=== PATIENT | female | born 1975 | race Caucasian/White ===

== ENCOUNTER → 2017-05-07 10:40 | Outpatient (CLI) | payer MEDICAID, SELFPAY ==
[2017-05-07 11:26] LABS: Amphetamine Urine VISTA NEGATIVE (<1000 ng/mL); Barbiturate Urine VISTA NEGATIVE (< 200 ng/mL); Benzodiazepine Urine VISTA NEGATIVE (< 200 ng/mL); Cocaine Urine VISTA NEGATIVE (< 300 ng/mL); Ecstacy Urine VISTA NEGATIVE (< 500 ng/mL); Methadone Urine VISTA NEGATIVE (< 300 ng/mL); PCP Urine VISTA NEGATIVE (< 25 ng/mL); THC Urine VISTA NEGATIVE (< 50 ng/mL); Vista UDS pH Range 5
== END ==
PROVIDERS: Family Provider Family Medicine; PCP Family Medicine; Visit Provider Anesthesiology
DX: F11.20 Opioid dependence, uncomplicated (principal)
CPT/HCPCS: 80307

== ENCOUNTER → 2017-12-31 11:20 | Outpatient (CLI) | payer MEDICAID, SELFPAY ==
[2017-12-31 12:26] LABS: Amphetamine Urine VISTA NEGATIVE (<1000 ng/mL); Barbiturate Urine VISTA NEGATIVE (< 200 ng/mL); Benzodiazepine Urine VISTA NEGATIVE (< 200 ng/mL); Cocaine Urine VISTA NEGATIVE (< 300 ng/mL); Ecstacy Urine VISTA NEGATIVE (< 500 ng/mL); Methadone Urine VISTA NEGATIVE (< 300 ng/mL); PCP Urine VISTA NEGATIVE (< 25 ng/mL); THC Urine VISTA NEGATIVE (< 50 ng/mL); Vista UDS pH Range 5
== END ==
PROVIDERS: Family Provider Family Medicine; PCP Family Medicine; Referring Provider Anesthesiology; Visit Provider Anesthesiology
DX: F11.20 Opioid dependence, uncomplicated (principal)
CPT/HCPCS: 80307

== ENCOUNTER 2018-01-20 14:30 | Outpatient (RCR) | payer MEDICAID, SELFPAY ==
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
--- NOTE | 2018-03-07 15:26 | HP.PTDCSUM ---
HP - PT D/C Summary It has been my pleasure to treat FARAZ TEJEDA under orders from Mayank Nolasco MD, for the diagnosis of CERVICAL DISC DEGENERATION ,CERVICAL DISC DISPLACEMENT MID CERVICAL,5-6 for a total of 6 visit(s). Discharge Date: 01/20/18 Please see the following information for a summary of their discharge status. - Subjective Subjective: Doing okay .pain about same. Plan for injections - Pain Right Neck Pain Intensity (Out of 10): 3 - Overall Improvement % Improvement: 40 - Objective Objective/Function: POSTURE: mild foward posture. CERVICICAL ROM: min loss. PALPATION: tender UT. NEURO: INTACT. MMT: 4/5 - Goals Goal 1:: Patient to be Independant with HEP Goal Progress: Progressing Goal 2:: Patient to be Independant with posture for ADL'S Goal Progress: Progressing Goal 3:: Patient decrease cervical pain by 50% or greater to improve function and ADL'S Goal Progress: Progressing Goal 4:: Patient to improve cervical ROM for function of recovery Goal Progress: Progressing Goal 5:: Patient alejandra ble to perform ADL's AND [place]SW[place] tasks with min limitations - Plan Plan: D/C EPIDURAL INJECTION - D/C Information Discharge Comments: RTD If there are questions or concerns regarding this patient's physical therapy, please feel free to call me at [phone]. Thank you for the referral of this patient. Sincerely, Benjamin Cook, PT,
== END 2018-01-20 19:00 | disposition home or self-care (01) ==
LOC: PT 14:30
PROVIDERS: Family Provider Family Medicine; PCP Family Medicine; Visit Provider Anesthesiology
DX: M50.320 Other cervical disc degeneration, mid-cervical region, unspecified level (principal); M50.220 Other cervical disc displacement, mid-cervical region, unspecified level; M50.222 Other cervical disc displacement at C5-C6 level
CPT/HCPCS: 97035; 97140; 97162

== ENCOUNTER 2018-03-11 13:11 | Day surgery (SDC) | payer MEDICAID, SELFPAY ==
[2018-03-11 13:45] VITALS: BP 126/65; PULSE 63; RESP 16; TEMP 36.4; O2SAT 100; BMI 45.2
--- NOTE | 2018-03-11 14:10 | RAD_ITS ---
PROCEDURE: FACET BLOCKS L4-S1. INDICATION: Female, 43 years old. Back pain. FLUOROSCOPY TIME (if supplied): (0:41) minutes/seconds RADIATION DOSAGE (If Supplied By Facility): CTDIvol = ( ) mGy, DLP = ( ) mGycm TECHNIQUE: Fluoroscopic assistance was provided to Dr. Nolasco. 3 intraprocedural fluoroscopic spot films are submitted. COMPARISON: 4 plain film views of the lumbar spine January 01, 2017; MRI lumbar spine March 26, 2017. FINDINGS: Spinal needles are seen passing through the soft tissues of the back to the areas of the right L3-4, L4-5, and L5-S1 facet complexes. RAD/Lumbar Spine 2 or 3 Views IMPRESSION: Fluoroscopic assistance for right facet blocks L4-S1. Correlation with procedural notes advised. Electronically Signed: Reg Holly MD at 16:32 EST , Service support ,
--- NOTE | 2018-03-11 14:45 | PCM.DC ---
- Discharge Diagnoses Current Active Problems: Lower back pain due to lumbar facet spondylosis Reason(s) for Visit for Discharge Instructions: Lumbar facet injection You will use the following diet at home:: No restrictions Your food should be the consistency of: Regular Your liquids should be the consistency of: Regular/Thin Discharge Activity: Return to Normal Activity May shower in (days): 1 May resume sexual activity in: No Restrictions Weight Bearing Status: Weight bearing as tolerated Call your doctor if your incision/area has: Continuous Slow Oozing, Sudden Increased Bleeding, Increased Pain/ Swelling, Increased Redness, Foul Smelling Discharge, Swelling at the incision site Call your doctor if you observe: Fever of 101 or Higher, Coldness, Increased Pain, Calf discomfort, Uncontrolled pain Suture Line Care: Avoid Pulling/Pushing, Avoid Pinching/Bending Remove Dressing in (days):: 1 Cleanse incision/area with: Soap & Water Allergies/Adverse Reactions: Allergies bupropion Allergy (Verified 04/22/17 10:03) Itching Medications to take at Discharge NIFEdipine [Procardia Xl] 30 mg PO QHS 12/14/14 Venlafaxine XR [Effexor Xr] mg PO BID 12/14/14 Atenolol [Tenormin (beta may)] 50 mg PO QHS 07/17/16 Clonazepam [Clonazepam Tab.Rapdis] 1 mg PO BID PRN 07/17/16 Omeprazole [Prilosec] 40 mg PO BID 07/17/16 Hydrocodone/Acetaminophen [[place] 5-325 Tablet] 1 each PO TID PRN 04/22/17 Primary Care Physician: Aftab Sevilla MD [Primary Care Provider] - Test Results: Test results from this visit will be discussed in further detail at your follow-up appointment, if applicable. Please Follow Up With: Mayank Nolasco MD
--- NOTE | 2018-03-11 15:00 | OP.PCM_ITS ---
Problem List (1) Spondylosis of lumbar region without myelopathy or radiculopathy Status: Acute (2) Spondylosis of lumbar region without myelopathy or radiculopathy Status: Acute Report of Operation Date of Procedure: 03/11/18 Pre-Operative Diagnosis: Lumbar facet spondylosis Post-Operative Diagnosis: Lumbar facet spondylosis Surgery/Procedure Performed:: Right L4-5, L5-S1 facet medial nerve branch block under fluoroscopy guidance Description of Surgical Findings:: Under sterile conditions. Patient placed in the prone position, pressure points were padded, patient was ready from the nursing and the anesthesia team. After identification of the side and the target area for the block under guided fluoroscopy, the entry site was marked with marking pen. I used Betadine for sterilization of the skin, sterile draping were applied. Using 25-gauge needle to infiltrate the skin with local anesthesia using preservative-free lidocaine 0.5% injected 2.5 mL at each site of entry. Using oblique fluoroscopy, accessed the right medial nerve branch supplying the [right] lumbar facets L4-5, L5-S1 using 22-gauge spinal needle. After confirmation of appropriate needle placement to the targeted area with AP and lateral fluoroscopy, injected 2.5 mL mixture of preservative-free Marcaine 0.5% and Kenalog [20] mg at each site. [place] was removed, pressure dressing were applied. Patient tolerated the procedure well and was taken to the recovery. Type of Anesthesia:: Local MAC, MAC, MAC/Supplemental Special Medications: Lidocaine 1% preservative-free. Bupivacaine 0.5% preservative-free. Kenalog preservative-free Description of Procedure: Right lumbar facet medial nerve branch block, see above - Complications None
[2018-03-11] MEDS: Triamcinolone Acetonide 40 MG/ML Vial (15:08)
[2018-03-11] MEDS: Bupivacaine 0.25% 30 ML Vial (15:08)
[2018-03-11 15:27] VITALS: BP 117/59; BP 126/55; PULSE 72; RESP 16; TEMP 36.6; O2SAT 100
[2018-03-11 15:32] VITALS: BP 119/71; BP 126/55; PULSE 68; RESP 16; O2SAT 100
[2018-03-11 15:36] VITALS: BP 119/73; BP 126/55; PULSE 67; RESP 16; O2SAT 99
[2018-03-11 15:40] VITALS: BP 126/55; BP 135/83; PULSE 69; RESP 16; TEMP 36.5; O2SAT 100
[2018-03-11 16:00] VITALS: BP 126/55
== END 2018-03-11 16:00 | disposition home or self-care (01) ==
LOC: SDC 13:11 → AC 13:21
PROVIDERS: Family Provider Family Medicine; PCP Family Medicine; Referring Provider Anesthesiology; Visit Provider Anesthesiology
PROC: 3E0T3BZ Introduction of Anesthetic Agent into Peripheral Nerves and Plexi, Percutaneous Approach (ICD-10-PCS; CPT 64493; principal; 2018-03-11 14:05)
DX: M47.816 Spondylosis without myelopathy or radiculopathy, lumbar region (principal); E66.1 Drug-induced obesity; Z79.891 Long term (current) use of opiate analgesic; M51.26 Other intervertebral disc displacement, lumbar region; G89.4 Chronic pain syndrome; M50.322 Other cervical disc degeneration at C5-C6 level; M50.122 Cervical disc disorder at C5-C6 level with radiculopathy; M50.222 Other cervical disc displacement at C5-C6 level; R05 Cough
CPT/HCPCS: 01935; 64493; 64483; 72100; J7120

== ENCOUNTER 2018-03-25 12:10 | Day surgery (SDC) | payer MEDICAID, SELFPAY ==
[2018-03-25 12:51] VITALS: BP 143/62; PULSE 86; RESP 16; TEMP 36.3; O2SAT 99; BMI 43.4
--- NOTE | 2018-03-25 13:20 | RAD_ITS ---
STUDY: X-RAY - LUMBAR SPINE REASON FOR EXAM: Female, 43 years old. Lumbar facet blocks. TECHNIQUE: 3 fluoroscopic spot view(s) of the lumbar spine were obtained. FLUOROSCOPY TIME: 21 seconds. COMPARISON: None FINDINGS: Fluoroscopic images were submitted, as radiology support for c-arm imaging in the operating room. This is not a diagnostic examination. Images are for documentation purposes only. RAD/Lumbar Spine 2 or 3 Views IMPRESSION: As above. Electronically Signed: Maxwell Escobedo MD at 1:03 EST , Service support ,
[2018-03-25] MEDS: Triamcinolone Acetonide 40 MG/ML Vial (14:23)
[2018-03-25] MEDS: Bupivacaine 0.25% 30 ML Vial (14:24)
[2018-03-25 14:33] VITALS: BP 127/68; BP 143/62; PULSE 68; RESP 16; TEMP 36; O2SAT 99
[2018-03-25 14:40] VITALS: BP 127/70; BP 143/62; PULSE 67; RESP 16; O2SAT 99
[2018-03-25 14:45] VITALS: BP 132/76; BP 143/62; PULSE 65; RESP 16; O2SAT 100
[2018-03-25 14:50] VITALS: BP 139/74; BP 143/62; PULSE 63; RESP 16; TEMP 36.2; O2SAT 100
--- NOTE | 2018-03-25 14:53 | DCINST_ITS ---
- Discharge Diagnoses Current Active Problems: Lower back pain due to lumbar facet spondylosis Reason(s) for Visit for Discharge Instructions: To receive left lumbar facet block for her lower back pain You will use the following diet at home:: No restrictions Your food should be the consistency of: Regular Discharge Activity: Return to Normal Activity Return to work on:: 03/30/18 May shower in (days): 1 May resume sexual activity in: No Restrictions Weight Bearing Status: Weight bearing as tolerated Call your doctor if your incision/area has: Continuous Slow Oozing, Sudden Increased Bleeding, Increased Pain/ Swelling, Foul Smelling Discharge Call your doctor if you observe: Coldness, Increased Pain, Uncontrolled pain Suture Line Care: Avoid Pulling/Pushing, Avoid Pinching/Bending Cleanse incision/area with: Soap & Water Allergies/Adverse Reactions: Allergies bupropion Allergy (Verified 03/25/18 12:46) Itching Medications to take at Discharge NIFEdipine [Procardia Xl] 30 mg PO QHS 12/14/14 Venlafaxine XR [Effexor Xr] 75 mg PO BID 12/14/14 Atenolol [Tenormin (beta may)] 50 mg PO QHS 07/17/16 Clonazepam [Clonazepam Tab.Rapdis] 1 mg PO DAILY 07/17/16 Omeprazole [Prilosec] 40 mg PO BID 07/17/16 Hydrocodone/Acetaminophen [[place] 5-325 Tablet] 1 each PO DAILY 04/22/17 Primary Care Physician: Aftab Sevilla MD [Primary Care Provider] - Test Results: Test results from this visit will be discussed in further detail at your follow- up appointment, if applicable. Please Follow Up With: Mayank Nolasco MD
--- NOTE | 2018-03-25 14:53 | PCM.OPRPT ---
Problem List (1) Spondylosis of lumbar region without myelopathy or radiculopathy Status: Acute (2) Spondylosis of lumbar region without myelopathy or radiculopathy Status: Chronic Report of Operation Date of Procedure: 03/25/18 Pre-Operative Diagnosis: Lumbar facet spondylosis Post-Operative Diagnosis: Same Surgery/Procedure Performed:: Left-sided lumbar facet medial nerve branch injection at the left L4-5-S1 under fluoroscopy guidance Description of Surgical Findings:: Left L4-5-S1 facets medial nerve branch injection Under sterile conditions. Patient placed in the prone position, pressure points were padded, patient was ready from the nursing and the anesthesia team. After identification of the side and the target area for the block under guided fluoroscopy, the entry site was marked with marking pen. I used Betadine for sterilization of the skin, sterile draping were applied. Using 25-gauge needle to infiltrate the skin with local anesthesia using preservative-free lidocaine 0.5% injected 2.5 mL at each site of entry. Using oblique fluoroscopy, accessed the right medial nerve branch supplying the left lumbar facets L4-5, L5-S1 using 22-gauge spinal needle. After confirmation of appropriate needle placement to the targeted area with AP and lateral fluoroscopy, injected 2.5 mL mixture of preservative-free Marcaine 0.5% and Kenalog [20] mg at each site. [place] was removed, pressure dressing were applied. Patient tolerated the procedure well and was taken to the recovery. Type of Anesthesia:: Local MAC Special Medications: Kenalog 80 mg. Bupivacaine 0.5 preservative-free. Lidocaine 1% preservative-free Specimen's removed: None Estimated Blood Loss (mL): None Description of Procedure: See above - Complications None
[2018-03-25 15:03] VITALS: BP 143/62
== END 2018-03-25 15:35 | disposition home or self-care (01) ==
LOC: SDC 12:11 → AC 12:13
PROVIDERS: Family Provider Family Medicine; PCP Family Medicine; Referring Provider Anesthesiology; Visit Provider Anesthesiology
PROC: 3E0T3BZ Introduction of Anesthetic Agent into Peripheral Nerves and Plexi, Percutaneous Approach (ICD-10-PCS; CPT 64484; principal; 2018-03-25 13:15)
DX: M47.816 Spondylosis without myelopathy or radiculopathy, lumbar region (principal); K21.9 Gastro-esophageal reflux disease without esophagitis; I10 Essential (primary) hypertension
CPT/HCPCS: 64484; 64483; 72100; J7120

== ENCOUNTER 2018-07-08 12:09 | Day surgery (SDC) | payer MEDICAID, SELFPAY ==
[2018-07-08 12:47] VITALS: BP 128/76; PULSE 66; RESP 18; TEMP 36.9; O2SAT 100; BMI 44.8
--- NOTE | 2018-07-08 13:45 | RAD_ITS ---
HISTORY: LUMBAR FACET BLOCK L4-S1 EXAM/TECHNIQUE: XR Spine Lumbar 2 or 3 Views: 3 views. COMPARISON: None. FINDINGS: # of images incl. paperwork: 4 3 fluoroscopic images from lumbar facet block procedure. [place] are seen extending toward the left facets of L4, L5 and S1. RAD/Lumbar Spine 2 or 3 Views IMPRESSION: Images from left facet block L4 S1. No apparent complication. at 2211 Reported and signed by: Otis Caceres MD Electronically Signed: Otis Caceres, at 22:10 EDT Tel , Service support ,
--- NOTE | 2018-07-08 14:07 | DCINST_ITS ---
- Discharge Diagnoses Current Active Problems: Lumbar spine axial pain due to lumbar facets arthritis and lumbar facet spondylosis Reason(s) for Visit for Discharge Instructions: Lumbar facets injection at the level of the right L4-5-S1 under fluoroscopy guidance You will use the following diet at home:: No restrictions Your food should be the consistency of: Regular Discharge Activity: Return to Normal Activity Return to work on:: 07/11/18 May shower in (days): 1 May resume sexual activity in: No Restrictions Weight Bearing Status: Weight bearing as tolerated, Toe touch weight bearing Call your doctor if your incision/area has: Continuous Slow Oozing, Sudden Increased Bleeding, Increased Pain/ Swelling, Increased Redness, Foul Smelling Discharge, Swelling at the incision site Call your doctor if you observe: Fever of 101 or Higher, Coldness, Increased Pain, Uncontrolled pain Suture Line Care: Avoid Pulling/Pushing, Avoid Pinching/Bending Remove Dressing in (days):: 1 Cleanse incision/area with: Soap & Water Allergies/Adverse Reactions: Allergies bupropion Allergy (Verified 07/08/18 12:54) Itching Medications to take at Discharge NIFEdipine [Procardia Xl] 30 mg PO QHS 12/14/14 Venlafaxine XR [Effexor Xr] 300 mg PO QHS 12/14/14 Atenolol [Tenormin (beta may)] 50 mg PO QHS 07/17/16 Clonazepam [Clonazepam Tab.Rapdis] 1 mg PO DAILY 07/17/16 Omeprazole [Prilosec] 40 mg PO BID 07/17/16 Hydrocodone/Acetaminophen [[place] 5-325 Tablet] 2 each PO QODAY 04/22/17 Primary Care Physician: Aftab Sevilla MD [Primary Care Provider] - Test Results: Test results from this visit will be discussed in further detail at your follow- up appointment, if applicable. Please Follow Up With: Mayank Nolasco MD
--- NOTE | 2018-07-08 14:07 | PCM.OPRPT ---
Problem List (1) Spondylosis of lumbar region without myelopathy or radiculopathy Status: Acute (2) Spondylosis of lumbar region without myelopathy or radiculopathy Status: Chronic Report of Operation Date of Procedure: 07/08/18 Pre-Operative Diagnosis: Lumbar facet joint spondylosis and lumbar facet arthropathy Post-Operative Diagnosis: Same Surgery/Procedure Performed:: Right-sided lumbar facets medial nerve branch injection at the level of the lumbar facets L4-5-S1 under fluoroscopy guidance Description of Surgical Findings:: Under sterile conditions. Patient placed in the prone position, pressure points were padded, patient was ready from the nursing and the anesthesia team. After identification of the side and the target area for the block under guided fluoroscopy, the entry site was marked with marking pen. I used Betadine for sterilization of the skin, sterile draping were applied. Using 25-gauge needle to infiltrate the skin with local anesthesia using preservative-free lidocaine 0.5% injected 2.5 mL at each site of entry. Using oblique fluoroscopy, accessed the right medial nerve branch supplying the [right] lumbar facets L4-5, L5-S1 using 22-gauge spinal needle. After confirmation of appropriate needle placement to the targeted area with AP and lateral fluoroscopy, injected 2.5 mL mixture of preservative-free Marcaine 0.5% and Kenalog [25] mg at each site. Total of 3 needles used and 3 sites injected for the medial nerve branch supplying the lumbar facets L4-5-S1 on the right side. [place] was removed, pressure dressing were applied. Patient tolerated the procedure well and was taken to the recovery. Type of Anesthesia:: Local MAC, MAC - Admit VTE Documentation VTE Pharm Prophylaxis ordered?: No
[2018-07-08] MEDS: Bupivacaine 0.25% 30 ML Vial (14:16)
[2018-07-08] MEDS: Triamcinolone Acetonide 40 MG/ML Vial ×2 (14:16)
[2018-07-08 14:25] VITALS: BP 106/59; BP 128/76; PULSE 58; RESP 18; TEMP 36.7; O2SAT 98
[2018-07-08 14:30] VITALS: BP 112/62; BP 128/76; PULSE 57; RESP 18; O2SAT 98
[2018-07-08 14:35] VITALS: BP 116/60; BP 128/76; PULSE 55; RESP 18; O2SAT 100
[2018-07-08 14:40] VITALS: BP 125/71; BP 128/76; PULSE 55; RESP 18; TEMP 36.6; O2SAT 100
[2018-07-08 14:56] VITALS: BP 128/76
== END 2018-07-08 15:04 | disposition home or self-care (01) ==
LOC: SDC 12:10 → AC 12:11
PROVIDERS: Family Provider Family Medicine; PCP Family Medicine; Referring Provider Anesthesiology; Visit Provider Anesthesiology
PROC: 3E0T3BZ Introduction of Anesthetic Agent into Peripheral Nerves and Plexi, Percutaneous Approach (ICD-10-PCS; CPT 64493; principal; 2018-07-08 13:40)
DX: M47.816 Spondylosis without myelopathy or radiculopathy, lumbar region (principal); G89.4 Chronic pain syndrome; M51.26 Other intervertebral disc displacement, lumbar region; M50.122 Cervical disc disorder at C5-C6 level with radiculopathy; F32.9 Major depressive disorder, single episode, unspecified; I10 Essential (primary) hypertension; M25.569 Pain in unspecified knee; M25.511 Pain in right shoulder; E66.1 Drug-induced obesity; Z68.41 Body mass index [BMI] 40.0-44.9, adult; Z79.891 Long term (current) use of opiate analgesic; Z79.899 Other long term (current) drug therapy
CPT/HCPCS: 64493; 64494; 64483; 72100; J7120

== ENCOUNTER 2018-07-15 14:30 | Outpatient (RCR) | payer MEDICAID, SELFPAY ==
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
--- NOTE | 2018-07-15 15:10 | HP.PTDCSUM ---
HP - PT D/C Summary It has been my pleasure to treat FARAZ TEJEDA under orders from Mayank Nolasco MD, for the diagnosis of NECK AND BACK PAIN. for a total of 5 visit(s). Discharge Date: 07/15/18 Please see the following information for a summary of their discharge status. - Subjective Subjective: PATIENT REPORTS SHE HAS TRIED TO FOLLOW ALL INSTRUCTIONS GIVEN BUT IT HASN'T SEEMED TO HELP ANYTHING. PATIENT DOES NOT WANT TO CONTINUE PT STATING I DON'T SEE NO REASON FOR IT - Pain R side of neck Pain Intensity (Out of 10): 5 LB Pain Intensity (Out of 10): 4 - Objective Objective/Function: UPON EXAM, THERE ARE NO SIGNIFICANT CHANGES SINCE INITIAL EVAL. PATIENT IS INDEP WITH A HEP THAT SHE CAN TOLERATE THOUGH. SHE DID BETTER WITH SITTING AND STANDING EX'S VS LYING. - Goals Goal 1:: DECREASE C/O NECK AND BACK PAIN Goal Progress: Not Progressing Goal 2:: IMPROVE SITTING, STANDING, WALKING READING, DRIVING, SLEEP, WORK AND RECREATIONAL FUNCTION Goal Progress: Not Progressing Goal 3:: INSTRUCT IN PROPHYLAXIS Goal Progress: Progressing - Plan Plan: D/C DUE TO LACK OF IMPROVEMENT. - D/C Information If there are questions or concerns regarding this patient's physical therapy, please feel free to call me at [phone]. Thank you for the referral of this patient. Sincerely, Minda Weber, PT, Cert MDT
== END 2018-07-15 19:00 | disposition home or self-care (01) ==
LOC: PT 14:30
PROVIDERS: Family Provider Family Medicine; PCP Family Medicine; Referring Provider Anesthesiology; Visit Provider Anesthesiology
DX: M54.2 Cervicalgia (principal); M54.5 Low back pain; M51.36 Other intervertebral disc degeneration, lumbar region
CPT/HCPCS: 97110; 97162; 97530

== ENCOUNTER 2018-07-22 11:27 | Day surgery (SDC) | payer MEDICAID, SELFPAY ==
[2018-07-22 12:17] VITALS: BP 155/88; PULSE 66; RESP 16; TEMP 36.7; O2SAT 100; BMI 43.9
--- NOTE | 2018-07-22 12:45 | RAD_ITS ---
PROCEDURE: Lumbar facet left side block L4-S1. DATE OF EXAMINATION: July 22, 2018. INDICATION: Female, 43 years old. Lumbar spine facet pain. PHYSICIAN: Gaurav FLUOROSCOPY TIME (if supplied): (0:12) minutes/seconds RADIATION DOSAGE (If Supplied By Facility): CTDIvol = ( ) mGy, DLP = ( ) mGycm CONSENT: The risks, benefits and alternatives to the procedure were explained to the patient, and the patient agreed to the procedure and signed the consent. PROCEDURE/TECHNIQUE 3, intraprocedural, fluoroscopic spot images of the lower lumbar spine. Images demonstrate needle placements with tips in appropriate location. A small amount of iodinated contrast may have been injected to validate needle tip placement. No significant incidental findings. RAD/Lumbar Spine 2 or 3 Views IMPRESSION: 3, intraprocedural, fluoroscopic spot images of the lower lumbar spine. Images demonstrate needle placements with tips in appropriate location. A small amount of iodinated contrast may have been injected to validate needle tip placement. No significant incidental findings. Comment: Fluoroscopy services provided for clinical procedure. Please refer to operating physician's procedure note for additional detail. Electronically Signed: Ajay Zamorano MD at 10:17 EDT , Service support ,
--- NOTE | 2018-07-22 14:13 | PCM.DC ---
- Discharge Diagnoses Current Active Problems: Lower back pain Reason(s) for Visit for Discharge Instructions: Lumbar facet joint injection L4-5-S1 to the left side You will use the following diet at home:: No restrictions Your food should be the consistency of: Regular Discharge Activity: Return to Normal Activity, No Restrictions Return to work on:: 07/25/18 May shower in (days): 1 May resume sexual activity in: No Restrictions Weight Bearing Status: Weight bearing as tolerated, Toe touch weight bearing Call your doctor if your incision/area has: Continuous Slow Oozing, Sudden Increased Bleeding, Increased Pain/ Swelling, Increased Redness, Foul Smelling Discharge, Swelling at the incision site Call your doctor if you observe: Fever of 101 or Higher, Coldness, Increased Pain, Calf discomfort, Uncontrolled pain Suture Line Care: Avoid Pulling/Pushing, Avoid Pinching/Bending Remove Dressing in (days):: 1 Cleanse incision/area with: Soap & Water Instructions: What Is Osteoarthritis?, Living with Osteoarthritis, Understanding Osteoarthritis, Osteoarthritis: Common Sites, Osteoarthritis: Coping with Pain, Osteoarthritis Medication, Osteoarthritis: Injections or Surgery, Osteoarthritis: Protecting Your Joints, Osteoarthritis: Exercise Allergies/Adverse Reactions: Allergies bupropion Allergy (Verified 07/08/18 12:54) Itching Medications to take at Discharge NIFEdipine [Procardia Xl] 30 mg PO QHS 12/14/14 Venlafaxine XR [Effexor Xr] 300 mg PO QHS 12/14/14 Atenolol [Tenormin (beta may)] 50 mg PO QHS 07/17/16 Clonazepam [Clonazepam Tab.Rapdis] 1 mg PO DAILY 07/17/16 Omeprazole [Prilosec] 40 mg PO BID 07/17/16 Hydrocodone/Acetaminophen [[place] 5-325 Tablet] 2 each PO QODAY 04/22/17 Primary Care Physician: Aftab Sevilla MD [Primary Care Provider] - Test Results: Test results from this visit will be discussed in further detail at your follow-up appointment, if applicable. Please Follow Up With: Mayank Nolasco MD
--- NOTE | 2018-07-22 14:16 | DCINST_ITS ---
- Discharge Diagnoses Current Active Problems: Lower back pain Reason(s) for Visit for Discharge Instructions: Lumbar facet joint injection L4-5-S1 to the left side You will use the following diet at home:: No restrictions Your food should be the consistency of: Regular Discharge Activity: Return to Normal Activity, No Restrictions Return to work on:: 07/25/18 May shower in (days): 1 May resume sexual activity in: No Restrictions Weight Bearing Status: Weight bearing as tolerated, Toe touch weight bearing Call your doctor if your incision/area has: Continuous Slow Oozing, Sudden Increased Bleeding, Increased Pain/ Swelling, Increased Redness, Foul Smelling Discharge, Swelling at the incision site Call your doctor if you observe: Fever of 101 or Higher, Coldness, Increased Pain, Calf discomfort, Uncontrolled pain Suture Line Care: Avoid Pulling/Pushing, Avoid Pinching/Bending Remove Dressing in (days):: 1 Cleanse incision/area with: Soap & Water Instructions: What Is Osteoarthritis?, Living with Osteoarthritis, Understanding Osteoarthritis, Osteoarthritis: Common Sites, Osteoarthritis: Coping with Pain, Osteoarthritis Medication, Osteoarthritis: Injections or Surgery, Osteoarthritis: Protecting Your Joints, Osteoarthritis: Exercise Allergies/Adverse Reactions: Allergies bupropion Allergy (Verified 07/08/18 12:54) Itching Medications to take at Discharge NIFEdipine [Procardia Xl] 30 mg PO QHS 12/14/14 Venlafaxine XR [Effexor Xr] 300 mg PO QHS 12/14/14 Atenolol [Tenormin (beta may)] 50 mg PO QHS 07/17/16 Clonazepam [Clonazepam Tab.Rapdis] 1 mg PO DAILY 07/17/16 Omeprazole [Prilosec] 40 mg PO BID 07/17/16 Hydrocodone/Acetaminophen [[place] 5-325 Tablet] 2 each PO QODAY 04/22/17 Primary Care Physician: Aftab Sevilla MD [Primary Care Provider] - Test Results: Test results from this visit will be discussed in further detail at your follow- up appointment, if applicable. Please Follow Up With: Mayank Nolasco MD
[2018-07-22] MEDS: Bupivacaine 0.25% 30 ML Vial (14:25)
[2018-07-22] MEDS: Triamcinolone Acetonide 40 MG/ML Vial ×2 (14:25)
--- NOTE | 2018-07-22 14:25 | PCM.OPRPT ---
Problem List (1) Low back pain Status: Acute (2) Low back pain Status: Acute (3) Spondylosis of lumbar region without myelopathy or radiculopathy Status: Acute (4) Spondylosis of lumbar region without myelopathy or radiculopathy Status: Chronic Report of Operation Date of Procedure: 07/22/18 Pre-Operative Diagnosis: Lumbar facet spondylosis and lumbar facet joints arthritis Post-Operative Diagnosis: Same Surgery/Procedure Performed:: Left-sided lumbar facets medial nerve branch block at the level of the lumbar facets L4-5 and L5-S1 under fluoroscopy guidance Description of Surgical Findings:: Insert facet blocks Under sterile conditions. Patient placed in the prone position, pressure points were padded, patient was ready from the nursing and the anesthesia team. After identification of the side and the target area for the block at the left lumbar facet region under guided fluoroscopy, the entry site was marked with marking pen. I used Betadine for sterilization of the skin, sterile draping were applied. Using 25-gauge needle to infiltrate the skin with local anesthesia using preservative-free lidocaine 0.5% injected 2.5 mL at each site of entry. Using oblique fluoroscopy, accessed the left medial nerve branch supplying the left lumbar facets left L4-5, L5-S1 using 22-gauge spinal needle. After confirmation of appropriate needle placement to the targeted area with AP and lateral fluoroscopy, injected 2.5 mL mixture of preservative-free Marcaine 0.5% and Kenalog [25] mg at each site. [place] was removed, pressure dressing were applied. Patient tolerated the procedure well and was taken to the recovery. Type of Anesthesia:: Local MAC Estimated Blood Loss (mL): None Description of Procedure: See above - Complications None
[2018-07-22 14:30] VITALS: BP 105/53; BP 155/88; PULSE 61; RESP 16; TEMP 36.5; O2SAT 97
[2018-07-22 14:35] VITALS: BP 113/62; BP 155/88; PULSE 59; RESP 16; O2SAT 96
[2018-07-22 14:40] VITALS: BP 120/69; BP 155/88; PULSE 52; RESP 16; O2SAT 95
[2018-07-22 14:45] VITALS: BP 127/74; BP 155/88; PULSE 58; RESP 16; TEMP 36.7; O2SAT 100
[2018-07-22 15:01] VITALS: BP 155/88
== END 2018-07-22 15:27 | disposition home or self-care (01) ==
LOC: SDC 11:28 → AC 11:29
PROVIDERS: Family Provider Family Medicine; PCP Family Medicine; Referring Provider Anesthesiology; Visit Provider Anesthesiology
PROC: 3E0T3BZ Introduction of Anesthetic Agent into Peripheral Nerves and Plexi, Percutaneous Approach (ICD-10-PCS; CPT 64520; principal; 2018-07-22 12:40)
DX: M47.816 Spondylosis without myelopathy or radiculopathy, lumbar region (principal); G89.4 Chronic pain syndrome; M51.26 Other intervertebral disc displacement, lumbar region; M50.122 Cervical disc disorder at C5-C6 level with radiculopathy; M25.511 Pain in right shoulder; E66.1 Drug-induced obesity; R05 Cough; M79.10 Myalgia, unspecified site; K21.9 Gastro-esophageal reflux disease without esophagitis; F32.9 Major depressive disorder, single episode, unspecified; Z68.41 Body mass index [BMI] 40.0-44.9, adult
CPT/HCPCS: 64520 ×2; 64483; 72100; J7120; J3490

== ENCOUNTER → 2018-11-25 12:36 | Outpatient (CLI) | payer MEDICAID, SELFPAY ==
[2018-11-25 13:52] LABS: Amphetamine Urine VISTA NEGATIVE (<1000 ng/mL); Barbiturate Urine VISTA NEGATIVE (< 200 ng/mL); Benzodiazepine Urine VISTA POSITIVE (< 200 ng/mL); Cocaine Urine VISTA NEGATIVE (< 300 ng/mL); Ecstacy Urine VISTA NEGATIVE (< 500 ng/mL); Methadone Urine VISTA NEGATIVE (< 300 ng/mL); THC Urine VISTA NEGATIVE (< 50 ng/mL); Vista UDS pH Range 6
[2018-11-25 13:53] LABS: PCP Urine VISTA NEGATIVE (< 25 ng/mL)
== END ==
PROVIDERS: Family Provider Family Medicine; PCP Family Medicine; Referring Provider Anesthesiology; Visit Provider Anesthesiology
DX: F11.20 Opioid dependence, uncomplicated (principal)
CPT/HCPCS: 80307

== ENCOUNTER 2018-12-30 10:39 | Day surgery (SDC) | payer MEDICAID, SELFPAY ==
[2018-12-30 11:02] VITALS: BP 154/89; PULSE 55; RESP 18; TEMP 36.8; O2SAT 100; BMI 41.6
[2018-12-30] MEDS: Lactated Ringers 1,000 ML 100 ML IV (11:17)
--- NOTE | 2018-12-30 12:44 | DCINST_ITS ---
- Discharge Diagnoses Current Active Problems: Lumbar spine back pain due to lumbar facet arthritis Reason(s) for Visit for Discharge Instructions: Right sided lumbar facet blocks at the level of the L3-4 and L4-5 You will use the following diet at home:: No restrictions Your food should be the consistency of: Regular Discharge Activity: Return to Normal Activity, No Restrictions May shower in (days): 1 May resume sexual activity in: No Restrictions Weight Bearing Status: Weight bearing as tolerated, Full weight bearing, Toe touch weight bearing, No weight bearing, - Call your doctor if your incision/area has: Continuous Slow Oozing, Sudden Increased Bleeding, Increased Pain/ Swelling, Increased Redness, Foul Smelling Discharge, Swelling at the incision site Call your doctor if you observe: Fever of 101 or Higher, Coldness, Increased Pain, Uncontrolled pain Suture Line Care: Avoid Pulling/Pushing, Avoid Pinching/Bending Remove Dressing in (days):: 1 Cleanse incision/area with: Soap & Water Instructions: What Is Osteoarthritis?, Understanding Osteoarthritis, Osteoarthritis: Coping with Pain, Living with Osteoarthritis, Osteoarthritis: Common Sites, Osteoarthritis: Exercise, Osteoarthritis: Tips for Daily Living, Osteoarthritis: Managing Pain Allergies/Adverse Reactions: Allergies bupropion Allergy (Verified 12/30/18 10:58) Itching Medications to take at Discharge NIFEdipine [Procardia Xl] 30 mg PO QHS 12/14/14 Venlafaxine XR [Effexor Xr] 300 mg PO QHS 12/14/14 Atenolol [Tenormin (beta may)] 50 mg PO QHS 07/17/16 Clonazepam [Clonazepam Tab.Rapdis] 1 mg PO DAILY 07/17/16 Omeprazole [Prilosec] 40 mg PO BID 07/17/16 Hydrocodone/Acetaminophen [[place] 5-325 Tablet] 2 each PO QODAY 04/22/17 Primary Care Physician: Aftab Sevilla MD [Primary Care Provider] - Test Results: Test results from this visit will be discussed in further detail at your follow- up appointment, if applicable. Please Follow Up With: Mayank Nolasco MD
--- NOTE | 2018-12-30 12:45 | PCM.OPRPT ---
Problem List (1) Low back pain Status: Acute (2) Low back pain Status: Acute (3) Spondylosis of lumbar region without myelopathy or radiculopathy Status: Acute (4) Spondylosis of lumbar region without myelopathy or radiculopathy Status: Chronic Report of Operation Date of Procedure: 12/30/18 Pre-Operative Diagnosis: Lumbar facets arthritis lumbar facet spondylosis Post-Operative Diagnosis: Same Surgery/Procedure Performed:: Right sided lumbar facet blocks at the level of the right side L3 [id number] Description of Surgical Findings:: Under sterile conditions. Patient placed in the prone position, pressure points were padded, patient was ready from the nursing and the anesthesia team. After identification of the side and the target area for the block under guided fluoroscopy, the entry site was marked with marking pen. I used Betadine for sterilization of the skin, sterile draping were applied. Using 25-gauge needle to infiltrate the skin with local anesthesia using preservative-free lidocaine 0.5% injected 2.5 mL at each site of entry. Using oblique fluoroscopy, accessed the right medial nerve branch supplying the [right] lumbar facets L3-4, L4-5 using 22-gauge spinal needle. After confirmation of appropriate needle placement to the targeted area with AP and lateral fluoroscopy, injected 2.5 mL mixture of preservative-free Marcaine 0.5% and Kenalog [20] mg at each site. [place] was removed, pressure dressing were applied. Patient tolerated the procedure well and was taken to the recovery. Type of Anesthesia:: MAC Special Medications: Bupivacaine 0.5%, lidocaine for local anesthesia 1%, Kenalog 80 mg - Complications None
--- NOTE | 2018-12-30 12:50 | RAD_ITS ---
STUDY: X-RAY - LUMBAR SPINE REASON FOR EXAM: Female, 43 years old. Facet block TECHNIQUE: 3 intraoperative view(s) of the lumbar spine were obtained. COMPARISON: None FINDINGS: 3 intraoperative views were performed as the patient has undergone blocks from L3 to L5. No intraoperative complication noted RAD/Lumbar Spine 2 or 3 Views IMPRESSION: L3-L5 blocks, intraoperative complications. Electronically Signed: Reg Ahuja MD at 15:54 EDT , Service support ,
[2018-12-30] MEDS: Triamcinolone Acetonide 40 MG/ML Vial (12:56)
[2018-12-30] MEDS: Bupivacaine 0.25% 30 ML Vial (12:59)
[2018-12-30 13:10] VITALS: BP 154/89; BP 155/85; PULSE 45; RESP 16; TEMP 36.4; O2SAT 97
[2018-12-30 13:15] VITALS: BP 154/89; BP 162/81; PULSE 45; RESP 16; O2SAT 97
[2018-12-30 13:20] VITALS: BP 154/89; BP 164/80; PULSE 45; RESP 16; O2SAT 98
[2018-12-30 13:25] VITALS: BP 154/89; BP 165/78; PULSE 45; RESP 16; TEMP 36.1; O2SAT 97
[2018-12-30 13:44] VITALS: BP 154/89
== END 2018-12-30 13:46 | disposition home or self-care (01) ==
LOC: SDC 10:40 → AC 10:41
PROVIDERS: Family Provider Family Medicine; PCP Family Medicine; Referring Provider Anesthesiology; Visit Provider Anesthesiology
PROC: 3E0T3BZ Introduction of Anesthetic Agent into Peripheral Nerves and Plexi, Percutaneous Approach (ICD-10-PCS; CPT 64493; principal; 2018-12-30 11:40)
DX: M47.816 Spondylosis without myelopathy or radiculopathy, lumbar region (principal); K21.9 Gastro-esophageal reflux disease without esophagitis; F32.9 Major depressive disorder, single episode, unspecified; I10 Essential (primary) hypertension
CPT/HCPCS: 01935; 64493; 64494; 64483; 72100; J7120

== ENCOUNTER 2019-01-06 11:33 | Day surgery (SDC) | payer MEDICAID, SELFPAY ==
[2019-01-06] VITALS (7 sets, daily range): BP systolic 101–114; BP diastolic 63–67; PULSE 50–54; RESP 14–16; TEMP 36.2–36.4; O2SAT 95–98; BMI 40.3
[2019-01-06] MEDS: Lactated Ringers 1,000 ML 100 ML IV (12:29)
--- NOTE | 2019-01-06 13:30 | RAD_ITS ---
STUDY: X-RAY - LUMBAR SPINE REASON FOR EXAM: Female, 43 years old. Facet block at L3-S1 TECHNIQUE: 5 intraoperative view(s) of the lumbar spine were obtained. COMPARISON: None FINDINGS: Localizing images demonstrate needles over the left facet of L3-S1. RAD/L/S Spine Min 4 Views IMPRESSION: Localizing images for facet block of the lumbar spine. Electronically Signed: Feroz Whitehead DO at 23:24 EDT Tel [phone], Service support ,
--- NOTE | 2019-01-06 14:14 | DCINST_ITS ---
- Discharge Diagnoses Current Active Problems: Her back pain due to lumbar facet spondylosis Reason(s) for Visit for Discharge Instructions: Left lumbar facet block You will use the following diet at home:: No restrictions Your food should be the consistency of: Regular Discharge Activity: Return to Normal Activity May shower in (days): 1 May resume sexual activity in: No Restrictions Weight Bearing Status: Weight bearing as tolerated Call your doctor if your incision/area has: Continuous Slow Oozing, Sudden Increased Bleeding, Increased Pain/ Swelling, Increased Redness, Foul Smelling Discharge, Swelling at the incision site Call your doctor if you observe: Fever of 101 or Higher, Coldness, Increased Pain, Calf discomfort, Uncontrolled pain Suture Line Care: Avoid Pulling/Pushing, Avoid Pinching/Bending Remove Dressing in (days):: 1 Cleanse incision/area with: Soap & Water Allergies/Adverse Reactions: Allergies bupropion Allergy (Verified 12/30/18 10:58) Itching Medications to take at Discharge NIFEdipine [Procardia Xl] 30 mg PO QHS 12/14/14 Venlafaxine XR [Effexor Xr] 300 mg PO QHS 12/14/14 Atenolol [Tenormin (beta may)] 50 mg PO QHS 07/17/16 Clonazepam [Clonazepam Tab.Rapdis] 1 mg PO DAILY 07/17/16 Omeprazole [Prilosec] 40 mg PO BID 07/17/16 Hydrocodone/Acetaminophen [[place] 5-325 Tablet] 2 each PO QODAY 04/22/17 Primary Care Physician: Aftab Sevilla MD [Primary Care Provider] - Test Results: Test results from this visit will be discussed in further detail at your follow- up appointment, if applicable. Please Follow Up With: Mayank Nolasco MD
--- NOTE | 2019-01-06 14:15 | PCM.OPRPT ---
Problem List (1) Low back pain Status: Acute (2) Low back pain Status: Acute (3) Spondylosis of lumbar region without myelopathy or radiculopathy Status: Acute (4) Spondylosis of lumbar region without myelopathy or radiculopathy Status: Chronic Report of Operation Date of Procedure: 01/06/19 Pre-Operative Diagnosis: Lumbar facet spondylosis Post-Operative Diagnosis: Lumbar facet spondylosis Surgery/Procedure Performed:: Left-sided lumbar facet medial nerve branch blocks at the level of the L3-4 L4-5 L5-S1 under fluoroscopy guidance Description of Surgical Findings:: Under sterile conditions. Patient placed in the prone position, pressure points were padded, patient was ready from the nursing and the anesthesia team. After identification of the side and the target area for the block under guided fluoroscopy, the entry site was marked with marking pen. I used Betadine for sterilization of the skin, sterile draping were applied. Using 25-gauge needle to infiltrate the skin with local anesthesia using preservative-free lidocaine 0.5% injected 2.5 mL at each site of entry. Using oblique fluoroscopy, accessed the right medial nerve branch supplying the left lumbar facets L3-4, L4-5, L5-S1 using 22-gauge spinal needle. After confirmation of appropriate needle placement to the targeted area with AP and lateral fluoroscopy, injected 2.5 mL mixture of preservative-free Marcaine 0.5% and Kenalog [20] mg at each site. [place] was removed, pressure dressing were applied. Patient tolerated the procedure well and was taken to the recovery. Type of Anesthesia:: MAC - Complications None
[2019-01-06] MEDS: Triamcinolone Acetonide 40 MG/ML Vial (14:24)
[2019-01-06] MEDS: Bupivacaine 0.25% 30 ML Vial (14:26)
== END 2019-01-06 15:30 | disposition home or self-care (01) ==
LOC: SDC 11:33 → ACINP 11:35 → AC 11:45
PROVIDERS: Family Provider Family Medicine; PCP Family Medicine; Referring Provider Anesthesiology; Visit Provider Anesthesiology
PROC: 3E0T3BZ Introduction of Anesthetic Agent into Peripheral Nerves and Plexi, Percutaneous Approach (ICD-10-PCS; CPT 64493; principal; 2019-01-06 13:25)
DX: M47.816 Spondylosis without myelopathy or radiculopathy, lumbar region (principal); F41.9 Anxiety disorder, unspecified; F32.9 Major depressive disorder, single episode, unspecified; K21.9 Gastro-esophageal reflux disease without esophagitis; Z79.899 Other long term (current) drug therapy; I10 Essential (primary) hypertension; G89.29 Other chronic pain; J45.909 Unspecified asthma, uncomplicated; E11.9 Type 2 diabetes mellitus without complications; I25.10 Atherosclerotic heart disease of native coronary artery without angina pectoris
CPT/HCPCS: 64493; 64494; 64495; 64483; 72110; J7120

== ENCOUNTER 2019-02-03 12:22 | Day surgery (SDC) | payer MEDICAID, SELFPAY ==
[2019-01-06 12:14] VITALS: BMI 40.3
[2019-02-03] VITALS (7 sets, daily range): BP systolic 120–138; BP diastolic 71–89; PULSE 52–61; RESP 16; TEMP 36.3–36.7; O2SAT 97–100; BMI 39.4
[2019-02-03] MEDS: Lactated Ringers 1,000 ML 100 ML IV (13:02)
--- NOTE | 2019-02-03 14:05 | RAD_ITS ---
STUDY: X-RAY - CERVICAL SPINE REASON FOR EXAM: Female, 44 years old. Cervical epidural block at C6-7 TECHNIQUE: 4 view(s) of the cervical spine were obtained. COMPARISON: None FINDINGS: Fluoroscopic spot images demonstrate needle localization over the C6 level. RAD/Spine 1 View Any Level IMPRESSION: Needle localization directly over the C6 level. Electronically Signed: Fátima Todd MD at 15:42 EDT , Service support ,
--- NOTE | 2019-02-03 14:09 | DCINST_ITS ---
- Discharge Diagnoses Current Active Problems: Cervical spine pain, cervical radiculopathy Reason(s) for Visit for Discharge Instructions: Receiving cervical epidural injection for her neck pain You will use the following diet at home:: No restrictions Your food should be the consistency of: Regular Discharge Activity: Return to Normal Activity, No Restrictions May shower in (days): 1 May resume sexual activity in: No Restrictions Weight Bearing Status: Weight bearing as tolerated Call your doctor if your incision/area has: Continuous Slow Oozing, Sudden Increased Bleeding, Increased Pain/ Swelling, Increased Redness, Foul Smelling Discharge, Swelling at the incision site Call your doctor if you observe: Fever of 101 or Higher, Coldness, Increased Pain, Numbness or Tingling, Calf discomfort, Uncontrolled pain Suture Line Care: Avoid Pulling/Pushing, Avoid Pinching/Bending Remove Dressing in (days):: 1 Cleanse incision/area with: Soap & Water Allergies/Adverse Reactions: Allergies bupropion Allergy (Verified 02/03/19 12:40) Itching Medications to take at Discharge NIFEdipine [Procardia Xl] 30 mg PO QHS 12/14/14 Venlafaxine XR [Effexor Xr] 300 mg PO QHS 12/14/14 Atenolol [Tenormin (beta may)] 50 mg PO QHS 07/17/16 Clonazepam [Clonazepam Tab.Rapdis] 1 mg PO DAILY 07/17/16 Omeprazole [Prilosec] 40 mg PO BID 07/17/16 Hydrocodone/Acetaminophen [[place] 5-325 Tablet] 2 each PO DAILY PRN 04/22/17 Primary Care Physician: Aftab Sevilla MD [Primary Care Provider] - Test Results: Test results from this visit will be discussed in further detail at your follow- up appointment, if applicable. Please Follow Up With: Mayank Nolasco MD
--- NOTE | 2019-02-03 14:11 | PCM.OPRPT ---
Problem List (1) Cervical disc disorder with radiculopathy of mid-cervical region Status: Acute (2) Mid-cervical disc disorder, unspecified level Status: Acute (3) Other cervical disc degeneration, mid-cervical region, unspecified level Status: Acute (4) Other cervical disc degeneration, mid-cervical region, unspecified level Status: Acute (5) Radiculopathy, cervical region Status: Acute (6) Radiculopathy, cervical region Status: Acute Report of Operation Date of Procedure: 02/03/19 Pre-Operative Diagnosis: Cervical degenerative disc disease with cervical radiculopathy due to cervical disc disorders Post-Operative Diagnosis: Same Surgery/Procedure Performed:: Cervical epidural steroid injection under fluoroscopy guidance Description of Surgical Findings:: cervical epidural Under sterile conditions. Patient placed in the prone position, pressure points were padded, patient was ready from the nursing and the anesthesia team. After identification of the side and the target area for the block under guided fluoroscopy, the entry site in the posterior cervical area at the level of the C6-7 identified and marked was marked with marking pen. I used Betadine for sterilization of the skin, sterile draping were applied. Using 25-gauge needle to infiltrate the skin with local anesthesia using preservative-free lidocaine 0.5% injected 2.5 mL at site of entry. Using guided fluoroscopy, accessed the the posterior cervical epidural space using 20-gauge Touhy needles under midline approach, accessed the site was assisted with lateral fluoroscopy, followed by using [id number] technique using preservative-free normal saline, negative aspiration of CSF and blood. Injected contrast solution 1 mL under live fluoroscopy which showed good spread of the contrast to the posterior cervical epidural space and to the targeted area of the injection at C6-7. Injected [3] mL of mixture of preservative-free lidocaine and Kenalog [80] mg for the procedure which showed appropriate spread in the epidural space. [place] was removed, pressure dressing were applied. Neurological exam was intact after the procedure, patient tolerated the procedure well and was taken to the recovery. Type of Anesthesia:: Local MAC Special Medications: Lidocaine preservative-free 0.5%, preservative-free normal saline, Kenalog 80 mg - Complications No complication
[2019-02-03] MEDS: Triamcinolone Acetonide 40 MG/ML Vial (14:20)
== END 2019-02-03 15:00 | disposition home or self-care (01) ==
LOC: SDC 12:23 → AC 12:25
PROVIDERS: Family Provider Family Medicine; PCP Family Medicine; Referring Provider Anesthesiology; Visit Provider Anesthesiology
PROC: 3E0S3BZ Introduction of Anesthetic Agent into Epidural Space, Percutaneous Approach (ICD-10-PCS; CPT 62320; principal; 2019-02-03 13:40)
DX: M50.123 Cervical disc disorder at C6-C7 level with radiculopathy (principal); M25.569 Pain in unspecified knee; M25.511 Pain in right shoulder; E66.1 Drug-induced obesity; R05 Cough; M79.10 Myalgia, unspecified site; M50.320 Other cervical disc degeneration, mid-cervical region, unspecified level; M50.120 Mid-cervical disc disorder, unspecified level; M50.322 Other cervical disc degeneration at C5-C6 level; M50.222 Other cervical disc displacement at C5-C6 level; M50.122 Cervical disc disorder at C5-C6 level with radiculopathy; M51.26 Other intervertebral disc displacement, lumbar region; M47.816 Spondylosis without myelopathy or radiculopathy, lumbar region; G89.4 Chronic pain syndrome; Z79.891 Long term (current) use of opiate analgesic
CPT/HCPCS: 01922; 62321; 64490; 72020; J7120

== ENCOUNTER 2019-06-15 09:51 | Emergency (ER) | payer MEDICAID, SELFPAY ==
[2019-02-03 12:48] VITALS: BMI 39.4
[2019-06-15 09:52] VITALS: BP 134/80; PULSE 73; RESP 18; TEMP 36.9; O2SAT 99; BMI 39.4
--- NOTE | 2019-06-15 10:13 | ED.DCSUM_ITS ---
History of Present Illness Chief Complaint: Chest Other Informant: Patient Onset: Days Context: Gradual Onset Timing: Continuous Current Severity: Moderate Maximum Severity: Moderate Narrative: The patient is a 44-year-old female that presents to the emergency department sore throat. She states she had a for the past 2 days. She states last night, she described more burning pain in her throat. She states it hurts to swallow, but she is still able to swallow without issue. She does not think she is had fever. She describes a burning in her central chest. Patient is otherwise been in her normal state of health. She denies any new medications. She does have multiple children, but cannot recall any definitive sick exposure. Prior similar symptoms: No Recent Illness/Hospitalization: No Past Medical History - Allergies and Home Meds Allergies/Adverse Reactions: Allergies bupropion Allergy (Verified 06/15/19 09:54) Itching Primary Care Physician: Aftab Sevilla MD [Primary Care Provider] - Prior records reviewed: Yes Past Medical History: - - GERD, anxiety Surgical History: noncontributory Smoking Status: Never smoker Review of Systems General: Denies: Chills, Fever, Sweats Eyes: Denies: Visual changes - bilaterally, Diplopia ENT: Reports: Sore throat. Denies: Rhinorrhea Cardiovascular: Denies: Chest pain, Palpitations Respiratory: Denies: Dyspnea, Cough, Dyspnea on exertion Gastrointestinal: Denies: Abdominal pain, Nausea, Vomiting, Diarrhea, Melena, Hematochezia Genitourinary: Denies: Dysuria, Hematuria, Frequency Musculoskeletal: Denies: Back pain, Extremity Pain Skin: Denies: Rash, Wounds Neurological: Denies: Headache, Weakness, Numbness Physical Exam Vital Signs/Narrative: Vital Signs Temp Pulse Resp BP Pulse Ox 06/15/19 09:52 98.4 F 73 18 134/80 H 99 Inital Vital Signs reviewed: Yes General: Well nourished, Well developed, No Acute Distress Head: Normocephalic, Atraumatic Eyes: Perrl, EOMI ENT: Moist mucous membranes, No rhinorrhea, - - Vesicular lesions in the posterior oropharynx. Uvula midline. No evidence of retropharyngeal or peritonsillar abscess. Neck: Supple, Nontender Cardiovascular: Regular rate, Regular rhythm, No murmurs Respiratory: No distress, CTA bilaterally, Chest nontender Abdomen: Soft, Nontender, Nondistended, Normal bowel sounds Back: Nontender, Normal Inspection Extremities: Nontender, No edema Skin: Normal color, No rash Neurological: Alert, Oriented x3, Cranial nerves II-XII grossly intact, Normal Strength, Normal Sensation Psychological: Normal affect, Normal Mood Diagnostic/Tx/Re-eval - Medical Decision Making The patient presents to the emergency department with herpangina. She has no trismus or stridor. There is no evidence of abscess. She is given Decadron. She is also given a GI cocktail. I did dormitory counselor her on supportive care as this is likely viral. Again, she has no evidence of abscess. She has no trismus or stridor. I do not feel that imaging is necessary. The patient will be treated with BMX next for comfort. She will be discharged home. Impression 1. Herpangina ED Disposition - Plan for ED Patient: Instructions: PHARYNGITIS, Viral Prescriptions: Bmx Liquid 10 ml PO Q6H PRN PRN #180 ml PRN Reason: Sore Throat Prescription Printed Referrals: Aftab Sevilla MD [Primary Care Provider] -
[2019-06-15] MEDS: Mag Hydrox/Al Hydrox/Simeth 30 ML UDC PO (10:36)
[2019-06-15] MEDS: dexAMETHasone 10 MG/ML Vial PO.IVFORM (10:36)
--- NOTE | 2019-06-15 13:58 | ED.VISSUMM ---
- ER Visit Summary Date of Service: 06/15/19 Chief Complaint: [] History of Present Illness: The patient is a 44 F [] Physical Examination: [] Test Results: [] Emergency Department Course and Treatment: [] Treatment Plan: [] Disposition: [] Impression: [] This note was generated with [employer] dictation software. It may contain incorrect words, spelling, and punctuation that were not noted in review of the chart prior to signing ED Disposition - Plan for ED Patient: Disposition: Home or Assisted Living Instructions: PHARYNGITIS, Viral Prescriptions: Bmx Liquid 10 ml PO Q6H PRN PRN #180 ml PRN Reason: Sore Throat Prescription Printed Lidocaine 2% Viscous [Xylocaine Viscous] 15 ml PO Q4H PRN #240 ml PRN Reason: Sore Throat Prescription Printed Referrals: Aftab Sevilla MD [Primary Care Provider] -
== END 2019-06-15 11:26 | disposition home or self-care (01) ==
LOC: ED 10:34
PROVIDERS: Emergency Provider Emergency Medicine; PCP Family Medicine
DX: B08.5 Enteroviral vesicular pharyngitis (principal); K21.9 Gastro-esophageal reflux disease without esophagitis; F41.9 Anxiety disorder, unspecified
CPT/HCPCS: 99283

== ENCOUNTER 2019-08-23 17:53 | Emergency (ER) | payer MEDICAID, SELFPAY ==
[2019-08-23 17:54] VITALS: BP 149/95; PULSE 76; RESP 16; TEMP 36.2; BMI 41.0
--- NOTE | 2019-08-23 18:34 | ED.VIS.GEN ---
History of Present Illness Chief Complaint: Abd Pain Informant: Patient Narrative: Intermittent worsening epigastric abdominal pain for the past 2 months, however today worsening. Has chronic epigastric pain states calm down in 2013, she has had endoscopies in the past. Currently has new physician did have endoscopy 2 months ago for which she thinks it was in [place] upper and lower stating there is no acute findings she has internal hemorrhoids with intermittent lower GI bleed. Denies any melena. She is on omeprazole 40 mg twice a day. No chest pains or shortness of breath. Intermittent alcohol denies history of pancreatitis. Prior similar symptoms: Yes Past Medical History - Allergies and Home Meds Allergies/Adverse Reactions: Allergies bupropion Allergy (Verified 06/15/19 09:54) Itching Primary Care Physician: Aftab Sevilla MD [Primary Care Provider] - Past Medical History: - - Chronic back pain, chronic epigastric pain Surgical History: noncontributory, cholecystectomy Smoking Status: Never smoker Review of Systems General: Denies: Chills, Fever, Sweats Eyes: Denies: Visual changes - bilaterally, Diplopia ENT: Denies: Rhinorrhea, Sore throat Cardiovascular: Denies: Chest pain, Palpitations Respiratory: Denies: Dyspnea, Cough, Dyspnea on exertion Gastrointestinal: Reports: Abdominal pain. Denies: Nausea, Vomiting, Diarrhea, Melena, Hematochezia Genitourinary: Denies: Dysuria, Hematuria, Frequency Musculoskeletal: Denies: Back pain, Extremity Pain Skin: Denies: Rash, Wounds Neurological: Denies: Headache, Weakness, Numbness Physical Exam Vital Signs/Narrative: Vital Signs Temp Pulse Resp BP 08/23/19 17:54 97.2 F L 76 16 149/95 H Inital Vital Signs reviewed: Yes General: Well nourished, Well developed, No Acute Distress Head: Normocephalic, Atraumatic Eyes: Perrl, EOMI ENT: Moist mucous membranes, No rhinorrhea Neck: Supple, Nontender Cardiovascular: Regular rate, Regular rhythm, No murmurs Respiratory: No distress, CTA bilaterally, Chest nontender Abdomen: Soft, Nondistended, Normal bowel sounds, - - Mild epigastric tenderness no guarding or rebound. Negative Cunningham's or McBurney's tenderness. Back: Nontender, Normal Inspection Extremities: Nontender, No edema Skin: Normal color, No rash Neurological: Alert, Oriented x3, Cranial nerves II-XII grossly intact, Normal Strength, Normal Sensation Psychological: Normal affect, Normal Mood Diagnostic/Tx/Re-eval Abnormal Lab Results 08/23/19 08/23/19 18:47 18:47 WBC 8.4 RBC 4.53 Hgb 13.2 Hct 40.0 MCV 88.3 MCH 29.1 MCHC 33.0 RDW Std Deviation 41.0 RDW Coeff of Christiano 12.7 Plt Count 177 MPV 10.2 Immature Gran % (Auto) 0.500 Neut % (Auto) 82.3 H Lymph % (Auto) 13.9 L [place] % (Auto) 3.1 Eos % (Auto) 0.2 Baso % (Auto) 0.0 Absolute Neuts (auto) 6.9 Absolute Lymphs (auto) 1.17 Nucleated RBC % 0 Sodium 139 Potassium 3.9 Chloride 105 Carbon Dioxide 28.0 Anion Gap 6 BUN 12 Creatinine 0.92 Estim Creat Clear Calc 66.68 Est GFR (MDRD) Af Amer 85 Est GFR (MDRD) Non-Af 70 BUN/Creatinine Ratio 13.1 Glucose 136 H Calcium 8.7 Total Bilirubin 0.70 AST 128 H ALT 53 Alkaline Phosphatase 159 H Total Protein 7.1 Albumin 3.7 Globulin 3.4 Albumin/Globulin Ratio 1.1 Lipase 206 - Medical Decision Making Patient vital signs stable nonsurgical abdomen. Abdominal labs were normal, she given GI cocktail reported no improvement. I do not feel images are necessary. She reports to me when she gets the pain dose symptoms stays away for a while. Discussed with her her dose one time in the ED, she understands no prescriptions, she will follow-up with her GI doctor as an outpatient. All questions were answered. ED Disposition - Plan for ED Patient: Disposition: Home or Assisted Living Diagnosis: Epigastric abdominal pain Instructions: ED Abdominal Pain Unkn Cause Fem Referrals: Aftab Sevilla MD [Primary Care Provider] - 3-5 Days if not improving
[2019-08-23] MEDS: Mag Hydrox/Al Hydrox/Simeth 30 ML UDC PO (18:53)
[2019-08-23 18:58] LABS: Absolute Lymphocyte Count 1.17 X10^3/uL (0.83-4.51); Absolute Neutrophil Count 6.9 X10^3/uL (2.0-7.7); Eosinophil# 0.02 X10^3/uL; Eosinophils% 0.2 % (0-5); Hemoglobin 13.2 g/dL (12.0-15.0); Lymphocyte # 1.17 X10^3/ul (4.0); Lymphocyte % 13.9 % (19-41); Mean Corpuscular Hgb 29.1 pg (27.0-32.0); Mean Corpuscular Volume 88.3 fL (81-99); Mean Platelet Vol. 10.2 fl (6.2-12.0); Monocyte# 0.26 X10^3/uL; Monocyte% 3.1 % (0-10); NRBC Flagged by Analyzer 0 % (0-5); Neutrophil # 6.93 X10^3/uL (2.7-7.7); Neutrophil % 82.3 % (47-70); Platelet Count 177 K/mm3 (150-450); RBC Distribution Width CV 12.7 % (11.6-14.6); Red Blood Count 4.53 M/mm3 (4.2-5.4); White Blood Count 8.4 K/mm3 (4.4-11.0)
[2019-08-23 19:14] LABS: ALB/GLOB Ratio 1.1 RATIO (0.9-2.4); AST(SGOT) 128 U/L (15-37); Alanine Aminotransfer ALT/SGPT 53 U/L (13-56); Albumin, Serum 3.7 g/dL (3.2-5.0); Alkaline Phosphatase 159 U/L (45-117); Anion Gap 6 (5-15); BUN 12 mg/dL (7-18); BUN/Creat Ratio 13.1 RATIO (10-20); Calcium,Total 8.7 mg/dL (8.5-10.1); Chloride 105 mmol/L (98-107); Creatinine, Serum 0.92 mg/dL (0.55-1.02); EST Glomerular Filtration Rate 70 mL/min (>60); Est Glom Filt Rate - Afr Amer 85 mL/min (>60); Estimated Creatinine Clearance 66.68 ml/min; Globulin 3.4 g/dL (2.2-4.2); Glucose 136 mg/dL (74-106); Lipase 206 U/L (73-393); Potassium 3.9 mmol/L (3.5-5.1); Protein, Total 7.1 g/dL (6.4-8.2); Sodium Level 139 mmol/L (136-145)
[2019-08-23] MEDS: Morphine 4 MG/ML Syringe IV (19:41)
[2019-08-23 20:12] VITALS: PULSE 78; O2SAT 98
== END 2019-08-23 20:13 | disposition home or self-care (01) ==
LOC: ED 19:42
PROVIDERS: Emergency Provider Emergency Medicine; PCP Family Medicine
DX: R10.13 Epigastric pain (principal); G89.29 Other chronic pain; M54.9 Dorsalgia, unspecified
CPT/HCPCS: 80053; 83690; 85025; 96374; 99284; A4216

== ENCOUNTER → 2019-11-10 14:24 | Outpatient (CLI) | payer MEDICAID, SELFPAY ==
--- NOTE | 2019-11-10 14:30 | RAD_ITS ---
STUDY: X-RAY - PELVIS AND RIGHT HIP REASON FOR EXAM: Female, 44 years old. PAIN TECHNIQUE: 3 views of the pelvis and hip. COMPARISON: None. FINDINGS: There is a non-specific bowel gas pattern. Normal visualized soft tissue structures. Normal bilateral iliac wings, sacroiliac joints and visualized sacrum. Normal bilateral superior and inferior pubic rami. Normal pubic symphysis. Normal bilateral ischial tuberosities. Normal visualized femoral head. Normal acetabulum. Normal hip joint. RAD/HIP, UNI W/ Pelvis 2-3 Views IMPRESSION: Normal x-ray examination of the pelvis and hip. Electronically Signed: Terrance James, at 15:36 EDT , Service support ,
--- NOTE | 2019-11-10 14:30 | RAD_ITS ---
STUDY: X-RAY - RIGHT KNEE REASON FOR EXAM: Female, 44 years old. PAIN TECHNIQUE: 4 view(s) of the knee. COMPARISON: None. FINDINGS: Normal visualized distal femur. Normal visualized proximal tibia and fibula. Normal proximal tibiofibular articulation. Normal medial femorotibial compartment. Normal lateral femorotibial compartment. Normal patellofemoral articulation. The soft tissue structures are unremarkable. RAD/Knee 4 or More Views IMPRESSION: Normal x-ray examination of the knee. Electronically Signed: Terrance James, at 15:35 EDT , Service support ,
== END ==
PROVIDERS: PCP Family Medicine; Referring Provider Anesthesiology; Visit Provider Anesthesiology
DX: M25.561 Pain in right knee (principal); M25.551 Pain in right hip
CPT/HCPCS: 73502; 73564

== ENCOUNTER 2020-04-26 11:11 | Day surgery (SDC) | payer MEDICAID, SELFPAY ==
[2020-04-26 11:51] VITALS: BP 146/73; PULSE 62; RESP 16; TEMP 36.6; O2SAT 98; BMI 43.9
[2020-04-26] MEDS: Lactated Ringers 1,000 ML 100 ML IV (12:09)
--- NOTE | 2020-04-26 12:30 | RAD_ITS ---
PROCEDURE: Right L1-S1 facet joint block. DATE OF EXAMINATION: 04/26/2020. INDICATION: Female, 45 years old. Chronic low back pain. FLUOROSCOPY TIME (if supplied): (18.7 seconds) minutes/seconds . 5 images were submitted. Intraoperative imaging provided for right L1-S1 facet joint block. RAD/Lumbar Spine 2 or 3 Views IMPRESSION: Intraoperative imaging provided for right L1-S1 facet joint block. Electronically Signed: Terrance James MD at 14:20 EST , Service support ,
[2020-04-26] MEDS: Bupivacaine 0.25% 30 ML Vial (13:00)
[2020-04-26] MEDS: Lidocaine 1% (30 ml sdv) 30 ML Vial (13:00)
[2020-04-26] MEDS: Triamcinolone Acetonide 40 MG/ML Vial (13:00)
--- NOTE | 2020-04-26 13:05 | DCINST_ITS ---
- Discharge Diagnoses Current Active Problems: Lower back pain exacerbation You will use the following diet at home:: No restrictions, Regular, Other - Dietary management, low-carb, avoid inflammatory diet like red meat and heavy carbohydrates, encouraged renal dietary fibers Your food should be the consistency of: Regular, Soft (bite-sized & easy to chew/swallow) Your liquids should be the consistency of: Regular/Thin, Sophia Thick, Pudding Thick Discharge Activity: Return to Normal Activity, No Restrictions Return to work on:: 04/29/20 May shower in (days): 1 May resume sexual activity in: No Restrictions Weight Bearing Status: Weight bearing as tolerated Keep extremity elevated above heart level: Operative Extremity Call your doctor if your incision/area has: Continuous Slow Oozing, Sudden Increased Bleeding, Increased Pain/ Swelling, Increased Redness, Foul Smelling Discharge, Swelling at the incision site Call your doctor if you observe: Fever of 101 or Higher, Coldness, Increased Pain, Numbness or Tingling, Uncontrolled pain Suture Line Care: Avoid Pulling/Pushing, Avoid Pinching/Bending Remove Dressing in (days):: 1 Cleanse incision/area with: Soap & Water Instructions: What Is Osteoarthritis?, Understanding Osteoarthritis, Osteoarthritis: Coping with Pain, Osteoarthritis: Exercise, Osteoarthritis: Managing Pain, ED Back Exercises, Lumbar Allergies/Adverse Reactions: Allergies bupropion Allergy (Verified 04/26/20 11:48) Itching Medications to take at Discharge NIFEdipine [Procardia Xl] 30 mg PO QHS 12/14/14 Venlafaxine XR [Effexor Xr] 300 mg PO QHS 12/14/14 Atenolol [Tenormin (beta may)] 50 mg PO QHS 07/17/16 Clonazepam [Clonazepam Tab.Rapdis] 1 mg PO DAILY PRN 07/17/16 Omeprazole [Prilosec] 40 mg PO BID 07/17/16 Hydrocodone/Acetaminophen [[place] 5-325 Tablet] 2 each PO DAILY PRN 04/22/17 Primary Care Physician: Aftab Sevilla MD [Primary Care Provider] - Test Results: Test results from this visit will be discussed in further detail at your follow- up appointment, if applicable. Please Follow Up With: Mayank Nolasco MD
--- NOTE | 2020-04-26 13:07 | OP.PCM_ITS ---
Problem List (1) Low back pain Status: Acute (2) Low back pain Status: Acute (3) Spondylosis of lumbar region without myelopathy or radiculopathy Status: Acute (4) Spondylosis of lumbar region without myelopathy or radiculopathy Status: Chronic Report of Operation Date of Procedure: 04/26/20 Pre-Operative Diagnosis: Lumbar facet spondylosis Post-Operative Diagnosis: Same Surgery/Procedure Performed:: Right side lumbar facet median nerve branch block, the right side L3-4, L4-5, 5 S1 under fluoroscopy guidance Description of Surgical Findings:: Under sterile conditions. Patient placed in the prone position, pressure points were padded, patient was ready from the nursing and the anesthesia team. After identification of the side and the target area for the block under guided fluoroscopy, the entry site was marked with marking pen. I used Betadine for sterilization of the skin, sterile draping were applied. Using 25-gauge needle to infiltrate the skin with local anesthesia using preservative-free lidocaine 0.5% injected 2.5 mL at each site of entry. Using oblique fluoroscopy, accessed the right medial nerve branch supplying the [right] lumbar facets L3-4, L4-5, L5-S1 using 22-gauge spinal needle. After confirmation of appropriate needle placement to the targeted area with AP and lateral fluoroscopy, injected 2.5 mL mixture of preservative-free Marcaine 0.5% and Kenalog [20] mg at each site. [place] was removed, pressure dressing were applied. Patient tolerated the procedure well and was taken to the recovery. Type of Anesthesia:: Local MAC, MAC Estimated Blood Loss (mL): None - Complications None
[2020-04-26 13:10] VITALS: BP 111/87; BP 146/73; PULSE 56; RESP 16; TEMP 36.3; O2SAT 100
[2020-04-26 13:15] VITALS: BP 129/69; BP 146/73; PULSE 55; RESP 16; O2SAT 100
[2020-04-26 13:20] VITALS: BP 138/67; BP 146/73; PULSE 55; RESP 16; O2SAT 100
[2020-04-26 13:25] VITALS: BP 141/69; BP 146/73; PULSE 54; RESP 18; TEMP 36.5; O2SAT 100
[2020-04-26 13:57] VITALS: BP 146/73
== END 2020-04-26 13:58 | disposition home or self-care (01) ==
LOC: SDC 11:12 → AC 11:14
PROVIDERS: PCP Family Medicine; Referring Provider Anesthesiology; Visit Provider Anesthesiology
PROC: 3E0T3BZ Introduction of Anesthetic Agent into Peripheral Nerves and Plexi, Percutaneous Approach (ICD-10-PCS; CPT 64493; principal; 2020-04-26 12:25)
DX: M47.816 Spondylosis without myelopathy or radiculopathy, lumbar region (principal); G89.29 Other chronic pain; K21.9 Gastro-esophageal reflux disease without esophagitis; I10 Essential (primary) hypertension; F32.9 Major depressive disorder, single episode, unspecified; F41.9 Anxiety disorder, unspecified
CPT/HCPCS: 64493; 64494; 64495; 64483; 72100; J7120

== ENCOUNTER 2020-04-28 10:11 | Emergency (ER) | payer MEDICAID, SELFPAY ==
[2020-04-28 10:12] VITALS: BP 154/108; PULSE 79; RESP 15; TEMP 36.5; O2SAT 98; BMI 42.9
--- NOTE | 2020-04-28 10:23 | CT_ITS ---
STUDY: CT SOFT TISSUE NECK WITH CONTRAST REASON FOR EXAM: Female, 45 years old. CHIN ABSCESS X 2 DAYS RADIATION DOSAGE (If Supplied By Facility): CTDIvol = ( 18.75 ) mGy, DLP = ( 552.90 ) mGycm TECHNIQUE: The patient was scanned in a multi-detector CT scanner. High resolution transaxial imaging was performed following intravenous administration of IV 75mL Isovue-300. Sagittal and coronal images were reconstructed. Individualized dose optimization techniques were used for this CT. COMPARISON: None. FINDINGS: Along the soft tissues of the anterior mandible is noted hyperemia and soft tissue swelling with small dermal defect consistent with underlying inflammatory infectious process. Edema extends along the lower soft tissues and platysma... There is a small fluid collection within the soft tissues with early phlegmon also a consideration which measures 8 mm in diameter. Normal bilateral parotid glands. Normal bilateral market development executive spaces. Normal bilateral parapharyngeal spaces. Normal bilateral carotid spaces. Normal bilateral sublingual and submandibular glands and spaces. Normal visualized nasopharynx. Normal retropharyngeal space. Normal perivertebral space. Normal visualized bilateral faucial tonsils. The visualized tongue, tongue base and oropharynx are normal. The visualized cervical lymph nodes (levels I-) are within normal size limits, and maintain normal morphology. There is no demonstrated solid or cystic mass lesion. There is no abnormal contrast enhancement. Normal epiglottis, bilateral vallecula and hypopharynx. The pre-epiglottic and paraglottic adipose spaces are normal. Normal visualized bilateral piriform sinuses, aryepiglottic folds, vocal cords, and arytenoid-cricoid articulations. Normal subglottic trachea. Normal bilateral lobes of the thyroid gland. Normal visualized pulmonary apices. Normal visualized paranasal sinuses. Normal visualized cervical spine. CT/Soft Tissue Neck WITH Contrast IMPRESSION: 1. Lower mandibular anterior soft tissue edema and swelling with small fluid collection measuring 8 mm consistent with early phlegmon formation. There is a small dermal defect likely representing etiology of inflammation, clinically correlate. Otherwise no additional acute neck process. Electronically Signed: Jonathan Hsu DO at 11:28 EST , Service support ,
--- NOTE | 2020-04-28 10:24 | ED.VISSUMM ---
- ER Visit Summary Date of Service: 04/28/20 Chief Complaint: Abscess History of Present Illness: The patient is a 45 F presenting with abscess to her chin. This started 2 days ago. She complains of increasing swelling and pain. She has had no drainage. She denies fever. Denies other complaints. Physical Examination: Vitals are stable. Patient is afebrile. Alert no acute distress. HEENT exam 4 cm indurated abscess anterior chin. She has submental tenderness. No sublingual edema Neck is supple. Lungs are clear and equal bilaterally. Heart is regular rate and rhythm. Extremities are unremarkable. Skin is warm and dry. No focal neurologic deficit. Remainder of exam is unremarkable. Emergency Department Course and Treatment: I&D was attempted. Anesthetized with lidocaine. Incised with 11 blade. Probed to break up loculations. Minimal amount of pus was drained. Irrigated with saline. Patient was given clindamycin, morphine, Zofran IV. CT soft tissue neck shows lower mandibular anterior soft tissue edema and swelling with small fluid collection measuring 8 mm consistent with early phlegmon formation. There is a small dermal defect likely representing etiology of inflammation, clinically correlate. Otherwise no additional acute neck process. On reevaluation, patient is resting comfortably. She is advised signs and symptoms for which to return to the ED. Advised to follow-up with primary care physician. She is given prescription for clindamycin. She is agreeable with this plan. Disposition: Discharge home Impression: Facial cellulitis and abscess, I&D This note was generated with [employer] dictation software. It may contain incorrect words, spelling, and punctuation that were not noted in review of the chart prior to signing ED Disposition - Plan for ED Patient: Instructions: ED Cellulitis, Facial Prescriptions: Clindamycin [Cleocin] 300 mg PO 4X/DAY #80 cap Prescription Printed Referrals: Aftab Sevilla MD [Primary Care Provider] -
[2020-04-28] MEDS: Lidocaine 1% (20 ml mdv) 20 ML Vial INFILT (10:35)
[2020-04-28 10:49] LABS: Anion Gap 5 (5-15); BUN 8 mg/dL (7-18); Calcium,Total 8.5 mg/dL (8.5-10.1); Chloride 106 mmol/L (98-107); Creatinine, Serum 0.73 mg/dL (0.55-1.02); EST Glomerular Filtration Rate 92 mL/min (>60); Est Glom Filt Rate - Afr Amer 111 mL/min (>60); Estimated Creatinine Clearance 83.15 ml/min; Glucose 98 mg/dL (74-106); Potassium 3.6 mmol/L (3.5-5.1); Sodium Level 139 mmol/L (136-145)
[2020-04-28] MEDS: Ondansetron 4 MG/2 ML Vial IV (10:50)
[2020-04-28] MEDS: Morphine 4 MG/ML Syringe IV (10:50)
[2020-04-28 11:03] LABS: Absolute Lymphocyte Count 1.17 X10^3/uL (0.83-4.51); Absolute Neutrophil Count 10.7 X10^3/uL (2.0-7.7); Basophil# 0.01 X10^3/uL; Basophil% 0.1 % (0-1); Hematocrit 38.7 % (37-47); Hemoglobin 12.8 g/dL (12.0-15.0); Lymphocyte # 1.17 X10^3/ul (4.0); Lymphocyte % 9.3 % (19-41); Mean Corp Hgb Conc 33.1 g/dL (32-36); Mean Corpuscular Hgb 29.4 pg (27.0-32.0); Mean Platelet Vol. 10.5 fl (6.2-12.0); Monocyte# 0.63 X10^3/uL; NRBC Flagged by Analyzer 0 % (0-5); Platelet Count 202 K/mm3 (150-450); RBC Distribution Width CV 13.1 % (11.6-14.6); RBC Distribution Width SD 42.7 fl (35.1-43.9); Red Blood Count 4.35 M/mm3 (4.2-5.4); White Blood Count 12.6 K/mm3 (4.4-11.0)
[2020-04-28 11:40] VITALS: BP 163/83; PULSE 61; RESP 18; TEMP 36.9; O2SAT 97
--- NOTE | 2020-04-28 12:03 | ED.DEP ---
ED Disposition - Plan for ED Patient: Instructions: ED Cellulitis, Facial Prescriptions: Clindamycin [Cleocin] 300 mg PO 4X/DAY #80 cap Prescription Printed Referrals: Aftab Sevilla MD [Primary Care Provider] -
[2020-04-28 12:35] VITALS: BP 159/85; PULSE 68; RESP 18; O2SAT 97
== END 2020-04-28 12:43 | disposition home or self-care (01) ==
LOC: ED 10:43
PROVIDERS: Emergency Provider Emergency Medicine; PCP Family Medicine
DX: L02.01 Cutaneous abscess of face (principal); L03.211 Cellulitis of face; I10 Essential (primary) hypertension; K21.9 Gastro-esophageal reflux disease without esophagitis; F41.9 Anxiety disorder, unspecified; F32.9 Major depressive disorder, single episode, unspecified
CPT/HCPCS: 10060; 70491; 80048; 83605; 85025; 99283; J7050; Q9967; A4216; J2405

== ENCOUNTER 2020-04-29 16:56 | Inpatient (IN) | payer MEDICAID, SELFPAY ==
[2020-04-28 10:12] VITALS: BMI 42.9
[2020-04-29 16:57] VITALS: BP 159/00; PULSE 66; RESP 16; TEMP 36.2; O2SAT 97; BMI 43.2
--- NOTE | 2020-04-29 17:17 | ED.DCSUM_ITS ---
History of Present Illness Chief Complaint: Abscess Informant: Patient Onset: Days Context: Gradual Onset Current Severity: Moderate Maximum Severity: Moderate Narrative: Patient returns to the emergency room secondary to abscess. Patient developed an abscess over her chin 3 days ago. She was seen in the ER last night where I&D was attempted with little results. CT scan revealed an 8 mm phlegmon. Patient was started on clindamycin. Patient states that she continues to have pain to the area. The area under her chin seems to be slightly more firm and distended. She states she has pain that radiates down into her chest from the abscess. She denies fever or chills. No problems swallowing. - Past Medical History (1) Low back pain Status: Chronic Past Medical History - Allergies and Home Meds Allergies/Adverse Reactions: Allergies bupropion Allergy (Verified 04/29/20 16:57) Itching Primary Care Physician: Aftab Sevilla MD [Primary Care Provider] - Surgical History: noncontributory, cholecystectomy Smoking Status: Never smoker Review of Systems General: Denies: Chills, Fever Eyes: Denies: Visual changes - bilaterally ENT: Reports: - - Abscess to anterior chin Cardiovascular: Reports: Chest pain - Pulling sensation from chin Respiratory: Denies: Dyspnea Gastrointestinal: Denies: Abdominal pain, Vomiting Musculoskeletal: Denies: Extremity Pain Skin: Reports: Abscess Hematologic: Denies: Easy bruising, Easy bleeding Allergy: Denies: Uticaria Physical Exam Vital Signs/Narrative: Vital Signs Temp Pulse Resp BP Pulse Ox 04/29/20 16:57 97.1 F L 66 16 159/00 H 97 Inital Vital Signs reviewed: Yes General: Well nourished, Well developed Head: Normocephalic ENT: Moist mucous membranes, - - 4 cm round cutaneous abscess anterior chin. Submental space firm and edematous. No elevation of tongue. Speaks with a strong voice and tolerate secretions well. Neck: Supple Cardiovascular: Regular rate, Regular rhythm Respiratory: No distress, CTA bilaterally Abdomen: Soft, Nontender Extremities: Nontender Neurological: Alert, Oriented x3 Psychological: Normal affect Diagnostic/Tx/Re-eval Laboratory Results 04/29/20 04/29/20 17:25 17:25 WBC 11.8 H RBC 4.33 Hgb 12.8 Hct 38.8 MCV 89.6 MCH 29.6 MCHC 33.0 RDW Std Deviation 43.4 RDW Coeff of Christiano 13.2 Plt Count 212 MPV 10.5 Immature Gran % (Auto) 0.500 Neut % (Auto) 82.9 H Lymph % (Auto) 11.3 L [place] % (Auto) 5.2 Eos % (Auto) 0.0 Baso % (Auto) 0.1 Absolute Neuts (auto) 9.8 H Absolute Lymphs (auto) 1.33 Nucleated RBC % 0 Sodium 137 Potassium 3.4 L Chloride 102 Carbon Dioxide 31.0 Anion Gap 4 L BUN 14 Creatinine 0.79 Estim Creat Clear Calc 76.84 Est GFR (MDRD) Af Amer 101 Est GFR (MDRD) Non-Af 83 BUN/Creatinine Ratio 17.7 Glucose 99 Calcium 8.9 - Medical Decision Making Patient was given a dose of IV vancomycin. Blood work is obtained. White count is mildly elevated 11.8. Blood cultures were sent. I did review the CT from yesterday. There was some slight stranding and inflammation in the submental s pace, but no fluid collection. The area is not fluctuant at this time. At this time I will speak with hospitalist regarding admission for IV antibiotics to slow the progression. ED Disposition - Plan for ED Patient: Disposition: [facility] Diagnosis: Facial abscess Referrals: Aftab Sevilla MD [Primary Care Provider] -
[2020-04-29 17:38] LABS: Absolute Lymphocyte Count 1.33 X10^3/uL (0.83-4.51); Absolute Neutrophil Count 9.8 X10^3/uL (2.0-7.7); Basophil# 0.01 X10^3/uL; Basophil% 0.1 % (0-1); Hematocrit 38.8 % (37-47); Hemoglobin 12.8 g/dL (12.0-15.0); Lymphocyte # 1.33 X10^3/ul (4.0); Lymphocyte % 11.3 % (19-41); Mean Corpuscular Hgb 29.6 pg (27.0-32.0); Mean Corpuscular Volume 89.6 fL (81-99); Mean Platelet Vol. 10.5 fl (6.2-12.0); Monocyte# 0.61 X10^3/uL; Monocyte% 5.2 % (0-10); NRBC Flagged by Analyzer 0 % (0-5); Neutrophil # 9.79 X10^3/uL (2.7-7.7); Neutrophil % 82.9 % (47-70); Platelet Count 212 K/mm3 (150-450); RBC Distribution Width CV 13.2 % (11.6-14.6); RBC Distribution Width SD 43.4 fl (35.1-43.9); Red Blood Count 4.33 M/mm3 (4.2-5.4); White Blood Count 11.8 K/mm3 (4.4-11.0)
[2020-04-29 17:48] LABS: Anion Gap 4 (5-15); BUN 14 mg/dL (7-18); BUN/Creat Ratio 17.7 RATIO (10-20); Calcium,Total 8.9 mg/dL (8.5-10.1); Chloride 102 mmol/L (98-107); Creatinine, Serum 0.79 mg/dL (0.55-1.02); EST Glomerular Filtration Rate 83 mL/min (>60); Est Glom Filt Rate - Afr Amer 101 mL/min (>60); Estimated Creatinine Clearance 76.84 ml/min; Glucose 99 mg/dL (74-106); Potassium 3.4 mmol/L (3.5-5.1); Sodium Level 137 mmol/L (136-145)
[2020-04-29 18:32] VITALS: BP 136/74; PULSE 71; RESP 15; TEMP 36.6; O2SAT 98
--- NOTE | 2020-04-29 18:42 | HP.PCM_ITS ---
Problem List (1) Facial abscess Status: Acute (2) Morbid obesity Status: Chronic (3) HTN (hypertension) Status: Chronic (4) GERD (gastroesophageal reflux disease) Status: Chronic (5) Depression Status: Chronic History of Present Illness Date of Admission: 04/29/20 Chief Complaint: facial infection The patient is a 45 year old F with pmhx of morbid obesity, anxiety/depression, HTN, who presented to the ER with a facial infection. This began two days ago. She denies inciting trauma. She states this began spontaneously. She has swelling, redness, and pain under the chin and anteriorly on the chin. She came to the ER yesterday and the area on the anterior chin was lanced however there was no significant drainage. She feels that a head is forming in the area under the chin. There has been a small amount of clear drainage. She has no fever/chills. She feels that it hurts to swallow and to eat. She has no specific tooth pain. No wounds present in the mouth. No nausea/vomiting/diarrhea/abd pain. No cough or SOB. [] Past Medical History Past Medical History (Chronic Problems): Chronic Problems Morbid obesity (Chronic) HTN (hypertension) (Chronic) GERD (gastroesophageal reflux disease) (Chronic) Depression (Chronic) Low back pain (Chronic) Spondylosis of lumbar region without myelopathy or radiculopathy (Chronic) Allergies bupropion Allergy (Verified 04/29/20 16:57) Itching Home Medications: Ambulatory Orders Medication Instructions Recorded NIFEdipine [Procardia Xl] 30 mg PO QHS 12/14/14 Venlafaxine XR [Effexor Xr] 300 mg PO QHS 12/14/14 Atenolol [Tenormin (beta may)] 50 mg PO QHS 07/17/16 Clonazepam [Clonazepam Tab.Rapdis] 1 mg PO PRN PRN 07/17/16 Omeprazole [Prilosec] 40 mg PO BID 07/17/16 Hydrocodone/Acetaminophen [[place] 2 each PO DAILY PRN 04/22/17 5-325 Tablet] Clindamycin [Cleocin] 300 mg PO 4X/DAY #80 cap 04/28/20 Nabumetone [Relafen] 750 mg PO BID 04/29/20 Sertraline HCl [Zoloft] 200 mg PO DAILY 04/29/20 Tizanidine HCl [Zanaflex] 4 mg PO TID PRN 04/29/20 Surgical History: noncontributory, cholecystectomy, hysterectomy Psychiatric 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 Denies: Head Aches, Sinus Congestion, Sinus Drainage Cardiovascular: Denies: Chest Pain, Edema, Light Headedness, Palpitations Respiratory: Denies: Cough, Shortness of Breath, Shortness of breath at rest, Sputum production Gastrointestinal: Denies: Abdominal Pain, Diarrhea, Nausea, Vomiting Genitourinary: Denies: Dysuria, Hesitancy, Urgency Musculoskeletal: Denies: Joint Pain, Joint Tenderness Skin: Denies: Lesions, Rash, Wounds Neurological: Denies: Numbness, Tingling, Focal weakness Psychiatric: Denies: Anxiety, Depression, Homicidal Ideations, Suicidal Ideations Hematologic/ Lymphatic: Denies: Easy Bruising, Easy Bleeding VTE Information - Inpt Only VTE Present on Admission: No VTE Mechan Device Prophylaxis: None VTE Pharm Prophylaxis ordered?: No Reason prophylaxis not ordered:: Procedure Not Indicated Patient Problems: Active and Suspected Problems Facial abscess (Acute) - Physical Exam Vitals/I&O's: Vital Signs Temp Pulse Resp BP Pulse Ox 97.8 F 71 15 136/74 H 98 04/29/20 18:32 04/29/20 18:32 04/29/20 18:32 04/29/20 18:32 04/29/20 18:32 Oxygen Delivery Method Room Air Weight: 251 lb 8.759 oz Body Mass Index (BMI) 43.2 General: Alert, Oriented x3, Cooperative HEENT: Atraumatic, PERRLA, EOMI, Normocephalic, - - anterior and inferior erythema, tenderness to light palp, no drainage, Neck: Supple, No JVD, Negative Carotid Bruits Lungs: Clear to auscultation, Normal air movement Cardiovascular: Regular rate, No murmurs Abdomen: Bowel Sounds Present, Soft, Non Tender Extremities: No edema, Capillary Refill Less than 3 Seconds Skin: No rashes, No breakdown Musculoskeletal: No Tenderness to Palpation of Joints or Extremities Neurological: Cranial nerves II-XII grossly intact Psych/Mental Status: Normal Affect, Appropriate, Alert and oriented to time, place, person, mood and affect Laboratory Results 04/29/20 17:25: WBC 11.8 H, RBC 4.33, Hgb 12.8, Hct 38.8, MCV 89.6, MCH 29.6, MCHC 33.0, RDW Std Deviation 43.4, RDW Coeff of Christiano 13.2, Plt Count 212, MPV 10.5, Immature Gran % (Auto) 0.500, Neut % (Auto) 82.9 H, Lymph % (Auto) 11.3 L, [place] % (Auto) 5.2, Eos % (Auto) 0.0, Baso % (Auto) 0.1, Absolute Neuts (auto) 9.8 H, Absolute Lymphs (auto) 1.33, Nucleated RBC % 0 04/29/20 17:25: Sodium 137, Potassium 3.4 L, Chloride 102, Carbon Dioxide 31.0, Anion Gap 4 L, BUN 14, Creatinine 0.79, Estim Creat Clear Calc 76.84, Est GFR (MDRD) Af Amer 101, Est GFR (MDRD) Non-Af 83, BUN/Creatinine Ratio 17.7, Glucose 99, Calcium 8.9 Current Medications Vancomycin HCl 1,750 mg/ (Sodium Chloride) 535 mls @ 250 mls/hr IV X1 ONE Stop: 04/29/20 20:38 Last Admin: 04/29/20 18:15 Dose: 250 mls/hr Documented by: Assessment/Plan All Active Problems Facial abscess (Acute) Radiculopathy, cervical region (Acute) Radiculopathy, cervical region (Acute) Other cervical disc degeneration, mid-cervical region, unspecified level (Acute) Other cervical disc degeneration, mid-cervical region, unspecified level (Acute) Mid-cervical disc disorder, unspecified level (Acute) Cervical disc disorder with radiculopathy of mid-cervical region (Acute) Low back pain (Acute) Spondylosis of lumbar region without myelopathy or radiculopathy (Acute) Sciatica due to displacement of lumbar intervertebral disc (Acute) Intervertebral disc disorder with radiculopathy of lumbar region (Acute) Intervertebral disc disorder with radiculopathy of lumbar region (Acute) Other intervertebral disc degeneration, lumbar region (Acute) Other intervertebral disc degeneration, lumbar region (Acute) 1. Facial abscess - CT yesterday with abscess formation. Leukocytosis present. Failed outpatient clinda. I&D yesterday with minimal drainage. Continue vancomycin, add Unasyn. culture if possible. 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 HTN - continue home meds 4. Anxiety/Depression 5. GERD - PPI DVT ppx; early ambulation This patient was seen by Garo Brizuela PA-C under the supervision of Dr. Mariano.
[2020-04-29 19:00] VITALS: BP 128/74; PULSE 58; RESP 16; TEMP 37.1; O2SAT 97
[2020-04-29 19:02] VITALS: BMI 42.5
--- NOTE | 2020-04-29 19:11 | PCM.RX.CS ---
<Giuseppe Gauthier - Last Filed: 04/29/20 19:11> Consult Pharmacy has been consulted to manage selected antiobiotic: Vancomycin Type of Consult: New start Prior Doses of Antibiotics Received/Current Regimen: Medications Vancomycin HCl 1,750 mg/ (Sodium Chloride) 535 mls @ 250 mls/hr IV X1 ONE Stop: 04/29/20 20:38 Last Admin: 04/29/20 18:15 Dose: 250 mls/hr Documented by: Labs: Sodium 137 mmol/L (136-145) 04/29/20 17:25 Potassium 3.4 mmol/L (3.5-5.1) L 04/29/20 17:25 Chloride 102 mmol/L (98-107) 04/29/20 17:25 Carbon Dioxide 31.0 mmol/L (21.0-32.0) 04/29/20 17:25 Anion Gap 4 (5-15) L 04/29/20 17:25 BUN 14 mg/dL (7-18) 04/29/20 17:25 Creatinine 0.79 mg/dL (0.55-1.02) 04/29/20 17:25 Est GFR (MDRD) Af Amer 101 mL/min (>60) 04/29/20 17:25 Est GFR (MDRD) Non-Af 83 mL/min (>60) 04/29/20 17:25 BUN/Creatinine Ratio 17.7 RATIO (10-20) 04/29/20 17:25 Glucose 99 mg/dL (74-106) 04/29/20 17:25 Weight used for dosin lb 14.684 oz Estimated Creatinine Clearance: 77 mL/min Goal Trough: 10-15 mcg/mL Pharmacy Plan for Drug Dosinmg IV given in ED, continue 1250mg IV q12h with trough prior to 4th dose per policy. Pharmacy Service will continue to monitor and adjust dosing as required. Follow-Up Labs: Trough Vancomycin - 05/01 @ 0530 <Miguel Espinoza - Last Filed: 04/30/20 14:34> Consult Labs: Sodium 138 mmol/L (136-145) 04/30/20 05:56 Potassium 3.8 mmol/L (3.5-5.1) 04/30/20 05:56 Chloride 105 mmol/L (98-107) 04/30/20 05:56 Carbon Dioxide 30.0 mmol/L (21.0-32.0) 04/30/20 05:56 Anion Gap 3 (5-15) L 04/30/20 05:56 BUN 16 mg/dL (7-18) 04/30/20 05:56 Creatinine 0.72 mg/dL (0.55-1.02) 04/30/20 05:56 Est GFR (MDRD) Af Amer 111 mL/min (>60) 04/30/20 05:56 Est GFR (MDRD) Non-Af 92 mL/min (>60) 04/30/20 05:56 BUN/Creatinine Ratio 22.1 RATIO (10-20) H 04/30/20 05:56 Glucose 102 mg/dL (74-106) 04/30/20 05:56 Pharmacy Plan for Drug Dosing: Pharmacy Service will continue to monitor and adjust dosing as required.
[2020-04-29 19:13] VITALS: BMI 42.6
[2020-04-29] MEDS: oxyCODONE 5 MG Tablet 10 MG PO (20:13)
[2020-04-29] MEDS: Etodolac 300 MG Capsule PO (21:12)
[2020-04-29] MEDS: tiZANidine HCl 2 MG Tablet 4 MG PO (21:15)
[2020-04-30 00:54] VITALS: BP 129/67; PULSE 57; RESP 18; TEMP 36.7; O2SAT 95
[2020-04-30] MEDS: oxyCODONE 5 MG Tablet 10 MG PO ×4 (02:49→17:57)
--- NOTE | 2020-04-30 04:11 | PCS.PANDOC ---
PANDEMIC DOCUMENTATION INITIATED: Date:04/29/20 Time: 1929
[2020-04-30 05:12] VITALS: BP 125/62; PULSE 59; RESP 16; TEMP 36.8; O2SAT 94
[2020-04-30 06:10] LABS: Absolute Lymphocyte Count 1.23 X10^3/uL (0.83-4.51); Absolute Neutrophil Count 7.3 X10^3/uL (2.0-7.7); Basophil# 0.02 X10^3/uL; Basophil% 0.2 % (0-1); Eosinophil# 0.01 X10^3/uL; Eosinophils% 0.1 % (0-5); Hematocrit 36.7 % (37-47); Hemoglobin 11.8 g/dL (12.0-15.0); Lymphocyte # 1.23 X10^3/ul (4.0); Lymphocyte % 13.5 % (19-41); Mean Corp Hgb Conc 32.2 g/dL (32-36); Mean Corpuscular Hgb 29.1 pg (27.0-32.0); Mean Corpuscular Volume 90.4 fL (81-99); Mean Platelet Vol. 10.4 fl (6.2-12.0); Monocyte# 0.52 X10^3/uL; Monocyte% 5.7 % (0-10); NRBC Flagged by Analyzer 0 % (0-5); Neutrophil # 7.25 X10^3/uL (2.7-7.7); Neutrophil % 79.9 % (47-70); Platelet Count 191 K/mm3 (150-450); RBC Distribution Width CV 13.1 % (11.6-14.6); RBC Distribution Width SD 43.3 fl (35.1-43.9); Red Blood Count 4.06 M/mm3 (4.2-5.4); White Blood Count 9.1 K/mm3 (4.4-11.0)
[2020-04-30 06:31] LABS: Anion Gap 3 (5-15); BUN 16 mg/dL (7-18); BUN/Creat Ratio 22.1 RATIO (10-20); Chloride 105 mmol/L (98-107); Creatinine, Serum 0.72 mg/dL (0.55-1.02); EST Glomerular Filtration Rate 92 mL/min (>60); Est Glom Filt Rate - Afr Amer 111 mL/min (>60); Estimated Creatinine Clearance 84.31 ml/min; Glucose 102 mg/dL (74-106); Potassium 3.8 mmol/L (3.5-5.1); Sodium Level 138 mmol/L (136-145)
[2020-04-30 08:17] VITALS: BP 151/78; PULSE 61; RESP 18; TEMP 36.7; O2SAT 100
--- NOTE | 2020-04-30 09:50 | NURSING ---
small amt clear drainage noted to scabbed area on chin, red top swabs collected. pt denies all needs at present. call light within reach
[2020-04-30] MEDS: Etodolac 300 MG Capsule PO ×2 (10:40→22:42)
[2020-04-30] MEDS: Sertraline 100 MG Tablet 200 MG PO (10:40)
[2020-04-30] MEDS: Pantoprazole Sodium 40 MG Tablet PO ×2 (10:41→22:42)
--- NOTE | 2020-04-30 11:15 | CT_ITS ---
STUDY: CT FACIAL BONES WITH CONTRAST REASON FOR EXAM: Female, 45 years old. Chin abscess, facial cellulitis x 3 days. RADIATION DOSAGE (If Supplied By Facility): CTDIvol = ( 29.38 ) mGy, DLP = ( 620.92 ) mGycm TECHNIQUE: The patient was scanned in a multi detector CT scanner. Transaxial imaging was performed following the intravenous administration of IV 75mL Isovue-370. Sagittal and coronal images were reconstructed. Individualized dose optimization techniques were used for this CT. COMPARISON: None. FINDINGS: There is diffuse induration of the subcutaneous fat anterior and inferior to the mandible with likely involvement of this muscle as well. Findings are consistent with a cellulitis. There is no demonstrated abscess. There is no demonstrated involvement of the mandible Normal orbital thomson and orbital contents. Normal nasal bones and anterior nasal spine. Normal facial bones. There is no demonstrated fracture. Normal visualized paranasal sinuses. CT/Sinus/Facial Bone WITH Contras IMPRESSION: Diffuse induration of the subcutaneous fat anterior and inferior to the mandible consistent with cellulitis. I suspect the left platysma muscle is involved. Electronically Signed: Reg Ahuja MD at 16:15 EST , Service support ,
--- NOTE | 2020-04-30 11:18 | CT_ITS ---
STUDY: CT SOFT TISSUE NECK WITH CONTRAST REASON FOR EXAM: Female, 45 years old. Chin abscess, facial cellulitis x 3 days. RADIATION DOSAGE (If Supplied By Facility): CTDIvol = ( 21.36 ) mGy, DLP = ( 592.44 ) mGycm TECHNIQUE: The patient was scanned in a multi-detector CT scanner. High resolution transaxial imaging was performed following intravenous administration of IV 75mL Isovue-370. Sagittal and coronal images were reconstructed. Individualized dose optimization techniques were used for this CT. COMPARISON: None. FINDINGS: There is diffuse induration of the subcutaneous fat anterior and inferior to the mandible consistent with a cellulitis. No demonstrated abscess is noted. There are a few scattered submental lymph nodes measuring well less than 1 cm in short axis dimension. I suspect that the left platysma muscle is also involved on axial images 52 through 56. There is no demonstrated involvement of the mandible. Normal bilateral parotid glands. Normal bilateral hunter trapper spaces. Normal bilateral parapharyngeal spaces. Normal bilateral carotid spaces. Normal bilateral sublingual and submandibular glands and spaces. Normal visualized nasopharynx. Normal retropharyngeal space. Normal perivertebral space. Normal visualized bilateral faucial tonsils. The visualized tongue, tongue base and oropharynx are normal. The visualized cervical lymph nodes (levels I-) are within normal size limits, and maintain normal morphology. There is no demonstrated solid or cystic mass lesion. There is no abnormal contrast enhancement. Normal epiglottis, bilateral vallecula and hypopharynx. The pre-epiglottic and paraglottic adipose spaces are normal. Normal visualized bilateral piriform sinuses, aryepiglottic folds, vocal cords, and arytenoid-cricoid articulations. Normal subglottic trachea. Normal bilateral lobes of the thyroid gland. Normal visualized pulmonary apices. Normal visualized paranasal sinuses. Normal visualized cervical spine. CT/Soft Tissue Neck WITH Contrast IMPRESSION: Diffuse induration of the subcutaneous fat anterior and inferior to the mandible consistent with cellulitis. No abscess noted. I suspect that left platysma muscle is also involved but there are no erosive changes noted in the mandible Electronically Signed: Reg Ahuja MD at 16:13 EST , Service support ,
--- NOTE | 2020-04-30 11:20 | CASEMGMT ---
GIORGI JORDAN Face to Face with patient for initial transition planning/care coordination assessment. RN CM introduced self and role at [facility]. Patient lying in bed, alert and oriented. Patient willing to participate in assessment and is able to answer all questions appropriately. Care providers, pharmacy, and demographics verified. Patient wishes to discharge home, denies need for home health at this time. Will monitor for need for HHC for wound care assistance. Patient states she has no further needs or concerns at this time. CM to follow for discharge planning needs that may arise. PCP: Ro[facility] Specialists: [facility] Pharmacy: [facility] Insurance: [email or web address] Prescription Benefit: yes Living Will/HPOA: none LNOK: mother Living Arrangements: Guillermo lives with 4 children (14, 5, 4, 3 yo currently staying with patient's mother) in a 2 floor apartment. Patient is able to ambulate stairs. Transportation: self, mother DME/HHC: Patient denies DME or previous HHC. Will monitor need for HHC to assist with wound care. Disposition Plan: Patient to discharge home with family support and follow-up plans in place. Laurel MONTES, RN, CM
[2020-04-30 11:25] VITALS: BP 142/76; PULSE 64; RESP 16; TEMP 36.7; O2SAT 96
--- NOTE | 2020-04-30 11:30 | NURSING ---
wound photo: chin
[2020-04-30] MEDS: 0.9% Normal Saline 1,000 ML 50 ML IV (11:31)
--- NOTE | 2020-04-30 13:38 | PCM.PN.HOSP ---
<Garo Brizuela PA - Last Filed: 04/30/20 13:38> Patient Problems: Active and Suspected Problems Facial abscess (Acute) Reason for Visit: facial abscess Subjective: Pt reports minimal improvement in swelling, pain. No fever/chills. She does now have some purulent drainage which has been sent for culture. She otherwise is doing well no complaints. Vitals/I&O's: Vital Signs Temp Pulse Resp BP Pulse Ox 98.1 F 64 16 142/76 H 96 04/30/20 11:25 04/30/20 11:25 04/30/20 11:25 04/30/20 11:25 04/30/20 11:25 Oxygen Delivery Method Room Air Weight: 248 lb 3.2 oz Body Mass Index (BMI) 42.5 Intake and Output for Last 24 Hours 04/28/20 04/29/20 04/30/20 23:59 23:59 23:59 Intake Total 935 / 935 1160.67 / 1160.67 Balance 935 / 935 1160.67 / 1160.67 General: Alert, Oriented x3, Cooperative HEENT: Atraumatic, PERRLA, EOMI, Normocephalic, - - ongoing swelling erythema and tenderness. Some purulent drainage today Neck: Supple, No JVD, Negative Carotid Bruits Lungs: Clear to auscultation, Normal air movement Cardiovascular: Regular rate, No murmurs Abdomen: Bowel Sounds Present, Soft, Non Tender Extremities: No edema, Capillary Refill Less than 3 Seconds Skin: No rashes, No breakdown Musculoskeletal: No Tenderness to Palpation of Joints or Extremities Neurological: Cranial nerves II-XII grossly intact Psych/Mental Status: Normal Affect, Appropriate Laboratory Results 04/29/20 17:25: WBC 11.8 H, RBC 4.33, Hgb 12.8, Hct 38.8, MCV 89.6, MCH 29.6, MCHC 33.0, RDW Std Deviation 43.4, RDW Coeff of Christiano 13.2, Plt Count 212, MPV 10.5, Immature Gran % (Auto) 0.500, Neut % (Auto) 82.9 H, Lymph % (Auto) 11.3 L, [place] % (Auto) 5.2, Eos % (Auto) 0.0, Baso % (Auto) 0.1, Absolute Neuts (auto) 9.8 H, Absolute Lymphs (auto) 1.33, Nucleated RBC % 0 04/29/20 17:25: Sodium 137, Potassium 3.4 L, Chloride 102, Carbon Dioxide 31.0, Anion Gap 4 L, BUN 14, Creatinine 0.79, Estim Creat Clear Calc 76.84, Est GFR (MDRD) Af Amer 101, Est GFR (MDRD) Non-Af 83, BUN/Creatinine Ratio 17.7, Glucose 99, Calcium 8.9 04/30/20 05:56: Sodium 138, Potassium 3.8, Chloride 105, Carbon Dioxide 30.0, Anion Gap 3 L, BUN 16, Creatinine 0.72, Estim Creat Clear Calc 84.31, Est GFR (MDRD) Af Amer 111, Est GFR (MDRD) Non-Af 92, BUN/Creatinine Ratio 22.1 H, Glucose 102, Calcium 8.0 L 04/30/20 05:56: WBC 9.1, RBC 4.06 L, Hgb 11.8 L, Hct 36.7 L, MCV 90.4, MCH 29.1, MCHC 32.2, RDW Std Deviation 43.3, RDW Coeff of Christiano 13.1, Plt Count 191, MPV 10.4, Immature Gran % (Auto) 0.600, Neut % (Auto) 79.9 H, Lymph % (Auto) 13.5 L, [place] % (Auto) 5.7, Eos % (Auto) 0.1, Baso % (Auto) 0.2, Absolute Neuts (auto) 7.3, Absolute Lymphs (auto) 1.23, Nucleated RBC % 0 04/30/20 : S.aureus Protein A PCR Pending, MRSA (PCR) Pending Current Medications Atenolol (Atenolol 50 Mg Tablet) 50 mg PO QHS [facility] Last Admin: 04/29/20 21:10 Dose: Not Given Documented by: Clonazepam (Clonazepam 1 Mg Tablet) 1 mg PO DAILY PRN PRN PRN Reason: ANXIETY Etodolac (Etodolac 300 Mg Capsule) 300 mg PO BID [facility] Last Admin: 04/30/20 10:40 Dose: 300 mg Documented by: Ampicillin Sodium/Sulbactam (Sodium 3 gm/ Sodium Chloride) 112 mls @ 150 mls/hr IV Q6 [facility] Last Admin: 04/30/20 12:35 Dose: 150 mls/hr Documented by: Vancomycin IV Pharmacy to Dose (1 ea/ Sodium Chloride) 500 mls @ 250 mls/hr IV X1 PRN; Protocol PRN Reason: Rx to Dose Vancomycin HCl 1,250 mg/ (Sodium Chloride) 275 mls @ 167 mls/hr IV Q12H [facility] Last Infusion: 04/30/20 09:48 Dose: Infused Documented by: Sodium Chloride () 1,000 mls @ 50 mls/hr IV .Q20H [facility] Last Infusion: 04/30/20 12:37 Dose: 50 mls/hr Documented by: Nifedipine (Nifedipine 30 Mg Tablet) 30 mg PO QHS [facility] Last Admin: 04/29/20 21:10 Dose: Not Given Documented by: Ondansetron HCl (Ondansetron 4 Mg/2 Ml Vial) 4 mg IV Q8H PRN PRN PRN Reason: NAUSEA/VOMITING Oxycodone HCl (Oxycodone 5 Mg Tablet) 10 mg PO Q4H PRN PRN PRN Reason: Pain Score 4-10 Last Admin: 04/30/20 08:23 Dose: 10 mg Documented by: Pantoprazole Sodium (Pantoprazole Sodium 40 Mg Tablet) 40 mg PO BID [facility] Last Admin: 04/30/20 10:41 Dose: 40 mg Documented by: Sertraline HCl (Sertraline 100 Mg Tablet) 200 mg PO DAILY [facility] Last Admin: 04/30/20 10:40 Dose: 200 mg Documented by: Sodium Chloride (0.9% Saline Lock 10 Ml Syringe) 10 - 40 ml IV UD PRN PRN Reason: SALINE FLUSH Tizanidine HCl (Tizanidine Hcl 2 Mg Tablet) 4 mg PO TID PRN PRN PRN Reason: MUSCLE SPASM Last Admin: 04/29/20 21:15 Dose: 4 mg Documented by: STROKE Vital Signs/Narrative: Vital Signs Temp Pulse Resp BP Pulse Ox 04/30/20 11:25 98.1 F 64 16 142/76 H 96 Medical Necessity - Tobacco Use Smoking Status: Never smoker Tobacco Use: Non-smoker Assessment/Plan All Active Problems Facial abscess (Acute) Radiculopathy, cervical region (Acute) Radiculopathy, cervical region (Acute) Other cervical disc degeneration, mid-cervical region, unspecified level (Acute) Other cervical disc degeneration, mid-cervical region, unspecified level (Acute) Mid-cervical disc disorder, unspecified level (Acute) Cervical disc disorder with radiculopathy of mid-cervical region (Acute) Low back pain (Acute) Spondylosis of lumbar region without myelopathy or radiculopathy (Acute) Sciatica due to displacement of lumbar intervertebral disc (Acute) Intervertebral disc disorder with radiculopathy of lumbar region (Acute) Intervertebral disc disorder with radiculopathy of lumbar region (Acute) Other intervertebral disc degeneration, lumbar region (Acute) Other intervertebral disc degeneration, lumbar region (Acute) 1. Facial abscess - CT two days prior with abscess formation. CT soft tissue neck pending. Leukocytosis resolved. Failed outpatient clinda. I&D 2 days prior with minimal drainage. Continue vancomycin, Unasyn. culture sent. Plastic surgery consulted. 2. Morbid obesity - pigment mixer eval 3. HTN - continue home meds 4. Anxiety/Depression - continue home meds 5. GERD - PPI DVT ppx: early ambulation This patient was seen by Garo Brizuela PA-C under the supervision of Dr. Espinoza <Miguel Espinoza - Last Filed: 04/30/20 14:46> Objective: Follow-up for facial abscess Patient has swelling over the chin area with a pus point at the [place]. There is swelling of the mental region extending up to the upper neck. No pain or difficulty in swallowing, speech. Physical exam General: Alert, Oriented x3, Cooperative HEENT: Erythema, induration, swelling and tenderness of chin along with abscess. Atraumatic, PERRLA, EOMI, Normocephalic Oral: Per oral exam, no opening or sinus tract noticed. Lower incisors teeth are intact. Upper jaw edentulous and has dentures Neck: Supple, No JVD, Negative Carotid Bruits Lungs: Air entry diminished in bilateral lung bases. No crepitation/rhonchi Cardiovascular: Regular rate, Regular Rhythm, Normal S1, Normal S2, No murmurs Abdomen: Bowel Sounds Present, Soft, Non Tender, Non-Distended : No renal angle tenderness. No suprapubic tenderness. Extremities: No edema, Capillary Refill Less than 3 Seconds Skin: No rashes, No breakdown Musculoskeletal: No Tenderness to Palpation of Joints or Extremities Neurological: Cranial nerves II-XII grossly intact, Deep Tendon Reflexes 2+/4 and Symmetrical, Neuro grossly intact Psych/Mental Status: Normal Affect, Appropriate. Vitals/I&O's: Vital Signs Temp Pulse Resp BP Pulse Ox 98.1 F 64 16 142/76 H 96 04/30/20 11:25 04/30/20 11:25 04/30/20 11:25 04/30/20 11:25 04/30/20 11:25 Oxygen Delivery Method Room Air Weight: 248 lb 3.2 oz Body Mass Index (BMI) 42.5 Intake and Output for Last 24 Hours 04/28/20 04/29/20 04/30/20 23:59 23:59 23:59 Intake Total 935 / 935 1272.67 / 1272.67 Balance 935 / 935 1272.67 / 1272.67 Laboratory Results 04/29/20 17:25: WBC 11.8 H, RBC 4.33, Hgb 12.8, Hct 38.8, MCV 89.6, MCH 29.6, MCHC 33.0, RDW Std Deviation 43.4, RDW Coeff of Christiano 13.2, Plt Count 212, MPV 10.5, Immature Gran % (Auto) 0.500, Neut % (Auto) 82.9 H, Lymph % (Auto) 11.3 L, [place] % (Auto) 5.2, Eos % (Auto) 0.0, Baso % (Auto) 0.1, Absolute Neuts (auto) 9.8 H, Absolute Lymphs (auto) 1.33, Nucleated RBC % 0 04/29/20 17:25: Sodium 137, Potassium 3.4 L, Chloride 102, Carbon Dioxide 31.0, Anion Gap 4 L, BUN 14, Creatinine 0.79, Estim Creat Clear Calc 76.84, Est GFR (MDRD) Af Amer 101, Est GFR (MDRD) Non-Af 83, BUN/Creatinine Ratio 17.7, Glucose 99, Calcium 8.9 04/30/20 05:56: Sodium 138, Potassium 3.8, Chloride 105, Carbon Dioxide 30.0, Anion Gap 3 L, BUN 16, Creatinine 0.72, Estim Creat Clear Calc 84.31, Est GFR (MDRD) Af Amer 111, Est GFR (MDRD) Non-Af 92, BUN/Creatinine Ratio 22.1 H, Glucose 102, Calcium 8.0 L 04/30/20 05:56: WBC 9.1, RBC 4.06 L, Hgb 11.8 L, Hct 36.7 L, MCV 90.4, MCH 29.1, MCHC 32.2, RDW Std Deviation 43.3, RDW Coeff of Christiano 13.1, Plt Count 191, MPV 10.4, Immature Gran % (Auto) 0.600, Neut % (Auto) 79.9 H, Lymph % (Auto) 13.5 L, [place] % (Auto) 5.7, Eos % (Auto) 0.1, Baso % (Auto) 0.2, Absolute Neuts (auto) 7.3, Absolute Lymphs (auto) 1.23, Nucleated RBC % 0 04/30/20 : S.aureus Protein A PCR Pending, MRSA (PCR) Pending Current Medications Atenolol (Atenolol 50 Mg Tablet) 50 mg PO QHS [facility] Last Admin: 04/29/20 21:10 Dose: Not Given Documented by: Clonazepam (Clonazepam 1 Mg Tablet) 1 mg PO DAILY PRN PRN PRN Reason: ANXIETY Etodolac (Etodolac 300 Mg Capsule) 300 mg PO BID [facility] Last Admin: 04/30/20 10:40 Dose: 300 mg Documented by: Ampicillin Sodium/Sulbactam (Sodium 3 gm/ Sodium Chloride) 112 mls @ 150 mls/hr IV Q6 [facility] Last Infusion: 04/30/20 13:20 Dose: Infused Documented by: Vancomycin IV Pharmacy to Dose (1 ea/ Sodium Chloride) 500 mls @ 250 mls/hr IV X1 PRN; Protocol PRN Reason: Rx to Dose Vancomycin HCl 1,250 mg/ (Sodium Chloride) 275 mls @ 167 mls/hr IV Q12H [facility] Last Infusion: 04/30/20 09:48 Dose: Infused Documented by: Sodium Chloride () 1,000 mls @ 50 mls/hr IV .Q20H [facility] Last Infusion: 04/30/20 12:37 Dose: 50 mls/hr Documented by: Nifedipine (Nifedipine 30 Mg Tablet) 30 mg PO QHS [facility] Last Admin: 04/29/20 21:10 Dose: Not Given Documented by: Ondansetron HCl (Ondansetron 4 Mg/2 Ml Vial) 4 mg IV Q8H PRN PRN PRN Reason: NAUSEA/VOMITING Oxycodone HCl (Oxycodone 5 Mg Tablet) 10 mg PO Q4H PRN PRN PRN Reason: Pain Score 4-10 Last Admin: 04/30/20 13:55 Dose: 10 mg Documented by: Pantoprazole Sodium (Pantoprazole Sodium 40 Mg Tablet) 40 mg PO BID [facility] Last Admin: 04/30/20 10:41 Dose: 40 mg Documented by: Sertraline HCl (Sertraline 100 Mg Tablet) 200 mg PO DAILY [facility] Last Admin: 04/30/20 10:40 Dose: 200 mg Documented by: Sodium Chloride (0.9% Saline Lock 10 Ml Syringe) 10 - 40 ml IV UD PRN PRN Reason: SALINE FLUSH Tizanidine HCl (Tizanidine Hcl 2 Mg Tablet) 4 mg PO TID PRN PRN PRN Reason: MUSCLE SPASM Last Admin: 04/29/20 21:15 Dose: 4 mg Documented by: STROKE Vital Signs/Narrative: Vital Signs Temp Pulse Resp BP Pulse Ox 04/30/20 11:25 98.1 F 64 16 142/76 H 96 Assessment/Plan This patient was seen in conjunction with Garo FORREST. I have independently interviewed and examined the patient and reviewed pertinent history, examination findings, laboratory and plan of management. I have reviewed the note and agree with the documented findings with the few additional points. In brief, patient is admitted for facial, chin abscess with surrounding cellulitis. CT of the face and soft tissue neck are done but not reported yet. On my independent review, there is soft tissue infiltration of the chin region and does not seem to involve bone. Discussed with the ID. Continue vancomycin and Unasyn. Patient needs incision and drainage therefore oral surgeon Dr Last was called but he said her oral dentures are normal therefore he suggested to consult other surgeon. I talked to Dr. Parnell and consulted. Rest of the comorbidities as mentioned above. I have discussed my assessment with Garo FORREST and orders have been reviewed. Inpatient E&M: [id number] [facility] Hosp L2
[2020-04-30 15:53] LABS: M R Staph aureus DNA By PCR POSITIVE (Negative); Probe Check PASS; Staph aureus DNA By PCR POSITIVE (Negative)
--- NOTE | 2020-04-30 16:25 | CON.PCM_ITS ---
Problem List (1) Facial abscess Status: Acute Reason for Consult: facial abscess Consulted by: Dr. Espinoza History of Present Illness: The patient is a 45 year old F presented 04/29 with 4 days of progressive chin redness, pain, swelling. No inciting event. No drainage at home. No fever or chills. Now with spread into her neck with some difficulty swallowing. I&D attempted in ED, now with purulence. On vanc/unasyn. Full ROS performed and neg except as noted above. - Medical History Past Medical History (Chronic Problems): Chronic Problems Morbid obesity (Chronic) HTN (hypertension) (Chronic) GERD (gastroesophageal reflux disease) (Chronic) Depression (Chronic) Low back pain (Chronic) Spondylosis of lumbar region without myelopathy or radiculopathy (Chronic) Allergies/Adverse Reactions: Allergies bupropion Allergy (Verified 04/29/20 16:57) Itching Home Medications: Ambulatory Orders Medication Instructions Recorded NIFEdipine [Procardia Xl] 30 mg PO DAILY 12/14/14 Atenolol [Tenormin (beta may)] 50 mg PO DAILY 07/17/16 Clonazepam [Clonazepam Tab.Rapdis] 1 mg PO DAILY PRN 07/17/16 Omeprazole [Prilosec] 40 mg PO BID 07/17/16 Hydrocodone/Acetaminophen [[place] 1 each PO BID PRN 04/22/17 5-325 Tablet] Clindamycin [Cleocin] 300 mg PO 4X/DAY #80 cap 04/28/20 Nabumetone [Relafen] 750 mg PO BID 04/29/20 Sertraline HCl [Zoloft] 200 mg PO DAILY 04/29/20 Tizanidine HCl [Zanaflex] 4 mg PO TID PRN 04/29/20 - Social History Tobacco Use: non-smoker Vital Signs Temp Pulse Resp BP Pulse Ox 98.1 F 64 16 142/76 H 96 04/30/20 11:25 04/30/20 11:25 04/30/20 11:25 04/30/20 11:25 04/30/20 11:25 Oxygen Delivery Method Room Air Weight: 112.6 kg Body Mass Index (BMI) 42.5 Laboratory Tests Past 24 Hrs 04/29/20 04/29/20 04/30/20 17:25 17:25 05:56 WBC 11.8 H RBC 4.33 Hgb 12.8 Hct 38.8 MCV 89.6 MCH 29.6 MCHC 33.0 RDW Std Deviation 43.4 RDW Coeff of Christiano 13.2 Plt Count 212 MPV 10.5 Immature Gran % (Auto) 0.500 Neut % (Auto) 82.9 H Lymph % (Auto) 11.3 L [place] % (Auto) 5.2 Eos % (Auto) 0.0 Baso % (Auto) 0.1 Absolute Neuts (auto) 9.8 H Absolute Lymphs (auto) 1.33 Nucleated RBC % 0 Sodium 137 138 Potassium 3.4 L 3.8 Chloride 102 105 Carbon Dioxide 31.0 30.0 Anion Gap 4 L 3 L BUN 14 16 Creatinine 0.79 0.72 Estim Creat Clear Calc 76.84 84.31 Est GFR (MDRD) Af Amer 101 111 Est GFR (MDRD) Non-Af 83 92 BUN/Creatinine Ratio 17.7 22.1 H Glucose 99 102 Calcium 8.9 8.0 L S.aureus Protein A PCR MRSA (PCR) 04/30/20 04/30/20 05:56 Unknown WBC 9.1 RBC 4.06 L Hgb 11.8 L Hct 36.7 L MCV 90.4 MCH 29.1 MCHC 32.2 RDW Std Deviation 43.3 RDW Coeff of Christiano 13.1 Plt Count 191 MPV 10.4 Immature Gran % (Auto) 0.600 Neut % (Auto) 79.9 H Lymph % (Auto) 13.5 L [place] % (Auto) 5.7 Eos % (Auto) 0.1 Baso % (Auto) 0.2 Absolute Neuts (auto) 7.3 Absolute Lymphs (auto) 1.23 Nucleated RBC % 0 Sodium Potassium Chloride Carbon Dioxide Anion Gap BUN Creatinine Estim Creat Clear Calc Est GFR (MDRD) Af Amer Est GFR (MDRD) Non-Af BUN/Creatinine Ratio Glucose Calcium S.aureus Protein A PCR POSITIVE H MRSA (PCR) POSITIVE H - Other Studies Radiology: [] reviewed Other Studies: [] Route of nutrition/ use of supplements: [] Nutritional Intake: [] IV Site: [] Coyle Catheter: [] - Physical Exam General: Alert, Oriented x3, Cooperative HEENT: Atraumatic, PERRLA, EOMI Neck: - - neck and chin induration, tenderness, redness. Purulence from chin. Lungs: Clear to auscultation, Normal air movement Cardiovascular: Regular rate, Regular Rhythm Abdomen: Soft, Non Tender, Non-Distended Extremities: No edema Skin: No rashes - no other rashes Musculoskeletal: No Tenderness to Palpation of Joints or Extremities Neurological: Cranial nerves II-XII grossly intact - Assessment/Plan Antibiotics: [] Assessment/Plan: [] Active and Suspected Problems Facial abscess (Acute) Will order wound cx and mrsa pcr of purulent drainage. Cont vanc/unasyn. Recommend surgery eval and CT neck given spread and c/o dysphagia. Will follow, thank you, d/w Dr. Espinoza
--- NOTE | 2020-04-30 17:44 | CON.PCM_ITS ---
Reason for Consult Date of Consultation: 04/30/20 Reason for Consultation: Chin and upper neck abscess. REFERRING PHYSICIAN: Dr. Espinoza. TALENT ACQUISITION ASSOCIATE: Dr. Parnell. History of Present Illness: 45 year old F was admitted for a worsening abscess left chin extending onto upper anterior neck. She had gone to the ED a few days prior and an I&D was attempted with no significant drainage. She was sent home on po antibiotics and the abscess worsened which prompted the admission. She is currently on V ancomycin and Unasyn. WBC on admission was 11.8 and has decreased to normal at 9.1. She had CT scan done of the face on 04/30/20 which showed diffuse induration of the subcutaneous fat anterior and inferior to the mandible consistent with cellulitis. I suspect the left platysma muscle is involved. CT scan of the neck was done on 04/30/20 which showed diffuse induration of the subcutaneous fat anterior and inferior to the mandible consistent with cellulitis. No abscess noted. I suspect that left platysma muscle is also involved but there are no erosive changes noted in the mandible. She denies fever. There is some discomfort when she swallows. She denies tooth pain. She wears upper dentures. I was asked to evaluate this patient for surgical options for treatment. Past Medical History Past Medical History (Chronic Problems): Chronic Problems Morbid obesity (Chronic) HTN (hypertension) (Chronic) GERD (gastroesophageal reflux disease) (Chronic) Depression (Chronic) Low back pain (Chronic) Spondylosis of lumbar region without myelopathy or radiculopathy (Chronic) Allergies bupropion Allergy (Verified 04/29/20 16:57) Itching Home Medications: Ambulatory Orders Medication Instructions Recorded NIFEdipine [Procardia Xl] 30 mg PO DAILY 12/14/14 Atenolol [Tenormin (beta may)] 50 mg PO DAILY 07/17/16 Clonazepam [Clonazepam Tab.Rapdis] 1 mg PO DAILY PRN 07/17/16 Omeprazole [Prilosec] 40 mg PO BID 07/17/16 Hydrocodone/Acetaminophen [[place] 1 each PO BID PRN 04/22/17 5-325 Tablet] Clindamycin [Cleocin] 300 mg PO 4X/DAY #80 cap 04/28/20 Nabumetone [Relafen] 750 mg PO BID 04/29/20 Sertraline HCl [Zoloft] 200 mg PO DAILY 04/29/20 Tizanidine HCl [Zanaflex] 4 mg PO TID PRN 04/29/20 Surgical History: noncontributory, cholecystectomy, hysterectomy Psychiatric History: Anxiety, Depression MANAGER PRIVATE History: No pertinent MANAGER PRIVATE history Lives: With Family Smoking Status: Never smoker Tobacco Use: Non-smoker Alcohol: None Drugs: None - *Family History Maternal History Items: Diabetes Paternal History Items: - - aortic aneurysm Review of Systems Comment: Constitutional: Denies: Chills, Fever, Weight Change, Fatigue. HEENT: Reports: - - facial wound, swelling, erythema, pain. Denies: Head Aches, Sinus Congestion, Sinus Drainage. Cardiovascular: Denies: Chest Pain, Edema, Light Headedness, Palpitations. Respiratory: Denies: Cough, Shortness of Breath, Shortness of breath at rest, Sputum production. Gastrointestinal: Denies: Abdominal Pain, Diarrhea, Nausea, Vomiting. Genitourinary: Denies: Dysuria, He sitancy, Urgency. Musculoskeletal: Denies: Joint Pain, Joint Tenderness. Skin: Denies: Lesions, Rash, Wounds. Neurological: Denies: Numbness, Tingling, Focal weakness. Psychiatric: Denies: Anxiety, Depression, Homicidal Ideations, Suicidal Ideations. Hematologic/ Lymphatic: Denies: Easy Bruising, Easy Bleeding Patient Problems: Active and Suspected Problems Facial abscess (Acute) - Physical Exam Vitals/I&O's: General: Alert, Oriented x3. HEENT: PERRLA, EOMI. - - On the left chin is an abscess that measures 3 x 2 cm. Surrounding redness and induration. Some tenderness to palpation. There is a wound opening from the recent I&D with some purulence noted. The induration extends onto the upper anterior neck. Measures 4 cm. Tender to palpation. Lower teeth are nontender. She has upper dentures. Neck: Supple, No cervical adenopathy. Area of induration upper anterior neck that measures 4 cm. Tender to palpation. No purulent drainage. Lungs: Clear to auscultation. Cardiovascular: Regular rate. Abdomen: Soft, Nondistended. Extremities: No edema, Capillary Refill Less than 3 Seconds Musculoskeletal: No Tenderness to Palpation of Joints or Extremities Neurological: Cranial nerves II-XII grossly intact. Psych/Mental Status: Normal Affect, Appropriate. Vital Signs Temp Pulse Resp BP Pulse Ox 98.1 F 64 16 142/76 H 96 04/30/20 11:25 04/30/20 11:25 04/30/20 11:25 04/30/20 11:25 04/30/20 11:25 Oxygen Delivery Method Room Air Weight: 248 lb 3.848 oz Body Mass Index (BMI) 42.5 Intake and Output for Last 24 Hours 04/28/20 04/29/20 04/30/20 23:59 23:59 23:59 Intake Total 935 / 935 1272.67 / 1272.67 Balance 935 / 935 1272.67 / 1272.67 Laboratory Results 04/29/20 17:25: Sodium 137, Potassium 3.4 L, Chloride 102, Carbon Dioxide 31.0, Anion Gap 4 L, BUN 14, Creatinine 0.79, Estim Creat Clear Calc 76.84, Est GFR (MDRD) Af Amer 101, Est GFR (MDRD) Non-Af 83, BUN/Creatinine Ratio 17.7, Glucose 99, Calcium 8.9 04/30/20 05:56: Sodium 138, Potassium 3.8, Chloride 105, Carbon Dioxide 30.0, Anion Gap 3 L, BUN 16, Creatinine 0.72, Estim Creat Clear Calc 84.31, Est GFR (MDRD) Af Amer 111, Est GFR (MDRD) Non-Af 92, BUN/Creatinine Ratio 22.1 H, Glucose 102, Calcium 8.0 L 04/30/20 05:56: WBC 9.1, RBC 4.06 L, Hgb 11.8 L, Hct 36.7 L, MCV 90.4, MCH 29.1, MCHC 32.2, RDW Std Deviation 43.3, RDW Coeff of Christiano 13.1, Plt Count 191, MPV 10.4, Immature Gran % (Auto) 0.600, Neut % (Auto) 79.9 H, Lymph % (Auto) 13.5 L, [place] % (Auto) 5.7, Eos % (Auto) 0.1, Baso % (Auto) 0.2, Absolute Neuts (auto) 7.3, Absolute Lymphs (auto) 1.23, Nucleated RBC % 0 04/30/20 : S.aureus Protein A PCR POSITIVE H, MRSA (PCR) POSITIVE H Diagnostic Data Facial/Sinus 04/30/20 11:15 IMPRESSION: Diffuse induration of the subcutaneous fat anterior and inferior to the mandible consistent with cellulitis. I suspect the left platysma muscle is involved. Electronically Signed: Reg Ahuja MD at 16:15 EST , Service support , Soft Tissue Neck CT 04/30/20 11:18 IMPRESSION: Diffuse induration of the subcutaneous fat anterior and inferior to the mandible consistent with cellulitis. No abscess noted. I suspect that left platysma muscle is also involved but there are no erosive changes noted in the mandible Electronically Signed: Reg Ahuja MD at 16:13 EST , Service support , Current Medications Atenolol (Atenolol 50 Mg Tablet) 50 mg PO QHS [facility] Last Admin: 04/29/20 21:10 Dose: Not Given Documented by: Clonazepam (Clonazepam 1 Mg Tablet) 1 mg PO DAILY PRN PRN PRN Reason: ANXIETY Etodolac (Etodolac 300 Mg Capsule) 300 mg PO BID [facility] Last Admin: 04/30/20 10:40 Dose: 300 mg Documented by: Ampicillin Sodium/Sulbactam (Sodium 3 gm/ Sodium Chloride) 112 mls @ 150 mls/hr IV Q6 [facility] Last Infusion: 04/30/20 13:20 Dose: Infused Documented by: Vancomycin IV Pharmacy to Dose (1 ea/ Sodium Chloride) 500 mls @ 250 mls/hr IV X1 PRN; Protocol PRN Reason: Rx to Dose Vancomycin HCl 1,250 mg/ (Sodium Chloride) 275 mls @ 167 mls/hr IV Q12H [facility] Last Infusion: 04/30/20 09:48 Dose: Infused Documented by: Sodium Chloride () 1,000 mls @ 50 mls/hr IV .Q20H [facility] Last Infusion: 04/30/20 12:37 Dose: 50 mls/hr Documented by: Nifedipine (Nifedipine 30 Mg Tablet) 30 mg PO QHS [facility] Last Admin: 04/29/20 21:10 Dose: Not Given Documented by: Ondansetron HCl (Ondansetron 4 Mg/2 Ml Vial) 4 mg IV Q8H PRN PRN PRN Reason: NAUSEA/VOMITING Oxycodone HCl (Oxycodone 5 Mg Tablet) 10 mg PO Q4H PRN PRN PRN Reason: Pain Score 4-10 Last Admin: 04/30/20 13:55 Dose: 10 mg Documented by: Pantoprazole Sodium (Pantoprazole Sodium 40 Mg Tablet) 40 mg PO BID [facility] Last Admin: 04/30/20 10:41 Dose: 40 mg Documented by: Sertraline HCl (Sertraline 100 Mg Tablet) 200 mg PO DAILY [facility] Last Admin: 04/30/20 10:40 Dose: 200 mg Documented by: Sodium Chloride (0.9% Saline Lock 10 Ml Syringe) 10 - 40 ml IV UD PRN PRN Reason: SALINE FLUSH Tizanidine HCl (Tizanidine Hcl 2 Mg Tablet) 4 mg PO TID PRN PRN PRN Reason: MUSCLE SPASM Last Admin: 04/29/20 21:15 Dose: 4 mg Documented by: Assessment/Plan All Active Problems Abscess of neck (Acute) Abscess of chin (Acute) Facial abscess (Acute) Radiculopathy, cervical region (Acute) Radiculopathy, cervical region (Acute) Other cervical disc degeneration, mid-cervical region, unspecified level (Acute) Other cervical disc degeneration, mid-cervical region, unspecified level (Acute) Mid-cervical disc disorder, unspecified level (Acute) Cervical disc disorder with radiculopathy of mid-cervical region (Acute) Low back pain (Acute) Spondylosis of lumbar region without myelopathy or radiculopathy (Acute) Sciatica due to displacement of lumbar intervertebral disc (Acute) Intervertebral disc disorder with radiculopathy of lumbar region (Acute) Intervertebral disc disorder with radiculopathy of lumbar region (Acute) Other intervertebral disc degeneration, lumbar region (Acute) Other intervertebral disc degeneration, lumbar region (Acute) 1. Abscess left chin. 2. Abscess upper anterior neck. 3. History of MRSA. Continue Vancomycin and Unasyn. CT scans face and neck from 04/30/20 were reviewed. Recommend operative intervention with surgical preparation left chin and upper anterior neck with incision and drainage and excisional debridement abscess. Will send tissue to Pathology for analysis to rule out carcinoma and to Microbiology for culture. A positive culture will necessitate antibiotic therapy. Surgery will be done under general anesthesia and will plan on proceeding with the surgery tomorrow. Will leave the wound open and begin postop wound care with Silver dressing changes. If there is a plateau in the healing process, can proceed with delayed closure with local skin flap or skin graft. The edema and inflammation would need to be resolved before considering her surgical options for wound closure. Anticipate increased metabolic demands from the infection and from the surgery. Will check a Prealbumin and encourage nutritional supplementation with protein to help the healing process. Patient was informed of the risks and complications of the procedure including alternatives to surgery. These were discussed with the patient personally. Patient voices understanding and wishes to proceed. Patient understands that the wounds will be left open for wound care with daily Silver dressing changes. We discussed the current risks associated with COVID-19. While it is understood that there is a community spread of COVID-19, the risk of aida COVID-19 while at [facility] ([facility]) is very low; however, the risk cannot be completely mitigated because of the community spread of the disease. We discussed in detail the risk of exposure to and/or potential harm posed by the COVID-19 virus with having a surgery/procedure at this time versus the risk of delaying the surgery/procedure. It is not possible to know either the risk of delaying the surgery or procedure or chance of getting an infection with perfect accuracy, but a joint decision was made to proceed at this time with the scheduled surgery/procedure as indicated on the consent form. Patient was notified that we will need to comply with any screening or testing [facility] wishes to perform or that surgery may be delayed for any positive results. Discussed with the patient that I was tested for COVID-19 on 10/05/19 which was negative and on 10/19/19 which was negative and on 11/02/19 which was negative and on 11/16/19 which was negative and on 11/30/19 which was negative and on 12/21/19 which was negative and on 01/11/20 which was negative and on 02/15/20 which was negative and on 03/07/20 which was negative and on 03/26/20 which was negative. My testing regimen at this time is to be COVID-19 tested every 2 weeks or so. I received the COVID-19 vaccine (Moderna) on 04/03/20. Procedure Criteria Procedure Type: Elective COVID Risk Discussion: The surgeon/proceduralist and patient have discussed in detail the risk of exposure to and/or potential harm posed by the COVID-19 virus with having a surgery/procedure at this time versus the risk of delaying the surgery/procedure. It is not possible to know either the risk of delaying the surgery or procedure or chance of getting an infection with perfect accuracy, but a joint decision was made between the patient and the surgeon/proceduralist to proceed at this time with the scheduled surgery/procedure as indicated on the consent form. Inpatient E&M: 44336 Init Hosp L2 - ICD-10 - L02.01, L02.11
[2020-04-30 17:48] VITALS: BP 151/80; PULSE 66; RESP 18; TEMP 36.7; O2SAT 100
[2020-04-30 19:23] LABS: M R Staph aureus DNA By PCR POSITIVE (Negative); Probe Check PASS; Staph aureus DNA By PCR POSITIVE (Negative)
[2020-04-30 22:40] VITALS: BP 127/68; PULSE 65; RESP 16; TEMP 36.4; O2SAT 97
[2020-04-30] MEDS: NIFEdipine 30 MG Tablet PO (22:43)
[2020-04-30] MEDS: Atenolol 50 MG Tablet PO (22:43)
[2020-05-01] VITALS (10 sets, daily range): BP systolic 102–169; BP diastolic 49–93; PULSE 62–76; RESP 16–18; TEMP 36.1–37; O2SAT 94–100; BMI 42.6
--- NOTE | 2020-05-01 | ABS_PTH ---
PATIENT: FARAZ TEJEDA LOC: MS3 U#:[id number] AGE/SX: 45/F ROOM: MA319 RE04/29/[address]: Dr. Miguel Espinoza MD : 1975 BED: 1 DIS: 05/03/2020 SPEC #: [id number] RECD: 05/02/20 07:52 STATUS: PIYUSH REQ #: [id number] MARGARITA: 05/01/20 00:[address]: Benjamin Parnell DEPT: SURGICAL PATHOLOGY RECD BY: Catrachito Lees ENTERED: 05/02/20 07:52 SP TYPE: Abscess OTHR DR: MD Dr. Aftab Dahl MD Dr. Mark Tereletsky, DO Dr. Prakash Chand, MD Dr. Robert Leininger, MD Tissues: Neck, NOS Procedures: Surgery Specimen Level IV Comments: @ Ordering doctor for SUIII edited from to @ by BIRD at 05/02/20 0943 @ Submitting doctor edited from to @ by RGOOD at 05/02/20 0943 HEADER OPERATION: Incision, drainage abscess, chin and upper neck PRE-OP DIAGNOSIS: Chin and upper neck abscess TISSUE SUBMITTED: Chin and upper neck abscess MICROSCOPIC DIAGNOSIS Skin and soft tissue of chin and upper neck, biopsy: Ulceration with acute and chronic inflammation, granulation and abscess formation. AM:debbi 05/03/2020 MICROSCOPIC DESCRIPTION Slides are reviewed. GROSS DESCRIPTION Received in fixative is one container labeled with the patient's name and designated chin and upper neck abscess. The specimen consists of three irregular fragments of skin and attached yellow fatty tissue that in aggregate measure 4 x 3 cm and a depth of excision measuring 1 cm in greatest dimension. No cutaneous lesions are identified. Serial sections do not reveal mass lesions. Boat Outfitting Supervisor sections are submitted in two cassettes. / AM:debbi 05/02/20 TC:2 CPT: 98704
[2020-05-01] MEDS: oxyCODONE 5 MG Tablet 10 MG PO ×3 (00:30→22:41)
--- NOTE | 2020-05-01 05:00 | EKG12_ITS ---
Test Reason : PRE-OP Blood Pressure : / mmHG Vent. Rate : 070 BPM Atrial Rate : 070 BPM P-R Int : 132 ms QRS Dur : 076 ms QT Int : 406 ms P-R-T Axes : 028 007 016 degrees QTc Int : 438 ms Normal sinus rhythm Normal ECG When compared with ECG of 14-DEC-2014 09:10, No significant change was found Confirmed by CHARISSA RENEE, LUDIVINA ([id number]), research editor LATISHA HUTCHINSON ([id number]) on 05/06/2020 12:23:59 PM Referred By: PADMINI Confirmed By:RAMIRO CARRINGTON MD
[2020-05-01 05:46] LABS: Absolute Lymphocyte Count 1.64 X10^3/uL (0.83-4.51); Absolute Neutrophil Count 6.1 X10^3/uL (2.0-7.7); Basophil# 0.02 X10^3/uL; Basophil% 0.2 % (0-1); Eosinophil# 0.03 X10^3/uL; Eosinophils% 0.4 % (0-5); Hematocrit 39.8 % (37-47); Hemoglobin 12.6 g/dL (12.0-15.0); Lymphocyte # 1.64 X10^3/ul (4.0); Lymphocyte % 19.7 % (19-41); Mean Corp Hgb Conc 31.7 g/dL (32-36); Mean Corpuscular Hgb 28.7 pg (27.0-32.0); Mean Corpuscular Volume 90.7 fL (81-99); Monocyte# 0.53 X10^3/uL; Monocyte% 6.4 % (0-10); NRBC Flagged by Analyzer 0 % (0-5); Neutrophil # 6.06 X10^3/uL (2.7-7.7); Neutrophil % 72.6 % (47-70); Platelet Count 229 K/mm3 (150-450); RBC Distribution Width SD 43.4 fl (35.1-43.9); Red Blood Count 4.39 M/mm3 (4.2-5.4); White Blood Count 8.3 K/mm3 (4.4-11.0)
[2020-05-01 06:13] LABS: Vancomycin, Trough Level 8.3 ug/mL (5.0-15.0)
--- NOTE | 2020-05-01 07:02 | PCM.RX.CS ---
Consult Pharmacy has been consulted to manage selected antiobiotic: Vancomycin Type of Consult: Follow-up Prior Doses of Antibiotics Received/Current Regimen: current regimen is 1250mg IV q12h Labs: Sodium 138 mmol/L (136-145) 04/30/20 05:56 Potassium 3.8 mmol/L (3.5-5.1) 04/30/20 05:56 Chloride 105 mmol/L (98-107) 04/30/20 05:56 Carbon Dioxide 30.0 mmol/L (21.0-32.0) 04/30/20 05:56 Anion Gap 3 (5-15) L 04/30/20 05:56 BUN 16 mg/dL (7-18) 04/30/20 05:56 Creatinine 0.72 mg/dL (0.55-1.02) 04/30/20 05:56 Est GFR (MDRD) Af Amer 111 mL/min (>60) 04/30/20 05:56 Est GFR (MDRD) Non-Af 92 mL/min (>60) 04/30/20 05:56 BUN/Creatinine Ratio 22.1 RATIO (10-20) H 04/30/20 05:56 Glucose 102 mg/dL (74-106) 04/30/20 05:56 Vancomycin Trough 8.3 ug/mL (5.0-15.0) 05/01/20 05:35 Microbiology: Microbiology 04/30/20 17:50 Mucosa - Nose SARS-CoV-2 Antigen (Rapid) - Final Weight used for dosin.6 kg Estimated Creatinine Clearance: 84ml/min Goal Trough: 10-15 mcg/mL Pharmacy Plan for Drug Dosing: The vanc trough drawn before this morning's dose was 8.3. Since it is below goal range, will increase next dose to 1500mg IV q12h. Since this morning's 1250mg dose was already hung, will start the 1500mg a couple hours earlier later today. Repeat trough again before the 4th new dose. Pharmacy Service will continue to monitor and adjust dosing as required. Follow-Up Labs: Trough Vancomycin Labs to be done on [date and time ordered]: 05/03/20 03:30
--- NOTE | 2020-05-01 08:33 | PCM.PN.HOSP ---
Patient Problems: Active and Suspected Problems Facial abscess (Acute) Objective: Heart rate and blood pressure in normal range. No fever. MRSA nasal screen positive. Seen by plastic surgeon Dr. Parnell. Vitals/I&O's: Vital Signs Temp Pulse Resp BP Pulse Ox 98.6 F 62 16 121/59 H 97 05/01/20 08:23 05/01/20 08:23 05/01/20 08:23 05/01/20 08:23 05/01/20 08:23 Oxygen Delivery Method Room Air Weight: 248 lb 3.848 oz Body Mass Index (BMI) 42.5 Intake and Output for Last 24 Hours 04/29/20 04/30/20 05/01/20 23:59 23:59 23:59 Intake Total 935 / 935 2279.67 / 2279.67 498.33 / 498.33 Output Total 1100 / 1100 1000 / 1000 Balance 935 / 935 1179.67 / 1179.67 -501.67 / -501.67 Microbiology Past 72 Hours 04/30/20 17:50 Mucosa - Nose SARS-CoV-2 Antigen (Rapid) - Final Laboratory Results 04/30/20 17:50: S.aureus Protein A PCR POSITIVE H, MRSA (PCR) POSITIVE H 04/30/20 : S.aureus Protein A PCR POSITIVE H, MRSA (PCR) POSITIVE H 05/01/20 05:35: Vancomycin Trough 8.3 05/01/20 05:35: WBC 8.3, RBC 4.39, Hgb 12.6, Hct 39.8, MCV 90.7, MCH 28.7, MCHC 31.7 L, RDW Std Deviation 43.4, RDW Coeff of Christiano 13.0, Plt Count 229, MPV 10.0, Immature Gran % (Auto) 0.700, Neut % (Auto) 72.6 H, Lymph % (Auto) 19.7, [place] % (Auto) 6.4, Eos % (Auto) 0.4, Baso % (Auto) 0.2, Absolute Neuts (auto) 6.1, Absolute Lymphs (auto) 1.64, Nucleated RBC % 0 Current Medications Atenolol (Atenolol 50 Mg Tablet) 50 mg PO QHS [facility] Last Admin: 04/30/20 22:43 Dose: 50 mg Documented by: Clonazepam (Clonazepam 1 Mg Tablet) 1 mg PO DAILY PRN PRN PRN Reason: ANXIETY Etodolac (Etodolac 300 Mg Capsule) 300 mg PO BID [facility] [place] Last Admin: 04/30/20 22:42 Dose: 300 mg Documented by: Vancomycin IV Pharmacy to Dose (1 ea/ Sodium Chloride) 500 mls @ 250 mls/hr IV X1 PRN; Protocol PRN Reason: Rx to Dose Vancomycin HCl 1,250 mg/ (Sodium Chloride) 275 mls @ 167 mls/hr IV Q12H [facility] [place] Stop: 05/01/20 09:30 Last Admin: 05/01/20 06:25 Dose: 167 mls/hr Documented by: Sodium Chloride () 1,000 mls @ 50 mls/hr IV .Q20H [facility] Last Infusion: 05/01/20 06:25 Dose: 0 mls/hr Documented by: Vancomycin HCl 1,500 mg/ (Sodium Chloride) 530 mls @ 250 mls/hr IV Q12H [facility] Nifedipine (Nifedipine 30 Mg Tablet) 30 mg PO QHS [facility] Last Admin: 04/30/20 22:43 Dose: 30 mg Documented by: Ondansetron HCl (Ondansetron 4 Mg/2 Ml Vial) 4 mg IV Q8H PRN PRN PRN Reason: NAUSEA/VOMITING Oxycodone HCl (Oxycodone 5 Mg Tablet) 10 mg PO Q4H PRN PRN PRN Reason: Pain Score 4-10 Last Admin: 05/01/20 00:30 Dose: 10 mg Documented by: Pantoprazole Sodium (Pantoprazole Sodium 40 Mg Tablet) 40 mg PO BID [facility] Last Admin: 04/30/20 22:42 Dose: 40 mg Documented by: Sertraline HCl (Sertraline 100 Mg Tablet) 200 mg PO DAILY [facility] Last Admin: 04/30/20 10:40 Dose: 200 mg Documented by: Sodium Chloride (0.9% Saline Lock 10 Ml Syringe) 10 - 40 ml IV UD PRN PRN Reason: SALINE FLUSH Tizanidine HCl (Tizanidine Hcl 2 Mg Tablet) 4 mg PO TID PRN PRN PRN Reason: MUSCLE SPASM Last Admin: 04/29/20 21:15 Dose: 4 mg Documented by: STROKE Vital Signs/Narrative: Vital Signs Temp Pulse Resp BP Pulse Ox 05/01/20 08:23 98.6 F 62 16 121/59 H 97 05/01/20 06:00 97.0 F L 67 16 102/49 L 95 Medical Necessity - Tobacco Use Smoking Status: Never smoker Tobacco Use: Non-smoker Assessment/Plan All Active Problems Facial abscess (Acute) Radiculopathy, cervical region (Acute) Radiculopathy, cervical region (Acute) Other cervical disc degeneration, mid-cervical region, unspecified level (Acute) Other cervical disc degeneration, mid-cervical region, unspecified level (Acute) Mid-cervical disc disorder, unspecified level (Acute) Cervical disc disorder with radiculopathy of mid-cervical region (Acute) Low back pain (Acute) Spondylosis of lumbar region without myelopathy or radiculopathy (Acute) Sciatica due to displacement of lumbar intervertebral disc (Acute) Intervertebral disc disorder with radiculopathy of lumbar region (Acute) Intervertebral disc disorder with radiculopathy of lumbar region (Acute) Other intervertebral disc degeneration, lumbar region (Acute) Other intervertebral disc degeneration, lumbar region (Acute)
[2020-05-01] MEDS: Pantoprazole Sodium 40 MG Tablet PO ×2 (09:20→22:38)
[2020-05-01] MEDS: Sertraline 100 MG Tablet 200 MG PO (09:20)
--- NOTE | 2020-05-01 11:39 | PN_ITS ---
<Garo Brizuela - Last Filed: 05/01/20 11:39> Patient Problems: Active and Suspected Problems Facial abscess (Acute) Reason for Visit: facial wound Subjective: ongoing purulent drainage. pt notes minimal improvement in swelling and pain. No fever/chills/nausea/diarrhea/cough/SOB. Pt planning to go to the OR this afternoon. Vitals/I&O's: Vital Signs Temp Pulse Resp BP Pulse Ox 98.6 F 62 16 121/59 H 97 05/01/20 08:23 05/01/20 08:23 05/01/20 08:23 05/01/20 08:23 05/01/20 08:23 Oxygen Delivery Method Room Air Weight: 248 lb 3.848 oz Body Mass Index (BMI) 42.6 Intake and Output for Last 24 Hours 04/29/20 04/30/20 05/01/20 23:59 23:59 23:59 Intake Total 935 / 935 2279.67 / 2279.67 773.33 / 773.33 Output Total 1100 / 1100 1900 / 1900 Balance 935 / 935 1179.67 / 1179.67 -1126.67 / -1126.67 General: Alert, Oriented x3, Cooperative HEENT: Atraumatic, PERRLA, EOMI, Normocephalic, - - minimal change in swelling, erythema, ongoing purulent drainage present. Neck: Supple, No JVD, Negative Carotid Bruits Lungs: Clear to auscultation, Normal air movement Cardiovascular: Regular rate, No murmurs Abdomen: Bowel Sounds Present, Soft, Non Tender, Obese Extremities: No edema, Capillary Refill Less than 3 Seconds Skin: No rashes, No breakdown Musculoskeletal: No Tenderness to Palpation of Joints or Extremities Neurological: Cranial nerves II-XII grossly intact Psych/Mental Status: Normal Affect, Appropriate Microbiology Past 72 Hours 04/30/20 18:05 Discharge - Aerobic & Anaerobic Swabs Gram Stain - Final 04/30/20 17:50 Mucosa - Nose SARS-CoV-2 Antigen (Rapid) - Final Laboratory Results 04/30/20 17:50: S.aureus Protein A PCR POSITIVE H, MRSA (PCR) POSITIVE H 04/30/20 : S.aureus Protein A PCR POSITIVE H, MRSA (PCR) POSITIVE H 05/01/20 05:35: Vancomycin Trough 8.3 05/01/20 05:35: WBC 8.3, RBC 4.39, Hgb 12.6, Hct 39.8, MCV 90.7, MCH 28.7, MCHC 31.7 L, RDW Std Deviation 43.4, RDW Coeff of Christiano 13.0, Plt Count 229, MPV 10.0, Immature Gran % (Auto) 0.700, Neut % (Auto) 72.6 H, Lymph % (Auto) 19.7, [place] % (Auto) 6.4, Eos % (Auto) 0.4, Baso % (Auto) 0.2, Absolute Neuts (auto) 6.1, Absolute Lymphs (auto) 1.64, Nucleated RBC % 0 Current Medications Atenolol (Atenolol 50 Mg Tablet) 50 mg PO QHS [facility] Last Admin: 04/30/20 22:43 Dose: 50 mg Documented by: Clonazepam (Clonazepam 1 Mg Tablet) 1 mg PO DAILY PRN PRN PRN Reason: ANXIETY Etodolac (Etodolac 300 Mg Capsule) 300 mg PO BID [facility] Last Admin: 04/30/20 22:42 Dose: 300 mg Documented by: Vancomycin IV Pharmacy to Dose (1 ea/ Sodium Chloride) 500 mls @ 250 mls/hr IV X1 PRN; Protocol PRN Reason: Rx to Dose Sodium Chloride () 1,000 mls @ 50 mls/hr IV .Q20H [facility] Last Infusion: 05/01/20 08:04 Dose: 50 mls/hr Documented by: Vancomycin HCl 1,500 mg/ (Sodium Chloride) 530 mls @ 250 mls/hr IV Q12H [facility] Nifedipine (Nifedipine 30 Mg Tablet) 30 mg PO QHS [facility] Last Admin: 04/30/20 22:43 Dose: 30 mg Documented by: Ondansetron HCl (Ondansetron 4 Mg/2 Ml Vial) 4 mg IV Q8H PRN PRN PRN Reason: NAUSEA/VOMITING Oxycodone HCl (Oxycodone 5 Mg Tablet) 10 mg PO Q4H PRN PRN PRN Reason: Pain Score 4-10 Last Admin: 05/01/20 00:30 Dose: 10 mg Documented by: Pantoprazole Sodium (Pantoprazole Sodium 40 Mg Tablet) 40 mg PO BID [facility] Last Admin: 05/01/20 09:20 Dose: 40 mg Documented by: Sertraline HCl (Sertraline 100 Mg Tablet) 200 mg PO DAILY [facility] Last Admin: 05/01/20 09:20 Dose: 200 mg Documented by: Sodium Chloride (0.9% Saline Lock 10 Ml Syringe) 10 - 40 ml IV UD PRN PRN Reason: SALINE FLUSH Tizanidine HCl (Tizanidine Hcl 2 Mg Tablet) 4 mg PO TID PRN PRN PRN Reason: MUSCLE SPASM Last Admin: 04/29/20 21:15 Dose: 4 mg Documented by: STROKE Vital Signs/Narrative: Vital Signs Temp Pulse Resp BP Pulse Ox 05/01/20 08:23 98.6 F 62 16 121/59 H 97 Medical Necessity - Tobacco Use Smoking Status: Never smoker Tobacco Use: Non-smoker Assessment/Plan All Active Problems Abscess of neck (Acute) Abscess of chin (Acute) Facial abscess (Acute) Radiculopathy, cervical region (Acute) Radiculopathy, cervical region (Acute) Other cervical disc degeneration, mid-cervical region, unspecified level (Acute) Other cervical disc degeneration, mid-cervical region, unspecified level (Acute) Mid-cervical disc disorder, unspecified level (Acute) Cervical disc disorder with radiculopathy of mid-cervical region (Acute) Low back pain (Acute) Spondylosis of lumbar region without myelopathy or radiculopathy (Acute) Sciatica due to displacement of lumbar intervertebral disc (Acute) Intervertebral disc disorder with radiculopathy of lumbar region (Acute) Intervertebral disc disorder with radiculopathy of lumbar region (Acute) Other intervertebral disc degeneration, lumbar region (Acute) Other intervertebral disc degeneration, lumbar region (Acute) 1. Facial abscess - CT two days prior with abscess formation. CT soft tissue neck pending. Leukocytosis resolved. Failed outpatient clinda. I&D 2 days prior with minimal drainage. Continue vancomycin -prelim cx shows MRSA. ID consult. Plastic surgery consulted - pt to OR today. Blood cx pending. 2. Morbid obesity - gravity manager eval 3. HTN - continue home meds 4. Anxiety/Depression - continue home meds 5. GERD - PPI DVT ppx: early ambulation This patient was seen by Garo Brizuela PA-C under the supervision of Dr. Espinoza <Miguel Espinoza - Last Filed: 05/01/20 14:11> Reason for Visit: Follow-up for chin abscess with surrounding cellulitis extending up to upper half of anterior neck Objective: Heart rate and blood pressure in normal range. No fever. MRSA nasal screen positive. Seen by plastic surgeon Dr. Parnell. CT face/sinus and CT neck findings discussed with the patient. Mild pain and discomfort on chewing food but no difficulty in swallowing, breathing or dyspnea. Physical exam General: Alert, Oriented x3, Cooperative HEENT: Atraumatic, PERRLA, EOMI, Normocephalic. Swelling around the chin area with pus at the [employer]. Surrounding inflammation with erythema and induration up to anterior half of neck. Oral: No obvious lower incisor gingivitis/cavity/sinus tract noticed. Upper jaw dentures. No Gingival or Mucosal Lesions/ Ulcerations Neck: Supple, No JVD, Negative Carotid Bruits Lungs: Air entry diminished in bilateral lung bases. No crepitation/rhonchi Cardiovascular: Regular rate, Regular Rhythm, Normal S1, Normal S2, No murmurs Abdomen: Bowel Sounds Present, Soft, Non Tender, Non-Distended : No renal angle tenderness. No suprapubic tenderness. Extremities: No edema, Capillary Refill Less than 3 Seconds Skin: No rashes, No breakdown Musculoskeletal: No Tenderness to Palpation of Joints or Extremities Neurological: Cranial nerves II-XII grossly intact, Deep Tendon Reflexes 2+/4 and Symmetrical, Neuro grossly intact Psych/Mental Status: Normal Affect, Appropriate. Vitals/I&O's: Vital Signs Temp Pulse Resp BP Pulse Ox 98.3 F 74 18 168/92 H 97 05/01/20 13:49 05/01/20 13:49 05/01/20 13:49 05/01/20 13:49 05/01/20 13:49 Oxygen Delivery Method Room Air Weight: 248 lb 3.848 oz Body Mass Index (BMI) 42.6 Intake and Output for Last 24 Hours 04/29/20 04/30/20 05/01/20 23:59 23:59 23:59 Intake Total 935 / 935 2279.67 / 2279.67 913.33 / 913.33 Output Total 1100 / 1100 1900 / 1900 Balance 935 / 935 1179.67 / 1179.67 -986.67 / -986.67 Microbiology Past 72 Hours 04/30/20 18:05 Discharge - Aerobic & Anaerobic Swabs Gram Stain - Final 04/30/20 18:05 Discharge - Aerobic & Anaerobic Swabs Wound Culture - Preliminary Staphylococcus aureus 04/30/20 17:50 Mucosa - Nose SARS-CoV-2 Antigen (Rapid) - Final Laboratory Results 04/30/20 17:50: S.aureus Protein A PCR POSITIVE H, MRSA (PCR) POSITIVE H 04/30/20 : S.aureus Protein A PCR POSITIVE H, MRSA (PCR) POSITIVE H 05/01/20 05:35: Vancomycin Trough 8.3 05/01/20 05:35: WBC 8.3, RBC 4.39, Hgb 12.6, Hct 39.8, MCV 90.7, MCH 28.7, MCHC 31.7 L, RDW Std Deviation 43.4, RDW Coeff of Christiano 13.0, Plt Count 229, MPV 10.0, Immature Gran % (Auto) 0.700, Neut % (Auto) 72.6 H, Lymph % (Auto) 19.7, [place] % (Auto) 6.4, Eos % (Auto) 0.4, Baso % (Auto) 0.2, Absolute Neuts (auto) 6.1, Absolute Lymphs (auto) 1.64, Nucleated RBC % 0 Current Medications Atenolol (Atenolol 50 Mg Tablet) 50 mg PO QHS [facility] Last Admin: 04/30/20 22:43 Dose: 50 mg Documented by: Clonazepam (Clonazepam 1 Mg Tablet) 1 mg PO DAILY PRN PRN PRN Reason: ANXIETY Diazepam (Diazepam 5 Mg Tablet) 5 mg PO 4X/DAY PRN PRN PRN Reason: SPASMS Etodolac (Etodolac 300 Mg Capsule) 300 mg PO BID [facility] Last Admin: 04/30/20 22:42 Dose: 300 mg Documented by: Hydromorphone HCl (Hydromorphone 1 Mg/Ml Syringe) 1 mg IV Q4H PRN PRN PRN Reason: Pain Score 6-10 Vancomycin IV Pharmacy to Dose (1 ea/ Sodium Chloride) 500 mls @ 250 mls/hr IV X1 PRN; Protocol PRN Reason: Rx to Dose Sodium Chloride () 1,000 mls @ 50 mls/hr IV .Q20H [facility] Last Infusion: 05/01/20 12:12 Dose: Infused Documented by: Vancomycin HCl 1,500 mg/ (Sodium Chloride) 530 mls @ 250 mls/hr IV Q12H [facility] Lactated Ringer's () 1,000 mls @ 100 mls/hr IV .Q10H [facility] Last Admin: 05/01/20 12:14 Dose: 100 mls/hr Documented by: Nifedipine (Nifedipine 30 Mg Tablet) 30 mg PO QHS [facility] Last Admin: 04/30/20 22:43 Dose: 30 mg Documented by: Ondansetron HCl (Ondansetron 4 Mg/2 Ml Vial) 4 mg IV Q8H PRN PRN PRN Reason: NAUSEA/VOMITING Oxycodone HCl (Oxycodone 5 Mg Tablet) 10 mg PO Q4H PRN PRN PRN Reason: Pain Score 4-10 Last Admin: 05/01/20 00:30 Dose: 10 mg Documented by: Pantoprazole Sodium (Pantoprazole Sodium 40 Mg Tablet) 40 mg PO BID [facility] Last Admin: 05/01/20 09:20 Dose: 40 mg Documented by: Sertraline HCl (Sertraline 100 Mg Tablet) 200 mg PO DAILY [facility] Last Admin: 05/01/20 09:20 Dose: 200 mg Documented by: Sodium Chloride (0.9% Saline Lock 10 Ml Syringe) 10 - 40 ml IV UD PRN PRN Reason: SALINE FLUSH Tizanidine HCl (Tizanidine Hcl 2 Mg Tablet) 4 mg PO TID PRN PRN PRN Reason: MUSCLE SPASM Last Admin: 04/29/20 21:15 Dose: 4 mg Documented by: STROKE Vital Signs/Narrative: Vital Signs Temp Pulse Resp BP Pulse Ox 05/01/20 13:49 98.3 F 74 18 168/92 H 97 Assessment/Plan This patient was seen in conjunction with Garo FORREST. I have independently interviewed and examined the patient and reviewed pertinent history, examination findings, laboratory and plan of management. I have reviewed the note and agree with the documented findings with the few additional points. In brief, patient is admitted for facial, chin abscess with surrounding cellulitis. CT of the face/sinus and soft tissue neck reported diffuse induration of subcutaneous fat anterior and inferior to mandible with involvement of platysma suggestive of cellulitis. No deep abscess noted in CT. No palpable cervical lymphadenopathy. No involvement of deep oropharyngeal spaces. Discussed with the ID. Initially patient was started on vancomycin and Zosyn but narrowed down to vancomycin after preliminary wound Gram stain shows 2+ staph aureus, MRSA. Initially, oral surgeon Dr Last was called but he said her oral dentures are normal therefore he suggested to consult other surgeon. Thereafter, Dr. Parnell was requested and consulted. Currently patient is in OR for incision and drainage. Rest of the comorbidities as mentioned above. I have discussed my assessment with Garo FORREST and orders have been reviewed. Clinical Impression(s) from Imaging Studies Facial/Sinus 04/30/20 11:15 IMPRESSION: Diffuse induration of the subcutaneous fat anterior and inferior to the mandible consistent with cellulitis. I suspect the left platysma muscle is involved. Soft Tissue Neck CT 04/30/20 11:18 IMPRESSION: Diffuse induration of the subcutaneous fat anterior and inferior to the mandible consistent with cellulitis. No abscess noted. I suspect that left platysma muscle is also involved but there are no erosive changes noted in the mandible Electronically Signed: Reg Ahuja MD at 16:13 EST , Service support , Inpatient E&M: 52480 Subs Hosp L2
[2020-05-01] MEDS: Lactated Ringers 1,000 ML 100 ML IV (12:14)
[2020-05-01] MEDS: Lidocaine 1% (30 ml sdv) 30 ML Vial (13:29)
--- NOTE | 2020-05-01 13:35 | OP.PCM_ITS ---
Report of Operation Date of Procedure: 05/01/20 Pre-Operative Diagnosis: 1. Abscess left chin. 2. Abscess upper anterior neck. 3. History of MRSA. Post-Operative Diagnosis: 1. Abscess left chin involving underlying muscle. 2. Abscess upper anterior neck involving underlying muscle. 3. Open surgical abscess wound left chin. 4. Open surgical abscess wound upper anterior neck. 5. History of MRSA. Surgery/Procedure Performed:: 1. Surgical preparation left chin with incision and drainage and excisional debridement abscess involving underlying muscle (7.5 cm2). 2. Surigical preparation upper anterior neck with incision and drainage and excisional debridement abscess involving underlying muscle (6.25 cm2). Description of Surgical Findings:: 45 year old F was admitted for a worsening abscess left chin extending onto upper anterior neck. She had gone to the ED a few days prior and an I&D was attempted with no significant drainage. She was sent home on po antibiotics and the abscess worsened which prompted the admission. She is currently on Vancomycin and Unasyn. WBC on admission was 11.8 and has decreased to normal at 9.1. She had CT scan done of the face on 04/30/20 which showed diffuse induration of the subcutaneous fat anterior and inferior to the mandible consistent with cellulitis. I suspect the left platysma muscle is involved. CT scan of the neck was done on 04/30/20 which showed diffuse induration of the subcutaneous fat anterior and inferior to the mandible consistent with cellulitis. No abscess noted. I suspect that left platysma muscle is also involved but there are no erosive changes noted in the mandible. She denies fever. There is some discomfort when she swallows. She denies tooth pain. She wears upper dentures. I was asked to evaluate this patient for surgical options for treatment. Patient was informed of the risks and complications of the procedure including alternatives to surgery. These were discussed with the patient personally. Patient voices understanding and wishes to proceed. Patient understands that the wounds will be left open and wound care started with Silver dressing changes. Size of defect left chin - 3 x 2.5 x 1.5 cm. Size of defect upper anterior neck - 2.5 x 2.5 x 2 cm. seed core operator: None Type of Anesthesia:: General Specimen's removed: Abscess left chin and upper anterior neck to Pathology and Microbiology. Drains: None. Estimated Blood Loss (mL): 150 ml. Description of Procedure: Patient was taken to OR in supine position and was placed under general anesthesia. The face and chin areas were prepped and draped in the usual fashion. SCD's were placed for DVT prophylaxis. Perioperative antibiotics were given intravenously. I will inject xylocaine into the wounds at the end of the procedure to help with postoperative pain relief. For the procedure, I wore an N95 mask and wore proper eyewear protection. I made an incision over the abscess left chin down into the subcutaneous tissue. Some thickened pus was seen. A lot of fat necrosis was seen. Exudate was present which extended down to and involving the underlying muscles (depressor anguli devyn, depressor labii inferiorus, and the mentalis). A curette was used to help with the debridement of the exudate. A lot of bleeding was seen that was controlled with gauze compression and electrocautery. There was an area of induration on the upper anterior neck that was also incised down into the subcutaneous tissue. Some thickened pus was seen. A lot of fat necrosis was seen. Exudate was present which extended down to and involving the underlying muscles (platysma and digastric). A curette was also used to help with the debridement of the exudate. A lot of bleeding was seen that was controlled with gauze compression and electrocautery. There was a small skin bridge between the left chin abscess wound and the upper anterior neck abscess wound. I pressed on the area and could not express any pus. The skin bridge will help with the healing process and minimize scar contracture. Both wounds were irrigated with saline. The tissue was sent to Pathology for analysis to rule out carcinoma and to Microbiology for culture. A positive culture will necessitate antibiotic therapy. I injected Xylocaine into the edges of the wounds to help with postoperative pain relief. The size of the wounds after incision and drainage and excisional debridement was 3 x 2.5 x 1.5 cm or 7.5 cm2 for left chin and 2.5 x 2.5 x 2 cm or 6.25 cm2 for the upper anterior neck. The wounds were dressed with Mepitel nonadherent dressing followed by 4x4 gauze and Betadine followed by dry 4x4 gauze and an ABD pad and a meshed compression dressing. Patient tolerated the procedure well and was sent to PACU in satisfactory condition. Patient will be sent upstairs for continued postop care. Silver dressing changes will be started tomorrow. After discharge she [facility]. She will keep her head elevated during the initial postoperative period. Grafts/Implants Used: None. - Complications None. - Admit VTE Documentation VTE Present on Admission: No VTE Mechan Device Prophylaxis: SCD's VTE Pharm Prophylaxis ordered?: No Surgery Charges CPT - 57592 ICD-10 - L02.01, S01.80xA, Z86.14 58606 L02.11, S11.90xA, Z86.14
[2020-05-01] MEDS: 0.9% Normal Saline 1,000 ML 50 ML IV (14:44)
[2020-05-01] MEDS: Etodolac 300 MG Capsule PO (22:38)
[2020-05-01] MEDS: NIFEdipine 30 MG Tablet PO (22:38)
[2020-05-01] MEDS: Atenolol 50 MG Tablet PO (22:38)
[2020-05-02] VITALS (8 sets, daily range): BP systolic 114–142; BP diastolic 56–66; PULSE 62–84; RESP 14–20; TEMP 36.4–37.1; O2SAT 96–97
[2020-05-02 06:58] LABS: Hematocrit 38.7 % (37-47); Hemoglobin 12.6 g/dL (12.0-15.0); Mean Corp Hgb Conc 32.6 g/dL (32-36); Mean Corpuscular Hgb 29.1 pg (27.0-32.0); Mean Corpuscular Volume 89.4 fL (81-99); Mean Platelet Vol. 10.1 fl (6.2-12.0); Platelet Count 234 K/mm3 (150-450); RBC Distribution Width CV 12.7 % (11.6-14.6); RBC Distribution Width SD 41.7 fl (35.1-43.9); Red Blood Count 4.33 M/mm3 (4.2-5.4); White Blood Count 8.2 K/mm3 (4.4-11.0)
[2020-05-02 07:30] LABS: Anion Gap 5 (5-15); BUN 15 mg/dL (7-18); BUN/Creat Ratio 24.1 RATIO (10-20); Calcium,Total 7.9 mg/dL (8.5-10.1); Chloride 107 mmol/L (98-107); Creatinine, Serum 0.62 mg/dL (0.55-1.02); EST Glomerular Filtration Rate 110 mL/min (>60); Est Glom Filt Rate - Afr Amer 133 mL/min (>60); Estimated Creatinine Clearance 97.91 ml/min; Glucose 106 mg/dL (74-106); Potassium 3.8 mmol/L (3.5-5.1); Prealbumin 22.7 mg/dL (20.0-40.0); Sodium Level 140 mmol/L (136-145)
[2020-05-02] MEDS: oxyCODONE 5 MG Tablet 10 MG PO ×3 (08:24→18:07)
--- NOTE | 2020-05-02 09:16 | NURSING ---
wound photo: chin/neck
--- NOTE | 2020-05-02 09:59 | CASEMGMT ---
Addendum entered by Lien Ness 05/02/20 12:51: 1145: Call received back from [facility]. She states they are able to accept pt and start of care will be Wednesday. She states they do have the staffing to provide daily visits/dressing changes. Pt made aware and voices appreciation. She was provided with [facility]'s contact info. She denies having other discharge needs/concerns. She was made aware to ask for RN NIKKI if any questions/concerns/needs arise. Original Note: GIORGI JORDAN NOTE: Per Dr Espinoza, anticipate pt will be ready for discharge tomorrow and will go home on PO atb's. Dressing changes to neck and chin are daily. Per wound nurse, [place], she has reviewed dressing changes with pt and feels pt will be able to do them @ home but states pt did state is interested in [facility] for assistance/teaching/wound care. GIORGI JORDAN to room to discuss discharge planning with pt. Pt states confirms she would like [facility] for wound care. She states would like a nurse to come daily, if able, until she gets more comfortable with doing the dressing changes on her own. Pt was provided with list of local [facility] agencies with [facility] quality star and pt survey star ratings. Pt denies having a preference. She lives @ home w/her children and her sister is planning on coming to stay with her to help with her children. Call placed to [facility] and referral made. She is aware anticipate d/c home tomorrow and that pt would prefer a nurse visit daily, initially. She states she will review referral and check on staffing availability. Referral packet faxed to her at this time. Awaiting acceptance. D/C plan: Home w/[facility]. Regina MONTES RN CM
[2020-05-02] MEDS: Pantoprazole Sodium 40 MG Tablet PO ×2 (10:10→21:48)
[2020-05-02] MEDS: Sertraline 100 MG Tablet 200 MG PO (10:12)
[2020-05-02] MEDS: Etodolac 300 MG Capsule PO ×2 (10:13→21:47)
--- NOTE | 2020-05-02 13:02 | PN.SURG_ITS ---
Patient Problems: Active and Suspected Problems Facial abscess (Acute) Subjective: Postop #1 Has chin and neck wound pain. Tolerated the Silver dressing change today. - Physical Exam Vitals/I&O's: Vital Signs Temp Pulse Resp BP Pulse Ox 98.6 F 62 14 142/66 H 96 05/02/20 07:49 05/02/20 08:25 05/02/20 09:02 05/02/20 07:49 05/02/20 07:49 Oxygen Delivery Method Room Air Weight: 248 lb 3.848 oz Body Mass Index (BMI) 42.6 Intake and Output for Last 24 Hours 04/30/20 05/01/20 05/02/20 23:59 23:59 23:59 Intake Total 2279.67 / 2279.67 2931.66 / 2931.66 1850 / 1850 Output Total 1100 / 1100 2900 / 2900 650 / 650 Balance 1179.67 / 1179.67 31.66 / 31.66 1200 / 1200 General: Alert, Oriented x3 HEENT: PERRLA, EOMI Oral: Moist Mucosa Neck: Supple Abdomen: Soft, Non-Distended Skin: Ulcer/ Wound - left chin and upper anterior neck wounds are stable. No active bleeding seen. Wounds redressed with Silver dressing. Neurological: Cranial nerves II-XII grossly intact Psych/Mental Status: Normal Affect, Appropriate Microbiology Past 72 Hours 05/01/20 13:54 Wound Abcess - Face Gram Stain - Final 05/01/20 13:54 Wound Abcess - Face Wound Culture - Preliminary Staphylococcus aureus 04/30/20 18:05 Discharge - Aerobic & Anaerobic Swabs Gram Stain - Final 04/30/20 18:05 Discharge - Aerobic & Anaerobic Swabs Wound Culture - Final Meth. resistant Staph. aureus 04/29/20 17:20 Blood Culture (Wb) - Anticubital Right Blood Culture - Preliminary No growth in 48 hours. 04/29/20 17:25 Blood Culture (Wb) - Anticubital Left Blood Culture - Preliminary No growth in 48 hours. 04/30/20 17:50 Mucosa - Nose SARS-CoV-2 Antigen (Rapid) - Final Laboratory Results 05/02/20 06:15: WBC 8.2, RBC 4.33, Hgb 12.6, Hct 38.7, MCV 89.4, MCH 29.1, MCHC 32.6, RDW Std Deviation 41.7, RDW Coeff of Christiano 12.7, Plt Count 234, MPV 10.1 05/02/20 06:15: Sodium 140, Potassium 3.8, Chloride 107, Carbon Dioxide 28.0, Anion Gap 5, BUN 15, Creatinine 0.62, Estim Creat Clear Calc 97.91, Est GFR (MDRD) Af Amer 133, Est GFR (MDRD) Non-Af 110, BUN/Creatinine Ratio 24.1 H, Glucose 106, Calcium 7.9 L, Prealbumin 22.7 Current Medications Atenolol (Atenolol 50 Mg Tablet) 50 mg PO QHS [facility] Last Admin: 05/01/20 22:38 Dose: 50 mg Documented by: Clonazepam (Clonazepam 1 Mg Tablet) 1 mg PO DAILY PRN PRN PRN Reason: ANXIETY Diazepam (Diazepam 5 Mg Tablet) 5 mg PO 4X/DAY PRN PRN PRN Reason: SPASMS Etodolac (Etodolac 300 Mg Capsule) 300 mg PO BID [facility] Last Admin: 05/02/20 10:13 Dose: 300 mg Documented by: Hydromorphone HCl (Hydromorphone 1 Mg/Ml Syringe) 1 mg IV Q4H PRN PRN PRN Reason: Pain Score 6-10 Vancomycin IV Pharmacy to Dose (1 ea/ Sodium Chloride) 500 mls @ 250 mls/hr IV X1 PRN; Protocol PRN Reason: Rx to Dose Sodium Chloride () 1,000 mls @ 50 mls/hr IV .Q20H [facility] Last Admin: 05/02/20 03:39 Dose: Not Given Documented by: Vancomycin HCl 1,500 mg/ (Sodium Chloride) 530 mls @ 250 mls/hr IV Q12H [facility] Last Infusion: 05/02/20 06:44 Dose: Infused Documented by: Nifedipine (Nifedipine 30 Mg Tablet) 30 mg PO QHS [facility] Last Admin: 05/01/20 22:38 Dose: 30 mg Documented by: Ondansetron HCl (Ondansetron 4 Mg/2 Ml Vial) 4 mg IV Q8H PRN PRN PRN Reason: NAUSEA/VOMITING Oxycodone HCl (Oxycodone 5 Mg Tablet) 10 mg PO Q4H PRN PRN PRN Reason: Pain Score 4-10 Last Admin: 05/02/20 08:24 Dose: 10 mg Documented by: Pantoprazole Sodium (Pantoprazole Sodium 40 Mg Tablet) 40 mg PO BID [facility] Last Admin: 05/02/20 10:10 Dose: 40 mg Documented by: Sertraline HCl (Sertraline 100 Mg Tablet) 200 mg PO DAILY [facility] Last Admin: 05/02/20 10:12 Dose: 200 mg Documented by: Sodium Chloride (0.9% Saline Lock 10 Ml Syringe) 10 - 40 ml IV UD PRN PRN Reason: SALINE FLUSH Tizanidine HCl (Tizanidine Hcl 2 Mg Tablet) 4 mg PO TID PRN PRN PRN Reason: MUSCLE SPASM Last Admin: 04/29/20 21:15 Dose: 4 mg Documented by: Medical Necessity - Tobacco Use Smoking Status: Never smoker Tobacco Use: Non-smoker Assessment/Plan All Active Problems Open wound of neck with complication (Acute) Open wound of chin (Acute) Abscess of neck (Acute) Abscess of chin (Acute) Facial abscess (Acute) Radiculopathy, cervical region (Acute) Radiculopathy, cervical region (Acute) Other cervical disc degeneration, mid-cervical region, unspecified level (Acute) Other cervical disc degeneration, mid-cervical region, unspecified level (Acute) Mid-cervical disc disorder, unspecified level (Acute) Cervical disc disorder with radiculopathy of mid-cervical region (Acute) Low back pain (Acute) Spondylosis of lumbar region without myelopathy or radiculopathy (Acute) Sciatica due to displacement of lumbar intervertebral disc (Acute) Intervertebral disc disorder with radiculopathy of lumbar region (Acute) Intervertebral disc disorder with radiculopathy of lumbar region (Acute) Other intervertebral disc degeneration, lumbar region (Acute) Other intervertebral disc degeneration, lumbar region (Acute) 1. Abscess left chin involving underlying muscle. 2. Abscess upper anterior neck involving underlying muscle. 3. Open surgical abscess wound left chin. 4. Open surgical abscess wound upper anterior neck. 5. MRSA. 6. s/p surgical preparation left chin with incision and drainage and excisional debridement abscess involving underlying muscle (7.5 cm2) and surgical preparation upper anterior neck with incision and drainage and excisional debridement abscess involving underlying muscle (6.25 cm2). Continue Vancomycin. Cultures show MRSA. Left chin and upper anterior neck wound are stable. No active bleeding seen. Tolerated Silver dressing change to be done daily. Prealbumin was 22.7. Encourage nutritional supplementation with protein to help the healing process. Anticipate discharge on oral antibiotics. Followup [facility] in one week on 05/13/20. If there is a plateau in the healing process, can proceed with delayed closure with a skin flap or skin graft.
[2020-05-02] MEDS: 0.9% Normal Saline 1,000 ML 50 ML IV (13:03)
--- NOTE | 2020-05-02 15:05 | PCM.PN.HOSP ---
Patient Problems: Active and Suspected Problems Facial abscess (Acute) Reason for Visit: Follow-up for chin/facial cellulitis with abscess due to MRSA after surgical debridement. Objective: Patient has improvement in left chin swelling, inflammation and edema. Silver dressing was changed in the morning and is dry. No fever or chills. Blood pressure and heart rate are in normal range. Patient denies shortness of breath, dyspnea. Denies dysphagia but has mild pain with chewing/mastication Physical exam General: Alert, Oriented x3, Cooperative HEENT: Atraumatic, PERRLA, EOMI, Normocephalic. Surgical dressing over chin and upper neck is dry. Mild tenderness and swelling present but overall improving. Oral: No obvious lower incisor gingivitis/cavity/sinus tract noticed. Upper jaw dentures. No Gingival or Mucosal Lesions/ Ulcerations Neck: Supple, No JVD, Negative Carotid Bruits Lungs: Air entry diminished in bilateral lung bases. No crepitation/rhonchi Cardiovascular: Regular rate, Regular Rhythm, Normal S1, Normal S2, No murmurs Abdomen: Bowel Sounds Present, Soft, Non Tender, Non-Distended : No renal angle tenderness. No suprapubic tenderness. Extremities: No edema, Capillary Refill Less than 3 Seconds Skin: No rashes, No breakdown Musculoskeletal: No Tenderness to Palpation of Joints or Extremities Neurological: Cranial nerves II-XII grossly intact, Deep Tendon Reflexes 2+/4 and Symmetrical, Neuro grossly intact Psych/Mental Status: Normal Affect, Appropriate. Vitals/I&O's: Vital Signs Temp Pulse Resp BP Pulse Ox 98.1 F 64 16 122/61 H 97 05/02/20 14:54 05/02/20 14:54 05/02/20 14:54 05/02/20 14:54 05/02/20 14:54 Oxygen Delivery Method Room Air Weight: 248 lb 3.848 oz Body Mass Index (BMI) 42.6 Intake and Output for Last 24 Hours 04/30/20 05/01/20 05/02/20 23:59 23:59 23:59 Intake Total 2279.67 / 2279.67 2931.66 / 2931.66 2801.67 / 2801.67 Output Total 1100 / 1100 2900 / 2900 650 / 650 Balance 1179.67 / 1179.67 31.66 / 31.66 2151.67 / 2151.67 Microbiology Past 72 Hours 05/01/20 13:54 Wound Abcess - Face Gram Stain - Final 05/01/20 13:54 Wound Abcess - Face Wound Culture - Preliminary Staphylococcus aureus 04/30/20 18:05 Discharge - Aerobic & Anaerobic Swabs Gram Stain - Final 04/30/20 18:05 Discharge - Aerobic & Anaerobic Swabs Wound Culture - Final Meth. resistant Staph. aureus 04/29/20 17:20 Blood Culture (Wb) - Anticubital Right Blood Culture - Preliminary No growth in 48 hours. 04/29/20 17:25 Blood Culture (Wb) - Anticubital Left Blood Culture - Preliminary No growth in 48 hours. 04/30/20 17:50 Mucosa - Nose SARS-CoV-2 Antigen (Rapid) - Final Laboratory Results 05/02/20 06:15: WBC 8.2, RBC 4.33, Hgb 12.6, Hct 38.7, MCV 89.4, MCH 29.1, MCHC 32.6, RDW Std Deviation 41.7, RDW Coeff of Christiano 12.7, Plt Count 234, MPV 10.1 05/02/20 06:15: Sodium 140, Potassium 3.8, Chloride 107, Carbon Dioxide 28.0, Anion Gap 5, BUN 15, Creatinine 0.62, Estim Creat Clear Calc 97.91, Est GFR (MDRD) Af Amer 133, Est GFR (MDRD) Non-Af 110, BUN/Creatinine Ratio 24.1 H, Glucose 106, Calcium 7.9 L, Prealbumin 22.7 Current Medications Atenolol (Atenolol 50 Mg Tablet) 50 mg PO QHS [facility] Last Admin: 05/01/20 22:38 Dose: 50 mg Documented by: Clonazepam (Clonazepam 1 Mg Tablet) 1 mg PO DAILY PRN PRN PRN Reason: ANXIETY Diazepam (Diazepam 5 Mg Tablet) 5 mg PO 4X/DAY PRN PRN PRN Reason: SPASMS Etodolac (Etodolac 300 Mg Capsule) 300 mg PO BID [facility] Last Admin: 05/02/20 10:13 Dose: 300 mg Documented by: Hydromorphone HCl (Hydromorphone 1 Mg/Ml Syringe) 1 mg IV Q4H PRN PRN PRN Reason: Pain Score 6-10 Vancomycin IV Pharmacy to Dose (1 ea/ Sodium Chloride) 500 mls @ 250 mls/hr IV X1 PRN; Protocol PRN Reason: Rx to Dose Sodium Chloride () 1,000 mls @ 50 mls/hr IV .Q20H [facility] Last Admin: 05/02/20 13:03 Dose: 50 mls/hr Documented by: Vancomycin HCl 1,500 mg/ (Sodium Chloride) 530 mls @ 250 mls/hr IV Q12H [facility] Last Infusion: 05/02/20 06:44 Dose: Infused Documented by: Nifedipine (Nifedipine 30 Mg Tablet) 30 mg PO QHS [facility] Last Admin: 05/01/20 22:38 Dose: 30 mg Documented by: Ondansetron HCl (Ondansetron 4 Mg/2 Ml Vial) 4 mg IV Q8H PRN PRN PRN Reason: NAUSEA/VOMITING Oxycodone HCl (Oxycodone 5 Mg Tablet) 10 mg PO Q4H PRN PRN PRN Reason: Pain Score 4-10 Last Admin: 05/02/20 13:02 Dose: 10 mg Documented by: Pantoprazole Sodium (Pantoprazole Sodium 40 Mg Tablet) 40 mg PO BID [facility] Last Admin: 05/02/20 10:10 Dose: 40 mg Documented by: Sertraline HCl (Sertraline 100 Mg Tablet) 200 mg PO DAILY [facility] Last Admin: 05/02/20 10:12 Dose: 200 mg Documented by: Sodium Chloride (0.9% Saline Lock 10 Ml Syringe) 10 - 40 ml IV UD PRN PRN Reason: SALINE FLUSH Tizanidine HCl (Tizanidine Hcl 2 Mg Tablet) 4 mg PO TID PRN PRN PRN Reason: MUSCLE SPASM Last Admin: 04/29/20 21:15 Dose: 4 mg Documented by: STROKE Vital Signs/Narrative: Vital Signs Temp Pulse Resp BP Pulse Ox 05/02/20 14:54 98.1 F 64 16 122/61 H 97 Medical Necessity - Tobacco Use Smoking Status: Never smoker Tobacco Use: Non-smoker Assessment/Plan All Active Problems Open wound of neck with complication (Acute) Open wound of chin (Acute) Abscess of neck (Acute) Abscess of chin (Acute) Facial abscess (Acute) Radiculopathy, cervical region (Acute) Radiculopathy, cervical region (Acute) Other cervical disc degeneration, mid-cervical region, unspecified level (Acute) Other cervical disc degeneration, mid-cervical region, unspecified level (Acute) Mid-cervical disc disorder, unspecified level (Acute) Cervical disc disorder with radiculopathy of mid-cervical region (Acute) Low back pain (Acute) Spondylosis of lumbar region without myelopathy or radiculopathy (Acute) Sciatica due to displacement of lumbar intervertebral disc (Acute) Intervertebral disc disorder with radiculopathy of lumbar region (Acute) Intervertebral disc disorder with radiculopathy of lumbar region (Acute) Other intervertebral disc degeneration, lumbar region (Acute) Other intervertebral disc degeneration, lumbar region (Acute) The patient is a 45-year-old female admitted for facial, chin abscess with surrounding cellulitis. CT of the face/sinus and soft tissue neck reported diffuse induration of subcutaneous fat anterior and inferior to mandible with involvement of platysma suggestive of cellulitis. No deep abscess noted in CT. No palpable cervical lymphadenopathy. No involvement of deep oropharyngeal spaces. 1. Facial/chin abscess with surrounding cellulitis with involvement of platysma-patient was admitted on [facility]. Initial wound culture after incision and drainage: 04/30 shows MRSA. Initially, oral surgeon Dr Last was called but he said her oral dentures are normal therefore he suggested to consult other surgeon. Thereafter, Dr. Parnell was requested and consulted. Patient was taken to the OR on 04/30 and had excisional debridement of abscess involving platysma muscle. Prealbumin level normal. Vanco trough 8.3. 2. 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 BMI 42.6 kg/m? 3. HTN -pressure in normal range continue home meds 4. Anxiety/Depression - continue home meds 5. GERD - PPI DVT ppx: Moderate risk due to morbid obesity. Lovenox 40 subcu daily. Microbiology Past 72 Hours 05/01/20 13:54 Wound Abcess - Face Gram Stain - Final 05/01/20 13:54 Wound Abcess - Face Wound Culture - Preliminary Staphylococcus aureus 04/30/20 18:05 Discharge - Aerobic & Anaerobic Swabs Gram Stain - Final 04/30/20 18:05 Discharge - Aerobic & Anaerobic Swabs Wound Culture - Final Meth. resistant Staph. aureus 04/29/20 17:20 Blood Culture (Wb) - Anticubital Right Blood Culture - Preliminary No growth in 48 hours. 04/29/20 17:25 Blood Culture (Wb) - Anticubital Left Blood Culture - Preliminary No growth in 48 hours. 04/30/20 17:50 Mucosa - Nose SARS-CoV-2 Antigen (Rapid) - Final Laboratory Results 05/02/20 06:15: WBC 8.2, RBC 4.33, Hgb 12.6, Hct 38.7, MCV 89.4, MCH 29.1, MCHC 32.6, RDW Std Deviation 41.7, RDW Coeff of Christiano 12.7, Plt Count 234, MPV 10.1 05/02/20 06:15: Sodium 140, Potassium 3.8, Chloride 107, Carbon Dioxide 28.0, Anion Gap 5, BUN 15, Creatinine 0.62, Estim Creat Clear Calc 97.91, Est GFR (MDRD) Af Amer 133, Est GFR (MDRD) Non-Af 110, BUN/Creatinine Ratio 24.1 H, Glucose 106, Calcium 7.9 L, Prealbumin 22.7 Clinical Impression(s) from Imaging Studies Facial/Sinus 04/30/20 11:15 IMPRESSION: Diffuse induration of the subcutaneous fat anterior and inferior to the mandible consistent with cellulitis. I suspect the left platysma muscle is involved. Soft Tissue Neck CT 04/30/20 11:18 IMPRESSION: Diffuse induration of the subcutaneous fat anterior and inferior to the mandible consistent with cellulitis. No abscess noted. I suspect that left platysma muscle is also involved but there are no erosive changes noted in the mandible Electronically Signed: Reg Ahuja MD at 16:13 EST , Service support , Inpatient E&M: [id number] [facility] L2
--- NOTE | 2020-05-02 16:03 | PCM.PN.ID ---
Patient Problems: Active and Suspected Problems Facial abscess (Acute) Subjective: Feeling better, no fever, pain improved, no n/v/d - Physical Exam Vitals/I&O's: Vital Signs Temp Pulse Resp BP Pulse Ox 98.1 F 64 16 122/61 H 97 05/02/20 14:54 05/02/20 14:54 05/02/20 15:00 05/02/20 14:54 05/02/20 15:00 Oxygen Delivery Method Room Air Weight: 112.6 kg Body Mass Index (BMI) 42.6 Intake and Output for Last 24 Hours 04/30/20 05/01/20 05/02/20 23:59 23:59 23:59 Intake Total 2279.67 / 2279.67 2931.66 / 2931.66 2927.67 / 2927.67 Output Total 1100 / 1100 2900 / 2900 650 / 650 Balance 1179.67 / 1179.67 31.66 / 31.66 2277.67 / 2277.67 General: Alert, Cooperative, No apparent distress Lungs: Clear to auscultation, Normal air movement Cardiovascular: Regular rate, Regular Rhythm Abdomen: Soft, Non Tender, Non-Distended Skin: Ulcer/ Wound - reviewed photo Microbiology Past 72 Hours 05/01/20 13:54 Wound Abcess - Face Gram Stain - Final 05/01/20 13:54 Wound Abcess - Face Wound Culture - Preliminary Staphylococcus aureus 04/30/20 18:05 Discharge - Aerobic & Anaerobic Swabs Gram Stain - Final 04/30/20 18:05 Discharge - Aerobic & Anaerobic Swabs Wound Culture - Final Meth. resistant Staph. aureus 04/29/20 17:20 Blood Culture (Wb) - Anticubital Right Blood Culture - Preliminary No growth in 48 hours. 04/29/20 17:25 Blood Culture (Wb) - Anticubital Left Blood Culture - Preliminary No growth in 48 hours. 04/30/20 17:50 Mucosa - Nose SARS-CoV-2 Antigen (Rapid) - Final Laboratory Results 05/02/20 06:15: WBC 8.2, RBC 4.33, Hgb 12.6, Hct 38.7, MCV 89.4, MCH 29.1, MCHC 32.6, RDW Std Deviation 41.7, RDW Coeff of Christiano 12.7, Plt Count 234, MPV 10.1 05/02/20 06:15: Sodium 140, Potassium 3.8, Chloride 107, Carbon Dioxide 28.0, Anion Gap 5, BUN 15, Creatinine 0.62, Estim Creat Clear Calc 97.91, Est GFR (MDRD) Af Amer 133, Est GFR (MDRD) Non-Af 110, BUN/Creatinine Ratio 24.1 H, Glucose 106, Calcium 7.9 L, Prealbumin 22.7 Current Medications Atenolol (Atenolol 50 Mg Tablet) 50 mg PO QHS [facility] Last Admin: 05/01/20 22:38 Dose: 50 mg Documented by: Clonazepam (Clonazepam 1 Mg Tablet) 1 mg PO DAILY PRN PRN PRN Reason: ANXIETY Diazepam (Diazepam 5 Mg Tablet) 5 mg PO 4X/DAY PRN PRN PRN Reason: SPASMS Enoxaparin Sodium (Enoxaparin 40 Mg/0.4 Ml Syringe) 40 mg SC DAILY@1999 [facility] Etodolac (Etodolac 300 Mg Capsule) 300 mg PO BID [facility] Last Admin: 05/02/20 10:13 Dose: 300 mg Documented by: Hydromorphone HCl (Hydromorphone 1 Mg/Ml Syringe) 1 mg IV Q4H PRN PRN PRN Reason: Pain Score 6-10 Vancomycin IV Pharmacy to Dose (1 ea/ Sodium Chloride) 500 mls @ 250 mls/hr IV X1 PRN; Protocol PRN Reason: Rx to Dose Vancomycin HCl 1,500 mg/ (Sodium Chloride) 530 mls @ 250 mls/hr IV Q12H [facility] Last Admin: 05/02/20 15:56 Dose: 250 mls/hr Documented by: Sodium Chloride () 250 mls @ 15 mls/hr IV .[id number] PRN PRN Reason: Saline Flush Last Infusion: 05/02/20 15:58 Dose: 0 mls/hr Documented by: Nifedipine (Nifedipine 30 Mg Tablet) 30 mg PO QHS [facility] Last Admin: 05/01/20 22:38 Dose: 30 mg Documented by: Ondansetron HCl (Ondansetron 4 Mg/2 Ml Vial) 4 mg IV Q8H PRN PRN PRN Reason: NAUSEA/VOMITING Oxycodone HCl (Oxycodone 5 Mg Tablet) 10 mg PO Q4H PRN PRN PRN Reason: Pain Score 4-10 Last Admin: 05/02/20 13:02 Dose: 10 mg Documented by: Pantoprazole Sodium (Pantoprazole Sodium 40 Mg Tablet) 40 mg PO BID [facility] Last Admin: 05/02/20 10:10 Dose: 40 mg Documented by: Sertraline HCl (Sertraline 100 Mg Tablet) 200 mg PO DAILY [facility] Last Admin: 05/02/20 10:12 Dose: 200 mg Documented by: Sodium Chloride (0.9% Saline Lock 10 Ml Syringe) 10 - 40 ml IV UD PRN PRN Reason: SALINE FLUSH Tizanidine HCl (Tizanidine Hcl 2 Mg Tablet) 4 mg PO TID PRN PRN PRN Reason: MUSCLE SPASM Last Admin: 04/29/20 21:15 Dose: 4 mg Documented by: Medical Necessity - Tobacco Use Smoking Status: Never smoker Tobacco Use: Non-smoker Route of nutrition/ use of supplements: [] Nutritional Intake: [] IV Site: [] Coyle Catheter: [] - Assessment/Plan Antibiotics: [] Assessment/Plan: [] Active and Suspected Problems Facial abscess (Acute) MRSA chin/neck abscess. Now s/p I&D by Dr. Parnell 05/01/20. On iv vanc. Plan on discharge on po doxy 100mg bid for 10 days. Will follow
[2020-05-02] MEDS: 0.9% Saline Lock 10 ML Syringe IV (19:03)
[2020-05-02] MEDS: Enoxaparin 40 MG/0.4 ML Syringe SC (20:17)
[2020-05-02] MEDS: NIFEdipine 30 MG Tablet PO (21:48)
[2020-05-02] MEDS: Atenolol 50 MG Tablet PO (21:48)
[2020-05-03] VITALS (7 sets, daily range): BP systolic 120–139; BP diastolic 51–76; PULSE 60–80; RESP 12–18; TEMP 36.7–37.2; O2SAT 95–100
[2020-05-03] MEDS: 0.9% Saline Lock 10 ML Syringe IV (04:01)
[2020-05-03 04:06] LABS: Vancomycin, Trough Level 11.7 ug/mL (5.0-15.0)
--- NOTE | 2020-05-03 04:52 | PCM.RX.CS ---
Consult Pharmacy has been consulted to manage selected antiobiotic: Vancomycin Type of Consult: Follow-up Labs: Sodium 140 mmol/L (136-145) 05/02/20 06:15 Potassium 3.8 mmol/L (3.5-5.1) 05/02/20 06:15 Chloride 107 mmol/L (98-107) 05/02/20 06:15 Carbon Dioxide 28.0 mmol/L (21.0-32.0) 05/02/20 06:15 Anion Gap 5 (5-15) 05/02/20 06:15 BUN 15 mg/dL (7-18) 05/02/20 06:15 Creatinine 0.62 mg/dL (0.55-1.02) 05/02/20 06:15 Est GFR (MDRD) Af Amer 133 mL/min (>60) 05/02/20 06:15 Est GFR (MDRD) Non-Af 110 mL/min (>60) 05/02/20 06:15 BUN/Creatinine Ratio 24.1 RATIO (10-20) H 05/02/20 06:15 Glucose 106 mg/dL (74-106) 05/02/20 06:15 Vancomycin Trough 11.7 ug/mL (5.0-15.0) 05/03/20 03:10 Microbiology: Microbiology 05/01/20 13:54 Wound Abcess - Face Gram Stain - Final 05/01/20 13:54 Wound Abcess - Face Wound Culture - Preliminary Staphylococcus aureus 04/30/20 18:05 Discharge - Aerobic & Anaerobic Swabs Gram Stain - Final 04/30/20 18:05 Discharge - Aerobic & Anaerobic Swabs Wound Culture - Final Meth. resistant Staph. aureus 04/29/20 17:20 Blood Culture (Wb) - Anticubital Right Blood Culture - Preliminary No growth in 48 hours. 04/29/20 17:25 Blood Culture (Wb) - Anticubital Left Blood Culture - Preliminary No growth in 48 hours. 04/30/20 17:50 Mucosa - Nose SARS-CoV-2 Antigen (Rapid) - Final Goal Trough: 10-15 mcg/mL Pharmacy Plan for Drug Dosing: Pharmacy Service will continue to monitor and adjust dosing as required. TROUGH 11.7 IN RANGE NO CHANGES FOLLOW UP WITH NEXT TROUGH 05/07 Follow-Up Labs: Trough Vancomycin Labs to be done on [date and time ordered]: 05/07 @ 2378
[2020-05-03] MEDS: oxyCODONE 5 MG Tablet 10 MG PO ×2 (08:11→14:11)
[2020-05-03] MEDS: Etodolac 300 MG Capsule PO (09:15)
[2020-05-03] MEDS: Sertraline 100 MG Tablet 200 MG PO (09:15)
[2020-05-03] MEDS: Pantoprazole Sodium 40 MG Tablet PO (09:15)
--- NOTE | 2020-05-03 11:19 | PCM.DC ---
- Discharge Diagnoses Current Active Problems: Current Active and Chronic Problems Facial abscess (Acute) Morbid obesity (Chronic) HTN (hypertension) (Chronic) GERD (gastroesophageal reflux disease) (Chronic) Depression (Chronic) Low back pain (Chronic) You will use the following diet at home:: Cardiac Your food should be the consistency of: Regular Discharge Activity: May Not Drive - for 1 week, May not drive while taking narcotic pain medications. Call your doctor if you observe: Fever of 101 or Higher, Coldness, Increased Pain, Numbness or Tingling, Change in Color, Inability to urinate, Inability to have a bowel movement, Shortness of breath, Dizziness, Fainting spells, Swelling in the ankles, Chest pain, Prolonged hiccoughing, Increased palpitations (irregular heartbeat), Calf discomfort, Uncontrolled pain Additional Instructions: Dressing change as per wound nurse instruction. Allergies/Adverse Reactions: Allergies bupropion Allergy (Verified 04/29/20 16:57) Itching Medications to take at Discharge NIFEdipine [Procardia Xl] 30 mg PO DAILY 12/14/14 Clonazepam [Clonazepam Tab.Rapdis] 1 mg PO DAILY PRN 07/17/16 Omeprazole [Prilosec] 40 mg PO BID 07/17/16 Hydrocodone/Acetaminophen [[place] 5-325 Tablet] 1 each PO BID PRN 04/22/17 Nabumetone [Relafen] 750 mg PO BID 04/29/20 Sertraline HCl [Zoloft] 200 mg PO DAILY 04/29/20 Tizanidine HCl [Zanaflex] 4 mg PO TID PRN 04/29/20 Atenolol [Tenormin (beta may)] 50 mg PO DAILY #0 05/03/20 Doxycycline 100 mg PO BID #20 cap 05/03/20 The following prescriptions were given: Doxycycline 100 mg PO BID #20 cap Transmission Status: [id number] Primary Care Physician: Aftab Sevilla MD [Primary Care Provider] - Please follow up with your Primary Care Physician in: 1 to 2 weeks Test Results: Test results from this visit will be discussed in further detail at your follow-up appointment, if applicable. Please Follow Up With: Benjamin Parnell MD When: In wound clinic in 2 weeks
--- NOTE | 2020-05-03 12:20 | DS.PCM_ITS ---
Discharge Date and Diagnosis - Problem List Patient Problems: Active and Suspected Problems Facial abscess (Acute) Date of Admission: 04/29/20 Date of Discharge: 05/03/20 - Primary Discharge Diagnosis Acute Problems: Active Problems Facial abscess (Acute) - Secondary Discharge Diagnosis Chronic Problems: Chronic Problems History of methicillin resistant staphylococcus aureus (MRSA) (Chronic) Morbid obesity (Chronic) HTN (hypertension) (Chronic) GERD (gastroesophageal reflux disease) (Chronic) Depression (Chronic) Low back pain (Chronic) Spondylosis of lumbar region without myelopathy or radiculopathy (Chronic) Hospital Course and Treatment Consultations 04/30/20 11:19 Consult: Onc/Wound/lead game designer Routine Comment: Summary of Care Provided: [] The patient is a 45-year-old female admitted for facial, chin abscess with surrounding cellulitis. CT of the face/sinus and soft tissue neck reported diffuse induration of subcutaneous fat anterior and inferior to mandible with involvement of platysma suggestive of cellulitis. No deep abscess noted in CT. No palpable cervical lymphadenopathy. No involvement of deep oropharyngeal spaces. 1. Facial/chin abscess with surrounding cellulitis with involvement of platysma- patient was admitted on [facility]. Initial wound culture after incision and drainage: 04/30 shows MRSA. Initially, oral surgeon Dr Last was called but he said her oral dentures are normal therefore he suggested to consult other surgeon. Thereafter, Dr. Parnell was requested and consulted. Patient was taken to the OR on 04/30 and had excisional debridement of abscess involving platysma muscle. Prealbumin level normal. Vanco trough 8.3. Patient antibiotic is changed to doxycycline 100 mg p.o. twice daily for 10 more days. Patient is discharged on Raywick 5/325 twice daily as needed for severe pain of face and neck, total of [address] Nolasco for lower back pain with sciatica, lumbar degenerative disorder. Follow-up with Dr. Zhou next week. Her baseline Raywick is 1 tablet twice daily as needed. OARSS report reviewed. Tot al Narc score 71, sedated 220, overdose risk score 120. Her last prescription was 04/27/[address] Nolasco 2. Morbid obesity -mill hand evaluation. BMI 42.6 kg/m? 3. HTN -pressure in normal range continue home meds 4. Anxiety/Depression - continue home meds 5. GERD - PPI DVT ppx: Moderate risk due to morbid obesity. Lovenox 40 subcu daily. Discharge medication reconciliation done. Discharge follow-up instructions completed. Discharge process discussed with the patient and all questions were answered to patient's satisfaction. Advised to follow-up in wound clinic in 2 weeks with follow-up with Dr. Parnell. Dressing change and home health care instated. Total time spent, exact 35 minutes on discharge meds reconciliation, examination, coordination of care with nurses and ancillary staff, review of imaging and blood test and discussion with the patient on follow-up instructions Patient Problems: Active and Suspected Problems Facial abscess (Acute) Objective: No fever or chills. Patient blood pressure is well controlled. Heart rate within normal limit. Patient with chin swelling, pain and facial swelling is much improved. Physical exam General: Alert, Oriented x3, Cooperative HEENT: Atraumatic, PERRLA, EOMI, Normocephalic. Surgical dressing over chin and upper neck is dry. tenderness and swelling of her chin and face has improved. Oral: No obvious lower incisor gingivitis/cavity/sinus tract noticed. Upper jaw dentures. No Gingival or Mucosal Lesions/ Ulcerations Neck: Supple, No JVD, Negative Carotid Bruits Lungs: Air entry diminished in bilateral lung bases. No crepitation/rhonchi Cardiovascular: Regular rate, Regular Rhythm, Normal S1, Normal S2, No murmurs Abdomen: Bowel Sounds Present, Soft, Non Tender, Non-Distended : No renal angle tenderness. No suprapubic tenderness. Extremities: No edema, Capillary Refill Less than 3 Seconds Skin: No rashes, No breakdown Musculoskeletal: No Tenderness to Palpation of Joints or Extremities Neurological: Cranial nerves II-XII grossly intact, Deep Tendon Reflexes 2+/4 and Symmetrical, Neuro grossly intact Psych/Mental Status: Normal Affect, Appropriate. - Physical Exam Vitals/I&O's: Vital Signs Temp Pulse Resp BP Pulse Ox 98.1 F 65 15 123/51 H 95 05/03/20 11:48 05/03/20 11:48 05/03/20 11:48 05/03/20 11:48 05/03/20 11:48 Oxygen Delivery Method Room Air Weight: 248 lb 3.848 oz Body Mass Index (BMI) 42.6 Intake and Output for Last 24 Hours 05/01/20 05/02/20 05/03/20 23:59 23:59 23:59 Intake Total 2931.66 / 2931.66 4211.17 / 4211.17 545.25 / 545.25 Output Total 2900 / 2900 650 / 650 Balance 31.66 / 31.66 3561.17 / 3561.17 545.25 / 545.25 Microbiology Past 72 Hours 05/01/20 13:54 Wound Abcess - Face Gram Stain - Final 05/01/20 13:54 Wound Abcess - Face Wound Culture - Final Meth. resistant Staph. aureus 05/01/20 13:54 Wound Abcess - Face Anaerobic Culture - Final No anaerobic bacteria isolated. 04/30/20 18:05 Discharge - Aerobic & Anaerobic Swabs Gram Stain - Final 04/30/20 18:05 Discharge - Aerobic & Anaerobic Swabs Wound Culture - Final Meth. resistant Staph. aureus 04/30/20 18:05 Discharge - Aerobic & Anaerobic Swabs Anaerobic Culture - Final No anaerobic bacteria isolated. 04/29/20 17:20 Blood Culture (Wb) - Anticubital Right Blood Culture - Preliminary No growth in 48 hours. 04/29/20 17:25 Blood Culture (Wb) - Anticubital Left Blood Culture - Preliminary No growth in 48 hours. 04/30/20 17:50 Mucosa - Nose SARS-CoV-2 Antigen (Rapid) - Final Laboratory Results 05/03/20 03:10: Vancomycin Trough 11.7 Current Medications Atenolol (Atenolol 50 Mg Tablet) 50 mg PO QHS [facility] Last Admin: 05/02/20 21:48 Dose: 50 mg Documented by: Clonazepam (Clonazepam 1 Mg Tablet) 1 mg PO DAILY PRN PRN PRN Reason: ANXIETY Diazepam (Diazepam 5 Mg Tablet) 5 mg PO 4X/DAY PRN PRN PRN Reason: SPASMS Enoxaparin Sodium (Enoxaparin 40 Mg/0.4 Ml Syringe) 40 mg SC DAILY@1999 [facility] Last Admin: 05/02/20 20:17 Dose: 40 mg Documented by: Etodolac (Etodolac 300 Mg Capsule) 300 mg PO BID [facility] Last Admin: 05/03/20 09:15 Dose: 300 mg Documented by: Hydromorphone HCl (Hydromorphone 1 Mg/Ml Syringe) 1 mg IV Q4H PRN PRN PRN Reason: Pain Score 6-10 Vancomycin IV Pharmacy to Dose (1 ea/ Sodium Chloride) 500 mls @ 250 mls/hr IV X1 PRN; Protocol PRN Reason: Rx to Dose Vancomycin HCl 1,500 mg/ (Sodium Chloride) 530 mls @ 250 mls/hr IV Q12H [facility] Last Infusion: 05/03/20 06:09 Dose: Infused Documented by: Sodium Chloride () 250 mls @ 15 mls/hr IV .[id number] PRN PRN Reason: Saline Flush Last Infusion: 05/03/20 07:10 Dose: 0 mls/hr Documented by: Nifedipine (Nifedipine 30 Mg Tablet) 30 mg PO QHS [facility] Last Admin: 05/02/20 21:48 Dose: 30 mg Documented by: Ondansetron HCl (Ondansetron 4 Mg/2 Ml Vial) 4 mg IV Q8H PRN PRN PRN Reason: NAUSEA/VOMITING Oxycodone HCl (Oxycodone 5 Mg Tablet) 10 mg PO Q4H PRN PRN PRN Reason: Pain Score 4-10 Last Admin: 05/03/20 08:11 Dose: 10 mg Documented by: Pantoprazole Sodium (Pantoprazole Sodium 40 Mg Tablet) 40 mg PO BID [facility] Last Admin: 05/03/20 09:15 Dose: 40 mg Documented by: Sertraline HCl (Sertraline 100 Mg Tablet) 200 mg PO DAILY [facility] Last Admin: 05/03/20 09:15 Dose: 200 mg Documented by: Sodium Chloride (0.9% Saline Lock 10 Ml Syringe) 10 - 40 ml IV UD PRN PRN Reason: SALINE FLUSH Last Admin: 05/03/20 04:01 Dose: 20 ml Documented by: Tizanidine HCl (Tizanidine Hcl 2 Mg Tablet) 4 mg PO TID PRN PRN PRN Reason: MUSCLE SPASM Last Admin: 04/29/20 21:15 Dose: 4 mg Documented by: Discharge Activity: May Not Drive - for 1 week, May not drive while taking narcotic pain medications. Call your doctor if you observe: Fever of 101 or Higher, Coldness, Increased Pain, Numbness or Tingling, Change in Color, Inability to urinate, Inability to have a bowel movement, Shortness of breath, Dizziness, Fainting spells, Swelling in the ankles, Chest pain, Prolonged hiccoughing, Increased palpitations (irregular heartbeat), Calf discomfort, Uncontrolled pain Home Medications: Medications to take at Discharge NIFEdipine [Procardia Xl] 30 mg PO DAILY 12/14/14 Clonazepam [Clonazepam Tab.Rapdis] 1 mg PO DAILY PRN 07/17/16 Omeprazole [Prilosec] 40 mg PO BID 07/17/16 Nabumetone [Relafen] 750 mg PO BID 04/29/20 Sertraline HCl [Zoloft] 200 mg PO DAILY 04/29/20 Tizanidine HCl [Zanaflex] 4 mg PO TID PRN 04/29/20 Atenolol [Tenormin (beta may)] 50 mg PO DAILY #0 05/03/20 Doxycycline 100 mg PO BID #20 cap 05/03/20 Hydrocodone Bitart/Apap 5-325 [Raywick 5MG-325MG] 1 tab PO BID PRN 7 Days #15 tab 05/03/20 Following Prescriptions Were Given to Patient: Doxycycline 100 mg PO BID #20 cap Transmission Status: Received by [facility] Hydrocodone Bitart/Apap 5-325 [Raywick 5MG-325MG] 1 tab PO BID PRN 7 Days #15 tab PRN Reason: Pain Score 6-10 Transmission Status: Received by [facility] Primary Care Physician: Aftab Sevilla MD [Primary Care Provider] - Please follow up with your Primary Care Physician in: 1 to 2 weeks Please Follow Up With: Benjamin Parnell MD When: In wound clinic in 2 weeks Medical Necessity - Tobacco Use Smoking Status: Never smoker Tobacco Use: Non-smoker Meaningful Use Info Meaningful Use Diagnoses (Choose all that apply): None applicable Inpatient E&M: 28994 Disch Hosp
--- NOTE | 2020-05-07 14:38 | CASEMGMT ---
GIORGI JORDAN Discharge Follow-up Phone Call: KERI: Shanel Strata: 3 Call Date: 05/07/20 Discharge Date: 05/03/20 Time of Call: 1435 Duration: 1 min Admitting Diagnosis: Facial cellulits RN NIKKI attempted to complete follow-up phone call after recent hospitalization. No answer, voice message left with return contact information. Patient was setup with [facility] at discharge.
== END 2020-05-03 15:06 | disposition home or self-care (01) | DRG 383 ==
LOC: ED 18:18 → MS3 18:51
PROVIDERS: Internal Medicine Infectious Disease; Physician Assistant; Surgery; Admitting Provider Internal Medicine; Emergency Provider Emergency Medicine; PCP Family Medicine; Visit Provider Internal Medicine
PROC: 0HB1XZZ Excision of Face Skin, External Approach (ICD-10-PCS; principal; 2020-05-01 12:20)
DX: L02.01 Cutaneous abscess of face (principal); L03.211 Cellulitis of face; A49.02 Methicillin resistant Staphylococcus aureus infection, unspecified site; E66.01 Morbid (severe) obesity due to excess calories; I10 Essential (primary) hypertension; K21.9 Gastro-esophageal reflux disease without esophagitis; F32.9 Major depressive disorder, single episode, unspecified; M47.26 Other spondylosis with radiculopathy, lumbar region; M54.5 Low back pain; F41.9 Anxiety disorder, unspecified; Z68.41 Body mass index [BMI] 40.0-44.9, adult; Z79.1 Long term (current) use of non-steroidal anti-inflammatories (NSAID); Z83.3 Family history of diabetes mellitus; Z86.14 Personal history of Methicillin resistant Staphylococcus aureus infection; Z90.710 Acquired absence of both cervix and uterus
CPT/HCPCS: 36415; 64483; 70487; 70491; 72100; 80048; 80202; 83605; 84134; 85025; 85027; 87040; 87070; 87075; 87077; 87102; 87176; 87186; 87205; 87206; 87426; 87640; 88304; 88305; 93005; 96365; 96375; 99283; 99284; J7030; J7040; J7050; J7120; Q9967; A4216; J0295; J2405

== ENCOUNTER 2020-05-27 13:45 | Outpatient (RCR) | payer MEDICAID, SELFPAY ==
[2020-05-01 09:23] VITALS: BMI 42.6
[2020-05-13 10:04] VITALS: BP 132/85; PULSE 70; RESP 18; TEMP 36.6; BMI 40.3
--- NOTE | 2020-05-13 12:20 | PCM.WC.HP ---
(1) Open wound of neck with complication Status: Acute Code(s): S11.90XA - Unspecified open wound of unspecified part of neck, initial encounter Comment: upper anterior neck (2) Open wound of chin Status: Acute Code(s): S01.80XA - Unspecified open wound of other part of head, initial encounter Comment: left chin (3) History of methicillin resistant staphylococcus aureus (MRSA) Status: Chronic Code(s): Z86.14 - Personal history of Methicillin resistant Staphylococcus aureus infection (4) Abscess of neck Status: Acute Code(s): L02.11 - Cutaneous abscess of neck Comment: upper anterior neck (5) Abscess of chin Status: Acute Code(s): L02.01 - Cutaneous abscess of face Comment: left chin History of Present Illness Date of Service: 05/13/20 Chief Complaint: Open wound of chin and anterior neck History of Wound: Surgery 05/01/20 - 1. Surgical preparation left chin with incision and drainage and excisional debridement abscess involving underlying muscle (7.5 cm2). 2. Surigical preparation upper anterior neck with incision and drainage and excisional debridement abscess involving underlying muscle (6.25 cm2). Operative culture postive for MRSA. She is being treated with Doxycycline. Wound care - Daily silver alginate dressing changes. Prealbumin 22.7 from 05/02/20. Encouraged protein intact to help improve wound healing. She denies fever, she states her appetite is good. Past Medical History Past Medical History: Chronic Problems History of methicillin resistant staphylococcus aureus (MRSA) (Chronic) Morbid obesity (Chronic) HTN (hypertension) (Chronic) GERD (gastroesophageal reflux disease) (Chronic) Depression (Chronic) Low back pain (Chronic) Spondylosis of lumbar region without myelopathy or radiculopathy (Chronic) Surgical History: cholecystectomy, hysterectomy, - - Chin and anterior neck abscess drainage 05/01/20 Allergies/Adverse Reactions: Allergies bupropion Allergy (Verified 05/13/20 10:29) Itching Home Medications: Ambulatory Orders Medication Instructions Recorded NIFEdipine [Procardia Xl] 30 mg PO DAILY 12/14/14 Clonazepam [Clonazepam Tab.Rapdis] 1 mg PO DAILY PRN 07/17/16 Omeprazole [Prilosec] 40 mg PO BID 07/17/16 Nabumetone [Relafen] 750 mg PO BID 04/29/20 Sertraline HCl [Zoloft] 200 mg PO DAILY 04/29/20 Tizanidine HCl [Zanaflex] 4 mg PO TID PRN 04/29/20 Atenolol [Tenormin (beta may)] 50 mg PO DAILY #0 05/03/20 Doxycycline 100 mg PO BID #20 cap 05/03/20 hydrocodone 5 mg-acetaminophen 325 1 tab PO TID PRN 7 Days #14 tab 05/13/20 mg tablet - Family History Maternal Diabetes Paternal - - aortic aneurysm Smoking Status: Never smoker Review of Systems Constitutional: Denies: Chills, Fever, Weight Change Eyes: Denies: Pain, Vision Change HEENT: Denies: Difficulty Hearing, Difficulty Swallowing, Sinus Congestion Cardiovascular: Denies: Chest Pain, Palpitations Respiratory: Denies: Cough, Shortness of Breath Gastrointestinal: Denies: Diarrhea, Nausea, Vomiting Genitourinary: Denies: Dysuria, Hematuria Musculoskeletal: Reports: Joint Pain Skin: Reports: Wounds - Left chin and upper anterior neck wounds Neurological: Denies: Balance problems, Blurred vision, Double vision Psychiatric: Denies: Homicidal Ideations, Suicidal Ideations Endocrine: Denies: Heat/ Cold Intolerance, Polydipsia, Polyuria Hematologic/ Lymphatic: Denies: Easy Bruising, Easy Bleeding - Physical Exam Vital Signs Temp Pulse Resp BP 97.9 F 70 18 132/85 H 05/13/20 10:04 05/13/20 10:04 05/13/20 10:04 05/13/20 10:04 General: Alert, Oriented x3, Cooperative HEENT: Atraumatic Oral: Moist Mucosa Lungs: Normal air movement Cardiovascular: Regular rate Abdomen: Soft Extremities: Capillary Refill Less than 3 Seconds Skin: Ulcer/ Wound - Left chin and upper anterior neck wounds are clean, beefy pink. No active bleeding. Wound Measurements and Assessment WC - Nurse 1 - General Ulcer Measurement Start: 05/13/20 10:04 Freq: Status: Active Protocol: Activity Type Activity Date Activity User E-Sign Co-Sign Detail Recorded Client Recorded Date Recorded By Document 05/13/20 10:04 CORNELL [id number] 05/13/20 10:25 DL 05/13/20 10:04 Wound Center Nurse 1 [Ulcer Assessment] #2 neck -Current Size (cm) - Length 3 -Current Size (cm) - Width 1 -Current Size (cm) - Depth 1.4 -Total Square Cm 3 -Photo Taken Yes -Exudate Amt Medium -Exudate Type Serosanguineous -Wound Margin Distinct, Outline Attached -Granulation Amt Small (1-33%) -Granulation Quality [place] -Necrosis Amt Large (67-100%) -Necrotic Tissue Type Eschar -Structure Exposed N/A -Texture (Alda-wound Skin Appearance) Scarring -Moisture (Alda-wound Skin Appearance No Abnormality ) -Color (Alda-wound Skin Appearance) No Abnormality -Temperature (Alda-wound Skin No Abnormality Appearance) (Pt Warm) -Tenderness on Palpation (Alda-wound No Skin Appearance) -Ulcer Cleansing Wound Cleanser -Foul Odor after Cleansing No -Anesthetic Used 4% Lidocaine Solution #1 chin -Current Size (cm) - Length 2.1 -Current Size (cm) - Width 3 -Current Size (cm) - Depth 0.6 -Total Square Cm 6.3 -Photo Taken Yes -Exudate Amt Medium -Exudate Type Serosanguineous -Wound Margin Distinct, Outline Attached -Granulation Amt Small (1-33%) -Granulation Quality [place] -Necrosis Amt Large (67-100%) -Necrotic Tissue Type Adherent Slough -Structure Exposed N/A -Texture (Alda-wound Skin Appearance) Scarring -Moisture (Alda-wound Skin Appearance No Abnormality ) -Color (Alda-wound Skin Appearance) No Abnormality -Temperature (Alda-wound Skin No Abnormality Appearance) (Pt Warm) -Tenderness on Palpation (Alda-wound No Skin Appearance) -Ulcer Cleansing Wound Cleanser -Foul Odor after Cleansing No -Anesthetic Used 4% Lidocaine Solution WC - Nurse 2 - General Ulcer CM Notes Start: 05/13/20 10:04 Freq: Status: Active Protocol: Activity Type Activity Date Activity User E-Sign Co-Sign Detail Recorded Client Recorded Date Recorded By Document 05/13/20 10:51 ANDRES [id number] 05/13/20 10:57 ANDRES 05/13/20 10:51 Wound Center Nurse 2 [Procedure/Treatment] #2 neck -Time 10:52 -Correct Patient Yes -Correct Side, Site, Position Yes -Correct Procedure Yes -Procedure Performed Yes -Type of Procedure Debridement -Clinical Debridement Subcutaneous -Tissue Removed Subcutaneous -Post Debridement (cm) - Length 3 -Post Debridement (cm) - Width 1.5 -Post Debridement (cm) - Depth 1 -Total Square (Post) (cm) 4.5 -Area of Debridement (cm) - Length 3 -Area of Debridement (cm) - Width 1.5 -Total Square (Area) (cm) 4.5 -Tunneling No -Undermining/Tunneling No -Circular Undermining No -Wound/Ulcer Outcome Not Healed -Ulcer Cleansing Rinsed/ Irrigated with Saline -Foul Odor after Cleansing No -Bioengineered Tissue No -Bleeding Controlled with Pressure -Offloading No -Treatment Response Procedure Tolerated Well -Debridement - Subq, 1st 20sq cm Yes #1 chin -Time 10:52 -Correct Patient Yes -Correct Side, Site, Position Yes -Correct Procedure Yes -Procedure Performed Yes -Type of Procedure Debridement -Clinical Debridement Subcutaneous -Tissue Removed Subcutaneous -Post Debridement (cm) - Length 1.8 -Post Debridement (cm) - Width 2 -Post Debridement (cm) - Depth 0.8 -Total Square (Post) (cm) 3.6 -Area of Debridement (cm) - Length 1.8 -Area of Debridement (cm) - Width 2 -Total Square (Area) (cm) 3.6 -Tunneling No -Undermining/Tunneling No -Circular Undermining No -Wound/Ulcer Outcome Not Healed -Ulcer Cleansing Rinsed/ Irrigated with Saline -Foul Odor after Cleansing No -Bioengineered Tissue No -Bleeding Controlled with Pressure -Offloading No -Treatment Response Procedure Tolerated Well -Debridement - Subq, 1st 20sq cm No [See Physician Procedure note for Specifics] Pain Scale: 0-10 Numeric [Pain] -Is Patient Pain Free? Yes WC - Nurse 3 - General Ulcer D/C NN Start: 05/13/20 10:04 Freq: Status: Active Protocol: Activity Type Activity Date Activity User E-Sign Co-Sign Detail Recorded Client Recorded Date Recorded By Document 05/13/20 11:06 DL [id number] 05/13/20 11:07 DL 05/13/20 11:06 Wound Care Nurse 3 [Wound Dressing] #2 neck -Ulcer Cleansing Rinsed/ Irrigated with Saline -Foul Odor after Cleansing No -Primary Dressing Applied Aquacel AG 4x4 -Primary Dressing Covered/Secured Dry Gauze, with Secured with Tape -Aquacel AG 4x4 1 #1 chin -Ulcer Cleansing Rinsed/ Irrigated with Saline -Foul Odor after Cleansing No -Other Dressing aqaucel ag -Primary Dressing Covered/Secured Dry Gauze, with Secured with Tape Pain Scale: 0-10 Numeric [Pain] -Is Patient Pain Free? Yes WC - Visit Discharge [Visit Discharge Information] -Discharge Condition Stable -Ambulatory Status Ambulatory -Transportation Private Auto [Facility Notification] -Facility Type Home Health -Telephoned (if yes, spoke with:) Yes Musculoskeletal: No Tenderness to Palpation of Joints or Extremities Neurological: Cranial nerves II-XII grossly intact Psych/Mental Status: Normal Affect, Appropriate Debridement Note Post-Debridement Measurements/Treatment - Nurse 2 - General Ulcer CM Notes Start: 05/13/20 10:04 Freq: Status: Active Protocol: Activity Type Activity Date Activity User E-Sign Co-Sign Detail Recorded Client Recorded Date Recorded By Document 05/13/20 10:51 ANDRES [id number] 05/13/20 10:57 ANDRES 05/13/20 10:51 Wound Center Nurse 2 #2 neck -Time 10:52 -Correct Patient Yes -Correct Side, Site, Position Yes -Correct Procedure Yes -Procedure Performed Yes -Type of Procedure Debridement -Clinical Debridement Subcutaneous -Tissue Removed Subcutaneous -Post Debridement (cm) - Length 3 -Post Debridement (cm) - Width 1.5 -Post Debridement (cm) - Depth 1 -Total Square (Post) (cm) 4.5 -Area of Debridement (cm) - Length 3 -Area of Debridement (cm) - Width 1.5 -Total Square (Area) (cm) 4.5 -Tunneling No -Undermining/Tunneling No -Circular Undermining No -Wound/Ulcer Outcome Not Healed -Ulcer Cleansing Rinsed/ Irrigated with Saline -Foul Odor after Cleansing No -Bioengineered Tissue No -Bleeding Controlled with Pressure -Offloading No -Treatment Response Procedure Tolerated Well -Debridement - Subq, 1st 20sq cm Yes #1 chin -Time 10:52 -Correct Patient Yes -Correct Side, Site, Position Yes -Correct Procedure Yes -Procedure Performed Yes -Type of Procedure Debridement -Clinical Debridement Subcutaneous -Tissue Removed Subcutaneous -Post Debridement (cm) - Length 1.8 -Post Debridement (cm) - Width 2 -Post Debridement (cm) - Depth 0.8 -Total Square (Post) (cm) 3.6 -Area of Debridement (cm) - Length 1.8 -Area of Debridement (cm) - Width 2 -Total Square (Area) (cm) 3.6 -Tunneling No -Undermining/Tunneling No -Circular Undermining No -Wound/Ulcer Outcome Not Healed -Ulcer Cleansing Rinsed/ Irrigated with Saline -Foul Odor after Cleansing No -Bioengineered Tissue No -Bleeding Controlled with Pressure -Offloading No -Treatment Response Procedure Tolerated Well -Debridement - Subq, 1st 20sq cm No Pain Scale: 0-10 Numeric Is Patient Pain Free? Yes - Nurse 3 - General Ulcer D/C NN Start: 05/13/20 10:04 Freq: Status: Active Protocol: Activity Type Activity Date Activity User E-Sign Co-Sign Detail Recorded Client Recorded Date Recorded By Document 05/13/20 11:06 CORNELL [id number] 05/13/20 11:07 CORNELL 05/13/20 11:06 Wound Care Nurse 3 #2 neck -Ulcer Cleansing Rinsed/ Irrigated with Saline -Foul Odor after Cleansing No -Primary Dressing Applied Aquacel AG 4x4 -Primary Dressing Covered/Secured with Dry Gauze, Secured with Tape -Aquacel AG 4x4 1 #1 chin -Ulcer Cleansing Rinsed/ Irrigated with Saline -Foul Odor after Cleansing No -Other Dressing aqaucel ag -Primary Dressing Covered/Secured with Dry Gauze, Secured with Tape Pain Scale: 0-10 Numeric Is Patient Pain Free? Yes - Visit Discharge Discharge Condition Stable Ambulatory Status Ambulatory Transportation Private [facility] [place] Facility Type Home Health Telephoned (if yes, spoke with:) Yes Wound debrided: Chin wound Laterality: Left Type of Debridement: Excisional debridement Anesthesia Used: 5% Lidocaine Gel Depth: Down to and including healthy tissue, in the subcutaneous layer Percentage of wound debrided: 100 Instrument Used: 5mm curette Tissue Removed: Subcutaneous tissue and slough Severity: Fat Layer Exposed Amount of bleeding with debridement: Mild Bleeding Controlled with: Pressure Patient tolerated procedure well - Additional Wound Wound debrided: Upper anterior neck wound Type of Debridement: Excisional debridement Anesthesia Used: 5% Lidocaine Gel Depth: Down to and including healthy tissue, in the subcutaneous layer Percentage of wound debrided: 100 Instrument Used: 5mm curette Tissue Removed: Subcutaneous tissue and slough Severity: Fat Layer Exposed Amount of bleeding with debridement: Mild Bleeding Controlled with: Pressure Patient tolerated procedure: Patient tolerated procedure well Assessment/Plan Active Problems Open wound of neck with complication (Acute) upper anterior neck Open wound of chin (Acute) left chin History of methicillin resistant staphylococcus aureus (MRSA) (Chronic) Abscess of neck (Acute) upper anterior neck Abscess of chin (Acute) left chin Assessment: 1. Open wound of upper anterior neck with complication. 2. Open wound of left chin. 3. History of methicillin resistant staphylococcus aureus (MRSA). 4. Abscess of upper anterior neck. 5. Abscess of left chin Plan: Wound care - Daily Silver alginate dressing changes daily after washing with soap and water. Operative wound cultures showed MRSA. Continue Doxycycline. She is having pain with the dressing changes and at night. She sees pain management who gave her 15 Alcalde to last her a month. I instructed her that if it is OK with Pain managment, I can give her something for her pain. She states that Percocet does not work for her and she prefers Alcalde. She did clear it with her pain management for us to be able to treat her post-operative pain. Alcalde (14 tabs) prescribed. PDMP reviewed. Follow up one week. [id number]: [id number] Global Visit
[2020-05-20 13:52] VITALS: BP 137/87; PULSE 59; RESP 18; TEMP 35.5; BMI 40.3
--- NOTE | 2020-05-20 23:39 | PN.PCM_ITS ---
Type of Wound Date of Service: 05/20/20 Chief Complaint: Open surgical MRSA wound of left chin and upper anterior neck. History of Wound: Surgery 05/01/20 - 1. Surgical preparation left chin with incision and drainage and excisional debridement abscess involving underlying muscle (7.5 cm2). 2. Surigical preparation upper anterior neck with incision and drainage and excisional debridement abscess involving underlying muscle (6.25 cm2). Operative culture postive for MRSA. She is being treated with Doxycycline. Wound care - Daily silver alginate dressing changes. Prealbumin 22.7 from 05/02/20. Encouraged protein intact to help improve wound healing. She denies fever, she states her appetite is good. Progress of Wound: Improved. - Physical Exam Vital Signs Temp Pulse Resp BP 96 F L 59 L 18 137/87 H 05/20/20 13:52 05/20/20 13:52 05/20/20 13:52 05/20/20 13:52 Wound Measurements and Assessment WC - Nurse 1 - General Ulcer Measurement Start: 05/13/20 10:04 Freq: Status: Active Protocol: Activity Type Activity Date Activity User E-Sign Co-Sign Detail Recorded Client Recorded Date Recorded By Document 05/20/20 13:52 DL [id number] 05/20/20 14:02 DL 05/20/20 13:52 Wound Center Nurse 1 [Ulcer Assessment] #2 neck -Current Size (cm) - Length 2.5 -Current Size (cm) - Width 0.9 -Current Size (cm) - Depth 0.6 -Total Square Cm 2.25 -Photo Taken No -Undermining/Tunneling Yes -Undermining/Tunneling Starts (O' 7 clock) -Undermining/Tunneling Ends (O'clock) 3 -Maximum Distance (cm) 0.3 -Exudate Type Serosanguineous -Wound Margin Distinct, Outline Attached -Granulation Amt Small (1-33%) -Granulation Quality [place] -Necrosis Amt Large (67-100%) -Necrotic Tissue Type Adherent Slough -Texture (Alda-wound Skin Appearance) Localized Edema ,Scarring -Color (Alda-wound Skin Appearance) Erythema -Temperature ([place]a-wound Skin No Abnormality Appearance) (Pt Warm) -Tenderness on Palpation (Alda-wound No Skin Appearance) -Ulcer Cleansing Rinsed/ Irrigated with Saline -Foul Odor after Cleansing No -Anesthetic Used 5% Lidocaine Gel #1 chin -Current Size (cm) - Length 1.8 -Current Size (cm) - Width 2.5 -Current Size (cm) - Depth 0.5 -Total Square Cm 4.50 -Exudate Amt Medium -Exudate Type Serosanguineous -Wound Margin Distinct, Outline Attached -Granulation Amt Medium (34-66%) -Granulation Quality [place] -Texture (Alda-wound Skin Appearance) Localized Edema ,Scarring -Color (Alda-wound Skin Appearance) Erythema -Foul Odor after Cleansing No -Anesthetic Used 5% Lidocaine Gel WC - Nurse 2 - General Ulcer CM Notes Start: 05/13/20 10:04 Freq: Status: Active Protocol: Activity Type Activity Date Activity User E-Sign Co-Sign Detail Recorded Client Recorded Date Recorded By Document 05/20/20 14:29 ANDRES [id number] 05/20/20 14:34 ANDRES 05/20/20 14:29 Wound Center Nurse 2 [Procedure/Treatment] #2 neck -Time 14:30 -Correct Patient Yes -Correct Side, Site, Position Yes -Correct Procedure Yes -Procedure Performed Yes -Type of Procedure Debridement -Clinical Debridement Subcutaneous -Tissue Removed Subcutaneous -Post Debridement (cm) - Length 2.4 -Post Debridement (cm) - Width 1.2 -Post Debridement (cm) - Depth 0.5 -Total Square (Post) (cm) 2.88 -Area of Debridement (cm) - Length 2.4 -Area of Debridement (cm) - Width 1.2 -Total Square (Area) (cm) 2.88 -Tunneling No -Undermining/Tunneling No -Circular Undermining No -Wound/Ulcer Outcome Not Healed -Bioengineered Tissue No -Bleeding Controlled with Pressure -Offloading No -Treatment Response Procedure Tolerated Well -Debridement - Subq, 1st 20sq cm Yes #1 chin -Time 14:31 -Correct Patient Yes -Correct Side, Site, Position Yes -Correct Procedure Yes -Procedure Performed Yes -Type of Procedure Debridement -Clinical Debridement Subcutaneous -Tissue Removed Subcutaneous -Post Debridement (cm) - Length 1.5 -Post Debridement (cm) - Width 2.7 -Post Debridement (cm) - Depth 0.6 -Total Square (Post) (cm) 4.05 -Area of Debridement (cm) - Length 1.5 -Area of Debridement (cm) - Width 2.7 -Total Square (Area) (cm) 4.05 -Tunneling No -Undermining/Tunneling No -Circular Undermining No -Wound/Ulcer Outcome Not Healed -Ulcer Cleansing Rinsed/ Irrigated with Saline -Foul Odor after Cleansing No -Bioengineered Tissue No -Bleeding Controlled with Pressure -Offloading No -Treatment Response Procedure Tolerated Well -Debridement - Subq, 1st 20sq cm No [See Physician Procedure note for Specifics] - Nurse 3 - General Ulcer D/C NN Start: 05/13/20 10:04 Freq: Status: Active Protocol: Activity Type Activity Date Activity User E-Sign Co-Sign Detail Recorded Client Recorded Date Recorded By Document 05/20/20 14:35 [facility] [id number] 05/20/20 14:36 [facility] 05/20/20 14:35 Wound Care Nurse 3 [Wound Dressing] #2 neck -Ulcer Cleansing Rinsed/ Irrigated with Saline -Foul Odor after Cleansing No -Primary Dressing Applied Silvercel -Primary Dressing Covered/Secured Dry Gauze, with Secured with Tape -Silvercel 1 #1 chin -Ulcer Cleansing Rinsed/ Irrigated with Saline -Foul Odor after Cleansing No -Primary Dressing Applied Silvercel -Primary Dressing Covered/Secured Dry Gauze, with Secured with Tape -Silvercel 0 [Post Procedure Tolerated] -Treatment Response Procedure Tolerated Well Pain Scale: 0-10 Numeric [Pain] -Is Patient Pain Free? Yes - Visit Discharge [Visit Discharge Information] -Discharge Condition Stable -Ambulatory Status Ambulatory -Transportation Private Auto Debridement Note Post-Debridement Measurements/Treatment - Nurse 2 - General Ulcer CM Notes Start: 05/13/20 10:04 Freq: Status: Active Protocol: Activity Type Activity Date Activity User E-Sign Co-Sign Detail Recorded Client Recorded Date Recorded By Document 05/13/20 10:51 [id number] 05/13/20 10:57 Document 05/20/20 14:29 [id number] 05/20/20 14:34 05/13/20 05/20/20 10:51 14:29 Wound Center Nurse 2 #2 neck -Time 10:52 14:30 -Correct Patient Yes Yes -Correct Side, Site, Position Yes Yes -Correct Procedure Yes Yes -Procedure Performed Yes Yes -Type of Procedure Debridement Debridement -Clinical Debridement Subcutaneous Subcutaneous -Tissue Removed Subcutaneous Subcutaneous -Post Debridement (cm) - Length 3 2.4 -Post Debridement (cm) - Width 1.5 1.2 -Post Debridement (cm) - Depth 1 0.5 -Total Square (Post) (cm) 4.5 2.88 -Area of Debridement (cm) - Length 3 2.4 -Area of Debridement (cm) - Width 1.5 1.2 -Total Square (Area) (cm) 4.5 2.88 -Tunneling No No -Undermining/Tunneling No No -Circular Undermining No No -Wound/Ulcer Outcome Not Healed Not Healed -Ulcer Cleansing Rinsed/ Irrigated with Saline -Foul Odor after Cleansing No -Bioengineered Tissue No No -Bleeding Controlled with Pressure Pressure -Offloading No No -Treatment Response Procedure Procedure Tolerated Well Tolerated Well -Debridement - Subq, 1st 20sq cm Yes Yes #1 chin -Time 10:52 14:31 -Correct Patient Yes Yes -Correct Side, Site, Position Yes Yes -Correct Procedure Yes Yes -Procedure Performed Yes Yes -Type of Procedure Debridement Debridement -Clinical Debridement Subcutaneous Subcutaneous -Tissue Removed Subcutaneous Subcutaneous -Post Debridement (cm) - Length 1.8 1.5 -Post Debridement (cm) - Width 2 2.7 -Post Debridement (cm) - Depth 0.8 0.6 -Total Square (Post) (cm) 3.6 4.05 -Area of Debridement (cm) - Length 1.8 1.5 -Area of Debridement (cm) - Width 2 2.7 -Total Square (Area) (cm) 3.6 4.05 -Tunneling No No -Undermining/Tunneling No No -Circular Undermining No No -Wound/Ulcer Outcome Not Healed Not Healed -Ulcer Cleansing Rinsed/ Rinsed/ Irrigated with Irrigated with Saline Saline -Foul Odor after Cleansing No No -Bioengineered Tissue No No -Bleeding Controlled with Pressure Pressure -Offloading No No -Treatment Response Procedure Procedure Tolerated Well Tolerated Well -Debridement - Subq, 1st 20sq cm No No Pain Scale: 0-10 Numeric Is Patient Pain Free? Yes WC - Nurse 3 - General Ulcer D/C NN Start: 05/13/20 10:04 Freq: Status: Active Protocol: Activity Type Activity Date Activity User E-Sign Co-Sign Detail Recorded Client Recorded Date Recorded By Document 05/13/20 11:06 CORNE[facility] [id number] 05/13/20 11:07 DL Document 05/20/20 14:35 [facility] [id number] 05/20/20 14:36 BM 05/13/20 05/20/20 11:06 14:35 Wound Care Nurse 3 #2 neck -Ulcer Cleansing Rinsed/ Rinsed/ Irrigated with Irrigated with Saline Saline -Foul Odor after Cleansing No No -Primary Dressing Applied Aquacel AG 4x4 [place] -Primary Dressing Covered/Secured with Dry Gauze, Dry Gauze, Secured with Secured with Tape Tape -Aquacel AG 4x4 1 -[place] 1 #1 chin -Ulcer Cleansing Rinsed/ Rinsed/ Irrigated with Irrigated with Saline Saline -Foul Odor after Cleansing No No -Primary Dressing Applied [place]cel -Other Dressing aqaucel ag -Primary Dressing Covered/Secured with Dry Gauze, Dry Gauze, Secured with Secured with Tape Tape -Silvercel 0 Treatment Response Procedure Tolerated Well Pain Scale: 0-10 Numeric Is Patient Pain Free? Yes Yes WC - Visit Discharge Discharge Condition Stable Stable Ambulatory Status Ambulatory Ambulatory Transportation Private Auto Private [facility] Facility Type Home Health Telephoned (if yes, spoke with:) Yes Wound debrided: #1 Left chin. Laterality: Left Wound Grade/Stage: 2. Type of Debridement: Excisional debridement Anesthesia Used: 4% Lidocaine Solution Depth: Down to and including healthy tissue, in the subcutaneous layer Percentage of wound debrided: 100 Instrument Used: 5mm curette Tissue Removed: subcutaneous tissue. Severity: Fat Layer Exposed Amount of bleeding with debridement: Mild Bleeding Controlled with: Pressure Patient tolerated procedure well - Additional Wound Wound debrided: #2 Upper anterior neck. Laterality: Not Applicable Wound Grade/Stage: 2. Type of Debridement: Excisional debridement Anesthesia Used: 4% Lidocaine Solution Depth: Down to and including healthy tissue, in the subcutaneous layer Percentage of wound debrided: 100 Instrument Used: 5mm curette Tissue Removed: subcutaneous tissue. Severity: Fat Layer Exposed Amount of bleeding with debridement: Mild Bleeding Controlled with: Pressure Patient tolerated procedure: Patient tolerated procedure well Assessment/Plan Active Problems Open wound of neck with complication (Acute) upper anterior neck Open wound of chin (Acute) left chin History of methicillin resistant staphylococcus aureus (MRSA) (Chronic) Abscess of neck (Acute) upper anterior neck Abscess of chin (Acute) left chin Assessment: 1. Abscess left chin involving underlying muscle. 2. Abscess upper anterior neck involving underlying muscle. 3. Open surgical abscess wound left chin. 4. Open surgical abscess wound upper anterior neck. 5. MRSA. 6. s/p surgical preparation left chin with incision and drainage and excisional debridement abscess involving underlying muscle (7.5 cm2) and surigical preparation upper anterior neck with incision and drainage and excisional debridement abscess involving underlying muscle (6.25 cm2). Plan: Wound care - Daily Silver alginate dressing changes daily after washing with soap and water. Operative wound cultures showed MRSA. Continue Doxycycline. Will renew for 2 weeks with a refill. Prealbumin from 05/02/20 was 22.7. Encourage nutritional supplementation with protein to help the healing process. Keep head elevated. Follow up one week. [id number]: [id number] Global Visit - ICD-10 - Z48.89, L02.01, L02.11, S01.80xA, S11.90xA, A49.02
[2020-05-27 13:46] VITALS: BP 126/71; PULSE 69; RESP 18; TEMP 37.1; BMI 40.3
--- NOTE | 2020-05-27 15:17 | PCM.WC.PN ---
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 History of Wound: Surgery 05/01/20 - 1. Surgical preparation left chin with incision and drainage and excisional debridement abscess involving underlying muscle (7.5 cm2). 2. Surigical preparation upper anterior neck with incision and drainage and excisional debridement abscess involving underlying muscle (6.25 cm2). Operative culture postive for MRSA. She is being treated with Doxycycline. Wound care - Daily silver alginate dressing changes. Prealbumin 22.7 from 05/02/20. Encouraged protein intact to help improve wound healing. She denies fever, she states her appetite is good. Progress of Wound: Improved. - Physical Exam Vital Signs Temp Pulse Resp BP 98.7 F 69 18 126/71 H 05/27/20 13:46 05/27/20 13:46 05/27/20 13:46 05/27/20 13:46 General: Alert, Oriented x3, Cooperative HEENT: Atraumatic Oral: Moist Mucosa Lungs: Normal air movement Cardiovascular: Regular rate Extremities: Capillary Refill Less than 3 Seconds Skin: Ulcer/ Wound - Left chin surgical wound and anterior neck wound are stable. Wound Measurements and Assessment WC - Nurse 1 - General Ulcer Measurement Start: 05/13/20 10:04 Freq: Status: Active Protocol: Activity Type Activity Date Activity User E-Sign Co-Sign Detail Recorded Client Recorded Date Recorded By Document 05/27/20 13:46 DL [id number] 05/27/20 13:53 DL 05/27/20 13:46 Wound Center Nurse 1 [Ulcer Assessment] #2 neck -Current Size (cm) - Length 2.1 -Current Size (cm) - Width 1.1 -Current Size (cm) - Depth 0.6 -Total Square Cm 2.31 -Photo Taken No -Exudate Amt Medium -Exudate Type Serosanguineous -Wound Margin Distinct, Outline Attached -Granulation Amt Medium (34-66%) -Granulation Quality Red -Necrosis Amt Small (1-33%) -Structure Exposed N/A -Texture (Alda-wound Skin Appearance) Scarring -Moisture (Alda-wound Skin Appearance No Abnormality ) -Color (Alda-wound Skin Appearance) No Abnormality -Temperature (Alda-wound Skin No Abnormality Appearance) (Pt Warm) -Tenderness on Palpation (Alda-wound No Skin Appearance) -Ulcer Cleansing Wound Cleanser -Foul Odor after Cleansing No -Anesthetic Used 4% Lidocaine Solution #1 chin -Current Size (cm) - Length 1.2 -Current Size (cm) - Width 2 -Current Size (cm) - Depth 0.4 -Total Square Cm 2.4 -Photo Taken No -Exudate Amt Medium -Exudate Type Serosanguineous -Wound Margin Distinct, Outline Attached -Granulation Amt Medium (34-66%) -Granulation Quality Red -Necrosis Amt Medium (34-66%) -Necrotic Tissue Type Adherent Slough -Structure Exposed N/A -Texture (Alda-wound Skin Appearance) Scarring -Moisture (Alda-wound Skin Appearance No Abnormality ) -Color (Alda-wound Skin Appearance) No Abnormality -Temperature (Alda-wound Skin No Abnormality Appearance) (Pt Warm) -Tenderness on Palpation (Alda-wound No Skin Appearance) -Ulcer Cleansing Wound Cleanser -Foul Odor after Cleansing No -Anesthetic Used 4% Lidocaine Solution WC - Nurse 2 - General Ulcer CM Notes Start: 05/13/20 10:04 Freq: Status: Active Protocol: Activity Type Activity Date Activity User E-Sign Co-Sign Detail Recorded Client Recorded Date Recorded By Document 05/27/20 14:11 ANDRES [id number] 05/27/20 14:14 ANDRES 05/27/20 14:11 Wound Center Nurse 2 [Procedure/Treatment] #2 neck -Time 14:11 -Correct Patient Yes -Correct Side, Site, Position Yes -Correct Procedure Yes -Procedure Performed Yes -Type of Procedure Debridement -Clinical Debridement Subcutaneous -Tissue Removed Subcutaneous -Post Debridement (cm) - Length 2.5 -Post Debridement (cm) - Width 0.9 -Post Debridement (cm) - Depth 0.7 -Total Square (Post) (cm) 2.25 -Area of Debridement (cm) - Length 2.5 -Area of Debridement (cm) - Width 0.9 -Total Square (Area) (cm) 2.25 -Tunneling No -Undermining/Tunneling No -Circular Undermining No -Wound/Ulcer Outcome Not Healed -Ulcer Cleansing Rinsed/ Irrigated with Saline -Foul Odor after Cleansing No -Bioengineered Tissue No -Bleeding Controlled with Pressure -Offloading No -Treatment Response Procedure Tolerated Well -Debridement - Subq, 1st 20sq cm Yes #1 chin -Time 14:12 -Correct Patient Yes -Correct Side, Site, Position Yes -Correct Procedure Yes -Procedure Performed Yes -Type of Procedure Debridement -Clinical Debridement Subcutaneous -Tissue Removed Subcutaneous -Post Debridement (cm) - Length 1.8 -Post Debridement (cm) - Width 2.4 -Post Debridement (cm) - Depth 0.4 -Total Square (Post) (cm) 4.32 -Area of Debridement (cm) - Length 1.8 -Area of Debridement (cm) - Width 2.4 -Total Square (Area) (cm) 4.32 -Tunneling No -Undermining/Tunneling No -Circular Undermining No -Wound/Ulcer Outcome Not Healed -Ulcer Cleansing Rinsed/ Irrigated with Saline -Foul Odor after Cleansing No -Bioengineered Tissue No -Bleeding Controlled with Pressure -Offloading No -Treatment Response Procedure Tolerated Well -Debridement - Subq, 1st 20sq cm No [See Physician Procedure note for Specifics] Pain Scale: 0-10 Numeric [Pain] -Is Patient Pain Free? Yes WC - Nurse 3 - General Ulcer D/C NN Start: 05/13/20 10:04 Freq: Status: Active Protocol: Activity Type Activity Date Activity User E-Sign Co-Sign Detail Recorded Client Recorded Date Recorded By Document 05/27/20 14:14 ANDRES [id number] 05/27/20 14:15 ANDRES 05/27/20 14:14 Wound Care Nurse 3 [Wound Dressing] #2 neck -Ulcer Cleansing Rinsed/ Irrigated with Saline -Foul Odor after Cleansing No -Primary Dressing Applied Aquacel AG 2x2 -Primary Dressing Covered/Secured Dry Gauze, with Secured with Tape -Aquacel AG 2x2 1 #1 chin -Ulcer Cleansing Rinsed/ Irrigated with Saline -Foul Odor after Cleansing No -Primary Dressing Applied Aquacel AG 2x2 -Primary Dressing Covered/Secured Dry Gauze, with Secured with Tape -Aquacel AG 2x2 0 Pain Scale: 0-10 Numeric [Pain] -Is Patient Pain Free? Yes WC - Visit Discharge [Visit Discharge Information] -Discharge Condition Stable -Ambulatory Status Ambulatory -Transportation Private Auto -Medication Reconcilliation completed Yes & provided to patient/care provider -Clinical Summary of Care Provided Yes Musculoskeletal: No Tenderness to Palpation of Joints or Extremities Neurological: Cranial nerves II-XII grossly intact Psych/Mental Status: Normal Affect, Appropriate Debridement Note Post-Debridement Measurements/Treatment - Nurse 2 - General Ulcer CM Notes Start: 05/13/20 10:04 Freq: Status: Active Protocol: Activity Type Activity Date Activity User E-Sign Co-Sign Detail Recorded Client Recorded Date Recorded By Document 05/13/20 10:51 [id number] 05/13/20 10:57 Document 05/20/20 14:29 [id number] 05/20/20 14:34 Document 05/27/20 14:11 [id number] 05/27/20 14:14 05/13/20 05/20/20 05/27/20 10:51 14:29 14:11 Wound Center Nurse 2 #2 neck -Time 10:52 14:30 14:11 -Correct Patient Yes Yes Yes -Correct Side, Site, Position Yes Yes Yes -Correct Procedure Yes Yes Yes -Procedure Performed Yes Yes Yes -Type of Procedure Debridement Debridement Debridement -Clinical Debridement Subcutaneous Subcutaneous Subcutaneous -Tissue Removed Subcutaneous Subcutaneous Subcutaneous -Post Debridement (cm) - Length 3 2.4 2.5 -Post Debridement (cm) - Width 1.5 1.2 0.9 -Post Debridement (cm) - Depth 1 0.5 0.7 -Total Square (Post) (cm) 4.5 2.88 2.25 -Area of Debridement (cm) - Length 3 2.4 2.5 -Area of Debridement (cm) - Width 1.5 1.2 0.9 -Total Square (Area) (cm) 4.5 2.88 2.25 -Tunneling No No No -Undermining/Tunneling No No No -Circular Undermining No No No -Wound/Ulcer Outcome Not Healed Not Healed Not Healed -Ulcer Cleansing Rinsed/ Rinsed/ Irrigated with Irrigated with Saline Saline -Foul Odor after Cleansing No No -Bioengineered Tissue No No No -Bleeding Controlled with Pressure Pressure Pressure -Offloading No No No -Treatment Response Procedure Procedure Procedure Tolerated Well Tolerated Well Tolerated Well -Debridement - Subq, 1st 20sq cm Yes Yes Yes #1 chin -Time 10:52 14:31 14:12 -Correct Patient Yes Yes Yes -Correct Side, Site, Position Yes Yes Yes -Correct Procedure Yes Yes Yes -Procedure Performed Yes Yes Yes -Type of Procedure Debridement Debridement Debridement -Clinical Debridement Subcutaneous Subcutaneous Subcutaneous -Tissue Removed Subcutaneous Subcutaneous Subcutaneous -Post Debridement (cm) - Length 1.8 1.5 1.8 -Post Debridement (cm) - Width 2 2.7 2.4 -Post Debridement (cm) - Depth 0.8 0.6 0.4 -Total Square (Post) (cm) 3.6 4.05 4.32 -Area of Debridement (cm) - Length 1.8 1.5 1.8 -Area of Debridement (cm) - Width 2 2.7 2.4 -Total Square (Area) (cm) 3.6 4.05 4.32 -Tunneling No No No -Undermining/Tunneling No No No -Circular Undermining No No No -Wound/Ulcer Outcome Not Healed Not Healed Not Healed -Ulcer Cleansing Rinsed/ Rinsed/ Rinsed/ Irrigated with Irrigated with Irrigated with Saline Saline Saline -Foul Odor after Cleansing No No No -Bioengineered Tissue No No No -Bleeding Controlled with Pressure Pressure Pressure -Offloading No No No -Treatment Response Procedure Procedure Procedure Tolerated Well Tolerated Well Tolerated Well -Debridement - Subq, 1st 20sq cm No No No Pain Scale: 0-10 Numeric Is Patient Pain Free? Yes Yes - Nurse 3 - General Ulcer D/C NN Start: 05/13/20 10:04 Freq: Status: Active Protocol: Activity Type Activity Date Activity User E-Sign Co-Sign Detail Recorded Client Recorded Date Recorded By Document 05/13/20 11:06 DL [id number] 05/13/20 11:07 DL Document 05/20/20 14:35 [facility] [id number] 05/20/20 14:36 [facility] Document 05/27/20 14:14 [id number] 05/27/20 14:15 05/13/20 05/20/20 05/27/20 11:06 14:35 14:14 Wound Care Nurse 3 #2 neck -Ulcer Cleansing Rinsed/ Rinsed/ Rinsed/ Irrigated with Irrigated with Irrigated with Saline Saline Saline -Foul Odor after Cleansing No No No -Primary Dressing Applied Aquacel AG 4x4 [place] Aquacel AG 2x2 -Primary Dressing Covered/Secured with Dry Gauze, Dry Gauze, Dry Gauze, Secured with Secured with Secured with Tape Tape Tape -Aquacel AG 4x4 1 -Aquacel AG 2x2 1 -[place] 1 #1 chin -Ulcer Cleansing Rinsed/ Rinsed/ Rinsed/ Irrigated with Irrigated with Irrigated with Saline Saline Saline -Foul Odor after Cleansing No No No -Primary Dressing Applied [place] Aquacel AG 2x2 -Other Dressing aqaucel ag -Primary Dressing Covered/Secured with Dry Gauze, Dry Gauze, Dry Gauze, Secured with Secured with Secured with Tape Tape Tape -Aquacel AG 2x2 0 -[place]cel 0 Treatment Response Procedure Tolerated Well Pain Scale: 0-10 Numeric Is Patient Pain Free? Yes Yes Yes WC - Visit Discharge Discharge Condition Stable Stable Stable Ambulatory Status Ambulatory Ambulatory Ambulatory Transportation Private Auto Private Auto Private Auto Medication Reconcilliation completed & Yes provided to patient/care provider Clinical Summary of Care Provided Yes Facility Type Home Health Telephoned (if yes, spoke with:) Yes Wound debrided: chin wound Laterality: Left Type of Debridement: Excisional debridement Anesthesia Used: 5% Lidocaine Gel Depth: Down to and including healthy tissue, in the subcutaneous layer Percentage of wound debrided: 100 Instrument Used: 5mm curette Tissue Removed: Subcutaneous tissue and slough Severity: Fat Layer Exposed Amount of bleeding with debridement: Mild Bleeding Controlled with: Pressure, Compression and gauze Patient tolerated procedure well - Additional Wound Wound debrided: Anterior neck Type of Debridement: Excisional debridement Anesthesia Used: 5% Lidocaine Gel Depth: Down to and including healthy tissue, in the subcutaneous layer Percentage of wound debrided: 100 Instrument Used: 3mm curette Tissue Removed: Subcutaneous tissue and slough Severity: Fat Layer Exposed Amount of bleeding with debridement: Mild Bleeding Controlled with: Pressure Patient tolerated procedure: Patient tolerated procedure well Assessment/Plan Active Problems Open wound of neck with complication (Acute) upper anterior neck Open wound of chin (Acute) left chin History of methicillin resistant staphylococcus aureus (MRSA) (Chronic) Abscess of neck (Acute) upper anterior neck Abscess of chin (Acute) left chin Assessment: 1. Abscess left chin involving underlying muscle. 2. Abscess upper anterior neck involving underlying muscle. 3. Open surgical abscess wound left chin. 4. Open surgical abscess wound upper anterior neck. 5. MRSA. 6. s/p surgical preparation left chin with incision and drainage and excisional debridement abscess involving underlying muscle (7.5 cm2) and surigical preparation upper anterior neck with incision and drainage and excisional debridement abscess involving underlying muscle (6.25 cm2). Plan: Wound care - Daily Silver alginate dressing changes daily after washing with soap and water. Operative wound cultures showed MRSA. Continue Doxycycline. Prealbumin from 05/02/20 was 22.7. Encourage nutritional supplementation with protein to help the healing process. Keep head elevated. Renewed [place] (14 tabs). PDMP reviewed. Follow up one week. [id number]: [id number] Global Visit
--- NOTE | 2020-05-29 16:41 | WC ---
Patient called back requesting if pain med was ever called in. Mervat Donaldson [employer] was notified and a new prescription for pain med is being electronically sent in to [facility]. Patient was notified of this.
== END 2020-06-02 23:59 ==
LOC: WC 13:45
PROVIDERS: PCP Family Medicine; Visit Provider Nurse Practitioner Family
DX: L02.01 Cutaneous abscess of face (principal); L02.11 Cutaneous abscess of neck; S11.90XA Unspecified open wound of unspecified part of neck, initial encounter; S01.80XA Unspecified open wound of other part of head, initial encounter; A49.02 Methicillin resistant Staphylococcus aureus infection, unspecified site; E66.01 Morbid (severe) obesity due to excess calories; M47.816 Spondylosis without myelopathy or radiculopathy, lumbar region; I10 Essential (primary) hypertension; K21.9 Gastro-esophageal reflux disease without esophagitis; F32.9 Major depressive disorder, single episode, unspecified; G89.18 Other acute postprocedural pain; Z79.1 Long term (current) use of non-steroidal anti-inflammatories (NSAID); Z83.3 Family history of diabetes mellitus; Z90.49 Acquired absence of other specified parts of digestive tract; Z90.710 Acquired absence of both cervix and uterus
CPT/HCPCS: 11042; 99213; G0463

== ENCOUNTER 2020-07-01 13:00 | Outpatient (RCR) | payer MEDICAID, SELFPAY ==
[2020-06-03 00:36] VITALS: BP 126/71; PULSE 69; RESP 18; TEMP 37.1
[2020-06-03 13:08] VITALS: BP 152/66; PULSE 64; RESP 16; TEMP 36.2; BMI 40.3
--- NOTE | 2020-06-03 14:47 | PN.PCM_ITS ---
(1) Infection of wound due to methicillin resistant Staphylococcus aureus (MRSA) Status: Acute Code(s): A49.02 - Methicillin resistant Staphylococcus aureus infection, unspecified site (2) Open wound of neck with complication Status: Acute Code(s): S11.90XA - Unspecified open wound of unspecified part of neck, initial encounter Comment: upper anterior neck (3) Open wound of chin Status: Acute Code(s): S01.80XA - Unspecified open wound of other part of head, initial encounter Comment: left chin (4) Abscess of neck Status: Acute Code(s): L02.11 - Cutaneous abscess of neck Comment: upper anterior neck (5) Abscess of chin Status: Acute Code(s): L02.01 - Cutaneous abscess of face Comment: left chin Type of Wound Date of Service: 06/03/20 Chief Complaint: Open surgical MRSA wound of left chin and upper anterior neck. History of Wound: Surgery 05/01/20 - 1. Surgical preparation left chin with incision and drainage and excisional debridement abscess involving underlying muscle (7.5 cm2). 2. Surigical preparation upper anterior neck with incision and drainage and excisional debridement abscess involving underlying muscle (6.25 cm2). Operative culture postive for MRSA. She is being treated with Doxycycline. Wound care - Daily silver alginate dressing changes. Prealbumin 22.7 from 05/02/20. Encouraged protein intact to help improve wound healing. She denies fever, she states her appetite is good. Progress of Wound: Improved. - Physical Exam Vital Signs Temp Pulse Resp BP 97.1 F L 64 16 152/66 H 06/03/20 13:08 06/03/20 13:08 06/03/20 13:08 06/03/20 13:08 General: Alert, Oriented x3, Cooperative HEENT: Atraumatic Oral: Moist Mucosa Lungs: Normal air movement Cardiovascular: Regular rate Extremities: Capillary Refill Less than 3 Seconds Skin: Ulcer/ Wound - Left chin wound is pink, decreased depth except for at the 12 o'clock postion. Neck wound is pink and has decreased depth except at the left edge there is an increased depth. Wound Measurements and Assessment WC - Nurse 1 - General Ulcer Measurement Start: 06/03/20 13:07 Freq: Status: Active Protocol: Activity Type Activity Date Activity User E-Sign Co-Sign Detail Recorded Client Recorded Date Recorded By Document 06/03/20 13:08 [facility] [id number] 06/03/20 13:13 [facility] 06/03/20 13:08 Wound Center Nurse 1 [Ulcer Assessment] #2 neck -Current Size (cm) - Length 1.7 -Current Size (cm) - Width 0.8 -Current Size (cm) - Depth 0.4 -Total Square Cm 1.36 -Exudate Amt Small -Exudate Type Serosanguineous -Wound Margin Distinct, Outline Attached -Granulation Amt Medium (34-66%) -Slough/Fibrin Yes -Necrosis Amt Medium (34-66%) -Necrotic Tissue Type Adherent Slough -Texture (Alda-wound Skin Appearance) No Abnormality -Moisture (Alda-wound Skin Appearance No Abnormality ) -Temperature (Alda-wound Skin No Abnormality Appearance) (Pt Warm) -Tenderness on Palpation (Alda-wound No Skin Appearance) -Ulcer Cleansing Rinsed/ Irrigated with Saline -Foul Odor after Cleansing No -Anesthetic Used 5% Lidocaine Gel #1 chin -Current Size (cm) - Length 0.8 -Current Size (cm) - Width 1.5 -Current Size (cm) - Depth 0.4 -Total Square Cm 1.20 -Exudate Amt None Present -Exudate Type Serosanguineous -Wound Margin Distinct, Outline Attached -Granulation Amt Medium (34-66%) -Slough/Fibrin Yes -Necrosis Amt Medium (34-66%) -Necrotic Tissue Type Adherent Slough -Texture (Alda-wound Skin Appearance) No Abnormality -Moisture (Alda-wound Skin Appearance No Abnormality ) -Color (Alda-wound Skin Appearance) No Abnormality -Temperature (Alda-wound Skin No Abnormality Appearance) (Pt Warm) -Tenderness on Palpation (Alda-wound No Skin Appearance) -Ulcer Cleansing Rinsed/ Irrigated with Saline -Foul Odor after Cleansing No -Anesthetic Used 5% Lidocaine Gel WC - Nurse 2 - General Ulcer CM Notes Start: 06/03/20 13:07 Freq: Status: Active Protocol: Activity Type Activity Date Activity User E-Sign Co-Sign Detail Recorded Client Recorded Date Recorded By Document 06/03/20 13:29 [id number] 06/03/20 13:37 06/03/20 13:29 Wound Center Nurse 2 [Procedure/Treatment] #2 neck -Time 13:30 -Correct Patient Yes -Correct Side, Site, Position Yes -Correct Procedure Yes -Procedure Performed Yes -Type of Procedure Debridement -Clinical Debridement Subcutaneous -Tissue Removed Subcutaneous -Post Debridement (cm) - Length 1.8 -Post Debridement (cm) - Width 1 -Post Debridement (cm) - Depth 0.7 -Total Square (Post) (cm) 1.8 -Area of Debridement (cm) - Length 1.8 -Area of Debridement (cm) - Width 1 -Total Square (Area) (cm) 1.8 -Tunneling No -Undermining/Tunneling No -Circular Undermining No -Wound/Ulcer Outcome Not Healed -Ulcer Cleansing Rinsed/ Irrigated with Saline -Foul Odor after Cleansing No -Bioengineered Tissue No -Bleeding Controlled with Pressure -Offloading No -Treatment Response Procedure Tolerated Well -Debridement - Subq, 1st 20sq cm Yes #1 chin -Time 13:30 -Correct Patient Yes -Correct Side, Site, Position Yes -Correct Procedure Yes -Procedure Performed Yes -Type of Procedure Debridement -Clinical Debridement Subcutaneous -Tissue Removed Subcutaneous -Post Debridement (cm) - Length 0.8 -Post Debridement (cm) - Width 2 -Post Debridement (cm) - Depth 0.5 -Total Square (Post) (cm) 1.6 -Area of Debridement (cm) - Length 0.8 -Area of Debridement (cm) - Width 2 -Total Square (Area) (cm) 1.6 -Tunneling No -Undermining/Tunneling No -Circular Undermining No -Wound/Ulcer Outcome Not Healed -Ulcer Cleansing Rinsed/ Irrigated with Saline -Foul Odor after Cleansing No -Bioengineered Tissue No -Bleeding Controlled with Pressure -Offloading No -Treatment Response Procedure Tolerated Well -Debridement - Subq, 1st 20sq cm No [See Physician Procedure note for Specifics] Pain Scale: 0-10 Numeric [Pain] -Is Patient Pain Free? Yes WC - Nurse 3 - General Ulcer D/C NN Start: 06/03/20 13:07 Freq: Status: Active Protocol: Activity Type Activity Date Activity User E-Sign Co-Sign Detail Recorded Client Recorded Date Recorded By Document 06/03/20 13:48 [facility] [id number] 06/03/20 13:48 [facility] 06/03/20 13:48 Wound Care Nurse 3 [Wound Dressing] #2 neck -Ulcer Cleansing Rinsed/ Irrigated with Saline -Foul Odor after Cleansing No -Primary Dressing Applied Aquacel AG 2x2 -Primary Dressing Covered/Secured Dry Gauze, with Secured with Tape -Aquacel AG 2x2 1 #1 chin -Ulcer Cleansing Rinsed/ Irrigated with Saline -Foul Odor after Cleansing No -Primary Dressing Applied Aquacel AG 2x2 -Primary Dressing Covered/Secured Dry Gauze, with Secured with Tape -Aquacel AG 2x2 0 [Post Procedure Tolerated] -Treatment Response Procedure Tolerated Well Pain Scale: 0-10 Numeric [Pain] -Is Patient Pain Free? Yes WC - Visit Discharge [Visit Discharge Information] -Discharge Condition Stable -Ambulatory Status Ambulatory -Transportation Private Auto Musculoskeletal: No Tenderness to Palpation of Joints or Extremities Neurological: Cranial nerves II-XII grossly intact Psych/Mental Status: Normal Affect, Appropriate Debridement Note Post-Debridement Measurements/Treatment - Nurse 2 - General Ulcer CM Notes Start: 06/03/20 13:07 Freq: Status: Active Protocol: Activity Type Activity Date Activity User E-Sign Co-Sign Detail Recorded Client Recorded Date Recorded By Document 06/03/20 13:29 ANDRES [id number] 06/03/20 13:37 ANDRES 06/03/20 13:29 Wound Center Nurse 2 #2 neck -Time 13:30 -Correct Patient Yes -Correct Side, Site, Position Yes -Correct Procedure Yes -Procedure Performed Yes -Type of Procedure Debridement -Clinical Debridement Subcutaneous -Tissue Removed Subcutaneous -Post Debridement (cm) - Length 1.8 -Post Debridement (cm) - Width 1 -Post Debridement (cm) - Depth 0.7 -Total Square (Post) (cm) 1.8 -Area of Debridement (cm) - Length 1.8 -Area of Debridement (cm) - Width 1 -Total Square (Area) (cm) 1.8 -Tunneling No -Undermining/Tunneling No -Circular Undermining No -Wound/Ulcer Outcome Not Healed -Ulcer Cleansing Rinsed/ Irrigated with Saline -Foul Odor after Cleansing No -Bioengineered Tissue No -Bleeding Controlled with Pressure -Offloading No -Treatment Response Procedure Tolerated Well -Debridement - Subq, 1st 20sq cm Yes #1 chin -Time 13:30 -Correct Patient Yes -Correct Side, Site, Position Yes -Correct Procedure Yes -Procedure Performed Yes -Type of Procedure Debridement -Clinical Debridement Subcutaneous -Tissue Removed Subcutaneous -Post Debridement (cm) - Length 0.8 -Post Debridement (cm) - Width 2 -Post Debridement (cm) - Depth 0.5 -Total Square (Post) (cm) 1.6 -Area of Debridement (cm) - Length 0.8 -Area of Debridement (cm) - Width 2 -Total Square (Area) (cm) 1.6 -Tunneling No -Undermining/Tunneling No -Circular Undermining No -Wound/Ulcer Outcome Not Healed -Ulcer Cleansing Rinsed/ Irrigated with Saline -Foul Odor after Cleansing No -Bioengineered Tissue No -Bleeding Controlled with Pressure -Offloading No -Treatment Response Procedure Tolerated Well -Debridement - Subq, 1st 20sq cm No Pain Scale: 0-10 Numeric Is Patient Pain Free? Yes - Nurse 3 - General Ulcer D/C NN Start: 06/03/20 13:07 Freq: Status: Active Protocol: Activity Type Activity Date Activity User E-Sign Co-Sign Detail Recorded Client Recorded Date Recorded By Document 06/03/20 13:48 [facility] [id number] 06/03/20 13:48 [facility] 06/03/20 13:48 Wound Care Nurse 3 #2 neck -Ulcer Cleansing Rinsed/ Irrigated with Saline -Foul Odor after Cleansing No -Primary Dressing Applied Aquacel AG 2x2 -Primary Dressing Covered/Secured with Dry Gauze, Secured with Tape -Aquacel AG 2x2 1 #1 chin -Ulcer Cleansing Rinsed/ Irrigated with Saline -Foul Odor after Cleansing No -Primary Dressing Applied Aquacel AG 2x2 -Primary Dressing Covered/Secured with Dry Gauze, Secured with Tape -Aquacel AG 2x2 0 Treatment Response Procedure Tolerated Well Pain Scale: 0-10 Numeric Is Patient Pain Free? Yes - Visit Discharge Discharge Condition Stable Ambulatory Status Ambulatory Transportation Private Auto Wound debrided: chin wound Laterality: Left Type of Debridement: Excisional debridement Anesthesia Used: 5% Lidocaine Gel Depth: Down to and including healthy tissue, in the subcutaneous layer Percentage of wound debrided: 100 Instrument Used: 5mm curette Tissue Removed: Subcutaneous tissue and slough Severity: Fat Layer Exposed Amount of bleeding with debridement: Mild Bleeding Controlled with: Pressure Patient tolerated procedure well - Additional Wound Wound debrided: Neck wound Laterality: Left Type of Debridement: Excisional debridement Anesthesia Used: 5% Lidocaine Gel Depth: Down to and including healthy tissue, in the subcutaneous layer Percentage of wound debrided: 100 Instrument Used: 3mm curette Tissue Removed: Subcutaneous tissue and slough Severity: Fat Layer Exposed Amount of bleeding with debridement: Mild Bleeding Controlled with: Pressure Patient tolerated procedure: Patient tolerated procedure well Assessment/Plan Active Problems Infection of wound due to methicillin resistant Staphylococcus aureus (MRSA) (A cute) Open wound of neck with complication (Acute) upper anterior neck Open wound of chin (Acute) left chin Abscess of neck (Acute) upper anterior neck Abscess of chin (Acute) left chin Assessment: 1. Abscess left chin involving underlying muscle. 2. Abscess upper anterior neck involving underlying muscle. 3. Open surgical abscess wound left chin. 4. Open surgical abscess wound upper anterior neck. 5. MRSA. 6. s/p surgical preparation left chin with incision and drainage and excisional debridement abscess involving underlying muscle (7.5 cm2) and surig ical preparation upper anterior neck with incision and drainage and excisional debridement abscess involving underlying muscle (6.25 cm2). Plan: Wound care - Daily Silver alginate dressing changes daily after washing with soap and water. Instructed to place silver into the areas where there is increased depth. Operative wound cultures showed MRSA. Continue Doxycycline. Prealbumin from 05/02/20 was 22.7. Encourage nutritional supplementation with protein to help the healing process. Keep head elevated. Follow up one week. [id number]: [id number] Global Visit
[2020-06-10 13:11] VITALS: BP 149/62; PULSE 61; RESP 16; TEMP 36.2; BMI 40.3
--- NOTE | 2020-06-10 13:57 | PCM.WC.PN ---
(1) Open wound of chin Status: Acute Code(s): S01.80XA - Unspecified open wound of other part of head, initial encounter Comment: left chin (2) Open wound of neck with complication Status: Acute Code(s): S11.90XA - Unspecified open wound of unspecified part of neck, initial encounter Comment: upper anterior neck (3) Infection of wound due to methicillin resistant Staphylococcus aureus (MRSA) Status: Acute Code(s): A49.02 - Methicillin resistant Staphylococcus aureus infection, unspecified site (4) Abscess of neck Status: Acute Code(s): L02.11 - Cutaneous abscess of neck Comment: upper anterior neck (5) Abscess of chin Status: Acute Code(s): L02.01 - Cutaneous abscess of face Comment: left chin Type of Wound Date of Service: 06/10/20 Chief Complaint: Open surgical MRSA wound of left chin and upper anterior neck. History of Wound: Surgery 05/01/20 - 1. Surgical preparation left chin with incision and drainage and excisional debridement abscess involving underlying muscle (7.5 cm2). 2. Surigical preparation upper anterior neck with incision and drainage and excisional debridement abscess involving underlying muscle (6.25 cm2). Operative culture postive for MRSA. She is being treated with Doxycycline. Wound care -Stop silver dressing changes. Start collagen hydrogel covered with Adaptic daily. Prealbumin 22.7 from 05/02/20. Encouraged protein intact to help improve wound healing. She denies fever, she states her appetite is good. Progress of Wound: Improved. - Physical Exam Vital Signs Temp Pulse Resp BP 97.2 F L 61 16 149/62 H 06/10/20 13:11 06/10/20 13:11 06/10/20 13:11 06/10/20 13:11 General: Alert, Oriented x3, Cooperative HEENT: Atraumatic Oral: Moist Mucosa Lungs: Normal air movement Cardiovascular: Regular rate Extremities: Capillary Refill Less than 3 Seconds Skin: Ulcer/ Wound - Left chin wound is beefy pink with decreased depth. Left neck wound is pink with decreased depth. Wound Measurements and Assessment WC - Nurse 1 - General Ulcer Measurement Start: 06/03/20 13:07 Freq: Status: Active Protocol: Activity Type Activity Date Activity User E-Sign Co-Sign Detail Recorded Client Recorded Date Recorded By Document 06/10/20 13:11 [facility] [id number] 06/10/20 13:19 [facility] 06/10/20 13:11 Wound Center Nurse 1 [Ulcer Assessment] #2 neck -Combined with other wound No -Current Size (cm) - Length 1.3 -Current Size (cm) - Width 0.5 -Current Size (cm) - Depth 0.3 -Total Square Cm 0.65 -Photo Taken No -Epithelialization Medium 34-66% -Tunneling No -Undermining/Tunneling No -Circular Undermining No -Exudate Amt Small -Exudate Type Serosanguineous -Wound Margin Distinct, Outline Attached -Granulation Amt Small (1-33%) -Granulation Quality Red -Slough/Fibrin Yes -Necrosis Amt Large (67-100%) -Necrotic Tissue Type Eschar -Texture (Alda-wound Skin Appearance) Assessed, Scarring -Moisture (Alda-wound Skin Appearance Assessed ) -Color (Alda-wound Skin Appearance) Assessed -Temperature (Alda-wound Skin No Abnormality Appearance) (Pt Warm) -Tenderness on Palpation (Alda-wound No Skin Appearance) -Ulcer Cleansing Rinsed/ Irrigated with Saline -Foul Odor after Cleansing No -Anesthetic Used 5% Lidocaine Gel #1 chin -Combined with other wound No -Current Size (cm) - Length 0.5 -Current Size (cm) - Width 1.3 -Current Size (cm) - Depth 0.2 -Total Square Cm 0.65 -Photo Taken No -Epithelialization Medium 34-66% -Tunneling No -Undermining/Tunneling No -Circular Undermining No -Exudate Amt Small -Exudate Type Serosanguineous -Wound Margin Distinct, Outline Attached -Granulation Amt Small (1-33%) -Granulation Quality Red -Slough/Fibrin Yes -Necrosis Amt Large (67-100%) -Necrotic Tissue Type Eschar -Texture (Alda-wound Skin Appearance) Assessed, Scarring -Moisture (Alda-wound Skin Appearance Assessed ) -Color (Alda-wound Skin Appearance) Assessed -Temperature (Alda-wound Skin No Abnormality Appearance) (Pt Warm) -Tenderness on Palpation (Alda-wound No Skin Appearance) -Ulcer Cleansing Rinsed/ Irrigated with Saline -Foul Odor after Cleansing No -Anesthetic Used 5% Lidocaine Gel WC - Nurse 2 - General Ulcer CM Notes Start: 06/03/20 13:07 Freq: Status: Active Protocol: Activity Type Activity Date Activity User E-Sign Co-Sign Detail Recorded Client Recorded Date Recorded By Document 06/10/20 13:38 AND[facility] [id number] 06/10/20 13:42 ANDRES 06/10/20 13:38 Wound Center Nurse 2 [Procedure/Treatment] #2 neck -Time 13:38 -Correct Patient Yes -Correct Side, Site, Position Yes -Correct Procedure Yes -Procedure Performed Yes -Type of Procedure Debridement -Clinical Debridement Subcutaneous -Tissue Removed Subcutaneous -Post Debridement (cm) - Length 1.5 -Post Debridement (cm) - Width 0.5 -Post Debridement (cm) - Depth 0.4 -Total Square (Post) (cm) 0.75 -Area of Debridement (cm) - Length 1.5 -Area of Debridement (cm) - Width 0.5 -Total Square (Area) (cm) 0.75 -Tunneling No -Undermining/Tunneling No -Circular Undermining No -Wound/Ulcer Outcome Not Healed -Ulcer Cleansing Rinsed/ Irrigated with Saline -Foul Odor after Cleansing No -Bioengineered Tissue No -Bleeding Controlled with Pressure -Offloading No -Treatment Response Procedure Tolerated Well -Debridement - Subq, 1st 20sq cm Yes #1 chin -Time 13:39 -Correct Patient Yes -Correct Side, Site, Position Yes -Correct Procedure Yes -Procedure Performed Yes -Type of Procedure Debridement -Clinical Debridement Subcutaneous -Tissue Removed Subcutaneous -Post Debridement (cm) - Length 0.5 -Post Debridement (cm) - Width 1.6 -Post Debridement (cm) - Depth 0.4 -Total Square (Post) (cm) 0.80 -Area of Debridement (cm) - Length 0.5 -Area of Debridement (cm) - Width 1.6 -Total Square (Area) (cm) 0.80 -Tunneling No -Undermining/Tunneling No -Circular Undermining No -Wound/Ulcer Outcome Not Healed -Ulcer Cleansing Rinsed/ Irrigated with Saline -Foul Odor after Cleansing No -Bioengineered Tissue No -Bleeding Controlled with Pressure -Offloading No -Treatment Response Procedure Tolerated Well -Debridement - Subq, 1st 20sq cm No [See Physician Procedure note for Specifics] Pain Scale: 0-10 Numeric [Pain] -Is Patient Pain Free? Yes - Nurse 3 - General Ulcer D/C NN Start: 06/03/20 13:07 Freq: Status: Active Protocol: Activity Type Activity Date Activity User E-Sign Co-Sign Detail Recorded Client Recorded Date Recorded By Document 06/10/20 13:49 [facility]NE[facility] [id number] 06/10/20 13:50 DL 06/10/20 13:49 Wound Care Nurse 3 [Wound Dressing] #2 neck -Ulcer Cleansing Rinsed/ Irrigated with Saline -Foul Odor after Cleansing No -Primary Dressing Applied C Hydrogel ($) -Primary Dressing Covered/Secured Dry Gauze, with Secured with Tape #1 chin -Ulcer Cleansing Rinsed/ Irrigated with Saline -Foul Odor after Cleansing No -Primary Dressing Applied C Hydrogel ($) -Primary Dressing Covered/Secured Dry Gauze, with Secured with Tape [Post Procedure Tolerated] -Treatment Response Procedure Tolerated Well Pain Scale: 0-10 Numeric [Pain] -Is Patient Pain Free? Yes WC - Visit Discharge [Visit Discharge Information] -Discharge Condition Stable -Ambulatory Status Ambulatory -Transportation Private Auto Musculoskeletal: No Tenderness to Palpation of Joints or Extremities Neurological: Cranial nerves II-XII grossly intact Psych/Mental Status: Normal Affect, Appropriate Debridement Note Post-Debridement Measurements/Treatment - Nurse 2 - General Ulcer CM Notes Start: 06/03/20 13:07 Freq: Status: Active Protocol: Activity Type Activity Date Activity User E-Sign Co-Sign Detail Recorded Client Recorded Date Recorded By Document 06/03/20 13:29 [id number] 06/03/20 13:37 Document 06/10/20 13:38 [id number] 06/10/20 13:42 06/03/20 06/10/20 13:29 13:38 Wound Center Nurse 2 #2 neck -Time 13:30 13:38 -Correct Patient Yes Yes -Correct Side, Site, Position Yes Yes -Correct Procedure Yes Yes -Procedure Performed Yes Yes -Type of Procedure Debridement Debridement -Clinical Debridement Subcutaneous Subcutaneous -Tissue Removed Subcutaneous Subcutaneous -Post Debridement (cm) - Length 1.8 1.5 -Post Debridement (cm) - Width 1 0.5 -Post Debridement (cm) - Depth 0.7 0.4 -Total Square (Post) (cm) 1.8 0.75 -Area of Debridement (cm) - Length 1.8 1.5 -Area of Debridement (cm) - Width 1 0.5 -Total Square (Area) (cm) 1.8 0.75 -Tunneling No No -Undermining/Tunneling No No -Circular Undermining No No -Wound/Ulcer Outcome Not Healed Not Healed -Ulcer Cleansing Rinsed/ Rinsed/ Irrigated with Irrigated with Saline Saline -Foul Odor after Cleansing No No -Bioengineered Tissue No No -Bleeding Controlled with Pressure Pressure -Offloading No No -Treatment Response Procedure Procedure Tolerated Well Tolerated Well -Debridement - Subq, 1st 20sq cm Yes Yes #1 chin -Time 13:30 13:39 -Correct Patient Yes Yes -Correct Side, Site, Position Yes Yes -Correct Procedure Yes Yes -Procedure Performed Yes Yes -Type of Procedure Debridement Debridement -Clinical Debridement Subcutaneous Subcutaneous -Tissue Removed Subcutaneous Subcutaneous -Post Debridement (cm) - Length 0.8 0.5 -Post Debridement (cm) - Width 2 1.6 -Post Debridement (cm) - Depth 0.5 0.4 -Total Square (Post) (cm) 1.6 0.80 -Area of Debridement (cm) - Length 0.8 0.5 -Area of Debridement (cm) - Width 2 1.6 -Total Square (Area) (cm) 1.6 0.80 -Tunneling No No -Undermining/Tunneling No No -Circular Undermining No No -Wound/Ulcer Outcome Not Healed Not Healed -Ulcer Cleansing Rinsed/ Rinsed/ Irrigated with Irrigated with Saline Saline -Foul Odor after Cleansing No No -Bioengineered Tissue No No -Bleeding Controlled with Pressure Pressure -Offloading No No -Treatment Response Procedure Procedure Tolerated Well Tolerated Well -Debridement - Subq, 1st 20sq cm No No Pain Scale: 0-10 Numeric Is Patient Pain Free? Yes Yes - Nurse 3 - General Ulcer D/C NN Start: 06/03/20 13:07 Freq: Status: Active Protocol: Activity Type Activity Date Activity User E-Sign Co-Sign Detail Recorded Client Recorded Date Recorded By Document 06/03/20 13:48 [facility] [id number] 06/03/20 13:48 BM Document 06/10/20 13:49 DL [id number] 06/10/20 13:50 DL 06/03/20 06/10/20 13:48 13:49 Wound Care Nurse 3 #2 neck -Ulcer Cleansing Rinsed/ Rinsed/ Irrigated with Irrigated with Saline Saline -Foul Odor after Cleansing No No -Primary Dressing Applied Aquacel AG 2x2 C Hydrogel ($) -Primary Dressing Covered/Secured with Dry Gauze, Dry Gauze, Secured with Secured with Tape Tape -Aquacel AG 2x2 1 #1 chin -Ulcer Cleansing Rinsed/ Rinsed/ Irrigated with Irrigated with Saline Saline -Foul Odor after Cleansing No No -Primary Dressing Applied Aquacel AG 2x2 C Hydrogel ($) -Primary Dressing Covered/Secured with Dry Gauze, Dry Gauze, Secured with Secured with Tape Tape -Aquacel AG 2x2 0 Treatment Response Procedure Procedure Tolerated Well Tolerated Well Pain Scale: 0-10 Numeric Is Patient Pain Free? Yes Yes WC - Visit Discharge Discharge Condition Stable Stable Ambulatory Status Ambulatory Ambulatory Transportation Private Auto Private Auto Wound debrided: Chin wound Laterality: Left Type of Debridement: Excisional debridement Anesthesia Used: 5% Lidocaine Gel Depth: Down to and including healthy tissue, in the subcutaneous layer Percentage of wound debrided: 100 Instrument Used: 3mm curette Tissue Removed: Subcutaneous tissue and slough Severity: Fat Layer Exposed Amount of bleeding with debridement: Mild Bleeding Controlled with: Pressure Patient tolerated procedure well - Additional Wound Wound debrided: Neck wound Laterality: Left Type of Debridement: Excisional debridement Anesthesia Used: 5% Lidocaine Gel Depth: Down to and including healthy tissue, in the subcutaneous layer Percentage of wound debrided: 100 Instrument Used: 3mm curette Tissue Removed: Subcutaneous tissue and slough Severity: Fat Layer Exposed Amount of bleeding with debridement: Mild Bleeding Controlled with: Pressure, Compression and gauze Patient tolerated procedure: Patient tolerated procedure well Assessment/Plan Active Problems Infection of wound due to methicillin resistant Staphylococcus aureus (MRSA) (Acute) Open wound of neck with complication (Acute) upper anterior neck Open wound of chin (Acute) left chin Abscess of neck (Acute) upper anterior neck Abscess of chin (Acute) left chin Assessment: 1. Abscess left chin involving underlying muscle. 2. Abscess upper anterior neck involving underlying muscle. 3. Open surgical abscess wound left chin. 4. Open surgical abscess wound upper anterior neck. 5. MRSA. 6. s/p surgical preparation left chin with incision and drainage and excisional debridement abscess involving underlying muscle (7.5 cm2) and surigical preparation upper anterior neck with incision and drainage and excisional debridement abscess involving underlying muscle (6.25 cm2). Plan: Wound care - Stop Silver alginate dressing changes and start collagen hydrogel covered by Adaptic daily after washing with soap and water. Operative wound cultures showed MRSA. Continue Doxycycline. Prealbumin from 05/02/20 was 22.7. Encourage nutritional supplementation with protein to help the healing process. Keep head elevated. Renewed [place] (14 tabs). PDMP reviewed. Follow up one week. [id number]: [id number] Global Visit
[2020-06-17 13:24] VITALS: BP 146/92; PULSE 60; RESP 18; TEMP 36.1; BMI 40.3
[2020-06-17 13:59] VITALS: BP 146/90
--- NOTE | 2020-06-17 14:46 | PCM.WC.PN ---
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 Code(s): L98.492 - Non-pressure chronic ulcer of skin of other sites with fat layer exposed (3) Infection of wound due to methicillin resistant Staphylococcus aureus (MRSA) Status: Acute Code(s): A49.02 - Methicillin resistant Staphylococcus aureus infection, unspecified site (4) Abscess of neck Status: Acute Code(s): L02.11 - Cutaneous abscess of neck Comment: upper anterior neck (5) Abscess of chin Status: Acute Code(s): L02.01 - Cutaneous abscess of face Comment: left chin Type of Wound Date of Service: 06/17/20 Chief Complaint: Open surgical MRSA wound of left chin and upper anterior neck. History of Wound: Surgery 05/01/20 - 1. Surgical preparation left chin with incision and drainage and excisional debridement abscess involving underlying muscle (7.5 cm2). 2. Surigical preparation upper anterior neck with incision and drainage and excisional debridement abscess involving underlying muscle (6.25 cm2). Operative culture postive for MRSA. She is being treated with Doxycycline. Wound care - Collagen hydrogel covered with Adaptic daily covered by gauze. Prealbumin 22.7 from 05/02/20. Encouraged protein intact to help improve wound healing. She denies fever, she states her appetite is good. Progress of Wound: Improved. - Physical Exam Vital Signs Temp Pulse Resp BP 97 F L 60 18 146/90 H 06/17/20 13:24 06/17/20 13:24 06/17/20 13:24 06/17/20 13:59 General: Alert, Oriented x3, Cooperative HEENT: Atraumatic Oral: Moist Mucosa Lungs: Normal air movement Cardiovascular: Regular rate Extremities: No edema, Capillary Refill Less than 3 Seconds Skin: Ulcer/ Wound - Left chin ulcer and left neck ulcer are pink and decreasing in size. Wound Measurements and Assessment WC - Nurse 1 - General Ulcer Measurement Start: 06/03/20 13:07 Freq: Status: Active Protocol: Activity Type Activity Date Activity User E-Sign Co-Sign Detail Recorded Client Recorded Date Recorded By Document 06/17/20 13:24 RB [id number] 06/17/20 13:26 RB 06/17/20 13:24 Wound Center Nurse 1 [Ulcer Assessment] #2 neck -Combined with other wound No -Current Size (cm) - Length 0.1 -Current Size (cm) - Width 0.1 -Current Size (cm) - Depth 0.1 -Total Square Cm 0.01 -Tunneling No -Undermining/Tunneling No -Circular Undermining No -Exudate Amt Small -Exudate Type Serosanguineous -Wound Margin Flat & Intact -Granulation Amt Small (1-33%) -Granulation Quality [place] -Slough/Fibrin Yes -Necrosis Amt Large (67-100%) -Necrotic Tissue Type Adherent Slough -Structure Exposed N/A -Texture (Alda-wound Skin Appearance) Assessed, Scarring -Moisture (Alda-wound Skin Appearance Assessed ) -Color (Alda-wound Skin Appearance) Assessed -Temperature (Alda-wound Skin No Abnormality Appearance) (Pt Warm) -Tenderness on Palpation (Alda-wound No Skin Appearance) -Ulcer Cleansing Wound Cleanser -Foul Odor after Cleansing No -Anesthetic Used 5% Lidocaine Gel #1 chin -Combined with other wound No -Current Size (cm) - Length 0.4 -Current Size (cm) - Width 0.8 -Current Size (cm) - Depth 0.1 -Total Square Cm 0.32 -Tunneling No -Undermining/Tunneling No -Circular Undermining No -Exudate Amt None Present -Wound Margin Flat & Intact -Granulation Amt Medium (34-66%) -Granulation Quality [place] -Slough/Fibrin Yes -Necrosis Amt None Present (0 %) -Structure Exposed N/A -Texture (Alda-wound Skin Appearance) Assessed, Scarring -Moisture (Alda-wound Skin Appearance Assessed ) -Color (Alda-wound Skin Appearance) Assessed -Temperature (Alda-wound Skin No Abnormality Appearance) (Pt Warm) -Tenderness on Palpation (Alda-wound No Skin Appearance) -Ulcer Cleansing Wound Cleanser -Foul Odor after Cleansing No -Anesthetic Used 5% Lidocaine Gel WC - Nurse 2 - General Ulcer CM Notes Start: 06/03/20 13:07 Freq: Status: Active Protocol: Activity Type Activity Date Activity User E-Sign Co-Sign Detail Recorded Client Recorded Date Recorded By Document 06/17/20 13:41 ANDRES [id number] 06/17/20 13:44 JF 06/17/20 13:41 Wound Center Nurse 2 [Procedure/Treatment] #2 neck -Time 13:42 -Correct Patient Yes -Correct Side, Site, Position Yes -Correct Procedure Yes -Procedure Performed Yes -Type of Procedure Debridement -Clinical Debridement Subcutaneous -Tissue Removed Subcutaneous -Post Debridement (cm) - Length 0.6 -Post Debridement (cm) - Width 0.3 -Post Debridement (cm) - Depth 0.2 -Total Square (Post) (cm) 0.18 -Area of Debridement (cm) - Length 0.6 -Area of Debridement (cm) - Width 0.3 -Total Square (Area) (cm) 0.18 -Tunneling No -Undermining/Tunneling No -Circular Undermining No -Wound/Ulcer Outcome Not Healed -Ulcer Cleansing Rinsed/ Irrigated with Saline -Foul Odor after Cleansing No -Bioengineered Tissue No -Bleeding Controlled with Pressure -Offloading No -Treatment Response Procedure Tolerated Well -Debridement - Subq, 1st 20sq cm Yes #1 chin -Time 13:41 -Correct Patient Yes -Correct Side, Site, Position Yes -Correct Procedure Yes -Procedure Performed Yes -Type of Procedure Debridement -Clinical Debridement Subcutaneous -Tissue Removed Subcutaneous -Post Debridement (cm) - Length 0.4 -Post Debridement (cm) - Width 1 -Post Debridement (cm) - Depth 0.1 -Total Square (Post) (cm) 0.4 -Area of Debridement (cm) - Length 0.4 -Area of Debridement (cm) - Width 1 -Total Square (Area) (cm) 0.4 -Tunneling No -Undermining/Tunneling No -Circular Undermining No -Wound/Ulcer Outcome Not Healed -Ulcer Cleansing Rinsed/ Irrigated with Saline -Foul Odor after Cleansing No -Bioengineered Tissue No -Bleeding Controlled with Pressure -Offloading No -Treatment Response Procedure Tolerated Well -Debridement - Subq, 1st 20sq cm No [See Physician Procedure note for Specifics] Pain Scale: 0-10 Numeric [Pain] -Is Patient Pain Free? Yes WC - Nurse 3 - General Ulcer D/C NN Start: 06/03/20 13:07 Freq: Status: Active Protocol: Activity Type Activity Date Activity User E-Sign Co-Sign Detail Recorded Client Recorded Date Recorded By Document 06/17/20 13:59 RB [email or web address] 06/17/20 14:00 RB 06/17/20 13:59 Wound Care Nurse 3 [Wound Dressing] #2 neck -Ulcer Cleansing Rinsed/ Irrigated with Saline -Primary Dressing Applied C Hydrogel ($) -Primary Dressing Covered/Secured Dry Gauze, with Secured with Tape #1 chin -Other Dressing HYDROGEL -Primary Dressing Covered/Secured Dry Gauze, with Secured with Tape [Post Procedure Tolerated] -Treatment Response Procedure Tolerated Well Vital Signs [Blood Pressure] -Blood Pressure (90/60-120/80) 146/90 H -Blood Pressure Mean (mm Hg) 108 -Source Monitor -Position Semi-Fowlers -Blood Pressure Location Left Arm Pain Scale: 0-10 Numeric [Pain] -Is Patient Pain Free? Yes - Visit Discharge [Visit Discharge Information] -Discharge Condition Stable -Ambulatory Status Ambulatory -Transportation Private Auto -Medication Reconcilliation completed No & provided to patient/care provider -Clinical Summary of Care Provided Yes Musculoskeletal: No Tenderness to Palpation of Joints or Extremities Neurological: Cranial nerves II-XII grossly intact Psych/Mental Status: Normal Affect, Appropriate Debridement Note Post-Debridement Measurements/Treatment - Nurse 2 - General Ulcer CM Notes Start: 06/03/20 13:07 Freq: Status: Active Protocol: Activity Type Activity Date Activity User E-Sign Co-Sign Detail Recorded Client Recorded Date Recorded By Document 06/03/20 13:29 [id number] 06/03/20 13:37 Document 06/10/20 13:38 [id number] 06/10/20 13:42 Document 06/17/20 13:41 [id number] 06/17/20 13:44 06/03/20 06/10/20 06/17/20 13:29 13:38 13:41 Wound Center Nurse 2 #2 neck -Time 13:30 13:38 13:42 -Correct Patient Yes Yes Yes -Correct Side, Site, Position Yes Yes Yes -Correct Procedure Yes Yes Yes -Procedure Performed Yes Yes Yes -Type of Procedure Debridement Debridement Debridement -Clinical Debridement Subcutaneous Subcutaneous Subcutaneous -Tissue Removed Subcutaneous Subcutaneous Subcutaneous -Post Debridement (cm) - Length 1.8 1.5 0.6 -Post Debridement (cm) - Width 1 0.5 0.3 -Post Debridement (cm) - Depth 0.7 0.4 0.2 -Total Square (Post) (cm) 1.8 0.75 0.18 -Area of Debridement (cm) - Length 1.8 1.5 0.6 -Area of Debridement (cm) - Width 1 0.5 0.3 -Total Square (Area) (cm) 1.8 0.75 0.18 -Tunneling No No No -Undermining/Tunneling No No No -Circular Undermining No No No -Wound/Ulcer Outcome Not Healed Not Healed Not Healed -Ulcer Cleansing Rinsed/ Rinsed/ Rinsed/ Irrigated with Irrigated with Irrigated with Saline Saline Saline -Foul Odor after Cleansing No No No -Bioengineered Tissue No No No -Bleeding Controlled with Pressure Pressure Pressure -Offloading No No No -Treatment Response Procedure Procedure Procedure Tolerated Well Tolerated Well Tolerated Well -Debridement - Subq, 1st 20sq cm Yes Yes Yes #1 chin -Time 13:30 13:39 13:41 -Correct Patient Yes Yes Yes -Correct Side, Site, Position Yes Yes Yes -Correct Procedure Yes Yes Yes -Procedure Performed Yes Yes Yes -Type of Procedure Debridement Debridement Debridement -Clinical Debridement Subcutaneous Subcutaneous Subcutaneous -Tissue Removed Subcutaneous Subcutaneous Subcutaneous -Post Debridement (cm) - Length 0.8 0.5 0.4 -Post Debridement (cm) - Width 2 1.6 1 -Post Debridement (cm) - Depth 0.5 0.4 0.1 -Total Square (Post) (cm) 1.6 0.80 0.4 -Area of Debridement (cm) - Length 0.8 0.5 0.4 -Area of Debridement (cm) - Width 2 1.6 1 -Total Square (Area) (cm) 1.6 0.80 0.4 -Tunneling No No No -Undermining/Tunneling No No No -Circular Undermining No No No -Wound/Ulcer Outcome Not Healed Not Healed Not Healed -Ulcer Cleansing Rinsed/ Rinsed/ Rinsed/ Irrigated with Irrigated with Irrigated with Saline Saline Saline -Foul Odor after Cleansing No No No -Bioengineered Tissue No No No -Bleeding Controlled with Pressure Pressure Pressure -Offloading No No No -Treatment Response Procedure Procedure Procedure Tolerated Well Tolerated Well Tolerated Well -Debridement - Subq, 1st 20sq cm No No No Pain Scale: 0-10 Numeric Is Patient Pain Free? Yes Yes Yes - Nurse 3 - General Ulcer D/C NN Start: 06/03/20 13:07 Freq: Status: Active Protocol: Activity Type Activity Date Activity User E-Sign Co-Sign Detail Recorded Client Recorded Date Recorded By Document 06/03/20 13:48 [facility] [id number] 06/03/20 13:48 BM Document 06/10/20 13:49 DL [id number] 06/10/20 13:50 DL Document 06/17/20 13:59 RB [id number] 06/17/20 14:00 RB 06/03/20 06/10/20 06/17/20 13:48 13:49 13:59 Wound Care Nurse 3 #2 neck -Ulcer Cleansing Rinsed/ Rinsed/ Rinsed/ Irrigated with Irrigated with Irrigated with Saline Saline Saline -Foul Odor after Cleansing No No -Primary Dressing Applied Aquacel AG 2x2 C Hydrogel ($) C Hydrogel ($) -Primary Dressing Covered/Secured with Dry Gauze, Dry Gauze, Dry Gauze, Secured with Secured with Secured with Tape Tape Tape -Aquacel AG 2x2 1 #1 chin -Ulcer Cleansing Rinsed/ Rinsed/ Irrigated with Irrigated with Saline Saline -Foul Odor after Cleansing No No -Primary Dressing Applied Aquacel AG 2x2 C Hydrogel ($) -Other Dressing HYDROGEL -Primary Dressing Covered/Secured with Dry Gauze, Dry Gauze, Dry Gauze, Secured with Secured with Secured with Tape Tape Tape -Aquacel AG 2x2 0 Treatment Response Procedure Procedure Procedure Tolerated Well Tolerated Well Tolerated Well Vital Signs Blood Pressure (90/60-120/80) 146/90 H Blood Pressure Mean (mm Hg) 108 Source Monitor Position Semi-Fowlers Blood Pressure Location Left Arm Pain Scale: 0-10 Numeric Is Patient Pain Free? Yes Yes Yes WC - Visit Discharge Discharge Condition Stable Stable Stable Ambulatory Status Ambulatory Ambulatory Ambulatory Transportation Private Auto Private Auto Private Auto Medication Reconcilliation completed & No provided to patient/care provider Clinical Summary of Care Provided Yes Wound debrided: chin ulcer Laterality: Left Type of Debridement: Excisional debridement Anesthesia Used: 5% Lidocaine Gel Depth: Down to and including healthy tissue, in the subcutaneous layer Percentage of wound debrided: 100 Instrument Used: 3mm curette Tissue Removed: Subcutaneous tissue and slough Severity: Fat Layer Exposed Amount of bleeding with debridement: Mild Bleeding Controlled with: Pressure Patient tolerated procedure well - Additional Wound Wound debrided: Neck ulcer Laterality: Left Type of Debridement: Excisional debridement Anesthesia Used: 5% Lidocaine Gel Depth: Down to and including healthy tissue, in the subcutaneous layer Percentage of wound debrided: 100 Instrument Used: 3mm curette Tissue Removed: Subcutaneous tissue and slough Severity: Fat Layer Exposed Amount of bleeding with debridement: Mild Bleeding Controlled with: Pressure Patient tolerated procedure: Patient tolerated procedure well Assessment/Plan Active Problems Infection of wound due to methicillin resistant Staphylococcus aureus (MRSA) (Acute) Open wound of neck with complication (Acute) upper anterior neck Open wound of chin (Acute) left chin Abscess of neck (Acute) upper anterior neck Abscess of chin (Acute) left chin Assessment: 1. Abscess left chin involving underlying muscle. 2. Abscess upper anterior neck involving underlying muscle. 3. Open surgical abscess wound left chin. 4. Open surgical abscess wound upper anterior neck. 5. MRSA. 6. s/p surgical preparation left chin with incision and drainage and excisional debridement abscess involving underlying muscle (7.5 cm2) and surigical preparation upper anterior neck with incision and drainage and excisional debridement abscess involving underlying muscle (6.25 cm2). Plan: Wound care - Collagen hydrogel covered by Adaptic daily after washing with soap and water. Operative wound cultures showed MRSA. Continue Doxycycline. Prealbumin from 05/02/20 was 22.7. Encourage nutritional supplementation with protein to help the healing process. Keep head elevated. Follow up one week. [id number]: [id number] Global Visit
[2020-06-24 13:17] VITALS: BP 145/80; PULSE 69; RESP 18; TEMP 36.6; BMI 40.3
--- NOTE | 2020-06-24 15:40 | PCM.WC.PN ---
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 Code(s): L98.492 - Non-pressure chronic ulcer of skin of other sites with fat layer exposed (3) Infection of wound due to methicillin resistant Staphylococcus aureus (MRSA) Status: Acute Code(s): A49.02 - Methicillin resistant Staphylococcus aureus infection, unspecified site (4) Abscess of neck Status: Acute Code(s): L02.11 - Cutaneous abscess of neck Comment: upper anterior neck (5) Abscess of chin Status: Acute Code(s): L02.01 - Cutaneous abscess of face Comment: left chin Type of Wound Date of Service: 06/24/20 Chief Complaint: Open surgical MRSA wound of left chin and upper anterior neck. History of Wound: Surgery 05/01/20 - 1. Surgical preparation left chin with incision and drainage and excisional debridement abscess involving underlying muscle (7.5 cm2). 2. Surigical preparation upper anterior neck with incision and drainage and excisional debridement abscess involving underlying muscle (6.25 cm2). Operative culture postive for MRSA. She is being treated with Doxycycline. Wound care - Collagen hydrogel covered with Adaptic daily covered by gauze. Prealbumin 22.7 from 05/02/20. Encouraged protein intact to help improve wound healing. She denies fever, she states her appetite is good. Progress of Wound: Improved. - Physical Exam Vital Signs Temp Pulse Resp BP 97.9 F 69 18 145/80 H 06/24/20 13:17 06/24/20 13:17 06/24/20 13:17 06/24/20 13:17 General: Alert, Oriented x3, Cooperative HEENT: Atraumatic Oral: Moist Mucosa Lungs: Normal air movement Cardiovascular: Regular rate Extremities: No edema, Capillary Refill Less than 3 Seconds Skin: Ulcer/ Wound - Left chin and left neck ulcers are improving. They are almost healed. Wound Measurements and Assessment WC - Nurse 1 - General Ulcer Measurement Start: 06/03/20 13:07 Freq: Status: Active Protocol: Activity Type Activity Date Activity User E-Sign Co-Sign Detail Recorded Client Recorded Date Recorded By Document 06/24/20 13:17 DL [id number] 06/24/20 13:22 DL 06/24/20 13:17 Wound Center Nurse 1 [Ulcer Assessment] #2 neck -Current Size (cm) - Length 0.1 -Current Size (cm) - Width 0.1 -Current Size (cm) - Depth 1 -Total Square Cm 0.01 -Photo Taken No -Exudate Amt None Present -Wound Margin Flat & Intact -Granulation Amt Large (67-100%) -Granulation Quality [place] -Necrosis Amt Small (1-33%) -Necrotic Tissue Type Adherent Slough -Structure Exposed N/A -Texture (Alda-wound Skin Appearance) Scarring -Moisture (Alda-wound Skin Appearance No Abnormality ) -Color (Alda-wound Skin Appearance) No Abnormality -Temperature (Alda-wound Skin No Abnormality Appearance) (Pt Warm) -Tenderness on Palpation (Alda-wound No Skin Appearance) -Ulcer Cleansing Rinsed/ Irrigated with Saline -Foul Odor after Cleansing No -Anesthetic Used 5% Lidocaine Gel #1 chin -Current Size (cm) - Length 0.2 -Current Size (cm) - Width 0.2 -Current Size (cm) - Depth 0.1 -Total Square Cm 0.04 -Exudate Amt None Present -Granulation Amt Small (1-33%) -Granulation Quality [place] -Necrosis Amt None Present (0 %) -Necrotic Tissue Type Adherent Slough -Structure Exposed N/A -Texture (Alda-wound Skin Appearance) Scarring -Moisture (Alda-wound Skin Appearance No Abnormality ) -Color (Alda-wound Skin Appearance) No Abnormality -Temperature (Alda-wound Skin No Abnormality Appearance) (Pt Warm) -Tenderness on Palpation (Alda-wound No Skin Appearance) -Ulcer Cleansing Rinsed/ Irrigated with Saline -Foul Odor after Cleansing No -Anesthetic Used 4% Lidocaine Solution WC - Nurse 2 - General Ulcer CM Notes Start: 06/03/20 13:07 Freq: Status: Active Protocol: Activity Type Activity Date Activity User E-Sign Co-Sign Detail Recorded Client Recorded Date Recorded By Document 06/24/20 13:35 ANDRES [id number] 06/24/20 13:37 ANDRES 06/24/20 13:35 Wound Center Nurse 2 [Procedure/Treatment] #2 neck -Time 13:36 -Correct Patient Yes -Correct Side, Site, Position Yes -Correct Procedure Yes -Procedure Performed Yes -Type of Procedure Debridement -Clinical Debridement Subcutaneous -Tissue Removed Subcutaneous -Post Debridement (cm) - Length 0.5 -Post Debridement (cm) - Width 0.2 -Post Debridement (cm) - Depth 0.1 -Total Square (Post) (cm) 0.10 -Area of Debridement (cm) - Length 0.5 -Area of Debridement (cm) - Width 0.2 -Total Square (Area) (cm) 0.10 -Tunneling No -Undermining/Tunneling No -Circular Undermining No -Wound/Ulcer Outcome Not Healed -Ulcer Cleansing Rinsed/ Irrigated with Saline -Foul Odor after Cleansing No -Bioengineered Tissue No -Bleeding Controlled with Pressure -Offloading No -Treatment Response Procedure Tolerated Well -Debridement - Subq, 1st 20sq cm Yes #1 chin -Time 13:35 -Correct Patient Yes -Correct Side, Site, Position Yes -Correct Procedure Yes -Procedure Performed Yes -Type of Procedure Debridement -Clinical Debridement Subcutaneous -Tissue Removed Subcutaneous -Post Debridement (cm) - Length 0.3 -Post Debridement (cm) - Width 0.3 -Post Debridement (cm) - Depth 0.1 -Total Square (Post) (cm) 0.09 -Area of Debridement (cm) - Length 0.3 -Area of Debridement (cm) - Width 0.3 -Total Square (Area) (cm) 0.09 -Tunneling No -Undermining/Tunneling No -Circular Undermining No -Wound/Ulcer Outcome Not Healed -Ulcer Cleansing Rinsed/ Irrigated with Saline -Foul Odor after Cleansing No -Bioengineered Tissue No -Bleeding Controlled with Pressure -Offloading No -Treatment Response Procedure Tolerated Well -Debridement - Subq, 1st 20sq cm No [See Physician Procedure note for Specifics] Pain Scale: 0-10 Numeric [Pain] -Is Patient Pain Free? Yes WC - Nurse 3 - General Ulcer D/C NN Start: 06/03/20 13:07 Freq: Status: Active Protocol: Activity Type Activity Date Activity User E-Sign Co-Sign Detail Recorded Client Recorded Date Recorded By Document 06/24/20 13:43 [facility] [id number] 06/24/20 13:43 [facility] 06/24/20 13:43 Wound Care Nurse 3 [Wound Dressing] #2 neck -Ulcer Cleansing Rinsed/ Irrigated with Saline -Foul Odor after Cleansing No -Primary Dressing Applied Other -Other Dressing hydrogel -Primary Dressing Covered/Secured Dry Gauze, with Secured with Tape -Other Covering drsgs per d rashi body straightener #1 chin -Ulcer Cleansing Rinsed/ Irrigated with Saline -Foul Odor after Cleansing No -Primary Dressing Applied Other -Other Dressing hydrogel -Primary Dressing Covered/Secured Dry Gauze, with Secured with Tape -Other Covering drsgs per d rashi body straightener [Post Procedure Tolerated] -Treatment Response Procedure Tolerated Well Pain Scale: 0-10 Numeric [Pain] -Is Patient Pain Free? Yes WC - Visit Discharge [Visit Discharge Information] -Discharge Condition Stable -Ambulatory Status Ambulatory -Transportation Private Auto Musculoskeletal: No Tenderness to Palpation of Joints or Extremities Neurological: Cranial nerves II-XII grossly intact Psych/Mental Status: Normal Affect, Appropriate Debridement Note Post-Debridement Measurements/Treatment - Nurse 2 - General Ulcer CM Notes Start: 06/03/20 13:07 Freq: Status: Active Protocol: Activity Type Activity Date Activity User E-Sign Co-Sign Detail Recorded Client Recorded Date Recorded By Document 06/03/20 13:29 [id number] 06/03/20 13:37 Document 06/10/20 13:38 [id number] 06/10/20 13:42 Document 06/17/20 13:41 [id number] 06/17/20 13:44 Document 06/24/20 13:35 [id number] 06/24/20 13:37 06/03/20 06/10/20 06/17/20 13:29 13:38 13:41 Wound Center Nurse 2 #2 neck -Time 13:30 13:38 13:42 -Correct Patient Yes Yes Yes -Correct Side, Site, Position Yes Yes Yes -Correct Procedure Yes Yes Yes -Procedure Performed Yes Yes Yes -Type of Procedure Debridement Debridement Debridement -Clinical Debridement Subcutaneous Subcutaneous Subcutaneous -Tissue Removed Subcutaneous Subcutaneous Subcutaneous -Post Debridement (cm) - Length 1.8 1.5 0.6 -Post Debridement (cm) - Width 1 0.5 0.3 -Post Debridement (cm) - Depth 0.7 0.4 0.2 -Total Square (Post) (cm) 1.8 0.75 0.18 -Area of Debridement (cm) - Length 1.8 1.5 0.6 -Area of Debridement (cm) - Width 1 0.5 0.3 -Total Square (Area) (cm) 1.8 0.75 0.18 -Tunneling No No No -Undermining/Tunneling No No No -Circular Undermining No No No -Wound/Ulcer Outcome Not Healed Not Healed Not Healed -Ulcer Cleansing Rinsed/ Rinsed/ Rinsed/ Irrigated with Irrigated with Irrigated with Saline Saline Saline -Foul Odor after Cleansing No No No -Bioengineered Tissue No No No -Bleeding Controlled with Pressure Pressure Pressure -Offloading No No No -Treatment Response Procedure Procedure Procedure Tolerated Well Tolerated Well Tolerated Well -Debridement - Subq, 1st 20sq cm Yes Yes Yes #1 chin -Time 13:30 13:39 13:41 -Correct Patient Yes Yes Yes -Correct Side, Site, Position Yes Yes Yes -Correct Procedure Yes Yes Yes -Procedure Performed Yes Yes Yes -Type of Procedure Debridement Debridement Debridement -Clinical Debridement Subcutaneous Subcutaneous Subcutaneous -Tissue Removed Subcutaneous Subcutaneous Subcutaneous -Post Debridement (cm) - Length 0.8 0.5 0.4 -Post Debridement (cm) - Width 2 1.6 1 -Post Debridement (cm) - Depth 0.5 0.4 0.1 -Total Square (Post) (cm) 1.6 0.80 0.4 -Area of Debridement (cm) - Length 0.8 0.5 0.4 -Area of Debridement (cm) - Width 2 1.6 1 -Total Square (Area) (cm) 1.6 0.80 0.4 -Tunneling No No No -Undermining/Tunneling No No No -Circular Undermining No No No -Wound/Ulcer Outcome Not Healed Not Healed Not Healed -Ulcer Cleansing Rinsed/ Rinsed/ Rinsed/ Irrigated with Irrigated with Irrigated with Saline Saline Saline -Foul Odor after Cleansing No No No -Bioengineered Tissue No No No -Bleeding Controlled with Pressure Pressure Pressure -Offloading No No No -Treatment Response Procedure Procedure Procedure Tolerated Well Tolerated Well Tolerated Well -Debridement - Subq, 1st 20sq cm No No No Pain Scale: 0-10 Numeric Is Patient Pain Free? Yes Yes Yes 06/24/20 13:35 Wound Center Nurse 2 #2 neck -Time 13:36 -Correct Patient Yes -Correct Side, Site, Position Yes -Correct Procedure Yes -Procedure Performed Yes -Type of Procedure Debridement -Clinical Debridement Subcutaneous -Tissue Removed Subcutaneous -Post Debridement (cm) - Length 0.5 -Post Debridement (cm) - Width 0.2 -Post Debridement (cm) - Depth 0.1 -Total Square (Post) (cm) 0.10 -Area of Debridement (cm) - Length 0.5 -Area of Debridement (cm) - Width 0.2 -Total Square (Area) (cm) 0.10 -Tunneling No -Undermining/Tunneling No -Circular Undermining No -Wound/Ulcer Outcome Not Healed -Ulcer Cleansing Rinsed/ Irrigated with Saline -Foul Odor after Cleansing No -Bioengineered Tissue No -Bleeding Controlled with Pressure -Offloading No -Treatment Response Procedure Tolerated Well -Debridement - Subq, 1st 20sq cm Yes #1 chin -Time 13:35 -Correct Patient Yes -Correct Side, Site, Position Yes -Correct Procedure Yes -Procedure Performed Yes -Type of Procedure Debridement -Clinical Debridement Subcutaneous -Tissue Removed Subcutaneous -Post Debridement (cm) - Length 0.3 -Post Debridement (cm) - Width 0.3 -Post Debridement (cm) - Depth 0.1 -Total Square (Post) (cm) 0.09 -Area of Debridement (cm) - Length 0.3 -Area of Debridement (cm) - Width 0.3 -Total Square (Area) (cm) 0.09 -Tunneling No -Undermining/Tunneling No -Circular Undermining No -Wound/Ulcer Outcome Not Healed -Ulcer Cleansing Rinsed/ Irrigated with Saline -Foul Odor after Cleansing No -Bioengineered Tissue No -Bleeding Controlled with Pressure -Offloading No -Treatment Response Procedure Tolerated Well -Debridement - Subq, 1st 20sq cm No Pain Scale: 0-10 Numeric Is Patient Pain Free? Yes WC - Nurse 3 - General Ulcer D/C NN Start: 06/03/20 13:07 Freq: Status: Active Protocol: Activity Type Activity Date Activity User E-Sign Co-Sign Detail Recorded Client Recorded Date Recorded By Document 06/03/20 13:48 BMF [id number] 06/03/20 13:48 BMF Document 06/10/20 13:49 DL [id number] 06/10/20 13:50 DL Document 06/17/20 13:59 RB [id number] 06/17/20 14:00 RB Document 06/24/20 13:43 BMF [id number] 06/24/20 13:43 BMF 06/03/20 06/10/20 06/17/20 13:48 13:49 13:59 Wound Care Nurse 3 #2 neck -Ulcer Cleansing Rinsed/ Rinsed/ Rinsed/ Irrigated with Irrigated with Irrigated with Saline Saline Saline -Foul Odor after Cleansing No No -Primary Dressing Applied Aquacel AG 2x2 C Hydrogel ($) C Hydrogel ($) -Other Dressing -Primary Dressing Covered/Secured with Dry Gauze, Dry Gauze, Dry Gauze, Secured with Secured with Secured with Tape Tape Tape -Other Covering -Aquacel AG 2x2 1 #1 chin -Ulcer Cleansing Rinsed/ Rinsed/ Irrigated with Irrigated with Saline Saline -Foul Odor after Cleansing No No -Primary Dressing Applied Aquacel AG 2x2 C Hydrogel ($) -Other Dressing HYDROGEL -Primary Dressing Covered/Secured with Dry Gauze, Dry Gauze, Dry Gauze, Secured with Secured with Secured with Tape Tape Tape -Other Covering -Aquacel AG 2x2 0 Treatment Response Procedure Procedure Procedure Tolerated Well Tolerated Well Tolerated Well Vital Signs Blood Pressure (90/60-120/80) 146/90 H Blood Pressure Mean (mm Hg) 108 Source Monitor Position Semi-Fowlers Blood Pressure Location Left Arm Pain Scale: 0-10 Numeric Is Patient Pain Free? Yes Yes Yes WC - Visit Discharge Discharge Condition Stable Stable Stable Ambulatory Status Ambulatory Ambulatory Ambulatory Transportation Private Auto Private Auto Private Auto Medication Reconcilliation completed & No provided to patient/care provider Clinical Summary of Care Provided Yes 06/24/20 13:43 Wound Care Nurse 3 #2 neck -Ulcer Cleansing Rinsed/ Irrigated with Saline -Foul Odor after Cleansing No -Primary Dressing Applied Other -Other Dressing hydrogel -Primary Dressing Covered/Secured with Dry Gauze, Secured with Tape -Other Covering drsgs per d rashi body straightener -Aquacel AG 2x2 #1 chin -Ulcer Cleansing Rinsed/ Irrigated with Saline -Foul Odor after Cleansing No -Primary Dressing Applied Other -Other Dressing hydrogel -Primary Dressing Covered/Secured with Dry Gauze, Secured with Tape -Other Covering drsgs per d rashi body straightener -Aquacel AG 2x2 Treatment Response Procedure Tolerated Well Vital Signs Blood Pressure (90/60-120/80) Blood Pressure Mean (mm Hg) Source Position Blood Pressure Location Pain Scale: 0-10 Numeric Is Patient Pain Free? Yes WC - Visit Discharge Discharge Condition Stable Ambulatory Status Ambulatory Transportation Private Auto Medication Reconcilliation completed & provided to patient/care provider Clinical Summary of Care Provided Wound debrided: chin Laterality: Left Type of Debridement: Excisional debridement Anesthesia Used: 5% Lidocaine Gel Depth: Down to and including healthy tissue, in the subcutaneous layer Percentage of wound debrided: 100 Instrument Used: 3mm curette Tissue Removed: Subcutaneous tissue and sloughed Severity: Limited To Skin Breakdown Amount of bleeding with debridement: Mild Bleeding Controlled with: Pressure Patient tolerated procedure well - Additional Wound Wound debrided: Neck ulcer Laterality: Left Type of Debridement: Excisional debridement Anesthesia Used: 5% Lidocaine Gel Depth: Down to and including healthy tissue, in the subcutaneous layer Percentage of wound debrided: 100 Instrument Used: 3mm curette Tissue Removed: Subcutaneous tissue and slough Severity: Limited To Skin Breakdown Amount of bleeding with debridement: Mild Bleeding Controlled with: Pressure Patient tolerated procedure: Patient tolerated procedure well Assessment/Plan Active Problems Skin ulcer of chin with fat layer exposed (Chronic) Skin ulcer of neck with fat layer exposed (Chronic) Infection of wound due to methicillin resistant Staphylococcus aureus (MRSA) (Acute) Open wound of neck with complication (Acute) upper anterior neck Open wound of chin (Acute) left chin Abscess of neck (Acute) upper anterior neck Abscess of chin (Acute) left chin Assessment: 1. Abscess left chin involving underlying muscle. 2. Abscess upper anterior neck involving underlying muscle. 3. Open surgical abscess wound left chin. 4. Open surgical abscess wound upper anterior neck. 5. MRSA. 6. s/p surgical preparation left chin with incision and drainage and excisional debridement abscess involving underlying muscle (7.5 cm2) and surigical preparation upper anterior neck with incision and drainage and excisional debridement abscess involving underlying muscle (6.25 cm2). Plan: Wound care - Collagen hydrogel covered by Adaptic daily after washing with soap and water. Encouraged to start massaging the healed scarring to help soften it. Operative wound cultures showed MRSA. Continue Doxycycline. Prealbumin from 05/02/20 was 22.7. Encourage nutritional supplementation with protein to help the healing process. Keep head elevated. Follow up one week. [id number]: [id number] Global Visit
[2020-07-01 12:59] VITALS: BP 143/78; PULSE 63; RESP 16; TEMP 36.3; BMI 40.3
--- NOTE | 2020-07-01 14:05 | PN.PCM_ITS ---
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 Code(s): L98.492 - Non-pressure chronic ulcer of skin of other sites with fat layer exposed (3) Infection of wound due to methicillin resistant Staphylococcus aureus (MRSA) Status: Acute Code(s): A49.02 - Methicillin resistant Staphylococcus aureus infection, unspecified site (4) Abscess of neck Status: Acute Code(s): L02.11 - Cutaneous abscess of neck Comment: upper anterior neck (5) Abscess of chin Status: Acute Code(s): L02.01 - Cutaneous abscess of face Comment: left chin Type of Wound Date of Service: 07/01/20 Chief Complaint: Open surgical MRSA wound of left chin and upper anterior neck. History of Wound: Surgery 05/01/20 - 1. Surgical preparation left chin with incision and drainage and excisional debridement abscess involving underlying muscle (7.5 cm2). 2. Surigical preparation upper anterior neck with incision and drainage and excisional debridement abscess involving underlying muscle (6.25 cm2). Operative culture postive for MRSA. She is being treated with Doxycycline. Wound care - Collagen hydrogel covered with Adaptic daily covered by gauze. Prealbumin 22.7 from 05/02/20. Encouraged protein intact to help improve wound healing. She denies fever, she states her appetite is good. Progress of Wound: Healed today. - Physical Exam Vital Signs Temp Pulse Resp BP 97.4 F L 63 16 143/78 H 07/01/20 12:59 07/01/20 12:59 07/01/20 12:59 07/01/20 12:59 General: Alert, Oriented x3, Cooperative HEENT: Atraumatic Oral: Moist Mucosa Lungs: Normal air movement Cardiovascular: Regular rate Extremities: No edema, Capillary Refill Less than 3 Seconds Skin: Ulcer/ Wound - Left chin ulcer and left neck ulcer are both healed. Wound Measurements and Assessment WC - Nurse 1 - General Ulcer Measurement Start: 06/03/20 13:07 Freq: Status: Active Protocol: Activity Type Activity Date Activity User E-Sign Co-Sign Detail Recorded Client Recorded Date Recorded By Document 07/01/20 12:59 [facility] [id number] 07/01/20 13:04 BMF 07/01/20 12:59 Wound Center Nurse 1 [Ulcer Assessment] #2 neck -Combined with other wound No -Current Size (cm) - Length 0.1 -Current Size (cm) - Width 0.1 -Current Size (cm) - Depth 0.1 -Total Square Cm 0.01 -Epithelialization Large 67-100% -Texture (Alda-wound Skin Appearance) Assessed, Scarring -Moisture (Alda-wound Skin Appearance Assessed,Dry/ ) Scaly -Color (Alda-wound Skin Appearance) Assessed -Temperature (Alda-wound Skin No Abnormality Appearance) (Pt Warm) -Tenderness on Palpation (Alda-wound No Skin Appearance) -Ulcer Cleansing Rinsed/ Irrigated with Saline -Foul Odor after Cleansing No -Anesthetic Used 5% Lidocaine Gel #1 chin -Combined with other wound No -Current Size (cm) - Length 0.1 -Current Size (cm) - Width 0.1 -Current Size (cm) - Depth 0.1 -Total Square Cm 0.01 -Epithelialization Large 67-100% -Texture (Alda-wound Skin Appearance) Assessed, Scarring -Moisture (Alda-wound Skin Appearance Assessed,Dry/ ) Scaly -Color (Alda-wound Skin Appearance) Assessed -Temperature (Alda-wound Skin No Abnormality Appearance) (Pt Warm) -Tenderness on Palpation (Alda-wound No Skin Appearance) -Ulcer Cleansing Rinsed/ Irrigated with Saline -Foul Odor after Cleansing No -Anesthetic Used 5% Lidocaine Gel WC - Nurse 2 - General Ulcer CM Notes Start: 06/03/20 13:07 Freq: Status: Active Protocol: Activity Type Activity Date Activity User E-Sign Co-Sign Detail Recorded Client Recorded Date Recorded By Document 07/01/20 13:11 [id number] 07/01/20 13:13 ANDRES 07/01/20 13:11 Wound Center Nurse 2 [Procedure/Treatment] #2 neck -Correct Patient No -Correct Side, Site, Position No -Correct Procedure No -Procedure Performed No -Post Debridement (cm) - Length 0 -Post Debridement (cm) - Width 0 -Post Debridement (cm) - Depth 0 -Total Square (Post) (cm) 0 -Area of Debridement (cm) - Length 0 -Area of Debridement (cm) - Width 0 -Total Square (Area) (cm) 0 -Wound/Ulcer Outcome Healed- Epithelialized #1 chin -Correct Patient No -Correct Side, Site, Position No -Correct Procedure No -Procedure Performed No -Post Debridement (cm) - Length 0 -Post Debridement (cm) - Width 0 -Post Debridement (cm) - Depth 0 -Total Square (Post) (cm) 0 -Area of Debridement (cm) - Length 0 -Area of Debridement (cm) - Width 0 -Total Square (Area) (cm) 0 -Wound/Ulcer Outcome Healed- Epithelialized [See Physician Procedure note for Specifics] Pain Scale: 0-10 Numeric [Pain] -Is Patient Pain Free? Yes - Nurse 3 - General Ulcer D/C NN Start: 06/03/20 13:07 Freq: Status: Active Protocol: Activity Type Activity Date Activity User E-Sign Co-Sign Detail Recorded Client Recorded Date Recorded By Document 07/01/20 13:14 [id number] 07/01/20 13:14 07/01/20 13:14 -Is Patient Pain Free? Yes - Visit Discharge [Visit Discharge Information] -Discharge Condition Stable -Ambulatory Status Ambulatory -Transportation Private Auto -Medication Reconcilliation completed Yes & provided to patient/care provider -Clinical Summary of Care Provided Yes Musculoskeletal: No Tenderness to Palpation of Joints or Extremities Neurological: Cranial nerves II-XII grossly intact Psych/Mental Status: Normal Affect, Appropriate Debridement Note Post-Debridement Measurements/Treatment - Nurse 2 - General Ulcer CM Notes Start: 06/03/20 13:07 Freq: Status: Active Protocol: Activity Type Activity Date Activity User E-Sign Co-Sign Detail Recorded Client Recorded Date Recorded By Document 06/03/20 13:29 [id number] 06/03/20 13:37 Document 06/10/20 13:38 [id number] 06/10/20 13:42 Document 06/17/20 13:41 [id number] 06/17/20 13:44 Document 06/24/20 13:35 [id number] 06/24/20 13:37 Document 07/01/20 13:11 [id number] 07/01/20 13:13 06/03/20 06/10/20 06/17/20 13:29 13:38 13:41 Wound Center Nurse 2 #2 neck -Time 13:30 13:38 13:42 -Correct Patient Yes Yes Yes -Correct Side, Site, Position Yes Yes Yes -Correct Procedure Yes Yes Yes -Procedure Performed Yes Yes Yes -Type of Procedure Debridement Debridement Debridement -Clinical Debridement Subcutaneous Subcutaneous Subcutaneous -Tissue Removed Subcutaneous Subcutaneous Subcutaneous -Post Debridement (cm) - Length 1.8 1.5 0.6 -Post Debridement (cm) - Width 1 0.5 0.3 -Post Debridement (cm) - Depth 0.7 0.4 0.2 -Total Square (Post) (cm) 1.8 0.75 0.18 -Area of Debridement (cm) - Length 1.8 1.5 0.6 -Area of Debridement (cm) - Width 1 0.5 0.3 -Total Square (Area) (cm) 1.8 0.75 0.18 -Tunneling No No No -Undermining/Tunneling No No No -Circular Undermining No No No -Wound/Ulcer Outcome Not Healed Not Healed Not Healed -Ulcer Cleansing Rinsed/ Rinsed/ Rinsed/ Irrigated with Irrigated with Irrigated with Saline Saline Saline -Foul Odor after Cleansing No No No -Bioengineered Tissue No No No -Bleeding Controlled with Pressure Pressure Pressure -Offloading No No No -Treatment Response Procedure Procedure Procedure Tolerated Well Tolerated Well Tolerated Well -Debridement - Subq, 1st 20sq cm Yes Yes Yes #1 chin -Time 13:30 13:39 13:41 -Correct Patient Yes Yes Yes -Correct Side, Site, Position Yes Yes Yes -Correct Procedure Yes Yes Yes -Procedure Performed Yes Yes Yes -Type of Procedure Debridement Debridement Debridement -Clinical Debridement Subcutaneous Subcutaneous Subcutaneous -Tissue Removed Subcutaneous Subcutaneous Subcutaneous -Post Debridement (cm) - Length 0.8 0.5 0.4 -Post Debridement (cm) - Width 2 1.6 1 -Post Debridement (cm) - Depth 0.5 0.4 0.1 -Total Square (Post) (cm) 1.6 0.80 0.4 -Area of Debridement (cm) - Length 0.8 0.5 0.4 -Area of Debridement (cm) - Width 2 1.6 1 -Total Square (Area) (cm) 1.6 0.80 0.4 -Tunneling No No No -Undermining/Tunneling No No No -Circular Undermining No No No -Wound/Ulcer Outcome Not Healed Not Healed Not Healed -Ulcer Cleansing Rinsed/ Rinsed/ Rinsed/ Irrigated with Irrigated with Irrigated with Saline Saline Saline -Foul Odor after Cleansing No No No -Bioengineered Tissue No No No -Bleeding Controlled with Pressure Pressure Pressure -Offloading No No No -Treatment Response Procedure Procedure Procedure Tolerated Well Tolerated Well Tolerated Well -Debridement - Subq, 1st 20sq cm No No No Pain Scale: 0-10 Numeric Is Patient Pain Free? Yes Yes Yes 06/24/20 07/01/20 13:35 13:11 Wound Center Nurse 2 #2 neck -Time 13:36 -Correct Patient Yes No -Correct Side, Site, Position Yes No -Correct Procedure Yes No -Procedure Performed Yes No -Type of Procedure Debridement -Clinical Debridement Subcutaneous -Tissue Removed Subcutaneous -Post Debridement (cm) - Length 0.5 0 -Post Debridement (cm) - Width 0.2 0 -Post Debridement (cm) - Depth 0.1 0 -Total Square (Post) (cm) 0.10 0 -Area of Debridement (cm) - Length 0.5 0 -Area of Debridement (cm) - Width 0.2 0 -Total Square (Area) (cm) 0.10 0 -Tunneling No -Undermining/Tunneling No -Circular Undermining No -Wound/Ulcer Outcome Not Healed Healed- Epithelialized -Ulcer Cleansing Rinsed/ Irrigated with Saline -Foul Odor after Cleansing No -Bioengineered Tissue No -Bleeding Controlled with Pressure -Offloading No -Treatment Response Procedure Tolerated Well -Debridement - Subq, 1st 20sq cm Yes #1 chin -Time 13:35 -Correct Patient Yes No -Correct Side, Site, Position Yes No -Correct Procedure Yes No -Procedure Performed Yes No -Type of Procedure Debridement -Clinical Debridement Subcutaneous -Tissue Removed Subcutaneous -Post Debridement (cm) - Length 0.3 0 -Post Debridement (cm) - Width 0.3 0 -Post Debridement (cm) - Depth 0.1 0 -Total Square (Post) (cm) 0.09 0 -Area of Debridement (cm) - Length 0.3 0 -Area of Debridement (cm) - Width 0.3 0 -Total Square (Area) (cm) 0.09 0 -Tunneling No -Undermining/Tunneling No -Circular Undermining No -Wound/Ulcer Outcome Not Healed Healed- Epithelialized -Ulcer Cleansing Rinsed/ Irrigated with Saline -Foul Odor after Cleansing No -Bioengineered Tissue No -Bleeding Controlled with Pressure -Offloading No -Treatment Response Procedure Tolerated Well -Debridement - Subq, 1st 20sq cm No Pain Scale: 0-10 Numeric Is Patient Pain Free? Yes Yes - Nurse 3 - General Ulcer D/C NN Start: 06/03/20 13:07 Freq: Status: Active Protocol: Activity Type Activity Date Activity User E-Sign Co-Sign Detail Recorded Client Recorded Date Recorded By Document 06/03/20 13:48 BM [id number] 06/03/20 13:48 BMF Document 06/10/20 13:49 DL [id number] 06/10/20 13:50 DL Document 06/17/20 13:59 RB [id number] 06/17/20 14:00 RB Document 06/24/20 13:43 BMF [id number] 06/24/20 13:43 BMF Document 07/01/20 13:14 JF [id number] 07/01/20 13:14 JF 06/03/20 06/10/20 06/17/20 13:48 13:49 13:59 Wound Care Nurse 3 #2 neck -Ulcer Cleansing Rinsed/ Rinsed/ Rinsed/ Irrigated with Irrigated with Irrigated with Saline Saline Saline -Foul Odor after Cleansing No No -Primary Dressing Applied Aquacel AG 2x2 C Hydrogel ($) C Hydrogel ($) -Other Dressing -Primary Dressing Covered/Secured with Dry Gauze, Dry Gauze, Dry Gauze, Secured with Secured with Secured with Tape Tape Tape -Other Covering -Aquacel AG 2x2 1 #1 chin -Ulcer Cleansing Rinsed/ Rinsed/ Irrigated with Irrigated with Saline Saline -Foul Odor after Cleansing No No -Primary Dressing Applied Aquacel AG 2x2 C Hydrogel ($) -Other Dressing HYDROGEL -Primary Dressing Covered/Secured with Dry Gauze, Dry Gauze, Dry Gauze, Secured with Secured with Secured with Tape Tape Tape -Other Covering -Aquacel AG 2x2 0 Treatment Response Procedure Procedure Procedure Tolerated Well Tolerated Well Tolerated Well Vital Signs Blood Pressure (90/60-120/80) 146/90 H Blood Pressure Mean (mm Hg) 108 Source Monitor Position Semi-Fowlers Blood Pressure Location Left Arm Pain Scale: 0-10 Numeric Is Patient Pain Free? 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 Yes Yes WC - Visit Discharge Discharge Condition Stable Stable Ambulatory Status Ambulatory Ambulatory Transportation Private Auto Private Auto Medication Reconcilliation completed & Yes provided to patient/care provider Clinical Summary of Care Provided Yes No debridement was completed today Assessment/Plan Active Problems Skin ulcer of chin with fat layer exposed (Chronic) Skin ulcer of neck with fat layer exposed (Chronic) Infection of wound due to methicillin resistant Staphylococcus aureus (MRSA) (Acute) Open wound of neck with complication (Acute) upper anterior neck Open wound of chin (Acute) left chin Abscess of neck (Acute) upper anterior neck Abscess of chin (Acute) left chin Assessment: 1. Abscess left chin involving underlying muscle. 2. Abscess upper anterior neck involving underlying muscle. 3. Open surgical abscess wound left chin. 4. Open surgical abscess wound upper anterior neck. 5. MRSA. 6. s/p surgical preparation left chin with incision and drainage and excisional debridement abscess involving underlying muscle (7.5 cm2) and surigical preparation upper anterior neck with incision and drainage and excisional debridement abscess involving underlying muscle (6.25 cm2). Plan: Both the left chin and left neck ulcers are healed. Encouraged to massage the scarring to help soften it. Instructed to use sunscreen to prevent darkening of the scar. Operative wound cultures showed MRSA. Continue Doxycycline. Prealbumin from 05/02/20 was 22.7. Encourage nutritional supplementation with protein to help the healing process. Keep head elevated. Follow up as needed. If she develops any issues with redness, pain or infection, she should follow up. [id number]: [id number] Global Visit
== END 2020-07-03 23:59 ==
LOC: WC 13:00
PROVIDERS: PCP Family Medicine; Visit Provider Nurse Practitioner Family
DX: L98.492 Non-pressure chronic ulcer of skin of other sites with fat layer exposed (principal); A49.02 Methicillin resistant Staphylococcus aureus infection, unspecified site; L02.11 Cutaneous abscess of neck; L02.01 Cutaneous abscess of face
CPT/HCPCS: 11042; 99213; G0463

== ENCOUNTER 2020-08-16 12:26 | Day surgery (SDC) | payer MEDICAID, SELFPAY ==
[2020-08-16] VITALS (7 sets, daily range): BP systolic 103–148; BP diastolic 53–75; PULSE 53–70; RESP 16–18; TEMP 36.2–36.5; O2SAT 93–100; BMI 43.9
[2020-08-16] MEDS: Lactated Ringers 1,000 ML 100 ML IV (12:58)
[2020-08-16] MEDS: Bupivacaine 0.25% 30 ML Vial (13:58)
[2020-08-16] MEDS: Triamcinolone Acetonide 40 MG/ML Vial (13:58)
[2020-08-16] MEDS: Lidocaine 1% (30 ml sdv) 30 ML Vial (13:58)
--- NOTE | 2020-08-16 14:12 | RAD_ITS ---
STUDY: X-RAY - LUMBAR SPINE REASON FOR EXAM: Female, 45 years old. BLOCK, LUMBAR FACET L3, L4, L5, S1 TECHNIQUE: 4 intraoperative view(s) of the lumbar spine were obtained. COMPARISON: None FINDINGS: Intraoperative imaging provided for right L3-S1 facet joint block. RAD/Lumbar Spine 2 or 3 Views IMPRESSION: Intraoperative imaging provided for right L3-S1 facet joint block. Electronically Signed: Terrance James MD at 15:32 EDT , Service support ,
--- NOTE | 2020-08-16 14:38 | PCM.DC ---
Discharge Instructions Diet Discharge Diet: No restrictions Activity Return to work on:: 06/25/20 May resume sexual activity in: No Restrictions and 10-14 days Weight Bearing Status: Weight bearing as tolerated Keep extremity elevated above heart level: Operative Extremity Dressing / Incision Call your doctor if your incision/area has: Continuous Slow Oozing Call your doctor if you observe: Fever of 101 or Higher Follow Up Care Please Follow Up With: Mayank Nolasco MD When: 4 w Test Results: Test results from this visit will be discussed in further detail at your follow-up appointment, if applicable. Discharge Plan Admission Attending Provider: Mayank Nolasco Primary Care Provider: Aftab Sevilla Instructions Patient Instructions: Osteoarthritis: Managing Pain Additional Instructions / Restrictions: Avoid heavy lifting for the next 48 hours, clean the site with water and soap, take the dressing within 24 hours follow-up in office. Discharge Orders/Prescriptions Prescriptions: No Action nifedipine 60 MG tablet 30 mg PO DAILY RF: 0 clonazepam 1 MG tablet,disintegrating 1 mg PO DAILY PRN (Reason: Anxiety) RF: 0 Omeprazole [Prilosec] 40 MG capsule 40 mg PO BID RF: 0 nabumetone 750 MG tablet 750 mg PO BID RF: 0 sertraline 100 MG tablet 200 mg PO DAILY RF: 0 tizanidine 4 MG capsule 4 mg PO TID PRN (Reason: Muscle Spasm) RF: 0 atenolol 50 MG tablet 50 mg PO DAILY Qty: 0 RF: 0 doxycycline monohydrate 100 MG capsule 100 mg PO BID Qty: 28 RF: 1 Referrals / Follow Up: Aftab Sevilla MD [Primary Care Provider] - Disposition Disposition (needs filled in before D/C Order can be placed): Home, self care
--- NOTE | 2020-08-16 14:44 | OP.PCM_ITS ---
Report of Operation Date of Procedure: 08/16/20 Pre-Operative Diagnosis: Lumbar spondylosis Post-Operative Diagnosis: Lumbar spondylosis Surgery/Procedure Performed:: Right side lumbar facet median nerve branch block at the level of the right side L3-4, L4-5, L5-S1 under fluoroscopy guidance Description of Surgical Findings:: Under sterile conditions. Patient placed in the prone position, pressure points were padded, patient was ready from the nursing and the anesthesia team. After identification of the side and the target area for the block under guided fluoroscopy, the entry site was marked with marking pen. I used Betadine for sterilization of the skin, sterile draping were applied. Using 25-gauge needle to infiltrate the skin with local anesthesia using preservative-free lidocaine 0.5% injected 2.5 mL at each site of entry. Using oblique fluoroscopy, accessed the right medial nerve branch supplying the [right] lumbar facets L3-4, L4-5, L5-S1 using 22-gauge spinal needle. After confirmation of appropriate needle placement to the targeted area with AP and lateral fluoroscopy, injected 2.5 mL mixture of preservative-free Marcaine 0.5% and Kenalog [20] mg at each site. [place] was removed, pressure dressing were applied. Patient tolerated the procedure well and was taken to the recovery. Surgeon: carloz Type of Anesthesia: MAC Complications No
== END 2020-08-16 14:48 | disposition home or self-care (01) ==
LOC: SDC 12:27 → AC 12:27
PROVIDERS: PCP Family Medicine; Referring Provider Anesthesiology; Visit Provider Anesthesiology
PROC: 3E0T3BZ Introduction of Anesthetic Agent into Peripheral Nerves and Plexi, Percutaneous Approach (ICD-10-PCS; CPT 64493; principal; 2020-08-16 13:25)
DX: M47.816 Spondylosis without myelopathy or radiculopathy, lumbar region (principal); Z86.14 Personal history of Methicillin resistant Staphylococcus aureus infection
CPT/HCPCS: 64493; 64494; 64495; 64483; 72100; J7120; J2405

== ENCOUNTER 2020-08-30 12:08 | Day surgery (SDC) | payer MEDICAID, SELFPAY ==
[2020-08-16 12:54] VITALS: BMI 43.9
[2020-08-30 12:20] VITALS: BP 117/82; PULSE 59; RESP 16; TEMP 36.2; O2SAT 100; BMI 43.0
--- NOTE | 2020-08-30 12:41 | PCM.DC ---
Discharge Instructions Diet Discharge Diet: No restrictions Activity Discharge Activity: Return to Normal Activity, May Not Drive, May not drive while taking narcotic pain medications. and May Shower Return to work on:: 09/03/20 May shower in (days): 1 May resume sexual activity in: No Restrictions Weight Bearing Status: Weight bearing as tolerated Dressing / Incision Call your doctor if your incision/area has: Continuous Slow Oozing, Sudden Increased Bleeding, Increased Pain/ Swelling, Increased Redness, Foul Smelling Discharge and Swelling at the incision site Call your doctor if you observe: Fever of 101 or Higher, Coldness, Increased Pain, Numbness or Tingling, Change in Color, Inability to urinate, Inability to have a bowel movement, Increased palpitations (irregular heartbeat), Calf discomfort and Uncontrolled pain Suture Line Care: Avoid Pulling/Pushing and Avoid Pinching/Bending Change Dressing in: 1 day Remove Dressing in: 1 day Cleanse incision/area with: Soap & Water and Keep Dressing Clean & Dry Follow Up Care Please Follow Up With: Mayank Nolasco MD When: 2 to 4-week Test Results: Test results from this visit will be discussed in further detail at your follow-up appointment, if applicable. Discharge Plan Admission Primary Reason for Your Visit: Lumbar facet block Attending Provider: Mayank Nolasco Primary Care Provider: Aftab Sevilla Instructions Patient Instructions: Osteoarthritis: Managing Pain, ED Back Exercises, Lumbar Discharge Orders/Prescriptions Prescriptions: Continued nifedipine 60 MG tablet 30 mg PO DAILY RF: 0 clonazepam 1 MG tablet,disintegrating 1 mg PO DAILY PRN (Reason: Anxiety) RF: 0 Omeprazole [Prilosec] 40 MG capsule 40 mg PO BID RF: 0 nabumetone 750 MG tablet 750 mg PO BID RF: 0 sertraline 100 MG tablet 200 mg PO DAILY RF: 0 tizanidine 4 MG capsule 4 mg PO TID PRN (Reason: Muscle Spasm) RF: 0 atenolol 50 MG tablet 50 mg PO DAILY Qty: 0 RF: 0 doxycycline monohydrate 100 MG capsule 100 mg PO BID Qty: 28 RF: 1 Referrals / Follow Up: Aftab Sevilla MD [Primary Care Provider] - Mayank Nolasco MD [STAFF PHYSICIAN] - Disposition Disposition (needs filled in before D/C Order can be placed): Home, self care
[2020-08-30] MEDS: Lactated Ringers 1,000 ML 100 ML IV (13:00)
--- NOTE | 2020-08-30 13:25 | PCM.OPRPT ---
Problems Associated Problem List Diagnoses (1) Spondylosis of lumbar region without myelopathy or radiculopathy: (2) Spondylosis of lumbar region without myelopathy or radiculopathy: (3) Low back pain: (4) Low back pain: Report of Operation Date of Procedure: 08/30/20 Pre-Operative Diagnosis: Lumbar facet spondylosis Post-Operative Diagnosis: Same Surgery/Procedure Performed:: Lumbar facets median nerve branch block at the level of the left side L3-4, L4-5, L5-S1 Description of Surgical Findings:: Under sterile conditions. Patient placed in the prone position, pressure points were padded, patient was ready from the nursing and the anesthesia team. After identification of the side and the target area for the block under guided fluoroscopy, the entry site was marked with marking pen. I used Betadine for sterilization of the skin, sterile draping were applied. Using 25-gauge needle to infiltrate the skin with local anesthesia using preservative-free lidocaine 0.5% injected 2.5 mL at each site of entry. Using oblique fluoroscopy, accessed the left medial nerve branch supplying the [left] lumbar facets L3-4, L4-5, L5-S1 using 22-gauge spinal needle. After confirmation of appropriate needle placement to the targeted area with AP and lateral fluoroscopy, injected 2.5 mL mixture of preservative-free Marcaine 0.5% and Kenalog [20] mg at each site. [place] was removed, pressure dressing were applied. Patient tolerated the procedure well and was taken to the recovery. Surgeon: Mayank Nolasco Type of Anesthesia: MAC/Supplemental/Local Estimated Blood Loss (mL): None Complications No complications Admit VTE Documentation VTE Present on Admission: No VTE Mechan Device Prophylaxis: None Reason prophylaxis not ordered:: Procedure Not Indicated
--- NOTE | 2020-08-30 13:27 | RAD_ITS ---
PROCEDURE: Left L3-S1 facet joint block. DATE OF EXAMINATION: 08/30/2020. INDICATION: Female, 45 years old. Chronic low back pain. FLUOROSCOPY TIME (if supplied): (22 seconds) minutes/seconds. 4 intraoperative images were provided. RAD/L/S Spine Min 4 Views IMPRESSION: Intraoperative imaging provided for left L3-S1 facet joint block. Electronically Signed: Terrance James MD at 12:44 EDT , Service support ,
[2020-08-30] MEDS: Lidocaine 1% (30 ml sdv) 30 ML Vial (13:34)
[2020-08-30] MEDS: Bupivacaine 0.25% 30 ML Vial (13:34)
[2020-08-30] MEDS: Triamcinolone Acetonide 40 MG/ML Vial (13:34)
[2020-08-30 13:50] VITALS: BP 103/73; BP 117/82; PULSE 54; RESP 16; TEMP 36.1; O2SAT 98
[2020-08-30 13:55] VITALS: BP 117/82; BP 127/73; PULSE 53; RESP 16; O2SAT 99
[2020-08-30 14:00] VITALS: BP 117/82; BP 126/73; PULSE 53; RESP 16; O2SAT 100
[2020-08-30 14:04] VITALS: BP 117/82; BP 128/73; BP 138/78; PULSE 54; RESP 16; TEMP 36.1; O2SAT 100
[2020-08-30 14:31] VITALS: BP 117/82; BP 145/83; PULSE 53; RESP 16; TEMP 36.4; O2SAT 100
== END 2020-08-30 14:35 | disposition home or self-care (01) ==
LOC: SDC 12:09 → AC 12:09
PROVIDERS: PCP Family Medicine; Referring Provider Anesthesiology; Visit Provider Anesthesiology
PROC: 3E0T3BZ Introduction of Anesthetic Agent into Peripheral Nerves and Plexi, Percutaneous Approach (ICD-10-PCS; CPT 64493; principal; 2020-08-30 13:25)
DX: M47.816 Spondylosis without myelopathy or radiculopathy, lumbar region (principal); M54.5 Low back pain; K21.9 Gastro-esophageal reflux disease without esophagitis; Z86.14 Personal history of Methicillin resistant Staphylococcus aureus infection
CPT/HCPCS: 01922; 64493; 64494; 64495; 64483; 72110; J7120

== ENCOUNTER 2021-01-31 13:32 | Day surgery (SDC) | payer MEDICAID, SELFPAY ==
[2021-01-31] VITALS (7 sets, daily range): BP systolic 102–137; BP diastolic 56–81; PULSE 51–64; RESP 16–18; TEMP 35.9–36.9; O2SAT 96–100; BMI 44.6
[2021-01-31] MEDS: Lactated Ringers 1,000 ML 100 ML IV (14:02)
[2021-01-31] MEDS: Lidocaine 1% (30 ml sdv) 30 ML Vial (14:56)
--- NOTE | 2021-01-31 15:08 | PCM.OPRPT ---
Problems Associated Problem List Diagnoses (1) Intervertebral disc disorder with radiculopathy of lumbar region: (2) Other intervertebral disc degeneration, lumbar region: (3) Other intervertebral disc degeneration, lumbar region: (4) Intervertebral disc disorder with radiculopathy of lumbar region: (5) Sciatica due to displacement of lumbar intervertebral disc: (6) Low back pain: (7) Low back pain: Report of Operation Pre-Operative Diagnosis: Lumbar degenerative disc disease and lumbar radiculopathy Post-Operative Diagnosis: Same Surgery/Procedure Performed:: Lumbar epidural steroid injection under fluoroscopy guidance at the level of L3-4 Description of Surgical Findings:: Under sterile conditions. Patient placed in the prone position, pressure points were padded, patient was ready from the nursing and the anesthesia team. After identification of the side and the target area for the block under guided fluoroscopy, the entry site was marked with marking pen. I used Betadine for sterilization of the skin, sterile draping were applied. Using 25-gauge needle to infiltrate the skin with local anesthesia using preservative-free lidocaine 0.5% injected 2.5 mL at site of entry. Using guided fluoroscopy, accessed the the posterior epidural space using 18-gauge Touhy needles under midline approach, accessed the site was assisted with lateral fluoroscopy, followed by using pyuy-po-vqopxrmhuz technique using preservative-free normal saline, negative aspiration of CSF and blood. Injected contrast solution [2.5] mL under live fluoroscopy which showed good spread of the contrast to the posterior epidural space and to the targeted area of the injection at[ L3-4]. Injected [5] mL of mixture of preservative-free lidocaine and Kenalog [80] mg for the procedure which showed appropriate spread in the epidural space. [place] was removed, pressure dressing were applied. Patient tolerated the procedure well and was taken to the recovery. Surgeon: Mayank Nolasco Type of Anesthesia: MAC/Supplemental/Local Estimated Blood Loss (mL): None Complications No complications Admit VTE Documentation VTE Present on Admission: No VTE Pharm Prophylaxis ordered?: No Reason prophylaxis not ordered:: Procedure Not Indicated
--- NOTE | 2021-01-31 15:09 | PCM.DC ---
Discharge Instructions Diet Discharge Diet: No restrictions Activity May resume sexual activity in: No Restrictions Weight Bearing Status: Weight bearing as tolerated Dressing / Incision Call your doctor if your incision/area has: Continuous Slow Oozing, Sudden Increased Bleeding, Increased Pain/ Swelling, Increased Redness, Foul Smelling Discharge and Swelling at the incision site Call your doctor if you observe: Fever of 101 or Higher, Coldness, Increased Pain, Numbness or Tingling, Change in Color, Inability to urinate, Inability to have a bowel movement, Increased palpitations (irregular heartbeat), Calf discomfort and Uncontrolled pain Suture Line Care: Avoid Pulling/Pushing and Avoid Pinching/Bending Change Dressing in: 1 day Remove Dressing in: 1 day Cleanse incision/area with: Soap & Water and Keep Dressing Clean & Dry Follow Up Care Please Follow Up With: Mayank Nolasco MD When: 2 to 4-week Test Results: Test results from this visit will be discussed in further detail at your follow-up appointment, if applicable. Discharge Plan Admission Attending Provider: Mayank Nolasco Primary Care Provider: Aftab Sevilla Discharge Orders/Prescriptions Prescriptions: No Action nifedipine 60 MG tablet 30 mg PO 1200 RF: 0 Omeprazole [Prilosec] 40 MG capsule 40 mg PO BID RF: 0 nabumetone 750 MG tablet 750 mg PO BID RF: 0 sertraline 100 MG tablet 100 mg PO BID RF: 0 tizanidine 4 MG capsule 4 mg PO TID PRN (Reason: Muscle Spasm) RF: 0 atenolol 50 MG tablet 50 mg PO 1200 RF: 0
[2021-01-31] MEDS: Triamcinolone Acetonide 40 MG/ML Vial (15:25)
--- NOTE | 2021-01-31 15:40 | RAD_ITS ---
STUDY: X-RAY - LUMBAR SPINE REASON FOR EXAM: Female, 46 years old. BLOCK, EPIDURAL L3-4 TECHNIQUE: 3 limited intraoperative views COMPARISON: None FINDINGS: 3 limited intraoperative views were performed as the patient has undergone an epidural block at L3-4. The localizer needle is noted posterior to the L3-4 disc space on both lateral and AP films RAD/Spine 1 View Any Level IMPRESSION: Satisfactory needle position posterior to the L3-4 disc space Electronically Signed: Reg Ahuja MD at 16:34 EDT , Service support ,
== END 2021-01-31 16:16 ==
LOC: SDC 13:32 → AC 13:33
PROVIDERS: PCP Family Medicine; Referring Provider Anesthesiology; Visit Provider Anesthesiology
PROC: 3E0S3BZ Introduction of Anesthetic Agent into Epidural Space, Percutaneous Approach (ICD-10-PCS; CPT 62322; principal; 2021-01-31 14:25)
DX: M54.50 Low back pain, unspecified (principal); M51.16 Intervertebral disc disorders with radiculopathy, lumbar region
CPT/HCPCS: 62323; 64483; 72020

== ENCOUNTER 2021-07-04 06:28 | Day surgery (SDC) | payer MEDICAID, SELFPAY ==
[2021-07-04 06:53] VITALS: BP 133/74; PULSE 51; RESP 18; TEMP 36.3; O2SAT 100; BMI 43.9
--- NOTE | 2021-07-04 08:00 | RAD_ITS ---
STUDY: X-RAY - LUMBAR SPINE REASON FOR EXAM: Female, 46 years old. LUMBAR FACET JOINT INJECTION, L4-5, L5-S1, BILAT TECHNIQUE: 6 intraoperative views of the lumbosacral spine were obtained with the C-arm. COMPARISON: Previous intraoperative study of 08/16/2020. FINDINGS: Intraoperative views show sequential placement of percutaneous needles over the lower lumbar facet joints. Total fluoroscopy time was 14.5 seconds. Cumulative dose was 5.95 mGy. Electronically Signed: Davi Perry MD at 3:41 EDT , RAD/L/S Spine Min 4 Views
[2021-07-04] MEDS: Triamcinolone Acetonide 40 MG/ML Vial (08:32)
[2021-07-04] MEDS: Bupivacaine 0.25% 30 ML Vial (08:32)
[2021-07-04 08:40] VITALS: BP 112/63; BP 133/74; PULSE 54; RESP 12; TEMP 36.2; O2SAT 94
[2021-07-04 08:45] VITALS: BP 122/68; BP 133/74; PULSE 45; RESP 14; O2SAT 93
[2021-07-04 08:50] VITALS: BP 133/74; BP 135/74; PULSE 44; RESP 14; O2SAT 97
[2021-07-04 08:55] VITALS: BP 125/66; BP 133/74; PULSE 55; RESP 14; TEMP 36.4; O2SAT 97
[2021-07-04 09:00] VITALS: BP 133/74
== END 2021-07-04 23:59 | disposition home or self-care (01) ==
LOC: SDC 06:29 → AC 06:31
PROVIDERS: PCP Family Medicine; Referring Provider Anesthesiology Pain Medicine; Visit Provider Anesthesiology Pain Medicine
PROC: 3E0T3BZ Introduction of Anesthetic Agent into Peripheral Nerves and Plexi, Percutaneous Approach (ICD-10-PCS; CPT 64493; principal; 2021-07-04 07:55)
DX: M47.896 Other spondylosis, lumbar region (principal); M51.37 Other intervertebral disc degeneration, lumbosacral region; M47.816 Spondylosis without myelopathy or radiculopathy, lumbar region; M51.36 Other intervertebral disc degeneration, lumbar region
CPT/HCPCS: 64493; 64494; 64483; 72110; J7120

== ENCOUNTER → 2021-08-09 | Outpatient (CLI) | payer MEDICAID, SELFPAY ==
--- NOTE | 2021-08-09 07:45 | MRI_ITS ---
STUDY: MRI LUMBAR SPINE WITHOUT CONTRAST REASON FOR EXAM: Female, 46 years old. RADICULOPATHY TECHNIQUE: Standardized fat and water weighted pulse sequences were obtained in the sagittal and axial planes. COMPARISON: 03/26/2017 FINDINGS: T12-L1: Normal endplates. Normal disc height, hydration and morphology. Normal bilateral facet joints. Normal central canal and bilateral lateral recesses. Normal bilateral intervertebral neural foramina. Normal lumbar lordosis. There is no substantial scoliosis. Normal conus medullaris that terminates at the T12/L1. L1-2: Some disc desiccation but no disc protrusion, spinal stenosis, or neural foraminal stenosis. L2-3: Some disc desiccation but no disc protrusion, spinal stenosis, or neural foraminal stenosis. L3-4: Mild bilateral facet hypertrophy and ligament flavum hypertrophy. No change in the mild broad disc protrusion which produces mild spinal stenosis and mild bilateral neural foraminal stenosis. L4-5: Mild bilateral facet hypertrophy and ligament flavum hypertrophy. No change in the mild broad disc protrusion which produces mild spinal stenosis and mild bilateral neural foraminal stenosis. L5-S1: Normal endplates. Normal disc height, hydration and morphology. Normal bilateral facet joints. Normal central canal and bilateral lateral recesses. Normal bilateral intervertebral neural foramina. Normal visualized sacral ala. Normal visualized paraspinous soft tissue structures. MRI/Spine Lumbar (Routine) IMPRESSION: No change from 03/26/2017. Electronically Signed: Frank Robertson MD at 14:44 EDT ,
== END | disposition home or self-care (01) ==
LOC: MRI 07:16
PROVIDERS: PCP Family Medicine; Referring Provider Anesthesiology Pain Medicine; Visit Provider Anesthesiology Pain Medicine
DX: M54.16 Radiculopathy, lumbar region (principal)
CPT/HCPCS: 72148

== ENCOUNTER 2021-09-26 12:11 | Day surgery (SDC) | payer MEDICAID, SELFPAY ==
--- NOTE | 2021-09-26 12:30 | RAD_ITS ---
PROCEDURE: Epidural block at the L4-L5 level. DATE OF EXAMINATION: 09/26/2021. INDICATION: Female, 46 years old. Chronic low back pain. FLUOROSCOPY TIME (if supplied): (4.7 seconds) minutes/seconds. 2 images were obtained. RAD/Spine 1 View Any Level IMPRESSION: Intraoperative imaging provided for L4-L5 epidural block. Electronically Signed: Terrance James MD at 12:05 EDT ,
[2021-09-26 12:37] VITALS: BP 132/92; PULSE 61; RESP 17; TEMP 36.3; O2SAT 100; BMI 43.2
[2021-09-26] MEDS: Triamcinolone Acetonide 40 MG/ML Vial (13:20)
[2021-09-26] MEDS: Lidocaine 0.5% (50 ml) 50 ML Vial (13:20)
[2021-09-26 13:30] VITALS: BP 132/92; BP 99/58; PULSE 58; RESP 16; TEMP 36.4; O2SAT 92
[2021-09-26 13:35] VITALS: BP 101/66; BP 132/92; PULSE 55; RESP 16; O2SAT 93
[2021-09-26 13:40] VITALS: BP 132/92; BP 85/58; PULSE 54; RESP 16; O2SAT 97
[2021-09-26 13:47] VITALS: BP 119/73; BP 132/92; PULSE 55; RESP 16; TEMP 36.4; O2SAT 98
[2021-09-26 14:10] VITALS: BP 132/92
== END 2021-09-26 14:28 | disposition home or self-care (01) ==
LOC: SDC 12:13 → AC 12:14
PROVIDERS: PCP Family Medicine; Visit Provider Anesthesiology Pain Medicine
PROC: 3E0S3BZ Introduction of Anesthetic Agent into Epidural Space, Percutaneous Approach (ICD-10-PCS; CPT 62322; principal; 2021-09-26 13:25)
DX: M54.16 Radiculopathy, lumbar region (principal); M51.26 Other intervertebral disc displacement, lumbar region; M54.17 Radiculopathy, lumbosacral region
CPT/HCPCS: 62322; 64483; 72020; J7120

== ENCOUNTER 2021-11-12 22:05 | Emergency (ER) | payer MEDICAID, SELFPAY ==
[2021-11-12 22:06] VITALS: BP 132/62; PULSE 64; RESP 14; TEMP 36.3; O2SAT 100; BMI 41.9
--- NOTE | 2021-11-12 22:45 | RAD_ITS ---
STUDY: X-RAY - LEFT FOOT CLINICAL: Female, 46 years old. injury TECHNIQUE: 3 view(s) of the foot. COMPARISON: None. FINDINGS: Normal talus, calcaneus, and tarsal bones. Well-corticated ossific density inferior to the fibula. Normal visualized subtalar, talonavicular, calcaneocuboid, tarsal and tarsometatarsal articulations. Normal metatarsi. Normal metatarsophalangeal joint of the great toe. Normal tibial and fibular sesamoid bones. Normal interphalangeal joint of the great toe. Normal phalanges of the great toe. Normal second through fifth metatarsophalangeal joints. Normal interphalangeal joints and phalanges of the lesser toes. The soft tissue structures are unremarkable. RAD/Foot min 3 Views IMPRESSION: Old avulsion fracture distal fibula otherwise Normal x-ray examination of the foot. Electronically Signed: Timothy Christie MD at 23:07 EDT ,
[2021-11-12] MEDS: Naproxen 500 MG Tablet PO (22:46)
--- NOTE | 2021-11-12 23:31 | ED.VIS.LOWEX ---
HPI History of Present Illness Chief Complaint: Lower Extremity Injury Informant: patient Onset/Context/Timing Onset: Days (3-days) Narrative Narrative: Patient presents secondary left foot pain. She was in [place] several days ago when a large brick fell onto her left foot. She has pain and ecchymosis. [facility] Medical History Alcohol use Anxiety Back pain Cardiology follow-up encounter Depression Easy bruising Encounter for incision and drainage procedure Excessive bleeding Gastric reflux History of pain when walking Hx of fracture of ankle Hypertension Leg cramps Migraine headache Non-smoker Pain Wears dentures Home Medications nifedipine 60 mg tablet,extended release 24 hr 30 mg PO 1200 blood pressure 12/14/14 [History Last Taken 07/03/21] Omeprazole [Prilosec] 40 mg PO BID gerd 07/17/16 [History Last Taken 07/03/21] nabumetone 750 mg tablet 750 mg PO BID pain 04/29/20 [History Last Taken 07/03/21] sertraline 100 mg tablet 100 mg PO BID mental health 04/29/20 [History Last Taken 07/03/21] tizanidine 4 mg capsule 4 mg PO TID PRN Muscle Spasm 04/29/20 [History Last Taken 07/03/21] atenolol 50 mg tablet 50 mg PO 1200 blood pressure 01/30/21 [History Last Taken 07/03/21] buspirone 5 mg tablet 5 tab PO DAILY 09/26/21 [History Last Taken Unknown] rizatriptan 10 mg tablet 1 tab PO PRN PRN Migraine Headache 09/26/21 [History Last Taken Unknown] topiramate 50 mg tablet 50 tab PO DAILY 09/26/21 [History Last Taken Unknown] naproxen 500 mg tablet (Naprosyn) 500 mg PO BID PRN pain #20 tabs 11/12/21 [Rx Last Taken Unknown] Allergy/AdvReac Type Severity Reaction Status Date / Time bupropion Allergy Itching Verified 11/12/21 22:06 Surgical History Hx laparoscopic cholecystectomy Hx of hysterectomy Hx of nasal septoplasty Social History Smoking Status: Never smoker ROS ROS ED Constitutional Constitutional ED: Denies chills or fever(s) Eyes Eyes: Denies change in vision or discharge from eye(s) ENT ENT ED: Denies discharge from eye(s), rhinorrhea or sore throat Cardiovascular Cardiovascular: Denies chest pain or palpitations Respiratory/Chest Respiratory/Chest: Denies cough or dyspnea Gastrointestinal Gastrointestinal: Denies abdominal pain, nausea or vomiting Genitourinary Genitourinary ED: Denies dysuria Musculoskeletal Musculoskeletal: Reports extremity pain; Denies back pain Integumentary Reports Abrasions; Denies rash Neurologic Neurologic: Denies headache(s) or weakness Psychiatric Psychiatric: Denies anxiety or depression Allergic/Immunologic Allergic/Immunologic ED: Denies lip swelling or urticaria EXAM Physical Exam Const Vital Signs: 11/12/21 22:06 Temperature 97.3 F L Temperature Source Temporal Pulse Rate 64 Respiratory Rate 14 Blood Pressure 132/62 H Blood Pressure Mean 85 Pulse Ox 100 Oxygen Delivery Method Room Air Positive well nourished and well developed General Appearance ED: well developed HEENT Reports normocephalic and head/scalp atraumatic Eyes PERRL and EOMs intact bilaterally Neck supple Chest Wall inspection of chest normal and palpation of chest normal Resp normal respiratory effort and clear to auscultation bilaterally Cardio regular rate and regular rhythm GI normal to inspection, nondistended, normoactive bowel sounds Palpation: soft Extremity Extremity Narrative: Abrasion noted to the lateral portion of the left lower leg. No tenderness to this area. Ecchymosis noted over the third, fourth, fifth metatarsals of the left foot with tenderness. No obvious deformity. No open wounds. Neuro oriented x3 and no sensory deficits noted Sensorium / Orientation: alert Motor Exam: strength 5/5 throughout Psych mental status grossly normal Skin no rashes or lesions noted MDM MDM MDM Narrative Medical decision making narrative: Patient given Naprosyn. Left foot x-rays obtained. Radiography Diagnostic Testing: Clinical Impression(s) from Imaging Studies Foot X-Ray 11/12/21 22:45 IMPRESSION: Old avulsion fracture distal fibula otherwise Normal x-ray examination of the foot. Electronically Signed: Timothy Christie MD at 23:07 EDT Reading Location ID and State: [address] [place] [address] , Service support , Treatment and Re-Evaluation Narrative: Left foot x-ray per my interpretation reveals no acute fracture. Radiology interpretation is reviewed and concurs. Patient's foot is wrapped with an Nirav wrap. She will be given a prescription for naproxen. Discharge Plan Triage Chief Complaint: Lower Extremity Injury ED Provider: Katarzyna Savage Dx/Rx/DC Orders Clinical Impression: Contusion of foot, left Instructions: ED Foot Contusion Prescriptions: New naproxen [Naprosyn] 500 mg tablet 500 mg PO BID PRN (Reason: pain) Qty: 20 0RF No Action nifedipine 60 MG tablet 30 mg PO 1200 Label Comments: BP Omeprazole [Prilosec] 40 MG capsule 40 mg PO BID Label Comments: REFLUX nabumetone 750 MG tablet 750 mg PO BID sertraline 100 MG tablet 100 mg PO BID tizanidine 4 MG capsule 4 mg PO TID PRN (Reason: Muscle Spasm) atenolol 50 MG tablet 50 mg PO 1200 Label Comments: BP Rx Instructions: Hold for heart rate less than 60/min or systolic blood pressure less than 100 mmHg buspirone 5 mg tablet 5 tab PO DAILY rizatriptan 10 mg tablet 1 tab PO PRN PRN (Reason: Migraine Headache) Label Comments: TAKE 1 TABLET BY MOUTH NEEDED FOR MIGRAINE HEADACHE topiramate 50 mg tablet 50 tab PO DAILY Primary Care Provider: Aftab Sevilla Referrals: Aftab Sevilla MD [Primary Care Provider] - 1 Week if not improving Disposition Disposition: Home, Self Care
== END 2021-11-13 00:01 | disposition home or self-care (01) ==
PROVIDERS: Emergency Provider Emergency Medicine; PCP Family Medicine; Visit Provider Emergency Medicine
DX: S90.32XA Contusion of left foot, initial encounter (principal); I10 Essential (primary) hypertension; W20.8XXA Other cause of strike by thrown, projected or falling object, initial encounter
CPT/HCPCS: 73630; 99283

== ENCOUNTER → 2022-05-06 | Outpatient (CLI) | payer MEDICAID, SELFPAY ==
[2022-05-06 16:42] LABS: Amphetamine Urine VISTA NEGATIVE (<1000 ng/mL); Barbiturate Urine VISTA NEGATIVE (< 200 ng/mL); Benzodiazepine Urine VISTA NEGATIVE (< 200 ng/mL); Cocaine Urine VISTA NEGATIVE (< 300 ng/mL); Ecstacy Urine VISTA NEGATIVE (< 500 ng/mL); Methadone Urine VISTA NEGATIVE (< 300 ng/mL); PCP Urine VISTA NEGATIVE (< 25 ng/mL); THC Urine VISTA NEGATIVE (< 50 ng/mL); Vista UDS pH Range 5
== END | disposition home or self-care (01) ==
PROVIDERS: PCP Family Medicine; Referring Provider Anesthesiology Pain Medicine; Visit Provider Anesthesiology Pain Medicine
DX: F11.20 Opioid dependence, uncomplicated (principal)
CPT/HCPCS: 80307

== ENCOUNTER 2022-06-09 06:12 | Day surgery (SDC) | payer MEDICAID, SELFPAY ==
--- NOTE | 2022-06-08 16:41 | PCM.HP.BLA ---
History and Physical Date of Admission: 06/09/22 HISTORY OF PRESENT ILLNESS 47 year old woman presents with a MRSA scar contour deformity left chin that she sustained 2 years ago.? She developed a MRSA abscess that required surgery on 05/01/20 where she underwent surgical preparation left chin with incision and drainage and excisional debridement abscess involving underlying muscle (7.5 cm2) and surgical preparation upper anterior neck with incision and drainage and excisional debridement abscess involving underlying muscle (6.25 cm2).? The wounds were left open and treated with Silver dressing changes and antibiotics until healed.? The left chin scar is itchy and leads to indentation deformity when she animates.? The upper anterior neck scar does not bother her at this time.? She denies recent infection.? She denies any recent trauma.? She presents at this time for further evaluation and treatment. PAST MEDICAL HISTORY Alcohol use Anxiety Back pain Depression Easy bruising Excessive bleeding Gastric reflux Headache History of methicillin resistant staphylococcus aureus (MRSA) History of pain when walking Hx of fracture of ankle Hypertension Late effect of facial wound Leg cramps Migraine headache Non-smoker Pain Tumors Unspecified open wound of unspecified part of neck, sequela Vision problems Wears dentures PAST SURGICAL HISTORY History of ankle surgery History of incision and drainage Hx laparoscopic cholecystectomy Hx of hysterectomy Hx of nasal septoplasty Stomach tumor (benign) ALLERGIES bupropion MEDICATIONS Omeprazole [Prilosec] tizanidine atenolol buspirone rizatriptan buprenorphine transdermal patch (Butrans) sertraline FAMILY HISTORY Mother - Anxiety, Arthritis, Depression, Diabetes, High cholesterol, Osteoporosis, Hypertension Sister - Anxiety, Depression, Hypertension, STD (female) Grandmother - Arthritis, Depression, Hypertension Grandfather - Hypertension, Arthritis SOCIAL HISTORY Smoking Status:? Never smoker alcohol intake:? current substance use type:? does not use REVIEW OF SYSTEMS General - Denies fever, fatigue, and weight loss.? History of MRSA. Eyes - Denies cataracts and glaucoma. ENT - Denies nasal congestion and sore throat. Endocrine - Denies excessive thirst and urination. Skin - Denies suspicious lesions and skin cancer.? Has MRSA scar contour deformity left chin. Musculoskeletal - Denies joint pain, joint stiffness, weakness of muscles and joints, back pain.? Has arthritis. Neuro - Has headaches. Cardiovascular - Denies chest pain, fatigue, and shortness of breath with exertion. Has hypertension. Psych - Denies anxiety and depression. Respiratory - Denies chronic cough and shortness of breath. Gastrointestinal - Denies nausea, vomiting, diarrhea, and constipation.? Has GERD. Hematologic - Denies abnormal bruising and bleeding. Genitourinary - Denies hematuria and urinary frequency. ? PHYSICAL EXAMINATION General - Alert and Oriented HEENT - PERRL. EOMI.? Throat is clear.? On the left chin is a MRSA scar contour deformity that measures 2 x 1.5 cm.? Deformity is more noticeable with animation.? Lateral to the scar is some muscle that tends to bulge with animation.? The scar is mobile.? Slightly discolored.? No ulceration.? Scar is nontender. Neck - Supple and nontender.? No cervical adenopathy.? On the upper anterior neck is a MRSA scar that is flat.? Measures 1.8 x 1 cm.? Slightly discolored.? The scar is mobile.? No ulceration.? Scar is nontender. Lungs - Clear to auscultation. Heart - Regular rate and rhythm. Abdomen - Soft and nondistended. Extremities - FROM. No axillary adenopathy.? Radial pulses are palpable. Neuro - CN II-XII grossly intact. Psych - Normal mood and affect. ASSESSMENT 1.? 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 2.? 1.8 cm MRSA scar upper anterior neck. 3.? History of MRSA. 4.? History of incision and drainage. PLAN Recommend excisional debridement MRSA scar contour deformity left chin and send the tissue to Pathology for analysis to rule out carcinoma and to Microbiology for culture.? A positive culture will necessitate antibiotic therapy. Will treat perioperatively with Vancomycin because of her history of MRSA. Reconstruction will be with advancement chin flaps and/or a melolabial transposition skin flap. The upper anterior neck scar doesn't bother her at this time so will leave alone for now. Surgery can be done on an outpatient basis under local anesthesia and IV sedation. Patient was informed of the risks and complications of the procedure including alternatives to surgery.? These were discussed with the patient personally.? Patient voices understanding and wishes to proceed. Some of the risks and complications were included in a form from the [employer].
[2022-06-09] VITALS (8 sets, daily range): BP systolic 109–133; BP diastolic 63–82; PULSE 56–65; RESP 14–16; TEMP 36.5–37.1; O2SAT 96–100; BMI 41.8
[2022-06-09] MEDS: Lactated Ringers 1,000 ML 15 ML IV ×3 (06:44→10:31)
--- NOTE | 2022-06-09 07:30 | SCAR_PTH ---
PATIENT: FARAZ TEJEDA LOC: [facility] [place] U#:[id number] AGE/SX: 47/F ROOM: RE06/09/[address]: Dr. Benjamin Parnell MD : 1975 BED: DIS: 06/09/2022 SPEC #: [id number] RECD: 06/09/22 11:30 STATUS: PIYUSH RESrinivasan #: [id number] MARGARITA: 06/09/22 07:[address]: Benjamin Parnell DEPT: SURGICAL PATHOLOGY RECD BY: Maggie Noriega ENTERED: 06/09/22 11:51 SP TYPE: Scar OTHR DR: Dr. Aftab Sevilla MD Tissues: CICATRIX/SCAR Procedures: Surgery Specimen Level III HEADER OPERATION: Surgical preparation chin with excisional debridement PRE-OP DIAGNOSIS: 2 cm MRSA scar contour deformity left chin; 1.8 cm MRSA scar upper anterior neck TISSUE SUBMITTED: 2 cm MRSA scar contour deformity left chin MICROSCOPIC DIAGNOSIS Skin lesion left chip, excision: Cicatrix. Mild solar elastosis. AM:debbi 06/10/2022 MICROSCOPIC DESCRIPTION Slides are reviewed. GROSS DESCRIPTION Received in fixative is one container labeled with the patient's name and designated 2 cm MRSA scar contour deformity left chin. The specimen consists of a piece of brown-white skin measuring 2.2 x 1.2 cm and up to 0.3 cm in thickness. A suture is noted at one edge of the specimen that is presumed to be 12 o?clock and inked. The presumed margins are inked as follows: 12 o?clock ? black, 6 o?clock ? blue, 3 o?clock ? green and 9 o?clock ? yellow. The specimen is serially sectioned and submitted entirely in two cassettes. Cassette 1 contains the presumed 3 and 9 o?clock margins. / SJ:debbi 06/09/2022 TC:5 CPT: 71797
[2022-06-09] MEDS: Vancomycin IV 1,000 MG/200 ML BAG 200 MG IV (07:40)
[2022-06-09] MEDS: Lidocaine 1% /Epi 1:100 (20ml) 20 ML Vial (08:07)
[2022-06-09] MEDS: Mupirocin Ointment 22gm Tube 1 APPLIC (10:58)
--- NOTE | 2022-06-09 11:04 | OP.PCM_ITS ---
Problems Associated Problem List Diagnoses (1) Scar adherent: (2) Late effect of facial wound: (3) History of methicillin resistant staphylococcus aureus (MRSA): (4) History of incision and drainage: Report of Operation Date of Procedure: 06/09/22 Pre-Operative Diagnosis: 1. 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 2. 1.8 cm MRSA scar upper anterior neck. 3. History of MRSA. 4. History of incision and drainage. Post-Operative Diagnosis: Same. Surgery/Procedure Performed:: 1. Surgical preparation left chin with excisional debridement MRSA scar contour deformity. 2. Reconstruction with horizontal triangular V-Y advancement skin flap from right chin (7.5 cm2) and bilobed transposition skin flap from left upper anterior neck (8 cm2). Description of Surgical Findings:: 47 year old woman presents with a MRSA scar contour deformity left chin that she sustained 2 years ago.? She developed a MRSA abscess that required surgery on 05/01/20 where she underwent surgical preparation left chin with incision and drainage and excisional debridement abscess involving underlying muscle (7.5 cm2) and surgical preparation upper anterior neck with incision and drainage and excisional debridement abscess involving underlying muscle (6.25 cm2).? The wounds were left open and treated with Silver dressing changes and antibiotics until healed.? The left chin scar is itchy and leads to indentation deformity when she animates.? The upper anterior neck scar does not bother her at this time.? She denies recent infection.? She denies any recent trauma.? Patient was informed of the risks and complications of the procedure including alternatives to surgery. These were discussed with the patient personally. Patient voices understanding and wishes to proceed. Some of the risks and complications were included in a form from the [employer]. I used Gregg absorbable hemostat. Reference Number - [id number]. Lot Number - [id number]. Expiration - August 30, 2026. Surgeon: Benjamin Parnell MD soil sampler: Nathalia Barksdale RNFA Type of Anesthesia: General Anesthesiologist: Leoncio Atkinson MD and Reyna Wilkinson CRNA and Anastacia Duque CRNA Specimen's removed: MRSA scar contour deformity left chin to Pathology and Microbiology. Drains: None. Estimated Blood Loss (mL): 50. Description of Procedure: Patient was taken to OR in supine position and was placed under general anesthesia. The face and neck areas were prepped and draped in the usual fashion. SCD's were placed for DVT prophylaxis. Perioperative antibiotics were given intravenously. Using xylocaine with epinephrine, the MRSA scar contour deformity left chin was infiltrated. After waiting 5 minutes for the anesthetic to take effect, I designed a horizontal triangular flap from the right chin to be advanced in a V-Y fashion into the left chin MRSA defect. Because the defect is at the far end of the left chin, one single flap from the chin is not going to close the entire defect. I proceeded with surgical preparation of the left chin with excisional debridement MRSA scar contour deformity down to the underlying muscle. The scar deformity was adherent to the underlying muscle. Some of the muscle was excised and debrided. After excision, I placed a suture at the 12 oclock position for pathology orientation. The lesion was sent to Patholgy for analysis to rule out carcinoma and to Microbiology for culture. A positive culture will necessitate antibiotic therapy. The size of the defect left chin after the excisional debridement was 2 x 1.5 cm. I made incisions in the horizontal triangular flap from the right chin and dissected through the subcutaneous tissue until the muscle was seen. I was able to advance the flap to cover about 50% of the defect with minimal tension and minimal distortion. The superior incision was made in the labiomental crease. The other half of the defect will be closed with a bilobed flap from the left anterior upper neck. Incisions were made as the flap was elevated on a subcutaneous pedicle at the level of the underlying muscle. It was easily transposed into the remaining defect with minimal tension and minimal distortion. Hemostasis was obtained with electrocautery. With the amount of dissection, I sprayed Gregg absorbable hemostat into the wound to minimize seroma formation. After the flaps were advanced and transposed into the left chin defect, the wounds were closed in a layered fashion with 5-0 Monocryl interrupted sutures for the deep dermis and subcutaneous tissue. The skin was approximated with 6-0 Prolene simple interrupted sutures for the chin and 5-0 Prolene simple interrupted sutures for the upper neck. Steri-strips were applied followed by antibiotic ointment and a 4x4 gauze compression dressing. There was no distortion noted on the lower lip. Patient tolerated the procedure well and was sent to PACU in satisfactory condition. Patient will be sent home on antibiotics and pain medication. She will keep her head elevated during the initial postoperative period and will be on a lifting restriction as well. Patient will followup in a week for a wound check and for discussion of the pathology report and for discussion of the microbiology report. A positive culture will necessitate antibiotic therapy. The sutures will be removed as well. Grafts/Implants Used: Gregg. Procedure Start Time: 08:07 Procedure Stop Time: 11:00 Complications None. Admit VTE Documentation VTE Present on Admission: No VTE Mechan Device Prophylaxis: SCD's VTE Pharm Prophylaxis ordered?: No Addendum Addendum: Surgery Charges CPT - 19429 ICD-10 - L90.5, S01.80xS, Z86.14, Z98.890 75995 L90.5, S01.80xS, Z86.14, Z98.890 75394 L90.5, S01.80xS, Z86.14, Z98.890
--- NOTE | 2022-06-09 12:08 | DCINST_ITS ---
Discharge Instructions Diet Discharge Diet: No restrictions Activity Discharge Activity: May Not Drive (until seen in the office), May Shower (in two days from the neck down. Wash face gently in the sink. Keep operative dressing dry.) and - (keep head elevated. No heavy lifting.) May shower in (days): 2 (in two days from the neck down. Wash face gently in the sink. Keep operative dressing dr) May resume sexual activity in: 10-14 days Ice area for (Minutes): 5 (and prn for facial swelling.) Weight Bearing Status: Weight bearing as tolerated Lifting Restrictions: 10 lbs. Keep extremity elevated above heart level: - (elevate head) Dressing / Incision Call your doctor if your incision/area has: Continuous Slow Oozing, Sudden Increased Bleeding, Increased Pain/ Swelling, Increased Redness, Foul Smelling Discharge and Swelling at the incision site Call your doctor if you observe: Fever of 101 or Higher, Coldness, Increased Pain, Shortness of breath, Chest pain, Calf discomfort and Uncontrolled pain Suture Line Care: - (after operative dressing removed in the office, apply antibiotic ointment to suture lines daily) Change Dressing in: leave in place till F/U (will remove operative dressing in the office.) Cleanse incision/area with: Keep Dressing Clean & Dry (may shower in 2 days from the neck down. Wash face gently in the sink. ) Follow Up Care Please Follow Up With: Benjamin Parnell MD When: one week. Call [phone] for appt. Test Results: Test results from this visit will be discussed in further detail at your follow- up appointment, if applicable. Discharge Plan Admission Primary Reason for Your Visit: excision MRSA scar contour deformity left chin Attending Provider: Benjamin Parnell Primary Care Provider: Aftab Sevilla Discharge Orders/Prescriptions Prescriptions: New doxycycline hyclate 100 mg capsule 100 mg PO BID Qty: 20 0RF L.acidoph,saliva-B.bif-S.therm [Acidophilus Probiotic Blend] 175 mg capsule 1 cap PO DAILY Qty: 20 0RF oxycodone-acetaminophen [Percocet] 5-325 mg tablet 1 tab PO Q6H PRN (Reason: pain (scale score 7-10)) 7 Days Qty: 28 0RF Rx Instructions: 28 tabs (twenty-eight) Continued Omeprazole [Prilosec] 40 MG capsule 40 mg PO BID Label Comments: REFLUX tizanidine 4 MG capsule 4 mg PO TID PRN (Reason: Muscle Spasm) sertraline 100 mg tablet 200 mg PO BID atenolol 50 MG tablet 50 mg PO 1200 Label Comments: BP Rx Instructions: Hold for heart rate less than 60/min or systolic blood pressure less than 100 mmHg buspirone 5 mg tablet 5 tab PO DAILY rizatriptan 10 mg tablet 1 tab PO PRN PRN (Reason: Migraine Headache) Label Comments: TAKE 1 TABLET BY MOUTH NEEDED FOR MIGRAINE HEADACHE Referrals / Follow Up: Aftab Sevilla MD [Primary Care Provider] - Disposition Disposition (needs filled in before D/C Order can be placed): Home, Self Care
[2022-06-09] MEDS: oxyCODONE 5 MG Tablet 10 MG PO (12:37)
== END 2022-06-09 13:57 | disposition home or self-care (01) ==
LOC: SDC 06:13 → AC 06:14
PROVIDERS: PCP Family Medicine; Referring Provider Surgery; Visit Provider Surgery
PROC: (CPT 15004; principal; 2022-06-09 07:20)
DX: L90.5 Scar conditions and fibrosis of skin (principal); I10 Essential (primary) hypertension; Z86.14 Personal history of Methicillin resistant Staphylococcus aureus infection; Z98.890 Other specified postprocedural states; S01.80XS Unspecified open wound of other part of head, sequela; L57.8 Other skin changes due to chronic exposure to nonionizing radiation; W89.9XXA Exposure to unspecified man-made visible and ultraviolet light, initial encounter; S11.90XS Unspecified open wound of unspecified part of neck, sequela; K21.9 Gastro-esophageal reflux disease without esophagitis; F32.A Depression, unspecified
CPT/HCPCS: 15004; 00300; 87070; 87075; 87077; 87102; 87176; 87205; 87206; 88304; J7120; J2405

== ENCOUNTER 2023-11-29 22:02 | Emergency (ER) | payer MEDICAID, SELFPAY ==
[2023-11-29 22:03] VITALS: BP 151/102; PULSE 75; RESP 18; TEMP 36.8; O2SAT 98; BMI 44.7
--- NOTE | 2023-11-29 22:10 | RAD_ITS ---
EXAM: XR RIGHT KNEE COMPLETE, 4 OR MORE VIEWS CLINICAL INDICATION: fall TECHNIQUE: Four or more views of the right knee. COMPARISON: Previous right knee radiographs of 11/10/2019. FINDINGS: BONES/JOINTS: Minimal degenerative spurring is developed about the medial and lateral compartments of the knee. Joint spaces are preserved. A small-moderate suprapatellar knee effusion has developed. No acute fracture. No subluxation. Normal alignment. No sclerotic or destructive changes observed. SOFT TISSUES: No soft tissue swelling or gas. No radiopaque foreign body. RAD/Knee 4 or More Views IMPRESSION: Interval development of minimal degenerative spurring about the medial and lateral compartments. Knee effusion. No acute fracture or dislocation identified. Electronically Signed: Davi Perry MD at 23:25 EDT ,
--- NOTE | 2023-11-29 22:56 | ED.VIS.LOWEX ---
HPI History of Present Illness HPI Narrative: Patient presents with right knee pain that began yesterday. Patient states she was trimming hedges when she felt pain in her right knee. Patient states she heard a pop in her knee. Patient states her pain has been constant since yesterday. Patient states her pain is worse with complete extension and complete flexion. Patient states it does get better with rest. Patient denies any paresthesias or weakness. Patient denies any other injuries. Chief Complaint: Lower Extremity Injury Informant: patient Onset/Context/Timing Onset: Yesterday Context: Sudden Onset Timing: Continuous Location: Medial aspect of the right knee Worsened by: Complete flexion and complete extension Relieved by: Rest Associated Symptoms Associated Symptoms: Negative for Parasthesia, Weakness or Loss of Funtion PFSH PFS Medical History Bradycardia BPPV (benign paroxysmal positional vertigo) Cholelithiasis Diaphragmatic hernia Ventricular hypertrophy Dizziness DDD (degenerative disc disease), lumbar Depression GERD (gastroesophageal reflux disease) HTN (hypertension) Morbid obesity Hypertrophic scar of skin Arthritis Shortness of breath on exertion Vision problems Headache Anxiety Back pain Migraine headache Non-smoker Hx of fracture of ankle History of methicillin resistant staphylococcus aureus (MRSA) Home Medications ?Medication ?Instructions ?Recorded ?Last Taken ?Type Omeprazole [Prilosec] 40 mg PO BID gerd 07/17/16 06/09/22 04:00 History atenolol 50 mg tablet 50 mg PO 1200 blood pressure 01/30/21 06/09/22 04:00 History buspirone 5 mg tablet 5 tab PO DAILY 09/26/21 06/09/22 04:00 History rizatriptan 10 mg tablet 1 tab PO PRN PRN Migraine Headache 09/26/21 Unknown History gabapentin 300 mg capsule 300 mg PO BID 30 days #60 caps 12/01/22 Unknown Rx celecoxib 200 mg capsule 200 mg PO BID 11/01/23 Unknown History cholecalciferol (vitamin D3) 125 125 mcg PO QDAY 11/01/23 Unknown History mcg (5,000 unit) capsule hydroxyzine HCl 25 mg tablet 25 mg PO TID PRN 11/01/23 Unknown History meclizine 25 mg tablet 25 mg PO BID-QID PRN 11/01/23 Unknown History paroxetine HCl 40 mg tablet 60 mg PO QDAY 11/01/23 Unknown History tirzepatide (weight loss) 2.5 2.5 mg subcut QWEEK 11/01/23 Unknown History mg/0.5 mL subcutaneous pen injector (Zepbound) tizanidine 4 mg capsule 4 mg PO QHS Muscle Spasm 11/01/23 Unknown History hydrocodone-acetaminophen 5-325mg 1 tab PO Q6H PRN PRN Pain 3 days 11/29/23 Unknown Rx 5mg-325mg #10 TABLETS Allergy/AdvReac Type Severity Reaction Status Date / Time bupropion Allergy Itching Verified 11/29/23 22:05 Family History Mother Anxiety Arthritis Depression Diabetes High cholesterol Osteoporosis Hypertension Sister Anxiety Depression Hypertension STD (female) Grandmother Arthritis Depression Hypertension Grandfather Hypertension Arthritis Surgical History History of excision of lesion Stomach tumor (benign) History of ankle surgery Hx of nasal septoplasty Hx of hysterectomy Hx laparoscopic cholecystectomy Social History Smoking Status: Never smoker alcohol intake: current details: A Couple Of Drinks Per Month substance use type: does not use what type of physical activity do you participate in: none ROS ROS ED Constitutional Constitutional ED: Denies chills or fever(s) Eyes Eyes: Denies blurry vision or change in vision ENT ENT ED: Denies rhinorrhea or sore throat Cardiovascular Cardiovascular: Denies chest pain or palpitations Respiratory/Chest Respiratory/Chest: Denies cough or dyspnea Gastrointestinal Gastrointestinal: Denies nausea or vomiting Genitourinary Genitourinary ED: Denies dysuria or hematuria Musculoskeletal Musculoskeletal: Reports back pain and neck pain Integumentary Denies abscess or rash Neurologic Neurologic: Denies headache(s) or weakness Allergic/Immunologic Allergic/Immunologic ED: Denies mouth swelling or urticaria EXAM Physical Exam Const Vital Signs: 11/29/23 22:03 Temperature 98.2 F Temperature Source Oral Pulse Rate 75 Respiratory Rate 18 Blood Pressure 151/102 H Blood Pressure Mean 118 Pulse Ox 98 Oxygen Delivery Method Room Air Positive well nourished and well developed General Appearance ED: well developed and NAD HEENT Reports moist mucous membranes Neck full ROM and supple Extremity Extremity Narrative: There is tenderness over the medial aspect of the right knee. There is no effusion noted. Range of motion was limited and incomplete flexion and complete extension secondary to pain. Varus and valgus stress test were negative. Strength is 5/5 bilaterally in the lower extremities. Extensor mechanism is intact. There are no sensory deficits noted. Pedal pulses are equal bilaterally. Neuro oriented x3, CN's II-XII intact bilaterally, moves all extremities and no sensory deficits noted Sensorium / Orientation: alert Motor Exam: strength 5/5 throughout Psych mental status grossly normal MDM MDM MDM Narrative Medical decision making narrative: Differential diagnosis includes sprain, contusion, meniscus tear, medial collateral ligament injury, and occult fracture. X-rays of the right knee will be obtained to assess for occult fracture. Radiography Diagnostic Testing: X-rays of the right knee were obtained. There are 4 views. On my independent interpretation, there is no acute fracture or dislocation. There is no loose body noted. There are some degenerative changes noted. Radiologist also interpreted the x-rays and agrees. Treatment and Re-Evaluation Narrative: Patient was advised of her findings. Patient was instructed to ice and elevate the right knee. Patient was advised that this could be a meniscus injury or possibly even a ligamentous injury. Patient was instructed to follow-up with her primary care physician in 5 to 7 days. Patient was instructed to return if worse in any way. Patient understood and was agreeable with the plan. All questions were answered. Discharge Plan Triage Chief Complaint: Lower Extremity Injury ED Provider: Leoncio Phelps Dx/Rx/DC Orders Clinical Impression: Acute pain of right knee, HTN (hypertension) Instructions: ED Knee Pain of Uncertain Cause Prescriptions: New hydrocodone-acetaminophen 5-325 mg tablet 1 tab PO Q6H PRN PRN (Reason: Pain) 3 Days Qty: 10 0RF No Action paroxetine HCl 40 mg tablet 60 mg PO QDAY hydroxyzine HCl 25 mg tablet 25 mg PO TID PRN cholecalciferol (vitamin D3) 125 mcg (5,000 unit) capsule 125 mcg PO QDAY celecoxib 200 mg capsule 200 mg PO BID Zepbound 2.5 mg/0.5 mL pen injector 2.5 mg subcut QWEEK Rx Instructions: for 4 weeks meclizine 25 mg tablet 25 mg PO BID-QID PRN Omeprazole [Prilosec] 40 MG capsule 40 mg PO BID Patient Comments: REFLUX tizanidine 4 mg capsule 4 mg PO QHS atenolol 50 MG tablet 50 mg PO 1200 Patient Comments: BP Rx Instructions: Hold for heart rate less than 60/min or systolic blood pressure less than 100 mmHg buspirone 5 mg tablet 5 tab PO DAILY rizatriptan 10 mg tablet 1 tab PO PRN PRN (Reason: Migraine Headache) Patient Comments: TAKE 1 TABLET BY MOUTH NEEDED FOR MIGRAINE HEADACHE gabapentin 300 mg capsule 300 mg PO BID 30 Days Qty: 60 3RF Primary Care Provider: Aftab Sevilla Referrals: Aftab Sevilla MD [Primary Care Provider] - 5-7 Days Print Language: Croatian Disposition Disposition: Home, Self Care
[2023-11-29 22:58] VITALS: BP 151/102; PULSE 69; RESP 18; TEMP 36.8; O2SAT 98
[2023-11-30] MEDS: HYDROcodone Bitartrate/Apap 5/325 Tablet PO (00:13)
== END 2023-11-30 00:40 | disposition home or self-care (01) ==
PROVIDERS: Emergency Provider Emergency Medicine; PCP Family Medicine; Visit Provider Emergency Medicine
DX: M25.561 Pain in right knee (principal); I10 Essential (primary) hypertension; X58.XXXA Exposure to other specified factors, initial encounter; Y93.89 Activity, other specified; K21.9 Gastro-esophageal reflux disease without esophagitis; Z79.899 Other long term (current) drug therapy; F41.9 Anxiety disorder, unspecified; G43.909 Migraine, unspecified, not intractable, without status migrainosus; F32.A Depression, unspecified; Z90.710 Acquired absence of both cervix and uterus; Z90.49 Acquired absence of other specified parts of digestive tract
CPT/HCPCS: 73564; 99284; J7030; A4216

== ENCOUNTER → 2023-12-23 | Outpatient (CLI) | payer MEDICAID, SELFPAY ==
[2023-12-23 18:51] LABS: Amphetamine Urine VISTA NEGATIVE (<1000 ng/mL); Barbiturate Urine VISTA NEGATIVE (< 200 ng/mL); Benzodiazepine Urine VISTA NEGATIVE (< 200 ng/mL); Cocaine Urine VISTA NEGATIVE (< 300 ng/mL); Ecstacy Urine VISTA NEGATIVE (< 500 ng/mL); Methadone Urine VISTA NEGATIVE (< 300 ng/mL); PCP Urine VISTA NEGATIVE (< 25 ng/mL); THC Urine VISTA NEGATIVE (< 50 ng/mL); Vista UDS pH Range 4
== END | disposition home or self-care (01) ==
PROVIDERS: PCP Family Medicine; Referring Provider Anesthesiology Pain Medicine; Visit Provider Anesthesiology Pain Medicine
DX: F11.20 Opioid dependence, uncomplicated (principal)
CPT/HCPCS: 80307

== ENCOUNTER 2024-12-09 12:50 | Emergency (ER) | payer MEDICAID, SELFPAY ==
[2024-12-09 12:51] VITALS: BP 163/96; PULSE 76; RESP 16; TEMP 36.7; O2SAT 99; BMI 48.2
--- NOTE | 2024-12-09 13:48 | EX.ED.DYSGE1 ---
HPI History of Present Illness Chief Complaint: Wound Check Narrative Narrative: Patient is a 49-year-old female presenting to the emergency department for concern of cellulitis on her abdomen. 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 She denies any IV drug use, denies diabetes history. States that 2 days ago she noticed the area on her left sided abdomen. States that initially was the size of a marble. States over the past 2 days it has gotten larger. Denies any fever, chills, nausea or vomiting. Denies any abdominal pain. PFSH PFS Medical History Bradycardia BPPV (benign paroxysmal positional vertigo) Cholelithiasis Diaphragmatic hernia Ventricular hypertrophy Dizziness DDD (degenerative disc disease), lumbar Depression GERD (gastroesophageal reflux disease) HTN (hypertension) Morbid obesity Hypertrophic scar of skin Arthritis Shortness of breath on exertion Vision problems Headache Anxiety Back pain Migraine headache Non-smoker Hx of fracture of ankle History of methicillin resistant staphylococcus aureus (MRSA) Home Medications ?Medication ?Instructions ?Recorded ?Last Taken ?Type Omeprazole [Prilosec] 40 mg PO BID gerd 07/17/16 06/09/22 04:00 History rizatriptan 10 mg tablet 1 tab PO PRN PRN Migraine Headache 09/26/21 Unknown History celecoxib 200 mg capsule 200 mg PO BID 11/01/23 Unknown History cholecalciferol (vitamin D3) 125 125 mcg PO QDAY 11/01/23 Unknown History mcg (5,000 unit) capsule hydroxyzine HCl 25 mg tablet 25 mg PO TID PRN 11/01/23 Unknown History meclizine 25 mg tablet 25 mg PO BID-QID PRN 11/01/23 Unknown History paroxetine HCl 40 mg tablet 60 mg PO QDAY 11/01/23 Unknown History tizanidine 4 mg capsule 4 mg PO QHS Muscle Spasm 11/01/23 Unknown History lisinopril 10 mg tablet 10 mg PO QDAY 12/08/23 Unknown History nifedipine 30 mg tablet,extended 30 mg PO QDAY 12/08/23 Unknown History release topiramate 25 mg tablet 25 mg PO BID 12/08/23 Unknown History cephalexin 500 mg capsule 500 mg PO Q6 7 days #24 CAPSULES 12/09/24 Unknown Rx doxycycline monohydrate 100 mg 100 mg PO BID #14 CAPSULES 12/09/24 Unknown Rx capsule Allergy/AdvReac Type Severity Reaction Status Date / Time bupropion Allergy Itching Verified 12/09/24 12:53 Family History Mother Anxiety Arthritis Depression Diabetes High cholesterol Osteoporosis Hypertension Sister Anxiety Depression Hypertension STD (female) Grandmother Arthritis Depression Hypertension Grandfather Hypertension Arthritis Surgical History History of excision of lesion Stomach tumor (benign) History of ankle surgery Hx of nasal septoplasty Hx of hysterectomy Hx laparoscopic cholecystectomy Social History Smoking Status: Never smoker alcohol intake: current details: A Couple Of Drinks Per Month substance use type: does not use what type of physical activity do you participate in: none ROS ROS ED ROS Narrative see HPI EXAM Physical Exam Narrative Exam Narrative: Vital signs: Reviewed General: Alert and oriented. No acute distress HEENT: Head is normocephalic and atraumatic, sinuses nontender, pupils equal round and reactive. Nares are patent. Oropharynx and throat exams normal. Neck: Supple without lymphadenopathy nontender Cardiovascular: Regular rate and rhythm, no murmurs. No rubs or gallops. Normal S1 and S2 Respiratory: Clear to auscultation bilaterally. No wheezes, rales, rhonchi Abdominal: Soft and nontender. Normal bowel sounds. No guarding or rebound. Nonsurgical abdomen Extremities: No tenderness. No bruising. Normal range of motion. Normal sensation. Skin: Left sided abdomen with 7 cm by 4 cm area of erythema and warmth. There is no significant fluctuance. No drainage. No open wound noted. No crepitus. The rest of the physical exam is unremarkable Const Vital Signs: 12/09/24 12:51 12/09/24 14:06 Temperature 98.1 F 98.8 F Temperature Source Oral Pulse Rate 76 87 Respiratory Rate 16 18 Blood Pressure 163/96 H 140/75 H Blood Pressure Mean 118 96 Pulse Ox 99 97 Oxygen Delivery Method Room Air MDM MDM MDM Narrative Medical decision making narrative: Patient is a 49-year-old female presenting emergency department for concern of this. Patient seen and examined. Vitals are stable. Patient resting bed comfortably no acute distress. Patient has cellulitis. There is no evidence of abscess that could the I&D here in the ED. She has a history of MRSA and will cover for this here. She has no signs of sepsis. Vitals are all stable. The area of erythema was marked with a skin marker. She will be started on Keflex and Doxy. First dose given here. Instructed to follow-up with her PCP as soon as possible and return to the ED with any new or worsening symptoms including fever, chills, nausea, vomiting, feeling unwell or the wound extending outside of the marked lines. Patient understands. She asks if there is any indication for her to be admitted to the hospital at this time for the cellulitis. I explained to her that there is none and that she needs to closely watch the area at home and if she develops any worsening signs of infection she needs to return immediately and at that time if she has failed outpatient oral antibiotics she may need to be admitted for IV antibiotics however that is not necessary at this time. Patient agreeable with plan. Patient discharged from the Emergency Department. I do not feel that the patient's evaluation reveals any acute reason for admission at this time. I instructed them to either follow-up with their primary care physician or promptly return to the Emergency Department for reevaluation should symptoms worsen or new symptoms develop. I explained what symptoms would indicate the need to return to the emergency department. Shared decision making was used. The patient voiced understanding of the treatment plan and is agreeable with it. Clinical impression Cellulitis History & Record Review Discussion w/independent historian: Patient Discharge Plan Triage Chief Complaint: Wound Check ED Provider: Makenzie Gary Dx/Rx/DC Orders Clinical Impression: Cellulitis Instructions: Cellulitis Dc Prescriptions: New cephalexin 500 mg capsule 500 mg PO Q6 7 Days Qty: 24 0RF doxycycline monohydrate 100 mg capsule 100 mg PO BID Qty: 14 0RF No Action paroxetine HCl 40 mg tablet 60 mg PO QDAY hydroxyzine HCl 25 mg tablet 25 mg PO TID PRN cholecalciferol (vitamin D3) 125 mcg (5,000 unit) capsule 125 mcg PO QDAY celecoxib 200 mg capsule 200 mg PO BID meclizine 25 mg tablet 25 mg PO BID-QID PRN lisinopril 10 mg tablet 10 mg PO QDAY nifedipine 30 mg tablet extended release 30 mg PO QDAY topiramate 25 mg tablet 25 mg PO BID Omeprazole [Prilosec] 40 MG capsule 40 mg PO BID Patient Comments: REFLUX tizanidine 4 mg capsule 4 mg PO QHS rizatriptan 10 mg tablet 1 tab PO PRN PRN (Reason: Migraine Headache) Patient Comments: TAKE 1 TABLET BY MOUTH NEEDED FOR MIGRAINE HEADACHE Primary Care Provider: Aftab Sevilla Referrals: Aftab Sevilla MD [Primary Care Provider] - 2 Days Activity Restrictions/Additional Instructions: Take the 2 antibiotics as prescribed. You need to return to the ED if you develop fever, chills, nausea, vomiting, feeling unwell or the redness extending outside of the lines that were marked here. Your evaluation in the Emergency Department did not reveal any acute reason for admission. However, I want to emphasize that you may be early in the course of a disease process or illness even if it is not present. For this reason you should follow-up within 24 hours for reevaluation with either your primary care physician or if necessary back here in the Emergency Department. You should return to the Emergency Department immediately if your symptoms worsen or new symptoms develop. Print Language: Armenian Disposition Disposition: Home, Self Care Discharge Date/Time: 12/09/24 14:08
--- OUTSIDE RECORDS SUMMARY | 2024-12-09 13:53 | XMS RPT_ITS | CCD ---
Author Organization [facility] Care Team Providers Care [employer] Process Technician Name Role Phone Susan Sevilla MD Primary Care Provider Dr. Susan Sevilla Primary Care Provider Dr. Susan Sevilla Referring Provider Dr. Nani Parnell Attending Provider Dr. Skip Quinn Attending Provider Dr. Nani Parnell Referring Provider Dr. Nani Parnell Other Provider Susan Sevilla MD Primary Care Provider SUSAN SEVILLA Primary Care Unavailable Susan Sevilla MD Primary Care Provider Nate Winters MD Unavailable Susan Sevilla Primary Care Provider Hipolito DUARTE.NORI, Mary Unavailable Susan Sevilla Primary Care Unavailable Kaushik Zhou Attending Unavailable Kaushik Zhou Referring Unavailable Nani Parnell Attending Unavailable Roel, Susan Primary Care Unavailable Susan Sevilla Referring Unavailable Roel, Susan Primary Care Unavailable Colin Martinezril Attending Unavailable Susan Sevilla Referring Unavailable Roel, Susan Primary Care Unavailable Nani Parnell Attending Unavailable Nani Parnell Referring Unavailable Nani Parnell Attending Unavailable Roel, Susan Primary Care Unavailable Nani Parnell Referring Unavailable Nani Parnell Attending Unavailable Roel, Susan Primary Care Unavailable Nani Parnell Referring Unavailable Nani Parnell Attending Unavailable Roel, Susan Primary Care Unavailable Nani Parnell Referring Unavailable Nani Parnell Attending Unavailable Elderbrock, Susan Primary Care Unavailable Nani Parnell Referring Unavailable Nani Parnell Attending Unavailable Elderbrock, Susan Primary Care Unavailable Nani Parnell A Referring Unavailable Kelley Rogel Attending Unavail able Elderbrock, Susan Referring Unavailable Elderbrock, Susan Primary Care Unavailable Elderbrock, Susan Primary Care Unavailable Leoncio Phelps Attending Unavailable Selwyn GIFTED TEACHER.NORI, Neal Unavailable [phone] MARY MCMILLAN Attending Unavailabl e ELDERBROCK, SUSAN D Primary Care Unavailable ELDERBROCK, SUSAN D Primary Care Unavailable NEAL GOMEZ Attending Unavailable ELDERBROCK, SUSAN D Primary Care Unavailable JOHN NIEVES Referring Unavailable ELDERBROCK, SUSAN D Primary Care Unavailable ELDERBROCK, SUSAN D Primary Care Unavailable OKSANA KENNEY Attending Unavailable ELDERBROCK, SUSAN D Primary Care Unavailable ISABEL, LUPE Attending Unavailable ELDERBROCK, SUSAN Primary Care Unavailable VIANEY, NATE Attending Unavailable ELDERBROCK, SUSAN Primary Care Unavailable ISABEL, LUPE Attending Unavailable ELDERBROCK, SUSAN Primary Care Unavailable ISABEL, LUPE Attending Unavailable ELDERBROCK, SUSAN Primary Care Unavailable ISABEL, LUPE Attending Unavailable ELDERBROCK, SUSAN Primary Care Unavailable ISABEL, LUPE Attending Unavailable ELDERBROCK, SUSAN Primary Care Unavailable ISABEL, LUPE Attending Unavailable ELDERBROCK, SUSAN Primary Care Unavailable VIANEY, NATE Admitting Unavailable VIANEY, NATE Attending Unavailable ELDERBROCK, SUSAN Primary Care Unavailable Allergies Allergy Classification Reported Allergen(s) Allergy Type Date of Onset Reaction(s) Facility Aminoketones (3 sources) buPROPion Drug Allergy 12-30-2007 Itching [facility] (20 sources) buPROPion; Translations: [BUPROPION] Drug Allergy 12-30-2007 [facility] (1 source) buPROPion Drug Allergy 12-08-2023 [facility] Repository Medications Current Medications Medication Drug Class(es) Dates Sig (Normalized) Sig (Original) acetaminophen 325 mg / HYDROcodone bitartrate 5 mg oral tablet (20 sources) Opioid Agonist Start: 12-23-2023 HYDROcodone-acetam inophen ([place]) 5-325 MG tablet Take 2 tablets by mouth. 12/23/2023 Active Start: 06-11-2020 End: 06-18-2020 take 1 tablet by mouth twice daily Hydrocodone-Acetaminophen ([place]) 5-325 mg tablet Discontinued 1 TABLET PO TWICE A DAY 14 June 11, 2020 June 17, 2020 11:03pm Start: 05-27-2020 End: 06-05-2020 take 1 tablet by mouth twice daily Hydrocodone-Acetaminophen ([place]) 5-325 mg tablet Discontinued 1 TABLET PO TWICE A DAY 14 May 29, 2020 June 05, 2020 12:02am Start: 05-13-2020 End: 05-20-2020 take 1 tablet by mouth three times daily Hydrocodone-Acetaminophen ([place]) 5-325 mg tablet Discontinued 1 TABLET PO THREE TIMES A DAY 14 May 13, 2020 May 20, 2020 12:03am Start: 05-03-2020 End: 05-10-2020 take 1 tablet by mouth twice daily for pain Hydrocodone-Acetaminophen Discontinued 1 TABLET PO TWICE A DAY 15 May 03, 2020 May 10, 2020 12:03am For severe pain. Follow Dr. Zhou next week, first week of May Start: 04-22-2017 End: 05-03-2020 Hydrocodone-Acetaminophen ([place] or[place]) 1 EACH tablet Discontinued 1 EACH PO TWICE A DAY April 22, 2017 12:00am May 03, 2020 2:50pm acetaminophen 325 mg / oxyCODONE hydrochloride 5 mg oral tablet (1 source) Opioid Agonist Start: 06-09-2022 take 1 tablet by mouth every six hours Oxycodone-Acetaminophen (Percocet) 5-325 mg tablet Active 1 TABLET PO EVERY 6 HOURS 30 10June 09, 2022 28 tabs (twenty-eight) Start: 06-09-2022 take 1 tablet by damien th every six hours Oxycodone-Acetaminophen (Percocet) 5-325 mg tablet Active 1 TABLET PO EVERY 6 HOURS 30 10June 09, 2022 28 tabs (twenty-eight) amoxicillin 500 mg oral tablet (2 sources) Penicillin-class Antibacterial Start: 03-18-2022 End: 03-28-2022 take 1 tablet by mouth twice daily Amoxicillin 500 mg tablet Take 1 tablet by mouth twice daily for 10 days. 20 tablet 0 03/18/2022 03/28/2022 Active Comment on above: Take 1 tablet by damien th twice daily for 10 days. amoxicillin 875 mg / clavulanate 125 mg oral tablet (1 source) Penicillin-class Antibacterial Start: 09-28-2023 End: 10-05-2023 take 1 tablet by mouth twice daily amoxicillin-clavul anate potassium (AUGMENTIN) 875-125 mg per tablet Take 1 tablet by mouth two times a day for 7 days. 14 tablet 0 09/28/2023 10/05/2023 Active atenolol 50 mg oral tablet (20 sources) beta-Adrenergic Chavo Start: 04-27-2023 End: 09-15-2023 take 1 tablet by mouth once daily atenolol (Tenormin) 50 MG tablet Indications: Hypertension Take 50 mg by mouth daily. 08/02/2023 Active Start: 06-01-2022 End: 02-28-2023 take 1 tablet by mouth once daily atenolol (TENORMIN) 50 mg tablet Take 1 tablet by mouth once daily. 30 tablet 0 03/01/2023 Active Start: 06-16-2021 End: 12-22-2021 take 1 tablet by mouth once daily atenolol (TENORMIN) 50 mg tablet Take 1 tablet by mouth once daily. 90 tablet 0 12/23/2021 Active Start: 05-03-2020 End: 01-30-2021 Atenolol Active 50 MG PO 120 0 January 30, 2021 7:43am Hold for heart rate less than 60/min or systolic blood pressure less than 100 mmHg Start: 07-17-2016 End: 05-03-2020 take 50 mg by mouth once daily Atenolol Discontinued 5 0 MG PO DAILY July 16, 2016 11:00pm May 03, 2020 12:18pm Comment on above: Take 1 tablet by damien once daily. 168 hr buprenorphine 0.01 mg/hr transdermal system (1 source) Partial Opioid Agonist Start: 05-12-19 apply 10 ug transdermal route every week Buprenorphine (Butrans) 10 mcg/hour patch weekly Active 1 PATCH TD EVERY WEEK May 12, 2022 12:00am busPIRone hydrochloride 5 mg oral tablet (6 sources) Start: 09-27-19 take 5 tablets by mouth once daily Buspirone Active 5 TABLET PO DAILY September 25, 2021 11:00pm Start: 09-17-2021 End: 10-17-2021 take 1 tablet by mouth three times daily busPIRone (BUSPAR) 5 mg tablet Take 1 tablet by mouth three times daily. 90 tablet 5 09/17/2021 10/17/2021 Active Comment on above: [facility] celecoxib 200 mg oral capsule (20 sources) Nonsteroidal Anti-inflammatory Drug Start: End: take 1 capsule by mouth twice daily celecoxib (CELEBREX) 200 mg capsule Indications: Primary osteoarthritis of both knees Take 1 capsule by mouth twice daily 180 capsule 3 07/23/2023 Active Comment on above: Take 1 capsule by [facility] two times a day. Take 1 capsule by [facility] twice daily cholecalciferol 0.125 mg oral capsule (20 sources) Vitamin D Start: End: take 1 capsule by mouth once daily Cholecalciferol, Vitamin D3, (DIALYVITE VITAMIN D) 125 mcg (5,000 unit) cap Indications: Vitamin D deficiency Take 1 capsule by mouth once daily. 30 capsule 11 07/28/2023 Active Comment on above: Take 1 capsule by [facility] once daily. cyclobenzaprine hydrochloride 10 mg oral tablet (15 sources) Muscle Relaxant Start: End: take 1 tablet by mouth three times daily as needed for muscle spasms cyclobenzaprine (FLEXERIL) 10 mg tablet Indications: Muscle strain Take 1 tablet by mouth three times daily as needed for muscle spasm. 30 tablet 1 12/29/2022 03/29/2023 Active Comment on above: Take 1 tablet by [facility] three times daily as needed for muscle spasm. doxycycline hyclate 100 mg oral tablet (11 sources) Tetracycline-class Drug Start: End: take 1 tablet by mouth twice daily doxycycline (VIBRA-TABS) 100 mg tablet Take 1 tablet by mouth twice daily for 7 days. 14 tablet 0 12/25/2022 01/01/2023 Active Start: 06-09-2022 take 100 mg by mouth twice daily Doxycycline Hyclate Active 100 MG PO TWICE A DAY June 09, 2022 12:00am Start: 05-03-2020 End: 05-22-2020 take 100 mg by mouth twice daily Doxycycline Monohydrate Discontinued 100 MG PO TWICE A DAY May 03, 2020 12:00am May 22, 2020 7:30pm Comment on above: Take 1 tablet by damien twice daily for 7 days. hydrocortisone 25 mg/ml topical cream (2 sources) Corticosteroid Start: End: hydrocortisone 2.5 % cream Indications: Rash Apply 1 application to affected area twice daily for 10 days. Location: Rash 28 g 1 09/26/2021 10/06/2021 Active Comment on above: Apply 1 application to affected area twice daily for 10 days. Location: Rash hydrOXYzine hydrochloride 25 mg oral tablet (20 sources) Antihistamine Start: End: take 1 tablet by mouth every eight hours as needed hydrOXYzine HCl (Atarax) 25 MG tablet Take 25 mg by mouth every 8 hours as needed. 08/11/2023 Active Start: 08-11-2023 End: 07-24-2024 take 1 tablet by mouth three times daily as needed for anxiety hydrOXYzine HCl (ATARAX) 25 mg tablet Indications: Anxiety associated with depression Take 1 tablet by mouth three times a day as needed for anxiety. 30 tablet 2 01/26/2024 07/24/2024 Active iv contrast (will be provided with radiology test) (1 source) Start: 10-21-2023 End: 10-22-2023 iv contrast (will be provided with radiology test) Indications: Chronic cough , Abnormal chest x-ray CT Chest W -Inject, intravenously, once for 1 dose.No IV access, insert saline lock prior to the beginning of sedation, infusion, injection of imaging exam. Discontinue saline lock post exam. If Pt. has a central line or IVAD, may access for administration according to line specific nursing protocol. Once exam is complete flush line and de-access according to line specific nursing protocol in the CT contrast administration guidelines link. 1 Each 0 10/21/2023 10/22/2023 Active L.Acidoph,Saliva-B.B if-S.Therm (Acidophilus Probiotic Blend) 175 mg capsule (1 source) Start: 06-09-2022 take 1 capsule by mouth once daily L.Acidoph,Saliva-James Encinas (Acidophilus Probiotic Blend) 175 mg capsule Active 1 CAP PO DAILY June 09, 2022 12:00am lisinopril 10 mg oral tablet (20 sources) Angiotensin Converting Enzyme Inhibitor Start: 12-03-2023 End: 02-25-2025 take 1 tablet by mouth in the morning lisinopril 10 MG tablet Indications: Hypertension Take 10 mg by mouth in the morning. 12/03/2023 Active meclizine hydrochloride 25 mg oral tablet (20 sources) Antiemetic Start: 09-15-2023 End: 10-15-2023 take 1 tablet by mouth every six hours as needed for dizziness meclizine (Antivert) 25 MG tablet TAKE 1 TABLET BY MOUTH EVERY 6 HOURS NEEDED FOR DIZZINESS 09/15/2023 Active methylcellulose 500 mg oral tablet (2 sources) Start: 07-31-2022 End: 08-30-2022 take 1 tablet by mouth once daily Methylcellulose, Laxative, (FIBER THERAPY, M-CELLULOSE,) 500 mg tab Indications: Acute constipation Take 1 tablet by mouth once daily. 30 tablet 5 07/31/2022 08/30/2022 Active Comment on above: Take 1 tablet by damien th once daily. 24 hr NIFEdipine 30 mg extended release oral tablet (20 sources) Dihydropyridine Calcium Channel Chavo Start: 04-27-2023 End: 06-06-2023 take 1 tablet by mouth once daily NIFEdipine XL (ADALAT CC) 30 mg 24 hr tablet Take 1 tablet by mouth once daily. 30 tablet 5 06/07/2023 Active Start: 03-01-2023 End: 03-10-2024 take 1 tablet by mouth once daily NIFEdipine XL (Procardia XL) 30 MG 24 hr tablet Indications: Hypertension Take 30 mg by mouth daily. 03/01/2023 03/10/2024 Discontinued (Therapy completed) Start: 06-01-2022 End: 02-28-2023 take 1 tablet by mouth once daily NIFEdipine XL (ADALAT CC) 30 mg 24 hr tablet Take 1 tablet by mouth once daily. 30 tablet 0 03/01/2023 Active Start: 06-16-2021 End: 12-22-2021 take 1 tablet by mouth once daily NIFEdipine XL (ADALAT CC) 30 mg 24 hr tablet Take 1 tablet by mouth once daily. 90 tablet 0 12/23/2021 Active Start: 12-14-2014 End: 05-12-2022 Nifedipine Discontinued 30 M G PO 1200 December 13, 2014 11:00pm May 12, 2022 2:27pm Comment on above: Take 1 tablet by [facility] once daily. omeprazole 40 mg delayed release oral capsule (20 sources) Proton Pump Inhibitor Start: 4 End: 5 take 1 capsule by mouth in the morning omeprazole (PriLOSEC) [address] capsule Indications: Gastroesophageal Reflux Disease Take 40 mg by mouth in the morning and 40 mg in the evening. 06/07/2023 Active Start: 06-01-2022 End: 02-28-2023 take 1 capsule by mouth twice daily omeprazole (PRILOSEC) 40 mg capsule Take 1 capsule by mouth two times a day. 60 capsule 0 03/01/2023 Active Start: 07-17-2016 End: 12-22-2021 take 1 capsule by mouth twice daily Omeprazole (Prilosec) 40 MG capsule Active 40 MG PO TWICE A DAY July 16, 2016 11:00pm Comment on above: Take 1 capsule by [facility] twice daily. Take 1 capsule by [facility] two times a day. PARoxetine hydrochloride 20 mg oral tablet (20 sources) Serotonin Reuptake Inhibitor Start: End: 5 take 1 tablet by mouth once daily PARoxetine (PAXIL) 20 mg tablet Indications: Anxiety associated with depression Take 1 tablet by mouth once daily. Take with additional 40 mg tablet. 30 tablet 2 05/25/2024 Active Start: 10-18-2023 End: 01-16-2024 take 1 tablet by mouth once daily PARoxetine (PAXIL) 20 mg tablet Indications: Anxiety associated with depression Take 1 tablet by mouth once daily. Take with additional 40 mg tablet. 30 tablet 2 10/18/2023 Active Start: 09-03-2023 End: 10-16-2023 take 1 tablet by mouth once daily PARoxetine (PAXIL) 20 mg tablet Indications: Anxiety associated with depression Take 1 tablet by mouth once daily. Take with additional 40 mg tablet. 30 tablet 0 09/03/2023 10/16/2023 Discontinued Start: 08-11-2023 End: 11-20-2024 take 1 tablet by mouth once daily PARoxetine (PAXIL) 40 mg tablet Indications: Anxiety associated with depression Take 1 tablet by mouth once daily. 30 tablet 5 05/24/2024 11/20/2024 Active polyethylene glycol 3350 08137 mg powder for oral solution (2 sources) Osmotic Laxative Start: 07-31-2022 End: 08-30-2022 polyethylene glycol 3350 (MIRALAX) 17 gram/dose powder Indications: Acute constipation Take 17 g by mouth twice daily. Dissolve dose in 4 - 8 ounces of liquid and take as directed. 1020 g 5 07/31/2022 08/30/2022 Active Comment on above: Take 17 g by mouth t wice daily. Dissolve dose in 4 - 8 ounces of liquid and take as directed. predniSONE 20 mg oral tablet (20 sources) Start: 03-14-2024 End: 03-18-2024 take 2 tablets by mouth once daily at mealtime predniSONE (DELTASONE) 20 mg tablet Take 2 tablets by mouth once daily for 4 days. Take daily with food. 8 tablet 03/14/2024 03/18/2024 Active Start: 10-20-2023 End: 10-29-2023 predniSONE (DELTASONE) 10 mg tablet Indications: Loss of voice Take 4 tabs daily for 3 days, then 2 tabs daily for 3 days, then 1 tab daily for 3 days with food. 21 tablet 10/20/2023 10/29/2023 Start: 12-25-2022 End: 12-30-2022 take 2 tablets by mouth once daily predniSONE (DELTASONE) 20 mg tablet Take 2 tablets by mouth once daily for 5 days. 10 tablet 0 12/25/2022 12/30/2022 Active Start: 03-18-2022 End: 03-23-2022 take 2 tablets by mouth once daily predniSONE (DELTASONE) 20 mg tablet Take 2 tablets by mouth once daily for 5 days. 10 tablet 0 03/18/2022 03/23/2022 Active Start: 03-06-2021 End: 12-09-2022 predniSONE (DELTASONE) 10 mg tablet Take 4 tabs daily for 3 days, then 2 tabs daily for 3 days, then 1 tab daily for 3 days with food. 21 tablet 0 03/06/2021 12/09/2022 Discontinued Comment on above: Take 4 tabs daily fo r 3 days, then 2 tabs daily for 3 days, then 1 tab daily for 3 days with food. Take 2 tablets by [facility] once daily for 5 days. rizatriptan 10 mg oral tablet (20 sources) Serotonin-1b and Serotonin-1d Receptor Agonist Start: 09-26-2021 Rizatriptan Active 1 TABLET PO NEEDED September 25, 2021 11:00pm Start: 06-16-2021 End: 05-24-2024 rizatriptan (MAXALT) 10 mg t ablet Indications: Migraine with aura, not intractable, without status migrainosus Take 1 tablet by mouth as needed for migraine headache (see administration instructions). 6 tablet 5 05/25/2024 Active Comment on above: Take 1 tablet by damien as needed for migraine headache (see administration instructions). Take 1 tablet (10 mg ) by mouth as needed for migraine headache (see administration instructions). sulfamethoxazole 800 mg / trimethoprim 160 mg oral tablet (1 source) Dihydrofolate Reductase Inhibitor Antibacterial, Sulfonamide Antimicrobial Start: 09-05-19 End: 09-15-19 take 1 tablet by mouth twice daily sulfamethoxazole- trimethoprim (BACTRIM DS) 800-160 mg per tablet Indications: Localized bacterial skin infection Take 1 tablet by mouth two times a day for 10 days. 20 tablet 09/04/2024 09/14/2024 Active tiZANidine 4 mg oral tablet (20 sources) Central alpha-2 Adrenergic Agonist Start: 10-20-19 End: 05-24-19 take 1 tablet by mouth once daily tiZANidine (ZANAFLEX) 4 mg tablet Take 1 tablet by mouth once daily. 30 tablet 5 05/24/2024 Active Start: 04-29-2020 End: 10-20-2023 take 1 capsule by mouth once daily at bedtime tiZANidine HCl (ZANAFLEX) 4 mg capsule Take 4 mg by mouth daily at bedtime. 04/29/2020 10/20/2023 Discontinued Start: 04-29-2020 take 4 mg by mouth t hree times daily Tizanidine Active 4 MG PO THREE TIMES A DAY April 29, 2020 12:00am Comment on above: Take 4 mg by mouth d aily at bedtime. topiramate 25 mg oral capsule (20 sources) Start: 12-03-2023 End: 07-24-2024 take 1 capsule by mouth twice daily topiramate (TOPAMAX) 25 mg capsule Indications: Migraine with aura, not intractable, without status migrainosus Take 1 capsule by mouth two times a day. 60 capsule 5 01/26/2024 Active Start: 11-03-2021 End: 07-31-2022 take 1 tablet by mouth twice daily topiramate (TOPAMAX) 50 mg tablet Indications: Migraine with aura, not intractable, without status migrainosus Take 1 tablet by mouth twice daily. 60 tablet 5 11/03/2021 07/31/2022 Discontinued Start: 09-17-2021 End: 05-12-2022 take 1 tablet by mouth once daily Topiramate Discontinued 50 TABLET PO DAILY September 25, 2021 11:00pm May 12, 2022 2:27pm Comment on above: Take 0.5 tablets by mouth daily at bedtime. After 1 week increase to 1 tablet at bedtime. Take 1 tablet by damien th twice daily. VITAMIN D PO (20 sources) take 1 tablet by mouth once at bedtime VITAMIN D PO Take 1 tablet by mouth before bedtime. Active Completed/Discontinued Medications Medication Drug Class(es) Dates Sig (Normalized) Sig (Original) acetaminophen 300 mg / butalbital 50 mg / caffeine 40 mg oral capsule (18 sources) Barbiturate, Central Nervous System Stimulant, Methylxanthine Start: 01-27-2023 End: 03-10-2024 butalbital-acetam inophen-caffeine (Fioricet) 50-300-40 MG capsule Take 1 capsule by mouth. 01/27/2023 03/10/2024 Discontinued (Therapy completed) [id number] 200 actuat albuterol 0.09 mg/actuat metered dose inhaler (20 sources) beta2-Adrenergic Agonist Start: 12-25-2022 End: 07-23-2023 take 2 puff(s) by inhalation every six hours as needed albuterol HFA (PROAIR HFA) 90 mcg/actuation inhaler Inhale 2 Puffs as instructed every 6 hours as needed. 1 Each 12/25/2022 07/23/2023 Discontinued (Course of therapy completed) Start: 03-09-2021 End: 07-23-2023 take 2 puff(s) by inhalation every four hours as needed albuterol HFA (PROVENTIL HFA, VENTOLIN HFA) 90 mcg/actuation inhaler Inhale 2 Puffs as instructed every 4 hours as needed. 8 g 03/09/2021 07/23/2023 Discontinued (Course of therapy completed) Comment on above: Inhale 2 Puffs as in structed every 4 hours as needed. Inhale 2 Puffs as in structed every 6 hours as needed. azithromycin 250 mg oral tablet (6 sources) Macrolide Antimicrobial Start: 10-15-2023 End: 10-20-2023 azithromycin (ZITHROMAX Z-SHAHIDA) 250 mg tablet Indications: Acute cough Take 2 tablets day one, then, 1 tablet daily until gone. 6 tablet 10/15/2023 10/20/2023 Start: 03-23-2022 End: 03-28-2022 azithromycin (ZITHROMAX Z-PA K) 250 mg tablet Take 2 tablets day one, then, 1 tablet daily until gone. 6 tablet 0 03/23/2022 03/28/2022 Active Comment on above: Take 2 tablets day o ne, then, 1 tablet daily until gone. benzonatate 100 mg oral capsule (20 sources) Non-narcotic Antitussive Start: End: take 1 capsule by mouth every eight hours as needed benzonatate (TESSALON PERLE) 100 mg capsule Take 1 capsule by mouth three times a day as needed. 21 capsule 03/14/2024 09/04/2024 Discontinued (Course of therapy completed) Start: 12-25-2022 End: 07-23-2023 take 2 capsules by mouth every eight hours as needed benzonatate (TESSALON PERLES) 100 mg capsule Take 2 capsules by mouth three times daily as needed. 30 capsule 12/25/2022 07/23/2023 Discontinued (Course of therapy completed) Start: 03-18-2022 End: 12-04-2022 take 2 capsules by mouth every eight hours as needed benzonatate (TESSALON PERLES) 100 mg capsule Take 2 capsules by mouth three times daily as needed. 30 capsule 0 03/18/2022 12/04/2022 Discontinued Comment on above: Take 2 capsules by [facility] three times daily as needed. betamethasone 3 mg/ml / betamethasone acetate 3 mg/ml injectable suspension (2 sources) Corticosteroid Start: 12-13-2023 End: 12-13-2023 betamethasone acetate-betamethasone sodium phosphate 6 mg injection (CELESTONE) Start: 12-13-2023 End: 12-13-2023 6 mg, Injection - FOR ORTHO USE ONLY, ONCE, 1 dose, Starting on Wed12/13/23 at 1437, Until Wed12/13/23 at 1437 clindamycin 150 mg oral capsule (5 sources) Lincosamide Antibacterial Start: 04-28-2020 End: 05-03-2020 take 300 mg by mouth four times daily Clindamycin Hcl Discontinued 300 MG PO 4 TIMES DAILY 80 April 28, 2020 12:00am May 03, 2020 12:17pm COMPOUNDED PRESCRIPTION (20 sources) Start: 11-26-2016 End: 12-09-2022 COMPOUNDED PRESCRIPTION Consult to Pain Management - Dr. Nolasco Dx: bilateral knee osteoarthritis; chronic pain 1 Each 0 11/26/2016 12/09/2022 Discontinued Start: 11-26-2016 COMPOUNDED PRE SCRIPTION Consult to Pain Management - Dr. Nolasco Dx: bilateral knee osteoarthritis; chronic pain 1 Each 0 11/26/2016 Active Comment on above: Consult to [facility] - Dr. Nolasco Dx: bilateral knee osteoarthritis; chronic pain 12 hr dextromethorphan hydrobromide 30 mg / guaiFENesin 600 mg extended release oral tablet (20 sources) Uncompetitive M-yqelkm-H-aspartate Receptor Antagonist, Sigma-1 Agonist Start: End: take 1 tablet by mouth twice daily dextromethorphan-gu aiFENesin (MUCINEX DM) 30-600 mg per tablet Take 1 tablet by mouth twice daily. 20 tablet 0 03/11/2022 12/04/2022 Discontinued Comment on above: Take 1 tablet by [facility] twice daily. etodolac 400 mg oral tablet (20 sources) Nonsteroidal Anti-inflammatory Drug Start: 023 End: 025 take 1 tablet by mouth twice daily as needed for pain etodolac (LODINE) 400 mg tablet Indications: Trochanteric bursitis of left hip Take 1 tablet by mouth two times a day. As needed for hip pain 180 tablet 3 06/07/2023 06/29/2023 Discontinued Start: 10-19-2022 End: 12-29-2022 take 1 tablet by mouth twice daily etodolac (LODINE) 400 mg tablet Indications: Trochanteric bursitis of left hip Take 1 tablet by mouth twice daily. 60 tablet 1 12/29/2022 Active Comment on above: Take 1 tablet by damien th twice daily. Take 1 tablet by damien th two times a day. Take 1 tablet by damien th two times a day. As needed for hip pain 12 hr guaiFENesin 1200 mg / pseudoephedrine hydrochloride 120 mg extended release oral tablet (20 sources) alpha-Adrenergic Agonist Start: 10-20-19 End: 09-05-19 take 120-1200 mg by mouth every twelve hours as needed Pseudoephedrine-gua iFENesin (MUCINEX D MAXIMUM STRENGTH) 120-1,200 mg tab ER 12 hr Indications: Post-nasal drip Take 1 tablet by mouth once daily as needed (congestion). 24 tablet 10/20/2023 09/04/2024 Discontinued (Course of therapy completed) ibuprofen 200 mg oral tablet (4 sources) Nonsteroidal Anti-inflammatory Drug End: 06-07-19 take 4 tablets by mouth every six hours as needed ibuprofen (MOTRIN) 200 mg tablet Take 800 mg by mouth every 6 hours as needed for pain. 0 06/07/2023 Discontinued Comment on above: Take 800 mg by mouth every 6 hours as needed for pain. 10 ml lidocaine hydrochloride 10 mg/ml injection (2 sources) Antiarrhythmic, Amide Local Anesthetic Start: 12-13-19 End: 12-13-19 lidocaine (PF) 10 mg/mL (1 %) 5 mL injection (XYLOCAINE) Start: 12-13-2023 End: 12-13-2023 5 mL, Injection - FOR ORTHO USE ONLY, ONCE, 1 dose, Starting on Wed12/13/23 at 1437, Until Wed12/13/23 at 1437 meloxicam 15 mg oral tablet (3 sources) Nonsteroidal Anti-inflammatory Drug Start: 09-14-2022 End: 10-14-2022 take 1 tablet by mouth once daily meloxicam (MOBIC) 15 mg tablet Take 1 tablet by mouth once daily. 30 tablet 1 09/14/2022 10/14/2022 Comment on above: Take 1 tablet by damien once daily. methylPREDNISolone (20 sources) Corticosteroid Start: 12-10-2021 End: 12-09-2022 MEDROL, SHAHIDA, 4 mg Dose-Pack Take on steroid pack as directed. 21 tablet 0 12/10/2021 12/09/2022 Discontinued Start: 12-10-2021 MEDROL, SHAHIDA, 4 mg Dose-Pack Take on steroid pack as directed. 21 tablet 0 12/10/2021 Active Comment on above: Take on steroid pack as directed. nabumetone 750 mg oral tablet (20 sources) Nonsteroidal Anti-inflammatory Drug Start: 9 End: 3 nabumetone (RELAFEN) 750 mg tablet naproxen 500 mg oral tablet (3 sources) Nonsteroidal Anti-inflammatory Drug Start: 2 End: 3 take 1 tablet by mouth twice daily Naproxen (Naprosyn) 500 mg tablet Discontinued 500 MG PO TWICE A DAY November 11, 2021 11:00pm May 12, 2022 2:26pm 2 ml ondansetron 2 mg/ml injection (2 sources) Serotonin-3 Receptor Antagonist Start: 4 End: 4 4 mg, IntraVENous, Once PRN, nausea, vomiting, Starting on Wed03/10/24 at 0926, For 1 dose, Preprocedure sertraline 100 mg oral tablet (20 sources) Serotonin Reuptake Inhibitor Start: 4 End: 4 take 2 tablets by mouth once daily sertraline (ZOLOFT) 100 mg tablet Indications: Anxiety associated with depression , Stress and adjustment reaction Take 2 tablets by mouth once daily. 60 tablet 5 06/07/2023 08/11/2023 Discontinued Start: 06-01-2022 End: 02-28-2023 take 2 tablets by mouth once daily sertraline (ZOLOFT) 100 mg tablet Indications: Anxiety associated with depression , Stress and adjustment reaction Take 2 tablets by mouth once daily. 60 tablet 0 03/01/2023 Active Start: 05-12-2022 take 200 mg by mouth twice daily Sertraline Active 200 MG PO TWICE A DAY May 12, 2022 2:25pm Start: 06-16-2021 End: 12-22-2021 take 2 tablets by mouth once daily sertraline (ZOLOFT) 100 mg tablet Indications: Anxiety associated with depression , Stress and adjustment reaction Take 2 tablets by mouth once daily. 180 tablet 0 12/23/2021 Active Start: 04-29-2020 End: 05-12-2022 take 100 mg by mouth twice daily Sertraline Discontinued 100 MG PO TWICE A DAY April 29, 2020 12:00am May 12, 2022 2:27pm Comment on above: Take 2 tablets by [facility] once daily. 1000 ml sodium chloride 9 mg/ml injection (2 sources) Start: 03-10-20 End: 03-10-20 take 50 mL intravenously every hour 50 mL/hr, IntraVENous, Continuous, Starting on Wed03/10/24 at 0930, Preprocedure tirzepatide, weight loss (ZEPBOUND) 2.5 mg/0.5 mL pen injector (9 sources) Start: 07-23-19 End: 09-15-19 tirzepatide, weight loss (ZEPBOUND) 2.5 mg/0.5 mL pen injector Indications: Class 3 severe obesity with body mass index (BMI) of 40.0 to 44.9 in adult, unspecified obesity type, unspecified whether serious comorbidity present (HCC) Inject 2.5 mg subcutaneously one time a week. 2 mL 5 07/23/2023 09/15/2023 Discontinued (Cost of medication) Start: 07-23-2023 End: 01-19-2024 tirzepatide, weight loss (ZE PBOUND) 2.5 mg/0.5 mL pen injector Indications: Class 3 severe obesity with body mass index (BMI) of 40.0 to 44.9 in adult, unspecified obesity type, unspecified whether serious comorbidity present (HCC) Inject 2.5 mg subcutaneously one time a week. 2 mL 5 07/23/2023 01/19/2024 Active Comment on above: Inject 2.5 mg subcut aneously one time a week. Problems Active Problems Problem Classification Problem Date Documented Da te Episodic/Chronic Abdominal pain (7 sources) Epigastric pain; Translations: [Epigastric pain] 08-24-2019 Episodic Adjustment disorders (20 sources) Stress and adjustment reaction; Translations: [Adjustment disorder with other symptoms] Onset: 6 02-09-2016 Chronic Anxiety disorders (20 sources) Mixed anxiety and depressive disorder; Translations: [Other specified anxiety disorders] Onset: 1 Resolved: 3 10-12-2014 Chronic Bacterial infection; unspecified site (14 sources) History of methicillin resistant Staphylococcus aureus infection; Translations: [Personal history of Methicillin resistant Staphylococcus aureus infection] Onset: 4 05-14-2022 Episodic Blindness and vision defects (2 sources) Disorder of vision; Translations: [Unspecified visual loss] 05-12-2022 Chronic Chronic obstructive pulmonary disease and bronchiectasis (2 sources) Bronchitis; Translations: [Bronchitis, not specified as acute or chronic] Episodic Chronic ulcer of skin (10 sources) Ulcer of skin of face; Translations: [Non-pressure chronic ulcer of skin of other sites with fat layer exposed] 06-17-2020 Chronic Esophageal disorders (20 sources) Gastroesophageal reflux disease; Translations: [Gastro-esophageal reflux disease without esophagitis] Onset: 2 Resolved: 5 03-31-2021 Chronic Essential hypertension (20 sources) Hypertensive disorder; Translations: [Essential (primary) hypertension] Onset: 5 03-31-2021 Chronic Headache; including migraine (20 sources) Migraine with aura; Translations: [Migraine with aura, not intractable, without status migrainosus] Onset: 9 08-15-2018 Chronic Headache; including migraine (4 sources) Headache; Translations: [Headache] 05-12-2022 Episodic Mood disorders (20 sources) Depressive disorder; Translations: [Depression] Onset: 7 Resolved: 5 02-09-2016 Chronic Nutritional deficiencies (5 sources) Vitamin D deficiency; Translations: [Vitamin D deficiency, unspecified] 11-05-2022 Chronic Osteoarthritis (20 sources) Primary gonarthrosis, bilateral; Translations: [Bilateral primary osteoarthritis of knee] Onset: 6 11-01-2015 Chronic Other and ill-defined heart disease (1 source) Ventricular hypertrophy ; Translations: [Cardiomegaly] 08-11-2023 Chronic Other and ill-defined heart disease (1 source) Cardiomegaly; Translations: [Cardiomegaly] Onset: Chronic Other bone disease and musculoskeletal deformities (1 source) Exostosis; Translations: [Other specified disorders of bone, unspecified site] 11-04-2022 Episodic Other connective tissue disease (4 sources) Pain in left foot; Translations: [Pain in left foot] Episodic Other connective tissue disease (3 sources) Trochanteric bursitis of left hip; Translations: [Trochanteric bursitis, left hip] 10-19-2022 Episodic Other gastrointestinal disorders (1 source) Diarrhea; Translations: [Diarrhea, unspecified] Episodic Other gastrointestinal disorders (1 source) Acute constipation; Translations: [Constipation, unspecified] Episodic Other injuries and conditions due to external causes (2 sources) Muscle strain; Translations: [Other injury of unspecified body region, initial encounter] 12-02-2022 Episodic Other lower respiratory disease (5 sources) Dyspnea; Translations: [Shortness of breath] 07-23-2023 Episodic Other lower respiratory disease (2 sources) Chronic cough; Translations: [Chronic cough] 10-21-2023 Episodic Other lower respiratory disease (2 sources) Cough; Translations: [Acute cough] 03-14-2024 Episodic Other nervous system disorders (1 source) Acute postoperative pain; Translations: [Other acute postprocedural pain] 06-09-2022 Episodic Other non-traumatic joint disorders (7 sources) Pain in right knee; Translations: [Pain in joint, lower leg] Onset: 4 10-16-2022 Episodic Other non-traumatic joint disorders (2 sources) Hip pain; Translations: [Pain in left hip] 10-16-2022 Episodic Other nutritional; endocrine; and metabolic disorders (20 sources) Morbid obesity; Translations: [Morbid (severe) obesity due to excess calories] Onset: 4 05-13-2020 Chronic Other nutritional; endocrine; and metabolic disorders (20 sources) Body mass index 40+ - severely obese; Translations: [Morbid (severe) obesity due to excess calories] 12-21-2022 Chronic Other nutritional; endocrine; and metabolic disorders (15 sources) Severe obesity; Translations: [Morbid (severe) obesity due to excess calories] 07-23-2023 Chronic Other nutritional; endocrine; and metabolic disorders (4 sources) Morbid (severe) obesity due to excess calories; Translations: [Morbid obesity (HCC)] Onset: 4 Chronic Other nutritional; endocrine; and metabolic disorders (4 sources) Body mass index (BMI) 45.0-49.9, adult; Translations: [Body mass index 45.0-49.9, adult (HCC)] Onset: 4 Chronic Other nutritional; endocrine; and metabolic disorders (3 sources) Weight gain; Translations: [Abnormal weight gain] 12-02-2022 Episodic Other nutritional; endocrine; and metabolic disorders (2 sources) Weight loss; Translations: [Weight Loss] Onset: Episodic Other screening for suspected conditions (not mental disorders or infectious disease) (2 sources) Imaging of thorax abnormal; Translations: [Abnormal findings on diagnostic imaging of other specified body structures] 10-21-2023 Chronic Other screening for suspected conditions (not mental disorders or infectious disease) (6 sources) Patient encounter status; Translations: [Encounter for screening mammogram for malignant neoplasm of breast] Episodic Other skin disorders (1 source) Eruption; Translations: [Rash and other nonspecific skin eruption] Episodic Other skin disorders (1 source) Adherent scar; Translations: [Scar conditions and fibrosis of skin] 05-19-2022 Episodic Other upper respiratory disease (1 source) Loss of voice; Translations: [Aphonia] 10-20-2023 Episodic Other upper respiratory infections (1 source) Bacterial sinusitis; Translations: [Chronic sinusitis, unspecified] 09-28-2023 Chronic Other upper respiratory infections (8 sources) Upper respiratory infection; Translations: [Acute upper respiratory infection, unspecified] Episodic Residual codes; unclassified (2 sources) Past history of procedure; Translations: [Other specified postprocedural states] 05-14-2022 Episodic Skin and subcutaneous tissue infections (17 sources) Abscess of face; Translations: [Cutaneous abscess of face] Onset: 5 04-29-2020 Episodic Substance-related disorders (1 source) Opioid dependence, uncomplicated; Translations: [Opioid dependence, uncomplicated] Onset: Chronic Superficial injury; contusion (7 sources) Contusion of foot; Translations: [Contusion of left foot, initial encounter] Episodic Unclassified (1 source) Acute cough; Translations: [Acute cough] Onset: 4 Unclassified (1 source) Obesity, class 3 (HCC); Translations: [Obesity, class 3 (HCC)] Onset: 5 Unclassified (2 sources) Weight Management; Translations: [Weight Management] Onset: 4 Past or Other Problems Problem Classification Problem Date Documented Da te Episodic/Chronic Abdominal hernia (20 sources) Diaphragmatic hernia; Translations: [Diaphragmatic hernia without obstruction or gangrene] Onset: 09-22-2010 Resolved: 10-12-2014 10-12-2014 Episodic Allergic reactions (20 sources) Urticaria; Translations: [Urticaria, unspecified] Onset: 05-10-2009 Resolved: 02-08-2013 02-08-2013 Episodic Cancer of liver and intrahepatic bile duct (20 sources) Primary malignant neoplasm of liver; Translations: [Malignant neoplasm of liver, primary, unspecified as to type] Onset: 08-26-2005 Resolved: 02-08-2013 02-08-2013 Chronic Cardiac dysrhythmias (2 sources) Bradycardia; Translations: [Bradycardia, unspecified] Onset: 12-08-2023 09-15-2023 Episodic Coma; stupor; and brain damage (20 sources) Daytime somnolence; Translations: [Somnolence] Onset: 01-04-2024 01-04-2024 Episodic Conditions associated with dizziness or vertigo (6 sources) Dizziness; Translations: [Dizziness and giddiness] Onset: 12-08-2023 07-23-2023 Episodic Diabetes or abnormal glucose tolerance complicating ; childbirth; or the puerperium (20 sources) with abnormal glucose tolerance test; Translations: [Abnormal glucose complicating ] Onset: 08-23-2014 Resolved: 02-19-2016 03-31-2021 Episodic Digestive congenital anomalies (20 sources) 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; Translations: [Other congenital malformations of gallbladder] Onset: 09-02-2005 Resolved: 10-12-2014 10-12-2014 Chronic Esophageal disorders (20 sources) Esophagitis; Translations: [Esophagitis, unspecified] Onset: 09-22-2010 Resolved: 10-12-2014 10-12-2014 Episodic Fluid and electrolyte disorders (20 sources) Hypervolemia; Translations: [Fluid overload, unspecified] Onset: 10-10-2014 Resolved: 10-12-2014 03-31-2021 Episodic Fracture of lower limb (20 sources) Closed fracture of lateral malleolus; Translations: [Displaced fracture of lateral malleolus of unspecified fibula, initial encounter for closed fracture] Onset: 09-03-2008 Resolved: 02-08-2013 02-08-2013 Episodic Gastritis and duodenitis (20 sources) Atrophic gastritis; Translations: [Chronic atrophic gastritis without bleeding] Onset: 09-22-2010 Resolved: 10-12-2014 10-12-2014 Chronic Hemorrhoids (20 sources) Hemorrhoids; Translations: [Unspecified hemorrhoids] Resolved: 04-25-2008 04-25-2008 Episodic Hypertension complicating ; childbirth and the puerperium (20 sources) Pre-eclampsia added to pre-existing hypertension; Translations: [Pre-existing hypertension with pre-eclampsia, unspecified trimester] Onset: 11-17-2014 Resolved: 02-19-2016 02-19-2016 Chronic Immunizations and screening for infectious disease (20 sources) Contact with or exposure to other viral diseases; Translations: [Exposure to COVID-19 virus] Onset: 03-05-2014 Resolved: 10-12-2014 Episodic Open wounds of head; neck; and trunk (20 sources) Open wound of neck with complication; Translations: [Unspecified open wound of unspecified part of neck, initial encounter] Onset: 09-15-2023 05-14-2022 Episodic Other aftercare (20 sources) Drug therapy finding; Translations: [Other mcfp (current) drug therapy] Onset: 02-08-2013 Resolved: 10-12-2014 03-31-2021 Episodic Other bone disease and musculoskeletal deformities (20 sources) Nonunion of fracture; Translations: [Nonunion of fracture] Onset: 02-11-2009 Resolved: 02-08-2013 02-08-2013 Episodic Other complications of ; puerperium affecting management of mother (20 sources) Advanced maternal age ; Translations: [Advanced maternal age (AMA), 40 years or greater] Onset: 07-10-2014 Resolved: 10-12-2014 10-12-2014 Episodic Other hereditary and degenerative nervous system conditions (20 sources) Restless legs; Translations: [Restless legs syndrome] Onset: 06-29-2006 Resolved: 02-08-2013 02-08-2013 Chronic Other lower respiratory disease (20 sources) Cough; Translations: [Cough] Onset: 02-01-2007 Resolved: 04-25-2008 04-25-2008 Episodic Other lower respiratory disease (1 source) Shortness of breath; Translations: [SOB (shortness of breath)] Onset: 03-14-2024 Episodic Other nervous system disorders (20 sources) Paresthesia of lower extremity; Translations: [Paresthesia of skin] Onset: 06-16-2012 Resolved: 10-12-2014 10-12-2014 Episodic Other nervous system disorders (1 source) Other acute postprocedural pain; Translations: [Other acute postprocedural pain] Onset: 09-01-2023 Episodic Other non-traumatic joint disorders (20 sources) Pain in left knee; Translations: [Pain in joint, lower leg] Onset: 07-03-2015 Resolved: 02-19-2016 02-19-2016 Episodic Other and delivery including normal (20 sources) ; Translations: [Encounter for supervision of normal , unspecified, unspecified trimester] Onset: 10-10-2014 Resolved: 10-12-2014 03-31-2021 Episodic Other skin disorders (1 source) Hypertrophic scar; Translations: [Hypertrophic scar] Onset: 09-15-2023 Episodic Other skin disorders (1 source) Scar conditions and fibrosis of skin; Translations: [Scar conditions and fibrosis of skin] Onset: 09-15-2023 Episodic Other skin disorders (1 source) Personal history of diseases of the skin and subcutaneous tissue; Translations: [Personal history of diseases of the skin and subcutaneous tissue] Onset: 09-15-2023 Episodic Residual codes; unclassified (20 sources) Abnormal cytology findings; Translations: [ASCUS favor benign] Onset: 10-27-2013 10-12-2014 Episodic Residual codes; unclassified (3 sources) Other specified postprocedural states; Translations: [Other postprocedural status] Onset: 09-15-2023 05-12-2022 Episodic Residual codes; unclassified (1 source) Pain, unspecified; Translations: [Pain, unspecified] Onset: 09-15-2023 Episodic Sexually transmitted infections (not HIV or hepatitis) (20 sources) Gonorrhea; Translations: [Gonococcal infection, unspecified] Onset: 08-24-2013 Resolved: 10-12-2014 10-12-2014 Episodic Spondylosis; intervertebral disc disorders; other back problems (20 sources) Degeneration of cervical intervertebral disc; Translations: [Other cervical disc degeneration, mid-cervical region, unspecified level] Onset: 12-25-2011 Resolved: 10-12-2014 06-15-2019 Chronic Spondylosis; intervertebral disc disorders; other back problems (20 sources) Cervical disc disorder; Translations: [Mid-cervical disc disorder, unspecified level] Onset: 12-25-2011 Resolved: 01-26-2013 10-12-2014 Episodic Sprains and strains (20 sources) Neck sprain; Translations: [Sprain of joints and ligaments of unspecified parts of neck, initial encounter] Onset: 08-20-2010 Resolved: 01-26-2013 01-26-2013 Episodic Unclassified (20 sources) SUMMARY Onset: 10-10-2014 Resolved: 10-12-2014 03-31-2021 Unclassified (1 source) Obesity, class 3 (HCC); Translations: [Obesity, class 3 (HCC)] Onset: 11-29-2024 Results Test Name Value Interpretation Reference Range Facility Office Visiton 11-29-2024 Follow-up visit [id number] Michael Browning 1975 F Date Provider Department Center 11/29/2024 LUPE ALMODOVAR [facility] None Family History Problem Relation Age of Onset Diabetes Mother Hypertension Mother Obesity Mother Hypertension Father Obesity Sister Diabetes Brother Hypertension Brother Obesity Brother Hypertension Maternal Grandmother Diabetes Maternal Grandmother Obesity Maternal Grandmother Heart disease Maternal Grandfather Hypertension Maternal Grandfather Diabetes Maternal Grandfather Obesity Maternal Grandfather Family Status - Relation Status Age at Mother Alive Father Sister Brother Maternal Grandmother Maternal Grandfather Level of Service:[id number] [place] OFFICE/OUTPATIENT ESTABLISHED LOW MDM 20 MIN Reason for Visit and Comments: Weight Loss [237806] - D/E / [facility] Progress Noteon 11-29-2024 Progress Note HPI, PHYSICAL EXAM, AND PLAN Patient is here today for follow up of their physician supervised diet and exercise in preparation for weight loss surgery. Weight trend since last visit: gain 1 lb over 1 m stable This patient's excess weight is causing the following co-morbid conditions at this time HTN Plan: Physical Examination: Blood pressure 137/86, pulse 103, height 5' 4 (1.626 m), weight 279 lb 3.2 oz (127 kg). General: This patient is alert and oriented X3 General: This patient is awake, alert, and oriented, and is in no apparent distress. Extremities: No cyanosis, clubbing or edema/ No calf tenderness/No restrictions of movement, is ambulatory without assistance. Neurological: Intact x 4 extremities, no focal deficits notes. Skin: No rashes or lesions noted. Assessment of Current Diet and Exercise Current Diet This patient?s current diet is:80% meal plan Her diet contains adequate amounts of protein, inadequate amounts of healthy fats, adequate amounts of green, leafy vegetables, and adequate amounts of fruits. Her comfort foods include:none Current Activity This patient currently does exercise for 45 Minutes per session, 5 times per week, including the following: walking. Current Eating Behaviors This patients demonstrates the following behaviors as they relate to her eating:structured She eats approximately 4-6 times per day. Her last meal/snack was at 6 am/pm. Plan: HTN: stable. continued medical management, DE and plan for metabolic weight loss and surgery. Obesity class 3 stable Continue current management, continue weight loss program Advised patient that She must continue to adhere to regular monthly visits to meet the requirements of her insurance company. Additionally, She is to adopt eating plan recommendations and show weight loss trend to demonstrate readiness for the changes that will be required following surgery. Patient's weight pattern does demonstrates meal plan adoption and weight loss each month Physician Diet Recommendations provided in Patient Instructions Patient: [] To return in one month for follow up. [x] Has completed insurance required monthly diet and exercise series [] Needs to continue monthly visits until surgery Current Meds Patient's Medications New Prescriptions No medications on file Previous Medications ATENOLOL (TENORMIN) 50 MG TABLET Take 50 mg by mouth daily. CELECOXIB (CELEBREX) 200 MG CAPSULE Take 200 mg by mouth 2 times daily. HYDROCODONE-ACETAMINOPHEN (NORCO) 5-325 MG TABLET Take 2 tablets by mouth. HYDROXYZINE HCL (ATARAX) 25 MG TABLET Take 25 mg by mouth every 8 hours as needed. LISINOPRIL 10 MG TABLET Take 10 mg by mouth in the morning. MECLIZINE (ANTIVERT) 25 MG TABLET TAKE 1 TABLET BY MOUTH EVERY 6 HOURS NEEDED FOR DIZZINESS OMEPRAZOLE (PRILOSEC) [address] CAPSULE Take 40 mg by mouth in the morning and 40 mg in the evening. PAROXETINE (PAXIL) 20 MG TABLET Take 20 mg by mouth every morning. PAROXETINE (PAXIL) 40 MG TABLET Take 40 mg by mouth daily. RIZATRIPTAN (MAXALT) 10 MG TABLET TAKE 1 TABLET BY MOUTH NEEDED FOR MIGRAINE HEADACHE. TIZANIDINE (ZANAFLEX) 4 MG TABLET Take 4 mg by mouth daily. VITAMIN D PO Take 1 tablet by mouth before bedtime. Modified Medications No medications on file Discontinued Medications No medications on file I spend a total of 20 minutes on the same day of the visit in discussing/counseling the patient regarding the diet and exercise in the preparation for weight loss surgery.Education on the meal plan and 7 rules of eating is provided. Meal prep is encouraged as a foundation of the meal plan. Food journal is encouraged as a feedback system before and after bariatric surgery. Counseling on no nicotine/alcohol before and after surgery. Exercise and its role in the preparation for weight loss surgery is explained. HTN Is associated with obesity and weight loss is discussed as a treatment option for HTN Full chart review was performed.Clinical documentation is updated and completed. [facility] 36on 11-24-2024 36 We can see you November 29 at 1:50pm in the [place] [facility]. Please let us know if this will work for you. Thanks [facility] 36 Called patient no an swer. Sent patient Adomo message to reply and schedule appointment with Dr. Riddle. [facility] 25(OH)D3 [facility] 2024 25-hydroxyvitamin D3 [Mass/Vol] 44.8 ng/mL Normal 31.0-80.[address] [facility] Comment on above: Order Comment: Speci men Type: BLOOD SPECIMENOrdering Facility: [facility] [place] Address: [address] [place] [id number] Result Comment: Clas sification of 25 [place] Vitamin D status: Deficiency/Insufficiency: < or = 30 ng/ml. Sufficiency/Optimal Levels: 31-80 ng/mL Toxicity: > 100 ng/mL. Test performed by chemiluminescent immunoassay. Performed By: #### 1 989-3 ####[facility] [place] LABCLIA [id number] [place] [id number] [place] 36on 11-21-2024 36 Pt called and left m essage that she is calling to r/s missed appt. Normal [facility] CBC panel Auto (Bld)on 11-21 Erythrocyte distribution width (RBC) [Ratio] 13.1 % Normal 11.5-15.[address] [facility] Comment on above: Order Comment: Speci men Type: BLOOD SPECIMENOrdering Facility: [facility] [place] Address: [address] [place] [address] Performed By: #### 5 8410-2 ####[facility] [place] LABCLIA [id number] [place] [id number] [place] Hematocrit (Bld) [Volume fraction] 38.8 % Normal 36.0-46.[address] [facility] Comment on above: Order Comment: Speci men Type: BLOOD SPECIMENOrdering Facility: [facility] Address: [address] [place] [address] Performed By: #### 5 8410-2 ####[facility] [place] LABCLIA [id number] [place] [id number] [place] Hemoglobin (Bld) [Mass/Vol] 12.6 g/dL Normal 11.5-15.[address] [facility] Comment on above: Order Comment: Speci men Type: BLOOD SPECIMENOrdering Facility: [facility] Address: [address] [place] [address] Performed By: #### 5 8410-2 ####[facility] [place] LABCLIA [id number] [place] [id number] [place] MCH (RBC) [Entitic mass] 28.8 pg Normal 26.0-34.[address] [facility] Comment on above: Order Comment: Speci men Type: BLOOD SPECIMENOrdering Facility: [facility] Address: [address] [place] [address] Performed By: #### 5 8410-2 ####[facility] [place] LABCLIA [id number] [address] [place] [address] [place] MCHC (RBC) [Mass/Vol] 32.5 g/dL Normal 30.5-36.[address] [facility] Comment on above: Order Comment: Speci men Type: BLOOD SPECIMENOrdering Facility: [facility] Address: [address] [place] [address] Performed By: #### 5 8410-2 ####[facility] [place] LABCLIA [id number] [address] [address] [place] MCV (RBC) [Entitic vol] 88.8 fL Normal 80.0-100.[address] [facility] Comment on above: Order Comment: Speci men Type: BLOOD SPECIMENOrdering Facility: [facility] Address: [address] [place] [address] Performed By: #### 5 8410-2 ####[facility] [place] LABCLIA [id number] [place] [id number] [place] Nucleated RBC (Bld) [#/Vol] 10*3/uL Normal <0.[address] [facility] Comment on above: Order Comment: Speci men Type: BLOOD SPECIMENOrdering Facility: [facility] Address: [address] [place] [address] Performed By: #### 5 8410-2 ####[facility] [place] LABCLIA [id number] [address] [address] [place] Platelet mean volume (Bld) [Entitic vol] 10.5 fL Normal 9.0-12.[address] [facility] Comment on above: Order Comment: Speci men Type: BLOOD SPECIMENOrdering Facility: [facility] Address: [address] [place] [address] Performed By: #### 5 8410-2 ####[facility] [place] LABCLIA [id number] [address] [address] [place] Platelets (Bld) [#/Vol] 175 10*3/uL Normal 150-[address] [facility] Comment on above: Order Comment: Speci men Type: BLOOD SPECIMENOrdering Facility: [facility] Address: [address] [place] [address] Performed By: #### 5 8410-2 ####[facility] [place] LABCLIA [id number] [facility] [place] [id number] [place] RBC (Bld) [#/Vol] 4.37 10*6/uL Normal 3.90-5.20 [facility] Comment on above: Order Comment: Speci men Type: BLOOD SPECIMENOrdering Facility: [facility] Address: [address] [place] [address] Performed By: #### 5 8410-2 ####[facility] [place] LABCLIA [id number] [place] [address] [place] WBC (Bld) [#/Vol] 3.73 10*3/uL Normal 3.70-11.00 [facility] Comment on above: Order Comment: Speci men Type: BLOOD SPECIMENOrdering Facility: [facility] Address: [address] [place] [address] Performed By: #### 5 8410-2 ####[facility] [place] LABCLIA [id number] [facility] [place] [id number] [place] Comprehensive metabolic 2000 panelon 11-21-2024 Albumin [Mass/Vol] 4.2 g/dL Normal 3.9-4.9 [facility] Comment on above: Order Comment: Speci men Type: BLOOD SPECIMENOrdering Facility: [facility] Address: [address] [place] [address] Performed By: #### 2 276-4, 2284-8, 2132-9, 46895-9 ####[facility] [place] LABCLIA [id number] [place] [id number] [place] ALP [Catalytic activity/Vol] 80 U/L Normal 34-[address] [facility] Comment on above: Order Comment: Speci men Type: BLOOD SPECIMENOrdering Facility: [facility] Address: [address] [place] [address] Performed By: #### 2 276-4, 8, 2131-12, ####[facility] [place] LABCLIA [id number] [place] AVENUEDESK [address] [address] [place] ALT [Catalytic activity/Vol] 29 U/L Normal 7-[address] [facility] Comment on above: Order Comment: Speci men Type: BLOOD SPECIMENOrdering Facility: [facility] Address: [address] [place] [address] Performed By: #### 2 276-4, 8, 2131-12, ####[facility] [place] LABCLIA [id number] [place] AVENUEUCSF B[facility]IOFF [facility]LANDK [place] [id number] [place] Anion gap [Moles/Vol] 11 mmol/L Normal 8-[address] [facility] Comment on above: Order Comment: Speci men Type: BLOOD SPECIMENOrdering Facility: [facility] Address: [address] [place] [address] Performed By: #### 2 276-4, 8, 2131-12, ####[facility] [place] LABCLIA [id number] [facility] [address] [address] [place] AST [Catalytic activity/Vol] 22 U/L Normal 13-[address] [facility] Comment on above: Order Comment: Speci men Type: BLOOD SPECIMENOrdering Facility: [facility] Address: [address] [place] [address] Performed By: #### 2 276-4, 8, 2131-12, ####[facility] [place] LABCLIA [id number] [place] [address] [address] [place] Bilirubin [Mass/Vol] 0.4 mg/dL Normal 0.2-1.3 [facility] Comment on above: Order Comment: Speci men Type: BLOOD SPECIMENOrdering Facility: [facility] Address: [address] [place] [address] Performed By: #### 2 276-4, 8, 2131-12, ####[facility] [place] LABCLIA [id number] [place] [address]UED[address] [address] [place] Calcium [Mass/Vol] 9.1 mg/dL Normal 8.5-10.2 [facility] Comment on above: Order Comment: Speci men Type: BLOOD SPECIMENOrdering Facility: [facility] Address: [address] [place] [address] Performed By: #### 2 276-4, 8, 2131-12, ####[facility] [place] LABCLIA [id number] [place] [facility] [address] [address] [place] Chloride [Moles/Vol] 106 mmol/L Normal 98-107 [facility] Comment on above: Order Comment: Speci men Type: BLOOD SPECIMENOrdering Facility: [facility] Address: [address] [place] [address] Performed By: #### 2 276-4, 2283-11, 2131-12, ####[facility] [place] LABCLIA [id number] [place] AVENUEUCSF BENIOFF CHILDR[facility] H[facility] OAKLANDK [address] [address] [place] CO2 [Moles/Vol] 25 mmol/L Normal 22-[address] [facility] Comment on above: Order Comment: Speci men Type: BLOOD SPECIMENOrdering Facility: [facility] Address: [address] [place] [address] Performed By: #### 2 276-4, 8, 2131-12, ####[facility] [place] LABCLIA [id number] [place] [address] [address] [place] Creatinine [Mass/Vol] 0.99 mg/dL High 0.58-0.[address] [facility] Comment on above: Order Comment: Vi suresh Type: BLOOD SPECIMENOrdering Facility: [facility] Address: [address] [place] [address] Performed By: #### 2 276-4, 2284-8, 2131-12, ####[facility] [place] LABCLIA [id number] [address] [address] [place] eGFRcr SerPlBld CKD-EPI 2020 70 mL/min/1.73m??? Normal >=[address] [facility] Comment on above: Order Comment: Vi demetrice Type: BLOOD SPECIMENOrdering Facility: [facility] Address: [address] [place] [address] Result Comment: Kiya mated Glomerular Filtration Rate (eGFR) is calculated using the 2020 CKD-EPI creatinine equation. This equation utilizes serum creatinine, sex, and age as parameters. The creatinine assay has traceable calibration to isotope dilution-mass spectrometry. Refer to KDIGO guidelines for clinical interpretation. In patients with unstable renal function, e.g. those with acute kidney injury, the eGFR may not accurately reflect actual GFR. Performed By: #### 2 276-4, 4-8, 2131-12, ####[facility] [place] LABCLIA [id number] [address] [address] [place] Glucose [Mass/Vol] 93 mg/dL Normal 74-99 [facility] Comment on above: Order Comment: Vi demetrice Type: BLOOD SPECIMENOrdering Facility: [facility] Address: [address] [place] [address] Result Comment: The [place] Diabetes Association (ADA) provides guidance for cutoff values for fasting glucose and random glucose. The ADA defines fasting as no caloric intake for at least 8 hours. Fasting plasma glucose results between 100 to 125 mg/dL indicate increased risk for diabetes (prediabetes). Fasting plasma glucose results greater than or equal to 126 mg/dL meet the criteria for diagnosis of diabetes. In the absence of unequivocal hyperglycemia, results should be confirmed by repeat testing. In a patient with classic symptoms of hyperglycemia or hyperglycemic crisis, random plasma glucose results greater than or equal to 200 mg/dL meet the criteria for diagnosis of diabetes. Reference: Standards of Medical Care in Diabetes 2016, [place] Diabetes Association. Diabetes Care. 2016.39(Suppl 1). Performed By: #### 2 276-4, 8, 2131-12, ####[facility] [place] LABCLIA [id number] [employer] [address] [place] [address] [place] Potassium [Moles/Vol] 4.5 mmol/L Normal 3.7-5.[address] [facility] Comment on above: Order Comment: Speci men Type: BLOOD SPECIMENOrdering Facility: [facility] [place] Address: [address] [place] [address] Performed By: #### 2 276-4, 8, 2131-12, ####[facility] [place] LABCLIA [id number] XtremeMortgageWorxPayByGroupUCSF BENIOFF CHILDREN'S HOSPITAL OAKLANDFriends Around [address] [address] [place] Protein [Mass/Vol] 6.0 g/dL Low 6.3-8.0 [facility] Comment on above: Order Comment: Speci men Type: BLOOD SPECIMENOrdering Facility: [facility] Center[facility] [place] Address: [address] [place] [address] Performed By: #### 2 276-4, 8, 2131-12, ####[facility] [place] LABCLIA [id number] [facility] MINNE[facility]OLISPayByGroup[address] [place] [address] [place] Sodium [Moles/Vol] 142 mmol/L Normal 136-144 [facility] Comment on above: Order Comment: Speci men Type: BLOOD SPECIMENOrdering Facility: [facility] CenterC[facility] [place] Address: [address] [place] [address] Performed By: #### 2 276-4, 8, 2131-12, ####[facility] [place] LABCLIA [id number] XtremeMortgageWorxD KnowFuDESK [address] [place] [address] [place] Urea nitrogen [Mass/Vol] 11 mg/dL Normal 7-[address] [facility] Comment on above: Order Comment: Speci men Type: BLOOD SPECIMENOrdering Facility: [facility] CenterC[facility] [place] Address: [address] [place] [address] Performed By: #### 2 276-4, 8, 2131-12, ####[facility] [place] LABCLIA [id number] [facility]EL[facility] [address] [address] [place] Ferritin SerPl-mCncon 2024 Ferritin [Mass/Vol] 22.4 ng/mL Normal 14.7-205.1 [facility] Comment on above: Order Comment: Speci men Type: BLOOD SPECIMENOrdering Facility: [facility] Address: [address] [place] [address] Performed By: #### 2 276-4, 8, 2131-12, ####[facility] [place] LABCLIA [id number] [facility] [place] [id number] [place] Folate SerPl-mCncon 11-22-19 Folate [Mass/Vol] 5.2 ng/mL Normal >4.7 [facility] Comment on above: Order Comment: Speci men Type: BLOOD SPECIMENOrdering Facility: [facility] Address: [address] [place] [address] Performed By: #### 2 276-4, 8, 2131-12, 77952-6 ####[facility] [place] LABCLIA [id number] [address] [address] [place] HbA1c (Bld)on 11-21-2024 Average glucose Estimated from glycated hemoglobin (Bld) [Mass/Vol] 103 mg/dL Normal [facility] Comment on above: Order Comment: Speci men Type: BLOOD SPECIMENOrdering Facility: [facility] Address: [address] [place] [address] Result Comment: eAG: (Estimated average glucose) is a calculated value from HgbA1c and is patient financial representative of the average blood glucose level in the last 2-3 month period. Performed By: #### 5 5454-3 ####[facility] [place] LABCLIA [id number] [address] [address] [place] HbA1c (Bld) [Mass fraction] 5.2 % Normal 4.3-5.[address] [facility] Comment on above: Order Comment: Speci men Type: BLOOD SPECIMENOrdering Facility: [facility] [place] Address: [address] [place] [address] Result Comment: Amer ican Diabetes Association guidelines indicate that patients with HgbA1c in the range 5.7-6.4% are at increased risk for development of diabetes, and intervention by lifestyle modification may be beneficial. HgbA1c greater or equal to 6.5% is considered diagnostic of diabetes. Performed By: #### 5 5454-3 ####[facility] [place] LABCLIA [id number] [address] [address] [place] Iron SerPl-mCncon 11-21-2024 Iron [Mass/Vol] 70 ug/dL Normal 41-[address] [facility] Comment on above: Order Comment: Speci men Type: BLOOD SPECIMENOrdering Facility: [facility] [place] Address: [address] [place] [address] Performed By: #### 2 498-4, 01317-8, 01938-9, 3016-3 ####[facility] [place] LABCLIA [id number] [address] [address] [place] Lipid 1996 panelon 5 Cholesterol [Mass/Vol] 215 mg/dL High <[address] [facility] Comment on above: Order Comment: Speci men Type: BLOOD SPECIMENOrdering Facility: [facility] [place] Address: [address] [place] [address] Result Comment: <200 mg/dL, Desirable 200-239 mg/dL, Borderline high >239 mg/dL, High Performed By: #### 2 498-4, 29634-1, 99772-1, 3016-3 ####[facility] [place] LABCLIA [id number] [address] [address] [place] Cholesterol in HDL [Mass/Vol] 68 mg/dL Normal >[address] [facility] Comment on above: Order Comment: Speci men Type: BLOOD SPECIMENOrdering Facility: [facility] CenterC[facility] [place] Address: [address] [place] [address] Result Comment: 40-5 9 mg/dL, Acceptable >59 mg/dL, High: Negative risk factor for coronary heart disease <40 mg/dL, Low: Positive risk factor for coronary heart disease Performed By: #### 2 498-4, , 80381-3, 3015-3 ####[facility] DAYTONIA [id number] [address] [address] [place] Cholesterol in LDL [Mass/Vol] 132 mg/dL High <[address] [facility] Comment on above: Order Comment: Vi demetrice Type: BLOOD SPECIMENOrdering Facility: [facility] Address: [address] [place] [address] Result Comment: <100 mg/dL, Optimal 100-129 mg/dL, Near optimal/above optimal 130-159 mg/dL, Borderline high 160-189 mg/dL, High >189 mg/dL, Very high Secondary prevention optimal LDL Cholesterol levels are recommended to be <70 mg/dL LDL cholesterol is calculated using the Smith-NIH equation. Performed By: #### 2 498-4, , 88684-0, 3015-3 ####[facility] [id number] [address] [address] [place] Cholesterol in LDL/Cholesterol in HDL [Mass ratio] 1.94 {ratio} Normal <2.[address] [facility] Comment on above: Order Comment: Vi suresh Type: BLOOD SPECIMENOrdering Facility: [facility] CenterC[facility] [place] Address: [address] [place] [address] Result Comment: Refe tanner: 1. National Cholesterol Education Program ATP III Guideline At-A-Glance Quick Desk Reference: National Heart, Lung, and Blood [place]. National Institutes of Health. 2001: NIH Publication No. 01-3305. 2. An International Atherosclerosis Society position paper: global recommendations for the management of dyslipidemia: executive summary, Atherosclerosis. 2014: 232(2):410-413. Performed By: #### 2 498-4, 24726-1, 50889-6, 3016-3 ####[facility] [place] LABCLIA [id number] [address] [address] [place] Cholesterol in VLDL [Mass/Vol] 15 mg/dL Normal <[address] [facility] Comment on above: Order Comment: Speci men Type: BLOOD SPECIMENOrdering Facility: [facility] [place] Address: [address] [place] [address] Performed By: #### 2 498-4, , 26263-4, 6-3 ####[facility] [place] LABCLIA [id number] [place] [address] [place] Cholesterol non HDL [Mass/Vol] 147 mg/dL High <[address] [facility] Comment on above: Order Comment: Speci men Type: BLOOD SPECIMENOrdering Facility: [facility] [place] Address: [address] [place] [address] Result Comment: <130 mg/dL, Optimal 130-159 mg/dL, Near optimal/above optimal 160-189 mg/dL, Borderline high 190-219 mg/dL, High >219 mg/dL, Very high Secondary prevention optimal non HDL Cholesterol levels are recommended to be <100 mg/dL Performed By: #### 2 498-4, 83803-6, 94781-4, 3016-3 ####[facility] [place] LABCLIA [id number] [address] [address] [place] Cholesterol.total/Ch olesterol in HDL [Mass ratio] 3.16 {ratio} Normal <5.[address] [facility] Comment on above: Order Comment: Speci men Type: BLOOD SPECIMENOrdering Facility: [facility] [place] Address: [address] [place] [address] Performed By: #### 2 498-4, 55935-0, 98939-7, 3016-3 ####[facility] [place] LABCLIA [id number] [address] [address] [place] FASTING TIME 12 hrs Normal [facility] Comment on above: Order Comment: Speci men Type: BLOOD SPECIMENOrdering Facility: [facility] Address: [address] [place] [address] Performed By: #### 2 498-4, 99561-4, 84003-8, 3016-3 ####[facility] LABCLIA [id number] [address] [address] [place] Triglyceride [Mass/Vol] 85 mg/dL Normal <[address] [facility] Comment on above: Order Comment: Speci men Type: BLOOD SPECIMENOrdering Facility: [facility] Address: [address] [place] [address] Result Comment: <150 mg/dL, Normal 150-199 mg/dL, Borderline high 200-499 mg/dL, High >499 mg/dL, Very high Performed By: #### 2 498-4, , 86434-6, 3016-3 ####[facility] [facility] [place] LABCLIA [id number] [address] [address] [place] Magnesium SerPl-mCncon 11-21 Magnesium [Mass/Vol] 2.1 mg/dL Normal 1.7-2.3 [facility] Comment on above: Order Comment: Speci men Type: BLOOD SPECIMENOrdering Facility: [facility] Address: [address] [place] [address] Performed By: #### 2 498-4, , 65792-8, 3016-3 ####[facility] [place] LABCLIA [id number] [address] [address] [place] NICOTINE/COTININEon 11-22-19 25 Cotinine [Mass/Vol] <2 Normal <2 [facility] Comment on above: Order Comment: Speci men Type: BLOOD SPECIMENOrdering Facility: [facility] Address: [address] [place] [address] Result Comment: Acti ve tobacco product user: Nicotine concentration: 30 - 50 ng/mL Cotinine concentration: 200 - 800 ng/mL Passive exposure to tobacco: Nicotine concentration: < 2 ng/mL Cotinine concentration: < 8 ng/mL Unexposed non-tobacco user or abstinent user for > 2 weeks: Nicotine concentration: < 2 ng/mL Cotinine concentration: < 2 ng/mL This test was developed, and its performance characteristics determined by the [facility] Department of Pathology and Laboratory Medicine. It has not been cleared or approved by the FDA. The [facility] Department of Pathology and Laboratory Medicine is regulated under CLIA as qualified to perform high-complexity testing. This test is used for clinical purposes. It should not be regarded as investigational or for research. Performed By: #### N ICOT ####[facility] [place] LABCLIA [id number] [place] [address] [place] Nicotine [Mass/Vol] <[address] <[address] [facility] Comment on above: Order Comment: Speci men Type: BLOOD SPECIMENOrdering Facility: [facility] Address: [address] [place] [address] Performed By: #### N ICOT ####[facility] [place] LABCLIA [id number] [place] [address] [place] TSH SerPl-aCncon 11-21-2024 TSH Qn 1.540 m[IU]/L Normal 0.270-4.[address] [facility] Comment on above: Order Comment: Speci men Type: BLOOD SPECIMENOrdering Facility: [facility] Address: [address] [place] [address] Result Comment: If t he patient is , TSH reference range varies by gestational period: First Trimester (weeks 9-12): 0.180-2.990 mIU/L Second Trimester: 0.110-3.980 mIU/L Third Trimester: 0.480-4.710 mIU/L Pedro Rose et al. A Practical Approach for the Verifications and Determination of Site- and Trimester-Specific Reference Intervals for Thyroid Function tests in . Thyroid, 2019:29:3:412-420. Teja E, et al. 2017 Guidelines of the [place] Thy[employer] for the Diagnosis and Management of Thyroid Disease during and the . Thyroid, 2017:27:3:315-389. Performed By: #### 2 498-4, 70767-0, 50120-8, 3016-3 ####[facility] [id number] [address] [address] [place] VITAMIN B1 (THIAMINE), WHOLE BLOODon 11-21-2024 Thiamine (Bld) [Moles/Vol] 90.4 nmol/L Normal 84.3-213.[address] [facility] Comment on above: Order Comment: Speci men Type: BLOOD SPECIMENOrdering Facility: [facility] [place] Address: [address] [place], [place] [address] Result Comment: This assay measures the concentration of thiamine diphosphate (TDP), the primary active form of vitamin B1. Approximately 90 percent of vitamin B1 present in whole blood is TDP. Thiamine and thiamine monophosphate, which comprise the remaining 10 percent, are not measured. This test was developed, and its performance characteristics determined by the [facility] Department of Pathology and Laboratory Medicine. It has not been cleared or approved by the FDA. The [facility] Department of Pathology and Laboratory Medicine is regulated under CLIA as qualified to perform high-complexity testing. This test is used for clinical purposes. It should not be regarded as investigational or for research. Performed By: #### B 1WB ####[facility] [place] LABIA [id number] [address] [address] [place] Vit B12 SerPl-mCncon 025 Cobalamin (Vitamin B12) [Mass/Vol] 285 pg/mL Normal 232-[address] [facility] Comment on above: Order Comment: Speci men Type: BLOOD SPECIMENOrdering Facility: [facility] [place] Address: [address] [place] [address] Performed By: #### 2 276-4, 2284-8, 2-9, 73392-0 ####[facility] [place] LABIA [id number] [address] [address] [place] Zinc SerPl-mCncon 11-21-2024 Zinc [Mass/Vol] 53 ug/dL Low 60-[address] [facility] Comment on above: Order Comment: Speci men Type: BLOOD SPECIMENOrdering Facility: [facility] [place] Address: [address] [place], [place] [address] Result Comment: This test was developed, and its performance characteristics determined by the [facility] Department of Pathology and Laboratory Medicine. It has not been cleared or approved by the FDA. The [facility] Department of Pathology and Laboratory Medicine is regulated under CLIA as qualified to perform high-complexity testing. This test is used for clinical purposes. It should not be regarded as investigational or for research. Performed By: #### 5 763-8 ####[facility] [place] LABCLIA [id number] [address] [place] 36on 11-15-2024 36 Left message fro pat ient to call back to reschedule. Normal [facility] Office Visiton 10-04-2024 Follow-up visit [id number] Michael Browning 1975 F Date Provider Department Center 10/04/2024 [facility] None Family History Problem Relation Age of Onset Diabetes Mother Hypertension Mother Obesity Mother Hypertension Father Obesity Sister Diabetes Brother Hypertension Brother Obesity Brother Hypertension Maternal Grandmother Diabetes Maternal Grandmother Obesity Maternal Grandmother Heart disease Maternal Grandfather Hypertension Maternal Grandfather Diabetes Maternal Grandfather Obesity Maternal Grandfather Family Status - Relation Status Age at Mother Alive Father Sister Brother Maternal Grandmother Maternal Grandfather Level of Service:74623 [place] OFFICE/OUTPATIENT ESTABLISHED LOW MDM 20 MIN Reason for Visit and Comments: Weight Loss [195751] - D/e 07/09 Normal [facility] Progress Noteon 10-04-2024 Progress Note HPI, PHYSICAL EXAM, AND PLAN Patient is here today for follow up of their physician supervised diet and exercise in preparation for weight loss surgery. Weight trend since last visit: gain 5 lb over 1 m stable This patient's excess weight is causing the following co-morbid conditions at this time HTN Plan: Physical Examination: Blood pressure 121/76, pulse 71, height 5' 4 (1.626 m), weight 278 lb 9.6 oz (126 kg). General: This patient is alert and oriented X3 General: This patient is awake, alert, and oriented, and is in no apparent distress. Extremities: No cyanosis, clubbing or edema/ No calf tenderness/No restrictions of movement, is ambulatory without assistance. Neurological: Intact x 4 extremities, no focal deficits notes. Skin: No rashes or lesions noted. Assessment of Current Diet and Exercise Current Diet This patient?s current diet is:80% meal plan Her diet contains adequate amounts of protein, inadequate amounts of healthy fats, adequate amounts of green, leafy vegetables, and adequate amounts of fruits. Her comfort foods include:none Current Activity This patient currently does exercise for 45 Minutes per session, 5 times per week, including the following: walking. Current Eating Behaviors This patients demonstrates the following behaviors as they relate to her eating:structured She eats approximately 4-6 times per day. Her last meal/snack was at 6 am/pm. Plan: HTN: stable. continued medical management, DE and plan for metabolic weight loss and surgery. Advised patient that She must continue to adhere to regular monthly visits to meet the requirements of her insurance company. Additionally, She is to adopt eating plan recommendations and show weight loss trend to demonstrate readiness for the changes that will be required following surgery. Patient's weight pattern does demonstrates meal plan adoption and weight loss each month Physician Diet Recommendations provided in Patient Instructions Patient: [x] To return in one month for follow up. [] Has completed insurance required monthly diet and exercise series [] Needs to continue monthly visits until surgery Current Meds Patient's Medications New Prescriptions No medications on file Previous Medications ATENOLOL (TENORMIN) 50 MG TABLET Take 50 mg by mouth daily. CELECOXIB (CELEBREX) 200 MG CAPSULE Take 200 mg by mouth 2 times daily. HYDROCODONE-ACETAMINOPHEN (NORCO) 5-325 MG TABLET Take 2 tablets by mouth. HYDROXYZINE HCL (ATARAX) 25 MG TABLET Take 25 mg by mouth every 8 hours as needed. LISINOPRIL 10 MG TABLET Take 10 mg by mouth in the morning. MECLIZINE (ANTIVERT) 25 MG TABLET TAKE 1 TABLET BY MOUTH EVERY 6 HOURS NEEDED FOR DIZZINESS OMEPRAZOLE (PRILOSEC) [address] CAPSULE Take 40 mg by mouth in the morning and 40 mg in the evening. PAROXETINE (PAXIL) 20 MG TABLET Take 20 mg by mouth every morning. PAROXETINE (PAXIL) 40 MG TABLET Take 40 mg by mouth daily. RIZATRIPTAN (MAXALT) 10 MG TABLET TAKE 1 TABLET BY MOUTH NEEDED FOR MIGRAINE HEADACHE. TIZANIDINE (ZANAFLEX) 4 MG TABLET Take 4 mg by mouth daily. VITAMIN D PO Take 1 tablet by mouth before bedtime. Modified Medications No medications on file Discontinued Medications No medications on file Started new job Discuss meal planning for the working day I spend a total of 20 minutes on the same day of the visit in discussing/counseling the patient regarding the diet and exercise in the preparation for weight loss surgery.Education on the meal plan and 7 rules of eating is provided. Meal prep is encouraged as a foundation of the meal plan. Food journal is encouraged as a feedback system before and after bariatric surgery. Counseling on no nicotine/alcohol before and after surgery. Exercise and its role in the preparation for weight loss surgery is explained. Is associated with obesity and weight loss is discussed as a treatment option for Full chart review was performed.Clinical documentation is updated and completed. [facility] Office Visiton 09-13-2024 Follow-up visit [id number] Michael Browning 1975 F Date Provider Department Center 09/13/2024 [facility] None Family History Problem Relation Age of Onset Diabetes Mother Hypertension Mother Obesity Mother Hypertension Father Obesity Sister Diabetes Brother Hypertension Brother Obesity Brother Hypertension Maternal Grandmother Diabetes Maternal Grandmother Obesity Maternal Grandmother Heart disease Maternal Grandfather Hypertension Maternal Grandfather Diabetes Maternal Grandfather Obesity Maternal Grandfather Family Status - Relation Status Age at Mother Alive Father Sister Brother Maternal Grandmother Maternal Grandfather Level of Service:66793 [place] OFFICE/OUTPATIENT ESTABLISHED LOW [facility] 20 MIN Reason for Visit and Comments: Weight Loss [505349] - D/E 06/08 [facility] Progress Noteon 09-13-2024 Progress Note HPI, PHYSICAL EXAM, AND PLAN Patient is here today for follow up of their physician supervised diet and exercise in preparation for weight loss surgery. Weight trend since last visit: no change stable This patient's excess weight is causing the following co-morbid conditions at this time HTN Plan: Physical Examination: Blood pressure 118/89, pulse (!) 120, height 5' 4 (1.626 m), weight 273 lb 3.2 oz (124 kg). General: This patient is alert and oriented X3 General: This patient is awake, alert, and oriented, and is in no apparent distress. Extremities: No cyanosis, clubbing or edema/ No calf tenderness/No restrictions of movement, is ambulatory without assistance. Neurological: Intact x 4 extremities, no focal deficits notes. Skin: No rashes or lesions noted. Assessment of Current Diet and Exercise Current Diet This patient?s current diet is:80% meal plan Her diet contains adequate amounts of protein, inadequate amounts of healthy fats, adequate amounts of green, leafy vegetables, and adequate amounts of fruits. Her comfort foods include:none Current Activity This patient currently does exercise for 45 Minutes per session, 5 times per week, including the following: walking. Current Eating Behaviors This patients demonstrates the following behaviors as they relate to her eating:structured She eats approximately 4-5 times per day. Her last meal/snack was at 6 am/pm. Plan: HTN: stable. continued medical management, DE and plan for metabolic weight loss and surgery. Advised patient that She must continue to adhere to regular monthly visits to meet the requirements of her insurance company. Additionally, She is to adopt eating plan recommendations and show weight loss trend to demonstrate readiness for the changes that will be required following surgery. Patient's weight pattern does demonstrates meal plan adoption and weight loss each month Physician Diet Recommendations provided in Patient Instructions Patient: [x] To return in one month for follow up. [] Has completed insurance required monthly diet and exercise series [] Needs to continue monthly visits until surgery Current Meds Patient's Medications New Prescriptions No medications on file Previous Medications ATENOLOL (TENORMIN) 50 MG TABLET Take 50 mg by mouth daily. CELECOXIB (CELEBREX) 200 MG CAPSULE Take 200 mg by mouth 2 times daily. HYDROCODONE-ACETAMINOPHEN (NORCO) 5-325 MG TABLET Take 2 tablets by mouth. HYDROXYZINE HCL (ATARAX) 25 MG TABLET Take 25 mg by mouth every 8 hours as needed. LISINOPRIL 10 MG TABLET Take 10 mg by mouth in the morning. MECLIZINE (ANTIVERT) 25 MG TABLET TAKE 1 TABLET BY MOUTH EVERY 6 HOURS NEEDED FOR DIZZINESS OMEPRAZOLE (PRILOSEC) [address] CAPSULE Take 40 mg by mouth in the morning and 40 mg in the evening. PAROXETINE (PAXIL) 20 MG TABLET Take 20 mg by mouth every morning. PAROXETINE (PAXIL) 40 MG TABLET Take 40 mg by mouth daily. RIZATRIPTAN (MAXALT) 10 MG TABLET TAKE 1 TABLET BY MOUTH NEEDED FOR MIGRAINE HEADACHE. TIZANIDINE (ZANAFLEX) 4 MG TABLET Take 4 mg by mouth daily. VITAMIN D PO Take 1 tablet by mouth before bedtime. Modified Medications No medications on file Discontinued Medications No medications on file Started new job Discuss meal planning for the working day I spend a total of 20 minutes on the same day of the visit in discussing/counseling the patient regarding the diet and exercise in the preparation for weight loss surgery.Education on the meal plan and 7 rules of eating is provided. Meal prep is encouraged as a foundation of the meal plan. Food journal is encouraged as a feedback system before and after bariatric surgery. Counseling on no nicotine/alcohol before and after surgery. Exercise and its role in the preparation for weight loss surgery is explained. Is associated with obesity and weight loss is discussed as a treatment option for Full chart review was performed.Clinical documentation is updated and completed. [facility] CNOVon 09-04-2024 [facility] Office Visit (FAMPWS ) SALMA BROWNING ([id number]) 1975 F [facility] Date Time Provider Department 09/04/24 10:40 AM NEAL GOMEZ FAMWS During your visit today, we recorded the following information about you: Pulse Respiration Blood pressure Weight 68/minute 16/minute 128/90 124.7 kg Neal oGmez APRN.HEARING AID DISPENSER 09/04/2024 10:49 AM Signed Chief Complaint Patient presents with: Mass: Sore spot on left side of head above ear x week HPI Salma Dumontenid is a 49 year old female who presents here today for above reason. Bushra is a 49-year-old female presenting with a painful lesion on the left side of her head. Bushra reports a painful, hard lesion on the left side of her head that appeared over a week ago. She describes the lesion as initially resembling a pimple, which she attempted to pop, resulting in purulent discharge described as yellowish-red. The lesion has since become increasingly painful, to the point where she is unable to sleep on the affected side. She also experiences significant discomfort when brushing her hair due to the lesion. Bushra has a history of a previous MRSA infection that began as a pimple on her chin and required hospitalization for over a week, including plastic surgery. She expresses concern that the current lesion may be similar to her previous MRSA infection. Past medical history, appointments, medications, allergies reviewed. EXAM: BP 128/90 (BP Position: Sitting) Pulse 68 Resp 16 Wt 124.7 kg (275 lb) LMP (LMP Unknown) SpO2 98% BMI 47.20 kg/m? General Appearance: Well appearing, alert, in no acute distress, well-hydrated, well nourished.. Skin: Left side of skull, behind upper lobe of ear; there is a tender, erythematous area with scab present, could not palpate any fluence present. No drainage expressed, mild warmth. Assessment and Plan 1. Localized bacterial skin infection (L08.9) Localized bacterial skin infection on the left side of the scalp, presenting as a hard, painful lump with a scab and minimal surrounding erythema. No current drainage observed, but patient reports previous purulent discharge. Differential diagnosis includes folliculitis with potential MRSA involvement. - Initiated Bactrim DS 1 tablet BID for 10 days to cover MRSA and other common skin pathogens. Advised patient to take medication with food and plenty of water to prevent renal complications. - Educated patient on potential interaction between lisinopril and Bactrim affecting potassium levels, but reassured that short-term use is safe. - Advised against further manipulation or popping of the lesion. - Instructed patient to monitor for worsening symptoms such as increased pain, fever, or drainage. - If symptoms worsen, consider referral to dermatology or surgical intervention for incision and drainage. - Prescription sent to [facility] in [place]. Neal Gomez APRN.NORI This note was partly generated using [employer] voice recognition dictation and may contain some misspelled or inaccurate words missed on review. Recording using [employer] software for draft documentation of the visit was discussed with the patient/authorized patient financial representative; all questions welcomed and answered. Patient/authorized patient financial representative agreed to proceed Neal Gomez APRN.NORI 09/04/2024 10:45 AM Signed We discussed your concerns about the sore on the left side of your head: - I am diagnosing this as a localized bacterial skin infection. - I have prescribed Bactrim DS (sulfamethoxazole/trimethopr im), 1 tablet twice daily for 10 days. This prescription has been sent to your preferred [facility] pharmacy in [place]. - Please take this medication with plenty of food and water to avoid stomach upset and to protect your kidneys. - Be aware that Bactrim can interact with certain medications, such as Lisinopril, if taken for long periods. However, a 10-day course is safe. - Avoid popping or manipulating the sore, as this can worsen the infection. - Monitor the area closely. If the pain worsens, you develop a fever, or you notice increased redness, swelling, or drainage, please contact our office immediately. - If the infection does not improve or worsens, we may need to refer you to dermatology or consider a procedure for incision and drainage. Please follow these instructions and let us know if you have any concerns or if your symptoms do not improve. Allergies As of Date: 09/04/2024 Noted Allergy Reaction BUPROPION 12/30/2007 9 - Itching Date Reviewed: 09/04/2024 Reviewed by: Salma Moody LPN - Fully Assessed Reason for Visit: Mass [64] Cmt: Sore spot on left side of head above ear x week Primary Visit Diagnosis:Localized bacterial skin infection [L08.9, B96.89] Order(s):sulfamethoxazole-tr imethoprim (BACTRIM DS) 800-160 mg per tabletTake 1 tablet by mouth two times a day for 10 d (more content not included)... Normal [facility] Office Visiton 08-16-2024 Follow-up visit [id number] Michael Browning 1975 F Date Provider Department Center 08/16/2024 [id number] None Family History Problem Relation Age of Onset Diabetes Mother Hypertension Mother Obesity Mother Hypertension Father Obesity Sister Diabetes Brother Hypertension Brother Obesity Brother Hypertension Maternal Grandmother Diabetes Maternal Grandmother Obesity Maternal Grandmother Heart disease Maternal Grandfather Hypertension Maternal Grandfather Diabetes Maternal Grandfather Obesity Maternal Grandfather Family Status - Relation Status Age at Mother Alive Father Sister Brother Maternal Grandmother Maternal Grandfather Level of Service:43688 [place] OFFICE/OUTPATIENT ESTABLISHED LOW MDM 20 MIN Reason for Visit and Comments: Weight Loss [366568] - D/E 05/11 Normal [facility] Progress Noteon 08-16-2024 Progress Note HPI, PHYSICAL EXAM, AND PLAN Patient is here today for follow up of their physician supervised diet and exercise in preparation for weight loss surgery. Weight trend since last visit: lost 4 lb over 1 month stable This patient's excess weight is causing the following co-morbid conditions at this time HTN Plan: Physical Examination: BP 138/83 Pulse 83 Ht 5' 4 (1.626 m) Wt 273 lb 9.6 oz (124 kg) BMI 46.96 kg/m? General: This patient is alert and oriented X3 General: This patient is awake, alert, and oriented, and is in no apparent distress. Extremities: No cyanosis, clubbing or edema/ No calf tenderness/No restrictions of movement, is ambulatory without assistance. Neurological: Intact x 4 extremities, no focal deficits notes. Skin: No rashes or lesions noted. Assessment of Current Diet and Exercise Current Diet This patient?s current diet is:80% meal plan Her diet contains adequate amounts of protein, inadequate amounts of healthy fats, adequate amounts of green, leafy vegetables, and adequate amounts of fruits. Her comfort foods include:none Current Activity This patient currently does exercise for 45 Minutes per session, 5 times per week, including the following: walking. Current Eating Behaviors This patients demonstrates the following behaviors as they relate to her eating:structured She eats approximately 4-5 times per day. Her last meal/snack was at 6 am/pm. Plan: HTN: stable. continued medical management, DE and plan for metabolic weight loss and surgery. Advised patient that She must continue to adhere to regular monthly visits to meet the requirements of her insurance company. Additionally, She is to adopt eating plan recommendations and show weight loss trend to demonstrate readiness for the changes that will be required following surgery. Patient's weight pattern does demonstrates meal plan adoption and weight loss each month Physician Diet Recommendations provided in Patient Instructions Patient: [x] To return in one month for follow up. [] Has completed insurance required monthly diet and exercise series [] Needs to continue monthly visits until surgery Current Meds Patient's Medications New Prescriptions No medications on file Previous Medications ATENOLOL (TENORMIN) 50 MG TABLET Take 50 mg by mouth daily. CELECOXIB (CELEBREX) 200 MG CAPSULE Take 200 mg by mouth 2 times daily. HYDROCODONE-ACETAMINOPHEN (NORCO) 5-325 MG TABLET Take 2 tablets by mouth. HYDROXYZINE HCL (ATARAX) 25 MG TABLET Take 25 mg by mouth every 8 hours as needed. LISINOPRIL 10 MG TABLET Take 10 mg by mouth in the morning. MECLIZINE (ANTIVERT) 25 MG TABLET TAKE 1 TABLET BY MOUTH EVERY 6 HOURS NEEDED FOR DIZZINESS OMEPRAZOLE (PRILOSEC) [address] CAPSULE Take 40 mg by mouth in the morning and 40 mg in the evening. PAROXETINE (PAXIL) 20 MG TABLET Take 20 mg by mouth every morning. PAROXETINE (PAXIL) 40 MG TABLET Take 40 mg by mouth daily. RIZATRIPTAN (MAXALT) 10 MG TABLET TAKE 1 TABLET BY MOUTH NEEDED FOR MIGRAINE HEADACHE. TIZANIDINE (ZANAFLEX) 4 MG TABLET Take 4 mg by mouth daily. VITAMIN D PO Take 1 tablet by mouth before bedtime. Modified Medications No medications on file Discontinued Medications No medications on file Will set reminder on the phone for meals I spend a total of 20 minutes on the same day of the visit in discussing/counseling the patient regarding the diet and exercise in the preparation for weight loss surgery.Education on the meal plan and 7 rules of eating is provided. Meal prep is encouraged as a foundation of the meal plan. Food journal is encouraged as a feedback system before and after bariatric surgery. Counseling on no nicotine/alcohol before and after surgery. Exercise and its role in the preparation for weight loss surgery is explained. Is associated with obesity and weight loss is discussed as a treatment option for Full chart review was performed.Clinical documentation is updated and completed. [facility] Office Visiton 07-14-2024 Follow-up visit [id number] Michael Browning 1975 F Date Provider Department Center 07/14/2024 [id number] None Family History Problem Relation Age of Onset Diabetes Mother Hypertension Mother Obesity Mother Hypertension Father Obesity Sister Diabetes Brother Hypertension Brother Obesity Brother Hypertension Maternal Grandmother Diabetes Maternal Grandmother Obesity Maternal Grandmother Heart disease Maternal Grandfather Hypertension Maternal Grandfather Diabetes Maternal Grandfather Obesity Maternal Grandfather Family Status - Relation Status Age at Mother Alive Father Sister Brother Maternal Grandmother Maternal Grandfather Level of Service:58602 [place] OFFICE/OUTPATIENT ESTABLISHED MOD MDM 30 MIN Reason for Visit and Comments: Weight Management [645] - D/E 1 of 6 restart [facility] Progress Noteon 07-14-2024 Progress Note [facility] SURGICAL WEIGHT LOSS MANAGEMENT PROGRAM SUPERVISED DIET AND EXERCISE ROOMING: INITIAL VISIT Patient: Salma Browning Date of : 1975 Service Date: 07/14/2024 Patient is here today to initiate physician-supervised diet and exercise as required by their insurance company prior to approval for weight loss surgery. This patient is alone for the evaluation today This is visit 1 of 6 required visits. Weight Metrics: (From Surgical Weight Loss Management) Today's Vital Signs: Non-Surgical Initial Eval Consult Date: 07/14/24 Initial Height: 5' 4 (162.6 cm) Initial Weight: 277 lb 6.4 oz (126 kg) [place] Body Weight: 131 lb (59.4 kg) Initial BMI: 47.61 Initial Body Fat %: 57.13 EBW: 146 lb (From NonSurgical Weight Loss Tracker) Falls Risk Assessment Patient does take medications which affect BP or mental status Patient does not have newly prescribed or changed dosage of medications within past 30 days which affect BP or mental status Patient has not fallen in the past 2 months Patient uses the following ambulatory assistive devices: none Patient states the presence of the following traits which increases risk of fall: none Patient is noton home O2 Have you received packet of information by mail from our office which includes: Surgical Checklist, lab orders & referral information? Yes Completed by: Roxi Sunshine MA [facility] Progress Note [facility] SURGICAL WEIGHT LOSS MANAGEMENT PROGRAM PHYSICIAN SUPERVISED DIET AND EXERCISE SURGICAL PREPARATORY REGIMEN PROGRESS NOTE reEVALUATION Patient: Salma Browning Service Date: 07/14/24 Date of : 1975 Navigation Plan: Patient History/Assessment Summary: The patient is a pleasant 49 y.o. year old female, who stands Height: 5' 4 (162.6 cm) tall with a weight of Weight: 277 lb 6.4 oz (126 kg) pounds, resulting in a BMI of Body mass index is 47.62 kg/m?. kg/m2. She has been overweight for 10+ years, has tried and failed multiple previous diet attempts, and is now in the process of undergoing evaluation for surgical treatment of their obesity. She is here today to initiate monthly physician supervised diet and exercise as part of their surgical preparatory regimen. History: Past Medical History: Diagnosis Date Anxiety Arthritis Back pain Chest pain on exertion Daytime sleepiness Depression Difficulty sleeping Dizziness Fatigue GERD (gastroesophageal reflux disease) HTN (hypertension) Joint pain, hip Joint pain, knee Memory difficulties Morbid obesity, unspecified obesity type (HCC) 12/22/2023 Muscle weakness Pain management Snoring SOBOE (shortness of breath on exertion) Past Surgical History: Procedure Laterality Date ANKLE SURGERY Left 2005 x 2 - [place] CHOLECYSTECTOMY 2014 FACIAL SURGERY (HISTORICAL) 2019 several for MRSA HYSTERECTOMY 2016 [place] SINUS SURGERY 1999 [place] TONSILLECTOMY 1987 [facility] TUMOR EXCISION 2013 Lipoma of abdomen Family History Problem Relation Name Age of Onset Diabetes Mother Hypertension Mother Obesity Mother Hypertension Father Obesity Sister Diabetes Brother Hypertension Brother Obesity Brother Hypertension Maternal Grandmother Diabetes Maternal Grandmother Obesity Maternal Grandmother Heart disease Maternal Grandfather Hypertension Maternal Grandfather Diabetes Maternal Grandfather Obesity Maternal Grandfather Social History Tobacco Use Smoking status: Never Smokeless tobacco: Never Substance Use Topics Alcohol use: Yes Alcohol/week: 2.0 standard drinks of alcohol Types: 2 Cans of beer per week Comment: 2 beers monthly This patient's excess weight is causing the following co-morbid conditions at this time:HTN Initial Diet & Exercise/SPR Visit Weight Metrics: Date of Initial Diet & Exercise Visit: Consult Date: 07/14/24 Initial Weight: Initial Weight: 277 lb 6.4 oz (126 kg) Initial BMI: Initial BMI: 47.61 [place] Body Weight: [place] Body Weight: 131 lb (59.4 kg) Excess Body Weight: EBW: 146 lb General: This patient is alert and oriented X3 Physical Examination: BP (!) 139/99 Pulse 71 Ht 5' 4 (1.626 m) Wt 277 lb 6.4 oz (126 kg) BMI 47.62 kg/m? General: This patient is obese, and is in no apparent distress. Psychological: Patient is awake, alert and oriented to person, place and time Patient's mood is normal affect Current Diet This patient?s current diet is: 80% meal plan Reviewed PAST DIET HISTORY FORM and CURRENT DIET HISTORY FORM with patient (located in [employer] [facility]) Her diet contains adequate amounts of protein, adequate amounts of healthy fats, adequate amounts of green, leafy vegetables, and adequate amounts of fruits. Her comfort foods include: none Current Activity This patient currently does not exercise.walking daily Current Eating Behaviors This patients demonstrates the following behaviors as they relate to her eating: structured She eats approximately 3 times per day. Her last meal/snack was at 6-7 PM. Plan: Diagnosis Managing: HTN: stable. continued medical management, DE and plan for metabolic weight loss and surgery. Advised patient that She must adhere to regular monthly visits to meet the requirements of her insurance company. Additionally, She must lose approximately one pound per month to demonstrate readiness for the changes that will be required following surgery. Physician Diet Recommendations provided to patient Patient to return for follow up in one month Current Meds Patient's Medications New Prescriptions No medications on file Previous Medications ATENOLOL (TENORMIN) 50 MG TABLET Take 50 mg by mouth daily. CELECOXIB (CELEBREX) 200 MG CAPSULE Take 200 mg by mouth 2 times daily. HYDROCODONE-ACETAMINOPHEN (NORCO) 5-325 MG TABLET Take 2 tablets by mouth. HYDROXYZINE HCL (ATARAX) 25 MG TABLET Take 25 mg by mouth every 8 hours as needed. LISINOPRIL 10 MG TABLET Take 10 mg by mouth in the morning. MECLIZINE (ANTIVERT) 25 MG TABLET TAKE 1 TABLET BY MOUTH EVERY 6 HOURS NEEDED FOR DIZZINESS OMEPRAZOLE (PRILOSEC) [address] CAPSULE Take 40 mg by mouth in the morning and 40 mg in the evening. PAROXETINE (PAXIL) 20 MG TABLET Take 20 mg by mouth every morning. PAROXETINE (PAXIL) 40 MG TABLET Take 40 mg by mouth daily. RIZATRIPTAN (MAXALT) 10 MG (more content not included)... [facility] 06-30-2024 36 Spoke with this teresa ent, she has been scheduled with NK on 07/14. D/E [facility] 06-29-2024 36 Patient left vmail t hat she is still interested in surgery and would like to schedule an appointment. Please call her to schedule a de visit- this will now be de . [facility] 05-02-2024 36 Lvm for return call to see if pt still interested in program. Has not been seen for de in almost 2 months. [facility] 36on 04-10-2024 36 I called this patien t to reschedule a canceled visit from March with no answer. I left a voicemail and a callback number. [facility] 36 Please call patient to schedule her d/e that she missed in March. Thanks! [facility] CNOVon 03-14-2024 CNOV Office Visit (WSTR ) SALMA BROWNING ([id number]) 1975 F CHT Date Time Provider Department 03/14/24 10:30 AM JOHN NIEVES [facility] During your visit today, we recorded the following information about you: Temperature Pulse Respiration Blood pressure 98.1 degrees 94/minute 16/minute 122/76 Weight 121.6 kg John Neives PA 03/14/2024 11:10 AM Signed This note was created using [employer]. Subjective Salma Browning is a 49 year old female. HPI 49-year-old female presents for cough, congestion, sore throat, fatigue x 4 days. Patient states on Wednesday she starting sore throat. She started feeling worse over the weekend. She states that she has a productive cough. She states that she has pain in her chest due to coughing so much. She states that she feels short of breath when she is in coughing fits. She states she coughs all night long and throughout the day. She has no history of COPD or asthma. She has taken [id number] medications without improvement in symptoms. She has not any vomiting or diarrhea. No fevers. No other complaint. PAST MEDICAL HISTORY Diagnosis Date Abnormal antibody titer On type and screen during #2. Repeat nl, no major antibodies, negative repeat antibody screen. ?False positive. Abnormal Pap smear of cervix Acute gastritis without mention of hemorrhage Atrophic gastritis 2010 CHOLELITHIASIS See also GALLBLADDER 08/26/2005 Congenital choledochal cyst Depression Depressive disorder, not elsewhere classified Diaphragmatic hernia without mention of obstruction or gangrene Esophagitis, unspecified Fatty tumor of liver 2005 FX LATERAL MALLEOLUS-CLOSE 09/03/2008 GERD (gastroesophageal reflux disease) 03/15/2012 On 3 meds in . ?hiatal hernia. 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 Dr Rivera Pre-eclampsia added to pre-existing hypertension 11/17/2014 Unspecified hemorrhoids without mention of complication Hemorrhoids PAST SURGICAL HISTORY Procedure Laterality Date CHOLECYSTECTOMY COLONOSCOPY FLX DX W/COLLJ SPEC WHEN PFRMD 05/09/2019 Colonoscopy EGD TRANSORAL BIOPSY SINGLE/MULTIPLE 09/22/10 ESOPHAGOGASTRODUODENOSCOPY TRANSORAL DIAGNOSTIC 05/09/2019 EGD HYSTERECTOMY HX 2017 [facility] PAST SURGICAL HISTORY OF Tumor removed from stomach, benign per pt PAST SURGICAL HISTORY OF 03/2009 left ankle fracture REM LESIO TRUNK,ARM,LEG 1.1 -2.0CM REMOVAL DEEP IMPLANT 12/06/09 Performed by KATHI POWELL at [facility] RPR DISLOC PERONEAL TENDON W/O FIBULAR OSTEOTOMY 12/06/09 Performed by KATHI POWELL at [facility] SIGMOIDOSCOPY FLX DX W/COLLJ SPEC BR/WA IF PFRMD 06/2004 Sigmoidoscopy, flexible SINUSOTOMY MAXILLARY ANTROTOMY INTRANASAL Byrd-Elliott sinusotomy TONSILLECTOMY PRIMARY/SECONDARY Tonsillectomy VAGINOSCOPY ALLERGIES Bupropion MEDICATIONS rizatriptan (MAXALT) 10 mg tablet Take 1 tablet (10 mg) by mouth as needed for migraine headache (see administration instructions). omeprazole (PRILOSEC) 40 mg capsule Take 1 capsule by mouth two times a day. hydrOXYzine HCl (ATARAX) 25 mg tablet Take 1 tablet by mouth three times a day as needed for anxiety. PARoxetine (PAXIL) 20 mg tablet Take 1 tablet by mouth once daily. Take with additional 40 mg tablet. lisinopril (ZESTRIL) 10 mg tablet Take 1 tablet by mouth once daily. topiramate (TOPAMAX) 25 mg capsule Take 1 capsule by mouth two times a day. tiZANidine (ZANAFLEX) 4 mg tablet Take 1 tablet by mouth once daily. PARoxetine (PAXIL) 40 mg tablet Take 1 tablet by mouth once daily. Cholecalciferol, Vitamin D3, (DIALYVITE VITAMIN D) 125 mcg (5,000 unit) cap Take 1 capsule by mouth once daily. celecoxib (CELEBREX) 200 mg capsule Take 1 capsule by mouth twice daily NIFEdipine XL (ADALAT CC) 30 mg 24 hr tablet Take 1 tablet by mouth once daily. Pseudoephedrine-guaiFENesin (MUCINEX D MAXIMUM STRENGTH) 120-1,200 mg tab ER 12 hr Take 1 tablet by mouth once daily as needed (congestion). (Patient not taking: Reported on 12/03/2023) benzonatate (TESSALON PERLES) 100 mg capsule Take 1 capsule by mouth three times a day as needed for cough. (Patient not taking: Reported on 10/20/2023) FAMILY HISTORY Problem Relation Age of Onset Diabetes Mother other (colon polyps [Other]) Father no cancer found Heart Father Hypertension Father Ischemic Heart Disease Father Coronary Artery Disease Father COPD Father Thyroid Brother Social History Tobacco Use Smoking status: Never Smokeless tobacco: Never Vaping Use Vaping status: Never Used Substance Use Topics Alcohol use: Yes Comment: rarely, 1-2 weekends per month 5 drinks (prior to ) Drug use: No Review of Systems Constitutional: Positive for fatigue. Negative for chills an (more content not included)... Normal [facility] STREP A MOLECULAR (POC)on Procedural Control Valid [facility] Strep A (POCT) Negative Negative [facility] XR CHEST 2V FRONTAL/LATon XR CHEST 2V FRONTAL/LAT * * *Final Report* * * DATE OF EXAM: Mar 14 2024 10:57AM WOX [id number] - XR CHEST 2V FRONTAL/LAT / PROCEDURE REASON: multiple diagnoses * * * * Physician Interpretation * * * * EXAMINATION: CHEST RADIOGRAPH (2 VIEW FRONTAL and LATERAL) CLINICAL HISTORY: Acute cough SOB (shortness of breath) MQ: XC2_6 EXAM DATE/TIME: 03/14/2024 10:57 AM COMPARISON: 10/20/2023 RESULT: Lines, tubes, and devices: None. Lungs and pleura: No consolidation. No lung mass. No pleural effusion. No pneumothorax. Linear scarring/atelectasis in the middle lobe and lingula. Cardiomediastinal silhouette: Normal cardiomediastinal silhouette. Bones and soft tissues: Unremarkable. IMPRESSION: No acute radiographic abnormality. Power Engineer: SANDHYA Transcribe Date/Time: Mar 14 2024 11:01A Dictated by : NANI JONES MD This examination was interpreted and the report reviewed and electronically signed by: NANI JONES MD on Mar 14 2024 11:02AM EST [id number] Normal [facility] XR Chest PA and Lateralon IMPRESSION: No acute radiographic abnormality. Power Engineer: PSCB Transcribe Date/Time: Mar 14 2024 11:01A Dictated by : NANI JONES MD This examination was interpreted and the report reviewed and electronically signed by: NANI JONES MD on Mar 14 2024 11:02AM EST DIVISION OF RADIOLOGY * * *Final Report* * * DATE OF EXAM: Mar 14 2024 10:57AM WOX [id number] - XR CHEST 2V FRONTAL/LAT / PROCEDURE REASON: multiple diagnoses * * * * Physician Interpretation * * * * EXAMINATION: CHEST RADIOGRAPH (2 VIEW FRONTAL & LATERAL) CLINICAL HISTORY: Acute cough SOB (shortness of breath) MQ: XC2_6 EXAM DATE/TIME: 03/14/2024 10:57 AM COMPARISON: 10/20/2023 RESULT: Lines, tubes, and devices: None. Lungs and pleura: No consolidation. No lung mass. No pleural effusion. No pneumothorax. Linear scarring/atelectasis in the middle lobe and lingula. Cardiomediastinal silhouette: Normal cardiomediastinal silhouette. Bones and soft tissues: Unremarkable. DIVISION OF RADIOLOGY Provider, [facility] - 03/14/2024 * * *Final Report* * * DATE OF EXAM: Mar 14 2024 10:57AM WOX [id number] - XR CHEST 2V FRONTAL/LAT / PROCEDURE REASON: multiple diagnoses * * * * Physician Interpretation * * * * EXAMINATION: CHEST RADIOGRAPH (2 VIEW FRONTAL & LATERAL) CLINICAL HISTORY: Acute cough SOB (shortness of breath) MQ: XC2_6 EXAM DATE/TIME: 03/14/2024 10:57 AM COMPARISON: 10/20/2023 RESULT: Lines, tubes, and devices: None. Lungs and pleura: No consolidation. No lung mass. No pleural effusion. No pneumothorax. Linear scarring/atelectasis in the middle lobe and lingula. Cardiomediastinal silhouette: Normal cardiomediastinal silhouette. Bones and soft tissues: Unremarkable. IMPRESSION IMPRESSION: No acute radiographic abnormality. Power Engineer: PSCB Transcribe Date/Time: Mar 14 2024 11:01A Dictated by : NANI JONES MD This examination was interpreted and the report reviewed and electronically signed by: NANI JONES MD on Mar 14 2024 11:02AM EST [facility] Radiology Study observation (narrative) [facility] XR Chest PA and LateralOrder ed By: Ccf Provider on 03-14-2024 [facility] Op Noteon 03-10-2024 Op Note [facility]- [facility] Patient Name: Salma Browning Procedure Date: 03/10/2024 9:42 AM Gender: Female Date of : 1975 Age: 49 Admit Type: Outpatient Note Status: Finalized Endoscopist: Nate Winters MD, [id number] Procedure: Upper GI endoscopy Indications: Heartburn Findings: Mild inflammation was found in the gastric antrum. Biopsies were taken with a cold forceps for Helicobacter pylori testing. Impression: - Gastritis. Biopsied. Recommendation: - Patient has a contact number available for emergencies. The signs and symptoms of potential delayed complications were discussed with the patient. Return to normal activities tomorrow. Written discharge instructions were provided to the patient. - Resume previous diet. - Continue present medications. - Await pathology results. Referring MD: Susan Sevilla Medicines: Monitored Anesthesia Care Procedure: Pre-Anesthesia Assessment: - Prior to the procedure, a History and Physical was performed, and patient medications and allergies were reviewed. The patient's tolerance of previous anesthesia was also reviewed. The risks and benefits of the procedure and the sedation options and risks were discussed with the patient. All questions were answered, and informed consent was obtained. Prior Anticoagulants: The patient has taken no anticoagulant or antiplatelet agents. ASA Grade Assessment: per anesthesia endoscopic documentation. After reviewing the risks and benefits, the patient was deemed in satisfactory condition to undergo the procedure. - The anesthesia plan was to use monitored anesthesia care (MAC). After obtaining informed consent, the endoscope was passed under direct vision. Throughout the procedure, the patient's blood pressure, pulse, and oxygen saturations were monitored continuously. The Endoscope was introduced through the mouth, and advanced to the second part of duodenum. The upper GI endoscopy was accomplished without difficulty. The patient tolerated the procedure well. Complications: No immediate complications. Procedure Code(s): --- Professional --- 90225, Esophagogastroduodenoscopy, flexible, transoral; with biopsy, single or multiple --- Technical --- 11493, Esophagogastroduodenoscopy, flexible, transoral; with biopsy, single or multiple Diagnosis Code(s): --- Professional --- K29.70, Gastritis, unspecified, without bleeding R12, Heartburn --- Technical --- K29.70, Gastritis, unspecified, without bleeding R12, Heartburn CPT copyright 2021 [employer]. All rights reserved. The codes documented in this report are preliminary and upon business management consultant review may be revised to meet current compliance requirements. Attending Participation: I personally performed the entire procedure. Nate Winters MD. Nate Winters MD 03/10/2024 10:23:38 AM This report has been signed electronically. Number of Addenda: 0 Note Initiated On: 03/10/2024 9:42 AM [facility] Office Visiton 02-11-2024 Follow-up visit [id number] Michael Browning 1975 F Date Provider Department Center 02/11/2024 [id number] None Family History Problem Relation Age of Onset Diabetes Mother Hypertension Mother Obesity Mother Hypertension Father Obesity Sister Diabetes Brother Hypertension Brother Obesity Brother Hypertension Maternal Grandmother Diabetes Maternal Grandmother Obesity Maternal Grandmother Heart disease Maternal Grandfather Hypertension Maternal Grandfather Diabetes Maternal Grandfather Obesity Maternal Grandfather Family Status - Relation Status Age at Mother Alive Father Sister Brother Maternal Grandmother Maternal Grandfather Level of Service:97592 [place] OFFICE/OUTPATIENT NEW MODERATE MDM 45 MINUTES Reason for Visit and Comments: Weight Management [645] - D/E new 1 of 6 [facility] Progress Noteon 02-11-2024 Progress Note [facility] SURGICAL WEIGHT LOSS MANAGEMENT PROGRAM PHYSICIAN SUPERVISED DIET AND EXERCISE SURGICAL PREPARATORY REGIMEN PROGRESS NOTE INITIAL EVALUATION Patient: Salma Browning Service Date: 02/11/24 Date of : 1975 Navigation Plan: Patient History/Assessment Summary: The patient is a pleasant 49 y.o. year old female, who stands Height: 5' 4 (162.6 cm) tall with a weight of Weight: 271 lb 3.2 oz (123 kg) pounds, resulting in a BMI of Body mass index is 46.55 kg/m?. kg/m2. She has been overweight for 10+ years, has tried and failed multiple previous diet attempts, and is now in the process of undergoing evaluation for surgical treatment of their obesity. She is here today to initiate monthly physician supervised diet and exercise as part of their surgical preparatory regimen. History: Past Medical History: Diagnosis Date Anxiety Arthritis Back pain Chest pain on exertion Daytime sleepiness Depression Difficulty sleeping Dizziness Fatigue GERD (gastroesophageal reflux disease) HTN (hypertension) Joint pain, hip Joint pain, knee Memory difficulties Morbid obesity, unspecified obesity type (HCC) 12/22/2023 Muscle weakness Pain management Snoring SOBOE (shortness of breath on exertion) Past Surgical History: Procedure Laterality Date ANKLE SURGERY 2005 x 2 - [place] CHOLECYSTECTOMY 2014 FACIAL SURGERY (HISTORICAL) 2019 several for MRSA HYSTERECTOMY 2016 [place] SINUS SURGERY 1999 [place] TONSILLECTOMY 1987 [facility] TUMOR EXCISION 2014 Lipoma of abdomen Family History Problem Relation Name Age of Onset Diabetes Mother Hypertension Mother Obesity Mother Hypertension Father Obesity Sister Diabetes Brother Hypertension Brother Obesity Brother Hypertension Maternal Grandmother Diabetes Maternal Grandmother Obesity Maternal Grandmother Heart disease Maternal Grandfather Hypertension Maternal Grandfather Diabetes Maternal Grandfather Obesity Maternal Grandfather Social History Tobacco Use Smoking status: Never Smokeless tobacco: Never Substance Use Topics Alcohol use: Yes Alcohol/week: 2.0 standard drinks of alcohol Types: 2 Cans of beer per week Comment: 2 cans weekly This patient's excess weight is causing the following co-morbid conditions at this time:HTN Initial Diet & Exercise/SPR Visit Weight Metrics: Date of Initial Diet & Exercise Visit: Consult Date: 02/11/24 Initial Weight: Initial Weight: 271 lb 3.2 oz (123 kg) Initial BMI: Initial BMI: 46.55 [place] Body Weight: [place] Body Weight: 131 lb (59.4 kg) Excess Body Weight: EBW: 140 lb General: This patient is alert and oriented X3 Physical Examination: BP 118/79 Pulse 77 Ht 5' 4 (1.626 m) Wt 271 lb 3.2 oz (123 kg) BMI 46.55 kg/m? General: This patient is obese, and is in no apparent distress. Psychological: Patient is awake, alert and oriented to person, place and time Patient's mood is normal affect Current Diet This patient?s current diet is: 50% meal plan Reviewed PAST DIET HISTORY FORM and CURRENT DIET HISTORY FORM with patient (located in [employer] [facility]) Her diet contains adequate amounts of protein, adequate amounts of healthy fats, adequate amounts of green, leafy vegetables, and adequate amounts of fruits. Her comfort foods include: none Current Activity This patient currently does exercise for 11k steps per session, 7 times per week, including the following: walking. Current Eating Behaviors This patients demonstrates the following behaviors as they relate to her eating: skipping meals She eats approximately 5-6 times per day. Her last meal/snack was at 6 PM. Plan: Diagnosis Managing: HTN: stable. continued medical management, DE and plan for metabolic weight loss and surgery. Advised patient that She must adhere to regular monthly visits to meet the requirements of her insurance company. Additionally, She must lose approximately one pound per month to demonstrate readiness for the changes that will be required following surgery. Physician Diet Recommendations provided to patient Patient to return for follow up in one month Current Meds Patient's Medications New Prescriptions No medications on file Previous Medications ATENOLOL (TENORMIN) 50 MG TABLET Take 50 mg by mouth daily. MBEYWGVGZR-OFGQTEAJPYLOL-FSH FEINE (FIORICET) 50-300-40 MG CAPSULE Take 1 capsule by mouth. CELECOXIB (CELEBREX) 200 MG CAPSULE Take 200 mg by mouth 2 times daily. HYDROCODONE-ACETAMINOPHEN (NORCO) 5-325 MG TABLET Take 2 tablets by mouth. HYDROXYZINE HCL (ATARAX) 25 MG TABLET Take 25 mg by mouth every 8 hours as needed. LISINOPRIL 10 MG TABLET Take 10 mg by mouth in the morning. MECLIZINE (ANTIVERT) 25 MG TABLET TAKE 1 TABLET BY MOUTH EVERY 6 HOURS NEEDED FOR DIZZINESS NIFEDIPINE XL (PROCARDIA XL) 30 MG 24 HR TABLET Take 30 mg by mouth daily. OMEPRAZOLE (PRILOSEC) 40 MG (more content not included)... [facility] Progress Note [facility] SURGICAL WEIGHT LOSS MANAGEMENT PROGRAM SUPERVISED DIET AND EXERCISE ROOMING: INITIAL VISIT Patient: Salma Browning Date of : 1975 Service Date: 02/11/2024 Patient is here today to initiate physician-supervised diet and exercise as required by their insurance company prior to approval for weight loss surgery. This patient is alone for the evaluation today This is visit 1 of 6 required visits. Weight Metrics: (From Surgical Weight Loss Management) Today's Vital Signs: Non-Surgical Initial Eval Consult Date: 02/11/24 Initial Height: 5' 4 (162.6 cm) Initial Weight: 271 lb 3.2 oz (123 kg) [place] Body Weight: 131 lb (59.4 kg) Initial BMI: 46.55 Initial Body Fat %: 55.86 EBW: 140 lb (From NonSurgical Weight Loss Tracker) Falls Risk Assessment Patient does take medications which affect BP or mental status Patient does not have newly prescribed or changed dosage of medications within past 30 days which affect BP or mental status Patient has not fallen in the past 2 months Patient uses the following ambulatory assistive devices: none Patient states the presence of the following traits which increases risk of fall: none Patient is noton home O2 Have you received packet of information by mail from our office which includes: Surgical Checklist, lab orders & referral information? Yes Completed by: Roxi Sunshine MA [facility] 36on 01-14-2024 36 PRE-OP CHECKLIST [facility] NNED ORDERS MAILED [facility] 36 Orders signed. Check list completed. EGD order placed and routed to production scheduler. [facility] Progress Noteon 01-14-2024 Progress Note Printed [facility] Progress Note Auth required: No Insurance: [facility] [place] I Notes: No Auth Required for CPT Code 74969 [facility] Progress Note Patient is scheduled for EGD with biopsy- CPT 15360 on March 10, 2024 at 10:20 am. Contact attempts- 3 must be made in 2 different forms. Discussed with patient via phone and sent Adomo message after confirming pt active on Adomo Important info discussed as applicable: Is patient on a GLP-1 agonist? No If yes- which one? N/A Please advise that patient hold this medication for 1 week before EGD (a couple exceptions in list-please note if they are daily only held day prior to procedure) Is patient on a blood thinner? No If yes- which one? N/A Please advise that patient discuss instructions for holding this medication with the prescribing provider [facility] Progress Note Left VM for patient to call and schedule EGD. [facility] Progress Note ENDOSCOPY ORDERS To be scheduled with: Dr. Winters Patient is: Pre-op/Pre-Bariatric Surgery CPT code: EGD with biopsy- CPT 96786 Diagnosis: GERD- K21.9 If pre-op, Diet & Exercise Requirements are, and started/scheduled on : 6 months Home O2: No Known Difficult Intubation: No The medication list needs reviewed at time of scheduling and again at time of reminder call. GLP-1 agonists: Semaglutide Brand names- Ozempic or Wegovy- needs held 1 week prior to procedure Brand name- Rybelsus PO daily dosing and just needs held 1 day before procedure Tirzepatide Brand names- Mounjaro or Zepbound- needs held 1 week prior to procedure Dulaglutide (Trulicity)- needs held 1 week prior to procedure Liraglutide (Victoza)- daily injectable that just needs held 1 day before procedure) Exenatide Brand name Bydureon- needs held 1 week prior to procedure Brand name Byetta- daily injectable and just needs held 1 day before procedure Blood thinners: Aspirin Xarleto (rivaroxaban) Eliquis (apixaban) Plavix (clopidogrel) Warfarin/Jantoven (coumadin) Brillinta (ticagrelor) Pradaxa (dabigatran) If endoscopy is scheduled within 17 days authorization will need to be obtained prior to scheduling [facility] Office Visiton 01-04-2024 Follow-up visit [id number] Michael Browning 1975 F Date Provider Department Center 01/04/2024 91383-[facility]OWDAN[facility] SURG None Family History Problem Relation Age of Onset Diabetes Mother Hypertension Mother Obesity Mother Hypertension Father Obesity Sister Diabetes Brother Hypertension Brother Obesity Brother Hypertension Maternal Grandmother Diabetes Maternal Grandmother Obesity Maternal Grandmother Heart disease Maternal Grandfather Hypertension Maternal Grandfather Diabetes Maternal Grandfather Obesity Maternal Grandfather Family Status - Relation Status Age at Mother Alive Father Sister Brother Maternal Grandmother Maternal Grandfather Level of Service:25704 [place] OFFICE/OUTPATIENT NEW MODERATE MDM 45 MINUTES Reason for Visit and Comments: Surgical Consult [878] - [facility] Progress Noteon 01-04-2024 Progress Note [facility] SURGICAL WEIGHT LOSS MANAGEMENT PROGRAM Rooming Note - INITIAL CONSULTATION Patient: Salma Browning Date of : 1975 Service Date: 01/04/2024 Patient is here today to discuss the possibility of weight loss surgery. Physician Supervised D/E: 6 Weight Metrics: Vitals BP: 138/86 Heart Rate: 78 Resp: 16 Temp: 36.1 ?C (97 ?F) Baseline Measures Initial Height: 5' 4 (162.6 cm) Initial Weight: 269 lb 6.4 oz (122 kg) Initial BMI: 46.3 Initial EBW: 149 lb 6.4 oz (67.8 kg) Initial Waist Cricumference: 51 Initial Neck Circumference: 16.5 History of Difficult Intubation: No Patient is not on home O2 Completed by: Fátima Marin LPN [facility] Miscellaneous Lab Procedureo n 12-26-2023 [facility] LAB TEST [facility] Comment on above: Order Comment: RUN L OWEST TEST [id number] URINE TOX Result Comment: [id number] [id number] 6+OXYCODONE-BUND (ng/mL) DRUG RESULT SCREEN CUTOFF ____ Amphetamines,Urine Negative ng/mL 1000 Amphetamine test includes Amphetamine and Methamphetamine. Barbiturates Negative ng/mL 200 Benzodiazepines Negative ng/mL 200 Cannabinoid Negative ng/mL 20 Cocaine (Metab) Negative ng/mL 300 Opiates Negative ng/mL 300 Opiates test includes Codeine, Morphine, Hydromorphone, Hydrocodone. Oxycodone/Oxymorphone,Urine Negative ng/mL 300 Test includes Oxycodone and Oxymorphone. TESTING PERFORMED AT [facility]. ORIGINAL REPORT ON FILE IN LAB CONTAINS ADDITIONAL TEST SITE INFORMATION. Performed By: #### L 505.5000, L801.1541 #### [facility] [address] [facility] [address] Urine Drug Screen (VISTA)on 12-23-2023 AMPHETAMINES Negative Normal <1000 ng/mL [facility] Comment on above: Order Comment: RUN L OWEST TEST MEDTOX Performed By: #### L 505.5000, L801.1541 #### [facility] [address] [place], [address] BARBITIURATES Negative Normal < 200 ng/mL [facility] Comment on above: Order Comment: RUN L OWEST TEST MEDTOX Performed By: #### L 505.5000, L801.1541 #### [facility] [address] [place], [address] BENZODIAZIPINE Negative Normal < 200 ng/mL [facility] Comment on above: Order Comment: RUN L OWEST TEST MEDTOX Performed By: #### L 505.5000, L801.1541 #### [facility] [address] [facility] [address] COCAINE Negative Normal < 300 ng/mL [facility] Comment on above: Order Comment: RUN L OWEST TEST MEDTOX Performed By: #### L 505.5000, L801.1541 #### [facility] [address] [facility] [address] ECSTACY Negative Normal < 500 ng/mL [facility] Comment on above: Order Comment: RUN L OWEST TEST MEDTOX Performed By: #### L 505.5000, L801.1541 #### [facility] [address] [place], [address] METHADONE Negative Normal < 300 ng/mL [facility] Comment on above: Order Comment: RUN L OWEST TEST MEDTOX Performed By: #### L 505.5000, L801.1541 #### [facility] [address] [place], [address] OPIATES Negative Normal < 300 ng/mL [facility] Comment on above: Order Comment: RUN L OWEST TEST MEDTOX Performed By: #### L 505.5000, L801.1541 #### [facility] [address] [place], [address] PCP Negative Normal < 25 ng/mL [facility] Comment on above: Order Comment: RUN L OWEST TEST MEDTOX Performed By: #### L 505.5000, L801.1541 #### [facility] [address] [place], [address] THC Negative Normal < 50 ng/mL [facility] Comment on above: Order Comment: RUN L OWEST TEST MEDTOX Performed By: #### L 505.5000, L801.1541 #### [facility] [address] [place], [address] VISTA UDS PH 4 Normal [facility] Comment on above: Order Comment: RUN L OWEST TEST MEDTOX Performed By: #### L 505.5000, L801.1541 #### [facility] [address] [place], [address] CNOVon 12-13-2023 CNOV Office Visit (ORTHWS ) SALMA BROWNING ([id number]) 1975 F T Date Time Provider Department 12/13/23 1:30 PM OKSANA KENNEY During your visit today, we recorded the following information about you: Zeus DianaaPRETTY 12/13/2023 2:39 PM Signed Patient presents with: Left Knee - Follow Up Right Knee - Follow Up 5 1/2 months post visit OA bilateral knees AMB ROOMING INTAKE FLOWSHEET DATA Pain Pain Level: 8 Pain Location: Knee-Right Description: Sharp Duration Amount of Time: 2 Duration Units: Weeks Frequency: Continuous Intervention/Comfort measure: Medication Patient here for right knee pain. States 2 weeks ago she was trimming her mom's bushes and felt a pop in her knee. Seen at [facility] ED. She was given a knee immobilizer and crutches. She was unable to wear the immobilizer. She is having difficulty going up steps. She has to pull herself up the steps. Taking Celebrex for the pain and does not help. Oksana Kenney PA-C 12/13/2023 2:39 PM Signed Oksana Kenney PA-C Department of Orthopaedics Orthopaedics [address] [facility] [address] Dept: [phone] Dept December 13, 2023 CHIEF COMPLAINT: Follow Up of the Left Knee, Follow Up of the Right Knee, and 5 1/2 months post visit OA bilateral knees Ms. Salma Browning is a 48 year old female who presents with increased right knee pain after trimming some hedges at her mother's house 2 weeks ago. The hedges that she was trying right eye level, she denies any squatting, twisting or pivoting. She was standing when she felt a pop in her right knee. She was seen at [facility], placed in a knee immobilizer and provided with crutches which made things worse. Since the incident she has had increased pain mainly along the medial aspect of the knee. Having difficulty doing day-to-day tasks such as getting out of her fever chair at home. She is already taking Celebrex twice a day which she does not find to be effective. In the past she has tried ibuprofen which again was not effective. She tells me that she is hoping to meet with a weight loss surgeon in [facility] to discuss her options. ASSESSMENT: M17.0 Primary osteoarthritis of both knees (primary encounter diagnosis) E66.01 Morbid obesity (HCC) M25.561 Acute pain of right knee PLAN: We discussed trying a corticosteroid injection to see if we can get her knee pain under control. Again we discussed weight loss to slow the progression of her knee arthritis and potentially help her find some relief with her knee pain. Certainly if pain persist or if corticosteroid injection is unaffected we can get some additional imaging of the knee. Patient agrees to plan. Ms. Salma Browning was advised as to contrast therapies and/or to take analgesics/anti-inflammatori es as needed and all contraindications were reviewed. OBJECTIVE: Ms. Salma Browning is a pleasant 48 year old in no apparent distress. Gen:There were no vitals taken for this visit. nl development, obese, no deformities ENT: Normocephalic, normal hearing, moist mucosa CV: Pulses:DP/PT= 2+ and symmetric, capillary refill < 2 secs, no peripheral edema/varicosities Skin: no rash, bruising or lesions. Good turgor. Psych: cooperative and appropriate, alert and oriented x 3, good mood and affect. Musculoskeletal: KNEE EXAM: Right: Alignment: Neutral Range of motion is lacking a few degrees secondary to tight hamstrings degrees in extension and 100 degrees of flexion. Extension La degrees Pain with ROM: Yes Effusion: Slight Tender to the palpation of Medial femoral condyle and Medial joint line Pain with patellar compression: No Stability: Anterior/Posterior stable and Varus/Valgus stable Hip Exam: flexion to 100+ degrees, full extension, internal/external rotation adequate, and no pain with log roll Neurovascular Status: Sensation Intact, Moves foot and ankle up AND down, and 2+ dorsalis pedis In addition to the comprehensive evaluation, assessment and plan outlined above, and as a distinct and separate element to the visit today, separate from weightloss discussion , we have made the determination to proceed with an injection to aid in the management of the patient's condition. We discussed the risks, benefits, alternatives and expected outcomes of this injection in detail, and the patient agreed to proceed. The procedure was performed as detailed below. Large Joint Arthro/Inj: R knee joint Informed Consent Consent Obtained: Verbal Effie Protocol A moment to CARE was completed. SIGN IN Sign in communication not applicable due to emergent procedure. Personnel directly involved with the procedure wore the appropriate PPE. Special Equipment: N/A Patient/Surrogate Stated/Verified: Patient name, Date of , Relevant all (more content not included)... Normal [facility] Large Joint Arthro/Inj: R kn ee jointon 12-13-2023 Oksana Kenney PA -C 12/13/2023 2:39 PM Large Joint Arthro/Inj: R knee joint Informed Consent Consent Obtained: Verbal Effie Protocol A moment to CARE was completed. SIGN IN Sign in communication not applicable due to emergent procedure. Personnel directly involved with the procedure wore the appropriate PPE. Special Equipment: N/A Patient/Surrogate Stated/Verified: Patient name, Date of , Relevant allergies and Intended procedure TIME OUT Intended patient and procedure match the source document(s). Consent documented and matches the intended procedure. Relevant labs, photos, and/or imaging studies have been reviewed. Correct side/site marked and visible. Medications required for procedure verified. No fire risk assessment and interventions applicable. No implant(s) inserted. 12/13/2023 2:37 PM The procedure site was prepped in the usual sterile fashion. Site: R knee joint Medications: 6 mg betamethasone acetate-betamethasone sodium phosphate 6 mg/mL Anesthetics: 5 mL lidocaine (PF) 10 mg/mL (1 %) Outcome: Tolerated well, no immediate complications Post-injection instructions were reviewed with the patient and the patient voiced understanding of these instructions. SIGN OUT No specimen collected. All instruments, equipment, possible retained foreign bodies accounted for. Post-procedure follow-up management communicated and Plan of Care Visit completed when applicable [facility] 12 Lead EKG performed by [facility] on 12-08-2023 12 Lead EKG performed by [place] [address] [place] [address] 12 Lead EKG performed by [facility] 12/08/23 1413 MR#: [id number] Acct: [id number] Name: SALMA BROWNING Rep #: [id number] : 1975 48 From: Jonas Martinez MD Attending Dr: Dr. Jonas Martinez MD Status: DEP David CHANG Ordering Dr: Jonas Martinez MD Date: 12/08/23 [place] [facility] Sex: F C Admitted: BMS/12 Lead EKG performed by [facility] ECG Report Interpretation Si nus Rhythm WITHIN NORMAL LIMITSElectronically signed on 12/12/2023 at 19:29 by Jonas Martinez [employer] Software Version 8610 12/12/231931 Date Jonas Martinez MD CC: Dr. Susan Sevilla MD Date Dictated: 12/08/23 1413 Date Transcribed: 12/08/231412 Power Engineer: [place] Signed Normal [facility] Cardiology Visit Reporton Cardiology Visit Report [facility] [address] [place], [place] [address] OFFICE VISIT Date of Service: 12/08/23 MR#: [id number] Acct: [id number] Name: SALMA BROWNING Rep #: [id number] : 1975 Provider: Dr. Jonas Martinez MD Age/Sex: 48/F [place] [facility] Status: Signed [facility] History of Present Illness Details: 48-year-old lady with a history of hypertension who has been having some dizziness recently on her antihypertensive medication. She had an echocardiogram performed which demonstrated preserved left ventricular systolic function estimated at 57% normal right ventricular size and function and no valvular abnormalities. An event monitor was also performed which demonstrated an average heart rate of 81 bpm with no significant ventricular or atrial ectopic events. His had no rekha syncopal episodes and has not had any palpitations. Physical exam demonstrates clear lung cervantes regular rate and rhythm no pedal edema electrocardiogram demonstrates sinus rhythm with a rate of 85 bpm. Intake Vital Signs 09/09/23 11:07 11/29/23 22:03 12/08/23 14:13 Height 5 ft 4 in 5 ft 4 in 5 ft 4 in Weight: 276 lb BMI 47.3 BP 140/82 H Blood Pressure Location Lt brachial Position Sitting Respiration 16 Pulse 77 Pulse Source NIBP Intake Visit Reasons: Dizziness/ Ventricular Hypertrophy ([place]) Commercial Cleaner Required: No Accompanied by: Self Is patient in pain?: No Allergies bupropion Allergy (Verified 12/08/23 14:16) Itching Medications ???Medication ???Instructions ???Recorded ???Confirmed ???Type Omeprazole [Prilosec] 40 mg PO BID gerd 07/17/16 12/08/23 History rizatriptan 10 mg tablet 1 tab PO PRN PRN Migraine Headache 09/26/21 12/08/23 History celecoxib 200 mg capsule 200 mg PO BID 11/01/23 12/08/23 History cholecalciferol (vitamin D3) 125 125 mcg PO QDAY 11/01/23 12/08/23 History mcg (5,000 unit) capsule hydroxyzine HCl 25 mg tablet 25 mg PO TID PRN 11/01/23 12/08/23 History meclizine 25 mg tablet 25 mg PO BID-QID PRN 11/01/23 12/08/23 History paroxetine HCl 40 mg tablet 60 mg PO QDAY 11/01/23 12/08/23 History tizanidine 4 mg capsule 4 mg PO QHS Muscle Spasm 11/01/23 12/08/23 History lisinopril 10 mg tablet 10 mg PO QDAY 12/08/23 12/08/23 History nifedipine 30 mg tablet,extended 30 mg PO QDAY 12/08/23 12/08/23 History release topiramate 25 mg tablet 25 mg PO BID 12/08/23 12/08/23 History Have you fallen in the past year?: No PFSH Medical History Bradycardia BPPV (benign paroxysmal positional vertigo) Cholelithiasis Diaphragmatic hernia Ventricular hypertrophy Dizziness DDD (degenerative disc disease), lumbar Depression GERD (gastroesophageal reflux disease) HTN (hypertension) Morbid obesity Hypertrophic scar of skin Arthritis Shortness of breath on exertion Vision problems Headache Anxiety Back pain Migraine headache Non-smoker Hx of fracture of ankle History of methicillin resistant staphylococcus aureus (MRSA) Surgical History History of excision of lesion Stomach tumor (benign) History of ankle surgery Hx of nasal septoplasty Hx of hysterectomy Hx laparoscopic cholecystectomy Family History Mother Anxiety Arthritis Depression Diabetes High cholesterol Osteoporosis Hypertension Sister Anxiety Depression Hypertension STD (female) Grandmother Arthritis Depression Hypertension Grandfather Hypertension Arthritis Social History Smoking Status: Never smoker alcohol intake: current details: A Couple Of Drinks Per Month substance use type: does not use what type of physical activity do you participate in: none ROS Const Const: Positive for fatigue (daily), weakness (daily) and headache(s) (daily) ENT ENT: Positive for headache(s) (daily) and dizziness (frequently, more frequent when driving); Negative for Nosebleed/epistaxis or balance problems Cardio Chest Pain: Yes (infrequent, anxiety contributing factor) Palpitations: No Edema: Bilateral Muscle aches with walking: None Resp Respiratory: Positive for SOB with activity and SOB at rest; Negative for SOB orthopnea SOB lying down GI GI: Negative nausea, vomiting or heartburn Musc Musc: Positive for muscle aches/ myalgia (a few times a day; arm muscles reported) and joint pain (knees; bone spurs in both knees); Negative for muscle weakness or balance problems Neuro Neuro: Positive for dizziness (frequently, more frequent when driving), headache(s) (daily) and weakness (daily); Negative for lightheadedness, near syncope or syncope Endo (more content not included)... Normal [facility] 12-03-2023 [facility] Office Visit (FAMPWS ) SALMA BROWNING ([id number]) 1975 F [facility] Date Time Provider Department 12/03/23 1:00 PM MARY MCMILLAN During your visit today, we recorded the following information about you: Pulse Respiration Blood pressure Weight 88/minute 16/minute 142/100 126.8 kg Height 1.626 m Mary Mcmillan APRN.CNP 12/03/2023 2:54 PM Signed This is a 48 year old female who presents today with: Patient presents with: Wellness HISTORY OF PRESENT ILLNESS: Salma Browning is a 48 year old female. Patient presents with: Wellness Diet: Eating a well balanced diet. Refers that she is gaining weight. Exercise: Not as much due to knee pain. Vision: Had exam, wearing glasses. Dental: Had exam. Sleep: 5-6 hours per night, difficulty staying asleep. Mood: Still some on going anxiety. Over thinking and worry. Panic attacks a couple times per week. No SI/HI. See below Weight Gain: Has been trying to watch diet. Watching sugar and carbs in the diet. Drinking good amount of water. Exercise limited due to right knee pain. Labs in the past have been normal. Would like to have a consult for bariatric medicine. Insurance will not cover weight loss medication at this time. Right Knee Pain: Seen in ER, xray WNL. Needs to follow up with Ortho, knee has been swollen, ER gave her a knee brace and crutches. Will have folllow up with Orthopedics. HTN: Taking Nifedipine XL 30 mg daily. Does not monitor blood pressure at home. Denies chest pain, palpitations, or edema. Atenolol was discontinued in the past due to dizziness. Migraine: Using Maxalt 10 mg as needed. Getting 3 migraines per week. Will get photophobia and phonophobia. Medication is helpful. No N/V. Anxiety: Taking Paxil 60 mg daily. Using hydroxyzine as needed. GERD: Taking omeprazole 40 mg daily. Stable. Arthritis: Taking Celebrex 200 mg twice daily. Dizziness: On going dizziness, occurring at least once daily. Has appt with [facility] next for further evaluation. Lasting 30 minutes. No palpitations or chest pain. Still having on going. Up coming stress test as well. Mammogram: Appt next week History of hystrectomy PAST MEDICAL HISTORY: PAST MEDICAL HISTORY No date: Abnormal antibody titer Comment: On type and screen during #2. Repeat nl, no major antibodies, negative repeat antibody screen. ?False positive. 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 ?hiatal hernia. 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, bile ducts, and liver Comment: Dr Rivera 11/17/2014: Pre-eclampsia added to pre-existing hypertension No date: Unspecified hemorrhoids without mention of complication Comment: Hemorrhoids PAST SURGICAL HISTORY No date: CHOLECYSTECTOMY 05/09/2019: COLONOSCOPY FLX DX W/COLLJ SPEC WHEN PFRMD Comment: Colonoscopy 09/22/10: EGD TRANSORAL BIOPSY SINGLE/MULTIPLE 05/09/2019: ESOPHAGOGASTRODUODENOSCOPY TRANSORAL DIAGNOSTIC Comment: EGD 2017: HYSTERECTOMY HX Comment: TLH No date: PAST SURGICAL HISTORY OF Comment: Tumor removed from stomach, benign per pt 03/2009: PAST SURGICAL HISTORY OF Comment: left ankle fracture No date: REM LESIO TRUNK,ARM,LEG 1.1 -2.0CM 12/06/09: REMOVAL DEEP IMPLANT Comment: Performed by KATHI POWELL at [facility] 12/06/09: RPR DISLOC PERONEAL TENDON W/O FIBULAR OSTEOTOMY Comment: Performed by KATHI POWELL at [facility] 06/2004: SIGMOIDOSCOPY FLX DX W/COLLJ SPEC BR/WA IF PFRMD Comment: Sigmoidoscopy, flexible No date: SINUSOTOMY MAXILLARY ANTROTOMY INTRANASAL Comment: Byrd-Elliott sinusotomy No date: TONSILLECTOMY PRIMARY/SECONDARY Comment: Tonsillectomy No date: VAGINOSCOPY ALLERGIES Bupropion MEDICATIONS Current Outpatient Medications Medication Sig tiZANidine (ZANAFLEX) 4 mg tablet Take 1 tablet by mouth once daily. Pseudoephedrine-guaiFENesin (MUCINEX D MAXIMUM STRENGTH) 120-1,200 mg tab ER 12 hr Take 1 tablet by mouth once daily as needed (congestion). PARoxetine (PAXIL) 20 mg tablet Take 1 tablet by mouth once daily. Take with additional 40 mg tablet. benzonatate (TESSALON PERLES) 100 mg capsule Take 1 capsule by mouth three times a day as needed for cough. (Patient not taking: Reported on 10/20/2023) PARoxetine (PAXIL) 40 mg tab (more content not included)... Normal [facility] 12-03-2023 [facility] Telephone (INTMWS) SALMA BROWNING ([id number]) 1975 F [facility] Date Time Provider Department 12/03/23 USSAN SEVILLA INTWS During your visit today, we recorded the following information about you: Jennifer Briseno LPN 12/03/2023 3:24 PM Signed Prior authorization approved Payer: [facility] Note from payer: Your PA request for [id number] was approved for 365 days. The PA# assigned is [id number]. Approval Details Authorization number: [id number] Authorized from December 03, 2023 to December 01, 2024 Electronic appeal: Not supported View History Medication Being Authorized topiramate (TOPAMAX) 25 mg capsule Take 1 capsule by mouth two times a day. Dispense: 60 capsule Refills: 5 Start: 12/03/2023 End: 05/31/2024 Class: Normal Diagnoses: Migraine with aura, not intractable, without status migrainosus This order has been released to its destination. To be filled at: [facility] [address] [place] [id number] [address] [facility] [phone] [facility] Jennifer Briseno LPN 12/03/2023 4:46 PM Signed Pharmacy notified. Allergies As of Date: 12/03/2023 Noted Allergy Reaction BUPROPION 12/30/2007 9 - Itching Date Reviewed: 12/03/2023 Reviewed by: Rozina Santiago LPN - Fully Assessed Reason for Visit: Insurance Authorization [[id number]] Prescriptions as of 12/03/2023 - lisinopril (ZESTRIL) 10 mg tablet Take 1 tablet by mouth once daily. - topiramate (TOPAMAX) 25 mg capsule Take 1 capsule by mouth two times a day. - tiZANidine (ZANAFLEX) 4 mg tablet Take 1 tablet by mouth once daily. - Pseudoephedrine-guaiFENesin (MUCINEX D MAXIMUM STRENGTH) 120-1,200 mg tab ER 12 hr Take 1 tablet by mouth once daily as needed (congestion). - PARoxetine (PAXIL) 20 mg tablet Take 1 tablet by mouth once daily. Take with additional 40 mg tablet. - benzonatate (TESSALON PERLES) 100 mg capsule Take 1 capsule by mouth three times a day as needed for cough. - PARoxetine (PAXIL) 40 mg tablet Take 1 tablet by mouth once daily. - hydrOXYzine HCl (ATARAX) 25 mg tablet Take 1 tablet by mouth three times a day as needed for anxiety. - Cholecalciferol, Vitamin D3, (DIALYVITE VITAMIN D) 125 mcg (5,000 unit) cap Take 1 capsule by mouth once daily. - celecoxib (CELEBREX) 200 mg capsule Take 1 capsule by mouth twice daily - rizatriptan (MAXALT) 10 mg tablet Take 1 tablet (10 mg) by mouth as needed for migraine headache (see administration instructions). - omeprazole (PRILOSEC) 40 mg capsule Take 1 capsule by mouth two times a day. - NIFEdipine XL (ADALAT CC) 30 mg 24 hr tablet Take 1 tablet by mouth once daily. Problem List As Of Date 12/03/2023 Noted Resolved CHOLELITHIASIS See also GALLBLADDER [C22.8] 08/26/2005 02/08/2013 CHOLEDOCHAL CYST, CONGENITAL [Q44.1, Q44.5, Q44*09/02/2005 10/12/2014 HEMORRHOIDS NOS [K64.9] 04/25/2008 Restless legs syndrome (RLS) [G25.81] 06/29/2006 02/08/2013 COUGH [R05.9] 02/01/2007 04/25/2008 DEPRESSIVE DISORDER NEC [F32.89] 02/02/2007 10/12/2014 Closed fracture of lateral malleolus [S82.63XA] 09/03/2008 02/08/2013 Nonunion of fracture [DCB5773] 02/11/2009 02/08/2013 Urticaria [L50.9] 05/10/2009 02/08/2013 Anxiety associated with depression [F41.8] 06/30/2010 Sprain of neck [S13.9XXA] 08/20/2010 01/26/2013 Atrophic gastritis without mention of hemorrhag*09/22/2010 10/12/2014 Diaphragmatic hernia without mention of obstruc*09/22/2010 10/12/2014 Esophagitis, unspecified [K20.90] 09/22/2010 10/12/2014 Panic attack [F41.0] 11/13/2010 02/08/2013 Lumbar disc displacement without myelopathy [M5*12/25/2011 10/12/2014 DDD (degenerative disc disease), lumbar [M51.36]12/25/2011 10/12/2014 Cervical strain [S16.1XXA] 12/25/2011 01/26/2013 Cervicalgia [M54.2] 12/25/2011 01/26/2013 GERD (gastroesophageal reflux disease) [K21.9] 03/15/2012 Esophageal spasm [K22.4] 03/15/2012 10/12/2014 DDD (degenerative disc disease), cervical [M50.*06/16/2012 10/12/2014 Paresthesia of bilateral legs [R20.2] 06/16/2012 10/12/2014 Controlled substance agreement signed [Z79.899] 02/08/2013 10/12/2014 Gonorrhea [A54.9] 08/24/2013 10/12/2014 Cervical high risk human papillomavirus (HPV) D*10/27/2013 10/12/2014 ASCUS favor benign, HPV+, acute inflammation on*10/27/2013 Abnormal antibody titer [R76.0] 03/05/2014 10/12/2014 Advanced maternal age (AMA), 40 years or greate*07/10/2014 10/12/2014 Abnormal O'Howe glucose challenge test, ant*08/23/2014 02/19/2016 [Z34.90] 10/10/2014 10/12/2014 Chronic hypertension; recently dx with superimp*10/10/2014 Volume overload [E87.70] 10/10/2014 10/12/2014 SUMMARY [V999.95] 10/10/2014 10/12/2014 Chronic neck and back pain - known cervical and*10/12/2014 Pre-eclampsia added to pre-existing hypertensio*11/17/2014 02/19/2016 Chronic pain of left knee [M25.562, G89.29] 07/03/2015 02/19/2016 Primary osteoarthritis of both knees [M1 (more content not included)... Normal [facility] CNPN Telephone (PSCSTR) SALMA BROWNING ([id number]) 1975 F T Date Time Provider Department 12/03/23 [facility] During your visit today, we recorded the following information about you: Alvin Mcintosh LISW 12/03/2023 2:28 PM Signed Behavioral Health Social Work Progress Note Patient identified for [facility] from: PCP Reason for referral: [facility] Assessment [facility] encounter type: Telephone Encounter Attempts to Outreach: 1 attempt Referral made: Psychiatry - Internal Psychiatry-Internal referral type: Medication Management Final Disposition: Unable to reach Patient Discharged?: No Patient reported that caregiver was able to meet their needs today?: N/A [facility] consult received for anxiety. Would like to see Osiris Sanchez APRN.CNP for medication management. Phone call placed today that went to [employer]. Left my contact information and brief nature of call. Initial outreach also completed via [employer] sending list times/dates available to complete an assessment. CLIFFORD Evans, [facility] December 03, 2023 Allergies As of Date: 12/03/2023 Noted Allergy Reaction BUPROPION 12/30/2007 9 - Itching Date Reviewed: 12/03/2023 Reviewed by: Rozina Santiago LPN - Fully Assessed Reason for Visit: Behavioral Health/Social Work [4126] Prescriptions as of 12/03/2023 - lisinopril (ZESTRIL) 10 mg tablet Take 1 tablet by mouth once daily. - topiramate (TOPAMAX) 25 mg capsule Take 1 capsule by mouth two times a day. - tiZANidine (ZANAFLEX) 4 mg tablet Take 1 tablet by mouth once daily. - Pseudoephedrine-guaiFENesin (MUCINEX D MAXIMUM STRENGTH) 120-1,200 mg tab ER 12 hr Take 1 tablet by mouth once daily as needed (congestion). - PARoxetine (PAXIL) 20 mg tablet Take 1 tablet by mouth once daily. Take with additional 40 mg tablet. - benzonatate (TESSALON PERLES) 100 mg capsule Take 1 capsule by mouth three times a day as needed for cough. - PARoxetine (PAXIL) 40 mg tablet Take 1 tablet by mouth once daily. - hydrOXYzine HCl (ATARAX) 25 mg tablet Take 1 tablet by mouth three times a day as needed for anxiety. - Cholecalciferol, Vitamin D3, (DIALYVITE VITAMIN D) 125 mcg (5,000 unit) cap Take 1 capsule by mouth once daily. - celecoxib (CELEBREX) 200 mg capsule Take 1 capsule by mouth twice daily - rizatriptan (MAXALT) 10 mg tablet Take 1 tablet (10 mg) by mouth as needed for migraine headache (see administration instructions). - omeprazole (PRILOSEC) 40 mg capsule Take 1 capsule by mouth two times a day. - NIFEdipine XL (ADALAT CC) 30 mg 24 hr tablet Take 1 tablet by mouth once daily. 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] 02/11/2009 02/08/2013 Urticaria [L50.9] 05/10/2009 02/08/2013 Anxiety associated with depression [F41.8] 06/30/2010 Sprain of neck [S13.9XXA] 08/20/2010 01/26/2013 Atrophic gastritis without mention of hemorrhag*09/22/2010 10/12/2014 Diaphragmatic hernia without mention of obstruc*09/22/2010 10/12/2014 Esophagitis, unspecified [K20.90] 09/22/2010 10/12/2014 Panic attack [F41.0] 11/13/2010 02/08/2013 Lumbar disc displacement without myelopathy [M5*12/25/2011 10/12/2014 DDD (degenerative disc disease), lumbar [M51.36]12/25/2011 10/12/2014 Cervical strain [S16.1XXA] 12/25/2011 01/26/2013 Cervicalgia [M54.2] 12/25/2011 01/26/2013 GERD (gastroesophageal reflux disease) [K21.9] 03/15/2012 Esophageal spasm [K22.4] 03/15/2012 10/12/2014 DDD (degenerative disc disease), cervical [M50.*06/16/2012 10/12/2014 Paresthesia of bilateral legs [R20.2] 06/16/2012 10/12/2014 Controlled substance agreement signed [Z79.899] 02/08/2013 10/12/2014 Gonorrhea [A54.9] 08/24/2013 10/12/2014 Cervical high risk human papillomavirus (HPV) D*10/27/2013 10/12/2014 ASCUS favor benign, HPV+, acute inflammation on*10/27/2013 Abnormal antibody titer [R76.0] 03/05/2014 10/12/2014 Advanced maternal age (AMA), 40 years or greate*07/10/2014 10/12/2014 Abnormal O'Howe glucose challenge test, ant*08/23/2014 02/19/2016 [Z34.90] 10/10/2014 10/12/2014 Chronic hypertension; recently dx with superimp*10/10/2014 Volume overload [E87.70] 10/10/2014 10/12/2014 SUMMARY [V999.95] 10/10/2014 10/12/2014 Chronic neck and back pain - known cervical and*10/12/2014 Pre-eclampsia added to pre-existing hypertensio*11/17/2014 02/19/2016 Chronic pain of left knee [M25.562, G89.29] 07/03/2015 02/19/2016 Primary osteoarthritis of both knees [ (more content not included)... Normal [facility] Emergency Department Summary on 11-29-2023 Emergency Department Summary [facility] Medical Records Department [address] [place] [address] Emergency Department Summary 11/29/23 MR#: [id number] Acct: [id number] Name: SALMA BROWNING Rep #: [id number] : 1975 48 From: Leoncio Phelps DO PCP: Dr. Susan Sevilla MD Status:REG ER Location: ED HPI History of Present Illness HPI Narrative: Patient presents with right knee pain that began yesterday. Patient states she was trimming hedges when she felt pain in her right knee. Patient states she heard a pop in her knee. Patient states her pain has been constant since yesterday. Patient states her pain is worse with complete extension and complete flexion. Patient states it does get better with rest. Patient denies any paresthesias or weakness. Patient denies any other injuries. Chief Complaint: Lower Extremity Injury Informant: patient Onset/Context/Timing Onset: Yesterday Context: Sudden Onset Timing: Continuous Location: Medial aspect of the right knee Worsened by: Complete flexion and complete extension Relieved by: Rest Associated Symptoms Associated Symptoms: Negative for Parasthesia, Weakness or Loss of Funtion PFSH PFSH Medical History Bradycardia BPPV (benign paroxysmal positional vertigo) Cholelithiasis Diaphragmatic hernia Ventricular hypertrophy Dizziness DDD (degenerative disc disease), lumbar Depression GERD (gastroesophageal reflux disease) HTN (hypertension) Morbid obesity Hypertrophic scar of skin Arthritis Shortness of breath on exertion Vision problems Headache Anxiety Back pain Migraine headache Non-smoker Hx of fracture of ankle History of methicillin resistant staphylococcus aureus (MRSA) Home Medications ???Medication ???Instructions ???Recorded ???Last Taken ???Type Omeprazole [Prilosec] 40 mg PO BID gerd 07/17/16 06/09/22 04:00 History atenolol 50 mg tablet 50 mg PO 1200 blood pressure 01/30/21 06/09/22 04:00 History buspirone 5 mg tablet 5 tab PO DAILY 09/26/21 06/09/22 04:00 History rizatriptan 10 mg tablet 1 tab PO PRN PRN Migraine Headache 09/26/21 Unknown History gabapentin 300 mg capsule 300 mg PO BID 30 days #60 caps 12/01/22 Unknown Rx celecoxib 200 mg capsule 200 mg PO BID 11/01/23 Unknown History cholecalciferol (vitamin D3) 125 125 mcg PO QDAY 11/01/23 Unknown History mcg (5,000 unit) capsule hydroxyzine HCl 25 mg tablet 25 mg PO TID PRN 11/01/23 Unknown History meclizine 25 mg tablet 25 mg PO BID-QID PRN 11/01/23 Unknown History paroxetine HCl 40 mg tablet 60 mg PO QDAY 11/01/23 Unknown History tirzepatide (weight loss) 2.5 2.5 mg subcut QWEEK 11/01/23 Unknown History mg/0.5 mL subcutaneous pen injector (Zepbound) tizanidine 4 mg capsule 4 mg PO QHS Muscle Spasm 11/01/23 Unknown History hydrocodone-acetaminophen 5-325mg 1 tab PO Q6H PRN PRN Pain 3 days 11/29/23 Unknown Rx 5mg-325mg #10 TABLETS Allergy/AdvReac Type Severity Reaction Status Date / Time bupropion Allergy Itching Verified 11/29/23 22:05 Family History Mother Anxiety Arthritis Depression Diabetes High cholesterol Osteoporosis Hypertension Sister Anxiety Depression Hypertension STD (female) Grandmother Arthritis Depression Hypertension Grandfather Hypertension Arthritis Surgical History History of excision of lesion Stomach tumor (benign) History of ankle surgery Hx of nasal septoplasty Hx of hysterectomy Hx laparoscopic cholecystectomy Social History Smoking Status: Never smoker alcohol intake: current details: A Couple Of Drinks Per Month substance use type: does not use what type of physical activity do you participate in: none ROS ROS ED Constitutional Constitutional ED: Denies chills or fever(s) Eyes Eyes: Denies blurry vision or change in vision ENT ENT ED: Denies rhinorrhea or sore throat Cardiovascular Cardiovascular: Denies chest pain or palpitations Respiratory/Chest Respiratory/Chest: Denies cough or dyspnea Gastrointestinal Gastrointestinal: Denies nausea or vomiting Genitourinary Genitourinary ED: Denies dysuria or hematuria Musculoskeletal Musculoskeletal: Reports back pain and neck pain Integumentary Denies abscess or rash Neurologic Neurologic: Denies headache(s) or weakness Allergic/Immunologic Allergic/Immunologic ED: Denies mouth swelling or urticaria EXAM Physical Exam Const Vital Signs: 11/29/23 22:03 Temperature 98.2 F Temperature Source Oral Pulse Rate 75 Respiratory Rate 18 Blood Pressure 151/102 H Blood Pressure Mean 118 Pulse Ox 98 Oxygen Delivery Method Isabel (more content not included)... Normal [facility] Knee 4 or More Viewson 11-28 Knee 4 or More Views [facility] Imaging Services [address] [place] [id number] Knee 4 or More Views MR#: [id number] Acct: [id number] Name: SALMA BROWNING Rep #: [id number] : 1975 F 48 From: Davi casas MD PCP: Dr. Susan Sevilla MD Status: REG ER Study: Knee 4 or More Views Date of Exam: 11/29/23 Exam# [id number] Ordering Dr: Leoncio Phelps DO :[id number] EXAM: XR RIGHT KNEE COMPLETE, 4 OR MORE VIEWS CLINICAL INDICATION: fall TECHNIQUE: Four or more views of the right knee. COMPARISON: Previous right knee radiographs of 11/10/2019. FINDINGS: BONES/JOINTS: Minimal degenerative spurring is developed about the medial and lateral compartments of the knee. Joint spaces are preserved. A small-moderate suprapatellar knee effusion has developed. No acute fracture. No subluxation. Normal alignment. No sclerotic or destructive changes observed. SOFT TISSUES: No soft tissue swelling or gas. No radiopaque foreign body. RAD/Knee 4 or More Views IMPRESSION: Interval development of minimal degenerative spurring about the medial and lateral compartments. Knee effusion. No acute fracture or dislocation identified. Electronically Signed: Davi Perry MD at 23:25 EDT , CC: Dr. Leoncio Phelps DO; Dr. Susan Sevilla MD Power Engineer: Signed Normal [facility] CT Chest W contrast Roseanna IMPRESSION: No CT evidence of acute abnormality. Mild atelectasis/scarring in the right middle lobe and lingula. Abdominal findings as described above. Power Engineer: SANDHYA Transcribe Date/Time: Oct 25 2023 2:35P Dictated by : TAWANA ARZOLA MD This examination was interpreted and the report reviewed and electronically signed by: TAWANA ARZOLA MD on Oct 25 2023 2:44PM [facility] DIVISION OF RADIOLOGY * * *Final Report* * * DATE OF EXAM: Oct 25 2023 2:33PM [facility] 0539 - CT CHEST W IVCON / PROCEDURE REASON: multiple diagnoses * * * * Physician Interpretation * * * * EXAMINATION: CHEST CT WITH CONTRAST CLINICAL HISTORY: Chronic cough. Technique: Spiral CT acquisition of the chest from the thoracic inlet to the upper abdomen following IV contrast. MQ: CTCW_6 Contrast: 50 mL Omnipaque [address] Radiation dose: Integrated Dose-length product (DLP) for this visit = 458 mGy*cm CT Dose Reduction Employed: Automated exposure control(AEC) and iterative recon Comparison: CT chest on 10/10/2014 RESULT: Limitations: None. Lines, tubes, and devices: None. Lung parenchyma and airways: The central airways are patent. Mild atelectasis/scarring demonstrated in the right middle lobe and lingula. The lungs are otherwise clear of consolidations. No suspicious lung nodules. No masses. Pleural space: No pleural effusion. No pleural thickening. Lower neck, lymph nodes, and mediastinum: The imaged thyroid gland is normal. No lymphadenopathy in the supraclavicular, axillary, mediastinal, or hilar regions. There is a small hiatal hernia. Heart, pericardium, and thoracic vessels: The thoracic aorta and main pulmonary artery are normal in caliber. The cardiac chambers are normal in size. No coronary artery atherosclerotic calcifications are noted, although the study is not optimized for coronary assessment. No pericardial effusion or thickening. Bones and soft tissues: There are mild degenerative changes in the spine. No destructive bone lesion. Chest wall is unremarkable. Upper abdomen: Status post cholecystectomy, with dilated common bile duct. Localizer images: No additional findings. DIVISION OF RADIOLOGY Provider, [facility] - 10/25/2023 * * *Final Report* * * DATE OF EXAM: Oct 25 2023 2:33PM [facility] 0539 - CT CHEST W IVCON / PROCEDURE REASON: multiple diagnoses * * * * Physician Interpretation * * * * EXAMINATION: CHEST CT WITH CONTRAST CLINICAL HISTORY: Chronic cough. Technique: Spiral CT acquisition of the chest from the thoracic inlet to the upper abdomen following IV contrast. MQ: CTCW_6 Contrast: 50 mL Omnipaque [address] Radiation dose: Integrated Dose-length product (DLP) for this visit = 458 mGy*cm CT Dose Reduction Employed: Automated exposure control(AEC) and iterative recon Comparison: CT chest on 10/10/2014 RESULT: Limitations: None. Lines, tubes, and devices: None. Lung parenchyma and airways: The central airways are patent. Mild atelectasis/scarring demonstrated in the right middle lobe and lingula. The lungs are otherwise clear of consolidations. No suspicious lung nodules. No masses. Pleural space: No pleural effusion. No pleural thickening. Lower neck, lymph nodes, and mediastinum: The imaged thyroid gland is normal. No lymphadenopathy in the supraclavicular, axillary, mediastinal, or hilar regions. There is a small hiatal hernia. Heart, pericardium, and thoracic vessels: The thoracic aorta and main pulmonary artery are normal in caliber. The cardiac chambers are normal in size. No coronary artery atherosclerotic calcifications are noted, although the study is not optimized for coronary assessment. No pericardial effusion or thickening. Bones and soft tissues: There are mild degenerative changes in the spine. No destructive bone lesion. Chest wall is unremarkable. Upper abdomen: Status post cholecystectomy, with dilated common bile duct. Localizer images: No additional findings. IMPRESSION IMPRESSION: No CT evidence of acute abnormality. Mild atelectasis/scarring in the right middle lobe and lingula. Abdominal findings as described above. Power Engineer: SANDHYA Transcribe Date/Time: Oct 25 2023 2:35P Dictated by : TAWANA ARZOLA MD This examination was interpreted and the report reviewed and electronically signed by: TAWANA ARZOLA MD on Oct 25 2023 2:44PM EST [facility] Radiology Study observation (narrative) [facility] CT Chest W contrast IVOrdere d By: [facility] Provider on 10-25-2023 [facility] XR Chest PA and Lateralon IMPRESSION: Overall findings unchanged. Power Engineer: [facility] Transcribe Date/Time: Oct 20 2023 1:39P Dictated by : TAWANA ARZOLA MD This examination was interpreted and the report reviewed and electronically signed by: TAWANA ARZOLA MD on Oct 20 2023 1:40PM [facility] DIVISION OF RADIOLOGY * * *Final Report* * * DATE OF EXAM: Oct 20 2023 1:36PM [facility]OX [id number] - XR CHEST 2V FRONTAL/LAT / PROCEDURE REASON: Acute cough * * * * Physician Interpretation * * * * EXAMINATION: CHEST RADIOGRAPH (2 VIEW FRONTAL & LATERAL) CLINICAL HISTORY: Acute cough MQ: XC2_6 EXAM DATE/TIME: 10/20/2023 1:36 PM COMPARISON: Chest x-ray on 07/23/2023 RESULT: Lines, tubes, and devices: None. Lungs and pleura: Small linear opacities overlying the left midlung (likely in the lingula) appear unchanged. No consolidation. No lung mass. No pleural effusion. No pneumothorax. Cardiomediastinal silhouette: Normal cardiomediastinal silhouette. Bones and soft tissues: Unremarkable. DIVISION OF RADIOLOGY Provider, Dirk Roland - 10/20/2023 * * *Final Report* * * DATE OF EXAM: Oct 20 2023 1:36PM WOX 5291 - XR CHEST 2V FRONTAL/LAT / PROCEDURE REASON: Acute cough * * * * Physician Interpretation * * * * EXAMINATION: CHEST RADIOGRAPH (2 VIEW FRONTAL & LATERAL) CLINICAL HISTORY: Acute cough MQ: XC2_6 EXAM DATE/TIME: 10/20/2023 1:36 PM COMPARISON: Chest x-ray on 07/23/2023 RESULT: Lines, tubes, and devices: None. Lungs and pleura: Small linear opacities overlying the left midlung (likely in the lingula) appear unchanged. No consolidation. No lung mass. No pleural effusion. No pneumothorax. Cardiomediastinal silhouette: Normal cardiomediastinal silhouette. Bones and soft tissues: Unremarkable. IMPRESSION IMPRESSION: Overall findings unchanged. Power Engineer: PSCB Transcribe Date/Time: Oct 20 2023 1:39P Dictated by : TAWANA ARZOLA MD This examination was interpreted and the report reviewed and electronically signed by: TAWANA ARZOLA MD on Oct 20 2023 1:40PM EST [facility] Radiology Study observation (narrative) [facility] XR Chest PA and LateralOrder ed By: Ccf Provider on 10-20-2023 [facility] STREP A MOLECULAR (POC)on Procedural Control Valid [facility] Strep A (POCT) Negative Negative [facility] STREP A MOLECULAR (POC)on Procedural Control Valid [facility] Strep A (POCT) Negative Negative [facility] Plastic Surgery Visit Report on 09-09-2023 Plastic Surgery Visit Report [facility] Plastic Reconstructive Surgery [address], [address] [place] [address] OFFICE VISIT Date of Service: 09/09/23 MR#: [id number] Acct: [id number] Name: NAMSALMA Rep #: [id number] : 1975 Provider: Dr. Nani casas MD Age/Sex: 48/F [place] [facility] Status: Signed Intake Vital Signs 08/19/23 09:59 09/09/23 11:07 Height 5 ft 4 in 5 ft 4 in Respiration 16 Pulse 71 Pulse Source Monitor Temp 97.6 F L Temp Source Temporal Pulse Oximetry (%) 98 Oxygen Delivery Method room air Intake Visit Reasons: Office procedure - ResurFX #3 Chief Complaint: eval painful cutaneous vascular hypertrophic scars chin and upper neck Commercial Cleaner Required: No Accompanied by: None Allergies bupropion Allergy (Verified 09/09/23 11:07) Itching Medications ???Medication ???Instructions ???Recorded ???Confirmed ???Type Omeprazole [Prilosec] 40 mg PO BID gerd 07/17/16 09/09/23 History tizanidine 4 mg capsule 4 mg PO TID PRN Muscle Spasm 04/29/20 09/09/23 History atenolol 50 mg tablet 50 mg PO 1200 blood pressure 01/30/21 09/09/23 History buspirone 5 mg tablet 5 tab PO DAILY 09/26/21 09/09/23 History rizatriptan 10 mg tablet 1 tab PO PRN PRN Migraine Headache 09/26/21 09/09/23 History sertraline 100 mg tablet 200 mg PO BID mental health 05/12/22 09/09/23 History gabapentin 300 mg capsule 300 mg PO BID 30 days #60 caps 12/01/22 09/09/23 Rx Patient : No PFSH Medical History Painful scar Hypertrophic scar of skin Arthritis Shortness of breath on exertion Scar adherent Unspecified open wound of unspecified part of neck, sequela Late effect of facial wound Vision problems Tumors Headache Wears dentures Depression Anxiety Easy bruising Excessive bleeding Back pain Migraine headache Gastric reflux Non-smoker Cardiology follow-up encounter Hypertension Hx of fracture of ankle Pain Encounter for incision and drainage procedure Open wound of neck with complication Open wound of chin History of methicillin resistant staphylococcus aureus (MRSA) Surgical History History of excision of lesion History of incision and drainage Stomach tumor (benign) History of ankle surgery Hx of nasal septoplasty Hx of hysterectomy Hx laparoscopic cholecystectomy Family History Mother Anxiety Arthritis Depression Diabetes High cholesterol Osteoporosis Hypertension Sister Anxiety Depression Hypertension STD (female) Grandmother Arthritis Depression Hypertension Grandfather Hypertension Arthritis Social History Smoking Status: Never smoker alcohol intake: current details: A Couple Of Drinks Per Month substance use type: does not use what type of physical activity do you participate in: none HPI Office procedure - ResurFX #3 Details: 48 year old woman presents for destruction of painful thickened erythematous scar lesions located on her chin and upper anterior neck after excision of MRSA scar contour deformity with flap reconstruction on her chin and upper anterior neck in June,. We are planning on using IPL device and ResurFX laser alternating every 3 weeks. She had her third IPL treatment on 08/19/23. Today will be the third ResurFx laser (1565 nm) treatment. She has been tolerating the previous laser procedures well. There is an improvement in the coloring and the texture of the scarring. The following conditions are applicable to the areas being treated.??? Patient denies active infection in the areas to be treated.??? There are no dysplastic nevi. ??? There are no tattoos.??? There are not any significant concurrent skin conditions or any inflammatory skin conditions.??? There are no active cold sores, open lacerations, or abrasions.??? There are no chronic or cutaneous viral, fungal, or bacterial diseases.??? Patient states she has refrained from sun exposure and tanning for the past 4 weeks.??? There is no history or concurrent condition of skin cancer or pre-cancerous lesions at the treatment areas.??? There are no permanent dermal implants. Patient denies bleeding coagulopathies.??? She denies keloid scarring.??? She denies herpes simplex.??? She denies lupus or porphyria.??? She denies immunosuppressive diseases such as AIDS and HIV.??? She denies uncontrolled systemic diseases such as diabetes mellitus, epilepsy, or congestive heart disease.??? She denies photosensitivity which can lead to a rash or allergic reaction.??? She denies hormonal disorders such as polycystic ovary syndrome.??? She denies gold therapy.?? (more content not included)... Normal [facility] Plastic Surgery Visit Report on 08-19-2023 Plastic Surgery Visit Report [facility] Plastic Reconstructive Surgery [address], [address] [place] [address] OFFICE VISIT Date of Service: 08/19/23 MR#: [id number] Acct: [id number] Name: SALMA BROWNING Rep #: [id number] : 1975 Provider: Dr. Nani casas MD Age/Sex: 48/F Location[place] [facility] Status: Signed Intake Vital Signs 07/29/23 09:57 08/19/23 09:59 Height 5 ft 4 in 5 ft 4 in Respiration 16 Pulse 76 Pulse Source Monitor Temp 97.3 F L Temp Source Temporal Pulse Oximetry (%) 99 Oxygen Delivery Method room air Intake Visit Reasons: laser office procedure - IPL #3 Chief Complaint: eval painful cutaneous vascular hypertrophic scars chin and upper neck Commercial Cleaner Required: No Accompanied by: None Allergies bupropion Allergy (Verified 08/19/23 09:59) Itching Medications ???Medication ???Instructions ???Recorded ???Confirmed ???Type Omeprazole [Prilosec] 40 mg PO BID gerd 07/17/16 08/19/23 History tizanidine 4 mg capsule 4 mg PO TID PRN Muscle Spasm 04/29/20 08/19/23 History atenolol 50 mg tablet 50 mg PO 1200 blood pressure 01/30/21 08/19/23 History buspirone 5 mg tablet 5 tab PO DAILY 09/26/21 08/19/23 History rizatriptan 10 mg tablet 1 tab PO PRN PRN Migraine Headache 09/26/21 08/19/23 History sertraline 100 mg tablet 200 mg PO BID mental health 05/12/22 08/19/23 History gabapentin 300 mg capsule 300 mg PO BID 30 days #60 caps 12/01/22 08/19/23 Rx oxycodone-acetaminophen 5 mg-325 1 tab PO Q6H PRN pain (scale score 08/19/23 08/19/23 Rx mg tablet (Percocet) 7-10) 5 days #20 tabs Patient : No PFSH Medical History Painful scar Hypertrophic scar of skin Arthritis Shortness of breath on exertion Scar adherent Unspecified open wound of unspecified part of neck, sequela Late effect of facial wound Vision problems Tumors Headache Wears dentures Depression Anxiety Easy bruising Excessive bleeding Back pain Migraine headache Gastric reflux Non-smoker Cardiology follow-up encounter Hypertension Hx of fracture of ankle Pain Encounter for incision and drainage procedure Open wound of neck with complication Open wound of chin History of methicillin resistant staphylococcus aureus (MRSA) Surgical History History of excision of lesion History of incision and drainage Stomach tumor (benign) History of ankle surgery Hx of nasal septoplasty Hx of hysterectomy Hx laparoscopic cholecystectomy Family History Mother Anxiety Arthritis Depression Diabetes High cholesterol Osteoporosis Hypertension Sister Anxiety Depression Hypertension STD (female) Grandmother Arthritis Depression Hypertension Grandfather Hypertension Arthritis Social History Smoking Status: Never smoker alcohol intake: current details: A Couple Of Drinks Per Month substance use type: does not use what type of physical activity do you participate in: none HPI laser office procedure - IPL #3 Details: 48 year old woman presents for destruction of painful thickened erythematous scar lesions located on her chin and upper anterior neck after excision of MRSA scar contour deformity with flap reconstruction on her chin and upper anterior neck in June, using IPL device and ResurFX laser alternating every 3 weeks. She has had 2 treatments using the IPL device on 05/27/23 and 07/08/23 and 2 treatments using ResurFX laser (1565 nm) on 06/17/23 and 07/29/23. The following conditions are applicable to the areas being treated.??? Patient denies active infection in the areas to be treated.??? There are no dysplastic nevi. ??? There are no tattoos.??? There are not any significant concurrent skin conditions or any inflammatory skin conditions.??? There are no active cold sores, open lacerations, or abrasions.??? There are no chronic or cutaneous viral, fungal, or bacterial diseases.??? Patient states she has refrained from sun exposure and tanning for the past 4 weeks.??? There is no history or concurrent condition of skin cancer or pre-cancerous lesions at the treatment areas.??? There are no permanent dermal implants. Patient denies bleeding coagulopathies.??? She denies keloid scarring.??? She denies herpes simplex.??? She denies lupus or porphyria.??? She denies immunosuppressive diseases such as AIDS and HIV.??? She denies uncontrolled systemic diseases such as diabetes mellitus, epilepsy, or congestive heart disease.??? She denies photosensitivity which can lead to a rash or allergic reaction.??? She denies hormonal disorders such as polycystic ovary syndrome.??? S (more content not included)... Normal [facility] Plastic Surgery Visit Report on 07-29-2023 Plastic Surgery Visit Report [facility] Plastic Reconstructive Surgery [address], [address] [place] [address] OFFICE VISIT Date of Service: 07/29/23 MR#: [id number] Acct: [id number] Name: SALMA BROWNING Rep #: [id number] : 1975 Provider: Dr. Nani casas MD Age/Sex: 48/F Location: [facility] Status: Signed Intake Vital Signs 07/08/23 10:05 07/29/23 09:57 Height 5 ft 4 in 5 ft 4 in Respiration 16 16 Pulse 62 63 Pulse Source Monitor Monitor Temp 97.5 F L 97.1 F L Temp Source Temporal Temporal Pulse Oximetry (%) 97 99 Oxygen Delivery Method room air room air Intake Visit Reasons: Office procedure - ResurFX #2 Chief Complaint: eval painful cutaneous vascular hypertrophic scars chin and upper neck Commercial Cleaner Required: No Accompanied by: None Allergies bupropion Allergy (Verified 07/29/23 09:57) Itching Medications Omeprazole [Prilosec] 40 mg PO BID gerd 07/17/16 [History Confirmed 07/29/23] tizanidine 4 mg capsule 4 mg PO TID PRN Muscle Spasm 04/29/20 [History Confirmed 07/29/23] atenolol 50 mg tablet 50 mg PO 1200 blood pressure 01/30/21 [History Confirmed 07/29/23] buspirone 5 mg tablet 5 tab PO DAILY 09/26/21 [History Confirmed 07/29/23] rizatriptan 10 mg tablet 1 tab PO PRN PRN Migraine Headache 09/26/21 [History Confirmed 07/29/23] sertraline 100 mg tablet 200 mg PO BID mental health 05/12/22 [History Confirmed 07/29/23] gabapentin 300 mg capsule 300 mg PO BID 30 days #60 caps 12/01/22 [Rx Confirmed 07/29/23] Patient : No PFSH Medical History Anxiety Arthritis Back pain Cardiology follow-up encounter Depression Easy bruising Encounter for incision and drainage procedure Excessive bleeding Gastric reflux Headache History of methicillin resistant staphylococcus aureus (MRSA) Hx of fracture of ankle Hypertension Hypertrophic scar of skin Late effect of facial wound Migraine headache Non-smoker Open wound of chin Open wound of neck with complication Pain Painful scar Scar adherent Shortness of breath on exertion Tumors Unspecified open wound of unspecified part of neck, sequela Vision problems Wears dentures Surgical History History of ankle surgery History of excision of lesion History of incision and drainage Hx laparoscopic cholecystectomy Hx of hysterectomy Hx of nasal septoplasty Stomach tumor (benign) Family History Mother Anxiety Arthritis Depression Diabetes High cholesterol Osteoporosis Hypertension Sister Anxiety Depression Hypertension STD (female) Grandmother Arthritis Depression Hypertension Grandfather Hypertension Arthritis Social History Smoking Status: Never smoker alcohol intake: current details: A Couple Of Drinks Per Month substance use type: does not use what type of physical activity do you participate in: none HPI Office procedure - ResurFX #2 Details: 48 year old woman presents for destruction of painful thickened erythematous scar lesions located on her chin and upper anterior neck after excision of MRSA scar contour deformity with flap reconstruction on her chin and upper anterior neck in June,. We are planning on using IPL device and ResurFX laser alternating every 3 weeks. She had her second IPL treatment on 06/17/23. Today will be the second ResurFx laser (1565 nm) treatment. She has been tolerating the previous laser procedures well. There is an improvement in the coloring and the texture of the scarring. The following conditions are applicable to the areas being treated.??? Patient denies active infection in the areas to be treated.??? There are no dysplastic nevi. ??? There are no tattoos.??? There are not any significant concurrent skin conditions or any inflammatory skin conditions.??? There are no active cold sores, open lacerations, or abrasions.??? There are no chronic or cutaneous viral, fungal, or bacterial diseases.??? Patient states she has refrained from sun exposure and tanning for the past 4 weeks.??? There is no history or concurrent condition of skin cancer or pre-cancerous lesions at the treatment areas.??? There are no permanent dermal implants. Patient denies bleeding coagulopathies.??? She denies keloid scarring.??? She denies herpes simplex.??? She denies lupus or porphyria.??? She denies immunosuppressive diseases such as AIDS and HIV.??? She denies uncontrolled systemic diseases such as diabetes mellitus, epilepsy, or congestive heart disease.??? She denies photosensitivity which can lead to a rash or allergic reaction.??? She denies hormonal disorders such as polycystic ovary syndrome.??? She denies gold t (more content not included)... Normal [facility] XR Chest PA and Lateralon IMPRESSION: Scarring or atelectasis as described above. Power Engineer: SANDHYA Transcribe Date/Time: Jul 24 2023 9:37A Dictated by : TAWANA ARZOLA MD This examination was interpreted and the report reviewed and electronically signed by: TAWANA ARZOLA MD on Jul 24 2023 9:41AM [facility] DIVISION OF RADIOLOGY * * *Final Report* * * DATE OF EXAM: Jul 23 2023 2:39PM WOX 5291 - XR CHEST 2V FRONTAL/LAT / PROCEDURE REASON: SOB (shortness of breath) * * * * Physician Interpretation * * * * EXAMINATION: CHEST RADIOGRAPH (2 VIEW FRONTAL & LATERAL) CLINICAL HISTORY: SOB (shortness of breath) MQ: XC2_6 EXAM DATE/TIME: 07/23/2023 2:39 PM COMPARISON: Chest x-ray on 12/25/2022 RESULT: Lines, tubes, and devices: None. Lungs and pleura: Scarring or atelectasis seen in the lingula versus right middle lobe. No consolidation. No lung mass. No pleural effusion. No pneumothorax. Cardiomediastinal silhouette: Normal cardiomediastinal silhouette. Bones and soft tissues: Unremarkable. DIVISION OF RADIOLOGY Provider, [facility] - 07/24/2023 * * *Final Report* * * DATE OF EXAM: Jul 23 2023 2:39PM WOX 5291 - XR CHEST 2V FRONTAL/LAT / PROCEDURE REASON: SOB (shortness of breath) * * * * Physician Interpretation * * * * EXAMINATION: CHEST RADIOGRAPH (2 VIEW FRONTAL & LATERAL) CLINICAL HISTORY: SOB (shortness of breath) MQ: XC2_6 EXAM DATE/TIME: 07/23/2023 2:39 PM COMPARISON: Chest x-ray on 12/25/2022 RESULT: Lines, tubes, and devices: None. Lungs and pleura: Scarring or atelectasis seen in the lingula versus right middle lobe. No consolidation. No lung mass. No pleural effusion. No pneumothorax. Cardiomediastinal silhouette: Normal cardiomediastinal silhouette. Bones and soft tissues: Unremarkable. IMPRESSION IMPRESSION: Scarring or atelectasis as described above. Power Engineer: SANDHYA Transcribe Date/Time: Jul 24 2023 9:37A Dictated by : TAWANA ARZOLA MD This examination was interpreted and the report reviewed and electronically signed by: TAWANA ARZOLA MD on Jul 24 2023 9:41AM EST [facility] XR Chest PA and LateralOrder ed By: Ccf Provider on 07-24-2023 [facility] CBC W Auto Differential pane l (Bld)on 07-23-2023 Basophils (Bld) [#/Vol] <0.11 k/uL [facility] Basophils/100 WBC (Bld) 0.4 % [facility] Differential cell count method Nom (Bld) Auto [facility] Eosinophils (Bld) [#/Vol] 0.05 10*3/uL <0.46 k/uL [facility] Eosinophils/100 WBC (Bld) 0.9 % [facility] Erythrocyte distribution width (RBC) [Ratio] 14.6 % 11.5 - 15.0 % [facility] Hematocrit (Bld) [Volume fraction] 40.1 % 36.0 - 46.0 % [facility] Hemoglobin (Bld) [Mass/Vol] 13.1 g/dL 11.5 - 15.5 g/dL [facility] Immature granulocytes (Bld) [#/Vol] <0.10 k/uL [facility] Immature granulocytes/100 WBC (Bld) 0.4 % [facility] Lymphocytes (Bld) [#/Vol] 1.81 10*3/uL 1.00 - 4.00 k/uL [facility] Lymphocytes/100 WBC (Bld) 32.1 % [facility] MCH (RBC) [Entitic mass] 28.7 pg 26.0 - 34.0 pg [facility] MCHC (RBC) [Mass/Vol] 32.7 g/dL 30.5 - 36.0 g/dL [facility] MCV (RBC) [Entitic vol] 87.9 fL 80.0 - 100.0 fL [facility] Monocytes (Bld) [#/Vol] 0.31 10*3/uL <0.87 k/uL [facility] Monocytes/100 WBC (Bld) 5.5 % [facility] Neutrophils (Bld) [#/Vol] 3.43 10*3/uL 1.45 - 7.50 k/uL [facility] Neutrophils/100 WBC (Bld) 60.7 % [facility] Nucleated RBC (Bld) [#/Vol] 0.02 10*3/uL High <0.01 k/uL [facility] Nucleated RBC/100 WBC (Bld) [Ratio] 0.4 /100 WBC [facility] Platelet mean volume (Bld) [Entitic vol] 10.9 fL 9.0 - 12.7 fL [facility] Platelets (Bld) [#/Vol] 209 10*3/uL 150 - 400 k/uL [facility] RBC (Bld) [#/Vol] 4.56 10*6/uL 3.90 - 5.2 0 m/uL [facility] WBC (Bld) [#/Vol] 5.64 10*3/uL 3.70 - 11.00 k/uL [facility] Comprehensive metabolic 2000 panelon 07-23-2023 Albumin [Mass/Vol] 4.6 g/dL 3.9 - 4.9 g/dL [facility] ALP [Catalytic activity/Vol] 66 U/L 34 - 123 U/L [facility] ALT [Catalytic activity/Vol] 12 U/L 7 - 38 U/L [facility] Anion gap [Moles/Vol] 11 mmol/L 9 - 18 mmol/L [facility] AST [Catalytic activity/Vol] 13 U/L 13 - 35 U/L [facility] Bilirubin [Mass/Vol] 0.5 mg/dL 0.2 - 1 .3 mg/dL [facility] Calcium [Mass/Vol] 9.5 mg/dL 8.5 - 10. 2 mg/dL [facility] Chloride [Moles/Vol] 106 mmol/L High 97 - 10 5 mmol/L [facility] CO2 [Moles/Vol] 23 mmol/L 22 - 30 mmol/L [facility] Creatinine [Mass/Vol] 1.00 mg/dL High 0.58 - 0.96 mg/dL [facility] Estimated Glomerular Filtration Rate 69 mL/min/1.73m >=60 mL/min/1.73 m [facility] Glucose [Mass/Vol] 76 mg/dL 74 - 99 mg/dL [facility] Potassium [Moles/Vol] 4.1 mmol/L 3.7 - 5.1 mmol/L [facility] Protein [Mass/Vol] 7.1 g/dL 6.3 - 8.0 g/dL [facility] Sodium [Moles/Vol] 140 mmol/L 136 - 144 mmol/L [facility] Urea nitrogen [Mass/Vol] 28 mg/dL High 7 - 21 mg/dL [facility] HbA1c (Bld)on 07-23-2023 Average glucose Estimated from glycated hemoglobin (Bld) [Mass/Vol] 91 mg/dL [facility] HbA1c (Bld) [Mass fraction] 4.8 % 4.3 - 5.6 % [facility] T4 FREE/FREE THYROXINEon Free T4 [Mass/Vol] 1.2 ng/dL 0.9 - 1.7 ng/dL [facility] THYROID STIMULATING HORMONEo n 07-23-2023 TSH Qn 1.480 m[IU]/L 0.270 - 4.200 mIU/L [facility] XR Chest PA and Lateralon Radiology Study observation (narrative) [facility] Plastic Surgery Visit Report on 07-08-2023 Plastic Surgery Visit Report [facility] [address], [address] [place] [address] OFFICE VISIT Date of Service: 07/08/23 MR#: [id number] Acct: [id number] Name: RADHAENIDSALMA Rep #: [id number] : 1975 Provider: Dr. Nani casas MD Age/Sex: 48/F [place] [facility] Status: Signed Intake Vital Signs 06/17/23 10:05 07/08/23 10:05 Height 5 ft 4 in 5 ft 4 in Respiration 16 Pulse 62 Pulse Source Monitor Temp 97.5 F L Temp Source Temporal Pulse Oximetry (%) 97 Oxygen Delivery Method room air Intake Visit Reasons: Follow up for laser, office procedure - IPL #2 Chief Complaint: eval painful cutaneous vascular hypertrophic scars chin and upper neck Commercial Cleaner Required: No Accompanied by: None Allergies bupropion Allergy (Verified 07/08/23 10:04) Itching Medications Omeprazole [Prilosec] 40 mg PO BID gerd 07/17/16 [History Confirmed 07/08/23] tizanidine 4 mg capsule 4 mg PO TID PRN Muscle Spasm 04/29/20 [History Confirmed 07/08/23] atenolol 50 mg tablet 50 mg PO 1200 blood pressure 01/30/21 [History Confirmed 07/08/23] buspirone 5 mg tablet 5 tab PO DAILY 09/26/21 [History Confirmed 07/08/23] rizatriptan 10 mg tablet 1 tab PO PRN PRN Migraine Headache 09/26/21 [History Confirmed 07/08/23] sertraline 100 mg tablet 200 mg PO BID mental health 05/12/22 [History Confirmed 07/08/23] gabapentin 300 mg capsule 300 mg PO BID 30 days #60 caps 12/01/22 [Rx Confirmed 07/08/23] Patient : No PFSH Medical History Anxiety Arthritis Back pain Cardiology follow-up encounter Depression Easy bruising Encounter for incision and drainage procedure Excessive bleeding Gastric reflux Headache History of methicillin resistant staphylococcus aureus (MRSA) Hx of fracture of ankle Hypertension Hypertrophic scar of skin Late effect of facial wound Migraine headache Non-smoker Open wound of chin Open wound of neck with complication Pain Painful scar Scar adherent Shortness of breath on exertion Tumors Unspecified open wound of unspecified part of neck, sequela Vision problems Wears dentures Surgical History History of ankle surgery History of excision of lesion History of incision and drainage Hx laparoscopic cholecystectomy Hx of hysterectomy Hx of nasal septoplasty Stomach tumor (benign) Family History Mother Anxiety Arthritis Depression Diabetes High cholesterol Osteoporosis Hypertension Sister Anxiety Depression Hypertension STD (female) Grandmother Arthritis Depression Hypertension Grandfather Hypertension Arthritis Social History Smoking Status: Never smoker alcohol intake: current details: A Couple Of Drinks Per Month substance use type: does not use what type of physical activity do you participate in: none HPI Follow up for laser Details: 48 year old woman presents for destruction of painful thickened erythematous scar lesions located on her chin and upper anterior neck after excision of MRSA scar contour deformity with flap reconstruction on her chin and upper anterior neck in June, using IPL device and ResurFX laser alternating every 3 weeks. She has had one treatment using the IPL device on 05/27/23 and one treatment using ResurFX laser (1565 nm) on 06/17/23. The following conditions are applicable to the areas being treated.??? Patient denies active infection in the areas to be treated.??? There are no dysplastic nevi. ??? There are no tattoos.??? There are not any significant concurrent skin conditions or any inflammatory skin conditions.??? There are no active cold sores, open lacerations, or abrasions.??? There are no chronic or cutaneous viral, fungal, or bacterial diseases.??? Patient states she has refrained from sun exposure and tanning for the past 4 weeks.??? There is no history or concurrent condition of skin cancer or pre-cancerous lesions at the treatment areas.??? There are no permanent dermal implants. Patient denies bleeding coagulopathies.??? She denies keloid scarring.??? She denies herpes simplex.??? She denies lupus or porphyria.??? She denies immunosuppressive diseases such as AIDS and HIV.??? She denies uncontrolled systemic diseases such as diabetes mellitus, epilepsy, or congestive heart disease.??? She denies photosensitivity which can lead to a rash or allergic reaction.??? She denies hormonal disorders such as polycystic ovary syndrome.??? She denies gold therapy.??? She denies radiation therapy.??? She denies prior use of collagen, fat injections, or dermal fillers in the areas to be treated. (more content not included)... Normal [facility] XR Knee - right 4 Viewson IMPRESSION: Small knee joint effusion without acute osseous abnormality. Power Engineer: SANDHYA Transcribe Date/Time: Jul 01 2023 3:10P Dictated by : PUJA FRAZIER MD This examination was interpreted and the report reviewed and electronically signed by: PUJA FRAZIER MD on Jul 01 2023 3:11PM EST [facility] * * *Final Report* * * DATE OF EXAM: Jun 29 2023 1:16PM MDO 5203 - XR KNEE 4V AP/PA BOTH+LAT/ERCI RT / PROCEDURE REASON: M25.561-Right knee pain, unspecified chronicity * * * * Physician Interpretation * * * * EXAMINATION / TECHNIQUE: XR KNEE 4V AP/PA BOTH+LAT/ERIC RT HISTORY: RIGHT KNEE PAIN Right knee pain, unspecified chronicity COMPARISON: Radiographs dated 10/19/2022 RESULT: No acute fracture or dislocation. Joint spaces are maintained without significant degenerative change. Small knee joint effusion. [facility] * * *Final Report* * * DATE OF EXAM: Jun 29 2023 1:16PM MDO 5203 - XR KNEE 4V AP/PA BOTH+LAT/ERIC RT / PROCEDURE REASON: M25.561-Right knee pain, unspecified chronicity * * * * Physician Interpretation * * * * EXAMINATION / TECHNIQUE: XR KNEE 4V AP/PA BOTH+LAT/REIC RT HISTORY: RIGHT KNEE PAIN Right knee pain, unspecified chronicity COMPARISON: Radiographs dated 10/19/2022 RESULT: No acute fracture or dislocation. Joint spaces are maintained without significant degenerative change. Small knee joint effusion. IMPRESSION IMPRESSION: Small knee joint effusion without acute osseous abnormality. Power Engineer: SANDHYA Transcribe Date/Time: Jul 01 2023 3:10P Dictated by : PUJA FRAZIER MD This examination was interpreted and the report reviewed and electronically signed by: PUJA FRAZIER MD on Jul 01 2023 3:11PM [facility] XR Knee - right 4 ViewsOrder ed By: Ccf Provider on 07-01-2023 [facility] XR Knee - right 4 Viewson Radiology Study observation (narrative) [facility] Plastic Surgery Visit Report on 06-17-2023 Plastic Surgery Visit Report [facility]astic [facility]constructive Surgery [address], [address] [place] [address] OFFICE VISIT Date of Service: 06/17/23 MR#: [id number] Acct: [id number] Name: SALMA BROWNING Rep #: [id number] : 1975 Provider: Dr. Nani casas MD Age/Sex: 48/F [place] [facility] Status: Signed Intake Vital Signs 05/27/23 10:04 05/27/23 10:36 06/17/23 10:05 Height 5 ft 4 in 5 ft 4 in 5 ft 4 in Respiration 16 Pulse 70 Pulse Source Monitor Temp 97.5 F L Temp Source Temporal Pulse Oximetry (%) 98 Oxygen Delivery Method room air Intake Visit Reasons: 0ffice procedure - ReSurFx #1 Chief Complaint: eval painful cutaneous vascular hypertrophic scars chin and upper neck Commercial Cleaner Required: No Accompanied by: None Allergies bupropion Allergy (Verified 06/17/23 10:05) Itching Medications Omeprazole [Prilosec] 40 mg PO BID gerd 07/17/16 [History Confirmed 06/17/23] tizanidine 4 mg capsule 4 mg PO TID PRN Muscle Spasm 04/29/20 [History Confirmed 06/17/23] atenolol 50 mg tablet 50 mg PO 1200 blood pressure 01/30/21 [History Confirmed 06/17/23] buspirone 5 mg tablet 5 tab PO DAILY 09/26/21 [History Confirmed 06/17/23] rizatriptan 10 mg tablet 1 tab PO PRN PRN Migraine Headache 09/26/21 [History Confirmed 06/17/23] sertraline 100 mg tablet 200 mg PO BID mental health 05/12/22 [History Confirmed 06/17/23] gabapentin 300 mg capsule 300 mg PO BID 30 days #60 caps 12/01/22 [Rx Confirmed 06/17/23] [facility] History Anxiety Arthritis Back pain Cardiology follow-up encounter Depression Easy bruising Encounter for incision and drainage procedure Excessive bleeding Gastric reflux Headache History of methicillin resistant staphylococcus aureus (MRSA) Hx of fracture of ankle Hypertension Hypertrophic scar of skin Late effect of facial wound Migraine headache Non-smoker Open wound of chin Open wound of neck with complication Pain Painful scar Scar adherent Shortness of breath on exertion Tumors Unspecified open wound of unspecified part of neck, sequela Vision problems Wears dentures Surgical History History of ankle surgery History of excision of lesion History of incision and drainage Hx laparoscopic cholecystectomy Hx of hysterectomy Hx of nasal septoplasty Stomach tumor (benign) Family History Mother Anxiety Arthritis Depression Diabetes High cholesterol Osteoporosis Hypertension Sister Anxiety Depression Hypertension STD (female) Grandmother Arthritis Depression Hypertension Grandfather Hypertension Arthritis Social History Smoking Status: Never smoker alcohol intake: current details: A Couple Of Drinks Per Month substance use type: does not use what type of physical activity do you participate in: none HPI 0ffice procedure - ReSurFx #1 Details: 48 year old woman presents for destruction of painful thickened erythematous scar lesions located on her chin and upper anterior neck after excision of MRSA scar contour deformity with flap reconstruction on her chin and upper anterior neck in June,. We are planning on using IPL device and ResurFX laser alternating every 3 weeks. She had her first IPL treatment on 05/29/23. Today will be the first ResurFx laser (1565 nm) treatment. The following conditions are applicable to the areas being treated.??? Patient denies active infection in the areas to be treated.??? There are no dysplastic nevi. ??? There are no tattoos.??? There are not any significant concurrent skin conditions or any inflammatory skin conditions.??? There are no active cold sores, open lacerations, or abrasions.??? There are no chronic or cutaneous viral, fungal, or bacterial diseases.??? Patient states she has refrained from sun exposure and tanning for the past 4 weeks.??? There is no history or concurrent condition of skin cancer or pre-cancerous lesions at the treatment areas.??? There are no permanent dermal implants. Patient denies bleeding coagulopathies.??? She denies keloid scarring.??? She denies herpes simplex.??? She denies lupus or porphyria.??? She denies immunosuppressive diseases such as AIDS and HIV.??? She denies uncontrolled systemic diseases such as diabetes mellitus, epilepsy, or congestive heart disease.??? She denies photosensitivity which can lead to a rash or allergic reaction.??? She denies hormonal disorders such as polycystic ovary syndrome.??? She denies gold therapy.??? She denies radiation therapy.??? She denies prior use of collagen, fat injections, or dermal fillers in t (more content not included)... Normal [facility] Plastic Surgery Visit Report on 05-27-2023 Plastic Surgery Visit Report [facility]ive Surgery [address], [address] [place] [address] OFFICE VISIT Date of Service: 05/27/23 MR#: [id number] Acct: [id number] Name: SALMA BROWNING Rep #: [id number] : 1975 Provider: Dr. Nani casas MD Age/Sex: 48/F [place] [facility] Status: Signed Intake Vital Signs 12/08/22 11:37 05/27/23 10:04 Height 5 ft 4 in 5 ft 4 in Weight: 269 lb 2 oz BMI 46.2 Body Surface Area 2.22 Respiration 16 Pulse 63 Pulse Source Monitor Temp 97.3 F L Temp Source Temporal Pulse Oximetry (%) 99 Oxygen Delivery Method room air Intake Visit Reasons: office procedure- IPL #1 Chief Complaint: eval painful cutaneous vascular hypertrophic scars chin and upper neck Commercial Cleaner Required: No Accompanied by: None Is patient in pain?: Yes Allergies bupropion Allergy (Verified 05/27/23 10:04) Itching Medications Omeprazole [Prilosec] 40 mg PO BID gerd 07/17/16 [History Confirmed 05/27/23] tizanidine 4 mg capsule 4 mg PO TID PRN Muscle Spasm 04/29/20 [History Confirmed 05/27/23] atenolol 50 mg tablet 50 mg PO 1200 blood pressure 10/28/21 [History Confirmed 05/27/23] buspirone 5 mg tablet 5 tab PO DAILY 09/26/21 [History Confirmed 05/27/23] rizatriptan 10 mg tablet 1 tab PO PRN PRN Migraine Headache 09/26/21 [History Confirmed 05/27/23] sertraline 100 mg tablet 200 mg PO BID mental health 05/12/22 [History Confirmed 05/27/23] gabapentin 300 mg capsule 300 mg PO BID 30 days #60 caps 12/01/22 [Rx Confirmed 05/27/23] Patient : No PFSH Medical History Anxiety Arthritis Back pain Cardiology follow-up encounter Depression Easy bruising Encounter for incision and drainage procedure Excessive bleeding Gastric reflux Headache History of methicillin resistant staphylococcus aureus (MRSA) Hx of fracture of ankle Hypertension Hypertrophic scar of skin Late effect of facial wound Migraine headache Non-smoker Open wound of chin Open wound of neck with complication Pain Painful scar Scar adherent Shortness of breath on exertion Tumors Unspecified open wound of unspecified part of neck, sequela Vision problems Wears dentures Surgical History History of ankle surgery History of excision of lesion History of incision and drainage Hx laparoscopic cholecystectomy Hx of hysterectomy Hx of nasal septoplasty Stomach tumor (benign) Family History Mother Anxiety Arthritis Depression Diabetes High cholesterol Osteoporosis Hypertension Sister Anxiety Depression Hypertension STD (female) Grandmother Arthritis Depression Hypertension Grandfather Hypertension Arthritis Social History Smoking Status: Never smoker alcohol intake: current details: A Couple Of Drinks Per Month substance use type: does not use what type of physical activity do you participate in: none HPI office procedure- IPL #1 Details: 48 year old woman presents for destruction of painful thickened erythematous scar lesions located on her chin and upper anterior neck after excision of MRSA scar contour deformity with flap reconstruction on her chin and upper anterior neck in June, using IPL device and ResurFX laser alternating every 3 weeks. She has not had any previous treatments for this. The following conditions are applicable to the areas being treated.??? Patient denies active infection in the areas to be treated.??? There are no dysplastic nevi. ??? There are no tattoos.??? There are not any significant concurrent skin conditions or any inflammatory skin conditions.??? There are no active cold sores, open lacerations, or abrasions.??? There are no chronic or cutaneous viral, fungal, or bacterial diseases.??? Patient states she has refrained from sun exposure and tanning for the past 4 weeks.??? There is no history or concurrent condition of skin cancer or pre-cancerous lesions at the treatment areas.??? There are no permanent dermal implants. Patient denies bleeding coagulopathies.??? She denies keloid scarring.??? She denies herpes simplex.??? She denies lupus or porphyria.??? She denies immunosuppressive diseases such as AIDS and HIV.??? She denies uncontrolled systemic diseases such as diabetes mellitus, epilepsy, or congestive heart disease.??? She denies photosensitivity which can lead to a rash or allergic reaction.??? She denies hormonal disorders such as polycystic ovary syndrome.??? She denies gold therapy.??? She denies radiation therapy.??? She denies prior use of collagen, fat injections, or dermal fillers in the areas to be treate (more content not included)... Normal [facility] XR Cervical spine AP and Lat eral and obliqueon 05-14-2023 IMPRESSION: C5-6 dis c space narrowing likely degenerative. Power Engineer: SANDHYA Transcribe Date/Time: May 14 2023 9:23P Dictated by : TAWANA ARZOLA MD This examination was interpreted and the report reviewed and electronically signed by: TAWANA ARZOLA MD on May 14 2023 9:25PM [facility] * * *Final Report* * * DATE OF EXAM: May 14 2023 10:14AM WOX 5311 - XR CERVICAL 4V AP/LAT/OBL / PROCEDURE REASON: Cervicalgia * * * * Physician Interpretation * * * * EXAM TITLE: XR CERVICAL 4V AP/LAT/OBL EXAM DATE/TIME: 05/14/2023 10:14 AM COMPARISON: None. CLINICAL INDICATION/HISTORY: Cervicalgia TECHNIQUE: AP, lateral and oblique views of the cervical spine are presented. FINDINGS: No fractures or subluxations are noted. C5-6 disc space narrowing is demonstrated. There is no significant osteophyte formation. The neural foramina are grossly patent. The prevertebral soft tissues are normal. [facility]/14/[facility] * * *Final Report* * * DATE OF EXAM: May 14 2023 10:14AM WOX 5311 - XR CERVICAL 4V AP/LAT/OBL / PROCEDURE REASON: Cervicalgia * * * * Physician Interpretation * * * * EXAM TITLE: XR CERVICAL 4V AP/LAT/OBL EXAM DATE/TIME: 05/14/2023 10:14 AM COMPARISON: None. CLINICAL INDICATION/HISTORY: Cervicalgia TECHNIQUE: AP, lateral and oblique views of the cervical spine are presented. FINDINGS: No fractures or subluxations are noted. C5-6 disc space narrowing is demonstrated. There is no significant osteophyte formation. The neural foramina are grossly patent. The prevertebral soft tissues are normal. IMPRESSION IMPRESSION: C5-6 disc space narrowing likely degenerative. Power Engineer: [facility]ITAL[facility] Transcribe Date/Time: May 14 2023 9:23P Dictated by : TAWANA ARZOLA MD This examination was interpreted and the report reviewed and electronically signed by: TAWANA ARZOLA MD on May 14 2023 9:25PM EST [facility] Radiology Study observation (narrative) [facility] XR Cervical spine AP and Lat eral and obliqueOrdered By: Ccf Provider on 05-14-2023 [facility] XR Chest PA and Lateralon IMPRESSION: Atelectasis or scarring in the left lower lung. Power Engineer: PSCB Transcribe Date/Time: Dec 25 2022 9:41A Dictated by : TAWANA ARZOLA MD This examination was interpreted and the report reviewed and electronically signed by: TAWANA ARZOLA MD on Dec 25 2022 9:43AM [facility]OLOG[facility] * * *Final Report* * * DATE OF EXAM: Dec 25 2022 9:41AM WOX 5291 - XR CHEST 2V FRONTAL/LAT / PROCEDURE REASON: Bronchitis * * * * Physician Interpretation * * * * EXAMINATION: CHEST RADIOGRAPH (2 VIEW FRONTAL & LATERAL) CLINICAL HISTORY: Bronchitis MQ: XC2_6 EXAM DATE/TIME: 12/25/2022 9:41 AM COMPARISON: Chest x-ray on 01/16/2019. RESULT: Lines, tubes, and devices: None. Lungs and pleura: A few small linear opacities in the left lower lung (probably in the lingula), likely representing atelectasis or scarring. The remaining lungs are clear. No mass lesion identified. No pleural effusions or pneumothorax. Cardiomediastinal silhouette: Normal cardiomediastinal silhouette. Bones and soft tissues: Unremarkable. DIVISION OF RADIOLOGY Provider, [facility] - 12/25/2022 * * *Final Report* * * DATE OF EXAM: Dec 25 2022 9:41AM WOX 5291 - XR CHEST 2V FRONTAL/LAT / PROCEDURE REASON: Bronchitis * * * * Physician Interpretation * * * * EXAMINATION: CHEST RADIOGRAPH (2 VIEW FRONTAL & LATERAL) CLINICAL HISTORY: Bronchitis MQ: XC2_6 EXAM DATE/TIME: 12/25/2022 9:41 AM COMPARISON: Chest x-ray on 01/16/2019. RESULT: Lines, tubes, and devices: None. Lungs and pleura: A few small linear opacities in the left lower lung (probably in the lingula), likely representing atelectasis or scarring. The remaining lungs are clear. No mass lesion identified. No pleural effusions or pneumothorax. Cardiomediastinal silhouette: Normal cardiomediastinal silhouette. Bones and soft tissues: Unremarkable. IMPRESSION IMPRESSION: Atelectasis or scarring in the left lower lung. Power Engineer: PSCB Transcribe Date/Time: Dec 25 2022 9:41A Dictated by : TAWANA ARZOLA MD This examination was interpreted and the report reviewed and electronically signed by: TAWANA ARZOLA MD on Dec 25 2022 9:43AM EST [facility] Radiology Study observation (narrative) [facility] XR Chest PA and LateralOrder ed By: Ccf Provider on 12-25-2022 [facility] ALLIE SCREENING W TOMOon 12-08 [facility] XR FOOT GENERAL 3V AP/LAT/OB L LEFTon 11-04-2022 [facility] CT FOOT WO IVCON LEFTon 10-03 [facility] No Panel Informationon 10-19 [facility] XR FOOT GENERAL 3V AP/LAT/OB L LEFTon 09-14-2022 [facility] CBC W Auto Differential pane l (Bld)on 07-30-2022 Basophils (Bld) [#/Vol] <0.11 k/uL [facility] Basophils/100 WBC (Bld) 0.5 % [facility] Differential cell count method Nom (Bld) Auto [facility] Eosinophils (Bld) [#/Vol] <0.46 k/uL [facility] Eosinophils/100 WBC (Bld) 0.0 % [facility] Erythrocyte distribution width (RBC) [Ratio] 13.0 % 11.5 - 15.0 % [facility] Hematocrit (Bld) [Volume fraction] 42.1 % 36.0 - 46.0 % [facility] Hemoglobin (Bld) [Mass/Vol] 13.7 g/dL 11.5 - 15.5 g/dL [facility] Immature granulocytes (Bld) [#/Vol] <0.10 k/uL [facility] Immature granulocytes/100 WBC (Bld) 0.2 % [facility] Lymphocytes (Bld) [#/Vol] 1.64 10*3/uL 1.00 - 4.00 k/uL [facility] Lymphocytes/100 WBC (Bld) 38.3 % [facility] MCH (RBC) [Entitic mass] 28.4 pg 26.0 - 34.0 pg [facility] MCHC (RBC) [Mass/Vol] 32.5 g/dL 30.5 - 36.0 g/dL [facility] MCV (RBC) [Entitic vol] 87.2 fL 80.0 - 100.0 fL [facility] Monocytes (Bld) [#/Vol] 0.27 10*3/uL <0.87 k/uL [facility] Monocytes/100 WBC (Bld) 6.3 % [facility] Neutrophils (Bld) [#/Vol] 2.34 10*3/uL 1.45 - 7.50 k/uL [facility] Neutrophils/100 WBC (Bld) 54.7 % [facility] Nucleated RBC (Bld) [#/Vol] <0.01 k/uL [facility] Nucleated RBC/100 WBC (Bld) [Ratio] 0.0 /100 WBC [facility] Platelet mean volume (Bld) [Entitic vol] 10.5 fL 9.0 - 12.7 fL [facility] Platelets (Bld) [#/Vol] 187 10*3/uL 150 - 400 k/uL [facility] RBC (Bld) [#/Vol] 4.83 10*6/uL 3.90 - 5.2 0 m/uL [facility] WBC (Bld) [#/Vol] 4.28 10*3/uL 3.70 - 11.00 k/uL [facility] Laboratory - Drug toxicology Ordered By: Dr. Zhou on 05-06-2022 Amphetamines Ql (U) Negative <1000 ng/mL [facility] Benzodiazepines Ql (U) Negative < 200 ng/mL [facility] Cannabinoids Screen Ql (U) Negative < 50 ng/mL [facility] Cocaine Ql (U) Negative < 300 ng/mL [facility] Opiates Ql (U) Negative < 300 ng/mL [facility] No Panel InformationOrdered By: Dr. Zhou on 05-06-2022 MDMA (Ecstasy) Screen Negative < 500 ng/mL [facility] Miscellaneous Test See comment [facility] Comment on above: [id number] 6+OXYCODONE-B UND (ng/mL) DRUG RESULT SCREEN CUTOFF____ Amphetamines,Urine Negative ng/mL 1000 Amphetamine test includes Amphetamine and Methamphetamine.Barbiturates Negative ng/mL 200Benzodiazepines Negative ng/mL 200Cannabinoid Negative ng/mL 20Cocaine (Metab) Negative ng/mL 300Opiates Negative ng/mL 300 Opiates test includes Codeine, Morphine, Hydromorphone, Hydrocodone. Oxycodone/Oxymorphone,Urine Negative ng/mL 300 Test includes Oxydodone and Oxymorphone. ____ TESTING PERFORMED AT [facility]. ORIGINAL REPORT ON FILE IN LAB CONTAINS ADDITIONAL TEST SITE INFORMATION. ____ Urine Barbiturates Screen Negative < 200 ng/mL [facility] Urine Drug Screen Comment [facility] Comment on above: CONFIRMATORY TESTING FOR ALL POSITIVE URINE DRUG SCREENRESULTS WILL ONLY BE SENT OUT UPON PHYSICIAN ORDER. VISTA Urine Drug Screen methods provide only preliminaryanalytical test results. A more specific alternate chemicalmethod must be used in order to obtain a confirmedanalytical result. Gas chromatography/mass spectrometery(GC/MS) is the preferred confirmatory method. Clinicalconsideration and professional judgement should be appliedto any drug of abuse test result, particularly whenpreliminary positive results are used. URINE TCA TESTING MUST BE ORDERED SEPARATELY. USE TESTMNEMONIC: [facility] Urine Methadone Screen Negative < 300 ng/mL [facility] Urine phencyclidine (PCP) de tectionOrdered By: Dr. Zhou on 05-06-2022 Phencyclidine Ql (U) Negative < 25 ng/mL [facility] STREP A MOLECULAR (POC)on Procedural Control Valid [facility] Strep A (POCT) Positive Abnormal Negative [facility] XR FOOT GENERAL 3V AP/LAT/OB [place] 12-10-2021 [facility] Vital Signs Date Time Vital Sign Value Performing Clinician Facility 11-29-2024 13:41-0400 Body height 162.6 cm Lupe Riddle MD Work Phone: 11-29-2024 13:41-0400 Body mass index (BMI) [Ratio] 47.92 kg/m2 Lupe Riddle MD Work Phone: 11-29-2024 13:41-0400 Body weight 126.64 kg Lupe Riddle MD Work Phone: 11-29-2024 13:41-0400 Diastolic blood pressure 86 mm[Hg] Lupe Riddle MD Work Phone: 11-29-2024 13:41-0400 Heart rate 103 /min Lupe Riddle MD Work Phone: [facility] 11-29-2024 13:41-0400 Systolic blood pressure 137 mm[Hg] Lupe Riddle MD Work Phone: [facility] 10-04-2024 14:27-0400 Body height 162.6 cm Lupe Riddle MD Work Phone: [facility] 10-04-2024 14:27-0400 Body mass index (BMI) [Ratio] 47.82 kg/m2 Lupe Riddle MD Work Phone: [facility] 10-04-2024 14:27-0400 Body weight 126.37 kg Lupe Riddle MD Work Phone: [facility] 10-04-2024 14:27-0400 Diastolic blood pressure 76 mm[Hg] Lupe Riddle MD Work Phone: [facility] 10-04-2024 14:27-0400 Heart rate 71 /min Lupe Riddle MD Work Phone: [facility] 10-04-2024 14:27-0400 Systolic blood pressure 121 mm[Hg] Lupe Riddle MD Work Phone: [facility] 09-13-2024 14:16-0400 Body height 162.6 cm Lupe Riddle MD Work Phone: [facility] 09-13-2024 14:16-0400 Body mass index (BMI) [Ratio] 46.89 kg/m2 Lupe Riddle MD Work Phone: [facility] [employer] 09-13-2024 14:16-0400 Body weight 123.92 kg Lupe Riddle MD Work Phone: [facility] 09-13-2024 14:16-0400 Diastolic blood pressure 89 mm[Hg] Lupe Riddle MD Work Phone: [facility] 09-13-2024 14:16-0400 Heart rate 120 /min Lupe Riddle MD Work Phone: 09-13-2024 14:16-0400 Systolic blood pressure 118 mm[Hg] Lupe Riddle MD Work Phone: 09-04-2024 10:30-0400 Body mass index (BMI) [Ratio] 47.2 kg/m2 Neal Gomez GIFTED TEACHER.HEARING AID DISPENSER Work Phone: [facility] 09-04-2024 10:30-0400 Body weight 124.74 kg Neal Gomez GIFTED TEACHER.HEARING AID DISPENSER Work Phone: [facility] 09-04-2024 10:30-0400 Diastolic blood pressure 90 mm[Hg] Neal Gomez GIFTED TEACHER.HEARING AID DISPENSER Work Phone: [facility] 09-04-2024 10:30-0400 Heart rate 68 /min Neal Gomez GIFTED TEACHER.HEARING AID DISPENSER Work Phone: [facility] 09-04-2024 10:30-0400 Respiratory rate 16 /min Neal Gomez GIFTED TEACHER.HEARING AID DISPENSER Work Phone: [facility] 09-04-2024 10:30-0400 SaO2% (BldA) [Mass fraction] 98 % Neal Gomez GIFTED TEACHER.HEARING AID DISPENSER Work Phone: [facility] 09-04-2024 10:30-0400 Systolic blood pressure 128 mm[Hg] Neal Gomez GIFTED TEACHER.HEARING AID DISPENSER Work Phone: [facility] 08-16-2024 14:59-0400 Body height 162.6 cm Lupe Riddle MD Work Phone: 08-16-2024 14:59-0400 Body mass index (BMI) [Ratio] 46.96 kg/m2 Lupe Riddle MD Work Phone: 08-16-2024 14:59-0400 Body weight 124.1 kg Lupe Riddle MD Work Phone: 08-16-2024 14:59-0400 Diastolic blood pressure 83 mm[Hg] Lupe Riddle MD Work Phone: 08-16-2024 14:59-0400 Heart rate 83 /min Lupe Riddle MD Work Phone: 08-16-2024 14:59-0400 Systolic blood pressure 138 mm[Hg] Lupe Riddle MD Work Phone: 07-14-2024 13:14-0400 Body height 162.6 cm Lupe Riddle MD Work Phone: 07-14-2024 13:14-0400 Body mass index (BMI) [Ratio] 47.62 kg/m2 Lupe Riddle MD Work Phone: 07-14-2024 13:14-0400 Body weight 125.83 kg Lupe Riddle MD Work Phone: 07-14-2024 13:14-0400 Diastolic blood pressure 99 mm[Hg] Lupe Riddle MD Work Phone: 07-14-2024 13:14-0400 Heart rate 71 /min Lupe Riddle MD Work Phone: 07-14-2024 13:14-0400 Systolic blood pressure 139 mm[Hg] Lupe Riddle MD Work Phone: 03-14-2024 10:26-0500 Body mass index (BMI) [Ratio] 46.02 kg/m2 Krislyn Aberegg PA Work Phone: [facility] 03-14-2024 10:26-0500 Body temperature 98.1 [degF] Krislyn Aberegg PA Work Phone: [facility] 03-14-2024 10:26-0500 Body weight 121.6 kg Krislyn Aberegg PA Work Phone: [facility] 03-14-2024 10:26-0500 Diastolic blood pressure 76 mm[Hg] Krislyn Aberegg PA Work Phone: [facility] 03-14-2024 10:26-0500 Heart rate 94 /min Krislyn Aberegg PA Work Phone: [facility] 03-14-2024 10:26-0500 Respiratory rate 16 /min Krislyn Aberegg PA Work Phone: [facility] 03-14-2024 10:26-0500 SaO2% (BldA) [Mass fraction] 100 % Krislyn Aberegg PA Work Phone: [facility] 03-14-2024 10:26-0500 Systolic blood pressure 122 mm[Hg] Krislyn Aberegg PA Work Phone: [facility] 03-10-2024 10:31-0500 Diastolic blood pressure 72 mm[Hg] Nate Winters MD Work Phone: [facility] 03-10-2024 10:31-0500 Heart rate 77 /min Nate Winters MD Work Phone: [employer] 03-10-2024 10:31-0500 Respiratory rate 20 /min Nate Winters MD Work Phone: [employer] 03-10-2024 10:31-0500 SaO2% (BldA) [Mass fraction] 99 % Nate Winters MD Work Phone: [employer] 03-10-2024 10:31-0500 Systolic blood pressure 121 mm[Hg] Nate Winters MD Work Phone: [employer] 03-10-2024 10:11-0500 Body temperature 97.11 [degF] Nate Winters MD Work Phone: [employer] 03-10-2024 09:47-0500 Body height 162.6 cm Nate Winters MD Work Phone: [employer] 03-10-2024 09:47-0500 Body mass index (BMI) [Ratio] 46.35 kg/m2 Nate Winters MD Work Phone: [employer] 03-10-2024 09:47-0500 Body weight 122.47 kg Nate Winters MD Work Phone: [facility] 02-11-2024 15:02-0500 Body height 162.6 cm Lupe Riddle MD Work Phone: [facility] 02-11-2024 15:02-0500 Body mass index (BMI) [Ratio] 46.55 kg/m2 Lupe Riddle MD Work Phone: [facility] 02-11-2024 15:02-0500 Body weight 123.02 kg Lupe Riddle MD Work Phone: [facility] 02-11-2024 15:02-0500 Diastolic blood pressure 79 mm[Hg] Lupe iRddle MD Work Phone: [facility] 02-11-2024 15:02-0500 Heart rate 77 /min Lupe Riddle MD Work Phone: [facility] 02-11-2024 15:02-0500 Systolic blood pressure 118 mm[Hg] Lupe Riddle MD Work Phone: [facility] 01-04-2024 09:24-0400 Body height 162.6 cm Nate Winters MD Work Phone: [facility] 01-04-2024 09:24-0400 Body mass index (BMI) [Ratio] 46.24 kg/m2 Nate Winters MD Work Phone: [facility] 01-04-2024 09:24-0400 Body temperature 97 [degF] Nate Winters MD Work Phone: [facility] 01-04-2024 09:24-0400 Body weight 122.2 kg Nate Winters MD Work Phone: [facility] 01-04-2024 09:24-0400 Diastolic blood pressure 86 mm[Hg] Nate Winters MD Work Phone: [facility] 01-04-2024 09:24-0400 Heart rate 78 /min Nate Winters MD Work Phone: 01-04-2024 09:24-0400 Respiratory rate 16 /min Nate Winters MD Work Phone: 01-04-2024 09:24-0400 Systolic blood pressure 138 mm[Hg] Nate Winters MD Work Phone: 12-03-2023 13:00-0400 Body height 162.6 cm Mary Mcmillan GIFTED TEACHER.HEARING AID DISPENSER Work Phone: [facility] 12-03-2023 13:00-0400 Body mass index (BMI) [Ratio] 47.98 kg/m2 Mary Begumholyndsay GIFTED TEACHER.HEARING AID DISPENSER Work Phone: [facility] 12-03-2023 13:00-0400 Body weight 126.8 kg Mary Begumholyndsay GIFTED TEACHER.HEARING AID DISPENSER Work Phone: [facility] 12-03-2023 13:00-0400 Diastolic blood pressure 100 mm[Hg] Mray Begumhof GIFTED TEACHER.HEARING AID DISPENSER Work Phone: [facility] 12-03-2023 13:00-0400 Heart rate 88 /min Mary Begumhof GIFTED TEACHER.HEARING AID DISPENSER Work Phone: [facility] 12-03-2023 13:00-0400 Respiratory rate 16 /min Mary Begumhof GIFTED TEACHER.HEARING AID DISPENSER Work Phone: [facility] 12-03-2023 13:00-0400 SaO2% (BldA) [Mass fraction] 97 % Maryadalberto Begumhof GIFTED TEACHER.HEARING AID DISPENSER Work Phone: [facility] 12-03-2023 13:00-0400 Systolic blood pressure 142 mm[Hg] Mary Begumhof GIFTED TEACHER.HEARING AID DISPENSER Work Phone: [facility] 10-20-2023 12:43-0400 Body mass index (BMI) [Ratio] 45.93 kg/m2 Mary Begumholyndsay GIFTED TEACHER.HEARING AID DISPENSER Work Phone: [facility] 10-20-2023 12:43-0400 Body weight 124.29 kg Mary Begumhof GIFTED TEACHER.HEARING AID DISPENSER Work Phone: [facility] 10-20-2023 12:43-0400 Diastolic blood pressure 92 mm[Hg] Mary Begumhof GIFTED TEACHER.HEARING AID DISPENSER Work Phone: [facility] 10-20-2023 12:43-0400 Heart rate 83 /min Mary Begumhof GIFTED TEACHER.HEARING AID DISPENSER Work Phone: [facility] 10-20-2023 12:43-0400 Respiratory rate 16 /min Mary Begumhof GIFTED TEACHER.HEARING AID DISPENSER Work Phone: [facility] 10-20-2023 12:43-0400 SaO2% (BldA) [Mass fraction] 97 % Mary Begumhof GIFTED TEACHER.HEARING AID DISPENSER Work Phone: [facility] 10-20-2023 12:43-0400 Systolic blood pressure 142 mm[Hg] Mary Begumhof GIFTED TEACHER.HEARING AID DISPENSER Work Phone: [facility] 09-28-2023 16:47-0400 Body mass index (BMI) [Ratio] 45.05 kg/m2 Krislyn Aberegg PA Work Phone: [facility] 09-28-2023 16:47-0400 Body temperature 97.39 [degF] Krislyn Aberegg PA Work Phone: [facility] 09-28-2023 16:47-0400 Body weight 121.9 kg Krislyn Aberegg PA Work Phone: [facility] 09-28-2023 16:47-0400 Diastolic blood pressure 82 mm[Hg] Krislyn Aberegg PA Work Phone: [facility] 09-28-2023 16:47-0400 Heart rate 81 /min Krislyn Aberegg PA Work Phone: [facility] 09-28-2023 16:47-0400 Respiratory rate 16 /min Krislyn Aberegg PA Work Phone: [facility] 09-28-2023 16:47-0400 SaO2% (BldA) [Mass fraction] 97 % John Abernathygg PA Work Phone: [facility] 09-28-2023 16:47-0400 Systolic blood pressure 138 mm[Hg] Krislyyovany Aberegg PA Work Phone: [facility] 09-15-2023 14:28-0400 Body mass index (BMI) [Ratio] 44.93 kg/m2 Mary Tannhof GIFTED TEACHER.HEARING AID DISPENSER Work Phone: [facility] 09-15-2023 14:28-0400 Body temperature 98.2 [degF] Mary Tannhof GIFTED TEACHER.HEARING AID DISPENSER Work Phone: [facility] 09-15-2023 14:28-0400 Body weight 121.56 kg Mary Tannhof GIFTED TEACHER.HEARING AID DISPENSER Work Phone: [facility] 09-15-2023 14:28-0400 Diastolic blood pressure 90 mm[Hg] Mary Tannhof GIFTED TEACHER.HEARING AID DISPENSER Work Phone: [facility] 09-15-2023 14:28-0400 Heart rate 82 /min Mary Tannhof GIFTED TEACHER.HEARING AID DISPENSER Work Phone: [facility] 09-15-2023 14:28-0400 Respiratory rate 16 /min Mary Tannhof GIFTED TEACHER.HEARING AID DISPENSER Work Phone: [facility] 09-15-2023 14:28-0400 SaO2% (BldA) [Mass fraction] 97 % Mary Tannhof GIFTED TEACHER.HEARING AID DISPENSER Work Phone: [facility] 09-15-2023 14:28-0400 Systolic blood pressure 118 mm[Hg] Mary Tannhof GIFTED TEACHER.HEARING AID DISPENSER Work Phone: [facility] 08-11-2023 09:35-0400 Body mass index (BMI) [Ratio] 43.96 kg/m2 Mary Tannhof GIFTED TEACHER.HEARING AID DISPENSER Work Phone: [facility] 08-11-2023 09:35-0400 Body weight 118.93 kg Mary Tannhof GIFTED TEACHER.HEARING AID DISPENSER Work Phone: [facility] 08-11-2023 09:35-0400 Diastolic blood pressure 68 mm[Hg] Mary Tannhof GIFTED TEACHER.HEARING AID DISPENSER Work Phone: [facility] 08-11-2023 09:35-0400 Heart rate 66 /min Mary Tannhof GIFTED TEACHER.HEARING AID DISPENSER Work Phone: [facility] 08-11-2023 09:35-0400 Respiratory rate 16 /min Mary Tannhof GIFTED TEACHER.HEARING AID DISPENSER Work Phone: [facility] 08-11-2023 09:35-0400 SaO2% (BldA) [Mass fraction] 95 % Mary Tannhof GIFTED TEACHER.HEARING AID DISPENSER Work Phone: [facility] 08-11-2023 09:35-0400 Systolic blood pressure 132 mm[Hg] Mary Tannhof GIFTED TEACHER.HEARING AID DISPENSER Work Phone: [facility] 07-23-2023 13:38-0400 Body weight 120.2 kg Mary Tannhof GIFTED TEACHER.HEARING AID DISPENSER Work Phone: [facility] 07-23-2023 13:38-0400 Diastolic blood pressure 88 mm[Hg] Mary Tannhof GIFTED TEACHER.HEARING AID DISPENSER Work Phone: [facility] 07-23-2023 13:38-0400 Heart rate 55 /min Mary Tannhof GIFTED TEACHER.HEARING AID DISPENSER Work Phone: [facility] 07-23-2023 13:38-0400 Respiratory rate 16 /min Mary Tannhof GIFTED TEACHER.HEARING AID DISPENSER Work Phone: [facility] 07-23-2023 13:38-0400 SaO2% (BldA) [Mass fraction] 99 % Mary Tannhof GIFTED TEACHER.HEARING AID DISPENSER Work Phone: [facility] 07-23-2023 13:38-0400 Systolic blood pressure 124 mm[Hg] Mary Tannhof GIFTED TEACHER.HEARING AID DISPENSER Work Phone: [facility] 02-09-2024 09:35-0500 Body weight 121.11 kg Neal Selwyn GIFTED TEACHER.HEARING AID DISPENSER Work Phone: [facility] 05-14-2023 09:35-0500 Diastolic blood pressure 84 mm[Hg] Neal Selwyn GIFTED TEACHER.HEARING AID DISPENSER Work Phone: [facility] 05-14-2023 09:35-0500 Heart rate 58 /min Neal Selwyn GIFTED TEACHER.HEARING AID DISPENSER Work Phone: [facility] 05-14-2023 09:35-0500 SaO2% (BldA) [Mass fraction] 99 % Neal Selwyn GIFTED TEACHER.HEARING AID DISPENSER Work Phone: [facility] 05-14-2023 09:35-0500 Systolic blood pressure 139 mm[Hg] Neal Selwyn GIFTED TEACHER.HEARING AID DISPENSER Work Phone: [facility] 12-21-2022 09:07-0400 Body height 164.[address] [facility] 12-21-2022 09:07-0400 Body weight 119.[address] [facility] 12-09-2022 09:50-0400 Body temperature 97.39 [degF] Timothy Gallegos MD Work Phone: [facility] 12-09-2022 09:50-0400 Body weight 118.21 kg Timothy Gallegos MD Work Phone: [facility] 12-09-2022 09:50-0400 Diastolic blood pressure 78 mm[Hg] Timothy Gallegos MD Work Phone: [facility] 12-09-2022 09:50-0400 Heart rate 66 /min Timothy Gallegos MD Work Phone: [facility] 12-09-2022 09:50-0400 Respiratory rate 18 /min Timothy Gallegos MD Work Phone: [facility] 12-09-2022 09:50-0400 SaO2% (BldA) [Mass fraction] 97 % Timothy Gallegos MD Work Phone: [facility] 12-09-2022 09:50-0400 Systolic blood pressure 122 mm[Hg] Timothy Gallegos MD Work Phone: [facility] 12-04-2022 08:29-0400 Body height 164.5 cm Yuli Brunner MD Work Phone: [facility] 12-04-2022 08:29-0400 Body weight 116.12 kg Yuli Brunner MD Work Phone: [facility] 12-04-2022 08:29-0400 Diastolic blood pressure 78 mm[Hg] Yuli Brunner MD Work Phone: [facility] 12-04-2022 08:29-0400 Systolic blood pressure 130 mm[Hg] Yuli Brunner MD Work Phone: [facility] 12-02-2022 14:50-0400 Body height 162.3 cm Mary Begumhof GIFTED TEACHER.HEARING AID DISPENSER Work Phone: [facility] 12-02-2022 14:50-0400 Body weight 118.39 kg Mary Shyhof GIFTED TEACHER.HEARING AID DISPENSER Work Phone: [facility] 12-02-2022 14:50-0400 Diastolic blood pressure 90 mm[Hg] Mary Shyhof GIFTED TEACHER.HEARING AID DISPENSER Work Phone: [facility] 12-02-2022 14:50-0400 Heart rate 67 /min Mary Tannhof GIFTED TEACHER.HEARING AID DISPENSER Work Phone: [facility] 12-02-2022 14:50-0400 Respiratory rate 16 /min Mary Tannhof GIFTED TEACHER.HEARING AID DISPENSER Work Phone: [facility] 12-02-2022 14:50-0400 SaO2% (BldA) [Mass fraction] 96 % Maryadalberto Begumhof GIFTED TEACHER.HEARING AID DISPENSER Work Phone: [facility] 12-02-2022 14:50-0400 Systolic blood pressure 140 mm[Hg] Mary Tannhof GIFTED TEACHER.HEARING AID DISPENSER Work Phone: [facility] 07-31-2022 09:07-0400 Body weight 112.95 kg Mary Tannhof GIFTED TEACHER.HEARING AID DISPENSER Work Phone: [facility] 07-31-2022 09:07-0400 Diastolic blood pressure 90 mm[Hg] Mary Tannhof GIFTED TEACHER.HEARING AID DISPENSER Work Phone: [facility] 07-31-2022 09:07-0400 Heart rate 70 /min Mary Tannhof GIFTED TEACHER.HEARING AID DISPENSER Work Phone: [facility] 07-31-2022 09:07-0400 Respiratory rate 16 /min Mary Tannhof GIFTED TEACHER.HEARING AID DISPENSER Work Phone: [facility] 07-31-2022 09:07-0400 SaO2% (BldA) [Mass fraction] 97 % Mary Tannhof GIFTED TEACHER.HEARING AID DISPENSER Work Phone: [facility] 07-31-2022 09:07-0400 Systolic blood pressure 140 mm[Hg] Mary Tannhof GIFTED TEACHER.HEARING AID DISPENSER Work Phone: [facility] 07-30-2022 09:59-0400 Body temperature 97.11 [degF] Janki Guzman GIFTED TEACHER.HEARING AID DISPENSER Work Phone: [facility] 07-30-2022 09:59-0400 Body weight 112.4 kg Janki Guzman GIFTED TEACHER.HEARING AID DISPENSER Work Phone: [facility] 07-30-2022 09:59-0400 Diastolic blood pressure 92 mm[Hg] Janki Guzman GIFTED TEACHER.HEARING AID DISPENSER Work Phone: [facility] 07-30-2022 09:59-0400 Heart rate 73 /min Janki Guzman GIFTED TEACHER.HEARING AID DISPENSER Work Phone: [facility] 07-30-2022 09:59-0400 Respiratory rate 18 /min Janki Guzman GIFTED TEACHER.HEARING AID DISPENSER Work Phone: [facility] 07-30-2022 09:59-0400 SaO2% (BldA) [Mass fraction] 99 % Janki Guzman GIFTED TEACHER.HEARING AID DISPENSER Work Phone: [facility] 07-30-2022 09:59-0400 Systolic blood pressure 124 mm[Hg] Janki Guzman ROCKWELLHEARING AID DISPENSER Work Phone: [facility] 06-09-2022 13:49-0500 Body temperature 97.9 [degF] Dr. Susan Sevilla Work Phone: [facility] 06-09-2022 13:49-0500 Diastolic blood pressure 82 mm[Hg] Dr. Susan Sevilla Work Phone: [facility] 06-09-2022 13:49-0500 Heart rate 59 /min Dr. Susan Sevilla Work Phone: [facility] 06-09-2022 13:49-0500 Respiratory rate 14 /min Dr. Susan Sevilla Work Phone: [facility] 06-09-2022 13:49-0500 SaO2% (BldA) [Mass fraction] 98 % Dr. Susan Sevilla Work Phone: [facility] 06-09-2022 13:49-0500 Systolic blood pressure 118 mm[Hg] Dr. Susan Sevilla Work Phone: [facility] 06-09-2022 06:38-0500 Body height 162.[address] Susan Sevilla Work Phone: [facility] 06-09-2022 06:38-0500 Body mass index (BMI) [Ratio] 41.8 kg/m2 Dr. Susan Sevilla Work Phone: [facility] 06-09-2022 06:38-0500 Body weight 110.[address] Susan Sevilla Work Phone: [facility] 05-12-2022 14:32-0500 Body height 162.[address] Susan Sevilla Work Phone: [facility] 05-12-2022 14:32-0500 Body mass index (BMI) [Ratio] 42.7 kg/m2 Dr. Susan Sevilla Work Phone: [facility] 05-12-2022 14:32-0500 Body temperature 98 [degF] Dr. Susan Sevilla Work Phone: [facility] 05-12-2022 14:32-0500 Body weight 113.[address] Susan Sevilla Work Phone: [facility] 05-12-2022 14:32-0500 Diastolic blood pressure 84 mm[Hg] Dr. Susan Sevilla Work Phone: [facility] 05-12-2022 14:32-0500 Heart rate 68 /min Dr. Susan Sevilla Work Phone: [facility] 05-12-2022 14:32-0500 Respiratory rate 17 /min Dr. Susan Sevilla Work Phone: [facility] 05-12-2022 14:32-0500 SaO2% (BldA) [Mass fraction] 98 % Dr. Susan Sevilla Work Phone: [facility] 05-12-2022 14:32-0500 Systolic blood pressure 132 mm[Hg] Dr. Susan Sevilla Work Phone: [facility] 03-18-2022 09:20-0500 Body temperature 96.69 [degF] Gabbie Athy PA-C Work Phone: [facility] 03-18-2022 09:20-0500 Body weight 108.77 kg Gabbie Athy PA-C Work Phone: [facility] 03-18-2022 09:20-0500 Diastolic blood pressure 84 mm[Hg] Gabbie Athy PA-C Work Phone: [facility] 03-18-2022 09:20-0500 Heart rate 72 /min Gabbie Athy PA-C Work Phone: [facility] 03-18-2022 09:20-0500 Respiratory rate 21 /min Gabbie Athy PA-C Work Phone: [facility] 03-18-2022 09:20-0500 SaO2% (BldA) [Mass fraction] 99 % Gabbie FORREST-Eli Work Phone: [facility] 03-18-2022 09:20-0500 Systolic blood pressure 150 mm[Hg] Gabbie FORREST-Eli Work Phone: [facility] 03-11-2022 10:25-0500 Body temperature 98.8 [degF] Janki Guzman GIFTED TEACHER.HEARING AID DISPENSER Work Phone: [facility] 03-11-2022 10:25-0500 Body weight 107.86 kg Janki Guzman GIFTED TEACHER.HEARING AID DISPENSER Work Phone: [facility] 03-11-2022 10:25-0500 Diastolic blood pressure 82 mm[Hg] Janki Guzman GIFTED TEACHER.HEARING AID DISPENSER Work Phone: [facility] 03-11-2022 10:25-0500 Heart rate 103 /min Janki Guzman GIFTED TEACHER.HEARING AID DISPENSER Work Phone: [facility] 03-11-2022 10:25-0500 Respiratory rate 21 /min Janki Guzman GIFTED TEACHER.HEARING AID DISPENSER Work Phone: [facility] 03-11-2022 10:25-0500 SaO2% (BldA) [Mass fraction] 98 % Janki Guzman GIFTED TEACHER.HEARING AID DISPENSER Work Phone: [facility] 03-11-2022 10:25-0500 Systolic blood pressure 138 mm[Hg] Janki Guzman GIFTED TEACHER.HEARING AID DISPENSER Work Phone: [facility] 11-12-2021 22:06-0400 Body height 162.56 cm [facility] Work Phone: 11-12-2021 22:06-0400 Body mass index (BMI) [Ratio] 41.9 kg/m2 [facility] Work Phone: 11-12-2021 22:06-0400 Body temperature 97.3 [degF] [facility] Work Phone: 11-12-2021 22:06-0400 Body weight 110.9 kg [facility] Work Phone: 11-12-2021 22:06-0400 Diastolic blood pressure 62 mm[Hg] [facility] Work Phone: 11-12-2021 22:06-0400 Heart rate 64 /min [facility] Work Phone: 11-12-2021 22:06-0400 Respiratory rate 14 /min [facility] Work Phone: 11-12-2021 22:06-0400 SaO2% (BldA) [Mass fraction] 100 % [facility] Work Phone: 11-12-2021 22:06-0400 Systolic blood pressure 132 mm[Hg] [facility] Work Phone: 09-26-2021 13:47-0400 Body temperature 97.5 [degF] [facility] Work Phone: 09-26-2021 13:47-0400 Diastolic blood pressure 73 mm[Hg] [facility] Work Phone: 09-26-2021 13:47-0400 Heart rate 55 /min [facility] Work Phone: 09-26-2021 13:47-0400 Respiratory rate 16 /min [facility] Work Phone: 09-26-2021 13:47-0400 SaO2% (BldA) [Mass fraction] 98 % [facility] Work Phone: 09-26-2021 13:47-0400 Systolic blood pressure 119 mm[Hg] [facility] Work Phone: 09-26-2021 12:37-0400 Body mass index (BMI) [Ratio] 43.2 kg/m2 [facility] Work Phone: 09-26-2021 12:37-0400 Body weight 114.3 kg [facility] Work Phone: 07-04-2021 08:55-0400 Body temperature 97.6 [degF] [facility] Work Phone: 07-04-2021 08:55-0400 Diastolic blood pressure 66 mm[Hg] [facility] Work Phone: 07-04-2021 08:55-0400 Heart rate 55 /min [facility] Work Phone: 07-04-2021 08:55-0400 Respiratory rate 14 /min [facility] Work Phone: 07-04-2021 08:55-0400 SaO2% (BldA) [Mass fraction] 97 % [facility] Work Phone: 07-04-2021 08:55-0400 Systolic blood pressure 125 mm[Hg] [facility] Work Phone: 07-04-2021 06:53-0400 Body height 162.56 cm [facility] Work Phone: 07-04-2021 06:53-0400 Body mass index (BMI) [Ratio] 43.9 kg/m2 [facility] Work Phone: 07-04-2021 06:53-0400 Body weight 116.2 kg [facility] Work Phone: Encounters Encounter Date Encounter Type Care Provider Facility Start: 11-29-2024 End: 11-29-2024 Office outpatient visit 15 minutes Serenity Lorenzana CNP Work Phone: [facility] [place] Comment on above: Primary hypertension (Primary Dx); BMI 45.0-49.9, adult (HCC); Class 3 severe obesity with serious comorbidity and body mass index (BMI) of 45.0 to 49.9 in adult, unspecified obesity type Start: 11-29-2024 End: [facility] Start: 11-21-2024 End: 11-21-2024 ambulatory SUSAN [facility] Facility:[facility] Start: 11-15-2024 End: 11-15-2024 Telephone encounter Lupe Riddle MD Work Phone: [facility] [place] Comment on above: Appointment (Missed appointment) Start: 10-04-2024 End: 10-04-2024 ambulatory [facility] Start: 10-04-2024 End: 10-04-2024 Office outpatient visit 15 minutes Lupe Riddle MD Work Phone: [facility] [place] Comment on above: Primary hypertension (Primary Dx); BMI 45.0-49.9, adult (HCC); Class 3 severe obesity with serious comorbidity and body mass index (BMI) of 45.0 to 49.9 in adult, unspecified obesity type Start: 09-13-2024 End: 09-13-2024 Office outpatient visit 15 minutes Lupe Riddle MD Work Phone: [facility] [place] Comment on above: Primary hypertension (Primary Dx); BMI 45.0-49.9, adult (HCC); Class 3 severe obesity with serious comorbidity and body mass index (BMI) of 45.0 to 49.9 in adult, unspecified obesity type Start: 09-13-2024 End: 09-13-2024 ambulatory [facility] Start: 09-04-2024 End: 09-04-2024 Office outpatient visit 15 minutes Neal Gomez GIFTED TEACHER.HEARING AID DISPENSER Work Phone: Family Medicine [place] Comment on above: Localized bacterial skin infection (Primary Dx) Start: 09-04-2024 End: 09-04-2024 ambulatory NEAL GOMEZ Facility:[facility] Start: 08-28-2024 End: 08-29-2024 Refill Neal Selwyn GIFTED TEACHER.HEARING AID DISPENSER Work Phone: Family [facility] [place] Comment on above: Refill Request Start: 08-16-2024 End: 08-16-2024 ambulatory [facility] Start: 08-16-2024 End: 08-16-2024 Office outpatient visit 15 minutes Lupe Riddle MD Work Phone[facility] Comment on above: Primary hypertension (Primary Dx); BMI 45.0-49.9, adult (HCC); Class 3 severe obesity with serious comorbidity and body mass index (BMI) of 45.0 to 49.9 in adult, unspecified obesity type Start: 07-14-2024 End: 07-14-2024 Office outpatient visit 25 minutes Lupe Riddle MD Work Phone: [facility] Comment on above: Primary hypertension (Primary Dx); BMI 45.0-49.9, adult (HCC); Class 3 severe obesity with serious comorbidity and body mass index (BMI) of 45.0 to 49.9 in adult, unspecified obesity type (HCC) Start: 07-14-2024 End: 07-14-20[facility] Start: 05-24-2024 End: 05-25-2024 Refill Mary Mcmillan APRN.CNP Work Phone: [facility] [place] Comment on above: Refill Request Start: 05-11-2024 ambulatory Kelley FORREST [facility] Start: 03-14-2024 End: 03-14-2024 Subsequent hospital visit by physician Nohemy [facility] Work Phone: Radiology Comment on above: Acute cough [R05.1] Start: 03-14-2024 End: 03-14-2024 ambulatory SUSAN [facility] Facility:[facility] Start: 03-14-2024 End: 03-14-2024 Office outpatient visit 25 minutes John FORREST Work Phone: [facility] Comment on above: Sore throat (Primary Dx); Acute cough; SOB (shortness of breath) Start: 03-10-2024 End: 03-10-2024 ambulatory NATE WINTERS [facility] Start: 03-10-2024 End: 03-10-2024 Subsequent hospital visit by physician Nate Winters MD Work Phone: [facility] Comment on above: Gastro-esophageal re flux disease without esophagitis Start: 02-21-2024 End: 02-22-2024 ambulatory Mary Vaz GIFTED TEACHER - HEARING AID DISPENSER Work Phone: Weight Management [facility] Newman Comment on above: Refill Request Start: 02-11-2024 End: 02-11-2024 ambulatory [facility] Start: 02-11-2024 End: 02-11-2024 Office outpatient new 45 minutes Lupe Riddle MD Work Phone: [facility] [place] Comment on above: Primary hypertension (Primary Dx); BMI 45.0-49.9, adult (HCC); Class 3 severe obesity with serious comorbidity and body mass index (BMI) of 45.0 to 49.9 in adult, unspecified obesity type (HCC) Start: 01-25-2024 End: 01-26-2024 Refill Mary Mcmillan APRN.HEARING AID DISPENSER Work Phone: Family [facility] Comment on above: Refill Request Start: 01-14-2024 End: 01-14-2024 Documentation procedure Mary Vaz GIFTED TEACHER - HEARING AID DISPENSER Work Phone: [employer] [facility] Newman Comment on above: EGD Start: 01-12-2024 End: 01-17-2024 ambulatory Susan Sevilla MD Work Phone: Internal Medicine [place] [id number] Start: 01-10-2024 End: 01-10-2024 ambulatory Nurse Card Admin [facility] Work Phone: Cardiology Comment on above: Stress Test Instruct ions for 01/17/24 Start: 01-10-2024 End: 01-10-2024 E-mail encounter from caregiver Nurse Card Admin [facility] [employer] Work Phone: Cardiology Start: 01-04-2024 End: 01-04-2024 Telephone encounter Mary Vaz APRN - HEARING AID DISPENSER Work Phone: [employer] [facility] Newman Comment on above: Financial Issues (Fi nancial File 2023); Surgery Scheduling (Initial Scheduling - Orders Pended ) Start: 01-04-2024 End: 01-04-2024 Office outpatient new 45 minutes Nate Winters MD Work Phone: [facility] [place] Comment on above: Primary osteoarthrit is of both knees (Primary Dx); Gastroesophageal reflux disease without esophagitis; Daytime sleepiness; Primary hypertension; Back pain, unspecified back location, unspecified back pain laterality, unspecified chronicity; Morbid obesity with BMI of 45.0-49.9, adult (HCC) Start: 01-04-2024 End: 01-04-2024 ambulatory [facility] Start: 12-23-2023 End: 12-23-2023 ambulatory [facility] Facility:[facility] Start: 12-13-2023 End: 12-13-2023 ambulatory OKSANA KENNEY Facility:[facility] Start: 12-13-2023 End: 12-13-2023 Patient encounter procedure Oksana Kenney PA-C Work Phone: Orthopaedics Comment on above: Primary osteoarthrit is of both knees (Primary Dx); Morbid obesity (HCC); Acute pain of right knee Start: 12-10-2023 End: 12-10-2023 Chart abstracting Alvin HORTON Work Phone: Adult Psychology Comment on above: Behavioral Health/So cial Work Start: 12-08-2023 End: 12-08-2023 ambulatory [facility] Start: 12-03-2023 End: 12-03-2023 E-mail encounter from caregiver Oksana Kenney PA-C Work Phone: Orthopaedics Start: 12-03-2023 End: 12-03-2023 Telephone encounter Alvin HORTON Work Phone: Adult Psychology Comment on above: Behavioral Health/So cial Work Insurance Authorizat ion Start: 12-03-2023 End: 12-03-2023 Patient encounter status Mary Mcmillan APRN.CNP Work Phone: [facility] Work Phone: Start: 12-03-2023 End: 12-03-2023 ambulatory MARY MCMILLAN Facility:[facility] Start: 12-03-2023 Encounter for genera l adult medical examination without abnormal findings MARY MCMILLAN [facility] Start: 12-03-2023 End: 12-03-2023 Patient encounter procedure Mary Mcmillan APRN.CNP Work Phone: [facility] Comment on above: Wellness examination (Primary Dx); BRITTANY (generalized anxiety disorder); Hypertension, essential; Class 3 severe obesity with body mass index (BMI) of 45.0 to 49.9 in adult, unspecified obesity type, unspecified whether serious comorbidity present (HCC); Migraine with aura, not intractable, without status migrainosus; Primary osteoarthritis of both knees; Gastroesophageal reflux disease, unspecified whether esophagitis present; Women's annual routine gynecological examination Appointment Request Start: 11-29-2023 End: 11-30-2023 Emergency department patient visit [facility] Facility:[facility] Start: 10-27-2023 Telephone encounter Mary barkley APRN.CNP Work Phone: [facility] Comment on above: Results (Chest CT) Start: 10-25-2023 End: 10-25-2023 Subsequent hospital visit by physician Ct [facility] (I-Stat) Work Phone: Cat Scan Comment on above: Chronic cough [R05.3 ] Start: 10-21-2023 Telephone encounter Mary barkley APRN.CNP Work Phone: [facility] Comment on above: Results (Lab/Xray ); Orders Start: 10-20-2023 End: 10-20-2023 Patient encounter procedure Mary Mcmillan APRN.CNP Work Phone: [facility] Comment on above: URI, acute (Primary Dx); Acute cough; Loss of voice; SOB (shortness of breath); Post-nasal drip; BPPV (benign paroxysmal positional vertigo), unspecified laterality; Primary osteoarthritis of both knees; Class 3 severe obesity with body mass index (BMI) of 40.0 to 44.9 in adult, unspecified obesity type, unspecified whether serious comorbidity present (HCC) Start: 10-20-2023 End: 10-20-2023 Subsequent hospital visit by physician [facility]r [facility] Work Phone: Radiology Comment on above: Acute cough [R05.1] Start: 10-16-2023 Refill Mary Mcmillan APRN.HEARING AID DISPENSER Work Phone: Family [facility] Comment on above: Refill Request Start: 10-14-2023 Telephone encounter Mary barkley GIFTED TEACHER.HEARING AID DISPENSER Work Phone: [facility] Comment on above: Results (Zio ); Orde rs Start: 10-01-2023 ambulatory [facility] Facility: [facility] Start: 09-28-2023 End: 09-28-2023 Patient encounter procedure John FORREST Work Phone: [facility] Comment on above: Bacterial sinusitis (Primary Dx); Sore throat Start: 09-18-2023 ambulatory Mary Mcmillan GIFTED TEACHER.HEARING AID DISPENSER Work Phone: [facility] [place] Comment on above: Zio monitor Start: 09-15-2023 End: 09-15-2023 Patient encounter procedure Mary Mcmillan GIFTED TEACHER.HEARING AID DISPENSER Work Phone: [facility] Comment on above: BPPV (benign paroxys mal positional vertigo), unspecified laterality (Primary Dx); Dizziness; Bradycardia; Sore throat; Weight gain; Anxiety associated with depression Start: 09-14-2023 Telephone encounter Mary barkley GIFTED TEACHER.HEARING AID DISPENSER Work Phone: [facility] [place] Comment on above: Patient Question Start: 09-09-2023 End: 09-09-2023 ambulatory [facility] Facility:[facility] Start: 09-02-2023 ambulatory Mary Mcmillan GIFTED TEACHER.HEARING AID DISPENSER Work Phone: [facility] [place] Comment on above: Pulse Start: 08-19-2023 End: 08-19-2023 ambulatory [facility] Facility:[facility] Start: 08-11-2023 End: 08-11-2023 Patient encounter procedure Mary Mcmillan GIFTED TEACHER.HEARING AID DISPENSER Work Phone: [facility] Comment on above: Dizziness (Primary D x); Anxiety associated with depression; Ventricular hypertrophy Start: 07-29-2023 Telephone encounter Susan patel MD Work Phone: Family [facility] [place] Comment on above: Prior Authorization Request (Zepbound) Start: 07-29-2023 End: 07-29-2023 ambulatory [facility] Start: 07-28-2023 Telephone encounter Mary barkley APRN.HEARING AID DISPENSER Work Phone: [facility] Comment on above: Results (Labs ) Start: 07-23-2023 End: 07-23-2023 Subsequent hospital visit by physician Nohemy [facility] Work Phone: Radiology Comment on above: SOB (shortness of br eath) [R06.02] Start: 07-23-2023 Refill Oksana Orestest rossy FORREST-C Work Phone: Orthopaedics Comment on above: Refill Request Start: 07-23-2023 End: 07-23-2023 Patient encounter procedure Mary Mcmilaln APRN.CNP Work Phone: [facility] [place] Comment on above: SOB (shortness of br eath) (Primary Dx); Dizziness; Class 3 severe obesity with body mass index (BMI) of 40.0 to 44.9 in adult, unspecified obesity type, unspecified whether serious comorbidity present (HCC); Vitamin D deficiency Start: 07-20-2023 Telephone encounter Susan patel MD Work Phone: [facility] Comment on above: Patient Question Start: 07-08-2023 End: 07-08-2023 ambulatory [facility] Facility[facility] Start: 06-29-[address] [facility] ity:[facility] Start: 06-29-2023 End: 06-29-2023 Subsequent hospital visit by physician Radio General Qing Xiong Work Phone: Radiology Comment on above: Right knee pain, uns pecified chronicity [M25.561] Start: 06-27-2023 Refill Mary Mcmillan APRN.CNP Work Phone: [facility] Comment on above: Refill Request Start: 06-17-2023 End: 06-17-2023 ambulatory Nani Parnell Facility[facility] Start: 06-09-2023 Orders Only Oksana Vetovit z PA-C Work Phone: Orthopaedics Comment on above: Right knee pain, uns pecified chronicity (Primary Dx) Start: 06-06-2023 Refill Oksana Vetovit z PA-C Work Phone: Orthopaedics Comment on above: Refill Request Start: 05-27-2023 Telephone encounter Neal rose APRN.CNP Work Phone: Family Medicine [place] Comment on above: Results Start: 05-27-2023 End: 05-27-2023 ambulatory Susan Sevilla Facility:[facility] Start: 05-17-2023 Telephone encounter Neal rose APRN.NORI Work Phone: Family Medicine [place] Comment on above: Results Start: 05-14-2023 End: 05-14-2023 Subsequent hospital visit by physician Nohemy [facility] Work Phone: Radiology Comment on above: Cervicalgia [M54.2] Start: 05-14-2023 End: 05-14-2023 Office outpatient visit 25 minutes Neal Gomez APRN.HEARING AID DISPENSER Work Phone: Family [facility] Comment on above: Cervicalgia (Primary Dx); Headache, unspecified headache type Start: 05-13-2023 Telephone encounter Susan patel MD Work Phone: Family [facility] Comment on above: Patient Update; Appo intment Start: 03-01-2023 Telephone encounter Susan patel MD Work Phone: Family Medicine [place] Comment on above: Medication Question Start: 02-28-2023 Refill Neal LANDA RN.HEARING AID DISPENSER Work Phone: Family [facility] Comment on above: Refill Request Start: 02-19-2023 End: 02-19-2023 ambulatory Ronak Proctorjill Work Phone: Podiatry Comment on above: Arthritis of midfoot (Primary Dx); Pain in left foot Start: 02-19-2023 End: 02-19-2023 Telemedicine consultation with patient Ronak Pulido Work Phone: [facility] Start: 02-16-2023 Telephone encounter Mary barkley GIFTED TEACHER.HEARING AID DISPENSER Work Phone: [facility] Comment on above: Request Outside [facility] Records Start: 02-06-2023 Orders Only Ronak melchor Work Phone: Podiatry Comment on above: Vitamin D deficiency (Primary Dx) Start: 02-02-2023 ambulatory Ronak melchor Work Phone: Podiatry Comment on above: Vitamin d levels Start: 12-29-2022 Refill Susan solorzano MD Work Phone: [facility] [place] Comment on above: Refill Request Start: 12-25-2022 ambulatory Mary Mcmillan GIFTED TEACHER.HEARING AID DISPENSER Work Phone: [facility] Start: 12-25-2022 Nutrition therapy Mary Cazares of GIFTED TEACHER.HEARING AID DISPENSER Work Phone: [facility] Comment on above: Transition Program Manager Start: 12-25-2022 End: 12-25-2022 Subsequent hospital visit by physician Xr [facility] Work Phone: Radiology Comment on above: Bronchitis [J40] Start: 12-21-2022 End: 12-21-[address] Nutrition Therapy Comment on above: Patient Education; A ssessment Start: 12-09-2022 End: 12-09-2022 Patient encounter procedure Timothy Gallegos MD Work Phone: [facility] Comment on above: URI, acute (Primary Dx); Exposure to confirmed case of COVID-19 Start: 12-08-2022 Documentation procedure Mammography Coordinator [facility] Start: 12-08-2022 Letter encounter Mammography Coordin ator [facility] Department Start: 12-08-2022 End: 12-08-2022 Subsequent hospital visit by physician Screen Mammo [facility] Mammogram Comment on above: Encounter for screen ing mammogram for breast cancer [Z12.31] Start: 12-04-2022 End: 12-04-2022 Patient encounter procedure Yuli Brunner MD Work Phone: OB/Gynecology Comment on above: Encounter for gyneco logical examination (general) (routine) without abnormal findings (Primary Dx); Women's annual routine gynecological examination; Screen for STD (sexually transmitted disease); Encounter for screening mammogram for breast cancer Start: 12-04-2022 End: 12-04-2022 Patient encounter status Yuli Brunner MD Work Phone: [facility] Start: 12-02-2022 End: 12-02-2022 Patient encounter procedure Mary Mcmillan APRN.HEARING AID DISPENSER Work Phone: Family Medicine [place] Comment on above: Wellness examination (Primary Dx); Gastroesophageal reflux disease, unspecified whether esophagitis present; Anxiety associated with depression; Hypertension, essential; Migraine with aura, not intractable, without status migrainosus; Weight gain; Muscle strain; Women's annual routine gynecological examination Start: 12-02-2022 End: 12-02-2022 Patient encounter status Mary Mcmillan APRN.HEARING AID DISPENSER Work Phone: [facility] Work Phone: Start: 11-30-2022 Refill Mary Mcmillan APRN.CNP Work Phone: Family [facility] Comment on above: Refill Request Start: 11-09-2022 Orders Only Ronak melchor Work Phone: Podiatry Comment on above: Vitamin D deficiency (Primary Dx) Start: 11-05-2022 Orders Only Ronak melchor Work Phone: Podiatry Comment on above: Vitamin D deficiency (Primary Dx) vitamin d Start: 11-04-2022 End: 11-04-2022 Subsequent hospital visit by physician Nohemy [facility] Xiong Work Phone: Radiology Comment on above: Arthritis of midfoot [M19.079] Start: 10-19-2022 End: 10-19-2022 Subsequent hospital visit by physician Albina [facility] (I-Stat) Work Phone: Cat Scan Comment on above: Arthritis of midfoot [M19.079] Start: 10-19-2022 End: 10-19-2022 Patient encounter procedure Ray Frazier MD Work Phone: Orthopaedics Comment on above: Trochanteric bursiti s of left hip (Primary Dx) Start: 10-19-2022 End: 10-19-2022 Subsequent hospital visit by physician Xr [facility] [place] Work Phone: Radiology Comment on above: Pain in left hip [M2 5.552] Start: 10-16-2022 Orders Only Ray Frazier MD Work Phone: Orthopaedics Comment on above: Right knee pain, uns pecified chronicity (Primary Dx); Pain in left hip Start: 10-08-2022 Telephone encounter Ronak Perez hardy Work Phone: Podiatry Comment on above: Orders Start: 10-05-2022 ambulatory Ronak melchor Work Phone: Podiatry Comment on above: Left foot pain Start: 09-14-2022 End: 09-14-2022 Subsequent hospital visit by physician Xr [facility] [facility] Work Phone: Radiology Comment on above: Contusion of lesser toe of left foot without damage to nail, initial encounter [S90.122A] Start: 08-14-2022 Telephone encounter Ronak Perez hardy Work Phone: Podiatry Comment on above: Appointment (Needs s ooner appointment) Start: 07-31-2022 End: 07-31-2022 Patient encounter procedure Mary Mcmillan APRN.HEARING AID DISPENSER Work Phone: Family Medicine [place] Comment on above: Acute constipation ( Primary Dx); Generalized abdominal pain; Migraine with aura, not intractable, without status migrainosus Start: 07-30-2022 End: 07-30-2022 Patient encounter procedure Janki Hinds APRN.HEARING AID DISPENSER Work Phone: [facility] Comment on above: Diarrhea, unspecifie d type (Primary Dx); Abdominal pain, generalized Start: 06-09-2022 End: 06-09-2022 Admission to same day surgery center Dr. Susan Sevilla Work Phone: [facility] Start: 06-09-2022 End: 06-09-[address] Susan Sevilla Work Phone: [facility] Work Phone: Start: 06-08-2022 Non-patient / Non-visit Dr. Pretty Sevilla Work Phone: [facility] Start: 05-15-2022 End: 05-15-[address] Susan Sevilla Work Phone: [facility] Start: 05-12-2022 End: 05-12-[address] Susan Sevilla Work Phone: [facility] Start: 05-06-2022 End: 05-06-[address] Susan Sevilla Work Phone: [facility] Work Phone: Start: 05-06-2022 End: 05-06-[address] Susan Sevilla Work Phone: [facility] Start: 03-23-2022 Telephone encounter Susan patel MD Work Phone: [facility] Comment on above: Patient Question Start: 03-18-2022 End: 03-18-2022 Patient encounter procedure Gabbie Horvath PA-C Work Phone: [facility] Comment on above: Strep pharyngitis (P rimary Dx); Bronchitis Start: 03-11-2022 End: 03-11-2022 Patient encounter procedure Janki Hinds APRN.HEARING AID DISPENSER Work Phone: [facility] Comment on above: Exposure to COVID-19 virus (Primary Dx); URI with cough and congestion Start: 12-22-2021 Refill Susan solorzano MD Work Phone: [facility] Comment on above: Refill Request Start: 12-11-2021 Orders Only Ronak Jain jill Work Phone: Podiatry Comment on above: Contusion of lesser toe of left foot without damage to nail, initial encounter (Primary Dx) Start: 12-10-2021 End: 12-10-2021 Subsequent hospital visit by physician Nohe[facility] Work Phone: Radiology Comment on above: Contusion of lesser toe of left foot without damage to nail, initial encounter [S90.122A] Start: 11-12-2021 End: 11-13-2021 Emergency department patient visit [facility] Start: 10-04-2021 ambulatory Mary Mcmillan APRN.HEARING AID DISPENSER Work Phone: [facility] Comment on above: Dosage Start: 10-01-2021 ambulatory Susan solorzano MD Work Phone: [facility] [place] Start: 09-26-2021 End: 09-26-2021 Admission to same day surgery center [facility] Start: 09-25-2021 ambulatory Mary Mcmillan GIFTED TEACHER.HEARING AID DISPENSER Work Phone: [facility] Comment on above: Cream for heat rash Start: 09-18-2021 Telephone encounter Mary barkley GIFTED TEACHER.HEARING AID DISPENSER Work Phone: [facility] Comment on above: Results Start: 08-09-2021 End: 08-09-2021 Patient encounter procedure [facility] Start: 07-04-2021 End: 07-04-2021 [facility] Procedures Date Procedure Procedure Detail Performing Clinician Start: 03-14-2024 Radiologic exam ches t 2 views John FORREST Work Phone: Start: 03-14-2024 STREP A MOLECULAR (POC) John FORREST Work Phone: Start: 12-13-2023 Arthrocentesis aspir &/inj major jt/bursa w/o us Oksana Vetovitz PA-C Work Phone: Start: 10-25-2023 Ct thorax w/contrast material Mary Mcmillan APRN.HEARING AID DISPENSER Work Phone: Start: 10-20-2023 Radiologic exam ches t 2 views Mary Mcmillan APRN.HEARING AID DISPENSER Work Phone: Start: 09-28-2023 STREP A MOLECULAR (POC) John FORREST Work Phone: Start: 09-15-2023 STREP A MOLECULAR (POC) Mary Mcmillan GIFTED TEACHER.HEARING AID DISPENSER Work Phone: Start: 07-23-2023 Radiologic exam ches t 2 views Mary Mcmillan APRN.HEARING AID DISPENSER Work Phone: Start: 07-23-2023 Ecg routine ecg w/le ast 12 lds i&r only [facility] Provider Start: 06-29-2023 Radiologic exam knee complete 4/more views Oksana Kenney PA-C Work Phone: Start: 05-14-2023 Radex spine cervical 4 or 5 views Neal Gomez GIFTED TEACHER.[facility] Work Phone: Start: 12-25-2022 Radiologic exam ches t 2 views Gabbie R Alexandru PA-C Work Phone: Start: 12-08-2022 End: 12-08-2022 Mammography Yuli hauser MD Work Phone: Start: 11-04-2022 Radex foot complete minimum 3 views Ronak Pulido Work Phone: Start: 10-19-2022 Ct lower extremity w /o contrast material Ronak Pulido Work Phone: Start: 10-19-2022 Radex hip unilateral with pelvis 2-3 views Ray Frazier MD Work Phone: Start: 09-14-2022 Radex foot complete minimum 3 views Ronak Pulido Work Phone: Start: 06-09-2022 Excision, Lesion,Ski n w/ Skin Flap (Not Applicable) Dr. Susan Sevilla Work Phone: Start: 03-18-2022 PABLO Hernandez MOLECULAR (POC) Jana Robertson GIFTED TEACHER.HEARING AID DISPENSER Work Phone: Start: 12-10-2021 Radex foot complete minimum 3 views Ronak Pulido Work Phone: Start: 11-12-2021 X-ray of both feet Start: 09-26-2021 Injection of spinal epidural space Start: 09-26-2021 Radiography of spine Start: 09-17-2021 Lipid 1996 panel - S livan or Plasma Racquel Johnson RD Start: 08-09-2021 MRI of lumbar spine Start: 07-04-2021 Injection of facet joint Start: 07-04-2021 Injection of spinal epidural space Start: 07-04-2021 Local anesthetic lum bar facet joint nerve block Start: 07-04-2021 X-ray of lumbosacral spine Start: 05-09-2019 Colonoscopy Xr Mob Work Phone: Start: 02-12-2016 Mammography Mary Sampson nhof GIFTED TEACHER.HEARING AID DISPENSER Work Phone: Plan of Treatment Date Care Activity Detail Author Start: 2049 RSV Immunization for Adults (1 - 1-dose 75+ series) RSV Immunization for Adults (1 - 1-dose 75+ series) Start: 2034 RSV Immunization aged 60 or older (1 - 1-dose 60+ series) RSV Immunization aged 60 or older (1 - 1-dose 60+ series) Start: 05-09-2029 Colonoscopy COLONOSCOPY [facility] Start: 05-09-2029 COLORECTAL CANCER SCREENING COLORECTAL CANCER SCREENING [facility] Start: 05-09-2029 Screening for malignant neoplasm of colon [facility] Start: 10-19-2026 Diabetes Screening Diabetes Screening [facility] Start: 09-17-2026 Lipid 1996 panel - Serum or Plasma Lipid Screening [facility] Start: 09-17-2026 Lipid panel [facility] Start: 09-17-2026 LIPID SCREEN LIPID SCREEN [facility] Start: 07-22-2026 Diabetes Screening Diabetes Screening [facility] Start: 11-21-2025 Diabetes mellitus screening Diabetes Screening Start: 09-04-2025 Annual PCP Team Chronic Disease Visit Annual PCP Team Chronic Disease Visit [facility] Start: 07-30-2025 DIABETES SCREEN DIABETES SCREEN [facility] Start: 07-30-2025 Diabetes Screening Diabetes Screening [facility] Start: 03-14-2025 BP Controlled (<130/80) BP Controlled (<130/80) [facility] Start: 12-13-2024 End: 12-13-2024 Patient encounter procedure 12/13/2024 2:20 PM EDT Office Visit Weight Management - [place] [address] [place] [phone] Lupe Riddle MD [address] [place], [place] [id number] [facility] - [place] Start: 12-04-2024 Influenza vaccination Start: 12-02-2024 Annual PCP Team Chronic Disease Visit Annual PCP Team Chronic Disease Visit [facility] Start: 12-02-2024 Covid-19 Vaccine ( season) Covid-19 Vaccine ( season) [facility] Comment on above: Postponed from 12/04/2022 (Declined at t his time) Start: 11-29-2024 End: 11-29-2024 Patient encounter procedure 11/29/2024 1:50 PM EDT Office Visit [place] [address] [place] [address] Lupe Riddle MD [address] [place], [place] [id number] [facility] - [place] Start: 11-15-2024 End: 11-15-2024 Patient encounter procedure 11/15/2024 1:50 PM EDT Office Visit Weight Management [place] [phone] Lupe Riddle MD [address] [place], [place] [id number] [facility] - [place] Start: 10-19-2024 Annual PCP Team Chronic Disease Visit Annual PCP Team Chronic Disease Visit [facility] Start: 10-04-2024 End: 10-04-2024 Patient encounter procedure 10/04/2024 2:20 PM EDT Office Visit Weight Management - [place] [place] [address] Lupe Riddle MD [address] [place] [address] [facility] - [place] Start: 09-17-2024 DIABETES SCREEN DIABETES SCREEN [facility] Start: 09-14-2024 Annual PCP Team Chronic Disease Visit Annual PCP Team Chronic Disease Visit [facility] Start: 09-13-2024 End: 09-13-2024 Patient encounter procedure 09/13/2024 2:20 PM EDT Office Visit Weight Management - [place] [address] [place] [phone] Lupe Riddle MD [address] [facility] [address] [place], [place] [id number] Weight Management - [place] Start: 08-11-2024 End: 08-11-2024 Patient encounter procedure 08/11/2024 2:20 PM EDT Office Visit Weight Management - [place] [facility] [place] [phone] Lupe Riddle MD [address] [place], [place] [phone] [facility] - [place] Start: 08-10-2024 Annual PCP Team Chronic Disease Visit Annual PCP Team Chronic Disease Visit [facility] Start: 08-08-2024 DTaP/Tdap/Td Vaccines (3 - Td or Tdap) DTaP/Tdap/Td Vaccines (3 - Td or Tdap) Start: 08-08-2024 Urine microalbumin profile [facility] Start: 07-22-2024 Annual PCP Team Chronic Disease Visit Annual PCP Team Chronic Disease Visit [facility] Start: 07-22-2024 Diabetes mellitus screening Diabetes Screening Start: 07-14-2024 End: 07-14-2024 Patient encounter procedure 07/14/2024 1:30 PM EDT Office Visit Weight Management - [address] [place] [phone] Lupe Riddle MD [address] [place], [place] [phone] Weight Management [facility] Start: 06-08-2024 End: 06-08-2024 Patient encounter procedure [facility] Start: 06-06-2024 End: 06-06-2024 Clinical Support 06/06/2024 2:30 PM EST Clinical Support Weight Management [facility] [address] [place] [address] [place] [phone] Nate Winters MD [address] [facility] [address] [place], [place] [phone] Petrona Perez RD [address] [facility] [address] [place] [address] Weight Management [facility] Start: 05-23-2024 End: 05-23-2024 Patient encounter procedure Weight Manag [facility] Start: 05-14-2024 Annual PCP Team Chronic Disease Visit Annual PCP Team Chronic Disease Visit [facility] Start: 03-27-2024 End: 03-27-2024 Nursing evaluation of patient and report 03/27/2024 3:40 PM EST Nurse Visit Cardiology [address] [place] [phone] Wstr, Nurse Card Admin [facility] [address] [place] [address] Dizziness [R42] Cardiology Comment on above: Dizziness [R42] Start: 03-27-2024 End: 03-27-2024 Patient encounter procedure 03/27/2024 2:00 PM EST Office Visit Cardiology [address] [phone] aKpil Li MD [address], [address] [place] [address] Dizziness [R42] Cardiology Comment on above: Dizziness [R42] Start: 03-24-2024 End: 03-24-2024 Patient encounter procedure 03/24/2024 2:00 PM EST Office Visit [facility] - [place] [address] [place] [address] Lupe Riddle MD [address] [place], [place] [phone] [facility] - [place] Start: 03-10-2024 End: 03-10-2024 Admission to same day surgery center 03/10/2024 10:20 AM EST - 03/10/2024 10:40 AM EST [facility] [address] [place] [address] Nate Winters MD [address] [facility] [address] [place] [address] ESOPHAGOGASTRODUODENOSCOPY WITH BIOPSY [88851 (CPT )] [facility] Comment on above: ESOPHAGOGASTRODUODENOSCOPY WITH BIOPSY [ 98561 (CPT )] Start: 03-10-2024 Subsequent hospital visit by physician 03/10/2024 10:20 AM EST Hospital Encounter [facility] [address] [place] [address] Nate Winters MD [address] [facility] [address] [place] [address] [facility] Start: 03-10-2024 End: 03-10-2024 Egd transoral biopsy single/multiple [facility] Start: 02-28-2024 End: 02-28-2024 Clinical Support [facility] [place] Start: 02-11-2024 End: 02-11-2024 Patient encounter procedure 02/11/2024 2:30 PM EST Office Visit [facility] - [place] [address] [place] [phone] Lupe Riddle MD [address] [place] [address] Weight Management - [place] Start: 01-28-2024 End: 01-13-2025 Nicotine, Blood Nicotine, Blood Lab Routine Primary osteoarthritis of both knees Gastroesophageal reflux disease without esophagitis Daytime sleepiness Primary hypertension Morbid obesity with BMI of 45.0-49.9, adult (HCC) Expected: 01/28/2024 (Approximate), Expires: 01/13/2025 Comment on above: Expected: 01/28/2024 (Approximate), Expi res: 01/13/2025 Start: 01-25-2024 Pneumococcal Vaccine: 50+ (1 of 1 - PCV) Pneumococcal Vaccine: 50+ (1 of 1 - PCV) [facility] Start: 01-25-2024 Pneumococcal Vaccine: 50+ Years (1 of 1 - PCV) Pneumococcal Vaccine: 50+ Years (1 of 1 - PCV) Start: 01-25-2024 Shingrix Vaccine (1 of 2) Shingrix Vaccine (1 of 2) [facility] Start: 01-25-2024 Zoster Vaccines (1 of 2) Zoster Vaccines (1 of 2) [facility] Start: 01-17-2024 End: 01-17-2024 Nursing evaluation of patient and report 01/17/2024 3:40 PM EDT Nurse Visit Cardiology [address] [place] [address] Wstr, Nurse Card Admin [facility] [address] [place] [phone] Dizziness [R42] Cardiology Comment on above: Dizziness [R42] Start: 01-14-2024 End: 01-13-2025 25-hydroxyvitamin D3 [Mass/volume] in Serum or Plasma Vitamin D Deficiency Screening (Vit D 25) Lab Routine Primary osteoarthritis of both knees Gastroesophageal reflux disease without esophagitis Daytime sleepiness Primary hypertension Morbid obesity with BMI of 45.0-49.9, adult (HCC) Expected: 01/14/2024, Expires: 01/13/2025 [employer] Comment on above: Expected: 01/14/2024, Expires: Start: 01-14-2024 End: 01-13-2025 CBC panel - Blood by Automated count CBC Lab Routine Primary osteoarthritis of both knees Gastroesophageal reflux disease without esophagitis Daytime sleepiness Primary hypertension Morbid obesity with BMI of 45.0-49.9, adult ([facility]) Expected: 01/14/2024, Expires: 01/13/2025 [employer] Comment on above: Expected: 01/14/2024, Expires: Start: 01-14-2024 End: 01-13-2025 Cobalamin (Vitamin B12) [Mass/volume] in Serum or Plasma Vitamin B12 Lab Routine Primary osteoarthritis of both knees Gastroesophageal reflux disease without esophagitis Daytime sleepiness Primary hypertension Morbid obesity with BMI of 45.0-49.9, adult ([facility]) Expected: 01/14/2024, Expires: 01/13/2025 [employer] Comment on above: Expected: 01/14/2024, Expires: Start: 01-14-2024 End: 01-13-2025 Comprehensive metabolic 1998 panel - Serum or Plasma Comprehensive metabolic panel Lab Routine Primary osteoarthritis of both knees Gastroesophageal reflux disease without esophagitis Daytime sleepiness Primary hypertension Morbid obesity with BMI of 45.0-49.9, adult (HCC) Expected: 01/14/2024, Expires: 01/13/2025 [employer] Comment on above: Expected: 01/14/2024, Expires: Start: 01-14-2024 End: 01-13-2025 Ferritin [Mass/volume] in Serum or Plasma Ferritin Lab Routine Primary osteoarthritis of both knees Gastroesophageal reflux disease without esophagitis Daytime sleepiness Primary hypertension Morbid obesity with BMI of 45.0-49.9, adult (HCC) Expected: 01/14/2024, Expires: 01/13/2025 [facility] [employer] Comment on above: Expected: 01/14/2024, Expires: Start: 01-14-2024 End: 01-13-2025 Folate [Mass/volume] in Serum or Plasma Folate Lab Routine Primary osteoarthritis of both knees Gastroesophageal reflux disease without esophagitis Daytime sleepiness Primary hypertension Morbid obesity with BMI of 45.0-49.9, adult (HCC) Expected: 01/14/2024, Expires: 01/13/2025 [facility] Comment on above: Expected: 01/14/2024, Expires: Start: 01-14-2024 End: 01-13-2025 Hemoglobin A1c measurement Hemoglobin A1c Lab Routine Primary osteoarthritis of both knees Gastroesophageal reflux disease without esophagitis Daytime sleepiness Primary hypertension Morbid obesity with BMI of 45.0-49.9, adult (HCC) Expected: 01/14/2024, Expires: 01/13/2025 [facility] Work Phone: Comment on above: Expected: 01/14/2024, Expires: Start: 01-14-2024 End: 01-13-2025 Iron and Iron binding capacity panel - Serum or Plasma Iron Lab Routine Primary osteoarthritis of both knees Gastroesophageal reflux disease without esophagitis Daytime sleepiness Primary hypertension Morbid obesity with BMI of 45.0-49.9, adult (HCC) Expected: 01/14/2024, Expires: 01/13/2025 [facility] Comment on above: Expected: 01/14/2024, Expires: Start: 01-14-2024 End: 01-13-2025 Lipid 1996 panel - Serum or Plasma Lipid panel Lab Routine Primary osteoarthritis of both knees Gastroesophageal reflux disease without esophagitis Daytime sleepiness Primary hypertension Morbid obesity with BMI of 45.0-49.9, adult (HCC) Expected: 01/14/2024, Expires: 01/13/2025 [facility] Comment on above: Expected: 01/14/2024, Expires: Start: 01-14-2024 End: 01-13-2025 Magnesium [Mass/volume] in Serum or Plasma Magnesium Lab Routine Primary osteoarthritis of both knees Gastroesophageal reflux disease without esophagitis Daytime sleepiness Primary hypertension Morbid obesity with BMI of 45.0-49.9, adult (HCC) Expected: 01/14/2024, Expires: 01/13/2025 [employer] Comment on above: Expected: 01/14/2024, Expires: Start: 01-14-2024 End: 01-13-2025 Thyrotropin [Units/volume] in Serum or Plasma TSH Lab Routine Primary osteoarthritis of both knees Gastroesophageal reflux disease without esophagitis Daytime sleepiness Primary hypertension Morbid obesity with BMI of 45.0-49.9, adult (HCC) Expected: 01/14/2024, Expires: 01/13/2025 [employer] Comment on above: Expected: 01/14/2024, Expires: Start: 01-14-2024 End: 01-13-2025 Vitamin B1, whole blood ([facility]) Vitamin B1, whole blood ([facility]) Lab Routine Primary osteoarthritis of both knees Gastroesophageal reflux disease without esophagitis Daytime sleepiness Primary hypertension Morbid obesity with BMI of 45.0-49.9, adult (HCC) Expected: 01/14/2024, Expires: 01/13/2025 [employer] Comment on above: Expected: 01/14/2024, Expires: Start: 01-14-2024 End: 01-13-2025 Zinc (Sendout) Zinc (Sendout) Lab Routine Primary osteoarthritis of both knees Gastroesophageal reflux disease without esophagitis Daytime sleepiness Primary hypertension Morbid obesity with BMI of 45.0-49.9, adult (HCC) Expected: 01/14/2024, Expires: 01/13/2025 [employer] Comment on above: Expected: 01/14/2024, Expires: Start: 01-08-2024 Annual PCP Team Chronic Disease Visit Annual PCP Team Chronic Disease Visit [facility] Start: 01-06-2024 End: 01-06-2024 Patient encounter procedure 01/06/2024 9:40 AM EDT Office Visit [facility] [place] [address] [place], [place] [address] Mary Mcmillan APRN.HEARING AID DISPENSER [address] [place], [place] [phone] 1 month BP med check [facility] Comment on above: 1 month BP med check Start: 12-13-2023 End: 12-13-2023 Patient encounter procedure 12/13/2023 1:30 PM EDT Office Visit Orthopaedics [address] [place] [address] Oksana Kenney PA-C [address] [place] [address] Right knee pain. In the er on 11/28/23 Orthopaedics Comment on above: Right knee pain. In the er on 11/28/23 Start: 12-10-2023 BP CONTROLLED (<130/80) BP CONTROLLED (<130/80) [facility] in Start: 12-09-2023 Mammography [facility] Start: 12-09-2023 Screening for malignant neoplasm of breast [facility] Start: 12-09-2023 End: 12-09-2023 Patient encounter procedure OB/Gynecolog y Comment on above: Encounter for screening mammogram for br east cancer [Z12.31] Encounter for screen ing mammogram for breast cancer [Z12.31]- time slot ok per [employer] reschedule email Start: 12-05-2023 Covid-19 Vaccine ( season) Covid-19 Vaccine ( season) [facility] Start: 12-05-2023 Covid-19 Vaccine ( season) Covid-19 Vaccine ( season) [facility] Start: 12-05-2023 Influenza vaccination [facility] Start: 12-03-2023 ANNUAL PCP TEAM CHRONIC DISEASE VISIT ANNUAL PCP TEAM CHRONIC DISEASE VISIT [facility] Start: 12-03-2023 COVID-19 VACCINE (#1) COVID-19 VACCINE (#1) [facility] Comment on above: Postponed from 1974 (Declined at t his time) Start: 12-03-2023 HEPATITIS B (1 of 3 - 3-dose series) HEPATITIS B (1 of 3 - 3-dose series) [facility] Comment on above: Postponed from 1974 (Declined at t his time) Start: 12-03-2023 Hepatitis B Vaccine (1 of 3 - 19+ 3-dose series) Hepatitis B Vaccine (1 of 3 - 19+ 3-dose series) [facility] Comment on above: Postponed from 1993 (Declined at t his time) Start: 12-03-2023 Hepatitis B Vaccine (1 of 3 - 3-dose series) Hepatitis B Vaccine (1 of 3 - 3-dose series) [facility] Comment on above: Postponed from 1974 (Declined at t his time) Start: 12-03-2023 End: 12-03-2023 Patient encounter procedure 12/03/2023 1:00 PM EDT Office Visit [facility] [address] [facility] [place], [place] [address] Mary Mcmillan APRN.HEARING AID DISPENSER [address] [place] [address] wellness exam [facility] Comment on above: wellness exam Start: 11-08-2023 End: 11-08-2023 Nursing evaluation of patient and report 11/08/2023 3:40 PM EDT Nurse Visit Cardiology [address] [place] [phone] Wstr, Nurse Card Admin [facility] [address] [place] [address] Dizziness [R42] Cardiology Comment on above: Dizziness [R42] Start: 10-25-2023 End: 10-25-2023 Patient encounter procedure 10/25/2023 2:00 PM EDT Appointment Cat Scan [address] [place] [phone] Chronic cough [R05.3] Cat Scan Comment on above: Chronic cough [R05.3] Start: 10-20-2023 End: 01-19-2024 Comprehensive metabolic 2000 panel - Serum or Plasma [facility] Comment on above: Expected: 10/20/2023, Expires: Start: 10-20-2023 End: 01-19-2024 Natriuretic peptide.B prohormone N-Terminal [Mass/volume] in Serum or Plasma [facility] Work Phone: Comment on above: Expected: 10/20/2023, Expires: Start: 10-20-2023 End: 10-20-2023 Patient encounter procedure 10/20/2023 1:00 PM EDT Office Visit [facility] [place] [address] [place] [address] Mary Mcmillan APRN.HEARING AID DISPENSER [address] [place] [address] 1 month follow up for meds and zio [facility] [place] Comment on above: 1 month follow up for meds and zio Start: 09-13-2023 End: 09-13-2023 Patient encounter procedure 09/13/2023 3:00 PM EDT Office Visit Family [facility] [place] [address] [place] [address] Mary Mcmillan APRN.HEARING AID DISPENSER [address] [place] [address] 4 wk follow up Family [facility] [place] Comment on above: 4 wk follow up Start: 08-13-2023 End: 08-13-2023 Patient encounter procedure 08/13/2023 10:00 AM EDT Office Visit Orthopaedics [address] [place] [address] Oksana Kenney PA-C [address] [place] [address] Knee injections (cortisone) Orthopaedics Comment on above: Knee injections (cortisone) Start: 08-09-2023 End: 08-09-2023 Patient encounter procedure 08/09/2023 1:50 PM EDT Office Visit Cardiology [address] [place] [address] SOB (shortness of breath) [R06.02] Cardiology Comment on above: SOB (shortness of breath) [R06.02] Start: 08-01-2023 ANNUAL PCP TEAM CHRONIC DISEASE VISIT ANNUAL PCP TEAM CHRONIC DISEASE VISIT [facility] Start: 07-23-2023 End: 10-22-2023 25-hydroxyvitamin D3 [Mass/volume] in Serum or Plasma [facility] Work Phone: Comment on above: Expected: 07/23/2023, Expires: 4 Start: 02-06-2023 End: 05-08-2023 25-hydroxyvitamin D3 [Mass/volume] in Serum or Plasma VITAMIN D 25 HYDROXY Lab Routine Vitamin D deficiency Expected: 02/06/2023, Expires: 05/08/2023 [facility] Work Phone: Comment on above: Expected: 02/06/2023, Expires: 4 Start: 12-04-2022 Covid-19 Vaccine () Covid-19 Vaccine () [facility] Start: 12-04-2022 Influenza vaccination [facility] Start: 11-09-2022 End: 01-09-2023 25-hydroxyvitamin D3 [Mass/volume] in Serum or Plasma VITAMIN D 25 HYDROXY Lab Routine Vitamin D deficiency Expected: 11/09/2022, Expires: 01/09/2023 [facility] Work Phone: Comment on above: Expected: 11/09/2022, Expires: 3 Start: 11-05-2022 End: 01-05-2023 25-hydroxyvitamin D3 [Mass/volume] in Serum or Plasma VITAMIN D 25 HYDROXY Lab Routine Vitamin D deficiency Expected: 11/05/2022, Expires: 01/05/2023 [facility] Work Phone: Comment on above: Expected: 11/05/2022, Expires: 3 Start: 09-17-2022 ANNUAL PCP TEAM CHRONIC DISEASE VISIT ANNUAL PCP TEAM CHRONIC DISEASE VISIT [facility] Start: 09-17-2022 BP CONTROLLED (<130/80) BP CONTROLLED (<130/80) [facility] Start: 09-17-2022 COVID-19 VACCINE (#1) COVID-19 VACCINE (#1) [facility] Comment on above: Postponed from 1979 (Declined at t his time) Postponed from 07/25 (Declined at this time) Start: 07-30-2022 End: 09-29-2022 Amylase [Enzymatic activity/volume] in Serum or Plasma [facility] Work Phone: Comment on above: Expected: 07/30/2022, Expires: 3 Start: 07-30-2022 End: 09-29-2022 Comprehensive metabolic 2000 panel - Serum or Plasma [facility] Work Phone: Comment on above: Expected: 07/30/2022, Expires: 3 Start: 06-09-2022 Patient discharge [facility] Start: 05-06-2022 Procedure [facility] Start: 03-11-2022 End: 03-25-2022 Influenza virus A and B RNA and SARS-CoV-2 (COVID-19) N gene panel - Respiratory specimen by JACEK with probe detection [facility] Work Phone: Comment on above: Expected: 03/11/2022, Expires: 2 Start: 12-04-2021 Influenza vaccination [facility] Start: 09-26-2021 Njx anes&/strd w/img tfrml edrl lmbr/sac 1 lvl NJX AA&/STRD TFRM EPI L/S 1 [facility] Work Phone: Start: 09-26-2021 Njx anes&/strd w/img tfrml edrl lmbr/sac ea lv NJX AA&/STRD TFRM EPI L/S EA [facility] Work Phone: Start: 09-26-2021 Patient discharge [facility] Work Phone: Start: 07-04-2021 Njx dx/ther agt pvrt facet jt lmbr/sac 1 level INJ PARAVERT F JNT L/S 1 [facility] Work Phone: Start: 07-04-2021 Njx dx/ther agt pvrt facet jt lmbr/sac 2nd level INJ PARAVERT F JNT L/S 2 [facility] Work Phone: Start: 07-04-2021 Injection of facet joint OR-Steroid Inj/Lum Sac/3rd L [facility] Work Phone: Start: 07-04-2021 Injection of spinal epidural space [facility] Work Phone: Start: 07-04-2021 X-ray of lumbosacral spine L/S Spine Min 4 Views [facility] Work Phone: Start: 2019 COLOGUARD (FIT-DNA) COLOGUARD (FIT-DNA) [facility] Start: 2019 Colonoscopy COLONOSCOPY [facility] Start: 2019 COLORECTAL CANCER SCREENING COLORECTAL CANCER SCREENING [facility] Start: [address] COLONOGRAPHY [facility] Start: 2019 FECAL OCCULT BLOOD FECAL OCCULT BLOOD [facility] Start: 2019 Screening for malignant neoplasm of colon [facility] Start: 2019 SIGMOIDOSCOPY SIGMOIDOSCOPY [facility] Start: 02-11-2017 Mammography MAMMOGRAM [facility] Start: 2014 Screening for malignant neoplasm of breast Mammogram Start: 01-25-2004 Screening for malignant neoplasm of cervix Start: 1995 Screening for malignant neoplasm of cervix Pap Smear Start: 1993 Hepatitis B Vaccine (1 of 3 - 19+ 3-dose series) Hepatitis B Vaccine (1 of 3 - 19+ 3-dose series) [facility] Start: 1993 Hepatitis B Vaccines (1 of 3 - 19+ 3-dose series) Hepatitis B Vaccines (1 of 3 - 19+ 3-dose series) Start: 01-25-1992 Hepatitis C screening Hepatitis C Screening Start: 1986 Depression Monitoring Depression Monitoring Start: 1975 MMR Vaccines (1 of 1 - Standard series) MMR Vaccines (1 of 1 - Standard series) Start: 1974 COVID-19 VACCINE (#1) COVID-19 VACCINE (#1) [facility] Start: 1974 HEPATITIS B (1 of 3 - 3-dose series) HEPATITIS B (1 of 3 - 3-dose series) [facility] Start: 1974 HIV screening HIV Screening Start: 1974 Lipid panel Lipid Panel Start: 1974 Screening for malignant neoplasm of colon Bacteria identified in Unspecified specimen by Anaerobe culture [facility] Chlamydia trachomatis+Neisseria gonorrhoeae DNA [Presence] in Unspecified specimen by JACEK with probe detection GONORRHEA/CHLAMYDIA NAAT Lab Routine Screen for STD (sexually transmitted disease) Ordered: 12/04/2022 [facility] Work Phone: Comment on above: Ordered: 12/04/2022 Clostridioides diffi cile toxin genes [Presence] in Stool by JACEK with probe detection C. DIFFICILE PCR Lab Routine Diarrhea, unspecified type Ordered: 07/30/2022 [facility] Work Phone: Comment on above: Ordered: 07/30/2022 End: 11-19-2024 CT Chest W contrast IV CT CHEST W IVCON Radiology STAT Chronic cough Abnormal chest x-ray 1 Occurrences starting 10/21/2023 until 11/19/2024 [facility] Work Phone: Comment on above: 1 Occurrences starting 10/21/2023 until 11/19/2024 End: 02-10-2025 DBT Breast - bilateral screening ALLIE SCREENING W ASHLEY Radiology Routine Encounter for screening mammogram for breast cancer 1 Occurrences starting 01/12/2024 until 02/10/2025 [facility] Work Phone: Comment on above: 1 Occurrences starting 01/12/2024 until 02/10/2025 ECG COMPLETE [facility] Work Phone: Comment on above: Ordered: 07/23/2023 End: 07-22-2024 Echocardiography ECHO Cardiology Routine SOB (shortness of breath) 1 Occurrences starting 07/23/2023 until 07/22/2024 [facility] Work Phone: Comment on above: 1 Occurrences starting 07/23/2023 until 07/22/2024 ENTERIC BACTERIAL PA ANJU BY PCR ENTERIC BACTERIAL PANEL BY PCR Lab Routine Diarrhea, unspecified type Ordered: 07/30/2022 [facility] Work Phone: Comment on above: Ordered: 07/30/2022 End: 08-10-2024 EXERCISE STRESS ECG (WITHOUT IMAGING) EXERCISE STRESS ECG (WITHOUT IMAGING) Cardiology Routine Dizziness Ventricular hypertrophy 1 Occurrences starting 08/11/2023 until 08/10/2024 [facility] Work Phone: Comment on above: 1 Occurrences starting 08/11/2023 until 08/10/2024 Fungal Culture Fungal Culture [facility] Fungal Smear Fungal Smear [facility] End: 01-03-2024 ALLIE SCREENING W ASHLEY ALLIE SCREENING W ASHLEY Radiology Routine Encounter for screening mammogram for breast cancer 1 Occurrences starting 12/04/2022 until 01/03/2024 [facility] Work Phone: Comment on above: 1 Occurrences starting 12/04/2022 until 01/03/2024 End: 06-12-2024 MR Cervical spine WO contrast MRI CERVICAL SPINE WO IV CON Radiology Routine Cervicalgia 1 Occurrences starting 05/14/2023 until 06/12/2024 [facility] Work Phone: Comment on above: 1 Occurrences starting 05/14/2023 until 06/12/2024 OUTSIDE VENDOR CARDI AC OUTPATIENT EXTENDED RHYTHM RECORDING (WITHOUT TELEMETRY) OUTSIDE VENDOR CARDIAC OUTPATIENT EXTENDED RHYTHM RECORDING (WITHOUT TELEMETRY) Holter Routine Dizziness Bradycardia Ordered: 09/15/2023 [facility] Work Phone: Comment on above: Ordered: 09/15/2023 Ova and parasites id entified in Unspecified specimen by Light microscopy OVA + PARA MICROSCOPIC Microbiology Routine Diarrhea, unspecified type Ordered: 07/30/2022 [facility] Work Phone: Comment on above: Ordered: 07/30/2022 Patient Education ED Foot Contusion [facility] Work Phone: Patient referral [facility] Work Phone: SARS-CoV-2 (COVID-19 ) RNA [Presence] in Respiratory specimen by JACEK with probe detection COVID NAAT, ROUTINE Microbiology Routine URI, acute Exposure to confirmed case of COVID-19 12/09/2022 10:31 AM EDT [facility] Work Phone: End: 10-31-2022 Screening mammography bi 2-view breast inc cad ALLIE SCREENING Radiology Routine Encounter for screening mammogram for breast cancer 1 Occurrences starting 10/01/2021 until 10/31/2022 [facility] Work Phone: Comment on above: 1 Occurrences starting 10/01/2021 until 10/31/2022 Tissue exam [facility] Work Phone: Comment on above: Release Upon Ordering for 1 Occurrences starting 03/10/2024, 1 completed End: 06-12-2024 XR Cervical spine AP and Lateral and oblique XR CERV OTHER 4V AP/LAT/OBL Radiology Routine Cervicalgia 1 Occurrences starting 05/14/2023 until 06/12/2024 [facility] Work Phone: Comment on above: 1 Occurrences starting 05/14/2023 until 06/12/2024 XR Cervical spine AP and Lateral and oblique XR CERV OTHER 4V AP/LAT/OBL Radiology Routine Cervicalgia 05/14/2023 10:14 AM EST [facility] Work Phone: End: 08-21-2024 XR Chest PA and Lateral XR CHEST 2V FRONTAL/LAT Radiology Routine SOB (shortness of breath) 1 Occurrences starting 07/23/2023 until 08/21/2024 [facility] Work Phone: Comment on above: 1 Occurrences starting 07/23/2023 until 08/21/2024 XR Chest PA and Lateral XR CHEST 2V FRONTAL/LAT Radiology Routine SOB (shortness of breath) 07/23/2023 2:39 PM EDT [facility] Work Phone: End: 01-10-2023 XR FOOT GENERAL 3V AP/LAT/OBL LEFT XR FOOT GENERAL 3V AP/LAT/OBL LEFT Radiology Routine Contusion of lesser toe of left foot without damage to nail, initial encounter 1 Occurrences starting 12/11/2021 until 01/10/2023 [facility] Work Phone: Comment on above: 1 Occurrences starting 12/11/2021 until 01/10/2023 End: 11-15-2023 XR HIP GENERAL 3V PELV/AP/LAT LEFT XR HIP GENERAL 3V PELV/AP/LAT LEFT Radiology Routine Pain in left hip 1 Occurrences starting 10/16/2022 until 11/15/2023 [facility] Work Phone: Comment on above: 1 Occurrences starting 10/16/2022 until 11/15/2023 End: 07-08-2024 XR Knee - right 4 Views XR KNEE GENERAL 4V AP BOTH/PA BOTH/LAT/MERC RIGHT Radiology Routine Right knee pain, unspecified chronicity 1 Occurrences starting 06/09/2023 until 07/08/2024 [facility] Work Phone: Comment on above: 1 Occurrences starting 06/09/2023 until 07/08/2024 End: 11-15-2023 XR KNEE GENERAL 4V AP BOTH/PA BOTH/LAT/MERC LEFT XR KNEE GENERAL 4V AP BOTH/PA BOTH/LAT/MERC LEFT Radiology Routine Right knee pain, unspecified chronicity 1 Occurrences starting 10/16/2022 until 11/15/2023 [facility] Work Phone: Comment on above: 1 Occurrences starting 10/16/2022 until 11/15/2023 [facility] Immunizations Immunization Date Immunization Notes Care Provider Suzy moreira 03-09-2018 influenza, injectabl e, quadrivalent, contains preservative Mary Tannhof GIFTED TEACHER.HEARING AID DISPENSER Work Phone: [facility] 03-09-2018 influenza virus vaccine, unspecified formulation Racquel Johnson RD [facility] 03-26-2017 influenza, injectabl e, quadrivalent, contains preservative Mary Tannhof GIFTED TEACHER.HEARING AID DISPENSER Work Phone: [facility] 01-04-2016 Influenza virus vaccine [facility] 08-08-2014 tetanus toxoid, reduced diphtheria toxoid, and acellular pertussis vaccine, adsorbed Mary Tannhof GIFTED TEACHER.HEARING AID DISPENSER Work Phone: [facility] Work Phone: 02-01-2014 influenza, seasonal, injectable Mary Tannhof GIFTED TEACHER.HEARING AID DISPENSER Work Phone: [facility] 08-16-2013 tetanus toxoid, reduced diphtheria toxoid, and acellular pertussis vaccine, adsorbed Mary Tannhof GIFTED TEACHER.HEARING AID DISPENSER Work Phone: [facility] 03-31-2013 influenza virus vaccine, unspecified formulation Mary Tannhof GIFTED TEACHER.HEARING AID DISPENSER Work Phone: [facility] 03-15-2012 influenza virus vaccine, unspecified formulation Mary Tannhof GIFTED TEACHER.HEARING AID DISPENSER Work Phone: [facility] 03-04-2011 influenza virus vaccine, unspecified formulation Mary Tannhof GIFTED TEACHER.HEARING AID DISPENSER Work Phone: [facility] Work Phone: 01-26-2006 influenza virus vaccine, unspecified formulation Mary Tannhof GIFTED TEACHER.HEARING AID DISPENSER Work Phone: [facility] Work Phone: Payers Date Payer Category Payer Medicaid [facility] MED[facility] [id number] 2023 Self-pay [id number] 2015 Medicaid [employer] [id number] 2015-Present [phone] [address] [place] [id number] Medicaid [id number] 2015 Medicaid [id number] 2015 Unknown [id number] 2015 Unknown [id number] Unknown [id number] Unknown [id number] Unknown [id number] Unknown [id number] Unknown [id number] Unknown [id number] Unknown [id number] Unknown [id number] Unknown [id number] Unknown [id number] Unknown [id number] Social History Date Type Detail Facility Start: 01-30-2021 End: 06-05-2022 Tobacco smoking status NHIS Unknown if ever smoked [facility] Start: 04-29-2020 None [facility] Start: 04-29-2020 With Family [facility] Start: 04-29-2020 Non-smoker [facility] Start: 1975 Sex Assigned At Female W [facility] Start: 12-11-2010 End: 01-04-2024 Tobacco smoking status NHIS Never smoked tobacco [facility] Work Phone: Start: 09-17-2021 End: 11-29-2024 Alcohol intake Current drinker of alcohol (finding) [facility] Start: 10-10-2014 History SDOH Alcohol Comment rarely, 1-2 weekends per month 5 drinks (prior to ) [facility] Start: 1975 Sex Assigned At Not on file [facility] Start: 09-07-2021 End: 12-10-2021 Exposure to SARS-CoV-2 (event) Not sure [facility] Start: 12-11-2010 End: 01-04-2024 Tobacco use and exposure Smokeless tobacco non-user [facility] Work Phone: Start: 09-14-2022 End: 11-29-2024 History of Social function [facility] Start: 09-14-2022 End: 11-29-2024 Tobacco use panel [facility] Adult Depression Screening Assessment 6 [facility] Start: 12-28-2019 Gender identity Identifies as female gender (finding) [facility] Has the electric, gas, oil, or water company threatened to shut off services in your home in past 12Mo No [facility] Are you now , , , , never or living with a partner? [facility] How often to you hav e a drink containing alcohol? 2-4 times a month [facility] How many standard drinks containing alcohol do you have on a typical day? 1 or 2 [facility] How often do you hav e 6 or more drinks on 1 occasion? Less than monthly [facility] How hard is it for you to pay for the very basics like food, housing, medical care, and heating Somewhat hard [facility] Do you feel stress - tense, restless, nervous, or anxious, or unable to sleep at night because your mind is troubled all the time - these days [OSQ] Rather much [facility] (I/We) worried whether (my/our) food would run out before (I/we) got money to buy more. Sometimes true [facility] Start: 01-04-2024 Alcohol Comment 2 cans weekly Start: 12-20-2023 Sex Female (finding) Start: 03-10-2024 Alcohol Comment 2 beers monthly [facility] NEGATED: Highlighted row [facility] Medical Equipment Procedure Code Equipment Code Equipment Origin al Text Equipment Identifier Dates Plate 04/07 Tubula r Tit 6 Hole - [id number] Start: 03-08-2009 Comment on above: Description: SYNTHES SMALL FRAG Screw Pa Tit 3.5x28m 404.028 - [id number] Start: 03-08-2009 Screw Pa Tit 3.5x12m 404.012 - [id number] Start: 03-08-2009 Screw Pa Tit 3.5x10m 404.010 - [id number] Start: 03-08-2009 Screw Pa Tit 3.5x16m 404.016 - [id number] Start: 03-08-2009 Screw Pa Tit 3.5x14m 404.014 - [id number] Start: 03-08-2009 Goals Date Patient Goal Desired Activity /State Functional Status Date Assessment Result Facility 10-23-2014 Are you deaf, or do you have serious difficulty hearing No 10/23/2014 3:15 PM Karla Rivera LPN No [facility] 10-23-2014 Are you blind, or do you have serious difficulty seeing, even when wearing glasses No 10/23/2014 3:15 PM Karla Rivera LPN No [facility] 10-23-2014 Do you have serious difficulty walking or climbing stairs No 10/23/2014 3:15 PM Karla Rivera LPN No [facility] 10-23-2014 Do you have difficul ty dressing or bathing No 10/23/2014 3:15 PM Karla Rivera LPN No [facility] 10-23-2014 Because of a physica l, mental, or emotional condition, do you have difficulty doing errands alone such as visiting a physician's office or shopping No 10/23/2014 3:15 PM Karla Rivera LPN No [facility] Mental Status Date Assessment Result Facility 06-09-2022 Cognitive function Voice/Name [facility] Work Phone: 09-26-2021 Cognitive function Voice/Name [facility] Work Phone: 07-04-2021 Cognitive function Voice/Name;To uch/Ayanna graf [facility] Work Phone: 10-23-2014 Because of a physica l, mental, or emotional condition, do you have serious difficulty concentrating, remembering, or making decisions No 10/23/2014 3:15 PM EDT Karla Moody LPN No [facility] Clinical Notes 07-03-2015 to 11-29-2024 Tommy Fink MA - 11/29/2024 1:50 PM EDJimi Riddle MD - 11/29/2024 1:50 PM EDTTelephone Encounter - Jeyson Trevino - 11/24/2024 2:53 PM EDTTommy Fink MA - 10/04/2024 2:20 PM EDTAttachments Note Date & Type Note Facility 11-29-2024 History of Present illness Narrative [facility] SURGICAL WEIGHT LOSS MANAGEMENT PROGRAM PROGRESS NOTE FOLLOW UP Patient: Salma Browning Date of : 1975 Service Date: 11/29/2024 Pre-Op Medical Visit number: 5 of 6 Follow Up Weight Metrics Last Three Weights Including Today's Weight: Wt Readings from Last 3 Encounters: 11/29/24 279 lb 3.2 oz (127 kg) 10/04/24 278 lb 9.6 oz (126 kg) 09/13/24 273 lb 3.2 oz (124 kg) Today's BMI: BMI: 47.92 %EBWL: % EBWL: -1% Weight Chance Since Last Visit: Weight Change: .6 lbs Weight Change from Initial Pre-Op Medical/SPR Weight: Total Weight Change: 1.8 lbs Patient has the following question(s): none Falls Risk Assessment Patient doestake medications which affect BP or mental status Patient does not have newly prescribed or changed dosage of medications within past 30 days which affect BP or mental status Patient has not fallen in the past 2 months Patient does notdemonstrate unsteady gait Patient uses the following ambulatory assistive devices: none Patient states the presence of the following traits which increases risk of fall: none Patient is not on home O2 Have you received packet of information by mail from our office which includes: Surgical Checklist, lab orders and referral information? Yes Completed by: Tommy Fink MA HPI, PHYSICAL EXAM, AND PLAN Patient is here today for follow up of their physician supervised diet and exercise in preparation for weight loss surgery. Weight trend since last visit: gain 1 lb over 1 m stable This patient's excess weight is causing the following co-morbid conditions at this time HTN Plan: Physical Examination: Blood pressure 137/86, pulse 103, height 5' 4 (1.626 m), weight 279 lb 3.2 oz (127 kg). General: This patient is alert and oriented X3 General: This patient is awake, alert, and oriented, and is in no apparent distress. Extremities: No cyanosis, clubbing or edema/ No calf tenderness/No restrictions of movement, is ambulatory without assistance. Neurological: Intact x 4 extremities, no focal deficits notes. Skin: No rashes or lesions noted. Assessment of Current Diet and Exercise Current Diet This patient s current diet is:80% meal plan Her diet contains adequate amounts of protein, inadequate amounts of healthy fats, adequate amounts of green, leafy vegetables, and adequate amounts of fruits. Her comfort foods include:none Current Activity This patient currently does exercise for 45 Minutes per session, 5 times per week, including the following: walking. Current Eating Behaviors This patients demonstrates the following behaviors as they relate to her eating:structured She eats approximately 4-6 times per day. Her last meal/snack was at 6 am/pm. Plan: HTN: stable. continued medical management, DE and plan for metabolic weight loss and surgery. Obesity class 3 stable Continue current management, continue weight loss program Advised patient that She must continue to adhere to regular monthly visits to meet the requirements of her insurance company. Additionally, She is to adopt eating plan recommendations and show weight loss trend to demonstrate readiness for the changes that will be required following surgery. Patient's weight pattern does demonstrates meal plan adoption and weight loss each month Physician Diet Recommendations provided in Patient Instructions Patient: [] To return in one month for follow up. [x] Has completed insurance required monthly diet and exercise series [] Needs to continue monthly visits until surgery Current Meds Patient's Medications New Prescriptions No medications on file Previous Medications ATENOLOL (TENORMIN) 50 MG TABLET Take 50 mg by mouth daily. CELECOXIB (CELEBREX) 200 MG CAPSULE Take 200 mg by mouth 2 times daily. HYDROCODONE-ACETAMINOPHEN (NORCO) 5-325 MG TABLET Take 2 tablets by mouth. HYDROXYZINE HCL (ATARAX) 25 MG TABLET Take 25 mg by mouth every 8 hours as needed. LISINOPRIL 10 MG TABLET Take 10 mg by mouth in the morning. MECLIZINE (ANTIVERT) 25 MG TABLET TAKE 1 TABLET BY MOUTH EVERY 6 HOURS NEEDED FOR DIZZINESS OMEPRAZOLE (PRILOSEC) [address] CAPSULE Take 40 mg by mouth in the morning and 40 mg in the evening. PAROXETINE (PAXIL) 20 MG TABLET Take 20 mg by mouth every morning. PAROXETINE (PAXIL) 40 MG TABLET Take 40 mg by mouth daily. RIZATRIPTAN (MAXALT) 10 MG TABLET TAKE 1 TABLET BY MOUTH NEEDED FOR MIGRAINE HEADACHE. TIZANIDINE (ZANAFLEX) 4 MG TABLET Take 4 mg by mouth daily. VITAMIN D PO Take 1 tablet by mouth before bedtime. Modified Medications No medications on file Discontinued Medications No medications on file I spend a total of 20 minutes on the same day of the visit in discussing/counseling the patient regarding the diet and exercise in the preparation for weight loss surgery.Education on the meal plan and 7 rules of eating is provided. Meal prep is encouraged as a foundation of the meal plan. Food journal is encouraged as a feedback system before and after bariatric surgery. Counseling on no nicotine/alcohol before and after surgery. Exercise and its role in the preparation for weight loss surgery is explained. HTN Is associated with obesity and weight loss is discussed as a treatment option for HTN Full chart review was performed.Clinical documentation is updated and completed. documented in this encounter 11-29-2024 Note [facility] SURGICAL WEIGHT LOSS MANAGEMENT PROGRAM PROGRESS NOTE FOLLOW UP Patient: Salma Browning Date of : 1975 Service Date: 11/29/2024 Pre-Op Medical Visit number: 5 of 6 Follow Up Weight Metrics Last Three Weights Including Today's Weight: Wt Readings from Last 3 Encounters: 11/29/24 279 lb 3.2 oz (127 kg) 10/04/24 278 lb 9.6 oz (126 kg) 09/13/24 273 lb 3.2 oz (124 kg) Today's BMI: BMI: 47.92 %EBWL: % EBWL: -1% Weight Chance Since Last Visit: Weight Change: .6 lbs Weight Change from Initial Pre-Op Medical/SPR Weight: Total Weight Change: 1.8 lbs Patient has the following question(s): none Falls Risk Assessment Patient doestake medications which affect BP or mental status Patient does not have newly prescribed or changed dosage of medications within past 30 days which affect BP or mental status Patient has not fallen in the past 2 months Patient does notdemonstrate unsteady gait Patient uses the following ambulatory assistive devices: none Patient states the presence of the following traits which increases risk of fall: none Patient is not on home O2 Have you received packet of information by mail from our office which includes: Surgical Checklist, lab orders and referral information? Yes Completed by: Tommy Fink MA [facility] 11-24-2024 Telephone encounter Note Called patient no answer. Sent patient [employer] message to reply and schedule appointment with Dr. Riddle. 11-24-2024 Miscellaneous Notes Called patient no answer. Sent patient [employer] message to reply and schedule appointment with Dr. Riddle. Pt called and left message that she is calling to r/s missed appt. Left message fro patient to call back to reschedule. documented in this encounter 11-21-2024 Telephone encounter Note Pt called and left message that she is calling to r/s missed appt. 11-21-2024 Miscellaneous Notes Pt called and left message that she is calling to r/s missed appt. Left message fro patient to call back to reschedule. documented in this encounter 11-15-2024 Telephone encounter Note Left message fro patient to call back to reschedule. 11-15-2024 Miscellaneous Notes Left message fro patient to call back to reschedule. documented in this encounter 10-04-2024 History of Present illness Narrative [facility] SURGICAL WEIGHT LOSS MANAGEMENT PROGRAM PROGRESS NOTE FOLLOW UP Patient: Salma Browning Date of : 1975 Service Date: 10/04/2024 Pre-Op Medical Visit number: 4 of 6 Follow Up Weight Metrics Last Three Weights Including Today's Weight: Wt Readings from Last 3 Encounters: 10/04/24 278 lb 9.6 oz (126 kg) 09/13/24 273 lb 3.2 oz (124 kg) 08/16/24 273 lb 9.6 oz (124 kg) Today's BMI: BMI: 47.82 %EBWL: % EBWL: -1% Weight Chance Since Last Visit: Weight Change: 5.4 lbs Weight Change from Initial Pre-Op Medical/SPR Weight: Total Weight Change: 1.2 lbs Patient has the following question(s): none Falls Risk Assessment Patient doestake medications which affect BP or mental status Patient does not have newly prescribed or changed dosage of medications within past 30 days which affect BP or mental status Patient has not fallen in the past 2 months Patient does notdemonstrate unsteady gait Patient uses the following ambulatory assistive devices: none Patient states the presence of the following traits which increases risk of fall: none Patient is not on home O2 Have you received packet of information by mail from our office which includes: Surgical Checklist, lab orders and referral information? Yes Completed by: Tommy Fink MA HPI, PHYSICAL EXAM, AND PLAN Patient is here today for follow up of their physician supervised diet and exercise in preparation for weight loss surgery. Weight trend since last visit: gain 5 lb over 1 m stable This patient's excess weight is causing the following co-morbid conditions at this time HTN Plan: Physical Examination: Blood pressure 121/76, pulse 71, height 5' 4 (1.626 m), weight 278 lb 9.6 oz (126 kg). General: This patient is alert and oriented X3 General: This patient is awake, alert, and oriented, and is in no apparent distress. Extremities: No cyanosis, clubbing or edema/ No calf tenderness/No restrictions of movement, is ambulatory without assistance. Neurological: Intact x 4 extremities, no focal deficits notes. Skin: No rashes or lesions noted. Assessment of Current Diet and Exercise Current Diet This patient s current diet is:80% meal plan Her diet contains adequate amounts of protein, inadequate amounts of healthy fats, adequate amounts of green, leafy vegetables, and adequate amounts of fruits. Her comfort foods include:none Current Activity This patient currently does exercise for 45 Minutes per session, 5 times per week, including the following: walking. Current Eating Behaviors This patients demonstrates the following behaviors as they relate to her eating:structured She eats approximately 4-6 times per day. Her last meal/snack was at 6 am/pm. Plan: HTN: stable. continued medical management, DE and plan for metabolic weight loss and surgery. Advised patient that She must continue to adhere to regular monthly visits to meet the requirements of her insurance company. Additionally, She is to adopt eating plan recommendations and show weight loss trend to demonstrate readiness for the changes that will be required following surgery. Patient's weight pattern does demonstrates meal plan adoption and weight loss each month Physician Diet Recommendations provided in Patient Instructions Patient: [x] To return in one month for follow up. [] Has completed insurance required monthly diet and exercise series [] Needs to continue monthly visits until surgery Current Meds Patient's Medications New Prescriptions No medications on file Previous Medications ATENOLOL (TENORMIN) 50 MG TABLET Take 50 mg by mouth daily. CELECOXIB (CELEBREX) 200 MG CAPSULE Take 200 mg by mouth 2 times daily. HYDROCODONE-ACETAMINOPHEN (NORCO) 5-325 MG TABLET Take 2 tablets by mouth. HYDROXYZINE HCL (ATARAX) 25 MG TABLET Take 25 mg by mouth every 8 hours as needed. LISINOPRIL 10 MG TABLET Take 10 mg by mouth in the morning. MECLIZINE (ANTIVERT) 25 MG TABLET TAKE 1 TABLET BY MOUTH EVERY 6 HOURS NEEDED FOR DIZZINESS OMEPRAZOLE (PRILOSEC) [address] CAPSULE Take 40 mg by mouth in the morning and 40 mg in the evening. PAROXETINE (PAXIL) 20 MG TABLET Take 20 mg by mouth every morning. PAROXETINE (PAXIL) 40 MG TABLET Take 40 mg by mouth daily. RIZATRIPTAN (MAXALT) 10 MG TABLET TAKE 1 TABLET BY MOUTH NEEDED FOR MIGRAINE HEADACHE. TIZANIDINE (ZANAFLEX) 4 MG TABLET Take 4 mg by mouth daily. VITAMIN D PO Take 1 tablet by mouth before bedtime. Modified Medications No medications on file Discontinued Medications No medications on file Started new job Discuss meal planning for the working day I spend a total of 20 minutes on the same day of the visit in discussing/counseling the patient regarding the diet and exercise in the preparation for weight loss surgery.Education on the meal plan and 7 rules of eating is provided. Meal prep is encouraged as a foundation of the meal plan. Food journal is encouraged as a feedback system before and after bariatric surgery. Counseling on no nicotine/alcohol before and after surgery. Exercise and its role in the preparation for weight loss surgery is explained. Is associated with obesity and weight loss is discussed as a treatment option for Full chart review was performed.Clinical documentation is updated and completed. documented in this encounter 10-04-2024 [facility] PROGRESS NOTE FOLLOW UP Patient: Salma Browning Date of : 1975 Service Date: 10/04/2024 Pre-Op Medical Visit number: 4 of 6 Follow Up Weight Metrics Last Three Weights Including Today's Weight: Wt Readings from Last 3 Encounters: 10/04/24 278 lb 9.6 oz (126 kg) 09/13/24 273 lb 3.2 oz (124 kg) 08/16/24 273 lb 9.6 oz (124 kg) Today's BMI: BMI: 47.82 %EBWL: % EBWL: -1% Weight Chance Since Last Visit: Weight Change: 5.4 lbs Weight Change from Initial Pre-Op Medical/SPR Weight: Total Weight Change: 1.2 lbs Patient has the following question(s): none Falls Risk Assessment Patient doestake medications which affect BP or mental status Patient does not have newly prescribed or changed dosage of medications within past 30 days which affect BP or mental status Patient has not fallen in the past 2 months Patient does notdemonstrate unsteady gait Patient uses the following ambulatory assistive devices: none Patient states the presence of the following traits which increases risk of fall: none Patient is not on home O2 Have you received packet of information by mail from our office which includes: Surgical Checklist, lab orders and referral information? Yes Completed by: Tommy Fink MA [facility] 09-13-2024 History of Present illness Narrative HPI, PHYSICAL EXAM, AND PLAN Patient is here today for follow up of their physician supervised diet and exercise in preparation for weight loss surgery. Weight trend since last visit: no change stable This patient's excess weight is causing the following co-morbid conditions at this time HTN Plan: Physical Examination: Blood pressure 118/89, pulse (!) 120, height 5' 4 (1.626 m), weight 273 lb 3.2 oz (124 kg). General: This patient is alert and oriented X3 General: This patient is awake, alert, and oriented, and is in no apparent distress. Extremities: No cyanosis, clubbing or edema/ No calf tenderness/No restrictions of movement, is ambulatory without assistance. Neurological: Intact x 4 extremities, no focal deficits notes. Skin: No rashes or lesions noted. Assessment of Current Diet and Exercise Current Diet This patient s current diet is:80% meal plan Her diet contains adequate amounts of protein, inadequate amounts of healthy fats, adequate amounts of green, leafy vegetables, and adequate amounts of fruits. Her comfort foods include:none Current Activity This patient currently does exercise for 45 Minutes per session, 5 times per week, including the following: walking. Current Eating Behaviors This patients demonstrates the following behaviors as they relate to her eating:structured She eats approximately 4-5 times per day. Her last meal/snack was at 6 am/pm. Plan: HTN: stable. continued medical management, DE and plan for metabolic weight loss and surgery. Advised patient that She must continue to adhere to regular monthly visits to meet the requirements of her insurance company. Additionally, She is to adopt eating plan recommendations and show weight loss trend to demonstrate readiness for the changes that will be required following surgery. Patient's weight pattern does demonstrates meal plan adoption and weight loss each month Physician Diet Recommendations provided in Patient Instructions Patient: [x] To return in one month for follow up. [] Has completed insurance required monthly diet and exercise series [] Needs to continue monthly visits until surgery Current Meds Patient's Medications New Prescriptions No medications on file Previous Medications ATENOLOL (TENORMIN) 50 MG TABLET Take 50 mg by mouth daily. CELECOXIB (CELEBREX) 200 MG CAPSULE Take 200 mg by mouth 2 times daily. HYDROCODONE-ACETAMINOPHEN (NORCO) 5-325 MG TABLET Take 2 tablets by mouth. HYDROXYZINE HCL (ATARAX) 25 MG TABLET Take 25 mg by mouth every 8 hours as needed. LISINOPRIL 10 MG TABLET Take 10 mg by mouth in the morning. MECLIZINE (ANTIVERT) 25 MG TABLET TAKE 1 TABLET BY MOUTH EVERY 6 HOURS NEEDED FOR DIZZINESS OMEPRAZOLE (PRILOSEC) [address] CAPSULE Take 40 mg by mouth in the morning and 40 mg in the evening. PAROXETINE (PAXIL) 20 MG TABLET Take 20 mg by mouth every morning. PAROXETINE (PAXIL) 40 MG TABLET Take 40 mg by mouth daily. RIZATRIPTAN (MAXALT) 10 MG TABLET TAKE 1 TABLET BY MOUTH NEEDED FOR MIGRAINE HEADACHE. TIZANIDINE (ZANAFLEX) 4 MG TABLET Take 4 mg by mouth daily. VITAMIN D PO Take 1 tablet by mouth before bedtime. Modified Medications No medications on file Discontinued Medications No medications on file Started new job Discuss meal planning for the working day I spend a total of 20 minutes on the same day of the visit in discussing/counseling the patient regarding the diet and exercise in the preparation for weight loss surgery.Education on the meal plan and 7 rules of eating is provided. Meal prep is encouraged as a foundation of the meal plan. Food journal is encouraged as a feedback system before and after bariatric surgery. Counseling on no nicotine/alcohol before and after surgery. Exercise and its role in the preparation for weight loss surgery is explained. Is associated with obesity and weight loss is discussed as a treatment option for Full chart review was performed.Clinical documentation is updated and completed. [facility] SURGICAL WEIGHT LOSS MANAGEMENT PROGRAM PROGRESS NOTE FOLLOW UP Patient: Salma Browning Date of : 1975 Service Date: 09/13/2024 Pre-Op Medical Visit number: 3 of 6 Follow Up Weight Metrics Last Three Weights Including Today's Weight: Wt Readings from Last 3 Encounters: 09/13/24 273 lb 3.2 oz (124 kg) 08/16/24 273 lb 9.6 oz (124 kg) 07/14/24 277 lb 6.4 oz (126 kg) Today's BMI: BMI: 46.89 %EBWL: % EBWL: 3% Weight Chance Since Last Visit: Weight Change: -.4 lbs Weight Change from Initial Pre-Op Medical/SPR Weight: Total Weight Change: -4.2 lbs Patient has the following question(s): none Falls Risk Assessment Patient doestake medications which affect BP or mental status Patient does not have newly prescribed or changed dosage of medications within past 30 days which affect BP or mental status Patient has not fallen in the past 2 months Patient does notdemonstrate unsteady gait Patient uses the following ambulatory assistive devices: none Patient states the presence of the following traits which increases risk of fall: none Patient is not on home O2 Have you received packet of information by mail from our office which includes: Surgical Checklist, lab orders and referral information? Yes Completed by: Tommy Fink MA documented in this encounter 09-13-2024 Note [facility] SURGICAL WEIGHT LOSS MANAGEMENT PROGRAM PROGRESS NOTE FOLLOW UP Patient: Salma Browning Date of : 1975 Service Date: 09/13/2024 Pre-Op Medical Visit number: 3 of 6 Follow Up Weight Metrics Last Three Weights Including Today's Weight: Wt Readings from Last 3 Encounters: 09/13/24 273 lb 3.2 oz (124 kg) 08/16/24 273 lb 9.6 oz (124 kg) 07/14/24 277 lb 6.4 oz (126 kg) Today's BMI: BMI: 46.89 %EBWL: % EBWL: 3% Weight Chance Since Last Visit: Weight Change: -.4 lbs Weight Change from Initial Pre-Op Medical/SPR Weight: Total Weight Change: -4.2 lbs Patient has the following question(s): none Falls Risk Assessment Patient doestake medications which affect BP or mental status Patient does not have newly prescribed or changed dosage of medications within past 30 days which affect BP or mental status Patient has not fallen in the past 2 months Patient does notdemonstrate unsteady gait Patient uses the following ambulatory assistive devices: none Patient states the presence of the following traits which increases risk of fall: none Patient is not on home O2 Have you received packet of information by mail from our office which includes: Surgical Checklist, lab orders and referral information? Yes Completed by: Tommy Fink MA [facility] 09-04-2024 Instructions Neal Gomez APRN.[facility] - 09/04/2024 10:45 AM EDT We discussed your concerns about the sore on the left side of your head: - I am diagnosing this as a localized bacterial skin infection. - I have prescribed Bactrim DS (sulfamethoxazole/trimethoprim), 1 tablet twice daily for 10 days. This prescription has been sent to your preferred [facility] pharmacy in [place]. - Please take this medication with plenty of food and water to avoid stomach upset and to protect your kidneys. - Be aware that Bactrim can interact with certain medications, such as Lisinopril, if taken for long periods. However, a 10-day course is safe. - Avoid popping or manipulating the sore, as this can worsen the infection. - Monitor the area closely. If the pain worsens, you develop a fever, or you notice increased redness, swelling, or drainage, please contact our office immediately. - If the infection does not improve or worsens, we may need to refer you to dermatology or consider a procedure for incision and drainage. Please follow these instructions and let us know if you have any concerns or if your symptoms do not improve. documented in this encounter [facility] 09-04-2024 Note HNO ID: [id number] Author: NEAL GOMEZ APRN.NORI Service: ? Author Type: Nurse Practitioner Type: Progress Notes Filed: 09/04/2024 10:49 Note Text: Chief Complaint Patient presents with: Mass: Sore spot on left side of head above ear x week HPI Salma Browning is a 49 year old female who presents here today for above reason. Bushra is a 49-year-old female presenting with a painful lesion on the left side of her head. Bushra reports a painful, hard lesion on the left side of her head that appeared over a week ago. She describes the lesion as initially resembling a pimple, which she attempted to pop, resulting in purulent discharge described as yellowish-red. The lesion has since become increasingly painful, to the point where she is unable to sleep on the affected side. She also experiences significant discomfort when brushing her hair due to the lesion. Bushra has a history of a previous MRSA infection that began as a pimple on her chin and required hospitalization for over a week, including plastic surgery. She expresses concern that the current lesion may be similar to her previous MRSA infection. Past medical history, appointments, medications, allergies reviewed. EXAM: BP 128/90 (BP Position: Sitting) Pulse 68 Resp 16 Wt 124.7 kg (275 lb) LMP (LMP Unknown) SpO2 98% BMI 47.20 kg/m? General Appearance: Well appearing, alert, in no acute distress, well-hydrated, well nourished.. Skin: Left side of skull, behind upper lobe of ear; there is a tender, erythematous area with scab present, could not palpate any fluence present. No drainage expressed, mild warmth. Assessment and Plan 1. Localized bacterial skin infection (L08.9) Localized bacterial skin infection on the left side of the scalp, presenting as a hard, painful lump with a scab and minimal surrounding erythema. No current drainage observed, but patient reports previous purulent discharge. Differential diagnosis includes folliculitis with potential MRSA involvement. - Initiated Bactrim DS 1 tablet BID for 10 days to cover MRSA and other common skin pathogens. Advised patient to take medication with food and plenty of water to prevent renal complications. - Educated patient on potential interaction between lisinopril and Bactrim affecting potassium levels, but reassured that short-term use is safe. - Advised against further manipulation or popping of the lesion. - Instructed patient to monitor for worsening symptoms such as increased pain, fever, or drainage. - If symptoms worsen, consider referral to dermatology or surgical intervention for incision and drainage. - Prescription sent to [facility] in [place]. Neal Gomez APRN.[employer] This note was partly generated using [employer] voice recognition dictation and may contain some misspelled or inaccurate words missed on review. Recording using [employer] software for draft documentation of the visit was discussed with the patient/authorized patient financial representative; all questions welcomed and answered. Patient/authorized patient financial representative agreed to proceed [facility] 09-04-2024 History of Present illness Narrative Chief Complaint Patient presents with: Mass: Sore spot on left side of head above ear x week HPI Salma Browning is a 49 year old female who presents here today for above reason. Bushra is a 49-year-old female presenting with a painful lesion on the left side of her head. Bushra reports a painful, hard lesion on the left side of her head that appeared over a week ago. She describes the lesion as initially resembling a pimple, which she attempted to pop, resulting in purulent discharge described as yellowish-red. The lesion has since become increasingly painful, to the point where she is unable to sleep on the affected side. She also experiences significant discomfort when brushing her hair due to the lesion. Bushra has a history of a previous MRSA infection that began as a pimple on her chin and required hospitalization for over a week, including plastic surgery. She expresses concern that the current lesion may be similar to her previous MRSA infection. Past medical history, appointments, medications, allergies reviewed. EXAM: BP 128/90 (BP Position: Sitting) Pulse 68 Resp 16 Wt 124.7 kg (275 lb) LMP (LMP Unknown) SpO2 98% BMI 47.20 kg/m General Appearance: Well appearing, alert, in no acute distress, well-hydrated, well nourished.. Skin: Left side of skull, behind upper lobe of ear; there is a tender, erythematous area with scab present, could not palpate any fluence present. No drainage expressed, mild warmth. Assessment and Plan 1. Localized bacterial skin infection (L08.9) Localized bacterial skin infection on the left side of the scalp, presenting as a hard, painful lump with a scab and minimal surrounding erythema. No current drainage observed, but patient reports previous purulent discharge. Differential diagnosis includes folliculitis with potential MRSA involvement. - Initiated Bactrim DS 1 tablet BID for 10 days to cover MRSA and other common skin pathogens. Advised patient to take medication with food and plenty of water to prevent renal complications. - Educated patient on potential interaction between lisinopril and Bactrim affecting potassium levels, but reassured that short-term use is safe. - Advised against further manipulation or popping of the lesion. - Instructed patient to monitor for worsening symptoms such as increased pain, fever, or drainage. - If symptoms worsen, consider referral to dermatology or surgical intervention for incision and drainage. - Prescription sent to [facility] in [place]. Neal Gomez APRN.NORI This note was partly generated using [employer] voice recognition dictation and may contain some misspelled or inaccurate words missed on review. Recording using [employer] software for draft documentation of the visit was discussed with the patient/authorized patient financial representative; all questions welcomed and answered. Patient/authorized patient financial representative agreed to proceed documented in this encounter [facility] 08-29-2024 Telephone encounter Note The following approved medication requests have been transmitted electronically. Requested Prescriptions Pending Prescriptions Disp Refills lisinopril (ZESTRIL) 10 mg tablet 30 tablet 5 Sig: Take 1 tablet by mouth once daily. Refused Prescriptions Disp Refills PARoxetine (PAXIL) 20 mg tablet 30 tablet 2 Sig: Take 1 tablet by mouth once daily. Take with additional 40 mg tablet. Refused By: SALMA MOODY Reason for Refusal: Records indicate that there is a valid prescription at the pharmacy omeprazole (PRILOSEC) 40 mg capsule 60 capsule 5 Sig: Take 1 capsule by mouth two times a day. Refused By: SALMA MOODY Reason for Refusal: Records indicate that there is a valid prescription at the pharmacy Neal Gomez APRN.CNP [facility] 08-29-2024 Miscellaneous Notes The following approved medication requests have been transmitted electronically. Requested Prescriptions Pending Prescriptions Disp Refills lisinopril (ZESTRIL) 10 mg tablet 30 tablet 5 Sig: Take 1 tablet by mouth once daily. Refused Prescriptions Disp Refills PARoxetine (PAXIL) 20 mg tablet 30 tablet 2 Sig: Take 1 tablet by mouth once daily. Take with additional 40 mg tablet. Refused By: SALMA MOODY Reason for Refusal: Records indicate that there is a valid prescription at the pharmacy omeprazole (PRILOSEC) 40 mg capsule 60 capsule 5 Sig: Take 1 capsule by mouth two times a day. Refused By: SALMA MOODY Reason for Refusal: Records indicate that there is a valid prescription at the pharmacy Neal Gomez APRN.[employer]ER Prescription Refill Information The patient has been identified by name and date of : Yes Caregiver verified no other encounters exist for this prescription request: Yes Caregiver confirmed with patient/requestor that no other refills are due, in the near future, with this provider at this time: Yes The last office visit in the department: 12/03/2023 Does the patient have a future office visit with this provider/department: No Requested Prescriptions Pending Prescriptions Disp Refills lisinopril (ZESTRIL) 10 mg tablet 30 tablet 2 Sig: Take 1 tablet by mouth once daily. Refused Prescriptions Disp Refills omeprazole (PRILOSEC) 40 mg capsule 60 capsule 5 Sig: Take 1 capsule by mouth two times a day. PARoxetine (PAXIL) 20 mg tablet 30 tablet 2 Sig: Take 1 tablet by mouth once daily. Take with additional 40 mg tablet. Refused By: SALMA MOODY Reason for Refusal: Records indicate that there is a valid prescription at the pharmacy Salma Moody LPN August 29, 2024 6:52 AM documented in this encounter [facility] 08-29-2024 Telephone encounter Note Prescription Refill Information The patient has been identified by name and date of : Yes Caregiver verified no other encounters exist for this prescription request: Yes Caregiver confirmed with patient/requestor that no other refills are due, in the near future, with this provider at this time: Yes The last office visit in the department: 12/03/2023 Does the patient have a future office visit with this provider/department: No Requested Prescriptions Pending Prescriptions Disp Refills lisinopril (ZESTRIL) 10 mg tablet 30 tablet 2 Sig: Take 1 tablet by mouth once daily. Refused Prescriptions Disp Refills omeprazole (PRILOSEC) 40 mg capsule 60 capsule 5 Sig: Take 1 capsule by mouth two times a day. PARoxetine (PAXIL) 20 mg tablet 30 tablet 2 Sig: Take 1 tablet by mouth once daily. Take with additional 40 mg tablet. Refused By: SALMA MOODY Reason for Refusal: Records indicate that there is a valid prescription at the pharmacy Salma Moody LPN August 29, 2024 6:52 AM [facility] 08-16-2024 History of Present illness Narrative [facility] SURGICAL WEIGHT LOSS MANAGEMENT PROGRAM PROGRESS NOTE FOLLOW UP Patient: Salma Browning Date of : 1975 Service Date: 08/16/2024 Pre-Op Medical Visit number: 2 of 6 Follow Up Weight Metrics Last Three Weights Including Today's Weight: Wt Readings from Last 3 Encounters: 08/16/24 273 lb 9.6 oz (124 kg) 07/14/24 277 lb 6.4 oz (126 kg) 03/10/24 270 lb (122 kg) Today's BMI: BMI: 46.96 %EBWL: % EBWL: 3% Weight Chance Since Last Visit: Weight Change: -3.8 lbs Weight Change from Initial Pre-Op Medical/SPR Weight: Total Weight Change: -3.8 lbs Patient has the following question(s): none Falls Risk Assessment Patient doestake medications which affect BP or mental status Patient does not have newly prescribed or changed dosage of medications within past 30 days which affect BP or mental status Patient has not fallen in the past 2 months Patient does notdemonstrate unsteady gait Patient uses the following ambulatory assistive devices: none Patient states the presence of the following traits which increases risk of fall: none Patient is not on home O2 Have you received packet of information by mail from our office which includes: Surgical Checklist, lab orders and referral information? Yes Completed by: Tommy Fink MA HPI, PHYSICAL EXAM, AND PLAN Patient is here today for follow up of their physician supervised diet and exercise in preparation for weight loss surgery. Weight trend since last visit: lost 4 lb over 1 month stable This patient's excess weight is causing the following co-morbid conditions at this time HTN Plan: Physical Examination: BP 138/83 Pulse 83 Ht 5' 4 (1.626 m) Wt 273 lb 9.6 oz (124 kg) BMI 46.96 kg/m General: This patient is alert and oriented X3 General: This patient is awake, alert, and oriented, and is in no apparent distress. Extremities: No cyanosis, clubbing or edema/ No calf tenderness/No restrictions of movement, is ambulatory without assistance. Neurological: Intact x 4 extremities, no focal deficits notes. Skin: No rashes or lesions noted. Assessment of Current Diet and Exercise Current Diet This patient s current diet is:80% meal plan Her diet contains adequate amounts of protein, inadequate amounts of healthy fats, adequate amounts of green, leafy vegetables, and adequate amounts of fruits. Her comfort foods include:none Current Activity This patient currently does exercise for 45 Minutes per session, 5 times per week, including the following: walking. Current Eating Behaviors This patients demonstrates the following behaviors as they relate to her eating:structured She eats approximately 4-5 times per day. Her last meal/snack was at 6 am/pm. Plan: HTN: stable. continued medical management, DE and plan for metabolic weight loss and surgery. Advised patient that She must continue to adhere to regular monthly visits to meet the requirements of her insurance company. Additionally, She is to adopt eating plan recommendations and show weight loss trend to demonstrate readiness for the changes that will be required following surgery. Patient's weight pattern does demonstrates meal plan adoption and weight loss each month Physician Diet Recommendations provided in Patient Instructions Patient: [x] To return in one month for follow up. [] Has completed insurance required monthly diet and exercise series [] Needs to continue monthly visits until surgery Current Meds Patient's Medications New Prescriptions No medications on file Previous Medications ATENOLOL (TENORMIN) 50 MG TABLET Take 50 mg by mouth daily. CELECOXIB (CELEBREX) 200 MG CAPSULE Take 200 mg by mouth 2 times daily. HYDROCODONE-ACETAMINOPHEN (NORCO) 5-325 MG TABLET Take 2 tablets by mouth. HYDROXYZINE HCL (ATARAX) 25 MG TABLET Take 25 mg by mouth every 8 hours as needed. LISINOPRIL 10 MG TABLET Take 10 mg by mouth in the morning. MECLIZINE (ANTIVERT) 25 MG TABLET TAKE 1 TABLET BY MOUTH EVERY 6 HOURS NEEDED FOR DIZZINESS OMEPRAZOLE (PRILOSEC) [address] CAPSULE Take 40 mg by mouth in the morning and 40 mg in the evening. PAROXETINE (PAXIL) 20 MG TABLET Take 20 mg by mouth every morning. PAROXETINE (PAXIL) 40 MG TABLET Take 40 mg by mouth daily. RIZATRIPTAN (MAXALT) 10 MG TABLET TAKE 1 TABLET BY MOUTH NEEDED FOR MIGRAINE HEADACHE. TIZANIDINE (ZANAFLEX) 4 MG TABLET Take 4 mg by mouth daily. VITAMIN D PO Take 1 tablet by mouth before bedtime. Modified Medications No medications on file Discontinued Medications No medications on file Will set reminder on the phone for meals I spend a total of 20 minutes on the same day of the visit in discussing/counseling the patient regarding the diet and exercise in the preparation for weight loss surgery.Education on the meal plan and 7 rules of eating is provided. Meal prep is encouraged as a foundation of the meal plan. Food journal is encouraged as a feedback system before and after bariatric surgery. Counseling on no nicotine/alcohol before and after surgery. Exercise and its role in the preparation for weight loss surgery is explained. Is associated with obesity and weight loss is discussed as a treatment option for Full chart review was performed.Clinical documentation is updated and completed. documented in this encounter 08-16-2024 Note [facility] SURGICAL WEIGHT LOSS MANAGEMENT PROGRAM PROGRESS NOTE FOLLOW UP Patient: Salma Browning Date of : 1975 Service Date: 08/16/2024 Pre-Op Medical Visit number: 2 of 6 Follow Up Weight Metrics Last Three Weights Including Today's Weight: Wt Readings from Last 3 Encounters: 08/16/24 273 lb 9.6 oz (124 kg) 07/14/24 277 lb 6.4 oz (126 kg) 03/10/24 270 lb (122 kg) Today's BMI: BMI: 46.96 %EBWL: % EBWL: 3% Weight Chance Since Last Visit: Weight Change: -3.8 lbs Weight Change from Initial Pre-Op Medical/SPR Weight: Total Weight Change: -3.8 lbs Patient has the following question(s): none Falls Risk Assessment Patient doestake medications which affect BP or mental status Patient does not have newly prescribed or changed dosage of medications within past 30 days which affect BP or mental status Patient has not fallen in the past 2 months Patient does notdemonstrate unsteady gait Patient uses the following ambulatory assistive devices: none Patient states the presence of the following traits which increases risk of fall: none Patient is not on home O2 Have you received packet of information by mail from our office which includes: Surgical Checklist, lab orders and referral information? Yes Completed by: Tommy Fink MA [facility] 07-14-2024 History of Present illness Narrative [facility] SURGICAL WEIGHT LOSS MANAGEMENT PROGRAM SUPERVISED DIET AND EXERCISE ROOMING: INITIAL VISIT Patient: Salma Browning Date of : 1975 Service Date: 07/14/2024 Patient is here today to initiate physician-supervised diet and exercise as required by their insurance company prior to approval for weight loss surgery. This patient is alone for the evaluation today This is visit 1 of 6 required visits. Weight Metrics: (From Surgical Weight Loss Management) Today's Vital Signs: Non-Surgical Initial Eval Consult Date: 07/14/24 Initial Height: 5' 4 (162.6 cm) Initial Weight: 277 lb 6.4 oz (126 kg) [place] Body Weight: 131 lb (59.4 kg) Initial BMI: 47.61 Initial Body Fat %: 57.13 EBW: 146 lb (From NonSurgical Weight Loss Tracker) Falls Risk Assessment Patient does take medications which affect BP or mental status Patient does not have newly prescribed or changed dosage of medications within past 30 days which affect BP or mental status Patient has not fallen in the past 2 months Patient uses the following ambulatory assistive devices: none Patient states the presence of the following traits which increases risk of fall: none Patient is noton home O2 Have you received packet of information by mail from our office which includes: Surgical Checklist, lab orders & referral information? Yes Completed by: Roxi Sunshine MA [facility] SURGICAL WEIGHT LOSS MANAGEMENT PROGRAM PHYSICIAN SUPERVISED DIET AND EXERCISE SURGICAL PREPARATORY REGIMEN PROGRESS NOTE reEVALUATION Patient: Salma Browning Service Date: 07/14/24 Date of : 1975 Navigation Plan: Patient History/Assessment Summary: The patient is a pleasant 49 y.o. year old female, who stands Height: 5' 4 (162.6 cm) tall with a weight of Weight: 277 lb 6.4 oz (126 kg) pounds, resulting in a BMI of Body mass index is 47.62 kg/m . kg/m2. She has been overweight for 10+ years, has tried and failed multiple previous diet attempts, and is now in the process of undergoing evaluation for surgical treatment of their obesity. She is here today to initiate monthly physician supervised diet and exercise as part of their surgical preparatory regimen. History: Past Medical History: Diagnosis Date Anxiety Arthritis Back pain Chest pain on exertion Daytime sleepiness Depression Difficulty sleeping Dizziness Fatigue GERD (gastroesophageal reflux disease) HTN (hypertension) Joint pain, hip Joint pain, knee Memory difficulties Morbid obesity, unspecified obesity type (HCC) 12/22/2023 Muscle weakness Pain management Snoring SOBOE (shortness of breath on exertion) Past Surgical History: Procedure Laterality Date ANKLE SURGERY Left 2005 x 2 - [place] CHOLECYSTECTOMY 2014 FACIAL SURGERY (HISTORICAL) 2019 several for MRSA HYSTERECTOMY 2016 [place] SINUS SURGERY 2000 [place] TONSILLECTOMY 1987 [facility] TUMOR EXCISION 2014 Lipoma of abdomen Family History Problem Relation Name Age of Onset Diabetes Mother Hypertension Mother Obesity Mother Hypertension Father Obesity Sister Diabetes Brother Hypertension Brother Obesity Brother Hypertension Maternal Grandmother Diabetes Maternal Grandmother Obesity Maternal Grandmother Heart disease Maternal Grandfather Hypertension Maternal Grandfather Diabetes Maternal Grandfather Obesity Maternal Grandfather Social History Tobacco Use Smoking status: Never Smokeless tobacco: Never Substance Use Topics Alcohol use: Yes Alcohol/week: 2.0 standard drinks of alcohol Types: 2 Cans of beer per week Comment: 2 beers monthly This patient's excess weight is causing the following co-morbid conditions at this time:HTN Initial Diet & Exercise/SPR Visit Weight Metrics: Date of Initial Diet & Exercise Visit: Consult Date: 07/14/24 Initial Weight: Initial Weight: 277 lb 6.4 oz (126 kg) Initial BMI: Initial BMI: 47.61 [place] Body Weight: [place] Body Weight: 131 lb (59.4 kg) Excess Body Weight: EBW: 146 lb General: This patient is alert and oriented X3 Physical Examination: BP (!) 139/99 Pulse 71 Ht 5' 4 (1.626 m) Wt 277 lb 6.4 oz (126 kg) BMI 47.62 kg/m General: This patient is obese, and is in no apparent distress. Psychological: Patient is awake, alert and oriented to person, place and time Patient's mood is normal affect Current Diet This patient s current diet is: 80% meal plan Reviewed PAST DIET HISTORY FORM and CURRENT DIET HISTORY FORM with patient (located in [employer] [facility]) Her diet contains adequate amounts of protein, adequate amounts of healthy fats, adequate amounts of green, leafy vegetables, and adequate amounts of fruits. Her comfort foods include: none Current Activity This patient currently does not exercise.walking daily Current Eating Behaviors This patients demonstrates the following behaviors as they relate to her eating: structured She eats approximately 3 times per day. Her last meal/snack was at 6-7 PM. Plan: Diagnosis Managing: HTN: stable. continued medical management, DE and plan for metabolic weight loss and surgery. Advised patient that She must adhere to regular monthly visits to meet the requirements of her insurance company. Additionally, She must lose approximately one pound per month to demonstrate readiness for the changes that will be required following surgery. Physician Diet Recommendations provided to patient Patient to return for follow up in one month Current Meds Patient's Medications New Prescriptions No medications on file Previous Medications ATENOLOL (TENORMIN) 50 MG TABLET Take 50 mg by mouth daily. CELECOXIB (CELEBREX) 200 MG CAPSULE Take 200 mg by mouth 2 times daily. HYDROCODONE-ACETAMINOPHEN (NORCO) 5-325 MG TABLET Take 2 tablets by mouth. HYDROXYZINE HCL (ATARAX) 25 MG TABLET Take 25 mg by mouth every 8 hours as needed. LISINOPRIL 10 MG TABLET Take 10 mg by mouth in the morning. MECLIZINE (ANTIVERT) 25 MG TABLET TAKE 1 TABLET BY MOUTH EVERY 6 HOURS NEEDED FOR DIZZINESS OMEPRAZOLE (PRILOSEC) [address] CAPSULE Take 40 mg by mouth in the morning and 40 mg in the evening. PAROXETINE (PAXIL) 20 MG TABLET Take 20 mg by mouth every morning. PAROXETINE (PAXIL) 40 MG TABLET Take 40 mg by mouth daily. RIZATRIPTAN (MAXALT) 10 MG TABLET TAKE 1 TABLET BY MOUTH NEEDED FOR MIGRAINE HEADACHE. TIZANIDINE (ZANAFLEX) 4 MG TABLET Take 4 mg by mouth daily. VITAMIN D PO Take 1 tablet by mouth before bedtime. Modified Medications No medications on file Discontinued Medications No medications on file I spent a total of 30 minutes on the day of the visit in counseling, discussing lifestyle changes that are pertinent to a successful life after bariatric surgery; and reviewing the chart including available communication from the surgeon. 1.Education on meal plan,meal structure, meal preps, shopping list 2. Discussion on elements of behavioral strategies such self-monitoring, controlling and modifying the stimuli that activate eating;slowing down the eating process;goal-setting on the process,behavioral aida and reinforcement,cognitive restructuring, problem-solving,assertiveness training. 3. Physical activity - build fitness to aerobic physical activity 150-300 min/wk and strength training 2-3 times per wk 4.Recommendation on do not use nicotine and alcohol before and after surgery is provided 5. For women of childbearing age recommendation to postpone until 12-18 month after surgery is provided 6.HTN Is associated with obesity and weight loss is discussed as a treatment option for HTN 7. Healthy lifestyle habits and their role in success after bariatric surgery discussed The patient was seen and a full chart review was performed.Clinical documentation is updated and completed. documented in this encounter 06-30-2024 Telephone encounter Note Spoke with this patient, she has been scheduled with NK on 07/14. D/E 1 of 6 06-30-2024 Miscellaneous Notes Spoke with this patient, she has been scheduled with NK on 07/14. D/E 1 of 6 Patient left vmail that she is still interested in surgery and would like to schedule an appointment. Please call her to schedule a de visit- this will now be de 1 of 6. Lvm for return call to see if pt still interested in program. Has not been seen for de in almost 2 months. Please call patient to schedule her d/e that she missed in March. Thanks! PRE-OP CHECKLIST SCANNED ORDERS MAILED Addended by: MARY VAZ on: 01/14/2024 09:03 AM Modules accepted: Orders Orders signed. Checklist completed. EGD order placed and routed to production scheduler. I have recommended proceeding with the evaluation and work-up for the primary procedure as outlined below: Dr. Winters PATIENT SUMMARY Salma Browning 48 y.o. female with Body mass index is 46.24 kg/m . Laparoscopic Eli-en-Y Gastric Bypass and Laparoscopic Liver Biopsy DM[] HTN[x] TRINA[] GERD[x] HL[] OA[x] Date of Surgery: TBD Susan Pierresimba INITIAL TESTING RESULTS Labwork [x] CMP, TSH, Fasting Lipid Profile, Mg, Zinc, Vit B1 (whole blood), Vit B12, 25-OH Vit D, Fe, Ferritin, Folate Tobacco [x] Serum Nicotine / Cotinine [] Negative [] Positive PLEASE ADD SERUM NICOTINE/COTININE WITH INITIAL LABS ON ALL LRYGB PROCEDURES EGD [x] Dx: [] GERD [x] Dyspepsia [] Other Pathology [x] H. pylori [] Negative [] Positive UGI [] [] not ordered US Abdomen [] [] not ordered Hx of Stormy TRINA eval [] [] On CPAP / Obtain settings Hematology [] [] Hypercoagulation panel Toxicology [x] [x] Urine drug screen [x] EtOH screen Addtional [x] [x] Hgb A1c INITIAL CONSULTATIONS CLEARANCE / MANAGEMENT Psychology [x] Dietitian [x] Cardiology [x] Pulmonary [x] Others [] []Heme/Onc []Psychiatry []Pain mgmt PSD [] Physician supervised diet: []None []3 mos []6 mos Preop diet [] Preop low calorie diet: []None []1 wk []2 wks FINAL PRE-OP TESTING RESULTS Labwork [x] [x]Pre-op CBC [x]BMP []Serum Nicotine / Cotinine EKG [x] CXR [x] POST-OP MEDICATIONS Ulcer Ppx [] Omeprazole 20 mg PO []QD []BID Gallstone Ppx [] Ursodiol 300 mg []BID DVT Ppx [x] DVT prophylaxis per final preop visit estimated risk Estimated calculated risk: % Schedule final pre-operative office visit with surgeon, pre-operative education class, and pre-operative exercise class prior to date of surgery ATTESTATION I reviewed with the patient the details of the proposed operation. The risks benefits and options were discussed. Risks included but were not limited to bleeding, infection, damage to other surrounding organs, cardio-pulmonary complications related to anesthesia, conversion from laparoscopic to and open procedure, the need for reoperative or endoscopic therapy, the potential for prolonged mechanical ventilation, and . All questions were fully answered to the patient's satisfaction and they wish to proceed with surgical intervention. Greater than 51% of the 45 minute visit was spent as face to face encounter, counseling the patient and discussing the risks,benefits and options of surgery as well as the perioperative care plan. The patient was seen and examined independently and relevant data including a full chart rreview was performed by myself. Patient Care Team: Susan Sevilla as PCP - General (Family Medicine) Nate Winters MD as Surgeon (General Surgery) Initial New [facility] surgical patient Navigation & Financial Counseling Discussion Patient Communication: In office SURGEON: [] ANEL [] AD [] MP [x] TB [] LM PROCEDURE: [] LRYGB [] LSG [] FLORA-S [] FLORA [] UNDECIDED [] REV: SPECIFY: Confirmed pt wants to continue with surgical program/plan [] YES [] NO (complete program withdrawal note/process) CO-MORBIDS: [] NONE [] DM []HTN [] TRINA []GERD [] OTH: PRIVATE PAY: [] NO []YES DATE OF INITIAL BENEFITS VERIFICATION: TRANSFER FU: [] YES [] NO PRIMARY INSURANCE: Payor: [facility] MEDICAID / Plan: [facility] MEDICAID ODM / Product Type: Medicaid HMO / BENEFIT ON PLAN: [] NO [] YES BENEFIT MAX: [] NO [] YES -- BENEFIT MAX: $ EMPLOYER: DIET AND EXERCISE (DE) REQUIREMENT PRIMARY [] NONE []3M [x] 6M []9M [] Medicare 4 Months [] SPR (3M) []OTHER: SECONDARY INSURANCE: BENEFIT ON PLAN: [] NO [] YES BENEFIT MAX: [] NO [] YES -- BENEFIT MAX: $ AUTH REQUIRED FROM SECONDARY [] NO [] YES DIET AND EXERCISE REQUIREMENT SECONDARY [] NONE []3M [] 6M [] Medicare 4 months [] SPR (3M) []OTHER: ___ [x] Discussed with patient: Financial cost overview (document signed and pt given copy at new pt consult visit with surgeon), Initial appointments: Bariatric Nutrition Assessment (BNA) & Diet and Exercise (DE) Patient to look for yellow envelope in mail. This yellow envelope will contain orders for labs, testing and required clearances. Pt encouraged to complete early in program to prevent delays. Encourage blood work to be draw by 1st DE appointment. [x] Reviewed OOP cost, including: [x] Overview of inpatient admission benefits - estimated inpatient co-pays, deductibles and/or co-insurance - Estimated OOP costs form reviewed with patient, and copy given to patient at new pt visit. [x] Reviewed next steps with patient: 1) Scheduled at new pt surgeon visit: Forester Aide (RD) for a Nutrition Assessment (BNA) and Pre-operative Diet and Exercise (DE) appointment #1. [x] Patient reminded to arrive 15 minutes early for check in. Late arrivals may need to be rescheduled. 2) Schedule: Diet and Exercise Apt #2 only scheduled after initial BNA and DE completed, 3) Behavioral Health apt scheduled after DE started. Reviewed rational and goal of Behavioral Health appointments. 4) [x] Reinforced need to cancel any WMI appointments 48 hours in advance. Cautioned NS/Same day cancellations may result in delay in program or program completion hold. Noted: DE series needs to be a monthly series or insurance company may require repeat of the entire series. 5) [x] Smoker/tobacco products including vaping: reviewed need for cessation before surgery clearance and life long abstinence after surgery for best outcomes. Patient navigation to surgery: [x] Explained to patient that average time from initial consult to date of surgery can be 6-8 months. - Process can take longer if there are cancelled appointments, delays in testing and/or additional clearances that needs to be completed. - Reviewed importance of patient active engagement in making and keeping appointments to keep the process moving. - Reinforced need to cancel appointments at least 48 hours in advance. Reviewed that instances of No Shows and Same Day Appointment Cancellations may result in program/surgery delay or hold. [x] Patient advised of importance of having voicemail and MyChart for office communications and lab/testing results before and after surgery. documented in this encounter 06-29-2024 Telephone encounter Note Patient left vmail that she is still interested in surgery and would like to schedule an appointment. Please call her to schedule a de visit- this will now be de 1 of 6. 06-29-2024 Miscellaneous Notes Patient left vmail that she is still interested in surgery and would like to schedule an appointment. Please call her to schedule a de visit- this will now be de 1 of 6. Lvm for return call to see if pt still interested in program. Has not been seen for de in almost 2 months. Please call patient to schedule her d/e that she missed in March. Thanks! PRE-OP CHECKLIST SCANNED ORDERS MAILED Addended by: MARY VAZ on: 01/14/2024 09:03 AM Modules accepted: Orders Orders signed. Checklist completed. EGD order placed and routed to production scheduler. I have recommended proceeding with the evaluation and work-up for the primary procedure as outlined below: Dr. Winters PATIENT SUMMARY Salma Browning 48 y.o. female with Body mass index is 46.24 kg/m . Laparoscopic Eli-en-Y Gastric Bypass and Laparoscopic Liver Biopsy DM[] HTN[x] TRINA[] GERD[x] HL[] OA[x] Date of Surgery: TBD Susan Sevilla INITIAL TESTING RESULTS Labwork [x] CMP, TSH, Fasting Lipid Profile, Mg, Zinc, Vit B1 (whole blood), Vit B12, 25-OH Vit D, Fe, Ferritin, Folate Tobacco [x] Serum Nicotine / Cotinine [] Negative [] Positive PLEASE ADD SERUM NICOTINE/COTININE WITH INITIAL LABS ON ALL LRYGB PROCEDURES EGD [x] Dx: [] GERD [x] Dyspepsia [] Other Pathology [x] H. pylori [] Negative [] Positive UGI [] [] not ordered US Abdomen [] [] not ordered Hx of Stormy TRINA eval [] [] On CPAP / Obtain settings Hematology [] [] Hypercoagulation panel Toxicology [x] [x] Urine drug screen [x] EtOH screen Addtional [x] [x] Hgb A1c INITIAL CONSULTATIONS CLEARANCE / MANAGEMENT Psychology [x] Dietitian [x] Cardiology [x] Pulmonary [x] Others [] []Heme/Onc []Psychiatry []Pain mgmt PSD [] Physician supervised diet: []None []3 mos []6 mos Preop diet [] Preop low calorie diet: []None []1 wk []2 wks FINAL PRE-OP TESTING RESULTS Labwork [x] [x]Pre-op CBC [x]BMP []Serum Nicotine / Cotinine EKG [x] CXR [x] POST-OP MEDICATIONS Ulcer Ppx [] Omeprazole 20 mg PO []QD []BID Gallstone Ppx [] Ursodiol 300 mg []BID DVT Ppx [x] DVT prophylaxis per final preop visit estimated risk Estimated calculated risk: % Schedule final pre-operative office visit with surgeon, pre-operative education class, and pre-operative exercise class prior to date of surgery ATTESTATION I reviewed with the patient the details of the proposed operation. The risks benefits and options were discussed. Risks included but were not limited to bleeding, infection, damage to other surrounding organs, cardio-pulmonary complications related to anesthesia, conversion from laparoscopic to and open procedure, the need for reoperative or endoscopic therapy, the potential for prolonged mechanical ventilation, and . All questions were fully answered to the patient's satisfaction and they wish to proceed with surgical intervention. Greater than 51% of the 45 minute visit was spent as face to face encounter, counseling the patient and discussing the risks,benefits and options of surgery as well as the perioperative care plan. The patient was seen and examined independently and relevant data including a full chart rreview was performed by myself. Patient Care Team: Susan Sevilla as PCP - General (Family Medicine) Nate Winters MD as Surgeon (General Surgery) Initial New [facility] surgical patient Navigation & Financial Counseling Discussion Patient Communication: In office SURGEON: [] ANEL [] AD [] MP [x] TB [] LM PROCEDURE: [] LRYGB [] LSG [] FLORA-S [] FLORA [] UNDECIDED [] REV: SPECIFY: Confirmed pt wants to continue with surgical program/plan [] YES [] NO (complete program withdrawal note/process) CO-MORBIDS: [] NONE [] DM []HTN [] TRINA []GERD [] OTH: PRIVATE PAY: [] NO []YES DATE OF INITIAL BENEFITS VERIFICATION: TRANSFER FU: [] YES [] NO PRIMARY INSURANCE: Payor: [facility] MEDICAID / Plan[facility] ODM / Product Type: Medicaid HMO / BENEFIT ON PLAN: [] NO [] YES BENEFIT MAX: [] NO [] YES -- BENEFIT MAX: $ EMPLOYER: DIET AND EXERCISE (DE) REQUIREMENT PRIMARY [] NONE []3M [x] 6M []9M [] Medicare 4 Months [] SPR (3M) []OTHER: SECONDARY INSURANCE: BENEFIT ON PLAN: [] NO [] YES BENEFIT MAX: [] NO [] YES -- BENEFIT MAX: $ AUTH REQUIRED FROM SECONDARY [] NO [] YES DIET AND EXERCISE REQUIREMENT SECONDARY [] NONE []3M [] 6M [] Medicare 4 months [] SPR (3M) []OTHER: ___ [x] Discussed with patient: Financial cost overview (document signed and pt given copy at new pt consult visit with surgeon), Initial appointments: Bariatric Nutrition Assessment (BNA) & Diet and Exercise (DE) Patient to look for yellow envelope in mail. This yellow envelope will contain orders for labs, testing and required clearances. Pt encouraged to complete early in program to prevent delays. Encourage blood work to be draw by 1st DE appointment. [x] Reviewed OOP cost, including: [x] Overview of inpatient admission benefits - estimated inpatient co-pays, deductibles and/or co-insurance - Estimated OOP costs form reviewed with patient, and copy given to patient at new pt visit. [x] Reviewed next steps with patient: 1) Scheduled at new pt surgeon visit: Forester Aide (RD) for a Nutrition Assessment (BNA) and Pre-operative Diet and Exercise (DE) appointment #1. [x] Patient reminded to arrive 15 minutes early for check in. Late arrivals may need to be rescheduled. 2) Schedule: Diet and Exercise Apt #2 only scheduled after initial BNA and DE completed, 3) Behavioral Health apt scheduled after DE started. Reviewed rational and goal of Behavioral Health appointments. 4) [x] Reinforced need to cancel any WMI appointments 48 hours in advance. Cautioned NS/Same day cancellations may result in delay in program or program completion hold. Noted: DE series needs to be a monthly series or insurance company may require repeat of the entire series. 5) [x] Smoker/tobacco products including vaping: reviewed need for cessation before surgery clearance and life long abstinence after surgery for best outcomes. Patient navigation to surgery: [x] Explained to patient that average time from initial consult to date of surgery can be 6-8 months. - Process can take longer if there are cancelled appointments, delays in testing and/or additional clearances that needs to be completed. - Reviewed importance of patient active engagement in making and keeping appointments to keep the process moving. - Reinforced need to cancel appointments at least 48 hours in advance. Reviewed that instances of No Shows and Same Day Appointment Cancellations may result in program/surgery delay or hold. [x] Patient advised of importance of having voicemail and MyChart for office communications and lab/testing results before and after surgery. documented in this encounter 05-25-2024 Telephone encounter Note The following approved medication requests have been transmitted electronically. Requested Prescriptions Pending Prescriptions Disp Refills PARoxetine (PAXIL) 20 mg tablet 30 tablet 2 Sig: Take 1 tablet by mouth once daily. Take with additional 40 mg tablet. rizatriptan (MAXALT) 10 mg tablet 6 tablet 5 Sig: Take 1 tablet by mouth as needed for migraine headache (see administration instructions). omeprazole (PRILOSEC) 40 mg capsule 60 capsule 5 Sig: Take 1 capsule by mouth two times a day. Neal Gomez APRN.CNP [facility] 05-25-2024 Miscellaneous Notes The following approved medication requests have been transmitted electronically. Requested Prescriptions Pending Prescriptions Disp Refills PARoxetine (PAXIL) 20 mg tablet 30 tablet 2 Sig: Take 1 tablet by mouth once daily. Take with additional 40 mg tablet. rizatriptan (MAXALT) 10 mg tablet 6 tablet 5 Sig: Take 1 tablet by mouth as needed for migraine headache (see administration instructions). omeprazole (PRILOSEC) 40 mg capsule 60 capsule 5 Sig: Take 1 capsule by mouth two times a day. Neal Gomez APRN.CNP Prescription Refill Information The patient has been identified by name and date of : Yes Caregiver verified no other encounters exist for this prescription request: Yes Caregiver confirmed with patient/requestor that no other refills are due, in the near future, with this provider at this time: Yes The last office visit in the department: 12/03/23 Does the patient have a future office visit with this provider/department: No Requested Prescriptions Pending Prescriptions Disp Refills PARoxetine (PAXIL) 20 mg tablet 30 tablet 2 Sig: Take 1 tablet by mouth once daily. Take with additional 40 mg tablet. rizatriptan (MAXALT) 10 mg tablet 6 tablet 5 Sig: Take 1 tablet by mouth as needed for migraine headache (see administration instructions). omeprazole (PRILOSEC) 40 mg capsule 60 capsule 5 Sig: Take 1 capsule by mouth two times a day. Guanakito Dozier LPN May 24, 2024 3:32 PM documented in this encounter [facility] 05-24-2024 Telephone encounter Note Prescription Refill Information The patient has been identified by name and date of : Yes Caregiver verified no other encounters exist for this prescription request: Yes Caregiver confirmed with patient/requestor that no other refills are due, in the near future, with this provider at this time: Yes The last office visit in the department: 12/03/23 Does the patient have a future office visit with this provider/department: No Requested Prescriptions Pending Prescriptions Disp Refills PARoxetine (PAXIL) 20 mg tablet 30 tablet 2 Sig: Take 1 tablet by mouth once daily. Take with additional 40 mg tablet. rizatriptan (MAXALT) 10 mg tablet 6 tablet 5 Sig: Take 1 tablet by mouth as needed for migraine headache (see administration instructions). omeprazole (PRILOSEC) 40 mg capsule 60 capsule 5 Sig: Take 1 capsule by mouth two times a day. Guanakito Dozier LPN May 24, 2024 3:32 PM [facility] 05-24-2024 Telephone encounter Note The following approved medication requests have been transmitted electronically. Requested Prescriptions Pending Prescriptions Disp Refills PARoxetine (PAXIL) 40 mg tablet 30 tablet 5 Sig: Take 1 tablet by mouth once daily. tiZANidine (ZANAFLEX) 4 mg tablet 30 tablet 5 Sig: Take 1 tablet by mouth once daily. Neal Gomez APRN.NORI [facility] 05-24-2024 Miscellaneous Notes The following approved medication requests have been transmitted electronically. Requested Prescriptions Pending Prescriptions Disp Refills PARoxetine (PAXIL) 40 mg tablet 30 tablet 5 Sig: Take 1 tablet by mouth once daily. tiZANidine (ZANAFLEX) 4 mg tablet 30 tablet 5 Sig: Take 1 tablet by mouth once daily. Neal Gomez APRN.NORI Prescription Refill Information The patient has been identified by name and date of : Yes Caregiver verified no other encounters exist for this prescription request: Yes Caregiver confirmed with patient/requestor that no other refills are due, in the near future, with this provider at this time: Yes The last office visit in the department: 12/03/23 Does the patient have a future office visit with this provider/department: No, pt was supposed to follow up in January for BP check but cancelled. MC message to pt advising of need for appt. Requested Prescriptions Pending Prescriptions Disp Refills PARoxetine (PAXIL) 40 mg tablet 30 tablet 5 Sig: Take 1 tablet by mouth once daily. tiZANidine (ZANAFLEX) 4 mg tablet 30 tablet 5 Sig: Take 1 tablet by mouth once daily. Guanakito Dozier LPN May 24, 2024 12:40 PM documented in this encounter [facility] 05-24-2024 Telephone encounter Note Prescription Refill Information The patient has been identified by name and date of : Yes Caregiver verified no other encounters exist for this prescription request: Yes Caregiver confirmed with patient/requestor that no other refills are due, in the near future, with this provider at this time: Yes The last office visit in the department: 12/03/23 Does the patient have a future office visit with this provider/department: No, pt was supposed to follow up in January for BP check but cancelled. MC message to pt advising of need for appt. Requested Prescriptions Pending Prescriptions Disp Refills PARoxetine (PAXIL) 40 mg tablet 30 tablet 5 Sig: Take 1 tablet by mouth once daily. tiZANidine (ZANAFLEX) 4 mg tablet 30 tablet 5 Sig: Take 1 tablet by mouth once daily. Guanakito Dozier LPN May 24, 2024 12:40 PM [facility] 05-02-2024 Telephone encounter Note Lvm for return call to see if pt still interested in program. Has not been seen for de in almost 2 months. 05-02-2024 Miscellaneous Notes Lvm for return call to see if pt still interested in program. Has not been seen for de in almost 2 months. Please call patient to schedule her d/e that she missed in March. Thanks! PRE-OP CHECKLIST SCANNED ORDERS MAILED Addended by: MARY VAZ on: 01/14/2024 09:03 AM Modules accepted: Orders Orders signed. Checklist completed. EGD order placed and routed to production scheduler. I have recommended proceeding with the evaluation and work-up for the primary procedure as outlined below: Dr. Winters PATIENT SUMMARY Salma Nam 48 y.o. female with Body mass index is 46.24 kg/m . Laparoscopic Eli-en-Y Gastric Bypass and Laparoscopic Liver Biopsy DM[] HTN[x] TRINA[] GERD[x] HL[] OA[x] Date of Surgery: TBD Susan Pierresimba INITIAL TESTING RESULTS Labwork [x] CMP, TSH, Fasting Lipid Profile, Mg, Zinc, Vit B1 (whole blood), Vit B12, 25-OH Vit D, Fe, Ferritin, Folate Tobacco [x] Serum Nicotine / Cotinine [] Negative [] Positive PLEASE ADD SERUM NICOTINE/COTININE WITH INITIAL LABS ON ALL LRYGB PROCEDURES EGD [x] Dx: [] GERD [x] Dyspepsia [] Other Pathology [x] H. pylori [] Negative [] Positive UGI [] [] not ordered US Abdomen [] [] not ordered Hx of Stormy TRINA eval [] [] On CPAP / Obtain settings Hematology [] [] Hypercoagulation panel Toxicology [x] [x] Urine drug screen [x] EtOH screen Addtional [x] [x] Hgb A1c INITIAL CONSULTATIONS CLEARANCE / MANAGEMENT Psychology [x] Dietitian [x] Cardiology [x] Pulmonary [x] Others [] []Heme/Onc []Psychiatry []Pain mgmt PSD [] Physician supervised diet: []None []3 mos []6 mos Preop diet [] Preop low calorie diet: []None []1 wk []2 wks FINAL PRE-OP TESTING RESULTS Labwork [x] [x]Pre-op CBC [x]BMP []Serum Nicotine / Cotinine EKG [x] CXR [x] POST-OP MEDICATIONS Ulcer Ppx [] Omeprazole 20 mg PO []QD []BID Gallstone Ppx [] Ursodiol 300 mg []BID DVT Ppx [x] DVT prophylaxis per final preop visit estimated risk Estimated calculated risk: % Schedule final pre-operative office visit with surgeon, pre-operative education class, and pre-operative exercise class prior to date of surgery ATTESTATION I reviewed with the patient the details of the proposed operation. The risks benefits and options were discussed. Risks included but were not limited to bleeding, infection, damage to other surrounding organs, cardio-pulmonary complications related to anesthesia, conversion from laparoscopic to and open procedure, the need for reoperative or endoscopic therapy, the potential for prolonged mechanical ventilation, and . All questions were fully answered to the patient's satisfaction and they wish to proceed with surgical intervention. Greater than 51% of the 45 minute visit was spent as face to face encounter, counseling the patient and discussing the risks,benefits and options of surgery as well as the perioperative care plan. The patient was seen and examined independently and relevant data including a full chart rreview was performed by myself. Patient Care Team: Susan Sevilla as PCP - General (Family Medicine) Nate Winters MD as Surgeon (General Surgery) Initial New [facility] surgical patient Navigation & Financial Counseling Discussion Patient Communication: In office SURGEON: [] ANEL [] AD [] MP [x] TB [] LM PROCEDURE: [] LRYGB [] LSG [] FLORA-S [] FLORA [] UNDECIDED [] REV: SPECIFY: Confirmed pt wants to continue with surgical program/plan [] YES [] NO (complete program withdrawal note/process) CO-MORBIDS: [] NONE [] DM []HTN [] TRINA []GERD [] OTH: PRIVATE PAY: [] NO []YES DATE OF INITIAL BENEFITS VERIFICATION: TRANSFER FU: [] YES [] NO PRIMARY INSURANCE: Payor: [employer] / Plan: [employer] ODM / Product Type: Medicaid HMO / BENEFIT ON PLAN: [] NO [] YES BENEFIT MAX: [] NO [] YES -- BENEFIT MAX: $ EMPLOYER: DIET AND EXERCISE (DE) REQUIREMENT PRIMARY [] NONE []3M [x] 6M []9M [] Medicare 4 Months [] SPR (3M) []OTHER: SECONDARY INSURANCE: BENEFIT ON PLAN: [] NO [] YES BENEFIT MAX: [] NO [] YES -- BENEFIT MAX: $ AUTH REQUIRED FROM SECONDARY [] NO [] YES DIET AND EXERCISE REQUIREMENT SECONDARY [] NONE []3M [] 6M [] Medicare 4 months [] SPR (3M) []OTHER: ___ [x] Discussed with patient: Financial cost overview (document signed and pt given copy at new pt consult visit with surgeon), Initial appointments: Bariatric Nutrition Assessment (BNA) & Diet and Exercise (DE) Patient to look for yellow envelope in mail. This yellow envelope will contain orders for labs, testing and required clearances. Pt encouraged to complete early in program to prevent delays. Encourage blood work to be draw by 1st DE appointment. [x] Reviewed OOP cost, including: [x] Overview of inpatient admission benefits - estimated inpatient co-pays, deductibles and/or co-insurance - Estimated OOP costs form reviewed with patient, and copy given to patient at new pt visit. [x] Reviewed next steps with patient: 1) Scheduled at new pt surgeon visit: Forester Aide (RD) for a Nutrition Assessment (BNA) and Pre-operative Diet and Exercise (DE) appointment #1. [x] Patient reminded to arrive 15 minutes early for check in. Late arrivals may need to be rescheduled. 2) Schedule: Diet and Exercise Apt #2 only scheduled after initial BNA and DE completed, 3) Behavioral Health apt scheduled after DE started. Reviewed rational and goal of Behavioral Health appointments. 4) [x] Reinforced need to cancel any WMI appointments 48 hours in advance. Cautioned NS/Same day cancellations may result in delay in program or program completion hold. Noted: DE series needs to be a monthly series or insurance company may require repeat of the entire series. 5) [x] Smoker/tobacco products including vaping: reviewed need for cessation before surgery clearance and life long abstinence after surgery for best outcomes. Patient navigation to surgery: [x] Explained to patient that average time from initial consult to date of surgery can be 6-8 months. - Process can take longer if there are cancelled appointments, delays in testing and/or additional clearances that needs to be completed. - Reviewed importance of patient active engagement in making and keeping appointments to keep the process moving. - Reinforced need to cancel appointments at least 48 hours in advance. Reviewed that instances of No Shows and Same Day Appointment Cancellations may result in program/surgery delay or hold. [x] Patient advised of importance of having voicemail and MyChart for office communications and lab/testing results before and after surgery. documented in this encounter 04-10-2024 Telephone encounter Note Please call patient to schedule her d/e that she missed in March. Thanks! 04-10-2024 Miscellaneous Notes Please call patient to schedule her d/e that she missed in March. Thanks! PRE-OP CHECKLIST SCANNED ORDERS MAILED Addended by: MARY VAZ on: 01/14/2024 09:03 AM Modules accepted: Orders Orders signed. Checklist completed. EGD order placed and routed to production scheduler. I have recommended proceeding with the evaluation and work-up for the primary procedure as outlined below: Dr. Winters PATIENT SUMMARY Salmastarla Browning 48 y.o. female with Body mass index is 46.24 kg/m . Laparoscopic Eli-en-Y Gastric Bypass and Laparoscopic Liver Biopsy DM[] HTN[x] TRINA[] GERD[x] HL[] OA[x] Date of Surgery: TBD [facility] INITIAL TESTING RESULTS Labwork [x] CMP, TSH, Fasting Lipid Profile, Mg, Zinc, Vit B1 (whole blood), Vit B12, 25-OH Vit D, Fe, Ferritin, Folate Tobacco [x] Serum Nicotine / Cotinine [] Negative [] Positive PLEASE ADD SERUM NICOTINE/COTININE WITH INITIAL LABS ON ALL LRYGB PROCEDURES EGD [x] Dx: [] GERD [x] Dyspepsia [] Other Pathology [x] H. pylori [] Negative [] Positive UGI [] [] not ordered US Abdomen [] [] not ordered Hx of Stormy TRINA eval [] [] On CPAP / Obtain settings Hematology [] [] Hypercoagulation panel Toxicology [x] [x] Urine drug screen [x] EtOH screen Addtional [x] [x] Hgb A1c INITIAL CONSULTATIONS CLEARANCE / MANAGEMENT Psychology [x] Dietitian [x] Cardiology [x] Pulmonary [x] Others [] []Heme/Onc []Psychiatry []Pain mgmt PSD [] Physician supervised diet: []None []3 mos []6 mos Preop diet [] Preop low calorie diet: []None []1 wk []2 wks FINAL PRE-OP TESTING RESULTS Labwork [x] [x]Pre-op CBC [x]BMP []Serum Nicotine / Cotinine EKG [x] CXR [x] POST-OP MEDICATIONS Ulcer Ppx [] Omeprazole 20 mg PO []QD []BID Gallstone Ppx [] Ursodiol 300 mg []BID DVT Ppx [x] DVT prophylaxis per final preop visit estimated risk Estimated calculated risk: % Schedule final pre-operative office visit with surgeon, pre-operative education class, and pre-operative exercise class prior to date of surgery ATTESTATION I reviewed with the patient the details of the proposed operation. The risks benefits and options were discussed. Risks included but were not limited to bleeding, infection, damage to other surrounding organs, cardio-pulmonary complications related to anesthesia, conversion from laparoscopic to and open procedure, the need for reoperative or endoscopic therapy, the potential for prolonged mechanical ventilation, and . All questions were fully answered to the patient's satisfaction and they wish to proceed with surgical intervention. Greater than 51% of the 45 minute visit was spent as face to face encounter, counseling the patient and discussing the risks,benefits and options of surgery as well as the perioperative care plan. The patient was seen and examined independently and relevant data including a full chart rreview was performed by myself. Patient Care Team: Susan Sevilla as PCP - General (Family Medicine) Nate Winters MD as Surgeon (General Surgery) Initial New [facility] surgical patient Navigation & Financial Counseling Discussion Patient Communication: In office SURGEON: [] JRossy [] AD [] MP [x] TB [] LM PROCEDURE: [] LRYGB [] LSG [] FLORA-S [] FLORA [] UNDECIDED [] REV: SPECIFY: Confirmed pt wants to continue with surgical program/plan [] YES [] NO (complete program withdrawal note/process) CO-MORBIDS: [] NONE [] DM []HTN [] TRINA []GERD [] OTH: PRIVATE PAY: [] NO []YES DATE OF INITIAL BENEFITS VERIFICATION: TRANSFER FU: [] YES [] NO PRIMARY INSURANCE: Payor: [employer] / Plan: [employer] ODM / Product Type: Medicaid HMO / BENEFIT ON PLAN: [] NO [] YES BENEFIT MAX: [] NO [] YES -- BENEFIT MAX: $ EMPLOYER: DIET AND EXERCISE (DE) REQUIREMENT PRIMARY [] NONE []3M [x] 6M []9M [] Medicare 4 Months [] SPR (3M) []OTHER: SECONDARY INSURANCE: BENEFIT ON PLAN: [] NO [] YES BENEFIT MAX: [] NO [] YES -- BENEFIT MAX: $ AUTH REQUIRED FROM SECONDARY [] NO [] YES DIET AND EXERCISE REQUIREMENT SECONDARY [] NONE []3M [] 6M [] Medicare 4 months [] SPR (3M) []OTHER: ___ [x] Discussed with patient: Financial cost overview (document signed and pt given copy at new pt consult visit with surgeon), Initial appointments: Bariatric Nutrition Assessment (BNA) & Diet and Exercise (DE) Patient to look for yellow envelope in mail. This yellow envelope will contain orders for labs, testing and required clearances. Pt encouraged to complete early in program to prevent delays. Encourage blood work to be draw by 1st DE appointment. [x] Reviewed OOP cost, including: [x] Overview of inpatient admission benefits - estimated inpatient co-pays, deductibles and/or co-insurance - Estimated OOP costs form reviewed with patient, and copy given to patient at new pt visit. [x] Reviewed next steps with patient: 1) Scheduled at new pt surgeon visit: Forester Aide (RD) for a Nutrition Assessment (BNA) and Pre-operative Diet and Exercise (DE) appointment #1. [x] Patient reminded to arrive 15 minutes early for check in. Late arrivals may need to be rescheduled. 2) Schedule: Diet and Exercise Apt #2 only scheduled after initial BNA and DE completed, 3) Behavioral Health apt scheduled after DE started. Reviewed rational and goal of Behavioral Health appointments. 4) [x] Reinforced need to cancel any WMI appointments 48 hours in advance. Cautioned NS/Same day cancellations may result in delay in program or program completion hold. Noted: DE series needs to be a monthly series or insurance company may require repeat of the entire series. 5) [x] Smoker/tobacco products including vaping: reviewed need for cessation before surgery clearance and life long abstinence after surgery for best outcomes. Patient navigation to surgery: [x] Explained to patient that average time from initial consult to date of surgery can be 6-8 months. - Process can take longer if there are cancelled appointments, delays in testing and/or additional clearances that needs to be completed. - Reviewed importance of patient active engagement in making and keeping appointments to keep the process moving. - Reinforced need to cancel appointments at least 48 hours in advance. Reviewed that instances of No Shows and Same Day Appointment Cancellations may result in program/surgery delay or hold. [x] Patient advised of importance of having voicemail and MyChart for office communications and lab/testing results before and after surgery. documented in this encounter 03-14-2024 History of Present illness Narrative Radiology Service Progress Note PATIENT NAME: Salma Browning DATE OF SERVICE: March 14, 2024 TIME: 10:51 AM PATIENT IDENTITY VERIFICATION COMPLETED USING TWO (2) IDENTIFIERS: Name and Date of confirmed by patient verbally. FALL SCREENING: Has the patient had 2 falls in the last year or 1 fall with injury or currently using an Ambulatory Assistive Device (Walker, Cane, Wheelchair, Crutches, etc.)? No PATIENT GENDER DATA: Female. status: : No status: NO. PATIENT RELEVANT IMPLANT DATA REVIEWED: Not Applicable PATIENT PRESENTS WITH AN IMPLANTABLE OR ATTACHED PACKING ROOM WORKER: No RADIOLOGY DEPARTMENT: General X-ray: Exam(s) Completed: Chest X-Ray PERIPHERAL IV DATA: Not applicable SIGNED BY: RT Maria Eugenia(Ellyn) March 14, 2024 10:51 AM documented in this encounter [facility] 03-14-2024 Note HNO ID: [id number] Author: AAYUSH DOZIER RT(R) Service: Radiology Author Type: Technologist Type: Progress Notes Filed: 03/14/2024 10:57 Note Text: Radiology Service Progress Note PATIENT NAME: Salma Browning DATE OF SERVICE: March 14, 2024 TIME: 10:51 AM PATIENT IDENTITY VERIFICATION COMPLETED USING TWO (2) IDENTIFIERS: Name and Date of confirmed by patient verbally. FALL SCREENING: Has the patient had 2 falls in the last year or 1 fall with injury or currently using an Ambulatory Assistive Device (Walker, Cane, Wheelchair, Crutches, etc.)? No PATIENT GENDER DATA: Female. status: : No status: NO. PATIENT RELEVANT IMPLANT DATA REVIEWED: Not Applicable PATIENT PRESENTS WITH AN IMPLANTABLE OR ATTACHED PACKING ROOM WORKER: No RADIOLOGY DEPARTMENT: General X-ray: Exam(s) Completed: Chest X-Ray PERIPHERAL IV DATA: Not applicable SIGNED BY: RT Maria Eugenia(Ellyn) March 14, 2024 10:[address] [facility] 03-14-2024 Note HNO ID: [id number] Author: JOHN NIEVES PA Service: ? Author Type: Physician Bandoleer Packer Type: Progress Notes Filed: 03/14/2024 11:10 Note Text: This note was created using [employer]. Subjective Salma Browning is a 49 year old female. HPI 49-year-old female presents for cough, congestion, sore throat, fatigue x 4 days. Patient states on Wednesday she starting sore throat. She started feeling worse over the weekend. She states that she has a productive cough. She states that she has pain in her chest due to coughing so much. She states that she feels short of breath when she is in coughing fits. She states she coughs all night long and throughout the day. She has no history of COPD or asthma. She has taken [id number] medications without improvement in symptoms. She has not any vomiting or diarrhea. No fevers. No other complaint. PAST MEDICAL HISTORY Diagnosis Date Abnormal antibody titer On type and screen during #2. Repeat nl, no major antibodies, negative repeat antibody screen. ?False positive. Abnormal Pap smear of cervix Acute gastritis without mention of hemorrhage Atrophic gastritis 2010 CHOLELITHIASIS See also GALLBLADDER 08/26/2005 Congenital choledochal cyst Depression Depressive disorder, not elsewhere classified Diaphragmatic hernia without mention of obstruction or gangrene Esophagitis, unspecified Fatty tumor of liver 2005 FX LATERAL MALLEOLUS-CLOSE 09/03/2008 GERD (gastroesophageal reflux disease) 03/15/2012 On 3 meds in . ?hiatal hernia. 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 Dr Rivera Pre-eclampsia added to pre-existing hypertension 11/17/2014 Unspecified hemorrhoids without mention of complication Hemorrhoids PAST SURGICAL HISTORY Procedure Laterality Date CHOLECYSTECTOMY COLONOSCOPY FLX DX W/COLLJ SPEC WHEN PFRMD 05/09/2019 Colonoscopy EGD TRANSORAL BIOPSY SINGLE/MULTIPLE 09/22/10 ESOPHAGOGASTRODUODENOSCOPY TRANSORAL DIAGNOSTIC 05/09/2019 EGD HYSTERECTOMY HX 2017 [facility] PAST SURGICAL HISTORY OF Tumor removed from stomach, benign per pt PAST SURGICAL HISTORY OF 03/2009 left ankle fracture REM LESIO TRUNK,ARM,LEG 1.1 -2.0CM REMOVAL DEEP IMPLANT 12/06/09 Performed by KATHI POWELL at [facility] RPR DISLOC PERONEAL TENDON W/O FIBULAR OSTEOTOMY 12/06/09 Performed by KATHI POWELL at [facility] SIGMOIDOSCOPY FLX DX W/COLLJ SPEC BR/WA IF PFRMD 06/2004 Sigmoidoscopy, flexible SINUSOTOMY MAXILLARY ANTROTOMY INTRANASAL Byrd-Elliott sinusotomy TONSILLECTOMY PRIMARY/SECONDARY Tonsillectomy VAGINOSCOPY ALLERGIES Bupropion MEDICATIONS rizatriptan (MAXALT) 10 mg tablet Take 1 tablet (10 mg) by mouth as needed for migraine headache (see administration instructions). omeprazole (PRILOSEC) 40 mg capsule Take 1 capsule by mouth two times a day. hydrOXYzine HCl (ATARAX) 25 mg tablet Take 1 tablet by mouth three times a day as needed for anxiety. PARoxetine (PAXIL) 20 mg tablet Take 1 tablet by mouth once daily. Take with additional 40 mg tablet. lisinopril (ZESTRIL) 10 mg tablet Take 1 tablet by mouth once daily. topiramate (TOPAMAX) 25 mg capsule Take 1 capsule by mouth two times a day. tiZANidine (ZANAFLEX) 4 mg tablet Take 1 tablet by mouth once daily. PARoxetine (PAXIL) 40 mg tablet Take 1 tablet by mouth once daily. Cholecalciferol, Vitamin D3, (DIALYVITE VITAMIN D) 125 mcg (5,000 unit) cap Take 1 capsule by mouth once daily. celecoxib (CELEBREX) 200 mg capsule Take 1 capsule by mouth twice daily NIFEdipine XL (ADALAT CC) 30 mg 24 hr tablet Take 1 tablet by mouth once daily. Pseudoephedrine-guaiFENesin (MUCINEX D MAXIMUM STRENGTH) 120-1,200 mg tab ER 12 hr Take 1 tablet by mouth once daily as needed (congestion). (Patient not taking: Reported on 12/03/2023) benzonatate (TESSALON PERLES) 100 mg capsule Take 1 capsule by mouth three times a day as needed for cough. (Patient not taking: Reported on 10/20/2023) FAMILY HISTORY Problem Relation Age of Onset Diabetes Mother other (colon polyps [Other]) Father no cancer found Heart Father Hypertension Father Ischemic Heart Disease Father Coronary Artery Disease Father COPD Father Thyroid Brother Social History Tobacco Use Smoking status: Never Smokeless tobacco: Never Vaping Use Vaping status: Never Used Substance Use Topics Alcohol use: Yes Comment: rarely, 1-2 weekends per month 5 drinks (prior to ) Drug use: No Review of Systems Constitutional: Positive for fatigue. Negative for chills and fever. HENT: Positive for congestion and sore throat. Negative for ear pain. Respiratory: Positive for cough and shortness of breath. Cardiovascular: Positive for chest pain (With cough). Gastrointestinal: Negative for diarrhea and vomiting. Objective BP 122/76 Pulse 94 Temp 36.7 ?C (98.1 ?F) (more content not included)... [facility] 03-14-2024 History of Present illness Narrative This note was created using [employer]. Subjective Salma Browning is a 49 year old female. HPI 49-year-old female presents for cough, congestion, sore throat, fatigue x 4 days. Patient states on Wednesday she starting sore throat. She started feeling worse over the weekend. She states that she has a productive cough. She states that she has pain in her chest due to coughing so much. She states that she feels short of breath when she is in coughing fits. She states she coughs all night long and throughout the day. She has no history of COPD or asthma. She has taken [id number] medications without improvement in symptoms. She has not any vomiting or diarrhea. No fevers. No other complaint. PAST MEDICAL HISTORY Diagnosis Date Abnormal antibody titer On type and screen during #2. Repeat nl, no major antibodies, negative repeat antibody screen. ?False positive. Abnormal Pap smear of cervix Acute gastritis without mention of hemorrhage Atrophic gastritis 2010 CHOLELITHIASIS See also GALLBLADDER 08/26/2005 Congenital choledochal cyst Depression Depressive disorder, not elsewhere classified Diaphragmatic hernia without mention of obstruction or gangrene Esophagitis, unspecified Fatty tumor of liver 2005 FX LATERAL MALLEOLUS-CLOSE 09/03/2008 GERD (gastroesophageal reflux disease) 03/15/2012 On 3 meds in . ?hiatal hernia. 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 Dr Rivera Pre-eclampsia added to pre-existing hypertension 11/17/2014 Unspecified hemorrhoids without mention of complication Hemorrhoids PAST SURGICAL HISTORY Procedure Laterality Date CHOLECYSTECTOMY COLONOSCOPY FLX DX W/COLLJ SPEC WHEN PFRMD 05/09/2019 Colonoscopy EGD TRANSORAL BIOPSY SINGLE/MULTIPLE 09/22/10 ESOPHAGOGASTRODUODENOSCOPY TRANSORAL DIAGNOSTIC 05/09/2019 EGD HYSTERECTOMY HX 2017 [facility] PAST SURGICAL HISTORY OF Tumor removed from stomach, benign per pt PAST SURGICAL HISTORY OF 03/2009 left ankle fracture REM LESIO TRUNK,ARM,LEG 1.1 -2.0CM REMOVAL DEEP IMPLANT 12/06/09 Performed by KATHI POWELL at [facility] RPR DISLOC PERONEAL TENDON W/O FIBULAR OSTEOTOMY 12/06/09 Performed by KATHI POWELL at [facility] SIGMOIDOSCOPY FLX DX W/COLLJ SPEC BR/WA IF PFRMD 06/2004 Sigmoidoscopy, flexible SINUSOTOMY MAXILLARY ANTROTOMY INTRANASAL Byrd-Elliott sinusotomy TONSILLECTOMY PRIMARY/SECONDARY <AGE 12 Tonsillectomy VAGINOSCOPY ALLERGIES Bupropion MEDICATIONS rizatriptan (MAXALT) 10 mg tablet Take 1 tablet (10 mg) by mouth as needed for migraine headache (see administration instructions). omeprazole (PRILOSEC) 40 mg capsule Take 1 capsule by mouth two times a day. hydrOXYzine HCl (ATARAX) 25 mg tablet Take 1 tablet by mouth three times a day as needed for anxiety. PARoxetine (PAXIL) 20 mg tablet Take 1 tablet by mouth once daily. Take with additional 40 mg tablet. lisinopril (ZESTRIL) 10 mg tablet Take 1 tablet by mouth once daily. topiramate (TOPAMAX) 25 mg capsule Take 1 capsule by mouth two times a day. tiZANidine (ZANAFLEX) 4 mg tablet Take 1 tablet by mouth once daily. PARoxetine (PAXIL) 40 mg tablet Take 1 tablet by mouth once daily. Cholecalciferol, Vitamin D3, (DIALYVITE VITAMIN D) 125 mcg (5,000 unit) cap Take 1 capsule by mouth once daily. celecoxib (CELEBREX) 200 mg capsule Take 1 capsule by mouth twice daily NIFEdipine XL (ADALAT CC) 30 mg 24 hr tablet Take 1 tablet by mouth once daily. Pseudoephedrine-guaiFENesin (MUCINEX D MAXIMUM STRENGTH) 120-1,200 mg tab ER 12 hr Take 1 tablet by mouth once daily as needed (congestion). (Patient not taking: Reported on 12/03/2023) benzonatate (TESSALON PERLES) 100 mg capsule Take 1 capsule by mouth three times a day as needed for cough. (Patient not taking: Reported on 10/20/2023) FAMILY HISTORY Problem Relation Age of Onset Diabetes Mother other (colon polyps [Other]) Father no cancer found Heart Father Hypertension Father Ischemic Heart Disease Father Coronary Artery Disease Father COPD Father Thyroid Brother Social History Tobacco Use Smoking status: Never Smokeless tobacco: Never Vaping Use Vaping status: Never Used Substance Use Topics Alcohol use: Yes Comment: rarely, 1-2 weekends per month 5 drinks (prior to ) Drug use: No Review of Systems Constitutional: Positive for fatigue. Negative for chills and fever. HENT: Positive for congestion and sore throat. Negative for ear pain. Respiratory: Positive for cough and shortness of breath. Cardiovascular: Positive for chest pain (With cough). Gastrointestinal: Negative for diarrhea and vomiting. Objective BP 122/76 Pulse 94 Temp 36.7 C (98.1 F) (Tympanic) Resp 16 Wt 121.6 kg (268 lb 1.3 oz) LMP (LMP Unknown) SpO2 100% BMI 46.02 kg/m Physical Exam Vitals and nursing note reviewed. Constitutional: General: She is not in acute distress. Appearance: Normal appearance. She is not toxic-appearing. HENT: Right Ear: Tympanic membrane and ear canal normal. Left Ear: Tympanic membrane and ear canal normal. Nose: Nose normal. Mouth/Throat: Mouth: Mucous membranes are moist. Pharynx: Posterior oropharyngeal erythema present. Tonsils: 0 on the right. 0 on the left. Eyes: Conjunctiva/sclera: Conjunctivae normal. Cardiovascular: Rate and Rhythm: Normal rate and regular rhythm. Pulmonary: Effort: Pulmonary effort is normal. Breath sounds: Normal breath sounds. No wheezing, rhonchi or rales. Skin: General: Skin is warm and dry. Neurological: Mental Status: She is alert. Assessment and Plan ASSESSMENT/PLAN: 1. Sore throat - ICD9: 462, ICD10: J02.9 (primary diagnosis) - suspect viral - Group A strep molecular testing negative - Discussed supportive care treatment with fluids, rest and analgesia. - The patient may also use warm salt water gargles, throat lozenges and/or OTC throat spray as needed. - STREP A MOLECULAR (POC) 2. Acute cough - ICD9: 786.2, ICD10: R05.1 - XR CHEST 2V FRONTAL/LAT-no acute radiographic abnormality -Suspect viral bronchitis. -Rx prednisone, Rx Tessalon Perles -Follow-up with PCP if no improvement in 3 to 5 days. -If new chest pain, worsening shortness of breath, go to ER. 3. SOB (shortness of breath) - ICD9: 786.05, ICD10: R06.02 - XR CHEST 2V FRONTAL/LAT -See above Diagnosis and treatment plan were discussed and questions were answered to the patient's satisfaction. Pt acknowledged understanding of concepts and follow up plan. Specific signs and symptoms that would indicate the need for higher level of care were discussed in detail warranting prompt ER evaluation. ADRIANE Mercado documented in this encounter [facility] 03-10-2024 Hospital Discharge instructions Nate Winters MD - 03/10/2024 10:22 AM EST Anesthesia and Activity: DO NOT drive, operate machinery, drink any alcohol or take sleeping pills today Avoid making critical decisions, signing legal documents, or performing any activity that requires alertness for the rest of the day. You may experience a tickling, dry throat or mouth. You may be hoarse. Use lozenges and warm saltwater gargles. Notify your physician if these symptoms persist longer than 48 hours. Rest the remainder of the day. You may resume normal activity tomorrow. DIET: You may resume a normal diet unless notified or recommended by your physician. You may be eager to eat a large meal after fasting, but it is a good idea to start with light meals and ease into solid foods the first day. If your stomach is upset, try clear liquids and bland, low fat foods like toast or rice. Drink plenty of fluids for the first 24 hours (unless your physician states otherwise) MEDICATION: Resume your normal home medications unless notified or recommended by your physician. Ask your physician when you can resume any blood thinners, such as Coumadin, Eliquis, Plavix, Aspirin or non-steroidal anti-inflammatory medications, such as Advil/Motrin (ibuprofen), Aleve (naproxen) Follow-up: If biopsies were taken or polyps were removed the office will call you with pathology reports in 7-10 days. If you do not hear from them during that time frame please call your physician. When to call for help: Call your doctor immediately or seek medical care if you experience: Severe pain or vomiting Coughing up more than a teaspoon of blood A fever greater than 101 degrees Redness or swelling of arm from the IV site for more than 48 hours Sudden onset of chest pain or shortness of breath IF YOU ARE UNABLE TO REACH YOUR PHYSICIAN GO TO NEAREST EMERGENCY DEPARTMENT OR CALL 911 The following attachments cannot be sent through Care Everywhere.Moderate Sedation in Adults Discharge Instructions (Belarusian)Upper GI Endoscopy Discharge Instructions (Belarusian)documented in this encounter 03-10-2024 Note Patient: Salma Browning Procedure Summary Date: 03/10/24 Room / Location: [address] Gastroenterology Anesthesia Start: 1000 Anesthesia Stop: 100 Procedure: ESOPHAGOGASTRODUODENOSCOPY WITH BIOPSY Diagnosis: Gastro-esophageal reflux disease without esophagitis Providers: Nate Winters MD Responsible Provider: Nani Vazquez MD Anesthesia Type: TIVA ASA Status: 3 Anesthesia Type: TIVA Vitals Value Taken Time BP 126/65 03/10/24 1011 Temp 36.2 ?C (97.1 ?F) 03/10/24 1011 Pulse 83 03/10/24 1011 Resp 16 03/10/24 1011 SpO2 98 % 03/10/24 1011 Anesthesia Post Evaluation Patient location during evaluation: PACU Patient participation: complete - patient participated Level of consciousness: awake and alert Pain management: satisfactory to patient Airway patency: patent Dental Injury: no Cardiovascular status: acceptable, blood pressure returned to baseline and hemodynamically stable Respiratory status: acceptable and spontaneous ventilation Hydration status: euvolemic Nausea/Vomiting: controlled No notable events documented. Patient can be discharged once all PACU criteria has been met. [facility] 03-10-2024 Note Patient: Salma Browning Procedure Summary Date: 03/10/24 Room / Location: [address] Gastroenterology Anesthesia Start: 999 Anesthesia Stop: 100 Procedure: ESOPHAGOGASTRODUODENOSCOPY WITH BIOPSY Diagnosis: Gastro-esophageal reflux disease without esophagitis Providers: Nate Winters MD Responsible Provider: Nani Vazquez MD Anesthesia Type: TIVA ASA Status: 3 Anesthesia Type: TIVA Vitals Value Taken Time BP 124/68 03/10/24 1014 Temp 36.2 ?C (97.1 ?F) 03/10/24 1011 Pulse 83 03/10/24 1011 Resp 16 03/10/24 1011 SpO2 100 03/10/24 1014 Anesthesia Post Evaluation Patient location during evaluation: PACU Patient participation: complete - patient participated Level of consciousness: awake and alert Pain management: satisfactory to patient Multimodal analgesia pain management approach Airway patency: patent Two or more strategies used to mitigate risk of obstructive sleep apnea Cardiovascular status: acceptable and hemodynamically stable Respiratory status: acceptable Hydration status: acceptable No notable events documented. MIPS #[id number] PONV Patient did not receive an inhalational anesthetic ([id number]) MIPS # [phone] Perioperative Temperature Management Anesthesia time was less than 60 minutes (4256F) MIPS #477 Multimodal Pain Management Not emergent case MIPS #404 Anesthesiology Smoking Abstinence The patient is not a current smoker (e.g. cigarette, cigar, pipe, e-cigarette/vaping/marijuana) If no stop here (XX404) I completed my handoff to the receiving clinician during which we: 1. Identified the patient 2. Identified the responsible provider 3. Reviewed the pertinent medical history 4. Discussed the surgical course 5. Reviewed intra-op anesthesia management and issues during anesthesia 6. Set expectations for post-procedure period 7. Allowed opportunity for questions and acknowledgement of understanding. [facility] 03-10-2024 Note Patient: Salma Browning Procedure Information Date/Time: 03/10/24 1020 Procedure: ESOPHAGOGASTRODUODENOSCOPY WITH BIOPSY - THIS CASE REQUIRES 20 MINS Location: [place] [address] / [facility] Gastroenterology Providers: Nate Winters MD Relevant Problems Cardio (+) HTN (hypertension) GI (+) GERD (gastroesophageal reflux disease) Past Medical History: Past Medical History: No date: Anxiety No date: Arthritis No date: Back pain No date: Chest pain on exertion No date: Daytime sleepiness No date: Depression No date: Difficulty sleeping No date: Dizziness No date: Fatigue No date: GERD (gastroesophageal reflux disease) No date: HTN (hypertension) No date: Joint pain, hip No date: Joint pain, knee No date: Memory difficulties 12/22/2023: Morbid obesity, unspecified obesity type (HCC) No date: Muscle weakness No date: Pain management No date: Snoring No date: SOBOE (shortness of breath on exertion) Past Surgical History: Past Surgical History: 2005: ANKLE SURGERY Comment: alejandrina Torres 2014: CHOLECYSTECTOMY 2020: FACIAL SURGERY (HISTORICAL) Comment: several for MRSA 2016: HYSTERECTOMY Comment: [facility] 1999: SINUS SURGERY Comment: [facility] 1987: TONSILLECTOMY Comment: [facility] 2014: TUMOR EXCISION Comment: Lipoma of abdomen Social History: TOBACCO: reports that she has never smoked. She has never used smokeless tobacco. ETOH: reports current alcohol use of about 2.0 standard drinks of alcohol per week. Social History Substance and Sexual Activity Drug Use Never Family History: Family History Problem Relation Name Age of Onset Diabetes Mother Hypertension Mother Obesity Mother Hypertension Father Obesity Sister Diabetes Brother Hypertension Brother Obesity Brother Hypertension Maternal Grandmother Diabetes Maternal Grandmother Obesity Maternal Grandmother Heart disease Maternal Grandfather Hypertension Maternal Grandfather Diabetes Maternal Grandfather Obesity Maternal Grandfather Screening: unknown Clinical information reviewed: Meds Physical Exam Airway Mallampati: III TM distance: >3 FB Cardiovascular Dental dentition normal Pulmonary Abdominal Anesthesia Plan patient is NPO appropriate Any family history or previous problems with anesthesia no ASA 3 TIVA Any family history or previous problems with anesthesia no The patient is not a current smoker. Use of blood products discussed with who consented to blood products. [facility] Screening Labs: No results found for: WBC, HGB, HCT, MCV, PLT No results found for: SODIUM, NA, POTASSIUM, K, CHLORIDE, CL, CO2, BUN, CREATININE, GLUCOSE, CALCIUM, PROT, BILIRUBINFL, ALKPHOS, AST, ALT, EGFR, GLOB No echocardiogram results found for the past 14 days No results found for this or any previous visit. Equipment Requests: Additional Equipment Requests [facility] 03-10-2024 Note Formatting of this n ote might be different from the original. [facility] Salma Brow[facility] Procedure Date: 03/10/2024 9:42 AM Gender: Female Date of : 1975 Age: 49 Admit Type: Outpatient Note Status: Finalized Endoscopist: Nate Winters MD, [id number] Procedure: Upper GI endoscopy Indications: Heartburn Findings: Mild inflammation was found in the gastric antrum. Biopsies were taken with a cold forceps for Helicobacter pylori testing. Impression: - Gastritis. Biopsied. Recommendation: - Patient has a contact number available for emergencies. The signs and symptoms of potential delayed complications were discussed with the patient. Return to normal activities tomorrow. Written discharge instructions were provided to the patient. - Resume previous diet. - Continue present medications. - Await pathology results. Referring MD: Susan Sevilla Medicines: Monitored Anesthesia Care Procedure: Pre-Anesthesia Assessment: - Prior to the procedure, a History and Physical was performed, and patient medications and allergies were reviewed. The patient's tolerance of previous anesthesia was also reviewed. The risks and benefits of the procedure and the sedation options and risks were discussed with the patient. All questions were answered, and informed consent was obtained. Prior Anticoagulants: The patient has taken no anticoagulant or antiplatelet agents. ASA Grade Assessment: per anesthesia endoscopic documentation. After reviewing the risks and benefits, the patient was deemed in satisfactory condition to undergo the procedure. - The anesthesia plan was to use monitored anesthesia care (MAC). After obtaining informed consent, the endoscope was passed under direct vision. Throughout the procedure, the patient's blood pressure, pulse, and oxygen saturations were monitored continuously. The Endoscope was introduced through the mouth, and advanced to the second part of duodenum. The upper GI endoscopy was accomplished without difficulty. The patient tolerated the procedure well. Complications: No immediate complications. Procedure Code(s): --- Professional --- 82084, Esophagogastroduodenoscopy, flexible, transoral; with biopsy, single or multiple --- Technical --- 60764, Esophagogastroduodenoscopy, flexible, transoral; with biopsy, single or multiple Diagnosis Code(s): --- Professional --- K29.70, Gastritis, unspecified, without bleeding R12, Heartburn --- Technical --- K29.70, Gastritis, unspecified, without bleeding R12, Heartburn CPT copyright 2021 [employer]. All rights reserved. The codes documented in this report are preliminary and upon business management consultant review may be revised to meet current compliance requirements. Attending Participation: I personally performed the entire procedure. Nate Winters MD. Nate Winters MD 03/10/2024 10:23:38 AM This report has been signed electronically. Number of Addenda: 0 Note Initiated On: 03/10/2024 9:42 AM [facility] 03-10-2024 Note Formatting of this n ote might be different from the original. [facility]: Salma Brow[facility] Procedure Date: 03/10/2024 9:42 AM Gender: Female Date of : 1975 Age: 49 Admit Type: Outpatient Note Status: Finalized Endoscopist: Nate Winters MD, [id number] Procedure: Upper GI endoscopy Indications: Heartburn Findings: Mild inflammation was found in the gastric antrum. Biopsies were taken with a cold forceps for Helicobacter pylori testing. Impression: - Gastritis. Biopsied. Recommendation: - Patient has a contact number available for emergencies. The signs and symptoms of potential delayed complications were discussed with the patient. Return to normal activities tomorrow. Written discharge instructions were provided to the patient. - Resume previous diet. - Continue present medications. - Await pathology results. Referring MD: Susan Sevilla Medicines: Monitored Anesthesia Care Procedure: Pre-Anesthesia Assessment: - Prior to the procedure, a History and Physical was performed, and patient medications and allergies were reviewed. The patient's tolerance of previous anesthesia was also reviewed. The risks and benefits of the procedure and the sedation options and risks were discussed with the patient. All questions were answered, and informed consent was obtained. Prior Anticoagulants: The patient has taken no anticoagulant or antiplatelet agents. ASA Grade Assessment: per anesthesia endoscopic documentation. After reviewing the risks and benefits, the patient was deemed in satisfactory condition to undergo the procedure. - The anesthesia plan was to use monitored anesthesia care (MAC). After obtaining informed consent, the endoscope was passed under direct vision. Throughout the procedure, the patient's blood pressure, pulse, and oxygen saturations were monitored continuously. The Endoscope was introduced through the mouth, and advanced to the second part of duodenum. The upper GI endoscopy was accomplished without difficulty. The patient tolerated the procedure well. Complications: No immediate complications. Procedure Code(s): --- Professional --- 71251, Esophagogastroduodenoscopy, flexible, transoral; with biopsy, single or multiple --- Technical --- 87905, Esophagogastroduodenoscopy, flexible, transoral; with biopsy, single or multiple Diagnosis Code(s): --- Professional --- K29.70, Gastritis, unspecified, without bleeding R12, Heartburn --- Technical --- K29.70, Gastritis, unspecified, without bleeding R12, Heartburn CPT copyright 2021 [employer]. All rights reserved. The codes documented in this report are preliminary and upon business management consultant review may be revised to meet current compliance requirements. Attending Participation: I personally performed the entire procedure. Nate Winters MD. Nate Winters MD 03/10/2024 10:23:38 AM This report has been signed electronically. Number of Addenda: 0 Note Initiated On: 03/10/2024 9:42 AM [facility] 03-10-2024 Miscellaneous Notes [facility]: Salma Browning Procedure Date: 03/10/2024 9:42 AM Gender: Female Date of : 1975 Age: 49 Admit Type: Outpatient Note Status: Finalized Endoscopist: Nate Winters MD, [id number] Procedure: Upper GI endoscopy Indications: Heartburn Findings: Mild inflammation was found in the gastric antrum. Biopsies were taken with a cold forceps for Helicobacter pylori testing. Impression: - Gastritis. Biopsied. Recommendation: - Patient has a contact number available for emergencies. The signs and symptoms of potential delayed complications were discussed with the patient. Return to normal activities tomorrow. Written discharge instructions were provided to the patient. - Resume previous diet. - Continue present medications. - Await pathology results. Referring MD: Susan Sevilla Medicines: Monitored Anesthesia Care Procedure: Pre-Anesthesia Assessment: - Prior to the procedure, a History and Physical was performed, and patient medications and allergies were reviewed. The patient's tolerance of previous anesthesia was also reviewed. The risks and benefits of the procedure and the sedation options and risks were discussed with the patient. All questions were answered, and informed consent was obtained. Prior Anticoagulants: The patient has taken no anticoagulant or antiplatelet agents. ASA Grade Assessment: per anesthesia endoscopic documentation. After reviewing the risks and benefits, the patient was deemed in satisfactory condition to undergo the procedure. - The anesthesia plan was to use monitored anesthesia care (MAC). After obtaining informed consent, the endoscope was passed under direct vision. Throughout the procedure, the patient's blood pressure, pulse, and oxygen saturations were monitored continuously. The Endoscope was introduced through the mouth, and advanced to the second part of duodenum. The upper GI endoscopy was accomplished without difficulty. The patient tolerated the procedure well. Complications: No immediate complications. Procedure Code(s): --- Professional --- 34708, Esophagogastroduodenoscopy, flexible, transoral; with biopsy, single or multiple --- Technical --- 50797, Esophagogastroduodenoscopy, flexible, transoral; with biopsy, single or multiple Diagnosis Code(s): --- Professional --- K29.70, Gastritis, unspecified, without bleeding R12, Heartburn --- Technical --- K29.70, Gastritis, unspecified, without bleeding R12, Heartburn CPT copyright 2021 [employer]. All rights reserved. The codes documented in this report are preliminary and upon business management consultant review may be revised to meet current compliance requirements. Attending Participation: I personally performed the entire procedure. Nate Winters MD. Nate Winters MD 03/10/2024 10:23:38 AM This report has been signed electronically. Number of Addenda: 0 Note Initiated On: 03/10/2024 9:42 AM documented in this encounter 03-10-2024 History and physical note Images from the original note were not included. Endoscopy History and Physical HPI: Salma Browning is a 49 y.o. female who presents with dyspepsia and is undergoing preoperative workup for weight reduction surgery. BMI is There is no height or weight on file to calculate BMI. PMHx: Past Medical History: Diagnosis Date Anxiety Arthritis Back pain Chest pain on exertion Daytime sleepiness Depression Difficulty sleeping Dizziness Fatigue GERD (gastroesophageal reflux disease) HTN (hypertension) Joint pain, hip Joint pain, knee Memory difficulties Morbid obesity, unspecified obesity type (HCC) 12/22/2023 Muscle weakness Pain management Snoring SOBOE (shortness of breath on exertion) PSHx: Past Surgical History: Procedure Laterality Date ANKLE SURGERY 2005 x 2 - [place] CHOLECYSTECTOMY 2014 FACIAL SURGERY (HISTORICAL) 2019 several for MRSA HYSTERECTOMY 2016 [place] SINUS SURGERY 1999 [place] TONSILLECTOMY 1987 [facility] TUMOR EXCISION 2013 Lipoma of abdomen PFMHx: Family History Problem Relation Name Age of Onset Diabetes Mother Hypertension Mother Obesity Mother Hypertension Father Obesity Sister Diabetes Brother Hypertension Brother Obesity Brother Hypertension Maternal Grandmother Diabetes Maternal Grandmother Obesity Maternal Grandmother Heart disease Maternal Grandfather Hypertension Maternal Grandfather Diabetes Maternal Grandfather Obesity Maternal Grandfather ALL: Allergies Allergen Reactions Wellbutrin [Bupropion] Itching MEDS: @MEDCMED@ SOCIAL Hx: Social History Socioeconomic History Marital status: Spouse name: Not on file Number of children: Not on file Years of education: Not on file Highest education level: Not on file Occupational History Not on file Tobacco Use Smoking status: Never Smokeless tobacco: Never Substance and Sexual Activity Alcohol use: Yes Alcohol/week: 2.0 standard drinks of alcohol Types: 2 Cans of beer per week Comment: 2 cans weekly Drug use: Never Sexual activity: Not Currently Other Topics Concern Not on file Social History Narrative Not on file Social Drivers of Health Financial Resource Strain: Medium Risk (08/11/2023) Received from [facility] Overall Financial Resource Strain (CARDIA) Difficulty of Paying Living Expenses: Somewhat hard Food Insecurity: Food Insecurity Present (08/11/2023) Received from [facility] Hunger Vital Sign Worried About Running Out of Food in the Last Year: Sometimes true Ran Out of Food in the Last Year: Sometimes true Transportation Needs: No Transportation Needs (08/11/2023) Received from [facility] PRAPARE - Transportation Lack of Transportation (Medical): No Lack of Transportation (Non-Medical): No Physical Activity: Insufficiently Active (08/11/2023) Received from [facility] Exercise Vital Sign Days of Exercise per Week: 2 days Minutes of Exercise per Session: 30 min Stress: Stress Concern Present (08/11/2023) Received from [facility] [employer] - Occupational Stress Questionnaire Feeling of Stress : Rather much Social Connections: Socially Isolated (08/11/2023) Received from [facility] Social Connection and Isolation Panel [NHANES] Frequency of Communication with Friends and Family: Three times a week Frequency of Social Gatherings with Friends and Family: Once a week Attends [employer] Services: Never Active Member of Clubs or Organizations: No Attends Club or Organization Meetings: Never Marital Status: Intimate Partner Violence: Not on file Housing Stability: Not on file Review of Systems: I personally reviewed the patient intake form with the patient. The ROS is negative except for what is listed in HPI. Physical Examination: There were no vitals taken for this visit. She stands @FLOWAMB(11)@ tall with a weight of @FLOWAMB(14)@ , resulting in a BMI of There is no height or weight on file to calculate BMI.. General: The patient is awake, alert, and oriented, and is in no apparent distress. Normal affect. Head and Neck: Normocephalic and atraumatic. Supple, no thyromegaly. Cardiac: Regular rate and rhythm without evidence of murmur. No obvious carotid bruits. Respiratory: Clear to auscultation bilaterally. Good inspiratory effort. Abdomen: Soft, non tender, non distended Extremities: Ambulatory without assistance. Neurological: Intact sensation in 4 extremities, no focal deficits notes. Skin: No rashes or lesions noted. Warm and dry. Rectal: Not done. Hernia: no hernias found on exam Assessment and Plan Active Problems: There are no active Hospital Problems. Plan: 49 y.o. female who presents with dyspepsia Morbid obesity with There is no height or weight on file to calculate BMI.. EGD with biopsy Patient counseled on risks, benefits, and alternatives of treatment plan at length. Patient states an understanding and willingness to proceed with plan. [employer] Work Phone: 03-10-2024 Note Endoscopy History an d Physical HPI: Salma Browning is a 49 y.o. female who presents with dyspepsia and is undergoing preoperative workup for weight reduction surgery. BMI is There is no height or weight on file to calculate BMI. PMHx: Past Medical History: Diagnosis Date Anxiety Arthritis Back pain Chest pain on exertion Daytime sleepiness Depression Difficulty sleeping Dizziness Fatigue GERD (gastroesophageal reflux disease) HTN (hypertension) Joint pain, hip Joint pain, knee Memory difficulties Morbid obesity, unspecified obesity type (HCC) 12/22/2023 Muscle weakness Pain management Snoring SOBOE (shortness of breath on exertion) PSHx: Past Surgical History: Procedure Laterality Date ANKLE SURGERY 2005 x 2 - [place] CHOLECYSTECTOMY 2014 FACIAL SURGERY (HISTORICAL) 2019 several for MRSA HYSTERECTOMY 2016 [place] SINUS SURGERY 1999 [place] TONSILLECTOMY 1986 [facility] TUMOR EXCISION 2014 Lipoma of abdomen PFMHx: Family History Problem Relation Name Age of Onset Diabetes Mother Hypertension Mother Obesity Mother Hypertension Father Obesity Sister Diabetes Brother Hypertension Brother Obesity Brother Hypertension Maternal Grandmother Diabetes Maternal Grandmother Obesity Maternal Grandmother Heart disease Maternal Grandfather Hypertension Maternal Grandfather Diabetes Maternal Grandfather Obesity Maternal Grandfather ALL: Allergies Allergen Reactions Wellbutrin [Bupropion] Itching MEDS: @MEDCMED@ SOCIAL Hx: Social History Socioeconomic History Marital status: Spouse name: Not on file Number of children: Not on file Years of education: Not on file Highest education level: Not on file Occupational History Not on file Tobacco Use Smoking status: Never Smokeless tobacco: Never Substance and Sexual Activity Alcohol use: Yes Alcohol/week: 2.0 standard drinks of alcohol Types: 2 Cans of beer per week Comment: 2 cans weekly Drug use: Never Sexual activity: Not Currently Other Topics Concern Not on file Social History Narrative Not on file Social Drivers of Health Financial Resource Strain: Medium Risk (08/11/2023) Received from [facility] Overall Financial Resource Strain (CARDIA) Difficulty of Paying Living Expenses: Somewhat hard Food Insecurity: Food Insecurity Present (08/11/2023) Received from [facility] Hunger Vital Sign Worried About Running Out of Food in the Last Year: Sometimes true Ran Out of Food in the Last Year: Sometimes true Transportation Needs: No Transportation Needs (08/11/2023) Received from [facility] PRAPARE - Transportation Lack of Transportation (Medical): No Lack of Transportation (Non-Medical): No Physical Activity: Insufficiently Active (08/11/2023) Received from [facility] Exercise Vital Sign Days of Exercise per Week: 2 days Minutes of Exercise per Session: 30 min Stress: Stress Concern Present (08/11/2023) Received from [facility] [employer] [employer] - Occupational Stress Questionnaire Feeling of Stress : Rather much Social Connections: Socially Isolated (08/11/2023) Received from [facility] Social Connection and Isolation Panel [NHANES] Frequency of Communication with Friends and Family: Three times a week Frequency of Social Gatherings with Friends and Family: Once a week Attends [employer] Services: Never Active Member of Clubs or Organizations: No Attends Club or Organization Meetings: Never Marital Status: Intimate Partner Violence: Not on file Housing Stability: Not on file Review of Systems: I personally reviewed the patient intake form with the patient. The ROS is negative except for what is listed in HPI. Physical Examination: There were no vitals taken for this visit. She stands @FLOWAMB(11)@ tall with a weight of @FLOWAMB(14)@ , resulting in a BMI of There is no height or weight on file to calculate BMI.. General: The patient is awake, alert, and oriented, and is in no apparent distress. Normal affect. Head and Neck: Normocephalic and atraumatic. Supple, no thyromegaly. Cardiac: Regular rate and rhythm without evidence of murmur. No obvious carotid bruits. Respiratory: Clear to auscultation bilaterally. Good inspiratory effort. Abdomen: Soft, non tender, non distended Extremities: Ambulatory without assistance. Neurological: Intact sensation in 4 extremities, no focal deficits notes. Skin: No rashes or lesions noted. Warm and dry. Rectal: Not done. Hernia: no hernias found on exam Assessment and Plan Active Problems: There are no active Hospital Problems. Plan: 49 y.o. female who presents with dyspepsia Morbid obesity with There is no height or weight on file to calculate BMI.. EGD with biopsy Patient counseled on risks, benefits, and alternatives of treatment plan at length. Patient states an underst (more content not included)... [facility] 03-10-2024 History and physical note Images from the original note were not included. Endoscopy History and Physical HPI: Salma Browning is a 49 y.o. female who presents with dyspepsia and is undergoing preoperative workup for weight reduction surgery. BMI is There is no height or weight on file to calculate BMI. PMHx: Past Medical History: Diagnosis Date Anxiety Arthritis Back pain Chest pain on exertion Daytime sleepiness Depression Difficulty sleeping Dizziness Fatigue GERD (gastroesophageal reflux disease) HTN (hypertension) Joint pain, hip Joint pain, knee Memory difficulties Morbid obesity, unspecified obesity type (HCC) 12/22/2023 Muscle weakness Pain management Snoring SOBOE (shortness of breath on exertion) PSHx: Past Surgical History: Procedure Laterality Date ANKLE SURGERY 2005 x 2 - [place] CHOLECYSTECTOMY 2014 FACIAL SURGERY (HISTORICAL) 2019 several for MRSA HYSTERECTOMY 2016 [place] SINUS SURGERY 1999 [place] TONSILLECTOMY 1987 [facility] TUMOR EXCISION 2014 Lipoma of abdomen PFMHx: Family History Problem Relation Name Age of Onset Diabetes Mother Hypertension Mother Obesity Mother Hypertension Father Obesity Sister Diabetes Brother Hypertension Brother Obesity Brother Hypertension Maternal Grandmother Diabetes Maternal Grandmother Obesity Maternal Grandmother Heart disease Maternal Grandfather Hypertension Maternal Grandfather Diabetes Maternal Grandfather Obesity Maternal Grandfather ALL: Allergies Allergen Reactions Wellbutrin [Bupropion] Itching MEDS: @MEDCMED@ SOCIAL Hx: Social History Socioeconomic History Marital status: Spouse name: Not on file Number of children: Not on file Years of education: Not on file Highest education level: Not on file Occupational History Not on file Tobacco Use Smoking status: Never Smokeless tobacco: Never Substance and Sexual Activity Alcohol use: Yes Alcohol/week: 2.0 standard drinks of alcohol Types: 2 Cans of beer per week Comment: 2 cans weekly Drug use: Never Sexual activity: Not Currently Other Topics Concern Not on file Social History Narrative Not on file Social Drivers of Health Financial Resource Strain: Medium Risk (08/11/2023) Received from [facility] Overall Financial Resource Strain (CARDIA) Difficulty of Paying Living Expenses: Somewhat hard Food Insecurity: Food Insecurity Present (08/11/2023) Received from [facility] Hunger Vital Sign Worried About Running Out of Food in the Last Year: Sometimes true Ran Out of Food in the Last Year: Sometimes true Transportation Needs: No Transportation Needs (08/11/2023) Received from [facility] PRAPARE - Transportation Lack of Transportation (Medical): No Lack of Transportation (Non-Medical): No Physical Activity: Insufficiently Active (08/11/2023) Received from [facility] Exercise Vital Sign Days of Exercise per Week: 2 days Minutes of Exercise per Session: 30 min Stress: Stress Concern Present (08/11/2023) Received from [facility] [employer] [employer] - Occupational Stress Questionnaire Feeling of Stress : Rather much Social Connections: Socially Isolated (08/11/2023) Received from [facility] Social Connection and Isolation Panel [NHANES] Frequency of Communication with Friends and Family: Three times a week Frequency of Social Gatherings with Friends and Family: Once a week Attends [employer] Services: Never Active Member of Clubs or Organizations: No Attends Club or Organization Meetings: Never Marital Status: Intimate Partner Violence: Not on file Housing Stability: Not on file Review of Systems: I personally reviewed the patient intake form with the patient. The ROS is negative except for what is listed in HPI. Physical Examination: There were no vitals taken for this visit. She stands @FLOWAMB(11)@ tall with a weight of @FLOWAMB(14)@ , resulting in a BMI of There is no height or weight on file to calculate BMI.. General: The patient is awake, alert, and oriented, and is in no apparent distress. Normal affect. Head and Neck: Normocephalic and atraumatic. Supple, no thyromegaly. Cardiac: Regular rate and rhythm without evidence of murmur. No obvious carotid bruits. Respiratory: Clear to auscultation bilaterally. Good inspiratory effort. Abdomen: Soft, non tender, non distended Extremities: Ambulatory without assistance. Neurological: Intact sensation in 4 extremities, no focal deficits notes. Skin: No rashes or lesions noted. Warm and dry. Rectal: Not done. Hernia: no hernias found on exam Assessment and Plan Active Problems: There are no active Hospital Problems. Plan: 49 y.o. female who presents with dyspepsia Morbid obesity with There is no height or weight on file to calculate BMI.. EGD with biopsy Patient counseled on risks, benefits, and alternatives of treatment plan at length. Patient states an understanding and willingness to proceed with plan. documented in this encounter 02-22-2024 Telephone encounter Note The following approved medication requests have been transmitted electronically. Requested Prescriptions Pending Prescriptions Disp Refills rizatriptan (MAXALT) 10 mg tablet 6 tablet 5 Sig: Take 1 tablet (10 mg) by mouth as needed for migraine headache (see administration instructions). Neal Gomez APRN.NORI [facility] 02-22-2024 Telephone encounter Note The following approved medication requests have been transmitted electronically. Requested Prescriptions Pending Prescriptions Disp Refills omeprazole (PRILOSEC) 40 mg capsule 60 capsule 5 Sig: Take 1 capsule by mouth two times a day. Neal Gomez APRN.CNP [facility] 02-22-2024 Miscellaneous Notes The following approved medication requests have been transmitted electronically. Requested Prescriptions Pending Prescriptions Disp Refills rizatriptan (MAXALT) 10 mg tablet 6 tablet 5 Sig: Take 1 tablet (10 mg) by mouth as needed for migraine headache (see administration instructions). Neal Gomez APRN.CNP Prescription Refill Information The patient has been identified by name and date of : Yes Caregiver verified no other encounters exist for this prescription request: Yes Caregiver confirmed with patient/requestor that no other refills are due, in the near future, with this provider at this time: Yes The last office visit in the department: 12/03/2023 Does the patient have a future office visit with this provider/department: No Requested Prescriptions Pending Prescriptions Disp Refills rizatriptan (MAXALT) 10 mg tablet 6 tablet 5 Sig: Take 1 tablet (10 mg) by mouth as needed for migraine headache (see administration instructions). Salma Moody LPN February 22, 2024 7:16 AM documented in this encounter [facility] 02-22-2024 Miscellaneous Notes The following approved medication requests have been transmitted electronically. Requested Prescriptions Pending Prescriptions Disp Refills omeprazole (PRILOSEC) 40 mg capsule 60 capsule 5 Sig: Take 1 capsule by mouth two times a day. Neal Gomez APRN.CNP Prescription Refill Information The patient has been identified by name and date of : Yes Caregiver verified no other encounters exist for this prescription request: Yes Caregiver confirmed with patient/requestor that no other refills are due, in the near future, with this provider at this time: Yes The last office visit in the department: 12/03/2023 Does the patient have a future office visit with this provider/department: No Requested Prescriptions Pending Prescriptions Disp Refills omeprazole (PRILOSEC) 40 mg capsule 60 capsule 5 Sig: Take 1 capsule by mouth two times a day. Salma Moody LPN February 22, 2024 7:15 AM documented in this encounter [facility] 02-22-2024 Telephone encounter Note Prescription Refill Information The patient has been identified by name and date of : Yes Caregiver verified no other encounters exist for this prescription request: Yes Caregiver confirmed with patient/requestor that no other refills are due, in the near future, with this provider at this time: Yes The last office visit in the department: 12/03/2023 Does the patient have a future office visit with this provider/department: No Requested Prescriptions Pending Prescriptions Disp Refills rizatriptan (MAXALT) 10 mg tablet 6 tablet 5 Sig: Take 1 tablet (10 mg) by mouth as needed for migraine headache (see administration instructions). Salma Moody LPN February 22, 2024 7:16 AM [facility] 02-22-2024 Telephone encounter Note Prescription Refill Information The patient has been identified by name and date of : Yes Caregiver verified no other encounters exist for this prescription request: Yes Caregiver confirmed with patient/requestor that no other refills are due, in the near future, with this provider at this time: Yes The last office visit in the department: 12/03/2023 Does the patient have a future office visit with this provider/department: No Requested Prescriptions Pending Prescriptions Disp Refills omeprazole (PRILOSEC) 40 mg capsule 60 capsule 5 Sig: Take 1 capsule by mouth two times a day. Salma Moody LPN February 22, 2024 7:15 AM [facility] 02-11-2024 History of Present illness Narrative [facility] SURGICAL WEIGHT LOSS MANAGEMENT PROGRAM SUPERVISED DIET AND EXERCISE ROOMING: INITIAL VISIT Patient: Salma Browning Date of : 1975 Service Date: 02/11/2024 Patient is here today to initiate physician-supervised diet and exercise as required by their insurance company prior to approval for weight loss surgery. This patient is alone for the evaluation today This is visit 1 of 6 required visits. Weight Metrics: (From Surgical Weight Loss Management) Today's Vital Signs: Non-Surgical Initial Eval Consult Date: 02/11/24 Initial Height: 5' 4 (162.6 cm) Initial Weight: 271 lb 3.2 oz (123 kg) [place] Body Weight: 131 lb (59.4 kg) Initial BMI: 46.55 Initial Body Fat %: 55.86 EBW: 140 lb (From NonSurgical Weight Loss Tracker) Falls Risk Assessment Patient does take medications which affect BP or mental status Patient does not have newly prescribed or changed dosage of medications within past 30 days which affect BP or mental status Patient has not fallen in the past 2 months Patient uses the following ambulatory assistive devices: none Patient states the presence of the following traits which increases risk of fall: none Patient is noton home O2 Have you received packet of information by mail from our office which includes: Surgical Checklist, lab orders & referral information? Yes Completed by: Roxi Sunshine MA [facility] SURGICAL WEIGHT LOSS MANAGEMENT PROGRAM PHYSICIAN SUPERVISED DIET AND EXERCISE SURGICAL PREPARATORY REGIMEN PROGRESS NOTE INITIAL EVALUATION Patient: Salma Browning Service Date: 02/11/24 Date of : 1975 Navigation Plan: Patient History/Assessment Summary: The patient is a pleasant 49 y.o. year old female, who stands Height: 5' 4 (162.6 cm) tall with a weight of Weight: 271 lb 3.2 oz (123 kg) pounds, resulting in a BMI of Body mass index is 46.55 kg/m . kg/m2. She has been overweight for 10+ years, has tried and failed multiple previous diet attempts, and is now in the process of undergoing evaluation for surgical treatment of their obesity. She is here today to initiate monthly physician supervised diet and exercise as part of their surgical preparatory regimen. History: Past Medical History: Diagnosis Date Anxiety Arthritis Back pain Chest pain on exertion Daytime sleepiness Depression Difficulty sleeping Dizziness Fatigue GERD (gastroesophageal reflux disease) HTN (hypertension) Joint pain, hip Joint pain, knee Memory difficulties Morbid obesity, unspecified obesity type (HCC) 12/22/2023 Muscle weakness Pain management Snoring SOBOE (shortness of breath on exertion) Past Surgical History: Procedure Laterality Date ANKLE SURGERY 2005 x 2 - [place] CHOLECYSTECTOMY 2014 FACIAL SURGERY (HISTORICAL) 2019 several for MRSA HYSTERECTOMY 2016 [place] SINUS SURGERY 1999 [place] TONSILLECTOMY 1987 [facility] TUMOR EXCISION 2013 Lipoma of abdomen Family History Problem Relation Name Age of Onset Diabetes Mother Hypertension Mother Obesity Mother Hypertension Father Obesity Sister Diabetes Brother Hypertension Brother Obesity Brother Hypertension Maternal Grandmother Diabetes Maternal Grandmother Obesity Maternal Grandmother Heart disease Maternal Grandfather Hypertension Maternal Grandfather Diabetes Maternal Grandfather Obesity Maternal Grandfather Social History Tobacco Use Smoking status: Never Smokeless tobacco: Never Substance Use Topics Alcohol use: Yes Alcohol/week: 2.0 standard drinks of alcohol Types: 2 Cans of beer per week Comment: 2 cans weekly This patient's excess weight is causing the following co-morbid conditions at this time:HTN Initial Diet & Exercise/SPR Visit Weight Metrics: Date of Initial Diet & Exercise Visit: Consult Date: 02/11/24 Initial Weight: Initial Weight: 271 lb 3.2 oz (123 kg) Initial BMI: Initial BMI: 46.55 [place] Body Weight: [place] Body Weight: 131 lb (59.4 kg) Excess Body Weight: EBW: 140 lb General: This patient is alert and oriented X3 Physical Examination: BP 118/79 Pulse 77 Ht 5' 4 (1.626 m) Wt 271 lb 3.2 oz (123 kg) BMI 46.55 kg/m General: This patient is obese, and is in no apparent distress. Psychological: Patient is awake, alert and oriented to person, place and time Patient's mood is normal affect Current Diet This patient s current diet is: 50% meal plan Reviewed PAST DIET HISTORY FORM and CURRENT DIET HISTORY FORM with patient (located in [facility]) Her diet contains adequate amounts of protein, adequate amounts of healthy fats, adequate amounts of green, leafy vegetables, and adequate amounts of fruits. Her comfort foods include: none Current Activity This patient currently does exercise for 11k steps per session, 7 times per week, including the following: walking. Current Eating Behaviors This patients demonstrates the following behaviors as they relate to her eating: skipping meals She eats approximately 5-6 times per day. Her last meal/snack was at 6 PM. Plan: Diagnosis Managing: HTN: stable. continued medical management, DE and plan for metabolic weight loss and surgery. Advised patient that She must adhere to regular monthly visits to meet the requirements of her insurance company. Additionally, She must lose approximately one pound per month to demonstrate readiness for the changes that will be required following surgery. Physician Diet Recommendations provided to patient Patient to return for follow up in one month Current Meds Patient's Medications New Prescriptions No medications on file Previous Medications ATENOLOL (TENORMIN) 50 MG TABLET Take 50 mg by mouth daily. VFZOJOKPXP-RFLJJJJWMOUKB-PKCWWIVD (FIORICET) 50-300-40 MG CAPSULE Take 1 capsule by mouth. CELECOXIB (CELEBREX) 200 MG CAPSULE Take 200 mg by mouth 2 times daily. HYDROCODONE-ACETAMINOPHEN (NORCO) 5-325 MG TABLET Take 2 tablets by mouth. HYDROXYZINE HCL (ATARAX) 25 MG TABLET Take 25 mg by mouth every 8 hours as needed. LISINOPRIL 10 MG TABLET Take 10 mg by mouth in the morning. MECLIZINE (ANTIVERT) 25 MG TABLET TAKE 1 TABLET BY MOUTH EVERY 6 HOURS NEEDED FOR DIZZINESS NIFEDIPINE XL (PROCARDIA XL) 30 MG 24 HR TABLET Take 30 mg by mouth daily. OMEPRAZOLE (PRILOSEC) [address] CAPSULE Take 40 mg by mouth in the morning and 40 mg in the evening. PAROXETINE (PAXIL) 20 MG TABLET Take 20 mg by mouth every morning. PAROXETINE (PAXIL) 40 MG TABLET Take 40 mg by mouth daily. RIZATRIPTAN (MAXALT) 10 MG TABLET TAKE 1 TABLET BY MOUTH NEEDED FOR MIGRAINE HEADACHE. TIZANIDINE (ZANAFLEX) 4 MG TABLET Take 4 mg by mouth daily. VITAMIN D PO Take 1 tablet by mouth before bedtime. Modified Medications No medications on file Discontinued Medications No medications on file I spent a total of 45 minutes on the day of the visit in counseling, discussing lifestyle changes that are pertinent to a successful life after bariatric surgery; and reviewing the chart including available communication from the surgeon. 1.Education on meal plan,meal structure, meal preps, shopping list 2. Discussion on elements of behavioral strategies such self-monitoring, controlling and modifying the stimuli that activate eating;slowing down the eating process;goal-setting on the process,behavioral aida and reinforcement,cognitive restructuring, problem-solving,assertiveness training. 3. Physical activity - build fitness to aerobic physical activity 150-300 min/wk and strength training 2-3 times per wk 4.Recommendation on do not use nicotine and alcohol before and after surgery is provided 5. For women of childbearing age recommendation to postpone until 12-18 month after surgery is provided 6. HTN Is associated with obesity and weight loss is discussed as a treatment option for HTN 7. Healthy lifestyle habits and their role in success after bariatric surgery discussed The patient was seen and a full chart review was performed.Clinical documentation is updated and completed. documented in this encounter 01-26-2024 Telephone encounter Note The following approved medication requests have been transmitted electronically. Requested Prescriptions Pending Prescriptions Disp Refills hydrOXYzine HCl (ATARAX) 25 mg tablet 30 tablet 2 Sig: Take 1 tablet by mouth three times a day as needed for anxiety. PARoxetine (PAXIL) 20 mg tablet 30 tablet 2 Sig: Take 1 tablet by mouth once daily. Take with additional 40 mg tablet. lisinopril (ZESTRIL) 10 mg tablet 30 tablet 2 Sig: Take 1 tablet by mouth once daily. topiramate (TOPAMAX) 25 mg capsule 60 capsule 5 Sig: Take 1 capsule by mouth two times a day. Neal Gomez APRN.NORI T [facility] 01-26-2024 Miscellaneous Notes The following approved medication requests have been transmitted electronically. Requested Prescriptions Pending Prescriptions Disp Refills hydrOXYzine HCl (ATARAX) 25 mg tablet 30 tablet 2 Sig: Take 1 tablet by mouth three times a day as needed for anxiety. PARoxetine (PAXIL) 20 mg tablet 30 tablet 2 Sig: Take 1 tablet by mouth once daily. Take with additional 40 mg tablet. lisinopril (ZESTRIL) 10 mg tablet 30 tablet 2 Sig: Take 1 tablet by mouth once daily. topiramate (TOPAMAX) 25 mg capsule 60 capsule 5 Sig: Take 1 capsule by mouth two times a day. Neal Gomez APRN.NORI Prescription Refill Information The patient has been identified by name and date of : Yes Caregiver verified no other encounters exist for this prescription request: Yes Caregiver confirmed with patient/requestor that no other refills are due, in the near future, with this provider at this time: Yes The last office visit in the department: 12/03/23 Does the patient have a future office visit with this provider/department: No Yearly due 11/2024 Requested Prescriptions Pending Prescriptions Disp Refills hydrOXYzine HCl (ATARAX) 25 mg tablet 30 tablet 2 Sig: Take 1 tablet by mouth three times a day as needed for anxiety. PARoxetine (PAXIL) 20 mg tablet 30 tablet 2 Sig: Take 1 tablet by mouth once daily. Take with additional 40 mg tablet. lisinopril (ZESTRIL) 10 mg tablet 30 tablet 2 Sig: Take 1 tablet by mouth once daily. topiramate (TOPAMAX) 25 mg capsule 60 capsule 5 Sig: Take 1 capsule by mouth two times a day. Rozina Santiago LPN January 26, 2024 7:55 AM documented in this encounter [facility] 01-26-2024 Telephone encounter Note Prescription Refill Information The patient has been identified by name and date of : Yes Caregiver verified no other encounters exist for this prescription request: Yes Caregiver confirmed with patient/requestor that no other refills are due, in the near future, with this provider at this time: Yes The last office visit in the department: 12/03/23 Does the patient have a future office visit with this provider/department: No Yearly due 11/2024 Requested Prescriptions Pending Prescriptions Disp Refills hydrOXYzine HCl (ATARAX) 25 mg tablet 30 tablet 2 Sig: Take 1 tablet by mouth three times a day as needed for anxiety. PARoxetine (PAXIL) 20 mg tablet 30 tablet 2 Sig: Take 1 tablet by mouth once daily. Take with additional 40 mg tablet. lisinopril (ZESTRIL) 10 mg tablet 30 tablet 2 Sig: Take 1 tablet by mouth once daily. topiramate (TOPAMAX) 25 mg capsule 60 capsule 5 Sig: Take 1 capsule by mouth two times a day. Rozina Santiago LPN January 26, 2024 7:55 AM [facility] 01-14-2024 Telephone encounter Note PRE-OP CHECKLIST SCANNED ORDERS MAILED 01-14-2024 Miscellaneous Notes PRE-OP CHECKLIST SCANNED ORDERS MAILED Addended by: MARY VAZ on: 01/14/2024 09:03 AM Modules accepted: Orders Orders signed. Checklist completed. EGD order placed and routed to production scheduler. I have recommended proceeding with the evaluation and work-up for the primary procedure as outlined below: Dr. Winters PATIENT SUMMARY Salma Browning 48 y.o. female with Body mass index is 46.24 kg/m . Laparoscopic Eli-en-Y Gastric Bypass and Laparoscopic Liver Biopsy DM[] HTN[x] TRINA[] GERD[x] HL[] OA[x] Date of Surgery: TBKj Sevilla INITIAL TESTING RESULTS Labwork [x] CMP, TSH, Fasting Lipid Profile, Mg, Zinc, Vit B1 (whole blood), Vit B12, 25-OH Vit D, Fe, Ferritin, Folate Tobacco [x] Serum Nicotine / Cotinine [] Negative [] Positive PLEASE ADD SERUM NICOTINE/COTININE WITH INITIAL LABS ON ALL LRYGB PROCEDURES EGD [x] Dx: [] GERD [x] Dyspepsia [] Other Pathology [x] H. pylori [] Negative [] Positive UGI [] [] not ordered US Abdomen [] [] not ordered Hx of Stormy TRINA eval [] [] On CPAP / Obtain settings Hematology [] [] Hypercoagulation panel Toxicology [x] [x] Urine drug screen [x] EtOH screen Addtional [x] [x] Hgb A1c INITIAL CONSULTATIONS CLEARANCE / MANAGEMENT Psychology [x] Dietitian [x] Cardiology [x] Pulmonary [x] Others [] []Heme/Onc []Psychiatry []Pain mgmt PSD [] Physician supervised diet: []None []3 mos []6 mos Preop diet [] Preop low calorie diet: []None []1 wk []2 wks FINAL PRE-OP TESTING RESULTS Labwork [x] [x]Pre-op CBC [x]BMP []Serum Nicotine / Cotinine EKG [x] CXR [x] POST-OP MEDICATIONS Ulcer Ppx [] Omeprazole 20 mg PO []QD []BID Gallstone Ppx [] Ursodiol 300 mg []BID DVT Ppx [x] DVT prophylaxis per final preop visit estimated risk Estimated calculated risk: % Schedule final pre-operative office visit with surgeon, pre-operative education class, and pre-operative exercise class prior to date of surgery ATTESTATION I reviewed with the patient the details of the proposed operation. The risks benefits and options were discussed. Risks included but were not limited to bleeding, infection, damage to other surrounding organs, cardio-pulmonary complications related to anesthesia, conversion from laparoscopic to and open procedure, the need for reoperative or endoscopic therapy, the potential for prolonged mechanical ventilation, and . All questions were fully answered to the patient's satisfaction and they wish to proceed with surgical intervention. Greater than 51% of the 45 minute visit was spent as face to face encounter, counseling the patient and discussing the risks,benefits and options of surgery as well as the perioperative care plan. The patient was seen and examined independently and relevant data including a full chart rreview was performed by myself. Patient Care Team: Susan Sevilla as PCP - General (Family Medicine) Nate Winters MD as Surgeon (General Surgery) Initial New [facility] surgical patient Navigation & Financial Counseling Discussion Patient Communication: In office SURGEON: [] JZ [] AD [] MP [x] TB [] LM PROCEDURE: [] LRYGB [] LSG [] FLORA-S [] FLORA [] UNDECIDED [] REV: SPECIFY: Confirmed pt wants to continue with surgical program/plan [] YES [] NO (complete program withdrawal note/process) CO-MORBIDS: [] NONE [] DM []HTN [] TRINA []GERD [] OTH: PRIVATE PAY: [] NO []YES DATE OF INITIAL BENEFITS VERIFICATION: TRANSFER FU: [] YES [] NO PRIMARY INSURANCE: Payor: [facility] MEDICAID / Plan: [facility] MEDICAID ODM / Product Type: Medicaid HMO / BENEFIT ON PLAN: [] NO [] YES BENEFIT MAX: [] NO [] YES -- BENEFIT MAX: $ EMPLOYER: DIET AND EXERCISE (DE) REQUIREMENT PRIMARY [] NONE []3M [x] 6M []9M [] Medicare 4 Months [] SPR (3M) []OTHER: SECONDARY INSURANCE: BENEFIT ON PLAN: [] NO [] YES BENEFIT MAX: [] NO [] YES -- BENEFIT MAX: $ AUTH REQUIRED FROM SECONDARY [] NO [] YES DIET AND EXERCISE REQUIREMENT SECONDARY [] NONE []3M [] 6M [] Medicare 4 months [] SPR (3M) []OTHER: ___ [x] Discussed with patient: Financial cost overview (document signed and pt given copy at new pt consult visit with surgeon), Initial appointments: Bariatric Nutrition Assessment (BNA) & Diet and Exercise (DE) Patient to look for yellow envelope in mail. This yellow envelope will contain orders for labs, testing and required clearances. Pt encouraged to complete early in program to prevent delays. Encourage blood work to be draw by 1st DE appointment. [x] Reviewed OOP cost, including: [x] Overview of inpatient admission benefits - estimated inpatient co-pays, deductibles and/or co-insurance - Estimated OOP costs form reviewed with patient, and copy given to patient at new pt visit. [x] Reviewed next steps with patient: 1) Scheduled at new pt surgeon visit: Forester Aide (RD) for a Nutrition Assessment (BNA) and Pre-operative Diet and Exercise (DE) appointment #1. [x] Patient reminded to arrive 15 minutes early for check in. Late arrivals may need to be rescheduled. 2) Schedule: Diet and Exercise Apt #2 only scheduled after initial BNA and DE completed, 3) Behavioral Health apt scheduled after DE started. Reviewed rational and goal of Behavioral Health appointments. 4) [x] Reinforced need to cancel any WMI appointments 48 hours in advance. Cautioned NS/Same day cancellations may result in delay in program or program completion hold. Noted: DE series needs to be a monthly series or insurance company may require repeat of the entire series. 5) [x] Smoker/tobacco products including vaping: reviewed need for cessation before surgery clearance and life long abstinence after surgery for best outcomes. Patient navigation to surgery: [x] Explained to patient that average time from initial consult to date of surgery can be 6-8 months. - Process can take longer if there are cancelled appointments, delays in testing and/or additional clearances that needs to be completed. - Reviewed importance of patient active engagement in making and keeping appointments to keep the process moving. - Reinforced need to cancel appointments at least 48 hours in advance. Reviewed that instances of No Shows and Same Day Appointment Cancellations may result in program/surgery delay or hold. [x] Patient advised of importance of having voicemail and MyChart for office communications and lab/testing results before and after surgery. documented in this encounter 01-14-2024 Note Addended by: MARY EDGE on: 01/14/2024 09:03 AM Modules accepted: Orders 01-14-2024 Note Addended by: MARY EDGE on: 01/14/2024 09:03 AM Modules accepted: Orders 01-14-2024 Note Addended by: MARY EDGE on: 01/14/2024 09:03 AM Modules accepted: Orders T 01-14-2024 Note Addended by: MARY EDGE on: 01/14/2024 09:03 AM Modules accepted: Orders 01-14-2024 Note Addended by: MARY EDGE on: 01/14/2024 09:03 AM Modules accepted: Orders T 01-14-2024 Note Addended by: MARY EDGE on: 01/14/2024 09:03 AM Modules accepted: Orders T 01-14-2024 Note Addended by: MARY EDGE on: 01/14/2024 09:03 AM Modules accepted: Orders [facility] 01-14-2024 Telephone encounter Note Orders signed. Checklist completed. EGD order placed and routed to production scheduler. 01-14-2024 History of Present illness Narrative ENDOSCOPY ORDERS To be scheduled with: Dr. Winters Patient is: Pre-op/Pre-Bariatric Surgery CPT code: EGD with biopsy- CPT 76067 Diagnosis: GERD- K21.9 If pre-op, Diet & Exercise Requirements are, and started/scheduled on : 6 months Home O2: No Known Difficult Intubation: No The medication list needs reviewed at time of scheduling and again at time of reminder call. GLP-1 agonists: Semaglutide Brand names- Ozempic or Wegovy- needs held 1 week prior to procedure Brand name- Rybelsus PO daily dosing and just needs held 1 day before procedure Tirzepatide Brand names- Mounjaro or Zepbound- needs held 1 week prior to procedure Dulaglutide (Trulicity)- needs held 1 week prior to procedure Liraglutide (Victoza)- daily injectable that just needs held 1 day before procedure) Exenatide Brand name Bydureon- needs held 1 week prior to procedure Brand name Byetta- daily injectable and just needs held 1 day before procedure Blood thinners: Aspirin Xarleto (rivaroxaban) Eliquis (apixaban) Plavix (clopidogrel) Warfarin/Jantoven (coumadin) Brillinta (ticagrelor) Pradaxa (dabigatran) If endoscopy is scheduled within 17 days authorization will need to be obtained prior to scheduling documented in this encounter 01-14-2024 History of Present illness Narrative ENDOSCOPY ORDERS To be scheduled with: Dr. Winters Patient is: Pre-op/Pre-Bariatric Surgery CPT code: EGD with biopsy- CPT 19982 Diagnosis: GERD- K21.9 If pre-op, Diet & Exercise Requirements are, and started/scheduled on : 6 months Home O2: No Known Difficult Intubation: No The medication list needs reviewed at time of scheduling and again at time of reminder call. GLP-1 agonists: Semaglutide Brand names- Ozempic or Wegovy- needs held 1 week prior to procedure Brand name- Rybelsus PO daily dosing and just needs held 1 day before procedure Tirzepatide Brand names- Mounjaro or Zepbound- needs held 1 week prior to procedure Dulaglutide (Trulicity)- needs held 1 week prior to procedure Liraglutide (Victoza)- daily injectable that just needs held 1 day before procedure) Exenatide Brand name Bydureon- needs held 1 week prior to procedure Brand name Byetta- daily injectable and just needs held 1 day before procedure Blood thinners: Aspirin Xarleto (rivaroxaban) Eliquis (apixaban) Plavix (clopidogrel) Warfarin/Jantoven (coumadin) Brillinta (ticagrelor) Pradaxa (dabigatran) If endoscopy is scheduled within 17 days authorization will need to be obtained prior to scheduling Printed documented in this encounter 01-14-2024 History of Present illness Narrative ENDOSCOPY ORDERS To be scheduled with: Dr. Winters Patient is: Pre-op/Pre-Bariatric Surgery CPT code: EGD with biopsy- CPT 29847 Diagnosis: GERD- K21.9 If pre-op, Diet & Exercise Requirements are, and started/scheduled on : 6 months Home O2: No Known Difficult Intubation: No The medication list needs reviewed at time of scheduling and again at time of reminder call. GLP-1 agonists: Semaglutide Brand names- Ozempic or Wegovy- needs held 1 week prior to procedure Brand name- Rybelsus PO daily dosing and just needs held 1 day before procedure Tirzepatide Brand names- Mounjaro or Zepbound- needs held 1 week prior to procedure Dulaglutide (Trulicity)- needs held 1 week prior to procedure Liraglutide (Victoza)- daily injectable that just needs held 1 day before procedure) Exenatide Brand name Bydureon- needs held 1 week prior to procedure Brand name Byetta- daily injectable and just needs held 1 day before procedure Blood thinners: Aspirin Xarleto (rivaroxaban) Eliquis (apixaban) Plavix (clopidogrel) Warfarin/Jantoven (coumadin) Brillinta (ticagrelor) Pradaxa (dabigatran) If endoscopy is scheduled within 17 days authorization will need to be obtained prior to scheduling Printed Left VM for patient to call and schedule EGD. documented in this encounter 01-14-2024 History of Present illness Narrative ENDOSCOPY ORDERS To be scheduled with: Dr. Winters Patient is: Pre-op/Pre-Bariatric Surgery CPT code: EGD with biopsy- CPT 98371 Diagnosis: GERD- K21.9 If pre-op, Diet & Exercise Requirements are, and started/scheduled on : 6 months Home O2: No Known Difficult Intubation: No The medication list needs reviewed at time of scheduling and again at time of reminder call. GLP-1 agonists: Semaglutide Brand names- Ozempic or Wegovy- needs held 1 week prior to procedure Brand name- Rybelsus PO daily dosing and just needs held 1 day before procedure Tirzepatide Brand names- Mounjaro or Zepbound- needs held 1 week prior to procedure Dulaglutide (Trulicity)- needs held 1 week prior to procedure Liraglutide (Victoza)- daily injectable that just needs held 1 day before procedure) Exenatide Brand name Bydureon- needs held 1 week prior to procedure Brand name Byetta- daily injectable and just needs held 1 day before procedure Blood thinners: Aspirin Xarleto (rivaroxaban) Eliquis (apixaban) Plavix (clopidogrel) Warfarin/Jantoven (coumadin) Brillinta (ticagrelor) Pradaxa (dabigatran) If endoscopy is scheduled within 17 days authorization will need to be obtained prior to scheduling Printed Left VM for patient to call and schedule EGD. Patient is scheduled for EGD with biopsy- CPT 61563 on March 10, 2024 at 10:20 am. Contact attempts- 3 must be made in 2 different forms. Discussed with patient via phone and sent Adomo message after confirming pt active on Adomo Important info discussed as applicable: Is patient on a GLP-1 agonist? No If yes- which one? N/A Please advise that patient hold this medication for 1 week before EGD (a couple exceptions in list-please note if they are daily only held day prior to procedure) Is patient on a blood thinner? No If yes- which one? N/A Please advise that patient discuss instructions for holding this medication with the prescribing provider Auth required: No Insurance: [employer] I Notes: No Auth Required for CPT Code 59259 documented in this encounter 01-14-2024 History of Present illness Narrative ENDOSCOPY ORDERS To be scheduled with: Dr. Winters Patient is: Pre-op/Pre-Bariatric Surgery CPT code: EGD with biopsy- CPT 76851 Diagnosis: GERD- K21.9 If pre-op, Diet & Exercise Requirements are, and started/scheduled on : 6 months Home O2: No Known Difficult Intubation: No The medication list needs reviewed at time of scheduling and again at time of reminder call. GLP-1 agonists: Semaglutide Brand names- Ozempic or Wegovy- needs held 1 week prior to procedure Brand name- Rybelsus PO daily dosing and just needs held 1 day before procedure Tirzepatide Brand names- Mounjaro or Zepbound- needs held 1 week prior to procedure Dulaglutide (Trulicity)- needs held 1 week prior to procedure Liraglutide (Victoza)- daily injectable that just needs held 1 day before procedure) Exenatide Brand name Bydureon- needs held 1 week prior to procedure Brand name Bytehresa- daily injectable and just needs held 1 day before procedure Blood thinners: Aspirin Xarleto (rivaroxaban) Eliquis (apixaban) Plavix (clopidogrel) Warfarin/Jantoven (coumadin) Brillinta (ticagrelor) Pradaxa (dabigatran) If endoscopy is scheduled within 17 days authorization will need to be obtained prior to scheduling Printed Left for patient to call and schedule EGD. Patient is scheduled for EGD with biopsy- CPT 87547 on March 10, 2024 at 10:20 am. Contact attempts- 3 must be made in 2 different forms. Discussed with patient via phone and sent Adomo message after confirming pt active on Adomo Important info discussed as applicable: Is patient on a GLP-1 agonist? No If yes- which one? N/A Please advise that patient hold this medication for 1 week before EGD (a couple exceptions in list-please note if they are daily only held day prior to procedure) Is patient on a blood thinner? No If yes- which one? N/A Please advise that patient discuss instructions for holding this medication with the prescribing provider Auth required: No Insurance: [facility] MEDICAID I Notes: No Auth Required for CPT Code 32774 Call to pt for reminder call regarding endoscopy procedure. Left HIPAA compliant VM Is patient on a GLP-1 agonist? No If yes- which one? N/A Please advise that patient hold this medication for 1 week before EGD (a couple exceptions in list-please note if they are daily only held day prior to procedure) Is patient on a blood thinner? No If yes- which one? N/A Please advise that patient discuss instructions for holding this medication with the prescribing provider documented in this encounter 01-14-2024 Note Call to pt for remin leonardo call regarding endoscopy procedure. Left HIPAA compliant VM Is patient on a GLP-1 agonist? No If yes- which one? N/A Please advise that patient hold this medication for 1 week before EGD (a couple exceptions in list-please note if they are daily only held day prior to procedure) Is patient on a blood thinner? No If yes- which one? N/A Please advise that patient discuss instructions for holding this medication with the prescribing provider [facility] 01-14-2024 Note I have recommended p roceeding with the evaluation and work-up for the primary procedure as outlined below: Dr. Winters PATIENT SUMMARY Salmanilsa Browning 48 y.o. female with Body mass index is 46.24 kg/m?. Laparoscopic Eli-en-Y Gastric Bypass and Laparoscopic Liver Biopsy DM[] HTN[x] TRINA[] GERD[x] HL[] OA[x] Date of Surgery: KATHY Sevilla INITIAL TESTING RESULTS Labwork [x] CMP, TSH, Fasting Lipid Profile, Mg, Zinc, Vit B1 (whole blood), Vit B12, 25-OH Vit D, Fe, Ferritin, Folate Tobacco [x] Serum Nicotine / Cotinine [] Negative [] Positive PLEASE ADD SERUM NICOTINE/COTININE WITH INITIAL LABS ON ALL LRYGB PROCEDURES EGD [x] Dx: [] GERD [x] Dyspepsia [] Other Pathology [x] H. pylori [] Negative [] Positive UGI [] [] not ordered US Abdomen [] [] not ordered Hx of Stormy TRINA eval [] [] On CPAP / Obtain settings Hematology [] [] Hypercoagulation panel Toxicology [x] [x] Urine drug screen [x] EtOH screen Addtional [x] [x] Hgb A1c INITIAL CONSULTATIONS CLEARANCE / MANAGEMENT Psychology [x] Dietitian [x] Cardiology [x] Pulmonary [x] Others [] []Heme/Onc []Psychiatry []Pain mgmt PSD [] Physician supervised diet: []None []3 mos []6 mos Preop diet [] Preop low calorie diet: []None []1 wk []2 wks FINAL PRE-OP TESTING RESULTS Labwork [x] [x]Pre-op CBC [x]BMP []Serum Nicotine / Cotinine EKG [x] CXR [x] POST-OP MEDICATIONS Ulcer Ppx [] Omeprazole 20 mg PO []QD []BID Gallstone Ppx [] Ursodiol 300 mg []BID DVT Ppx [x] DVT prophylaxis per final preop visit estimated risk Estimated calculated risk: % Schedule final pre-operative office visit with surgeon, pre-operative education class, and pre-operative exercise class prior to date of surgery ATTESTATION I reviewed with the patient the details of the proposed operation. The risks benefits and options were discussed. Risks included but were not limited to bleeding, infection, damage to other surrounding organs, cardio-pulmonary complications related to anesthesia, conversion from laparoscopic to and open procedure, the need for reoperative or endoscopic therapy, the potential for prolonged mechanical ventilation, and . All questions were fully answered to the patient's satisfaction and they wish to proceed with surgical intervention. Greater than 51% of the 45 minute visit was spent as face to face encounter, counseling the patient and discussing the risks,benefits and options of surgery as well as the perioperative care plan. The patient was seen and examined independently and relevant data including a full chart rreview was performed by myself. Patient Care Team: Susan Sevilla as PCP - General (Family Medicine) Nate Winters MD as Surgeon (General Surgery) [facility] 01-14-2024 Telephone encounter Note I have recommended proceeding with the evaluation and work-up for the primary procedure as outlined below: Dr. Winters PATIENT SUMMARY Salma Browning 48 y.o. female with Body mass index is 46.24 kg/m . Laparoscopic Eli-en-Y Gastric Bypass and Laparoscopic Liver Biopsy DM[] HTN[x] TRINA[] GERD[x] HL[] OA[x] Date of Surgery: TBD Susan Sevilla INITIAL TESTING RESULTS Labwork [x] CMP, TSH, Fasting Lipid Profile, Mg, Zinc, Vit B1 (whole blood), Vit B12, 25-OH Vit D, Fe, Ferritin, Folate Tobacco [x] Serum Nicotine / Cotinine [] Negative [] Positive PLEASE ADD SERUM NICOTINE/COTININE WITH INITIAL LABS ON ALL LRYGB PROCEDURES EGD [x] Dx: [] GERD [x] Dyspepsia [] Other Pathology [x] H. pylori [] Negative [] Positive UGI [] [] not ordered US Abdomen [] [] not ordered Hx of Stormy TRINA eval [] [] On CPAP / Obtain settings Hematology [] [] Hypercoagulation panel Toxicology [x] [x] Urine drug screen [x] EtOH screen Addtional [x] [x] Hgb A1c INITIAL CONSULTATIONS CLEARANCE / MANAGEMENT Psychology [x] Dietitian [x] Cardiology [x] Pulmonary [x] Others [] []Heme/Onc []Psychiatry []Pain mgmt PSD [] Physician supervised diet: []None []3 mos []6 mos Preop diet [] Preop low calorie diet: []None []1 wk []2 wks FINAL PRE-OP TESTING RESULTS Labwork [x] [x]Pre-op CBC [x]BMP []Serum Nicotine / Cotinine EKG [x] CXR [x] POST-OP MEDICATIONS Ulcer Ppx [] Omeprazole 20 mg PO []QD []BID Gallstone Ppx [] Ursodiol 300 mg []BID DVT Ppx [x] DVT prophylaxis per final preop visit estimated risk Estimated calculated risk: % Schedule final pre-operative office visit with surgeon, pre-operative education class, and pre-operative exercise class prior to date of surgery ATTESTATION I reviewed with the patient the details of the proposed operation. The risks benefits and options were discussed. Risks included but were not limited to bleeding, infection, damage to other surrounding organs, cardio-pulmonary complications related to anesthesia, conversion from laparoscopic to and open procedure, the need for reoperative or endoscopic therapy, the potential for prolonged mechanical ventilation, and . All questions were fully answered to the patient's satisfaction and they wish to proceed with surgical intervention. Greater than 51% of the 45 minute visit was spent as face to face encounter, counseling the patient and discussing the risks,benefits and options of surgery as well as the perioperative care plan. The patient was seen and examined independently and relevant data including a full chart rreview was performed by myself. Patient Care Team: Susan Sevilla as PCP - General (Family Medicine) Nate Winters MD as Surgeon (General Surgery) T 01-12-2024 Note Patient Outreach (IN [facility]) ---- SALMA BROWNING ([id number]) 1975 F CHT Date Time Provider Department 01/12/24 SUSAN SEVILLA During your visit today, we recorded the following information about you: Allergies As of Date: 01/12/2024 Noted Allergy Reaction BUPROPION 12/30/2007 9 - Itching Date Reviewed: 12/13/2023 Reviewed by: Adia Diana MA - Fully Assessed Visit Diagnosis:Encounter for screening mammogram for breast cancer [Z12.31] Order(s):[facility] [[id number]] Order #: [id number] FUTURE Prescriptions as of 01/17/2024 - lisinopril (ZESTRIL) 10 mg tablet Take 1 tablet by mouth once daily. - topiramate (TOPAMAX) 25 mg capsule Take 1 capsule by mouth two times a day. - tiZANidine (ZANAFLEX) 4 mg tablet Take 1 tablet by mouth once daily. - Pseudoephedrine-guaiFENesin (MUCINEX D MAXIMUM STRENGTH) 120-1,200 mg tab ER 12 hr Take 1 tablet by mouth once daily as needed (congestion). - PARoxetine (PAXIL) 20 mg tablet Take 1 tablet by mouth once daily. Take with additional 40 mg tablet. - benzonatate (TESSALON PERLES) 100 mg capsule Take 1 capsule by mouth three times a day as needed for cough. - PARoxetine (PAXIL) 40 mg tablet Take 1 tablet by mouth once daily. - hydrOXYzine HCl (ATARAX) 25 mg tablet Take 1 tablet by mouth three times a day as needed for anxiety. - Cholecalciferol, Vitamin D3, (DIALYVITE VITAMIN D) 125 mcg (5,000 unit) cap Take 1 capsule by mouth once daily. - celecoxib (CELEBREX) 200 mg capsule Take 1 capsule by mouth twice daily - rizatriptan (MAXALT) 10 mg tablet Take 1 tablet (10 mg) by mouth as needed for migraine headache (see administration instructions). - omeprazole (PRILOSEC) 40 mg capsule Take 1 capsule by mouth two times a day. - NIFEdipine XL (ADALAT CC) 30 mg 24 hr tablet Take 1 tablet by mouth once daily. 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*09/02/2005 10/12/2014 HEMORRHOIDS NOS [K64.9] 04/25/2008 Restless legs syndrome (RLS) [G25.81] 06/29/2006 02/08/2013 COUGH [R05.9] 02/01/2007 04/25/2008 DEPRESSIVE DISORDER NEC [F32.89] 02/02/2007 10/12/2014 Closed fracture of lateral malleolus [S82.63XA] 09/03/2008 02/08/2013 Nonunion of fracture [SNO3934] 02/11/2009 02/08/2013 Urticaria [L50.9] 05/10/2009 02/08/2013 Anxiety associated with depression [F41.8] 06/30/2010 Sprain of neck [S13.9XXA] 08/20/2010 01/26/2013 Atrophic gastritis without mention of hemorrhag*09/22/2010 10/12/2014 Diaphragmatic hernia without mention of obstruc*09/22/2010 10/12/2014 Esophagitis, unspecified [K20.90] 09/22/2010 10/12/2014 Panic attack [F41.0] 11/13/2010 02/08/2013 Lumbar disc displacement without myelopathy [M5*12/25/2011 10/12/2014 DDD (degenerative disc disease), lumbar [M51.36*12/25/2011 10/12/2014 Cervical strain [S16.1XXA] 12/25/2011 01/26/2013 Cervicalgia [M54.2] 12/25/2011 01/26/2013 GERD (gastroesophageal reflux disease) [K21.9] 03/15/2012 Esophageal spasm [K22.4] 03/15/2012 10/12/2014 DDD (degenerative disc disease), cervical [M50.*06/16/2012 10/12/2014 Paresthesia of bilateral legs [R20.2] 06/16/2012 10/12/2014 Controlled substance agreement signed [Z79.899] 02/08/2013 10/12/2014 Gonorrhea [A54.9] 08/24/2013 10/12/2014 Cervical high risk human papillomavirus (HPV) D*10/27/2013 10/12/2014 ASCUS favor benign, HPV+, acute inflammation on*10/27/2013 Abnormal antibody titer [R76.0] 03/05/2014 10/12/2014 Advanced maternal age (AMA), 40 years or greate*07/10/2014 10/12/2014 Abnormal O'Howe glucose challenge test, ant*08/23/2014 02/19/2016 [Z34.90] 10/10/2014 10/12/2014 Chronic hypertension; recently dx with superimp*10/10/2014 Volume overload [E87.70] 10/10/2014 10/12/2014 SUMMARY [V999.95] 10/10/2014 10/12/2014 Chronic neck and back pain - known cervical and*10/12/2014 Pre-eclampsia added to pre-existing hypertensio*11/17/2014 02/19/2016 Chronic pain of left knee [M25.562, G89.29] 07/03/2015 02/19/2016 Primary osteoarthritis of both knees [M17.0] 11/01/2015 Chronic midline low back pain with bilateral sc*02/09/2016 Reactive depression [F32.9] 02/09/2016 Stress and adjustment reaction [F43.29] 02/09/2016 Migraine with aura, not intractable, without st*08/15/2018 Encounter Status:Closed by EPIC, PRODUSER on 01/17/[address] [facility] 01-04-2024 Note Initial New BCC surg ical patient Navigation & Financial Counseling Discussion Patient Communication: In office SURGEON: [] ANEL [] BROCK [] MP [x] TB [] LM PROCEDURE: [] LRYGB [] LSG [] FLORA-S [] FLORA [] UNDECIDED [] REV: SPECIFY: Confirmed pt wants to continue with surgical program/plan [] YES [] NO (complete program withdrawal note/process) CO-MORBIDS: [] NONE [] DM []HTN [] TRINA []GERD [] OTH: PRIVATE PAY: [] NO []YES DATE OF INITIAL BENEFITS VERIFICATION: TRANSFER FU: [] YES [] NO PRIMARY INSURANCE: Payor: [employer] / Plan: [employer] ODM / Product Type: Medicaid HMO / BENEFIT ON PLAN: [] NO [] YES BENEFIT MAX: [] NO [] YES -- BENEFIT MAX: $ EMPLOYER: DIET AND EXERCISE (DE) REQUIREMENT PRIMARY [] NONE []3M [x] 6M []9M [] Medicare 4 Months [] SPR (3M) []OTHER: SECONDARY INSURANCE: BENEFIT ON PLAN: [] NO [] YES BENEFIT MAX: [] NO [] YES -- BENEFIT MAX: $ AUTH REQUIRED FROM SECONDARY [] NO [] YES DIET AND EXERCISE REQUIREMENT SECONDARY [] NONE []3M [] 6M [] Medicare 4 months [] SPR (3M) []OTHER: ___ [x] Discussed with patient: Financial cost overview (document signed and pt given copy at new pt consult visit with surgeon), Initial appointments: Bariatric Nutrition Assessment (BNA) & Diet and Exercise (DE) Patient to look for yellow envelope in mail. This yellow envelope will contain orders for labs, testing and required clearances. Pt encouraged to complete early in program to prevent delays. Encourage blood work to be draw by 1st DE appointment. [x] Reviewed OOP cost, including: [x] Overview of inpatient admission benefits - estimated inpatient co-pays, deductibles and/or co-insurance - Estimated OOP costs form reviewed with patient, and copy given to patient at new pt visit. [x] Reviewed next steps with patient: 1) Scheduled at new pt surgeon visit: Forester Aide (RD) for a Nutrition Assessment (BNA) and Pre-operative Diet and Exercise (DE) appointment #1. [x] Patient reminded to arrive 15 minutes early for check in. Late arrivals may need to be rescheduled. 2) Schedule: Diet and Exercise Apt #2 only scheduled after initial BNA and DE completed, 3) Behavioral Health apt scheduled after DE started. Reviewed rational and goal of Behavioral Health appointments. 4) [x] Reinforced need to cancel any WMI appointments 48 hours in advance. Cautioned NS/Same day cancellations may result in delay in program or program completion hold. Noted: DE series needs to be a monthly series or insurance company may require repeat of the entire series. 5) [x] Smoker/tobacco products including vaping: reviewed need for cessation before surgery clearance and life long abstinence after surgery for best outcomes. Patient navigation to surgery: [x] Explained to patient that average time from initial consult to date of surgery can be 6-8 months. - Process can take longer if there are cancelled appointments, delays in testing and/or additional clearances that needs to be completed. - Reviewed importance of patient active engagement in making and keeping appointments to keep the process moving. - Reinforced need to cancel appointments at least 48 hours in advance. Reviewed that instances of No Shows and Same Day Appointment Cancellations may result in program/surgery delay or hold. [x] Patient advised of importance of having voicemail and MyChart for office communications and lab/testing results before and after surgery. [facility] 01-04-2024 Telephone encounter Note Initial New [facility] surgical patient Navigation & Financial Counseling Discussion Patient Communication: In office SURGEON: [] ANEL [] AD [] MP [x] TB [] LM PROCEDURE: [] LRYGB [] LSG [] FLORA-S [] FLORA [] UNDECIDED [] REV: SPECIFY: Confirmed pt wants to continue with surgical program/plan [] YES [] NO (complete program withdrawal note/process) CO-MORBIDS: [] NONE [] DM []HTN [] TRINA []GERD [] OTH: PRIVATE PAY: [] NO []YES DATE OF INITIAL BENEFITS VERIFICATION: TRANSFER FU: [] YES [] NO PRIMARY INSURANCE: Payor: [facility] MEDICAID / Plan[facility] ODM / Product Type: Medicaid HMO / BENEFIT ON PLAN: [] NO [] YES BENEFIT MAX: [] NO [] YES -- BENEFIT MAX: $ EMPLOYER: DIET AND EXERCISE (DE) REQUIREMENT PRIMARY [] NONE []3M [x] 6M []9M [] Medicare 4 Months [] SPR (3M) []OTHER: SECONDARY INSURANCE: BENEFIT ON PLAN: [] NO [] YES BENEFIT MAX: [] NO [] YES -- BENEFIT MAX: $ AUTH REQUIRED FROM SECONDARY [] NO [] YES DIET AND EXERCISE REQUIREMENT SECONDARY [] NONE []3M [] 6M [] Medicare 4 months [] SPR (3M) []OTHER: ___ [x] Discussed with patient: Financial cost overview (document signed and pt given copy at new pt consult visit with surgeon), Initial appointments: Bariatric Nutrition Assessment (BNA) & Diet and Exercise (DE) Patient to look for yellow envelope in mail. This yellow envelope will contain orders for labs, testing and required clearances. Pt encouraged to complete early in program to prevent delays. Encourage blood work to be draw by 1st DE appointment. [x] Reviewed OOP cost, including: [x] Overview of inpatient admission benefits - estimated inpatient co-pays, deductibles and/or co-insurance - Estimated OOP costs form reviewed with patient, and copy given to patient at new pt visit. [x] Reviewed next steps with patient: 1) Scheduled at new pt surgeon visit: Forester Aide (RD) for a Nutrition Assessment (BNA) and Pre-operative Diet and Exercise (DE) appointment #1. [x] Patient reminded to arrive 15 minutes early for check in. Late arrivals may need to be rescheduled. 2) Schedule: Diet and Exercise Apt #2 only scheduled after initial BNA and DE completed, 3) Behavioral Health apt scheduled after DE started. Reviewed rational and goal of Behavioral Health appointments. 4) [x] Reinforced need to cancel any WMI appointments 48 hours in advance. Cautioned NS/Same day cancellations may result in delay in program or program completion hold. Noted: DE series needs to be a monthly series or insurance company may require repeat of the entire series. 5) [x] Smoker/tobacco products including vaping: reviewed need for cessation before surgery clearance and life long abstinence after surgery for best outcomes. Patient navigation to surgery: [x] Explained to patient that average time from initial consult to date of surgery can be 6-8 months. - Process can take longer if there are cancelled appointments, delays in testing and/or additional clearances that needs to be completed. - Reviewed importance of patient active engagement in making and keeping appointments to keep the process moving. - Reinforced need to cancel appointments at least 48 hours in advance. Reviewed that instances of No Shows and Same Day Appointment Cancellations may result in program/surgery delay or hold. [x] Patient advised of importance of having voicemail and MyChart for office communications and lab/testing results before and after surgery. T 01-04-2024 History of Present illness Narrative BARIATRIC AND METABOLIC SURGERY [facility] INITIAL EVALUATION - HISTORY AND PHYSICAL 01/04/2024 PATIENT: Salma Browning DATE OF : 1975 ---- HISTORY OF PRESENT ILLNESS Chief Complaint: Morbid Obesity and associated comorbid conditions. Salma Browning is a 48 y.o. female with morbid obesity and associated comorbid conditions who presents to the [facility] for [facility]. The patient stands Height: 5' 4 (162.6 cm) tall with a weight of Weight: 269 lb 6.4 oz (122 kg) , and has a BMI of Body mass index is 46.24 kg/m .. The patient has failed multiple attempts at non-surgical weight loss, and is now seeking surgical intervention to promote permanent and consistent weight loss. The patient suffers from multiple co-morbidities as a result of morbid obesity as outlined in the past medical history. The patient denies a history of myocardia infarction, deep vein thrombosis, pulmonary embolism, renal failure, hepatic failure, stroke, and seizure. She does not smoke, and does drink alcohol. Reports GERD is controlled with BID Omeprazole. Reports reflux if she misses a dose. Denies psych admit in the last 12 months. Review of Systems Constitutional: Negative for fatigue and fever. HENT: Negative for congestion, rhinorrhea and trouble swallowing. Respiratory: Negative for cough, chest tightness and shortness of breath. Cardiovascular: Negative for chest pain, palpitations and leg swelling. Gastrointestinal: Negative for abdominal distention, abdominal pain, blood in stool, constipation, diarrhea and nausea. GERD Genitourinary: Negative for dysuria, flank pain, frequency and urgency. Musculoskeletal: Positive for arthralgias. Negative for back pain and myalgias. Skin: Negative for color change and rash. Neurological: Negative for light-headedness and headaches. Psychiatric/Behavioral: Negative for dysphoric mood. The patient is not nervous/anxious. PAST HISTORIES Past Medical History: Diagnosis Date Anxiety Arthritis Back pain Chest pain on exertion Daytime sleepiness Depression Difficulty sleeping Dizziness Fatigue GERD (gastroesophageal reflux disease) HTN (hypertension) Joint pain, hip Joint pain, knee Memory difficulties Morbid obesity, unspecified obesity type (HCC) 12/22/2023 Muscle weakness Pain management Snoring SOBOE (shortness of breath on exertion) Past Surgical History: Procedure Laterality Date ANKLE SURGERY 2005 x 2 - [place] CHOLECYSTECTOMY 2014 FACIAL SURGERY (HISTORICAL) 2019 several for MRSA HYSTERECTOMY 2016 [place] SINUS SURGERY 1999 [place] TONSILLECTOMY 1987 [facility] TUMOR EXCISION 2014 Lipoma of abdomen Family History Problem Relation Name Age of Onset Diabetes Mother Hypertension Mother Obesity Mother Hypertension Father Obesity Sister Diabetes Brother Hypertension Brother Obesity Brother Hypertension Maternal Grandmother Diabetes Maternal Grandmother Obesity Maternal Grandmother Heart disease Maternal Grandfather Hypertension Maternal Grandfather Diabetes Maternal Grandfather Obesity Maternal Grandfather Social History Tobacco Use Smoking status: Never Smokeless tobacco: Never Substance Use Topics Alcohol use: Yes Alcohol/week: 2.0 standard drinks of alcohol Types: 2 Cans of beer per week Comment: 2 cans weekly Patient's Medications New Prescriptions No medications on file Previous Medications ATENOLOL (TENORMIN) 50 MG TABLET Take 50 mg by mouth daily. [id number] (FIORICET) 50-300-40 MG CAPSULE Take 1 capsule by mouth. CELECOXIB (CELEBREX) 200 MG CAPSULE Take 200 mg by mouth 2 times daily. HYDROCODONE-ACETAMINOPHEN (NORCO) 5-325 MG TABLET Take 2 tablets by mouth. HYDROXYZINE HCL (ATARAX) 25 MG TABLET Take 25 mg by mouth every 8 hours as needed. LISINOPRIL 10 MG TABLET Take 10 mg by mouth in the morning. MECLIZINE (ANTIVERT) 25 MG TABLET TAKE 1 TABLET BY MOUTH EVERY 6 HOURS NEEDED FOR DIZZINESS NIFEDIPINE XL (PROCARDIA XL) 30 MG 24 HR TABLET Take 30 mg by mouth daily. OMEPRAZOLE (PRILOSEC) [address] CAPSULE Take 40 mg by mouth in the morning and 40 mg in the evening. PAROXETINE (PAXIL) 20 MG TABLET Take 20 mg by mouth every morning. PAROXETINE (PAXIL) 40 MG TABLET Take 40 mg by mouth daily. RIZATRIPTAN (MAXALT) 10 MG TABLET TAKE 1 TABLET BY MOUTH NEEDED FOR MIGRAINE HEADACHE. TIZANIDINE (ZANAFLEX) 4 MG TABLET Take 4 mg by mouth daily. VITAMIN D PO Take 1 tablet by mouth before bedtime. Modified Medications No medications on file Discontinued Medications No medications on file Allergies Allergen Reactions Wellbutrin [Bupropion] Itching PHYSICAL EXAM BP 138/86 Pulse 78 Temp 36.1 C (97 F) Resp 16 Ht 5' 4 (1.626 m) Wt 269 lb 6.4 oz (122 kg) BMI 46.24 kg/m General: This patient is awake, alert, and oriented, with normal affect and is in no apparent distress. Cardiac: Regular rate and rhythm without evidence of murmur. Respiratory: Clear to auscultation bilaterally with normal effort. Abdomen: Obese, soft, non-tender, non-distended without masses/ No evidence of abdominal hernia / Incisions consistent with previous surgeries. Head and Neck: Obese, normocephalic and atraumatic/soft and supple, no lymphadenopathy or obvious bruits. No thyroidmegaly. Extremities: No cyanosis, clubbing or edema/ No calf tenderness/No restrictions of movement, is ambulatory without assistance. Neurological: Intact x 4 extremities, normal sensation, no focal deficits notes. Skin: Skin cool, warm and dry. No rashes or lesions noted. Rectal: Deferred LABORATORY STUDIES Laboratory Studies: No results for input(s): NA, K, CL, CO2, BUN, CREATININE, GLUCOSE, CALCIUM in the last 72 hours. No results for input(s): WBC, RBC, HGB, HCT, MCV, MCH, MCHC, RDW, PLT, MPV in the last 72 hours. No results for input(s): ALKPHOS, ALT, AST, PROT, BILITOT, BILIDIR, LIPASE in the last 72 hours. No lab exists for component: LABALBU ASSESSMENT Based on today's evaluation, the patient is a candidate for surgery. She chose the procedure as documented below in the plan. In anticipation of weight reductive surgery now or in the future, we spent a great deal of time discussing the risks and benefits of , including but not limited to injury to intra-abdominal organs, breakdown of the gastric staple line, the need for re-operative therapy, prolonged hospitalization, mechanical ventilation, and . We discussed the possibility of bleeding, the need for blood transfusions, blood clots, hospital-acquired and intra-abdominal infection, anastomotic stricture, and worsening GERD. And we discussed the need for post-operative visit compliance, behavior modifications and diet changes, protein and vitamin supplementation, as well as routine scheduled and dedicated exercise. We discussed the potential weight loss benefit of approximately 60-70% of her excess body weight at 12-18 months post-op, as well as the possibility of insufficient weight loss or weight gain after 2 years post-operative time. Upon completion of all required pre-operative testing we will submit for insurance pre-authorization. If the patient has chosen or is strongly considering gastric bypass we discussed that in the event that gastric bypass could not be safely performed, such as extensive scar tissue, patient intolerance of anesthesia, excessive truncal obesity etc, the laparoscopic sleeve gastrectomy was discussed including the risks and benefits as listed above. The patient did agree to laparoscopic sleeve gastrectomy as an alternative procedure if the laparoscopic eli en y bypass could not be performed. PLAN Encounter Diagnoses Name Primary? Primary osteoarthritis of both knees Yes Gastroesophageal reflux disease without esophagitis Daytime sleepiness Primary hypertension Back pain, unspecified back location, unspecified back pain laterality, unspecified chronicity Morbid obesity with BMI of 45.0-49.9, adult (HCC) I have recommended proceeding with the evaluation and work-up for the primary procedure as outlined below: Dr. Winters PATIENT SUMMARY Salma Browning 48 y.o. female with Body mass index is 46.24 kg/m . Laparoscopic Eli-en-Y Gastric Bypass and Laparoscopic Liver Biopsy DM[] HTN[x] TRINA[] GERD[x] HL[] OA[x] Date of Surgery: TBD Susan Pierresimba INITIAL TESTING RESULTS Labwork [x] CMP, TSH, Fasting Lipid Profile, Mg, Zinc, Vit B1 (whole blood), Vit B12, 25-OH Vit D, Fe, Ferritin, Folate Tobacco [x] Serum Nicotine / Cotinine [] Negative [] Positive PLEASE ADD SERUM NICOTINE/COTININE WITH INITIAL LABS ON ALL LRYGB PROCEDURES EGD [x] Dx: [] GERD [x] Dyspepsia [] Other Pathology [x] H. pylori [] Negative [] Positive UGI [] [] not ordered US Abdomen [] [] not ordered Hx of Stormy TRINA eval [] [] On CPAP / Obtain settings Hematology [] [] Hypercoagulation panel Toxicology [x] [x] Urine drug screen [x] EtOH screen Addtional [x] [x] Hgb A1c INITIAL CONSULTATIONS CLEARANCE / MANAGEMENT Psychology [x] Dietitian [x] Cardiology [x] Pulmonary [x] Others [] []Heme/Onc []Psychiatry []Pain mgmt PSD [] Physician supervised diet: []None []3 mos []6 mos Preop diet [] Preop low calorie diet: []None []1 wk []2 wks FINAL PRE-OP TESTING RESULTS Labwork [x] [x]Pre-op CBC [x]BMP []Serum Nicotine / Cotinine EKG [x] CXR [x] POST-OP MEDICATIONS Ulcer Ppx [] Omeprazole 20 mg PO []QD []BID Gallstone Ppx [] Ursodiol 300 mg []BID DVT Ppx [x] DVT prophylaxis per final preop visit estimated risk Estimated calculated risk: % Schedule final pre-operative office visit with surgeon, pre-operative education class, and pre-operative exercise class prior to date of surgery ATTESTATION I reviewed with the patient the details of the proposed operation. The risks benefits and options were discussed. Risks included but were not limited to bleeding, infection, damage to other surrounding organs, cardio-pulmonary complications related to anesthesia, conversion from laparoscopic to and open procedure, the need for reoperative or endoscopic therapy, the potential for prolonged mechanical ventilation, and . All questions were fully answered to the patient's satisfaction and they wish to proceed with surgical intervention. Greater than 51% of the 45 minute visit was spent as face to face encounter, counseling the patient and discussing the risks,benefits and options of surgery as well as the perioperative care plan. The patient was seen and examined independently and relevant data including a full chart rreview was performed by myself. Patient Care Team: Susan Sevilla as PCP - General (Family Medicine) Nate Winters MD as Surgeon (General Surgery) [facility] SURGICAL WEIGHT LOSS MANAGEMENT PROGRAM Rooming Note - INITIAL CONSULTATION Patient: Salma Browning Date of : 1975 Service Date: 01/04/2024 Patient is here today to discuss the possibility of weight loss surgery. Physician Supervised D/E: 6 Weight Metrics: Vitals BP: 138/86 Heart Rate: 78 Resp: 16 Temp: 36.1 C (97 F) Baseline Measures Initial Height: 5' 4 (162.6 cm) Initial Weight: 269 lb 6.4 oz (122 kg) Initial BMI: 46.3 Initial EBW: 149 lb 6.4 oz (67.8 kg) Initial Waist Cricumference: 51 Initial Neck Circumference: 16.5 History of Difficult Intubation: No Patient is not on home O2 Completed by: Fátima Marin LPN documented in this encounter 01-04-2024 Note BARIATRIC AND METABO LIC SURGERY [facility] INITIAL EVALUATION - HISTORY AND PHYSICAL 01/04/2024 PATIENT: Salma Browning DATE OF : 1975 ---- HISTORY OF PRESENT ILLNESS Chief Complaint: Morbid Obesity and associated comorbid conditions. Salma Browning is a 48 y.o. female with morbid obesity and associated comorbid conditions who [facility]. The patient stands Height: 5' 4 (162.6 cm) tall with a weight of Weight: 269 lb 6.4 oz (122 kg) , and has a BMI of Body mass index is 46.24 kg/m?.. The patient has failed multiple attempts at non-surgical weight loss, and is now seeking surgical intervention to promote permanent and consistent weight loss. The patient suffers from multiple co-morbidities as a result of morbid obesity as outlined in the past medical history. The patient denies a history of myocardia infarction, deep vein thrombosis, pulmonary embolism, renal failure, hepatic failure, stroke, and seizure. She does not smoke, and does drink alcohol. Reports GERD is controlled with BID Omeprazole. Reports reflux if she misses a dose. Denies psych admit in the last 12 months. Review of Systems Constitutional: Negative for fatigue and fever. HENT: Negative for congestion, rhinorrhea and trouble swallowing. Respiratory: Negative for cough, chest tightness and shortness of breath. Cardiovascular: Negative for chest pain, palpitations and leg swelling. Gastrointestinal: Negative for abdominal distention, abdominal pain, blood in stool, constipation, diarrhea and nausea. GERD Genitourinary: Negative for dysuria, flank pain, frequency and urgency. Musculoskeletal: Positive for arthralgias. Negative for back pain and myalgias. Skin: Negative for color change and rash. Neurological: Negative for light-headedness and headaches. Psychiatric/Behavioral: Negative for dysphoric mood. The patient is not nervous/anxious. PAST HISTORIES Past Medical History: Diagnosis Date Anxiety Arthritis Back pain Chest pain on exertion Daytime sleepiness Depression Difficulty sleeping Dizziness Fatigue GERD (gastroesophageal reflux disease) HTN (hypertension) Joint pain, hip Joint pain, knee Memory difficulties Morbid obesity, unspecified obesity type (HCC) 12/22/2023 Muscle weakness Pain management Snoring SOBOE (shortness of breath on exertion) Past Surgical History: Procedure Laterality Date ANKLE SURGERY 2005 x 2 - [place] CHOLECYSTECTOMY 2014 FACIAL SURGERY (HISTORICAL) 2020 several for MRSA HYSTERECTOMY 2016 [place] SINUS SURGERY 2000 [place] TONSILLECTOMY 1987 [facility] TUMOR EXCISION 2014 Lipoma of abdomen Family History Problem Relation Name Age of Onset Diabetes Mother Hypertension Mother Obesity Mother Hypertension Father Obesity Sister Diabetes Brother Hypertension Brother Obesity Brother Hypertension Maternal Grandmother Diabetes Maternal Grandmother Obesity Maternal Grandmother Heart disease Maternal Grandfather Hypertension Maternal Grandfather Diabetes Maternal Grandfather Obesity Maternal Grandfather Social History Tobacco Use Smoking status: Never Smokeless tobacco: Never Substance Use Topics Alcohol use: Yes Alcohol/week: 2.0 standard drinks of alcohol Types: 2 Cans of beer per week Comment: 2 cans weekly Patient's Medications New Prescriptions No medications on file Previous Medications ATENOLOL (TENORMIN) 50 MG TABLET Take 50 mg by mouth daily. [id number]-[id number]-QVUUDAOR (FIORICET) 50-300-40 MG CAPSULE Take 1 capsule by mouth. CELECOXIB (CELEBREX) 200 MG CAPSULE Take 200 mg by mouth 2 times daily. HYDROCODONE-ACETAMINOPHEN (NORCO) 5-325 MG TABLET Take 2 tablets by mouth. HYDROXYZINE HCL (ATARAX) 25 MG TABLET Take 25 mg by mouth every 8 hours as needed. LISINOPRIL 10 MG TABLET Take 10 mg by mouth in the morning. MECLIZINE (ANTIVERT) 25 MG TABLET TAKE 1 TABLET BY MOUTH EVERY 6 HOURS NEEDED FOR DIZZINESS NIFEDIPINE XL (PROCARDIA XL) 30 MG 24 HR TABLET Take 30 mg by mouth daily. OMEPRAZOLE (PRILOSEC) [address] CAPSULE Take 40 mg by mouth in the morning and 40 mg in the evening. PAROXETINE (PAXIL) 20 MG TABLET Take 20 mg by mouth every morning. PAROXETINE (PAXIL) 40 MG TABLET Take 40 mg by mouth daily. RIZATRIPTAN (MAXALT) 10 MG TABLET TAKE 1 TABLET BY MOUTH NEEDED FOR MIGRAINE HEADACHE. TIZANIDINE (ZANAFLEX) 4 MG TABLET Take 4 mg by mouth daily. VITAMIN D PO Take 1 tablet by mouth before bedtime. Modified Medications No medications on file Discontinued Medications No medications on file Allergies Allergen Reactions Wellbutrin [Bupropion] Itching PHYSICAL EXAM BP 138/86 Pulse 78 Temp 36.1 ?C (97 ?F) Resp 16 Ht 5' 4 (1. (more content not included)... [facility] 12-13-2023 Note HNO ID: [id number] Author: OKSANA KENNEY PA-C Service: ? Author Type: Physician Bandoleer Packer Type: Progress Notes Filed: 12/13/2023 14:39 Note Text: Oksana Kenney PA-C Department of Orthopaedics Orthopaedics [address] [facility] [address] Dept: [phone] Dept December 13, 2023 CHIEF COMPLAINT: Follow Up of the Left Knee, Follow Up of the Right Knee, and 5 1/2 months post visit OA bilateral knees Ms. Salma Browning is a 48 year old female who presents with increased right knee pain after trimming some hedges at her mother's house 2 weeks ago. The hedges that she was trying right eye level, she denies any squatting, twisting or pivoting. She was standing when she felt a pop in her right knee. She was seen at [facility], placed in a knee immobilizer and provided with crutches which made things worse. Since the incident she has had increased pain mainly along the medial aspect of the knee. Having difficulty doing day-to-day tasks such as getting out of her fever chair at home. She is already taking Celebrex twice a day which she does not find to be effective. In the past she has tried ibuprofen which again was not effective. She tells me that she is hoping to meet with a weight loss surgeon in [facility] to discuss her options. ASSESSMENT: M17.0 Primary osteoarthritis of both knees (primary encounter diagnosis) E66.01 Morbid obesity (HCC) M25.561 Acute pain of right knee PLAN: We discussed trying a corticosteroid injection to see if we can get her knee pain under control. Again we discussed weight loss to slow the progression of her knee arthritis and potentially help her find some relief with her knee pain. Certainly if pain persist or if corticosteroid injection is unaffected we can get some additional imaging of the knee. Patient agrees to plan. Ms. Salma Browning was advised as to contrast therapies and/or to take analgesics/anti-inflammatories as needed and all contraindications were reviewed. OBJECTIVE: Ms. Salma Browning is a pleasant 48 year old in no apparent distress. Gen:There were no vitals taken for this visit. nl development, obese, no deformities ENT: Normocephalic, normal hearing, moist mucosa CV: Pulses:DP/PT= 2+ and symmetric, capillary refill < 2 secs, no peripheral edema/varicosities Skin: no rash, bruising or lesions. Good turgor. Psych: cooperative and appropriate, alert and oriented x 3, good mood and affect. Musculoskeletal: KNEE EXAM: Right: Alignment: Neutral Range of motion is lacking a few degrees secondary to tight hamstrings degrees in extension and 100 degrees of flexion. Extension La degrees Pain with ROM: Yes Effusion: Slight Tender to the palpation of Medial femoral condyle and Medial joint line Pain with patellar compression: No Stability: Anterior/Posterior stable and Varus/Valgus stable Hip Exam: flexion to 100+ degrees, full extension, internal/external rotation adequate, and no pain with log roll Neurovascular Status: Sensation Intact, Moves foot and ankle up AND down, and 2+ dorsalis pedis In addition to the comprehensive evaluation, assessment and plan outlined above, and as a distinct and separate element to the visit today, separate from weightloss discussion , we have made the determination to proceed with an injection to aid in the management of the patient's condition. We discussed the risks, benefits, alternatives and expected outcomes of this injection in detail, and the patient agreed to proceed. The procedure was performed as detailed below. Large Joint Arthro/Inj: R knee joint Informed Consent Consent Obtained: Verbal Effie Protocol A moment to CARE was completed. SIGN IN Sign in communication not applicable due to emergent procedure. Personnel directly involved with the procedure wore the appropriate PPE. Special Equipment: N/A Patient/Surrogate Stated/Verified: Patient name, Date of , Relevant allergies and Intended procedure TIME OUT Intended patient and procedure match the source document(s). Consent documented and matches the intended procedure. Relevant labs, photos, and/or imaging studies have been reviewed. Correct side/site marked and visible. Medications required for procedure verified. No fire risk assessment and interventions applicable. No implant(s) inserted. 12/13/2023 2:37 PM The procedure site was prepped in the usual sterile fashion. Site: R knee joint Medications: 6 mg betamethasone acetate-betamethasone sodium phosphate 6 mg/mL Anesthetics: 5 mL lidocaine (PF) 10 mg/mL (1 %) Outcome: Tolerated well, no immediate complications Post-injection instructions were reviewed with the patient and the patient voiced understanding of these instructions. SIGN OUT No specimen collected. All instruments, equipment, possible retained foreign bodies accounted for. Post-procedure f (more content not included)... [facility] 12-13-2023 History of Present illness Narrative Associated Order(s): Large Joint Arthro/Inj: R knee joint Post-Procedure Diagnose(s): Primary osteoarthritis of both knees; Acute pain of right knee Oksana Kenney PA-C Department of Orthopaedics Orthopaedics [address] [facility] [address] Dept: [phone] Dept December 13, 2023 CHIEF COMPLAINT: Follow Up of the Left Knee, Follow Up of the Right Knee, and 5 1/2 months post visit OA bilateral knees Ms. Salma Browning is a 48 year old female who presents with increased right knee pain after trimming some hedges at her mother's house 2 weeks ago. The hedges that she was trying right eye level, she denies any squatting, twisting or pivoting. She was standing when she felt a pop in her right knee. She was seen at [facility], placed in a knee immobilizer and provided with crutches which made things worse. Since the incident she has had increased pain mainly along the medial aspect of the knee. Having difficulty doing day-to-day tasks such as getting out of her fever chair at home. She is already taking Celebrex twice a day which she does not find to be effective. In the past she has tried ibuprofen which again was not effective. She tells me that she is hoping to meet with a weight loss surgeon in [facility] to discuss her options. ASSESSMENT: M17.0 Primary osteoarthritis of both knees (primary encounter diagnosis) E66.01 Morbid obesity (HCC) M25.561 Acute pain of right knee PLAN: We discussed trying a corticosteroid injection to see if we can get her knee pain under control. Again we discussed weight loss to slow the progression of her knee arthritis and potentially help her find some relief with her knee pain. Certainly if pain persist or if corticosteroid injection is unaffected we can get some additional imaging of the knee. Patient agrees to plan. Ms. Salma Browning was advised as to contrast therapies and/or to take analgesics/anti-inflammatories as needed and all contraindications were reviewed. OBJECTIVE: Ms. Salma Browning is a pleasant 48 year old in no apparent distress. Gen:There were no vitals taken for this visit. nl development, obese, no deformities ENT: Normocephalic, normal hearing, moist mucosa CV: Pulses:DP/PT= 2+ and symmetric, capillary refill < 2 secs, no peripheral edema/varicosities Skin: no rash, bruising or lesions. Good turgor. Psych: cooperative and appropriate, alert and oriented x 3, good mood and affect. Musculoskeletal: KNEE EXAM: Right: Alignment: Neutral Range of motion is lacking a few degrees secondary to tight hamstrings degrees in extension and 100 degrees of flexion. Extension La degrees Pain with ROM: Yes Effusion: Slight Tender to the palpation of Medial femoral condyle and Medial joint line Pain with patellar compression: No Stability: Anterior/Posterior stable and Varus/Valgus stable Hip Exam: flexion to 100+ degrees, full extension, internal/external rotation adequate, and no pain with log roll Neurovascular Status: Sensation Intact, Moves foot and ankle up & down, and 2+ dorsalis pedis In addition to the comprehensive evaluation, assessment and plan outlined above, and as a distinct and separate element to the visit today, separate from weightloss discussion , we have made the determination to proceed with an injection to aid in the management of the patient's condition. We discussed the risks, benefits, alternatives and expected outcomes of this injection in detail, and the patient agreed to proceed. The procedure was performed as detailed below. Large Joint Arthro/Inj: R knee joint Informed Consent Consent Obtained: Verbal Effie Protocol A moment to CARE was completed. SIGN IN Sign in communication not applicable due to emergent procedure. Personnel directly involved with the procedure wore the appropriate PPE. Special Equipment: N/A Patient/Surrogate Stated/Verified: Patient name, Date of , Relevant allergies and Intended procedure TIME OUT Intended patient and procedure match the source document(s). Consent documented and matches the intended procedure. Relevant labs, photos, and/or imaging studies have been reviewed. Correct side/site marked and visible. Medications required for procedure verified. No fire risk assessment and interventions applicable. No implant(s) inserted. 12/13/2023 2:37 PM The procedure site was prepped in the usual sterile fashion. Site: R knee joint Medications: 6 mg betamethasone acetate-betamethasone sodium phosphate 6 mg/mL Anesthetics: 5 mL lidocaine (PF) 10 mg/mL (1 %) Outcome: Tolerated well, no immediate complications Post-injection instructions were reviewed with the patient and the patient voiced understanding of these instructions. SIGN OUT No specimen collected. All instruments, equipment, possible retained foreign bodies accounted for. Post-procedure follow-up management communicated and Plan of Care Visit completed when applicable Imaging: [facility] November 29, 2023 Right knee x-rays for review. Impression: Interval development of minimal degenerative spurring about the medial lateral compartments. Knee effusion. No acute fracture or dislocation identified. Supporting Subjective Information Below: Past Surgical History: PAST SURGICAL HISTORY No date: CHOLECYSTECTOMY 05/09/2019: COLONOSCOPY FLX DX W/COLLJ SPEC WHEN PFRMD Comment: Colonoscopy 09/22/10: EGD TRANSORAL BIOPSY SINGLE/MULTIPLE 05/09/2019: ESOPHAGOGASTRODUODENOSCOPY TRANSORAL DIAGNOSTIC Comment: EGD 2017: HYSTERECTOMY HX Comment: TLH No date: PAST SURGICAL HISTORY OF Comment: Tumor removed from stomach, benign per pt 03/2009: PAST SURGICAL HISTORY OF Comment: left ankle fracture No date: REM LESIO TRUNK,ARM,LEG 1.1 -2.0CM 12/06/09: REMOVAL DEEP IMPLANT Comment: Performed by KATHI POWELL at [facility] 12/06/09: RPR DISLOC PERONEAL TENDON W/O FIBULAR OSTEOTOMY Comment: Performed by KATHI POWELL at [facility] 06/2004: SIGMOIDOSCOPY FLX DX W/COLLJ SPEC BR/WA IF PFRMD Comment: Sigmoidoscopy, flexible No date: SINUSOTOMY MAXILLARY ANTROTOMY INTRANASAL Comment: Byrd-Elliott sinusotomy No date: TONSILLECTOMY PRIMARY/SECONDARY <AGE 12 Comment: Tonsillectomy No date: VAGINOSCOPY Medications: Current Outpatient Medications Medication Sig lisinopril (ZESTRIL) 10 mg tablet Take 1 tablet by mouth once daily. topiramate (TOPAMAX) 25 mg capsule Take 1 capsule by mouth two times a day. tiZANidine (ZANAFLEX) 4 mg tablet Take 1 tablet by mouth once daily. PARoxetine (PAXIL) 20 mg tablet Take 1 tablet by mouth once daily. Take with additional 40 mg tablet. PARoxetine (PAXIL) 40 mg tablet Take 1 tablet by mouth once daily. hydrOXYzine HCl (ATARAX) 25 mg tablet Take 1 tablet by mouth three times a day as needed for anxiety. Cholecalciferol, Vitamin D3, (DIALYVITE VITAMIN D) 125 mcg (5,000 unit) cap Take 1 capsule by mouth once daily. celecoxib (CELEBREX) 200 mg capsule Take 1 capsule by mouth twice daily rizatriptan (MAXALT) 10 mg tablet Take 1 tablet (10 mg) by mouth as needed for migraine headache (see administration instructions). omeprazole (PRILOSEC) 40 mg capsule Take 1 capsule by mouth two times a day. NIFEdipine XL (ADALAT CC) 30 mg 24 hr tablet Take 1 tablet by mouth once daily. Pseudoephedrine-guaiFENesin (MUCINEX D MAXIMUM STRENGTH) 120-1,200 mg tab ER 12 hr Take 1 tablet by mouth once daily as needed (congestion). (Patient not taking: Reported on 12/03/2023) benzonatate (TESSALON PERLES) 100 mg capsule Take 1 capsule by mouth three times a day as needed for cough. (Patient not taking: Reported on 10/20/2023) No current facility-administered medications for this visit. Allergies: Bupropion ROS: General (negative for fatigue, malaise, weight loss/gain) HEENT (negative for headache, earache, recent vision changes, sinus pain, sore throat) Respiratory (no recent shortness of breath, hemoptysis) CV (negative for chest tightness, palpitations) Musculoskeletal (see HPI) Psych (no depression, anxiety) This note was partially generated using [employer] voice recognition system, and there may be some incorrect words, spellings, and punctuation that were not noted in checking the note before saving. Oksana Kenney PA-C Patient presents with: Left Knee - Follow Up Right Knee - Follow Up 5 1/2 months post visit OA bilateral knees AMB ROOMING INTAKE FLOWSHEET DATA Pain Pain Level: 8 Pain Location: Knee-Right Description: Sharp Duration Amount of Time: 2 Duration Units: Weeks Frequency: Continuous Intervention/Comfort measure: Medication Patient here for right knee pain. States 2 weeks ago she was trimming her mom's bushes and felt a pop in her knee. Seen at [facility] ED. She was given a knee immobilizer and crutches. She was unable to wear the immobilizer. She is having difficulty going up steps. She has to pull herself up the steps. Taking Celebrex for the pain and does not help. documented in this encounter [facility] 12-13-2023 Note HNO ID: [id number] Author: ADIA DIANA MA Service: ? Author Type: Hand I Cutter Type: Progress Notes Filed: 12/13/2023 14:39 Note Text: Patient presents with: Left Knee - Follow Up Right Knee - Follow Up 5 1/2 months post visit OA bilateral knees AMB ROOMING INTAKE FLOWSHEET DATA Pain Pain Level: 8 Pain Location: Knee-Right Description: Sharp Duration Amount of Time: 2 Duration Units: Weeks Frequency: Continuous Intervention/Comfort measure: Medication Patient here for right knee pain. States 2 weeks ago she was trimming her mom's bushes and felt a pop in her knee. Seen at [facility] ED. She was given a knee immobilizer and crutches. She was unable to wear the immobilizer. She is having difficulty going up steps. She has to pull herself up the steps. Taking Celebrex for the pain and does not help. [facility] 12-10-2023 Note HNO ID: [id number] Author: ALVIN MCINTOSH LISW Service: ? Author Type: Asw/Asuw Tactical Air Controller Type: Progress Notes Filed: 12/10/2023 08:28 Note Text: Behavioral Health Social Work Progress Note Patient identified for [facility] from: PCP Reason for referral: [facility] Assessment [facility] encounter type: DreamLineshart Message Attempts to Outreach: 3 attempts Referral made: Psychiatry - Internal Psychiatry-Internal referral type: Medication Management Final Disposition: Resources given Patient Discharged?: Yes Patient reported that caregiver was able to meet their needs today?: N/A Patient read CardioLogs message with requested resources by PCP. [facility] sent follow-up message to see if any additional questions or concerns exist and if she'd still like to schedule with Osiris Sanchez APRN.NORI. CLIFFORD Evans ACM-SW December 10, [address] [facility] 12-10-2023 History of Present illness Narrative Behavioral Health Social Work Progress Note Patient identified for [facility] from: PCP Reason for referral: [facility] Assessment [facility] encounter type: DreamLineshart Message Attempts to Outreach: 3 attempts Referral made: Psychiatry - Internal Psychiatry-Internal referral type: Medication Management Final Disposition: Resources given Patient Discharged?: Yes Patient reported that caregiver was able to meet their needs today?: N/A Patient read CardioLogs message with requested resources by PCP. [facility] sent follow-up message to see if any additional questions or concerns exist and if she'd still like to schedule with Osiris Sanchez APRN.NORI. CLIFFORD Evans ACM-SW December 10, 2023 documented in this encounter [facility] 12-03-2023 Telephone encounter Note Pharmacy notified. [facility] 12-03-2023 Miscellaneous Notes Pharmacy notified. Prior authorization approved Payer: [facility] Note from payer: Your PA request for [id number] was approved for 365 days. The PA# assigned is [id number]. Approval Details Authorization number: [id number] Authorized from December 03, 2023 to December 01, 2024 Electronic appeal: Not supported View History Medication Being Authorized topiramate (TOPAMAX) 25 mg capsule Take 1 capsule by mouth two times a day. Dispense: 60 capsule Refills: 5 Start: 12/03/2023 End: 05/31/2024 Class: Normal Diagnoses: Migraine with aura, not intractable, without status migrainosus This order has been released to its destination. To be filled at: [facility] [address] [place] [id number] - [address] [place] [address] documented in this encounter [facility] 12-03-2023 Telephone encounter Note Prior authorization approved Payer: [facility] Note from payer: Your PA request for [id number] was approved for 365 days. The PA# assigned is [id number]. Approval Details Authorization number: [id number] Authorized from December 03, 2023 to December 01, 2024 Electronic appeal: Not supported View History Medication Being Authorized topiramate (TOPAMAX) 25 mg capsule Take 1 capsule by mouth two times a day. Dispense: 60 capsule Refills: 5 Start: 12/03/2023 End: 05/31/2024 Class: Normal Diagnoses: Migraine with aura, not intractable, without status migrainosus This order has been released to its destination. To be filled at: [facility] [address] [place] [id number] - [id number] [place] [address] [facility] 12-03-2023 Telephone encounter Note Behavioral Health Social Work Progress Note Patient identified for [facility] from: PCP Reason for referral: [facility] Assessment [facility] encounter type: Telephone Encounter Attempts to Outreach: 1 attempt Referral made: Psychiatry - Internal Psychiatry-Internal referral type: Medication Management Final Disposition: Unable to reach Patient Discharged?: No Patient reported that caregiver was able to meet their needs today?: N/A [facility] consult received for anxiety. Would like to see Osiris Sanchez APRN.CNP for medication management. Phone call placed today that went to [employer]. Left my contact information and brief nature of call. Initial outreach also completed via CardioLogs sending list times/dates available to complete an assessment. CLIFFORD Evans, PALMA-KATIA December 03, 2023 [facility] Work Phone: 12-03-2023 Miscellaneous Notes Behavioral Health Social Work Progress Note Patient identified for [facility] from: PCP Reason for referral: [facility] Assessment [facility] encounter type: Telephone Encounter Attempts to Outreach: 1 attempt Referral made: Psychiatry - Internal Psychiatry-Internal referral type: Medication Management Final Disposition: Unable to reach Patient Discharged?: No Patient reported that caregiver was able to meet their needs today?: N/A [facility] consult received for anxiety. Would like to see Osiris Sanchez APRN.CNP for medication management. Phone call placed today that went to [employer]. Left my contact information and brief nature of call. Initial outreach also completed via CardioLogs sending list times/dates available to complete an assessment. CLIFFORD Evans ACM-SW December 03, 2023 documented in this encounter [facility] 12-03-2023 Instructions Mary Mcmillan APRN.CNP - 12/03/2023 1:21 PM EDT Add on Lisinopril 10 mg daily Monitor blood pressure at home, 130/80 is goal Watch salt and processed foods in the diet. Start Topamax 25 mg daily for the 1st week, then increase to twice daily Consult placed for bariatric medicine, will be faxed to Vianey Falcon's office ([facility]) Consult placed for behavioral health, you will get a phone call. They will help you schedule with Osiris JULIO (psychiatry) Keep scheduled appt with Cardiology Due for women's health exam in the next year. Follow up in 1 month for blood pressure Health Promotion: - Eat healthy -- go to otelz.com.gov to get started - Have a yearly physical - Mammogram yearly after age 40 - Get at least 30 minutes of physical activity daily - Get at least 7 to 8 hours of sleep each night - Reach and maintain a healthy weight - Get help to quit or don't start smoking - Limit alcohol use to one drink or less - Do not use illegal drugs or misuse prescription drugs - Wear a helmet when riding a bike and wear protective gear for sports - Wear a seatbelt in cars and not text and drive - Wear sunscreen documented in this encounter [facility] 12-03-2023 History of Present illness Narrative This is a 48 year old female who presents today with: Patient presents with: Wellness HISTORY OF PRESENT ILLNESS: Salma Browning is a 48 year old female. Patient presents with: Wellness Diet: Eating a well balanced diet. Refers that she is gaining weight. Exercise: Not as much due to knee pain. Vision: Had exam, wearing glasses. Dental: Had exam. Sleep: 5-6 hours per night, difficulty staying asleep. Mood: Still some on going anxiety. Over thinking and worry. Panic attacks a couple times per week. No SI/HI. See below Weight Gain: Has been trying to watch diet. Watching sugar and carbs in the diet. Drinking good amount of water. Exercise limited due to right knee pain. Labs in the past have been normal. Would like to have a consult for bariatric medicine. Insurance will not cover weight loss medication at this time. Right Knee Pain: Seen in ER, xrorlando WNL. Needs to follow up with Ortho, knee has been swollen, ER gave her a knee brace and crutches. Will have folllow up with Orthopedics. HTN: Taking Nifedipine XL 30 mg daily. Does not monitor blood pressure at home. Denies chest pain, palpitations, or edema. Atenolol was discontinued in the past due to dizziness. Migraine: Using Maxalt 10 mg as needed. Getting 3 migraines per week. Will get photophobia and phonophobia. Medication is helpful. No N/V. Anxiety: Taking Paxil 60 mg daily. Using hydroxyzine as needed. GERD: Taking omeprazole 40 mg daily. Stable. Arthritis: Taking Celebrex 200 mg twice daily. Dizziness: On going dizziness, occurring at least once daily. Has appt with [facility] next for further evaluation. Lasting 30 minutes. No palpitations or chest pain. Still having on going. Up coming stress test as well. Mammogram: Appt next week History of hystrectomy PAST MEDICAL HISTORY: PAST MEDICAL HISTORY No date: Abnormal antibody titer Comment: On type and screen during #2. Repeat nl, no major antibodies, negative repeat antibody screen. ?False positive. 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 ?hiatal hernia. 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, bile ducts, and liver Comment: Dr Rivera 11/17/2014: Pre-eclampsia added to pre-existing hypertension No date: Unspecified hemorrhoids without mention of complication Comment: Hemorrhoids PAST SURGICAL HISTORY No date: CHOLECYSTECTOMY 05/09/2019: COLONOSCOPY FLX DX W/COLLJ SPEC WHEN PFRMD Comment: Colonoscopy 09/22/10: EGD TRANSORAL BIOPSY SINGLE/MULTIPLE 05/09/2019: ESOPHAGOGASTRODUODENOSCOPY TRANSORAL DIAGNOSTIC Comment: EGD 2017: HYSTERECTOMY HX Comment: TLH No date: PAST SURGICAL HISTORY OF Comment: Tumor removed from stomach, benign per pt 03/2009: PAST SURGICAL HISTORY OF Comment: left ankle fracture No date: REM LESIO TRUNK,ARM,LEG 1.1 -2.0CM 12/06/09: REMOVAL DEEP IMPLANT Comment: Performed by KATHI POWELL at [facility] 12/06/09: RPR DISLOC PERONEAL TENDON W/O FIBULAR OSTEOTOMY Comment: Performed by KATHI POWELL at [facility] 06/2004: SIGMOIDOSCOPY FLX DX W/COLLJ SPEC BR/WA IF PFRMD Comment: Sigmoidoscopy, flexible No date: SINUSOTOMY MAXILLARY ANTROTOMY INTRANASAL Comment: Byrd-Elliott sinusotomy No date: TONSILLECTOMY PRIMARY/SECONDARY <AGE 12 Comment: Tonsillectomy No date: VAGINOSCOPY ALLERGIES Bupropion MEDICATIONS Current Outpatient Medications Medication Sig tiZANidine (ZANAFLEX) 4 mg tablet Take 1 tablet by mouth once daily. Pseudoephedrine-guaiFENesin (MUCINEX D MAXIMUM STRENGTH) 120-1,200 mg tab ER 12 hr Take 1 tablet by mouth once daily as needed (congestion). PARoxetine (PAXIL) 20 mg tablet Take 1 tablet by mouth once daily. Take with additional 40 mg tablet. benzonatate (TESSALON PERLES) 100 mg capsule Take 1 capsule by mouth three times a day as needed for cough. (Patient not taking: Reported on 10/20/2023) PARoxetine (PAXIL) 40 mg tablet Take 1 tablet by mouth once daily. hydrOXYzine HCl (ATARAX) 25 mg tablet Take 1 tablet by mouth three times a day as needed for anxiety. Cholecalciferol, Vitamin D3, (DIALYVITE VITAMIN D) 125 mcg (5,000 unit) cap Take 1 capsule by mouth once daily. celecoxib (CELEBREX) 200 mg capsule Take 1 capsule by mouth twice daily rizatriptan (MAXALT) 10 mg tablet Take 1 tablet (10 mg) by mouth as needed for migraine headache (see administration instructions). omeprazole (PRILOSEC) 40 mg capsule Take 1 capsule by mouth two times a day. NIFEdipine XL (ADALAT CC) 30 mg 24 hr tablet Take 1 tablet by mouth once daily. No current facility-administered medications for this visit. FAMILY HISTORY Problem Relation Age of Onset Diabetes Mother other (colon polyps [Other]) Father no cancer found Heart Father Hypertension Father Ischemic Heart Disease Father Coronary Artery Disease Father COPD Father Thyroid Brother Social History Tobacco Use Smoking status: Never Smokeless tobacco: Never Vaping Use Vaping status: Never Used Substance Use Topics Alcohol use: Yes Comment: rarely, 1-2 weekends per month 5 drinks (prior to ) Drug use: No REVIEW OF SYSTEMS GENERAL: Weight Gain HEENT: Negative for frequent or significant headaches, No changes in hearing or vision. NECK: Negative for lumps, goiter, pain and significant neck swelling RESPIRATORY: Negative for cough, hemoptysis, wheezing, dyspnea or shortness of breath CARDIOVASCULAR: Negative for chest pain, leg swelling, orthopnea, or palpitations GI: No nausea, vomiting, or diarrhea/constipation. No hematochezia/melena. No heartburn or reflux symptoms. : No history of dysuria, frequency or incontinence MUSCULOSKELETAL: Negative for joint pain or swelling. SKIN: Negative for lesions, rash, and itching ENDOCRINE: Negative for cold or heat intolerance, polyuria, polydipsia and goiter NEURO: + Headache MOOD: + Anxiety/Difficulty sleeping EXAM: BP 142/100 Pulse 88 Resp 16 Ht 162.6 cm (5' 4) Wt 126.8 kg (279 lb 8.7 oz) LMP (LMP Unknown) SpO2 97% BMI 47.98 kg/m PHYSICAL EXAM: General Appearance: Well appearing, alert, in no acute distress, well-hydrated, well nourished. Skin: Skin color, texture, turgor normal, no suspicious rashes or lesions. Head: Normocephalic, no masses, lesions, tenderness or abnormalities. Eyes: Anicteric sclera. Pupils are equally round and reactive to light. Extraocular movements are intact. Ears: External ears normal, canals clear. TMs pearly trivedi. Neck: Supple, no adenopathy; thyroid symmetric, normal size, no bruits. Lungs: Lungs clear to auscultation. No wheezing, rhonchi, rales. Heart: RRR without murmur, gallop, or rubs. No ectopy. Abdomen: Normal abdominal exam, Abdomen soft, non-tender. Bowel sounds normal. No masses, organomegaly. Extremities: No deformities, edema, skin discoloration, clubbing or cyanosis. Good capillary refill. . Musculoskeletal: Knee brace noted on the right knee. Peripheral Pulses: Normal, Capillary refill <2secs, strong peripheral pulses, Pulses palpable. Neurologic: Gait normal. Reflexes normal and symmetric. Sensation grossly intact.. Mood: Pleasant, good eye contact, engaged. ASSESSMENT/PLAN: 1. Wellness examination - ICD9: V70.0, ICD10: Z00.00 (primary diagnosis) - Counseled on healthy diet and regular exercise - Discussed need and benefit for weight loss. BMI 47.98 kg/(m^2) - Mammogram ordered - exam recommended once yearly - Follow up for annual exam in one year 2. BRITTANY (generalized anxiety disorder) - ICD9: 300.02, ICD10: F41.1 - Recommend consult with behavioral health, have appointment with Osiris JULIO for medication management. - CONSULT TO [facility] 3. Hypertension, essential - ICD9: 401.9, ICD10: I10 - Uncontrolled - Continue current medications - Start lisinopril - Recommend home blood pressure monitoring, to bring results to next visit - Encouraged sodium restriction, DASH or Mediterranean diet - Recommend regular aerobic exercise - Discussed need for and benefit of weight loss. BMI 47.98 kg/(m^2) - Follow up in 1 month. - LISINOPRIL 10 MG TABLET 4. Class 3 severe obesity with body mass index (BMI) of 45.0 to 49.9 in adult, unspecified obesity type, unspecified whether serious comorbidity present (HCC) - ICD9: 278.01, V85.42, ICD10: E66.01, Z68.42 - [facility] 5. Migraine with aura, not intractable, without status migrainosus - ICD9: 346.00, ICD10: G43.109 - Start Topamax 25 mg twice daily. - Continue with Maxalt as needed. - TOPIRAMATE 25 MG SPRINKLE CAPSULE 6. Primary osteoarthritis of both knees - ICD9: 715.16, ICD10: M17.0 - Continue to take medication as prescribed. 7. Gastroesophageal reflux disease, unspecified whether esophagitis present - ICD9: 530.81, ICD10: K21.9 - Stable, continue take current medication. 8. Women's annual routine gynecological examination - ICD9: V72.31, ICD10: Z01.419 - CONSULT TO GYNECOLOGY Follow up in 1 month or sooner as needed. Discussed treatment plan and patient voices understanding. Patient's questions answered appropriately. Medications and potential side effects were discussed and patient voices understanding. Mary Mcmillan APRN.CNP This note was partially generated using [employer] voice recognition system. Note was reviewed for accuracy. There may be minor misspellings or grammar miscues with [employer] voice recognition. documented in this encounter [facility] 12-03-2023 Note HNO ID: [id number] Author: MARY MCMILLAN APRN.CNP Service: ? Author Type: Nurse Practitioner Type: Progress Notes Filed: 12/03/2023 14:54 Note Text: This is a 48 year old female who presents today with: Patient presents with: Wellness HISTORY OF PRESENT ILLNESS: Salma Browning is a 48 year old female. Patient presents with: Wellness Diet: Eating a well balanced diet. Refers that she is gaining weight. Exercise: Not as much due to knee pain. Vision: Had exam, wearing glasses. Dental: Had exam. Sleep: 5-6 hours per night, difficulty staying asleep. Mood: Still some on going anxiety. Over thinking and worry. Panic attacks a couple times per week. No SI/HI. See below Weight Gain: Has been trying to watch diet. Watching sugar and carbs in the diet. Drinking good amount of water. Exercise limited due to right knee pain. Labs in the past have been normal. Would like to have a consult for bariatric medicine. Insurance will not cover weight loss medication at this time. Right Knee Pain: Seen in ER, xray WNL. Needs to follow up with Ortho, knee has been swollen, ER gave her a knee brace and crutches. Will have folllow up with Orthopedics. HTN: Taking Nifedipine XL 30 mg daily. Does not monitor blood pressure at home. Denies chest pain, palpitations, or edema. Atenolol was discontinued in the past due to dizziness. Migraine: Using Maxalt 10 mg as needed. Getting 3 migraines per week. Will get photophobia and phonophobia. Medication is helpful. No N/V. Anxiety: Taking Paxil 60 mg daily. Using hydroxyzine as needed. GERD: Taking omeprazole 40 mg daily. Stable. Arthritis: Taking Celebrex 200 mg twice daily. Dizziness: On going dizziness, occurring at least once daily. Has appt with [facility] next for further evaluation. Lasting 30 minutes. No palpitations or chest pain. Still having on going. Up coming stress test as well. Mammogram: Appt next week History of hystrectomy PAST MEDICAL HISTORY: PAST MEDICAL HISTORY No date: Abnormal antibody titer Comment: On type and screen during #2. Repeat nl, no major antibodies, negative repeat antibody screen. ?False positive. 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 ?hiatal hernia. 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, bile ducts, and liver Comment: Dr Rivera 11/17/2014: Pre-eclampsia added to pre-existing hypertension No date: Unspecified hemorrhoids without mention of complication Comment: Hemorrhoids PAST SURGICAL HISTORY No date: CHOLECYSTECTOMY 05/09/2019: COLONOSCOPY FLX DX W/COLLJ SPEC WHEN PFRMD Comment: Colonoscopy 09/22/10: EGD TRANSORAL BIOPSY SINGLE/MULTIPLE 05/09/2019: ESOPHAGOGASTRODUODENOSCOPY TRANSORAL DIAGNOSTIC Comment: EGD 2017: HYSTERECTOMY HX Comment: [facility] No date: PAST SURGICAL HISTORY OF Comment: Tumor removed from stomach, benign per pt 03/2009: PAST SURGICAL HISTORY OF Comment: left ankle fracture No date: REM LESIO TRUNK,ARM,LEG 1.1 -2.0CM 12/06/09: REMOVAL DEEP IMPLANT Comment: Performed by KATHI POWELL at [facility] 12/06/09: RPR DISLOC PERONEAL TENDON W/O FIBULAR OSTEOTOMY Comment: Performed by KATHI POWELL at [facility] 06/2004: SIGMOIDOSCOPY FLX DX W/COLLJ SPEC BR/WA IF PFRMD Comment: Sigmoidoscopy, flexible No date: SINUSOTOMY MAXILLARY ANTROTOMY INTRANASAL Comment: Byrd-Elliott sinusotomy No date: TONSILLECTOMY PRIMARY/SECONDARY Comment: Tonsillectomy No date: VAGINOSCOPY ALLERGIES Bupropion MEDICATIONS Current Outpatient Medications Medication Sig tiZANidine (ZANAFLEX) 4 mg tablet Take 1 tablet by mouth once daily. Pseudoephedrine-guaiFENesin (MUCINEX D MAXIMUM STRENGTH) 120-1,200 mg tab ER 12 hr Take 1 tablet by mouth once daily as needed (congestion). PARoxetine (PAXIL) 20 mg tablet Take 1 tablet by mouth once daily. Take with additional 40 mg tablet. benzonatate (TESSALON PERLES) 100 mg capsule Take 1 capsule by mouth three times a day as needed for cough. (Patient not taking: Reported on 10/20/2023) PARoxetine (PAXIL) 40 mg tablet Take 1 tablet by mouth once daily. hydrOXYzine HCl (ATARAX) 25 mg tablet Take 1 tablet by mouth three times a day as needed for anxiety. Cholecalciferol, Vitamin D3, (DIALYVITE VITAMIN D) 125 mcg (5,000 unit) cap Take 1 capsule by mouth once daily. celecoxib (CELEBREX) 200 mg ca (more content not included)... [facility] 10-27-2023 Telephone encounter Note Noted, thank you. Mary Mcmillan APRN.NORI [facility] 10-27-2023 Miscellaneous Notes Noted, thank you. Mary Mcmillan APRN.NORI Patient notified of results. Patient verbalizes understanding. Patient states that the steroid has helped and cough has improved greatly. Swetha Florentino RN Phoned patient left message to return call and ask to speak to a nurse for results. Can you please call the patient and let her know that I reviewed her Chest CT results. CT showed mild atelectasis/scarring in the right middle lobe and lingula. This may be a chronic issue. Can you please ask if her cough has improved? Did the steroids help? If symptoms have not improved I would recommend completing PFT testing and have a consult with pulmonology. Thank you. Mary Mcmillan APRN.CNP documented in this encounter [facility] 10-27-2023 Telephone encounter Note Patient notified of results. Patient verbalizes understanding. Patient states that the steroid has helped and cough has improved greatly. Swetha Florentino RN [facility] 10-27-2023 Telephone encounter Note Phoned patient left message to return call and ask to speak to a nurse for results. [facility] 10-27-2023 Telephone encounter Note Can you please call the patient and let her know that I reviewed her Chest CT results. CT showed mild atelectasis/scarring in the right middle lobe and lingula. This may be a chronic issue. Can you please ask if her cough has improved? Did the steroids help? If symptoms have not improved I would recommend completing PFT testing and have a consult with pulmonology. Thank you. Mary Mcmillan APRN.HEARING AID DISPENSER [facility] 10-25-2023 History of Present illness Narrative Radiology Service Progress Note DATE OF SERVICE: October 25, 2023 TIME: 4:12 PM PATIENT IDENTITY VERIFICATION COMPLETED USING TWO (2) STANDARD IDENTIFIERS: Name and Date of confirmed by patient verbally. FALL SCREENING: Has the patient had 2 falls in the last year or 1 fall with injury or currently using an Ambulatory Assistive Device (Walker, Cane, Wheelchair, Crutches, etc.)? No PATIENT GENDER DATA: Female. status: : No status: NO. PATIENT RELEVANT IMPLANT DATA REVIEWED: Yes PATIENT PRESENTS WITH AN IMPLANTABLE OR ATTACHED PACKING ROOM WORKER: No ALLERGIES: Reviewed and unchanged CONTRAST ALLERGY: NO. EXAM: CT -CONTRAST INDUCED NEPHROPATHY RISK FACTORS: Not applicable CREATININE: Creatinine Date Value Ref Range Status 10/20/2023 0.72 0.58 - 0.96 mg/dL Final 07/23/2023 1.00 (H) 0.58 - 0.96 mg/dL Final 07/30/2022 0.87 0.58 - 0.96 mg/dL Final Estimated Glomerular Filtration Rate Date Value Ref Range Status 10/20/2023 103 >=60 mL/min/1.73m Final Comment: Estimated Glomerular Filtration Rate (eGFR) is calculated using the 2020 CKD-EPI creatinine equation. This equation utilizes serum creatinine, sex, and age as parameters. The creatinine assay has traceable calibration to isotope dilution-mass spectrometry. Refer to KDIGO guidelines for clinical interpretation. In patients with unstable renal function, e.g. those with acute kidney injury, the eGFR may not accurately reflect actual GFR. eGFR- Date Value Ref Range Status 09/26/2018 >60 Final P.O.C.T. RESULTS: POC done: Yes, See Lab Tab October 25, 2023 TREATMENT: N/A PERIPHERAL IV DATA: Ambulatory: A peripheral IV was started in the Left antecubital site with a Angio cath: 22 gauge. RADIOLOGY DEPARTMENT: CT; Exam(s) Completed: Chest SIGNATURE: RT Hannah(R) PATIENT NAME: Salma Browning DATE: October 25, 2023 TIME: 4:12 PM documented in this encounter [facility] 10-21-2023 Telephone encounter Note Patient notified of results, verbalizes understanding of instructions. Rozina Santiago LPN [facility] 10-21-2023 Miscellaneous Notes Patient notified of results, verbalizes understanding of instructions. Rozina Santiago LPN Can you please call the patient and let her know that I reviewed her lab and x-ray results. Labs were normal. BNP was normal no signs of congestive heart failure. X-ray showed some small linear opacities in the mid lung, I would like to get a Chest CT scan as soon as possible to further evaluate this. If her cough or breathing become worse I would like her to go to ER. Please let me know if she has any additional questions. Thank you. Mary Mcmillan APRN.CNP documented in this encounter [facility] 10-21-2023 Telephone encounter Note Can you please call the patient and let her know that I reviewed her lab and x-ray results. Labs were normal. BNP was normal no signs of congestive heart failure. X-ray showed some small linear opacities in the mid lung, I would like to get a Chest CT scan as soon as possible to further evaluate this. If her cough or breathing become worse I would like her to go to ER. Please let me know if she has any additional questions. Thank you. Mary Mcmillan APRN.HEARING AID DISPENSER [facility] 10-20-2023 History of Present illness Narrative Radiology Service Progress Note PATIENT NAME: Salma Browning DATE OF SERVICE: October 20, 2023 TIME: 1:29 PM PATIENT IDENTITY VERIFICATION COMPLETED USING TWO (2) IDENTIFIERS: Name and Date of confirmed by patient verbally. FALL SCREENING: Has the patient had 2 falls in the last year or 1 fall with injury or currently using an Ambulatory Assistive Device (Walker, Cane, Wheelchair, Crutches, etc.)? No PATIENT GENDER DATA: Female. status: : No status: NO. PATIENT RELEVANT IMPLANT DATA REVIEWED: Not Applicable PATIENT PRESENTS WITH AN IMPLANTABLE OR ATTACHED PACKING ROOM WORKER: No RADIOLOGY DEPARTMENT: General X-ray: Exam(s) Completed: Chest X-Ray PERIPHERAL IV DATA: Not applicable SIGNED BY: RT Maria Eugenia(R) October 20, 2023 1:29 PM documented in this encounter [facility] 10-20-2023 Telephone encounter Note The following approved medication requests have been transmitted electronically. Requested Prescriptions Pending Prescriptions Disp Refills tiZANidine (ZANAFLEX) 4 mg tablet 30 tablet 5 Sig: Take 1 tablet by mouth once daily. Mary Mcmillan APRN.CNP [facility] 10-20-2023 Miscellaneous Notes The following approved medication requests have been transmitted electronically. Requested Prescriptions Pending Prescriptions Disp Refills tiZANidine (ZANAFLEX) 4 mg tablet 30 tablet 5 Sig: Take 1 tablet by mouth once daily. Mary Mcmillan APRN.CNP Insurance notified office does not cover tizanidine capsule only tablets. Please re-send alternative Iliana Carney MA documented in this encounter [facility] 10-20-2023 Instructions Mary Mcmillan APRN.CNP - 10/20/2023 1:05 PM EDT Get labs and chest xray completed Start Prednisone taper, take with food,do no take Celebrex while on steroid Continue supportive care at home Stay well hydrated May try Mucinex D as needed for sinus congestion/post nasal drip/ chest congestion May continue with vertigo exercises at home, may consider physical therapy Complete the stress and schedule with cardiology Follow up pending test results or sooner as needed. documented in this encounter [facility] 10-20-2023 History of Present illness Narrative This is a 48 year old female who presents today with: Patient presents with: Follow Up: 1 month follow up meds and zio HISTORY OF PRESENT ILLNESS: Salma Browning is a 48 year old female. Patient presents with: Follow Up: 1 month follow up meds and zio Here in the office medication check and discuss zio monitor results Still having on cough. Has been treated for sinus infection with Augmentin, given a round of azithromycin. Has tried OTC cold and cough as needed. Cough is dry but will feel like she needs to cough mucus out. Loss of voice. No wheezing. Has been very tired. Refers that blood pressure has been elevated with illness. No fever or chills. SOB with activity seems to be getting worse, Has appt for stress test. Completed Zio monitor, but refers that is came off after 3 days. Attempted to reattach without success. Has been gaining weight. Still having on going dizziness, episodes seem random. Worse with driving. Has tried at home exercise for vertigo. Unsteady at times. No LOC or palpitations. Requesting consult to bariatric medicine. Insurance will not cover weight loss medication. PAST MEDICAL HISTORY: PAST MEDICAL HISTORY Diagnosis Date Abnormal antibody titer On type and screen during #2. Repeat nl, no major antibodies, negative repeat antibody screen. ?False positive. Abnormal Pap smear of cervix Acute gastritis without mention of hemorrhage Atrophic gastritis 2010 CHOLELITHIASIS See also GALLBLADDER 08/26/2005 Congenital choledochal cyst Depression Depressive disorder, not elsewhere classified Diaphragmatic hernia without mention of obstruction or gangrene Esophagitis, unspecified Fatty tumor of liver 2005 FX LATERAL MALLEOLUS-CLOSE 09/03/2008 GERD (gastroesophageal reflux disease) 03/15/2012 On 3 meds in . ?hiatal hernia. 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 Dr Rivera Pre-eclampsia added to pre-existing hypertension 11/17/2014 Unspecified hemorrhoids without mention of complication Hemorrhoids PAST SURGICAL HISTORY Procedure Laterality Date CHOLECYSTECTOMY COLONOSCOPY FLX DX W/COLLJ SPEC WHEN PFRMD 05/09/2019 Colonoscopy EGD TRANSORAL BIOPSY SINGLE/MULTIPLE 09/22/10 ESOPHAGOGASTRODUODENOSCOPY TRANSORAL DIAGNOSTIC 05/09/2019 EGD HYSTERECTOMY HX 2017 [facility] PAST SURGICAL HISTORY OF Tumor removed from stomach, benign per pt PAST SURGICAL HISTORY OF 03/2009 left ankle fracture REM LESIO TRUNK,ARM,LEG 1.1 -2.0CM REMOVAL DEEP IMPLANT 12/06/09 Performed by KATHI POWELL at [facility] RPR DISLOC PERONEAL TENDON W/O FIBULAR OSTEOTOMY 12/06/09 Performed by KATHI POWELL at [facility] SIGMOIDOSCOPY FLX DX W/COLLJ SPEC BR/WA IF PFRMD 06/2004 Sigmoidoscopy, flexible SINUSOTOMY MAXILLARY ANTROTOMY INTRANASAL Byrd-Elliott sinusotomy TONSILLECTOMY PRIMARY/SECONDARY <AGE 12 Tonsillectomy VAGINOSCOPY ALLERGIES Bupropion MEDICATIONS Current Outpatient Medications Medication Sig azithromycin (ZITHROMAX Z-SHAHIDA) 250 mg tablet Take 2 tablets day one, then, 1 tablet daily until gone. benzonatate (TESSALON PERLES) 100 mg capsule Take 1 capsule by mouth three times a day as needed for cough. PARoxetine (PAXIL) 20 mg tablet Take 1 tablet by mouth once daily. Take with additional 40 mg tablet. PARoxetine (PAXIL) 40 mg tablet Take 1 tablet by mouth once daily. hydrOXYzine HCl (ATARAX) 25 mg tablet Take 1 tablet by mouth three times a day as needed for anxiety. Cholecalciferol, Vitamin D3, (DIALYVITE VITAMIN D) 125 mcg (5,000 unit) cap Take 1 capsule by mouth once daily. celecoxib (CELEBREX) 200 mg capsule Take 1 capsule by mouth twice daily rizatriptan (MAXALT) 10 mg tablet Take 1 tablet (10 mg) by mouth as needed for migraine headache (see administration instructions). omeprazole (PRILOSEC) 40 mg capsule Take 1 capsule by mouth two times a day. NIFEdipine XL (ADALAT CC) 30 mg 24 hr tablet Take 1 tablet by mouth once daily. tiZANidine HCl (ZANAFLEX) 4 mg capsule Take 4 mg by mouth daily at bedtime. No current facility-administered medications for this visit. FAMILY HISTORY Problem Relation Age of Onset Diabetes Mother other (colon polyps [Other]) Father no cancer found Heart Father Hypertension Father Ischemic Heart Disease Father Coronary Artery Disease Father COPD Father Thyroid Brother Social History Tobacco Use Smoking status: Never Smokeless tobacco: Never Vaping Use Vaping Use: Never used Substance Use Topics Alcohol use: Yes Comment: rarely, 1-2 weekends per month 5 drinks (prior to ) Drug use: No REVIEW OF SYSTEMS GENERAL: + Fatigue, weight gain HEENT: + Post nasal drip, loss of voice NECK: Negative for lumps, goiter, pain and significant neck swelling RESPIRATORY: + Cough CARDIOVASCULAR: Negative for chest pain, leg swelling, orthopnea, or palpitations GI: No nausea, vomiting, or diarrhea/constipation. No hematochezia/melena. No heartburn or reflux symptoms. : No history of dysuria, frequency or incontinence MUSCULOSKELETAL: Negative for joint pain or swelling. SKIN: Negative for lesions, rash, and itching ENDOCRINE: Negative for cold or heat intolerance, polyuria, polydipsia and goiter NEURO: + Dizziness MOOD: Negative for depression, anxiety, or suicidal ideation. EXAM: BP 142/92 Pulse 83 Resp 16 Wt 124.3 kg (274 lb) LMP (LMP Unknown) SpO2 97% BMI 45.93 kg/m PHYSICAL EXAM: General Appearance: Well appearing, alert, in no acute distress, well-hydrated, well nourished. Skin: Skin color, texture, turgor normal, no suspicious rashes or lesions. Head: Normocephalic, no masses, lesions, tenderness or abnormalities. Eyes: Anicteric sclera. Pupils are equally round and reactive to light. Extraocular movements are intact. Ears: External ears normal, canals clear. TM's pearly trivedi Nose/Sinuses: Positive findings: mucosa erythematous and swollen. No maxillary or frontal sinus tenderness with palpation. Oropharynx: Positive findings: mild oropharyngeal erythema, Drainage noted. Neck: Supple, no adenopathy; thyroid symmetric, normal size, no bruits. Lungs: Lungs clear to auscultation. No wheezing, rhonchi, rales. Heart: RRR without murmur, gallop, or rubs. No ectopy. Extremities: No deformities, edema, skin discoloration, clubbing or cyanosis. Good capillary refill. Peripheral Pulses: Normal, Capillary refill <2secs, strong peripheral pulses, Pulses palpable. Neurologic: Gait normal. Sensation grossly intact. Cassandra branch pike + right side. ASSESSMENT/PLAN: 1. URI, acute - ICD9: 465.9, ICD10: J06.9 (primary diagnosis) - Discussed viral etiology and rationale for treatment. - Symptomatic treatment with prn analgesia - Supportive care with fluids and rest 2. Acute cough - ICD9: 786.2, ICD10: R05.1 - XR CHEST 2V FRONTAL/LAT 3. Loss of voice - ICD9: 784.41, ICD10: R49.1 - Start prednisone taper - PREDNISONE 10 MG TABLET 4. SOB (shortness of breath) - ICD9: 786.05, ICD10: R06.02 - Schedule consult with cardiology - Complete stress test - NT PRO BNP - COMPREHENSIVE METABOLIC PANEL 5. Post-nasal drip - ICD9: 784.91, ICD10: R09.82 - May use Mucinex D as needed. - PSEUDOEPHEDRINE-GUAIFENESIN ER 120 MG-1,200 MG TAB,EXTEND RELEASE 12HR 6. BPPV (benign paroxysmal positional vertigo), unspecified laterality - ICD9: 386.11, ICD10: H81.10 - Continue at home exercises - Recommend vestibular physical therapy, patient denied wanting to do this at this time. 7. Primary osteoarthritis of both knees - ICD9: 715.16, ICD10: M17.0 - Refill provided. - TIZANIDINE 4 MG CAPSULE 8. Class 3 severe obesity with body mass index (BMI) of 40.0 to 44.9 in adult, unspecified obesity type, unspecified whether serious comorbidity present (HCC) - ICD9: 278.01, V85.41, ICD10: E66.01, Z68.41 Weight increasing - [facility] Follow-up pending test results or sooner as needed. Discussed treatment plan and patient voices understanding. Patient's questions answered appropriately. Medications and potential side effects were discussed and patient voices understanding. Mary Mcmillan APRN.NORI This note was partially generated using [employer] voice recognition system. Note was reviewed for accuracy. There may be minor misspellings or grammar miscues with [employer] voice recognition. documented in this encounter [facility] 10-20-2023 Telephone encounter Note Insurance notified office does not cover tizanidine capsule only tablets. Please re-send alternative Iliana Carney MA [facility] 10-19-2023 Telephone encounter Note Pt notified. Beena Garcia MA [facility] 10-19-2023 Miscellaneous Notes Pt notified. Beena Garcia MA TC to pt. LM to call office, ask for triage nurse to get results. Rozina Santiago LPN Robitussin Cough Syrups work very well for cough. Mary Mcmillan APRN.NORI Pt notified. She is asking for something else to be called in for her cough. States that the Tessalon perles are not helping, she is still up all night coughing. faxed consult and test results to [facility]. Pt will call Wednesday to schedule. Beena Garcia MA Can you please call the patient back and let her know that I sent in a prescription for azithromycin, if her cough does not improve in the next 10 days I would like her to reach out to the office. I can order a chest x-ray. Consult and test results will be faxed over to [facility] Wednesday morning. She should be able to call them later Wednesday to schedule appointment. The following approved medication requests have been transmitted electronically. Requested Prescriptions Signed Prescriptions Disp Refills azithromycin (ZITHROMAX Z-SHAHIDA) 250 mg tablet 6 tablet 0 Sig: Take 2 tablets day one, then, 1 tablet daily until gone. Authorizing Provider: MARY MCMILLAN APRN.NORI Spoke with pt and information listed below given. Pt verbalizes understanding. 1)Pt willing to go to [facility] and hoping you can get her in sooner. 2)Pt wanted you to know she is still sick with cough. She has been on ATB and nothing is helping. She was seen in office on 09-15-23 then in [facility] Please advise. Pharmacy updated. [place]ia Peacock LPN TC to pt. LM to call office, ask for triage nurse to get results. Rozina Santiago LPN The monitor results looked normal when looking at the report. I know she will be seeing cardiology but not until March. I may be able to get her in sooner at [facility]. If she she would like to go to [facility] please let me know. Mary Mcmillan APRN.NORI Phoned patient went over results, notes from Mary Mcmillan PATIENT CARE with understanding. Patient said she is still having dizziness everyday from one minute to 30 minutes, feels woozy. Patient said the ZIO monitor fell off after being on 2 days, she called them and was instructed to reapply. She said it never stuck right after that, she said something about a red blinking light was always on. So she does not think she got good reading on the monitor. Can you please call the patient and let her know that I reviewed her Zio monitor results. Monitor shows 3 episodes where her heart rate was elevated, no other abnormalities noted. Can you please ask how she has been feeling? Any ongoing dizziness or low heart rate? I would recommend she keep appointment with cardiology. Thank you. Mary Mcmillan APRN.CNP documented in this encounter [facility] 10-18-2023 Telephone encounter Note TC to pt. LM to call office, ask for triage nurse to get results. Rozina Santiago LPN [facility] 10-18-2023 Telephone encounter Note The following approved medication requests have been transmitted electronically. Requested Prescriptions Pending Prescriptions Disp Refills PARoxetine (PAXIL) 20 mg tablet 30 tablet 2 Sig: Take 1 tablet by mouth once daily. Take with additional 40 mg tablet. aMry Mcmillan APRN.CNP [facility] 10-18-2023 Miscellaneous Notes The following approved medication requests have been transmitted electronically. Requested Prescriptions Pending Prescriptions Disp Refills PARoxetine (PAXIL) 20 mg tablet 30 tablet 2 Sig: Take 1 tablet by mouth once daily. Take with additional 40 mg tablet. Mary Mcmillan APRN.CNP Prescription Refill Information The patient has been identified by name and date of : Yes Caregiver verified no other encounters exist for this prescription request: Yes Caregiver confirmed with patient/requestor that no other refills are due, in the near future, with this provider at this time: Yes The last office visit in the department: 09/15/2023 Does the patient have a future office visit with this provider/department: Yes Requested Prescriptions Pending Prescriptions Disp Refills PARoxetine (PAXIL) 20 mg tablet 30 tablet 0 Sig: Take 1 tablet by mouth once daily. Take with additional 40 mg tablet. Salma Moody LPN October 18, 2023 8:15 AM documented in this encounter [facility] 10-18-2023 Telephone encounter Note Prescription Refill Information The patient has been identified by name and date of : Yes Caregiver verified no other encounters exist for this prescription request: Yes Caregiver confirmed with patient/requestor that no other refills are due, in the near future, with this provider at this time: Yes The last office visit in the department: 09/15/2023 Does the patient have a future office visit with this provider/department: Yes Requested Prescriptions Pending Prescriptions Disp Refills PARoxetine (PAXIL) 20 mg tablet 30 tablet 0 Sig: Take 1 tablet by mouth once daily. Take with additional 40 mg tablet. Salma Moody LPN October 18, 2023 8:15 AM [facility] 10-18-2023 Telephone encounter Note Robitussin Cough Syrups work very well for cough. Mary Mcmillan APRN.HEARING AID DISPENSER [facility] 10-15-2023 Telephone encounter Note Pt notified. She is asking for something else to be called in for her cough. States that the Tessalon perles are not helping, she is still up all night coughing. faxed consult and test results to [facility]. Pt will call Wednesday to . Beena Garcia MA [facility] 10-15-2023 Telephone encounter Note Can you please call the patient back and let her know that I sent in a prescription for azithromycin, if her cough does not improve in the next 10 days I would like her to reach out to the office. I can order a chest x-ray. Consult and test results will be faxed over to [facility] Wednesday morning. She should be able to call them later Wednesday to schedule appointment. The following approved medication requests have been transmitted electronically. Requested Prescriptions Signed Prescriptions Disp Refills azithromycin (ZITHROMAX Z-SHAHIDA) 250 mg tablet 6 tablet 0 Sig: Take 2 tablets day one, then, 1 tablet daily until gone. Authorizing Provider: MARY MCMILLAN APRN.[facility] 10-15-2023 Telephone encounter Note Spoke with pt and information listed below given. Pt verbalizes understanding. 1)Pt willing to go to [facility] and hoping you can get her in sooner. 2)Pt wanted you to know she is still sick with cough. She has been on ATB and nothing is helping. She was seen in office on 09-15-23 then in [facility] Please advise. Pharmacy updated. Albania Peacock LPN [facility] 10-15-2023 Telephone encounter Note TC to pt. LM to call office, ask for triage nurse to get results. Rozina Santiago LPN [facility] 10-15-2023 Telephone encounter Note The monitor results looked normal when looking at the report. I know she will be seeing cardiology but not until March. I may be able to get her in sooner at [facility] at [facility]. If she she would like to go to [facility] please let me know. Mary Mcmillan APRN.[facility] 10-14-2023 Telephone encounter Note Phoned patient went over results, notes from Mary Mcmillan [facility] with understanding. Patient said she is still having dizziness everyday from one minute to 30 minutes, feels woozy. Patient said the ZIO monitor fell off after being on 2 days, she called them and was instructed to reapply. She said it never stuck right after that, she said something about a red blinking light was always on. So she does not think she got good reading on the monitor. [facility] 10-14-2023 Telephone encounter Note Can you please call the patient and let her know that I reviewed her Zio monitor results. Monitor shows 3 episodes where her heart rate was elevated, no other abnormalities noted. Can you please ask how she has been feeling? Any ongoing dizziness or low heart rate? I would recommend she keep appointment with cardiology. Thank you. Mary Mcmillan APRN.HEARING AID DISPENSER [facility] 09-28-2023 History of Present illness Narrative This note was created using [employer]. Subjective Salma Browning is a 48 year old female. HPI 48-year-old female presents for sore throat, cough, nasal congestion, headache x 10 days. Patient states that she started getting sick about a week and a half ago with congestion, cough. She has a little bit of sore throat and has a hoarse voice. She has had a headache. She is still able to eat and drink. No vomiting or diarrhea. No fevers. No chest pain or shortness of breath. Her children are both sick with strep throat. PAST MEDICAL HISTORY Diagnosis Date Abnormal antibody titer On type and screen during #2. Repeat nl, no major antibodies, negative repeat antibody screen. ?False positive. Abnormal Pap smear of cervix Acute gastritis without mention of hemorrhage Atrophic gastritis 2010 CHOLELITHIASIS See also GALLBLADDER 08/26/2005 Congenital choledochal cyst Depression Depressive disorder, not elsewhere classified Diaphragmatic hernia without mention of obstruction or gangrene Esophagitis, unspecified Fatty tumor of liver 2005 FX LATERAL MALLEOLUS-CLOSE 09/03/2008 GERD (gastroesophageal reflux disease) 03/15/2012 On 3 meds in . ?hiatal hernia. 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 Dr Rivera Pre-eclampsia added to pre-existing hypertension 11/17/2014 Unspecified hemorrhoids without mention of complication Hemorrhoids PAST SURGICAL HISTORY Procedure Laterality Date CHOLECYSTECTOMY COLONOSCOPY FLX DX W/COLLJ SPEC WHEN PFRMD 05/09/2019 Colonoscopy EGD TRANSORAL BIOPSY SINGLE/MULTIPLE 09/22/10 ESOPHAGOGASTRODUODENOSCOPY TRANSORAL DIAGNOSTIC 05/09/2019 EGD HYSTERECTOMY HX 2017 [facility] PAST SURGICAL HISTORY OF Tumor removed from stomach, benign per pt PAST SURGICAL HISTORY OF 03/2009 left ankle fracture REM LESIO TRUNK,ARM,LEG 1.1 -2.0CM REMOVAL DEEP IMPLANT 12/06/09 Performed by KATHI POWELL at [facility] RPR DISLOC PERONEAL TENDON W/O FIBULAR OSTEOTOMY 12/06/09 Performed by KATHI POWELL at [facility] SIGMOIDOSCOPY FLX DX W/COLLJ SPEC BR/WA IF PFRMD 06/2004 Sigmoidoscopy, flexible SINUSOTOMY MAXILLARY ANTROTOMY INTRANASAL Byrd-Elliott sinusotomy TONSILLECTOMY PRIMARY/SECONDARY <AGE 12 Tonsillectomy VAGINOSCOPY ALLERGIES Bupropion MEDICATIONS meclizine (ANTIVERT) 25 mg tab Take 1 tablet by mouth every 6 hours as needed (dizziness). PARoxetine (PAXIL) 20 mg tablet Take 1 tablet by mouth once daily. Take with additional 40 mg tablet. PARoxetine (PAXIL) 40 mg tablet Take 1 tablet by mouth once daily. hydrOXYzine HCl (ATARAX) 25 mg tablet Take 1 tablet by mouth three times a day as needed for anxiety. Cholecalciferol, Vitamin D3, (DIALYVITE VITAMIN D) 125 mcg (5,000 unit) cap Take 1 capsule by mouth once daily. celecoxib (CELEBREX) 200 mg capsule Take 1 capsule by mouth twice daily rizatriptan (MAXALT) 10 mg tablet Take 1 tablet (10 mg) by mouth as needed for migraine headache (see administration instructions). omeprazole (PRILOSEC) 40 mg capsule Take 1 capsule by mouth two times a day. NIFEdipine XL (ADALAT CC) 30 mg 24 hr tablet Take 1 tablet by mouth once daily. tiZANidine HCl (ZANAFLEX) 4 mg capsule Take 4 mg by mouth daily at bedtime. FAMILY HISTORY Problem Relation Age of Onset Diabetes Mother other (colon polyps [Other]) Father no cancer found Heart Father Hypertension Father Ischemic Heart Disease Father Coronary Artery Disease Father COPD Father Thyroid Brother Social History Tobacco Use Smoking status: Never Smokeless tobacco: Never Vaping Use Vaping Use: Never used Substance Use Topics Alcohol use: Yes Comment: rarely, 1-2 weekends per month 5 drinks (prior to ) Drug use: No Review of Systems Constitutional: Negative for chills and fever. HENT: Positive for congestion, sinus pressure, sinus pain and sore throat. Negative for ear pain. Respiratory: Positive for cough. Negative for shortness of breath. Cardiovascular: Negative for chest pain. Gastrointestinal: Negative for diarrhea and vomiting. Neurological: Positive for headaches. Objective BP 138/82 Pulse 81 Temp 36.3 C (97.4 F) (Tympanic) Resp 16 Wt 121.9 kg (268 lb 11.9 oz) LMP (LMP Unknown) SpO2 97% BMI 45.05 kg/m Physical Exam Vitals and nursing note reviewed. Constitutional: General: She is not in acute distress. Appearance: Normal appearance. She is not toxic-appearing. HENT: Right Ear: Tympanic membrane and ear canal normal. Left Ear: Tympanic membrane and ear canal normal. Nose: Congestion present. Right Sinus: Maxillary sinus tenderness present. Left Sinus: Maxillary sinus tenderness present. Mouth/Throat: Mouth: Mucous membranes are moist. Pharynx: Uvula midline. Posterior oropharyngeal erythema present. No oropharyngeal exudate. Comments: + Tonsillectomy Eyes: Conjunctiva/sclera: Conjunctivae normal. Cardiovascular: Rate and Rhythm: Normal rate and regular rhythm. Pulmonary: Effort: Pulmonary effort is normal. Breath sounds: Normal breath sounds. No wheezing, rhonchi or rales. Neurological: Mental Status: She is alert. Assessment and Plan ASSESSMENT/PLAN: 1. Bacterial sinusitis - ICD9: 473.9, 041.9, ICD10: J32.9, B96.89 (primary diagnosis) - Will begin treatment with Augmentin 875 mg PO BID for 7 days - Supportive care with plenty of fluids, rest, and analgesia prn. 2. Sore throat - ICD9: 462, ICD10: J02.9 - suspect viral - Group A strep molecular testing negative - Discussed supportive care treatment with fluids, rest and analgesia. - STREP A MOLECULAR (POC) Diagnosis and treatment plan were discussed and questions were answered to the patient's satisfaction. Pt acknowledged understanding of concepts and follow up plan. Specific signs and symptoms that would indicate the need for higher level of care were discussed in detail warranting prompt ER evaluation. ADRIANE Mercado documented in this encounter [facility] 09-15-2023 Instructions Mary Mcmillan APRN.[facility] - 09/15/2023 2:53 PM EDT Images from the original note were not included. Strep Negative Continue supportive care at home, may use OTC cold and cough medications as needed, stay well hydrated May use Meclizine as needed for dizziness, be mindful with position changes. Perform at home exercises. Zio monitor applied Continue to take all medication as prescribed Follow up in 1 month or sooner pending test results. Food tracking: myfitnesspal or 1stphorm, try to get some form of exercise. Benign Paroxysmal Positional Vertigo (BPPV) What is BPPV? Benign Paroxysmal Positional Vertigo (BPPV) is an inner ear disorder in which changes to the position of the head, such as tipping the head backward, lead to sudden vertigo -- a feeling that the room is spinning. Vertigo can vary in intensity from mild to severe and usually lasts only a few minutes. It may be accompanied by other symptoms, including dizziness lightheadedness a sense of imbalance nausea vomiting Anatomy of the right inner ear. Particle repositioning therapy moves the otoconia out of the semicircular canals and into the utricle where they dissolve naturally. BPPV is not a sign of a serious problem, and it usually disappears on its own within 6 weeks of the first episode. However, the symptoms of BPPV can be very frightening and may be dangerous, especially in older individuals. The unsteadiness associated with BPPV can lead to falls. About half of all people over age 65 experience an episode of BPPV, and falls are a leading cause of fractures in this age-range. What causes BPPV? BPPV develops when calcium carbonate crystals, which are known as otoconia, shift into and become trapped within the semicircular canals (one of the vestibular organs of the inner ear that controls balance). The otoconia make up a normal part of the structure of the utricle, a vestibular organ next to the semicircular canals. (see illustration to the right.) In the utricle, the otoconia may be loosened as a result of injury, infection, or age, and they land in a sac -- the utricle -- where they are naturally dissolved. However, otoconia in the semicircular canals will not dissolve. As a person s head position changes, the otoconia begin to roll around and push on the tiny hairs that line the semicircular canals. Those hairs act as sensors to give the brain information about balance. Vertigo develops when the hairs are stimulated by the rolling otoconia. What head positions trigger BPPV? Movements that can trigger an episode of BPPV include rolling over or sitting up in bed, bending the head forward to look down, or tipping the head backward. In most people, only a single ear is affected by BPPV, although both ears may be involved on occasion. How is BPPV diagnosed and treated? With advances in medical technology, BPPV can easily be diagnosed and treated. The diagnosis can usually be made in the office based on medical history and a physical exam. Treatment also involves a short, simple in-office procedure known as the particle repositioning maneuver. (See addendum below.) How can I identify the affected side? Steps to determine affected side: Sit on bed so that if you lie down, your head hangs slightly over the end of the bed. Turn head to the right and lie back quickly. Wait 1 minute. If you feel dizzy, then the right ear is your affected ear. If no dizziness occurs, sit up. Wait 1 minute. Turn head to the left and lie back quickly. Wait 1 minute. If you feel dizzy, then the left ear is your affected ear. Right position Left position How successful is the treatment? A single particle repositioning procedure is effective in treating about 80% to 90% of cases of BPPV. Additional exercise or repositioning maneuvers may be needed if symptoms persist. Can BPPV recur? If so, what can I do? A new episode of BPPV can develop after successful treatment -- on average there is a 15 percent rate of recurrence each year. However, it may be possible to treat recurrent BPPV at home by performing a series of movements at the time an episode occurs. Patients will receive information on ways to handle recurrences on their own or they can work with a physical therapist to develop a plan. In general, if you wake up with positional vertigo, slowly move into the [id number] position and wait for a minute. Next, slowly move into a face-down position and slide to the foot of the bed. Keep your head down until you reach the end of the bed and are kneeling or standing on the floor. Slowly bring your head backward into an upright position. Hold on to the bed at all times. Another method is to sit toward the foot of the bed, leaving enough room to lay back with your head resting comfortably at the end of the bed, slightly extended. Be careful not to overextend your neck, as this may aggravate existing neck problems. If your symptoms are severe, you may need assistance to complete the maneuver. Follow the same steps as described in the boxed instructions on the next page. Without treatment, the symptoms of BPPV may worsen. However, with time, the otoconia dissolve on their own, which is usually within 6 weeks. Until the time the otoconia dissolve on their own, the number and severity of episodes may be reduced simply by paying careful attention to head position. In addition, anti-motion sickness drugs can be given to control nausea. However, before drugs are taken, it is usually best to try the particle repositioning procedure first. It is a very safe and rapid way to relieve symptoms and reduce the chance for falls. Medications should not be taken for a long period of time. ADDENDUM Particle repositioning procedure: [id number] instructions The particle repositioning procedure takes about 15 minutes to complete and involves a series of physical movements that change the position of the head and body. These actions shift the otoconia out of the semicircular canals and back into their proper location in the utricle. The particle repositioning procedure begins with the patient is sitting up and then lying down on a treatment table. The procedure is very easy to perform. Patients should wear comfortable clothing that will allow them to move freely. Hold each of the following positions for 1 to 2 minutes. Step 1: Turn your head toward your affected ear. Step 2: Lay back quickly. Hold. Step 3: Keep your head back against the bed and turn it toward the good ear. Hold. Step 4: Roll onto your side with your good ear down. Your nose should be turned toward the floor. Hold. Step 5: Sit up, keeping your chin tucked in toward your shoulder. Hold. When you end, you should be sitting over the side of your bed so your feet touch the floor. Step 6: Follow your post-particle repositioning instructions. BPPV: Glossary of Terms Semicircular canals: These structures act like a gyroscope, with canals positioned in three dimensions -- upward, downward, and horizontal. Together, the canals send signals to the brain about the rotation/positioning of the head (for example, when you bend over or spin around.) Cupula: Detects the flow of fluid within the semicircular canals. The flow of fluid gives the body a sense of motion. Utricle: An organ located in the inner ear that helps control balance. The utricle contains hair cells, which are covered with otoconia. The otoconia sway with gravity, sending signals to the brain about the position of the head and body (upright, tilted, etc). Otoconia: The tiny calcium crystal particles that become dislodged from within the utricle (where they can dissolve) and move into the semicircular canals (where they can t dissolve). Cochlea: The 'snail-shell' sense organ of the inner ear that translates sound into nerve impulses and sent to the brain. References Lilliana BT, Calos LB. Jordy OLSEN. Peripheral Vestibular Disorders. In: [facility] [facility], 3-Volume Set. [place]; 2014. Zoila Hall. Benign Paroxysmal Positional Vertigo (BPPV): History, Pathophysiology, Office Treatment and Future Directions. International Journal of Otolaryngology. 2011;2011:308335. Ivone JS, Nicolasa ROGERS. Clinical practice. Benign paroxysmal positional vertigo. N Engl J Med. 2013Jun 22;370(12):1138-47. Bebo Madsen DD, Antoni Kee. The Head and Neck. In: Bebo Madsen DD, Antoni Kee. eds. [place]in s Diagnostic Examination, 10e. [place], [place]: [facility] ([place]; 2015. Copyright 3791-9540 The [facility]. All rights reserved This information is provided by the [facility] and is not intended to replace the medical advice of your doctor or health care provider. Please consult your health care provider for advice about a specific medical condition. For additional health information, please contact the Center for Consumer Health Information at the [facility] or toll-free extension [phone]. If you prefer, you may visit [email or web address] or [email or web address]. This document was last reviewed on: 2014 documented in this encounter [facility] 09-15-2023 History of Present illness Narrative This is a 48 year old female who presents today with: Patient presents with: Follow Up: 4 week follow up HISTORY OF PRESENT ILLNESS: Salma Browning is a 48 year old female. Patient presents with: Follow Up: 4 week follow up Here in the office for 1 month follow up. At last office visit was having ongoing dizziness and anxiety. Stopped Zoloft and started on Paxil 40 mg daily. Patient messaged into the office requesting higher dose. Increase to 60 mg daily. Using hydroxyzine 25 mg as needed. Has not noitced much improvement. Refers that she has a lot going on with family and increased stress. Denies SI/HI Echo was normal. Checked and Zio monitor is covered by insurance, will be applied today. Due to bradycardia trialed off of atenolol, heart rate is now in the 80's. Still having on going dizziness, episodes are random. Symptoms usually resolve quickly. Refers that she will feel buzzed and off balance. Has noticed symptoms while driving and when looking up. Increased lower leg swelling. Watching diet. Has noticed some increase in weight. Trying to increase protein in the diet and water intake. Echo: CONCLUSIONS: - Technically difficult exam due to body habitus. - Exam indication: Shortness of Breath - The left ventricle is normal in size. There is mild concentric left ventricular hypertrophy. Left ventricular systolic function is normal. EF = 57 5% (2D biplane) Grade I left ventricular diastolic dysfunction. - The right ventricle is normal in size. Right ventricular systolic function is normal. - There are no significant valvular abnormalities. - Exam was compared with the prior echocardiographic exam performed on 10/11/2014, no significant change. Sore throat, cough, and headache. Started a couple of days ago. Refers that her smaller children have strep. No fever or chills. PAST MEDICAL HISTORY: PAST MEDICAL HISTORY Diagnosis Date Abnormal antibody titer On type and screen during #2. Repeat nl, no major antibodies, negative repeat antibody screen. ?False positive. Abnormal Pap smear of cervix Acute gastritis without mention of hemorrhage Atrophic gastritis 2010 CHOLELITHIASIS See also GALLBLADDER 08/26/2005 Congenital choledochal cyst Depression Depressive disorder, not elsewhere classified Diaphragmatic hernia without mention of obstruction or gangrene Esophagitis, unspecified Fatty tumor of liver 2005 FX LATERAL MALLEOLUS-CLOSE 09/03/2008 GERD (gastroesophageal reflux disease) 03/15/2012 On 3 meds in . ?hiatal hernia. 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 Dr Rivera Pre-eclampsia added to pre-existing hypertension 11/17/2014 Unspecified hemorrhoids without mention of complication Hemorrhoids PAST SURGICAL HISTORY Procedure Laterality Date CHOLECYSTECTOMY COLONOSCOPY FLX DX W/COLLJ SPEC WHEN PFRMD 05/09/2019 Colonoscopy EGD TRANSORAL BIOPSY SINGLE/MULTIPLE 09/22/10 ESOPHAGOGASTRODUODENOSCOPY TRANSORAL DIAGNOSTIC 05/09/2019 EGD HYSTERECTOMY HX 2017 [facility] PAST SURGICAL HISTORY OF Tumor removed from stomach, benign per pt PAST SURGICAL HISTORY OF 03/2009 left ankle fracture REM LESIO TRUNK,ARM,LEG 1.1 -2.0CM REMOVAL DEEP IMPLANT 12/06/09 Performed by KATHI POWELL at [facility] RPR DISLOC PERONEAL TENDON W/O FIBULAR OSTEOTOMY 12/06/09 Performed by KATHI POWELL at [facility] SIGMOIDOSCOPY FLX DX W/COLLJ SPEC BR/WA IF PFRMD 06/2004 Sigmoidoscopy, flexible SINUSOTOMY MAXILLARY ANTROTOMY INTRANASAL Byrd-Elliott sinusotomy TONSILLECTOMY PRIMARY/SECONDARY <AGE 12 Tonsillectomy VAGINOSCOPY ALLERGIES Bupropion MEDICATIONS Current Outpatient Medications Medication Sig PARoxetine (PAXIL) 20 mg tablet Take 1 tablet by mouth once daily. Take with additional 40 mg tablet. PARoxetine (PAXIL) 40 mg tablet Take 1 tablet by mouth once daily. hydrOXYzine HCl (ATARAX) 25 mg tablet Take 1 tablet by mouth three times a day as needed for anxiety. Cholecalciferol, Vitamin D3, (DIALYVITE VITAMIN D) 125 mcg (5,000 unit) cap Take 1 capsule by mouth once daily. celecoxib (CELEBREX) 200 mg capsule Take 1 capsule by mouth twice daily tirzepatide, weight loss (ZEPBOUND) 2.5 mg/0.5 mL pen injector Inject 2.5 mg subcutaneously one time a week. rizatriptan (MAXALT) 10 mg tablet Take 1 tablet (10 mg) by mouth as needed for migraine headache (see administration instructions). omeprazole (PRILOSEC) 40 mg capsule Take 1 capsule by mouth two times a day. NIFEdipine XL (ADALAT CC) 30 mg 24 hr tablet Take 1 tablet by mouth once daily. (Patient not taking: Reported on 08/11/2023) atenolol (TENORMIN) 50 mg tablet Take 1 tablet by mouth once daily. tiZANidine HCl (ZANAFLEX) 4 mg capsule Take 4 mg by mouth daily at bedtime. No current facility-administered medications for this visit. FAMILY HISTORY Problem Relation Age of Onset Diabetes Mother other (colon polyps [Other]) Father no cancer found Heart Father Hypertension Father Ischemic Heart Disease Father Coronary Artery Disease Father COPD Father Thyroid Brother Social History Tobacco Use Smoking status: Never Smokeless tobacco: Never Vaping Use Vaping Use: Never used Substance Use Topics Alcohol use: Yes Comment: rarely, 1-2 weekends per month 5 drinks (prior to ) Drug use: No REVIEW OF SYSTEMS GENERAL: No weight loss, malaise or fevers/chills HEENT: + Sore Throat NECK: Negative for lumps, goiter, pain and significant neck swelling RESPIRATORY: Negative for cough, hemoptysis, wheezing, dyspnea or shortness of breath CARDIOVASCULAR: Negative for chest pain, leg swelling, orthopnea, or palpitations GI: No nausea, vomiting, or diarrhea/constipation. No hematochezia/melena. No heartburn or reflux symptoms. : No history of dysuria, frequency or incontinence MUSCULOSKELETAL: Negative for joint pain or swelling. SKIN: Negative for lesions, rash, and itching ENDOCRINE: Negative for cold or heat intolerance, polyuria, polydipsia and goiter NEURO: + Dizziness MOOD: + Anxiety EXAM: BP 118/90 Pulse 82 Temp 36.8 C (98.2 F) Resp 16 Wt 121.6 kg (268 lb) LMP (LMP Unknown) SpO2 97% BMI 44.93 kg/m PHYSICAL EXAM: General Appearance: Well appearing, alert, in no acute distress, well-hydrated, well nourished. Skin: Skin color, texture, turgor normal, no suspicious rashes or lesions. Head: Normocephalic, no masses, lesions, tenderness or abnormalities. Eyes: Anicteric sclera. Pupils are equally round and reactive to light. Extraocular movements are intact. Ears: External ears normal, canals clear. TM's pearly trivedi, Nose/Sinuses: Nares normal, septum midline, mucosa normal, no drainage or sinus tenderness. Oropharynx: Positive findings: mild oropharyngeal erythema. Neck: Supple, no adenopathy; thyroid symmetric, normal size, no bruits. Lungs: Lungs clear to auscultation. No wheezing, rhonchi, rales. Heart: RRR without murmur, gallop, or rubs. No ectopy. Extremities: No deformities, edema, skin discoloration, clubbing or cyanosis. Good capillary refill. Peripheral Pulses: Normal, Capillary refill <2secs, strong peripheral pulses, Pulses palpable. Neurologic: Gait normal. Sensation grossly intact. + Quick movements of the head while seated initiated dizziness ASSESSMENT/PLAN: 1. BPPV (benign paroxysmal positional vertigo), unspecified laterality - ICD9: 386.11, ICD10: H81.10 (primary diagnosis) - Since bradycardia has resolved with stopping atenolol after further evaluation symptoms seem consistent with BPPV. - Recommend using meclizine as needed and performing at home exercises. - Discussed vestibular physical therapy in the future if needed. - MECLIZINE 25 MG TABLET 2. Dizziness - ICD9: 780.4, ICD10: R42 - Patient would like to finish cardiac work up. - Zio monitor placed in office. - Instructions provided., - OUTSIDE VENDOR CARDIAC OUTPATIENT EXTENDED RHYTHM RECORDING (WITHOUT TELEMETRY) 3. Bradycardia - ICD9: 427.89, ICD10: R00.1 - Same plan as #2. 4. Sore throat - ICD9: 462, ICD10: J02.9 - Group A strep molecular testing negative - Discussed supportive care treatment with fluids, rest and analgesia. - STREP A MOLECULAR (POC) 5. Weight gain - ICD9: 783.1, ICD10: R63.5 - Recommend tracking food at home - Increase lean protein, veggies, and get some form of exercise. 6. Anxiety associated with depression - ICD9: 300.4, ICD10: F41.8 - Continue to take current medication. - Follow up in 1 month. Follow-up in 1 month or sooner pending test results. Discussed treatment plan and patient voices understanding. Patient's questions answered appropriately. Medications and potential side effects were discussed and patient voices understanding. Mary Mcmillan APRN.NORI This note was partially generated using [employer] voice recognition system. Note was reviewed for accuracy. There may be minor misspellings or grammar miscues with [employer] voice recognition. documented in this encounter [facility] 09-15-2023 Telephone encounter Note Patient returned call and went over notes below from Mary Mcmillan PATIENT CARE with understanding. Patient said she would call the number to inquire. [facility] 09-15-2023 Miscellaneous Notes Patient returned call and went over notes below from Mary Mcmillan PATIENT CARE with understanding. Patient said she would call the number to inquire. TC to pt. LM to call office, ask for triage nurse to get update. Rozina Santiago LPN Can you you please call the patient and let her know that I normally do not place the order for the ZIO monitor prior to having the patient come into the office. Due to the fact they will send the monitor in the mail to her house. I would recommend calling the Zio monitor directly they can tell her over the phone if her insurance will cover the testing. Phone number is Thank you. Mary Mcmillan APRN.NORI Patient calling and asking if order can be placed for zio monitor. Patient wondering if order is placed then it can be ran through insurance to see if this is covered by insurance? Insurance had told patient that they would need a billing number to see if it is covered or to have provider put in order to see if it is covered. Please review and advise, Swetha Florentino RN documented in this encounter [facility] 09-15-2023 Telephone encounter Note TC to pt. LM to call office, ask for triage nurse to get update. Rozina Santiago LPN [facility] 09-15-2023 Telephone encounter Note Can you you please call the patient and let her know that I normally do not place the order for the ZIO monitor prior to having the patient come into the office. Due to the fact they will send the monitor in the mail to her house. I would recommend calling the Zio monitor directly they can tell her over the phone if her insurance will cover the testing. Phone number is Thank you. Mary Mcmillan APRN.CNP [facility] 09-14-2023 Telephone encounter Note Patient calling and asking if order can be placed for zio monitor. Patient wondering if order is placed then it can be ran through insurance to see if this is covered by insurance? Insurance had told patient that they would need a billing number to see if it is covered or to have provider put in order to see if it is covered. Please review and advise, Swetha Florentino RN [facility] 09-03-2023 Telephone encounter Note The following approved medication requests have been transmitted electronically. Requested Prescriptions Signed Prescriptions Disp Refills PARoxetine (PAXIL) 20 mg tablet 30 tablet 0 Sig: Take 1 tablet by mouth once daily. Take with additional 40 mg tablet. Mary Mcmillan APRN.CNP [facility] 09-03-2023 Miscellaneous Notes The following approved medication requests have been transmitted electronically. Requested Prescriptions Signed Prescriptions Disp Refills PARoxetine (PAXIL) 20 mg tablet 30 tablet 0 Sig: Take 1 tablet by mouth once daily. Take with additional 40 mg tablet. Mary Mcmillan APRN.CNP Patient seen 08/11/23 4 wk follow up scheduled 09/13/23 documented in this encounter [facility] 09-02-2023 Telephone encounter Note Patient seen 08/11/23 4 wk follow up scheduled 09/13/23 [facility] 08-11-2023 Instructions Mary Mcmillan APRN.CNP - 08/11/2023 9:56 AM EDT Stop Zoloft Start Paxil 40 mg daily May use the hydroxyzine 25 mg three times daily as needed for increased anxiety and difficulty sleeping. Stop atenolol for the next 3 days and monitor heart rate and dizziness Check with insurance about zio monitor coverage Schedule appt with cardiology Complete stress test Red flag symptoms go to ER Follow up in 1 month or sooner as needed. documented in this encounter [facility] 08-11-2023 History of Present illness Narrative This is a 48 year old female who presents today with: Patient presents with: Follow Up: Medication follow up, seen 07/22 and Atenolol was decreased with no improvement, still having dizziness, swelling in bilateral lower extremities HISTORY OF PRESENT ILLNESS: Salma Browning is a 48 year old female. Patient presents with: Follow Up: Medication follow up, seen 07/22 and Atenolol was decreased with no improvement, still having dizziness, swelling in bilateral lower extremities Here in the office to discuss on going dizziness and anxiety. At last office visit atenolol 50 mg was decreased to 25 mg due to ongoing dizziness. Refers that she noticed no difference with decreasing the medication. ECG at las visit showed bradycardia, rate 55. Still getting random episodes during the day. Having about 2-3 times per day, lasting seconds to 3 minutes. No LOC. Will cause increased anxiety. Refers she has anxiety daily. Over thinking. Difficulty falling and staying asleep. Currently taking Zoloft 100 mg twice daily. No SI/HI. CONCLUSIONS: - Technically difficult exam due to body habitus. - Exam indication: Shortness of Breath - The left ventricle is normal in size. There is mild concentric left ventricular hypertrophy. Left ventricular systolic function is normal. EF = 57 5% (2D biplane) Grade I left ventricular diastolic dysfunction. - The right ventricle is normal in size. Right ventricular systolic function is normal. - There are no significant valvular abnormalities. - Exam was compared with the prior echocardiographic exam performed on 10/11/2014, no significant change. PAST MEDICAL HISTORY: PAST MEDICAL HISTORY Diagnosis Date Abnormal antibody titer On type and screen during #2. Repeat nl, no major antibodies, negative repeat antibody screen. ?False positive. Abnormal Pap smear of cervix Acute gastritis without mention of hemorrhage Atrophic gastritis 2010 CHOLELITHIASIS See also GALLBLADDER 08/26/2005 Congenital choledochal cyst Depression Depressive disorder, not elsewhere classified Diaphragmatic hernia without mention of obstruction or gangrene Esophagitis, unspecified Fatty tumor of liver 2005 FX LATERAL MALLEOLUS-CLOSE 09/03/2008 GERD (gastroesophageal reflux disease) 03/15/2012 On 3 meds in . ?hiatal hernia. 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 Dr Rivera Pre-eclampsia added to pre-existing hypertension 11/17/2014 Unspecified hemorrhoids without mention of complication Hemorrhoids PAST SURGICAL HISTORY Procedure Laterality Date CHOLECYSTECTOMY COLONOSCOPY FLX DX W/COLLJ SPEC WHEN PFRMD 05/09/2019 Colonoscopy EGD TRANSORAL BIOPSY SINGLE/MULTIPLE 09/22/10 ESOPHAGOGASTRODUODENOSCOPY TRANSORAL DIAGNOSTIC 05/09/2019 EGD HYSTERECTOMY HX 2017 [facility] PAST SURGICAL HISTORY OF Tumor removed from stomach, benign per pt PAST SURGICAL HISTORY OF 03/2009 left ankle fracture REM LESIO TRUNK,ARM,LEG 1.1 -2.0CM REMOVAL DEEP IMPLANT 12/06/09 Performed by KATHI POWELL at [facility] RPR DISLOC PERONEAL TENDON W/O FIBULAR OSTEOTOMY 12/06/09 Performed by KATHI POWELL at [facility] SIGMOIDOSCOPY FLX DX W/COLLJ SPEC BR/WA IF PFRMD 06/2004 Sigmoidoscopy, flexible SINUSOTOMY MAXILLARY ANTROTOMY INTRANASAL Byrd-Elliott sinusotomy TONSILLECTOMY PRIMARY/SECONDARY <AGE 12 Tonsillectomy VAGINOSCOPY ALLERGIES Bupropion MEDICATIONS Current Outpatient Medications Medication Sig Cholecalciferol, Vitamin D3, (DIALYVITE VITAMIN D) 125 mcg (5,000 unit) cap Take 1 capsule by mouth once daily. celecoxib (CELEBREX) 200 mg capsule Take 1 capsule by mouth twice daily tirzepatide, weight loss (ZEPBOUND) 2.5 mg/0.5 mL pen injector Inject 2.5 mg subcutaneously one time a week. rizatriptan (MAXALT) 10 mg tablet Take 1 tablet (10 mg) by mouth as needed for migraine headache (see administration instructions). omeprazole (PRILOSEC) 40 mg capsule Take 1 capsule by mouth two times a day. sertraline (ZOLOFT) 100 mg tablet Take 2 tablets by mouth once daily. NIFEdipine XL (ADALAT CC) 30 mg 24 hr tablet Take 1 tablet by mouth once daily. atenolol (TENORMIN) 50 mg tablet Take 1 tablet by mouth once daily. tiZANidine HCl (ZANAFLEX) 4 mg capsule Take 4 mg by mouth daily at bedtime. No current facility-administered medications for this visit. FAMILY HISTORY Problem Relation Age of Onset Diabetes Mother other (colon polyps [Other]) Father no cancer found Heart Father Hypertension Father Ischemic Heart Disease Father Coronary Artery Disease Father COPD Father Thyroid Brother Social History Tobacco Use Smoking status: Never Smokeless tobacco: Never Vaping Use Vaping Use: Never used Substance Use Topics Alcohol use: Yes Comment: rarely, 1-2 weekends per month 5 drinks (prior to ) Drug use: No REVIEW OF SYSTEMS GENERAL: No weight loss, malaise or fevers/chills HEENT: Negative for frequent or significant headaches, No changes in hearing or vision. NECK: Negative for lumps, goiter, pain and significant neck swelling RESPIRATORY: Negative for cough, hemoptysis, wheezing, dyspnea or shortness of breath CARDIOVASCULAR: Negative for chest pain, leg swelling, orthopnea, or palpitations GI: No nausea, vomiting, or diarrhea/constipation. No hematochezia/melena. No heartburn or reflux symptoms. : No history of dysuria, frequency or incontinence MUSCULOSKELETAL: Negative for joint pain or swelling. SKIN: Negative for lesions, rash, and itching ENDOCRINE: Negative for cold or heat intolerance, polyuria, polydipsia and goiter NEURO: + Dizziness MOOD: + Anxiety EXAM: BP 132/68 Pulse 66 Resp 16 Wt 118.9 kg (262 lb 3.2 oz) LMP (LMP Unknown) SpO2 95% BMI 43.96 kg/m PHYSICAL EXAM: General Appearance: Well appearing, alert, in no acute distress, well-hydrated, well nourished. Skin: Skin color, texture, turgor normal, no suspicious rashes or lesions. Head: Normocephalic, no masses, lesions, tenderness or abnormalities. Eyes: Anicteric sclera. Extraocular movements are intact. Lungs: Lungs clear to auscultation. No wheezing, rhonchi, rales. Heart: RRR without murmur, gallop, or rubs. No ectopy. Extremities: No deformities, edema, skin discoloration, clubbing or cyanosis. Good capillary refill. Peripheral Pulses: Normal, Capillary refill <2secs, strong peripheral pulses, Pulses palpable. Neurologic: Gait normal. Sensation grossly intact. ASSESSMENT/PLAN: 1. Dizziness - ICD9: 780.4, ICD10: R42 (primary diagnosis) - Recommend stopping the atenolol for the next 3 days and instructed to monitor heart rate and BP. - Check with insurance about Zio monitor coverage. - Complete stress test. - Schedule consult with cardiology. - Stay well-hydrated, and be mindful with position changes. - CONSULT TO CARDIOLOGY - EXERCISE STRESS ECG (WITHOUT IMAGING) 2. Anxiety associated with depression - ICD9: 300.4, ICD10: F41.8 - Stop Zoloft, start Paxil 40 mg daily. - May use hydroxyzine 25 mg as needed for increased anxiety or difficulty sleeping. - PAROXETINE 40 MG TABLET - HYDROXYZINE HCL 25 MG TABLET 3. Ventricular hypertrophy - ICD9: 429.3, ICD10: I51.7 - Same plan as #1. Follow-up in 1 month or sooner pending test results. Discussed treatment plan and patient voices understanding. Patient's questions answered appropriately. Medications and potential side effects were discussed and patient voices understanding. Mary Mcmillan APRN.NORI This note was partially generated using [employer] voice recognition system. Note was reviewed for accuracy. There may be minor misspellings or grammar miscues with [employer] voice recognition. documented in this encounter [facility] 07-29-2023 Telephone encounter Note Insurance does not cover any medication for weight loss. Patient was notified and advised will have to pay out of pocket. Patient ended call. Iliana Carney MA [facility] 07-29-2023 Miscellaneous Notes Insurance does not cover any medication for weight loss. Patient was notified and advised will have to pay out of pocket. Patient ended call. Iliana Carney MA Patient calling and requesting Prior Authorization for her tirzepatide medication, ordered on 07/23/23 by Mary Mcmillan CNP. Please call patient with any authorization updates. Thank you. Prior authorization requested for the following medication: Medication: tirzepatide 2.5mg/0.5mL Provider: Mary Mcmillan CNP Insurance Company Name: [employer] Pharmacy Name: [facility] Telephone number: [phone] Karishma Baker RN documented in this encounter [facility] 07-29-2023 Telephone encounter Note Patient calling and requesting Prior Authorization for her tirzepatide medication, ordered on 07/23/23 by Mary Mcmillan CNP. Please call patient with any authorization updates. Thank you. Prior authorization requested for the following medication: Medication: tirzepatide 2.5mg/0.5mL Provider: Mary Mcmillan CNP Insurance Company Name: [employer] Pharmacy Name: [facility] Telephone number: [phone] Karishma Baker RN [facility] 07-28-2023 Telephone encounter Note The following approved medication requests have been transmitted electronically. Requested Prescriptions Signed Prescriptions Disp Refills Cholecalciferol, Vitamin D3, (DIALYVITE VITAMIN D) 125 mcg (5,000 unit) cap 30 capsule 11 Sig: Take 1 capsule by mouth once daily. Authorizing Provider: MARY MCMILLAN APRN.CNP [facility] 07-28-2023 Miscellaneous Notes The following approved medication requests have been transmitted electronically. Requested Prescriptions Signed Prescriptions Disp Refills Cholecalciferol, Vitamin D3, (DIALYVITE VITAMIN D) 125 mcg (5,000 unit) cap 30 capsule 11 Sig: Take 1 capsule by mouth once daily. Authorizing Provider: MARY MCMILLAN APRN.HEARING AID DISPENSER Spoke with patient. Given message from provider's office. Patient verbalizes understanding. She has her ECHO scheduled on 08/08. Wants to hold off on Pulmonology until after ECHO done. She has not been taking Vitamin D for awhile. Needs a refill. Pended. Amber Burger RN Patient has been identified by name and date of : Yes, Provider Date Time Patient phones for refill(s): Requested Prescriptions Pending Prescriptions Disp Refills Cholecalciferol, Vitamin D3, (DIALYVITE VITAMIN D) 125 mcg (5,000 unit) cap 30 capsule 2 Sig: Take 1 capsule by mouth once daily. Date of last office visit in primary care: 07/23/2023 Date of next office visit in primary care: 12/03/2023 Please advise. Thank you. Amber Burger RN. TC to pt. LM to call office, ask for triage nurse to get results. Rozina Santiago LPN Can you please call the patient and let her know that I reviewed her lab and x-ray results. Chest x-ray showed some scarring, this can cause shortness of breath. I know we have ordered some cardiac testing which I would like her to complete. If needed we can complete some pulmonary function tests and possibly get her over to pulmonology for further evaluation. Labs were all relatively normal, vitamin D was low. Can you verify if she is taking her vitamin D daily? A1c was 4.8, no signs of diabetes. Please let me know which she would like to do regarding the shortness of breath. I would like her to complete the echocardiogram as discussed during office visit. Thank you. Mary Mcmillan APRN.HEARING AID DISPENSER documented in this encounter [facility] 07-28-2023 Telephone encounter Note Spoke with patient. Given message from provider's office. Patient verbalizes understanding. She has her ECHO scheduled on 08/08. Wants to hold off on Pulmonology until after ECHO done. She has not been taking Vitamin D for awhile. Needs a refill. Pended. Amber Burger RN Patient has been identified by name and date of : Yes, Provider Date Time Patient phones for refill(s): Requested Prescriptions Pending Prescriptions Disp Refills Cholecalciferol, Vitamin D3, (DIALYVITE VITAMIN D) 125 mcg (5,000 unit) cap 30 capsule 2 Sig: Take 1 capsule by mouth once daily. Date of last office visit in primary care: 07/23/2023 Date of next office visit in primary care: 12/03/2023 Please advise. Thank you. Amber Burger RN. [facility] 07-28-2023 Telephone encounter Note TC to pt. LM to call office, ask for triage nurse to get results. Rozina Santiago LPN [facility] 07-28-2023 Telephone encounter Note Can you please call the patient and let her know that I reviewed her lab and x-ray results. Chest x-ray showed some scarring, this can cause shortness of breath. I know we have ordered some cardiac testing which I would like her to complete. If needed we can complete some pulmonary function tests and possibly get her over to pulmonology for further evaluation. Labs were all relatively normal, vitamin D was low. Can you verify if she is taking her vitamin D daily? A1c was 4.8, no signs of diabetes. Please let me know which she would like to do regarding the shortness of breath. I would like her to complete the echocardiogram as discussed during office visit. Thank you. Mary Mcmillan APRN.CNP [facility] 07-23-2023 History of Present illness Narrative Radiology Service Progress Note PATIENT NAME: Salma Browning DATE OF SERVICE: July 23, 2023 TIME: 2:32 PM PATIENT IDENTITY VERIFICATION COMPLETED USING TWO (2) IDENTIFIERS: Name and Date of confirmed by patient verbally. FALL SCREENING: Has the patient had 2 falls in the last year or 1 fall with injury or currently using an Ambulatory Assistive Device (Walker, Cane, Wheelchair, Crutches, etc.)? No PATIENT GENDER DATA: Female. status: : No status: NO. PATIENT RELEVANT IMPLANT DATA REVIEWED: Yes PATIENT PRESENTS WITH AN IMPLANTABLE OR ATTACHED PACKING ROOM WORKER: No RADIOLOGY DEPARTMENT: General X-ray: Exam(s) Completed: Chest X-Ray PERIPHERAL IV DATA: Not applicable SIGNED BY: RT Laurel(R) July 23, 2023 2:32 PM documented in this encounter [facility] 07-23-2023 Instructions Mary Mcmillan APRN.CNP - 07/23/2023 2:04 PM EDT Complete labs, Echo and chest xray Start Zepbound 2.5 mg weekly to help with weight loss, you may notice nausea days following injection. Recommend tracking food, [employer]itnesspal karyna Increasing protein, veggies, and try to get some form of exercise. Water therapy may be helpful due to knee pain May trial cutting Atenolol in half for the next 3-5 days to see if heart rate improves as well as dizziness. Follow up in 1 month or sooner pending test results. Condiments: G Del [employer] Pro and cottage cheese Calories: 1800 documented in this encounter [facility] 07-23-2023 History of Present illness Narrative This is a 48 year old female who presents today with: Patient presents with: Acute Visit: weight loss disscussion HISTORY OF PRESENT ILLNESS: Salma Browning is a 48 year old female. Patient presents with: Acute Visit: weight loss disscussion Here in the office to discuss weight. Current weight 265 lbs. Refers that about 1-2 weeks ago, Stopped drinking regular pop, now drinking zero sugar. Was only eating once per day. Trying to increase protein, veggies. Exercise is difficult due knee pain. Bone Spurs in both knees. Refers she has had increased SOB. Has been on going for past several months. Some increase swelling in the legs. Gets winded going up steps and walking. No wheezing. Last echo completed in 2014 did show some enlargement of left ventricle. HTN: Taking Nifedipine XL 30 mg and Atenlol 50 mg daily. Has some dizziness with bending over. Denies any palpitations or chest pain. PAST MEDICAL HISTORY: PAST MEDICAL HISTORY Diagnosis Date Abnormal antibody titer On type and screen during #2. Repeat nl, no major antibodies, negative repeat antibody screen. ?False positive. Abnormal Pap smear of cervix Acute gastritis without mention of hemorrhage Atrophic gastritis 2010 CHOLELITHIASIS See also GALLBLADDER 08/26/2005 Congenital choledochal cyst Depression Depressive disorder, not elsewhere classified Diaphragmatic hernia without mention of obstruction or gangrene Esophagitis, unspecified Fatty tumor of liver 2005 FX LATERAL MALLEOLUS-CLOSE 09/03/2008 GERD (gastroesophageal reflux disease) 03/15/2012 On 3 meds in . ?hiatal hernia. 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 Dr Rivera Pre-eclampsia added to pre-existing hypertension 11/17/2014 Unspecified hemorrhoids without mention of complication Hemorrhoids PAST SURGICAL HISTORY Procedure Laterality Date CHOLECYSTECTOMY COLONOSCOPY FLX DX W/COLLJ SPEC WHEN PFRMD 05/09/2019 Colonoscopy EGD TRANSORAL BIOPSY SINGLE/MULTIPLE 09/22/10 ESOPHAGOGASTRODUODENOSCOPY TRANSORAL DIAGNOSTIC 05/09/2019 EGD HYSTERECTOMY HX 2017 [facility] PAST SURGICAL HISTORY OF Tumor removed from stomach, benign per pt PAST SURGICAL HISTORY OF 03/2009 left ankle fracture REM LESIO TRUNK,ARM,LEG 1.1 -2.0CM REMOVAL DEEP IMPLANT 12/06/09 Performed by KATHI POWELL at [facility] RPR DISLOC PERONEAL TENDON W/O FIBULAR OSTEOTOMY 12/06/09 Performed by KATHI POWELL at [facility] SIGMOIDOSCOPY FLX DX W/COLLJ SPEC BR/WA IF PFRMD 06/2004 Sigmoidoscopy, flexible SINUSOTOMY MAXILLARY ANTROTOMY INTRANASAL Byrd-Elliott sinusotomy TONSILLECTOMY PRIMARY/SECONDARY <AGE 12 Tonsillectomy VAGINOSCOPY ALLERGIES Bupropion MEDICATIONS Current Outpatient Medications Medication Sig celecoxib (CELEBREX) 200 mg capsule Take 1 capsule by mouth two times a day. rizatriptan (MAXALT) 10 mg tablet Take 1 tablet (10 mg) by mouth as needed for migraine headache (see administration instructions). omeprazole (PRILOSEC) 40 mg capsule Take 1 capsule by mouth two times a day. sertraline (ZOLOFT) 100 mg tablet Take 2 tablets by mouth once daily. NIFEdipine XL (ADALAT CC) 30 mg 24 hr tablet Take 1 tablet by mouth once daily. atenolol (TENORMIN) 50 mg tablet Take 1 tablet by mouth once daily. Cholecalciferol, Vitamin D3, (DIALYVITE VITAMIN D) 125 mcg (5,000 unit) cap Take 1 capsule by mouth once daily. benzonatate (TESSALON PERLES) 100 mg capsule Take 2 capsules by mouth three times daily as needed. (Patient not taking: Reported on 05/14/2023) albuterol HFA (PROAIR HFA) 90 mcg/actuation inhaler Inhale 2 Puffs as instructed every 6 hours as needed. (Patient not taking: Reported on 05/14/2023) tiZANidine HCl (ZANAFLEX) 4 mg capsule Take 4 mg by mouth daily at bedtime. albuterol HFA (PROVENTIL HFA, VENTOLIN HFA) 90 mcg/actuation inhaler Inhale 2 Puffs as instructed every 4 hours as needed. (Patient not taking: Reported on 12/10/2021) No current facility-administered medications for this visit. FAMILY HISTORY Problem Relation Age of Onset Diabetes Mother other (colon polyps [Other]) Father no cancer found Heart Father Hypertension Father Ischemic Heart Disease Father Coronary Artery Disease Father COPD Father Thyroid Brother Social History Tobacco Use Smoking status: Never Smokeless tobacco: Never Vaping Use Vaping Use: Never used Substance Use Topics Alcohol use: Yes Comment: rarely, 1-2 weekends per month 5 drinks (prior to ) Drug use: No REVIEW OF SYSTEMS GENERAL: + Weight Gain HEENT: Negative for frequent or significant headaches, No changes in hearing or vision. NECK: Negative for lumps, goiter, pain and significant neck swelling RESPIRATORY: + SOB CARDIOVASCULAR: Negative for chest pain, leg swelling, orthopnea, or palpitations GI: No nausea, vomiting, or diarrhea/constipation. No hematochezia/melena. No heartburn or reflux symptoms. : No history of dysuria, frequency or incontinence MUSCULOSKELETAL: Negative for joint pain or swelling. SKIN: Negative for lesions, rash, and itching ENDOCRINE: Negative for cold or heat intolerance, polyuria, polydipsia and goiter NEURO: + Dizziness MOOD: Negative for depression, anxiety, or suicidal ideation. EXAM: BP 124/88 Pulse (!) 55 Resp 16 Wt 120.2 kg (265 lb) LMP (LMP Unknown) SpO2 99% BMI 44.43 kg/m PHYSICAL EXAM: General Appearance: Well appearing, alert, in no acute distress, well-hydrated, well nourished. Skin: Skin color, texture, turgor normal, no suspicious rashes or lesions. Head: Normocephalic, no masses, lesions, tenderness or abnormalities. Eyes: Anicteric sclera. Extraocular movements are intact. Lungs: Lungs clear to auscultation. No wheezing, rhonchi, rales. Heart: Positive findings: bradycardia. Extremities: No deformities, edema, skin discoloration, clubbing or cyanosis. Good capillary refill. Peripheral Pulses: Normal, Capillary refill <2secs, strong peripheral pulses, Pulses palpable. Neurologic: Gait normal. Sensation grossly intact. ECG: Bradycardia ASSESSMENT/PLAN: 1. SOB (shortness of breath) - ICD9: 786.05, ICD10: R06.02 (primary diagnosis) - Complete labs, echo, chest xray - ECHO - PERFLUTREN LIPID MICROSPHERES 1.1 MG/ML INJECTION IN NS 10 ML - SODIUM CHLORIDE 0.9 % (FLUSH) INJECTION SYRINGE - ECG COMPLETE - XR CHEST 2V FRONTAL/LAT - COMPLETE BLOOD COUNT AND DIFFERENTIAL 2. Dizziness - ICD9: 780.4, ICD10: R42 - Recommend trial of reducing atenolol 25 mg daily, concerns this could be causing the bradycardia and dizziness. - Instructed to monitor blood pressure and heart rate, reach out to the office in 3-5 days with an update. 3. Class 3 severe obesity with body mass index (BMI) of 40.0 to 44.9 in adult, unspecified obesity type, unspecified whether serious comorbidity present (HCC) - ICD9: 278.01, V85.41, ICD10: E66.01, Z68.41 Newly diagnosed - Add Tirzepatide (Zepbound) - Due to cardiac history she is not a candidate for many of the stimulant medications. - Recommend tracking food, increase lean protein, vegetables, and get some form exercise. Due to chronic knee pain recommend water therapy/exercise. - Follow-up in 1 month. - COMPREHENSIVE METABOLIC PANEL - HEMOGLOBIN A1C - THYROID STIMULATING HORMONE - T4 FREE/FREE THYROXINE - TIRZEPATIDE (WEIGHT LOSS) 2.5 MG/0.5 ML SUBCUTANEOUS PEN INJECTOR 4. Vitamin D deficiency - ICD9: 268.9, ICD10: E55.9 - VITAMIN D 25 HYDROXY Follow up in 1 month or sooner pending test results. Discussed treatment plan and patient voices understanding. Patient's questions answered appropriately. Medications and potential side effects were discussed and patient voices understanding. Mary Mcmillan APRN.NORI This note was partially generated using [employer] voice recognition system. Note was reviewed for accuracy. There may be minor misspellings or grammar miscues with [employer] voice recognition. documented in this encounter [facility] 07-21-2023 Miscellaneous Notes Noted, thank you. Mary Mcmillan APRN.NORI Patient notified of recommendations from NORI, verbalizes understanding of instructions. Pt stated she saw bpm solution architect 6 months ago. Pt made appt on 07/23/23. Rozina Santiago LPN Can you please call the patient back and let her know that she will need an office visit to further discuss medications. We normally will need an in office weight before we can start any medication. I usually will refer people to nutrition and discuss importance of making lifestyle changes. Thank you. Mary Mcmillan APRN.NORI Patient returned call, her insurance does not cover Weygovy and Ozempic. Patient asking if there is any other recommendation. Please advise. Phoned patient and went over notes below from Mary Mcmillan PATIENT CARE, patient will check with her insurance about the other medication. Can you please call the patient and let her know that insurance will not cover GLP-1 injectables for weight loss. These medications are usually only covered if you have type 2 diabetes. She may check with her insurance about the coverage for Wegovy, this is tailored for weight loss but is the same formula as Ozempic. Thank you. Mary Mcmillan APRN.HEARING AID DISPENSER Patient calls to ask about trying Ozempic. She reports that Lea FORREST recommended it for weight loss to help with her knee pain/problems and told her to speak with her PCP about prescribing it. If provider is agreeable. Patient would like to have prescription sent to [facility]. Last OV: 05/14/2023 Roxana Kimball RN documented in this encounter [facility] 06-29-2023 Note HNO ID: [id number] Author: FLORENCIO FRANKLIN Tech Service: ? Author Type: Concrete Mixer Loader Truck Mounted Type: Progress Notes Filed: 06/29/2023 13:21 Note Text: Radiology Service Progress Note PATIENT NAME: Salma Browning DATE OF SERVICE: June 29, 2023 TIME: 1:20 PM PATIENT IDENTITY VERIFICATION COMPLETED USING TWO (2) IDENTIFIERS: Name and Date of confirmed by patient verbally. FALL SCREENING: Has the patient had 2 falls in the last year or 1 fall with injury or currently using an Ambulatory Assistive Device (Walker, Cane, Wheelchair, Crutches, etc.)? No PATIENT GENDER DATA: Female. status: : No status: NO. PATIENT RELEVANT IMPLANT DATA REVIEWED: Not Applicable PATIENT PRESENTS WITH AN IMPLANTABLE OR ATTACHED PACKING ROOM WORKER: No RADIOLOGY DEPARTMENT: General X-ray: Exam(s) Completed: Lower Extremity X-Ray(s): Knee, AP / Lat / Tunne / Merchant Right and Wt. Bearing PERIPHERAL IV DATA: Not applicable SIGNED BY: Yadira Perez June 29, 2023 1:20 PM [facility] 06-29-2023 History of Present illness Narrative Radiology Service Progress Note PATIENT NAME: Salma Browning DATE OF SERVICE: June 29, 2023 TIME: 1:20 PM PATIENT IDENTITY VERIFICATION COMPLETED USING TWO (2) IDENTIFIERS: Name and Date of confirmed by patient verbally. FALL SCREENING: Has the patient had 2 falls in the last year or 1 fall with injury or currently using an Ambulatory Assistive Device (Walker, Cane, Wheelchair, Crutches, etc.)? No PATIENT GENDER DATA: Female. status: : No status: NO. PATIENT RELEVANT IMPLANT DATA REVIEWED: Not Applicable PATIENT PRESENTS WITH AN IMPLANTABLE OR ATTACHED PACKING ROOM WORKER: No RADIOLOGY DEPARTMENT: General X-ray: Exam(s) Completed: Lower Extremity X-Ray(s): Knee, AP / Lat / Tunne / Merchant Right and Wt. Bearing PERIPHERAL IV DATA: Not applicable SIGNED BY: Yadira Perez June 29, 2023 1:20 PM documented in this encounter [facility] 06-28-2023 Miscellaneous Notes OK to refill as ordered Susan Sevilla MD [facility]-05/14/23 Labs-07/31/23 NOV-12/03/23 Rozina Santiago LPN documented in this encounter [facility] 06-07-2023 Miscellaneous Notes The following approved medication requests have been transmitted electronically. Requested Prescriptions Pending Prescriptions Disp Refills omeprazole (PRILOSEC) 40 mg capsule 60 capsule 5 Sig: Take 1 capsule by mouth two times a day. sertraline (ZOLOFT) 100 mg tablet 60 tablet 5 Sig: Take 2 tablets by mouth once daily. NIFEdipine XL (ADALAT CC) 30 mg 24 hr tablet 30 tablet 5 Sig: Take 1 tablet by mouth once daily. atenolol (TENORMIN) 50 mg tablet 30 tablet 5 Sig: Take 1 tablet by mouth once daily. Neal Gomez APRN.HEARING AID DISPENSER [facility]-05/14/23 Labs-02/08/23Feb-12/03/23 Rozina Santiago LPN documented in this encounter [facility] 05-27-2023 Miscellaneous Notes Spoke with patient. Given message from provider's office. Patient verbalizes understanding. Transferred to [facility] for Physical Therapy appointment. Amber Burger RN TC to pt. LM to call office, ask for triage nurse to get results. Rozina Santiago LPN Please let the patient know that her MRI of the cervical spine was denied by our referral department. They are requesting 6 weeks of PHYSICAL THERAPY for this issue. I placed a referral to PHYSICAL THERAPY. I cancelled her MRI of the neck. She should continue to follow up with spine center provider as scheduled. If after 6 weeks, she can return to or for re-evaluation. Neal Gomez APRN.CNP documented in this encounter [facility] 05-17-2023 Miscellaneous Notes Patient active MyChart/reviewed results via [employer]. Patient notified via CardioLogs message. Swapna Argueta MA Please let the patient know that her x-ray of the cervical spine shows some arthritis findings. Nothing significant at this point. Given her continued pain in the neck area, I would recommend continuing with the MRI of the cervical spine that was ordered once insurance approves. Continue with plan to follow-up with spine center. Neal Gomez APRN.NORI documented in this encounter [facility] 05-14-2023 History of Present illness Narrative Radiology Service Progress Note PATIENT NAME: Salma Browning DATE OF SERVICE: May 14, 2023 TIME: 10:03 AM PATIENT IDENTITY VERIFICATION COMPLETED USING TWO (2) IDENTIFIERS: Name and Date of confirmed by patient verbally. FALL SCREENING: Has the patient had 2 falls in the last year or 1 fall with injury or currently using an Ambulatory Assistive Device (Walker, Cane, Wheelchair, Crutches, etc.)? No PATIENT GENDER DATA: Female. status: : No status: NO. PATIENT RELEVANT IMPLANT DATA REVIEWED: Not Applicable PATIENT PRESENTS WITH AN IMPLANTABLE OR ATTACHED PACKING ROOM WORKER: No RADIOLOGY DEPARTMENT: General X-ray: Exam(s) Completed: Spine X-Ray(s): Cervical AP / LAT / OBL PERIPHERAL IV DATA: Not applicable SIGNED BY: RT Laurel(R) May 14, 2023 10:03 AM documented in this encounter [facility] 05-14-2023 Instructions Neal Gomez APRN.CNP - 05/14/2023 9:50 AM EST Get xray today Schedule MRI of neck, make sure insurance approves prior to getting Schedule appt with spine center. Neal Gomez APRN.CNP documented in this encounter [facility] 05-14-2023 History of Present illness Narrative Chief Complaint Patient presents with: Follow Up New head and neck pain HPI Salma Browning is a 48 year old female who presents here today for Above Complaints. follow up for neck pain. Patient is here for complaint of neck pain. Present for 3 to 4 months. Described as stabbing. Radiating to the base of the skull. Left side, greater than right. Causing headaches. Was evaluated in November 2022 for this complaint. Provider at that time thought it was more related to muscles as she had upper trapezius tenderness. Consider treatment with massage, chiropractor was recommended. Massage did not help. She denies any direct injury to her neck that she can remember. Believes this pain is getting worse. She does follow with pain management, Dr. Zhou but is not following with him anymore. She received injections into the neck area and was prescribed muscle relaxers which have not helped. She is taking approximately 6 ibuprofen per day to take the edge off. Has not been sleeping well. At this time I do not have any imaging of the cervical spine to review in our system. No fevers, chills, weight loss, visual changes. Denies any slurring of speech, difficulty finding words, frequent falls. Past medical history, appointments, medications, allergies reviewed. EXAM: BP 139/84 Pulse (!) 58 Wt 121.1 kg (267 lb) LMP (LMP Unknown) SpO2 99% BMI 44.76 kg/m General Appearance: Well appearing, alert, in no acute distress, well-hydrated, well nourished.. Musculoskeletal: No pain with flexion of the neck, increased pain with extension of the neck. Difficulty with turning her head to the right and the left. She does have diffuse moderate tenderness of the upper trapezius. She does have vertebral tenderness in the cervical area near the posterior left and right scalene. No mass palpated on exam. No erythema, warmth, swelling of the cervical spine area. Neuro: Awake, alert and oriented x 3, Cranial nerves II-XII grossly intact, Reflexes symmetrical, Normal gait, and No involuntary motions. Smile symmetrical, tongue is midline, pupils constricting to light appropriately. ASSESSMENT/PLAN: 1. Cervicalgia - ICD9: 723.1, ICD10: M54.2 (primary diagnosis) -Becoming chronic like neck pain. No trauma or injury that caused this neck pain. She is tried multiple modes of therapy including NSAIDs, prednisone, muscle relaxers, massage, and getting multiple injections into this area of concern by paint mixer. There has been little to no improvement. There has been no imaging completed by any provider at this point. Start with x-ray of the cervical spine today. Schedule MRI of the cervical spine. See spine medicine for further evaluation and treatment. - CONSULT TO SPINE MEDICAL CENTER - MRI CERVICAL SPINE WO IVCON - XR CERV OTHER 4V AP/LAT/OBL 2. Headache, unspecified headache type - ICD9: 784.0, ICD10: R51.9 -Likely radiating from her neck pain. Neal Gomez APRN.HEARING AID DISPENSER Medical Decision Making: Problems: Moderate: 1+ chronic illnesses with change Data: Unique test(s) ordered: 2 Risk: Moderate: Moderate risk from testing/treatment Medical Decision Making Level: 4 - Moderate This note was partly generated using [employer] voice recognition dictation and may contain some misspelled or inaccurate words missed on review. documented in this encounter [facility] 05-13-2023 Miscellaneous Notes Pt states she had seen Mary Mcmillan PATIENT CARE and she told her that her neck was tight and maybe she pulled something in her shoulder, and told her to try massage. Pt denies any injury to her neck. Says the pain has been going on for 3-4 months and has been getting worse. Reports the pain is like a constant stabbing that shoots up the back of her head. She states she has got to her pain management and received injections and muscle relaxer's ans those haven't helped. She said she takes 6 Ibuprofen a day to take the edge off. Pt reports she hasn't bee sleeping well because she can't lay on her back or side because it makes her neck hurt as well as putting her hair in a pony tail. Pt scheduled with Neal Gomez NP tomorrow. documented in this encounter [facility] 03-01-2023 Miscellaneous Notes Pharmacist notified. Flexeril rx will be cancelled. Beena Garcia Ma If she is getting zanaflex then she should not also use flexeril Susan Sevilla MD Johanna from [facility] calling stating is wanting to refill Flexeril 10 mg. Pt has rx for Zanaflex [address] Zhou. Just wanted to make sure pcp was aware and if ok with refilling Flexeril. Rx is from 12/29/22(approved by Neal). Please call Johanna at [phone]. Ilir Herron LPN documented in this encounter [facility] 03-01-2023 Miscellaneous Notes The following approved medication requests have been transmitted electronically. Requested Prescriptions Pending Prescriptions Disp Refills omeprazole (PRILOSEC) 40 mg capsule 60 capsule 0 Sig: Take 1 capsule by mouth two times a day. sertraline (ZOLOFT) 100 mg tablet 60 tablet 0 Sig: Take 2 tablets by mouth once daily. NIFEdipine XL (ADALAT CC) 30 mg 24 hr tablet 30 tablet 0 Sig: Take 1 tablet by mouth once daily. atenolol (TENORMIN) 50 mg tablet 30 tablet 0 Sig: Take 1 tablet by mouth once daily. Neal Gomez APRN.HEARING AID DISPENSER documented in this encounter [facility] 02-20-2023 History of Present illness Narrative VIRTUAL VISIT PROGRESS NOTE This is a virtual visit using [employer]ioLogs Zoom Video Visit. It required patient-provider interaction for the medical decision making as documented below. I have communicated my name and active licensure. The patient's identity and physical location were verified at the time of this visit. Either the patient or their legal patient financial representative has been informed of the risks and benefits of -- and alternatives to -- treatment through a remote evaluation and consents to proceed with the evaluation remotely. Salma Browning is a 48 year old female seen for left foot pain. HISTORY REVIEWED (electronic chart updated): PAST MEDICAL HISTORY Diagnosis Date Abnormal antibody titer On type and screen during #2. Repeat nl, no major antibodies, negative repeat antibody screen. ?False positive. Abnormal Pap smear of cervix Acute gastritis without mention of hemorrhage Atrophic gastritis 2010 CHOLELITHIASIS See also GALLBLADDER 08/26/2005 Congenital choledochal cyst Depression Depressive disorder, not elsewhere classified Diaphragmatic hernia without mention of obstruction or gangrene Esophagitis, unspecified Fatty tumor of liver 2005 FX LATERAL MALLEOLUS-CLOSE 09/03/2008 GERD (gastroesophageal reflux disease) 03/15/2012 On 3 meds in . ?hiatal hernia. 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 Dr Rivera Pre-eclampsia added to pre-existing hypertension 11/17/2014 Unspecified hemorrhoids without mention of complication Hemorrhoids PAST SURGICAL HISTORY Procedure Laterality Date CHOLECYSTECTOMY COLONOSCOPY FLX DX W/COLLJ SPEC WHEN PFRMD 05/09/2019 Colonoscopy EGD TRANSORAL BIOPSY SINGLE/MULTIPLE 09/22/10 ESOPHAGOGASTRODUODENOSCOPY TRANSORAL DIAGNOSTIC 05/09/2019 EGD HYSTERECTOMY HX 2017 [facility] PAST SURGICAL HISTORY OF Tumor removed from stomach, benign per pt PAST SURGICAL HISTORY OF 03/2009 left ankle fracture REM LESIO TRUNK,ARM,LEG 1.1 -2.0CM REMOVAL DEEP IMPLANT 12/06/09 Performed by KATHI POWELL at [facility] RPR DISLOC PERONEAL TENDON W/O FIBULAR OSTEOTOMY 12/06/09 Performed by KATHI POWELL at [facility] SIGMOIDOSCOPY FLX DX W/COLLJ SPEC BR/WA IF PFRMD 06/2004 Sigmoidoscopy, flexible SINUSOTOMY MAXILLARY ANTROTOMY INTRANASAL Byrd-Elliott sinusotomy TONSILLECTOMY PRIMARY/SECONDARY <AGE 12 Tonsillectomy VAGINOSCOPY FAMILY HISTORY Problem Relation Age of Onset Diabetes Mother other (colon polyps [Other]) Father no cancer found Heart Father Hypertension Father Ischemic Heart Disease Father Coronary Artery Disease Father COPD Father Thyroid Brother Social History Tobacco Use Smoking status: Never Smokeless tobacco: Never Vaping Use Vaping Use: Never used Substance Use Topics Alcohol use: Yes Comment: rarely, 1-2 weekends per month 5 drinks (prior to ) Drug use: No Current Outpatient Medications Medication Sig omeprazole (PRILOSEC) 40 mg capsule Take 1 capsule by mouth twice daily. sertraline (ZOLOFT) 100 mg tablet Take 2 tablets by mouth once daily. NIFEdipine XL (ADALAT CC) 30 mg 24 hr tablet Take 1 tablet by mouth once daily. atenolol (TENORMIN) 50 mg tablet Take 1 tablet by mouth once daily. Cholecalciferol, Vitamin D3, (DIALYVITE VITAMIN D) 125 mcg (5,000 unit) cap Take 1 capsule by mouth once daily. cyclobenzaprine (FLEXERIL) 10 mg tablet Take 1 tablet by mouth three times daily as needed for muscle spasm. etodolac (LODINE) 400 mg tablet Take 1 tablet by mouth twice daily. benzonatate (TESSALON PERLES) 100 mg capsule Take 2 capsules by mouth three times daily as needed. albuterol HFA (PROAIR HFA) 90 mcg/actuation inhaler Inhale 2 Puffs as instructed every 6 hours as needed. tiZANidine HCl (ZANAFLEX) 4 mg capsule Take 4 mg by mouth daily at bedtime. rizatriptan (MAXALT) 10 mg tablet Take 1 tablet by mouth as needed for migraine headache (see administration instructions). albuterol HFA (PROVENTIL HFA, VENTOLIN HFA) 90 mcg/actuation inhaler Inhale 2 Puffs as instructed every 4 hours as needed. (Patient not taking: Reported on 12/10/2021) No current facility-administered medications for this visit. ALLERGIES Allergen Reactions Bupropion Itching PHYSICAL EXAMINATION: Patient has pain left midfoot Xrays and ct reviewed. No evidence of fracture. Mild arthritis of left 1st met cun joint ASSESSMENT: (M19.079) Arthritis of midfoot (primary encounter diagnosis) (M79.672) Pain in left foot PLAN: Discussed numbness in left foot. We discussed in the past of possible exostectomy vs first met cun fusion. If she is complaining more of numbness, cannot guarantee that surgery will resolve her pain. I would like her to come in for face to face exam. May consider first met cun injection under xray There are no Patient Instructions on file for this visit. I spent a total of 10 minutes on the date of the service which included counseling and educating the patient/family/caregiver Ronak Pulido DPM documented in this encounter [facility] 02-16-2023 Miscellaneous Notes [facility] Nutrition and Diabetes Servc[facility] sends fax requesting recent labs and OV note within the last 6 months for pt upcoming appt with them on 02/22/23 at 1 PM. Records sent. Beena Garcia Ma documented in this encounter [facility] 02-10-2023 Miscellaneous Notes Patient scheduled. Smiley Myrick LPN documented in this encounter [facility] 12-29-2022 Miscellaneous Notes The following approved medication requests have been transmitted electronically. Requested Prescriptions Pending Prescriptions Disp Refills omeprazole (PRILOSEC) 40 mg capsule 60 capsule 0 Sig: Take 1 capsule by mouth twice daily. sertraline (ZOLOFT) 100 mg tablet 60 tablet 0 Sig: Take 2 tablets by mouth once daily. NIFEdipine XL (ADALAT CC) 30 mg 24 hr tablet 30 tablet 0 Sig: Take 1 tablet by mouth once daily. atenolol (TENORMIN) 50 mg tablet 30 tablet 0 Sig: Take 1 tablet by mouth once daily. Neal Gomez APRN.NORI Patient has been identified by name and date of : Yes Requested Prescriptions Pending Prescriptions Disp Refills omeprazole (PRILOSEC) 40 mg capsule 60 capsule 0 Sig: Take 1 capsule by mouth twice daily. sertraline (ZOLOFT) 100 mg tablet 60 tablet 0 Sig: Take 2 tablets by mouth once daily. NIFEdipine XL (ADALAT CC) 30 mg 24 hr tablet 30 tablet 0 Sig: Take 1 tablet by mouth once daily. atenolol (TENORMIN) 50 mg tablet 30 tablet 0 Sig: Take 1 tablet by mouth once daily. RX INSTRUCTIONS: Patient aware RX will be sent to pharmacy. No need to notify patient. Patient last office visit: 12/02/22 Patient next office visit: 12/03/23 Carmen Corrales MA documented in this encounter [facility] 12-29-2022 Miscellaneous Notes The following approved medication requests have been transmitted electronically. Requested Prescriptions Pending Prescriptions Disp Refills cyclobenzaprine (FLEXERIL) 10 mg tablet 30 tablet 1 Sig: Take 1 tablet by mouth three times daily as needed for muscle spasm. Neal Gomez APRN.HEARING AID DISPENSER Patient has been identified by name and date of : Yes Requested Prescriptions Pending Prescriptions Disp Refills cyclobenzaprine (FLEXERIL) 10 mg tablet 30 tablet 1 Sig: Take 1 tablet by mouth three times daily as needed for muscle spasm. RX INSTRUCTIONS: Patient aware RX will be sent to pharmacy. No need to notify patient. Patient last office visit: 12/02/22 Patient next office visit: 12/03/23 Carmen Corrales MA documented in this encounter [facility] 12-25-2022 History of Present illness Narrative Radiology Service Progress Note PATIENT NAME: Salma Browning DATE OF SERVICE: December 25, 2022 TIME: 9:31 AM PATIENT IDENTITY VERIFICATION COMPLETED USING TWO (2) IDENTIFIERS: Name and Date of confirmed by patient verbally. FALL SCREENING: Has the patient had 2 falls in the last year or 1 fall with injury or currently using an Ambulatory Assistive Device (Walker, Cane, Wheelchair, Crutches, etc.)? No PATIENT GENDER DATA: Female. status: : No status: NO. PATIENT RELEVANT IMPLANT DATA REVIEWED: Yes RADIOLOGY DEPARTMENT: General X-ray: Exam(s) Completed: Chest X-Ray PERIPHERAL IV DATA: Not applicable SIGNED BY: RT Alber(R) December 25, 2022 9:31 AM documented in this encounter [facility] 12-25-2022 Miscellaneous Notes Please complete [facility] Nutrition form and fax to [facility]. Krystyna Resendez Ma documented in this encounter [facility] 12-21-[address] - 12/21/2022 9:29 AM EDT Aim for breakfast ,lunch and dinner, no snacks Breakfast ideas; whole grain toast with pnb; low fat cottage cheese; or a protein drink Follow the Plate Method at lunch and dinner: Use a 9 plate - 1/2 plate vegetables-non starchy such as green beans, greens, broccoli, cauliflower, etc (1 serving of fruit optional outside of plate) - 1/4 plate lean protein-primarily chicken, turkey fish, lean red 1-2 x per week at most (size of palm) - 1/4 plate whole grain or starchy vegetable such as corn, peas, potatoes, beans (size of fist, 1 cup) All beverages calorie free and sugar free, to transition aim for two diet Pepsi then the rest water ;if having an energy drink calorie free only and only in the morning Aim for at least 64 oz water daily Aim for at least 30 min cardio most days, plus 2-3 days weight resistance (Jazz[employer]kt[employer] videos such as Yesika Singh or Ciara Kay) documented in this encounter [facility] 12-21-2022 History of Present illness Narrative Nutrition Therapy Initial Assessment Nutrition Diagnosis: Overweight/obesity, related to, excess energy intake and physical inactivity, as evidenced by BMI above normative standard for age and gender. RECOMMENDED MALNUTRITION DIAGNOSIS: NO MALNUTRITION IDENTIFIED NUTRITION CARE PLAN Nutrition Intervention 12/21/2022: modify type and amount of food or beverage Aim for breakfast ,lunch and dinner, no snacks Breakfast ideas; whole grain toast with pnb; low fat cottage cheese; or a protein drink Follow the Plate Method at lunch and dinner: Use a 9 plate - 1/2 plate vegetables-non starchy such as green beans, greens, broccoli, cauliflower, etc (1 serving of fruit optional outside of plate) - 1/4 plate lean protein-primarily chicken, turkey fish, lean red 1-2 x per week at most (size of palm) - 1/4 plate whole grain or starchy vegetable such as corn, peas, potatoes, beans (size of fist, 1 cup) All beverages calorie free and sugar free, to transition aim for two diet Pepsi then the rest water ;if having an energy drink calorie free only and only in the morning Aim for at least 64 oz water daily Aim for at least 30 min cardio most days, plus 2-3 days weight resistance (Youtube videos such as Yesika Singh or Ciara Kay) Nutrition Monitoring & Evaluation: 1-2 lb weightloss per week Need for Follow up: 4-6 weeks Patient presents for initial MNT as relates to class 3 obesity Body mass index is 44.26 kg/m . Had gained in the past with pregnancies. Other medical issues HTN, GERD, OA, anxiety . Highest weight 270 about one year ago; lowest adult weight unsure, does not like to weigh. Had success in the past with very low calorie diet. Needs to have foot surgery after vit D in target range, desires weight loss prior to surgery. Has a goal weight of 200 initially Intake noted for usually eating one meal at dinner, states eating chicken nuggets while kids are eating. Occasional fast food breakfast. Majority of calories from calorie containing beverages. Is active at work but no regular exercise. Patient's symptoms are: Weight Concerns: failure to lose weight Diet History: Breakfast - will have occ. Kaymus; used to have pnb toast, Snack - no Lunch - no Snack - no Dinner - 4-6 couple chicken nuggets Pepsi Snack - no Beverages - Pepsi 6 cans per day. Energy drinks with sugar Alcohol-1-2 per week Vitamins/Supplements - vit D by prescription Picky eater Like cottage cheese Activity: Activities of Daily Living: Active 50% of the day. 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 Active on feet at work Anthropometrics: Height: Last 1 Encounter Ht Readings: Date: Ht: 12/21/2022 164.5 cm (5' 4.76) Current weight: Last 1 Encounter Wt Readings: Date: Wt: 12/21/2022 119.7 kg (264 lb) Body mass index is 44.26 kg/m . Resting Metabolic Rate: 1827 Malnutrition Screening Significant unintentional weight loss? No Eating less than 75% of usual intake for more than 2 weeks? No Potential Signs of Inflammation: no identifiable sources Education Materials Provided: Plate method READINESS TO LEARN Cognitive ability: Alert and oriented Motivation to learn: Interested Family support: Unable to assess - Family not present Instruction provided to: Patient Patient learns best by: Individual Instruction Factors affecting learning: None Physical limitations affecting learning: None Referred/Supervised by: Amy CODY Billing Type: Initial Assess/15 min 2 units SIGNATURE: Racquel Johnson RD PATIENT NAME: Salma Browning DATE: December 21, 2022 TIME: 9:08 AM documented in this encounter [facility] 12-09-2022 History of Present illness Narrative Patient presents with: Sore Throat: ST, bodyaches and fever-exposed to COVID x 2 days HPI: Feeling sick for 3 days. Her boyfriend has COVID. Her kids had URIs but are better. Positive symptoms: Cough, Sore throat, Nasal Congestion, Rhinorrhea, Body Aches, Fatigue, Headache, Negative symptoms: Vomiting, Diarrhea, MEDICATIONS: Current Outpatient Medications Medication Sig cyclobenzaprine (FLEXERIL) 10 mg tablet Take 1 tablet by mouth three times daily as needed for muscle spasm. omeprazole (PRILOSEC) 40 mg capsule Take 1 capsule by mouth twice daily. sertraline (ZOLOFT) 100 mg tablet Take 2 tablets by mouth once daily. NIFEdipine XL (ADALAT CC) 30 mg 24 hr tablet Take 1 tablet by mouth once daily. Cholecalciferol, Vitamin D3, (DIALYVITE VITAMIN D) 125 mcg (5,000 unit) cap Take 1 capsule by mouth once daily. tiZANidine HCl (ZANAFLEX) 4 mg capsule Take 4 mg by mouth daily at bedtime. etodolac (LODINE) 400 mg tablet Take 1 tablet by mouth twice daily. rizatriptan (MAXALT) 10 mg tablet Take 1 tablet by mouth as needed for migraine headache (see administration instructions). atenolol (TENORMIN) 50 mg tablet Take 1 tablet by mouth once daily. albuterol HFA (PROVENTIL HFA, VENTOLIN HFA) 90 mcg/actuation inhaler Inhale 2 Puffs as instructed every 4 hours as needed. (Patient not taking: Reported on 12/10/2021) No current facility-administered medications for this visit. ALLERGIES: ALLERGIES Allergen Reactions Bupropion Itching VITALS: BP 122/78 Pulse 66 Temp 36.3 C (97.4 F) (Tympanic) Resp 18 Wt 118.2 kg (260 lb 9.6 oz) LMP (LMP Unknown) SpO2 97% BMI 43.68 kg/m PHYSICAL EXAM: GEN: mildly ill appearing HEENT: PERRL, EOMI, conjunctiva clear Throat: moist mucous membranes, mild erythema, no exudate Neck: supple, HEART: regular rate and rhythm, no murmurs LUNGS: clear to auscultation, no wheezes or crackles, no increased WOB ASSESSMENT/PLAN: 1. URI, acute - ICD9: 465.9, ICD10: J06.9 (primary diagnosis) 2. Exposure to confirmed case of COVID-19 - ICD9: V01.79, ICD10: Z20.822 - suspect viral URI, differential includes COVID-19. - Discussed supportive care treatment with home isolation, rest, cold medicine, and analgesia. - Red flags to seek further treatment include chest pain, shortness of breath, and lethargy; in the ER if severe. - COVID NAAT, ROUTINE Timothy Gallegos MD documented in this encounter [facility] 12-08-2022 Miscellaneous Notes December 10, 2022 PID: [id number] Salma Browning [address] [place] [address] Dear Ms. Browning, We are pleased to inform you that the results of your recent breast imaging exam on 12/08/2022 are normal. Early detection of cancer is very important. We also understand recommendations regarding breast cancer screening are controversial. Please discuss with your primary care provider which strategy is best for you and whether a mammogram is right for you. Your imaging studies and report will be kept on file at [facility] as part of your permanent medical record and are available for your continuing care. Thank you for allowing us to help in meeting your health care needs. Sincerely, Dr. Samuel Interpreting Radiologist [facility] (Normal over 40) documented in this encounter [facility] 12-08-2022 History of Present illness Narrative Radiology Service Progress Note PATIENT NAME: Salma Browning DATE OF SERVICE: December 08, 2022 TIME: 9:30 AM PATIENT IDENTITY VERIFICATION COMPLETED USING TWO (2) IDENTIFIERS: Name and Date of confirmed by patient verbally. FALL SCREENING: Has the patient had 2 falls in the last year or 1 fall with injury or currently using an Ambulatory Assistive Device (Walker, Cane, Wheelchair, Crutches, etc.)? No PATIENT GENDER DATA: Female. status: : No status: NO. PATIENT RELEVANT IMPLANT DATA REVIEWED: Not Applicable RADIOLOGY DEPARTMENT: Mammography PERIPHERAL IV DATA: Not applicable SIGNED BY: RT Ishmael(R) December 08, 2022 9:30 AM documented in this encounter [facility] 12-04-2022 History of Present illness Narrative Busboy offered: Patient declines. Tomlinson is a 47 year old who presents for an annual gynecologic exam without complaints. Menses: hysterectomy . Contraception: hysterectomy HPV vaccine: No Last Pap: 03/03/2016 normal HPV: 02/25/2016 negative History of abnormal pap: Yes ascus Last mammogram: 2015 normal Sexually active: Not currently History of STDS: HPV Patient concerns for STD exposure: No. Pain with intercourse: No Postcoital bleeding: No Hot flashes: yes Night sweats: Yes Vaginal dryness: No Exercise: active Diet: balanced OB History T1 L2 SAB0 IAB0 Ectopic0 Multiple0 Live Births2 Retail Attendant History LMP: LMP Unknown, Hysterectomy Age at Menarche: Age at First : Age at Menopause: Retail Attendant History Comments: Sexual Activity: Not Currently; Male Contraception: Condom PAST MEDICAL HISTORY Diagnosis Date Abnormal antibody titer On type and screen during #2. Repeat nl, no major antibodies, negative repeat antibody screen. ?False positive. Abnormal Pap smear of cervix Acute gastritis without mention of hemorrhage Atrophic gastritis 2010 CHOLELITHIASIS See also GALLBLADDER 08/26/2005 Congenital choledochal cyst Depression Depressive disorder, not elsewhere classified Diaphragmatic hernia without mention of obstruction or gangrene Esophagitis, unspecified Fatty tumor of liver 2005 FX LATERAL MALLEOLUS-CLOSE 09/03/2008 GERD (gastroesophageal reflux disease) 03/15/2012 On 3 meds in . ?hiatal hernia. 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 Dr Rivera Pre-eclampsia added to pre-existing hypertension 11/17/2014 Unspecified hemorrhoids without mention of complication Hemorrhoids PAST SURGICAL HISTORY Procedure Laterality Date CHOLECYSTECTOMY COLONOSCOPY FLX DX W/COLLJ SPEC WHEN PFRMD 05/09/2019 Colonoscopy EGD TRANSORAL BIOPSY SINGLE/MULTIPLE 09/22/10 ESOPHAGOGASTRODUODENOSCOPY TRANSORAL DIAGNOSTIC 05/09/2019 EGD HYSTERECTOMY HX 2017 [facility] PAST SURGICAL HISTORY OF Tumor removed from stomach, benign per pt PAST SURGICAL HISTORY OF 03/2009 left ankle fracture REM LESIO TRUNK,ARM,LEG 1.1 -2.0CM REMOVAL DEEP IMPLANT 12/06/09 Performed by KATHI POWELL at [facility] RPR DISLOC PERONEAL TENDON W/O FIBULAR OSTEOTOMY 12/06/09 Performed by KATHI POWELL at [facility] SIGMOIDOSCOPY FLX DX W/COLLJ SPEC BR/WA IF PFRMD 06/2004 Sigmoidoscopy, flexible SINUSOTOMY MAXILLARY ANTROTOMY INTRANASAL Byrd-Elliott sinusotomy TONSILLECTOMY PRIMARY/SECONDARY <AGE 12 Tonsillectomy VAGINOSCOPY FAMILY HISTORY Problem Relation Age of Onset Diabetes Mother other (colon polyps [Other]) Father no cancer found Heart Father Hypertension Father Ischemic Heart Disease Father Coronary Artery Disease Father COPD Father Thyroid Brother SOCIAL HISTORY Social History Tobacco Use Smoking status: Never Smokeless tobacco: Never Vaping Use Vaping Use: Never used Substance Use Topics Alcohol use: Yes Comment: rarely, 1-2 weekends per month 5 drinks (prior to ) Drug use: No REVIEW OF SYSTEMS Abdomen: No abdominal pain, nausea, vomiting, diarrhea, or constipation. No bloating, early satiety, indigestion, or increased flatulence. Bladder: No dysuria, gross hematuria, urinary frequency, urinary urgency, or incontinence. Breast: No breast lumps, nipple d/c, overlying skin changes, redness or skin retraction. Allergies and current medication updated:Yes EXAM: BP 130/78 Ht 5' 4.764 (1.65m) Wt 256 lb (116.1kg) BMI 42.91 kg/(m^2). GENERAL: pleasant, female in no apparent distress HEENT: Normocephalic, atraumatic, mucus membranes moist, and no lesions NECK: Supple, full range of motion, no adenopathy, and thyroid normal DERMATOLOGY: Normal, without lesions, non-icteric, and non-hirsute BREAST: soft, non-tender, symmetric, no dominant mass, normal nipple-areolar complex, no lymphadenopathy, and no nipple discharge ABDOMEN: soft, non-tender, and no masses PELVIC: external genitalia normal, normal Bartholin's glands, urethra, Ganado's glands, no vulvar lesions, good vaginal support, physiologic discharge present, normal appearing perineal body and perianal region, cervix surgically absent BIMANUAL: no adnexal masses, non-tender, and uterus surgically absent RECTOVAGINAL: deferred. NEURO: alert and oriented x3,exam grossly non-focal EXTREMITIES: normal ASSESSMENT/PLAN: 1) Health maintenance: Mammogram ordered. Nutrition, exercise and routine health maintenance exams reviewed. Calcium/Vitamin D supplementation information provided. 2) Contraception: hysterectomy. Contraceptive options reviewed and information provided. 3) STD screening: Accepted STD check for Gonorrhea and Chlamydia. 4) Follow up one year or sooner as needed Yuli Claudio MD documented in this encounter [facility] 12-02-2022 Instructions Mary Mcmillan APRN.HEARING AID DISPENSER - 12/02/2022 3:23 PM EDT Schedule appointments for bpm solution architect, women's health exam and mammogram. Continue with Motrin as needed for pain, may use flexeril at bed time to help with muscle tension. Continue supportive care at home, heat, ice, gentle stretching, massage therapy, and chiropractor. Work on eating a well balanced diet. Reduce processed foods or higher carb foods. Increase protein, veggies, and get some form of exercise. Cut back on pepsi. Recommend tracking foot, myfitnesspal phone karyna. Follow up in 1 year or sooner as needed. Health Promotion: - Eat healthy -- go to otelz.com.gov to get started - Have a yearly physical - Mammogram yearly after age 40 - Get at least 30 minutes of physical activity daily - Get at least 7 to 8 hours of sleep each night - Reach and maintain a healthy weight - Get help to quit or don't start smoking - Limit alcohol use to one drink or less - Do not use illegal drugs or misuse prescription drugs - Wear a helmet when riding a bike and wear protective gear for sports - Wear a seatbelt in cars and not text and drive - Wear sunscreen documented in this encounter [facility] 12-02-2022 History of Present illness Narrative This is a 47 year old female who presents today with: Patient presents with: Yearly Exam HISTORY OF PRESENT ILLNESS: Salma Browning is a 47 year old female. Patient presents with: Yearly Exam Here in the office for wellness exam. Diet: Working on trying to eat a well balanced. Trying to decrease pop in the diet. Would like to see a bpm solution architect. Exercise: Walking 1 mile three times weekly. Vision: Due for exam. Wearing Bifocals. Dental: Has dentures. Sleep: 3 hours per night. Refers that she has pain in the back of her head. GERD: Taking Prilosec 40 mg daily. Symptoms well controlled. Anxiety/depression: Taking Zoloft 100 mg, 2 tablets daily. Denies any increased sadness, anxiety, or SI/HI. HTN: Taking nifedipine XL 30 mg and atenolol 50 mg daily. Not currently checking blood pressure at home. Denies chest pain, palpitations, dizziness, or edema. Mammogram: Last mammogram 2015, due at this time. Colonoscopy: May 09 2019, history of bleeding hemorrhoids. Pap: Last Pap 2014, history of abnormals in the past. History of hysterectomy about 6 years ago. Vaccines: Denies wanting any vaccines. PAST MEDICAL HISTORY: PAST MEDICAL HISTORY Diagnosis Date Abnormal antibody titer On type and screen during #2. Repeat nl, no major antibodies, negative repeat antibody screen. ?False positive. Abnormal Pap smear of cervix Acute gastritis without mention of hemorrhage Atrophic gastritis 2010 CHOLELITHIASIS See also GALLBLADDER 08/26/2005 Congenital choledochal cyst Depression Depressive disorder, not elsewhere classified Diaphragmatic hernia without mention of obstruction or gangrene Esophagitis, unspecified Fatty tumor of liver 2005 FX LATERAL MALLEOLUS-CLOSE 09/03/2008 GERD (gastroesophageal reflux disease) 03/15/2012 On 3 meds in . ?hiatal hernia. 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 Dr Rivera Pre-eclampsia added to pre-existing hypertension 11/17/2014 Unspecified hemorrhoids without mention of complication Hemorrhoids PAST SURGICAL HISTORY Procedure Laterality Date CHOLECYSTECTOMY COLONOSCOPY FLX DX W/COLLJ SPEC WHEN PFRMD 05/09/2019 Colonoscopy EGD TRANSORAL BIOPSY SINGLE/MULTIPLE 09/22/10 ESOPHAGOGASTRODUODENOSCOPY TRANSORAL DIAGNOSTIC 05/09/2019 EGD HYSTERECTOMY HX 2017 [facility] PAST SURGICAL HISTORY OF Tumor removed from stomach, benign per pt PAST SURGICAL HISTORY OF 03/2009 left ankle fracture REM LESIO TRUNK,ARM,LEG 1.1 -2.0CM REMOVAL DEEP IMPLANT 12/06/09 Performed by KATHI POWELL at [facility] RPR DISLOC PERONEAL TENDON W/O FIBULAR OSTEOTOMY 12/06/09 Performed by KATHI POWELL at [facility] SIGMOIDOSCOPY FLX DX W/COLLJ SPEC BR/WA IF PFRMD 06/2004 Sigmoidoscopy, flexible SINUSOTOMY MAXILLARY ANTROTOMY INTRANASAL Byrd-Elliott sinusotomy TONSILLECTOMY PRIMARY/SECONDARY <AGE 12 Tonsillectomy VAGINOSCOPY ALLERGIES Bupropion MEDICATIONS Current Outpatient Medications Medication Sig omeprazole (PRILOSEC) 40 mg capsule Take 1 capsule by mouth twice daily. sertraline (ZOLOFT) 100 mg tablet Take 2 tablets by mouth once daily. NIFEdipine XL (ADALAT CC) 30 mg 24 hr tablet Take 1 tablet by mouth once daily. atenolol (TENORMIN) 50 mg tablet Take 1 tablet by mouth once daily. Cholecalciferol, Vitamin D3, (DIALYVITE VITAMIN D) 125 mcg (5,000 unit) cap Take 1 capsule by mouth once daily. tiZANidine HCl (ZANAFLEX) 4 mg capsule Take 4 mg by mouth daily at bedtime. etodolac (LODINE) 400 mg tablet Take 1 tablet by mouth twice daily. rizatriptan (MAXALT) 10 mg tablet Take 1 tablet by mouth as needed for migraine headache (see administration instructions). benzonatate (TESSALON PERLES) 100 mg capsule Take 2 capsules by mouth three times daily as needed. (Patient not taking: Reported on 07/30/2022) dextromethorphan-guaiFENesin (MUCINEX DM) 30-600 mg per tablet Take 1 tablet by mouth twice daily. (Patient not taking: Reported on 07/30/2022) MEDROL, SHAHIDA, 4 mg Dose-Pack Take on steroid pack as directed. (Patient not taking: Reported on 07/30/2022) albuterol HFA (PROVENTIL HFA, VENTOLIN HFA) 90 mcg/actuation inhaler Inhale 2 Puffs as instructed every 4 hours as needed. (Patient not taking: Reported on 12/10/2021) predniSONE (DELTASONE) 10 mg tablet Take 4 tabs daily for 3 days, then 2 tabs daily for 3 days, then 1 tab daily for 3 days with food. (Patient not taking: Reported on 11/11/2021) COMPOUNDED PRESCRIPTION Consult to Pain Management - Dr. Nolasco Dx: bilateral knee osteoarthritis; chronic pain (Patient not taking: Reported on 12/10/2021) No current facility-administered medications for this visit. FAMILY HISTORY Problem Relation Age of Onset Diabetes Mother other (colon polyps [Other]) Father no cancer found Heart Father Hypertension Father Ischemic Heart Disease Father Coronary Artery Disease Father COPD Father Thyroid Brother Social History Tobacco Use Smoking status: Never Smokeless tobacco: Never Vaping Use Vaping Use: Never used Substance Use Topics Alcohol use: Yes Comment: rarely, 1-2 weekends per month 5 drinks (prior to ) Drug use: No REVIEW OF SYSTEMS GENERAL: No weight loss, malaise or fevers/chills HEENT: + head pain NECK: Negative for lumps, goiter, pain and significant neck swelling RESPIRATORY: Negative for cough, hemoptysis, wheezing, dyspnea or shortness of breath CARDIOVASCULAR: Negative for chest pain, leg swelling, orthopnea, or palpitations GI: No nausea, vomiting, or diarrhea/constipation. No hematochezia/melena. No heartburn or reflux symptoms. : No history of dysuria, frequency or incontinence MUSCULOSKELETAL: Negative for joint pain or swelling. SKIN: Negative for lesions, rash, and itching ENDOCRINE: Negative for cold or heat intolerance, polyuria, polydipsia and goiter NEURO: No history of headaches, syncope, paralysis, seizures or tremors MOOD: Negative for depression, anxiety, or suicidal ideation. EXAM: BP 140/90 Pulse 67 Resp 16 Ht 162.3 cm (5' 3.9) Wt 118.4 kg (261 lb) LMP (LMP Unknown) SpO2 96% BMI 44.94 kg/m PHYSICAL EXAM: General Appearance: Well appearing, alert, in no acute distress, well-hydrated, well nourished. Skin: Skin color, texture, turgor normal, no suspicious rashes or lesions. Head: Normocephalic, no masses, lesions, tenderness or abnormalities. Eyes: Anicteric sclera. Pupils are equally round and reactive to light. Extraocular movements are intact. Ears: External ears normal, canals clear. TM's pearly trivedi. Neck: Supple, no adenopathy; thyroid symmetric, normal size, no bruits. Lungs: Lungs clear to auscultation. No wheezing, rhonchi, rales. Heart: RRR without murmur, gallop, or rubs. No ectopy. Abdomen: Normal abdominal exam, Abdomen soft, non-tender. Bowel sounds normal. No masses, organomegaly, Negative CVA tenderness. Extremities: No deformities, edema, skin discoloration, clubbing or cyanosis. Good capillary refill. Musculoskeletal: Moderate bilateral trapiezus muscle tension noted. No masses noted. Peripheral Pulses: Normal, Capillary refill <2secs, strong peripheral pulses, Pulses palpable. Neurologic: Gait normal. Reflexes normal and symmetric. Sensation grossly intact. ASSESSMENT/PLAN: 1. Wellness examination - ICD9: V70.0, ICD10: Z00.00 (primary diagnosis) - Counseled on healthy diet and regular exercise - Calcium intake with supplements or by diet of 1000 mg/day for under 50, 3260-7219 mg/day for 50+ - Discussed need and benefit for weight loss. BMI 44.94 kg/(m^2) - Mammogram ordered - exam recommended once yearly - Depression screening tool completed and reviewed with patient. Based on score and interview, patient is already diagnosed with depression and recommended continuing current plan of care. - Denied wanting any labs at this time. - Follow up for annual exam in one year 2. Gastroesophageal reflux disease, unspecified whether esophagitis present - ICD9: 530.81, ICD10: K21.9 - Stable, continue current medication. 3. Anxiety associated with depression - ICD9: 300.4, ICD10: F41.8 - Stable, continue current medication. 4. Hypertension, essential - ICD9: 401.9, ICD10: I10 - Controlled - Continue current medications - Recommend home blood pressure monitoring, to bring results to next visit - Encouraged sodium restriction, DASH or Mediterranean diet - Recommend regular aerobic exercise - Discussed need for and benefit of weight loss. BMI 44.94 kg/(m^2) 5. Migraine with aura, not intractable, without status migrainosus - ICD9: 346.00, ICD10: G43.109 - Stable, continue current medication. 6. Weight gain - ICD9: 783.1, ICD10: R63.5 - Schedule appointment with bpm solution architect. - Recommend eating a well-balanced diet, decrease processed foods and sugary drinks in the diet. Try to increase lean protein, vegetables, and get some form of exercise. - Recommend tracking food - CONSULT TO NUTRITION THERAPY 7. Muscle strain - ICD9: 848.9, ICD10: T14.8XXA - Continue with NSAIDs as needed, may use Flexeril as needed for muscle tension. - May apply ice, heat, gentle stretching, and massage therapy. - CYCLOBENZAPRINE 10 MG TABLET 8. Women's annual routine gynecological examination - ICD9: V72.31, ICD10: Z01.419 - CONSULT TO GYNECOLOGY Follow up in 1 year or sooner as needed. Discussed treatment plan and patient voices understanding. Patient's questions answered appropriately. Medications and potential side effects were discussed and patient voices understanding. Mary Mcmillan APRN.NORI This note was partially generated using [employer] voice recognition system. Note was reviewed for accuracy. There may be minor misspellings or grammar miscues with [employer] voice recognition. documented in this encounter [facility] 11-30-2022 Miscellaneous Notes OK to refill as ordered Susan Sevilla MD Patient phones requesting refills as follows: OVER DUE FOR YEARLY APPT. Message sent to pt. to call in. Requested Prescriptions Pending Prescriptions Disp Refills omeprazole (PRILOSEC) 40 mg capsule 60 capsule 0 Sig: Take 1 capsule by mouth twice daily. sertraline (ZOLOFT) 100 mg tablet 60 tablet 0 Sig: Take 2 tablets by mouth once daily. NIFEdipine XL (ADALAT CC) 30 mg 24 hr tablet 30 tablet 0 Sig: Take 1 tablet by mouth once daily. atenolol (TENORMIN) 50 mg tablet 30 tablet 0 Sig: Take 1 tablet by mouth once daily. Please review and advise. Rozina Santiago LPN TC to pt. LM to call office, ask for triage nurse to get a yearly appt schedules. Will send in 30 day of meds. Rozina Santiago LPN documented in this encounter [facility] 11-04-2022 History of Present illness Narrative Radiology Service Progress Note PATIENT NAME: Salma Browning DATE OF SERVICE: November 04, 2022 TIME: 8:43 AM PATIENT IDENTITY VERIFICATION COMPLETED USING TWO (2) IDENTIFIERS: Name and Date of confirmed by patient verbally. FALL SCREENING: Has the patient had 2 falls in the last year or 1 fall with injury or currently using an Ambulatory Assistive Device (Walker, Cane, Wheelchair, Crutches, etc.)? Yes, Patient High Risk for Falls What interventions were put in place to prevent falls during this visit? Offered Assistance with Transfers/Clothing, Instructed Patient to Remain Seated (Not on Exam Table) Until Exam, and Increased Observations by Caregivers PATIENT GENDER DATA: Female. status: : No status: NO. PATIENT RELEVANT IMPLANT DATA REVIEWED: Not Applicable RADIOLOGY DEPARTMENT: General X-ray: Exam(s) Completed: Lower Extremity X-Ray(s): Foot, Left and Wt. Bearing PERIPHERAL IV DATA: Not applicable SIGNED BY: RT Brent(R) November 04, 2022 8:43 AM documented in this encounter [facility] 10-19-2022 History of Present illness Narrative Radiology Service Progress Note PATIENT NAME: Salma Browning DATE OF SERVICE: October 19, 2022 TIME: 1:51 PM PATIENT IDENTITY VERIFICATION COMPLETED USING TWO (2) IDENTIFIERS: Name and Date of confirmed by patient verbally. FALL SCREENING: Has the patient had 2 falls in the last year or 1 fall with injury or currently using an Ambulatory Assistive Device (Walker, Cane, Wheelchair, Crutches, etc.)? No PATIENT GENDER DATA: Female. status: : No status: NO. PATIENT RELEVANT IMPLANT DATA REVIEWED: Yes RADIOLOGY DEPARTMENT: CT; Exam(s) Completed: LT FOOT W/O PERIPHERAL IV DATA: Not applicable SIGNED BY: RT Hannah(R) October 19, 2022 1:51 PM documented in this encounter [facility] 10-19-2022 History of Present illness Narrative Ray Frazier MD Department of Orthopaedics Orthopaedics [address] [address] Dept: [phone] Dept October 19, 2022 CHIEF COMPLAINT: New and Pain of the Left Knee and New and Pain of the Left Hip HPI Patient here today for left hip and knee pain x 6 months. She has cut her hours back at work due to her pain. She works at [employer] thru. She is a left side sleeper and is not able to lay on that side so she has resorted to sleeping on her couch. She has 6 steps into her apartment and has to use the hand rail to pull herself up the steps. [facility] today at [facility] of both areas. ASSESSMENT: M70.62 Trochanteric bursitis of left hip (primary encounter diagnosis) PLAN: Her history and symptoms seem to be related to some tendinitis. I recommend an anti-inflammatory and some physical therapy with modalities. FOLLOW UP INSTRUCTIONS: She can follow-up with nonoperative for a cortisone injection if symptoms persist. Ms. Salma Browning was advised as to contrast therapies and/or to take analgesics/anti-inflammatories as needed and all contraindications were reviewed. OBJECTIVE: Ms. Salma Browning is a pleasant 47 year old in no apparent distress. Gen:There were no vitals taken for this visit. nl development, obese, no deformities ENT: Normocephalic, normal hearing, moist mucosa CV: Pulses:DP/PT= 2+ and symmetric, capillary refill < 2 secs, no peripheral edema/varicosities Skin: no rash, bruising or lesions. Good turgor. Psych: cooperative and appropriate, alert and oriented x 3, good mood and affect. Musculoskeletal: Walking with a bit of antalgia to the affected side. Tenderness to palpation over the greater trochanter and short external rotators. Pain with resisted abduction. No pain with flexion and internal rotation. IMAGING: IMPRESSION: No acute osseous findings left hip. Left hip joint is maintained. Power Engineer: SANDHYA Transcribe Date/Time: Oct 21 2022 7:07A Dictated by : LIZETTE OWENS MD This examination was interpreted and the report reviewed and electronically signed by: LIZETTE OWENS MD on Oct 21 2022 7:07AM EST Results-Findings * * *Final Report* * * DATE OF EXAM: Oct 19 2022 11:07AM [id number] - XR HIP 3V PELV+ AP/LAT LT / PROCEDURE REASON: Pain in left hip * * * * Physician Interpretation * * * * EXAMINATION: XR HIP 3V PELV+ AP/LAT LT CLINICAL HISTORY: Left anterior knee pain and left lateral hip pain x several years without injury. Pain increased over time. Pain in left hip Technique: XR HIP 3V PELV+ AP/LAT LT -- LEFT with 3 views on 3 images Comparison: None RESULT: No fracture or dislocation. No significant osteophytosis. Joint spaces are maintained. No erosions or chondrocalcinosis. SI joints and pubic symphysis are intact. Degenerative changes in the lower lumbar spine. Supporting Subjective Information Below: Past Medical History: PAST MEDICAL HISTORY Diagnosis Date Abnormal antibody titer On type and screen during #2. Repeat nl, no major antibodies, negative repeat antibody screen. ?False positive. Abnormal Pap smear of cervix Acute gastritis without mention of hemorrhage Atrophic gastritis 2010 CHOLELITHIASIS See also GALLBLADDER 08/26/2005 Congenital choledochal cyst Depression Depressive disorder, not elsewhere classified Diaphragmatic hernia without mention of obstruction or gangrene Esophagitis, unspecified Fatty tumor of liver 2005 FX LATERAL MALLEOLUS-CLOSE 09/03/2008 GERD (gastroesophageal reflux disease) 03/15/2012 On 3 meds in . ?hiatal hernia. 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 Dr Rivera Pre-eclampsia added to pre-existing hypertension 11/17/2014 Unspecified hemorrhoids without mention of complication Hemorrhoids Past Surgical History: PAST SURGICAL HISTORY Procedure Laterality Date CHOLECYSTECTOMY COLONOSCOPY FLX DX W/COLLJ SPEC WHEN PFRMD 05/09/2019 Colonoscopy EGD TRANSORAL BIOPSY SINGLE/MULTIPLE 09/22/10 ESOPHAGOGASTRODUODENOSCOPY TRANSORAL DIAGNOSTIC 05/09/2019 EGD HYSTERECTOMY HX 2017 [facility] PAST SURGICAL HISTORY OF Tumor removed from stomach, benign per pt PAST SURGICAL HISTORY OF 03/2009 left ankle fracture REM LESIO TRUNK,ARM,LEG 1.1 -2.0CM REMOVAL DEEP IMPLANT 12/06/09 Performed by KATHI POWELL at [facility] RPR DISLOC PERONEAL TENDON W/O FIBULAR OSTEOTOMY 12/06/09 Performed by KATHI POWELL at [facility] SIGMOIDOSCOPY FLX DX W/COLLJ SPEC BR/WA IF PFRMD 06/2004 Sigmoidoscopy, flexible SINUSOTOMY MAXILLARY ANTROTOMY INTRANASAL Byrd-Elliott sinusotomy TONSILLECTOMY PRIMARY/SECONDARY <AGE 12 Tonsillectomy VAGINOSCOPY Family History: FAMILY HISTORY Problem Relation Age of Onset Diabetes Mother other (colon polyps [Other]) Father no cancer found Heart Father Hypertension Father Ischemic Heart Disease Father Coronary Artery Disease Father COPD Father Thyroid Brother Social History: Social History Tobacco Use Smoking status: Never Smokeless tobacco: Never Vaping Use Vaping Use: Never used Substance Use Topics Alcohol use: Yes Comment: rarely, 1-2 weekends per month 5 drinks (prior to ) Drug use: No Medications: Current Outpatient Medications Medication Sig tiZANidine HCl (ZANAFLEX) 4 mg capsule Take 4 mg by mouth daily at bedtime. rizatriptan (MAXALT) 10 mg tablet Take 1 tablet by mouth as needed for migraine headache (see administration instructions). omeprazole (PRILOSEC) 40 mg capsule Take 1 capsule by mouth twice daily. sertraline (ZOLOFT) 100 mg tablet Take 2 tablets by mouth once daily. NIFEdipine XL (ADALAT CC) 30 mg 24 hr tablet Take 1 tablet by mouth once daily. atenolol (TENORMIN) 50 mg tablet Take 1 tablet by mouth once daily. benzonatate (TESSALON PERLES) 100 mg capsule Take 2 capsules by mouth three times daily as needed. (Patient not taking: Reported on 07/30/2022) dextromethorphan-guaiFENesin (MUCINEX DM) 30-600 mg per tablet Take 1 tablet by mouth twice daily. (Patient not taking: Reported on 07/30/2022) MEDROL, SHAHIDA, 4 mg Dose-Pack Take on steroid pack as directed. (Patient not taking: Reported on 07/30/2022) albuterol HFA (PROVENTIL HFA, VENTOLIN HFA) 90 mcg/actuation inhaler Inhale 2 Puffs as instructed every 4 hours as needed. (Patient not taking: No sig reported) predniSONE (DELTASONE) 10 mg tablet Take 4 tabs daily for 3 days, then 2 tabs daily for 3 days, then 1 tab daily for 3 days with food. (Patient not taking: No sig reported) nabumetone (RELAFEN) 750 mg tablet (Patient not taking: Reported on 10/19/2022) COMPOUNDED PRESCRIPTION Consult to Pain Management - Dr. Nolasco Dx: bilateral knee osteoarthritis; chronic pain (Patient not taking: No sig reported) No current facility-administered medications for this visit. Allergies: Bupropion ROS: General (negative for fatigue, malaise, weight loss/gain) HEENT (negative for headache, earache, recent vision changes, sinus pain, sore throat) Respiratory (no recent shortness of breath, hemoptysis) CV (negative for chest tightness, palpitations) Musculoskeletal (see HPI) Psych (no depression, anxiety) Ray Frazier MD documented in this encounter [facility] 10-19-2022 History of Present illness Narrative Radiology Service Progress Note PATIENT NAME: Salma Browning DATE OF SERVICE: October 19, 2022 TIME: 10:46 AM PATIENT IDENTITY VERIFICATION COMPLETED USING TWO (2) IDENTIFIERS: Name and Date of confirmed by patient verbally. FALL SCREENING: Has the patient had 2 falls in the last year or 1 fall with injury or currently using an Ambulatory Assistive Device (Walker, Cane, Wheelchair, Crutches, etc.)? No PATIENT GENDER DATA: Female. status: : No status: NO. PATIENT RELEVANT IMPLANT DATA REVIEWED: Yes RADIOLOGY DEPARTMENT: General X-ray: Exam(s) Completed: Pelvis X-Ray: Pelvis with Hip Left Lower Extremity X-Ray(s): Knee, AP / Lat / Tunne / Merchant Left and Wt. Bearing PERIPHERAL IV DATA: Not applicable SIGNED BY: RT Alber(R) October 19, 2022 10:46 AM documented in this encounter [facility] 10-08-2022 Miscellaneous Notes Patient notified via mychart Ct scan ordered for left foot documented in this encounter [facility] 09-14-2022 History of Present illness Narrative Radiology Service Progress Note PATIENT NAME: Salma Browning DATE OF SERVICE: September 15, 2022 TIME: 11:01 AM PATIENT IDENTITY VERIFICATION COMPLETED USING TWO (2) IDENTIFIERS: Name and Date of confirmed by patient verbally. FALL SCREENING: Has the patient had 2 falls in the last year or 1 fall with injury or currently using an Ambulatory Assistive Device (Walker, Cane, Wheelchair, Crutches, etc.)? No PATIENT GENDER DATA: Female. status: : No status: NO. PATIENT RELEVANT IMPLANT DATA REVIEWED: Not Applicable RADIOLOGY DEPARTMENT: General X-ray: Exam(s) Completed: Lower Extremity X-Ray(s): Foot, Left and Wt. Bearing PERIPHERAL IV DATA: Not applicable SIGNED BY: RT Brent(R) September 15, 2022 11:01 AM documented in this encounter [facility] 08-14-2022 Miscellaneous Notes Returned patients call regarding sooner appointment. Informed patient that unfortunately at this time we do not have a sooner appointment. Patient was placed on wait list. Advised patient to present to express care if pain worse for evaluation. Patient verbalized understanding. Smiley Myrick LPN Patient called, verified name and date of regarding needing an sooner appointment. Patient stated she had a fracture in foot last year that she seen for. Patient is now experiencing pain in the same foot, lump on top of foot. Patient stated she works on her feet all day, needs to get in sooner than 6-12-23. Patient would like a call back and be advised rather or not she can get in sooner. Please advise patient at [phone] Dejah Lagunas LPN documented in this encounter [facility] 07-31-2022 Instructions Mary Mcmillan APRN.HEARING AID DISPENSER - 07/31/2022 9:33 AM EDT Images from the original note were not included. Increase fiber and water in the diet. May use Miralax 1-2 times per day as needed for constipation. May start fiber tablet, once per day. Try to stay active. Follow up in 1 month if needed. Refill sent for migraine medication. Improving Your Health with Fiber This guide provides basic information to help you start increasing dietary fiber in your diet. These are general guidelines that may be tailored to meet your needs. Fiber is an important dietary substance to help support your health. Making changes in your current eating habits will help you eat more healthfully. Most fiber-containing foods are also good sources of vitamins, minerals, and antioxidants, which offer many health benefits. A registered dietitian can provide in-depth nutrition education to help you develop a personal action plan. What is fiber? Fiber is the structural part of plant foods--such as fruits, vegetables, and grains--that our bodies cannot digest or break down. There are two kinds of fiber: soluble and insoluble. Soluble fiber: dissolves in water to form a gummy gel. It can slow down the passage of food from the stomach to the intestine. Examples: dried beans, oats, barley, banana, potatoes, and soft parts of apples and pears Insoluble fiber: often referred to as roughage because it does not dissolve in water. It holds onto water, which helps produce softer, bulkier stools to help regulate bowel movements. Examples: whole bran, whole grain products, nuts, corn, carrots, grapes, berries, and peels of apples and pears What other things does fiber do? Research has shown that a diet rich in fiber is associated with many health benefits, including the followin. Lowers cholesterol--Soluble fiber has been shown to lower cholesterol by binding to bile (composed of cholesterol) and taking it out of the body. This may help reduce the risk of heart disease. 2. Better regulates blood sugar levels--A high-fiber meal slows down the digestion of food into the intestines, which may help to keep blood sugars from rising rapidly. 3. Weight control--A high-fiber diet may help keep you mccormack longer, which prevents overeating and hunger between meals. 4. May prevent intestinal cancer--Insoluble fiber increases the bulk and speed of food moving through the intestinal tract, which reduces time for harmful substances to build up. 5. Constipation--Constipation can often be relieved by increasing the fiber or roughage in your diet. Fiber works to help regulate bowel movements by pulling water into the colon to produce softer, bulkier stools. This action helps to promote better regularity. How much fiber should I eat? The recommendation is to consume about 20-35 grams of total fiber per day, with 10-15 grams from soluble fiber. This can be accomplished by choosing 6 ounces of grains (3 or more ounces from whole grains), 2 cups of vegetables, and 2 cups of fruit per day (based on a 2,000 calorie/day pattern). Note: Eating a high-fiber diet may interfere with the absorption and effectiveness of some medications. Speak to your doctor about which medications to take with caution and when to take them. Fiber also binds with certain nutrients and carries them out of the body. To avoid this, aim for the recommended 20-35 grams of fiber per day. Some studies indicate that up to 50 grams of dietary fiber may help control blood sugars for people with diabetes. When eating a high-fiber diet, be sure to drink at least eight glasses of fluid each day. Tips for increasing dietary fiber in your diet: Add fiber to your diet slowly. Too much fiber all at once may cause cramping, bloating, and constipation. When adding fiber to your diet, be sure to increase fluids (at least 64 ounces per day) to prevent constipation. Buy bread with 2-4 grams of dietary fiber per slice. Buy cereals with at least 5 grams of dietary fiber per serving. Choose cereals with a whole grain such as whole wheat or whole grain rolled oats. Choose raw fruits and vegetables in place of juice. Choose products that have a whole grain listed as the first ingredient, not enriched flour. Whole wheat flour is a whole grain--wheat flour is not. Try alternative fiber choices such as whole buckwheat, whole wheat couscous, quinoa, and bulgur. Popcorn is a whole grain. Serve it low-fat without butter for a healthier snack choice. Try whole wheat bread and whole wheat pastas. Sprinkle bran in soups, cereals, baked products, spaghetti sauce, ground meat, and casseroles. Bran also mixes well with orange juice. Use dried peas, beans, and legumes in main dishes, salads, or side dishes such as rice or pasta. Eat the skins of raw fruits and vegetables. Add dried fruit to yogurt, cereal, rice, and muffins. Try brown rice and whole grain pastas. Choose crackers with a whole grain listed as the first ingredient. Look for whole grain rye and wheat crackers. How to read a food label Food labels are standardized by the [place] government's National Labeling and Education Act (NLEA). Nutrition labels and an ingredient list are required on most foods, so that you can make the best selection for a healthy lifestyle. Review the food label. Determine the total amount of fiber in this product or ask your dietitian or health care provider to show you how to read food labels and apply the information to your personal needs. In order for a product to be labeled high fiber, it must contain 5 grams or more of dietary fiber per serving. Fiber supplements Fiber supplements may be an option if you are not able to get enough fiber from your diet. Fiber supplements can be used to normalize both constipation and diarrhea. Check with your doctor before starting any kind of supplement. Read labels for fiber carefully. Drink at least 8 ounces of liquids with your supplement. Taking some fiber supplements without adequate liquids may cause the fiber to swell and may cause choking. Some fiber supplements to consider are Benefiber (hydrolyzed guar gum-soluble fiber), Metamucil (psyllium), Konsyl (psyllium), Citrucel (methylcellulose), Fibercon (calcium polycarbophil), and Fiberall (multiple sources of fiber). Psyllium husk and guar gum are soluble fibers. Consider keeping a food journal and tracking how much fiber you eat in a typical day. Use the fiber content chart in this handout as a guide to meeting your high fiber goal or check with www.NAL.usda.gov/fnic for additional information on the dietary fiber content of food. Food Category Food Serving Size Total Fiber (grams) Soluble Fiber (grams) Starches, Grains, Starchy vegetables Breads: Bagel-whole wheat Light white/wheat Mahnaz-Whole wheat Pumpernickel Whole wheat Lebeau 3 1/2 inches 2 slices 7 inches slice slice slice 3 1 4 3 2 2 1 trace 1 1 trace 1 Cereals: Bran Flakes Cheerios Oatmeal Fiber One All Bran Kashi Heart to Heart 3/4 cup 1 1/4 cup 1 cup cooked 1/2 cup 2/3 cup 3/4 cup 5 4 4 14 13 5 trace 1 2 1 1 1 Grains: Barley Brown rice Pasta-whole wheat 1/2 cup cooked 1/2 cup 1/2 cup cooked 4 2 3 1 trace 1 Legumes and starchy vegetables: Garbanzo beans Kidney beans Lentils Potato (with skin) Potatoes, sweet Squash (winter) Green peas, cooked Ulloa beans Langel[place], cooked 1/2 cup 1/2 cup 1/2 cup 1 medium 1/2 cup 1/2 cup 1/2 cup 1/2 cup 1/2 cup 4 6 5 3 4 3 4 7 2 1 3 1 1 2 2 1 3 trace Nuts and Seeds Almonds Peanuts Baltic seeds Walnuts 1/4 cup 1/4 cup 1/4 cup 1/4 cup 3 3 3 2 1 1 1 trace Fruits Apple with skin Banana Blueberries Grapefruit Upper Tract Pear with skin Prunes Strawberries 1 medium 1 medium 1 cup 1/2 cup 1 medium 1 medium 3 1 cup 3 2 2 1 3 4 2 4 1 1 trace 1 2 2 1 1 Vegetables, non-starchy Broccoli [place] sprouts Cabbage-green Carrot Cauliflower Green beans Kale Spinach Squash (zucchini) 1/2 cup 1/2 cup 1 cup, fresh 1/2 cup cooked 1/2 cup cooked 1/2 cup 1/2 cup 1/2 cup 1/2 cup 3 4 2 2 1 2 3 2 1 1 2 1 1 trace 1 1 1 1 Copyright [id number] The [facility]. All rights reserved. This information is provided by the [facility] and is not intended to replace the medical advice of your doctor or health care provider. Please consult your health care provider for advice about a specific medical condition. For additional health information, please contact the Center for Consumer Health Information at the [facility] or toll-free extension [phone]. If you prefer, you may visit [email or web address] or [email or web address]. This document was last reviewed on: 2009 index#[id number] documented in this encounter [facility] 07-31-2022 History of Present illness Narrative This is a 47 year old female who presents today with: Patient presents with: Follow Up: UC follow up HISTORY OF PRESENT ILLNESS: Salma Browning is a 47 year old female. Patient presents with: Follow Up: UC follow up Here in the office for express care follow-up. Was seen in express care yesterday for diarrhea and dizziness. CBC, CMP, and amylase were normal. Stool testing needs completed. Abdominal pain is intermittent, seems to be lower abdomen and LUQ. Having 1 BM weekly, last BM 2 days ago. Does not like to drink water. Will have nausea throughout the day. No fever or chills. Decrease appetite, eating once per day. PAST MEDICAL HISTORY: PAST MEDICAL HISTORY Diagnosis Date Abnormal antibody titer On type and screen during #2. Repeat nl, no major antibodies, negative repeat antibody screen. ?False positive. Abnormal Pap smear of cervix Acute gastritis without mention of hemorrhage Atrophic gastritis 2010 CHOLELITHIASIS See also GALLBLADDER 08/26/2005 Congenital choledochal cyst Depression Depressive disorder, not elsewhere classified Diaphragmatic hernia without mention of obstruction or gangrene Esophagitis, unspecified Fatty tumor of liver 2005 FX LATERAL MALLEOLUS-CLOSE 09/03/2008 GERD (gastroesophageal reflux disease) 03/15/2012 On 3 meds in . ?hiatal hernia. 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 Dr Rivera Pre-eclampsia added to pre-existing hypertension 11/17/2014 Unspecified hemorrhoids without mention of complication Hemorrhoids PAST SURGICAL HISTORY Procedure Laterality Date CHOLECYSTECTOMY COLONOSCOPY FLX DX W/COLLJ SPEC WHEN PFRMD 05/09/2019 Colonoscopy EGD TRANSORAL BIOPSY SINGLE/MULTIPLE 09/22/10 ESOPHAGOGASTRODUODENOSCOPY TRANSORAL DIAGNOSTIC 05/09/2019 EGD HYSTERECTOMY HX 2017 [facility] PAST SURGICAL HISTORY OF Tumor removed from stomach, benign per pt PAST SURGICAL HISTORY OF 03/2009 left ankle fracture REM LESIO TRUNK,ARM,LEG 1.1 -2.0CM REMOVAL DEEP IMPLANT 12/06/09 Performed by KATHI POWELL at [facility] RPR DISLOC PERONEAL TENDON W/O FIBULAR OSTEOTOMY 12/06/09 Performed by KATHI POWELL at [facility] SIGMOIDOSCOPY FLX DX W/COLLJ SPEC BR/WA IF PFRMD 06/2004 Sigmoidoscopy, flexible SINUSOTOMY MAXILLARY ANTROTOMY INTRANASAL Byrd-Elliott sinusotomy TONSILLECTOMY PRIMARY/SECONDARY <AGE 12 Tonsillectomy VAGINOSCOPY ALLERGIES Bupropion MEDICATIONS Current Outpatient Medications Medication Sig omeprazole (PRILOSEC) 40 mg capsule Take 1 capsule by mouth twice daily. sertraline (ZOLOFT) 100 mg tablet Take 2 tablets by mouth once daily. NIFEdipine XL (ADALAT CC) 30 mg 24 hr tablet Take 1 tablet by mouth once daily. atenolol (TENORMIN) 50 mg tablet Take 1 tablet by mouth once daily. benzonatate (TESSALON PERLES) 100 mg capsule Take 2 capsules by mouth three times daily as needed. (Patient not taking: Reported on 07/30/2022) dextromethorphan-guaiFENesin (MUCINEX DM) 30-600 mg per tablet Take 1 tablet by mouth twice daily. (Patient not taking: Reported on 07/30/2022) rizatriptan (MAXALT) 10 mg tablet Take 1 tablet by mouth as needed for migraine headache (see administration instructions). MEDROL, SHAHIDA, 4 mg Dose-Pack Take on steroid pack as directed. (Patient not taking: Reported on 07/30/2022) topiramate (TOPAMAX) 50 mg tablet Take 1 tablet by mouth twice daily. albuterol HFA (PROVENTIL HFA, VENTOLIN HFA) 90 mcg/actuation inhaler Inhale 2 Puffs as instructed every 4 hours as needed. (Patient not taking: No sig reported) predniSONE (DELTASONE) 10 mg tablet Take 4 tabs daily for 3 days, then 2 tabs daily for 3 days, then 1 tab daily for 3 days with food. (Patient not taking: No sig reported) nabumetone (RELAFEN) 750 mg tablet COMPOUNDED PRESCRIPTION Consult to Pain Management - Dr. Nolasco Dx: bilateral knee osteoarthritis; chronic pain (Patient not taking: No sig reported) No current facility-administered medications for this visit. FAMILY HISTORY Problem Relation Age of Onset Diabetes Mother other (colon polyps [Other]) Father no cancer found Heart Father Hypertension Father Ischemic Heart Disease Father Coronary Artery Disease Father COPD Father Thyroid Brother Social History Tobacco Use Smoking status: Never Smokeless tobacco: Never Substance Use Topics Alcohol use: Yes Comment: rarely, 1-2 weekends per month 5 drinks (prior to ) Drug use: No REVIEW OF SYSTEMS GENERAL: No weight loss, malaise or fevers/chills HEENT: Negative for frequent or significant headaches, No changes in hearing or vision. NECK: Negative for lumps, goiter, pain and significant neck swelling RESPIRATORY: Negative for cough, hemoptysis, wheezing, dyspnea or shortness of breath CARDIOVASCULAR: Negative for chest pain, leg swelling, orthopnea, or palpitations GI: + Abdominal pain, nausea, constipation, diarrhea : No history of dysuria, frequency or incontinence MUSCULOSKELETAL: Negative for joint pain or swelling. SKIN: Negative for lesions, rash, and itching ENDOCRINE: Negative for cold or heat intolerance, polyuria, polydipsia and goiter NEURO: No history of headaches, syncope, paralysis, seizures or tremors MOOD: Negative for depression, anxiety, or suicidal ideation. EXAM: BP 140/90 Pulse 70 Resp 16 Wt 112.9 kg (249 lb) LMP (LMP Unknown) SpO2 97% BMI 42.74 kg/m PHYSICAL EXAM: General Appearance: Well appearing, alert, in no acute distress, well-hydrated, well nourished. Skin: Skin color, texture, turgor normal, no suspicious rashes or lesions. Head: Normocephalic, no masses, lesions, tenderness or abnormalities. Eyes: Anicteric sclera. Extraocular movements are intact. Lungs: Lungs clear to auscultation. No wheezing, rhonchi, rales. Heart: RRR without murmur, gallop, or rubs. No ectopy. Abdomen: Normal abdominal exam, Abdomen soft, non-tender. Bowel sounds normal. No masses, organomegaly, Negative CVA tenderness. Extremities: No deformities, edema, skin discoloration, clubbing or cyanosis. Good capillary refill. Peripheral Pulses: Normal, Capillary refill <2secs, strong peripheral pulses, Pulses palpable. Neurologic: Gait normal. Sensation grossly intact. Component Latest Ref Rng & Units 07/30/2022 WBC 3.70 - 11.00 k/uL 4.28 RBC 3.90 - 5.20 m/uL 4.83 Hemoglobin 11.5 - 15.5 g/dL 13.7 Hematocrit 36.0 - 46.0 % 42.1 MCV 80.0 - 100.0 fL 87.2 MCH 26.0 - 34.0 pg 28.4 MCHC 30.5 - 36.0 g/dL 32.5 RDW-CV 11.5 - 15.0 % 13.0 Platelet Count 150 - 400 k/uL 187 MPV 9.0 - 12.7 fL 10.5 Neut% % 54.7 Abs Neut (ANC) 1.45 - 7.50 k/uL 2.34 Lymph% % 38.3 Abs Lymph 1.00 - 4.00 k/uL 1.64 [place]% % 6.3 Abs [place] <0.87 k/uL 0.27 Eosin% % 0.0 Abs Eosin <0.46 k/uL <0.03 Baso% % 0.5 Abs Baso <0.11 k/uL <0.03 Immature Gran % % 0.2 IMMATURE GRANS (ABS) <0.10 k/uL <0.03 NRBC /100 WBC 0.0 Absolute nRBC <0.01 k/uL <0.01 DTYPE Auto Protein, Total 6.3 - 8.0 g/dL 7.2 Albumin 3.9 - 4.9 g/dL 4.5 Calcium 8.5 - 10.2 mg/dL 9.1 Bilirubin, Total 0.2 - 1.3 mg/dL 0.5 Alkaline Phosphatase 34 - 123 U/L 62 AST 13 - 35 U/L 14 ALT 7 - 38 U/L 6 (L) Glucose 74 - 99 mg/dL 95 BUN 7 - 21 mg/dL 9 Creatinine 0.58 - 0.96 mg/dL 0.87 Sodium 136 - 144 mmol/L 140 Potassium 3.7 - 5.1 mmol/L 4.7 Chloride 97 - 105 mmol/L 105 CO2 22 - 30 mmol/L 25 Anion Gap 9 - 18 mmol/L 10 eGFR >=60 mL/min/1.73m 82 Amylase 30 - 104 U/L 43 ASSESSMENT/PLAN: 1. Acute constipation - ICD9: 564.00, ICD10: K59.00 (primary diagnosis) - Based off history and exam, symptoms consistent with constipation. - Recommend increasing fiber and water in the diet. Discussed in great detail. - May use MiraLAX 1-2 times per day as needed as well as fiber tablet 500 mg once daily. - POLYETHYLENE GLYCOL 3350 17 GRAM/DOSE ORAL POWDER - FIBER THERAPY (METHYLCELLULOSE) 500 MG TABLET 2. Generalized abdominal pain - ICD9: 789.07, ICD10: R10.84 - Same plan as #1. 3. Migraine with aura, not intractable, without status migrainosus - ICD9: 346.00, ICD10: G43.109 - Refill provided. - RIZATRIPTAN 10 MG TABLET Follow-up in 1 month or sooner if symptoms do not improve. Discussed treatment plan and patient voices understanding. Patient's questions answered appropriately. Medications and potential side effects were discussed and patient voices understanding. Mary Mcmillan APRN.CNP This note was partially generated using [employer] voice recognition system. Note was reviewed for accuracy. There may be minor misspellings or grammar miscues with [employer] voice recognition. documented in this encounter [facility] 07-30-2022 Instructions Janki Hinds APRN.CNP - 07/30/2022 10:20 AM EDT Will check labs and stool cultures Follow up tomorrow for additional imaging studies to be ordered To ER for worsening symptoms, increased pain, fevers, vomiting, decreased urine output, blood in her urine blood in her stools or dark tarry stools. documented in this encounter [facility] 07-30-2022 History of Present illness Narrative Subjective The history is provided by the patient. No language assistant was used. HPI Salma Browning is a 47 year old nausea, headache, dizziness, diarrhea for 1.5 weeks. She also states she feels fatigued. Mild generalized abdominal pain. She has not used any medication or treatment. States 1-3 episodes daily of watery diarrhea, no blood. Denies any recent antibiotic use, medication change, travel outside of the country or exposure to farm or zoo animals. BP 124/92 Pulse 73 Temp 36.2 C (97.1 F) Resp 18 Wt 112.4 kg (247 lb 12.8 oz) LMP (LMP Unknown) SpO2 99% BMI 42.53 kg/m Social History Tobacco Use Smoking status: Never Smokeless tobacco: Never Substance Use Topics Alcohol use: Yes Comment: rarely, 1-2 weekends per month 5 drinks (prior to ) Drug use: No PAST MEDICAL HISTORY Diagnosis Date Abnormal antibody titer On type and screen during #2. Repeat nl, no major antibodies, negative repeat antibody screen. ?False positive. Abnormal Pap smear of cervix Acute gastritis without mention of hemorrhage Atrophic gastritis 2010 CHOLELITHIASIS See also GALLBLADDER 08/26/2005 Congenital choledochal cyst Depression Depressive disorder, not elsewhere classified Diaphragmatic hernia without mention of obstruction or gangrene Esophagitis, unspecified Fatty tumor of liver 2005 FX LATERAL MALLEOLUS-CLOSE 09/03/2008 GERD (gastroesophageal reflux disease) 03/15/2012 On 3 meds in . ?hiatal hernia. 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 Gastrointestinal: Positive for abdominal pain, diarrhea and nausea. Negative for vomiting. Genitourinary: Negative for dysuria, flank pain, frequency, hematuria and urgency. Neurological: Positive for dizziness. Objective Physical Exam Vitals and nursing note reviewed. Constitutional: Appearance: Normal appearance. Abdominal: General: Bowel sounds are normal. There is no abdominal bruit. Palpations: Abdomen is not rigid. There is no mass or pulsatile mass. Tenderness: There is generalized abdominal tenderness (mild). There is no guarding or rebound. Negative signs include Cunningham's sign and McBurney's sign. Neurological: Mental Status: She is alert and oriented to person, place, and time. Psychiatric: Mood and Affect: Affect normal. Exam benign, non toxic appearing ASSESSMENT/PLAN: 1. Diarrhea, unspecified type - ICD9: 787.91, ICD10: R19.7 (primary diagnosis) Will check labs, set up follow upwith PCP tomorrow When to seek higher level of care discussed - COMP METABOLIC PANEL - CBC + DIFF - AMYLASE BLD - C. DIFFICILE PCR - ENTERIC BACTERIAL PANEL BY PCR - OVA + PARA MICROSCOPIC 2. Abdominal pain, generalized - ICD9: 789.07, ICD10: R10.84 Will check labs, set up follow upwith PCP tomorrow When to seek higher level of care discussed - COMP METABOLIC PANEL - CBC + DIFF - AMYLASE BLD Diagnosis and treatment plan were discussed and questions were answered to the patient's satisfaction. Pt acknowledged understanding of concepts and follow up plan. Specific signs and symptoms that would indicate the need for higher level of care were discussed in detail warranting prompt ER evaluation. Janki Hinds APRN.CNP documented in this encounter [facility] 06-09-2022 History and physi hemant note Note Date/Time June 08, 2022 4:44pm [facility] Medical Records Department [address] [place] [address] History & Physical Exam 06/08/22 1641 MR#: [id number] Acct: [id number] Name: SALMA BROWNING Rep #:[id number] : 1975 47 From: Nani Underwood PCP: Dr. Susan Sevilla MD Status:[facility] Location: [place] [address] History and Physical Date of Admission: 06/09/22 HISTORY OF PRESENT ILLNESS 47 year old woman presents with a MRSA scar contour deformity left chin that shesustained 2 years ago.? She developed a MRSA abscess that required surgery on 05/01/20 where she underwent surgical preparation left chin with incision and drainage and excisional debridement abscess involving underlying muscle (7.5 cm2) and surgical preparation upper anterior neck with incision and drainage andexcisional debridement abscess involving underlying muscle (6.25 cm2).? The wounds were left open and treated with Silver dressing changes and antibiotics until healed.? The left chin scar is itchy and leads to indentation deformity when she animates.? The upper anterior neck scar does not bother her at this time.? She denies recent infection.? She denies any recent trauma.? She presentsat this time for further evaluation and treatment. PAST MEDICAL HISTORY Alcohol use Anxiety Back pain Depression Easy bruising Excessive bleeding Gastric reflux Headache History of methicillin resistant staphylococcus aureus (MRSA) History of pain when walking Hx of fracture of ankle Hypertension Late effect of facial wound Leg cramps Migraine headache Non-smoker Pain Tumors Unspecified open wound of unspecified part of neck, sequela Vision problems Wears dentures PAST SURGICAL HISTORY History of ankle surgery History of incision and drainage Hx laparoscopic cholecystectomy Hx of hysterectomy Hx of nasal septoplasty Stomach tumor (benign) ALLERGIES bupropion MEDICATIONS Omeprazole [Prilosec] tizanidine atenolol buspirone rizatriptan buprenorphine transdermal patch (Butrans) sertraline FAMILY HISTORY Mother - Anxiety, Arthritis, Depression, Diabetes, High cholesterol, Osteoporosis, Hypertension Sister - Anxiety, Depression, Hypertension, STD (female) Grandmother - Arthritis, Depression, Hypertension Grandfather - Hypertension, Arthritis SOCIAL HISTORY Smoking Status:? Never smoker alcohol intake:? current substance use type:? does not use REVIEW OF SYSTEMS General - Denies fever, fatigue, and weight loss.? History of MRSA. Eyes - Denies cataracts and glaucoma. ENT - Denies nasal congestion and sore throat. Endocrine - Denies excessive thirst and urination. Skin - Denies suspicious lesions and skin cancer.? Has MRSA scar contour deformity left chin. Musculoskeletal - Denies joint pain, joint stiffness, weakness of muscles and joints, back pain.? Has arthritis. Neuro - Has headaches. Cardiovascular - Denies chest pain, fatigue, and shortness of breath with exertion. Has hypertension. Psych - Denies anxiety and depression. Respiratory - Denies chronic cough and shortness of breath. Gastrointestinal - Denies nausea, vomiting, diarrhea, and constipation.? Has GERD. Hematologic - Denies abnormal bruising and bleeding. Genitourinary - Denies hematuria and urinary frequency. ? PHYSICAL EXAMINATION General - Alert and Oriented HEENT - PERRL. EOMI.? Throat is clear.? On the left chin is a MRSA scar contour deformity that measures 2 x 1.5 cm.? Deformity is more noticeable with animation.? Lateral to the scar is some muscle that tends to bulge with animation.? The scar is mobile.? Slightly discolored.? No ulceration.? Scar is nontender. Neck - Supple and nontender.? No cervical adenopathy.? On the upper anterior neck is a MRSA scar that is flat.? Measures 1.8 x 1 cm.? Slightly discolored.? The scar is mobile.? No ulceration.? Scar is nontender. Lungs - Clear to auscultation. Heart - Regular rate and rhythm. Abdomen - Soft and nondistended. Extremities - FROM. No axillary adenopathy.? Radial pulses are palpable. Neuro - CN II-XII grossly intact. Psych - Normal mood and affect. ASSESSMENT 1.? 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 2.? 1.8 cm MRSA scar upper anterior neck. 3.? History of MRSA. 4.? History of incision and drainage. PLAN Recommend excisional debridement MRSA scar contour deformity left chin and send the tissue to Pathology for analysis to rule out carcinoma and to Microbiology for culture.? A positive culture will necessitate antibiotic therapy. Will treat perioperatively with Vancomycin because of her history of MRSA. Reconstruction will be with advancement chin flaps and/or a melolabial transposition skin flap. The upper anterior neck scar doesn't bother her at this time so will leave alone for now. Surgery can be done on an outpatient basis under local anesthesia and IV sedation. Patient was informed of the risks and complications of the procedure including alternatives to surgery.? These were discussed with the patient personally.? Patient voices understanding and wishes to proceed. Some of the risks and complications were included in a form from the [employer]. 06/09/22 1106 <Electronically signed by Nani Parnell MD> Cosigner Signature (if applicable): CC: Dr. Nani Parnell MD; Dr. Susan Sevilla MD~ Signed [facility] Work Phone: [phone] 757-529912-19-2022 Miscellaneous Notes* Telephone Encounter - Beena Garcia Ma - 03/23/2022 5:09 PM EST Pt notified. Beena Garcia Ma * Telephone Encounter - Susan Sevilla MD - 03/23/2022 5:07 PM EST OK to change antibiotic from amoxicillin to Zpak as ordered Susan Sevilla MD * Telephone Encounter - Roxana Kimball RN - 03/23/2022 3:32 PM EST Patient calls to ask provider recommendation. She has been to [facility] twice for cough with chest congestion and sore throat. Positive for strep throat and positive for bronchitis. Patient reports that nothing she is taking is helping the cough. The first two days of amoxicillin symptoms started to improve and now the cough and congestion is back to when she first got sick. Current medications: Amoxicillin 500 mg twice daily for 10 days Last day 03/28/2022 Prednisone 40 mg daily Last dose today Tessalon 10 mg 2 caps tid prn Mucinex DM twice daily Patient asking if another antibiotic would be recommended over the amoxicillin. Roxana Kimball RN [facility] History of Present illness Narrative* Gabbie Horvath PA-C - 03/18/2022 9:51 AM EST This note was created using [employer]. Subjective Salma Browning is a 47 year old female. HPI Patient presents with sore throat and cough. She was positive for influenza on the seventh. She states the cough continues. No fever. She has had a worsening sore throat and her daughter was positivefor strep so she came in for evaluation. No vomiting or diarrhea. No shortness of breath. Review of Systems Constitutional: Negative. HENT: Positive for sore throat. Respiratory: Positive for cough. Negative for shortness of breath. Cardiovascular: Negative. Gastrointestinal: Negative. Genitourinary: Negative. Musculoskeletal: Negative. All other systems reviewed and are negative. PAST MEDICAL HISTORY Diagnosis Date Abnormal antibody titer On type and screen during #2. Repeat nl, no major antibodies, negative repeat antibody screen. ?False positive. Abnormal Pap smear of cervix Acute gastritis without mention of hemorrhage Atrophic gastritis 2010 CHOLELITHIASIS See also GALLBLADDER 08/26/2005 Congenital choledochal cyst Depression Depressive disorder, not elsewhere classified Diaphragmatic hernia without mention of obstruction or gangrene Esophagitis, unspecified Fatty tumor of liver 2005 FX LATERAL MALLEOLUS-CLOSE 09/03/2008 GERD (gastroesophageal reflux disease) 03/15/2012 On 3 meds in . ?hiatal hernia. 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 20 tablet 0 omeprazole (PRILOSEC) 40 mg capsule Take 1 capsule by mouth twice daily. 180 capsule 0 sertraline (ZOLOFT) 100 mg tablet Take 2 tablets by mouth once daily. 180 tablet 0 NIFEdipine XL (ADALAT CC) 30 mg 24 hr tablet Take 1 tablet by mouth once daily. 90 tablet 0 atenolol (TENORMIN) 50 mg tablet Take 1 tablet by mouth once daily. 90 tablet 0 rizatriptan (MAXALT) 10 mg tablet Take 1 tablet by mouth as needed for migraine headache (see administration instructions). 6 tablet 5 MEDROL, SHAHIDA, 4 mg Dose-Pack Take on steroid pack as directed. 21 tablet 0 topiramate (TOPAMAX) 50 mg tablet Take 1 tablet by mouth twice daily. 60 tablet 5 nabumetone (RELAFEN) 750 mg tablet predniSONE (DELTASONE) 20 mg tablet Take 2 tablets by mouth once daily for 5 days. 10 tablet 0 benzonatate (TESSALON PERLES) 100 mg capsule Take 2 capsules by mouth three times daily as needed. 30 capsule 0 Amoxicillin 500 mg tablet Take 1 tablet by mouth twice daily for 10 days. 20 tablet 0 albuterol HFA (PROVENTIL HFA, VENTOLIN HFA) 90 mcg/actuation inhaler Inhale 2 Puffs as instructed every 4 hours as needed. (Patient not taking: Reported on 12/10/2021) 8 g 0 predniSONE (DELTASONE) 10 mg tablet Take 4 tabs daily for 3 days, then 2 tabs daily for 3 days, then 1 tab daily for 3 days with food. (Patient not taking: No sig reported) 21 tablet 0 COMPOUNDED PRESCRIPTION Consult to Pain Management - Dr. Nolasco Dx: bilateral knee osteoarthritis; chronic pain (Patient not taking: Reported on 12/10/2021) 1 Each 0 No current facility-administered medications for this visit. PAST SURGICAL HISTORY Procedure Laterality Date CHOLECYSTECTOMY COLONOSCOPY FLX DX W/COLLJ SPEC WHEN PFRMD 05/09/2019 Colonoscopy EGD TRANSORAL BIOPSY SINGLE/MULTIPLE 09/22/10 ESOPHAGOGASTRODUODENOSCOPY TRANSORAL DIAGNOSTIC 05/09/2019 EGD HYSTERECTOMY HX 2017 [facility] PAST SURGICAL HISTORY OF Tumor removed from stomach, benign per pt PAST SURGICAL HISTORY OF 03/2009 left ankle fracture REM LESIO TRUNK,ARM,LEG 1.1 -2.0CM REMOVAL DEEP IMPLANT 12/06/09 Performed by KATHI POWELL at [facility] RPR DISLOC PERONEAL TENDON W/O FIBULAR OSTEOTOMY 12/06/09 Performed by KATHI POWELL at [facility] SIGMOIDOSCOPY FLX DX W/COLLJ SPEC BR/WA IF PFRMD 06/2004 Sigmoidoscopy, flexible SINUSOTOMY MAXILLARY ANTROTOMY INTRANASAL Byrd-Elliott sinusotomy TONSILLECTOMY PRIMARY/SECONDARY <AGE 12 Tonsillectomy VAGINOSCOPY FAMILY HISTORY Problem Relation Age of Onset Diabetes Mother other (colon polyps [Other]) Father no cancer found Heart Father Hypertension Father Ischemic Heart Disease Father Coronary Artery Disease Father COPD Father Thyroid Brother Social History Tobacco Use Smoking status: Never Smokeless tobacco: Never Substance Use Topics Alcohol use: Yes Comment: rarely, 1-2 weekends per month 5 drinks (prior to ) Drug use: No Objective BP 150/84 Pulse 72 Temp (!) 35.9 C (96.7 F) Resp 21 Wt 108.8 kg (239 lb 12.8 oz) LMP (LMPUnknown) SpO2 99% BMI 41.16 kg/m Physical Exam Vitals reviewed. Constitutional: Appearance: Normal appearance. HENT: Head: Normocephalic and atraumatic. Right Ear: Tympanic membrane, ear canal and external ear normal. Left Ear: Tympanic membrane, ear canal and external ear normal. Nose: Nose normal. Mouth/Throat: Mouth: Mucous membranes are moist. Pharynx: Uvula midline. Pharyngeal swelling, posterior oropharyngeal erythema and uvula swelling present. No oropharyngeal exudate. Neurological: Mental Status: She is alert. Assessment and Plan ASSESSMENT/PLAN: 1. Strep pharyngitis - ICD9: 034.0, ICD10: J02.0 (primary diagnosis) - Alere Strep Test positive, no culture pending - Amoxicillin for 10 days. - Contagious dz precautions discussed- including considered contagious until on antibiotics for 24 hours - The patient should follow up in 3-5 days if symptoms persist or worsen - STREP A MOLECULAR (POC) 2. Bronchitis - ICD9: 490, ICD10: J40 Prednisone and tessalon. Lungs clear, oxygenating well. Gabbie Horvath PA-C documented in this encounterTr[facility] History of Present illness Narrative* Janki Hinds APRN.HEARING AID DISPENSER - 03/11/2022 10:56 AM EST Subjective The history is provided by the patient. No language assistant was used. HPI Salma Browning is a 47 year old female who presents today for CC of cough, congestion, body aches, runny nose for 4 days. She has used tylenol and otc cough medications with short term relief. She was exposed to covid BP 138/82 Pulse 103 Temp 37.1 C (98.8 F) Resp 21 Wt 107.9 kg (237 lb 12.8 oz) LMP (LMP Unknown) SpO2 98% BMI 40.82 kg/m Social History Tobacco Use Smoking status: Never Smokeless tobacco: Never Substance Use Topics Alcohol use: Yes Comment: rarely, 1-2 weekends per month 5 drinks (prior to ) Drug use: No PAST MEDICAL HISTORY Diagnosis Date Abnormal antibody titer On type and screen during #2. Repeat nl, no major antibodies, negative repeat antibody screen. ?False positive. Abnormal Pap smear of cervix Acute gastritis without mention of hemorrhage Atrophic gastritis 2010 CHOLELITHIASIS See also GALLBLADDER 08/26/2005 Congenital choledochal cyst Depression Depressive disorder, not elsewhere classified Diaphragmatic hernia without mention of obstruction or gangrene Esophagitis, unspecified Fatty tumor of liver 2005 FX LATERAL MALLEOLUS-CLOSE 09/03/2008 GERD (gastroesophageal reflux disease) 03/15/2012 On 3 meds in . ?hiatal hernia. 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 HENT: Positive for congestion and sore throat. Negative for ear pain and sinus pain. Respiratory: Positive for cough. Negative for sputum production, shortness of breath and wheezing. Cardiovascular: Negative for chest pain. Gastrointestinal: Negative for abdominal pain, diarrhea, nausea and vomiting. Musculoskeletal: Positive for myalgias. Neurological: Negative for headaches. Objective Physical Exam Vitals and nursing note reviewed. HENT: Head: Normocephalic and atraumatic. Right Ear: Tympanic membrane, ear canal and external ear normal. Left Ear: Tympanic membrane, ear canal and external ear normal. Nose: Mucosal edema, congestion and rhinorrhea present. Right Sinus: No maxillary sinus tenderness or frontal sinus tenderness. Left Sinus: No maxillary sinus tenderness or frontal sinus tenderness. Mouth/Throat: Pharynx: Uvula midline. Posterior oropharyngeal erythema present. No oropharyngeal exudate. Cardiovascular: Rate and Rhythm: Normal rate and regular rhythm. Heart sounds: Normal heart sounds. Pulmonary: Effort: Pulmonary effort is normal. Breath sounds: Normal breath sounds. Lymphadenopathy: Head: Right side of head: No submental, submandibular or tonsillar adenopathy. Left side of head: No submental, submandibular or tonsillar adenopathy. Cervical: No cervical adenopathy. Skin: General: Skin is warm and dry. Neurological: Mental Status: She is alert. Psychiatric: Mood and Affect: Affect normal. ASSESSMENT/PLAN: 1. Exposure to COVID-19 virus - ICD9: V01.79, ICD10: Z20.822 (primary diagnosis) Home isolation Testing ordered Comfort measures discussed - see patient instructions. When to seek higher level of care Notified in 12-24 hours with results, available on [facility] - COVID WITH FLUA+B, ROUTINE 2. URI with cough and congestion - ICD9: 465.9, ICD10: J06.9 - Discussed viral etiology and rationale for treatment. - Symptomatic treatment with prn analgesia - Supportive care with fluids and rest - Mucinex DM - COVID WITH FLUA+B, ROUTINE Diagnosis and treatment plan were discussed and questions were answered to the patient's satisfaction. Pt acknowledged understanding of concepts and follow up plan. Specific signs and symptoms that would indicate the need for higher level of care were discussed indetail warranting prompt ER evaluation. Janki Hinds APRN.HEARING AID DISPENSER documented in this encounterTr[facility]12-07-2022 Instructions* Patient Instructions* Janki Hinds APRN.CNP - 03/11/2022 10:56 AM EST covid and influenza test ordered You will be notified in 12-24 hours, results available on MyChart Home isolation until results are back Rest, increase water intake Motrin or Tylenol as needed for fever or pain. Salt water gargles, chloraseptic spray or lozenges as needed for sore throat. Warm beverages, honey. Nasal saline spray as needed Cool mist humidifier at night Tylenol (generic acetaminophen) 500 mg-2 tabs every 8 hrs. as needed for fever and aches Ibuprofen 600 mg (3-200mg tablets) every 6 hours Mucinex DM as ordered * Seek medical care immediately, call 911, go to ER if you have chest pain, difficulty breathing, shortness of breath, inability to swallow. documented in this encounterTr[facility]09-20-2022 Miscellaneous Notes* Telephone Encounter - Neal Gmoez APRN.CNP - 12/23/2021 11:03 AM EDT The following approved medication requests have been transmitted electronically. Requested Prescriptions Pending Prescriptions Disp Refills omeprazole (PRILOSEC) 40 mg capsule 180 capsule 0 Sig: Take 1 capsule by mouth twice daily. sertraline (ZOLOFT) 100 mg tablet 180 tablet 0 Sig: Take 2 tablets by mouth once daily. NIFEdipine XL (ADALAT CC) 30 mg 24 hr tablet 90 tablet 0 Sig: Take 1 tablet by mouth once daily. atenolol (TENORMIN) 50 mg tablet 90 tablet 0 Sig: Take 1 tablet by mouth once daily. rizatriptan (MAXALT) 10 mg tablet 6 tablet 5 Sig: Take 1 tablet by mouth as needed for migraine headache (see administration instructions). Neal Gomez APRN.CNP documented in this encounterTr[facility]09-07-2022 History of Present illness Narrative* RT Paxton(R) - 12/10/2021 9:10 AM EDT Radiology Service Progress Note PATIENT NAME: Salma Browning DATE OF SERVICE: December 10, 2021 TIME: 9:24 AM PATIENT IDENTITY VERIFICATION COMPLETED USING TWO (2) IDENTIFIERS: Name and Date of confirmedby patient verbally. FALL SCREENING: Has the patient had 2 falls in the last year or 1 fall with injury or currently using an Ambulatory Assistive Device (Walker, Cane, Wheelchair, Crutches, etc.)? No PATIENT GENDER DATA: Female. status: : No status: NO. PATIENT RELEVANT IMPLANT DATA REVIEWED: Not Applicable RADIOLOGY DEPARTMENT: General X-ray: Exam(s) Completed: Lower Extremity X- Ray(s): Foot, Left and Wt. Bearing PERIPHERAL IV DATA: Not applicable SIGNED BY: RT Paxton(R) December 10, 2021 9:24 AM documented in this encounterTr[facility]08-01-2022 Miscellaneous Notes* Telephone Encounter - Mary Mcmillan APRN.CNP - 11/03/2021 11:51 AM EDT The following approved medication requests have been transmitted electronically. Signed Prescriptions Disp Refills topiramate (TOPAMAX) 50 mg tablet 60 tablet 5 Sig: Take 1 tablet by mouth twice daily. Mary Mcmillan APRN.CNP * Telephone Encounter - Krystyna Resendez Ma - 10/04/2021 11:39 AM EDT See update from pt and advise. Krystyna Resendez Ma documented in this encounterTr[facility]06-24-2022 Miscellaneous Notes* Telephone Encounter - Mary Mcmillan APRN.CNP - 09/26/2021 9:09 AM EDT The following approved medication requests have been transmitted electronically. Signed Prescriptions Disp Refills hydrocortisone 2.5 % cream 28 g 1 Sig: Apply 1 application to affected area twice daily for 10 days. Location: [place] Mary Mcmillan APRN.CNP * Telephone Encounter - Krystyna Resendez Ma - 09/26/2021 8:55 AM EDT From what I can see this was given to her from here in 2009? Krystyna Resendez Ma documented in this encounterTr[facility]06-16-2022 Miscellaneous Notes* Telephone Encounter - Swapna Argueta MA - 09/18/2021 7:27 AM EDT Patient active MyChart. Patient notified via [employer]ioLogs message. Swapna Argueta MA * Telephone Encounter - Mary Mcmillan APRN.CNP - 09/18/2021 6:51 AM EDT Can you please call the patient and let her know that I reviewed her lab results, labs were all relatively normal except her LDL was elevated at 143. I would recommend making lifestyle changes at home to help improve this. Try to decrease any processed foods in the diet, increase protein/vegetables, and get some form of exercise. No further testing needed at this time please let me know if she has any questions. Thank you. Mary Mcmillan APRN.CNP documented in this encounterTrinity [facility]03-30-2016 History of Past illness Narrative* Problem Noted Date Resolved Date Chronic pain of left knee 07/03/20152015 Pre-eclampsia added to pre-existing hypertension 11/17/2014 02/19/2016 10/10/2014 10/12/2014 Overview: Per patient report, had an uncomplicated , heightened care given maternal age - f/u CBC and CMP to rule out HELLP (?retained placental material) - c/o tender breats, will plan supportive care with breast pump and ice packs for now. Volume overload 10/10/2014 10/12/2014 Overview: Exam at the moment with mild hypervolemia, CXR with congestion though hypoinflated, BNP at OSH elevated as well as Ti (likely due to high LVEDP and low CPP) - Responded well to 40mg IV lasix, will continue for now (last dosed at 4am) - Will start afterload reduction with hydralazine and ISDN given (avoiding ACEi) - No role for ASA, aldactone just yet - Avoiding beta blockade given sinus tachycardia -->don't want to drop her CO, seems to be dependant on HR. - TTE today - f/u CK and Tt here. 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 Abnormal O'Howe glucose challenge test, ante 08/23/2014 02/19/2016 Overview: Normal 3 hr GTT - JV Advanced maternal age (AMA), 40 years or greater 07/10/2014 10/12/2014 Abnormal antibody titer 03/05/2014 10/13/19 15 Overview: Will need follow up in 4 weeks. Katarzyna Arroyo, DO Cervical high risk human pap illomavirus (HPV) DNA test positive 10/27/2013 10/12/2014 Gonorrhea 08/24/2013 10/12/2014 Controlled substance agreement signed 02/08/2013 10/12/2014 Overview: Urine tox screen completely negative for substances Feb 2013. 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 myelopathy 12/0510/12/2014 DDD (degenerative disc disease), lumbar 12/25/19 12 10/12/2014 Cervical strain 12/25/2011 01/26/2013 Cervicalgia 12/25/2011 01/26/2013 Panic attack 11/13/2010 02/08/2013 Atrophic gastritis without mention of hemorrhage 09/22/2010 10/12/2014 Diaphragmatic hernia without mention of obstruction or gangrene 09/22/2010 10/12/2014 Esophagitis, unspecified 09/22/2010 015 Sprain of neck 08/20/2010 01/26/2013 Urticaria 05/10/2009 02/08/2013 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 02/08/2013 Closed fracture of lateral malleolus 09/03/2008 02/08/2013 DEPRESSIVE DISORDER NEC 02/02/2007 10/13/19 15 Cough 02/01/2007 04/25/2008 Restless legs syndrome (RLS) 06/29/200609/2012 CHOLEDOCHAL CYST, 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 CHOLELITHIASIS See also GALLBLADDER 08/26/2005 02/08/2013 Unspecified hemorrhoids without mention of compl ication 04/25/2008 Overview: Hemorrhoids documented as of this encounter (statuses as of 09/18/2021) [facility]03-[facility] History of Past illness Narrative* Problem Noted Date Resolved Date Chronic pain of left knee 07/03/20152015 Pre-eclampsia added to pre-existing hypertension 11/17/2014 02/19/2016 10/10/2014 10/12/2014 Overview: Per patient report, had an uncomplicated , heightened care given maternal age - f/u CBC and CMP to rule out HELLP (?retained placental material) - c/o tender breats, will plan supportive care with breast pump and ice packs for now. Volume overload 10/10/2014 10/12/2014 Overview: Exam at the moment with mild hypervolemia, CXR with congestion though hypoinflated, BNP at OSH elevated as well as Ti (likely due to high LVEDP and low CPP) - Responded well to 40mg IV lasix, will continue for now (last dosed at 4am) - Will start afterload reduction with hydralazine and ISDN given (avoiding ACEi) - No role for ASA, aldactone just yet - Avoiding beta blockade given sinus tachycardia -->don't want to drop her CO, seems to be dependant on HR. - TTE today - f/u CK and Tt here. 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 Abnormal O'Howe glucose challenge test, ante 08/23/2014 02/19/2016 Overview: Normal 3 hr GTT - JV Advanced maternal age (AMA), 40 years or greater 07/10/2014 10/12/2014 Abnormal antibody titer 03/05/2014 10/13/19 15 Overview: Will need follow up in 4 weeks. Katarzyna Arroyo, DO Cervical high risk human pap illomavirus (HPV) DNA test positive 10/27/2013 10/12/2014 Gonorrhea 08/24/2013 10/12/2014 Controlled substance agreement signed 02/08/2013 10/12/2014 Overview: Urine tox screen completely negative for substances Feb 2013. 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 myelopathy 12/0510/12/2014 DDD (degenerative disc disease), lumbar 12/25/19 12 10/12/2014 Cervical strain 12/25/2011 01/26/2013 Cervicalgia 12/25/2011 01/26/2013 Panic attack 11/13/2010 02/08/2013 Atrophic gastritis without mention of hemorrhage 09/22/2010 10/12/2014 Diaphragmatic hernia without mention of obstruction or gangrene 09/22/2010 10/12/2014 Esophagitis, unspecified 09/22/2010 015 Sprain of neck 08/20/2010 01/26/2013 Urticaria 05/10/2009 02/08/2013 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 02/08/2013 Closed fracture of lateral malleolus 09/03/2008 02/08/2013 DEPRESSIVE DISORDER NEC 02/02/2007 10/13/19 15 Cough 02/01/2007 04/25/2008 Restless legs syndrome (RLS) 06/29/200609/2012 CHOLEDOCHAL CYST, 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 CHOLELITHIASIS See also GALLBLADDER 08/26/2005 02/08/2013 Unspecified hemorrhoids without mention of compl ication 04/25/2008 Overview: Hemorrhoids documented as of this encounter (statuses as of 09/26/2021) [facility] History of Past illness Narrative* Problem Noted Date Resolved Date Chronic pain of left knee 07/03/20152015 Pre-eclampsia added to pre-existing hypertension 11/17/2014 02/19/2016 10/10/2014 10/12/2014 Overview: Per patient report, had an uncomplicated , heightened care given maternal age - f/u CBC and CMP to rule out HELLP (?retained placental material) - c/o tender breats, will plan supportive care with breast pump and ice packs for now. Volume overload 10/10/2014 10/12/2014 Overview: Exam at the moment with mild hypervolemia, CXR with congestion though hypoinflated, BNP at OSH elevated as well as Ti (likely due to high LVEDP and low CPP) - Responded well to 40mg IV lasix, will continue for now (last dosed at 4am) - Will start afterload reduction with hydralazine and ISDN given (avoiding ACEi) - No role for ASA, aldactone just yet - Avoiding beta blockade given sinus tachycardia -->don't want to drop her CO, seems to be dependant on HR. - TTE today - f/u CK and Tt here. 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 Abnormal O'Howe glucose challenge test, ante 08/23/2014 02/19/2016 Overview: Normal 3 hr GTT - JV Advanced maternal age (AMA), 40 years or greater 07/10/2014 10/12/2014 Abnormal antibody titer 03/05/2014 10/13/19 15 Overview: Will need follow up in 4 weeks. Katarzyna Arroyo, Cervical high risk human pap illomavirus (HPV) DNA test positive 10/27/2013 10/12/2014 Gonorrhea 08/24/2013 10/12/2014 Controlled substance agreement signed 02/08/2013 10/12/2014 Overview: Urine tox screen completely negative for substances Feb 2013. 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 myelopathy 12/0510/12/2014 DDD (degenerative disc disease), lumbar 12/25/19 12 10/12/2014 Cervical strain 12/25/2011 01/26/2013 Cervicalgia 12/25/2011 01/26/2013 Panic attack 11/13/2010 02/08/2013 Atrophic gastritis without mention of hemorrhage 09/22/2010 10/12/2014 Diaphragmatic hernia without mention of obstruction or gangrene 09/22/2010 10/12/2014 Esophagitis, unspecified 09/22/2010 015 Sprain of neck 08/20/2010 01/26/2013 Urticaria 05/10/2009 02/08/2013 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 02/08/2013 Closed fracture of lateral malleolus 09/03/2008 02/08/2013 DEPRESSIVE DISORDER NEC 02/02/2007 10/13/19 15 Cough 02/01/2007 04/25/2008 Restless legs syndrome (RLS) 06/29/200609/2012 CHOLEDOCHAL CYST, 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 CHOLELITHIASIS See also GALLBLADDER 08/26/2005 02/08/2013 Unspecified hemorrhoids without mention of compl ication 04/25/2008 Overview: Hemorrhoids documented as of this encounter (statuses as of 10/06/2021) [facility] of Past illness Narrative* Problem Noted Date Resolved Date Chronic pain of left knee 07/03/20152015 Pre-eclampsia added to pre-existing hypertension 11/17/2014 02/19/2016 10/10/2014 10/12/2014 Overview: Per patient report, had an uncomplicated , heightened care given maternal age - f/u CBC and CMP to rule out HELLP (?retained placental material) - c/o tender breats, will plan supportive care with breast pump and ice packs for now. Volume overload 10/10/2014 10/12/2014 Overview: Exam at the moment with mild hypervolemia, CXR with congestion though hypoinflated, BNP at OSH elevated as well as Ti (likely due to high LVEDP and low CPP) - Responded well to 40mg IV lasix, will continue for now (last dosed at 4am) - Will start afterload reduction with hydralazine and ISDN given (avoiding ACEi) - No role for ASA, aldactone just yet - Avoiding beta blockade given sinus tachycardia -->don't want to drop her CO, seems to be dependant on HR. - TTE today - f/u CK and Tt here. 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 Abnormal O'Howe glucose challenge test, ante 08/23/2014 02/19/2016 Overview: Normal 3 hr GTT - JV Advanced maternal age (AMA), 40 years or greater 07/10/2014 10/12/2014 Abnormal antibody titer 03/05/2014 10/13/19 15 Overview: Will need follow up in 4 weeks. Katarzyna Arroyo, Cervical high risk human pap illomavirus (HPV) DNA test positive 10/27/2013 10/12/2014 Gonorrhea 08/24/2013 10/12/2014 Controlled substance agreement signed 02/08/2013 10/12/2014 Overview: Urine tox screen completely negative for substances Feb 2013. 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 myelopathy 12/0510/12/2014 DDD (degenerative disc disease), lumbar 12/25/19 12 10/12/2014 Cervical strain 12/25/2011 01/26/2013 Cervicalgia 12/25/2011 01/26/2013 Panic attack 11/13/2010 02/08/2013 Atrophic gastritis without mention of hemorrhage 09/22/2010 10/12/2014 Diaphragmatic hernia without mention of obstruction or gangrene 09/22/2010 10/12/2014 Esophagitis, unspecified 09/22/2010 015 Sprain of neck 08/20/2010 01/26/2013 Urticaria 05/10/2009 02/08/2013 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 02/08/2013 Closed fracture of lateral malleolus 09/03/2008 02/08/2013 DEPRESSIVE DISORDER NEC 02/02/2007 10/13/19 15 Cough 02/01/2007 04/25/2008 Restless legs syndrome (RLS) 06/29/200609/2012 CHOLEDOCHAL CYST, 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 CHOLELITHIASIS See also GALLBLADDER 08/26/2005 02/08/2013 Unspecified hemorrhoids without mention of compl ication 04/25/2008 Overview: Hemorrhoids documented as of this encounter (statuses as of 11/03/2021) [facility] of Past illness Narrative* Problem Noted Date Resolved Date Chronic pain of left knee 07/03/20152015 Pre-eclampsia added to pre-existing hypertension 11/17/2014 02/19/2016 10/10/2014 10/12/2014 Overview: Per patient report, had an uncomplicated , heightened care given maternal age - f/u CBC and CMP to rule out HELLP (?retained placental material) - c/o tender breats, will plan supportive care with breast pump and ice packs for now. Volume overload 10/10/2014 10/12/2014 Overview: Exam at the moment with mild hypervolemia, CXR with congestion though hypoinflated, BNP at OSH elevated as well as Ti (likely due to high LVEDP and low CPP) - Responded well to 40mg IV lasix, will continue for now (last dosed at 4am) - Will start afterload reduction with hydralazine and ISDN given (avoiding ACEi) - No role for ASA, aldactone just yet - Avoiding beta blockade given sinus tachycardia -->don't want to drop her CO, seems to be dependant on HR. - TTE today - f/u CK and Tt here. 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 Abnormal O'Howe glucose challenge test, ante 08/23/2014 02/19/2016 Overview: Normal 3 hr GTT - JV Advanced maternal age (AMA), 40 years or greater 07/10/2014 10/12/2014 Abnormal antibody titer 03/05/2014 10/13/19 15 Overview: Will need follow up in 4 weeks. Katarzyna Arroyo, Cervical high risk human pap illomavirus (HPV) DNA test positive 10/27/2013 10/12/2014 Gonorrhea 08/24/2013 10/12/2014 Controlled substance agreement signed 02/08/2013 10/12/2014 Overview: Urine tox screen completely negative for substances Feb 2013. 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 myelopathy 12/0510/12/2014 DDD (degenerative disc disease), lumbar 12/25/19 12 10/12/2014 Cervical strain 12/25/2011 01/26/2013 Cervicalgia 12/25/2011 01/26/2013 Panic attack 11/13/2010 02/08/2013 Atrophic gastritis without mention of hemorrhage 09/22/2010 10/12/2014 Diaphragmatic hernia without mention of obstruction or gangrene 09/22/2010 10/12/2014 Esophagitis, unspecified 09/22/2010 015 Sprain of neck 08/20/2010 01/26/2013 Urticaria 05/10/2009 02/08/2013 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 02/08/2013 Closed fracture of lateral malleolus 09/03/2008 02/08/2013 DEPRESSIVE DISORDER NEC 02/02/2007 10/13/19 15 Cough 02/01/2007 04/25/2008 Restless legs syndrome (RLS) 06/29/200609/2012 CHOLEDOCHAL CYST, 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 CHOLELITHIASIS See also GALLBLADDER 08/26/2005 02/08/2013 Unspecified hemorrhoids without mention of compl ication 04/25/2008 Overview: Hemorrhoids documented as of this encounter (statuses as of 12/11/2021) [facility] History of Past illness Narrative* Problem Noted Date Resolved Date Chronic pain of left knee 07/03/20152015 Pre-eclampsia added to pre-existing hypertension 11/17/2014 02/19/2016 10/10/2014 10/12/2014 Overview: Per patient report, had an uncomplicated , heightened care given maternal age - f/u CBC and CMP to rule out HELLP (?retained placental material) - c/o tender breats, will plan supportive care with breast pump and ice packs for now. Volume overload 10/10/2014 10/12/2014 Overview: Exam at the moment with mild hypervolemia, CXR with congestion though hypoinflated, BNP at OSH elevated as well as Ti (likely due to high LVEDP and low CPP) - Responded well to 40mg IV lasix, will continue for now (last dosed at 4am) - Will start afterload reduction with hydralazine and ISDN given (avoiding ACEi) - No role for ASA, aldactone just yet - Avoiding beta blockade given sinus tachycardia -->don't want to drop her CO, seems to be dependant on HR. - TTE today - f/u CK and Tt here. 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 Abnormal O'Howe glucose challenge test, ante 08/23/2014 02/19/2016 Overview: Normal 3 hr GTT - JV Advanced maternal age (AMA), 40 years or greater 07/10/2014 10/12/2014 Abnormal antibody titer 03/05/2014 10/13/19 15 Overview: Will need follow up in 4 weeks. Katarzyna Arroyo, DO Cervical high risk human pap illomavirus (HPV) DNA test positive 10/27/2013 10/12/2014 Gonorrhea 08/24/2013 10/12/2014 Controlled substance agreement signed 02/08/2013 10/12/2014 Overview: Urine tox screen completely negative for substances Feb 2013. 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 myelopathy 12/0510/12/2014 DDD (degenerative disc disease), lumbar 12/25/19 12 10/12/2014 Cervical strain 12/25/2011 01/26/2013 Cervicalgia 12/25/2011 01/26/2013 Panic attack 11/13/2010 02/08/2013 Atrophic gastritis without mention of hemorrhage 09/22/2010 10/12/2014 Diaphragmatic hernia without mention of obstruction or gangrene 09/22/2010 10/12/2014 Esophagitis, unspecified 09/22/2010 015 Sprain of neck 08/20/2010 01/26/2013 Urticaria 05/10/2009 02/08/2013 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 02/08/2013 Closed fracture of lateral malleolus 09/03/2008 02/08/2013 DEPRESSIVE DISORDER NEC 02/02/2007 10/13/19 15 Cough 02/01/2007 04/25/2008 Restless legs syndrome (RLS) 06/29/200609/2012 CHOLEDOCHAL CYST, 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 CHOLELITHIASIS See also GALLBLADDER 08/26/2005 02/08/2013 Unspecified hemorrhoids without mention of compl ication 04/25/2008 Overview: Hemorrhoids documented as of this encounter (statuses as of 12/11/2021) [facility] History of Past illness Narrative* Problem Noted Date Resolved Date Chronic pain of left knee 07/03/20152015 Pre-eclampsia added to pre-existing hypertension 11/17/2014 02/19/2016 10/10/2014 10/12/2014 Overview: Per patient report, had an uncomplicated , heightened care given maternal age - f/u CBC and CMP to rule out HELLP (?retained placental material) - c/o tender breats, will plan supportive care with breast pump and ice packs for now. Volume overload 10/10/2014 10/12/2014 Overview: Exam at the moment with mild hypervolemia, CXR with congestion though hypoinflated, BNP at OSH elevated as well as Ti (likely due to high LVEDP and low CPP) - Responded well to 40mg IV lasix, will continue for now (last dosed at 4am) - Will start afterload reduction with hydralazine and ISDN given (avoiding ACEi) - No role for ASA, aldactone just yet - Avoiding beta blockade given sinus tachycardia -->don't want to drop her CO, seems to be dependant on HR. - TTE today - f/u CK and Tt here. 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 Abnormal O'Howe glucose challenge test, ante 08/23/2014 02/19/2016 Overview: Normal 3 hr GTT - JV Advanced maternal age (AMA), 40 years or greater 07/10/2014 10/12/2014 Abnormal antibody titer 03/05/2014 10/13/19 15 Overview: Will need follow up in 4 weeks. Katarzyna Arroyo, Cervical high risk human pap illomavirus (HPV) DNA test positive 10/27/2013 10/12/2014 Gonorrhea 08/24/2013 10/12/2014 Controlled substance agreement signed 02/08/2013 10/12/2014 Overview: Urine tox screen completely negative for substances Feb 2013. 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 myelopathy 12/0510/12/2014 DDD (degenerative disc disease), lumbar 12/25/19 12 10/12/2014 Cervical strain 12/25/2011 01/26/2013 Cervicalgia 12/25/2011 01/26/2013 Panic attack 11/13/2010 02/08/2013 Atrophic gastritis without mention of hemorrhage 09/22/2010 10/12/2014 Diaphragmatic hernia without mention of obstruction or gangrene 09/22/2010 10/12/2014 Esophagitis, unspecified 09/22/2010 015 Sprain of neck 08/20/2010 01/26/2013 Urticaria 05/10/2009 02/08/2013 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 02/08/2013 Closed fracture of lateral malleolus 09/03/2008 02/08/2013 DEPRESSIVE DISORDER NEC 02/02/2007 10/13/19 15 Cough 02/01/2007 04/25/2008 Restless legs syndrome (RLS) 06/29/200609/2012 CHOLEDOCHAL CYST, 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 CHOLELITHIASIS See also GALLBLADDER 08/26/2005 02/08/2013 Unspecified hemorrhoids without mention of compl ication 04/25/2008 Overview: Hemorrhoids documented as of this encounter (statuses as of 12/23/2021) [facility] History of Past illness Narrative* Problem Noted Date Resolved Date Chronic pain of left knee 07/03/20152015 Pre-eclampsia added to pre-existing hypertension 11/17/2014 02/19/2016 10/10/2014 10/12/2014 Overview: Per patient report, had an uncomplicated , heightened care given maternal age - f/u CBC and CMP to rule out HELLP (?retained placental material) - c/o tender breats, will plan supportive care with breast pump and ice packs for now. Volume overload 10/10/2014 10/12/2014 Overview: Exam at the moment with mild hypervolemia, CXR with congestion though hypoinflated, BNP at OSH elevated as well as Ti (likely due to high LVEDP and low CPP) - Responded well to 40mg IV lasix, will continue for now (last dosed at 4am) - Will start afterload reduction with hydralazine and ISDN given (avoiding ACEi) - No role for ASA, aldactone just yet - Avoiding beta blockade given sinus tachycardia -->don't want to drop her CO, seems to be dependant on HR. - TTE today - f/u CK and Tt here. 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 Abnormal O'Howe glucose challenge test, ante 08/23/2014 02/19/2016 Overview: Normal 3 hr GTT - JV Advanced maternal age (AMA), 40 years or greater 07/10/2014 10/12/2014 Abnormal antibody titer 03/05/2014 10/13/19 15 Overview: Will need follow up in 4 weeks. Katarzyna Arroyo, Cervical high risk human pap illomavirus (HPV) DNA test positive 10/27/2013 10/12/2014 Gonorrhea 08/24/2013 10/12/2014 Controlled substance agreement signed 02/08/2013 10/12/2014 Overview: Urine tox screen completely negative for substances Feb 2013. 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 myelopathy 12/0510/12/2014 DDD (degenerative disc disease), lumbar 12/25/19 12 10/12/2014 Cervical strain 12/25/2011 01/26/2013 Cervicalgia 12/25/2011 01/26/2013 Panic attack 11/13/2010 02/08/2013 Atrophic gastritis without mention of hemorrhage 09/22/2010 10/12/2014 Diaphragmatic hernia without mention of obstruction or gangrene 09/22/2010 10/12/2014 Esophagitis, unspecified 09/22/2010 015 Sprain of neck 08/20/2010 01/26/2013 Urticaria 05/10/2009 02/08/2013 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 02/08/2013 Closed fracture of lateral malleolus 09/03/2008 02/08/2013 DEPRESSIVE DISORDER NEC 02/02/2007 10/13/19 15 Cough 02/01/2007 04/25/2008 Restless legs syndrome (RLS) 06/29/200609/2012 CHOLEDOCHAL CYST, 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 CHOLELITHIASIS See also GALLBLADDER 08/26/2005 02/08/2013 Unspecified hemorrhoids without mention of compl ication 04/25/2008 Overview: Hemorrhoids documented as of this encounter (statuses as of 03/11/2022) [facility] History of Past illness Narrative* Problem Noted Date Resolved Date Chronic pain of left knee 07/03/20152015 Pre-eclampsia added to pre-existing hypertension 11/17/2014 02/19/2016 10/10/2014 10/12/2014 Overview: Per patient report, had an uncomplicated , heightened care given maternal age - f/u CBC and CMP to rule out HELLP (?retained placental material) - c/o tender breats, will plan supportive care with breast pump and ice packs for now. Volume overload 10/10/2014 10/12/2014 Overview: Exam at the moment with mild hypervolemia, CXR with congestion though hypoinflated, BNP at OSH elevated as well as Ti (likely due to high LVEDP and low CPP) - Responded well to 40mg IV lasix, will continue for now (last dosed at 4am) - Will start afterload reduction with hydralazine and ISDN given (avoiding ACEi) - No role for ASA, aldactone just yet - Avoiding beta blockade given sinus tachycardia -->don't want to drop her CO, seems to be dependant on HR. - TTE today - f/u CK and Tt here. 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 Abnormal O'Howe glucose challenge test, ante 08/23/2014 02/19/2016 Overview: Normal 3 hr GTT - JV Advanced maternal age (AMA), 40 years or greater 07/10/2014 10/12/2014 Abnormal antibody titer 03/05/2014 10/13/19 15 Overview: Will need follow up in 4 weeks. Katarzyna Arroyo, Cervical high risk human pap illomavirus (HPV) DNA test positive 10/27/2013 10/12/2014 Gonorrhea 08/24/2013 10/12/2014 Controlled substance agreement signed 02/08/2013 10/12/2014 Overview: Urine tox screen completely negative for substances Feb 2013. 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 myelopathy 12/0510/12/2014 DDD (degenerative disc disease), lumbar 12/25/19 12 10/12/2014 Cervical strain 12/25/2011 01/26/2013 Cervicalgia 12/25/2011 01/26/2013 Panic attack 11/13/2010 02/08/2013 Atrophic gastritis without mention of hemorrhage 09/22/2010 10/12/2014 Diaphragmatic hernia without mention of obstruction or gangrene 09/22/2010 10/12/2014 Esophagitis, unspecified 09/22/2010 015 Sprain of neck 08/20/2010 01/26/2013 Urticaria 05/10/2009 02/08/2013 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 02/08/2013 Closed fracture of lateral malleolus 09/03/2008 02/08/2013 DEPRESSIVE DISORDER NEC 02/02/2007 10/13/19 15 Cough 02/01/2007 04/25/2008 Restless legs syndrome (RLS) 06/29/200609/2012 CHOLEDOCHAL CYST, 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 CHOLELITHIASIS See also GALLBLADDER 08/26/2005 02/08/2013 Unspecified hemorrhoids without mention of compl ication 04/25/2008 Overview: Hemorrhoids documented as of this encounter (statuses as of 03/18/2022) [facility] History of Past illness Narrative* Problem Noted Date Resolved Date Chronic pain of left knee 07/03/20152015 Pre-eclampsia added to pre-existing hypertension 11/17/2014 02/19/2016 10/10/2014 10/12/2014 Overview: Per patient report, had an uncomplicated , heightened care given maternal age - f/u CBC and CMP to rule out HELLP (?retained placental material) - c/o tender breats, will plan supportive care with breast pump and ice packs for now. Volume overload 10/10/2014 10/12/2014 Overview: Exam at the moment with mild hypervolemia, CXR with congestion though hypoinflated, BNP at OSH elevated as well as Ti (likely due to high LVEDP and low CPP) - Responded well to 40mg IV lasix, will continue for now (last dosed at 4am) - Will start afterload reduction with hydralazine and ISDN given (avoiding ACEi) - No role for ASA, aldactone just yet - Avoiding beta blockade given sinus tachycardia -->don't want to drop her CO, seems to be dependant on HR. - TTE today - f/u CK and Tt here. 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 Abnormal O'Howe glucose challenge test, ante 08/23/2014 02/19/2016 Overview: Normal 3 hr GTT - JV Advanced maternal age (AMA), 40 years or greater 07/10/2014 10/12/2014 Abnormal antibody titer 03/05/2014 10/13/19 15 Overview: Will need follow up in 4 weeks. Katarzyna Arroyo, Cervical high risk human pap illomavirus (HPV) DNA test positive 10/27/2013 10/12/2014 Gonorrhea 08/24/2013 10/12/2014 Controlled substance agreement signed 02/08/2013 10/12/2014 Overview: Urine tox screen completely negative for substances Feb 2013. 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 myelopathy 12/0510/12/2014 DDD (degenerative disc disease), lumbar 12/25/19 12 10/12/2014 Cervical strain 12/25/2011 01/26/2013 Cervicalgia 12/25/2011 01/26/2013 Panic attack 11/13/2010 02/08/2013 Atrophic gastritis without mention of hemorrhage 09/22/2010 10/12/2014 Diaphragmatic hernia without mention of obstruction or gangrene 09/22/2010 10/12/2014 Esophagitis, unspecified 09/22/2010 015 Sprain of neck 08/20/2010 01/26/2013 Urticaria 05/10/2009 02/08/2013 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 02/08/2013 Closed fracture of lateral malleolus 09/03/2008 02/08/2013 DEPRESSIVE DISORDER NEC 02/02/2007 10/13/19 15 Cough 02/01/2007 04/25/2008 Restless legs syndrome (RLS) 06/29/200609/2012 CHOLEDOCHAL CYST, 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 CHOLELITHIASIS See also GALLBLADDER 08/26/2005 02/08/2013 Unspecified hemorrhoids without mention of compl ication 04/25/2008 Overview: Hemorrhoids documented as of this encounter (statuses as of 03/23/2022) [facility] History of Past illness Narrative* Problem Noted Date Resolved Date Chronic pain of left knee 07/03/20152015 Pre-eclampsia added to pre-existing hypertension 11/17/2014 02/19/2016 10/10/2014 10/12/2014 Overview: Per patient report, had an uncomplicated , heightened care given maternal age - f/u CBC and CMP to rule out HELLP (?retained placental material) - c/o tender breats, will plan supportive care with breast pump and ice packs for now. Volume overload 10/10/2014 10/12/2014 Overview: Exam at the moment with mild hypervolemia, CXR with congestion though hypoinflated, BNP at OSH elevated as well as Ti (likely due to high LVEDP and low CPP) - Responded well to 40mg IV lasix, will continue for now (last dosed at 4am) - Will start afterload reduction with hydralazine and ISDN given (avoiding ACEi) - No role for ASA, aldactone just yet - Avoiding beta blockade given sinus tachycardia -->don't want to drop her CO, seems to be dependant on HR. - TTE today - f/u CK and Tt here. 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 Abnormal O'Howe glucose challenge test, ante 08/23/2014 02/19/2016 Overview: Normal 3 hr GTT - JV Advanced maternal age (AMA), 40 years or greater 07/10/2014 10/12/2014 Abnormal antibody titer 03/05/2014 10/13/19 15 Overview: Will need follow up in 4 weeks. Katarzyna Arroyo, DO Cervical high risk human pap illomavirus (HPV) DNA test positive 10/27/2013 10/12/2014 Gonorrhea 08/24/2013 10/12/2014 Controlled substance agreement signed 02/08/2013 10/12/2014 Overview: Urine tox screen completely negative for substances Feb 2013. 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 myelopathy 12/0510/12/2014 DDD (degenerative disc disease), lumbar 12/25/19 12 10/12/2014 Cervical strain 12/25/2011 01/26/2013 Cervicalgia 12/25/2011 01/26/2013 Panic attack 11/13/2010 02/08/2013 Atrophic gastritis without mention of hemorrhage 09/22/2010 10/12/2014 Diaphragmatic hernia without mention of obstruction or gangrene 09/22/2010 10/12/2014 Esophagitis, unspecified 09/22/2010 015 Sprain of neck 08/20/2010 01/26/2013 Urticaria 05/10/2009 02/08/2013 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 02/08/2013 Closed fracture of lateral malleolus 09/03/2008 02/08/2013 DEPRESSIVE DISORDER NEC 02/02/2007 10/13/19 15 Cough 02/01/2007 04/25/2008 Restless legs syndrome (RLS) 06/29/200609/2012 CHOLEDOCHAL CYST, 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 CHOLELITHIASIS See also GALLBLADDER 08/26/2005 02/08/2013 Unspecified hemorrhoids without mention of compl ication 04/25/2008 Overview: Hemorrhoids documented as of this encounter (statuses as of 07/30/2022) [facility] History of Past illness Narrative* Problem Noted Date Resolved Date Chronic pain of left knee 07/03/20152015 Pre-eclampsia added to pre-existing hypertension 11/17/2014 02/19/2016 10/10/2014 10/12/2014 Overview: Per patient report, had an uncomplicated , heightened care given maternal age - f/u CBC and CMP to rule out HELLP (?retained placental material) - c/o tender breats, will plan supportive care with breast pump and ice packs for now. Volume overload 10/10/2014 10/12/2014 Overview: Exam at the moment with mild hypervolemia, CXR with congestion though hypoinflated, BNP at OSH elevated as well as Ti (likely due to high LVEDP and low CPP) - Responded well to 40mg IV lasix, will continue for now (last dosed at 4am) - Will start afterload reduction with hydralazine and ISDN given (avoiding ACEi) - No role for ASA, aldactone just yet - Avoiding beta blockade given sinus tachycardia -->don't want to drop her CO, seems to be dependant on HR. - TTE today - f/u CK and Tt here. 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 Abnormal O'Howe glucose challenge test, ante 08/23/2014 02/19/2016 Overview: Normal 3 hr GTT - JV Advanced maternal age (AMA), 40 years or greater 07/10/2014 10/12/2014 Abnormal antibody titer 03/05/2014 10/13/19 15 Overview: Will need follow up in 4 weeks. Katarzyna Arroyo, Cervical high risk human pap illomavirus (HPV) DNA test positive 10/27/2013 10/12/2014 Gonorrhea 08/24/2013 10/12/2014 Controlled substance agreement signed 02/08/2013 10/12/2014 Overview: Urine tox screen completely negative for substances Feb 2013. 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 myelopathy 12/0510/12/2014 DDD (degenerative disc disease), lumbar 12/25/19 12 10/12/2014 Cervical strain 12/25/2011 01/26/2013 Cervicalgia 12/25/2011 01/26/2013 Panic attack 11/13/2010 02/08/2013 Atrophic gastritis without mention of hemorrhage 09/22/2010 10/12/2014 Diaphragmatic hernia without mention of obstruction or gangrene 09/22/2010 10/12/2014 Esophagitis, unspecified 09/22/2010 015 Sprain of neck 08/20/2010 01/26/2013 Urticaria 05/10/2009 02/08/2013 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 02/08/2013 Closed fracture of lateral malleolus 09/03/2008 02/08/2013 DEPRESSIVE DISORDER NEC 02/02/2007 10/13/19 15 Cough 02/01/2007 04/25/2008 Restless legs syndrome (RLS) 06/29/200609/2012 CHOLEDOCHAL CYST, 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 CHOLELITHIASIS See also GALLBLADDER 08/26/2005 02/08/2013 Unspecified hemorrhoids without mention of compl ication 04/25/2008 Overview: Hemorrhoids documented as of this encounter (statuses as of 07/31/2022) [facility] History of Past illness Narrative* Problem Noted Date Resolved Date Chronic pain of left knee 07/03/20152015 Pre-eclampsia added to pre-existing hypertension 11/17/2014 02/19/2016 10/10/2014 10/12/2014 Overview: Per patient report, had an uncomplicated , heightened care given maternal age - f/u CBC and CMP to rule out HELLP (?retained placental material) - c/o tender breats, will plan supportive care with breast pump and ice packs for now. Volume overload 10/10/2014 10/12/2014 Overview: Exam at the moment with mild hypervolemia, CXR with congestion though hypoinflated, BNP at OSH elevated as well as Ti (likely due to high LVEDP and low CPP) - Responded well to 40mg IV lasix, will continue for now (last dosed at 4am) - Will start afterload reduction with hydralazine and ISDN given (avoiding ACEi) - No role for ASA, aldactone just yet - Avoiding beta blockade given sinus tachycardia -->don't want to drop her CO, seems to be dependant on HR. - TTE today - f/u CK and Tt here. 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 Abnormal O'Howe glucose challenge test, ante 08/23/2014 02/19/2016 Overview: Normal 3 hr GTT - JV Advanced maternal age (AMA), 40 years or greater 07/10/2014 10/12/2014 Abnormal antibody titer 03/05/2014 10/13/19 15 Overview: Will need follow up in 4 weeks. Katarzyna Arroyo, DO Cervical high risk human pap illomavirus (HPV) DNA test positive 10/27/2013 10/12/2014 Gonorrhea 08/24/2013 10/12/2014 Controlled substance agreement signed 02/08/2013 10/12/2014 Overview: Urine tox screen completely negative for substances Feb 2013. 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 myelopathy 12/0510/12/2014 DDD (degenerative disc disease), lumbar 12/25/19 12 10/12/2014 Cervical strain 12/25/2011 01/26/2013 Cervicalgia 12/25/2011 01/26/2013 Panic attack 11/13/2010 02/08/2013 Atrophic gastritis without mention of hemorrhage 09/22/2010 10/12/2014 Diaphragmatic hernia without mention of obstruction or gangrene 09/22/2010 10/12/2014 Esophagitis, unspecified 09/22/2010 015 Sprain of neck 08/20/2010 01/26/2013 Urticaria 05/10/2009 02/08/2013 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 02/08/2013 Closed fracture of lateral malleolus 09/03/2008 02/08/2013 DEPRESSIVE DISORDER NEC 02/02/2007 10/13/19 15 Cough 02/01/2007 04/25/2008 Restless legs syndrome (RLS) 06/29/200609/2012 CHOLEDOCHAL CYST, 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 CHOLELITHIASIS See also GALLBLADDER 08/26/2005 02/08/2013 Unspecified hemorrhoids without mention of compl ication 04/25/2008 Overview: Hemorrhoids documented as of this encounter (statuses as of 08/17/2022) [facility]03[facility] History of Past illness Narrative* Problem Noted Date Resolved Date Chronic pain of left knee 07/03/20152015 Pre-eclampsia added to pre-existing hypertension 11/17/2014 02/19/2016 10/10/2014 10/12/2014 Overview: Per patient report, had an uncomplicated , heightened care given maternal age - f/u CBC and CMP to rule out HELLP (?retained placental material) - c/o tender breats, will plan supportive care with breast pump and ice packs for now. Volume overload 10/10/2014 10/12/2014 Overview: Exam at the moment with mild hypervolemia, CXR with congestion though hypoinflated, BNP at OSH elevated as well as Ti (likely due to high LVEDP and low CPP) - Responded well to 40mg IV lasix, will continue for now (last dosed at 4am) - Will start afterload reduction with hydralazine and ISDN given (avoiding ACEi) - No role for ASA, aldactone just yet - Avoiding beta blockade given sinus tachycardia -->don't want to drop her CO, seems to be dependant on HR. - TTE today - f/u CK and Tt here. 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 Abnormal O'Howe glucose challenge test, ante 08/23/2014 02/19/2016 Overview: Normal 3 hr GTT - JV Advanced maternal age (AMA), 40 years or greater 07/10/2014 10/12/2014 Abnormal antibody titer 03/05/2014 10/13/19 15 Overview: Will need follow up in 4 weeks. Katarzyna Arroyo, Cervical high risk human pap illomavirus (HPV) DNA test positive 10/27/2013 10/12/2014 Gonorrhea 08/24/2013 10/12/2014 Controlled substance agreement signed 02/08/2013 10/12/2014 Overview: Urine tox screen completely negative for substances Feb 2013. 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 myelopathy 12/0510/12/2014 DDD (degenerative disc disease), lumbar 12/25/19 12 10/12/2014 Cervical strain 12/25/2011 01/26/2013 Cervicalgia 12/25/2011 01/26/2013 Panic attack 11/13/2010 02/08/2013 Atrophic gastritis without mention of hemorrhage 09/22/2010 10/12/2014 Diaphragmatic hernia without mention of obstruction or gangrene 09/22/2010 10/12/2014 Esophagitis, unspecified 09/22/2010 015 Sprain of neck 08/20/2010 01/26/2013 Urticaria 05/10/2009 02/08/2013 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 02/08/2013 Closed fracture of lateral malleolus 09/03/2008 02/08/2013 DEPRESSIVE DISORDER NEC 02/02/2007 10/13/19 15 Cough 02/01/2007 04/25/2008 Restless legs syndrome (RLS) 06/29/200609/2012 CHOLEDOCHAL CYST, 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 CHOLELITHIASIS See also GALLBLADDER 08/26/2005 02/08/2013 Unspecified hemorrhoids without mention of compl ication 04/25/2008 Overview: Hemorrhoids documented as of this encounter (statuses as of 10/08/2022) [facility]03[facility] History of Past illness Narrative* Problem Noted Date Resolved Date Chronic pain of left knee 07/03/20152015 Pre-eclampsia added to pre-existing hypertension 11/17/2014 02/19/2016 10/10/2014 10/12/2014 Overview: Per patient report, had an uncomplicated , heightened care given maternal age - f/u CBC and CMP to rule out HELLP (?retained placental material) - c/o tender breats, will plan supportive care with breast pump and ice packs for now. Volume overload 10/10/2014 10/12/2014 Overview: Exam at the moment with mild hypervolemia, CXR with congestion though hypoinflated, BNP at OSH elevated as well as Ti (likely due to high LVEDP and low CPP) - Responded well to 40mg IV lasix, will continue for now (last dosed at 4am) - Will start afterload reduction with hydralazine and ISDN given (avoiding ACEi) - No role for ASA, aldactone just yet - Avoiding beta blockade given sinus tachycardia -->don't want to drop her CO, seems to be dependant on HR. - TTE today - f/u CK and Tt here. 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 Abnormal O'Howe glucose challenge test, ante 08/23/2014 02/19/2016 Overview: Normal 3 hr GTT - JV Advanced maternal age (AMA), 40 years or greater 07/10/2014 10/12/2014 Abnormal antibody titer 03/05/2014 10/13/19 15 Overview: Will need follow up in 4 weeks. Katarzyna Arroyo, Cervical high risk human pap illomavirus (HPV) DNA test positive 10/27/2013 10/12/2014 Gonorrhea 08/24/2013 10/12/2014 Controlled substance agreement signed 02/08/2013 10/12/2014 Overview: Urine tox screen completely negative for substances Feb 2013. 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 myelopathy 12/0510/12/2014 DDD (degenerative disc disease), lumbar 12/25/19 12 10/12/2014 Cervical strain 12/25/2011 01/26/2013 Cervicalgia 12/25/2011 01/26/2013 Panic attack 11/13/2010 02/08/2013 Atrophic gastritis without mention of hemorrhage 09/22/2010 10/12/2014 Diaphragmatic hernia without mention of obstruction or gangrene 09/22/2010 10/12/2014 Esophagitis, unspecified 09/22/2010 015 Sprain of neck 08/20/2010 01/26/2013 Urticaria 05/10/2009 02/08/2013 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 02/08/2013 Closed fracture of lateral malleolus 09/03/2008 02/08/2013 DEPRESSIVE DISORDER NEC 02/02/2007 10/13/19 15 Cough 02/01/2007 04/25/2008 Restless legs syndrome (RLS) 06/29/200609/2012 CHOLEDOCHAL CYST, 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 CHOLELITHIASIS See also GALLBLADDER 08/26/2005 02/08/2013 Unspecified hemorrhoids without mention of compl ication 04/25/2008 Overview: Hemorrhoids documented as of this encounter (statuses as of 10/09/2022) [facility] History of Past illness Narrative* Problem Noted Date Diagnosed Date Resolved Date Chronic pain of left knee 07/03/2015 Pre-eclampsia added to pre-e xisting hypertension 11/17/2014 02/19/2016 10/10/2014 10/12/2014 Overview: Per patient report, had an uncomplicated , heightened care given maternal age - f/u CBC and CMP to rule out HELLP (?retained placental material) - c/o tender breats, will plan supportive care with breast pump and ice packs for now. Volume overload 10/10/2014 10/12/2014 Overview: Exam at the moment with mild hypervolemia, CXR with congestion though hypoinflated, BNP at OSH elevated as well as Ti (likely due to high LVEDP and low CPP) - Responded well to 40mg IV lasix, will continue for now (last dosed at 4am) - Will start afterload reduction with hydralazine and ISDN given (avoiding ACEi) - No role for ASA, aldactone just yet - Avoiding beta blockade given sinus tachycardia -->don't want to drop her CO, seems to be dependant on HR. - TTE today - f/u CK and Tt here. 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 Abnormal O'Howe glucose challenge test, antepartum 08/23/2014 02/19/2016 Overview: Normal 3 hr GTT - JV Advanced maternal age (AMA), 40 years or greater 07/10/2014 10/12/2014 Abnormal antibody titer 03/05/201410/03 Overview: Will need follow up in 4 weeks. Katarzyna Arroyo, DO Cervical high risk human pap illomavirus (HPV) DNA test positive 10/27/2013 10/12/2014 Gonorrhea 08/24/2013 10/12/2014 Controlled substance agreement signed 02/08/2013 10/12/2014 Overview: Urine tox screen completely negative for substances Feb 2013. 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 09/22/2010 10/12/2014 Diaphragmatic hernia without mention of obstruction or gangrene 09/22/2010 10/12/2014 Esophagitis, unspecified 09/22/201001/2015 Sprain of neck 08/20/2010 01/26/2013 Urticaria 05/10/2009 02/08/2013 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 013 Closed fracture of lateral malleolus 09/03/2008 02/08/2013 DEPRESSIVE DISORDER NEC 02/02/200710/03 Cough 02/01/2007 04/25/2008 Restless legs syndrome (RLS) 06/29/2006 02/08/2013 CHOLEDOCHAL CYST, 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 10/12/2014 CHOLELITHIASIS See also GALLBLADDER 08/26/2005 02/08/2013 Unspecified hemorrhoids with out mention of complication 04/25/2008 Overview: Hemorrhoids documented as of this encounter (statuses as of 10/17/2022) [facility]03[facility] History of Past illness Narrative* Problem Noted Date Diagnosed Date Resolved Date Chronic pain of left knee 07/03/2015 Pre-eclampsia added to pre-e xisting hypertension 11/17/2014 02/19/2016 10/10/2014 10/12/2014 Overview: Per patient report, had an uncomplicated , heightened care given maternal age - f/u CBC and CMP to rule out HELLP (?retained placental material) - c/o tender breats, will plan supportive care with breast pump and ice packs for now. Volume overload 10/10/2014 10/12/2014 Overview: Exam at the moment with mild hypervolemia, CXR with congestion though hypoinflated, BNP at OSH elevated as well as Ti (likely due to high LVEDP and low CPP) - Responded well to 40mg IV lasix, will continue for now (last dosed at 4am) - Will start afterload reduction with hydralazine and ISDN given (avoiding ACEi) - No role for ASA, aldactone just yet - Avoiding beta blockade given sinus tachycardia -->don't want to drop her CO, seems to be dependant on HR. - TTE today - f/u CK and Tt here. 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 Abnormal O'Howe glucose challenge test, antepartum 08/23/2014 02/19/2016 Overview: Normal 3 hr GTT - JV Advanced maternal age (AMA), 40 years or greater 07/10/2014 10/12/2014 Abnormal antibody titer 03/05/201410/03 Overview: Will need follow up in 4 weeks. Katarzyna Arroyo, DO Cervical high risk human pap illomavirus (HPV) DNA test positive 10/27/2013 10/12/2014 Gonorrhea 08/24/2013 10/12/2014 Controlled substance agreement signed 02/08/2013 10/12/2014 Overview: Urine tox screen completely negative for substances Feb 2013. 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 09/22/2010 10/12/2014 Diaphragmatic hernia without mention of obstruction or gangrene 09/22/2010 10/12/2014 Esophagitis, unspecified 09/22/201001/2015 Sprain of neck 08/20/2010 01/26/2013 Urticaria 05/10/2009 02/08/2013 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 013 Closed fracture of lateral malleolus 09/03/2008 02/08/2013 DEPRESSIVE DISORDER NEC 02/02/200710/03 Cough 02/01/2007 04/25/2008 Restless legs syndrome (RLS) 06/29/2006 02/08/2013 CHOLEDOCHAL CYST, 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 10/12/2014 CHOLELITHIASIS See also GALLBLADDER 08/26/2005 02/08/2013 Unspecified hemorrhoids with out mention of complication 04/25/2008 Overview: Hemorrhoids documented as of this encounter (statuses as of 11/05/2022) [facility]03[facility] History of Past illness Narrative* Problem Noted Date Diagnosed Date Resolved Date Chronic pain of left knee 07/03/2015 Pre-eclampsia added to pre-e xisting hypertension 11/17/2014 02/19/2016 10/10/2014 10/12/2014 Overview: Per patient report, had an uncomplicated , heightened care given maternal age - f/u CBC and CMP to rule out HELLP (?retained placental material) - c/o tender breats, will plan supportive care with breast pump and ice packs for now. Volume overload 10/10/2014 10/12/2014 Overview: Exam at the moment with mild hypervolemia, CXR with congestion though hypoinflated, BNP at OSH elevated as well as Ti (likely due to high LVEDP and low CPP) - Responded well to 40mg IV lasix, will continue for now (last dosed at 4am) - Will start afterload reduction with hydralazine and ISDN given (avoiding ACEi) - No role for ASA, aldactone just yet - Avoiding beta blockade given sinus tachycardia -->don't want to drop her CO, seems to be dependant on HR. - TTE today - f/u CK and Tt here. 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 Abnormal O'Howe glucose challenge test, antepartum 08/23/2014 02/19/2016 Overview: Normal 3 hr GTT - JV Advanced maternal age (AMA), 40 years or greater 07/10/2014 10/12/2014 Abnormal antibody titer 03/05/201410/03 Overview: Will need follow up in 4 weeks. Katarzyna Arroyo, Cervical high risk human pap illomavirus (HPV) DNA test positive 10/27/2013 10/12/2014 Gonorrhea 08/24/2013 10/12/2014 Controlled substance agreement signed 02/08/2013 10/12/2014 Overview: Urine tox screen completely negative for substances Feb 2013. 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 09/22/2010 10/12/2014 Diaphragmatic hernia without mention of obstruction or gangrene 09/22/2010 10/12/2014 Esophagitis, unspecified 09/22/201001/2015 Sprain of neck 08/20/2010 01/26/2013 Urticaria 05/10/2009 02/08/2013 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 013 Closed fracture of lateral malleolus 09/03/2008 02/08/2013 DEPRESSIVE DISORDER NEC 02/02/200710/03 Cough 02/01/2007 04/25/2008 Restless legs syndrome (RLS) 06/29/2006 02/08/2013 CHOLEDOCHAL CYST, 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 10/12/2014 CHOLELITHIASIS See also GALLBLADDER 08/26/2005 02/08/2013 Unspecified hemorrhoids with out mention of complication 04/25/2008 Overview: Hemorrhoids documented as of this encounter (statuses as of 11/10/2022) [facility] History of Past illness Narrative* Problem Noted Date Diagnosed Date Resolved Date Chronic pain of left knee 07/03/2015 Pre-eclampsia added to pre-e xisting hypertension 11/17/2014 02/19/2016 10/10/2014 10/12/2014 Overview: Per patient report, had an uncomplicated , heightened care given maternal age - f/u CBC and CMP to rule out HELLP (?retained placental material) - c/o tender breats, will plan supportive care with breast pump and ice packs for now. Volume overload 10/10/2014 10/12/2014 Overview: Exam at the moment with mild hypervolemia, CXR with congestion though hypoinflated, BNP at OSH elevated as well as Ti (likely due to high LVEDP and low CPP) - Responded well to 40mg IV lasix, will continue for now (last dosed at 4am) - Will start afterload reduction with hydralazine and ISDN given (avoiding ACEi) - No role for ASA, aldactone just yet - Avoiding beta blockade given sinus tachycardia -->don't want to drop her CO, seems to be dependant on HR. - TTE today - f/u CK and Tt here. 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 Abnormal O'Howe glucose challenge test, antepartum 08/23/2014 02/19/2016 Overview: Normal 3 hr GTT - JV Advanced maternal age (AMA), 40 years or greater 07/10/2014 10/12/2014 Abnormal antibody titer 03/05/201410/03 Overview: Will need follow up in 4 weeks. Katarzyna Arroyo, Cervical high risk human pap illomavirus (HPV) DNA test positive 10/27/2013 10/12/2014 Gonorrhea 08/24/2013 10/12/2014 Controlled substance agreement signed 02/08/2013 10/12/2014 Overview: Urine tox screen completely negative for substances Feb 2013. 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 09/22/2010 10/12/2014 Diaphragmatic hernia without mention of obstruction or gangrene 09/22/2010 10/12/2014 Esophagitis, unspecified 09/22/201001/2015 Sprain of neck 08/20/2010 01/26/2013 Urticaria 05/10/2009 02/08/2013 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 013 Closed fracture of lateral malleolus 09/03/2008 02/08/2013 DEPRESSIVE DISORDER NEC 02/02/200710/03 Cough 02/01/2007 04/25/2008 Restless legs syndrome (RLS) 06/29/2006 02/08/2013 CHOLEDOCHAL CYST, 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 10/12/2014 CHOLELITHIASIS See also GALLBLADDER 08/26/2005 02/08/2013 Unspecified hemorrhoids with out mention of complication 04/25/2008 Overview: Hemorrhoids documented as of this encounter (statuses as of 11/10/2022) [facility] History of Past illness Narrative* Problem Noted Date Diagnosed Date Resolved Date Chronic pain of left knee 07/03/2015 Pre-eclampsia added to pre-e xisting hypertension 11/17/2014 02/19/2016 10/10/2014 10/12/2014 Overview: Per patient report, had an uncomplicated , heightened care given maternal age - f/u CBC and CMP to rule out HELLP (?retained placental material) - c/o tender breats, will plan supportive care with breast pump and ice packs for now. Volume overload 10/10/2014 10/12/2014 Overview: Exam at the moment with mild hypervolemia, CXR with congestion though hypoinflated, BNP at OSH elevated as well as Ti (likely due to high LVEDP and low CPP) - Responded well to 40mg IV lasix, will continue for now (last dosed at 4am) - Will start afterload reduction with hydralazine and ISDN given (avoiding ACEi) - No role for ASA, aldactone just yet - Avoiding beta blockade given sinus tachycardia -->don't want to drop her CO, seems to be dependant on HR. - TTE today - f/u CK and Tt here. 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 Abnormal O'Howe glucose challenge test, antepartum 08/23/2014 02/19/2016 Overview: Normal 3 hr GTT - JV Advanced maternal age (AMA), 40 years or greater 07/10/2014 10/12/2014 Abnormal antibody titer 03/05/201410/03 Overview: Will need follow up in 4 weeks. Katarzyna Arroyo, DO Cervical high risk human pap illomavirus (HPV) DNA test positive 10/27/2013 10/12/2014 Gonorrhea 08/24/2013 10/12/2014 Controlled substance agreement signed 02/08/2013 10/12/2014 Overview: Urine tox screen completely negative for substances Feb 2013. 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 09/22/2010 10/12/2014 Diaphragmatic hernia without mention of obstruction or gangrene 09/22/2010 10/12/2014 Esophagitis, unspecified 09/22/201001/2015 Sprain of neck 08/20/2010 01/26/2013 Urticaria 05/10/2009 02/08/2013 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 013 Closed fracture of lateral malleolus 09/03/2008 02/08/2013 DEPRESSIVE DISORDER NEC 02/02/200710/03 Cough 02/01/2007 04/25/2008 Restless legs syndrome (RLS) 06/29/2006 02/08/2013 CHOLEDOCHAL CYST, 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 10/12/2014 CHOLELITHIASIS See also GALLBLADDER 08/26/2005 02/08/2013 Unspecified hemorrhoids with out mention of complication 04/25/2008 Overview: Hemorrhoids documented as of this encounter (statuses as of 11/19/2022) [facility] History of Past illness Narrative* Problem Noted Date Diagnosed Date Resolved Date Chronic pain of left knee 07/03/2015 Pre-eclampsia added to pre-e xisting hypertension 11/17/2014 02/19/2016 10/10/2014 10/12/2014 Overview: Per patient report, had an uncomplicated , heightened care given maternal age - f/u CBC and CMP to rule out HELLP (?retained placental material) - c/o tender breats, will plan supportive care with breast pump and ice packs for now. Volume overload 10/10/2014 10/12/2014 Overview: Exam at the moment with mild hypervolemia, CXR with congestion though hypoinflated, BNP at OSH elevated as well as Ti (likely due to high LVEDP and low CPP) - Responded well to 40mg IV lasix, will continue for now (last dosed at 4am) - Will start afterload reduction with hydralazine and ISDN given (avoiding ACEi) - No role for ASA, aldactone just yet - Avoiding beta blockade given sinus tachycardia -->don't want to drop her CO, seems to be dependant on HR. - TTE today - f/u CK and Tt here. 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 Abnormal O'Howe glucose challenge test, antepartum 08/23/2014 02/19/2016 Overview: Normal 3 hr GTT - JV Advanced maternal age (AMA), 40 years or greater 07/10/2014 10/12/2014 Abnormal antibody titer 03/05/201410/03 Overview: Will need follow up in 4 weeks. Katarzyna Arroyo, DO Cervical high risk human pap illomavirus (HPV) DNA test positive 10/27/2013 10/12/2014 Gonorrhea 08/24/2013 10/12/2014 Controlled substance agreement signed 02/08/2013 10/12/2014 Overview: Urine tox screen completely negative for substances Feb 2013. 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 09/22/2010 10/12/2014 Diaphragmatic hernia without mention of obstruction or gangrene 09/22/2010 10/12/2014 Esophagitis, unspecified 09/22/201001/2015 Sprain of neck 08/20/2010 01/26/2013 Urticaria 05/10/2009 02/08/2013 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 013 Closed fracture of lateral malleolus 09/03/2008 02/08/2013 DEPRESSIVE DISORDER NEC 02/02/200710/03 Cough 02/01/2007 04/25/2008 Restless legs syndrome (RLS) 06/29/2006 02/08/2013 CHOLEDOCHAL CYST, 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 10/12/2014 CHOLELITHIASIS See also GALLBLADDER 08/26/2005 02/08/2013 Unspecified hemorrhoids with out mention of complication 04/25/2008 Overview: Hemorrhoids documented as of this encounter (statuses as of 12/01/2022) [facility]03[facility] History of Past illness Narrative* Problem Noted Date Diagnosed Date Resolved Date Chronic pain of left knee 07/03/2015 Pre-eclampsia added to pre-e xisting hypertension 11/17/2014 02/19/2016 10/10/2014 10/12/2014 Overview: Per patient report, had an uncomplicated , heightened care given maternal age - f/u CBC and CMP to rule out HELLP (?retained placental material) - c/o tender breats, will plan supportive care with breast pump and ice packs for now. Volume overload 10/10/2014 10/12/2014 Overview: Exam at the moment with mild hypervolemia, CXR with congestion though hypoinflated, BNP at OSH elevated as well as Ti (likely due to high LVEDP and low CPP) - Responded well to 40mg IV lasix, will continue for now (last dosed at 4am) - Will start afterload reduction with hydralazine and ISDN given (avoiding ACEi) - No role for ASA, aldactone just yet - Avoiding beta blockade given sinus tachycardia -->don't want to drop her CO, seems to be dependant on HR. - TTE today - f/u CK and Tt here. 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 Abnormal O'Howe glucose challenge test, antepartum 08/23/2014 02/19/2016 Overview: Normal 3 hr GTT - JV Advanced maternal age (AMA), 40 years or greater 07/10/2014 10/12/2014 Abnormal antibody titer 03/05/201410/03 Overview: Will need follow up in 4 weeks. Katarzyna Arroyo, DO Cervical high risk human pap illomavirus (HPV) DNA test positive 10/27/2013 10/12/2014 Gonorrhea 08/24/2013 10/12/2014 Controlled substance agreement signed 02/08/2013 10/12/2014 Overview: Urine tox screen completely negative for substances Feb 2013. 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 09/22/2010 10/12/2014 Diaphragmatic hernia without mention of obstruction or gangrene 09/22/2010 10/12/2014 Esophagitis, unspecified 09/22/201001/2015 Sprain of neck 08/20/2010 01/26/2013 Urticaria 05/10/2009 02/08/2013 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 013 Closed fracture of lateral malleolus 09/03/2008 02/08/2013 DEPRESSIVE DISORDER NEC 02/02/200710/03 Cough 02/01/2007 04/25/2008 Restless legs syndrome (RLS) 06/29/2006 02/08/2013 CHOLEDOCHAL CYST, 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 10/12/2014 CHOLELITHIASIS See also GALLBLADDER 08/26/2005 02/08/2013 Unspecified hemorrhoids with out mention of complication 04/25/2008 Overview: Hemorrhoids documented as of this encounter (statuses as of 12/03/2022) [facility]03[facility] History of Past illness Narrative* Problem Noted Date Diagnosed Date Resolved Date Chronic pain of left knee 07/03/2015 Pre-eclampsia added to pre-e xisting hypertension 11/17/2014 02/19/2016 10/10/2014 10/12/2014 Overview: Per patient report, had an uncomplicated , heightened care given maternal age - f/u CBC and CMP to rule out HELLP (?retained placental material) - c/o tender breats, will plan supportive care with breast pump and ice packs for now. Volume overload 10/10/2014 10/12/2014 Overview: Exam at the moment with mild hypervolemia, CXR with congestion though hypoinflated, BNP at OSH elevated as well as Ti (likely due to high LVEDP and low CPP) - Responded well to 40mg IV lasix, will continue for now (last dosed at 4am) - Will start afterload reduction with hydralazine and ISDN given (avoiding ACEi) - No role for ASA, aldactone just yet - Avoiding beta blockade given sinus tachycardia -->don't want to drop her CO, seems to be dependant on HR. - TTE today - f/u CK and Tt here. 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 Abnormal O'Howe glucose challenge test, antepartum 08/23/2014 02/19/2016 Overview: Normal 3 hr GTT - JV Advanced maternal age (AMA), 40 years or greater 07/10/2014 10/12/2014 Abnormal antibody titer 03/05/201410/03 Overview: Will need follow up in 4 weeks. Katarzyna Arroyo, DO Cervical high risk human pap illomavirus (HPV) DNA test positive 10/27/2013 10/12/2014 Gonorrhea 08/24/2013 10/12/2014 Controlled substance agreement signed 02/08/2013 10/12/2014 Overview: Urine tox screen completely negative for substances Feb 2013. 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 09/22/2010 10/12/2014 Diaphragmatic hernia without mention of obstruction or gangrene 09/22/2010 10/12/2014 Esophagitis, unspecified 09/22/201001/2015 Sprain of neck 08/20/2010 01/26/2013 Urticaria 05/10/2009 02/08/2013 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 013 Closed fracture of lateral malleolus 09/03/2008 02/08/2013 DEPRESSIVE DISORDER NEC 02/02/200710/03 Cough 02/01/2007 04/25/2008 Restless legs syndrome (RLS) 06/29/2006 02/08/2013 CHOLEDOCHAL CYST, 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 10/12/2014 CHOLELITHIASIS See also GALLBLADDER 08/26/2005 02/08/2013 Unspecified hemorrhoids with out mention of complication 04/25/2008 Overview: Hemorrhoids documented as of this encounter (statuses as of 12/04/2022) [facility] History of Past illness Narrative* Problem Noted Date Diagnosed Date Resolved Date Chronic pain of left knee 07/03/2015 Pre-eclampsia added to pre-e xisting hypertension 11/17/2014 02/19/2016 10/10/2014 10/12/2014 Overview: Per patient report, had an uncomplicated , heightened care given maternal age - f/u CBC and CMP to rule out HELLP (?retained placental material) - c/o tender breats, will plan supportive care with breast pump and ice packs for now. Volume overload 10/10/2014 10/12/2014 Overview: Exam at the moment with mild hypervolemia, CXR with congestion though hypoinflated, BNP at OSH elevated as well as Ti (likely due to high LVEDP and low CPP) - Responded well to 40mg IV lasix, will continue for now (last dosed at 4am) - Will start afterload reduction with hydralazine and ISDN given (avoiding ACEi) - No role for ASA, aldactone just yet - Avoiding beta blockade given sinus tachycardia -->don't want to drop her CO, seems to be dependant on HR. - TTE today - f/u CK and Tt here. 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 Abnormal O'Howe glucose challenge test, antepartum 08/23/2014 02/19/2016 Overview: Normal 3 hr GTT - JV Advanced maternal age (AMA), 40 years or greater 07/10/2014 10/12/2014 Abnormal antibody titer 03/05/201410/03 Overview: Will need follow up in 4 weeks. Katarzyna Arroyo, Cervical high risk human pap illomavirus (HPV) DNA test positive 10/27/2013 10/12/2014 Gonorrhea 08/24/2013 10/12/2014 Controlled substance agreement signed 02/08/2013 10/12/2014 Overview: Urine tox screen completely negative for substances Feb 2013. 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 09/22/2010 10/12/2014 Diaphragmatic hernia without mention of obstruction or gangrene 09/22/2010 10/12/2014 Esophagitis, unspecified 09/22/201001/2015 Sprain of neck 08/20/2010 01/26/2013 Urticaria 05/10/2009 02/08/2013 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 013 Closed fracture of lateral malleolus 09/03/2008 02/08/2013 DEPRESSIVE DISORDER NEC 02/02/200710/03 Cough 02/01/2007 04/25/2008 Restless legs syndrome (RLS) 06/29/2006 02/08/2013 CHOLEDOCHAL CYST, 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 10/12/2014 CHOLELITHIASIS See also GALLBLADDER 08/26/2005 02/08/2013 Unspecified hemorrhoids with out mention of complication 04/25/2008 Overview: Hemorrhoids documented as of this encounter (statuses as of 12/09/2022) [facility]03[facility] History of Past illness Narrative* Problem Noted Date Diagnosed Date Resolved Date Chronic pain of left knee 07/03/2015 Pre-eclampsia added to pre-e xisting hypertension 11/17/2014 02/19/2016 10/10/2014 10/12/2014 Overview: Per patient report, had an uncomplicated , heightened care given maternal age - f/u CBC and CMP to rule out HELLP (?retained placental material) - c/o tender breats, will plan supportive care with breast pump and ice packs for now. Volume overload 10/10/2014 10/12/2014 Overview: Exam at the moment with mild hypervolemia, CXR with congestion though hypoinflated, BNP at OSH elevated as well as Ti (likely due to high LVEDP and low CPP) - Responded well to 40mg IV lasix, will continue for now (last dosed at 4am) - Will start afterload reduction with hydralazine and ISDN given (avoiding ACEi) - No role for ASA, aldactone just yet - Avoiding beta blockade given sinus tachycardia -->don't want to drop her CO, seems to be dependant on HR. - TTE today - f/u CK and Tt here. 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 Abnormal O'Howe glucose challenge test, antepartum 08/23/2014 02/19/2016 Overview: Normal 3 hr GTT - JV Advanced maternal age (AMA), 40 years or greater 07/10/2014 10/12/2014 Abnormal antibody titer 03/05/201410/03 Overview: Will need follow up in 4 weeks. Katarzyna Arroyo, Cervical high risk human pap illomavirus (HPV) DNA test positive 10/27/2013 10/12/2014 Gonorrhea 08/24/2013 10/12/2014 Controlled substance agreement signed 02/08/2013 10/12/2014 Overview: Urine tox screen completely negative for substances Feb 2013. 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 09/22/2010 10/12/2014 Diaphragmatic hernia without mention of obstruction or gangrene 09/22/2010 10/12/2014 Esophagitis, unspecified 09/22/201001/2015 Sprain of neck 08/20/2010 01/26/2013 Urticaria 05/10/2009 02/08/2013 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 013 Closed fracture of lateral malleolus 09/03/2008 02/08/2013 DEPRESSIVE DISORDER NEC 02/02/200710/03 Cough 02/01/2007 04/25/2008 Restless legs syndrome (RLS) 06/29/2006 02/08/2013 CHOLEDOCHAL CYST, 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 10/12/2014 CHOLELITHIASIS See also GALLBLADDER 08/26/2005 02/08/2013 Unspecified hemorrhoids with out mention of complication 04/25/2008 Overview: Hemorrhoids documented as of this encounter (statuses as of 12/11/2022) [facility]03[facility] History of Past illness Narrative* Problem Noted Date Diagnosed Date Resolved Date Chronic pain of left knee 07/03/2015 Pre-eclampsia added to pre-e xisting hypertension 11/17/2014 02/19/2016 10/10/2014 10/12/2014 Overview: Per patient report, had an uncomplicated , heightened care given maternal age - f/u CBC and CMP to rule out HELLP (?retained placental material) - c/o tender breats, will plan supportive care with breast pump and ice packs for now. Volume overload 10/10/2014 10/12/2014 Overview: Exam at the moment with mild hypervolemia, CXR with congestion though hypoinflated, BNP at OSH elevated as well as Ti (likely due to high LVEDP and low CPP) - Responded well to 40mg IV lasix, will continue for now (last dosed at 4am) - Will start afterload reduction with hydralazine and ISDN given (avoiding ACEi) - No role for ASA, aldactone just yet - Avoiding beta blockade given sinus tachycardia -->don't want to drop her CO, seems to be dependant on HR. - TTE today - f/u CK and Tt here. 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 Abnormal O'Howe glucose challenge test, antepartum 08/23/2014 02/19/2016 Overview: Normal 3 hr GTT - JV Advanced maternal age (AMA), 40 years or greater 07/10/2014 10/12/2014 Abnormal antibody titer 03/05/201410/03 Overview: Will need follow up in 4 weeks. Katarzyna Arroyo, DO Cervical high risk human pap illomavirus (HPV) DNA test positive 10/27/2013 10/12/2014 Gonorrhea 08/24/2013 10/12/2014 Controlled substance agreement signed 02/08/2013 10/12/2014 Overview: Urine tox screen completely negative for substances Feb 2013. 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 09/22/2010 10/12/2014 Diaphragmatic hernia without mention of obstruction or gangrene 09/22/2010 10/12/2014 Esophagitis, unspecified 09/22/201001/2015 Sprain of neck 08/20/2010 01/26/2013 Urticaria 05/10/2009 02/08/2013 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 013 Closed fracture of lateral malleolus 09/03/2008 02/08/2013 DEPRESSIVE DISORDER NEC 02/02/200710/03 Cough 02/01/2007 04/25/2008 Restless legs syndrome (RLS) 06/29/2006 02/08/2013 CHOLEDOCHAL CYST, 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 10/12/2014 CHOLELITHIASIS See also GALLBLADDER 08/26/2005 02/08/2013 Unspecified hemorrhoids with out mention of complication 04/25/2008 Overview: Hemorrhoids documented as of this encounter (statuses as of 12/21/2022) [facility] History of Past illness Narrative* Problem Noted Date Diagnosed Date Resolved Date Chronic pain of left knee 07/03/2015 Pre-eclampsia added to pre-e xisting hypertension 11/17/2014 02/19/2016 10/10/2014 10/12/2014 Overview: Per patient report, had an uncomplicated , heightened care given maternal age - f/u CBC and CMP to rule out HELLP (?retained placental material) - c/o tender breats, will plan supportive care with breast pump and ice packs for now. Volume overload 10/10/2014 10/12/2014 Overview: Exam at the moment with mild hypervolemia, CXR with congestion though hypoinflated, BNP at OSH elevated as well as Ti (likely due to high LVEDP and low CPP) - Responded well to 40mg IV lasix, will continue for now (last dosed at 4am) - Will start afterload reduction with hydralazine and ISDN given (avoiding ACEi) - No role for ASA, aldactone just yet - Avoiding beta blockade given sinus tachycardia -->don't want to drop her CO, seems to be dependant on HR. - TTE today - f/u CK and Tt here. 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 Abnormal O'Howe glucose challenge test, antepartum 08/23/2014 02/19/2016 Overview: Normal 3 hr GTT - JV Advanced maternal age (AMA), 40 years or greater 07/10/2014 10/12/2014 Abnormal antibody titer 03/05/201410/03 Overview: Will need follow up in 4 weeks. Katarzyna Arroyo, Cervical high risk human pap illomavirus (HPV) DNA test positive 10/27/2013 10/12/2014 Gonorrhea 08/24/2013 10/12/2014 Controlled substance agreement signed 02/08/2013 10/12/2014 Overview: Urine tox screen completely negative for substances Feb 2013. 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 09/22/2010 10/12/2014 Diaphragmatic hernia without mention of obstruction or gangrene 09/22/2010 10/12/2014 Esophagitis, unspecified 09/22/201001/2015 Sprain of neck 08/20/2010 01/26/2013 Urticaria 05/10/2009 02/08/2013 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 013 Closed fracture of lateral malleolus 09/03/2008 02/08/2013 DEPRESSIVE DISORDER NEC 02/02/200710/03 Cough 02/01/2007 04/25/2008 Restless legs syndrome (RLS) 06/29/2006 02/08/2013 CHOLEDOCHAL CYST, 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 10/12/2014 CHOLELITHIASIS See also GALLBLADDER 08/26/2005 02/08/2013 Unspecified hemorrhoids with out mention of complication 04/25/2008 Overview: Hemorrhoids documented as of this encounter (statuses as of 12/25/2022) [facility] History of Past illness Narrative* Problem Noted Date Diagnosed Date Resolved Date Chronic pain of left knee 07/03/2015 Pre-eclampsia added to pre-e xisting hypertension 11/17/2014 02/19/2016 10/10/2014 10/12/2014 Overview: Per patient report, had an uncomplicated , heightened care given maternal age - f/u CBC and CMP to rule out HELLP (?retained placental material) - c/o tender breats, will plan supportive care with breast pump and ice packs for now. Volume overload 10/10/2014 10/12/2014 Overview: Exam at the moment with mild hypervolemia, CXR with congestion though hypoinflated, BNP at OSH elevated as well as Ti (likely due to high LVEDP and low CPP) - Responded well to 40mg IV lasix, will continue for now (last dosed at 4am) - Will start afterload reduction with hydralazine and ISDN given (avoiding ACEi) - No role for ASA, aldactone just yet - Avoiding beta blockade given sinus tachycardia -->don't want to drop her CO, seems to be dependant on HR. - TTE today - f/u CK and Tt here. 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 Abnormal O'Howe glucose challenge test, antepartum 08/23/2014 02/19/2016 Overview: Normal 3 hr GTT - JV Advanced maternal age (AMA), 40 years or greater 07/10/2014 10/12/2014 Abnormal antibody titer 03/05/201410/03 Overview: Will need follow up in 4 weeks. Katarzyna Arroyo, DO Cervical high risk human pap illomavirus (HPV) DNA test positive 10/27/2013 10/12/2014 Gonorrhea 08/24/2013 10/12/2014 Controlled substance agreement signed 02/08/2013 10/12/2014 Overview: Urine tox screen completely negative for substances Feb 2013. 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 09/22/2010 10/12/2014 Diaphragmatic hernia without mention of obstruction or gangrene 09/22/2010 10/12/2014 Esophagitis, unspecified 09/22/201001/2015 Sprain of neck 08/20/2010 01/26/2013 Urticaria 05/10/2009 02/08/2013 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 013 Closed fracture of lateral malleolus 09/03/2008 02/08/2013 DEPRESSIVE DISORDER NEC 02/02/200710/03 Cough 02/01/2007 04/25/2008 Restless legs syndrome (RLS) 06/29/2006 02/08/2013 CHOLEDOCHAL CYST, 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 10/12/2014 CHOLELITHIASIS See also GALLBLADDER 08/26/2005 02/08/2013 Unspecified hemorrhoids with out mention of complication 04/25/2008 Overview: Hemorrhoids documented as of this encounter (statuses as of 12/29/2022) [facility] History of Past illness Narrative* Problem Noted Date Diagnosed Date Resolved Date Chronic pain of left knee 07/03/2015 Pre-eclampsia added to pre-e xisting hypertension 11/17/2014 02/19/2016 10/10/2014 10/12/2014 Overview: Per patient report, had an uncomplicated , heightened care given maternal age - f/u CBC and CMP to rule out HELLP (?retained placental material) - c/o tender breats, will plan supportive care with breast pump and ice packs for now. Volume overload 10/10/2014 10/12/2014 Overview: Exam at the moment with mild hypervolemia, CXR with congestion though hypoinflated, BNP at OSH elevated as well as Ti (likely due to high LVEDP and low CPP) - Responded well to 40mg IV lasix, will continue for now (last dosed at 4am) - Will start afterload reduction with hydralazine and ISDN given (avoiding ACEi) - No role for ASA, aldactone just yet - Avoiding beta blockade given sinus tachycardia -->don't want to drop her CO, seems to be dependant on HR. - TTE today - f/u CK and Tt here. 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 Abnormal O'Howe glucose challenge test, antepartum 08/23/2014 02/19/2016 Overview: Normal 3 hr GTT - JV Advanced maternal age (AMA), 40 years or greater 07/10/2014 10/12/2014 Abnormal antibody titer 03/05/201410/03 Overview: Will need follow up in 4 weeks. Katarzyna Arroyo, Cervical high risk human pap illomavirus (HPV) DNA test positive 10/27/2013 10/12/2014 Gonorrhea 08/24/2013 10/12/2014 Controlled substance agreement signed 02/08/2013 10/12/2014 Overview: Urine tox screen completely negative for substances Feb 2013. 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 09/22/2010 10/12/2014 Diaphragmatic hernia without mention of obstruction or gangrene 09/22/2010 10/12/2014 Esophagitis, unspecified 09/22/201001/2015 Sprain of neck 08/20/2010 01/26/2013 Urticaria 05/10/2009 02/08/2013 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 013 Closed fracture of lateral malleolus 09/03/2008 02/08/2013 DEPRESSIVE DISORDER NEC 02/02/200710/03 Cough 02/01/2007 04/25/2008 Restless legs syndrome (RLS) 06/29/2006 02/08/2013 CHOLEDOCHAL CYST, 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 10/12/2014 CHOLELITHIASIS See also GALLBLADDER 08/26/2005 02/08/2013 Unspecified hemorrhoids with out mention of complication 04/25/2008 Overview: Hemorrhoids documented as of this encounter (statuses as of 12/29/2022) [facility]03[facility]30[facility]2016 History of Past illness Narrative* Problem Noted Date Diagnosed Date Resolved Date Chronic pain of left knee 07/03/2015 Pre-eclampsia added to pre-e xisting hypertension 11/17/2014 02/19/2016 10/10/2014 10/12/2014 Overview: Per patient report, had an uncomplicated , heightened care given maternal age - f/u CBC and CMP to rule out HELLP (?retained placental material) - c/o tender breats, will plan supportive care with breast pump and ice packs for now. Volume overload 10/10/2014 10/12/2014 Overview: Exam at the moment with mild hypervolemia, CXR with congestion though hypoinflated, BNP at OSH elevated as well as Ti (likely due to high LVEDP and low CPP) - Responded well to 40mg IV lasix, will continue for now (last dosed at 4am) - Will start afterload reduction with hydralazine and ISDN given (avoiding ACEi) - No role for ASA, aldactone just yet - Avoiding beta blockade given sinus tachycardia -->don't want to drop her CO, seems to be dependant on HR. - TTE today - f/u CK and Tt here. 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 Abnormal O'Howe glucose challenge test, antepartum 08/23/2014 02/19/2016 Overview: Normal 3 hr GTT - JV Advanced maternal age (AMA), 40 years or greater 07/10/2014 10/12/2014 Abnormal antibody titer 03/05/201410/03 Overview: Will need follow up in 4 weeks. Katarzyna Arroyo, Cervical high risk human pap illomavirus (HPV) DNA test positive 10/27/2013 10/12/2014 Gonorrhea 08/24/2013 10/12/2014 Controlled substance agreement signed 02/08/2013 10/12/2014 Overview: Urine tox screen completely negative for substances Feb 2013. 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 09/22/2010 10/12/2014 Diaphragmatic hernia without mention of obstruction or gangrene 09/22/2010 10/12/2014 Esophagitis, unspecified 09/22/201001/2015 Sprain of neck 08/20/2010 01/26/2013 Urticaria 05/10/2009 02/08/2013 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 013 Closed fracture of lateral malleolus 09/03/2008 02/08/2013 DEPRESSIVE DISORDER NEC 02/02/200710/03 Cough 02/01/2007 04/25/2008 Restless legs syndrome (RLS) 06/29/2006 02/08/2013 CHOLEDOCHAL CYST, 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 10/12/2014 CHOLELITHIASIS See also GALLBLADDER 08/26/2005 02/08/2013 Unspecified hemorrhoids with out mention of complication 04/25/2008 Overview: Hemorrhoids documented as of this encounter (statuses as of 12/29/2022) [facility]03[facility] History of Past illness Narrative* Problem Noted Date Diagnosed Date Resolved Date Chronic pain of left knee 07/03/2015 Pre-eclampsia added to pre-e xisting hypertension 11/17/2014 02/19/2016 10/10/2014 10/12/2014 Overview: Per patient report, had an uncomplicated , heightened care given maternal age - f/u CBC and CMP to rule out HELLP (?retained placental material) - c/o tender breats, will plan supportive care with breast pump and ice packs for now. Volume overload 10/10/2014 10/12/2014 Overview: Exam at the moment with mild hypervolemia, CXR with congestion though hypoinflated, BNP at OSH elevated as well as Ti (likely due to high LVEDP and low CPP) - Responded well to 40mg IV lasix, will continue for now (last dosed at 4am) - Will start afterload reduction with hydralazine and ISDN given (avoiding ACEi) - No role for ASA, aldactone just yet - Avoiding beta blockade given sinus tachycardia -->don't want to drop her CO, seems to be dependant on HR. - TTE today - f/u CK and Tt here. 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 Abnormal O'Howe glucose challenge test, antepartum 08/23/2014 02/19/2016 Overview: Normal 3 hr GTT - JV Advanced maternal age (AMA), 40 years or greater 07/10/2014 10/12/2014 Abnormal antibody titer 03/05/201410/03 Overview: Will need follow up in 4 weeks. Katarzyna Arroyo, DO Cervical high risk human pap illomavirus (HPV) DNA test positive 10/27/2013 10/12/2014 Gonorrhea 08/24/2013 10/12/2014 Controlled substance agreement signed 02/08/2013 10/12/2014 Overview: Urine tox screen completely negative for substances Feb 2013. 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 09/22/2010 10/12/2014 Diaphragmatic hernia without mention of obstruction or gangrene 09/22/2010 10/12/2014 Esophagitis, unspecified 09/22/201001/2015 Sprain of neck 08/20/2010 01/26/2013 Urticaria 05/10/2009 02/08/2013 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 013 Closed fracture of lateral malleolus 09/03/2008 02/08/2013 DEPRESSIVE DISORDER NEC 02/02/200710/03 Cough 02/01/2007 04/25/2008 Restless legs syndrome (RLS) 06/29/2006 02/08/2013 CHOLEDOCHAL CYST, 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 10/12/2014 CHOLELITHIASIS See also GALLBLADDER 08/26/2005 02/08/2013 Unspecified hemorrhoids with out mention of complication 04/25/2008 Overview: Hemorrhoids documented as of this encounter (statuses as of 12/30/2022) [facility]03[facility] History of Past illness Narrative* Problem Noted Date Diagnosed Date Resolved Date Chronic pain of left knee 07/03/2015 Pre-eclampsia added to pre-e xisting hypertension 11/17/2014 02/19/2016 10/10/2014 10/12/2014 Overview: Per patient report, had an uncomplicated , heightened care given maternal age - f/u CBC and CMP to rule out HELLP (?retained placental material) - c/o tender breats, will plan supportive care with breast pump and ice packs for now. Volume overload 10/10/2014 10/12/2014 Overview: Exam at the moment with mild hypervolemia, CXR with congestion though hypoinflated, BNP at OSH elevated as well as Ti (likely due to high LVEDP and low CPP) - Responded well to 40mg IV lasix, will continue for now (last dosed at 4am) - Will start afterload reduction with hydralazine and ISDN given (avoiding ACEi) - No role for ASA, aldactone just yet - Avoiding beta blockade given sinus tachycardia -->don't want to drop her CO, seems to be dependant on HR. - TTE today - f/u CK and Tt here. 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 Abnormal O'Howe glucose challenge test, antepartum 08/23/2014 02/19/2016 Overview: Normal 3 hr GTT - JV Advanced maternal age (AMA), 40 years or greater 07/10/2014 10/12/2014 Abnormal antibody titer 03/05/201410/03 Overview: Will need follow up in 4 weeks. Katarzyna Arroyo, DO Cervical high risk human pap illomavirus (HPV) DNA test positive 10/27/2013 10/12/2014 Gonorrhea 08/24/2013 10/12/2014 Controlled substance agreement signed 02/08/2013 10/12/2014 Overview: Urine tox screen completely negative for substances Feb 2013. 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 09/22/2010 10/12/2014 Diaphragmatic hernia without mention of obstruction or gangrene 09/22/2010 10/12/2014 Esophagitis, unspecified 09/22/201001/2015 Sprain of neck 08/20/2010 01/26/2013 Urticaria 05/10/2009 02/08/2013 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 013 Closed fracture of lateral malleolus 09/03/2008 02/08/2013 DEPRESSIVE DISORDER NEC 02/02/200710/03 Cough 02/01/2007 04/25/2008 Restless legs syndrome (RLS) 06/29/2006 02/08/2013 CHOLEDOCHAL CYST, 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 10/12/2014 CHOLELITHIASIS See also GALLBLADDER 08/26/2005 02/08/2013 Unspecified hemorrhoids with out mention of complication 04/25/2008 Overview: Hemorrhoids documented as of this encounter (statuses as of 02/07/2023) [facility]03[facility] History of Past illness Narrative* Problem Noted Date Diagnosed Date Resolved Date Chronic pain of left knee 07/03/2015 Pre-eclampsia added to pre-e xisting hypertension 11/17/2014 02/19/2016 10/10/2014 10/12/2014 Overview: Per patient report, had an uncomplicated , heightened care given maternal age - f/u CBC and CMP to rule out HELLP (?retained placental material) - c/o tender breats, will plan supportive care with breast pump and ice packs for now. Volume overload 10/10/2014 10/12/2014 Overview: Exam at the moment with mild hypervolemia, CXR with congestion though hypoinflated, BNP at OSH elevated as well as Ti (likely due to high LVEDP and low CPP) - Responded well to 40mg IV lasix, will continue for now (last dosed at 4am) - Will start afterload reduction with hydralazine and ISDN given (avoiding ACEi) - No role for ASA, aldactone just yet - Avoiding beta blockade given sinus tachycardia -->don't want to drop her CO, seems to be dependant on HR. - TTE today - f/u CK and Tt here. 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 Abnormal O'Howe glucose challenge test, antepartum 08/23/2014 02/19/2016 Overview: Normal 3 hr GTT - JV Advanced maternal age (AMA), 40 years or greater 07/10/2014 10/12/2014 Abnormal antibody titer 03/05/201410/03 Overview: Will need follow up in 4 weeks. Katarzyna Arroyo, Cervical high risk human pap illomavirus (HPV) DNA test positive 10/27/2013 10/12/2014 Gonorrhea 08/24/2013 10/12/2014 Controlled substance agreement signed 02/08/2013 10/12/2014 Overview: Urine tox screen completely negative for substances Feb 2013. 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 09/22/2010 10/12/2014 Diaphragmatic hernia without mention of obstruction or gangrene 09/22/2010 10/12/2014 Esophagitis, unspecified 09/22/201001/2015 Sprain of neck 08/20/2010 01/26/2013 Urticaria 05/10/2009 02/08/2013 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 013 Closed fracture of lateral malleolus 09/03/2008 02/08/2013 DEPRESSIVE DISORDER NEC 02/02/2007 07 Cough 02/01/2007 04/25/2008 Restless legs syndrome (RLS) 06/29/2006 02/08/2013 CHOLEDOCHAL CYST, 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 10/12/2014 CHOLELITHIASIS See also GALLBLADDER 08/26/2005 02/08/2013 Unspecified hemorrhoids with out mention of complication 04/25/2008 Overview: Hemorrhoids documented as of this encounter (statuses as of 02/07/2023) [facility]03[facility] History of Past illness Narrative* Problem Noted Date Diagnosed Date Resolved Date Chronic pain of left knee 07/03/2015 Pre-eclampsia added to pre-e xisting hypertension 11/17/2014 02/19/2016 10/10/2014 10/12/2014 Overview: Per patient report, had an uncomplicated , heightened care given maternal age - f/u CBC and CMP to rule out HELLP (?retained placental material) - c/o tender breats, will plan supportive care with breast pump and ice packs for now. Volume overload 10/10/2014 10/12/2014 Overview: Exam at the moment with mild hypervolemia, CXR with congestion though hypoinflated, BNP at OSH elevated as well as Ti (likely due to high LVEDP and low CPP) - Responded well to 40mg IV lasix, will continue for now (last dosed at 4am) - Will start afterload reduction with hydralazine and ISDN given (avoiding ACEi) - No role for ASA, aldactone just yet - Avoiding beta blockade given sinus tachycardia -->don't want to drop her CO, seems to be dependant on HR. - TTE today - f/u CK and Tt here. 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 Abnormal O'Howe glucose challenge test, antepartum 08/23/2014 02/19/2016 Overview: Normal 3 hr GTT - JV Advanced maternal age (AMA), 40 years or greater 07/10/2014 10/12/2014 Abnormal antibody titer 03/05/201410/03 Overview: Will need follow up in 4 weeks. Katarzyna Arroyo, Cervical high risk human pap illomavirus (HPV) DNA test positive 10/27/2013 10/12/2014 Gonorrhea 08/24/2013 10/12/2014 Controlled substance agreement signed 02/08/2013 10/12/2014 Overview: Urine tox screen completely negative for substances Feb 2013. 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 09/22/2010 10/12/2014 Diaphragmatic hernia without mention of obstruction or gangrene 09/22/2010 10/12/2014 Esophagitis, unspecified 09/22/201001/2015 Sprain of neck 08/20/2010 01/26/2013 Urticaria 05/10/2009 02/08/2013 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 013 Closed fracture of lateral malleolus 09/03/2008 02/08/2013 DEPRESSIVE DISORDER NEC 02/02/200710/03 Cough 02/01/2007 04/25/2008 Restless legs syndrome (RLS) 06/29/2006 02/08/2013 CHOLEDOCHAL CYST, 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 10/12/2014 CHOLELITHIASIS See also GALLBLADDER 08/26/2005 02/08/2013 Unspecified hemorrhoids with out mention of complication 04/25/2008 Overview: Hemorrhoids documented as of this encounter (statuses as of 02/07/2023) [facility] History of Past illness Narrative* Problem Noted Date Diagnosed Date Resolved Date Chronic pain of left knee 07/03/2015 Pre-eclampsia added to pre-e xisting hypertension 11/17/2014 02/19/2016 10/10/2014 10/12/2014 Overview: Per patient report, had an uncomplicated , heightened care given maternal age - f/u CBC and CMP to rule out HELLP (?retained placental material) - c/o tender breats, will plan supportive care with breast pump and ice packs for now. Volume overload 10/10/2014 10/12/2014 Overview: Exam at the moment with mild hypervolemia, CXR with congestion though hypoinflated, BNP at OSH elevated as well as Ti (likely due to high LVEDP and low CPP) - Responded well to 40mg IV lasix, will continue for now (last dosed at 4am) - Will start afterload reduction with hydralazine and ISDN given (avoiding ACEi) - No role for ASA, aldactone just yet - Avoiding beta blockade given sinus tachycardia -->don't want to drop her CO, seems to be dependant on HR. - TTE today - f/u CK and Tt here. 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 Abnormal O'Howe glucose challenge test, antepartum 08/23/2014 02/19/2016 Overview: Normal 3 hr GTT - JV Advanced maternal age (AMA), 40 years or greater 07/10/2014 10/12/2014 Abnormal antibody titer 03/05/201410/03 Overview: Will need follow up in 4 weeks. Katarzyna Arroyo, DO Cervical high risk human pap illomavirus (HPV) DNA test positive 10/27/2013 10/12/2014 Gonorrhea 08/24/2013 10/12/2014 Controlled substance agreement signed 02/08/2013 10/12/2014 Overview: Urine tox screen completely negative for substances Feb 2013. 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 09/22/2010 10/12/2014 Diaphragmatic hernia without mention of obstruction or gangrene 09/22/2010 10/12/2014 Esophagitis, unspecified 09/22/201001/2015 Sprain of neck 08/20/2010 01/26/2013 Urticaria 05/10/2009 02/08/2013 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 013 Closed fracture of lateral malleolus 09/03/2008 02/08/2013 DEPRESSIVE DISORDER NEC 02/02/200710/03 Cough 02/01/2007 04/25/2008 Restless legs syndrome (RLS) 06/29/2006 02/08/2013 CHOLEDOCHAL CYST, 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 10/12/2014 CHOLELITHIASIS See also GALLBLADDER 08/26/2005 02/08/2013 Unspecified hemorrhoids with out mention of complication 04/25/2008 Overview: Hemorrhoids documented as of this encounter (statuses as of 02/07/2023) [facility] History of Past illness Narrative* Problem Noted Date Diagnosed Date Resolved Date Chronic pain of left knee 07/03/2015 Pre-eclampsia added to pre-e xisting hypertension 11/17/2014 02/19/2016 10/10/2014 10/12/2014 Overview: Per patient report, had an uncomplicated , heightened care given maternal age - f/u CBC and CMP to rule out HELLP (?retained placental material) - c/o tender breats, will plan supportive care with breast pump and ice packs for now. Volume overload 10/10/2014 10/12/2014 Overview: Exam at the moment with mild hypervolemia, CXR with congestion though hypoinflated, BNP at OSH elevated as well as Ti (likely due to high LVEDP and low CPP) - Responded well to 40mg IV lasix, will continue for now (last dosed at 4am) - Will start afterload reduction with hydralazine and ISDN given (avoiding ACEi) - No role for ASA, aldactone just yet - Avoiding beta blockade given sinus tachycardia -->don't want to drop her CO, seems to be dependant on HR. - TTE today - f/u CK and Tt here. 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 Abnormal O'Howe glucose challenge test, antepartum 08/23/2014 02/19/2016 Overview: Normal 3 hr GTT - JV Advanced maternal age (AMA), 40 years or greater 07/10/2014 10/12/2014 Abnormal antibody titer 03/05/201410/03 Overview: Will need follow up in 4 weeks. Katarzyna Arroyo, DO Cervical high risk human pap illomavirus (HPV) DNA test positive 10/27/2013 10/12/2014 Gonorrhea 08/24/2013 10/12/2014 Controlled substance agreement signed 02/08/2013 10/12/2014 Overview: Urine tox screen completely negative for substances Feb 2013. 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 09/22/2010 10/12/2014 Diaphragmatic hernia without mention of obstruction or gangrene 09/22/2010 10/12/2014 Esophagitis, unspecified 09/22/201001/2015 Sprain of neck 08/20/2010 01/26/2013 Urticaria 05/10/2009 02/08/2013 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 013 Closed fracture of lateral malleolus 09/03/2008 02/08/2013 DEPRESSIVE DISORDER NEC 02/02/200710/03 Cough 02/01/2007 04/25/2008 Restless legs syndrome (RLS) 06/29/2006 02/08/2013 CHOLEDOCHAL CYST, 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 10/12/2014 CHOLELITHIASIS See also GALLBLADDER 08/26/2005 02/08/2013 Unspecified hemorrhoids with out mention of complication 04/25/2008 Overview: Hemorrhoids documented as of this encounter (statuses as of 02/07/2023) [facility] History of Past illness Narrative* Problem Noted Date Diagnosed Date Resolved Date Chronic pain of left knee 07/03/2015 Pre-eclampsia added to pre-e xisting hypertension 11/17/2014 02/19/2016 10/10/2014 10/12/2014 Overview: Per patient report, had an uncomplicated , heightened care given maternal age - f/u CBC and CMP to rule out HELLP (?retained placental material) - c/o tender breats, will plan supportive care with breast pump and ice packs for now. Volume overload 10/10/2014 10/12/2014 Overview: Exam at the moment with mild hypervolemia, CXR with congestion though hypoinflated, BNP at OSH elevated as well as Ti (likely due to high LVEDP and low CPP) - Responded well to 40mg IV lasix, will continue for now (last dosed at 4am) - Will start afterload reduction with hydralazine and ISDN given (avoiding ACEi) - No role for ASA, aldactone just yet - Avoiding beta blockade given sinus tachycardia -->don't want to drop her CO, seems to be dependant on HR. - TTE today - f/u CK and Tt here. 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 Abnormal O'Howe glucose challenge test, antepartum 08/23/2014 02/19/2016 Overview: Normal 3 hr GTT - JV Advanced maternal age (AMA), 40 years or greater 07/10/2014 10/12/2014 Abnormal antibody titer 03/05/201410/03 Overview: Will need follow up in 4 weeks. Katarzyna Arroyo, DO Cervical high risk human pap illomavirus (HPV) DNA test positive 10/27/2013 10/12/2014 Gonorrhea 08/24/2013 10/12/2014 Controlled substance agreement signed 02/08/2013 10/12/2014 Overview: Urine tox screen completely negative for substances Feb 2013. 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 09/22/2010 10/12/2014 Diaphragmatic hernia without mention of obstruction or gangrene 09/22/2010 10/12/2014 Esophagitis, unspecified 09/22/201001/2015 Sprain of neck 08/20/2010 01/26/2013 Urticaria 05/10/2009 02/08/2013 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 013 Closed fracture of lateral malleolus 09/03/2008 02/08/2013 DEPRESSIVE DISORDER NEC 02/02/200710/03 Cough 02/01/2007 04/25/2008 Restless legs syndrome (RLS) 06/29/2006 02/08/2013 CHOLEDOCHAL CYST, 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 10/12/2014 CHOLELITHIASIS See also GALLBLADDER 08/26/2005 02/08/2013 Unspecified hemorrhoids with out mention of complication 04/25/2008 Overview: Hemorrhoids documented as of this encounter (statuses as of 02/07/2023) [facility]03-30[facility]2016 History of Past illness Narrative* Problem Noted Date Diagnosed Date Resolved Date Chronic pain of left knee 07/03/2015 Pre-eclampsia added to pre-e xisting hypertension 11/17/2014 02/19/2016 10/10/2014 10/12/2014 Overview: Per patient report, had an uncomplicated , heightened care given maternal age - f/u CBC and CMP to rule out HELLP (?retained placental material) - c/o tender breats, will plan supportive care with breast pump and ice packs for now. Volume overload 10/10/2014 10/12/2014 Overview: Exam at the moment with mild hypervolemia, CXR with congestion though hypoinflated, BNP at OSH elevated as well as Ti (likely due to high LVEDP and low CPP) - Responded well to 40mg IV lasix, will continue for now (last dosed at 4am) - Will start afterload reduction with hydralazine and ISDN given (avoiding ACEi) - No role for ASA, aldactone just yet - Avoiding beta blockade given sinus tachycardia -->don't want to drop her CO, seems to be dependant on HR. - TTE today - f/u CK and Tt here. 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 Abnormal O'Howe glucose challenge test, antepartum 08/23/2014 02/19/2016 Overview: Normal 3 hr GTT - JV Advanced maternal age (AMA), 40 years or greater 07/10/2014 10/12/2014 Abnormal antibody titer 03/05/201410/03 Overview: Will need follow up in 4 weeks. Katarzyna Arroyo, Cervical high risk human pap illomavirus (HPV) DNA test positive 10/27/2013 10/12/2014 Gonorrhea 08/24/2013 10/12/2014 Controlled substance agreement signed 02/08/2013 10/12/2014 Overview: Urine tox screen completely negative for substances Feb 2013. 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 09/22/2010 10/12/2014 Diaphragmatic hernia without mention of obstruction or gangrene 09/22/2010 10/12/2014 Esophagitis, unspecified 09/22/201001/2015 Sprain of neck 08/20/2010 01/26/2013 Urticaria 05/10/2009 02/08/2013 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 013 Closed fracture of lateral malleolus 09/03/2008 02/08/2013 DEPRESSIVE DISORDER NEC 02/02/2007 07/ Cough 02/01/2007 04/25/2008 Restless legs syndrome (RLS) 06/29/2006 02/08/2013 CHOLEDOCHAL CYST, 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 10/12/2014 CHOLELITHIASIS See also GALLBLADDER 08/26/2005 02/08/2013 Unspecified hemorrhoids with out mention of complication 04/25/2008 Overview: Hemorrhoids documented as of this encounter (statuses as of 02/11/2023) [facility]03[facility] History of Past illness Narrative* Problem Noted Date Diagnosed Date Resolved Date Chronic pain of left knee 07/03/2015 Pre-eclampsia added to pre-e xisting hypertension 11/17/2014 02/19/2016 10/10/2014 10/12/2014 Overview: Per patient report, had an uncomplicated , heightened care given maternal age - f/u CBC and CMP to rule out HELLP (?retained placental material) - c/o tender breats, will plan supportive care with breast pump and ice packs for now. Volume overload 10/10/2014 10/12/2014 Overview: Exam at the moment with mild hypervolemia, CXR with congestion though hypoinflated, BNP at OSH elevated as well as Ti (likely due to high LVEDP and low CPP) - Responded well to 40mg IV lasix, will continue for now (last dosed at 4am) - Will start afterload reduction with hydralazine and ISDN given (avoiding ACEi) - No role for ASA, aldactone just yet - Avoiding beta blockade given sinus tachycardia -->don't want to drop her CO, seems to be dependant on HR. - TTE today - f/u CK and Tt here. 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 Abnormal O'Howe glucose challenge test, antepartum 08/23/2014 02/19/2016 Overview: Normal 3 hr GTT - JV Advanced maternal age (AMA), 40 years or greater 07/10/2014 10/12/2014 Abnormal antibody titer 03/05/201410/03 Overview: Will need follow up in 4 weeks. Katarzyna Arryoo, Cervical high risk human pap illomavirus (HPV) DNA test positive 10/27/2013 10/12/2014 Gonorrhea 08/24/2013 10/12/2014 Controlled substance agreement signed 02/08/2013 10/12/2014 Overview: Urine tox screen completely negative for substances Feb 2013. 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 09/22/2010 10/12/2014 Diaphragmatic hernia without mention of obstruction or gangrene 09/22/2010 10/12/2014 Esophagitis, unspecified 09/22/201001/2015 Sprain of neck 08/20/2010 01/26/2013 Urticaria 05/10/2009 02/08/2013 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 013 Closed fracture of lateral malleolus 09/03/2008 02/08/2013 DEPRESSIVE DISORDER NEC 02/02/200710/03 Cough 02/01/2007 04/25/2008 Restless legs syndrome (RLS) 06/29/2006 02/08/2013 CHOLEDOCHAL CYST, 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 10/12/2014 CHOLELITHIASIS See also GALLBLADDER 08/26/2005 02/08/2013 Unspecified hemorrhoids with out mention of complication 04/25/2008 Overview: Hemorrhoids documented as of this encounter (statuses as of 02/16/2023) [facility]03[facility] History of Past illness Narrative* Problem Noted Date Diagnosed Date Resolved Date Chronic pain of left knee 07/03/2015 Pre-eclampsia added to pre-e xisting hypertension 11/17/2014 02/19/2016 10/10/2014 10/12/2014 Overview: Per patient report, had an uncomplicated , heightened care given maternal age - f/u CBC and CMP to rule out HELLP (?retained placental material) - c/o tender breats, will plan supportive care with breast pump and ice packs for now. Volume overload 10/10/2014 10/12/2014 Overview: Exam at the moment with mild hypervolemia, CXR with congestion though hypoinflated, BNP at OSH elevated as well as Ti (likely due to high LVEDP and low CPP) - Responded well to 40mg IV lasix, will continue for now (last dosed at 4am) - Will start afterload reduction with hydralazine and ISDN given (avoiding ACEi) - No role for ASA, aldactone just yet - Avoiding beta blockade given sinus tachycardia -->don't want to drop her CO, seems to be dependant on HR. - TTE today - f/u CK and Tt here. 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 Abnormal O'Howe glucose challenge test, antepartum 08/23/2014 02/19/2016 Overview: Normal 3 hr GTT - JV Advanced maternal age (AMA), 40 years or greater 07/10/2014 10/12/2014 Abnormal antibody titer 03/05/201410/03 Overview: Will need follow up in 4 weeks. Katarzyna Arroyo, DO Cervical high risk human pap illomavirus (HPV) DNA test positive 10/27/2013 10/12/2014 Gonorrhea 08/24/2013 10/12/2014 Controlled substance agreement signed 02/08/2013 10/12/2014 Overview: Urine tox screen completely negative for substances Feb 2013. 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 09/22/2010 10/12/2014 Diaphragmatic hernia without mention of obstruction or gangrene 09/22/2010 10/12/2014 Esophagitis, unspecified 09/22/201001/2015 Sprain of neck 08/20/2010 01/26/2013 Urticaria 05/10/2009 02/08/2013 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 013 Closed fracture of lateral malleolus 09/03/2008 02/08/2013 DEPRESSIVE DISORDER NEC 02/02/200710/03 Cough 02/01/2007 04/25/2008 Restless legs syndrome (RLS) 06/29/2006 02/08/2013 CHOLEDOCHAL CYST, 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 10/12/2014 CHOLELITHIASIS See also GALLBLADDER 08/26/2005 02/08/2013 Unspecified hemorrhoids with out mention of complication 04/25/2008 Overview: Hemorrhoids documented as of this encounter (statuses as of 02/21/2023) [facility]03[facility]2016 History of Past illness Narrative* Problem Noted Date Diagnosed Date Resolved Date Chronic pain of left knee 07/03/2015 Pre-eclampsia added to pre-e xisting hypertension 11/17/2014 02/19/2016 10/10/2014 10/12/2014 Overview: Per patient report, had an uncomplicated , heightened care given maternal age - f/u CBC and CMP to rule out HELLP (?retained placental material) - c/o tender breats, will plan supportive care with breast pump and ice packs for now. Volume overload 10/10/2014 10/12/2014 Overview: Exam at the moment with mild hypervolemia, CXR with congestion though hypoinflated, BNP at OSH elevated as well as Ti (likely due to high LVEDP and low CPP) - Responded well to 40mg IV lasix, will continue for now (last dosed at 4am) - Will start afterload reduction with hydralazine and ISDN given (avoiding ACEi) - No role for ASA, aldactone just yet - Avoiding beta blockade given sinus tachycardia -->don't want to drop her CO, seems to be dependant on HR. - TTE today - f/u CK and Tt here. 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 Abnormal O'Howe glucose challenge test, antepartum 08/23/2014 02/19/2016 Overview: Normal 3 hr GTT - JV Advanced maternal age (AMA), 40 years or greater 07/10/2014 10/12/2014 Abnormal antibody titer 03/05/201410/03 Overview: Will need follow up in 4 weeks. Katarzyna Arroyo, DO Cervical high risk human pap illomavirus (HPV) DNA test positive 10/27/2013 10/12/2014 Gonorrhea 08/24/2013 10/12/2014 Controlled substance agreement signed 02/08/2013 10/12/2014 Overview: Urine tox screen completely negative for substances Feb 2013. 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 09/22/2010 10/12/2014 Diaphragmatic hernia without mention of obstruction or gangrene 09/22/2010 10/12/2014 Esophagitis, unspecified 09/22/201001/2015 Sprain of neck 08/20/2010 01/26/2013 Urticaria 05/10/2009 02/08/2013 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 013 Closed fracture of lateral malleolus 09/03/2008 02/08/2013 DEPRESSIVE DISORDER NEC 02/02/200710/03 Cough 02/01/2007 04/25/2008 Restless legs syndrome (RLS) 06/29/2006 02/08/2013 CHOLEDOCHAL CYST, 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 10/12/2014 CHOLELITHIASIS See also GALLBLADDER 08/26/2005 02/08/2013 Unspecified hemorrhoids with out mention of complication 04/25/2008 Overview: Hemorrhoids documented as of this encounter (statuses as of 03/01/2023) [facility]03[facility] History of Past illness Narrative* Problem Noted Date Diagnosed Date Resolved Date Chronic pain of left knee 07/03/2015 Pre-eclampsia added to pre-e xisting hypertension 11/17/2014 02/19/2016 10/10/2014 10/12/2014 Overview: Per patient report, had an uncomplicated , heightened care given maternal age - f/u CBC and CMP to rule out HELLP (?retained placental material) - c/o tender breats, will plan supportive care with breast pump and ice packs for now. Volume overload 10/10/2014 10/12/2014 Overview: Exam at the moment with mild hypervolemia, CXR with congestion though hypoinflated, BNP at OSH elevated as well as Ti (likely due to high LVEDP and low CPP) - Responded well to 40mg IV lasix, will continue for now (last dosed at 4am) - Will start afterload reduction with hydralazine and ISDN given (avoiding ACEi) - No role for ASA, aldactone just yet - Avoiding beta blockade given sinus tachycardia -->don't want to drop her CO, seems to be dependant on HR. - TTE today - f/u CK and Tt here. 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 Abnormal O'Howe glucose challenge test, antepartum 08/23/2014 02/19/2016 Overview: Normal 3 hr GTT - JV Advanced maternal age (AMA), 40 years or greater 07/10/2014 10/12/2014 Abnormal antibody titer 03/05/201410/03 Overview: Will need follow up in 4 weeks. Katarzyna Arroyo, DO Cervical high risk human pap illomavirus (HPV) DNA test positive 10/27/2013 10/12/2014 Gonorrhea 08/24/2013 10/12/2014 Controlled substance agreement signed 02/08/2013 10/12/2014 Overview: Urine tox screen completely negative for substances Feb 2013. 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 09/22/2010 10/12/2014 Diaphragmatic hernia without mention of obstruction or gangrene 09/22/2010 10/12/2014 Esophagitis, unspecified 09/22/201001/2015 Sprain of neck 08/20/2010 01/26/2013 Urticaria 05/10/2009 02/08/2013 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 013 Closed fracture of lateral malleolus 09/03/2008 02/08/2013 DEPRESSIVE DISORDER NEC 02/02/200710/03 Cough 02/01/2007 04/25/2008 Restless legs syndrome (RLS) 06/29/2006 02/08/2013 CHOLEDOCHAL CYST, 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 10/12/2014 CHOLELITHIASIS See also GALLBLADDER 08/26/2005 02/08/2013 Unspecified hemorrhoids with out mention of complication 04/25/2008 Overview: Hemorrhoids documented as of this encounter (statuses as of 03/02/2023) [facility]03[facility] History of Past illness Narrative* Problem Noted Date Diagnosed Date Resolved Date Chronic pain of left knee 07/03/2015 Pre-eclampsia added to pre-e xisting hypertension 11/17/2014 02/19/2016 10/10/2014 10/12/2014 Overview: Per patient report, had an uncomplicated , heightened care given maternal age - f/u CBC and CMP to rule out HELLP (?retained placental material) - c/o tender breats, will plan supportive care with breast pump and ice packs for now. Volume overload 10/10/2014 10/12/2014 Overview: Exam at the moment with mild hypervolemia, CXR with congestion though hypoinflated, BNP at OSH elevated as well as Ti (likely due to high LVEDP and low CPP) - Responded well to 40mg IV lasix, will continue for now (last dosed at 4am) - Will start afterload reduction with hydralazine and ISDN given (avoiding ACEi) - No role for ASA, aldactone just yet - Avoiding beta blockade given sinus tachycardia -->don't want to drop her CO, seems to be dependant on HR. - TTE today - f/u CK and Tt here. 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 Abnormal O'Howe glucose challenge test, antepartum 08/23/2014 02/19/2016 Overview: Normal 3 hr GTT - JV Advanced maternal age (AMA), 40 years or greater 07/10/2014 10/12/2014 Abnormal antibody titer 03/05/201410/03 Overview: Will need follow up in 4 weeks. Katarzyna Arroyo, DO Cervical high risk human pap illomavirus (HPV) DNA test positive 10/27/2013 10/12/2014 Gonorrhea 08/24/2013 10/12/2014 Controlled substance agreement signed 02/08/2013 10/12/2014 Overview: Urine tox screen completely negative for substances Feb 2013. 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 09/22/2010 10/12/2014 Diaphragmatic hernia without mention of obstruction or gangrene 09/22/2010 10/12/2014 Esophagitis, unspecified 09/22/201001/2015 Sprain of neck 08/20/2010 01/26/2013 Urticaria 05/10/2009 02/08/2013 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 013 Closed fracture of lateral malleolus 09/03/2008 02/08/2013 DEPRESSIVE DISORDER NEC 02/02/200710/03 Cough 02/01/2007 04/25/2008 Restless legs syndrome (RLS) 06/29/2006 02/08/2013 CHOLEDOCHAL CYST, 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 10/12/2014 CHOLELITHIASIS See also GALLBLADDER 08/26/2005 02/08/2013 Unspecified hemorrhoids with out mention of complication 04/25/2008 Overview: Hemorrhoids documented as of this encounter (statuses as of 05/14/2023) [facility] History of Past illness Narrative* Problem Noted Date Diagnosed Date Resolved Date Chronic pain of left knee 07/03/2015 Pre-eclampsia added to pre-e xisting hypertension 11/17/2014 02/19/2016 10/10/2014 10/12/2014 Overview: Per patient report, had an uncomplicated , heightened care given maternal age - f/u CBC and CMP to rule out HELLP (?retained placental material) - c/o tender breats, will plan supportive care with breast pump and ice packs for now. Volume overload 10/10/2014 10/12/2014 Overview: Exam at the moment with mild hypervolemia, CXR with congestion though hypoinflated, BNP at OSH elevated as well as Ti (likely due to high LVEDP and low CPP) - Responded well to 40mg IV lasix, will continue for now (last dosed at 4am) - Will start afterload reduction with hydralazine and ISDN given (avoiding ACEi) - No role for ASA, aldactone just yet - Avoiding beta blockade given sinus tachycardia -->don't want to drop her CO, seems to be dependant on HR. - TTE today - f/u CK and Tt here. 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 Abnormal O'Howe glucose challenge test, antepartum 08/23/2014 02/19/2016 Overview: Normal 3 hr GTT - JV Advanced maternal age (AMA), 40 years or greater 07/10/2014 10/12/2014 Abnormal antibody titer 03/05/201410/03 Overview: Will need follow up in 4 weeks. Katarzyna Arroyo, Cervical high risk human pap illomavirus (HPV) DNA test positive 10/27/2013 10/12/2014 Gonorrhea 08/24/2013 10/12/2014 Controlled substance agreement signed 02/08/2013 10/12/2014 Overview: Urine tox screen completely negative for substances Feb 2013. 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 09/22/2010 10/12/2014 Diaphragmatic hernia without mention of obstruction or gangrene 09/22/2010 10/12/2014 Esophagitis, unspecified 09/22/201001/2015 Sprain of neck 08/20/2010 01/26/2013 Urticaria 05/10/2009 02/08/2013 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 013 Closed fracture of lateral malleolus 09/03/2008 02/08/2013 DEPRESSIVE DISORDER NEC 02/02/200710/03 Cough 02/01/2007 04/25/2008 Restless legs syndrome (RLS) 06/29/2006 02/08/2013 CHOLEDOCHAL CYST, 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 10/12/2014 CHOLELITHIASIS See also GALLBLADDER 08/26/2005 02/08/2013 Unspecified hemorrhoids with out mention of complication 04/25/2008 Overview: Hemorrhoids documented as of this encounter (statuses as of 05/14/2023) [facility] History of Past illness Narrative* Problem Noted Date Diagnosed Date Resolved Date Chronic pain of left knee 07/03/2015 Pre-eclampsia added to pre-e xisting hypertension 11/17/2014 02/19/2016 10/10/2014 10/12/2014 Overview: Per patient report, had an uncomplicated , heightened care given maternal age - f/u CBC and CMP to rule out HELLP (?retained placental material) - c/o tender breats, will plan supportive care with breast pump and ice packs for now. Volume overload 10/10/2014 10/12/2014 Overview: Exam at the moment with mild hypervolemia, CXR with congestion though hypoinflated, BNP at OSH elevated as well as Ti (likely due to high LVEDP and low CPP) - Responded well to 40mg IV lasix, will continue for now (last dosed at 4am) - Will start afterload reduction with hydralazine and ISDN given (avoiding ACEi) - No role for ASA, aldactone just yet - Avoiding beta blockade given sinus tachycardia -->don't want to drop her CO, seems to be dependant on HR. - TTE today - f/u CK and Tt here. 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 Abnormal O'Howe glucose challenge test, antepartum 08/23/2014 02/19/2016 Overview: Normal 3 hr GTT - JV Advanced maternal age (AMA), 40 years or greater 07/10/2014 10/12/2014 Abnormal antibody titer 03/05/201410/03 Overview: Will need follow up in 4 weeks. Katarzyna Arroyo, Cervical high risk human pap illomavirus (HPV) DNA test positive 10/27/2013 10/12/2014 Gonorrhea 08/24/2013 10/12/2014 Controlled substance agreement signed 02/08/2013 10/12/2014 Overview: Urine tox screen completely negative for substances Feb 2013. 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 09/22/2010 10/12/2014 Diaphragmatic hernia without mention of obstruction or gangrene 09/22/2010 10/12/2014 Esophagitis, unspecified 09/22/201001/2015 Sprain of neck 08/20/2010 01/26/2013 Urticaria 05/10/2009 02/08/2013 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 013 Closed fracture of lateral malleolus 09/03/2008 02/08/2013 DEPRESSIVE DISORDER NEC 02/02/200710/03 Cough 02/01/2007 04/25/2008 Restless legs syndrome (RLS) 06/29/2006 02/08/2013 CHOLEDOCHAL CYST, 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 10/12/2014 CHOLELITHIASIS See also GALLBLADDER 08/26/2005 02/08/2013 Unspecified hemorrhoids with out mention of complication 04/25/2008 Overview: Hemorrhoids documented as of this encounter (statuses as of 05/17/2023) [facility]03-30[facility]2016 History of Past illness Narrative* Problem Noted Date Diagnosed Date Resolved Date Chronic pain of left knee 07/03/2015 Pre-eclampsia added to pre-e xisting hypertension 11/17/2014 02/19/2016 10/10/2014 10/12/2014 Overview: Per patient report, had an uncomplicated , heightened care given maternal age - f/u CBC and CMP to rule out HELLP (?retained placental material) - c/o tender breats, will plan supportive care with breast pump and ice packs for now. Volume overload 10/10/2014 10/12/2014 Overview: Exam at the moment with mild hypervolemia, CXR with congestion though hypoinflated, BNP at OSH elevated as well as Ti (likely due to high LVEDP and low CPP) - Responded well to 40mg IV lasix, will continue for now (last dosed at 4am) - Will start afterload reduction with hydralazine and ISDN given (avoiding ACEi) - No role for ASA, aldactone just yet - Avoiding beta blockade given sinus tachycardia -->don't want to drop her CO, seems to be dependant on HR. - TTE today - f/u CK and Tt here. 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 Abnormal O'Howe glucose challenge test, antepartum 08/23/2014 02/19/2016 Overview: Normal 3 hr GTT - JV Advanced maternal age (AMA), 40 years or greater 07/10/2014 10/12/2014 Abnormal antibody titer 03/05/201410/03 Overview: Will need follow up in 4 weeks. Katarzyna Arroyo, Cervical high risk human pap illomavirus (HPV) DNA test positive 10/27/2013 10/12/2014 Gonorrhea 08/24/2013 10/12/2014 Controlled substance agreement signed 02/08/2013 10/12/2014 Overview: Urine tox screen completely negative for substances Feb 2013. 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 09/22/2010 10/12/2014 Diaphragmatic hernia without mention of obstruction or gangrene 09/22/2010 10/12/2014 Esophagitis, unspecified 09/22/201001/2015 Sprain of neck 08/20/2010 01/26/2013 Urticaria 05/10/2009 02/08/2013 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 013 Closed fracture of lateral malleolus 09/03/2008 02/08/2013 DEPRESSIVE DISORDER NEC 02/02/200710/03 Cough 02/01/2007 04/25/2008 Restless legs syndrome (RLS) 06/29/2006 02/08/2013 CHOLEDOCHAL CYST, 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 10/12/2014 CHOLELITHIASIS See also GALLBLADDER 08/26/2005 02/08/2013 Unspecified hemorrhoids with out mention of complication 04/25/2008 Overview: Hemorrhoids documented as of this encounter (statuses as of 05/27/2023) [facility]03[facility] History of Past illness Narrative* Problem Noted Date Diagnosed Date Resolved Date Chronic pain of left knee 07/03/2015 Pre-eclampsia added to pre-e xisting hypertension 11/17/2014 02/19/2016 10/10/2014 10/12/2014 Overview: Per patient report, had an uncomplicated , heightened care given maternal age - f/u CBC and CMP to rule out HELLP (?retained placental material) - c/o tender breats, will plan supportive care with breast pump and ice packs for now. Volume overload 10/10/2014 10/12/2014 Overview: Exam at the moment with mild hypervolemia, CXR with congestion though hypoinflated, BNP at OSH elevated as well as Ti (likely due to high LVEDP and low CPP) - Responded well to 40mg IV lasix, will continue for now (last dosed at 4am) - Will start afterload reduction with hydralazine and ISDN given (avoiding ACEi) - No role for ASA, aldactone just yet - Avoiding beta blockade given sinus tachycardia -->don't want to drop her CO, seems to be dependant on HR. - TTE today - f/u CK and Tt here. 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 Abnormal O'Howe glucose challenge test, antepartum 08/23/2014 02/19/2016 Overview: Normal 3 hr GTT - JV Advanced maternal age (AMA), 40 years or greater 07/10/2014 10/12/2014 Abnormal antibody titer 03/05/201410/03 Overview: Will need follow up in 4 weeks. Katarzyna Arroyo, DO Cervical high risk human pap illomavirus (HPV) DNA test positive 10/27/2013 10/12/2014 Gonorrhea 08/24/2013 10/12/2014 Controlled substance agreement signed 02/08/2013 10/12/2014 Overview: Urine tox screen completely negative for substances Feb 2013. 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 09/22/2010 10/12/2014 Diaphragmatic hernia without mention of obstruction or gangrene 09/22/2010 10/12/2014 Esophagitis, unspecified 09/22/201001/2015 Sprain of neck 08/20/2010 01/26/2013 Urticaria 05/10/2009 02/08/2013 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 013 Closed fracture of lateral malleolus 09/03/2008 02/08/2013 DEPRESSIVE DISORDER NEC 02/02/200710/03 Cough 02/01/2007 04/25/2008 Restless legs syndrome (RLS) 06/29/2006 02/08/2013 CHOLEDOCHAL CYST, 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 10/12/2014 CHOLELITHIASIS See also GALLBLADDER 08/26/2005 02/08/2013 Unspecified hemorrhoids with out mention of complication 04/25/2008 Overview: Hemorrhoids documented as of this encounter (statuses as of 06/07/2023) [facility]03[facility]2016 History of Past illness Narrative* Problem Noted Date Diagnosed Date Resolved Date Chronic pain of left knee 07/03/2015 Pre-eclampsia added to pre-e xisting hypertension 11/17/2014 02/19/2016 10/10/2014 10/12/2014 Overview: Per patient report, had an uncomplicated , heightened care given maternal age - f/u CBC and CMP to rule out HELLP (?retained placental material) - c/o tender breats, will plan supportive care with breast pump and ice packs for now. Volume overload 10/10/2014 10/12/2014 Overview: Exam at the moment with mild hypervolemia, CXR with congestion though hypoinflated, BNP at OSH elevated as well as Ti (likely due to high LVEDP and low CPP) - Responded well to 40mg IV lasix, will continue for now (last dosed at 4am) - Will start afterload reduction with hydralazine and ISDN given (avoiding ACEi) - No role for ASA, aldactone just yet - Avoiding beta blockade given sinus tachycardia -->don't want to drop her CO, seems to be dependant on HR. - TTE today - f/u CK and Tt here. 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 Abnormal O'Howe glucose challenge test, antepartum 08/23/2014 02/19/2016 Overview: Normal 3 hr GTT - JV Advanced maternal age (AMA), 40 years or greater 07/10/2014 10/12/2014 Abnormal antibody titer 03/05/201410/03 Overview: Will need follow up in 4 weeks. Katarzyna Arroyo, DO Cervical high risk human pap illomavirus (HPV) DNA test positive 10/27/2013 10/12/2014 Gonorrhea 08/24/2013 10/12/2014 Controlled substance agreement signed 02/08/2013 10/12/2014 Overview: Urine tox screen completely negative for substances Feb 2013. 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 09/22/2010 10/12/2014 Diaphragmatic hernia without mention of obstruction or gangrene 09/22/2010 10/12/2014 Esophagitis, unspecified 09/22/201001/2015 Sprain of neck 08/20/2010 01/26/2013 Urticaria 05/10/2009 02/08/2013 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 013 Closed fracture of lateral malleolus 09/03/2008 02/08/2013 DEPRESSIVE DISORDER NEC 02/02/200710/03 Cough 02/01/2007 04/25/2008 Restless legs syndrome (RLS) 06/29/2006 02/08/2013 CHOLEDOCHAL CYST, 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 10/12/2014 CHOLELITHIASIS See also GALLBLADDER 08/26/2005 02/08/2013 Unspecified hemorrhoids with out mention of complication 04/25/2008 Overview: Hemorrhoids documented as of this encounter (statuses as of 06/07/2023) [facility]03[facility]2016 History of Past illness Narrative* Problem Noted Date Diagnosed Date Resolved Date Chronic pain of left knee 07/03/2015 Pre-eclampsia added to pre-e xisting hypertension 11/17/2014 02/19/2016 10/10/2014 10/12/2014 Overview: Per patient report, had an uncomplicated , heightened care given maternal age - f/u CBC and CMP to rule out HELLP (?retained placental material) - c/o tender breats, will plan supportive care with breast pump and ice packs for now. Volume overload 10/10/2014 10/12/2014 Overview: Exam at the moment with mild hypervolemia, CXR with congestion though hypoinflated, BNP at OSH elevated as well as Ti (likely due to high LVEDP and low CPP) - Responded well to 40mg IV lasix, will continue for now (last dosed at 4am) - Will start afterload reduction with hydralazine and ISDN given (avoiding ACEi) - No role for ASA, aldactone just yet - Avoiding beta blockade given sinus tachycardia -->don't want to drop her CO, seems to be dependant on HR. - TTE today - f/u CK and Tt here. 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 Abnormal O'Howe glucose challenge test, antepartum 08/23/2014 02/19/2016 Overview: Normal 3 hr GTT - JV Advanced maternal age (AMA), 40 years or greater 07/10/2014 10/12/2014 Abnormal antibody titer 03/05/201410/03 Overview: Will need follow up in 4 weeks. Katarzyna Arroyo, DO Cervical high risk human pap illomavirus (HPV) DNA test positive 10/27/2013 10/12/2014 Gonorrhea 08/24/2013 10/12/2014 Controlled substance agreement signed 02/08/2013 10/12/2014 Overview: Urine tox screen completely negative for substances Feb 2013. 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 09/22/2010 10/12/2014 Diaphragmatic hernia without mention of obstruction or gangrene 09/22/2010 10/12/2014 Esophagitis, unspecified 09/22/201001/2015 Sprain of neck 08/20/2010 01/26/2013 Urticaria 05/10/2009 02/08/2013 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 013 Closed fracture of lateral malleolus 09/03/2008 02/08/2013 DEPRESSIVE DISORDER NEC 02/02/200710/03 Cough 02/01/2007 04/25/2008 Restless legs syndrome (RLS) 06/29/2006 02/08/2013 CHOLEDOCHAL CYST, 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 10/12/2014 CHOLELITHIASIS See also GALLBLADDER 08/26/2005 02/08/2013 Unspecified hemorrhoids with out mention of complication 04/25/2008 Overview: Hemorrhoids documented as of this encounter (statuses as of 06/09/2023) [facility]03[facility]2016 History of Past illness Narrative* Problem Noted Date Diagnosed Date Resolved Date Chronic pain of left knee 07/03/2015 Pre-eclampsia added to pre-e xisting hypertension 11/17/2014 02/19/2016 10/10/2014 10/12/2014 Overview: Per patient report, had an uncomplicated , heightened care given maternal age - f/u CBC and CMP to rule out HELLP (?retained placental material) - c/o tender breats, will plan supportive care with breast pump and ice packs for now. Volume overload 10/10/2014 10/12/2014 Overview: Exam at the moment with mild hypervolemia, CXR with congestion though hypoinflated, BNP at OSH elevated as well as Ti (likely due to high LVEDP and low CPP) - Responded well to 40mg IV lasix, will continue for now (last dosed at 4am) - Will start afterload reduction with hydralazine and ISDN given (avoiding ACEi) - No role for ASA, aldactone just yet - Avoiding beta blockade given sinus tachycardia -->don't want to drop her CO, seems to be dependant on HR. - TTE today - f/u CK and Tt here. 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 Abnormal O'Howe glucose challenge test, antepartum 08/23/2014 02/19/2016 Overview: Normal 3 hr GTT - JV Advanced maternal age (AMA), 40 years or greater 07/10/2014 10/12/2014 Abnormal antibody titer 03/05/201410/03 Overview: Will need follow up in 4 weeks. Katarzyna Arroyo, Cervical high risk human pap illomavirus (HPV) DNA test positive 10/27/2013 10/12/2014 Gonorrhea 08/24/2013 10/12/2014 Controlled substance agreement signed 02/08/2013 10/12/2014 Overview: Urine tox screen completely negative for substances Feb 2013. 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 09/22/2010 10/12/2014 Diaphragmatic hernia without mention of obstruction or gangrene 09/22/2010 10/12/2014 Esophagitis, unspecified 09/22/201001/2015 Sprain of neck 08/20/2010 01/26/2013 Urticaria 05/10/2009 02/08/2013 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 013 Closed fracture of lateral malleolus 09/03/2008 02/08/2013 DEPRESSIVE DISORDER NEC 02/02/200710/03 Cough 02/01/2007 04/25/2008 Restless legs syndrome (RLS) 06/29/2006 02/08/2013 CHOLEDOCHAL CYST, 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 10/12/2014 CHOLELITHIASIS See also GALLBLADDER 08/26/2005 02/08/2013 Unspecified hemorrhoids with out mention of complication 04/25/2008 Overview: Hemorrhoids documented as of this encounter (statuses as of 06/28/2023) [facility]03[facility] History of Past illness Narrative* Problem Noted Date Diagnosed Date Resolved Date Chronic pain of left knee 07/03/2015 Pre-eclampsia added to pre-e xisting hypertension 11/17/2014 02/19/2016 10/10/2014 10/12/2014 Overview: Per patient report, had an uncomplicated , heightened care given maternal age - f/u CBC and CMP to rule out HELLP (?retained placental material) - c/o tender breats, will plan supportive care with breast pump and ice packs for now. Volume overload 10/10/2014 10/12/2014 Overview: Exam at the moment with mild hypervolemia, CXR with congestion though hypoinflated, BNP at OSH elevated as well as Ti (likely due to high LVEDP and low CPP) - Responded well to 40mg IV lasix, will continue for now (last dosed at 4am) - Will start afterload reduction with hydralazine and ISDN given (avoiding ACEi) - No role for ASA, aldactone just yet - Avoiding beta blockade given sinus tachycardia -->don't want to drop her CO, seems to be dependant on HR. - TTE today - f/u CK and Tt here. 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 Abnormal O'Howe glucose challenge test, antepartum 08/23/2014 02/19/2016 Overview: Normal 3 hr GTT - JV Advanced maternal age (AMA), 40 years or greater 07/10/2014 10/12/2014 Abnormal antibody titer 03/05/201410/03 Overview: Will need follow up in 4 weeks. Katarzyna Arroyo, Cervical high risk human pap illomavirus (HPV) DNA test positive 10/27/2013 10/12/2014 Gonorrhea 08/24/2013 10/12/2014 Controlled substance agreement signed 02/08/2013 10/12/2014 Overview: Urine tox screen completely negative for substances Feb 2013. 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 09/22/2010 10/12/2014 Diaphragmatic hernia without mention of obstruction or gangrene 09/22/2010 10/12/2014 Esophagitis, unspecified 09/22/201001/2015 Sprain of neck 08/20/2010 01/26/2013 Urticaria 05/10/2009 02/08/2013 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 013 Closed fracture of lateral malleolus 09/03/2008 02/08/2013 DEPRESSIVE DISORDER NEC 02/02/200710/03 Cough 02/01/2007 04/25/2008 Restless legs syndrome (RLS) 06/29/2006 02/08/2013 CHOLEDOCHAL CYST, 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 10/12/2014 CHOLELITHIASIS See also GALLBLADDER 08/26/2005 02/08/2013 Unspecified hemorrhoids with out mention of complication 04/25/2008 Overview: Hemorrhoids documented as of this encounter (statuses as of 07/22/2023) [facility] History of Past illness Narrative* Problem Noted Date Diagnosed Date Resolved Date Chronic pain of left knee 07/03/2015 Pre-eclampsia added to pre-e xisting hypertension 11/17/2014 02/19/2016 10/10/2014 10/12/2014 Overview: Per patient report, had an uncomplicated , heightened care given maternal age - f/u CBC and CMP to rule out HELLP (?retained placental material) - c/o tender breats, will plan supportive care with breast pump and ice packs for now. Volume overload 10/10/2014 10/12/2014 Overview: Exam at the moment with mild hypervolemia, CXR with congestion though hypoinflated, BNP at OSH elevated as well as Ti (likely due to high LVEDP and low CPP) - Responded well to 40mg IV lasix, will continue for now (last dosed at 4am) - Will start afterload reduction with hydralazine and ISDN given (avoiding ACEi) - No role for ASA, aldactone just yet - Avoiding beta blockade given sinus tachycardia -->don't want to drop her CO, seems to be dependant on HR. - TTE today - f/u CK and Tt here. 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 Abnormal O'Howe glucose challenge test, antepartum 08/23/2014 02/19/2016 Overview: Normal 3 hr GTT - JV Advanced maternal age (AMA), 40 years or greater 07/10/2014 10/12/2014 Abnormal antibody titer 03/05/201410/03 Overview: Will need follow up in 4 weeks. Katarzyna Arroyo, DO Cervical high risk human pap illomavirus (HPV) DNA test positive 10/27/2013 10/12/2014 Gonorrhea 08/24/2013 10/12/2014 Controlled substance agreement signed 02/08/2013 10/12/2014 Overview: Urine tox screen completely negative for substances Feb 2013. 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 09/22/2010 10/12/2014 Diaphragmatic hernia without mention of obstruction or gangrene 09/22/2010 10/12/2014 Esophagitis, unspecified 09/22/201001/2015 Sprain of neck 08/20/2010 01/26/2013 Urticaria 05/10/2009 02/08/2013 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 013 Closed fracture of lateral malleolus 09/03/2008 02/08/2013 DEPRESSIVE DISORDER NEC 02/02/200710/03 Cough 02/01/2007 04/25/2008 Restless legs syndrome (RLS) 06/29/2006 02/08/2013 CHOLEDOCHAL CYST, 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 10/12/2014 CHOLELITHIASIS See also GALLBLADDER 08/26/2005 02/08/2013 Unspecified hemorrhoids with out mention of complication 04/25/2008 Overview: Hemorrhoids documented as of this encounter (statuses as of 07/23/2023) [facility] History of Past illness Narrative* Problem Noted Date Diagnosed Date Resolved Date Chronic pain of left knee 07/03/2015 Pre-eclampsia added to pre-e xisting hypertension 11/17/2014 02/19/2016 10/10/2014 10/12/2014 Overview: Per patient report, had an uncomplicated , heightened care given maternal age - f/u CBC and CMP to rule out HELLP (?retained placental material) - c/o tender breats, will plan supportive care with breast pump and ice packs for now. Volume overload 10/10/2014 10/12/2014 Overview: Exam at the moment with mild hypervolemia, CXR with congestion though hypoinflated, BNP at OSH elevated as well as Ti (likely due to high LVEDP and low CPP) - Responded well to 40mg IV lasix, will continue for now (last dosed at 4am) - Will start afterload reduction with hydralazine and ISDN given (avoiding ACEi) - No role for ASA, aldactone just yet - Avoiding beta blockade given sinus tachycardia -->don't want to drop her CO, seems to be dependant on HR. - TTE today - f/u CK and Tt here. 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 Abnormal O'Howe glucose challenge test, antepartum 08/23/2014 02/19/2016 Overview: Normal 3 hr GTT - JV Advanced maternal age (AMA), 40 years or greater 07/10/2014 10/12/2014 Abnormal antibody titer 03/05/201410/03 Overview: Will need follow up in 4 weeks. Katarzyna Arroyo, DO Cervical high risk human pap illomavirus (HPV) DNA test positive 10/27/2013 10/12/2014 Gonorrhea 08/24/2013 10/12/2014 Controlled substance agreement signed 02/08/2013 10/12/2014 Overview: Urine tox screen completely negative for substances Feb 2013. 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 09/22/2010 10/12/2014 Diaphragmatic hernia without mention of obstruction or gangrene 09/22/2010 10/12/2014 Esophagitis, unspecified 09/22/201001/2015 Sprain of neck 08/20/2010 01/26/2013 Urticaria 05/10/2009 02/08/2013 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 013 Closed fracture of lateral malleolus 09/03/2008 02/08/2013 DEPRESSIVE DISORDER NEC 02/02/200710/03 Cough 02/01/2007 04/25/2008 Restless legs syndrome (RLS) 06/29/2006 02/08/2013 CHOLEDOCHAL CYST, 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 10/12/2014 CHOLELITHIASIS See also GALLBLADDER 08/26/2005 02/08/2013 Unspecified hemorrhoids with out mention of complication 04/25/2008 Overview: Hemorrhoids documented as of this encounter (statuses as of 07/23/2023) [facility] [facility] Parnell [facility] June 09, 2022 12:54pm Note Date/Time June 09, 2022 12:1 0pm [facility] System Medical Records Department [address] [place] [id number] Instructions for Home/Discharge Instructions 06/09/22 1208 MR#: [id number] Acct: [id number] Name: SALMA BROWNING Rep #:[id number] : 1975 47 From: Nani Underwood PCP: Dr. Susan Sevilla MD Status:[facility] Discharge Instructions Diet Discharge Diet: No restrictions Activity Discharge Activity: May Not Drive (until seen in the office), May Shower (in twodays from the neck down. Wash face gently in the sink. Keep operative dressingdry.) and - (keep head elevated. No heavy lifting.) May shower in (days): 2 (in two days from the neck down. Wash face gently in the sink. Keep operative dressing dr) May resume sexual activity in: 10-14 days Ice area for (Minutes): 5 (and prn for facial swelling.) Weight Bearing Status: Weight bearing as tolerated Lifting Restrictions: 10 lbs. Keep extremity elevated above heart level: - (elevate head) Dressing / Incision Call your doctor if your incision/area has: Continuous Slow Oozing, Sudden Increased Bleeding, Increased Pain/ Swelling, Increased Redness, Foul Smelling Discharge and Swelling at the incision site Call your doctor if you observe: Fever of 101 or Higher, Coldness, Increased Pain, Shortness of breath, Chest pain, Calf discomfort and Uncontrolled pain Suture Line Care: - (after operative dressing removed in the office, apply antibiotic ointment to suture lines daily) Change Dressing in: leave in place till F/U (will remove operative dressing in the office.) Cleanse incision/area with: Keep Dressing Clean & Dry (may shower in 2 days fromthe neck down. Wash face gently in the sink. ) Follow Up Care Please Follow Up With: Nani Parnell MD When: one week. Call [phone] for appt. Test Results: Test results from this visit will be discussed in further detail at your follow- up appointment, if applicable. Discharge Plan Admission Primary Reason for Your Visit: excision MRSA scar contour deformity left chin Attending Provider: Nani Parnell Primary Care Provider: Susan Sevilla Discharge Orders/Prescriptions Prescriptions: New doxycycline hyclate 100 mg capsule 100 mg PO BID Qty: 20 0RF L.acidoph,saliva-B.bif-S.therm [Acidophilus Probiotic Blend] 175 mg capsule 1 cap PO DAILY Qty: 20 0RF oxycodone-acetaminophen [Percocet] 5-325 mg tablet 1 tab PO Q6H PRN (Reason: pain (scale score 7-10)) 7 Days Qty: 28 0RF Rx Instructions: 28 tabs (twenty-eight) Continued Omeprazole [Prilosec] 40 MG capsule 40 mg PO BID Label Comments: REFLUX tizanidine 4 MG capsule 4 mg PO TID PRN (Reason: Muscle Spasm) sertraline 100 mg tablet 200 mg PO BID atenolol 50 MG tablet 50 mg PO 1200 Label Comments: BP Rx Instructions: Hold for heart rate less than 60/min or systolic blood pressure less than 100 mmHg buspirone 5 mg tablet 5 tab PO DAILY rizatriptan 10 mg tablet 1 tab PO PRN PRN (Reason: Migraine Headache) Label Comments: TAKE 1 TABLET BY MOUTH NEEDED FOR MIGRAINE HEADACHE Referrals / Follow Up: Susan Sevilla MD [Primary Care Provider] - Disposition Disposition (needs filled in before D/C Order can be placed): Home, Self Care 06/09/22 1836<Electronically signed by Nani Parnell MD>Nani Parnell MD CC: Dr. Susan Sevilla MD ~ Signed [facility] Work Phone: evaluation noteNo assessment information available [facility] Work Phone: Evaluation note* Diagnosis Rash- Primary Rash and other nonspecific skin eruption documented in this encounter [facility] note* Diagnosis Encounter for screening mammogram for breast cancer documented in this encounter [facility] note* Diagnosis Migraine with aura, not intractable, without status migrainosus- Primary [facility]* Diagnosis Contusion of lesser toe of left foot without damage to nail, initial encounter Pain in left foot Pain in limb [facility]* Diagnosis Contusion of lesser toe of left foot without damage to nail, initial encounter- Primary [facility] Diagnosis Anxiety associated with depression Dysthymic disorder Stress and adjustment reaction Other specified adjustment reaction [facility] Diagnosis Exposure to COVID-19 virus- Primary URI with cough and congestion [facility] Diagnosis Strep pharyngitis- Primary Streptococcal sore throat Bronchitis Bronchitis, not specified as acute or chronic [facility]* Diagnosis Onset Date Resolution Status History of incision and drainage chronic 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 Late effect of facial wound chronic Unspecified open wound of un specified part of neck, sequela chronic DDD (degenerative disc disease), lumbar acute [facility] Work Phone: evaluation note* Diagnosis Diarrhea, unspecified type- Primary Abdominal pain, generalized documented in this encounter [facility] note* Diagnosis Acute constipation- Primary Unspecified constipation Generalized abdominal pain Abdominal pain, generalized Migraine with aura, not intractable, without status migrainosus documented in this encounter [facility] note* Diagnosis Right knee pain, unspecified chronicity- Primary Pain in left hip Pain in joint, pelvic region and thigh [facility]* Diagnosis Vitamin D deficiency- Primary Unspecified vitamin D deficiency documented [facility]* Diagnosis Vitamin D deficiency- Primary Unspecified vitamin D deficiency [facility]* Diagnosis Trochanteric bursitis of left hip- Primary Enthesopathy of hip region [facility]* Diagnosis Anxiety associated with depression Dysthymic disorder Stress and adjustment reaction Other specified adjustment reaction [facility]* Diagnosis Wellness examination- Primary Gastroesophageal reflux disease, unspecified whether esophagitis present Anxiety associated with depression Dysthymic disorder Hypertension, essential Unspecified essential hypertension Migraine with aura, not intractable, without status migrainosus Weight gain Abnormal weight gain Muscle strain Unspecified site of sprain and strain Women's annual routine gynecological examination [facility]* Diagnosis Encounter for gynecological examination (general) (routine) without abnormal findings- Primary Women's annual routine gynecological examination Screen for STD (sexually transmitted disease) Screening examination for venereal disease Encounter for screening mammogram for breast cancer [facility]* Diagnosis URI, acute- Primary Acute upper respiratory infections of unspecified site Exposure to confirmed case of COVID-19 documented [facility]* Diagnosis Obesity, Class III, BMI 40-49.9 (morbid obesity) ([facility])- Primary Morbid obesity Weight gain Abnormal weight gain Hypertension, unspecified type Dietary counseling Dietary surveillance and counseling documented in this encounter [facility] note* Diagnosis Anxiety associated with depression Dysthymic disorder Stress and adjustment reaction Other specified adjustment reaction [facility]* Diagnosis Muscle strain Unspecified site of sprain and strain [facility] Diagnosis Trochanteric bursitis of left hip Enthesopathy of hip region [facility] Diagnosis Vitamin D deficiency- Primary Unspecified vitamin D deficiency [facility]* Diagnosis Pain in left hip Pain in joint, pelvic region and thigh Right knee pain, unspecified chronicity [facility] Diagnosis Arthritis of midfoot Unspecified arthropathy, ankle and foot Pain in left foot Pain in limb Exostosis Exostosis of unspecified site [facility]* Diagnosis Encounter for screening mammogram for breast cancer [facility]* Diagnosis Arthritis of midfoot Unspecified arthropathy, ankle and foot Contusion of lesser toe of left foot without damage to nail, initial encounter Pain in left foot Pain in limb [facility] Diagnosis Contusion of lesser toe of left foot without damage to nail, initial encounter [facility]* Diagnosis Arthritis of midfoot- Primary Unspecified arthropathy, ankle and foot Pain in left foot Pain in limb [facility]* Diagnosis Anxiety associated with depression Dysthymic disorder Stress and adjustment reaction Other specified adjustment reaction [facility]* Diagnosis Cervicalgia- Primary Headache, unspecified headache type documented [facility] this [facility]* Diagnosis Cervicalgia- Primary Headache, unspecified headache type documented [facility]* Diagnosis Trochanteric bursitis of left hip Enthesopathy of hip region documented [facility]* Diagnosis Right knee pain, unspecified chronicity- Primary [facility]* Diagnosis Migraine with aura, not intractable, without status migrainosus documented [facility]* Diagnosis SOB (shortness of breath)- Primary Shortness of breath Dizziness Dizziness and giddiness Class 3 severe obesity with body mass index (BMI) of 40.0 to 44.9 in adult, unspecified obesity type, unspecified whether serious comorbidity present (HCC) Vitamin D deficiency Unspecified vitamin D deficiency documented in this encounter [facility] note* Diagnosis Primary osteoarthritis of both knees Primary localized osteoarthrosis, lower leg [facility]* Diagnosis Vitamin D deficiency- Primary Unspecified vitamin D deficiency [facility]* Diagnosis Dizziness- Primary Dizziness and giddiness Anxiety associated with depression Dysthymic disorder Ventricular hypertrophy Cardiomegaly [facility]* Diagnosis Anxiety associated with depression- Primary [facility]ysthymic [facility] Diagnosis BPPV (benign paroxysmal positional vertigo), unspecified laterality- Primary Dizziness Dizziness and giddiness Bradycardia Other specified cardiac dysrhythmias Sore throat Acute pharyngitis Weight gain Abnormal weight gain Anxiety associated with depression [facility]ysthymic disorder [facility] Bacterial sinusitis- Primary Unspecified sinusitis (chronic) Sore throat Acute pharyngitis [facility]* Diagnosis Anxiety associated with depression Dysthymic disorder [facility] Diagnosis Acute cough- Primary [facility]* Diagnosis URI, acute- Primary Acute upper respiratory infections of unspecified site Acute cough Loss of voice Aphonia SOB (shortness of breath) Shortness of breath Post-nasal drip Postnasal drip BPPV (benign paroxysmal positional vertigo), unspecified laterality Primary osteoarthritis of both knees Primary localized osteoarthrosis, lower leg Class 3 severe obesity with body mass index (BMI) of 40.0 to 44.9 in adult, unspecified obesity type, unspecified whether serious comorbidity present (HCC) Acute cough [facility]* Diagnosis Chronic cough- Primary Cough Abnormal chest x-ray Other nonspecific abnormal finding of lung field [facility]* Diagnosis Chronic cough Cough Abnormal chest x-ray Other nonspecific abnormal finding of lung field [facility] Diagnosis Wellness examination- Primary BRITTANY (generalized anxiety disorder) Generalized anxiety disorder Hypertension, essential Unspecified essential hypertension Class 3 severe obesity with body mass index (BMI) of 45.0 to 49.9 in adult, unspecified obesity type, unspecified whether serious comorbidity present (HCC) Migraine with aura, not intractable, without status migrainosus Primary osteoarthritis of both knees Primary localized osteoarthrosis, lower leg Gastroesophageal reflux disease, unspecified whether esophagitis present Women's annual routine gynecological examination [facility]* Diagnosis Acute cough [facility] Diagnosis Primary osteoarthritis of both knees- Primary Primary localized osteoarthrosis, lower leg Morbid obesity (HCC) Morbid obesity Acute pain of right knee [facility]* Diagnosis SOB (shortness of breath) Shortness of breath documented in this encounter [facility] note* Diagnosis Right knee pain, unspecified chronicity documented in this encounter [facility] note* Diagnosis Cervicalgia documented in this encounter [facility] note* Diagnosis Bronchitis Bronchitis, not specified as acute or chronic documented in this encounter [facility] note* Diagnosis Primary osteoarthritis of both knees- Primary Gastroesophageal reflux disease without esophagitis Esophageal reflux Daytime sleepiness Primary hypertension Unspecified essential hypertension Back pain, unspecified back location, unspecified back pain laterality, unspecified chronicity Morbid obesity with BMI of 45.0-49.9, adult ([facility]) documented in this encounter [facility] note* Diagnosis Primary osteoarthritis of both knees- Primary Gastroesophageal reflux disease without esophagitis Esophageal reflux Daytime sleepiness Primary hypertension Unspecified essential hypertension Morbid obesity with BMI of 45.0-49.9, adult ([facility]) documented in this encounter [facility] note* Diagnosis Encounter for screening mammogram for breast cancer documented in this encounter [facility] note* Diagnosis Anxiety associated with depression Dysthymic disorder Hypertension, essential Unspecified essential hypertension Migraine with aura, not intractable, without status migrainosus documented in this encounter [facility] note* Diagnosis Primary hypertension- Primary Unspecified essential hypertension BMI 45.0-49.9, adult ([facility]) Class 3 severe obesity with serious comorbidity and body mass index (BMI) of 45.0 to 49.9 in adult, unspecified obesity type (HCC) Gastro-esophageal reflux disease without esophagitis documented in this encounter [facility] note* Diagnosis Migraine with aura, not intractable, without status migrainosus documented in this encounter [facility] note* Diagnosis Gastro-esophageal reflux disease without esophagitis documented in this encounter [facility] note* Diagnosis Sore throat- Primary Acute pharyngitis Acute cough SOB (shortness of breath) Shortness of breath Acute cough SOB (shortness of breath) Shortness of breath documented in this encounter [facility] note* Diagnosis Acute cough SOB (shortness of breath) Shortness of breath documented in this encounter [facility] note* Diagnosis Primary osteoarthritis of both knees- Primary Gastroesophageal reflux disease without esophagitis Esophageal reflux Daytime sleepiness Primary hypertension Unspecified essential hypertension Morbid obesity with BMI of 45.0-49.9, adult ([facility]) [facility] Diagnosis Primary osteoarthritis of both knees- Primary Gastroesophageal reflux disease without esophagitis Esophageal reflux Daytime sleepiness Primary hypertension Unspecified essential hypertension Morbid obesity with BMI of 45.0-49.9, adult ([facility]) documented in this encounter [facility] note* Diagnosis Anxiety associated with depression Dysthymic disorder documented in this encounter [facility] note* Diagnosis Anxiety associated with depression Dysthymic disorder Migraine with aura, not intractable, without status migrainosus documented in this encounter [facility] note* Diagnosis Primary osteoarthritis of both knees- Primary Gastroesophageal reflux disease without esophagitis Esophageal reflux Daytime sleepiness Primary hypertension Unspecified essential hypertension Morbid obesity with BMI of 45.0-49.9, adult (HCC) documented in this encounter [facility] note* Diagnosis Primary hypertension- Primary Unspecified essential hypertension BMI 45.0-49.9, adult ([facility]) Class 3 severe obesity with serious comorbidity and body mass index (BMI) of 45.0 to 49.9 in adult, unspecified obesity type (HCC) documented in this encounter [facility] note* Diagnosis Primary hypertension- Primary Unspecified essential hypertension BMI 45.0-49.9, adult (HCC) Class 3 severe obesity with serious comorbidity and body mass index (BMI) of 45.0 to 49.9 in adult, unspecified obesity type documented in this encounter [facility] note* Diagnosis Hypertension, essential Unspecified essential hypertension Anxiety associated with depression Dysthymic disorder documented in this encounter [facility] note* Diagnosis Localized bacterial skin infection- Primary Unspecified local infection of skin and subcutaneous tissue documented in this encounter [facility] for referral (narrative)* Diagnostic Procedure Only (Routine) - Pending Review Specialty Diagnoses / Procedures Referred By Hansa vásquez Referred To Contact [facility] Diagnoses Encounter for screening mammogram for breast cancer Procedures ALLIE SCREENING SCREENING MAMMOGRAPHY BI 2-VIEW BREAST INC CAD Susan Sevilla MD [address] [place] [address] [facility] [address] [place] [address] Referral ID Status Reason Start Date Expiration Date Visits Requested Visits Authorized [id number] Pending Review Auto-Generat ed Referral 10/01/2021 10/31/2022 1 1 [facility] for referral (narrative)* Diagnostic Procedure Only (Routine) - Closed Specialty Diagnoses / Procedures Referred By Contac t Referred To Contact XR IMAGING Diagnoses Contusion of lesser toe of left foot without damage to nail, initial encounter Pain in left foot Procedures XR FOOT GENERAL 3V AP/LAT/OBL LEFT RADEX FOOT COMPLETE MINIMUM 3 VIEWS Ronak Pulido [address] [place] [address] X[facility] Imaging Referral ID Status Reason Start Date Expiration Date V isits Requested Visits Authorized [id number] Closed Auto-Generate d Referral 12/10/2021 01/09/2023 1 1 [facility] for referral (narrative)* Diagnostic Procedure Only (Routine) - Pending Review Specialty Diagnoses / Procedures Referred By Contac t Referred To Contact XR IMAGING Diagnoses Contusion of lesser toe of left foot without damage to nail, initial encounter Procedures XR FOOT GENERAL 3V AP/LAT/OBL LEFT RADEX FOOT COMPLETE MINIMUM 3 VIEWS Ronak Pulido [address] [place] [address] Xr Imaging Referral ID Status Reason Start Date Expiration Date Visits Requested Visits Authorized [id number] Pending Review Auto-Generat ed Referral 12/11/2021 01/10/2023 1 1 [facility] for referral (narrative)* Diagnostic Procedure Only (Routine) - Pending Review Specialty Diagnoses / Procedures Referred By Contac t Referred To Contact XR IMAGING Diagnoses Right knee pain, unspecified chronicity Procedures XR KNEE GENERAL 4V AP BOTH/PA BOTH/LAT/MERC LEFT RADIOLOGIC EXAM KNEE COMPLETE 4/MORE VIEWS Ray Frazier MD [address] [place] [address] Xr Imaging Referral ID Status Reason Start Date Expiration Date Visits Requested Visits Authorized [id number] Pending Review Auto-Generat ed Referral 10/16/2022 11/15/2023 1 1 * Diagnostic Procedure Only (Routine) - Pending Review Specialty Diagnoses / Procedures Referred By Hansa t Referred To Contact XR IMAGING Diagnoses Pain in left hip Procedures XR HIP GENERAL 3V PELV/AP/LAT LEFT RADEX HIP UNILATERAL WITH PELVIS 2-3 VIEWS Ray Frazier MD [address] [place] [address] Xr Imaging Referral ID Status Reason Start Date Expiration Date Visits Requested Visits Authorized [id number] Pending Review Auto-Generat ed Referral 10/16/2022 11/15/2023 1 1 [facility] for referral (narrative)* Diagnostic Procedure Only (Routine) - Authorized Specialty Diagnoses / Procedures Referred By Hansa t Referred To Contact [facility] Diagnoses Encounter for screening mammogram for breast cancer Procedures ALLIE SCREENING W ASHLEY SCREENING DIGITAL BREAST TOMOSYNTHESIS BI SCREENING MAMMOGRAPHY BI 2-VIEW BREAST INC CAD Yuli Givens MD [address] [place] [address] [facility] [address] [place] [address] Referral ID Status Reason Start Date Expiration Date Visits Requested Visits Authorized [id number] Authorized Auto-Generat ed Referral 12/04/2022 01/03/2024 1 1 [facility] for referral (narrative)* Diagnostic Procedure Only (Routine) - Closed Specialty Diagnoses / Procedures Referred By Hansa t Referred To Contact XR IMAGING Diagnoses Right knee pain, unspecified chronicity Procedures XR KNEE GENERAL 4V AP BOTH/PA BOTH/LAT/MERC LEFT RADIOLOGIC EXAM KNEE COMPLETE 4/MORE VIEWS Ray Frazier MD [address] [place] [address] [place] [address] Referral ID Status Reason Start Date Expiration Date V isits Requested Visits Authorized [id number] Closed Auto-Generate d Referral 10/16/2022 11/15/2023 1 1 * Diagnostic Procedure Only (Routine) - Closed Specialty Diagnoses / Procedures Referred By Hansa t Referred To Contact XR IMAGING Diagnoses Pain in left hip Procedures XR HIP GENERAL 3V PELV/AP/LAT LEFT RADEX HIP UNILATERAL WITH PELVIS 2-3 VIEWS Ray Frazier MD [address] [place] [address] [place] [address] Referral ID Status Reason Start Date Expiration Date V isits Requested Visits Authorized [id number] Closed Auto-Generate d Referral 10/16/2022 11/15/2023 1 1 [facility] for referral (narrative)* Diagnostic Procedure Only (Routine) - Closed Specialty Diagnoses / Procedures Referred By Hansa t Referred To Contact XR IMAGING Diagnoses Arthritis of midfoot Pain in left foot Exostosis Procedures XR FOOT GENERAL 3V AP/LAT/OBL LEFT RADEX FOOT COMPLETE MINIMUM 3 VIEWS Ronak Pulido [address] [place] [address] [place] [address] Referral ID Status Reason Start Date Expiration Date V isits Requested Visits Authorized [id number] Closed Auto-Generate d Referral 11/04/2022 12/04/2023 1 1 [facility] for referral (narrative)* Diagnostic Procedure Only (Routine) - Closed Specialty Diagnoses / Procedures Referred By Contpushpa t Referred To Contact BR IMAGING Diagnoses Encounter for screening mammogram for breast cancer Procedures ALLIE SCREENING W ASHLEY SCREENING DIGITAL BREAST TOMOSYNTHESIS BI SCREENING MAMMOGRAPHY BI 2-VIEW BREAST INC CAD Yuli Givens MD [address] [place] [address] Br Imaging [address] [place] [address] Referral ID Status Reason Start Date Expiration Date V isits Requested Visits Authorized [id number] Closed Auto-Generate d Referral 12/04/2022 01/03/2024 1 1 [facility] for referral (narrative)* Diagnostic Procedure Only (Routine) - Closed Specialty Diagnoses / Procedures Referred By Contac t Referred To Contact XR IMAGING Diagnoses Contusion of lesser toe of left foot without damage to nail, initial encounter Procedures XR FOOT GENERAL 3V AP/LAT/OBL LEFT RADEX FOOT COMPLETE MINIMUM 3 VIEWS Ronak Pulido [address] [place] [address] [place] [address] Referral ID Status Reason Start Date Expiration Date V isits Requested Visits Authorized [id number] Closed Auto-Generate d Referral 12/11/2021 01/10/2023 1 1 [facility] for referral (narrative)* Diagnostic Procedure Only (Routine) - Closed Specialty Diagnoses / Procedures Referred By Contac t Referred To Contact XR IMAGING Diagnoses Cervicalgia Procedures XR CERV OTHER 4V AP/LAT/OBL RADEX SPINE CERVICAL 4 OR 5 VIEWS Neal Gomez APRN.HEARING AID DISPENSER [address] [place] [address] [place] [address] Referral ID Status Reason Start Date Expiration Date V isits Requested Visits Authorized [id number] Closed Auto-Generate d Referral 05/14/2023 06/12/2024 1 1 * MRI/CT (Routine) - Pending Review Specialty Diagnoses / Procedures Referred By Contac t Referred To Contact MR IMAGING Diagnoses Cervicalgia Procedures MRI CERVICAL SPINE WO IVCON MRI SPINAL CANAL CERVICAL W/O CONTRAST MATRL Neal Gomez APRN.HEARING AID DISPENSER [address] [place] [address] [place] [address] Referral ID Status Reason Start Date Expiration Date Visits Requested Visits Authorized [id number] Pending Review Auto-Generat ed Referral 05/14/2023 06/12/2024 1 1 * Consult, Test, Treat (Routine) - Authorized Specialty Diagnoses / Procedures Referred By Contac t Referred To Contact [facility] [place] [facility] Diagnoses Cervicalgia Procedures CONSULT TO [facility] OFFICE/OUTPATIENT [facility] 60 MINUTES Neal Gomez APRN.HEARING AID DISPENSER [address] [place] [address] Referral ID Status Reason Start Date Expiration Date Visits Requested Visits Authorized [id number] Authorized PCP Requested Referral 05/14/2023 05/13/2024 1 1 [facility] Diagnostic Procedure Only (Routine) - Pending Review Specialty Diagnoses / Procedures Referred By Contac t Referred To Contact XR IMAGING Diagnoses Right knee pain, unspecified chronicity Procedures XR KNEE GENERAL 4V AP BOTH/PA BOTH/LAT/MERC RIGHT RADIOLOGIC EXAM KNEE COMPLETE 4/MORE VIEWS Oksana Kenney PA-C [address] [place] [address] [place] [address] Referral ID Status Reason Start Date Expiration Date Visits Requested Visits Authorized [id number] Pending Review Auto-Generat ed Referral 06/09/2023 07/08/2024 1 1 [facility] Outpatient Procedure (Routine) - Pending Review Specialty Diagnoses / Procedures Referred By Contac t Referred To Contact [facility] Diagnoses SOB (shortness of breath) Procedures ECG COMPLETE ECG ROUTINE ECG W/LEAST 12 LDS W/I&R Mary Mcmillan APRN.HEARING AID DISPENSER [address] [place] [address] [facility] [address] [place] [address] Referral ID Status Reason Start Date Expiration Date Visits Requested Visits Authorized [id number] Pending Review Auto-Generat ed Referral 07/23/2023 07/22/2024 1 1 * Outpatient Procedure (Routine) - Additional Clinical Info Needed Specialty Diagnoses / Procedures Referred By Contac t Referred To Contact [facility] Diagnoses SOB (shortness of breath) Procedures ECHO ECHO TTHRC R-T 2D W/WOM-MODE COMPL SPEC&COLR D Mary Mcmillan APRN.HEARING AID DISPENSER [address] [place] [address] [facility] [address] [address] Referral ID Status Reason Start Date Expiration Date Visits Requested Visits Authorized [id number] Additional Clinical Info Needed Auto-Generat ed Referral 07/23/2023 07/22/2024 1 1 [facility] for referral (narrative)* Outpatient Procedure (Routine) - Authorized Specialty Diagnoses / Procedures Referred By Contac t Referred To Contact [facility] Diagnoses Dizziness Ventricular hypertrophy Procedures EXERCISE STRESS ECG (WITHOUT IMAGING) Mary Mcmillan APRN.HEARING AID DISPENSER [address] [place] [address] [address] Referral ID Status Reason Start Date Expiration Date Visits Requested Visits Authorized [id number] Authorized Auto-Generat ed Referral 08/11/2023 08/10/2024 1 1 * Consult, Test, Treat (Routine) - Authorized Specialty Diagnoses / Procedures Referred By Contac t Referred To Contact Cardiology Diagnoses Dizziness Ventricular hypertrophy Procedures CONSULT TO CARDIOLOGY OFFICE/OUTPATIENT NEW HIGH MDM 60 MINUTES Mary Mcmillan APRN.HEARING AID DISPENSER [address] [place] [address] Referral ID Status Reason Start Date Expiration Date Visits Requested Visits Authorized [id number] Authorized PCP Requested Referral 08/11/2023 08/10/2024 1 1 [facility] for referral (narrative)* Diagnostic Procedure Only (Routine) - Closed Specialty Diagnoses / Procedures Referred By Contac t Referred To Contact XR IMAGING Diagnoses Right knee pain, unspecified chronicity Procedures XR KNEE GENERAL 4V AP BOTH/PA BOTH/LAT/MERC RIGHT RADIOLOGIC EXAM KNEE COMPLETE 4/MORE VIEWS Oksana Kenney PA-C [address] [place] [address] [place] [address] Referral ID Status Reason Start Date Expiration Date V isits Requested Visits Authorized [id number] Closed Auto-Generate d Referral 06/09/2023 07/08/2024 1 1 [facility] for referral (narrative)* Diagnostic Procedure Only (Routine) - Closed Specialty Diagnoses / Procedures Referred By Contac t Referred To Contact XR IMAGING Diagnoses Cervicalgia Procedures XR CERV OTHER 4V AP/LAT/OBL RADEX SPINE CERVICAL 4 OR 5 VIEWS Neal Gomez APRN.HEARING AID DISPENSER [address] [place] [address] [place] [address] Referral ID Status Reason Start Date Expiration Date V isits Requested Visits Authorized [id number] Closed Auto-Generate d Referral 05/14/2023 06/12/2024 1 1 [facility] for referral (narrative)* Consultation (Routine) - Pending Review Specialty Diagnoses / Procedures Referred By Contac t Referred To Contact Pulmonary Disease / Pulmonology Diagnoses Daytime sleepiness Primary hypertension Morbid obesity with BMI of 45.0-49.9, adult (HCC) Procedures [place] OFFICE/OUTPATIENT NEW HIGH MDM 60 MINUTES Mary Vaz APRN - HEARING AID DISPENSER [address] [place] [address] [facility] [address] [place] [address] Referral ID Status Reason Start Date Expiration Date Visits Requested Visits Authorized [id number] Pending Review Specialty Services Required 01/13/2025 1 1 * Consultation (Elective) - Pending Review Specialty Diagnoses / Procedures Referred By Hansa vásquez Referred To Contact Cardiology Diagnoses Primary hypertension Morbid obesity with BMI of 45.0-49.9, adult (HCC) Procedures [place] OFFICE/OUTPATIENT NEW HIGH MDM 60 MINUTES Mary Vaz APRN - CNP [address] [place] [address] [facility] [address] [place] [address] Referral ID Status Reason Start Date Expiration Date Visits Requested Visits Authorized [id number] Pending Review Specialty Services Required 01/13/2025 1 1 [facility] for referral (narrative)* Diagnostic Procedure Only (Routine) - New Request Specialty Diagnoses / Procedures Referred By Hansa vásquez Referred To Contact BR IMAGING Diagnoses Encounter for screening mammogram for breast cancer Procedures ALLIE SCREENING W ASHLEY SCREENING DIGITAL BREAST TOMOSYNTHESIS BI SCREENING MAMMOGRAPHY BI 2-VIEW BREAST INC CAD Susan Sevilla MD [address] [place] [address] Br Imaging [address] [place] [address] Referral ID Status Reason Start Date Expiration Date Visits Requested Visits Authorized [id number] New Request Auto-Generat ed Referral 01/12/2024 02/10/2025 1 1 [facility] for visit Narrative* Diagnostic Procedure Only (Routine) - Closed Specialty Diagnoses / Procedures Referred By Hansa vásquez Referred To Contact XR IMAGING Diagnoses Contusion of lesser toe of left foot without damage to nail, initial encounter Pain in left foot Procedures XR FOOT GENERAL 3V AP/LAT/OBL LEFT RADEX FOOT COMPLETE MINIMUM 3 VIEWS Ronak Pulido [address] [place] [address] Xr Imaging Referral ID Status Reason Start Date Expiration Date V isits Requested Visits Authorized [id number] Closed Auto-Generate d Referral 12/10/2021 01/09/2023 1 1 [facility] for visit Narrative* Diagnostic Procedure Only (Routine) - Closed Specialty Diagnoses / Procedures Referred By Hansa t Referred To Contact XR IMAGING Diagnoses Right knee pain, unspecified chronicity Procedures XR KNEE GENERAL 4V AP BOTH/PA BOTH/LAT/MERC LEFT RADIOLOGIC EXAM KNEE COMPLETE 4/MORE VIEWS Ray Frazier MD [address] [place] [address] [place] [address] Referral ID Status Reason Start Date Expiration Date V isits Requested Visits Authorized [id number] Closed Auto-Generate d Referral 10/16/2022 11/15/2023 1 1 [facility] for visit Narrative* Diagnostic Procedure Only (Routine) - Closed Specialty Diagnoses / Procedures Referred By Hansa t Referred To Contact XR IMAGING Diagnoses Arthritis of midfoot Pain in left foot Exostosis Procedures XR FOOT GENERAL 3V AP/LAT/OBL LEFT RADEX FOOT COMPLETE MINIMUM 3 VIEWS Ronak Pulido [address] [place] [address] [place] [address] Referral ID Status Reason Start Date Expiration Date V isits Requested Visits Authorized [id number] Closed Auto-Generate d Referral 11/04/2022 12/04/2023 1 1 [facility] for visit Narrative* Diagnostic Procedure Only (Routine) - Closed Specialty Diagnoses / Procedures Referred By Hansa vásquez Referred To Contact BR IMAGING Diagnoses Encounter for screening mammogram for breast cancer Procedures ALLIE SCREENING W ASHLEY SCREENING DIGITAL BREAST TOMOSYNTHESIS BI SCREENING MAMMOGRAPHY BI 2-VIEW BREAST INC CAD Yuli Givens MD [address] [place] [address] Br Imaging [address] [place] [address] Referral ID Status Reason Start Date Expiration Date V isits Requested Visits Authorized [id number] Closed Auto-Generate d Referral 12/04/2022 01/03/2024 1 1 [facility] for visit Narrative* Diagnostic Procedure Only (Routine) - Closed Specialty Diagnoses / Procedures Referred By Contac t Referred To Contact XR IMAGING Diagnoses Contusion of lesser toe of left foot without damage to nail, initial encounter Procedures XR FOOT GENERAL 3V AP/LAT/OBL LEFT RADEX FOOT COMPLETE MINIMUM 3 VIEWS Ronak Pulido [address] [place] [address] [place] [address] Referral ID Status Reason Start Date Expiration Date V isits Requested Visits Authorized [id number] Closed Auto-Generate d Referral 12/11/2021 01/10/2023 1 1 [facility] for visit Narrative* Diagnostic Procedure Only (Routine) - Closed Specialty Diagnoses / Procedures Referred By Contac t Referred To Contact XR IMAGING Diagnoses Right knee pain, unspecified chronicity Procedures XR KNEE GENERAL 4V AP BOTH/PA BOTH/LAT/MERC RIGHT RADIOLOGIC EXAM KNEE COMPLETE 4/MORE VIEWS Oksana Kenney PA-C [address] [place] [address] [place] [address] Referral ID Status Reason Start Date Expiration Date V isits Requested Visits Authorized [id number] Closed Auto-Generate d Referral 06/09/2023 07/08/2024 1 1 [facility] for visit Narrative* Diagnostic Procedure Only (Routine) - Closed Specialty Diagnoses / Procedures Referred By Contac t Referred To Contact XR IMAGING Diagnoses Cervicalgia Procedures XR CERV OTHER 4V AP/LAT/OBL RADEX SPINE CERVICAL 4 OR 5 VIEWS Neal Gomez, GIFTED TEACHER.HEARING AID DISPENSER [address] [place] [address] [place] [address] Referral ID Status Reason Start Date Expiration Date V isits Requested Visits Authorized [id number] Closed Auto-Generate d Referral 05/14/2023 06/12/2024 1 1 [facility] for visit Narrative* Auth/Cert (Routine) Specialty Diagnoses / Procedures Referred By Contac t Referred To Contact Diagnoses Gastro-esophageal reflux disease without esophagitis Procedures [place] EGD TRANSORAL BIOPSY SINGLE/MULTIPLE ESOPHAGOGASTRODUODENOSCOPY WITH BIOPSY Nate Winters MD [address] [place] [address] [address] [place] [address] Phone: tel: fax: Referral ID Status Reason Start Date Expiration Date Visits Re quested Visits Authorized [id number] 01/27/2024 1 1 Family History No Family History Records Found Relationship Condition Age at Onset Recorded Date/T klarissa Unknown Family History?- Unknown April 7:55pm Family History?Diabetes Unknown Olegario garcia 2020 7:55pm Relationship Condition Age at Onset Recorded Date/T klarissa mother Anxiety Unknown Arthritis Unknown Depression Unknown Diabetes mellitus Unknown High blood cholesterol Unknown Osteoporosis Unknown Hypertension Unknown sister Anxiety Unknown Sexually transmitted disease in female Un known grandmother Arthritis Unknown grandfather Hypertension Unknown Advance Directives No Advanced Directives Records Found Advance Directive Response Recorded Date/ Time Advance Directives No February 03, 2019 12:43pm Living Will No January 30 8:44am Power of Linking Machine Operator No January 30, 2021 8:44am Documents on File Type Date Recorded 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 Risk Management 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 Expl 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 Advance Directive(s) Advance Directive(s) 05/09/2019 8:27 AM Documents on File Type Date Recorded Patient Sr Risk Management Consultant Expl anation Advance Directive(s) Advance Directive(s) 05/09/2019 8:27 AM Advance Directive Response Recorded Date/ Time Advance Directives No February 03, 2019 12:43pm Living Will No November 12 10:23pm Power of Linking Machine Operator No November 12 10:23pm Advance Directive Response Recorded Date/ Time Advance Directives No February 03, 2019 11:43am Living Will No November 12 9:23pm Power of Linking Machine Operator No November 12 9:23pm Advance Directive Response Recorded Date/ Time Advance Directives No February 03, 2019 11:43am Living Will No June 05, 2022 8:43am Power of Linking Machine Operator No June 05 8:43am Date Activated Date Inactivated Comments 03/10/2024 9:26 AM 03/10/2024 12:38 PM Date Activated Date Inactivated Comments 03/10/2024 9:26 AM 03/10/2024 12:38 PM Chief Complaint and Reason for Visit Chief Complaint Radiculopathy, lumba r region Chief Complaint Radiculopathy, lumba r region FOOT Chief Complaint 2 YR FU LUMBER SPINE Reason for Visit History of incision and drainage History of methicillin resistant staphylococcus aureus (MRSA) Late effect of facial wound Unspecified open wound of unspecified part of neck, sequela DDD (degenerative disc disease), lumbar Chief Complaint 2 YR FU LUMBER SPINE Lt Chin with Debridement painful MRSA Scar Contour Lt Chin with Debridement painful MRSA Scar Contour Reason for Visit History of incision and drainage History of methicillin resistant staphylococcus aureus (MRSA) Late effect of facial wound Unspecified open wound of unspecified part of neck, sequela DDD (degenerative disc disease), lumbar Health Concerns Infection Onset Date Last Indicated Resolved Time COVID-19 Rule-Out 03/11/2022 03/11/2022 Reason for Referral Specialty Diagnoses / Procedures Referred By Contac t Referred To Contact [facility] Diagnoses Trochanteric bursitis of left hip Procedures CONSULT TO PHYSICAL THERAPY PHYSICAL THERAPY EVALUATION HIGH COMPLEX 45 MINS Ray Frazier MD [address] [place] [address] [facility] [address] [place] [address] Referral ID Status Reason Start Date Expiration Date Visits Requested Visits Authorized [id number] Pending Review Auto-Generat ed Referral 10/19/2022 10/19/2023 1 1 Specialty Diagnoses / Procedures Referred By Contac t Referred To Contact Gynecology Diagnoses Women's annual routine gynecological examination Procedures CONSULT TO GYNECOLOGY OFFICE/OUTPATIENT [facility] 60-74 MINUTES Mary Mcmillan APRN.HEARING AID DISPENSER [address] [place] [address] Referral ID Status Reason Start Date Expiration Date Visits Requested Visits Authorized [id number] Authorized PCP Requested Referral Auto-Generate d Referral 12/02/2022 12/02/2023 1 1 Specialty Diagnoses / Procedures Referred By Contac t Referred To Contact Nutrition Diagnoses Weight gain Procedures CONSULT TO NUTRITION THERAPY MEDICAL NUTRITION ASSMT&IVNTJ INDIV EACH 15 [place] MEDICAL NUTRITION ASSMT&IVNTJ INDIV EACH 15 [place] MEDICAL NUTRITION ASSMT&IVNTJ INDIV EACH 15 [place] MEDICAL NUTRITION ASSMT&IVNTJ INDIV EACH 15 [place] Mary Mcmillan APRN.HEARING AID DISPENSER [address] [place] [address] Referral ID Status Reason Start Date Expiration Date Visits Requested Visits Authorized [id number] Authorized PCP Requested Referral 12/02/2022 12/02/2023 1 1 Specialty Diagnoses / Procedures Referred By Contac t Referred To Contact CT IMAGING Diagnoses Arthritis of midfoot Contusion of lesser toe of left foot without damage to nail, initial encounter Pain in left foot Procedures CT FOOT WO IVCON LEFT CT LOWER EXTREMITY W/O CONTRAST MATERIAL Ronak [address] [place] [address] [place] [address] Referral ID Status Reason Start Date Expiration Date V isits Requested Visits Authorized [id number] Closed Auto-Generate d Referral 10/08/2022 11/07/2023 1 1 Specialty Diagnoses / Procedures Referred By Contac t Referred To Contact [facility] Diagnoses Cervicalgia Headache, unspecified headache type Procedures CONSULT TO PHYSICAL THERAPY PHYSICAL THERAPY EVALUATION HIGH COMPLEX 45 MINS Neal Gomez APRN.HEARING AID DISPENSER [address] [place] [address] [facility] [address] [place] [address] Referral ID Status Reason Start Date Expiration Date Visits Requested Visits Authorized [id number] Pending Review Auto-Generat ed Referral 05/27/2023 05/26/2024 1 1 Specialty Diagnoses / Procedures Referred By Contac t Referred To Contact Diagnoses Class 3 severe obesity with body mass index (BMI) of 40.0 to 44.9 in adult, unspecified obesity type, unspecified whether serious comorbidity present (HCC) Procedures CONSULT [facility] OFFICE/OUTPATIENT [facility] MDM 60 MINUTES Mary Mcmillan APRN.HEARING AID DISPENSER [address] [place] [address] Referral ID Status Reason Start Date Expiration Date Visits Requested Visits Authorized [id number] Authorized PCP Requested Referral 10/20/2023 10/19/2024 1 1 Specialty Diagnoses / Procedures Referred By Contac t Referred To Contact CT IMAGING Diagnoses Chronic cough Abnormal chest x-ray Procedures CT CHEST W IVCON DIAGNOSTIC COMPUTED TOMOGRAPHY THORAX W/CONTRAST Mary Mcmillan APRN.HEARING AID DISPENSER [address] [place] [address] [place] [address] Referral ID Status Reason Start Date Expiration Date Visits Requested Visits Authorized [id number] Authorized Auto-Generat ed Referral 10/21/2023 12/20/2023 1 1 Referral ID Status Reason Start Date Expiration Date V isits Requested Visits Authorized [id number] Closed Auto-Generate d Referral 10/21/2023 12/20/2023 1 1 Specialty Diagnoses / Procedures Referred By Contac t Referred To Contact Gynecology Diagnoses Women's annual routine gynecological examination Procedures CONSULT TO GYNECOLOGY OFFICE/OUTPATIENT [facility] 60 MINUTES Mary Mcmillan APRN.HEARING AID DISPENSER [address] [place] [address] Referral ID Status Reason Start Date Expiration Date Visits Requested Visits Authorized [id number] Authorized PCP Requested Referral Auto-Generate d Referral 12/03/2023 12/02/2024 1 1 Specialty Diagnoses / Procedures Referred By Contac t Referred To Contact Diagnoses Migraine with aura, not intractable, without status migrainosus Mary Mcmillan, HEARING AID DISPENSER [address] [place] [address] Referral ID Status Reason Start Date Expiration Date V isits Requested Visits Authorized [id number] Authorized 12/03/2023 12/01/2024 1 1 Specialty Diagnoses / Procedures Referred By Contac t Referred To Contact Diagnoses Class 3 severe obesity with body mass index (BMI) of 45.0 to 49.9 in adult, unspecified obesity type, unspecified whether serious comorbidity present (HCC) Procedures CON[facility]ULT [facility] OFFICE/OUTPATIENT [facility] 60 MINUTES Mary Mcmillan APRN.HEARING AID DISPENSER [address] [place] [address] Referral ID Status Reason Start Date Expiration Date Visits Requested Visits Authorized [id number] Authorized PCP Requested Referral 12/03/2023 12/02/2024 1 1 Specialty Diagnoses / Procedures Referred By Hansa t Referred To Contact Diagnoses BRITTANY (generalized anxiety disorder) Procedures CONSULT TO [facility] ADULT OFFICE/OUTPATIENT [facility] 60 MINUTES Mary Mcmillan APRN.HEARING AID DISPENSER [address] [place] [address] Referral ID Status Reason Start Date Expiration Date Visits Requested Visits Authorized [id number] Pending Review PCP Requested Referral 12/03/2023 03/02/2024 1 1 Summary Purpose Additional Source Comments Goals (unrecognized section and content) Goals may be documented in a n alternate sectionGoals may be documented in an alternate sectionGoals may be documented in an alternate section Source Comments (unrecognize d section and content) In the event this informatio n is protected by the Federal Confidentiality of Alcohol and Drug Abuse Patient Records regulations: The Federal rules restrict any use of the information to criminally investigate or prosecute any alcohol or drug abuse patient.[facility] the event this information is protected by the Federal Confidentiality of Alcohol and Drug Abuse Patient Records regulations: The Federal rules restrict any use of the information to criminally investigate or prosecute any alcohol or drug abuse patient.[facility] the event this information is protected by the Federal Confidentiality of Alcohol and Drug Abuse Patient Records regulations: The Federal rules restrict any use of the information to criminally investigate or prosecute any alcohol or drug abuse patient.[facility] the event this information is protected by the Federal Confidentiality of Alcohol and Drug Abuse Patient Records regulations: The Federal rules restrict any use of the information to criminally investigate or prosecute any alcohol or drug abuse patient.[facility] [facility]In the event this information is protected by the Federal Confidentiality of Alcohol and Drug Abuse Patient Records regulations: The Federal rules restrict any use of the information to criminally investigate or prosecute any alcohol or drug abuse patient.[facility] CenterIn the event this information is protected by the Federal Confidentiality of Alcohol and Drug Abuse Patient Records regulations: The Federal rules restrict any use of the information to criminally investigate or prosecute any alcohol or drug abuse patient.[facility] CenterIn the event this information is protected by the Federal Confidentiality of Alcohol and Drug Abuse Patient Records regulations: The Federal rules restrict any use of the information to criminally investigate or prosecute any alcohol or drug abuse patient.[facility] CenterIn the event this information is protected by the Federal Confidentiality of Alcohol and Drug Abuse Patient Records regulations: The Federal rules restrict any use of the information to criminally investigate or prosecute any alcohol or drug abuse patient.[facility] CenterIn the event this information is protected by the Federal Confidentiality of Alcohol and Drug Abuse Patient Records regulations: The Federal rules restrict any use of the information to criminally investigate or prosecute any alcohol or drug abuse patient.[facility] CenterIn the event this information is protected by the Federal Confidentiality of Alcohol and Drug Abuse Patient Records regulations: The Federal rules restrict any use of the information to criminally investigate or prosecute any alcohol or drug abuse patient.[facility] CenterIn the event this information is protected by the Federal Confidentiality of Alcohol and Drug Abuse Patient Records regulations: The Federal rules restrict any use of the information to criminally investigate or prosecute any alcohol or drug abuse patient.[facility] CenterIn the event this information is protected by the Federal Confidentiality of Alcohol and Drug Abuse Patient Records regulations: The Federal rules restrict any use of the information to criminally investigate or prosecute any alcohol or drug abuse patient.[facility] CenterIn the event this information is protected by the Federal Confidentiality of Alcohol and Drug Abuse Patient Records regulations: The Federal rules restrict any use of the information to criminally investigate or prosecute any alcohol or drug abuse patient.[facility] CenterIn the event this information is protected by the Federal Confidentiality of Alcohol and Drug Abuse Patient Records regulations: The Federal rules restrict any use of the information to criminally investigate or prosecute any alcohol or drug abuse patient.[facility] CenterIn the event this information is protected by the Federal Confidentiality of Alcohol and Drug Abuse Patient Records regulations: The Federal rules restrict any use of the information to criminally investigate or prosecute any alcohol or drug abuse patient.[facility] CenterIn the event this information is protected by the Federal Confidentiality of Alcohol and Drug Abuse Patient Records regulations: The Federal rules restrict any use of the information to criminally investigate or prosecute any alcohol or drug abuse patient.[facility] CenterIn the event this information is protected by the Federal Confidentiality of Alcohol and Drug Abuse Patient Records regulations: The Federal rules restrict any use of the information to criminally investigate or prosecute any alcohol or drug abuse patient.[facility] CenterIn the event this information is protected by the Federal Confidentiality of Alcohol and Drug Abuse Patient Records regulations: The Federal rules restrict any use of the information to criminally investigate or prosecute any alcohol or drug abuse patient.[facility] CenterIn the event this information is protected by the Federal Confidentiality of Alcohol and Drug Abuse Patient Records regulations: The Federal rules restrict any use of the information to criminally investigate or prosecute any alcohol or drug abuse patient.[facility] CenterIn the event this information is protected by the Federal Confidentiality of Alcohol and Drug Abuse Patient Records regulations: The Federal rules restrict any use of the information to criminally investigate or prosecute any alcohol or drug abuse patient.[facility] CenterIn the event this information is protected by the Federal Confidentiality of Alcohol and Drug Abuse Patient Records regulations: The Federal rules restrict any use of the information to criminally investigate or prosecute any alcohol or drug abuse patient.[facility] CenterIn the event this information is protected by the Federal Confidentiality of Alcohol and Drug Abuse Patient Records regulations: The Federal rules restrict any use of the information to criminally investigate or prosecute any alcohol or drug abuse patient.[facility] CenterIn the event this information is protected by the Federal Confidentiality of Alcohol and Drug Abuse Patient Records regulations: The Federal rules restrict any use of the information to criminally investigate or prosecute any alcohol or drug abuse patient.[facility] CenterIn the event this information is protected by the Federal Confidentiality of Alcohol and Drug Abuse Patient Records regulations: The Federal rules restrict any use of the information to criminally investigate or prosecute any alcohol or drug abuse patient.[facility] CenterIn the event this information is protected by the Federal Confidentiality of Alcohol and Drug Abuse Patient Records regulations: The Federal rules restrict any use of the information to criminally investigate or prosecute any alcohol or drug abuse patient.[facility] CenterIn the event this information is protected by the Federal Confidentiality of Alcohol and Drug Abuse Patient Records regulations: The Federal rules restrict any use of the information to criminally investigate or prosecute any alcohol or drug abuse patient.[facility] CenterIn the event this information is protected by the Federal Confidentiality of Alcohol and Drug Abuse Patient Records regulations: The Federal rules restrict any use of the information to criminally investigate or prosecute any alcohol or drug abuse patient.[facility] CenterIn the event this information is protected by the Federal Confidentiality of Alcohol and Drug Abuse Patient Records regulations: The Federal rules restrict any use of the information to criminally investigate or prosecute any alcohol or drug abuse patient.[facility] CenterIn the event this information is protected by the Federal Confidentiality of Alcohol and Drug Abuse Patient Records regulations: The Federal rules restrict any use of the information to criminally investigate or prosecute any alcohol or drug abuse patient.[facility] CenterIn the event this information is protected by the Federal Confidentiality of Alcohol and Drug Abuse Patient Records regulations: The Federal rules restrict any use of the information to criminally investigate or prosecute any alcohol or drug abuse patient.[facility] CenterIn the event this information is protected by the Federal Confidentiality of Alcohol and Drug Abuse Patient Records regulations: The Federal rules restrict any use of the information to criminally investigate or prosecute any alcohol or drug abuse patient.[facility] CenterIn the event this information is protected by the Federal Confidentiality of Alcohol and Drug Abuse Patient Records regulations: The Federal rules restrict any use of the information to criminally investigate or prosecute any alcohol or drug abuse patient.[facility] CenterIn the event this information is protected by the Federal Confidentiality of Alcohol and Drug Abuse Patient Records regulations: The Federal rules restrict any use of the information to criminally investigate or prosecute any alcohol or drug abuse patient.[facility] CenterIn the event this information is protected by the Federal Confidentiality of Alcohol and Drug Abuse Patient Records regulations: The Federal rules restrict any use of the information to criminally investigate or prosecute any alcohol or drug abuse patient.[facility] CenterIn the event this information is protected by the Federal Confidentiality of Alcohol and Drug Abuse Patient Records regulations: The Federal rules restrict any use of the information to criminally investigate or prosecute any alcohol or drug abuse patient.[facility] CenterIn the event this information is protected by the Federal Confidentiality of Alcohol and Drug Abuse Patient Records regulations: The Federal rules restrict any use of the information to criminally investigate or prosecute any alcohol or drug abuse patient.[facility] CenterIn the event this information is protected by the Federal Confidentiality of Alcohol and Drug Abuse Patient Records regulations: The Federal rules restrict any use of the information to criminally investigate or prosecute any alcohol or drug abuse patient.[facility] CenterIn the event this information is protected by the Federal Confidentiality of Alcohol and Drug Abuse Patient Records regulations: The Federal rules restrict any use of the information to criminally investigate or prosecute any alcohol or drug abuse patient.[facility] CenterIn the event this information is protected by the Federal Confidentiality of Alcohol and Drug Abuse Patient Records regulations: The Federal rules restrict any use of the information to criminally investigate or prosecute any alcohol or drug abuse patient.[facility] CenterIn the event this information is protected by the Federal Confidentiality of Alcohol and Drug Abuse Patient Records regulations: The Federal rules restrict any use of the information to criminally investigate or prosecute any alcohol or drug abuse patient.[facility] CenterIn the event this information is protected by the Federal Confidentiality of Alcohol and Drug Abuse Patient Records regulations: The Federal rules restrict any use of the information to criminally investigate or prosecute any alcohol or drug abuse patient.[facility] CenterIn the event this information is protected by the Federal Confidentiality of Alcohol and Drug Abuse Patient Records regulations: The Federal rules restrict any use of the information to criminally investigate or prosecute any alcohol or drug abuse patient.[facility] CenterIn the event this information is protected by the Federal Confidentiality of Alcohol and Drug Abuse Patient Records regulations: The Federal rules restrict any use of the information to criminally investigate or prosecute any alcohol or drug abuse patient.[facility] CenterIn the event this information is protected by the Federal Confidentiality of Alcohol and Drug Abuse Patient Records regulations: The Federal rules restrict any use of the information to criminally investigate or prosecute any alcohol or drug abuse patient.[facility] CenterIn the event this information is protected by the Federal Confidentiality of Alcohol and Drug Abuse Patient Records regulations: The Federal rules restrict any use of the information to criminally investigate or prosecute any alcohol or drug abuse patient.[facility] CenterIn the event this information is protected by the Federal Confidentiality of Alcohol and Drug Abuse Patient Records regulations: The Federal rules restrict any use of the information to criminally investigate or prosecute any alcohol or drug abuse patient.[facility] CenterIn the event this information is protected by the Federal Confidentiality of Alcohol and Drug Abuse Patient Records regulations: The Federal rules restrict any use of the information to criminally investigate or prosecute any alcohol or drug abuse patient.[facility] CenterIn the event this information is protected by the Federal Confidentiality of Alcohol and Drug Abuse Patient Records regulations: The Federal rules restrict any use of the information to criminally investigate or prosecute any alcohol or drug abuse patient.[facility] CenterIn the event this information is protected by the Federal Confidentiality of Alcohol and Drug Abuse Patient Records regulations: The Federal rules restrict any use of the information to criminally investigate or prosecute any alcohol or drug abuse patient.[facility] CenterIn the event this information is protected by the Federal Confidentiality of Alcohol and Drug Abuse Patient Records regulations: The Federal rules restrict any use of the information to criminally investigate or prosecute any alcohol or drug abuse patient.[facility] CenterIn the event this information is protected by the Federal Confidentiality of Alcohol and Drug Abuse Patient Records regulations: The Federal rules restrict any use of the information to criminally investigate or prosecute any alcohol or drug abuse patient.[facility] CenterIn the event this information is protected by the Federal Confidentiality of Alcohol and Drug Abuse Patient Records regulations: The Federal rules restrict any use of the information to criminally investigate or prosecute any alcohol or drug abuse patient.[facility] CenterIn the event this information is protected by the Federal Confidentiality of Alcohol and Drug Abuse Patient Records regulations: The Federal rules restrict any use of the information to criminally investigate or prosecute any alcohol or drug abuse patient.[facility] CenterIn the event this information is protected by the Federal Confidentiality of Alcohol and Drug Abuse Patient Records regulations: The Federal rules restrict any use of the information to criminally investigate or prosecute any alcohol or drug abuse patient.[facility] CenterIn the event this information is protected by the Federal Confidentiality of Alcohol and Drug Abuse Patient Records regulations: The Federal rules restrict any use of the information to criminally investigate or prosecute any alcohol or drug abuse patient.[facility] CenterIn the event this information is protected by the Federal Confidentiality of Alcohol and Drug Abuse Patient Records regulations: The Federal rules restrict any use of the information to criminally investigate or prosecute any alcohol or drug abuse patient.[facility] CenterIn the event this information is protected by the Federal Confidentiality of Alcohol and Drug Abuse Patient Records regulations: The Federal rules restrict any use of the information to criminally investigate or prosecute any alcohol or drug abuse patient.[facility] CenterIn the event this information is protected by the Federal Confidentiality of Alcohol and Drug Abuse Patient Records regulations: The Federal rules restrict any use of the information to criminally investigate or prosecute any alcohol or drug abuse patient.[facility] CenterIn the event this information is protected by the Federal Confidentiality of Alcohol and Drug Abuse Patient Records regulations: The Federal rules restrict any use of the information to criminally investigate or prosecute any alcohol or drug abuse patient.[facility] CenterIn the event this information is protected by the Federal Confidentiality of Alcohol and Drug Abuse Patient Records regulations: The Federal rules restrict any use of the information to criminally investigate or prosecute any alcohol or drug abuse patient.[facility] CenterIn the event this information is protected by the Federal Confidentiality of Alcohol and Drug Abuse Patient Records regulations: The Federal rules restrict any use of the information to criminally investigate or prosecute any alcohol or drug abuse patient.[facility] CenterIn the event this information is protected by the Federal Confidentiality of Alcohol and Drug Abuse Patient Records regulations: The Federal rules restrict any use of the information to criminally investigate or prosecute any alcohol or drug abuse patient.[facility] CenterIn the event this information is protected by the Federal Confidentiality of Alcohol and Drug Abuse Patient Records regulations: The Federal rules restrict any use of the information to criminally investigate or prosecute any alcohol or drug abuse patient.[facility] CenterIn the event this information is protected by the Federal Confidentiality of Alcohol and Drug Abuse Patient Records regulations: The Federal rules restrict any use of the information to criminally investigate or prosecute any alcohol or drug abuse patient.[facility] CenterIn the event this information is protected by the Federal Confidentiality of Alcohol and Drug Abuse Patient Records regulations: The Federal rules restrict any use of the information to criminally investigate or prosecute any alcohol or drug abuse patient.[facility] CenterIn the event this information is protected by the Federal Confidentiality of Alcohol and Drug Abuse Patient Records regulations: The Federal rules restrict any use of the information to criminally investigate or prosecute any alcohol or drug abuse patient.[facility] CenterIn the event this information is protected by the Federal Confidentiality of Alcohol and Drug Abuse Patient Records regulations: The Federal rules restrict any use of the information to criminally investigate or prosecute any alcohol or drug abuse patient.[facility] CenterIn the event this information is protected by the Federal Confidentiality of Alcohol and Drug Abuse Patient Records regulations: The Federal rules restrict any use of the information to criminally investigate or prosecute any alcohol or drug abuse patient.[facility] CenterIn the event this information is protected by the Federal Confidentiality of Alcohol and Drug Abuse Patient Records regulations: The Federal rules restrict any use of the information to criminally investigate or prosecute any alcohol or drug abuse patient.[facility] CenterIn the event this information is protected by the Federal Confidentiality of Alcohol and Drug Abuse Patient Records regulations: The Federal rules restrict any use of the information to criminally investigate or prosecute any alcohol or drug abuse patient.[facility] CenterIn the event this information is protected by the Federal Confidentiality of Alcohol and Drug Abuse Patient Records regulations: The Federal rules restrict any use of the information to criminally investigate or prosecute any alcohol or drug abuse patient.[facility] CenterIn the event this information is protected by the Federal Confidentiality of Alcohol and Drug Abuse Patient Records regulations: The Federal rules restrict any use of the information to criminally investigate or prosecute any alcohol or drug abuse patient.[facility] CenterIn the event this information is protected by the Federal Confidentiality of Alcohol and Drug Abuse Patient Records regulations: The Federal rules restrict any use of the information to criminally investigate or prosecute any alcohol or drug abuse patient.[facility] CenterIn the event this information is protected by the Federal Confidentiality of Alcohol and Drug Abuse Patient Records regulations: The Federal rules restrict any use of the information to criminally investigate or prosecute any alcohol or drug abuse patient.[facility] CenterIn the event this information is protected by the Federal Confidentiality of Alcohol and Drug Abuse Patient Records regulations: The Federal rules restrict any use of the information to criminally investigate or prosecute any alcohol or drug abuse patient.[facility] CenterIn the event this information is protected by the Federal Confidentiality of Alcohol and Drug Abuse Patient Records regulations: The Federal rules restrict any use of the information to criminally investigate or prosecute any alcohol or drug abuse patient.[facility] CenterIn the event this information is protected by the Federal Confidentiality of Alcohol and Drug Abuse Patient Records regulations: The Federal rules restrict any use of the information to criminally investigate or prosecute any alcohol or drug abuse patient.[facility] CenterIn the event this information is protected by the Federal Confidentiality of Alcohol and Drug Abuse Patient Records regulations: The Federal rules restrict any use of the information to criminally investigate or prosecute any alcohol or drug abuse patient.[facility] CenterIn the event this information is protected by the Federal Confidentiality of Alcohol and Drug Abuse Patient Records regulations: The Federal rules restrict any use of the information to criminally investigate or prosecute any alcohol or drug abuse patient.[facility] CenterIn the event this information is protected by the Federal Confidentiality of Alcohol and Drug Abuse Patient Records regulations: The Federal rules restrict any use of the information to criminally investigate or prosecute any alcohol or drug abuse patient.[facility] CenterIn the event this information is protected by the Federal Confidentiality of Alcohol and Drug Abuse Patient Records regulations: The Federal rules restrict any use of the information to criminally investigate or prosecute any alcohol or drug abuse patient.[facility] CenterIn the event this information is protected by the Federal Confidentiality of Alcohol and Drug Abuse Patient Records regulations: The Federal rules restrict any use of the information to criminally investigate or prosecute any alcohol or drug abuse patient.[facility] CenterIn the event this information is protected by the Federal Confidentiality of Alcohol and Drug Abuse Patient Records regulations: The Federal rules restrict any use of the information to criminally investigate or prosecute any alcohol or drug abuse patient.[facility] CenterIn the event this information is protected by the Federal Confidentiality of Alcohol and Drug Abuse Patient Records regulations: The Federal rules restrict any use of the information to criminally investigate or prosecute any alcohol or drug abuse patient.[facility] CenterIn the event this information is protected by the Federal Confidentiality of Alcohol and Drug Abuse Patient Records regulations: The Federal rules restrict any use of the information to criminally investigate or prosecute any alcohol or drug abuse patient.[facility] CenterIn the event this information is protected by the Federal Confidentiality of Alcohol and Drug Abuse Patient Records regulations: The Federal rules restrict any use of the information to criminally investigate or prosecute any alcohol or drug abuse patient.[facility] CenterIn the event this information is protected by the Federal Confidentiality of Alcohol and Drug Abuse Patient Records regulations: The Federal rules restrict any use of the information to criminally investigate or prosecute any alcohol or drug abuse patient.[facility] CenterIn the event this information is protected by the Federal Confidentiality of Alcohol and Drug Abuse Patient Records regulations: The Federal rules restrict any use of the information to criminally investigate or prosecute any alcohol or drug abuse patient.[facility] CenterIn the event this information is protected by the Federal Confidentiality of Alcohol and Drug Abuse Patient Records regulations: The Federal rules restrict any use of the information to criminally investigate or prosecute any alcohol or drug abuse patient.[facility] CenterIn the event this information is protected by the Federal Confidentiality of Alcohol and Drug Abuse Patient Records regulations: The Federal rules restrict any use of the information to criminally investigate or prosecute any alcohol or drug abuse patient.[facility] Reason for Visit (unrecogniz ed section and content) Reason Comments Results Reason Onset Date Comments Refill Request 12/22/2021 Reason Comments Sore Throat Fever, chills, body aches x 3 days Reason Comments Sore Throat Possible strep x 1.5 weeks Reason Comments Patient Question Reason Comments Nausea ZALDIVAR, fatigue, dizzine ss, diarrhea x1.5 weeks Reason Comments Follow Up UC follow up Reason Comments Appointment Needs sooner appoint ment Reason Comments Orders Reason Comments New Pain Reason Onset Date Comments Refill Request 11/30/2022 Reason Comments Yearly Exam Reason Comments Yearly Exam Specialty Diagnoses / Procedures Referred By Contac t Referred To Contact Gynecology Diagnoses Women's annual routine gynecological examination Procedures CONSULT TO GYNECOLOGY OFFICE/OUTPATIENT NEW HIGH MDM 60-74 MINUTES Mary Mcmillan APRN.HEARING AID DISPENSER [address] [place] [address] Referral ID Status Reason Start Date Expiration Date V isits Requested Visits Authorized [id number] Closed PCP Requested Referral Auto-Generated Referral 12/02/2022 12/02/2023 1 1 Reason Comments Sore Throat ST, bodyaches and fe anton-exposed to COVID x 2 days Reason Comments Patient Education Assessment Specialty Diagnoses / Procedures Referred By Contac t Referred To Contact Nutrition Diagnoses Weight gain Procedures CONSULT TO NUTRITION THERAPY MEDICAL NUTRITION ASSMT&IVNTJ INDIV EACH 15 [place] MEDICAL NUTRITION ASSMT&IVNTJ INDIV EACH 15 [place] MEDICAL NUTRITION ASSMT&IVNTJ INDIV EACH 15 [place] MEDICAL NUTRITION ASSMT&IVNTJ INDIV EACH 15 [place] Mary Mcmillan APRN.HEARING AID DISPENSER [address] [place] [address] Referral ID Status Reason Start Date Expiration Date V isits Requested Visits Authorized [id number] Closed PCP Requested Referral 12/02/2022 12/02/2023 1 1 Reason Onset Date Comments Refill Request 12/29/[address] Specialty Diagnoses / Procedures Referred By Contac t Referred To Contact CT IMAGING Diagnoses Arthritis of midfoot Contusion of lesser toe of left foot without damage to nail, initial encounter Pain in left foot Procedures CT FOOT WO IVCON LEFT CT LOWER EXTREMITY W/O CONTRAST MATERIAL [address] [place] [address] [place] [address] Referral ID Status Reason Start Date Expiration Date V isits Requested Visits Authorized [id number] Closed Auto-Generate d Referral 10/08/2022 11/07/2023 1 1 Reason Comments Request Outside Medical Records Reason Comments Pain Reason Onset Date Comments Refill Request 02/28/2023 Reason Comments Medication Question Reason Comments Patient Update Appointment Reason Comments Follow Up New head and neck pain Reason Comments Results Reason Onset Date Comments Refill Request 06/06/2023 Reason Onset Date Comments Refill Request 06/27/2023 Reason Comments Acute Visit weight loss disscuss ion Reason Comments Refill Request Reason Comments Results Labs Reason Comments Prior Authorization Request (Zepbound) Reason Comments Follow Up Medication follow up , seen 07/22 and Atenolol was decreased with no improvement, still having dizziness, swelling in bilateral lower extremities Reason Comments Follow Up 4 week follow up Reason Comments Cough Cough, ST, congestio n and stomach hurts x 10 days Reason Onset Date Comments Refill Request 10/16/2023 Reason Comments Results Zio Orders Reason Comments Follow Up 1 month follow up me ds and zio Reason Comments Results Lab/Xray Orders Specialty Diagnoses / Procedures Referred By Hansa vásquez Referred To Contact CT IMAGING Diagnoses Chronic cough Abnormal chest x-ray Procedures CT CHEST W IVCON DIAGNOSTIC COMPUTED TOMOGRAPHY THORAX W/CONTRAST Mary Mcmillan, GIFTED TEACHER.HEARING AID DISPENSER [address] [place] [address] [facility] [place] [address] Referral ID Status Reason Start Date Expiration Date V isits Requested Visits Authorized [id number] Closed Auto-Generate d Referral 10/21/2023 12/20/2023 1 1 Reason Comments Results Chest CT Reason Comments Behavioral Health/Social Work Reason Comments Wellness Reason Comments Follow Up 5 1/2 months post visit OA bilateral kne es Reason Comments Surgical Consult NEW Specialty Diagnoses / Procedures Referred By Hansa vásquez Referred To Contact Bariatrics Diagnoses Obesity, unspecified Procedures eval n treat [facility] [address] [place] [address] Referral ID Status Reason Start Date Expiration Date V isits Requested Visits Authorized [id number] Pending Review 12/20/2023 06/17/2024 1 1 Reason Onset Date Comments Financial Issues 01/04/2024 Financial File 2023 Surgery Scheduling 01/04/2024 Initial Sched uling - Orders Pended Reason Comments EGD Reason Onset Date Comments Refill Request 01/25/2024 Reason Comments Insurance Authorization Reason Comments Weight Management D/E new 1 of 6 Reason Onset Date Comments Refill Request 02/21/2024 Reason Comments Cough Cough, ST, chest con gestion and ZALDIVAR x 3 days Reason Onset Date Comments Refill Request 05/24/2024 Reason Comments Weight Management D/E 1 of 6 restart Reason Comments Weight Loss D/E 2/6 Reason Onset Date Comments Refill Request 08/28/2024 Reason Comments Mass Sore spot on left si de of head above ear x week Reason Comments Weight Loss D/E 3/6 Reason Comments Weight Loss D/e 4/6 Reason Onset Date Comments Appointment 11/15/2024 Missed appointme nt Reason Comments Weight Loss D/E 5/6 Care Teams (unrecognized sec tion and content) [employer]inery Process Technician Relationship Specialty Start Date End Date Susan Sevilla MD [address] [place] [address] PCP - General Family Practice 03/26/17 Oil Refinery Process Technician Relationship Specialty Start Date End Date Susan Sevilla MD [address] [place] [address] PCP - General Family Practice 03/26/17 Oil Refinery Process Technician Relationship Specialty Start Date End Date Susan Sevilla MD [address] [place] [address] PCP - General Family Practice 03/26/17 Oil Refinery Process Technician Relationship Specialty Start Date End Date Susan Sevilla MD [address] [place] [address] PCP - General Family Practice 03/26/17 Oil Refinery Process Technician Relationship Specialty Start Date End Date Susan Sevilla MD [address] [place] [address] PCP - General Family Practice 03/26/17 Oil Refinery Process Technician Relationship Specialty Start Date End Date Susan Sevilla MD [address] [place] [address] PCP - General Family Medicine 03/26/17 Oil Refinery Process Technician Relationship Specialty Start Date End Date Susan Sevilla MD [address] [place] [address] PCP - General Family Medicine 03/26/17 Team Status: Active Member Role Status Dates Dr. Susan Sevilla MD Family Provider Active Dr. Susan Sevilla MD Primary Care Provider Active Team Status: Inactive Member Role Status Dates Dr. Susan Sevilla MD Primary Care Provider, Referr ing Provider Active Dr. Skip Quinn DO Attending Provider Active Team Status: Inactive Member Role Status Dates Dr. Susan Sevilla MD Primary Care Provider, Referr ing Provider Active Dr. Nani Parnell MD Attending Provider Active Team Status: Inactive Member Role Status Dates Dr. Susan Sevilla MD Primary Care Provider Active Dr. Kaushik Zhou MD Attending Provider, Referring Pr ovider Active Team Status: Active Member Role Status Dates Dr. Susan Sevilla MD Primary Care Provider Active Dr. Nani Parnell MD Attending Provide r, Referring Provider, Other Provider Active Team Status: Inactive Member Role Status Dates Dr. Susan Sevilla MD Primary Care Provider Active Dr. Nani Parnell MD Attending Provider, Referring P rovider Active Oil Refinery Process Technician Relationship Specialty Start Date End Date Susan Sevilla MD [address] [place] [address] PCP - General Family Medicine 03/26/17 Oil Refinery Process Technician Relationship Specialty Start Date End Date Susan Sevilla MD [address] [place] [address] PCP - General Family Medicine 03/26/17 Oil Refinery Process Technician Relationship Specialty Start Date End Date Susan Sevilla MD [address] [place] [address] PCP - General Family Medicine 03/26/17 Oil Refinery Process Technician Relationship Specialty Start Date End Date Susan Sevilla MD [address] [place] [address] PCP - General Family Medicine 03/26/17 Oil Refinery Process Technician Relationship Specialty Start Date End Date Susan Sevilla MD [address] [place] [address] PCP - General Family Medicine 03/26/17 Oil Refinery Process Technician Relationship Specialty Start Date End Date Susan Sevilla MD [address] [place] [address] PCP - General Family Medicine 03/26/17 Oil Refinery Process Technician Relationship Specialty Start Date End Date Susan Sevilla MD [address] [place] [address] PCP - General Family Medicine 03/26/17 Oil Refinery Process Technician Relationship Specialty Start Date End Date Susan Sevilla MD [address] [place] [address] PCP - General Family Medicine 03/26/17 Oil Refinery Process Technician Relationship Specialty Start Date End Date Susan Sevilla MD [address] [place] [address] PCP - General Family Medicine 03/26/17 Oil Refinery Process Technician Relationship Specialty Start Date End Date uSsan Sevilla MD [address] [place] [address] PCP - General Family Medicine 03/26/17 Oil Refinery Process Technician Relationship Specialty Start Date End Date Susan Sevilla MD [address] [place] [address] PCP - General Family Medicine 03/26/17 Oil Refinery Process Technician Relationship Specialty Start Date End Date Susan Sevilla MD [address] [place] [address] PCP - General Family Medicine 03/26/17 Oil Refinery Process Technician Relationship Specialty Start Date End Date Susan Sevilla MD [address] [place] [address] PCP - General Family Medicine 03/26/17 Oil Refinery Process Technician Relationship Specialty Start Date End Date Susan Sevilla MD [address] [place] [address] PCP - General Family Medicine 03/26/17 Oil Refinery Process Technician Relationship Specialty Start Date End Date Susan Sevilla MD [address] [place] [address] PCP - General Family Medicine 03/26/17 Oil Refinery Process Technician Relationship Specialty Start Date End Date Susan Sevilla MD [address] [place] [address] PCP - General Family Medicine 03/26/17 Oil Refinery Process Technician Relationship Specialty Start Date End Date Susan Sevilla MD [address] [place] [address] PCP - General Family Medicine 03/26/17 Oil Refinery Process Technician Relationship Specialty Start Date End Date Susan Sevilla MD [address] [place] [address] PCP - General Family Medicine 03/26/17 Oil Refinery Process Technician Relationship Specialty Start Date End Date Susan Sevilla MD [address] [place] [address] PCP - General Family Medicine 03/26/17 Oil Refinery Process Technician Relationship Specialty Start Date End Date Susan Sevilla MD [address] [place] [address] PCP - General Family Medicine 03/26/17 Oil Refinery Process Technician Relationship Specialty Start Date End Date Susan Sevilla MD [address] [place] [address] PCP - General Family Medicine 03/26/17 Oil Refinery Process Technician Relationship Specialty Start Date End Date Susan Sevilla MD [address] [place] [address] PCP - General Family Medicine 03/26/17 Oil Refinery Process Technician Relationship Specialty Start Date End Date Susan Sevilla MD [address] [place] [address] PCP - General Family Medicine 03/26/17 Oil Refinery Process Technician Relationship Specialty Start Date End Date Susan Sevilla MD [address] [place] [address] PCP - General Family Medicine 03/26/17 Oil Refinery Process Technician Relationship Specialty Start Date End Date Susan Sevilla MD [address] [place] [address] PCP - General Family Medicine 03/26/17 Oil Refinery Process Technician Relationship Specialty Start Date End Date Susan Sevilla MD [address] [place] [address] PCP - General Family Medicine 03/26/17 Oil Refinery Process Technician Relationship Specialty Start Date End Date Susan Sevilla MD [address] [place] [address] PCP - General Family Medicine 03/26/17 Oil Refinery Process Technician Relationship Specialty Start Date End Date Susan Sevilla MD [address] [place] [address] PCP - General Family Medicine 03/26/17 Oil Refinery Process Technician Relationship Specialty Start Date End Date Susan Sevilla MD [address] [place] [address] PCP - General Family Medicine 03/26/17 Oil Refinery Process Technician Relationship Specialty Start Date End Date Susan Sevilla MD [address] [place] [address] PCP - General Family Medicine 03/26/17 Oil Refinery Process Technician Relationship Specialty Start Date End Date Susan Sevilla MD [address] [place] [address] PCP - General Family Medicine 03/26/17 Oil Refinery Process Technician Relationship Specialty Start Date End Date Susan Sevilla MD [address] [place] [address] PCP - General Family Medicine 03/26/17 Oil Refinery Process Technician Relationship Specialty Start Date End Date Susan Sevilla MD [address] [place] [address] PCP - General Family Medicine 03/26/17 Oil Refinery Process Technician Relationship Specialty Start Date End Date Susan Sevilla MD [address] [place] [address] PCP - General Family Medicine 03/26/17 Oil Refinery Process Technician Relationship Specialty Start Date End Date Susan Sevilla MD [address] [place] [address] PCP - General Family Medicine 03/26/17 Oil Refinery Process Technician Relationship Specialty Start Date End Date Susan Sevilla MD [address] [place] [address] PCP - General Family Medicine 03/26/17 Oil Refinery Process Technician Relationship Specialty Start Date End Date Susan Sevilla MD [address] [place] [address] PCP - General Family Medicine 03/26/17 Oil Refinery Process Technician Relationship Specialty Start Date End Date Susan Sevilla [address] [place] [address] PCP - General Family Medicine 01/04/24 Nate Winters MD [address] [place] [address] [address] [place] [address] Surgeon General Surgery 12/22/23 Oil Refinery Process Technician Relationship Specialty Start Date End Date Susan Sevilla [address] [place] [address] PCP - General Family Medicine 01/04/24 Nate Winters MD [address] [place] [address] [address] [place] [address] Surgeon General Surgery 12/22/23 Oil Refinery Process Technician Relationship Specialty Start Date End Date Susan Sevilla [address] [place] [address] PCP - General Family Medicine 01/04/24 Nate Winters MD [address] [place] [address] [address] [place] [address] Surgeon General Surgery 12/22/23 Oil Refinery Process Technician Relationship Specialty Start Date End Date Susan Sevilla [address] [place] [address] PCP - General Family Medicine 01/04/24 Nate Winters MD [address] [place], [place] [id number] Surgeon General Surgery 12/22/23 Oil Refinery Process Technician Relationship Specialty Start Date End Date Susan Sevilla [address] [place] [address] PCP - General Family Medicine 01/04/24 Nate Winters MD [address] [place], [place] [id number] Surgeon General Surgery 12/22/23 Oil Refinery Process Technician Relationship Specialty Start Date End Date Susan Sevilla MD [address] [place] [address] PCP - General Family Medicine 03/26/17 Oil Refinery Process Technician Relationship Specialty Start Date End Date Susan Sevilla [address] [place] [address] PCP - General Family Medicine 01/04/24 [address] Winters MD [address] [place], [place] [id number] Surgeon General Surgery 12/22/23 Oil Refinery Process Technician Relationship Specialty Start Date End Date Susan Sevilla [address] [place] [address] PCP - General Family Medicine 01/04/24 Nate Winters MD [address] [place] [address] Surgeon General Surgery 12/22/23 Oil Refinery Process Technician Relationship Specialty Start Date End Date Susan Sevilla [address] [place] [address] PCP - General Family Medicine 01/04/24 Nate Winters MD [address] [place] [address] [address] [place], [place] [id number] Surgeon General Surgery 12/22/23 Oil Refinery Process Technician Relationship Specialty Start Date End Date Susan Sevilla [address] [place] [address] PCP - General Family Medicine 01/04/24 Nate Winters MD [address] [place] [address] [address] [place] [address] Surgeon General Surgery 12/22/23 Oil Refinery Process Technician Relationship Specialty Start Date End Date Susan Sevilla MD [address] [place] [address] PCP - General Family Medicine 03/26/17 Mary Mcmillan APRN.HEARING AID DISPENSER [address] [place] [address] Director Clinical Data Family Medicine 03/12/24 Oil Refinery Process Technician Relationship Specialty Start Date End Date Susan Sevilla MD [address] [place] [address] PCP - General Family Medicine 03/26/17 Mary Mcmillan APRN.HEARING AID DISPENSER [address] [place] [address] Director Clinical Data Family Medicine 03/12/24 Oil Refinery Process Technician Relationship Specialty Start Date End Date Susan Sevilla [address] [place] [address] PCP - General Family Medicine 01/04/24 Nate Winters MD [address] [place] [address] [address] [place], [place] [id number] Surgeon General Surgery 12/22/23 Oil Refinery Process Technician Relationship Specialty Start Date End Date Susan Sevilla [address] [place] [address] PCP - General Family Medicine 01/04/24 Nate Winters MD [address] [place] [address] [address] [place] [address] Surgeon General Surgery 12/22/23 Oil Refinery Process Technician Relationship Specialty Start Date End Date Susan Sevilla MD [address] [place] [address] PCP - General Family Medicine 03/26/17 Mary Mcmillan, GIFTED TEACHER.HEARING AID DISPENSER [address] [place] [address] Director Clinical Data Family Medicine 03/12/24 Neal Gomez, GIFTED TEACHER.HEARING AID DISPENSER [address] [place] [address] Director Clinical Data Family Medicine 03/21/24 Oil Refinery Process Technician Relationship Specialty Start Date End Date Susan Sevilla MD [address] [place] [address] PCP - General Family Medicine 03/26/17 Mary Mcmillan GIFTED TEACHER.HEARING AID DISPENSER [address] [place] [address] Director Clinical Data Family Medicine 03/12/24 Neal Gomez APRN.HEARING AID DISPENSER [address] [place] [address] Director Clinical Data Family Medicine 03/21/24 Oil Refinery Process Technician Relationship Specialty Start Date End Date Susan Sevilla [address] [place] [address] PCP - General Family Medicine 01/04/24 Nate Winters MD [address] [place] [address] [address] [place] [address] Surgeon General Surgery 12/22/23 Oil Refinery Process Technician Relationship Specialty Start Date End Date Susan Sevilla MD [address] [place] [address] PCP - General Family Medicine 03/26/17 Neal Gomez GIFTED TEACHER.HEARING AID DISPENSER [address] [place] [address] Director Clinical Data Family Medicine 03/21/24 Oil Refinery Process Technician Relationship Specialty Start Date End Date Susan Sevilla MD [address] [place] [address] PCP - General Family Medicine 03/26/17 Neal Gomez, GIFTED TEACHER.HEARING AID DISPENSER [address] [place] [address] Director Clinical Data Family Medicine 03/21/24 Oil Refinery Process Technician Relationship Specialty Start Date End Date Susan Sevilla [address] [place] [address] PCP - General Family Medicine 01/04/24 Nate Winters MD [address] [facility] [address] [place] [address] Surgeon General Surgery 12/22/23 Oil Refinery Process Technician Relationship Specialty Start Date End Date Susan Sevilla [address] [place] [address] PCP - General Family Medicine 01/04/24 Nate Winters MD [address] [facility] [address] [place] [address] Surgeon General Surgery 12/22/23 INFORMATION SOURCE (unrecogn ized section and content) DATE CREATED AUTHOR 06/30/2023 [facility] DATE CREATED AUTHOR AUTHOR'S ORGANIZ ATION 05/13/2024 [facility] DATE CREATED AUTHOR AUTHOR'S ORGANIZ ATION 11/25/[address] [facility] DATE CREATED AUTHOR AUTHOR'S ORGANIZ ATION 12/01/2024 [facility] Continuous Active and Recently Administ ered Medications (unrecognized section and content) Medication Order 03/08/2024 03/09/2024 03/10/2024 sodium chloride 0.9 % infusion 50 mL/hr, IntraVENous, Continuous, Starting on Wed03/10/24 at 0930, Preprocedure 0955 ([facility] ider: Blair Adan RN) PRN Medication Order 03/08/2024 03/09/2024 03/10/2024 ondansetron (Zofran) injection 4 mg 4 mg, IntraVENous, Once PRN, nausea, vomiting, Starting on Wed03/10/24 at 0926, For 1 dose, Preprocedure FOR RECORDS PERTAINING TO PATIENTS WHO ARE OR HAVE BEEN ENROLLED IN A CHEMICAL DEPENDENCY/SUBSTANCEABUSE PROGRAM, SOME INFORMATION MAY BE OMITTED. This clinical summary was aggregated from multiple sources. Caution should be exercised in using it in the provision of clinical care. This summary normalizes information from multiple sources, and as a consequence, information in this document may materially change the coding, format and clinical context of patient data. In addition, data may be omitted in some cases. CLINICAL DECISIONS SHOULD BE BASED ON THE PRIMARY CLINICAL RECORDS. [employer] provides no warranty or guarantee of the accuracy or completeness of information in this document.
[2024-12-09 14:06] VITALS: BP 140/75; PULSE 87; RESP 18; TEMP 37.1; O2SAT 97
== END 2024-12-09 14:08 | disposition home or self-care (01) ==
PROVIDERS: Emergency Provider Student in an Organized Health Care Education/Training Program; PCP Family Medicine; Visit Provider Student in an Organized Health Care Education/Training Program
DX: L03.311 Cellulitis of abdominal wall (principal); I10 Essential (primary) hypertension; Z48.00 Encounter for change or removal of nonsurgical wound dressing; K21.9 Gastro-esophageal reflux disease without esophagitis; Z79.899 Other long term (current) drug therapy
CPT/HCPCS: 99282

== ENCOUNTER 2024-12-11 22:46 | Emergency (ER) | payer MEDICAID, SELFPAY ==
[2024-12-11 22:47] VITALS: BP 176/108; PULSE 112; RESP 18; TEMP 36.6; O2SAT 98; BMI 48.5
--- NOTE | 2024-12-11 22:59 | EDS_ITS ---
HPI History of Present Illness Chief Complaint: Cellulitis Informant: patient Narrative Narrative: 49-year-old female presents with a tender swollen area on her abdominal wall that started maybe 5 days ago. She was seen here 2 days ago for it, she was treated with antibiotics because it was not amenable to incision and drainage at that point. She states yesterday it started to ooze pus, that continued today and she has achy pain all over, feeling a little out of breath, and malaise. She denies any known fevers or chills. She has a history of MRSA infection on her face that required plastics. She been taken the antibiotic she was prescribed. [facility] Medical History Bradycardia BPPV (benign paroxysmal positional vertigo) Cholelithiasis Diaphragmatic hernia Ventricular hypertrophy Dizziness DDD (degenerative disc disease), lumbar Depression GERD (gastroesophageal reflux disease) HTN (hypertension) Morbid obesity Hypertrophic scar of skin Arthritis Shortness of breath on exertion Vision problems Headache Anxiety Back pain Migraine headache Non-smoker Hx of fracture of ankle History of methicillin resistant staphylococcus aureus (MRSA) Home Medications ?Medication ?Instructions ?Recorded ?Last Taken ?Type rizatriptan 10 mg tablet 1 tab PO PRN PRN Migraine He adache 09/26/21 Unknown History cholecalciferol (vitamin D3) 125 125 mcg PO QDAY 10/31 Unknown History mcg (5,000 unit) capsule lisinopril 10 mg tablet 10 mg PO QDAY 12/08/23 Unkno wn History cephalexin 500 mg capsule 500 mg PO Q6 7 days #24 CAPS ULES 12/09/24 Unknown Rx doxycycline monohydrate 100 mg 100 mg PO BID #14 CAPSU LES 12/09/24 Unknown Rx capsule hydrocodone-acetaminophen 5-325mg 0.5 - 1.5 tab PO MATTHIEU LY PRN pain 12/12/24 Unknown History 5mg-325mg omeprazole 40 mg capsule,delayed 40 mg PO BID 12/12/24 Unknown History release tizanidine 4 mg tablet 4 mg PO DAILY 12/12/24 Unkno wn History Allergy/AdvReac Type Severity Reaction Status Date / Time bupropion Allergy Itching Verified 12/11/24 22:48 Family History Mother Anxiety Arthritis Depression Diabetes High cholesterol Osteoporosis Hypertension Sister Anxiety Depression Hypertension STD (female) Grandmother Arthritis Depression Hypertension Grandfather Hypertension Arthritis Surgical History History of excision of lesion Stomach tumor (benign) History of ankle surgery Hx of nasal septoplasty Hx of hysterectomy Hx laparoscopic cholecystectomy Social History Smoking Status: Never smoker alcohol intake: current details: A Couple Of Drinks Per Month substance use type: does not use what type of physical activity do you participate in: none ROS ROS ED Constitutional Constitutional ED: Reports body ache(s) and malaise; Denies chills or fever(s) Eyes Eyes: Denies change in vision or diplopia ENT ENT ED: Denies rhinorrhea or sore throat Cardiovascular Cardiovascular: Denies chest pain or palpitations Respiratory/Chest Respiratory/Chest: Denies cough or dyspnea Gastrointestinal Gastrointestinal: Reports other Details: Abdominal wall pain but no other abdominal pain or GI symptoms ; Denies diarrhea, nausea or vomiting Genitourinary Genitourinary ED: Denies dysuria or hematuria Musculoskeletal Musculoskeletal: Denies back pain or neck pain Integumentary Reports abscess and rash Neurologic Neurologic: Denies headache(s), paresthesias or weakness Psychiatric Psychiatric: Denies suicidal thoughts EXAM Physical Exam Const Vital Signs: 12/11/24 22:47 12/11/24 22:47 12/11/24 23:48 Temperature 97.8 F 97.8 F 98.1 F Temperature Source Oral Oral Oral Pulse Rate 112 H 112 H 96 Respiratory Rate 18 18 20 H Blood Pressure 176/108 H 176/108 H 136/65 H Blood Pressure Mean 130 130 88 Baseline BP Pulse Ox 98 98 100 Oxygen Delivery Method Room Air Room Air Room Air EtCo2 - Document during CPR and with ROSC 12/12/24 00:00 12/12/24 00:08 12/12/24 00:08 Temperature 97.8 F Temperature Source Oral Pulse Rate 96 Respiratory Rate 20 H Blood Pressure 123/83 H Blood Pressure Mean 93 Baseline BP Pulse Ox 98 Oxygen Delivery Method Room Air Room Air EtCo2 - Document during CPR and with ROSC 42 12/12/24 00:47 12/12/24 01:00 12/12/24 02:00 Temperature 98.0 F 98 F Temperature Source Oral Oral Pulse Rate 79 79 73 Respiratory Rate 18 18 18 Blood Pressure 119/60 131/81 H 120/58 L Blood Pressure Mean 79 97 78 Baseline BP Pulse Ox 100 100 100 Oxygen Delivery Method Room Air Room Air Room Air EtCo2 - Document during CPR and with ROSC 12/12/24 02:23 Temperature 98.6 F Temperature Source Pulse Rate 78 Respiratory Rate 18 Blood Pressure 127/69 H Blood Pressure Mean Baseline BP 127/69 Pulse Ox 100 Oxygen Delivery Method Room Air EtCo2 - Document during CPR and with ROSC 45 Positive well nourished, well developed and obese General Appearance ED: well developed and NAD Nutritional Appearance: obese HEENT Reports moist mucous membranes normocephalic and atraumatic Eyes PERRL and EOMs intact bilaterally Neck full ROM and supple Resp normal respiratory effort and clear to auscultation bilaterally Cardio regular rate, regular rhythm and no murmurs Rate: tachycardic GI non-distended GI Narrative: There is an tender indurated erythematous area left mid abdominal wall, the erythema/cellulitis has extended beyond the skin marked around the area apparently couple days ago, the indurated area feels consistent with a 3-4 cm diameter abscess there is no spontaneous discharge depressible. Auscultation: normoactive bowel sounds Palpation: soft Back/Spine no CVA tenderness General Back: other FROM Extremity normal to inspection General Extremety ED: Negative for edema, pulses abnormal or tenderness General Extremity: Negative for edema or pulses abnormal Neuro oriented x3, CN's II-XII intact bilaterally and no sensory deficits noted Sensorium / Orientation: awake and alert Motor Exam: strength 5/5 throughout Psych mental status grossly normal Skin Skin Narrative: Abdominal wall abscess with surrounding cellulitis see above, no other rashes MDM MDM MDM Narrative Medical decision making narrative: Given the patient's systemic symptoms although they are mild and mild resting tachycardia upon arrival, sepsis was considered, and I obtained blood work and while doing this, gave her a dose of empiric IV vancomycin. She is not septic, her heart rate came down to the 70s, her lactate is normal, and she has no leukocytosis or leftward shift or bandemia. We did obtain blood cultures. The patient was extremely anxious and tearful about the procedure, saying that she does not tolerate pain well, and requested procedural sedation, which we did after verifying with the patient that she was okay with an extended ED stay for recovery. See the procedure notes, this was done successfully and uneventful. A good abscess drainage was done, the cavity was deloculated and packed with gauze, she was given appropriate discharge instructions. I assume this is MRSA I did not obtain a culture, she is on doxycycline which according to our local microbiotagram, is currently the best antibiotic to cover MRSA. Lab Data Attestation: I reviewed the patient's lab results. Labs: Laboratory Results - last 24 hr 12/11/24 23:20 WBC 7.9 RBC 4.63 Hgb 13.4 Hct 40.8 MCV 88.1 MCH 28.9 MCHC 32.8 RDW Std Deviation 41.8 RDW Coeff of Christiano 13.1 Plt Count 271 MPV 9.8 Immature Gran % (Auto) 0.500 Neut % (Auto) 65.8 Lymph % (Auto) 27.4 Schleicher % (Auto) 6.1 Eos % (Auto) 0.1 Baso % (Auto) 0.1 Absolute Neuts (auto) 5.2 Absolute Lymphs (auto) 2.17 Nucleated RBC % 0 Sodium 143 Potassium 3.7 Chloride 104 Carbon Dioxide 24.0 Anion Gap 15 BUN 13 Creatinine 1.12 Estim Creat Clear Calc 79.85 Est GFR (MDRD) Non-Af 60 BUN/Creatinine Ratio 11.9 Glucose 99 Lactic Acid 1.2 Calcium 9.5 Procedures Procedural Sedation 1 (Initial Baseline): Consent Signed: Yes Any Problems With Anesthesia: No Sedation medication: Propofol Dose: 200 (in 2 separate aliquots, 160mg and 40mg) Route: IV Total Moderate Sedation Units: 13 Maliampati Score: Class I ASA Classification: II Comment:: On monitor with prophylactic nasal cannula oxygenation and IV fluids, end-tidal CO2 monitoring, airway equipment at the bedside. Tolerated well with no complications. Other Procedures Procedure(s): Complex incision and drainage abdominal wall abscess: Patient was sedated see the procedure note above, timeout was performed verifying the appropriate site prior to sedation and the patient was consented discussing pros and cons. The area was prepped with chlorhexidine, locally anesthetized with a total of 6 cc of plain 1% lidocaine, and then incised over the area where teresa ent had spontaneous discharge centrally with a #10 blade, 1 cm incision was made, there was purulent discharge moderate amount that was expressed, deloculated the abscess cavity in its entirety bluntly with hemostats, there was a portion of the cavity that was especially deep into the abdominal wall and laterally to the left, the entire cavity was then irrigated with approximately 60 cc of sterile saline, and then the entire cavity was packed with half-inch sterile gauze. Dressed by nursing with bacitracin and sterile dressing, tolerated well with no complications. Discharge Plan Triage Chief Complaint: Cellulitis ED Provider: Ray Bedoya Dx/Rx/DC Orders Clinical Impression: Abdominal wall abscess, Malaise and fatigue Instructions: ED Abscess Incision And Drainage Prescriptions: No Action cholecalciferol (vitamin D3) 125 mcg (5,000 unit) capsule 125 mcg PO QDAY lisinopril 10 mg tablet 10 mg PO QDAY rizatriptan 10 mg tablet 1 tab PO PRN PRN (Reason: Migraine Headache) Patient Comments: TAKE 1 TABLET BY MOUTH NEEDED FOR MIGRAINE HEADACHE cephalexin 500 mg capsule 500 mg PO Q6 7 Days Qty: 24 0RF doxycycline monohydrate 100 mg capsule 100 mg PO BID Qty: 14 0RF tizanidine 4 mg tablet 4 mg PO DAILY hydrocodone-acetaminophen 5-325 mg tablet 0.5 - 1.5 tab PO DAILY PRN (Reason: pain) omeprazole 40 mg capsule,delayed release(DR/EC) 40 mg PO BID Primary Care Provider: Aftab Sevilla Referrals: Lian Jimenez MD [Med Staff - Active Staff] - 3-5 Days if not improving Activity Restrictions/Additional Instructions: Try to leave packing intact for 48 hours and then remove and discard. If it falls out earlier than that, do not worry about it, just continue dressing changes. If there is any water that gets into the area after a shower or what not, you may gently apply pressure to the surrounding area to express it prior to a new dressing change. Antibiotic ointment on the area with these dressing changes okay as well. If you are concerned about it recurring or getting worse, return to the ER for reevaluation. Continue taking the previously prescribed antibiotics until completed. Print Language: Armenian Disposition Disposition: Home, Self Care
--- OUTSIDE RECORDS SUMMARY | 2024-12-11 23:04 | XMS RPT_ITS | CCD ---
Author Organization [facility] Care Team Providers Care Lead Investigator Name Role Phone Susan Sevilla MD Primary [...] Unavailable Susan Sevilla Primary Care Provider Hipolito DATA SERVICES DEVELOPER.Mary JULIO Unavailable Jason DATA SERVICES DEVELOPER.Neal JULIO Unavailable MARY MCMILLAN Attending Unavailabl SUSAN Amezquita Primary Care Unavailable SUSAN SEVILLA Primary Care Unavailable NEAL GOMEZ Attending Unavailable SUSAN SEVILLA Primary Care Unavailable JOHN NIEVES Referring Unavailable SUSAN SEVILLA Primary Care Unavailable SUSAN SEVILLA Primary Care Unavailable OKSANA KENNEY Attending Unavailable SUSAN SEVILLA Primary Care Unavailable LUPE RIDDLE Attending Unavailable SUSAN SEVILLA Primary Care Unavailable NATE WINTERS Attending Unavailable SUSAN SEVILLA Primary Care Unavailable LUPE RIDDLE Attending Unavailable SUSAN SEVILLA Primary Care Unavailable LUPE RIDDLE Attending Unavailable SUSAN SEVILLA Primary Care Unavailable LUPE RIDDLE Attending Unavailable SUSAN SEVILLA Primary Care Unavailable LUPE RIDDLE Attending Unavailable SUSAN SEVILLA Primary Care Unavailable LPUE RIDDLE Attending Unavailable SUSAN SEVILLA Primary Care Unavailable NATE WINTERS Admitting Unavailable NATE WINTERS Attending Unavailable SUSAN SEVILLA Primary Care Unavailable Roel RENEE, Dr. Ugalde Primary Care Provider Dr. Makenzie Gary MD Emergency Provider Unavailab Susan Masterson Referring Unavailable Kelley Rogel Attending Unavail able Susan Sevilla Primary Care Unavailable Kaushik Zhou Attending Unavailable Kaushik Zhou Referring Unavailable Susan Sevilla Primary Care Unavailable Makenzie Gary Attending Unavailable Susan Sevilla Primary Care Unavailable Allergies Allergy Classification Reported Allergen(s) Allergy Type Date of Onset Reaction(s) Facility Aminoketones (3 sources) buPROPion Drug Allergy 12-30-2007 Itching [facility] (20 sources) buPROPion; Translations: [BUPROPION] Drug [facility] Allergy 12-09-2024 [facility] Repository Medications Current Medications Medication Drug Class(es) Dates Sig (Normalized) Sig (Original) acetaminophen 325 mg / HYDROcodone bitartrate 5 mg oral tablet (20 sources) Opioid Agonist Start: 12-23-2023 HYDROcodone-acetam inophen ([place]) 5-325 MG tablet Take 2 tablets by mouth. 12/23/2023 Active Start: 11-29-2023 End: 12-08-2023 Hydrocodone-Acetaminophen 5- 325 mg tablet Discontinued 1 {tbl} PO EVERY 6 HOURS NEEDED as needed for Pain 10 3 0 November 29, 2023 December 08, 2023 2:19pm Acute pain of right knee Pain in right knee Start: 06-11-2020 End: 06-18-2020 Hydrocodone-Acetaminophen ([place]) 5-325 mg tablet Discontinued 1 {tbl} PO TWICE A DAY as needed for pain (scale score 7-10) 14 7 0 June 11, 2020 June 17, 2020 12:00am June 18, 2020 12:03am Other acute postprocedural pain Start: 05-27-2020 End: 06-05-2020 Hydrocodone-Acetaminophen ([place]) 5-325 mg tablet Discontinued 1 {tbl} PO TWICE A DAY as needed for pain (scale score 7-10) 14 7 0 May 29, 2020 June 04, 2020 1:00am June 05, 2020 1:02am Start: 05-13-2020 End: 05-20-2020 Hydrocodone-Acetaminophen ([place]) 5-325 mg tablet Discontinued 1 {tbl} PO THREE TIMES A DAY as needed for pain (scale score 7-10) 14 7 0 May 13, 2020 May 19, 2020 1:00am May 20, 2020 1:03am Other acute postprocedural pain Start: 05-03-2020 End: 05-10-2020 take 1 tablet by mouth twice daily for pain Hydrocodone-Acetaminophen Discontinued 1 TABLET PO TWICE A DAY 15 7 May 03, 2020 May 10, 2020 12:03am For severe pain. Follow Dr. Zhou next week, first week of May Start: 04-22-2017 End: 05-10-2020 Hydrocodone-Acetaminophen 1 TABLET tablet Discontinued 1 {tbl} PO TWICE A DAY as needed for Pain Score 6-10 15 7 0 May 03, 2020 May 09, 2020 1:00am May 10, 2020 1:03am Open wound of chin Unspecified open wound of other part of head, initial encounter For severe pain. Follow Dr. Zhou next week, may amoxicillin 500 mg oral tablet (2 sources) Penicillin-class Antibacterial Start: 03-18-2022 End: 03-28-2022 take 1 tablet by mouth twice daily Amoxicillin 500 mg tablet Take 1 tablet by mouth twice daily for 10 days. 20 tablet 0 03/18/2022 03/28/2022 Active Comment on above: Take 1 tablet by damien twice daily for 10 days. amoxicillin 875 [...] tablet 0 12/23/2021 Active Start: 05-03-2020 End: 12-08-2023 Atenolol 50 MG tablet Discon tinued 50 mg PO 1200 January 30, 2021 8:43am December 08, 2023 2:17pm blood pressure Hold for heart rate less than 60/min or systolic blood pressure less than 100 mmHg Start: 07-17-2016 End: 05-03-2020 take 1 tablet by mouth once daily Atenolol 50 MG tablet Discontinued 50 mg PO DAILY July 17, 2016 12:00am May 03, 2020 1:18pm blood pressure Comment on above: Take 1 tablet by damien once daily. 168 hr buprenorphine 0.01 mg/hr transdermal system (1 source) Partial Opioid Agonist Start: 2022 apply 10 ug transdermal route every week Buprenorphine (Butrans) 10 mcg/hour patch weekly Active 1 PATCH TD EVERY WEEK May 12, 2022 12:00am celecoxib 200 mg oral capsule (20 sources) Nonsteroidal Anti-inflammatory Drug Start: 2023 End: 2023 take 1 capsule by mouth twice daily Celecoxib 200 mg capsule Active 200 mg PO TWICE A DAY November 01, 2023 12:00am Comment on above: Take 1 capsule by mo [facility] two times a day. Take 1 capsule by mo [facility] twice daily cephalexin 500 mg oral capsule (1 source) Cephalosporin Antibacterial Start: 2024 take 1 capsule by mouth every six hours Cephalexin 500 mg capsule Active 500 mg PO EVERY 6 HOURS 24 7 0 December 09, 2024 12:00am cholecalciferol 0.125 mg oral capsule (20 sources) Vitamin D Start: 2022 End: 2024 take 1 capsule by mouth once daily Cholecalciferol, Vitamin D3, (DIALYVITE VITAMIN D) 125 mcg (5,000 unit) cap Indications: Vitamin D deficiency Take 1 capsule by mouth once daily. 30 capsule 11 07/28/2023 Active Comment on above: Take 1 capsule by mo [facility] once daily. cyclobenzaprine hydrochloride 10 mg oral tablet (15 sources) Muscle Relaxant Start: 2022 End: 2022 take 1 tablet by mouth three times daily as needed for muscle spasms cyclobenzaprine (FLEXERIL) 10 mg tablet Indications: Muscle strain Take 1 tablet by mouth three times daily as needed for muscle spasm. 30 tablet 1 12/29/2022 03/29/2023 Active Comment on above: Take 1 tablet by [facility] three times daily as needed for muscle spasm. doxycycline monohydrate 100 mg oral capsule (14 sources) Tetracycline-class Drug Start: 2024 take 1 capsule by mouth twice daily Doxycycline Monohydrate 100 mg capsule Active 100 mg PO TWICE A DAY 14 0 December 09, 2024 12:00am Start: 12-25-2022 End: 01-01-2023 take 1 tablet by mouth twice daily doxycycline (VIBRA-TABS) 100 mg tablet Take 1 tablet by mouth twice daily for 7 days. 14 tablet 0 12/25/2022 01/01/2023 Active Start: 06-09-2022 End: 07-24-2022 take 1 capsule by mouth twice daily Doxycycline Hyclate 100 mg capsule Discontinued 100 mg PO TWICE A DAY June 09, 2022 1:00am July 24, 2022 10:57am Start: 05-03-2020 End: 05-22-2020 take 1 capsule by mouth twice daily Doxycycline Monohydrate 100 MG capsule Discontinued 100 mg PO TWICE A DAY May 03, 2020 1:00am May 22, 2020 8:30pm Comment on above: Take 1 tablet by [facility] twice daily for 7 days. hydrocortisone 25 [...] mg oral tablet (20 sources) Antihistamine Start: 024 End: take 1 tablet by mouth three times daily as needed Hydroxyzine Hcl 25 mg tablet Active 25 mg PO THREE TIMES A DAY as needed November 01, 2023 12:00am Start: 08-11-2023 End: 02-07-2024 take 1 tablet by mouth every eight hours as needed hydrOXYzine HCl (Atarax) 25 MG tablet Take 25 mg by mouth every 8 hours as needed. 08/11/2023 Active iv contrast (will be provided with [...] link. 1 Each 0 10/21/2023 10/22/2023 Active lisinopril 10 mg oral tablet (20 sources) Angiotensin Converting Enzyme Inhibitor Start: 12-03-2023 End: 02-25-2025 take 1 tablet by mouth once daily lisinopril (ZESTRIL) 10 mg tablet Indications: Hypertension, essential Take 1 tablet by mouth once daily. 30 tablet 5 08/29/2024 02/25/2025 Active meclizine hydrochloride 25 mg oral tablet (20 sources) Antiemetic Start: 11-01-2023 End: 11-01-2023 Meclizine 25 mg tablet Active 25 mg PO 2 to 4 times per day as needed November 01, 2023 10:44am Start: 09-15-2023 End: 10-15-2023 take 1 tablet [...] take 1 tablet by mouth once daily Nifedipine 30 mg tablet extended release Active 30 mg PO daily December 08, 2023 12:00am Start: 03-01-2023 End: 03-10-2024 take 1 tablet [...] 12/23/2021 Active Start: 12-14-2014 End: 05-12-2022 Nifedipine 60 MG tablet Disc ontinued 30 mg PO 1200 December 14, 2014 12:00am May 12, 2022 3:27pm blood pressure Start: 12-14-2014 End: 05-12-2022 Nifedipine Discontinued 30 M G PO 1200 December 13, 2014 11:00pm May 12, 2022 2:27pm Comment on above: Take 1 tablet by damien th once daily. omeprazole 40 mg delayed release oral capsule (20 sources) Proton Pump Inhibitor Start: 04-27-2023 End: 05-24-2024 take 1 capsule by mouth twice daily omeprazole (PRILOSEC) 40 mg capsule Take 1 capsule by mouth two times a day. 60 capsule 5 05/25/2024 Active Start: 07-17-2016 End: 02-28-2023 take 1 capsule by mouth twice daily omeprazole (PRILOSEC) 40 mg capsule Take 1 capsule by mouth two times a day. 60 capsule 0 03/01/2023 Active Comment on above: Take 1 capsule by mo ut twice daily. Take 1 capsule by mo ut two times a day. PARoxetine hydrochloride 20 mg oral tablet (20 sources) Serotonin Reuptake Inhibitor Start: End: take 1 tablet by mouth once daily PARoxetine (PAXIL) 20 mg tablet Indications: Anxiety associated with depression Take 1 tablet by mouth once daily. Take with additional 40 mg tablet. 30 tablet 2 05/25/2024 Active Start: 11-01-2023 Paroxetine Hcl 40 mg tablet Active 60 mg PO daily November 01, 2023 12:00am Start: 10-18-2023 End: 01-16-2024 take 1 tablet [...] once daily. 30 tablet 5 05/24/2024 Active polyethylene glycol 3350 [id number] mg powder for oral solution (2 sources) [...] with food. Take 2 tablets by mo [facility] once daily for 5 days. rizatriptan [...] above: Take 1 tablet by damien th as needed for migraine headache (see administration [...] (20 sources) Central alpha-2 Adrenergic Agonist Start: 11-01-19 take 1 capsule by mouth at bedtime Tizanidine 4 mg capsule Active 4 mg PO AT BEDTIME November 01, 2023 10:42am Muscle Spasm Start: 10-20-2023 End: 05-24-2024 take 1 tablet by mouth once daily tiZANidine (ZANAFLEX) 4 mg tablet Take 1 tablet by mouth once daily. 30 tablet 5 05/24/2024 Active Start: 04-29-2020 End: 10-20-2023 take 1 capsule by mouth once daily at bedtime tiZANidine HCl (ZANAFLEX) 4 mg capsule Take 4 mg by mouth daily at bedtime. 04/29/2020 10/20/2023 Discontinued Start: 04-29-2020 End: 11-01-2023 take 1 capsule by mouth three times daily as needed for muscle spasms Tizanidine 4 MG capsule Discontinued 4 mg PO THREE TIMES A DAY as needed for Muscle Spasm April 29, 2020 1:00am November 01, 2023 10:42am Comment on above: Take 4 mg by mouth d aily at bedtime. topiramate 25 mg oral capsule (20 sources) Start: 12-08-2023 take 1 tablet by mouth twice daily Topiramate 25 mg tablet Active 25 mg PO TWICE A DAY December 08, 2023 12:00am Start: 12-03-2023 End: 07-24-2024 take 1 capsule [...] 60 tablet 5 11/03/2021 07/31/2022 Discontinued Start: 09-26-2021 End: 05-12-2022 Topiramate 50 mg tablet Disc ontinued 50 {tbl} PO DAILY September 26, 2021 12:00am May 12, 2022 3:27pm Start: 09-17-2021 End: 05-12-2022 take 1 tablet [...] System Stimulant, Methylxanthine Start: 01-27-2023 End: 03-10-2024 butalbital-acetamin ophen-caffeine (Fioricet) 50-300-40 MG capsule Take 1 capsule by mouth. 01/27/2023 03/10/2024 Discontinued (Therapy completed) acetaminophen 325 mg / oxyCODONE hydrochloride 5 mg oral tablet (4 sources) Opioid Agonist Start: 08-19-2023 End: 08-24-2023 Oxycodone-Acetamino phen (Percocet) 5-325 mg tablet Discontinued 1 {tbl} PO EVERY 6 HOURS as needed for pain (scale score 7-10) 20 5 0 August 19, 2023 August 23, 2023 12:00am August 24, 2023 12:05am Other acute postprocedural pain Other acute postprocedural pain 20 tabs (twenty) Start: 06-18-2022 End: 06-25-2022 take 1 tablet by mouth three times daily as needed Oxycodone-Acetaminophen (Percocet) 5-325 mg tablet Discontinued 1 {tbl} PO THREE TIMES A DAY as needed for pain (scale score 7-10) 21 7 0 June 18, 2022 June 24, 2022 12:00am June 25, 2022 12:05am Other acute postprocedural pain Other acute postprocedural pain 21 tabs (twemty-one) Start: 06-09-2022 End: 07-24-2022 take 7-10 tablets by mouth every six hours as needed for pain Oxycodone-Acetaminophen (Percocet) 5-325 mg tablet Discontinued 1 {tbl} PO EVERY 6 HOURS as needed for pain (scale score 7-10) 28 7 0 June 09, 2022 July 24, 2022 10:58am Other acute postprocedural pain Other acute postprocedural pain 28 tabs (twenty-eight) [id number] 200 actuat albuterol 0.09 mg/actuat metered dose [...] Comment on above: Take 2 capsules by m out three times daily as needed. betamethasone 3 mg/ml / betamethasone acetate 3 mg/ml injectable suspension (2 sources) Corticosteroid Start: 12-13-2023 End: 12-13-2023 betamethasone acetate-betamethasone sodium phosphate 6 mg injection (CELESTONE) Start: 12-13-2023 End: 12-13-2023 6 mg, Injection - FOR ORTHO USE ONLY, ONCE, 1 dose, Starting on Wed12/13/23 at 1437, Until Wed12/13/23 at 1437 busPIRone hydrochloride 5 mg oral tablet (7 sources) Start: 09-26-2021 End: 12-08-2023 Buspirone 5 mg tablet Discontinued 5 {tbl} PO DAILY September 26, 2021 12:00am December 08, 2023 2:18pm Start: 09-17-2021 End: 10-17-2021 take 1 tablet by mouth three times daily busPIRone (BUSPAR) 5 mg tablet Take 1 tablet by mouth three times daily. 90 tablet 5 09/17/2021 10/17/2021 Active Comment on above: Take 1 tablet by damien three times daily. clindamycin 150 mg oral capsule (6 sources) Lincosamide Antibacterial Start: 04-28-19 End: 05-03-19 take 2 capsules by mouth four times daily Clindamycin Hcl 150 MG capsule Discontinued 300 mg PO 4 TIMES DAILY 80 0 April 28, 2020 1:00am May 03, 2020 1:17pm Start: 04-28-2020 End: 05-03-2020 take 300 mg by mouth four times daily Clindamycin Hcl Discontinued 300 MG PO 4 TIMES DAILY 80 April 28, 2020 12:00am May 03, 2020 12:17pm COMPOUNDED PRESCRIPTION (20 sources) Start: 11-26-2016 End: 12-09-2022 COMPOUNDED PRESCRIPTION Cons ult to Pain Management - Dr. Nolasco Dx: [...] extended release oral tablet (20 sources) Uncompetitive F-vbmwhb-L-aspartate Receptor Antagonist, Sigma-1 Agonist Start: 022 End: 023 take 1 tablet by mouth twice daily dextromethorphan-gu aiFENesin (MUCINEX DM) 30-600 mg per tablet Take 1 tablet by mouth twice daily. 20 tablet 0 03/11/2022 12/04/2022 Discontinued Comment on above: Take 1 tablet by damien th twice daily. etodolac 400 mg oral tablet [...] a day. As needed for hip pain gabapentin 300 mg oral capsule (3 sources) Anti-epileptic Agent Start: 08-28-2022 End: 12-08-2023 take 1 capsule by mouth twice daily Gabapentin 300 mg capsule Discontinued 300 mg PO TWICE A DAY 60 30 3 December 01, 2022 2:46pm December 08, 2023 2:19pm Start: 07-24-2022 End: 08-23-2022 take 1 capsule by mouth twice daily Gabapentin 100 mg capsule Discontinued 100 mg PO TWICE A DAY 60 30 0 July 24, 2022 12:00am August 22, 2022 12:00am August 23, 2022 12:04am 12 hr guaiFENesin 1200 mg / pseudoephedrine hydrochloride 120 mg extended release oral tablet (20 sources) alpha-Adrenergic Agonist Start: 10-20-2023 End: 09-04-2024 take 120-1200 mg by mouth every twelve hours as needed Pseudoephedrine-guaiFENesin (MUCINEX D MAXIMUM STRENGTH) 120-1,200 mg tab ER 12 hr Indications: Post-nasal drip Take 1 tablet by mouth once daily as needed (congestion). 24 tablet 10/20/2023 09/04/2024 Discontinued (Course of therapy completed) ibuprofen 200 mg oral tablet (4 sources) Nonsteroidal Anti-inflammatory Drug End: 06-07-2023 take 4 tablets by mouth every six hours as needed ibuprofen (MOTRIN) 200 mg tablet Take 800 mg by mouth every 6 hours as needed for pain. 0 06/07/2023 Discontinued Comment on above: Take 800 mg by mouth every 6 hours as needed for pain. L.Acidoph,Saliva- B.Bif-S.Therm (Acidophilus Probiotic Blend) 175 mg capsule (2 sources) Start: 06-09-2022 End: 08-28-2022 take 1 capsule by mouth once daily L.Acidoph,Saliva-B.Bif-S.The rm (Acidophilus Probiotic Blend) 175 mg capsule Discontinued 1 NMA PO DAILY June 09, 2022 1:00am August 28, 2022 1:42pm Start: 06-09-2022 take 1 capsule by mouth once daily L.Acidoph,Saliva-B.Bif-S.Therm (Acidophi bossman Probiotic Blend) 175 mg capsule Active 1 CAP PO DAILY June 09, 2022 12:00am 10 ml lidocaine hydrochloride 10 mg/ml injection (2 sources) Antiarrhythmic, Amide Local Anesthetic Start: 12-13-2023 End: 12-13-2023 lidocaine (PF) 10 mg/mL (1 %) 5 [...] above: Take on steroid pack as directed. metroNIDAZOLE 500 mg oral tablet (1 source) Nitroimidazole Antimicrobial Start: 06-18-19 End: 06-28-19 take 1 tablet by mouth three times daily Metronidazole 500 mg tablet Discontinued 500 mg PO THREE TIMES A DAY 30 10 June 17, 2022 12:00am June 26, 2022 12:00am June 27, 2022 12:12am nabumetone 750 mg oral tablet (20 sources) Nonsteroidal Anti-inflammatory Drug Start: 06-04-19 End: 10-20-19 take 1 tablet by mouth twice daily Nabumetone 750 MG tablet Discontinued 750 mg PO TWICE A DAY April 29, 2020 1:00am May 12, 2022 3:26pm pain naproxen 500 mg oral tablet (4 sources) Nonsteroidal Anti-inflammatory Drug Start: 11-13-19 End: 05-12-19 take 1 tablet by mouth twice daily as needed for pain Naproxen (Naprosyn) 500 mg tablet Discontinued 500 mg PO TWICE A DAY as needed for pain November 12, 2021 12:00am May 12, 2022 3:26pm 2 ml ondansetron 2 mg/ml injection (2 sources) Serotonin-3 Receptor Antagonist Start: 03-10-20 End: 03-10-20 4 mg, IntraVENous, Once PRN, nausea, vomiting, Starting on Wed03/10/24 at 0926, For 1 dose, Preprocedure sertraline 100 mg oral tablet (20 sources) Serotonin Reuptake Inhibitor Start: 04-27-19 End: 08-11-19 take 2 tablets by mouth once daily [...] 60 tablet 0 03/01/2023 Active Start: 05-12-2022 End: 11-01-2023 take 2 tablets by mouth twice daily Sertraline 100 mg tablet Discontinued 200 mg PO TWICE A DAY May 12, 2022 3:25pm November 01, 2023 10:42am mental health Start: 05-12-2022 take 200 mg by mouth [...] 12/23/2021 Active Start: 04-29-2020 End: 05-12-2022 take 1 tablet by mouth twice daily Sertraline 100 MG tablet Discontinued 100 mg PO TWICE A DAY April 29, 2020 1:00am May 12, 2022 3:27pm mental health Comment on above: Take 2 tablets by mo [facility] once daily. 1000 ml sodium chloride 9 mg/ml injection (2 sources) Start: 03-10-20 End: 03-10-20 take 50 mL intravenously every hour 50 mL/hr, IntraVENous, Continuous, Starting on Wed03/10/24 at 0930, Preprocedure Tirzepatide (Weight Loss) (1 source) Start: 11-01-19 End: 12-08-19 Tirzepatide (Weight Loss) (Zepbound) 2.5 mg/0.5 mL pen injector Discontinued 2.5 mg SC EVERY WEEK November 01, 2023 12:00am December 08, 2023 2:22pm for 4 weeks tirzepatide, weight loss (ZEPBOUND) 2.5 mg/0.5 mL [...] Date Documented Da te Episodic/Chronic Abdominal pain (8 sources) Epigastric pain; Translations: [Epigastric pain] 08-24-2019 [...] of Methicillin resistant Staphylococcus aureus infection] Onset: 5 05-14-2022 Episodic Biliary tract disease (1 source) Biliary calculus; Translations: [Calculus of gallbladder without cholecystitis without obstruction] 11-01-2023 Episodic Blindness and vision defects (3 sources) Disorder of vision; Translations: [Unspecified visual loss] 05-12-2022 Chronic Cardiac dysrhythmias (2 sources) Bradycardia; Translations: [Bradycardia, unspecified] 09-15-2023 Episodic Chronic obstructive pulmonary disease and bronchiectasis (2 sources) Bronchitis; Translations: [Bronchitis, not specified as acute or chronic] Episodic Chronic ulcer of skin (10 sources) Ulcer of skin of face; Translations: [Non-pressure chronic ulcer of skin of other sites with fat layer exposed] 06-17-2020 Chronic Conditions associated with dizziness or vertigo (7 sources) Dizziness; Translations: [Dizziness and giddiness] 07-23-2023 Episodic Esophageal disorders (20 sources) Gastroesophageal reflux disease; Translations: [Gastro-esophageal reflux disease without esophagitis] Onset: 2 Resolved: 5 03-31-2021 Chronic Essential hypertension (20 sources) Hypertensive disorder; Translations: [Essential (primary) hypertension] Onset: 5 03-31-2021 Chronic Headache; including migraine (20 sources) Migraine with aura; Translations: [Migraine with aura, not intractable, without status migrainosus] Onset: 9 08-15-2018 Chronic Headache; including migraine (5 sources) Headache; Translations: [Headache] 05-12-2022 Episodic Mood disorders (20 sources) Depressive disorder; Translations: [Depression] Onset: 7 Resolved: 5 02-09-2016 Chronic Nutritional deficiencies (5 sources) Vitamin D deficiency; Translations: [Vitamin D deficiency, unspecified] 11-05-2022 Chronic Open wounds of head; neck; and trunk (18 sources) Open wound of neck with complication; Translations: [Unspecified open wound of unspecified part of neck, initial encounter] 05-14-2022 Episodic Osteoarthritis (20 sources) Primary gonarthrosis, bilateral; Translations: [Bilateral primary osteoarthritis of knee] Onset: 6 11-01-2015 Chronic Other and ill-defined heart disease (2 sources) Ventricular hypertrophy ; Translations: [Cardiomegaly] 08-11-2023 Chronic Other bone disease and musculoskeletal deformities (1 source) Exostosis; Translations: [Other specified disorders of bone, unspecified site] 11-04-2022 Episodic Other connective tissue disease (4 sources) Pain in left foot; Translations: [Pain in left foot] Episodic Other connective tissue disease (3 sources) Trochanteric bursitis of left hip; Translations: [Trochanteric bursitis, left hip] 10-19-2022 Episodic Other connective tissue disease (1 source) Neuralgia; Translations: [Neuralgia and neuritis, unspecified] 07-24-2022 Episodic Other gastrointestinal disorders (1 source) Diarrhea; [...] sources) Weight loss; Translations: [Weight Loss] Onset: 5 Episodic Other screening for suspected conditions (not [...] and fibrosis of skin] 05-19-2022 Episodic Other skin disorders (1 source) Hypertrophic scar; Translations: [Hypertrophic scar] 08-30-2022 Episodic Other upper respiratory disease (1 source) Loss of voice; Translations: [Aphonia] 10-20-2023 Episodic Other upper respiratory infections (1 source) Bacterial sinusitis; Translations: [Chronic sinusitis, unspecified] 09-28-2023 Chronic Other upper respiratory infections (8 sources) Upper respiratory infection; Translations: [Acute upper respiratory infection, unspecified] Episodic Residual codes; unclassified (3 sources) Past history of procedure; Translations: [Other specified postprocedural states] 05-14-2022 Episodic Comment on above: surgical preparation left chin with excisional debridement MRSA scar contour deformity and reconstruction with horizontal triangular V-Y advancement skin flap from right chin (7.5 cm2) and bilobed transposition skin flap from left upper anterior neck (8 cm2) - 06/09/22 Residual codes; unclassified (2 sources) Other specified postprocedural states; Translations: [Other postprocedural status] 05-12-2022 Episodic Residual codes; unclassified (1 source) Painful scar; Translations: [Pain, unspecified] 11-01-2023 Episodic Skin and subcutaneous tissue infections (19 sources) Abscess of face; Translations: [Cutaneous abscess of face] Onset: 5 04-29-2020 Episodic Substance-related disorders (1 source) Opioid dependence, uncomplicated; Translations: [Opioid dependence, uncomplicated] Onset: 5 Chronic Superficial injury; contusion (8 sources) Contusion of foot; Translations: [Contusion of [...] type] Onset: 08-26-2005 Resolved: 02-08-2013 02-08-2013 Chronic Coma; stupor; and brain damage (20 sources) Daytime somnolence; Translations: [Somnolence] Onset: 01-04-2024 01-04-2024 Episodic Diabetes or abnormal glucose tolerance complicating [...] COVID-19 virus] Onset: 03-05-2014 Resolved: 10-12-2014 Episodic Other aftercare (20 sources) Drug therapy finding; Translations: [Other 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 intermodal truck driver (current) drug therapy] Onset: 02-08-2013 Resolved: 10-12-2014 [...] Onset: 06-16-2012 Resolved: 10-12-2014 10-12-2014 Episodic Other non-traumatic joint disorders (20 sources) Pain in left knee; Translations: [Pain in joint, lower leg] Onset: 07-03-2015 Resolved: 02-19-2016 02-19-2016 Episodic Other and delivery including normal (20 sources) ; Translations: [Encounter for supervision of normal , unspecified, unspecified trimester] Onset: 10-10-2014 Resolved: 10-12-2014 03-31-2021 Episodic Residual codes; unclassified (20 sources) Abnormal cytology findings; Translations: [ASCUS favor benign] Onset: 10-27-2013 10-12-2014 Episodic Sexually transmitted infections (not HIV or [...] Test Name Value Interpretation Reference Range Facility Emergency Department Summary on 12-09-2024 Emergency Department Summary [facility] Medical Records Department [address] [place] [address] Emergency Department Summary 12/09/24 MR#: [id number] Acct: [id number] Name: SALMA BROWNING Rep #: [id number] : 1975 49 From: Makenzie Gary MD PCP: Dr. Susan Sevilla MD Status:DEP ER Location: ED HPI History of Present Illness Chief Complaint: Wound Check Narrative Narrative: Patient is a 49-year-old female presenting to the emergency department for concern of cellulitis on her abdomen. 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 She denies any IV drug use, denies diabetes history. States that 2 days ago she noticed the area on her left sided abdomen. States that initially was the size of a marble. States over the past 2 days it has gotten larger. Denies any fever, chills, nausea or vomiting. Denies any abdominal pain. [facility] Medical History Bradycardia BPPV (benign paroxysmal positional [...] [Prilosec] 40 mg PO BID gerd 07/17/16 3 04:00 History rizatriptan 10 mg tablet 1 tab PO PRN PRN Migraine Headache 09/26/21 Unknown History celecoxib 200 mg capsule 200 mg PO BID 11/01/23 Unknown His tory cholecalciferol (vitamin D3) 125 125 mcg PO QDAY 11/01/23 Unknown H istory mcg (5,000 unit) capsule hydroxyzine HCl 25 mg tablet 25 mg PO TID PRN 11/01/23 Unknown History meclizine 25 mg tablet 25 mg PO BID-QID PRN 11/01/23 Unkn own History paroxetine HCl 40 mg tablet 60 mg PO QDAY 11/01/23 Unknown His tory tizanidine 4 mg capsule 4 mg PO QHS Muscle Spasm 11/01/23 Unknown History lisinopril 10 mg tablet 10 mg PO QDAY 12/08/23 Unknown His tory nifedipine 30 mg tablet,extended 30 mg PO QDAY 12/08/23 Unknown His tory release topiramate 25 mg tablet 25 mg PO BID 12/08/23 Unknown Hist ory cephalexin 500 mg capsule 500 mg PO Q6 7 days #24 CAPSULES 0 12/09/24 Unknown Rx doxycycline monohydrate 100 mg 100 mg PO BID #14 CAPSULES 5 Unknown Rx capsule Allergy/AdvReac Type Severity Reaction Status Date / Time bupropion Allergy Itching Verified 12/09/24 12:53 Family History Mother Anxiety Arthritis Depression Diabetes [...] you participate in: none ROS ROS ED ROS Narrative see HPI EXAM Physical Exam Narrative Exam Narrative: Vital signs: Reviewed General: Alert and oriented. No acute distress HEENT: Head is normocephalic and atraumatic, sinuses nontender, pupils equal round and reactive. Nares are patent. Oropharynx and throat exams normal. Neck: Supple without lymphadenopathy nontender Cardiovascular: Regular rate and rhythm, no murmurs. No rubs or gallops. Normal S1 and S2 Respiratory: Clear to auscultation bilaterally. No wheezes, rales, rhonchi Abdominal: Soft and nontender. Normal bowel sounds. No guarding or rebound. Nonsurgical abdomen Extremities: No tenderness. No bruising. Normal range of motion. Normal sensation. Skin: Left sided abdomen with 7 cm by 4 cm area of erythema and warmth. There is no significant fluctuance. No drainage. No open wound noted. No crepitus. The rest of the physical exam is unremarkable Const Vital Signs: 12/09/24 12:51 12/09/24 14:06 Temperature 98.1 F 98.8 F Temperature Source Oral Pulse Rate 76 87 Respiratory Rate 16 18 Blood Pressure 163/96 H 140/75 H Blood Pressure Mean 118 96 Pulse Ox 99 97 Oxygen Delivery Method Room Air MDM MDM MDM Narrative Medical decision making narrative: Patient is a 49-year-old female pr (more content not included)... Normal [facility] Office Visiton 11-29-2024 Follow-up visit [id number] Michael Browning queline 1975 F Date Provider Department Center 11/29/2024 [id number] [facility]IDD[facility] None Family History Problem Relation [...] Brother Maternal Grandmother Maternal Grandfather Level of Service:54171 [place] OFFICE/OUTPATIENT ESTABLISHED LOW MDM 20 MIN Reason for Visit and Comments: Weight Loss [966339] - D/E 08/08 [facility] Progress Noteon 11-29-2024 Progress Note HPI, PHYSICAL [...] was performed.Clinical documentation is updated and completed. [facility] 36on 11-24-2024 36 We can see you November 29 at 1:50pm in the [place] Office. Please let us know if this will work for you. Thanks Normal [facility] 36 Called patient no an swer. Sent patient Pixatet message to reply and schedule appointment with Dr. Riddle. Normal [facility] 25(OH)D3 SerPl-mCncon 2024 25-hydroxyvitamin D3 [Mass/Vol] 44.8 ng/mL Normal 31.0-80.0 [facility] Comment on above: Order Comment: Speci men Type: BLOOD SPECIMENOrdering Facility: [facility] MissingLINK [facility] Address: [address] [place] [address] Result Comment: Clas sification of 25 OH Vitamin D status: Deficiency/Insufficiency: < or = 30 ng/ml. Sufficiency/Optimal Levels: 31-80 ng/mL Toxicity: > 100 ng/mL. Test performed by chemiluminescent immunoassay. Performed By: #### 1 989-3 ####[facility] LABCLIA [id number] [place] [id number] [place] 36on 11-21-2024 36 Pt called and left m essage that she is calling to r/s missed appt. Normal [facility] CBC panel Auto (Bld)on 11-21 Erythrocyte distribution width (RBC) [Ratio] 13.1 % Normal 11.5-15.0 [facility] Comment on above: Order Comment: Speci men Type: BLOOD SPECIMENOrdering Facility: [facility] [employer] [facility] Address: [address] [place] [address] Performed By: #### 5 8410-2 ####[facility] LABCLIA [id number] [place] [id number] [place] [facility] Hematocrit (Bld) [Volume fraction] 38.8 % Normal 36.0-46.0 [facility] Comment on above: Order Comment: Speci men Type: BLOOD SPECIMENOrdering Facility: [facility] MissingLINK [facility] Address: [address] [place] [address] Performed By: #### 5 8410-2 ####[facility] LABCLIA [id number] [place] [id number] [place] Hemoglobin (Bld) [Mass/Vol] 12.6 g/dL Normal 11.5-15.5 [facility] Comment on above: Order Comment: Speci men Type: BLOOD SPECIMENOrdering Facility: [facility] [employer] [facility] Address: [address] [place] [address] Performed By: #### 5 8410-2 ####[facility] LABCLIA [id number] [place] [address] [place] MCH (RBC) [Entitic mass] 28.8 pg Normal 26.0-34.0 [facility] Comment on above: Order Comment: Speci men Type: BLOOD SPECIMENOrdering Facility: [facility] [employer] [facility] Address: [address] [place] [address] Performed By: #### 5 8410-2 ####[facility] LABCLIA [id number] [address] [place] MCHC (RBC) [Mass/Vol] 32.5 g/dL Normal 30.5-36.0 [facility] Comment on above: Order Comment: Speci men Type: BLOOD SPECIMENOrdering Facility: [facility] [employer] [facility] Address: [address] [place] [address] Performed By: #### 5 8410-2 ####[facility] LABCLIA [id number] [place] [address] [place] MCV (RBC) [Entitic vol] 88.8 fL Normal 80.0-100.0 [facility] Comment on above: Order Comment: Speci men Type: BLOOD SPECIMENOrdering Facility: [facility] [employer] [facility] Address: [address] [place] [address] Performed By: #### 5 8410-2 ####[facility] LABCLIA [id number] [place] [address] [place] Nucleated RBC (Bld) [#/Vol] 10*3/uL Normal <0.01 [facility] Comment on above: Order Comment: Speci men Type: BLOOD SPECIMENOrdering Facility: [facility] MissingLINK [facility] Address: [address] [place] [address] Performed By: #### 5 8410-2 ####[facility] LABCLIA [id number] [address] [address] [place] Platelet mean volume (Bld) [Entitic vol] 10.5 fL Normal 9.0-12.7 [facility] Comment on above: Order Comment: Speci men Type: BLOOD SPECIMENOrdering Facility: [facility] [employer] [facility] Address: [address] [place] [address] Performed By: #### 5 8410-2 ####[facility] LABCLIA [id number] [address] [address] [place] Platelets (Bld) [#/Vol] 175 10*3/uL Normal 150-400 [facility] Comment on above: Order Comment: Speci men Type: BLOOD SPECIMENOrdering Facility: [facility] [employer] [facility] Address: [address] [place] [address] Performed By: #### 5 8410-2 ####[facility] LABCLIA [id number] [place] [address] [place] RBC (Bld) [#/Vol] 4.37 10*6/uL Normal 3.90-5.[address] [facility] Comment on above: Order Comment: Speci men Type: BLOOD SPECIMENOrdering Facility: [facility] [employer] [facility] Address: [address] [place] [address] Performed By: #### 5 8410-2 ####[facility] LABCLIA [id number] [address] [address] [place] WBC (Bld) [#/Vol] 3.73 10*3/uL Normal 3.70-11.[address] [facility] Comment on above: Order Comment: Speci men Type: BLOOD SPECIMENOrdering Facility: [facility] [employer] [facility] Address: [address] [place] [address] Performed By: #### 5 8410-2 ####[facility] LABCLIA [id number] [address] [address] [place] Comprehensive metabolic 2000 panelon 11-21-2024 Albumin [Mass/Vol] 4.2 g/dL Normal 3.9-4.9 [facility] Comment on above: Order Comment: Speci men Type: BLOOD SPECIMENOrdering Facility: [facility] [employer] [facility] Address: [address] [place] [address] Performed By: #### 2 276-4, 4-8, 9, 18696-6 ####[facility] LABCLIA [id number] [place] [address] [place] ALP [Catalytic activity/Vol] 80 U/L Normal 34-123 [facility] Comment on above: Order Comment: Speci men Type: BLOOD SPECIMENOrdering Facility: [facility] MissingLINK [facility] Address: [address] [place] [address] Performed By: #### 2 276-4, 2283-8, 9, 05720-2 ####[facility] LABCLIA [id number] [place] [address] [place] ALT [Catalytic activity/Vol] 29 U/L Normal 7-38 [facility] Comment on above: Order Comment: Speci men Type: BLOOD SPECIMENOrdering Facility: [facility] [employer] [facility] Address: [address] [place] [address] Performed By: #### 2 276-4, 2284-8, 9, 43841-4 ####[facility] LABCLIA [id number] [address] [address] [place] Anion gap [Moles/Vol] 11 mmol/L Normal 8-15 [facility] Comment on above: Order Comment: Speci men Type: BLOOD SPECIMENOrdering Facility: [facility] [employer] [facility] Address: [address] [place] [address] Performed By: #### 2 276-4, 2284-8, 2131-12, ####[facility] LABCLIA [id number] [address] [address] [place] AST [Catalytic activity/Vol] 22 U/L Normal 13-35 [facility] Comment on above: Order Comment: Speci men Type: BLOOD SPECIMENOrdering Facility: [facility] Address: [address] [place] [address] Performed By: #### 2 276-4, 8, 2131-12, ####[facility] LABCLIA [id number] [place] [address] [place] Bilirubin [Mass/Vol] 0.4 mg/dL Normal 0.2-1.3 [facility] Comment on above: Order Comment: Speci men Type: BLOOD SPECIMENOrdering Facility: [facility] Address: [address] [place] [address] Performed By: #### 2 276-4, 2283-8, 2131-12, ####[facility] LABCLIA [id number] [place] [address] [place] Calcium [Mass/Vol] 9.1 mg/dL Normal 8.5-10.2 [facility] Comment on above: Order Comment: Speci men Type: BLOOD SPECIMENOrdering Facility: [facility] Address: [address] [place] [address] Performed By: #### 2 276-4, 2283-8, 2131-12, ####[facility] LABCLIA [id number] [address] [address] [place] Chloride [Moles/Vol] 106 mmol/L Normal 98-107 [facility] Comment on above: Order Comment: Speci men Type: BLOOD SPECIMENOrdering Facility: [facility] Address: [address] [place] [address] Performed By: #### 2 276-4, 2283-8, 2131-12, ####[facility] LABCLIA [id number] [place] [address] [place] CO2 [Moles/Vol] 25 mmol/L Normal 22-30 [facility] Comment on above: Order Comment: Speci men Type: BLOOD SPECIMENOrdering Facility: [facility] [employer] [facility] Address: [address] [place] [address] Performed By: #### 2 276-4, 2283-8, 2131-12, ####[facility] LABCLIA [id number] [place] [address] [place] Creatinine [Mass/Vol] 0.99 mg/dL High 0.58-0.96 [facility] Comment on above: Order Comment: Speci men Type: BLOOD SPECIMENOrdering Facility: [facility] [employer] [facility] Address: [address] [place] [address] Performed By: #### 2 276-4, 8, 2131-12, ####[facility] LABCLIA [id number] [place] [address] [place] eGFRcr SerPlBld CKD-EPI 2020 70 mL/min/1.73m??? Normal >=60 [facility] Comment on above: Order Comment: Speci men Type: BLOOD SPECIMENOrdering Facility: [facility] [employer] [facility] Address: [address] [place] [address] Result Comment: Kiya mated Glomerular Filtration Rate [...] actual GFR. Performed By: #### 2 276-4, 2284-8, 9, ####[facility] LABCLIA [id number] [address] [address] [place] Glucose [Mass/Vol] 93 mg/dL Normal 74-99 [facility] Comment on above: Order Comment: Speci men Type: BLOOD SPECIMENOrdering Facility: [employer] [facility] Address: [address] [place] [address] Result Comment: The [place] Diabetes Association (ADA) provides guidance for cutoff [...] Standards of Medical Care in Diabetes 2016, [place] Diabetes Association. Diabetes Care. 2016.39(Suppl 1). Performed By: #### 2 276-4, 228-8, 2131-12, ####[facility] LABCLIA [id number] [address] [address] [place] Potassium [Moles/Vol] 4.5 mmol/L Normal 3.7-5.1 [facility] Comment on above: Order Comment: Speci men Type: BLOOD SPECIMENOrdering Facility: [facility] [employer] [place] Address: [address] [place] [address] Performed By: #### 2 276-4, 228-8, 2131-12, ####[facility] LABCLIA [id number] [address] [address] [place] Protein [Mass/Vol] 6.0 g/dL Low 6.3-8.0 [facility] Comment on above: Order Comment: Speci men Type: BLOOD SPECIMENOrdering Facility: [facility] [employer] [facility] Address: [address] [place] [address] Performed By: #### 2 276-4, 8, 2131-12, ####[facility] LABCLIA [id number] [address] [address] [place] Sodium [Moles/Vol] 142 mmol/L Normal 136-144 [facility] Comment on above: Order Comment: Speci men Type: BLOOD SPECIMENOrdering Facility: [facility] [employer] [facility] Address: [address] [place] [address] Performed By: #### 2 276-4, 2283-8, 2131-12, ####[facility] LABCLIA [id number] [address] [address] [place] Urea nitrogen [Mass/Vol] 11 mg/dL Normal 7-21 [facility] Comment on above: Order Comment: Speci men Type: BLOOD SPECIMENOrdering Facility: [facility] [employer] [facility] Address: [address] [place] [address] Performed By: #### 2 276-4, 8, 2131-12, ####[facility] LABCLIA [id number] [place] [id number] [place] Ferritin SerPl-mCncon 2024 Ferritin [Mass/Vol] 22.4 ng/mL Normal 14.7-205.[address] [facility] Comment on above: Order Comment: Speci men Type: BLOOD SPECIMENOrdering Facility: [facility] [employer] [facility] Address: [address] [place] [address] Performed By: #### 2 276-4, 2283-8, 2131-12, ####[facility] LABCLIA [id number] [place] [id number] [place] Folate SerPl-mCncon 11-22-19 25 Folate [Mass/Vol] 5.2 ng/mL Normal >4.7 [facility] Comment on above: Order Comment: Speci men Type: BLOOD SPECIMENOrdering Facility: [facility] [employer] [facility] Address: [address] [place] [address] Performed By: #### 2 276-4, 2284-8, 2132-9, 37626-8 ####[facility] LABCLIA [id number] [address] [address] [place] HbA1c (Bld)on 11-21-2024 Average glucose Estimated from glycated hemoglobin (Bld) [Mass/Vol] 103 mg/dL Normal [facility] Comment on above: Order Comment: Speci men Type: BLOOD SPECIMENOrdering Facility: [email or web address] Address: [address] [place] [address] Result Comment: eAG: (Estimated average glucose) is a calculated value from HgbA1c and is public service representative of the average blood glucose level in the last 2-3 month period. Performed By: #### 5 5454-3 ####[facility] LABCLIA [id number] [address] [place] HbA1c (Bld) [Mass fraction] 5.2 % Normal 4.3-5.6 [facility] Comment on above: Order Comment: Speci [facility] Type: BLOOD SPECIMENOrdering Facility: [facility] [employer] [facility] Address: [address] [place] [address] Result Comment: Amer [place] Diabetes Association guidelines indicate that patients with HgbA1c in the range 5.7-6.4% are at increased risk for development of diabetes, and intervention by lifestyle modification may be beneficial. HgbA1c greater or equal to 6.5% is considered diagnostic of diabetes. Performed By: #### 5 5454-3 ####[facility] LABCLIA [id number] [address] [address] [place] Iron SerPl-mCncon 11-21-2024 Iron [Mass/Vol] 70 ug/dL Normal 41-186 [facility] Comment on above: Order Comment: Davei men Type: BLOOD SPECIMENOrdering Facility: [facility] [employer] [facility] Address: [address] [place] [address] Performed By: #### 2 498-4, 36130-2, 93518-6, 3015-3 ####[facility] LABCLIA [id number] [facility] [place] [address] [place] Lipid 1996 panelon 5 Cholesterol [Mass/Vol] 215 mg/dL High <200 [facility] Comment on above: Order Comment: Speci men Type: BLOOD SPECIMENOrdering Facility: [email or web address] Address: [address] [place] [address] Result Comment: <200 mg/dL, Desirable 200-239 mg/dL, Borderline high >239 mg/dL, High Performed By: #### 2 498-4, 85195-1, 48526-4, 6-3 ####[facility] LABCLIA [id number] [facility] [address] [place] [address] [place] Cholesterol in HDL [Mass/Vol] 68 mg/dL Normal >39 [facility] Comment on above: Order Comment: Speci men Type: BLOOD SPECIMENOrdering Facility: [email or web address] Address: [address] [place] [address] Result Comment: 40-5 9 mg/dL, Acceptable >59 mg/dL, High: Negative risk factor for coronary heart disease <40 mg/dL, Low: Positive risk factor for coronary heart disease Performed By: #### 2 498-4, 53151-5, 74400-7, 6-3 ####[facility] LABCLIA [id number] [address] [place] [address] [place] Cholesterol in LDL [Mass/Vol] 132 mg/dL High <100 [facility] Comment on above: Order Comment: Vi suresh Type: BLOOD SPECIMENOrdering Facility: [employer] [facility] Address: [address] [place] [address] Result Comment: <100 mg/dL, Optimal 100-129 mg/dL, Near optimal/above optimal 130-159 mg/dL, Borderline high 160-189 mg/dL, High >189 mg/dL, Very high Secondary prevention optimal LDL Cholesterol levels are recommended to be <70 mg/dL LDL cholesterol is calculated using the Smith-NIH equation. Performed By: #### 2 498-4, 84850-7, 26696-3, 3016-3 ####[facility] LABCLIA [id number] [address] [address] [place] Cholesterol in LDL/Cholesterol in HDL [Mass ratio] 1.94 {ratio} Normal <2.54 [facility] Comment on above: Order Comment: Speci men Type: BLOOD SPECIMENOrdering Facility: [employer] [facility] Address: [address] [place] [address] Result Comment: Refe rence: 1. National Cholesterol Education Program ATP III Guideline At-A-Glance Quick Desk Reference: National Heart, Lung, and Blood Eva. National Institutes of Health. 2001: NIH Publication No. 01-3305. 2. An International Atherosclerosis Society position paper: global recommendations for the management of dyslipidemia: executive summary, Atherosclerosis. 2014: 232(2):410-413. Performed By: #### 2 498-4, 00450-6, 82589-0, 6-3 ####[facility] LABIA [id number] [address] [address] [place] Cholesterol in VLDL [Mass/Vol] 15 mg/dL Normal <30 [facility] Comment on above: Order Comment: Speci men Type: BLOOD SPECIMENOrdering Facility: [facility] Address: [address] [place] [address] Performed By: #### 2 498-4, 12117-9, 74677-3, 3016-3 ####[facility] LABIA [id number] [address] [address] [place] Cholesterol non HDL [Mass/Vol] 147 mg/dL High <130 [facility] Comment on above: Order Comment: Speci men Type: BLOOD SPECIMENOrdering Facility: [employer] [facility] Address: [address] [place] [address] Result Comment: <130 mg/dL, Optimal 130-159 mg/dL, Near optimal/above optimal 160-189 mg/dL, Borderline high 190-219 mg/dL, High >219 mg/dL, Very high Secondary prevention optimal non HDL Cholesterol levels are recommended to be <100 mg/dL Performed By: #### 2 498-4, , 24588-2, 3015-3 ####[facility] LABCLIA [id number] [facility] [address] [place] [address] [place] Cholesterol.total/Ch olesterol in HDL [Mass ratio] 3.16 {ratio} Normal <5.10 [facility] Comment on above: Order Comment: Speci men Type: BLOOD SPECIMENOrdering Facility: [facility] Address: [address] [place] [address] Performed By: #### 2 498-4, , , 3 ####[facility] LABCLIA [id number] [address] [place] [address] [place] FASTING TIME 12 hrs Normal [facility] Comment on above: Order Comment: Speci men Type: BLOOD SPECIMENOrdering Facility: [facility] [employer] [facility] Address: [address] [place] [address] Performed By: #### 2 498-4, , , 3015-3 ####[facility] LABCLIA [id number] [address] [place] [address] [place] Triglyceride [Mass/Vol] 85 mg/dL Normal <150 [facility] Comment on above: Order Comment: Speci men Type: BLOOD SPECIMENOrdering Facility: [facility] Address: [address] [place] [address] Result Comment: <150 mg/dL, Normal 150-199 mg/dL, Borderline high 200-499 mg/dL, High >499 mg/dL, Very high Performed By: #### 2 498-4, , 15557-7, 3015-3 ####[facility] LABCLIA [id number] [facility] [address] [place] [address] [place] Magnesium [facility] Magnesium [Mass/Vol] 2.1 mg/dL Normal 1.7-2.3 [facility] Comment on above: Order Comment: Speci men Type: BLOOD SPECIMENOrdering Facility: [facility] Address: [address] [place] [address] Performed By: #### 2 498-4, 11351-5, 08380-2, 3016-3 ####[facility] LABCLIA [id number] [place] [address] [place] NICOTINE/COTININEon 11-22-19 Cotinine [Mass/Vol] <2 Normal <[address] [facility] Comment on above: Order Comment: Speci men Type: BLOOD SPECIMENOrdering Facility: [facility] Address: [address] [place] [address] Result Comment: Acti ve tobacco product user: [...] and its performance characteristics determined by the [facility] Department of Pathology and Laboratory Medicine. It has not been cleared or approved by the FDA. The [facility] Department of Pathology and Laboratory Medicine is regulated under CLIA as qualified to perform high-complexity testing. This test is used for clinical purposes. It should not be regarded as investigational or for research. Performed By: #### N ICOT ####[facility] LABCLIA [id number] [place] [id number] [place] Nicotine [Mass/Vol] <2 Normal <[address] [facility] Comment on above: Order Comment: Speci men Type: BLOOD SPECIMENOrdering Facility: [facility] Address: [address] [place] [address] Performed By: #### N ICOT ####[facility] LABCLIA [id number] [address] [address] [place] TSH SerPl-aCncon 11-21-2024 TSH Qn 1.540 m[IU]/L Normal 0.270-4.200 [facility] Comment on above: Order Comment: Vi suresh Type: BLOOD SPECIMENOrdering Facility: [facility] Address: [address] [place], [place] [address] Result Comment: If t he patient is , TSH reference range varies by gestational period: First Trimester (weeks 9-12): 0.180-2.990 mIU/L Second Trimester: 0.110-3.980 mIU/L Third Trimester: 0.480-4.710 mIU/L ePdro Rose et al. A Practical Approach for the Verifications and Determination of Site- and Trimester-Specific Reference Intervals for Thyroid Function tests in . Thyroid, 2019:29:3:412-420. Teja Faust, et al. 2017 Guidelines of the [place] [employer] for the Diagnosis and Management of Thyroid Disease during and the . Thyroid, 2017:27:3:315-389. Performed By: #### 2 498-4, 46528-2, 40044-5, 3016-3 ####[facility] LABCLIA [id number] [place] [address] [place] VITAMIN B1 (THIAMINE), WHOLE BLOODon 11-21-2024 Thiamine (Bld) [Moles/Vol] 90.4 nmol/L Normal 84.3-213.3 [facility] Comment on above: Order Comment: Vi suresh Type: BLOOD SPECIMENOrdering Facility: [facility] Address: [address] [place], [place] [address] Result Comment: This assay measures the concentration of thiamine diphosphate (TDP), the primary active form of vitamin B1. Approximately 90 percent of vitamin B1 present in whole blood is TDP. Thiamine and thiamine monophosphate, which comprise the remaining 10 percent, are not measured. This test was developed, and its performance characteristics determined by the [facility] Department of Pathology and Laboratory Medicine. It has not been cleared or approved by the FDA. The [facility] Department of Pathology and Laboratory Medicine is regulated under CLIA as qualified to perform high-complexity testing. This test is used for clinical purposes. It should not be regarded as investigational or for research. Performed By: #### B 1WB ####[facility] LABCLIA [id number] [address] [address] [place] Vit B12 [facility] 025 Cobalamin (Vitamin B12) [Mass/Vol] 285 pg/mL Normal 232-1245 [facility] Comment on above: Order Comment: Speci men Type: BLOOD SPECIMENOrdering Facility: [facility] Address: [address] [place] [address] Performed By: #### 2 276-4, 2284-8, 2132-9, 21152-7 ####[facility] LABIA [id number] [place] [id number] [place] Zinc [facility] 11-21-2024 Zinc [Mass/Vol] 53 ug/dL Low 60-120 [facility] Comment on above: Order Comment: [facility] Type: BLOOD SPECIMENOrdering Facility: [facility] Address: [address] [place] [address] Result Comment: This test was developed, and its performance characteristics determined by the [facility] Department of Pathology and Laboratory Medicine. It has not been cleared or approved by the FDA. The [facility] Department of Pathology and Laboratory Medicine is regulated under CLIA as qualified to perform high-complexity testing. This test is used for clinical purposes. It should not be regarded as investigational or for research. Performed By: #### 5 763-8 ####[facility] LABIA [id number] [address] [address] [place] 36on 11-15-2024 36 Left message fro pat ient to call back to reschedule. Normal [facility] Office Visiton 10-04-2024 Follow-up visit [id number] Michael Browning 1975 F Date Provider Department Center 10/04/2024 [id number] [facility] None Family History Problem Relation [...] Brother Maternal Grandmother Maternal Grandfather Level of Service:06718 SC OFFICE/OUTPATIENT ESTABLISHED LOW MDM 20 MIN Reason for Visit and Comments: Weight Loss [913121] - D/e 07/09 [facility] Progress Noteon 10-04-2024 Progress Note HPI, PHYSICAL [...] performed.Clinical documentation is updated and completed. Normal [facility] Office Visiton 09-13-2024 Follow-up visit [id number] Michael Browning 1975 F Date Provider Department Center 09/13/2024 [id number] [facility]IDDLE [facility] None Family History Problem Relation [...] Brother Maternal Grandmother Maternal Grandfather Level of Service:40420 SC OFFICE/OUTPATIENT ESTABLISHED LOW MDM 20 MIN Reason for Visit and Comments: Weight Loss [745443] - D/E 06/08 [facility] Progress Noteon 09-13-2024 Progress Note HPI, PHYSICAL [...] was performed.Clinical documentation is updated and completed. [facility] CNOVon 09-04-2024 CNOV Office Visit (FAMPWS ) SALMA BROWNING ([id number]) 1975 F T Date Time Provider Department 09/04/24 10:40 AM NEAL GOMEZ During your visit today, we recorded the following information about you: Pulse Respiration Blood pressure Weight 68/minute 16/minute 128/90 124.7 kg Neal Gomez APRN.DECISION SCIENCE ANALYST 09/04/2024 10:49 AM Signed Chief Complaint Patient presents with: Mass: Sore spot on left side of head above ear x week HPI Salmastarla Browning is a 49 year old female [...] incision and drainage. - Prescription sent to [facility] in [place]. Neal Gomez APRN.NORI This note was partly generated using [employer] voice recognition dictation and may contain some misspelled or inaccurate words missed on review. Recording using [employer] software for draft documentation of the visit was discussed with the patient/authorized public service representative; all questions welcomed and answered. Patient/authorized public service representative agreed to proceed Neal Gomez APRN.CNP 09/04/2024 10:45 AM Signed We discussed your concerns about the sore on the left side of your head: - I am diagnosing this as a localized bacterial skin infection. - I have prescribed Bactrim DS (sulfamethoxazole/trimethopr im), 1 tablet twice daily for 10 days. This prescription has been sent to your preferred [facility] pharmacy in [place]. - Please take this medication with plenty [...] 10 d (more content not included)... Normal [facility] Office Visiton 08-16-2024 Follow-up visit [id number] Michael Browning 1975 F Date Provider Department Center 08/16/2024 [id number] [facility] None Family History Problem Relation [...] Brother Maternal Grandmother Maternal Grandfather Level of Service:81576 SC OFFICE/OUTPATIENT ESTABLISHED LOW [facility] 20 MIN Reason for Visit and Comments: Weight Loss [997026] - D/E 05/11 Normal [facility] Progress Noteon 08-16-2024 Progress Note HPI, [...] was performed.Clinical documentation is updated and completed. [facility] Office Visiton 07-14-2024 Follow-up visit [id number] Michael Browning 1975 F Date Provider Department Center 07/14/2024 [id number] RIDDLE [facility] None Family History Problem Relation [...] Brother Maternal Grandmother Maternal Grandfather Level of Service:71643 SC OFFICE/OUTPATIENT ESTABLISHED MOD MDM 30 MIN Reason for Visit and Comments: Weight Management [645] - D/E 1 of 6 restart [facility] Progress Noteon 07-14-2024 Progress Note BARIATRIC CARE [...] Weight: 277 lb 6.4 oz (126 kg) [place] Body Weight: 131 lb (59.4 kg) Initial [...] information? 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 [address] 06-30-2024 36 Spoke with this teresa ent, she has been scheduled with NK on 07/14. D/E [address] 06-29-2024 36 Patient left vmail t hat she is still interested in surgery and would like to schedule an appointment. Please call her to schedule a de visit- this will now be de . [address] 05-02-2024 36 Lvm for return call to see if pt still interested in program. Has not been seen for de in almost [address] 04-10-2024 36 I called this patien t to reschedule a canceled visit from March with no answer. I left a voicemail and a callback number. [place] [phone] Please call patient to schedule her d/e that she missed in March. Thanks! [facility] (UCWSTR ) SALMA BROWNING ([id number]) 1975 F T Date Time Provider Department 03/14/24 10:30 AM JOHN [facility]ES [facility] During your visit today, we recorded the following information about you: Temperature Pulse Respiration Blood pressure 98.1 degrees 94/minute 16/minute 122/76 Weight 121.6 kg John Nieves PA 03/14/2024 11:10 AM Signed This note was created using [employer]. Subjective Salma Browning is a 49 year [...] of COPD or asthma. She has taken yjhs-lrk-kfskisc medications without improvement in symptoms. She has [...] IMPLANT 12/06/09 Performed by KATHI POWELL at [facility] RPR DISLOC PERONEAL TENDON W/O FIBULAR OSTEOTOMY 12/06/09 Performed by KATHI POWELL at [facility] SIGMOIDOSCOPY FLX DX W/COLLJ SPEC BR/WA [...] chills an (more content not included)... Normal [facility] STREP A MOLECULAR (POC)on Procedural Control Valid [facility] Strep A (POCT) Negative Negative [facility] XR CHEST 2V FRONTAL/LATon XR CHEST 2V [...] tissues: Unremarkable. IMPRESSION: No acute radiographic abnormality. Coke Inspector: SANDHYA Transcribe Date/Time: Mar 14 2024 11:01A Dictated by : NANI JONES MD This examination was interpreted and the report reviewed and electronically signed by: NANI JONES MD on Mar 14 2024 11:02AM EST [id number] Normal [facility] XR Chest PA and Lateralon IMPRESSION: No acute radiographic abnormality. Coke Inspector: SANDHYA Transcribe Date/Time: Mar 14 2024 11:01A [...] tissues: Unremarkable. DIVISION OF RADIOLOGY Provider, Dirk [facility] - 03/14/2024 * * *Final Report* [...] Unremarkable. IMPRESSION IMPRESSION: No acute radiographic abnormality. Coke Inspector: SANDHYA Transcribe Date/Time: Mar 14 2024 11:01A Dictated by : NANI JONES MD This examination was interpreted and the report reviewed and electronically signed by: NANI JONES MD on Mar 14 2024 11:02AM EST [facility] Radiology Study observation (narrative) [facility] XR Chest PA and LateralOrder ed By: Ccf Provider on 03-14-2024 [facility] Op Noteon 03-10-2024 Op Note [facility] Patient Name: Salma Browning Procedure Date: 03/10/2024 9:42 AM Gender: Female Date of : 1975 Age: 49 Admit Type: Outpatient Note Status: Finalized Endoscopist: Nate Winters MD, [id number] Procedure: Upper GI endoscopy Indications: Heartburn Findings: [...] immediate complications. Procedure Code(s): --- Professional --- 63718, Esophagogastroduodenoscopy, flexible, transoral; with biopsy, single or multiple --- Technical --- 84712, Esophagogastroduodenoscopy, flexible, transoral; with biopsy, single or multiple Diagnosis Code(s): --- Professional --- K29.70, Gastritis, unspecified, without bleeding R12, Heartburn --- Technical --- K29.70, Gastritis, unspecified, without bleeding R12, Heartburn CPT copyright 2021 [employer]. All rights reserved. The codes documented in this report are preliminary and upon agency sales director review may be revised to meet current compliance requirements. Attending Participation: I personally performed the entire procedure. Nate Winters MD. Nate Winters MD 03/10/2024 10:23:38 AM This report has been signed electronically. Number of Addenda: 0 Note Initiated On: 03/10/2024 9:42 AM [facility] Office Visiton 02-11-2024 Follow-up visit [id number] Michael Browning 1975 F Date Provider Department Center 02/11/2024 [id number] RIDDLE [facility] None Family History Problem Relation [...] Brother Maternal Grandmother Maternal Grandfather Level of Service:13641 SC OFFICE/OUTPATIENT NEW MODERATE MDM 45 MINUTES Reason for Visit and Comments: Weight Management [645] - D/E new 1 of 6 [facility] Progress Noteon 02-11-2024 Progress Note BARIATRIC CARE [...] Date ANKLE SURGERY 2005 x 2 - [place] CHOLECYSTECTOMY 2014 FACIAL SURGERY (HISTORICAL) 2019 several for MRSA HYSTERECTOMY 2016 [place] SINUS SURGERY 2000 [place] TONSILLECTOMY 1986 [facility] TUMOR EXCISION 2014 Lipoma of abdomen Family [...] (123 kg) Initial BMI: Initial BMI: 46.55 [place] Body Weight: [place] Body Weight: 131 lb (59.4 kg) Excess [...] DIET HISTORY 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 VZWDJFLVFE-UZAJKCDFZDOJM-DWA FEINE (FIORICET) 50-300-40 MG CAPSULE Take 1 [...] (PRILOSEC) 40 MG (more content not included)... Normal [facility] Progress Note BARIATRIC CARE [facility] SURGICAL WEIGHT LOSS MANAGEMENT PROGRAM SUPERVISED DIET [...] Weight: 271 lb 3.2 oz (123 kg) [place] Body Weight: 131 lb (59.4 kg) Initial [...] information? Yes Completed by: Roxi Sunshine MA [facility] 36on 01-14-2024 36 PRE-OP CHECKLIST SCA NNED ORDERS MAILED [facility] 36 Orders signed. Check list completed. EGD order placed and routed to legal recovery specialist. [facility] Progress Noteon 01-14-2024 Progress Note Printed [facility] Progress Note Auth required: No Insurance: [facility] MEDICAID I Notes: No Auth Required for CPT Code 86180 [facility] Progress Note Patient is scheduled for EGD with biopsy- CPT 09663 on March 10, 2024 at 10:20 am. Contact attempts- 3 must be made in 2 different forms. Discussed with patient via phone and sent [employer] message after confirming pt active on [employer] Important info discussed as applicable: Is patient [...] holding this medication with the prescribing provider [facility] Progress Note Left VM for patient to call and schedule EGD. [facility] Progress Note ENDOSCOPY ORDERS To be scheduled with: Dr. Winters Patient is: Pre-op/Pre-Bariatric Surgery CPT code: EGD with biopsy- CPT 35972 Diagnosis: GERD- K21.9 If pre-op, Diet & [...] need to be obtained prior to scheduling [facility] Office Visiton 01-04-2024 Follow-up visit [id number] Michael Browning 1975 F Date Provider Department Center 01/04/2024 [id number] WINTERS [facility] BCC SURG None Family History Problem Relation [...] Brother Maternal Grandmother Maternal Grandfather Level of Service:93353 SC OFFICE/OUTPATIENT NEW MODERATE MDM 45 MINUTES Reason for Visit and Comments: Surgical Consult [878] - NEW [facility] Progress Noteon 01-04-2024 Progress Note BARIATRIC CARE [...] home O2 Completed by: Fátima Marin LPN [facility] Miscellaneous Lab Procedureo n 12-26-2023 [facility] TEST [facility] Comment on above: Order Comment: RUN L OWEST TEST [id number] URINE TOX Result Comment: 7645 63 6+OXYCODONE-BUND (ng/mL) DRUG RESULT SCREEN CUTOFF ____ Amphetamines,Urine Negative ng/mL 1000 Amphetamine test includes Amphetamine and Methamphetamine. Barbiturates Negative ng/mL 200 Benzodiazepines Negative ng/mL 200 Cannabinoid Negative ng/mL 20 Cocaine (Metab) Negative ng/mL 300 Opiates Negative ng/mL 300 Opiates test includes Codeine, Morphine, Hydromorphone, Hydrocodone. Oxycodone/Oxymorphone,Urine Negative ng/mL 300 Test includes Oxycodone and Oxymorphone. TESTING PERFORMED AT [facility]. ORIGINAL REPORT ON FILE IN LAB CONTAINS ADDITIONAL TEST SITE INFORMATION. Performed By: #### L 505.5000, L801.1541 #### [facility] [address] [place], [place], [id number] Urine Drug Screen (VISTA)on 12-23-2023 AMPHETAMINES Negative Normal <1000 ng/mL [facility] Comment on above: Order Comment: RUN L OWEST TEST MEDTOX Performed By: #### L 505.5000, L801.1541 #### [facility] [address] [place], [place], [address] BARBITIURATES Negative Normal < 200 ng/mL [facility] Comment on above: Order Comment: RUN L OWEST TEST MEDTOX Performed By: #### L 505.5000, L801.1541 #### [facility] [address] [place], [address] BENZODIAZIPINE Negative Normal < 200 ng/mL [facility] Comment on above: Order Comment: RUN L OWEST TEST MEDTOX Performed By: #### L 505.5000, L801.1541 #### [facility] [address] [place], [address] COCAINE Negative Normal < 300 ng/mL [facility] Comment on above: Order Comment: RUN L OWEST TEST MEDTOX Performed By: #### L 505.5000, L801.1541 #### [facility] [address] [place], [address] ECSTACY Negative Normal < 500 ng/mL [facility] Comment on above: Order Comment: RUN L OWEST TEST MEDTOX Performed By: #### L 505.5000, L801.1541 #### [facility] [address] [place], [address] METHADONE Negative Normal < 300 ng/mL [facility] Comment on above: Order Comment: RUN L OWEST TEST MEDTOX Performed By: #### L 505.5000, L801.1541 #### [facility] [address] [place], [address] OPIATES Negative Normal < 300 ng/mL [facility] Comment on above: Order Comment: RUN L OWEST TEST MEDTOX Performed By: #### L 505.5000, L801.1541 #### [facility] [address] [place], [address] PCP Negative Normal < 25 ng/mL [facility] Comment on above: Order Comment: RUN L OWEST TEST MEDTOX Performed By: #### L 505.5000, L801.1541 #### [facility] [address] [place], [address] THC Negative Normal < 50 ng/mL [facility] Comment on above: Order Comment: RUN L OWEST TEST MEDTOX Performed By: #### L 505.5000, L801.1541 #### [facility] [address] [place], [address] VISTA UDS PH 4 Normal [facility] Comment on above: Order Comment: RUN L OWEST TEST MEDTOX Performed By: #### L 505.5000, L801.1541 #### [facility] [address] [place], [address] CNOVon 12-13-2023 CNOV Office Visit (ORTHWS ) SALMA BROWNING ([id number]) 1975 F T Date Time Provider Department 12/13/23 1:30 PM OKSANA KENNEY During your visit today, we recorded the following information about you: Adia Diana MA 12/13/2023 2:39 PM Signed Patient presents with: [...] a pop in her knee. Seen at [facility] ED. She was given a knee immobilizer and crutches. She was unable to wear the immobilizer. She is having difficulty going up steps. She has to pull herself up the steps. Taking Celebrex for the pain and does not help. Oksana Kenney PA-C 12/13/2023 2:39 PM Signed Oksana Kenney PA-C Department of Orthopaedics Orthopaedics [address] [facility] [address] Dept: [phone] Dept December 13, 2023 CHIEF COMPLAINT: Follow [...] her right knee. She was seen at [facility], placed in a knee immobilizer and [...] meet with a weight loss surgeon in [facility] to discuss her options. ASSESSMENT: M17.0 Primary [...] knee joint Informed Consent Consent Obtained: Verbal Sibley Protocol A moment to CARE was completed. SIGN IN Sign in communication not applicable due to emergent procedure. Personnel directly involved with the procedure wore the appropriate PPE. Special Equipment: N/A Patient/Surrogate Stated/Verified: Patient name, Date of , Relevant all (more content not included)... Normal [facility] Large Joint Arthro/Inj: R kn ee jointon 12-13-2023 Oksana Kenney PA -C 12/13/2023 2:39 PM Large Joint Arthro/Inj: R knee joint Informed Consent Consent Obtained: Verbal Sibley Protocol A moment to CARE was completed. [...] Plan of Care Visit completed when applicable [facility] CNOVon 12-03-2023 [facility] SALMA BROWN[facility] ([id number]) 1975 F [facility] Date Time Provider Department 12/03/23 1:00 PM MARY MCMILLAN [facility] During your visit today, we recorded the following information about you: Pulse Respiration Blood pressure Weight 88/minute 16/minute 142/100 126.8 kg Height 1.626 m Mary Mcmillan APRN.DECISION SCIENCE ANALYST 12/03/2023 2:54 PM Signed This is a [...] at least once daily. Has appt with [facility] next for further evaluation. Lasting [...] IMPLANT Comment: Performed by KATHI POWELL at [facility] 12/06/09: RPR DISLOC PERONEAL TENDON W/O FIBULAR OSTEOTOMY Comment: Performed by KATHI POWELL at [facility] 06/2004: SIGMOIDOSCOPY FLX DX W/COLLJ SPEC [...] mg tab (more content not included)... Normal [facility] 12-03-2023 [facility] Telephone ([facility]) SALMA BROWNING ([id number]) 1975 F T Date Time Provider Department 12/03/23 SUSAN SEVILLA [facility] During your visit today, we recorded the following information about you: Jennifer Briseno LPN 12/03/2023 3:24 PM Signed Prior authorization approved Payer: [facility] Note from payer: Your PA request for [id number] was approved for 365 days. The PA# assigned is [id number]. Approval Details Authorization number: [id number] Authorized from December 03, 2023 to December [...] to its destination. To be filled at: [facility] [address] [place] [id number] [facility] [phone] Jennifer Drake LPN 12/03/2023 4:46 PM Signed Pharmacy notified. 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 Normal [facility] CNPN Telephone (PSCSTR) SALMA BROWNING ([id number]) 1975 F [facility] Date Time Provider Department 12/03/23 ALVIN MCINTOSH [facility] During your visit today, we recorded the following information about you: Alvin Mcintosh LISW 12/03/2023 2:28 PM Signed Behavioral Health Social Work Progress Note Patient identified for [facility] from: PCP Reason for referral: [facility] Assessment [facility] encounter type: Telephone Encounter Attempts to Outreach: 1 attempt Referral made: Psychiatry - Internal Psychiatry-Internal referral type: Medication Management Final Disposition: Unable to reach Patient Discharged?: No Patient reported that caregiver was able to meet their needs today?: N/A [facility] consult received for anxiety. Would like to see Osiris Sanchez APRN.CNP for medication management. Phone call placed today that went to [employer]. Left my contact information and brief nature of call. Initial outreach also completed via [facility] sending list times/dates available to complete an assessment. CLIFFORD Evans, [facility]- December 03, 2023 Allergies As of Date: [...] malleolus [S82.63XA] 09/03/2008 02/08/2013 Nonunion of fracture [[id number]] 02/11/2009 02/08/2013 Urticaria [L50.9] 05/10/2009 02/08/2013 Anxiety [...] knees [ (more content not included)... Normal [facility] CT Chest W contrast Roseanna IMPRESSION: No CT evidence of acute abnormality. Mild atelectasis/scarring in the right middle lobe and lingula. Abdominal findings as described above. Coke Inspector: PSCB Transcribe Date/Time: Oct 25 2023 2:35P Dictated by : TAWANA ARZOLA MD This examination was interpreted and the report reviewed and electronically signed by: TAWANA ARZOLA MD on Oct 25 2023 2:44PM [facility] DIVISION OF RADIOLOGY * * *Final Report* * * DATE OF EXAM: Oct 25 2023 2:33PM [facility] 0539 - CT CHEST W IVCON / [...] No additional findings. DIVISION OF RADIOLOGY Provider, [facility] - 10/25/2023 * * *Final Report* * * DATE OF EXAM: Oct 25 2023 2:33PM [facility] 0539 - CT CHEST W IVCON / [...] and lingula. Abdominal findings as described above. Coke Inspector: SANDHYA Transcribe Date/Time: Oct 25 2023 2:35P Dictated by : TAWANA ARZOLA MD This examination was interpreted and the report reviewed and electronically signed by: TAWANA ARZOLA MD on Oct 25 2023 2:44PM [facility] Radiology Study observation (narrative) [facility] CT Chest W contrast IVOrdere d By: Ccf Provider on 10-25-2023 [facility] XR Chest PA and Lateralon IMPRESSION: Overall findings unchanged. Coke Inspector[facility] Trans[facility] Date/Time: Oct 20 2023 1:39P Dictated by : TAWANA ARZOLA MD This examination was interpreted and the report reviewed and electronically signed by: TAWNAA ARZOLA MD on Oct 20 2023 1:40PM [facility] DIVISION OF RADIOLOGY * * *Final Report* [...] tissues: Unremarkable. DIVISION OF RADIOLOGY Provider, Dirk Du [facility] - 10/20/2023 * * *Final Report* * [...] tissues: Unremarkable. IMPRESSION IMPRESSION: Overall findings unchanged. Coke Inspector: SANDHYA Transcribe Date/Time: Oct 20 2023 1:39P Dictated by : TAWANA ARZOLA MD This examination was interpreted and the report reviewed and electronically signed by: TAWANA ARZOLA MD on Oct 20 2023 1:40PM EST [facility] Radiology Study observation (narrative) [facility] XR Chest PA and LateralOrder ed By: Ccf Provider on 10-20-2023 [facility] STREP A MOLECULAR (POC)on Procedural Control Valid [facility] Strep A (POCT) Negative Negative [facility] STREP A MOLECULAR (POC)on Procedural Control Valid [facility] Strep A (POCT) Negative Negative [facility] XR Chest PA and Lateralon IMPRESSION: Scarring or atelectasis as described above. Coke Inspector: SANDHYA Transcribe Date/Time: Jul 24 2023 9:37A Dictated by : TAWANA ARZOLA MD This examination was interpreted and the report reviewed and electronically signed by: TAWANA ARZOLA MD on Jul 24 2023 9:41AM [facility] DIVISION OF RADIOLOGY * * *Final Report* [...] soft tissues: Unremarkable. DIVISION OF RADIOLOGY Provider, [facility] - 07/24/2023 * * *Final Report* * [...] IMPRESSION: Scarring or atelectasis as described above. Coke Inspector: SANDHYA Transcribe Date/Time: Jul 24 2023 9:37A Dictated by : TAWANA ARZOLA MD This examination was interpreted and the report reviewed and electronically signed by: TAWANA ARZOLA MD on Jul 24 2023 9:41AM EST [facility] XR Chest PA and LateralOrder ed By: Ccf Provider on 07-24-2023 [facility] CBC W Auto Differential pane l (Bld)on 07-23-2023 Basophils (Bld) [#/Vol] <0.11 k/uL [facility] Basophils/100 WBC (Bld) 0.4 % [facility] Differential cell count method Nom (Bld) Auto [facility] Eosinophils (Bld) [#/Vol] 0.05 10*3/uL <0.46 k/uL [facility] Eosinophils/100 WBC (Bld) 0.9 % [facility] Erythrocyte distribution width (RBC) [Ratio] 14.6 % 11.5 - 15.0 % [facility] Hematocrit (Bld) [Volume fraction] 40.1 % 36.0 - 46.0 % [facility] Hemoglobin (Bld) [Mass/Vol] 13.1 g/dL 11.5 - 15.5 g/dL [facility] Immature granulocytes (Bld) [#/Vol] <0.10 k/uL [facility] Immature granulocytes/100 WBC (Bld) 0.4 % [facility] Lymphocytes (Bld) [#/Vol] 1.81 10*3/uL 1.00 - 4.00 k/uL [facility] Lymphocytes/100 WBC (Bld) 32.1 % [facility] MCH (RBC) [Entitic mass] 28.7 pg 26.0 - 34.0 pg [facility] MCHC (RBC) [Mass/Vol] 32.7 g/dL 30.5 - 36.0 g/dL [facility] MCV (RBC) [Entitic vol] 87.9 fL 80.0 - 100.0 fL [facility] Monocytes (Bld) [#/Vol] 0.31 10*3/uL <0.87 k/uL [facility] Monocytes/100 WBC (Bld) 5.5 % [facility] Neutrophils (Bld) [#/Vol] 3.43 10*3/uL 1.45 - 7.50 k/uL [facility] Neutrophils/100 WBC (Bld) 60.7 % [facility] Nucleated RBC (Bld) [#/Vol] 0.02 10*3/uL High <0.01 k/uL [facility] Nucleated RBC/100 WBC (Bld) [Ratio] 0.4 /100 WBC [facility] Platelet mean volume (Bld) [Entitic vol] 10.9 fL 9.0 - 12.7 fL [facility] Platelets (Bld) [#/Vol] 209 10*3/uL 150 - 400 k/uL [facility] RBC (Bld) [#/Vol] 4.56 10*6/uL 3.90 - 5.2 0 m/uL [facility] WBC (Bld) [#/Vol] 5.64 10*3/uL 3.70 - 11.00 k/uL [facility] Comprehensive metabolic 2000 panelon 07-23-2023 Albumin [Mass/Vol] 4.6 g/dL 3.9 - 4.9 g/dL [facility] ALP [Catalytic activity/Vol] 66 U/L 34 - 123 U/L [facility] ALT [Catalytic activity/Vol] 12 U/L 7 - 38 U/L [facility] Anion gap [Moles/Vol] 11 mmol/L 9 - 18 mmol/L [facility] AST [Catalytic activity/Vol] 13 U/L 13 - 35 U/L [facility] Bilirubin [Mass/Vol] 0.5 mg/dL 0.2 - 1 .3 mg/dL [facility] Calcium [Mass/Vol] 9.5 mg/dL 8.5 - 10. 2 mg/dL [facility] Chloride [Moles/Vol] 106 mmol/L High 97 - 10 5 mmol/L [facility] CO2 [Moles/Vol] 23 mmol/L 22 - 30 mmol/L [facility] Creatinine [Mass/Vol] 1.00 mg/dL High 0.58 - 0.96 mg/dL [facility] Estimated Glomerular Filtration Rate 69 mL/min/1.73m >=60 mL/min/1.73 m [facility] Glucose [Mass/Vol] 76 mg/dL 74 - 99 mg/dL [facility] Potassium [Moles/Vol] 4.1 mmol/L 3.7 - 5.1 mmol/L [facility] Protein [Mass/Vol] 7.1 g/dL 6.3 - 8.0 g/dL [facility] Sodium [Moles/Vol] 140 mmol/L 136 - 144 mmol/L [facility] Urea nitrogen [Mass/Vol] 28 mg/dL High 7 - 21 mg/dL [facility] HbA1c (Bld)on 07-23-2023 Average glucose Estimated from glycated hemoglobin (Bld) [Mass/Vol] 91 mg/dL [facility] HbA1c (Bld) [Mass fraction] 4.8 % 4.3 - 5.6 % [facility] T4 FREE/FREE THYROXINEon Free T4 [Mass/Vol] 1.2 ng/dL 0.9 - 1.7 ng/dL [facility] THYROID STIMULATING HORMONEo n 07-23-2023 TSH Qn 1.480 m[IU]/L 0.270 - 4.200 mIU/L [facility] XR Chest PA and Lateralon Radiology Study observation (narrative) [facility] XR Knee - right 4 Viewson IMPRESSION: Small knee joint effusion without acute osseous abnormality. Coke Inspector: PSCB Transcribe Date/Time: Jul 01 2023 3:10P Dictated by : PUJA FRAZIER MD This examination was interpreted and the report reviewed and electronically signed by: PUJA FRAZIER MD on Jul 01 2023 3:11PM EST [facility] * * *Final Report* * * DATE OF EXAM: Jun 29 2023 1:16PM [facility] - XR KNEE 4V AP/PA BOTH+LAT/ERIC [...] significant degenerative change. Small knee joint effusion. [facility] Provider, Dirk Roland - 07/01/2023 * * *Final Report* * * DATE OF EXAM: Jun 29 2023 1:16PM [facility] - XR KNEE 4V AP/PA BOTH+LAT/ERIC [...] knee joint effusion without acute osseous abnormality. Coke Inspector[facility] Transcribe Date/Time: Jul 01 2023 3:10P Dictated by : PUJA FRAZIER MD This examination was interpreted and the report reviewed and electronically signed by: PUJA FRAZIER MD on Jul 01 2023 3:11PM EST [facility] XR Knee - right 4 ViewsOrder ed By: Ccf Provider on 07-01-2023 [facility] XR Knee - right 4 Viewson Radiology Study observation (narrative) [facility] XR Cervical spine AP and Lat eral and obliqueon 05-14-2023 IMPRESSION: C5-6 dis c space narrowing likely degenerative. Coke Inspector: [facility] Transcribe Date/Time: May 14 2023 9:23P Dictated by : TAWANA ARZOLA MD This examination was interpreted and the report reviewed and electronically signed by: TAWANA ARZOLA MD on May 14 2023 9:25PM [facility] DIVISION OF RADIOLOGY * * *Final Report* [...] are normal. DIVISION OF RADIOLOGY Provider, Dirk Du [facility] - 05/14/2023 * * *Final Report* * [...] IMPRESSION: C5-6 disc space narrowing likely degenerative. Coke Inspector: [facility] Transcribe Date/Time: May 14 2023 9:23P Dictated by : TAWANA ARZOLA MD This examination was interpreted and the report reviewed and electronically signed by: TAWANA ARZOLA MD on May 14 2023 9:25PM [facility] Radiology Study observation (narrative) [facility] XR Cervical spine AP and Lat eral and obliqueOrdered By: Ccf Provider on 05-14-2023 [facility] XR Chest PA and Lateralon IMPRESSION: Atelectasis or scarring in the left lower lung. Coke Inspector: [facility] Transcribe Date/Time: Dec 25 2022 9:41A Dictated by : TAWANA ARZOLA MD This examination was interpreted and the report reviewed and electronically signed by: TAWANA ARZOLA MD on Dec 25 2022 9:43AM [facility] DIVISION OF RADIOLOGY * * *Final Report* [...] tissues: Unremarkable. DIVISION OF RADIOLOGY Provider, Dirk barraza Eva - 12/25/2022 * * *Final Report* * [...] or scarring in the left lower lung. Coke Inspector: PSCB Transcribe Date/Time: Dec 25 2022 9:41A Dictated by : TAWANA ARZOLA MD This examination was interpreted and the report reviewed and electronically signed by: TAWANA ARZOLA MD on Dec 25 2022 9:43AM EST [facility] Radiology Study observation (narrative) [facility] XR Chest PA and LateralOrder ed By: Ccf Provider on 12-25-2022 [facility] ALLIE SCREENING W TOMOon 12-08 [facility] XR FOOT GENERAL 3V AP/LAT/OB L LEFTon 11-04-[address] [facility] [address] FOOT WO IVCON LEFTon 07- [facility] No Panel Informationon 10-19 [facility] XR FOOT GENERAL 3V AP/LAT/OB L LEFTon 09-14-2022 [facility] CBC W Auto Differential pane l (Bld)on 07-30-2022 Basophils (Bld) [#/Vol] <0.11 k/uL [facility] Basophils/100 WBC (Bld) 0.5 % [facility] Differential cell count method Nom (Bld) Auto [facility] Eosinophils (Bld) [#/Vol] <0.46 k/uL [facility] Eosinophils/100 WBC (Bld) 0.0 % [facility] Erythrocyte distribution width (RBC) [Ratio] 13.0 % 11.5 - 15.0 % [facility] Hematocrit (Bld) [Volume fraction] 42.1 % 36.0 - 46.0 % [facility] Hemoglobin (Bld) [Mass/Vol] 13.7 g/dL 11.5 - 15.5 g/dL [facility] Immature granulocytes (Bld) [#/Vol] <0.10 k/uL [facility] Immature granulocytes/100 WBC (Bld) 0.2 % [facility] Lymphocytes (Bld) [#/Vol] 1.64 10*3/uL 1.00 - 4.00 k/uL [facility] Lymphocytes/100 WBC (Bld) 38.3 % [facility] MCH (RBC) [Entitic mass] 28.4 pg 26.0 - 34.0 pg [facility] MCHC (RBC) [Mass/Vol] 32.5 g/dL 30.5 - 36.0 g/dL [facility] MCV (RBC) [Entitic vol] 87.2 fL 80.0 - 100.0 fL [facility] Monocytes (Bld) [#/Vol] 0.27 10*3/uL <0.87 k/uL [facility] Monocytes/100 WBC (Bld) 6.3 % [facility] Neutrophils (Bld) [#/Vol] 2.34 10*3/uL 1.45 - 7.50 k/uL [facility] Neutrophils/100 WBC (Bld) 54.7 % [facility] Nucleated RBC (Bld) [#/Vol] <0.01 k/uL [facility] Nucleated RBC/100 WBC (Bld) [Ratio] 0.0 /100 WBC [facility] Platelet mean volume (Bld) [Entitic vol] 10.5 fL 9.0 - 12.7 fL [facility] Platelets (Bld) [#/Vol] 187 10*3/uL 150 - 400 k/uL [facility] RBC (Bld) [#/Vol] 4.83 10*6/uL 3.90 - 5.2 0 m/uL [facility] WBC (Bld) [#/Vol] 4.28 10*3/uL 3.70 - 11.00 k/uL [facility] Laboratory - Drug toxicology Ordered By: Dr. Zhou on 05-06-2022 Amphetamines Ql (U) Negative <1000 ng/mL [facility] Benzodiazepines Ql (U) Negative < 200 ng/mL [facility] Cannabinoids Screen Ql (U) Negative < 50 ng/mL [facility] Cocaine Ql (U) Negative < 300 ng/mL [facility] Opiates Ql (U) Negative < 300 ng/mL [facility] No Panel InformationOrdered By: Dr. Zhou on 05-06-2022 MDMA (Ecstasy) Screen Negative < 500 ng/mL [facility] Miscellaneous Test See comment [facility] Comment on above: [id number] 6+OXYCODONE-B UND (ng/mL) DRUG RESULT SCREEN CUTOFF____ Amphetamines,Urine Negative ng/mL 1000 Amphetamine test includes Amphetamine and Methamphetamine.Barbiturates Negative ng/mL 200Benzodiazepines Negative ng/mL 200Cannabinoid Negative ng/mL 20Cocaine (Metab) Negative ng/mL 300Opiates Negative ng/mL 300 Opiates test includes Codeine, Morphine, Hydromorphone, Hydrocodone. Oxycodone/Oxymorphone,Urine Negative ng/mL 300 Test includes Oxydodone and Oxymorphone. ____ TESTING PERFORMED AT [facility]. ORIGINAL REPORT ON FILE IN LAB CONTAINS ADDITIONAL TEST SITE INFORMATION. ____ Urine Barbiturates Screen Negative < 200 ng/mL [facility] Urine Drug Screen Comment [facility] Comment on above: CONFIRMATORY TESTING FOR [...] Urine Methadone Screen Negative < 300 ng/mL [facility] Urine phencyclidine (PCP) de tectionOrdered By: Dr. Zhou on 05-06-2022 Phencyclidine Ql (U) Negative < 25 ng/mL [facility] STREP A MOLECULAR (POC)on Procedural Control Valid [facility] Strep A (POCT) Positive Abnormal Negative [facility] XR FOOT GENERAL 3V AP/LAT/OB L LEFTon 12-10-2021 [facility] Vital Signs Date Time Vital Sign Value Performing Clinician Facility 12-09-2024 14:06-0400 Body temperature 98.8 [degF] Dr. Susan Sevilla MD Work Phone: [facility] 12-09-2024 14:06-0400 Diastolic blood pressure 75 mm[Hg] Dr. Susan Sevilla MD Work Phone: [facility] 12-09-2024 14:06-0400 Heart rate 87 /min Dr. Susan Sevilla MD Work Phone: [facility] 12-09-2024 14:06-0400 Respiratory rate 18 /min Dr. Susan Sevilla MD Work Phone: [facility] 12-09-2024 14:06-0400 SaO2% (BldA) [Mass fraction] 97 % Dr. Susan Sevilla MD Work Phone: [facility] 12-09-2024 14:06-0400 Systolic blood pressure 140 mm[Hg] Dr. Susan Sevilla MD Work Phone: [facility] 12-09-2024 12:51-0400 Body height 162.[address] Susan Sevilla MD Work Phone: [facility] 12-09-2024 12:51-0400 Body mass index (BMI) [Ratio] 48.2 kg/m2 Dr. Susan Sevilla MD Work Phone: [facility] 12-09-2024 12:51-0400 Body weight 127.[address] Susan Sevilla MD Work Phone: [facility] 11-29-2024 13:41-0400 Body height 162.6 cm Lupe Riddle MD Work Phone: [facility] 11-29-2024 13:41-0400 Body mass index (BMI) [Ratio] 47.92 kg/m2 Lupe Riddle MD Work Phone: [facility] 11-29-2024 13:41-0400 Body weight 126.64 kg Lupe Riddle MD Work Phone: [facility] 11-29-2024 13:41-0400 Diastolic blood pressure 86 mm[Hg] Lupe Riddle MD Work Phone: [facility] 11-29-2024 13:41-0400 Heart rate 103 /min Lupe Riddle MD Work Phone: [facility] 11-29-2024 13:41-0400 Systolic blood pressure 137 mm[Hg] Lupe Riddle MD Work Phone: [facility] 10-04-2024 14:27-0400 Body height 162.6 cm Lupe Riddle MD Work Phone: [facility] 10-04-2024 14:27-0400 Body mass index (BMI) [Ratio] 47.82 kg/m2 Lupe Riddle MD Work Phone: [facility] [employer] 10-04-2024 14:27-0400 Body weight 126.37 kg Lupe Riddle MD Work Phone: [facility] [employer] 10-04-2024 14:27-0400 Diastolic blood pressure 76 mm[Hg] Lupe Riddle MD Work Phone: [facility] [employer] 10-04-2024 14:27-0400 Heart rate 71 /min Lupe Riddle MD Work Phone: [facility] 10-04-2024 14:27-0400 Systolic blood pressure 121 mm[Hg] Lupe Riddle MD Work Phone: [facility] 09-13-2024 14:16-0400 Body height 162.6 cm Lupe Riddle MD Work Phone: [facility] 09-13-2024 14:16-0400 Body mass index (BMI) [Ratio] 46.89 kg/m2 Lupe Riddle MD Work Phone: [facility] 09-13-2024 14:16-0400 Body weight 123.92 kg Lupe Riddle MD Work Phone: [facility] 09-13-2024 14:16-0400 Diastolic blood pressure 89 mm[Hg] Lupe Riddle MD Work Phone: [facility] 09-13-2024 14:16-0400 Heart rate 120 /min Lupe Riddle MD Work Phone: [facility] 09-13-2024 14:16-0400 Systolic blood pressure 118 mm[Hg] Lupe Riddle MD Work Phone: [facility] 09-04-2024 10:30-0400 Body mass index (BMI) [Ratio] 47.2 kg/m2 Neal Gomez DATA SERVICES DEVELOPER.DECISION SCIENCE ANALYST Work Phone: [facility] 09-04-2024 10:30-0400 Body weight 124.74 kg Neal Gomez DATA SERVICES DEVELOPER.DECISION SCIENCE ANALYST Work Phone: [facility] 09-04-2024 10:30-0400 Diastolic blood pressure 90 mm[Hg] Neal Gomez DATA SERVICES DEVELOPER.DECISION SCIENCE ANALYST Work Phone: [facility] 09-04-2024 10:30-0400 Heart rate 68 /min Neal Jason DATA SERVICES DEVELOPER.DECISION SCIENCE ANALYST Work Phone: [facility] 09-04-2024 10:30-0400 Respiratory rate 16 /min Neal Gomez APRN.DECISION SCIENCE ANALYST Work Phone: [facility] 09-04-2024 10:30-0400 SaO2% (BldA) [Mass fraction] 98 % Neal Gomez APRN.DECISION SCIENCE ANALYST Work Phone: [facility] 09-04-2024 10:30-0400 Systolic blood pressure 128 mm[Hg] Neal Gomez APRN.DECISION SCIENCE ANALYST Work Phone: [facility] 08-16-2024 14:59-0400 Body height 162.6 cm Lupe Riddle MD Work Phone: [facility] 08-16-2024 14:59-0400 Body mass index (BMI) [Ratio] 46.96 kg/m2 Lupe Riddle MD Work Phone: [facility] 08-16-2024 14:59-0400 Body weight 124.1 kg Lupe Riddle MD Work Phone: [facility] 08-16-2024 14:59-0400 Diastolic blood pressure 83 mm[Hg] Lupe Riddle MD Work Phone: [facility] 08-16-2024 14:59-0400 Heart rate 83 /min Lupe Riddle MD Work Phone: [facility] 08-16-2024 14:59-0400 Systolic blood pressure 138 mm[Hg] Lupe Riddle MD Work Phone: [facility] 07-14-2024 13:14-0400 Body height 162.6 cm Lupe Riddle MD Work Phone: [facility] 07-14-2024 13:14-0400 Body mass index (BMI) [Ratio] 47.62 kg/m2 Lupe Riddle MD Work Phone: [facility] 07-14-2024 13:14-0400 Body weight 125.83 kg Lupe Riddle MD Work Phone: [facility] 07-14-2024 13:14-0400 Diastolic blood pressure 99 mm[Hg] Lupe Riddle MD Work Phone: [facility] [employer] [facility] 07-14-2024 13:14-0400 Heart rate 71 /min Lupe Riddle MD Work Phone: [facility] 07-14-2024 13:14-0400 Systolic blood pressure 139 mm[Hg] Lupe Riddle MD Work Phone: [facility] 03-14-2024 10:26-0500 Body mass index (BMI) [Ratio] 46.02 kg/m2 Krislyn Aberegg PA Work Phone: [facility] 03-14-2024 10:26-0500 Body temperature 98.1 [degF] Krislyn Aberegg PA Work Phone: [facility] 03-14-2024 10:26-0500 Body weight 121.6 kg Krislyn Aberegg PA Work Phone: [facility] 03-14-2024 10:26-0500 Diastolic blood pressure 76 mm[Hg] Krislyn Aberegg PA Work Phone: [facility] 03-14-2024 10:26-0500 Heart rate 94 /min Krislyn Aberegg PA Work Phone: [facility] 03-14-2024 10:26-0500 Respiratory rate 16 /min Krislyn Aberegg PA Work Phone: [facility] 03-14-2024 10:26-0500 SaO2% (BldA) [Mass fraction] 100 % Krislyn Aberegg PA Work Phone: [facility] 03-14-2024 10:26-0500 Systolic blood pressure 122 mm[Hg] Krislyn Aberegg PA Work Phone: [facility] 03-10-2024 10:31-0500 Diastolic blood pressure 72 mm[Hg] Nate Winters MD Work Phone: [facility] 03-10-2024 10:31-0500 Heart rate 77 /min Nate Winters MD Work Phone: [employer] [facility] 03-10-2024 10:31-0500 Respiratory rate 20 /min Nate Winters MD Work Phone: [facility] [employer] [facility] 03-10-2024 10:31-0500 SaO2% (BldA) [Mass fraction] 99 % Nate Winters MD Work Phone: [facility] [employer] [facility] 03-10-2024 10:31-0500 Systolic blood pressure 121 mm[Hg] Nate Winters MD Work Phone: [facility] [employer] [facility] 03-10-2024 10:11-0500 Body temperature 97.11 [degF] Nate Winters MD Work Phone: [facility] [employer] [facility] 03-10-2024 09:47-0500 Body height 162.6 cm Nate Winters MD Work Phone: [facility] [employer] [facility] 03-10-2024 09:47-0500 Body mass index (BMI) [Ratio] 46.35 kg/m2 Nate Winters MD Work Phone: [facility] [employer] [facility] 03-10-2024 09:47-0500 Body weight 122.47 kg Nate Winters MD Work Phone: [facility] [employer] [facility] 02-11-2024 15:02-0500 Body height 162.6 cm Lupe Riddle MD Work Phone: [employer] [facility] 02-11-2024 15:02-0500 Body mass index (BMI) [Ratio] 46.55 kg/m2 Lupe Riddle MD Work Phone: [employer] [facility] 02-11-2024 15:02-0500 Body weight 123.02 kg Lupe Riddle MD Work Phone: [employer] [facility] 02-11-2024 15:02-0500 Diastolic blood pressure 79 mm[Hg] Lupe Riddle MD Work Phone: [employer] [facility] 02-11-2024 15:02-0500 Heart rate 77 /min Lupe Riddle MD Work Phone: [facility] [employer] [facility] 02-11-2024 15:02-0500 Systolic blood pressure 118 mm[Hg] Lupe Riddle MD Work Phone: [facility] [employer] [facility] 01-04-2024 09:24-0400 Body height 162.6 cm Nate Winters MD Work Phone: [facility] [employer] [facility] 01-04-2024 09:24-0400 Body mass index (BMI) [Ratio] 46.24 kg/m2 Nate Winters MD Work Phone: [facility] [employer] [facility] 01-04-2024 09:24-0400 Body temperature 97 [degF] Nate Winters MD Work Phone: [facility] [employer] [facility] 01-04-2024 09:24-0400 Body weight 122.2 kg Nate Winters MD Work Phone: [facility] [employer] [facility] 01-04-2024 09:24-0400 Diastolic blood pressure 86 mm[Hg] Nate Winters MD Work Phone: [facility] [employer] [facility] 01-04-2024 09:24-0400 Heart rate 78 /min Nate Winters MD Work Phone: [facility] [employer] [facility] 01-04-2024 09:24-0400 Respiratory rate 16 /min Nate Winters MD Work Phone: [facility] [employer] [facility] 01-04-2024 09:24-0400 Systolic blood pressure 138 mm[Hg] Nate Winters MD Work Phone: [facility] 12-03-2023 13:00-0400 Body height 162.6 cm Mary Mcmillan DATA SERVICES DEVELOPER.DECISION SCIENCE ANALYST Work Phone: [facility] 12-03-2023 13:00-0400 Body mass index (BMI) [Ratio] 47.98 kg/m2 Mary Mcmillan DATA SERVICES DEVELOPER.DECISION SCIENCE ANALYST Work Phone: [facility] 12-03-2023 13:00-0400 Body weight 126.8 kg Mary Mcmillan DATA SERVICES DEVELOPER.DECISION SCIENCE ANALYST Work Phone: [facility] 12-03-2023 13:00-0400 Diastolic blood pressure 100 mm[Hg] Mary Tannhof DATA SERVICES DEVELOPER.DECISION SCIENCE ANALYST Work Phone: [facility] 12-03-2023 13:00-0400 Heart rate 88 /min Mary Tannhof DATA SERVICES DEVELOPER.DECISION SCIENCE ANALYST Work Phone: [facility] 12-03-2023 13:00-0400 Respiratory rate 16 /min Mary Tannhof DATA SERVICES DEVELOPER.DECISION SCIENCE ANALYST Work Phone: [facility] 12-03-2023 13:00-0400 SaO2% (BldA) [Mass fraction] 97 % Mary Tannhof DATA SERVICES DEVELOPER.DECISION SCIENCE ANALYST Work Phone: [facility] 12-03-2023 13:00-0400 Systolic blood pressure 142 mm[Hg] Mary Tannhof DATA SERVICES DEVELOPER.DECISION SCIENCE ANALYST Work Phone: [facility] 10-20-2023 12:43-0400 Body mass index (BMI) [Ratio] 45.93 kg/m2 Mary Tannhof DATA SERVICES DEVELOPER.DECISION SCIENCE ANALYST Work Phone: [facility] 10-20-2023 12:43-0400 Body weight 124.29 kg Mary Tannhof DATA SERVICES DEVELOPER.DECISION SCIENCE ANALYST Work Phone: [facility] 10-20-2023 12:43-0400 Diastolic blood pressure 92 mm[Hg] Mary Tannhof DATA SERVICES DEVELOPER.DECISION SCIENCE ANALYST Work Phone: [facility] 10-20-2023 12:43-0400 Heart rate 83 /min Mary Tannhof DATA SERVICES DEVELOPER.DECISION SCIENCE ANALYST Work Phone: [facility] 10-20-2023 12:43-0400 Respiratory rate 16 /min Mary Tannhof DATA SERVICES DEVELOPER.DECISION SCIENCE ANALYST Work Phone: [facility] 10-20-2023 12:43-0400 SaO2% (BldA) [Mass fraction] 97 % Mary Tannhof DATA SERVICES DEVELOPER.DECISION SCIENCE ANALYST Work Phone: [facility] 10-20-2023 12:43-0400 Systolic blood pressure 142 mm[Hg] Mary Tannhof DATA SERVICES DEVELOPER.DECISION SCIENCE ANALYST Work Phone: [facility] 09-28-2023 16:47-0400 Body mass index (BMI) [Ratio] 45.05 kg/m2 Krislyn Aberegg PA Work Phone: [facility] 09-28-2023 16:47-0400 Body temperature 97.39 [degF] Krislyn Aberegg PA Work Phone: [facility] 09-28-2023 16:47-0400 Body weight 121.9 kg Krislyn Aberegg PA Work Phone: [facility] 09-28-2023 16:47-0400 Diastolic blood pressure 82 mm[Hg] Krislyn Aberegg PA Work Phone: [facility] 09-28-2023 16:47-0400 Heart rate 81 /min Krislyn Aberegg PA Work Phone: [facility] 09-28-2023 16:47-0400 Respiratory rate 16 /min Krislyn Aberegg PA Work Phone: [facility] 09-28-2023 16:47-0400 SaO2% (BldA) [Mass fraction] 97 % Krislyn Aberegg PA Work Phone: [facility] 09-28-2023 16:47-0400 Systolic blood pressure 138 mm[Hg] Krislyn Aberegg PA Work Phone: [facility] 09-15-2023 14:28-0400 Body mass index (BMI) [Ratio] 44.93 kg/m2 Mary Mcmillan DATA SERVICES DEVELOPER.DECISION SCIENCE ANALYST Work Phone: [facility] 09-15-2023 14:28-0400 Body temperature 98.2 [degF] Mary Mcmillan DATA SERVICES DEVELOPER.DECISION SCIENCE ANALYST Work Phone: [facility] 09-15-2023 14:28-0400 Body weight 121.56 kg Mary Mcmillan DATA SERVICES DEVELOPER.DECISION SCIENCE ANALYST Work Phone: [facility] 09-15-2023 14:28-0400 Diastolic blood pressure 90 mm[Hg] Mary Tannhof DATA SERVICES DEVELOPER.DECISION SCIENCE ANALYST Work Phone: [facility] 09-15-2023 14:28-0400 Heart rate 82 /min Mary Tannhof DATA SERVICES DEVELOPER.DECISION SCIENCE ANALYST Work Phone: [facility] 09-15-2023 14:28-0400 Respiratory rate 16 /min Mary Tannhof DATA SERVICES DEVELOPER.DECISION SCIENCE ANALYST Work Phone: [facility] 09-15-2023 14:28-0400 SaO2% (BldA) [Mass fraction] 97 % Mary Tannhof DATA SERVICES DEVELOPER.DECISION SCIENCE ANALYST Work Phone: [facility] 09-15-2023 14:28-0400 Systolic blood pressure 118 mm[Hg] Mary Tannhof DATA SERVICES DEVELOPER.DECISION SCIENCE ANALYST Work Phone: [facility] 08-11-2023 09:35-0400 Body mass index (BMI) [Ratio] 43.96 kg/m2 Mary Tannhof DATA SERVICES DEVELOPER.DECISION SCIENCE ANALYST Work Phone: [facility] 08-11-2023 09:35-0400 Body weight 118.93 kg Mary Tannhof DATA SERVICES DEVELOPER.DECISION SCIENCE ANALYST Work Phone: [facility] 08-11-2023 09:35-0400 Diastolic blood pressure 68 mm[Hg] Mary Tannhof DATA SERVICES DEVELOPER.DECISION SCIENCE ANALYST Work Phone: [facility] 08-11-2023 09:35-0400 Heart rate 66 /min Mary Tannhof DATA SERVICES DEVELOPER.DECISION SCIENCE ANALYST Work Phone: [facility] 08-11-2023 09:35-0400 Respiratory rate 16 /min Mary Tannhof DATA SERVICES DEVELOPER.DECISION SCIENCE ANALYST Work Phone: [facility] 08-11-2023 09:35-0400 SaO2% (BldA) [Mass fraction] 95 % Mary Tannhof DATA SERVICES DEVELOPER.DECISION SCIENCE ANALYST Work Phone: [facility] 08-11-2023 09:35-0400 Systolic blood pressure 132 mm[Hg] Mary Tannhof DATA SERVICES DEVELOPER.DECISION SCIENCE ANALYST Work Phone: [facility] 07-23-2023 13:38-0400 Body weight 120.2 kg Mary Tannhof DATA SERVICES DEVELOPER.DECISION SCIENCE ANALYST Work Phone: [facility] 07-23-2023 13:38-0400 Diastolic blood pressure 88 mm[Hg] Mary Tannhof DATA SERVICES DEVELOPER.DECISION SCIENCE ANALYST Work Phone: [facility] 07-23-2023 13:38-0400 Heart rate 55 /min Mary Tannhof DATA SERVICES DEVELOPER.DECISION SCIENCE ANALYST Work Phone: [facility] 07-23-2023 13:38-0400 Respiratory rate 16 /min Mary Tannhof DATA SERVICES DEVELOPER.DECISION SCIENCE ANALYST Work Phone: [facility] 07-23-2023 13:38-0400 SaO2% (BldA) [Mass fraction] 99 % Mary Tannhof DATA SERVICES DEVELOPER.DECISION SCIENCE ANALYST Work Phone: [facility] 07-23-2023 13:38-0400 Systolic blood pressure 124 mm[Hg] Mary Tannhof DATA SERVICES DEVELOPER.DECISION SCIENCE ANALYST Work Phone: [facility] 05-14-2023 09:35-0500 Body weight 121.11 kg Neal Jason DATA SERVICES DEVELOPER.DECISION SCIENCE ANALYST Work Phone: [facility] 05-14-2023 09:35-0500 Diastolic blood pressure 84 mm[Hg] Neal Jason DATA SERVICES DEVELOPER.DECISION SCIENCE ANALYST Work Phone: [facility] 05-14-2023 09:35-0500 Heart rate 58 /min Neal Jason DATA SERVICES DEVELOPER.DECISION SCIENCE ANALYST Work Phone: [facility] 05-14-2023 09:35-0500 SaO2% (BldA) [Mass fraction] 99 % Neal Jason DATA SERVICES DEVELOPER.DECISION SCIENCE ANALYST Work Phone: [facility] 05-14-2023 09:35-0500 Systolic blood pressure 139 mm[Hg] Neal Jason DATA SERVICES DEVELOPER.DECISION SCIENCE ANALYST Work Phone: [facility] 12-21-2022 09:07-0400 Body height 164.[address] [facility] 12-21-2022 09:07-0400 Body weight 119.[address] [facility] 12-09-2022 09:50-0400 Body temperature 97.39 [degF] Timothy Gallegos MD Work Phone: [facility] 12-09-2022 09:50-0400 Body weight 118.21 kg Timothy Gallegos MD Work Phone: [facility] 12-09-2022 09:50-0400 Diastolic blood pressure 78 mm[Hg] Timothy Gallegos MD Work Phone: [facility] 12-09-2022 09:50-0400 Heart rate 66 /min Timothy Gallegos MD Work Phone: [facility] 12-09-2022 09:50-0400 Respiratory rate 18 /min Timothy Gallegos MD Work Phone: [facility] 12-09-2022 09:50-0400 SaO2% (BldA) [Mass fraction] 97 % Timothy Gallegos MD Work Phone: [facility] 12-09-2022 09:50-0400 Systolic blood pressure 122 mm[Hg] Timothy Gallegos MD Work Phone: [facility] 12-04-2022 08:29-0400 Body height 164.5 cm Yuli Hendrix MD Work Phone: [facility] 12-04-2022 08:29-0400 Body weight 116.12 kg Yuli Hendrix MD Work Phone: [facility] 12-04-2022 08:29-0400 Diastolic blood pressure 78 mm[Hg] Yuli Hendrix MD Work Phone: [facility] 12-04-2022 08:29-0400 Systolic blood pressure 130 mm[Hg] Yuli Hendrix MD Work Phone: [facility] 12-02-2022 14:50-0400 Body height 162.3 cm Mary Tannhof DATA SERVICES DEVELOPER.DECISION SCIENCE ANALYST Work Phone: [facility] 12-02-2022 14:50-0400 Body weight 118.39 kg Mary Tannhof DATA SERVICES DEVELOPER.DECISION SCIENCE ANALYST Work Phone: [facility] 12-02-2022 14:50-0400 Diastolic blood pressure 90 mm[Hg] Mary Tannhof DATA SERVICES DEVELOPER.DECISION SCIENCE ANALYST Work Phone: [facility] 12-02-2022 14:50-0400 Heart rate 67 /min Mary Tannhof DATA SERVICES DEVELOPER.DECISION SCIENCE ANALYST Work Phone: [facility] 12-02-2022 14:50-0400 Respiratory rate 16 /min Mary Tannhof DATA SERVICES DEVELOPER.DECISION SCIENCE ANALYST Work Phone: [facility] 12-02-2022 14:50-0400 SaO2% (BldA) [Mass fraction] 96 % Mary Tannhof DATA SERVICES DEVELOPER.DECISION SCIENCE ANALYST Work Phone: [facility] 12-02-2022 14:50-0400 Systolic blood pressure 140 mm[Hg] Mary Tannhof DATA SERVICES DEVELOPER.DECISION SCIENCE ANALYST Work Phone: [facility] 07-31-2022 09:07-0400 Body weight 112.95 kg Mary Tannhof DATA SERVICES DEVELOPER.DECISION SCIENCE ANALYST Work Phone: [facility] 07-31-2022 09:07-0400 Diastolic blood pressure 90 mm[Hg] Mary Tannhof DATA SERVICES DEVELOPER.DECISION SCIENCE ANALYST Work Phone: [facility] 07-31-2022 09:07-0400 Heart rate 70 /min Mary Tannhof DATA SERVICES DEVELOPER.DECISION SCIENCE ANALYST Work Phone: [facility] 07-31-2022 09:07-0400 Respiratory rate 16 /min Mary Tannhof DATA SERVICES DEVELOPER.DECISION SCIENCE ANALYST Work Phone: [facility] 07-31-2022 09:07-0400 SaO2% (BldA) [Mass fraction] 97 % Mary Tannhof DATA SERVICES DEVELOPER.DECISION SCIENCE ANALYST Work Phone: [facility] 07-31-2022 09:07-0400 Systolic blood pressure 140 mm[Hg] Mary Mcmillan DATA SERVICES DEVELOPER.DECISION SCIENCE ANALYST Work Phone: [facility] 07-30-2022 09:59-0400 Body temperature 97.11 [degF] Janki Hinds DATA SERVICES DEVELOPER.DECISION SCIENCE ANALYST Work Phone: [facility] 07-30-2022 09:59-0400 Body weight 112.4 kg Janki Guzman DATA SERVICES DEVELOPER.DECISION SCIENCE ANALYST Work Phone: [facility] 07-30-2022 09:59-0400 Diastolic blood pressure 92 mm[Hg] Janki Guzman DATA SERVICES DEVELOPER.DECISION SCIENCE ANALYST Work Phone: [facility] 07-30-2022 09:59-0400 Heart rate 73 /min Janki Moonk DATA SERVICES DEVELOPER.DECISION SCIENCE ANALYST Work Phone: [facility] 07-30-2022 09:59-0400 Respiratory rate 18 /min Janki Moonk DATA SERVICES DEVELOPER.DECISION SCIENCE ANALYST Work Phone: [facility] 07-30-2022 09:59-0400 SaO2% (BldA) [Mass fraction] 99 % Janki Guzman DATA SERVICES DEVELOPER.DECISION SCIENCE ANALYST Work Phone: [facility] 07-30-2022 09:59-0400 Systolic blood pressure 124 mm[Hg] Janki Guzman DATA SERVICES DEVELOPER.DECISION SCIENCE ANALYST Work Phone: [facility] 06-09-2022 13:49-0500 Body temperature 97.9 [degF] Dr. Susan Sevilla Work Phone: [facility] 06-09-2022 13:49-0500 Diastolic blood pressure 82 mm[Hg] Dr. Susan Sevilla Work Phone: [facility] 06-09-2022 13:49-0500 Heart rate 59 /min Dr. Susan Sevilla Work Phone: [facility] 06-09-2022 13:49-0500 Respiratory rate 14 /min Dr. Susan Sevilla Work Phone: [facility] 06-09-2022 13:49-0500 SaO2% (BldA) [Mass fraction] 98 % Dr. Susan Sevilla Work Phone: [facility] 06-09-2022 13:49-0500 Systolic blood pressure 118 mm[Hg] Dr. Susan Sevilla Work Phone: 8(495)[phone] [address] 06-09-2022 06:38-0500 Body height 162.[address] Susan Sevilla Work Phone: 1(594)474-651142 [place] [address] 06-09-2022 06:38-0500 Body mass index (BMI) [Ratio] 41.8 kg/m2 Dr. Susan Sevilla Work Phone: 6(619)[phone] [address] 06-09-2022 06:38-0500 Body weight 110.[address] Susan Sevilla Work Phone: 1(950)[phone] [address] 05-12-2022 14:32-0500 Body height 162.[address] Susan Sevilla Work Phone: 5(109)667-538415 [address] 05-12-2022 14:32-0500 Body mass index (BMI) [Ratio] 42.7 kg/m2 Dr. Susan Sevilla Work Phone: 0(581)[phone] [address] 05-12-2022 14:32-0500 Body temperature 98 [degF] Dr. Susan Sevilla Work Phone: 7(145)[phone] [address] 05-12-2022 14:32-0500 Body weight 113.[address] Susan Sevilla Work Phone: 2(474)[phone] [place] [address] 05-12-2022 14:32-0500 Diastolic blood pressure 84 mm[Hg] Dr. Susan Sevilla Work Phone: 7(302)037-607715 [address] 05-12-2022 14:32-0500 Heart rate 68 /min Dr. Susan Sevilla Work Phone: 2(094)[phone] [place] [address] 05-12-2022 14:32-0500 Respiratory rate 17 /min Dr. Susan Sevilla Work Phone: [facility] 05-12-2022 14:32-0500 SaO2% (BldA) [Mass fraction] 98 % Dr. Susan Sevilla Work Phone: [facility] 05-12-2022 14:32-0500 Systolic blood pressure 132 mm[Hg] Dr. Susan Sevilla Work Phone: [facility] 03-18-2022 09:20-0500 Body temperature 96.69 [degF] Gabbie Athy PA-C Work Phone: [facility] 03-18-2022 09:20-0500 Body weight 108.77 kg Gabbie Athy PA-C Work Phone: [facility] 03-18-2022 09:20-0500 Diastolic blood pressure 84 mm[Hg] Gabbie Athy PA-C Work Phone: [facility] 03-18-2022 09:20-0500 Heart rate 72 /min Gabbie Athy PA-C Work Phone: [facility] 03-18-2022 09:20-0500 Respiratory rate 21 /min Gabbie Athy PA-C Work Phone: [facility] 03-18-2022 09:20-0500 SaO2% (BldA) [Mass fraction] 99 % Gabbie Athy PA-C Work Phone: [facility] 03-18-2022 09:20-0500 Systolic blood pressure 150 mm[Hg] Gabbie Athy PA-C Work Phone: [facility] 03-11-2022 10:25-0500 Body temperature 98.8 [degF] Janki Guzman DATA SERVICES DEVELOPER.DECISION SCIENCE ANALYST Work Phone: [facility] 03-11-2022 10:25-0500 Body weight 107.86 kg Janki Guzman DATA SERVICES DEVELOPER.DECISION SCIENCE ANALYST Work Phone: [facility] 03-11-2022 10:25-0500 Diastolic blood pressure 82 mm[Hg] Janki Guzman DATA SERVICES DEVELOPER.DECISION SCIENCE ANALYST Work Phone: [facility] 03-11-2022 10:25-0500 Heart rate 103 /min Janki Guzman DATA SERVICES DEVELOPER.DECISION SCIENCE ANALYST Work Phone: [facility] 03-11-2022 10:25-0500 Respiratory rate 21 /min Janki Hinds DATA SERVICES DEVELOPER.DECISION SCIENCE ANALYST Work Phone: [facility] 03-11-2022 10:25-0500 SaO2% (BldA) [Mass fraction] 98 % Janki Hinds DATA SERVICES DEVELOPER.DECISION SCIENCE ANALYST Work Phone: [facility] 03-11-2022 10:25-0500 Systolic blood pressure 138 mm[Hg] Janki Hinds DATA SERVICES DEVELOPER.DECISION SCIENCE ANALYST Work Phone: [facility] 11-12-2021 22:06-0400 Body height 162.56 cm [facility] Work Phone: 11-12-2021 22:06-0400 Body mass index (BMI) [Ratio] 41.9 kg/m2 [facility] Work Phone: 11-12-2021 22:06-0400 Body temperature 97.3 [degF] [facility] Work Phone: 11-12-2021 22:06-0400 Body weight 110.9 kg [facility] Work Phone: 11-12-2021 22:06-0400 Diastolic blood pressure 62 mm[Hg] [facility] Work Phone: 11-12-2021 22:06-0400 Heart rate 64 /min [facility] Work Phone: 11-12-2021 22:06-0400 Respiratory rate 14 /min [facility] Work Phone: 11-12-2021 22:06-0400 SaO2% (BldA) [Mass fraction] 100 % [facility] Work Phone: 11-12-2021 22:06-0400 Systolic blood pressure 132 mm[Hg] [facility] Work Phone: 09-26-2021 13:47-0400 Body temperature 97.5 [degF] [facility] Work Phone: 09-26-2021 13:47-0400 Diastolic blood pressure 73 mm[Hg] [facility] Work Phone: 09-26-2021 13:47-0400 Heart rate 55 /min [facility] Work Phone: 09-26-2021 13:47-0400 Respiratory rate 16 /min [facility] Work Phone: 09-26-2021 13:47-0400 SaO2% (BldA) [Mass fraction] 98 % [facility] Work Phone: 09-26-2021 13:47-0400 Systolic blood pressure 119 mm[Hg] [facility] Work Phone: 09-26-2021 12:37-0400 Body mass index (BMI) [Ratio] 43.2 kg/m2 [facility] Work Phone: 09-26-2021 12:37-0400 Body weight 114.3 kg [facility] Work Phone: 07-04-2021 08:55-0400 Body temperature 97.6 [degF] [facility] Work Phone: 07-04-2021 08:55-0400 Diastolic blood pressure 66 mm[Hg] [facility] Work Phone: 07-04-2021 08:55-0400 Heart rate 55 /min [facility] Work Phone: 07-04-2021 08:55-0400 Respiratory rate 14 /min [facility] Work Phone: 07-04-2021 08:55-0400 SaO2% (BldA) [Mass fraction] 97 % [facility] Work Phone: 07-04-2021 08:55-0400 Systolic blood pressure 125 mm[Hg] [facility] Work Phone: 07-04-2021 06:53-0400 Body height 162.56 cm [facility] Work Phone: 07-04-2021 06:53-0400 Body mass index (BMI) [Ratio] 43.9 kg/m2 [facility] Work Phone: 07-04-2021 06:53-0400 Body weight 116.2 kg [facility] Work Phone: Encounters Encounter Date Encounter Type Care Provider Facility Start: 12-11-2024 End: 12-11-2024 Telephone encounter Susan Sevilla MD Work Phone: [facility] Medicine [place] Comment on above: Patient Update Start: 12-09-2024 End: 12-09-2024 Emergency department patient visit Dr. Susan Sevilla MD Work Phone: -Emergency Department Work Phone: Start: 11-29-2024 End: 11-29-2024 Office outpatient visit 15 minutes Serenity Del Valle APRN [facility] Work Phone: [facility] [employer] Management - [place] Comment on above: Primary hypertension (Primary Dx); BMI 45.0-49.9, adult (HCC); Class 3 severe obesity with serious comorbidity and body mass index (BMI) of 45.0 to 49.9 in adult, unspecified obesity type Start: 11-29-2024 End: 11-29-2024 [facility] Start: 11-21-2024 End: 11-21-2024 ambulatory SUSAN SEVILLA Facility:[facility] Start: 11-15-2024 End: 11-15-2024 Telephone encounter Lupe Riddle MD Work Phone: [employer] [place] Comment on above: Appointment (Missed appointment) Start: 10-04-2024 End: 10-04-2024 [facility] Start: 10-04-2024 End: 10-04-2024 Office outpatient visit 15 minutes Lupe Riddle MD Work Phone: [employer] - [place] Comment on above: Primary hypertension (Primary Dx); BMI 45.0-49.9, adult (HCC); Class 3 severe obesity with serious comorbidity and body mass index (BMI) of 45.0 to 49.9 in adult, unspecified obesity type Start: 09-13-2024 End: 09-13-2024 Office outpatient visit 15 minutes Lupe Riddle MD Work Phone: [facility] [employer] Management [place] Comment on above: Primary hypertension (Primary Dx); BMI 45.0-49.9, adult (HCC); Class 3 severe obesity with serious comorbidity and body mass index (BMI) of 45.0 to 49.9 in adult, unspecified obesity type Start: 09-13-2024 End: 09-13-2024 ambulatory [facility] Start: 09-04-2024 End: 09-04-2024 Office outpatient visit 15 minutes Neal Jason DATA SERVICES DEVELOPER.DECISION SCIENCE ANALYST Work Phone: [facility] [place] Comment on above: Localized bacterial skin infection (Primary Dx) Start: 09-04-2024 End: 09-04-2024 ambulatory NEAL JASON Facility:[facility] Start: 08-28-2024 End: 08-29-2024 Refill Neal Jason DATA SERVICES DEVELOPER.DECISION SCIENCE ANALYST Work Phone: Family Medicine [place] Comment on above: Refill Request Start: 08-16-2024 End: 08-16-2024 ambulatory [facility] Start: 08-16-2024 End: 08-16-2024 Office outpatient visit 15 minutes Lupe Riddle MD Work Phone: [facility] [employer] Management [place] Comment on above: Primary hypertension (Primary Dx); BMI 45.0-49.9, adult (HCC); Class 3 severe obesity with serious comorbidity and body mass index (BMI) of 45.0 to 49.9 in adult, unspecified obesity type Start: 07-14-2024 End: 07-14-2024 Office outpatient visit 25 minutes Lupe Riddle MD Work Phone: [facility] [employer] Management [place] Comment on above: Primary hypertension (Primary Dx); BMI 45.0-49.9, adult (HCC); Class 3 severe obesity with serious comorbidity and body mass index (BMI) of 45.0 to 49.9 in adult, unspecified obesity type (HCC) Start: 07-14-2024 End: 07-14-2024 [facility] Start: 05-24-2024 End: 05-25-2024 Refill Mary Mcmillan APRN.DECISION SCIENCE ANALYST Work Phone: [facility] [place] Comment on above: Refill Request Start: 05-11-2024 ambulatory Susan Baileysaint paul Facilit y:[facility] Start: 03-14-2024 End: 03-14-2024 Subsequent hospital visit by physician Nohemy [facility] [place] Work Phone: Radiology Comment on above: Acute cough [R05.1] Start: 03-14-2024 End: 03-14-2024 ambulatory SUSAN Underwood [facility] Facility:[facility] Start: 03-14-2024 End: 03-14-2024 Office outpatient visit 25 minutes John FORREST [facility] Comment on above: Sore throat (Primary Dx); Acute cough; SOB (shortness of breath) Start: 03-10-2024 End: 03-10-2024 ambulatory NATE WINTERS [facility] Start: 03-10-2024 End: 03-10-2024 Subsequent hospital visit by physician Nate Winters MD Work Phone: [facility] Endoscopy Comment on above: Gastro-esophageal re flux disease without esophagitis Start: 02-21-2024 End: 02-22-2024 ambulatory Mary Vaz APRN - DECISION SCIENCE ANALYST Work Phone: [facility] [employer] Weight Management - [place] Comment on above: Refill Request Start: 02-11-2024 End: 02-11-2024 [facility] Start: 02-11-2024 End: 02-11-2024 Office outpatient new 45 minutes Lupe Riddle MD Work Phone: [facility] [employer] Weight Management - [place] Comment on above: Primary hypertension (Primary Dx); BMI 45.0-49.9, adult (HCC); Class 3 severe obesity with serious comorbidity and body mass index (BMI) of 45.0 to 49.9 in adult, unspecified obesity type (HCC) Start: 01-25-2024 End: 01-26-2024 Refill Mary Mcmillan APRN.CNP Work Phone: Family Medicine [place] Comment on above: Refill Request Start: 01-14-2024 End: 01-14-2024 Documentation procedure Mary Vaz APRN - DECISION SCIENCE ANALYST Work Phone: [facility] Weight Management [place] Comment on above: EGD Start: 01-12-2024 End: 01-17-2024 ambulatory Susan Sevilla MD Work Phone: Internal Medicine [facility] Start: 01-10-2024 End: 01-10-2024 ambulatory Nurse Card Admin [facility] Work Phone: Cardiology Comment on above: Stress Test Instruct ions for 01/17/24 Start: 01-10-2024 End: 01-10-2024 E-mail encounter from caregiver Nurse Card Admin [facility] Work Phone: Cardiology Start: 01-04-2024 End: 01-04-2024 Telephone encounter Mary Vaz APRN - DECISION SCIENCE ANALYST Work Phone: [facility] [employer] Management - [place] Comment on above: Financial Issues (Fi nancial File 2023); Surgery Scheduling (Initial Scheduling - Orders Pended ) Start: 01-04-2024 End: 01-04-2024 Office outpatient new 45 minutes Nate Winters MD Work Phone: [facility] Weight Management [place] Comment on above: Primary osteoarthrit is of both knees (Primary Dx); Gastroesophageal reflux disease without esophagitis; Daytime sleepiness; Primary hypertension; Back pain, unspecified back location, unspecified back pain laterality, unspecified chronicity; Morbid obesity with BMI of 45.0-49.9, adult (HCC) Start: 01-04-2024 End: 01-04-2024 ambulatory NATE WINTERS [facility] Start: 12-23-2023 End: 12-23-2023 ambulatory Kaushik [facility] Facility:[facility] Start: 12-13-2023 End: 12-13-2023 ambulatory OKSANA KENNEY Facility:[facility] Start: 12-13-2023 End: 12-13-2023 Patient encounter procedure Oksana Carlisleviky SUERO Work Phone: Orthopaedics Comment on above: Primary osteoarthrit is of both knees (Primary Dx); Morbid obesity (HCC); Acute pain of right knee Start: 12-10-2023 End: 12-10-2023 Chart abstracting Alvin HOROTN Work Phone: Adult Psychology Comment on above: Behavioral Health/So cial Work Start: 12-03-2023 End: 12-03-2023 E-mail encounter from caregiver Oksana Carlisleviky SUERO Work Phone: Orthopaedics Start: 12-03-2023 End: 12-03-2023 Telephone encounter Alvin HORTON Work Phone: Adult Psychology Comment on above: Behavioral Health/So cial Work Insurance Authorizat ion Start: 12-03-2023 End: 12-03-2023 Patient encounter status Mary Mcmillan APRN.DECISION SCIENCE ANALYST Work Phone: [facility] Work Phone: Start: 12-03-2023 End: 12-03-2023 ambulatory MARY MCMILLAN Facility:[facility] Start: 12-03-2023 Encounter for genera l adult medical examination without abnormal findings MARY MCMILLAN [facility] Start: 12-03-2023 End: 12-03-2023 Patient encounter procedure Mary Mcmillan APRN.DECISION SCIENCE ANALYST Work Phone: Family Medicine [place] Comment on above: Wellness examination (Primary Dx); [...] annual routine gynecological examination Appointment Request Start: 10-27-2023 Telephone encounter Mary barkley APRN.CNP Work Phone: [facility] [place] Comment on above: Results (Chest CT) Start: 10-25-2023 End: 10-25-2023 Subsequent hospital visit by physician [facility] (I-Stat) Work Phone: Cat Scan Comment on above: Chronic cough [R05.3 ] Start: 10-21-2023 Telephone encounter Mary barkley APRN.CNP Work Phone: [facility] [place] Comment on above: Results (Lab/Xray ); Orders Start: 10-20-2023 End: 10-20-2023 Patient encounter procedure Mary Mcmillan APRN.CNP Work Phone: [facility] [place] Comment on above: URI, acute (Primary Dx); [...] 10-20-2023 Subsequent hospital visit by physician Xr [facility] [place] Work Phone: Radiology Comment on above: Acute cough [R05.1] Start: 10-16-2023 Refill Mary Mcmillan APRN.CNP Work Phone: [facility] [place] Comment on above: Refill Request Start: 10-14-2023 Telephone encounter Mary barkley APRN.CNP Work Phone: [facility] [place] Comment on above: Results (Zio ); Orde rs Start: 09-28-2023 End: 09-28-2023 Patient encounter procedure John FORREST Work Phone: [place] [facility] Comment on above: Bacterial sinusitis (Primary Dx); Sore throat Start: 09-18-2023 ambulatory Mary Mcmillan APRN.CNP Work Phone: [facility] Comment on above: Zio monitor Start: 09-15-2023 End: 09-15-2023 Patient encounter procedure Mary Mcmillan APRN.NORI Work Phone: [facility] [place] Comment on above: BPPV (benign paroxys mal positional vertigo), unspecified laterality (Primary Dx); Dizziness; Bradycardia; Sore throat; Weight gain; Anxiety associated with depression Start: 09-14-2023 Telephone encounter Mary barkley APRN.NORI Work Phone: [facility] [place] Comment on above: Patient Question Start: 09-02-2023 ambulatory Mary Mcmillan APRN.NORI Work Phone: [facility] [place] Comment on above: Pulse Start: 08-11-2023 End: 08-11-2023 Patient encounter procedure Mary Mcmillan APRN.NORI Work Phone: [facility] [place] Comment on above: Dizziness (Primary D x); Anxiety associated with depression; Ventricular hypertrophy Start: 07-29-2023 Telephone encounter Susan patel MD Work Phone: [facility] [place] Comment on above: Prior Authorization Request ([employer]ep[employer]) Start: 07-28-2023 Telephone encounter Mary barkley APRN.NORI Work Phone: [facility] [place] Comment on above: Results (Labs ) Start: 07-23-2023 End: 07-23-2023 Subsequent hospital visit by physician Nohemy [facility] [place] Work Phone: Radiology Comment on above: SOB (shortness of br eath) [R06.02] Start: 07-23-2023 Refill Oksana aragon PA-C Work Phone: Orthopaedics Comment on above: Refill Request Start: 07-23-2023 End: 07-23-2023 Patient encounter procedure Mary Mcmillan APRN.CNP Work Phone: [facility] Comment on above: SOB (shortness of br eath) (Primary Dx); Dizziness; Class 3 severe obesity with body mass index (BMI) of 40.0 to 44.9 in adult, unspecified obesity type, unspecified whether serious comorbidity present (HCC); Vitamin D deficiency Start: 07-20-2023 Telephone encounter Susan patel MD Work Phone: Family [facility] [place] Comment on above: Patient Question Start: 06-29-2023 ambulatory SUSAN Neff ity:[facility] Start: 06-29-2023 End: 06-29-2023 Subsequent hospital visit by physician [facility] Work Phone: Radiology Comment on above: Right knee pain, uns pecified chronicity [M25.561] Start: 06-27-2023 Refill Mary Mcmillan APRN.DECISION SCIENCE ANALYST Work Phone: [facility] [place] Comment on above: Refill Request Start: 06-09-2023 Orders Only Oksana Vetovit z PA-C Work Phone: Orthopaedics Comment on above: Right knee pain, uns pecified chronicity (Primary Dx) Start: 06-06-2023 Refill Oksana Vetovit z PA-C Work Phone: Orthopaedics Comment on above: Refill Request Start: 05-27-2023 Telephone encounter Neal rose APRN.CNP Work Phone: Family Medicine [place] Comment on above: Results Start: 05-17-2023 Telephone encounter Neal rose APRN.CNP Work Phone: Family Medicine [place] Comment on above: Results Start: 05-14-2023 End: 05-14-2023 Subsequent hospital visit by physician Nohemy [facility] [place] Work Phone: Radiology Comment on above: Cervicalgia [M54.2] Start: 05-14-2023 End: 05-14-2023 Office outpatient visit 25 minutes Neal Gomez APRN.DECISION SCIENCE ANALYST Work Phone: Family [facility] [place] Comment on above: Cervicalgia (Primary Dx); Headache, unspecified headache type Start: 05-13-2023 Telephone encounter Susan patel MD Work Phone: [facility] Comment on above: Patient Update; Appo intment Start: 03-01-2023 Telephone encounter Susan patel MD Work Phone: [facility] [place] Comment on above: Medication Question Start: 02-28-2023 Refill Neal LANDA RN.DECISION SCIENCE ANALYST Work Phone: [facility] [place] Comment on above: Refill Request Start: 02-19-2023 End: 02-19-2023 ambulatory Ronak Pulido Work Phone: Podiatry Comment on above: Arthritis of midfoot (Primary Dx); Pain in left foot Start: 02-19-2023 End: 02-19-2023 Telemedicine consultation with patient Ronak Pulido Work Phone: [facility] Start: 02-16-2023 Telephone encounter Mary barkley DATA SERVICES DEVELOPER.DECISION SCIENCE ANALYST Work Phone: [facility] [place] Comment on above: Request Outside Medi [facility] Records Start: 02-06-2023 Orders Only Ronak melchor Work Phone: Podiatry Comment on above: Vitamin D deficiency (Primary Dx) Start: 02-02-2023 ambulatory Ronak melchor Work Phone: Podiatry Comment on above: Vitamin d levels Start: 12-29-2022 Refill Susan solorzano MD Work Phone: [facility] [place] Comment on above: Refill Request Start: 12-25-2022 ambulatory Mary Mcmillan APRN.DECISION SCIENCE ANALYST Work Phone: [facility] [place] Start: 12-25-2022 Nutrition therapy Mary Briceño DATA SERVICES DEVELOPER.DECISION SCIENCE ANALYST Work Phone: [facility] [place] Comment on above: Hogshead [employer] Start: 12-25-2022 End: 12-25-2022 Subsequent hospital visit by physician Nohemy [facility] [place] Work Phone: Radiology Comment on above: Bronchitis [J40] Start: 12-21-2022 End: 12-21-[address] Nutrition Therapy Comment on above: Patient Education; A ssessment Start: 12-09-2022 End: 12-09-2022 Patient encounter procedure Timothy Gallegos MD Work Phone: [place] [facility] Comment on above: URI, acute (Primary Dx); Exposure to confirmed case of COVID-19 Start: 12-08-2022 Documentation procedure Mammography Coordinator [facility] Start: 12-08-2022 Letter encounter Mammography Coordin ator [facility] Department Start: 12-08-2022 End: 12-08-2022 Subsequent hospital visit by physician Screen Mammo [facility] Comment on above: Encounter for screen ing mammogram for breast cancer [Z12.31] Start: 12-04-2022 End: 12-04-2022 Patient encounter procedure Yuli Hendrix MD Work Phone: OB/Gynecology Comment on above: Encounter for gyneco logical examination (general) (routine) without abnormal findings (Primary Dx); Women's annual routine gynecological examination; Screen for STD (sexually transmitted disease); Encounter for screening mammogram for breast cancer Start: 12-04-2022 End: 12-04-2022 Patient encounter status Yuli Hendrix MD Work Phone: [facility] Start: 12-02-2022 End: 12-02-2022 Patient encounter procedure Mary Mcmillan APRN.CNP Work Phone: [facility] [place] Comment on above: Wellness examination (Primary Dx); Gastroesophageal reflux disease, unspecified whether esophagitis present; Anxiety associated with depression; Hypertension, essential; Migraine with aura, not intractable, without status migrainosus; Weight gain; Muscle strain; Women's annual routine gynecological examination Start: 12-02-2022 End: 12-02-2022 Patient encounter status Mary Mcmillan APRN.CNP Work Phone: [facility] Work Phone: Start: 11-30-2022 Refill Mary Mcmillan APRN.CNP Work Phone: [facility] [place] Comment on above: Refill Request Start: 11-09-2022 Orders Only Ronak melchor Work Phone: Podiatry Comment on above: Vitamin D deficiency (Primary Dx) Start: 11-05-2022 Orders Only Ronak Cristobal melchor Work Phone: Podiatry Comment on above: Vitamin D deficiency (Primary Dx) vitamin d Start: 11-04-2022 End: 11-04-2022 Subsequent hospital visit by physician Xr [facility] [employer] Work Phone: Radiology Comment on above: Arthritis of midfoot [M19.079] Start: 10-19-2022 End: 10-19-2022 Subsequent hospital visit by physician [facility] (I-Stat) Work Phone: Cat Scan Comment on above: Arthritis of midfoot [M19.079] Start: 10-19-2022 End: 10-19-2022 Patient encounter procedure Ray Frazier MD Work Phone: Orthopaedics Comment on above: Trochanteric bursiti s of left hip (Primary Dx) Start: 10-19-2022 End: 10-19-2022 Subsequent hospital visit by physician Xr [facility] [employer] Work Phone: Radiology Comment on above: Pain in left hip [M2 5.552] Start: 10-16-2022 Orders Only Ray Frazier MD Work Phone: Orthopaedics Comment on above: Right knee pain, uns pecified chronicity (Primary Dx); Pain in left hip Start: 10-08-2022 Telephone encounter Ronak Vasquez Work Phone: Podiatry Comment on above: Orders Start: 10-05-2022 ambulatory Ronak Proctorra melchor Work Phone: Podiatry Comment on above: Left foot pain Start: 09-14-2022 End: 09-14-2022 Subsequent hospital visit by physician Xr [facility] [employer] Work Phone: Radiology Comment on above: Contusion of lesser toe of left foot without damage to nail, initial encounter [S90.122A] Start: 08-14-2022 Telephone encounter Ronak Vasquez Work Phone: Podiatry Comment on above: Appointment (Needs s ooner appointment) Start: 07-31-2022 End: 07-31-2022 Patient encounter procedure Mary Mcmillan APRN.DECISION SCIENCE ANALYST Work Phone: [facility] Comment on above: Acute constipation ( Primary Dx); Generalized abdominal pain; Migraine with aura, not intractable, without status migrainosus Start: 07-30-2022 End: 07-30-2022 Patient encounter procedure Janki Hinds FELICIA.DECISION SCIENCE ANALYST Work Phone: [facility] Comment on above: Diarrhea, unspecifie d type (Primary Dx); Abdominal pain, generalized Start: 06-09-2022 End: 06-09-2022 Admission to same day surgery center Dr[facility] Start: 06-09-2022 End: 06-09-[address] Susan Sevilla Work Phone: [facility] Work Phone: Start: 06-08-2022 Non-patient / Non-visit Dr. Inga Sevilla Work Phone: [facility] Start: 05-15-2022 End: 05-15-[address] Susan Sevilla Work Phone: [facility] Orthopaedic Specia Start: 05-12-2022 End: 05-12-[address] Susan Sevilla Work Phone: [facility]astic [facility] Start: 05-06-2022 End: 05-06-[address] Susan Sevilla Work Phone: [facility] Work Phone: Start: 05-06-2022 End: 05-06-[address] Susan Sevilla Work Phone: [facility]-Laboratory Start: 03-23-2022 Telephone encounter Susan patel MD Work Phone: [facility] Comment on above: Patient Question Start: 03-18-2022 End: 03-18-2022 Patient encounter procedure Gabbie Horvath PA-C Work Phone: [place] [facility] Comment on above: Strep pharyngitis (P rimary Dx); Bronchitis Start: 03-11-2022 End: 03-11-2022 Patient encounter procedure Janki Guzman ROCKWELLDECISION SCIENCE ANALYST Work Phone: [place] [facility] Comment on above: Exposure to COVID-19 virus (Primary Dx); URI with cough and congestion Start: 12-22-2021 Refill Susan solorzano MD Work Phone: [facility] Comment on above: Refill Request Start: 12-11-2021 Orders Only Ronak Cristobal melchor Work Phone: Podiatry Comment on above: Contusion of lesser toe of left foot without damage to nail, initial encounter (Primary Dx) Start: 12-10-2021 End: 12-10-2021 Subsequent hospital visit by physician Xr [facility] Work Phone: Radiology Comment on above: Contusion of lesser toe of left foot without damage to nail, initial encounter [S90.122A] Start: 11-12-2021 End: 11-13-2021 Emergency department patient visit [facility]Emergency Department Start: 10-04-2021 ambulatory Mary Mcmillan APRN.DECISION SCIENCE ANALYST Work Phone: [facility] Comment on above: Dosage Start: 10-01-2021 ambulatory Susan solorzano MD Work Phone: Internal Medicine [facility] [place] Start: 09-26-2021 End: 09-26-2021 Admission to same day surgery center [facility] Start: 09-25-2021 ambulatory Mary Mcmillan APRN.CNP Work Phone: [facility] Comment on above: Cream for heat rash Start: 09-18-2021 Telephone encounter Mary barkley APRN.DECISION SCIENCE ANALYST Work Phone: [facility] Comment on above: Results Start: 08-09-2021 End: 08-09-2021 Patient encounter procedure [facility] Start: 07-04-2021 End: 07-04-2021 Admission to same day surgery center [facility] Procedures Date Procedure Procedure Detail Performing Clinician Start: 11-21-2024 Lipid 1996 panel - S livan or Plasma Susan Sevilla MD Work Phone: Start: 03-14-2024 Radiologic exam ches t 2 views John FORREST Work Phone: Start: 03-14-2024 STREP A MOLECULAR (POC) John FORREST Work Phone: Start: 12-13-2023 Arthrocentesis aspir &/inj major jt/bursa w/o us Oksana Kenney PA-C Work Phone: Start: 10-25-2023 Ct thorax w/contrast material Mary Mcmillan APRN.CNP Work Phone: Start: 10-20-2023 Radiologic exam ches t 2 views Mary Mcmillan APRN.DECISION SCIENCE ANALYST Work Phone: Start: 09-28-2023 STREP A MOLECULAR (POC) John FORREST Work Phone: Start: 09-15-2023 STREP A MOLECULAR (POC) Mary Mcmillan APRN.CNP Work Phone: Start: 07-23-2023 Radiologic exam ches t 2 views Mary Mcmillan APRN.DECISION SCIENCE ANALYST Work Phone: Start: 07-23-2023 Ecg routine ecg w/le ast 12 lds i&r only [facility] Provider Start: 06-29-2023 Radiologic exam knee complete 4/more views Oksana Kenney PA-C Work Phone: Start: 05-14-2023 Radex spine cervical 4 or 5 views Neal Gomez DATA SERVICES DEVELOPER.DECISION SCIENCE ANALYST Work Phone: Start: 12-25-2022 Radiologic exam ches t 2 views Gabbie Horvath PA-C Work Phone: Start: 12-08-2022 End: 12-08-2022 Mammography Yuli hauser MD Work Phone: Start: 11-04-2022 Radex foot complete minimum 3 views Ronka Tess Work Phone: Start: 10-19-2022 Ct lower extremity w /o contrast material Ronakshy Pulido Work Phone: Start: 10-19-2022 Radex hip unilateral with pelvis 2-3 views Ray Frazier MD Work Phone: Start: 09-14-2022 Radex foot complete minimum 3 views Ronakshy Pulido Work Phone: Start: 06-09-2022 Excision, Lesion,Ski n w/ Skin Flap (Not Applicable) Dr. Susan Sevilla Work Phone: Start: 03-18-2022 STREP A MOLECULAR (POC) Jana Robertson APRN.DECISION SCIENCE ANALYST Work Phone: Start: 12-10-2021 Radex foot complete [...] Mob Work Phone: Start: 02-12-2016 Mammography Mary gamezof DATA SERVICES DEVELOPER.DECISION SCIENCE ANALYST Work Phone: Plan of Treatment Date Care Activity Detail Author Start: 2049 RSV Immunization for Adults (1 - 1-dose 75+ series) RSV Immunization for Adults (1 - 1-dose 75+ series) [facility] Start: 2034 RSV Immunization aged 60 or older (1 - 1-dose 60+ series) RSV Immunization aged 60 or older (1 - 1-dose 60+ series) [facility] Start: 11-21-2029 Lipid panel Lipid Screening [facility] Start: 05-09-2029 Colonoscopy COLONOSCOPY [facility] Start: 05-09-2029 COLORECTAL CANCER SCREENING COLORECTAL CANCER SCREENING [facility] Start: 05-09-2029 Screening for malignant neoplasm of colon [facility] Start: 11-22-2027 Diabetes Screening Diabetes Screening [facility] Start: 10-19-2026 Diabetes Screening Diabetes Screening [facility] Start: 09-17-2026 Lipid 1996 panel - Serum or Plasma Lipid Screening [facility] Start: 09-17-2026 Lipid panel [facility] Start: 09-17-2026 LIPID SCREEN LIPID SCREEN [facility] Start: 07-22-2026 Diabetes Screening Diabetes Screening [facility] Start: 11-21-2025 Diabetes mellitus screening Diabetes Screening [facility] Start: 09-04-2025 Annual PCP Team Chronic Disease Visit Annual PCP Team Chronic Disease Visit [facility] Start: 07-30-2025 DIABETES SCREEN DIABETES SCREEN [facility] Start: 07-30-2025 Diabetes Screening Diabetes Screening [facility] Start: 03-14-2025 BP Controlled (<130/80) BP Controlled (<130/80) [facility] Start: 12-13-2024 End: 12-13-2024 Patient encounter procedure 12/13/2024 2:20 PM EDT Office Visit [facility] - [place] [place] [phone] Lupe Riddle MD [address] [facility] [address] [place] [address] [facility] Weight Management [facility] Start: 12-12-2024 End: 12-12-2024 Patient encounter procedure 12/12/2024 10:20 AM EDT Office Visit [facility] [place] [address] [place], [place] [phone] Salma Acevedo DATA SERVICES DEVELOPER.DECISION SCIENCE ANALYST [address] [place], [place] [phone] [facility] ER follow up umbilical area cellulitis, taking doxycycline, cephalexin [facility] [place] Comment on above: [facility] ER follow up umbilical area cellulit is, taking doxycycline, cephalexin Start: 12-09-2024 [facility] Start: 12-04-2024 Influenza vaccination [facility] Start: 12-02-2024 Annual PCP Team Chronic Disease Visit Annual PCP Team Chronic Disease Visit [facility] Start: 12-02-2024 Covid-19 Vaccine ( season) Covid-19 Vaccine () [facility] Comment on above: Postponed from 12/04/2022 (Declined at t his time) Start: 11-29-2024 End: 11-29-2024 Patient encounter procedure 11/29/2024 1:50 PM EDT Office Visit [facility] [place] [phone] Lupe Riddle MD [address] [place], [place] [id number] [facility] [place] Start: 11-15-2024 End: 11-15-2024 Patient encounter procedure 11/15/2024 1:50 PM EDT Office Visit [facility] - [place] [address] [address] [place] [phone] Lupe Riddle MD [address] [place], [place] [phone] [facility] [place] Start: 10-19-2024 Annual PCP Team Chronic Disease Visit Annual PCP Team Chronic Disease Visit [facility] Start: 10-04-2024 End: 10-04-2024 Patient encounter procedure 10/04/2024 2:20 PM EDT Office Visit [facility] Weight [place] [phone] Lupe Riddle MD [address] [place], [place] [id number] [facility] [place] Start: 09-17-2024 DIABETES SCREEN DIABETES SCREEN [facility] Start: 09-14-2024 Annual PCP Team Chronic Disease Visit Annual PCP Team Chronic Disease Visit [facility] Start: 09-13-2024 End: 09-13-2024 Patient encounter procedure 09/13/2024 2:20 PM EDT Office Visit [facility] Management - [place] [phone] Lupe Riddle MD [address] [place] [address] [facility] [place] Start: 08-11-2024 End: 08-11-2024 Patient encounter procedure 08/11/2024 2:20 PM EDT Office Visit [facility] Weight Management [place] [address] [place] [phone] Lupe Riddle MD [address] [place] [address] [facility] [place] Start: 08-10-2024 Annual PCP Team Chronic Disease Visit Annual PCP Team Chronic Disease Visit [facility] Start: 08-08-2024 DTaP/Tdap/Td Vaccines (3 - Td or Tdap) DTaP/Tdap/Td Vaccines (3 - Td or Tdap) [facility] Start: 08-08-2024 Urine microalbumin profile [facility] Start: 07-22-2024 Annual PCP Team Chronic Disease Visit Annual PCP Team Chronic Disease Visit [facility] Start: 07-22-2024 Diabetes mellitus screening Diabetes Screening [facility] Start: 07-14-2024 End: 07-14-2024 Patient encounter procedure 07/14/2024 1:30 PM EDT Office Visit [facility] Weight [place] [address] [place] [phone] Lupe Riddle MD [address] [place] [address] [facility] [place] Start: 06-08-2024 End: 06-08-2024 Patient encounter procedure Weight Manag [facility] Start: 06-06-2024 End: 06-06-2024 Clinical Support 06/06/2024 2:30 PM EST Clinical Support [facility] Weight Management [facility] [address] [facility] [place] [address] [place] [address] Nate Winters MD [address] [facility] [address] [place] [address] [facility] [address] [place], [place] [phone] [facility] Weight Management [facility] Start: 05-23-2024 End: 05-23-2024 Patient encounter procedure Weight Manag [facility] Start: 05-14-2024 Annual PCP Team Chronic Disease Visit Annual PCP Team Chronic Disease Visit [facility] Start: 03-27-2024 End: 03-27-2024 Nursing evaluation of patient and report 03/27/2024 3:40 PM EST Nurse Visit Cardiology [address] [place] [phone] Wstr, Nurse Card Admin [facility] [address] [place] [phone] Dizziness [R42] Cardiology Comment on above: Dizziness [R42] Start: 03-27-2024 End: 03-27-2024 Patient encounter procedure 03/27/2024 2:00 PM EST Office Visit Cardiology [address] [place] [phone] Kapil Li MD [address] [facility], [address] [place] [address] Dizziness [R42] Cardiology Comment on above: Dizziness [R42] Start: 03-24-2024 End: 03-24-2024 Patient encounter procedure 03/24/2024 2:00 PM EST Office Visit [facility] - [place] [address] [place] [phone] Lupe Riddle MD [address] [place], [place] [id number] [facility] - [place] Start: 03-10-2024 End: 03-10-2024 Admission to same day surgery center 03/10/2024 10:20 AM EST - 03/10/2024 10:40 AM EST [facility] [address] [place] [phone] Nate Winters MD [address] [facility] [address] [place] [address] ESOPHAGOGASTRODUODENOSCOPY WITH BIOPSY [31631 (CPT )] [facility] Comment on above: ESOPHAGOGASTRODUODENOSCOPY WITH BIOPSY [ 09644 (CPT )] Start: 03-10-2024 Subsequent hospital visit by physician 03/10/2024 10:20 AM EST Hospital Encounter [facility] [address] [place] [phone] Nate Winters MD [address] [facility] [address] [place] [address] [facility] Start: 03-10-2024 End: 03-10-2024 Egd transoral biopsy single/multiple [facility] Start: 02-28-2024 End: 02-28-2024 Clinical Support [facility] - [place] Start: 02-11-2024 End: 02-11-2024 Patient encounter procedure 02/11/2024 2:30 PM EST Office Visit [facility] - [place] [address] [place] [phone] Lupe Riddle MD [address] [place], [place] [id number] [facility] - [place] Start: 01-28-2024 End: 01-13-2025 Nicotine, Blood Nicotine, Blood Lab Routine Primary osteoarthritis of both knees Gastroesophageal reflux disease without esophagitis Daytime sleepiness Primary hypertension Morbid obesity with BMI of 45.0-49.9, adult ([facility]) Expected: 01/28/2024 (Approximate), Expires: 01/13/2025 [facility] Comment on above: Expected: 01/28/2024 (Approximate), Expi res: 01/13/2025 Start: 01-25-2024 Pneumococcal Vaccine: 50+ (1 of 1 - PCV) Pneumococcal Vaccine: 50+ (1 of 1 - PCV) [facility] Start: 01-25-2024 Pneumococcal Vaccine: 50+ Years (1 of 1 - PCV) Pneumococcal Vaccine: 50+ Years (1 of 1 - PCV) [facility] Start: 01-25-2024 Shingrix Vaccine (1 of 2) Shingrix Vaccine (1 of 2) [facility] Start: 01-25-2024 Zoster Vaccines (1 of 2) Zoster Vaccines (1 of 2) [facility] Start: 01-17-2024 End: 01-17-2024 Nursing evaluation of patient and report 01/17/2024 3:40 PM EDT Nurse Visit Cardiology [address] [place] [address] Wstr, Nurse Card Admin [facility] [address] [place] [address] Dizziness [R42] Cardiology Comment on above: Dizziness [R42] Start: 01-14-2024 End: 01-13-2025 25-hydroxyvitamin D3 [Mass/volume] in Serum or Plasma Vitamin D Deficiency Screening (Vit D 25) Lab Routine Primary osteoarthritis of both knees Gastroesophageal reflux disease without esophagitis Daytime sleepiness Primary hypertension Morbid obesity with BMI of 45.0-49.9, adult ([facility]) Expected: 01/14/2024, Expires: 01/13/2025 [facility] [employer] [facility] Comment on above: Expected: 01/14/2024, Expires: Start: 01-14-2024 End: 01-13-2025 CBC panel - Blood by Automated count CBC Lab Routine Primary osteoarthritis of both knees Gastroesophageal reflux disease without esophagitis Daytime sleepiness Primary hypertension Morbid obesity with BMI of 45.0-49.9, adult (HCC) Expected: 01/14/2024, Expires: 01/13/2025 [employer] Comment on above: Expected: 01/14/2024, Expires: Start: 01-14-2024 End: 01-13-2025 Cobalamin (Vitamin B12) [Mass/volume] in Serum or Plasma Vitamin B12 Lab Routine Primary osteoarthritis of both knees Gastroesophageal reflux disease without esophagitis Daytime sleepiness Primary hypertension Morbid obesity with BMI of 45.0-49.9, adult ([facility]) Expected: 01/14/2024, Expires: 01/13/2025 [facility] Comment on above: Expected: 01/14/2024, Expires: Start: 01-14-2024 End: 01-13-2025 Comprehensive metabolic 1998 panel - Serum or Plasma Comprehensive metabolic panel Lab Routine Primary osteoarthritis of both knees Gastroesophageal reflux disease without esophagitis Daytime sleepiness Primary hypertension Morbid obesity with BMI of 45.0-49.9, adult ([facility]) Expected: 01/14/2024, Expires: 01/13/2025 [employer] [facility] Comment on above: Expected: 01/14/2024, Expires: Start: 01-14-2024 End: 01-13-2025 Ferritin [Mass/volume] in Serum or Plasma Ferritin Lab Routine Primary osteoarthritis of both knees Gastroesophageal reflux disease without esophagitis Daytime sleepiness Primary hypertension Morbid obesity with BMI of 45.0-49.9, adult ([facility]) Expected: 01/14/2024, Expires: 01/13/2025 [facility] Comment on above: Expected: 01/14/2024, Expires: Start: 01-14-2024 End: 01-13-2025 Folate [Mass/volume] in Serum or Plasma Folate Lab Routine Primary osteoarthritis of both knees Gastroesophageal reflux disease without esophagitis Daytime sleepiness Primary hypertension Morbid obesity with BMI of 45.0-49.9, adult (HCC) Expected: 01/14/2024, Expires: 01/13/2025 [facility] Comment on above: Expected: 01/14/2024, Expires: Start: 01-14-2024 End: 01-13-2025 Hemoglobin A1c measurement Hemoglobin A1c Lab Routine Primary osteoarthritis of both knees Gastroesophageal reflux disease without esophagitis Daytime sleepiness Primary hypertension Morbid obesity with BMI of 45.0-49.9, adult (HCC) Expected: 01/14/2024, Expires: 01/13/2025 [facility] [employer] [facility] Work Phone: Comment on above: Expected: 01/14/2024, Expires: Start: 01-14-2024 End: 01-13-2025 Iron and Iron binding capacity panel - Serum or Plasma Iron Lab Routine Primary osteoarthritis of both knees Gastroesophageal reflux disease without esophagitis Daytime sleepiness Primary hypertension Morbid obesity with BMI of 45.0-49.9, adult ([facility]) Expected: 01/14/2024, Expires: 01/13/2025 [facility] Comment on above: Expected: 01/14/2024, Expires: Start: 01-14-2024 End: 01-13-2025 Lipid 1996 panel - Serum or Plasma Lipid panel Lab Routine Primary osteoarthritis of both knees Gastroesophageal reflux disease without esophagitis Daytime sleepiness Primary hypertension Morbid obesity with BMI of 45.0-49.9, adult (HCC) Expected: 01/14/2024, Expires: 01/13/2025 [facility] Comment on above: Expected: 01/14/2024, Expires: Start: 01-14-2024 End: 01-13-2025 Magnesium [Mass/volume] in Serum or Plasma Magnesium Lab Routine Primary osteoarthritis of both knees Gastroesophageal reflux disease without esophagitis Daytime sleepiness Primary hypertension Morbid obesity with BMI of 45.0-49.9, adult (HCC) Expected: 01/14/2024, Expires: 01/13/2025 [facility] [employer] [facility] Comment on above: Expected: 01/14/2024, Expires: Start: 01-14-2024 End: 01-13-2025 Thyrotropin [Units/volume] in Serum or Plasma TSH Lab Routine Primary osteoarthritis of both knees Gastroesophageal reflux disease without esophagitis Daytime sleepiness Primary hypertension Morbid obesity with BMI of 45.0-49.9, adult (HCC) Expected: 01/14/2024, Expires: 01/13/2025 [facility] [employer] [facility] Comment on above: Expected: 01/14/2024, Expires: Start: 01-14-2024 End: 01-13-2025 Vitamin B1, whole blood ([facility]) Vitamin B1, whole blood ([facility]) Lab Routine Primary osteoarthritis of both knees Gastroesophageal reflux disease without esophagitis Daytime sleepiness Primary hypertension Morbid obesity with BMI of 45.0-49.9, adult (HCC) Expected: 01/14/2024, Expires: 01/13/2025 [facility] Comment on above: Expected: 01/14/2024, Expires: Start: 01-14-2024 End: 01-13-2025 Zinc (Sendout) Zinc (Sendout) Lab Routine Primary osteoarthritis of both knees Gastroesophageal reflux disease without esophagitis Daytime sleepiness Primary hypertension Morbid obesity with BMI of 45.0-49.9, adult (HCC) Expected: 01/14/2024, Expires: 01/13/2025 [employer] [facility] Comment on above: Expected: 01/14/2024, Expires: Start: 01-08-2024 Annual PCP Team Chronic Disease Visit Annual PCP Team Chronic Disease Visit [facility] Start: 01-06-2024 End: 01-06-2024 Patient encounter procedure 01/06/2024 9:40 AM EDT Office Visit [facility] [place] [address] [place] [address] Mary Mcmillan APRN.DECISION SCIENCE ANALYST [address] [place] [address] 1 month BP med check [facility] [place] Comment on above: 1 month BP med check Start: 12-13-2023 End: 12-13-2023 Patient encounter procedure 12/13/2023 1:30 PM EDT Office Visit Orthopaedics [address] [place] [address] Oksana Kenney PA-C [address] [place] [address] Right knee pain. In the er on 11/28/23 Orthopaedics Comment on above: Right knee pain. In the er on 11/28/23 Start: 12-10-2023 BP CONTROLLED (<130/80) BP CONTROLLED (<130/80) [facility] in Start: 12-09-2023 Mammography [facility] Start: 12-09-2023 Screening for malignant neoplasm of breast [facility] Start: 12-09-2023 End: 12-09-2023 Patient encounter procedure OB/Gynecolog y Comment on above: Encounter for screening mammogram for br east cancer [Z12.31] Encounter for screen ing mammogram for breast cancer [Z12.31]- time slot ok per [facility] reschedule email Start: 12-05-2023 Covid-19 Vaccine () Covid-19 Vaccine () [facility] Start: 12-05-2023 Covid-19 Vaccine () Covid-19 Vaccine () [facility] Start: 12-05-2023 Influenza vaccination [facility] Start: 12-03-2023 ANNUAL PCP TEAM CHRONIC DISEASE VISIT ANNUAL PCP TEAM CHRONIC DISEASE VISIT [facility] Start: 12-03-2023 COVID-19 VACCINE (#1) COVID-19 VACCINE (#1) [facility] Comment on above: Postponed from 1974 (Declined at t his time) Start: 12-03-2023 HEPATITIS B (1 of 3 - 3-dose series) HEPATITIS B (1 of 3 - 3-dose series) [facility] Comment on above: Postponed from 1974 (Declined at t his time) Start: 12-03-2023 Hepatitis B Vaccine (1 of 3 - 19+ 3-dose series) Hepatitis B Vaccine (1 of 3 - 19+ 3-dose series) [facility] Comment on above: Postponed from 1993 (Declined at t his time) Start: 12-03-2023 Hepatitis B Vaccine (1 of 3 - 3-dose series) Hepatitis B Vaccine (1 of 3 - 3-dose series) [facility] Comment on above: Postponed from 1974 (Declined at t his time) Start: 12-03-2023 End: 12-03-2023 Patient encounter procedure 12/03/2023 1:00 PM EDT Office Visit [facility] [place] [address] [facility] [place] [address] Mary Mcmillan, DATA SERVICES DEVELOPER.DECISION SCIENCE ANALYST [address] [place] [address] wellness exam Family [facility] [place] Comment on above: wellness exam Start: 11-08-2023 End: 11-08-2023 Nursing evaluation of patient and report 11/08/2023 3:40 PM EDT Nurse Visit Cardiology [address] [place] [address] Wstr, Nurse Card Admin [facility] [address] [place] [address] Dizziness [R42] Cardiology Comment on above: Dizziness [R42] Start: 10-25-2023 End: 10-25-2023 Patient encounter procedure 10/25/2023 2:00 PM EDT Appointment Cat Scan [address] [place] [address] Chronic cough [R05.3] Cat Scan Comment on above: Chronic cough [R05.3] Start: 10-20-2023 End: 01-19-2024 Comprehensive metabolic 2000 panel - Serum or Plasma [facility] Comment on above: Expected: 10/20/2023, Expires: Start: 10-20-2023 End: 01-19-2024 Natriuretic peptide.B prohormone N-Terminal [Mass/volume] in Serum or Plasma [facility] Work Phone: Comment on above: Expected: 10/20/2023, Expires: 4 Start: 10-20-2023 End: 10-20-2023 Patient encounter procedure 10/20/2023 1:00 PM EDT Office Visit [facility] Medicine [place] [address] [place] [phone] Mary Mcmillan, DATA SERVICES DEVELOPER.DECISION SCIENCE ANALYST [address] [place] [address] 1 month follow up for meds and zio [facility] [place] Comment on above: 1 month follow up for meds and zio Start: 09-13-2023 End: 09-13-2023 Patient encounter procedure 09/13/2023 3:00 PM EDT Office Visit [facility] [place] [address] [place] [address] Mary Mcmillan APRN.DECISION SCIENCE ANALYST [address] [place] [address] 4 wk follow up [facility] [place] Comment on above: 4 wk follow up Start: 08-13-2023 End: 08-13-2023 Patient encounter procedure 08/13/2023 10:00 AM EDT Office Visit Orthopaedics [address] [place] [address] Oksana Kenney PA-C [address] [place] [address] Knee injections (cortisone) Orthopaedics Comment on above: Knee injections (cortisone) Start: 08-09-2023 End: 08-09-2023 Patient encounter procedure 08/09/2023 1:50 PM EDT Office Visit Cardiology [address] [place] [address] SOB (shortness of breath) [R06.02] Cardiology Comment on above: SOB (shortness of breath) [R06.02] Start: 08-01-2023 ANNUAL PCP TEAM CHRONIC DISEASE VISIT ANNUAL PCP TEAM CHRONIC DISEASE VISIT [facility] Start: 07-23-2023 End: 10-22-2023 25-hydroxyvitamin D3 [Mass/volume] in Serum or Plasma [facility] Work Phone: Comment on above: Expected: 07/23/2023, Expires: Start: 02-06-2023 End: 05-08-2023 25-hydroxyvitamin D3 [Mass/volume] in Serum or Plasma VITAMIN D 25 HYDROXY Lab Routine Vitamin D deficiency Expected: 02/06/2023, Expires: 05/08/2023 [facility] Work Phone: Comment on above: Expected: 02/06/2023, Expires: 4 Start: 12-04-2022 Covid-19 Vaccine () Covid-19 Vaccine () [facility] Start: 12-04-2022 Influenza vaccination [facility] Start: 11-09-2022 End: 01-09-2023 25-hydroxyvitamin D3 [Mass/volume] in Serum or Plasma VITAMIN D 25 HYDROXY Lab Routine Vitamin D deficiency Expected: 11/09/2022, Expires: 01/09/2023 [facility] Work Phone: Comment on above: Expected: 11/09/2022, Expires: 3 Start: 11-05-2022 End: 01-05-2023 25-hydroxyvitamin D3 [Mass/volume] in Serum or Plasma VITAMIN D 25 HYDROXY Lab Routine Vitamin D deficiency Expected: 11/05/2022, Expires: 01/05/2023 [facility] Work Phone: Comment on above: Expected: 11/05/2022, Expires: 3 Start: 09-17-2022 ANNUAL PCP TEAM CHRONIC DISEASE VISIT ANNUAL PCP TEAM CHRONIC DISEASE VISIT [facility] Start: 09-17-2022 BP CONTROLLED (<130/80) BP CONTROLLED (<130/80) [facility] Start: 09-17-2022 COVID-19 VACCINE (#1) COVID-19 VACCINE (#1) [facility] Comment on above: Postponed from 1979 (Declined at t his time) Postponed from 07/25 (Declined at this time) Start: 07-30-2022 End: 09-29-2022 Amylase [Enzymatic activity/volume] in Serum or Plasma [facility] Work Phone: Comment on above: Expected: 07/30/2022, Expires: 3 Start: 07-30-2022 End: 09-29-2022 Comprehensive metabolic 2000 panel - Serum or Plasma [facility] Work Phone: Comment on above: Expected: 07/30/2022, Expires: 3 Start: 06-09-2022 Patient discharge [facility] Start: 05-06-2022 Procedure [facility] Start: 03-11-2022 End: 03-25-2022 Influenza virus A and B RNA and SARS-CoV-2 (COVID-19) N gene panel - Respiratory specimen by JACEK with probe detection [facility] Work Phone: Comment on above: Expected: 03/11/2022, Expires: 2 Start: 12-04-2021 Influenza vaccination [facility] Start: 09-26-2021 Njx anes&/strd w/img tfrml edrl lmbr/sac 1 lvl NJX AA&/STRD TFRM EPI L/S 1 [facility] Work Phone: Start: 09-26-2021 Njx anes&/strd w/img tfrml edrl lmbr/sac ea lv NJX AA&/STRD TFRM EPI L/S EA [facility] Work Phone: Start: 09-26-2021 Patient discharge [facility] Work Phone: Start: 07-04-2021 Njx dx/ther agt pvrt facet jt lmbr/sac 1 level INJ PARAVERT F JNT L/S 1 [facility] Work Phone: Start: 07-04-2021 Njx dx/ther agt pvrt facet jt lmbr/sac 2nd level INJ PARAVERT F JNT L/S 2 [facility] Work Phone: Start: 07-04-2021 Injection of facet joint OR-Steroid Inj/Lum Sac/3rd L [facility] Work Phone: Start: 07-04-2021 Injection of spinal epidural space [facility] Work Phone: Start: 07-04-2021 X-ray of lumbosacral spine L/S Spine Min 4 Views [facility] Work Phone: Start: 2019 CURRY (FIT-DNA) CURRY (FIT-DNA) [facility] Start: 2019 Colonoscopy COLONOSCOPY [facility] Start: 2019 COLORECTAL CANCER SCREENING COLORECTAL CANCER SCREENING [facility] Start: [address] COLONOGRAPHY [facility] Start: 2019 FECAL OCCULT BLOOD FECAL OCCULT BLOOD [facility] Start: 2019 Screening for malignant neoplasm of colon [facility] Start: 2019 SIGMOIDOSCOPY SIGMOIDOSCOPY [facility] Start: 02-11-2017 Mammography MAMMOGRAM [facility] Start: 2014 Screening for malignant neoplasm of breast Mammogram [facility] Start: 01-25-2004 Screening for malignant neoplasm of cervix [facility] Start: 1995 Screening for malignant neoplasm of cervix Pap Smear [facility] Start: 1993 Hepatitis B Vaccine (1 of 3 - 19+ 3-dose series) Hepatitis B Vaccine (1 of 3 - 19+ 3-dose series) [facility] Start: 1993 Hepatitis B Vaccines (1 of 3 - 19+ 3-dose series) Hepatitis B Vaccines (1 of 3 - 19+ 3-dose series) [facility] Start: 01-25-1992 Hepatitis C screening Hepatitis C Screening [facility] Start: 1986 Depression Monitoring Depression Monitoring [facility] Start: 1975 MMR Vaccines (1 of 1 - Standard series) MMR Vaccines (1 of 1 - Standard series) [facility] Start: 1974 COVID-19 VACCINE (#1) COVID-19 VACCINE (#1) [facility] Start: 1974 HEPATITIS B (1 of 3 - 3-dose series) HEPATITIS B (1 of 3 - 3-dose series) [facility] Start: 1974 HIV screening HIV Screening [facility] Start: 1974 Lipid panel Lipid Panel [facility] Start: 1974 Screening for malignant neoplasm of colon [facility] Bacteria identified in Unspecified specimen by Anaerobe culture [facility] Chlamydia trachomatis+Neisseria gonorrhoeae DNA [Presence] in Unspecified specimen by JACEK with probe detection GONORRHEA/CHLAMYDIA NAAT Lab Routine Screen for STD (sexually transmitted disease) Ordered: 12/04/2022 [facility] Work Phone: Comment on above: Ordered: 12/04/2022 Clostridioides diffi cile toxin genes [Presence] in Stool by JACEK with probe detection C. DIFFICILE PCR Lab Routine Diarrhea, unspecified type Ordered: 07/30/2022 [facility] Work Phone: Comment on above: Ordered: 07/30/2022 End: 11-19-2024 CT Chest W contrast IV CT CHEST W IVCON Radiology STAT Chronic cough Abnormal chest x-ray 1 Occurrences starting 10/21/2023 until 11/19/2024 [facility] Work Phone: Comment on above: 1 Occurrences starting 10/21/2023 until 11/19/2024 End: 02-10-2025 DBT Breast - bilateral screening ALLIE SCREENING W ASHLEY Radiology Routine Encounter for screening mammogram for breast cancer 1 Occurrences starting 01/12/2024 until 02/10/2025 [facility] Work Phone: Comment on above: 1 Occurrences starting 01/12/2024 until 02/10/2025 ECG COMPLETE [facility] Work Phone: Comment on above: Ordered: 07/23/2023 End: 07-22-2024 Echocardiography ECHO Cardiology Routine SOB (shortness of breath) 1 Occurrences starting 07/23/2023 until 07/22/2024 [facility] Work Phone: Comment on above: 1 Occurrences starting 07/23/2023 until 07/22/2024 ENTERIC BACTERIAL PA ANJU BY PCR ENTERIC BACTERIAL PANEL BY PCR Lab Routine Diarrhea, unspecified type Ordered: 07/30/2022 [facility] Work Phone: Comment on above: Ordered: 07/30/2022 End: 08-10-2024 EXERCISE STRESS ECG (WITHOUT IMAGING) EXERCISE STRESS ECG (WITHOUT IMAGING) Cardiology Routine Dizziness Ventricular hypertrophy 1 Occurrences starting 08/11/2023 until 08/10/2024 [facility] Work Phone: Comment on above: 1 Occurrences starting 08/11/2023 until 08/10/2024 [facility] F[facility] Sm[facility] End: 01-03-2024 ALLIE SCREENING W ASHLEY ALLIE SCREENING W ASHLEY Radiology Routine Encounter for screening mammogram for breast cancer 1 Occurrences starting 12/04/2022 until 01/03/2024 [facility] Work Phone: Comment on above: 1 Occurrences starting 12/04/2022 until 01/03/2024 End: 06-12-2024 MR Cervical spine WO contrast MRI CERVICAL SPINE WO IV CON Radiology Routine Cervicalgia 1 Occurrences starting 05/14/2023 until 06/12/2024 [facility] Work Phone: Comment on above: 1 Occurrences starting 05/14/2023 until 06/12/2024 OUTSIDE VENDOR CARDI AC OUTPATIENT EXTENDED RHYTHM RECORDING (WITHOUT TELEMETRY) OUTSIDE VENDOR CARDIAC OUTPATIENT EXTENDED RHYTHM RECORDING (WITHOUT TELEMETRY) Holter Routine Dizziness Bradycardia Ordered: 09/15/2023 [facility] Work Phone: Comment on above: Ordered: 09/15/2023 Ova and parasites id entified in Unspecified specimen by Light microscopy OVA + PARA MICROSCOPIC Microbiology Routine Diarrhea, unspecified type Ordered: 07/30/2022 [facility] Work Phone: Comment on above: Ordered: 07/30/2022 Patient Education [facility] Work Phone: Patient referral [facility] Work Phone: SARS-CoV-2 (COVID-19 ) RNA [Presence] in Respiratory specimen by JACEK with probe detection COVID NAAT, ROUTINE Microbiology Routine URI, acute Exposure to confirmed case of COVID-19 12/09/2022 10:31 AM EDT [facility] Work Phone: End: 10-31-2022 Screening mammography bi 2-view breast inc cad ALLIE SCREENING Radiology Routine Encounter for screening mammogram for breast cancer 1 Occurrences starting 10/01/2021 until 10/31/2022 [facility] Work Phone: Comment on above: 1 Occurrences starting 10/01/2021 until 10/31/2022 Tissue exam [facility] Work Phone: Comment on above: Release Upon Ordering for 1 Occurrences starting 03/10/2024, 1 completed End: 06-12-2024 XR Cervical spine AP and Lateral and oblique XR CERV OTHER 4V AP/LAT/OBL Radiology Routine Cervicalgia 1 Occurrences starting 05/14/2023 until 06/12/2024 [facility] Work Phone: Comment on above: 1 Occurrences starting 05/14/2023 until 06/12/2024 XR Cervical spine AP and Lateral and oblique XR CERV OTHER 4V AP/LAT/OBL Radiology Routine Cervicalgia 05/14/2023 10:14 AM EST [facility] Work Phone: End: 08-21-2024 XR Chest PA and Lateral XR CHEST 2V FRONTAL/LAT Radiology Routine SOB (shortness of breath) 1 Occurrences starting 07/23/2023 until 08/21/2024 [facility] Work Phone: Comment on above: 1 Occurrences starting 07/23/2023 until 08/21/2024 XR Chest PA and Lateral XR CHEST 2V FRONTAL/LAT Radiology Routine SOB (shortness of breath) 07/23/2023 2:39 PM EDT [facility] Work Phone: End: 01-10-2023 XR FOOT GENERAL 3V AP/LAT/OBL LEFT XR FOOT GENERAL 3V AP/LAT/OBL LEFT Radiology Routine Contusion of lesser toe of left foot without damage to nail, initial encounter 1 Occurrences starting 12/11/2021 until 01/10/2023 [facility] Work Phone: Comment on above: 1 Occurrences starting 12/11/2021 until 01/10/2023 End: 11-15-2023 XR HIP GENERAL 3V PELV/AP/LAT LEFT XR HIP GENERAL 3V PELV/AP/LAT LEFT Radiology Routine Pain in left hip 1 Occurrences starting 10/16/2022 until 11/15/2023 [facility] Work Phone: Comment on above: 1 Occurrences starting 10/16/2022 until 11/15/2023 End: 07-08-2024 XR Knee - right 4 Views XR KNEE GENERAL 4V AP BOTH/PA BOTH/LAT/MERC RIGHT Radiology Routine Right knee pain, unspecified chronicity 1 Occurrences starting 06/09/2023 until 07/08/2024 [facility] Work Phone: Comment on above: 1 Occurrences starting 06/09/2023 until 07/08/2024 End: 11-15-2023 XR KNEE GENERAL 4V AP BOTH/PA BOTH/LAT/MERC LEFT XR KNEE GENERAL 4V AP BOTH/PA BOTH/LAT/MERC LEFT Radiology Routine Right knee pain, unspecified chronicity 1 Occurrences starting 10/16/2022 until 11/15/2023 [facility] Work Phone: Comment on above: 1 Occurrences starting 10/16/2022 until 11/15/2023 [facility] Immunizations Immunization Date Immunization Notes Care Provider Suzy moreira 03-09-2018 influenza, injectabl e, quadrivalent, contains preservative Mary Tannhof DATA SERVICES DEVELOPER.DECISION SCIENCE ANALYST Work Phone: [facility] 03-09-2018 influenza virus vaccine, unspecified formulation Racquel Johnson [facility] 03-26-2017 influenza, injectabl e, quadrivalent, contains preservative Mary Tannhof DATA SERVICES DEVELOPER.DECISION SCIENCE ANALYST Work Phone: [facility] 01-04-2016 Influenza virus vaccine [facility] 08-08-2014 tetanus toxoid, reduced diphtheria toxoid, and acellular pertussis vaccine, adsorbed Mary Tannhof DATA SERVICES DEVELOPER.DECISION SCIENCE ANALYST Work Phone: [facility] Work Phone: 02-01-2014 influenza, seasonal, injectable Mary Tannhof DATA SERVICES DEVELOPER.DECISION SCIENCE ANALYST Work Phone: [facility] 08-16-2013 tetanus toxoid, reduced diphtheria toxoid, and acellular pertussis vaccine, adsorbed Mary Tannhof DATA SERVICES DEVELOPER.DECISION SCIENCE ANALYST Work Phone: [facility] 03-31-2013 influenza virus vaccine, unspecified formulation Mary Tannhof DATA SERVICES DEVELOPER.DECISION SCIENCE ANALYST Work Phone: [facility] 03-15-2012 influenza virus vaccine, unspecified formulation Mary Mcmillan DATA SERVICES DEVELOPER.DECISION SCIENCE ANALYST Work Phone: [facility] 03-04-2011 influenza virus vaccine, unspecified formulation Mary Mcmillan DATA SERVICES DEVELOPER.DECISION SCIENCE ANALYST Work Phone: [facility] Work Phone: 01-26-2006 influenza virus vaccine, unspecified formulation Mary Mcmillan DATA SERVICES DEVELOPER.DECISION SCIENCE ANALYST Work Phone: [facility] Work Phone: Payers Date Payer Category Payer Self-pay [id number] 2023 Medicaid HMO [employer] [facility] Address: [address] [place], [place] [address] [id number] 2015 [facility] [id number] 2015-Present [phone] [address] [place] [address] Medicaid [id number] 2015 Medicaid [id number] 2015 [id number] 2015 [id number] Unknown [id number] Unknown [id number] Social History Date Type Detail Facility Start: 01-30-2021 End: 06-05-2022 Tobacco smoking status NHIS Unknown if ever smoked [facility] Start: 04-29-2020 None [facility] Start: 04-29-2020 With Family [facility] Start: 04-29-2020 Non-smoker [facility] Start: 1975 Sex Assigned At Female [facility] Start: 12-11-2010 End: 12-09-2024 Tobacco smoking status NHIS Never smoked tobacco [facility] Work Phone: Start: 09-17-2021 End: 09-04-2024 Alcohol intake Current drinker of alcohol (finding) [facility] Start: 10-10-2014 History SDOH Alcohol Comment rarely, 1-2 weekends per month 5 drinks (prior to ) [facility] Start: 1975 Sex Assigned At Not on file [facility] Start: 09-07-2021 End: 12-10-2021 Exposure to SARS-CoV-2 (event) Not sure [facility] Start: 12-11-2010 End: 01-04-2024 Tobacco use and exposure Smokeless tobacco non-user [facility] Work Phone: Start: 09-14-2022 End: 08-11-2023 History of Social function [facility] Start: 09-14-2022 End: 08-11-2023 Tobacco use panel [facility] Start: 03-06-2012 Adult Depression Screening Assessment 6 [facility] Start: 12-28-2019 Gender identity Identifies as female gender (finding) [facility] Has the electric, gas, oil, or water company threatened to shut off services in your home in past 12Mo No [facility] Are you now , , , , never or living with a partner? [facility] How often to you hav e a drink containing alcohol? 2-4 times a month [facility] How many standard drinks containing alcohol do you have on a typical day? 1 or 2 [facility] How often do you hav e 6 or more drinks on 1 occasion? Less than monthly [facility] How hard is it for you to pay for the very basics like food, housing, medical care, and heating Somewhat hard [facility] Do you feel stress - tense, restless, nervous, or anxious, or unable to sleep at night because your mind is troubled all the time - these days [OSQ] Rather much [facility] (I/We) worried whether (my/our) food would run out before (I/we) got money to buy more. Sometimes true [facility] Start: 01-04-2024 Alcohol Comment 2 cans weekly [facility] Start: 12-20-2023 Sex Female (finding) [facility] Start: 03-10-2024 Alcohol Comment 2 beers monthly [facility] NEGATED: Highlighted row [facility] Medical Equipment Procedure Code Equipment Code Equipment Origin al Text Equipment Identifier Dates Plate 04/07 Tubula r Tit 6 Hole - [id number] Start: 03-08-2009 Comment on above: Description: SYNTHES SMALL FRAG Screw Pa Tit 3 .5x28m 404.028 - [id number] Start: 03-08-2009 Screw Pa Tit 3 .5x12m 404.012 - [id number] Start: 03-08-2009 Screw Pa Tit 3 .5x10m 404.010 - [id number] Start: 03-08-2009 Screw Pa Tit 3 .5x16m 404.016 - [id number] Start: 03-08-2009 Screw Pa Tit 3 .5x14m 404.014 - [id number] Start: 03-08-2009 Plant polysaccha ride haemostatic agent, bioabsorbable [id number] [facility] Start: 06-09-2022 Goals Date Patient Goal Desired Activity /State Functional Status Date Assessment Result Facility 10-23-2014 Are you deaf, or do you have serious difficulty hearing No 10/23/2014 3:15 PM Karla Rivera LPN No [facility] 10-23-2014 Are you blind, or do you have serious difficulty seeing, even when wearing glasses No 10/23/2014 3:15 PM Karla Rivera LPN No [facility] 10-23-2014 Do you have serious difficulty walking or climbing stairs No 10/23/2014 3:15 PM Karla Rivera LPN No [facility] 10-23-2014 Do you have difficul ty dressing or bathing No 10/23/2014 3:15 PM Karla Rivera LPN No [facility] 10-23-2014 Because of a physica l, mental, or emotional condition, do you have difficulty doing errands alone such as visiting a physician's office or shopping No 10/23/2014 3:15 PM Karla Rivera LPN No [facility] Mental Status Date Assessment Result Facility 06-09-2022 Cognitive function Voice/Name [facility] Work Phone: 09-26-2021 Cognitive function Voice/Name [facility] Work Phone: 07-04-2021 Cognitive function Voice/Name;To [facility] Work Phone: 10-23-2014 Because of a physica l, mental, or emotional condition, do you have serious difficulty concentrating, remembering, or making decisions No 10/23/2014 3:15 PM EDKarla Basurto LPN No [facility] Clinical Notes 07-03-2015 to 12-11-2024 Telephone Encounter - Melissa Stinson LPN - 12/11/2024 9:15 AM EDTTelephone Encounter - Melissa Stinson LPN - 12/11/2024 9:15 AM Lilly Fink MA - 11/29/2024 1:50 PM EDTAttachments Note Date & Type Note Facility 12-11-2024 Telephone encounter Note Patient calling was in [facility] ER on 12/09 has infection near umbilical area, told has cellulitis. She was put on Doxycycline and Cephalexin, she said the area is weeping now, but looks worse, hard, red very tender. Patient said she had similar thing on her face in the past and had to have surgery to remove it. Advised to go to ER for evaluation, she did not think [facility] would do anything more, advised [facility] or [facility] or [facility]. [facility] 12-11-2024 Miscellaneous Notes Patient calling was in [facility] ER on 12/09 has infection near umbilical area, told has cellulitis. She was put on Doxycycline and Cephalexin, she said the area is weeping now, but looks worse, hard, red very tender. Patient said she had similar thing on her face in the past and had to have surgery to remove it. Advised to go to ER for evaluation, she did not think [facility] would do anything more, advised [facility] or [facility] or [facility]. documented in this encounter [facility] 11-29-2024 History of Present illness Narrative [facility] SURGICAL WEIGHT LOSS MANAGEMENT PROGRAM [...] updated and completed. documented in this encounter [facility] 11-29-2024 Note BARIATRIC CARE [facility] SURGICAL WEIGHT LOSS MANAGEMENT PROGRAM PROGRESS NOTE [...] information? Yes Completed by: Tommy Fink MA [facility] 11-24-2024 Telephone encounter Note Called patient no answer. Sent patient HomeTouchhart message to reply and schedule appointment with Dr. Riddle. [facility] 11-24-2024 Miscellaneous Notes Called patient no answer. Sent patient HomeTouchhart message to reply and schedule appointment with Dr. Riddle. Pt called and left message that she is calling to r/s missed appt. Left message fro patient to call back to reschedule. documented in this encounter [facility] 11-21-2024 Telephone encounter Note Pt called and left message that she is calling to r/s missed appt. [facility] 11-21-2024 Miscellaneous Notes Pt called and left message that she is calling to r/s missed appt. Left message fro patient to call back to reschedule. documented in this encounter [facility] 11-15-2024 Telephone encounter Note Left message fro patient to call back to reschedule. [facility] 11-15-2024 Miscellaneous Notes Left message fro patient to call back to reschedule. documented in this encounter [facility] 10-04-2024 History of Present illness Narrative [facility] SURGICAL WEIGHT LOSS MANAGEMENT PROGRAM [...] updated and completed. documented in this encounter [facility] 10-04-2024 Note [facility] WE[facility] LOSS MANAGEMENT PROGRAM PROGRESS NOTE [...] information? Yes Completed by: Tommy Fink MA [facility] 09-13-2024 History of Present illness Narrative [...] was performed.Clinical documentation is updated and completed. [facility] SURGICAL WEIGHT LOSS MANAGEMENT PROGRAM [...] Tommy Fink MA documented in this encounter [facility] 09-13-2024 Note [facility] SURGICAL WEIGHT LOSS MANAGEMENT PROGRAM [...] information? Yes Completed by: Tommy Fink MA [facility] 09-04-2024 Instructions Neal Gomez APRN.[facility] - 09/04/2024 10:45 AM EDT We discussed your concerns about the sore on the left side of your head: - I am diagnosing this as a localized bacterial skin infection. - I have prescribed Bactrim DS (sulfamethoxazole/trimethoprim), 1 tablet twice daily for 10 days. This prescription has been sent to your preferred [facility] pharmacy in [place]. - Please take this medication with plenty [...] do not improve. documented in this encounter [facility] 09-04-2024 Note HNO ID: [id number] Author: NEAL GOMEZ APRN.NORI Service: ? Author [...] drainage. - Prescription sent to [facility] in [place]. Neal Gomez APRN.DECISION SCIENCE ANALYST This note was partly generated using [employer] voice recognition dictation and may contain some misspelled or inaccurate words missed on review. Recording using [employer] software for draft documentation of the visit was discussed with the patient/authorized public service representative; all questions welcomed and answered. Patient/authorized public service representative agreed to proceed [facility] 09-04-2024 History of Present illness Narrative Chief [...] incision and drainage. - [facility] [place]. Neal Gomez APRN.NORI This note was partly generated using [employer] voice recognition dictation and may contain some misspelled or inaccurate words missed on review. Recording using [employer] software for draft documentation of the visit was discussed with the patient/authorized public service representative; all questions welcomed and answered. Patient/authorized public service representative agreed to proceed documented in this encounter [facility] 08-29-2024 Telephone encounter Note The following approved [...] prescription at the pharmacy Neal Gomez APRN.CNP [facility] 08-29-2024 Miscellaneous Notes The following approved medication requests have been transmitted electronically. Requested Prescriptions Pending Prescriptions Disp Refills lisinopril (ZESTRIL) 10 mg tablet 30 tablet 5 Sig: Take 1 tablet by mouth once daily. Refused Prescriptions Disp Refills PARoxetine (PAXIL) 20 mg tablet 30 tablet 2 Sig: Take 1 tablet by mouth once daily. Take with additional 40 mg tablet. Refused By: SALMA OMODY Reason for Refusal: Records indicate that there is a valid prescription at the pharmacy omeprazole (PRILOSEC) 40 mg capsule 60 capsule 5 Sig: Take 1 capsule by mouth two times a day. Refused By: SALMA MOODY Reason for Refusal: Records indicate that there is a valid prescription at the pharmacy Neal Gomez APRN.DECISION SCIENCE ANALYST Prescription Refill Information The patient has been [...] 2024 6:52 AM documented in this encounter [facility] 08-29-2024 Telephone encounter Note Prescription Refill Information [...] Moody LPN August 29, 2024 6:52 AM [facility] 08-16-2024 History of Present illness Narrative BARIATRIC [...] updated and completed. documented in this encounter [facility] 08-16-2024 Note [facility] SURGICAL WEIGHT LOSS MANAGEMENT PROGRAM [...] information? Yes Completed by: Tommy Fink MA [facility] 07-14-2024 History of Present illness Narrative [facility] SURGICAL WEIGHT LOSS MANAGEMENT PROGRAM SUPERVISED DIET [...] Weight: 277 lb 6.4 oz (126 kg) [place] Body Weight: 131 lb (59.4 kg) Initial [...] information? Yes Completed by: Roxi Sunshine MA [facility] SURGICAL WEIGHT LOSS MANAGEMENT PROGRAM [...] ANKLE SURGERY Left 2005 x 2 - [place] CHOLECYSTECTOMY 2014 FACIAL SURGERY (HISTORICAL) 2019 several for MRSA HYSTERECTOMY 2016 [place] SINUS SURGERY 2000 [place] TONSILLECTOMY 1987 [facility] TUMOR EXCISION 2014 Lipoma of abdomen Family [...] (126 kg) Initial BMI: Initial BMI: 47.61 [place] Body Weight: [place] Body Weight: 131 lb (59.4 kg) Excess [...] DIET HISTORY FORM with patient (located in Sales Account Specialist) Her diet contains adequate amounts of protein, [...] updated and completed. documented in this encounter [facility] 06-30-2024 Telephone encounter Note Spoke with this patient, she has been scheduled with NK on 07/14. D/E 1 of 6 [facility] 06-30-2024 Miscellaneous Notes Spoke with this patient, [...] completed. EGD order placed and routed to legal recovery specialist. I have recommended proceeding with the evaluation and work-up for the primary procedure as outlined below: Dr. Winters PATIENT SUMMARY Salma Browning 48 y.o. female with Body mass index is 46.24 kg/m . Laparoscopic Eli-en-Y Gastric Bypass and Laparoscopic Liver Biopsy DM[] HTN[x] TRINA[] GERD[x] HL[] OA[x] Date of Surgery: TBD Susan Baileysimba INITIAL TESTING RESULTS Labwork [x] CMP, TSH, [...] MD as Surgeon (General Surgery) Initial New [facility] surgical patient Navigation & Financial Counseling [...] [] YES [] NO PRIMARY INSURANCE: Payor: [facility] MEDICAID / Plan: [facility] MEDICA[employer] ODM / Product Type: Medicaid HMO [...] 1) Scheduled at new pt surgeon visit: Hoister (RD) for a Nutrition Assessment (BNA) and [...] and after surgery. documented in this encounter [facility] 06-29-2024 Telephone encounter Note Patient left vmail that she is still interested in surgery and would like to schedule an appointment. Please call her to schedule a de visit- this will now be de 1 of 6. [facility] 06-29-2024 Miscellaneous Notes Patient left vmail that [...] completed. EGD order placed and routed to legal recovery specialist. I have recommended proceeding with the evaluation [...] MD as Surgeon (General Surgery) Initial New [facility] surgical patient Navigation & Financial Counseling [...] [] YES [] NO PRIMARY INSURANCE: Payor: [facility] MEDICAID / [facility] / Product Type: Medicaid HMO [...] 1) Scheduled at new pt surgeon visit: Hoister (RD) for a Nutrition Assessment (BNA) and [...] and after surgery. documented in this encounter [facility] 05-25-2024 Telephone encounter Note The following approved [...] two times a day. Neal Gomez APRN.CNP [facility] 05-25-2024 Miscellaneous Notes The following approved medication [...] 2024 3:32 PM documented in this encounter [facility] 05-24-2024 Telephone encounter Note Prescription Refill Information [...] Dozier LPN May 24, 2024 3:32 PM [facility] 05-24-2024 Telephone encounter Note The following approved medication requests have been transmitted electronically. Requested Prescriptions Pending Prescriptions Disp Refills PARoxetine (PAXIL) 40 mg tablet 30 tablet 5 Sig: Take 1 tablet by mouth once daily. tiZANidine (ZANAFLEX) 4 mg tablet 30 tablet 5 Sig: Take 1 tablet by mouth once daily. Neal Gomez APRN.NORI [facility] 05-24-2024 Miscellaneous Notes The following approved medication [...] 2024 12:40 PM documented in this encounter [facility] 05-24-2024 Telephone encounter Note Prescription Refill Information [...] Dozier LPN May 24, 2024 12:40 PM [facility] 05-02-2024 Telephone encounter Note Lvm for return call to see if pt still interested in program. Has not been seen for de in almost 2 months. [facility] 05-02-2024 Miscellaneous Notes Lvm for return call [...] completed. EGD order placed and routed to legal recovery specialist. I have recommended proceeding with the evaluation and work-up for the primary procedure as outlined below: Dr. Winters PATIENT SUMMARY Salma Nam 48 y.o. female with Body mass index is 46.24 kg/m . Laparoscopic Eli-en-Y Gastric Bypass and Laparoscopic Liver Biopsy DM[] HTN[x] TRINA[] GERD[x] HL[] OA[x] Date of Surgery: TBD Susan [facility]ileysim[facility] INITIAL TESTING RESULTS Labwork [x] CMP, TSH, [...] MD as Surgeon (General Surgery) Initial New [facility] surgical patient Navigation & Financial Counseling [...] 1) Scheduled at new pt surgeon visit: Hoister (RD) for a Nutrition Assessment (BNA) and [...] and after surgery. documented in this encounter [facility] 04-10-2024 Telephone encounter Note Please call patient to schedule her d/e that she missed in March. Thanks! [facility] 04-10-2024 Miscellaneous Notes Please call patient to schedule her d/e that she missed in March. Thanks! PRE-OP CHECKLIST SCANNED ORDERS MAILED Addended by: MARY VAZ on: 01/14/2024 09:03 AM Modules accepted: Orders Orders signed. Checklist completed. EGD order placed and routed to legal recovery specialist. I have recommended proceeding with the evaluation and work-up for the primary procedure as outlined below: Dr. Winters PATIENT SUMMARY Salmastarla Browning 48 y.o. female with Body mass index is 46.24 kg/m . Laparoscopic Eli-en-Y Gastric Bypass and Laparoscopic Liver Biopsy DM[] HTN[x] TRINA[] GERD[x] HL[] OA[x] Date of Surgery: TBD [facility] INITIAL TESTING RESULTS Labwork [x] CMP, [...] MD as Surgeon (General Surgery) Initial New [facility] surgical patient Navigation & Financial Counseling [...] 1) Scheduled at new pt surgeon visit: Hoister (RD) for a Nutrition Assessment (BNA) and [...] and after surgery. documented in this encounter [facility] 03-14-2024 History of Present illness Narrative Radiology [...] PATIENT PRESENTS WITH AN IMPLANTABLE OR ATTACHED TRESTLE MECHANIC: No RADIOLOGY DEPARTMENT: General X-ray: Exam(s) Completed: Chest X-Ray PERIPHERAL IV DATA: Not applicable SIGNED BY: RT Maria Eugenia(Ellyn) March 14, 2024 10:51 AM documented in this encounter [facility] 03-14-2024 Note HNO ID: [id number] Author: AAYUSH DOZIER RT(R) Service: Radiology Author [...] PATIENT PRESENTS WITH AN IMPLANTABLE OR ATTACHED TRESTLE MECHANIC: No RADIOLOGY DEPARTMENT: General X-ray: Exam(s) Completed: Chest X-Ray PERIPHERAL IV DATA: Not applicable SIGNED BY: RT Maria Eugenia(Ellyn) March 14, 2024 10:51 AM [facility] 03-14-2024 Note HNO ID: [id number] Author: JOHN NIEVES PA Service: ? Author Type: Physician Materials Buyer Type: Progress Notes Filed: 03/14/2024 11:10 Note Text: This note was created using MOVL. Subjective Salma Browning is a 49 year [...] of COPD or asthma. She has taken ikiw-cln-jszypjh medications without improvement in symptoms. She has [...] IMPLANT 12/06/09 Performed by KATHI POWELL at [facility] RPR DISLOC PERONEAL TENDON W/O FIBULAR OSTEOTOMY 12/06/09 Performed by KATHI POWELL at [facility] SIGMOIDOSCOPY FLX DX W/COLLJ SPEC BR/WA [...] ?C (98.1 ?F) (more content not included)... [facility] 03-14-2024 History of Present illness Narrative This note was created using MOVL. Subjective Salma Browning is a 49 year [...] of COPD or asthma. She has taken empx-con-ivvnnyj medications without improvement in symptoms. She has [...] IMPLANT 12/06/09 Performed by KATHI POWELL at [facility] RPR DISLOC PERONEAL TENDON W/O FIBULAR OSTEOTOMY 12/06/09 Performed by KATHI POWELL at [facility] SIGMOIDOSCOPY FLX DX W/COLLJ SPEC BR/WA [...] evaluation. ADRIANE Mercado documented in this encounter [facility] 03-10-2024 Hospital Discharge instructions Nate Winters MD [...] Care Everywhere.Moderate Sedation in Adults Discharge Instructions (Ghanaian)Upper GI Endoscopy Discharge Instructions (Ghanaian)documented in this encounter [facility] 03-10-2024 Note Patient: Salma Browning Procedure Summary Date: 03/10/24 Room / Location: [address] Gastroenterology Anesthesia Start: 1000 Anesthesia Stop: [...] once all PACU criteria has been met. [facility] 03-10-2024 Note Patient: Salma Browning Procedure Summary Date: 03/10/24 Room / Location: [address] Gastroenterology Anesthesia Start: 999 Anesthesia Stop: [...] opportunity for questions and acknowledgement of understanding. [facility] 03-10-2024 Note Patient: Salma Browning Procedure Information Date/Time: 03/10/24 1020 Procedure: ESOPHAGOGASTRODUODENOSCOPY WITH BIOPSY - THIS CASE REQUIRES 20 MINS Location: [place] [address] / [facility] Gastroenterology Providers: Nate Winters MD Relevant Problems [...] Comment: several for MRSA 2016: HYSTERECTOMY Comment: [place] 1999: SINUS SURGERY Comment: [place] 1987: TONSILLECTOMY Comment: [facility] 2014: TUMOR EXCISION Comment: Lipoma of abdomen [...] previous visit. Equipment Requests: Additional Equipment Requests [facility] 03-10-2024 Note Formatting of this n ote might be different from the original. [facility] Name: Salma Browning Procedure Date: 03/10/2024 9:42 AM Gender: Female Date of : 1975 Age: 49 Admit Type: Outpatient Note Status: Finalized Endoscopist: Nate Winters MD, [id number] Procedure: Upper GI endoscopy Indications: Heartburn Findings: [...] immediate complications. Procedure Code(s): --- Professional --- 50770, Esophagogastroduodenoscopy, flexible, transoral; with biopsy, single or multiple --- Technical --- 93359, Esophagogastroduodenoscopy, flexible, transoral; with biopsy, single or multiple Diagnosis Code(s): --- Professional --- K29.70, Gastritis, unspecified, without bleeding R12, Heartburn --- Technical --- K29.70, Gastritis, unspecified, without bleeding R12, Heartburn CPT copyright 2021 [employer]. All rights reserved. The codes documented in this report are preliminary and upon agency sales director review may be revised to meet current compliance requirements. Attending Participation: I personally performed the entire procedure. Nate Winters MD. Nate Winters MD 03/10/2024 10:23:38 AM This report has been signed electronically. Number of Addenda: 0 Note Initiated On: 03/10/2024 9:42 AM [facility] 03-10-2024 Note Formatting of this n ote might be different from the original. [facility] Name: Salma Browning Procedure Date: 03/10/2024 9:42 AM Gender: Female Date of : 1975 Age: 49 Admit Type: Outpatient Note Status: Finalized Endoscopist: Nate Winters MD, [id number] Procedure: Upper GI endoscopy Indications: Heartburn Findings: [...] immediate complications. Procedure Code(s): --- Professional --- 47808, Esophagogastroduodenoscopy, flexible, transoral; with biopsy, single or multiple --- Technical --- 69780, Esophagogastroduodenoscopy, flexible, transoral; with biopsy, single or multiple Diagnosis Code(s): --- Professional --- K29.70, Gastritis, unspecified, without bleeding R12, Heartburn --- Technical --- K29.70, Gastritis, unspecified, without bleeding R12, Heartburn CPT copyright 2021 [employer]. All rights reserved. The codes documented in this report are preliminary and upon agency sales director review may be revised to meet current compliance requirements. Attending Participation: I personally performed the entire procedure. Nate Winters MD. Nate Winters MD 03/10/2024 10:23:38 AM This report has been signed electronically. Number of Addenda: 0 Note Initiated On: 03/10/2024 9:42 AM [facility] 03-10-2024 Miscellaneous Notes [facility] Patient Name: Salma Browning Procedure Date: 03/10/2024 9:42 AM Gender: Female Date of : 1975 Age: 49 Admit Type: Outpatient Note Status: Finalized Endoscopist: Nate Winters MD, [id number] Procedure: Upper GI endoscopy Indications: Heartburn Findings: [...] immediate complications. Procedure Code(s): --- Professional --- 74529, Esophagogastroduodenoscopy, flexible, transoral; with biopsy, single or multiple --- Technical --- 68391, Esophagogastroduodenoscopy, flexible, transoral; with biopsy, single or multiple Diagnosis Code(s): --- Professional --- K29.70, Gastritis, unspecified, without bleeding R12, Heartburn --- Technical --- K29.70, Gastritis, unspecified, without bleeding R12, Heartburn CPT copyright 2021 [employer]. All rights reserved. The codes documented in this report are preliminary and upon agency sales director review may be revised to meet current compliance requirements. Attending Participation: I personally performed the entire procedure. Nate Winters MD. Nate Winters MD 03/10/2024 10:23:38 AM This report has been signed electronically. Number of Addenda: 0 Note Initiated On: 03/10/2024 9:42 AM documented in this encounter [facility] 03-10-2024 History and physical note Images from [...] Date ANKLE SURGERY 2005 x 2 - [place] CHOLECYSTECTOMY 2014 FACIAL SURGERY (HISTORICAL) 2019 several for MRSA HYSTERECTOMY 2016 [place] SINUS SURGERY 1999 [place] TONSILLECTOMY 1987 [facility] TUMOR EXCISION 2013 Lipoma of abdomen PFMHx: [...] Resource Strain: Medium Risk (08/11/2023) Received from [facility] Overall Financial Resource Strain (CARDIA) Difficulty of Paying Living Expenses: Somewhat hard Food Insecurity: Food Insecurity Present (08/11/2023) Received from [facility] Hunger Vital Sign Worried About Running Out of Food in the Last Year: Sometimes true Ran Out of Food in the Last Year: Sometimes true Transportation Needs: No Transportation Needs (08/11/2023) Received from [facility] PRAPARE - Transportation Lack of Transportation (Medical): No Lack of Transportation (Non-Medical): No Physical Activity: Insufficiently Active (08/11/2023) Received from [facility] Exercise Vital Sign Days of Exercise per Week: 2 days Minutes of Exercise per Session: 30 min Stress: Stress Concern Present (08/11/2023) Received from [facility] [employer] - Occupational Stress Questionnaire Feeling of Stress : Rather much Social Connections: Socially Isolated (08/11/2023) Received from [facility] Social Connection and Isolation Panel [NHANES] Frequency of Communication with Friends and Family: Three times a week Frequency of Social Gatherings with Friends and Family: Once a week Attends Mormonism Services: Never Active Member of Clubs or [...] understanding and willingness to proceed with plan. [place] Work Phone: 03-10-2024 Note Endoscopy History an [...] Date ANKLE SURGERY 2005 x 2 - [place] CHOLECYSTECTOMY 2014 FACIAL SURGERY (HISTORICAL) 2019 several for MRSA HYSTERECTOMY 2016 [place] SINUS SURGERY 1999 [place] TONSILLECTOMY 1986 [facility] TUMOR EXCISION 2014 Lipoma of abdomen [...] Resource Strain: Medium Risk (08/11/2023) Received from [facility] Overall Financial Resource Strain (CARDIA) Difficulty of Paying Living Expenses: Somewhat hard Food Insecurity: Food Insecurity Present (08/11/2023) Received from [facility] Hunger Vital Sign Worried About Running Out of Food in the Last Year: Sometimes true Ran Out of Food in the Last Year: Sometimes true Transportation Needs: No Transportation Needs (08/11/2023) Received from [facility] PRAPARE - Transportation Lack of Transportation (Medical): No Lack of Transportation (Non-Medical): No Physical Activity: Insufficiently Active (08/11/2023) Received from [facility] Exercise Vital Sign Days of Exercise per Week: 2 days Minutes of Exercise per Session: 30 min Stress: Stress Concern Present (08/11/2023) Received from [facility] [employer] - Occupational Stress Questionnaire Feeling of Stress : Rather much Social Connections: Socially Isolated (08/11/2023) Received from [facility] Social Connection and Isolation Panel [NHANES] Frequency of Communication with Friends and Family: Three times a week Frequency of Social Gatherings with Friends and Family: Once a week Attends Mormonism Services: Never Active Member of Clubs or [...] states an underst (more content not included)... [facility] 03-10-2024 History and physical note Images [...] Date ANKLE SURGERY 2005 x 2 - [place] CHOLECYSTECTOMY 2014 FACIAL SURGERY (HISTORICAL) 2019 several for MRSA HYSTERECTOMY 2016 [place] SINUS SURGERY 1999 [place] TONSILLECTOMY 1987 [facility] TUMOR EXCISION 2014 Lipoma of abdomen [...] Resource Strain: Medium Risk (08/11/2023) Received from [facility] Overall Financial Resource Strain (CARDIA) Difficulty of Paying Living Expenses: Somewhat hard Food Insecurity: Food Insecurity Present (08/11/2023) Received from [facility] Hunger Vital Sign Worried About Running Out of Food in the Last Year: Sometimes true Ran Out of Food in the Last Year: Sometimes true Transportation Needs: No Transportation Needs (08/11/2023) Received from [facility] PRAPARE - Transportation Lack of Transportation (Medical): No Lack of Transportation (Non-Medical): No Physical Activity: Insufficiently Active (08/11/2023) Received from [facility] Exercise Vital Sign Days of Exercise per Week: 2 days Minutes of Exercise per Session: 30 min Stress: Stress Concern Present (08/11/2023) Received from [facility] [employer] - Occupational Stress Questionnaire Feeling of Stress : Rather much Social Connections: Socially Isolated (08/11/2023) Received from [facility] Social Connection and Isolation Panel [NHANES] Frequency of Communication with Friends and Family: Three times a week Frequency of Social Gatherings with Friends and Family: Once a week Attends Mormonism Services: Never Active Member of Clubs or [...] proceed with plan. documented in this encounter [facility] 02-22-2024 Telephone encounter Note The following approved medication requests have been transmitted electronically. Requested Prescriptions Pending Prescriptions Disp Refills rizatriptan (MAXALT) 10 mg tablet 6 tablet 5 Sig: Take 1 tablet (10 mg) by mouth as needed for migraine headache (see administration instructions). Neal Gomez APRN.NORI [facility] 02-22-2024 Telephone encounter Note The following approved medication requests have been transmitted electronically. Requested Prescriptions Pending Prescriptions Disp Refills omeprazole (PRILOSEC) 40 mg capsule 60 capsule 5 Sig: Take 1 capsule by mouth two times a day. Neal Gomez APRN.CNP [facility] 02-22-2024 Miscellaneous Notes The following approved medication [...] 2024 7:16 AM documented in this encounter [facility] 02-22-2024 Miscellaneous Notes The following approved medication [...] 2024 7:15 AM documented in this encounter [facility] 02-22-2024 Telephone encounter Note Prescription Refill Information [...] Moody LPN February 22, 2024 7:16 AM [facility] 02-22-2024 Telephone encounter Note Prescription Refill Information [...] Moody LPN February 22, 2024 7:15 AM [facility] 02-11-2024 History of Present illness Narrative [facility] SURGICAL WEIGHT LOSS MANAGEMENT PROGRAM [...] Weight: 271 lb 3.2 oz (123 kg) [place] Body Weight: 131 lb (59.4 kg) Initial [...] information? Yes Completed by: Roxi Sunshine MA [facility] SURGICAL WEIGHT LOSS MANAGEMENT PROGRAM [...] Date ANKLE SURGERY 2005 x 2 - [place] CHOLECYSTECTOMY 2014 FACIAL SURGERY (HISTORICAL) 2019 several for MRSA HYSTERECTOMY 2016 [place] SINUS SURGERY 1999 [place] TONSILLECTOMY 1987 [facility] TUMOR EXCISION 2013 Lipoma of abdomen Family [...] (123 kg) Initial BMI: Initial BMI: 46.55 [place] Body Weight: [place] Body Weight: 131 lb (59.4 kg) Excess [...] DIET HISTORY 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 [id number] (FIORICET) 50-300-40 MG CAPSULE Take 1 capsule [...] updated and completed. documented in this encounter [facility] 01-26-2024 Telephone encounter Note The following approved [...] times a day. Neal Gomez APRN.NORI T [facility] 01-26-2024 Miscellaneous Notes The following approved medication [...] 2024 7:55 AM documented in this encounter [facility] 01-26-2024 Telephone encounter Note Prescription Refill Information [...] Santiago LPN January 26, 2024 7:55 AM [facility] 01-14-2024 Telephone encounter Note PRE-OP CHECKLIST SCANNED ORDERS MAILED [facility] 01-14-2024 Miscellaneous Notes PRE-OP CHECKLIST SCANNED ORDERS MAILED Addended by: MARY VAZ on: 01/14/2024 09:03 AM Modules accepted: Orders Orders signed. Checklist completed. EGD order placed and routed to legal recovery specialist. I have recommended proceeding with the evaluation [...] MD as Surgeon (General Surgery) Initial New [facility] surgical patient Navigation & Financial Counseling [...] [] YES [] NO PRIMARY INSURANCE: Payor: [facility] MEDICAID / Plan: [facility] MEDICAID ODM / Product Type: Medicaid HMO [...] 1) Scheduled at new pt surgeon visit: Hoister (RD) for a Nutrition Assessment (BNA) and [...] and after surgery. documented in this encounter [facility] 01-14-2024 Note Addended by: MARY EDGE on: 01/14/2024 09:03 AM Modules accepted: Orders [facility] 01-14-2024 Note Addended by: MARY EDGE on: 01/14/2024 09:03 AM Modules accepted: Orders [facility] 01-14-2024 Note Addended by: MARY EDGE on: 01/14/2024 09:03 AM Modules accepted: Orders T [facility] 01-14-2024 Note Addended by: MARY EDGE on: 01/14/2024 09:03 AM Modules accepted: Orders [facility] 01-14-2024 Note Addended by: MARY EDGE on: 01/14/2024 09:03 AM Modules accepted: Orders T [facility] 01-14-2024 Note Addended by: MARY EDGE on: 01/14/2024 09:03 AM Modules accepted: Orders T [facility] 01-14-2024 Note Addended by: MARY EDGE on: 01/14/2024 09:03 AM Modules accepted: Orders [facility] 01-14-2024 Telephone encounter Note Orders signed. Checklist completed. EGD order placed and routed to legal recovery specialist. [facility] 01-14-2024 History of Present illness Narrative ENDOSCOPY ORDERS To be scheduled with: Dr. Winters Patient is: Pre-op/Pre-Bariatric Surgery CPT code: EGD with biopsy- CPT 07452 Diagnosis: GERD- K21.9 If pre-op, Diet & [...] prior to scheduling documented in this encounter [facility] 01-14-2024 History of Present illness Narrative ENDOSCOPY ORDERS To be scheduled with: Dr. Winters Patient is: Pre-op/Pre-Bariatric Surgery CPT code: EGD with biopsy- CPT 52195 Diagnosis: GERD- K21.9 If pre-op, Diet & [...] to scheduling Printed documented in this encounter [facility] 01-14-2024 History of Present illness Narrative ENDOSCOPY ORDERS To be scheduled with: Dr. Winters Patient is: Pre-op/Pre-Bariatric Surgery CPT code: EGD with biopsy- CPT 05178 Diagnosis: GERD- K21.9 If pre-op, Diet & [...] and schedule EGD. documented in this encounter [facility] 01-14-2024 History of Present illness Narrative ENDOSCOPY ORDERS To be scheduled with: Dr. Winters Patient is: Pre-op/Pre-Bariatric Surgery CPT code: EGD with biopsy- CPT 71816 Diagnosis: GERD- K21.9 If pre-op, Diet & [...] is scheduled for EGD with biopsy- CPT 22308 on March 10, 2024 at 10:20 am. Contact attempts- 3 must be made in 2 different forms. Discussed with patient via phone and sent [employer] message after confirming pt active on [employer] Important info discussed as applicable: Is patient [...] Notes: No Auth Required for CPT Code 14922 documented in this encounter [facility] 01-14-2024 History of Present illness Narrative ENDOSCOPY ORDERS To be scheduled with: Dr. Winters Patient is: Pre-op/Pre-Bariatric Surgery CPT code: EGD with biopsy- CPT 07319 Diagnosis: GERD- K21.9 If pre-op, Diet & [...] 1 week prior to procedure Brand name Bytheresa- daily injectable and just needs held 1 day before procedure Blood thinners: Aspirin Xarleto (rivaroxaban) Eliquis (apixaban) Plavix (clopidogrel) Warfarin/Jantoven (coumadin) Brillinta (ticagrelor) Pradaxa (dabigatran) If endoscopy is scheduled within 17 days authorization will need to be obtained prior to scheduling Printed Left for patient to call and schedule EGD. Patient is scheduled for EGD with biopsy- CPT 58635 on March 10, 2024 at 10:20 am. Contact attempts- 3 must be made in 2 different forms. Discussed with patient via phone and sent [employer] message after confirming pt active on [employer] Important info discussed as applicable: Is patient [...] the prescribing provider Auth required: No Insurance: [facility] MEDICAID I Notes: No Auth Required for CPT Code 98350 Call to pt for reminder call regarding [...] the prescribing provider documented in this encounter [facility] 01-14-2024 Note Call to pt for remin [...] holding this medication with the prescribing provider [facility] 01-14-2024 Note I have recommended p [...] Nate Winters MD as Surgeon (General Surgery) [facility] 01-14-2024 Telephone encounter Note I have [...] Winters MD as Surgeon (General Surgery) T [facility] 01-12-2024 Note Patient Outreach (IN TMMN) ---- SALMA BROWNING ([id number]) 1975 F CHT Date Time Provider Department 01/12/24 SUSAN SEVILLA During your visit today, we recorded the following information about you: Allergies As of Date: 01/12/2024 Noted Allergy Reaction BUPROPION 12/30/2007 9 - Itching Date Reviewed: 12/13/2023 Reviewed by: Adia Diana MA - Fully Assessed Visit Diagnosis:Encounter for screening mammogram for breast cancer [Z12.31] Order(s):[facility] SCREENING W ASHLEY [[id number]] Order #: [id number] FUTURE Prescriptions as of 01/17/2024 - lisinopril [...] malleolus [S82.63XA] 09/03/2008 02/08/2013 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 [facility] 01-04-2024 Telephone encounter Note Initial New [facility] surgical patient Navigation & Financial Counseling [...] [] YES [] NO PRIMARY INSURANCE: Payor: [facility] MEDICAID / Plan: [facility] MEDICAID ODM / Product Type: Medicaid HMO [...] 1) Scheduled at new pt surgeon visit: Hoister (RD) for a Nutrition Assessment (BNA) and [...] lab/testing results before and after surgery. [facility] 01-04-2024 History of Present illness Narrative BARIATRIC AND METABOLIC SURGERY [facility] INITIAL EVALUATION - HISTORY AND [...] Date ANKLE SURGERY 2005 x 2 - [place] CHOLECYSTECTOMY 2014 FACIAL SURGERY (HISTORICAL) 2019 several for MRSA HYSTERECTOMY 2016 [place] S[facility]US SURGERY 1999 [place] TONSILLECTOMY 1987 [facility] TUMOR EXCISION 2014 Lipoma of abdomen Family [...] TABLET Take 50 mg by mouth daily. [id number]-[id number]-VRIIBTXH (FIORICET) 50-300-40 MG CAPSULE Take 1 capsule [...] HL[] OA[x] Date of Surgery: TBD Susan Baileysimba INITIAL TESTING RESULTS Labwork [x] CMP, TSH, [...] Nate Winters MD as Surgeon (General Surgery) [facility] SURGICAL WEIGHT LOSS MANAGEMENT PROGRAM [...] Fátima Marin LPN documented in this encounter [facility] 01-04-2024 Note BARIATRIC AND METABO LIC SURGERY [facility] INITIAL EVALUATION - HISTORY AND PHYSICAL 01/04/2024 [...] Date ANKLE SURGERY 2005 x 2 - [place] CHOLECYSTECTOMY 2014 FACIAL SURGERY (HISTORICAL) 2020 several for MRSA HYSTERECTOMY 2016 [place] SINUS SURGERY 2000 [place] TONSILLECTOMY 1987 [facility] TUMOR EXCISION 2014 Lipoma of abdomen Family [...] TABLET Take 50 mg by mouth daily. [id number]-[id number]-NMMYFTEJ (FIORICET) 50-300-40 MG CAPSULE Take 1 capsule [...] 5' 4 (1. (more content not included)... [facility] 12-13-2023 Note HNO ID: [id number] Author: OKSANA KENNEY PA-C Service: ? Author Type: Physician Materials Buyer Type: Progress Notes Filed: 12/13/2023 14:39 Note Text: Oksana Kenney PA-C Department of Orthopaedics Orthopaedics [address] [facility] [address] Dept: [phone] Dept December 13, 2023 CHIEF COMPLAINT: Follow [...] her right knee. She was seen at [facility], placed in a knee immobilizer and [...] meet with a weight loss surgeon in [facility] to discuss her options. ASSESSMENT: M17.0 Primary [...] knee joint Informed Consent Consent Obtained: Verbal Sibley Protocol A moment to CARE was completed. [...] for. Post-procedure f (more content not included)... [facility] 12-13-2023 History of Present illness Narrative Associated Order(s): Large Joint Arthro/Inj: R knee joint Post-Procedure Diagnose(s): Primary osteoarthritis of both knees; Acute pain of right knee Oksana Kenney PA-C Department of Orthopaedics Orthopaedics [address] [facility] [address] Dept: [phone] Dept December 13, 2023 CHIEF COMPLAINT: Follow [...] her right knee. She was seen at [facility], placed in a knee immobilizer and [...] meet with a weight loss surgeon in [facility] to discuss her options. ASSESSMENT: M17.0 Primary [...] knee joint Informed Consent Consent Obtained: Verbal Sibley Protocol A moment to CARE was completed. [...] of Care Visit completed when applicable Imaging: [facility] November 29, 2023 Right knee x-rays [...] IMPLANT Comment: Performed by KATHI POWELL at [facility] 12/06/09: RPR DISLOC PERONEAL TENDON W/O FIBULAR OSTEOTOMY Comment: Performed by KATHI POWELL at [facility] 06/2004: SIGMOIDOSCOPY FLX DX W/COLLJ SPEC [...] anxiety) This note was partially generated using [employer] voice recognition system, and there may be [...] a pop in her knee. Seen at [facility] ED. She was given a knee immobilizer and crutches. She was unable to wear the immobilizer. She is having difficulty going up steps. She has to pull herself up the steps. Taking Celebrex for the pain and does not help. documented in this encounter [facility] 12-13-2023 Note HNO ID: [id number] Author: ADIA DIANA MA Service: ? Author Type: Hydraulic Design Engineer Type: Progress Notes Filed: 12/13/2023 14:39 Note [...] a pop in her knee. Seen at [facility] ED. She was given a knee immobilizer and crutches. She was unable to wear the immobilizer. She is having difficulty going up steps. She has to pull herself up the steps. Taking Celebrex for the pain and does not help. [facility] 12-10-2023 Note HNO ID: [id number] Author: ALVIN MCINTOSH LISW Service: ? Author Type: Coupon Manifest Clerk Type: Progress Notes Filed: 12/10/2023 08:28 Note Text: Behavioral Health Social Work Progress Note Patient identified for [facility] from: PCP Reason for referral: [facility] Assessment [facility] encounter type: riskmethodshart Message Attempts to Outreach: 3 attempts Referral made: Psychiatry - Internal Psychiatry-Internal referral type: Medication Management Final Disposition: Resources given Patient Discharged?: Yes Patient reported that caregiver was able to meet their needs today?: N/A Patient read SOHM message with requested resources by PCP. [facility] sent follow-up message to see if any additional questions or concerns exist and if she'd still like to schedule with Osiris Sanchez APRN.NORI. CLIFFORD Evans ACM-SW December 10, 2023 [facility] 12-10-2023 History of Present illness Narrative Behavioral Health Social Work Progress Note Patient identified for [facility] from: PCP Reason for referral: [facility] Assessment [facility] encounter type: riskmethodshart Message Attempts to Outreach: 3 attempts Referral made: Psychiatry - Internal Psychiatry-Internal referral type: Medication Management Final Disposition: Resources given Patient Discharged?: Yes Patient reported that caregiver was able to meet their needs today?: N/A Patient read SOHM message with requested resources by PCP. [facility] sent follow-up message to see if any additional questions or concerns exist and if she'd still like to schedule with Osiris Sanchez APRN.NORI. CLIFFORD Evans ACM-SW December 10, 2023 documented in this encounter [facility] 12-03-2023 Telephone encounter Note Pharmacy notified. [facility] 12-03-2023 Miscellaneous Notes Pharmacy notified. Prior authorization approved Payer: [employer] Note from payer: Your PA request for [id number] was approved for 365 days. The PA# assigned is [id number]. Approval Details Authorization number: [id number] Authorized from December 03, 2023 to December [...] to its destination. To be filled at: [facility] [address] [place] [id number] - [address] [place] [address] documented in this encounter [facility] 12-03-2023 Telephone encounter Note Prior authorization approved Payer: [employer] Note from payer: Your PA request for [id number] was approved for 365 days. The PA# assigned is [id number]. Approval Details Authorization number: [id number] Authorized from December 03, 2023 to December [...] to its destination. To be filled at: [facility] [address] [place] [id number] - [address] [place] [address] [facility] 12-03-2023 Telephone encounter Note Behavioral Health Social Work Progress Note Patient identified for [facility] from: PCP Reason for referral: [facility] Assessment [facility] encounter type: Telephone Encounter Attempts to Outreach: 1 attempt Referral made: Psychiatry - Internal Psychiatry-Internal referral type: Medication Management Final Disposition: Unable to reach Patient Discharged?: No Patient reported that caregiver was able to meet their needs today?: N/A [facility] consult received for anxiety. Would like to see Osiris Sanchez APRN.CNP for medication management. Phone call placed today that went to [employer]. Left my contact information and brief nature of call. Initial outreach also completed via SOHM sending list times/dates available to complete an assessment. CLIFFORD Evans, PALMA-KATIA December 03, 2023 [facility] Work Phone: 12-03-2023 Miscellaneous Notes Behavioral Health Social Work Progress Note Patient identified for [facility] from: PCP Reason for referral: [facility] Assessment [facility] encounter type: Telephone Encounter Attempts to Outreach: 1 attempt Referral made: Psychiatry - Internal Psychiatry-Internal referral type: Medication Management Final Disposition: Unable to reach Patient Discharged?: No Patient reported that caregiver was able to meet their needs today?: N/A [facility] consult received for anxiety. Would like to see Osiris Sanchez APRN.CNP for medication management. Phone call placed today that went to [employer]. Left my contact information and brief nature of call. Initial outreach also completed via SOHM sending list times/dates available to complete an assessment. CLIFFORD Evans ACM-SW December 03, 2023 documented in this encounter [facility] 12-03-2023 Instructions Mary Mcmillan APRN.CNP - 12/03/2023 1:21 PM EDT Add on Lisinopril 10 mg daily Monitor blood pressure at home, 130/80 is goal Watch salt and processed foods in the diet. Start Topamax 25 mg daily for the 1st week, then increase to twice daily Consult placed for bariatric medicine, will be faxed to Vianey Falcon's office ([facility]) Consult placed for behavioral health, you will get a phone call. They will help you schedule with Osiris JULIO (psychiatry) Keep scheduled appt with Cardiology Due for women's health exam in the next year. Follow up in 1 month for blood pressure Health Promotion: - Eat healthy -- go to [email or web address] to get started - Have a yearly [...] - Wear sunscreen documented in this encounter [facility] 12-03-2023 History of Present illness Narrative This [...] IMPLANT Comment: Performed by KATHI POWELL at [facility] 12/06/09: RPR DISLOC PERONEAL TENDON W/O FIBULAR OSTEOTOMY Comment: Performed by KATHI POWELL at [facility] 06/2004: SIGMOIDOSCOPY FLX DX W/COLLJ SPEC [...] APRN.CNP This note was partially generated using [employer] voice recognition system. Note was reviewed for accuracy. There may be minor misspellings or grammar miscues with [employer] voice recognition. documented in this encounter [facility] 12-03-2023 Note HNO ID: [id number] Author: MARY MCMILLAN APRN.CNP Service: ? Author Type: Nurse Practitioner Type: Progress Notes Filed: 12/03/2023 14:54 Note Text: This is a 48 year old female who presents today with: Patient presents with: Wellness HISTORY OF PRESENT ILLNESS: Samla Browning is a 48 year old female. [...] at least once daily. Has appt with [facility] next for further evaluation. Lasting [...] IMPLANT Comment: Performed by KATHI POWELL at [facility] 12/06/09: RPR DISLOC PERONEAL TENDON W/O FIBULAR OSTEOTOMY Comment: Performed by KATHI POWELL at [facility] 06/2004: SIGMOIDOSCOPY FLX DX W/COLLJ SPEC [...] 200 mg ca (more content not included)... [facility] 10-27-2023 Telephone encounter Note Noted, thank you. Mary Mcmillan APRN.NORI [facility] 10-27-2023 Miscellaneous Notes Noted, thank you. Mary [...] Mary Mcmillan APRN.CNP documented in this encounter [facility] 10-27-2023 Telephone encounter Note Patient notified of results. Patient verbalizes understanding. Patient states that the steroid has helped and cough has improved greatly. Swetha Florentino RN [facility] 10-27-2023 Telephone encounter Note Phoned patient left message to return call and ask to speak to a nurse for results. [facility] 10-27-2023 Telephone encounter Note Can you please [...] consult with pulmonology. Thank you. Mary Mcmillan APRN.DECISION SCIENCE ANALYST [facility] 10-25-2023 History of Present illness Narrative Radiology [...] PATIENT PRESENTS WITH AN IMPLANTABLE OR ATTACHED TRESTLE MECHANIC: No ALLERGIES: Reviewed and unchanged CONTRAST ALLERGY: [...] TIME: 4:12 PM documented in this encounter [facility] 10-21-2023 Telephone encounter Note Patient notified of results, verbalizes understanding of instructions. Rozina Santiago LPN [facility] 10-21-2023 Miscellaneous Notes Patient notified of results, [...] Mary Mcmillan APRN.CNP documented in this encounter [facility] 10-21-2023 Telephone encounter Note Can you please [...] any additional questions. Thank you. Mary Mcmillan APRN.DECISION SCIENCE ANALYST [facility] 10-20-2023 History of Present illness Narrative Radiology [...] PATIENT PRESENTS WITH AN IMPLANTABLE OR ATTACHED TRESTLE MECHANIC: No RADIOLOGY DEPARTMENT: General X-ray: Exam(s) Completed: Chest X-Ray PERIPHERAL IV DATA: Not applicable SIGNED BY: RT Maria Eugenia(R) October 20, 2023 1:29 PM documented in this encounter [facility] 10-20-2023 Telephone encounter Note The following approved medication requests have been transmitted electronically. Requested Prescriptions Pending Prescriptions Disp Refills tiZANidine (ZANAFLEX) 4 mg tablet 30 tablet 5 Sig: Take 1 tablet by mouth once daily. Mary Mcmillan APRN.CNP [facility] 10-20-2023 Miscellaneous Notes The following approved medication requests have been transmitted electronically. Requested Prescriptions Pending Prescriptions Disp Refills tiZANidine (ZANAFLEX) 4 mg tablet 30 tablet 5 Sig: Take 1 tablet by mouth once daily. Mary Mcmillan APRN.CNP Insurance notified office does not cover tizanidine capsule only tablets. Please re-send alternative Iliana Carney MA documented in this encounter [facility] 10-20-2023 Instructions Mary Mcmillan APRN.CNP - 10/20/2023 [...] sooner as needed. documented in this encounter [facility] 10-20-2023 History of Present illness Narrative This [...] IMPLANT 12/06/09 Performed by KATHI POWELL at [facility] RPR DISLOC PERONEAL TENDON W/O FIBULAR OSTEOTOMY 12/06/09 Performed by KATHI POWELL at [facility] SIGMOIDOSCOPY FLX DX W/COLLJ SPEC BR/WA [...] palpable. Neurologic: Gait normal. Sensation grossly intact. [place] pike + right side. ASSESSMENT/PLAN: 1. [...] APRN.NORI This note was partially generated using [employer] voice recognition system. Note was reviewed for accuracy. There may be minor misspellings or grammar miscues with [employer] voice recognition. documented in this encounter [facility] 10-20-2023 Telephone encounter Note Insurance notified office does not cover tizanidine capsule only tablets. Please re-send alternative Iliana Carney MA [facility] 10-19-2023 Telephone encounter Note Pt notified. Beena Garcia MA [facility] 10-19-2023 Miscellaneous Notes Pt notified. Beena Garcia [...] coughing. faxed consult and test results to [facility]. Pt will call Wednesday to schedule. Beena [...] test results will be faxed over to [facility] Wednesday morning. She should be [...] verbalizes understanding. 1)Pt willing to go to [facility] and hoping you can [...] able to get her in sooner at [facility] at [facility]. If she she would like to go to [facility] please let me know. Mary Mcmillan APRN.NORI Phoned patient went over results, notes from Mary Mcmillan RIFLE CASE REPAIRER with understanding. Patient said she is still [...] Mary Mcmillan APRN.CNP documented in this encounter [facility] 10-18-2023 Telephone encounter Note TC to pt. LM to call office, ask for triage nurse to get results. Rozina Santiago LPN [facility] 10-18-2023 Telephone encounter Note The following approved medication requests have been transmitted electronically. Requested Prescriptions Pending Prescriptions Disp Refills PARoxetine (PAXIL) 20 mg tablet 30 tablet 2 Sig: Take 1 tablet by mouth once daily. Take with additional 40 mg tablet. Mary Mcmillan APRN.CNP [facility] 10-18-2023 Miscellaneous Notes The following approved medication [...] 2023 8:15 AM documented in this encounter [facility] 10-18-2023 Telephone encounter Note Prescription Refill Information [...] Moody LPN October 18, 2023 8:15 AM [facility] 10-18-2023 Telephone encounter Note Robitussin Cough Syrups work very well for cough. Mary Mcmillan APRN.DECISION SCIENCE ANALYST [facility] 10-15-2023 Telephone encounter Note Pt notified. She is asking for something else to be called in for her cough. States that the Tessalon perles are not helping, she is still up all night coughing. faxed consult and test results to [facility]. Pt will call Wednesday to . Beena Garcia MA [facility] 10-15-2023 Telephone encounter Note Can you please call the patient back and let her know that I sent in a prescription for azithromycin, if her cough does not improve in the next 10 days I would like her to reach out to the office. I can order a chest x-ray. Consult and test results will be faxed over to [facility] Wednesday morning. She should be able to call them later Wednesday to schedule appointment. The following approved medication requests have been transmitted electronically. Requested Prescriptions Signed Prescriptions Disp Refills azithromycin (ZITHROMAX Z-SHAHIDA) 250 mg tablet 6 tablet 0 Sig: Take 2 tablets day one, then, 1 tablet daily until gone. Authorizing Provider: MARY MCMILLAN APRN.NORI [facility] 10-15-2023 Telephone encounter Note Spoke with pt and information listed below given. Pt verbalizes understanding. 1)Pt willing to go to [facility] and hoping you can get her in sooner. 2)Pt wanted you to know she is still sick with cough. She has been on ATB and nothing is helping. She was seen in office on 09-15-23 then [facility] Please advise. Pharmacy updated. Albania Peacock LPN [facility] 10-15-2023 Telephone encounter Note TC to pt. LM to call office, ask for triage nurse to get results. Rozina Santiago LPN [facility] 10-15-2023 Telephone encounter Note The monitor results looked normal when looking at the report. I know she will be seeing cardiology but not until March. I may be able to get her in sooner at [facility] at [facility]. If she she would like to go to [facility] please let me know. Mary Mcmillan APRN.NORI [facility] 10-14-2023 Telephone encounter Note Phoned patient went over results, notes from Mary Mcmillan RIFLE CASE REPAIRER with understanding. Patient said she is still [...] she got good reading on the monitor. [facility] 10-14-2023 Telephone encounter Note Can you please call the patient and let her know that I reviewed her Zio monitor results. Monitor shows 3 episodes where her heart rate was elevated, no other abnormalities noted. Can you please ask how she has been feeling? Any ongoing dizziness or low heart rate? I would recommend she keep appointment with cardiology. Thank you. Mary Mcmillan APRN.DECISION SCIENCE ANALYST [facility] 09-28-2023 History of Present illness Narrative This note was created using [employer]. Subjective Salma Browning is a 48 year [...] IMPLANT 12/06/09 Performed by KATHI POWELL at [facility] RPR DISLOC PERONEAL TENDON W/O FIBULAR OSTEOTOMY 12/06/09 Performed by KATHI POWELL at [facility] SIGMOIDOSCOPY FLX DX W/COLLJ SPEC BR/WA [...] evaluation. ADRIANE Mercado documented in this encounter [facility] 09-15-2023 Instructions Mary Mcmillan APRN.[facility] - 09/15/2023 2:53 PM EDT Images from [...] with positional vertigo, slowly move into the [id number] position and wait for a minute. Next, [...] period of time. ADDENDUM Particle repositioning procedure: [id number] instructions The particle repositioning procedure takes about [...] LB. Jordy OLSEN. Peripheral Vestibular Disorders. In: [place] [facility], Head and Neck Surgery, 3-Volume Set. [place]; 2014. Zoila Hall. Benign Paroxysmal Positional Vertigo (BPPV): History, Pathophysiology, Office Treatment and Future Directions. International Journal of Otolaryngology. 2011;2011:006360. Ivone JS, Nicolasa ROGERS. Clinical practice. Benign paroxysmal positional vertigo. N Engl J Med. 2013Jun 22;370(12):1138-47. Bebo Madsen DD, Antoni Kee. The Head and Neck. In: Bebo Madsen DD, Antoni Kee. eds. [place] s Diagnostic Examination, 10e. [place], [place]: [facility]; 2015. Copyright 9645-3486 [facility]. All rights reserved This information is provided by the [facility] and is not intended to replace the medical advice of your doctor or health care provider. Please consult your health care provider for advice about a specific medical condition. For additional health information, please contact the Center for Consumer Health Information at the [facility] or toll-free extension [phone]. If you prefer, you may visit [email or web address] or [email or web address]. This document was last reviewed on: 2014 documented in this encounter [facility] 09-15-2023 History of Present illness Narrative This [...] IMPLANT 12/06/09 Performed by KATHI POWELL at [facility] RPR DISLOC PERONEAL TENDON W/O FIBULAR OSTEOTOMY 12/06/09 Performed by KATHI POWELL at [facility] SIGMOIDOSCOPY FLX DX W/COLLJ SPEC BR/WA [...] APRN.NORI This note was partially generated using [employer] voice recognition system. Note was reviewed for accuracy. There may be minor misspellings or grammar miscues with [employer] voice recognition. documented in this encounter [facility] 09-15-2023 Telephone encounter Note Patient returned call and went over notes below from Mary Mcmillan RIFLE CASE REPAIRER with understanding. Patient said she would call the number to inquire. [facility] 09-15-2023 Miscellaneous Notes Patient returned call and went over notes below from Mary Mcmillan RIFLE CASE REPAIRER with understanding. Patient said she would call [...] Swetha Florentino RN documented in this encounter [facility] 09-15-2023 Telephone encounter Note TC to pt. LM to call office, ask for triage nurse to get update. Rozina Santiago LPN [facility] 09-15-2023 Telephone encounter Note Can you you [...] number is Thank you. Mary Mcmillan APRN.CNP [facility] 09-14-2023 Telephone encounter Note Patient calling and [...] Please review and advise, Swetha Florentino RN [facility] 09-03-2023 Telephone encounter Note The following approved medication requests have been transmitted electronically. Requested Prescriptions Signed Prescriptions Disp Refills PARoxetine (PAXIL) 20 mg tablet 30 tablet 0 Sig: Take 1 tablet by mouth once daily. Take with additional 40 mg tablet. Mary Mcmillan APRN.CNP [facility] 09-03-2023 Miscellaneous Notes The following approved medication requests have been transmitted electronically. Requested Prescriptions Signed Prescriptions Disp Refills PARoxetine (PAXIL) 20 mg tablet 30 tablet 0 Sig: Take 1 tablet by mouth once daily. Take with additional 40 mg tablet. Mary Mcmillan APRN.CNP Patient seen 08/11/23 4 wk follow up scheduled 09/13/23 documented in this encounter [facility] 09-02-2023 Telephone encounter Note Patient seen 08/11/23 4 wk follow up scheduled 09/13/23 [facility] 08-11-2023 Instructions Mary Mcmillan APRN.CNP - 08/11/2023 [...] sooner as needed. documented in this encounter [facility] 08-11-2023 History of Present illness Narrative This [...] IMPLANT 12/06/09 Performed by KATHI POWELL at [facility] RPR DISLOC PERONEAL TENDON W/O FIBULAR OSTEOTOMY 12/06/09 Performed by KATHI POWELL at [facility] SIGMOIDOSCOPY FLX DX W/COLLJ SPEC BR/WA [...] APRN.NORI This note was partially generated using [employer] voice recognition system. Note was reviewed for accuracy. There may be minor misspellings or grammar miscues with [employer] voice recognition. documented in this encounter [facility] 07-29-2023 Telephone encounter Note Insurance does not cover any medication for weight loss. Patient was notified and advised will have to pay out of pocket. Patient ended call. Iliana Carney MA [facility] 07-29-2023 Miscellaneous Notes Insurance does not cover [...] Insurance Company Name: [employer] Pharmacy Name: [facility] Telephone number: [phone] Karishma Baker RN documented in this encounter [facility] 07-29-2023 Telephone encounter Note Patient calling and requesting Prior Authorization for her tirzepatide medication, ordered on 07/23/23 by Mary Mcmillan CNP. Please call patient with any authorization updates. Thank you. Prior authorization requested for the following medication: Medication: tirzepatide 2.5mg/0.5mL Provider: Mary Mcmillan CNP Insurance Company Name: [employer] Pharmacy Name: [facility] Telephone number: [phone] Karishma Baker RN [facility] 07-28-2023 Telephone encounter Note The following approved medication requests have been transmitted electronically. Requested Prescriptions Signed Prescriptions Disp Refills Cholecalciferol, Vitamin D3, (DIALYVITE VITAMIN D) 125 mcg (5,000 unit) cap 30 capsule 11 Sig: Take 1 capsule by mouth once daily. Authorizing Provider: MARY MCMILLAN APRN.CNP [facility] 07-28-2023 Miscellaneous Notes The following approved medication requests have been transmitted electronically. Requested Prescriptions Signed Prescriptions Disp Refills Cholecalciferol, Vitamin D3, (DIALYVITE VITAMIN D) 125 mcg (5,000 unit) cap 30 capsule 11 Sig: Take 1 capsule by mouth once daily. Authorizing Provider: MARY MCMILLAN APRN.DECISION SCIENCE ANALYST Spoke with patient. Given message from provider's [...] during office visit. Thank you. Mary Mcmillan APRN.DECISION SCIENCE ANALYST documented in this encounter [facility] 07-28-2023 Telephone encounter Note Spoke with patient. [...] Please advise. Thank you. Amber Burger RN. [facility] 07-28-2023 Telephone encounter Note TC to pt. LM to call office, ask for triage nurse to get results. Rozina Santiago LPN [facility] 07-28-2023 Telephone encounter Note Can you please [...] office visit. Thank you. Mary Mcmillan APRN.CNP [facility] 07-23-2023 History of Present illness Narrative Radiology [...] PATIENT PRESENTS WITH AN IMPLANTABLE OR ATTACHED TRESTLE MECHANIC: No RADIOLOGY DEPARTMENT: General X-ray: Exam(s) Completed: Chest X-Ray PERIPHERAL IV DATA: Not applicable SIGNED BY: RT Laurel(R) July 23, 2023 2:32 PM documented in this encounter [facility] 07-23-2023 Instructions Mary Mcmillan APRN.CNP - 07/23/2023 [...] cheese Calories: 1800 documented in this encounter [facility] 07-23-2023 History of Present illness Narrative This [...] IMPLANT 12/06/09 Performed by KATHI POWELL at [facility] RPR DISLOC PERONEAL TENDON W/O FIBULAR OSTEOTOMY 12/06/09 Performed by KATHI POWELL at [facility] SIGMOIDOSCOPY FLX DX W/COLLJ SPEC BR/WA [...] APRN.NORI This note was partially generated using [employer] voice recognition system. Note was reviewed for accuracy. There may be minor misspellings or grammar miscues with [employer] voice recognition. documented in this encounter [facility] 07-21-2023 Miscellaneous Notes Noted, thank you. Mary Mcmillan APRN.NORI Patient notified of recommendations from NORI, verbalizes understanding of instructions. Pt stated she saw paper ruler 6 months ago. Pt made appt on [...] went over notes below from Mary Mcmillan RIFLE CASE REPAIRER, patient will check with her insurance about [...] formula as Ozempic. Thank you. Mary Mcmillan APRN.DECISION SCIENCE ANALYST Patient calls to ask about trying Ozempic. She reports that Lea FORREST recommended it for weight loss to help with her knee pain/problems and told her to speak with her PCP about prescribing it. If provider is agreeable. Patient would like to have prescription sent to [facility]. Last OV: 05/14/2023 Roxana Kimball RN documented in this encounter [facility] 06-29-2023 Note HNO ID: [id number] Author: FLORENCIO FRANKLIN Tech Service: ? Author Type: Test Man Type: Progress Notes Filed: 06/29/2023 13:21 Note [...] PATIENT PRESENTS WITH AN IMPLANTABLE OR ATTACHED TRESTLE MECHANIC: No RADIOLOGY DEPARTMENT: General X-ray: Exam(s) Completed: Lower Extremity X-Ray(s): Knee, AP / Lat / Tunne / Merchant Right and Wt. Bearing PERIPHERAL IV DATA: Not applicable SIGNED BY: Yadira Perez June 29, 2023 1:20 PM [facility] 06-29-2023 History of Present illness Narrative Radiology [...] PATIENT PRESENTS WITH AN IMPLANTABLE OR ATTACHED TRESTLE MECHANIC: No RADIOLOGY DEPARTMENT: General X-ray: Exam(s) Completed: Lower Extremity X-Ray(s): Knee, AP / Lat / Tunne / Merchant Right and Wt. Bearing PERIPHERAL IV DATA: Not applicable SIGNED BY: Yadira Perez June 29, 2023 1:20 PM documented in this encounter [facility] 06-28-2023 Miscellaneous Notes OK to refill as ordered Susan Sevilla MD [facility]-05/14/23 Labs-07/31/23 NOV-12/03/23 Rozina Santiago LPN documented in this encounter [facility] 06-07-2023 Miscellaneous Notes The following approved medication [...] tablet by mouth once daily. Neal Gomez APRN.DECISION SCIENCE ANALYST [facility]-05/14/23 Labs-02/08/23Feb-12/03/23 Rozina Santiago LPN documented in this encounter [facility] 05-27-2023 Miscellaneous Notes Spoke with patient. Given message from provider's office. Patient verbalizes understanding. Transferred to [facility] for Physical Therapy appointment. Amber Burger RN [...] after 6 weeks, [place] to [place]. Neal Gomez APRN.CNP documented in this encounter [facility] 05-17-2023 Miscellaneous Notes Patient active MyChart/reviewed results via Casetext. Patient notified via S[facility] message. Swapna Argueta MA Please let the [...] Neal Gomez APRN.NORI documented in this encounter [facility] 05-14-2023 History of Present illness Narrative Radiology [...] PATIENT PRESENTS WITH AN IMPLANTABLE OR ATTACHED TRESTLE MECHANIC: No RADIOLOGY DEPARTMENT: General X-ray: Exam(s) Completed: Spine X-Ray(s): Cervical AP / LAT / OBL PERIPHERAL IV DATA: Not applicable SIGNED BY: RT Laurel(R) May 14, 2023 10:03 AM documented in this encounter [facility] 05-14-2023 Instructions Neal Gomez APRN.CNP - 05/14/2023 9:50 AM EST Get xray today Schedule MRI of neck, make sure insurance approves prior to getting Schedule appt with spine center. 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 There has been little to no improvement. [...] radiating from her neck pain. Neal Gomez APRN.DECISION SCIENCE ANALYST Medical Decision Making: Problems: Moderate: 1+ chronic illnesses with change Data: Unique test(s) ordered: 2 Risk: Moderate: Moderate risk from testing/treatment Medical Decision Making Level: 4 - Moderate This note was partly generated using [employer] voice recognition dictation and may contain some misspelled or inaccurate words missed on review. documented in this encounter [facility] 05-13-2023 Miscellaneous Notes Pt states she had seen Mary Mcmillan RIFLE CASE REPAIRER and she told her that her neck [...] Gomez NP tomorrow. documented in this encounter [facility] 03-01-2023 Miscellaneous Notes Pharmacist notified. Flexeril rx [...] 12/29/22(approved by Neal). Please call Johanna at [phone]. Ilir Herron LPN documented in this encounter [facility] 03-01-2023 Miscellaneous Notes The following approved medication [...] tablet by mouth once daily. Neal Gomez APRN.DECISION SCIENCE ANALYST documented in this encounter [facility] 02-20-2023 History of Present illness Narrative VIRTUAL VISIT PROGRESS NOTE This is a virtual visit using [facility] Zoom Video Visit. It required patient-provider interaction for the medical decision making as documented below. I have communicated my name and active licensure. The patient's identity and physical location were verified at the time of this visit. Either the patient or their legal public service representative has been informed of the risks [...] IMPLANT 12/06/09 Performed by KATHI POWELL at [facility] RPR DISLOC PERONEAL TENDON W/O FIBULAR OSTEOTOMY 12/06/09 Performed by KATHI POWELL at [facility] SIGMOIDOSCOPY FLX DX W/COLLJ SPEC BR/WA [...] Ronak Pulido DPM documented in this encounter [facility] 02-16-2023 Miscellaneous Notes [facility] Nutrition [facility] Diabetes Serv[facility] sends fax requesting recent labs and OV note within the last 6 months for pt upcoming appt with them on 02/22/23 at 1 PM. Records sent. Beena Garcia Ma documented in this encounter [facility] 02-10-2023 Miscellaneous Notes Patient scheduled. Smiley Myrick LPN documented in this encounter [facility] 12-29-2022 Miscellaneous Notes The following approved medication [...] Carmen Corrales MA documented in this encounter [facility] 12-29-2022 Miscellaneous Notes The following approved medication requests have been transmitted electronically. Requested Prescriptions Pending Prescriptions Disp Refills cyclobenzaprine (FLEXERIL) 10 mg tablet 30 tablet 1 Sig: Take 1 tablet by mouth three times daily as needed for muscle spasm. Neal Gomez APRN.DECISION SCIENCE ANALYST Patient has been identified by name and [...] Carmen Corrales MA documented in this encounter [facility] 12-25-2022 History of Present illness Narrative Radiology [...] 2022 9:31 AM documented in this encounter [facility] 12-25-2022 Miscellaneous Notes Please complete [facility] Nutrition form and fax to [facility]. Krystyna Resendez Ma documented in this encounter [facility] 12-21-[address] - 12/21/2022 [...] most days, plus 2-3 days weight resistance ([employer]row[employer] videos such as Yesika Singh or Ciara Kay) documented in this encounter [facility] 12-21-2022 History of Present illness Narrative Nutrition [...] Diet History: Breakfast - will have occ. [employer]; used to have pnb toast, Snack - [...] Initial Assess/15 min 2 units SIGNATURE: Racquel Jonhson RD PATIENT NAME: Salma Browning DATE: December 21, 2022 TIME: 9:08 AM documented in this encounter [facility] 12-09-2022 History of Present illness Narrative Patient [...] Timothy Gallegos MD documented in this encounter [facility] 12-08-2022 Miscellaneous Notes December 10, 2022 PID: [id number] Salma Browning [address] [place] [address] Dear Ms. Browning, We are pleased to [...] report will be kept on file at [facility] as part of your permanent medical record and are available for your continuing care. Thank you for allowing us to help in meeting your health care needs. Sincerely, Dr. Samuel Interpreting Radiologist [facility] (Normal over 40) documented in this encounter [facility] 12-08-2022 History of Present illness Narrative Radiology [...] 2022 9:30 AM documented in this encounter [facility] 12-04-2022 History of Present illness Narrative Melt Helper offered: Patient declines. 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 History Comments: Sexual Activity: Not Currently; Male [...] IMPLANT 12/06/09 Performed by KATHI POWELL at [facility] RPR DISLOC PERONEAL TENDON W/O FIBULAR OSTEOTOMY 12/06/09 Performed by KATHI POWELL at [facility] SIGMOIDOSCOPY FLX DX W/COLLJ SPEC BR/WA [...] external genitalia normal, normal Bartholin's glands, urethra, Harrietta's glands, no vulvar lesions, good vaginal support, [...] Yuli Claudio MD documented in this encounter [facility] 12-02-2022 Instructions Mary Mcmillan APRN.DECISION SCIENCE ANALYST - 12/02/2022 3:23 PM EDT Schedule appointments for paper ruler, women's health exam and mammogram. Continue with [...] Promotion: - Eat healthy -- go to [email or web address] to get started - Have a yearly [...] - Wear sunscreen documented in this encounter [facility] 12-02-2022 History of Present illness Narrative This [...] the diet. Would like to see a paper ruler. Exercise: Walking 1 mile three times weekly. [...] IMPLANT 12/06/09 Performed by KATHI POWELL at [facility] RPR DISLOC PERONEAL TENDON W/O FIBULAR OSTEOTOMY 12/06/09 Performed by KATHI POWELL at [facility] SIGMOIDOSCOPY FLX DX W/COLLJ SPEC BR/WA [...] diet of 1000 mg/day for under 50, 3587-3686 mg/day for 50+ - Discussed need and [...] 783.1, ICD10: R63.5 - Schedule appointment with paper ruler. - Recommend eating a well-balanced diet, decrease [...] APRN.NORI This note was partially generated using [employer] voice recognition system. Note was reviewed for accuracy. There may be minor misspellings or grammar miscues with [employer] voice recognition. documented in this encounter [facility] 11-30-2022 Miscellaneous Notes OK to refill as [...] Rozina Santiago LPN documented in this encounter [facility] 11-04-2022 History of Present illness Narrative Radiology [...] 2022 8:43 AM documented in this encounter [facility] 10-19-2022 History of Present illness Narrative Radiology [...] 2022 1:51 PM documented in this encounter [facility] 10-19-2022 History of Present illness Narrative Ray Frazier MD Department of Orthopaedics Orthopaedics [address] [facility] [address] Dept: [phone] Dept October 19, 2022 CHIEF COMPLAINT: New and Pain of the Left Knee and New and Pain of the Left Hip HPI Patient here today for left hip and knee pain x 6 months. She has cut her hours back at work due to her pain. She works at [employer]. She is a left side sleeper and is not able to lay on that side so she has resorted to sleeping on her couch. She has 6 steps into her apartment and has to use the hand rail to pull herself up the steps. New x-ray today at [facility] of both areas. ASSESSMENT: M70.62 Trochanteric [...] left hip. Left hip joint is maintained. Coke Inspector: SANDHYA Transcribe Date/Time: Oct 21 2022 7:07A [...] IMPLANT 12/06/09 Performed by KATHI POWELL at [facility] RPR DISLOC PERONEAL TENDON W/O FIBULAR OSTEOTOMY 12/06/09 Performed by KATHI POWELL at [facility] SIGMOIDOSCOPY FLX DX W/COLLJ SPEC BR/WA [...] Ray Frazier MD documented in this encounter [facility] 10-19-2022 History of Present illness Narrative Radiology [...] 2022 10:46 AM documented in this encounter [facility] 10-08-2022 Miscellaneous Notes Patient notified via mychart Ct scan ordered for left foot documented in this encounter [facility] 09-14-2022 History of Present illness Narrative Radiology [...] 2022 11:01 AM documented in this encounter [facility] 08-14-2022 Miscellaneous Notes Returned patients call regarding [...] get in sooner. Please advise patient at [phone] Dejah Lagunas LPN documented in this encounter [facility] 07-31-2022 Instructions Mary Mcmillan APRN.DECISION SCIENCE ANALYST - 07/31/2022 9:33 AM EDT Images from [...] Light white/wheat Mahnaz-Whole wheat Pumpernickel Whole wheat [place] 3 1/2 inches 2 slices 7 inches [...] Squash (winter) Green peas, cooked Ulloa beans [place], cooked 1/2 cup 1/2 cup 1/2 cup 1 medium 1/2 cup 1/2 cup 1/2 cup 1/2 cup 1/2 cup 4 6 5 3 4 3 4 7 2 1 3 1 1 2 2 1 3 trace Nuts and Seeds Almonds Peanuts [place] seeds Walnuts 1/4 cup 1/4 cup 1/4 cup 1/4 cup 3 3 3 2 1 1 1 trace Fruits Apple with skin Banana Blueberries Grapefruit [place] Pear with skin Prunes Strawberries 1 medium 1 medium 1 cup 1/2 cup 1 medium 1 medium 3 1 cup 3 2 2 1 3 4 2 4 1 1 trace 1 2 2 1 1 Vegetables, non-starchy Broccoli [place] sprouts Cabbage-green Carrot Cauliflower Green beans Kale Spinach Squash (zucchini) 1/2 cup 1/2 cup 1 cup, fresh 1/2 cup cooked 1/2 cup cooked 1/2 cup 1/2 cup 1/2 cup 1/2 cup 3 4 2 2 1 2 3 2 1 1 2 1 1 trace 1 1 1 1 Copyright 9239-8208 [facility]. All rights reserved. This information is provided by the [facility] and is not intended to replace the medical advice of your doctor or health care provider. Please consult your health care provider for advice about a specific medical condition. For additional health information, please contact the Center for Consumer Health Information at the [facility] or toll-free extension [phone]. If you prefer, you may visit [email or web address] or [email or web address]. This document was last reviewed on: 2009 index#[id number] documented in this encounter [facility] 07-31-2022 History of Present illness Narrative This [...] IMPLANT 12/06/09 Performed by KATHI POWELL at [facility] RPR DISLOC PERONEAL TENDON W/O FIBULAR OSTEOTOMY 12/06/09 Performed by KATHI POWELL at [facility] SIGMOIDOSCOPY FLX DX W/COLLJ SPEC BR/WA [...] Abs Lymph 1.00 - 4.00 k/uL 1.64 [place]% % 6.3 Abs [place] <0.87 k/uL 0.27 Eosin% % 0.0 Abs [...] APRN.CNP This note was partially generated using [employer] voice recognition system. Note was reviewed for accuracy. There may be minor misspellings or grammar miscues with [employer] voice recognition. documented in this encounter [facility] 07-30-2022 Instructions Janki Hinds APRN.CNP - 07/30/2022 10:20 AM EDT Will check labs and stool cultures Follow up tomorrow for additional imaging studies to be ordered To ER for worsening symptoms, increased pain, fevers, vomiting, decreased urine output, blood in her urine blood in her stools or dark tarry stools. documented in this encounter [facility] 07-30-2022 History of Present illness Narrative Subjective The history is provided by the patient. No speech language pathologist assistant was used. HPI Salma Browning is [...] have confirmed and edited as necessary, the [facility] Review of Systems Constitutional: Negative for [...] Janki Hinds APRN.CNP documented in this encounter [facility] 06-09-2022 History and physi hemant note Note Date/Time June 08, 2022 4:44pm [facility] Medical Records Department [address] [place] [address] History & Physical Exam 06/08/22 1641 MR#: [id number] Acct: [id number] Name: SALMA BROWNING Rep #:[id number] : 1975 47 From: Nani Underwood PCP: Dr. Susan Sevilla MD Status:[facility] Location: [place] [address] History and Physical Date of Admission: 06/09/22 [...] were included in a form from the [employer]. 06/09/22 1106 <Electronically signed by Nani Parnell MD> Cosigner Signature (if applicable): CC: Dr. Nani Parnell MD; Dr. Susan Sevilla MD~ Signed [facility] Work Phone: [phone] 207-502512-19-2022 Miscellaneous Notes* Telephone Encounter - Beena Garcia [...] amoxicillin. Roxana Kimball RN [facility] History of Present illness Narrative* Gabbie Horvath PA-C - 03/18/2022 9:51 AM EST This note was created using [employer]. Subjective Salma Browning is a 47 year [...] IMPLANT 12/06/09 Performed by KATHI POWELL at [facility] RPR DISLOC PERONEAL TENDON W/O FIBULAR OSTEOTOMY 12/06/09 Performed by KATHI POWELL at [facility] SIGMOIDOSCOPY FLX DX W/COLLJ SPEC BR/WA [...] well. Gabbie Horvath PA-C [facility] History of Present illness Narrative* Janki Hinds APRN.DECISION SCIENCE ANALYST - 03/11/2022 10:56 AM EST Subjective The history is provided by the patient. No speech language pathologist assistant was used. HPI Salma Browning is [...] have confirmed and edited as necessary, the [facility] Review of Systems Constitutional: Positive for [...] in 12-24 hours with results, [facility] WITH FLUA+B, ROUTINE 2. URI [...] indetail warranting prompt ER evaluation. Janki Hinds APRN.DECISION SCIENCE ANALYST [facility] Instructions* Patient Instructions* Janki Hinds APRN.CNP - [...] breath, inability to swallow. [facility] Miscellaneous Notes* Telephone Encounter - Neal Gomez APRN.CNP - 12/23/2021 11:03 AM EDT The [...] instructions). Neal Gomez APRN.CNP [facility] History of Present illness Narrative* RT Paxton(R) [...] 10, 2021 9:24 AM documented [facility] Miscellaneous Notes* Telephone Encounter - Mary Mcmillan [...] advise. Krystyna Resendez Ma documented in this encounter[facility] Miscellaneous Notes* Telephone Encounter - Mary Mcmillan [...] 2009? Krystyna Resendez Ma documented [facility] Miscellaneous Notes* Telephone Encounter - Swapna Argueta MA - 09/18/2021 7:27 AM EDT Patient active MyChart. Patient notified via [facility] message. Swapna Argueta MA * Telephone Encounter [...] you. Mary Mcmillan APRN.CNP documented in this encounter[facility] History of Past illness Narrative* Problem Noted [...] of this encounter (statuses as of 09/18/2021) [facility] Narrative* Problem Noted [...] of this encounter (statuses as of 09/26/2021) [facility] Narrative* Problem Noted [...] of this encounter (statuses as of 10/06/2021) [facility] Narrative* Problem Noted [...] of this encounter (statuses as of 11/03/2021) [facility] Narrative* Problem Noted [...] of this encounter (statuses as of 12/11/2021) [facility] Narrative* Problem Noted [...] of this encounter (statuses as of 12/11/2021) [facility] Narrative* Problem Noted [...] of this encounter (statuses as of 12/23/2021) [facility] Narrative* Problem Noted [...] of this encounter (statuses as of 03/11/2022) [facility] Narrative* Problem Noted [...] of this encounter (statuses as of 03/18/2022) [facility] Narrative* Problem Noted [...] of this encounter (statuses as of 03/23/2022) [facility] Narrative* Problem Noted [...] of this encounter (statuses as of 07/30/2022) [facility] Narrative* Problem Noted [...] of this encounter (statuses as of 07/31/2022) [facility] Narrative* Problem Noted [...] of this encounter (statuses as of 08/17/2022) [facility] Narrative* Problem Noted [...] of this encounter (statuses as of 10/08/2022) [facility] Narrative* Problem Noted [...] of this encounter (statuses as of 10/09/2022) [facility] N[facility]ative* Problem Noted [...] of this encounter (statuses as of 10/17/2022) [facility] Narrative* Problem Noted [...] of this encounter (statuses as of 11/05/2022) [facility] Narrative* Problem Noted [...] of this encounter (statuses as of 11/10/2022) [facility] Narrative* Problem Noted [...] of this encounter (statuses as of 11/10/2022) [facility] N[facility]ative* Problem Noted [...] of this encounter (statuses as of 11/19/2022) [facility] N[facility]ative* Problem Noted [...] of this encounter (statuses as of 12/01/2022) [facility] N[facility]ative* Problem Noted [...] of this encounter (statuses as of 12/03/2022) [facility] Narrative* Problem Noted [...] of this encounter (statuses as of 12/04/2022) [facility] N[facility]ative* Problem Noted [...] of this encounter (statuses as of 12/09/2022) [facility] N[facility]ative* Problem Noted [...] of this encounter (statuses as of 12/11/2022) [facility] Narrative* Problem Noted [...] of this encounter (statuses as of 12/21/2022) [facility] N[facility]ative* Problem Noted [...] of this encounter (statuses as of 12/25/2022) [facility] N[facility]ative* Problem Noted [...] of this encounter (statuses as of 12/29/2022) [facility] N[facility]* Problem Noted [...] of this encounter (statuses as of 12/29/2022) [facility] N[facility]* Problem Noted [...] of this encounter (statuses as of 12/29/2022) [facility] N[facility]* Problem Noted [...] of this encounter (statuses as of 12/30/2022) [facility] Narrative* Problem Noted [...] 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 Abnormal [place] glucose challenge test, antepartum 08/23/2014 02/19/2016 Overview: [...] of this encounter (statuses as of 02/07/2023) [facility] Narrative* Problem Noted [...] of this encounter (statuses as of 02/07/2023) [facility]* Problem Noted [...] of this encounter (statuses as of 02/07/2023) [facility] N[facility]ative* Problem Noted [...] of this encounter (statuses as of 02/07/2023) [facility] N[facility]ative* Problem Noted [...] of this encounter (statuses as of 02/07/2023) [facility]* Problem Noted [...] of this encounter (statuses as of 02/07/2023) [facility]* Problem Noted [...] of this encounter (statuses as of 02/11/2023) [facility]* Problem Noted [...] of this encounter (statuses as of 02/16/2023) [facility]* Problem Noted [...] of this encounter (statuses as of 02/21/2023) [facility]* Problem Noted [...] of this encounter (statuses as of 03/01/2023) [facility]* Problem Noted [...] of this encounter (statuses as of 03/02/2023) [facility]* Problem Noted [...] of this encounter (statuses as of 05/14/2023) [facility]* Problem Noted [...] of this encounter (statuses as of 05/14/2023) [facility] N[facility]* Problem Noted [...] of this encounter (statuses as of 05/17/2023) [facility]* Problem Noted [...] of this encounter (statuses as of 05/27/2023) [facility] N[facility]* Problem Noted [...] of this encounter (statuses as of 06/07/2023) [facility]* Problem Noted [...] of this encounter (statuses as of 06/07/2023) [facility] N[facility]* Problem Noted [...] of this encounter (statuses as of 06/09/2023) [facility] N[facility]* Problem Noted [...] of this encounter (statuses as of 06/28/2023) [facility] Narrative* Problem Noted [...] 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 Abnormal [place] glucose challenge test, antepartum 08/23/2014 02/19/2016 Overview: [...] of this encounter (statuses as of 07/22/2023) [facility] Narrative* Problem Noted [...] of this encounter (statuses as of 07/23/2023) [facility] Narrative* Problem Noted [...] of this encounter (statuses as of 07/23/2023) [facility] Author Dr. Parnell [facility] June 09, 2022 12:54pm Note Date/Time June 09, 2022 12:1 0pm [facility] Medical Records Department [address] [place] [id number] Instructions for Home/Discharge Instructions 06/09/22 1208 MR#: [id number] Acct: [id number] Name: SALMA BROWNING Rep #:[id number] : 1975 47 From: Nani Underwood PCP: Dr. Susan Sevilla MD Status:RE [facility] Discharge Instructions Diet Discharge Diet: No restrictions [...] Nani Parnell MD When: one week. Call [phone] for appt. Test Results: Test results from [...] can be placed): Home, Self Care 06/09/22 [id number]<Electronically signed by Nani Parnell MD>Nani Parnell MD CC: Dr. Susan Sevilla MD ~ Signed [facility] Work Phone: evaluation noteNo assessment information available [facility] Work Phone: Evaluation note* Diagnosis Rash- Primary Rash and other nonspecific skin eruption documented in this encounter [facility] note* Diagnosis Encounter for screening mammogram for breast cancer documented in this encounter [facility] note* Diagnosis Migraine with aura, not intractable, without status migrainosus- Primary [facility] [place] [facility] Diagnosis Contusion of lesser toe of left foot without damage to nail, initial encounter Pain in left foot Pain in limb [facility] [place] [facility]* Diagnosis Contusion of lesser toe of left foot without damage to nail, initial encounter- Primary [facility]* Diagnosis Anxiety associated with depression Dysthymic disorder Stress and adjustment reaction Other specified adjustment reaction [facility] Diagnosis Exposure to COVID-19 virus- Primary URI with cough and congestion [facility] [place] [facility]* Diagnosis Strep pharyngitis- Primary Streptococcal sore throat Bronchitis Bronchitis, not specified as acute or chronic [facility] [place] [facility]* Diagnosis Onset Date Resolution Status History of incision and drainage chronic 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 Late effect of facial wound chronic Unspecified open wound of un specified part of neck, sequela chronic DDD (degenerative disc disease), lumbar acute [facility] Work Phone: evaluation note* Diagnosis Diarrhea, unspecified type- Primary Abdominal pain, generalized documented in this encounter [facility] note* Diagnosis Acute constipation- Primary Unspecified constipation Generalized abdominal pain Abdominal pain, generalized Migraine with aura, not intractable, without status migrainosus documented in this encounter [facility] note* Diagnosis Right knee pain, unspecified chronicity- Primary Pain in left hip Pain in joint, pelvic region and thigh documented [facility] [place] [facility]* Diagnosis Vitamin D deficiency- Primary Unspecified vitamin D deficiency documented [facility] [place] [facility]* Diagnosis Vitamin D deficiency- Primary Unspecified vitamin D deficiency documented [facility] [place] [facility]* Diagnosis Trochanteric bursitis of left hip- Primary Enthesopathy of hip region documented [facility] [place] [facility]* Diagnosis Anxiety associated with depression Dysthymic disorder Stress and adjustment reaction Other specified adjustment reaction [facility] [place] [facility]* Diagnosis Wellness examination- Primary Gastroesophageal reflux disease, unspecified whether esophagitis present Anxiety associated with depression Dysthymic disorder Hypertension, essential Unspecified essential hypertension Migraine with aura, not intractable, without status migrainosus Weight gain Abnormal weight gain Muscle strain Unspecified site of sprain and strain Women's annual routine gynecological examination documented [facility] [place] [facility]* Diagnosis Encounter for gynecological examination (general) (routine) without abnormal findings- Primary Women's annual routine gynecological examination Screen for STD (sexually transmitted disease) Screening examination for venereal disease Encounter for screening mammogram for breast cancer [facility] [place] [facility]* Diagnosis URI, acute- Primary Acute upper respiratory infections of unspecified site Exposure to confirmed case of COVID-19 documented [facility] [place] [facility]* Diagnosis Obesity, Class III, BMI 40-49.9 (morbid obesity) ([facility])- Primary Morbid obesity Weight gain Abnormal weight gain Hypertension, unspecified type Dietary counseling Dietary surveillance and counseling documented in this encounter [facility] note* Diagnosis Anxiety associated with depression Dysthymic disorder Stress and adjustment reaction Other specified adjustment reaction [facility] [place] [facility]* Diagnosis Muscle strain Unspecified site of sprain and strain [facility] [place] [facility]* Diagnosis Trochanteric bursitis of left hip Enthesopathy of hip region documented [facility] this [facility] [place] [facility]* Diagnosis Vitamin D deficiency- Primary Unspecified vitamin D deficiency documented [facility] this [facility] [place] [facility]* Diagnosis Pain in left hip Pain in joint, pelvic region and thigh Right knee pain, unspecified chronicity [facility] Diagnosis Arthritis of midfoot Unspecified arthropathy, ankle and foot Pain in left foot Pain in limb Exostosis Exostosis of unspecified site [facility] [place] [facility]* Diagnosis Encounter for screening mammogram for breast cancer documented [facility] [place] [facility]* Diagnosis Arthritis of midfoot Unspecified arthropathy, ankle and foot Contusion of lesser toe of left foot without damage to nail, initial encounter Pain in left foot Pain in limb documented [facility] [place] [facility]* Diagnosis Contusion of lesser toe of left foot without damage to nail, initial encounter documented [facility] [place] [facility]* Diagnosis Arthritis of midfoot- Primary Unspecified arthropathy, ankle and foot Pain in left foot Pain in limb [facility] [place] [facility]* Diagnosis Anxiety associated with depression Dysthymic disorder Stress and adjustment reaction Other specified adjustment reaction [facility] [place] [facility]* Diagnosis Cervicalgia- Primary Headache, unspecified headache type documented [facility] this [facility] [place] [facility]* Diagnosis Cervicalgia- Primary Headache, unspecified headache type [facility] this [facility] [place] [facility]* Diagnosis Trochanteric bursitis of left hip Enthesopathy of hip region documented [facility] [place] [facility]* Diagnosis Right knee pain, unspecified chronicity- Primary documented [facility] [place] [facility]* Diagnosis Migraine with aura, not intractable, without status migrainosus documented [facility] [place] [facility]* Diagnosis SOB (shortness of breath)- Primary Shortness of breath Dizziness Dizziness and giddiness Class 3 severe obesity with body mass index (BMI) of 40.0 to 44.9 in adult, unspecified obesity type, unspecified whether serious comorbidity present (HCC) Vitamin D deficiency Unspecified vitamin D deficiency documented in this encounter [facility] note* Diagnosis Primary osteoarthritis of both knees Primary localized osteoarthrosis, lower leg [facility] [place] [facility]* Diagnosis Vitamin D deficiency- Primary Unspecified vitamin D deficiency [facility]* Diagnosis Dizziness- Primary Dizziness and giddiness Anxiety associated with depression Dysthymic disorder Ventricular hypertrophy Cardiomegaly documented [facility] [place] [facility]* Diagnosis Anxiety associated with depression- Primary [facility]ysthymic disorder [facility] Diagnosis BPPV (benign paroxysmal positional vertigo), unspecified laterality- Primary Dizziness Dizziness and giddiness Bradycardia Other specified cardiac dysrhythmias Sore throat Acute pharyngitis Weight gain Abnormal weight gain Anxiety associated with depression Dysthymic disorder [facility] Bacterial sinusitis- Primary Unspecified sinusitis (chronic) Sore throat Acute pharyngitis [facility] [place] [facility]* Diagnosis Anxiety associated with depression Dysthymic disorder [facility] [place] [facility]* Diagnosis Acute cough- Primary [facility] [place] [facility]* Diagnosis URI, acute- Primary Acute upper [...] (HCC) Acute cough [facility] [place] [facility]* Diagnosis Chronic cough- Primary Cough Abnormal chest x-ray Other nonspecific abnormal finding of lung field [facility] [place] [facility] Diagnosis Chronic cough Cough Abnormal chest x-ray Other nonspecific abnormal finding of lung field [facility] Diagnosis Wellness examination- Primary BRITTANY (generalized [...] routine gynecological examination documented [facility] this [facility] [place] [facility]* Diagnosis Acute cough [facility] Diagnosis Primary osteoarthritis of both knees- Primary Primary localized osteoarthrosis, lower leg Morbid obesity (HCC) Morbid obesity Acute pain of right knee [facility] [place] [facility]* Diagnosis SOB (shortness of breath) Shortness of breath documented in this encounter [facility] note* Diagnosis Right knee pain, unspecified chronicity documented in this encounter [facility] note* Diagnosis Cervicalgia documented in this encounter [facility] note* Diagnosis Bronchitis Bronchitis, not specified as acute or chronic documented in this encounter [facility] note* Diagnosis Primary osteoarthritis of both knees- Primary Gastroesophageal reflux disease without esophagitis Esophageal reflux Daytime sleepiness Primary hypertension Unspecified essential hypertension Back pain, unspecified back location, unspecified back pain laterality, unspecified chronicity Morbid obesity with BMI of 45.0-49.9, adult ([facility]) documented in this encounter [facility] note* Diagnosis Primary osteoarthritis of both knees- Primary Gastroesophageal reflux disease without esophagitis Esophageal reflux Daytime sleepiness Primary hypertension Unspecified essential hypertension Morbid obesity with BMI of 45.0-49.9, adult ([facility]) documented in this encounter [facility] note* Diagnosis Encounter for screening mammogram for breast cancer documented in this encounter [facility] note* Diagnosis Anxiety associated with depression Dysthymic disorder Hypertension, essential Unspecified essential hypertension Migraine with aura, not intractable, without status migrainosus documented in this encounter [facility] note* Diagnosis Primary hypertension- Primary Unspecified essential hypertension BMI 45.0-49.9, adult ([facility]) Class 3 severe obesity with serious comorbidity and body mass index (BMI) of 45.0 to 49.9 in adult, unspecified obesity type (HCC) Gastro-esophageal reflux disease without esophagitis documented in this encounter [facility] note* Diagnosis Migraine with aura, not intractable, without status migrainosus documented in this encounter [facility] note* Diagnosis Gastro-esophageal reflux disease without esophagitis documented in this encounter [facility] note* Diagnosis Sore throat- Primary Acute pharyngitis Acute cough SOB (shortness of breath) Shortness of breath Acute cough SOB (shortness of breath) Shortness of breath documented in this encounter [facility] note* Diagnosis Acute cough SOB (shortness of breath) Shortness of breath documented in this encounter [facility] note* Diagnosis Primary osteoarthritis of both knees- Primary Gastroesophageal reflux disease without esophagitis Esophageal reflux Daytime sleepiness Primary hypertension Unspecified essential hypertension Morbid obesity with BMI of 45.0-49.9, adult ([facility]) [facility] Diagnosis Primary osteoarthritis of both knees- Primary Gastroesophageal reflux disease without esophagitis Esophageal reflux Daytime sleepiness Primary hypertension Unspecified essential hypertension Morbid obesity with BMI of 45.0-49.9, adult ([facility]) documented in this encounter [facility] note* Diagnosis Anxiety associated with depression Dysthymic disorder documented in this encounter [facility] note* Diagnosis Anxiety associated with depression Dysthymic disorder Migraine with aura, not intractable, without status migrainosus documented in this encounter [facility] note* Diagnosis Primary osteoarthritis of both knees- Primary Gastroesophageal reflux disease without esophagitis Esophageal reflux Daytime sleepiness Primary hypertension Unspecified essential hypertension Morbid obesity with BMI of 45.0-49.9, adult (HCC) documented in this encounter [facility] note* Diagnosis Primary hypertension- Primary Unspecified essential hypertension BMI 45.0-49.9, adult ([facility]) Class 3 severe obesity with serious comorbidity and body mass index (BMI) of 45.0 to 49.9 in adult, unspecified obesity type (HCC) documented in this encounter [facility] note* Diagnosis Primary hypertension- Primary Unspecified essential hypertension BMI 45.0-49.9, adult (HCC) Class 3 severe obesity with serious comorbidity and body mass index (BMI) of 45.0 to 49.9 in adult, unspecified obesity type documented in this encounter [facility] note* Diagnosis Hypertension, essential Unspecified essential hypertension Anxiety associated with depression Dysthymic disorder documented in this encounter [facility] note* Diagnosis Localized bacterial skin infection- Primary Unspecified local infection of skin and subcutaneous tissue documented in this encounter [facility] Discharge instructionsAdditional Instructions Take the 2 antibiotics as prescribed. You need to return to the ED if you develop fever, chills, nausea, vomiting, feeling unwell or the redness extending outside of the lines that were marked here. Your evaluation in the Emergency Department did not reveal any acute reason for admission. However, I want to emphasize that you may be early in the course of a disease process or illness even if it is not present. For this reason you should follow-up within 24 hours for reevaluation with either your primary care physician or if necessary back here in the Emergency Department. You should return to the Emergency Department immediately if your symptoms worsen or new symptoms develop.[facility] Work Phone: Reason for referral (narrative)* Diagnostic Procedure Only (Routine) - Pending Review Specialty Diagnoses / Procedures Referred By Contac t Referred To Contact BR IMAGING Diagnoses Encounter for screening mammogram for breast cancer Procedures ALLIE SCREENING SCREENING MAMMOGRAPHY BI 2-VIEW BREAST INC CAD Susan Sevilla MD [address] [place] [address] Br Imaging [address] [place] [address] Referral ID Status Reason Start Date Expiration Date Visits Requested Visits Authorized [id number] Pending Review Auto-Generat ed Referral 10/01/2021 10/31/2022 1 1 T [facility] for referral (narrative)* Diagnostic Procedure Only (Routine) - Closed Specialty Diagnoses / Procedures Referred By Contac t Referred To Contact XR IMAGING Diagnoses Contusion of lesser toe of left foot without damage to nail, initial encounter Pain in left foot Procedures XR FOOT GENERAL 3V AP/LAT/OBL LEFT RADEX FOOT COMPLETE MINIMUM 3 VIEWS Ronak Pulido [address] [place] [address] Xr Imaging Referral ID Status Reason Start Date Expiration Date V isits Requested Visits Authorized [id number] Closed Auto-Generate d Referral 12/10/2021 01/09/2023 1 1 [facility] for referral (narrative)* Diagnostic Procedure Only (Routine) - Pending Review Specialty Diagnoses / Procedures Referred By Contac t Referred To Contact XR IMAGING Diagnoses Contusion of lesser toe of left foot without damage to nail, initial encounter Procedures XR FOOT GENERAL 3V AP/LAT/OBL LEFT RADEX FOOT COMPLETE MINIMUM 3 VIEWS Ronak Pulido [address] [place] [address] Xr Imaging Referral ID Status Reason Start Date Expiration Date Visits Requested Visits Authorized [id number] Pending Review Auto-Generat ed Referral 12/11/2021 01/10/2023 1 1 [facility] for referral (narrative)* Diagnostic Procedure Only (Routine) - Pending Review Specialty Diagnoses / Procedures Referred By Ducac t Referred To Contact XR IMAGING Diagnoses Right knee pain, unspecified chronicity Procedures XR KNEE GENERAL 4V AP BOTH/PA BOTH/LAT/MERC LEFT RADIOLOGIC EXAM KNEE COMPLETE 4/MORE VIEWS Ray Frazier MD [address] [place] [address] Xr Imaging Referral ID Status Reason Start Date Expiration Date Visits Requested Visits Authorized [id number] Pending Review Auto-Generat ed Referral 10/16/2022 11/15/2023 1 1 * Diagnostic Procedure Only (Routine) - Pending Review Specialty Diagnoses / Procedures Referred By Hansa vásquez Referred To Contact XR IMAGING Diagnoses Pain in left hip Procedures XR HIP GENERAL 3V PELV/AP/LAT LEFT RADEX HIP UNILATERAL WITH PELVIS 2-3 VIEWS Ray Frazier MD [address] [place] [address] Xr Imaging Referral ID Status Reason Start Date Expiration Date Visits Requested Visits Authorized [id number] Pending Review Auto-Generat ed Referral 10/16/2022 11/15/2023 1 1 [facility] for referral (narrative)* Diagnostic Procedure Only (Routine) - Authorized Specialty Diagnoses / Procedures Referred By Hansa t Referred To Contact BR IMAGING Diagnoses Encounter for screening mammogram for breast cancer Procedures ALLIE SCREENING W ASHLEY SCREENING DIGITAL BREAST TOMOSYNTHESIS BI SCREENING MAMMOGRAPHY BI 2-VIEW BREAST INC CAD Yuli Givens MD [address] [place] [address] Br Imaging [address] [facility] [place] [address] Referral ID Status Reason Start Date Expiration Date Visits Requested Visits Authorized [id number] Authorized Auto-Generat ed Referral 12/04/2022 01/03/2024 1 1 [facility] for referral (narrative)* Diagnostic Procedure Only (Routine) - Closed Specialty Diagnoses / Procedures Referred By Contac t Referred To Contact XR IMAGING Diagnoses Right knee pain, unspecified chronicity Procedures XR KNEE GENERAL 4V AP BOTH/PA BOTH/LAT/MERC LEFT RADIOLOGIC EXAM KNEE COMPLETE 4/MORE VIEWS Ray Frazier MD [address] [place] [address] [place] [address] Referral ID Status Reason Start Date Expiration Date V isits Requested Visits Authorized [id number] Closed Auto-Generate d Referral 10/16/2022 11/15/2023 1 1 * Diagnostic Procedure Only (Routine) - Closed Specialty Diagnoses / Procedures Referred By Contac t Referred To Contact XR IMAGING Diagnoses Pain in left hip Procedures XR HIP GENERAL 3V PELV/AP/LAT LEFT RADEX HIP UNILATERAL WITH PELVIS 2-3 VIEWS Ray Frazier MD [address] [place] [address] [place] [address] Referral ID Status Reason Start Date Expiration Date V isits Requested Visits Authorized [id number] Closed Auto-Generate d Referral 10/16/2022 11/15/2023 1 1 [facility] for referral (narrative)* Diagnostic Procedure Only (Routine) - Closed Specialty Diagnoses / Procedures Referred By Contac t Referred To Contact XR IMAGING Diagnoses Arthritis of midfoot Pain in left foot Exostosis Procedures XR FOOT GENERAL 3V AP/LAT/OBL LEFT RADEX FOOT COMPLETE MINIMUM 3 VIEWS Ronak Pulido [address] [place] [address] [place] [address] Referral ID Status Reason Start Date Expiration Date V isits Requested Visits Authorized [id number] Closed Auto-Generate d Referral 11/04/2022 12/04/2023 1 1 [facility] for referral (narrative)* Diagnostic Procedure Only (Routine) - Closed Specialty Diagnoses / Procedures Referred By Hansa t Referred To Contact BR IMAGING Diagnoses Encounter for screening mammogram for breast cancer Procedures ALLIE SCREENING W ASHLEY SCREENING DIGITAL BREAST TOMOSYNTHESIS BI SCREENING MAMMOGRAPHY BI 2-VIEW BREAST INC CAD Yuli Givens MD [address] [place] [address] Br Imaging [address] [place] [address] Referral ID Status Reason Start Date Expiration Date V isits Requested Visits Authorized [id number] Closed Auto-Generate d Referral 12/04/2022 01/03/2024 1 1 [facility] for referral (narrative)* Diagnostic Procedure Only (Routine) - Closed Specialty Diagnoses / Procedures Referred By Hansa t Referred To Contact XR IMAGING Diagnoses Contusion of lesser toe of left foot without damage to nail, initial encounter Procedures XR FOOT GENERAL 3V AP/LAT/OBL LEFT RADEX FOOT COMPLETE MINIMUM 3 VIEWS Ronak Pulido [address] [place] [address] [place] [address] Referral ID Status Reason Start Date Expiration Date V isits Requested Visits Authorized [id number] Closed Auto-Generate d Referral 12/11/2021 01/10/2023 1 1 [facility] for referral (narrative)* Diagnostic Procedure Only (Routine) - Closed Specialty Diagnoses / Procedures Referred By Contac t Referred To Contact XR IMAGING Diagnoses Cervicalgia Procedures XR CERV OTHER 4V AP/LAT/OBL RADEX SPINE CERVICAL 4 OR 5 VIEWS Neal Gomez, DATA SERVICES DEVELOPER.DECISION SCIENCE ANALYST [address] [place] [address] [place] [address] Referral ID Status Reason Start Date Expiration Date V isits Requested Visits Authorized [id number] Closed Auto-Generate d Referral 05/14/2023 06/12/2024 1 1 * MRI/CT (Routine) - Pending Review Specialty Diagnoses / Procedures Referred By Contac t Referred To Contact MR IMAGING Diagnoses Cervicalgia Procedures MRI CERVICAL SPINE WO IVCON MRI SPINAL CANAL CERVICAL W/O CONTRAST MATRL Neal Gomez APRN.DECISION SCIENCE ANALYST [address] [place] [address] [place] [address] Referral ID Status Reason Start Date Expiration Date Visits Requested Visits Authorized [id number] Pending Review Auto-Generat ed Referral 05/14/2023 06/12/2024 1 1 * Consult, Test, Treat (Routine) - Authorized Specialty Diagnoses / Procedures Referred By Contac t Referred To Contact Spine [facility] Diagnoses Cervicalgia Procedures CONSULT TO [facility] OFFICE/OUTPATIENT [facility] 60 MINUTES Neal Gomez APRN.DECISION SCIENCE ANALYST [address] [place] [address] Referral ID Status Reason Start Date Expiration Date Visits Requested Visits Authorized [id number] Authorized PCP Requested Referral 05/14/2023 05/13/2024 1 1 [facility] for referral (narrative)* Diagnostic Procedure Only (Routine) - Pending Review Specialty Diagnoses / Procedures Referred By Contac t Referred To Contact XR IMAGING Diagnoses Right knee pain, unspecified chronicity Procedures XR KNEE GENERAL 4V AP BOTH/PA BOTH/LAT/MERC RIGHT RADIOLOGIC EXAM KNEE COMPLETE 4/MORE VIEWS Oksana Kenney PA-C [address] [place] [address] [place] [address] Referral ID Status Reason Start Date Expiration Date Visits Requested Visits Authorized [id number] Pending Review Auto-Generat ed Referral 06/09/2023 07/08/2024 1 1 [facility] for referral (narrative)* Outpatient Procedure (Routine) - Pending Review Specialty Diagnoses / Procedures Referred By Contac t Referred To Contact [facility] [place] Diagnoses SOB (shortness of breath) Procedures ECG COMPLETE ECG ROUTINE ECG W/LEAST 12 LDS W/I&R Mary Mcmillan APRN.DECISION SCIENCE ANALYST [address] [place] [address] [facility] [address] [place] [address] Referral ID Status Reason Start Date Expiration Date Visits Requested Visits Authorized [id number] Pending Review Auto-Generat ed Referral 07/23/2023 07/22/2024 1 1 * Outpatient Procedure (Routine) - Additional Clinical Info Needed Specialty Diagnoses / Procedures [facility] Referred To Contact [facility] [place] Diagnoses SOB (shortness of breath) Procedures ECHO ECHO TTHRC R-T 2D W/WOM-MODE COMPL SPEC&COLR D Mary Mcmillan APRN.DECISION SCIENCE ANALYST [address] [place] [address] [facility] [address] [place] [address] Referral ID Status Reason Start Date Expiration Date Visits Requested Visits Authorized [id number] Additional Clinical Info Needed Auto-Generat ed Referral 07/23/2023 07/22/2024 1 1 [facility] for referral (narrative)* Outpatient Procedure (Routine) - Authorized Specialty Diagnoses / Procedures [facility] Referred To Contact [facility] [place] Diagnoses Dizziness Ventricular hypertrophy Procedures EXERCISE STRESS ECG (WITHOUT IMAGING) Mary Mcmillan APRN.DECISION SCIENCE ANALYST [address] [place] [address] [facility] [place] [address] [place] [address] Referral ID Status Reason Start Date Expiration Date Visits Requested Visits Authorized [id number] Authorized Auto-Generat ed Referral 08/11/2023 08/10/2024 1 1 * Consult, Test, Treat (Routine) - Authorized Specialty Diagnoses / Procedures Referred By Contac t Referred To Contact Cardiology Diagnoses Dizziness Ventricular hypertrophy Procedures CONSULT TO CARDIOLOGY OFFICE/OUTPATIENT NEW HIGH MDM 60 MINUTES Mary Mcmillan APRN.DECISION SCIENCE ANALYST [address] [place] [address] Referral ID Status Reason Start Date Expiration Date Visits Requested Visits Authorized [id number] Authorized PCP Requested Referral 08/11/2023 08/10/2024 1 1 [facility] for referral (narrative)* Diagnostic Procedure Only (Routine) - Closed Specialty Diagnoses / Procedures Referred By Contac t Referred To Contact XR IMAGING Diagnoses Right knee pain, unspecified chronicity Procedures XR KNEE GENERAL 4V AP BOTH/PA BOTH/LAT/MERC RIGHT RADIOLOGIC EXAM KNEE COMPLETE 4/MORE VIEWS Oksana Kenney PA-C [address] [place] [address] [place] [address] Referral ID Status Reason Start Date Expiration Date V isits Requested Visits Authorized [id number] Closed Auto-Generate d Referral 06/09/2023 07/08/2024 1 1 [facility] for referral (narrative)* Diagnostic Procedure Only (Routine) - Closed Specialty Diagnoses / Procedures Referred By Contac t Referred To Contact XR IMAGING Diagnoses Cervicalgia Procedures XR CERV OTHER 4V AP/LAT/OBL RADEX SPINE CERVICAL 4 OR 5 VIEWS Neal Gomez APRN.DECISION SCIENCE ANALYST [address] [place] [address] [place] [address] Referral ID Status Reason Start Date Expiration Date V isits Requested Visits Authorized [id number] Closed Auto-Generate d Referral 05/14/2023 06/12/[address] [facility] for referral (narrative)* Consultation (Routine) - Pending Review Specialty Diagnoses / Procedures Referred By Contac t Referred To Contact Pulmonary Disease / Pulmonology Diagnoses Daytime sleepiness Primary hypertension Morbid obesity with BMI of 45.0-49.9, adult (HCC) Procedures SC OFFICE/OUTPATIENT NEW HIGH MDM 60 MINUTES Mary Vaz APRN - CNP [address] [place] [address] [facility] [address] [place] [address] Referral ID Status Reason Start Date Expiration Date Visits Requested Visits Authorized [id number] Pending Review Specialty Services Required 4 01/13/2025 1 1 * Consultation (Elective) - Pending Review Specialty Diagnoses / Procedures Referred By Contac t Referred To Contact Cardiology Diagnoses Primary hypertension Morbid obesity with BMI of 45.0-49.9, adult (HCC) Procedures SC OFFICE/OUTPATIENT NEW HIGH MDM 60 MINUTES Mary Vaz APRN - CNP [address] [place] [address] [facility] [address] [place] [address] Referral ID Status Reason Start Date Expiration Date Visits Requested Visits Authorized [id number] Pending Review Specialty Services Required 4 01/13/2025 1 1 [facility] for referral (narrative)* Diagnostic Procedure Only (Routine) - New Request Specialty Diagnoses / Procedures Referred By Contpushpa t Referred To Contact BR IMAGING Diagnoses Encounter for screening mammogram for breast cancer Procedures ALLIE SCREENING W ASHLEY SCREENING DIGITAL BREAST TOMOSYNTHESIS BI SCREENING MAMMOGRAPHY BI 2-VIEW BREAST INC CAD Susan Sevilla MD [address] [place] [address] Br Imaging [address] [place] [address] Referral ID Status Reason Start Date Expiration Date Visits Requested Visits Authorized [id number] New Request Auto-Generat ed Referral 01/12/2024 02/10/2025 1 1 [facility] for referral (narrative)No reason for [facility] Work Phone: Reason for visit Narrative* Diagnostic Procedure Only (Routine) - Closed Specialty Diagnoses / Procedures Referred By Contac t Referred To Contact XR IMAGING Diagnoses Contusion of lesser toe of left foot without damage to nail, initial encounter Pain in left foot Procedures XR FOOT GENERAL 3V AP/LAT/OBL LEFT RADEX FOOT COMPLETE MINIMUM 3 VIEWS Ronak Pulido [address] [place] [address] Xr Imaging Referral ID Status Reason Start Date Expiration Date V isits Requested Visits Authorized [id number] Closed Auto-Generate d Referral 12/10/2021 01/09/2023 1 1 [facility] for visit Narrative* Diagnostic Procedure Only (Routine) - Closed Specialty Diagnoses / Procedures Referred By Contac t Referred To Contact XR IMAGING Diagnoses Right knee pain, unspecified chronicity Procedures XR KNEE GENERAL 4V AP BOTH/PA BOTH/LAT/MERC LEFT RADIOLOGIC EXAM KNEE COMPLETE 4/MORE VIEWS Ray Frazier MD [address] [place] [address] [place] [address] Referral ID Status Reason Start Date Expiration Date V isits Requested Visits Authorized [id number] Closed Auto-Generate d Referral 10/16/2022 11/15/2023 1 1 [facility] for visit Narrative* Diagnostic Procedure Only (Routine) - Closed Specialty Diagnoses / Procedures Referred By Contac t Referred To Contact XR IMAGING Diagnoses Arthritis of midfoot Pain in left foot Exostosis Procedures XR FOOT GENERAL 3V AP/LAT/OBL LEFT RADEX FOOT COMPLETE MINIMUM 3 VIEWS Testrake, Ronak [address] [place] [address] [place] [address] Referral ID Status Reason Start Date Expiration Date V isits Requested Visits Authorized [id number] Closed Auto-Generate d Referral 11/04/2022 12/04/2023 1 1 [facility] for visit Narrative* Diagnostic Procedure Only (Routine) - Closed Specialty Diagnoses / Procedures Referred By Contac t Referred To Contact BR IMAGING Diagnoses Encounter for screening mammogram for breast cancer Procedures ALLIE SCREENING W ASHLEY SCREENING DIGITAL BREAST TOMOSYNTHESIS BI SCREENING MAMMOGRAPHY BI 2-VIEW BREAST INC CAD Yuli Givens MD [address] [place] [address] Br Imaging [address] [place] [address] Referral ID Status Reason Start Date Expiration Date V isits Requested Visits Authorized [id number] Closed Auto-Generate d Referral 12/04/2022 01/03/2024 1 1 [facility] for visit Narrative* Diagnostic Procedure Only (Routine) - Closed Specialty Diagnoses / Procedures Referred By Contac t Referred To Contact XR IMAGING Diagnoses Contusion of lesser toe of left foot without damage to nail, initial encounter Procedures XR FOOT GENERAL 3V AP/LAT/OBL LEFT RADEX FOOT COMPLETE MINIMUM 3 VIEWS TestrajillRonak [address] [place] [address] [place] [address] Referral ID Status Reason Start Date Expiration Date V isits Requested Visits Authorized [id number] Closed Auto-Generate d Referral 12/11/2021 01/10/2023 1 1 [facility] for visit Narrative* Diagnostic Procedure Only (Routine) - Closed Specialty Diagnoses / Procedures Referred By Contac t Referred To Contact XR IMAGING Diagnoses Right knee pain, unspecified chronicity Procedures XR KNEE GENERAL 4V AP BOTH/PA BOTH/LAT/MERC RIGHT RADIOLOGIC EXAM KNEE COMPLETE 4/MORE VIEWS Oksana Kenney PA-C [address] [place] [address] [place] [address] Referral ID Status Reason Start Date Expiration Date V isits Requested Visits Authorized [id number] Closed Auto-Generate d Referral 06/09/2023 07/08/2024 1 1 [facility] for visit Narrative* Diagnostic Procedure Only (Routine) - Closed Specialty Diagnoses / Procedures Referred By Contac t Referred To Contact XR IMAGING Diagnoses Cervicalgia Procedures XR CERV OTHER 4V AP/LAT/OBL RADEX SPINE CERVICAL 4 OR 5 VIEWS Neal Gomez, DATA SERVICES DEVELOPER.DECISION SCIENCE ANALYST [address] [place] [address] [place] [address] Referral ID Status Reason Start Date Expiration Date V isits Requested Visits Authorized [id number] Closed Auto-Generate d Referral 05/14/2023 06/12/2024 1 1 [facility] for visit Narrative* Auth/Cert (Routine) Specialty Diagnoses / Procedures Referred By Contac t Referred To Contact Diagnoses Gastro-esophageal reflux disease without esophagitis Procedures SC EGD TRANSORAL BIOPSY SINGLE/MULTIPLE ESOPHAGOGASTRODUODENOSCOPY WITH BIOPSY Nate Winters MD [address] [place] [address] [address] [place] [address] Phone: tel: fax: Referral ID Status Reason Start Date Expiration Date Visits Re quested Visits Authorized [id number] 01/27/2024 1 1 [facility] Family History Relationship Condition Age at Onset Recorded Date/T [...] Arthritis Unknown grandfather Hypertension Unknown Advance Directives Advance Directive Response Recorded Date/ Time Advance Directives No February 03, 2019 12:43pm Living Will No January 30 8:44am Power of Foundry Equipment Mechanic No January 30, 2021 8:44am Documents on File Type Date 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 Advance Directive(s) Advance Directive(s) 05/09/2019 8:27 AM Documents on File Type Date 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 Advance Directive(s) Advance Directive(s) 05/09/2019 8:27 AM Advance Directive Response Recorded Date/ Time Advance Directives No February 03, 2019 12:43pm Living Will No November 12 10:23pm Power of Foundry Equipment Mechanic No November 12 10:23pm Advance Directive Response Recorded Date/ Time Advance Directives No February 03, 2019 11:43am Living Will No November 12 9:23pm Power of Foundry Equipment Mechanic No November 12 9:23pm Advance Directive Response Recorded Date/ Time Advance Directives No February 03, 2019 11:43am Living Will No June 05, 2022 8:43am Power of Foundry Equipment Mechanic No June 05 8:43am Date Activated Date Inactivated Comments 03/10/2024 9:26 AM 03/10/2024 12:38 PM Date Activated Date Inactivated Comments 03/10/2024 9:26 AM 03/10/2024 12:38 PM Advance Directive Response Recorded Date/ Time Do you have a Healthcare Power of Foundry Equipment Mechanic? No December 09, 2024 1:15pm Advance Directives No May 11:36am Chief Complaint and Reason for Visit Chief [...] DDD (degenerative disc disease), lumbar Chief Complaint Admit Date WOUND CHECK December 09, 2024 12:50pm Health Concerns Infection Onset Date Last Indicated Resolved Time COVID-19 Rule-Out 03/11/2022 03/11/2022 Reason for Referral Specialty Diagnoses / Procedures Referred By Hansa vásquez Referred To Contact [facility] Diagnoses Trochanteric bursitis of left hip Procedures CONSULT TO PHYSICAL THERAPY PHYSICAL THERAPY EVALUATION HIGH COMPLEX 45 MINS Ray Frazier MD [address] [place] [address] [facility] [address] [place] [address] Referral ID Status Reason Start Date Expiration Date Visits Requested Visits Authorized [id number] Pending Review Auto-Generat ed Referral 10/19/2022 10/19/2023 1 1 Specialty Diagnoses / Procedures Referred By Contac t Referred To Contact Gynecology Diagnoses Women's annual routine gynecological examination Procedures CONSULT TO GYNECOLOGY OFFICE/OUTPATIENT NEW HIGH MDM 60-74 MINUTES Mary Mcmillan, FELICIA.DECISION SCIENCE ANALYST [address] [place] [address] Referral ID Status Reason Start Date Expiration Date Visits Requested Visits Authorized [id number] Authorized PCP Requested Referral Auto-Generate d Referral 12/02/2022 12/02/2023 1 1 Specialty Diagnoses / Procedures Referred By Contac t Referred To Contact Nutrition Diagnoses Weight gain Procedures CONSULT TO NUTRITION THERAPY MEDICAL NUTRITION ASSMT&IVNTJ INDIV EACH 15 FL MEDICAL NUTRITION ASSMT&IVNTJ INDIV EACH 15 FL MEDICAL NUTRITION ASSMT&IVNTJ INDIV EACH 15 [place] MEDICAL NUTRITION ASSMT&IVNTJ INDIV EACH 15 FL Mary Mcmillan, FELICIA.DECISION SCIENCE ANALYST [address] [place] [address] Referral ID Status Reason Start Date Expiration Date Visits Requested Visits Authorized [id number] Authorized PCP Requested Referral 12/02/2022 12/02/2023 1 1 Specialty Diagnoses / Procedures Referred By Contac t Referred To Contact CT IMAGING Diagnoses Arthritis of midfoot Contusion of lesser toe of left foot without damage to nail, initial encounter Pain in left foot Procedures CT FOOT WO IVCON LEFT CT LOWER EXTREMITY W/O CONTRAST [place] [address] [place] [address] Referral ID Status Reason Start Date Expiration Date V isits Requested Visits Authorized [id number] Closed Auto-Generate d Referral 10/08/2022 11/07/2023 1 1 Specialty Diagnoses / Procedures Referred By Contac t Referred To Contact [facility] Diagnoses Cervicalgia Headache, unspecified headache type Procedures CONSULT TO PHYSICAL THERAPY PHYSICAL THERAPY EVALUATION HIGH COMPLEX 45 MINS Neal Gomez, DATA SERVICES DEVELOPER.DECISION SCIENCE ANALYST [address] [place] [address] [facility] [address] [place] [address] Referral ID Status Reason Start Date Expiration Date Visits Requested Visits Authorized [id number] Pending Review Auto-Generat ed Referral 05/27/2023 05/26/2024 1 1 Specialty Diagnoses / Procedures Referred By Contac t Referred To Contact Diagnoses Class 3 severe obesity with body mass index (BMI) of 40.0 to 44.9 in adult, unspecified obesity type, unspecified whether serious comorbidity present (HCC) Procedures CONSULT [facility] OFFICE/OUTPATIENT [facility] 60 MINUTES Mary Mcmillan, DATA SERVICES DEVELOPER.DECISION SCIENCE ANALYST [address] [place] [address] Referral ID Status Reason Start Date Expiration Date Visits Requested Visits Authorized [id number] Authorized PCP Requested Referral 10/20/2023 10/19/2024 1 1 Specialty Diagnoses / Procedures Referred By Contac t Referred To Contact CT IMAGING Diagnoses Chronic cough Abnormal chest x-ray Procedures CT CHEST W IVCON DIAGNOSTIC COMPUTED TOMOGRAPHY THORAX W/CONTRAST Mary Mcmillan, DATA SERVICES DEVELOPER.DECISION SCIENCE ANALYST [address] [place] [address] [place] [address] Referral ID Status Reason Start Date Expiration Date Visits Requested Visits Authorized [id number] Authorized Auto-Generat ed Referral 10/21/2023 12/20/2023 1 1 Referral ID Status Reason Start Date Expiration Date V isits Requested Visits Authorized [id number] Closed Auto-Generate d Referral 10/21/2023 12/20/2023 1 1 Specialty Diagnoses / Procedures Referred By Contac t Referred To Contact Gynecology Diagnoses Women's annual routine gynecological examination Procedures CONSULT TO GYNECOLOGY OFFICE/OUTPATIENT [facility] 60 MINUTES Mary Mcmillan, DATA SERVICES DEVELOPER.DECISION SCIENCE ANALYST [address] [place] [address] Referral ID Status Reason Start Date Expiration Date Visits Requested Visits Authorized [id number] Authorized PCP Requested Referral Auto-Generate d Referral 12/03/2023 12/02/2024 1 1 Specialty Diagnoses / Procedures Referred By Contac t Referred To Contact Diagnoses Migraine with aura, not intractable, without status migrainosus Mary Mcmillan, FELICIA.DECISION SCIENCE ANALYST [address] [place] [address] Referral ID Status Reason Start Date Expiration Date V isits Requested Visits Authorized [id number] Authorized 12/03/2023 12/01/2024 1 1 Specialty Diagnoses / Procedures Referred By Contac t Referred To Contact Diagnoses Class 3 severe obesity with body mass index (BMI) of 45.0 to 49.9 in adult, unspecified obesity type, unspecified whether serious comorbidity present (HCC) Procedures CONSULT [facility] OFFICE/OUTPATIENT [facility] 60 MINUTES Mary Mcmillan APRN.DECISION SCIENCE ANALYST [address] [place] [address] Referral ID Status Reason Start Date Expiration Date Visits Requested Visits Authorized [id number] Authorized PCP Requested Referral 12/03/2023 12/02/2024 1 1 Specialty Diagnoses / Procedures Referred By Contac t Referred To Contact Diagnoses BRITTANY (generalized anxiety disorder) Procedures CONSULT TO [facility] OFFICE/OUTPATIENT [facility] 60 MINUTES Mary Mcmillan, FELICIA.DECISION SCIENCE ANALYST [address] [place] [address] Referral ID Status Reason Start Date Expiration Date Visits Requested Visits Authorized [id number] Pending Review PCP Requested Referral 12/03/2023 03/02/2024 [...] or prosecute any alcohol or drug abuse patient.[facility] HospitalIn the event this information is protected by the Federal Confidentiality of Alcohol and Drug Abuse Patient Records regulations: The Federal rules restrict any use of the information to criminally investigate or prosecute any alcohol or drug abuse patient.[facility] HospitalIn the event this information is protected by the Federal Confidentiality of Alcohol and Drug Abuse Patient Records regulations: The Federal rules restrict any use of the information to criminally investigate or prosecute any alcohol or drug abuse patient.[facility] HospitalIn the event this information is protected by the Federal Confidentiality of Alcohol and Drug Abuse Patient Records regulations: The Federal rules restrict any use of the information to criminally investigate or prosecute any alcohol or drug abuse patient.[facility] HospitalIn the event this information is protected by the Federal Confidentiality of Alcohol and Drug Abuse Patient Records regulations: The Federal rules restrict any use of the information to criminally investigate or prosecute any alcohol or drug abuse patient.[facility] HospitalIn the event this information is protected by the Federal Confidentiality of Alcohol and Drug Abuse Patient Records regulations: The Federal rules restrict any use of the information to criminally investigate or prosecute any alcohol or drug abuse patient.[facility] HospitalIn the event this information is protected by the Federal Confidentiality of Alcohol and Drug Abuse Patient Records regulations: The Federal rules restrict any use of the information to criminally investigate or prosecute any alcohol or drug abuse patient.[facility] HospitalIn the event this information is protected by the Federal Confidentiality of Alcohol and Drug Abuse Patient Records regulations: The Federal rules restrict any use of the information to criminally investigate or prosecute any alcohol or drug abuse patient.[facility] HospitalIn the event this information is protected by the Federal Confidentiality of Alcohol and Drug Abuse Patient Records regulations: The Federal rules restrict any use of the information to criminally investigate or prosecute any alcohol or drug abuse patient.[facility] HospitalIn the event this information is protected by the Federal Confidentiality of Alcohol and Drug Abuse Patient Records regulations: The Federal rules restrict any use of the information to criminally investigate or prosecute any alcohol or drug abuse patient.[facility] HospitalIn the event this information is protected by the Federal Confidentiality of Alcohol and Drug Abuse Patient Records regulations: The Federal rules restrict any use of the information to criminally investigate or prosecute any alcohol or drug abuse patient.[facility] HospitalIn the event this information is protected by the Federal Confidentiality of Alcohol and Drug Abuse Patient Records regulations: The Federal rules restrict any use of the information to criminally investigate or prosecute any alcohol or drug abuse patient.[facility] HospitalIn the event this information is protected by the Federal Confidentiality of Alcohol and Drug Abuse Patient Records regulations: The Federal rules restrict any use of the information to criminally investigate or prosecute any alcohol or drug abuse patient.[facility] HospitalIn the event this information is protected by the Federal Confidentiality of Alcohol and Drug Abuse Patient Records regulations: The Federal rules restrict any use of the information to criminally investigate or prosecute any alcohol or drug abuse patient.[facility] HospitalIn the event this information is protected by the Federal Confidentiality of Alcohol and Drug Abuse Patient Records regulations: The Federal rules restrict any use of the information to criminally investigate or prosecute any alcohol or drug abuse patient.[facility] HospitalIn the event this information is protected by the Federal Confidentiality of Alcohol and Drug Abuse Patient Records regulations: The Federal rules restrict any use of the information to criminally investigate or prosecute any alcohol or drug abuse patient.[facility] HospitalIn the event this information is protected by the Federal Confidentiality of Alcohol and Drug Abuse Patient Records regulations: The Federal rules restrict any use of the information to criminally investigate or prosecute any alcohol or drug abuse patient.[facility] HospitalIn the event this information is protected by the Federal Confidentiality of Alcohol and Drug Abuse Patient Records regulations: The Federal rules restrict any use of the information to criminally investigate or prosecute any alcohol or drug abuse patient.[facility] HospitalIn the event this information is protected by the Federal Confidentiality of Alcohol and Drug Abuse Patient Records regulations: The Federal rules restrict any use of the information to criminally investigate or prosecute any alcohol or drug abuse patient.[facility] HospitalIn the event this information is protected by the Federal Confidentiality of Alcohol and Drug Abuse Patient Records regulations: The Federal rules restrict any use of the information to criminally investigate or prosecute any alcohol or drug abuse patient.[facility] HospitalIn the event this information is protected by the Federal Confidentiality of Alcohol and Drug Abuse Patient Records regulations: The Federal rules restrict any use of the information to criminally investigate or prosecute any alcohol or drug abuse patient.[facility] HospitalIn the event this information is protected by the Federal Confidentiality of Alcohol and Drug Abuse Patient Records regulations: The Federal rules restrict any use of the information to criminally investigate or prosecute any alcohol or drug abuse patient.[facility] HospitalIn the event this information is protected by the Federal Confidentiality of Alcohol and Drug Abuse Patient Records regulations: The Federal rules restrict any use of the information to criminally investigate or prosecute any alcohol or drug abuse patient.[facility] HospitalIn the event this information is protected by the Federal Confidentiality of Alcohol and Drug Abuse Patient Records regulations: The Federal rules restrict any use of the information to criminally investigate or prosecute any alcohol or drug abuse patient.[facility] HospitalIn the event this information is protected by the Federal Confidentiality of Alcohol and Drug Abuse Patient Records regulations: The Federal rules restrict any use of the information to criminally investigate or prosecute any alcohol or drug abuse patient.[facility] HospitalIn the event this information is protected by the Federal Confidentiality of Alcohol and Drug Abuse Patient Records regulations: The Federal rules restrict any use of the information to criminally investigate or prosecute any alcohol or drug abuse patient.[facility] HospitalIn the event this information is protected by the Federal Confidentiality of Alcohol and Drug Abuse Patient Records regulations: The Federal rules restrict any use of the information to criminally investigate or prosecute any alcohol or drug abuse patient.[facility] HospitalIn the event this information is protected by the Federal Confidentiality of Alcohol and Drug Abuse Patient Records regulations: The Federal rules restrict any use of the information to criminally investigate or prosecute any alcohol or drug abuse patient.[facility] HospitalIn the event this information is protected by the Federal Confidentiality of Alcohol and Drug Abuse Patient Records regulations: The Federal rules restrict any use of the information to criminally investigate or prosecute any alcohol or drug abuse patient.[facility] HospitalIn the event this information is protected by the Federal Confidentiality of Alcohol and Drug Abuse Patient Records regulations: The Federal rules restrict any use of the information to criminally investigate or prosecute any alcohol or drug abuse patient.[facility] HospitalIn the event this information is protected by the Federal Confidentiality of Alcohol and Drug Abuse Patient Records regulations: The Federal rules restrict any use of the information to criminally investigate or prosecute any alcohol or drug abuse patient.[facility] HospitalIn the event this information is protected by the Federal Confidentiality of Alcohol and Drug Abuse Patient Records regulations: The Federal rules restrict any use of the information to criminally investigate or prosecute any alcohol or drug abuse patient.[facility] HospitalIn the event this information is protected by the Federal Confidentiality of Alcohol and Drug Abuse Patient Records regulations: The Federal rules restrict any use of the information to criminally investigate or prosecute any alcohol or drug abuse patient.[facility] HospitalIn the event this information is protected by the Federal Confidentiality of Alcohol and Drug Abuse Patient Records regulations: The Federal rules restrict any use of the information to criminally investigate or prosecute any alcohol or drug abuse patient.[facility] HospitalIn the event this information is protected by the Federal Confidentiality of Alcohol and Drug Abuse Patient Records regulations: The Federal rules restrict any use of the information to criminally investigate or prosecute any alcohol or drug abuse patient.[facility] HospitalIn the event this information is protected by the Federal Confidentiality of Alcohol and Drug Abuse Patient Records regulations: The Federal rules restrict any use of the information to criminally investigate or prosecute any alcohol or drug abuse patient.[facility] HospitalIn the event this information is protected by the Federal Confidentiality of Alcohol and Drug Abuse Patient Records regulations: The Federal rules restrict any use of the information to criminally investigate or prosecute any alcohol or drug abuse patient.[facility] HospitalIn the event this information is protected by the Federal Confidentiality of Alcohol and Drug Abuse Patient Records regulations: The Federal rules restrict any use of the information to criminally investigate or prosecute any alcohol or drug abuse patient.[facility] HospitalIn the event this information is protected by the Federal Confidentiality of Alcohol and Drug Abuse Patient Records regulations: The Federal rules restrict any use of the information to criminally investigate or prosecute any alcohol or drug abuse patient.[facility] HospitalIn the event this information is protected by the Federal Confidentiality of Alcohol and Drug Abuse Patient Records regulations: The Federal rules restrict any use of the information to criminally investigate or prosecute any alcohol or drug abuse patient.[facility] HospitalIn the event this information is protected by the Federal Confidentiality of Alcohol and Drug Abuse Patient Records regulations: The Federal rules restrict any use of the information to criminally investigate or prosecute any alcohol or drug abuse patient.[facility] HospitalIn the event this information is protected by the Federal Confidentiality of Alcohol and Drug Abuse Patient Records regulations: The Federal rules restrict any use of the information to criminally investigate or prosecute any alcohol or drug abuse patient.[facility] HospitalIn the event this information is protected by the Federal Confidentiality of Alcohol and Drug Abuse Patient Records regulations: The Federal rules restrict any use of the information to criminally investigate or prosecute any alcohol or drug abuse patient.[facility] HospitalIn the event this information is protected by the Federal Confidentiality of Alcohol and Drug Abuse Patient Records regulations: The Federal rules restrict any use of the information to criminally investigate or prosecute any alcohol or drug abuse patient.[facility] HospitalIn the event this information is protected by the Federal Confidentiality of Alcohol and Drug Abuse Patient Records regulations: The Federal rules restrict any use of the information to criminally investigate or prosecute any alcohol or drug abuse patient.[facility] HospitalIn the event this information is protected by the Federal Confidentiality of Alcohol and Drug Abuse Patient Records regulations: The Federal rules restrict any use of the information to criminally investigate or prosecute any alcohol or drug abuse patient.[facility] HospitalIn the event this information is protected by the Federal Confidentiality of Alcohol and Drug Abuse Patient Records regulations: The Federal rules restrict any use of the information to criminally investigate or prosecute any alcohol or drug abuse patient.[facility] HospitalIn the event this information is protected by the Federal Confidentiality of Alcohol and Drug Abuse Patient Records regulations: The Federal rules restrict any use of the information to criminally investigate or prosecute any alcohol or drug abuse patient.[facility] HospitalIn the event this information is protected by the Federal Confidentiality of Alcohol and Drug Abuse Patient Records regulations: The Federal rules restrict any use of the information to criminally investigate or prosecute any alcohol or drug abuse patient.[facility] HospitalIn the event this information is protected by the Federal Confidentiality of Alcohol and Drug Abuse Patient Records regulations: The Federal rules restrict any use of the information to criminally investigate or prosecute any alcohol or drug abuse patient.[facility] HospitalIn the event this information is protected by the Federal Confidentiality of Alcohol and Drug Abuse Patient Records regulations: The Federal rules restrict any use of the information to criminally investigate or prosecute any alcohol or drug abuse patient.[facility] HospitalIn the event this information is protected by the Federal Confidentiality of Alcohol and Drug Abuse Patient Records regulations: The Federal rules restrict any use of the information to criminally investigate or prosecute any alcohol or drug abuse patient.[facility] HospitalIn the event this information is protected by the Federal Confidentiality of Alcohol and Drug Abuse Patient Records regulations: The Federal rules restrict any use of the information to criminally investigate or prosecute any alcohol or drug abuse patient.[facility] HospitalIn the event this information is protected by the Federal Confidentiality of Alcohol and Drug Abuse Patient Records regulations: The Federal rules restrict any use of the information to criminally investigate or prosecute any alcohol or drug abuse patient.[facility] HospitalIn the event this information is protected by the Federal Confidentiality of Alcohol and Drug Abuse Patient Records regulations: The Federal rules restrict any use of the information to criminally investigate or prosecute any alcohol or drug abuse patient.[facility] HospitalIn the event this information is protected by the Federal Confidentiality of Alcohol and Drug Abuse Patient Records regulations: The Federal rules restrict any use of the information to criminally investigate or prosecute any alcohol or drug abuse patient.[facility] HospitalIn the event this information is protected by the Federal Confidentiality of Alcohol and Drug Abuse Patient Records regulations: The Federal rules restrict any use of the information to criminally investigate or prosecute any alcohol or drug abuse patient.[facility] HospitalIn the event this information is protected by the Federal Confidentiality of Alcohol and Drug Abuse Patient Records regulations: The Federal rules restrict any use of the information to criminally investigate or prosecute any alcohol or drug abuse patient.[facility] HospitalIn the event this information is protected by the Federal Confidentiality of Alcohol and Drug Abuse Patient Records regulations: The Federal rules restrict any use of the information to criminally investigate or prosecute any alcohol or drug abuse patient.[facility] HospitalIn the event this information is protected by the Federal Confidentiality of Alcohol and Drug Abuse Patient Records regulations: The Federal rules restrict any use of the information to criminally investigate or prosecute any alcohol or drug abuse patient.[facility] HospitalIn the event this information is protected by the Federal Confidentiality of Alcohol and Drug Abuse Patient Records regulations: The Federal rules restrict any use of the information to criminally investigate or prosecute any alcohol or drug abuse patient.[facility] HospitalIn the event this information is protected by the Federal Confidentiality of Alcohol and Drug Abuse Patient Records regulations: The Federal rules restrict any use of the information to criminally investigate or prosecute any alcohol or drug abuse patient.[facility] HospitalIn the event this information is protected by the Federal Confidentiality of Alcohol and Drug Abuse Patient Records regulations: The Federal rules restrict any use of the information to criminally investigate or prosecute any alcohol or drug abuse patient.[facility] HospitalIn the event this information is protected by the Federal Confidentiality of Alcohol and Drug Abuse Patient Records regulations: The Federal rules restrict any use of the information to criminally investigate or prosecute any alcohol or drug abuse patient.[facility] HospitalIn the event this information is protected by the Federal Confidentiality of Alcohol and Drug Abuse Patient Records regulations: The Federal rules restrict any use of the information to criminally investigate or prosecute any alcohol or drug abuse patient.[facility] HospitalIn the event this information is protected by the Federal Confidentiality of Alcohol and Drug Abuse Patient Records regulations: The Federal rules restrict any use of the information to criminally investigate or prosecute any alcohol or drug abuse patient.[facility] HospitalIn the event this information is protected by the Federal Confidentiality of Alcohol and Drug Abuse Patient Records regulations: The Federal rules restrict any use of the information to criminally investigate or prosecute any alcohol or drug abuse patient.[facility] HospitalIn the event this information is protected by the Federal Confidentiality of Alcohol and Drug Abuse Patient Records regulations: The Federal rules restrict any use of the information to criminally investigate or prosecute any alcohol or drug abuse patient.[facility] HospitalIn the event this information is protected by the Federal Confidentiality of Alcohol and Drug Abuse Patient Records regulations: The Federal rules restrict any use of the information to criminally investigate or prosecute any alcohol or drug abuse patient.[facility] HospitalIn the event this information is protected by the Federal Confidentiality of Alcohol and Drug Abuse Patient Records regulations: The Federal rules restrict any use of the information to criminally investigate or prosecute any alcohol or drug abuse patient.[facility] HospitalIn the event this information is protected by the Federal Confidentiality of Alcohol and Drug Abuse Patient Records regulations: The Federal rules restrict any use of the information to criminally investigate or prosecute any alcohol or drug abuse patient.[facility] HospitalIn the event this information is protected by the Federal Confidentiality of Alcohol and Drug Abuse Patient Records regulations: The Federal rules restrict any use of the information to criminally investigate or prosecute any alcohol or drug abuse patient.[facility] HospitalIn the event this information is protected by the Federal Confidentiality of Alcohol and Drug Abuse Patient Records regulations: The Federal rules restrict any use of the information to criminally investigate or prosecute any alcohol or drug abuse patient.[facility] HospitalIn the event this information is protected by the Federal Confidentiality of Alcohol and Drug Abuse Patient Records regulations: The Federal rules restrict any use of the information to criminally investigate or prosecute any alcohol or drug abuse patient.[facility] HospitalIn the event this information is protected by the Federal Confidentiality of Alcohol and Drug Abuse Patient Records regulations: The Federal rules restrict any use of the information to criminally investigate or prosecute any alcohol or drug abuse patient.[facility] HospitalIn the event this information is protected by the Federal Confidentiality of Alcohol and Drug Abuse Patient Records regulations: The Federal rules restrict any use of the information to criminally investigate or prosecute any alcohol or drug abuse patient.[facility] HospitalIn the event this information is protected by the Federal Confidentiality of Alcohol and Drug Abuse Patient Records regulations: The Federal rules restrict any use of the information to criminally investigate or prosecute any alcohol or drug abuse patient.[facility] HospitalIn the event this information is protected by the Federal Confidentiality of Alcohol and Drug Abuse Patient Records regulations: The Federal rules restrict any use of the information to criminally investigate or prosecute any alcohol or drug abuse patient.[facility] HospitalIn the event this information is protected by the Federal Confidentiality of Alcohol and Drug Abuse Patient Records regulations: The Federal rules restrict any use of the information to criminally investigate or prosecute any alcohol or drug abuse patient.[facility] HospitalIn the event this information is protected by the Federal Confidentiality of Alcohol and Drug Abuse Patient Records regulations: The Federal rules restrict any use of the information to criminally investigate or prosecute any alcohol or drug abuse patient.[facility] HospitalIn the event this information is protected by the Federal Confidentiality of Alcohol and Drug Abuse Patient Records regulations: The Federal rules restrict any use of the information to criminally investigate or prosecute any alcohol or drug abuse patient.[facility] HospitalIn the event this information is protected by the Federal Confidentiality of Alcohol and Drug Abuse Patient Records regulations: The Federal rules restrict any use of the information to criminally investigate or prosecute any alcohol or drug abuse patient.[facility] HospitalIn the event this information is protected by the Federal Confidentiality of Alcohol and Drug Abuse Patient Records regulations: The Federal rules restrict any use of the information to criminally investigate or prosecute any alcohol or drug abuse patient.[facility] HospitalIn the event this information is protected by the Federal Confidentiality of Alcohol and Drug Abuse Patient Records regulations: The Federal rules restrict any use of the information to criminally investigate or prosecute any alcohol or drug abuse patient.[facility] HospitalIn the event this information is protected by the Federal Confidentiality of Alcohol and Drug Abuse Patient Records regulations: The Federal rules restrict any use of the information to criminally investigate or prosecute any alcohol or drug abuse patient.[facility] HospitalIn the event this information is protected by the Federal Confidentiality of Alcohol and Drug Abuse Patient Records regulations: The Federal rules restrict any use of the information to criminally investigate or prosecute any alcohol or drug abuse patient.[facility] HospitalIn the event this information is protected by the Federal Confidentiality of Alcohol and Drug Abuse Patient Records regulations: The Federal rules restrict any use of the information to criminally investigate or prosecute any alcohol or drug abuse patient.[facility] HospitalIn the event this information is protected by the Federal Confidentiality of Alcohol and Drug Abuse Patient Records regulations: The Federal rules restrict any use of the information to criminally investigate or prosecute any alcohol or drug abuse patient.[facility] HospitalIn the event this information is protected by the Federal Confidentiality of Alcohol and Drug Abuse Patient Records regulations: The Federal rules restrict any use of the information to criminally investigate or prosecute any alcohol or drug abuse patient.[facility] HospitalIn the event this information is protected by the Federal Confidentiality of Alcohol and Drug Abuse Patient Records regulations: The Federal rules restrict any use of the information to criminally investigate or prosecute any alcohol or drug abuse patient.[facility] HospitalIn the event this information is protected by the Federal Confidentiality of Alcohol and Drug Abuse Patient Records regulations: The Federal rules restrict any use of the information to criminally investigate or prosecute any alcohol or drug abuse patient.[facility] Reason for Visit (unrecogniz ed section and [...] Exam Specialty Diagnoses / Procedures Referred By Contpushpa t Referred To Contact Gynecology Diagnoses Women's annual routine gynecological examination Procedures CONSULT TO GYNECOLOGY OFFICE/OUTPATIENT NEW HIGH MDM 60-74 MINUTES Mary Mcmillan, FELICIA.DECISION SCIENCE ANALYST [address] [place] [address] Referral ID Status Reason Start Date Expiration Date V isits Requested Visits Authorized [id number] Closed PCP Requested Referral Auto-Generated Referral 12/02/2022 12/02/2023 1 1 Reason Comments Sore Throat ST, bodyaches and fe anton-exposed to COVID x 2 days Reason Comments Patient Education Assessment Specialty Diagnoses / Procedures Referred By Contac t Referred To Contact Nutrition Diagnoses Weight gain Procedures CONSULT TO NUTRITION THERAPY MEDICAL NUTRITION ASSMT&IVNTJ INDIV EACH 15 FL MEDICAL NUTRITION ASSMT&IVNTJ INDIV EACH 15 FL MEDICAL NUTRITION ASSMT&IVNTJ INDIV EACH 15 FL MEDICAL NUTRITION ASSMT&IVNTJ INDIV EACH 15 FL Mary Mcmillan APRN.DECISION SCIENCE ANALYST [address] [place] [address] Referral ID Status Reason Start Date Expiration Date V isits Requested Visits Authorized [id number] Closed PCP Requested Referral 12/02/2022 12/02/2023 1 1 Reason Onset Date Comments Refill Request 12/29/[address] Specialty Diagnoses / Procedures Referred By Hansa t Referred To Contact CT IMAGING Diagnoses Arthritis of midfoot Contusion of lesser toe of left foot without damage to nail, initial encounter Pain in left foot Procedures CT FOOT WO IVCON LEFT CT LOWER EXTREMITY W/O CONTRAST MATERIAL Ronak Pulido [address] [place] [address] [place] [address] Referral ID Status Reason Start Date Expiration Date V isits Requested Visits Authorized [id number] Closed Auto-Generate d Referral 10/08/2022 11/07/2023 1 [...] Orders Specialty Diagnoses / Procedures Referred By Contac t Referred To Contact CT IMAGING Diagnoses Chronic cough Abnormal chest x-ray Procedures CT CHEST W IVCON DIAGNOSTIC COMPUTED TOMOGRAPHY THORAX W/CONTRAST Mary Mcmillan, FELICIA.DECISION SCIENCE ANALYST [address] [place] [address] [place] [address] Referral ID Status Reason Start Date Expiration Date V isits Requested Visits Authorized [id number] Closed Auto-Generate d Referral 10/21/2023 12/20/2023 1 1 Reason Comments Results Chest CT Reason Comments Behavioral Health/Social Work Reason Comments Wellness Reason Comments Follow Up 5 1/2 months post visit OA bilateral kne es Reason Comments Surgical Consult NEW Specialty Diagnoses / Procedures Referred By Hansa t Referred To Contact Bariatrics Diagnoses Obesity, unspecified Procedures eval n treat [facility] [address] [place] [address] Referral ID Status Reason Start Date Expiration Date V isits Requested Visits Authorized [id number] Pending Review 12/20/2023 06/17/2024 1 1 Reason [...] nt Reason Comments Weight Loss D/E 5/6 Reason Comments Patient Update Care Teams (unrecognized sec tion and content) Lead Investigator Relationship Specialty Start Date End Date Susan Sevilla MD [address] [facility] [place] [address] PCP - General Family Practice 03/26/17 Lead Investigator Relationship Specialty Start Date End Date Susan Sevilla MD [address] [facility] [place] [address] PCP - General Family Practice 03/26/17 Lead Investigator Relationship Specialty Start Date End Date Susan Sevilla MD [address] [facility] [place] [address] PCP - General Family Practice 03/26/17 Lead Investigator Relationship Specialty Start Date End Date Susan Sevilla MD [address] [facility] [place] [address] PCP - General Family Practice 03/26/17 Lead Investigator Relationship Specialty Start Date End Date Susan Sevilla MD [address] [facility] [place] [address] PCP - General Family Practice 03/26/17 Lead Investigator Relationship Specialty Start Date End Date Susan Sevilla MD [address] [facility] [place] [address] PCP - General Family Medicine 03/26/17 Lead Investigator Relationship Specialty Start Date End Date Susan Sevilla MD [address] [facility] [place] [address] PCP - General Family Medicine 03/26/17 Team [...] Nani Parnell MD Attending Provider, Referring P bebe Active Lead Investigator Relationship Specialty Start Date End Date Susan Sevilla MD [address] [place] [address] PCP - General Family Medicine 03/26/17 Lead Investigator Relationship Specialty Start Date End Date Susan Sevilla MD [address] [place] [address] PCP - General Family Medicine 03/26/17 Lead Investigator Relationship Specialty Start Date End Date Susan Sevilla MD [address] [place] [address] PCP - General Family Medicine 03/26/17 Lead Investigator Relationship Specialty Start Date End Date Susan Sevilla MD [address] [place] [address] PCP - General Family Medicine 03/26/17 Lead Investigator Relationship Specialty Start Date End Date Susan Sevilla MD [address] [place] [address] PCP - General Family Medicine 03/26/17 Lead Investigator Relationship Specialty Start Date End Date Susan Sevilla MD [address] [place] [address] PCP - General Family Medicine 03/26/17 Lead Investigator Relationship Specialty Start Date End Date Susan Sevilla MD [address] [place] [address] PCP - General Family Medicine 03/26/17 Lead Investigator Relationship Specialty Start Date End Date Susan Sevilla MD [address] [facility] [place] [address] PCP - General Family Medicine 03/26/17 Lead Investigator Relationship Specialty Start Date End Date Susan Sevilla MD [address] [facility] [place] [address] PCP - General Family Medicine 03/26/17 Lead Investigator Relationship Specialty Start Date End Date Susan Sevilla MD [address] [facility] [place] [address] PCP - General Family Medicine 03/26/17 Lead Investigator Relationship Specialty Start Date End Date Susan Sevilla MD [address] [facility] [place] [address] PCP - General Family Medicine 03/26/17 Lead Investigator Relationship Specialty Start Date End Date Susan Sevilla MD [address] [facility] [place] [address] PCP - General Family Medicine 03/26/17 Lead Investigator Relationship Specialty Start Date End Date Susan Sevilla MD [address] [facility] [place] [address] PCP - General Family Medicine 03/26/17 Lead Investigator Relationship Specialty Start Date End Date Susan Sevilla MD [address] [facility] [place] [address] PCP - General Family Medicine 03/26/17 Lead Investigator Relationship Specialty Start Date End Date Susan Sevilla MD [address] [facility] [place] [address] PCP - General Family Medicine 03/26/17 Lead Investigator Relationship Specialty Start Date End Date Susan Sevilla MD [address] [facility] [place] [address] PCP - General Family Medicine 03/26/17 Lead Investigator Relationship Specialty Start Date End Date Susan Sevilla MD [address] [facility] [place] [address] PCP - General Family Medicine 03/26/17 Lead Investigator Relationship Specialty Start Date End Date Susan Sevilla MD [address] [facility] [place] [address] PCP - General Family Medicine 03/26/17 Lead Investigator Relationship Specialty Start Date End Date Susan Sevilla MD [address] [facility] [place] [address] PCP - General Family Medicine 03/26/17 Lead Investigator Relationship Specialty Start Date End Date Susan Sevilla MD [address] [facility] [place] [address] PCP - General Family Medicine 03/26/17 Lead Investigator Relationship Specialty Start Date End Date Susan Sevilla MD [address] [facility] [place] [address] PCP - General Family Medicine 03/26/17 Lead Investigator Relationship Specialty Start Date End Date Susan Sevilla MD [address] [facility] [place] [address] PCP - General Family Medicine 03/26/17 Lead Investigator Relationship Specialty Start Date End Date Susan Sevilla MD [address] [facility] [place] [address] PCP - General Family Medicine 03/26/17 Lead Investigator Relationship Specialty Start Date End Date Susan Sevilla MD [address] [place] [address] PCP - General Family Medicine 03/26/17 Lead Investigator Relationship Specialty Start Date End Date Susan Sevilla MD [address] [place] [address] PCP - General Family Medicine 03/26/17 Lead Investigator Relationship Specialty Start Date End Date Susan Sevilla MD [address] [place] [address] PCP - General Family Medicine 03/26/17 Lead Investigator Relationship Specialty Start Date End Date Susan Sevilla MD [address] [facility] [place] [address] PCP - General Family Medicine 03/26/17 Lead Investigator Relationship Specialty Start Date End Date Susan Sevilla MD [address] [facility] [place] [address] PCP - General Family Medicine 03/26/17 Lead Investigator Relationship Specialty Start Date End Date Susan Sevilla MD [address] [facility] [place] [address] PCP - General Family Medicine 03/26/17 Lead Investigator Relationship Specialty Start Date End Date Susan Sevilla MD [address] [place] [address] PCP - General Family Medicine 03/26/17 Lead Investigator Relationship Specialty Start Date End Date Susan Sevilla MD [address] [facility] [place] [address] PCP - General Family Medicine 03/26/17 Lead Investigator Relationship Specialty Start Date End Date Susan Sevilla MD [address] [facility] [place] [address] PCP - General Family Medicine 03/26/17 Lead Investigator Relationship Specialty Start Date End Date Susan Sevilla MD [address] [facility] [place] [address] PCP - General Family Medicine 03/26/17 Lead Investigator Relationship Specialty Start Date End Date Susan Sevilla MD [address] [facility] [place] [address] PCP - General Family Medicine 03/26/17 Lead Investigator Relationship Specialty Start Date End Date Susan Sevilla MD [address] [facility] [place] [address] PCP - General Family Medicine 03/26/17 Lead Investigator Relationship Specialty Start Date End Date Susan Sevilla MD [address] [facility] [place] [address] PCP - General Family Medicine 03/26/17 Lead Investigator Relationship Specialty Start Date End Date Susan Sevilla MD [address] [facility] [place] [address] PCP - General Family Medicine 03/26/17 Lead Investigator Relationship Specialty Start Date End Date Susan Sevilla [address] [place] [address] PCP - General Family Medicine 01/04/24 Nate Winters MD [address] [place] [address] [address] [place] [address] Surgeon General Surgery 12/22/23 Lead Investigator Relationship Specialty Start Date End Date Susan Sevilla [address] [place] [address] PCP - General Family Medicine 01/04/24 Nate Winters MD [address] [place] [address] [address] [place] [address] Surgeon General Surgery 12/22/23 Lead Investigator Relationship Specialty Start Date End Date Susan Sevilla [address] [place] [address] PCP - General Family Medicine 01/04/24 Nate Winters MD [address] [place] [address] [address] [place] [address] Surgeon General Surgery 12/22/23 Lead Investigator Relationship Specialty Start Date End Date Susan Sevilla [address] [place] [address] PCP - General Family Medicine 01/04/24 Nate Winters MD [address] [place] [address] [address] [place] [address] Surgeon General Surgery 12/22/23 Lead Investigator Relationship Specialty Start Date End Date Susan Sevilla [address] [place] [address] PCP - General Family Medicine 01/04/24 Nate Winters MD [address] [place], [place] [id number] Surgeon General Surgery 12/22/23 Lead Investigator Relationship Specialty Start Date End Date Susan Sevilla MD [address] [place] [address] PCP - General Family Medicine 03/26/17 Lead Investigator Relationship Specialty Start Date End Date Susan Sevilla [address] [place] [address] PCP - General Family Medicine 01/04/24 Nate Winters MD [address] [place] [address] [address] [place], [place] [id number] Surgeon General Surgery 12/22/23 Lead Investigator Relationship Specialty Start Date End Date Susan Sevilla [address] [place] [address] PCP - General Family Medicine 01/04/24 Nate Winters MD [address] [place], [place] [id number] Surgeon General Surgery 12/22/23 Lead Investigator Relationship Specialty Start Date End Date Susan Sevilla [address] [place] [address] PCP - General Family Medicine 01/04/24 [address] Win[address] MD [address] [place] [address] Surgeon General Surgery 12/22/23 Lead Investigator Relationship Specialty Start Date End Date Susan Sevilla [address] [place] [address] PCP - General Family Medicine 01/04/24 Nate Winters MD [address] [place] [address] [address] [place], [place] [id number] Surgeon General Surgery 12/22/23 Lead Investigator Relationship Specialty Start Date End Date Susan Sevilla MD [address] [place] [address] PCP - General Family Medicine 03/26/17 Mary Mcmillan APRN.DECISION SCIENCE ANALYST [address] [place] [address] Nail Making Machine Setter Family Medicine 03/12/24 Lead Investigator Relationship Specialty Start Date End Date Susan Sevilla MD [address] [place] [address] PCP - General Family Medicine 03/26/17 Mary Mcmillan APRN.DECISION SCIENCE ANALYST [address] [place] [address] Nail Making Machine Setter Family Medicine 03/12/24 Lead Investigator Relationship Specialty Start Date End Date Susan Sevilla [address] [place] [address] PCP - General Family Medicine 01/04/24 Nate Winters MD [address] [place] [address] [address] [place] [address] Surgeon General Surgery 12/22/23 Lead Investigator Relationship Specialty Start Date End Date Susan Sevilla [address] [place] [address] PCP - General Family Medicine 01/04/24 Nate Wniters MD [address] [place] [address] [address] [place], [place] [id number] Surgeon General Surgery 12/22/23 Lead Investigator Relationship Specialty Start Date End Date Susan Sevilla MD [address] [place] [address] PCP - General Family Medicine 03/26/17 Mary Mcmillan APRN.DECISION SCIENCE ANALYST [address] [place] [address] Nail Making Machine Setter Family Medicine 03/12/24 Neal Gomez APRN.DECISION SCIENCE ANALYST [address] [place] [address] Nail Making Machine Setter Family Medicine 03/21/24 Lead Investigator Relationship Specialty Start Date End Date Susan Sevilla MD [address] [place] [address] PCP - General Family Medicine 03/26/17 Mary Mcmillan APRN.DECISION SCIENCE ANALYST [address] [place] [address] Nail Making Machine Setter Family Medicine 03/12/24 Neal Gomez APRN.DECISION SCIENCE ANALYST [address] [place] [address] Nail Making Machine Setter Family Medicine 03/21/24 Lead Investigator Relationship Specialty Start Date End Date Susan Sevilla [address] [place] [address] PCP - General Family Medicine 01/04/24 Nate Winters MD [address] [place], [place] [id number] Surgeon General Surgery 12/22/23 Lead Investigator Relationship Specialty Start Date End Date Susan Sevilla MD [address] [place] [address] PCP - General Family Medicine 03/26/17 Neal Gomez, FELICIA.DECISION SCIENCE ANALYST [address] [place] [address] Nail Making Machine Setter Family Medicine 03/21/24 Lead Investigator Relationship Specialty Start Date End Date Susan Sevilla MD [address] [place] [address] PCP - General Family Medicine 03/26/17 Neal Gomez, DATA SERVICES DEVELOPER.DECISION SCIENCE ANALYST [address] [place] [address] Nail Making Machine Setter Family Medicine 03/21/24 Lead Investigator Relationship Specialty Start Date End Date Susan Sevilla [address] [place] [address] PCP - General Family Medicine 01/04/24 Nate Winters MD [address] [place] [address] [address] [place] [address] Surgeon General Surgery 12/22/23 Lead Investigator Relationship Specialty Start Date End Date Susan Sevilla [address] [place] [address] PCP - General Family Medicine 01/04/24 Nate Winters MD [address] [place] [address] Surgeon General Surgery 12/22/23 Team Status: Active Member Role/Relationship Status Dates Dr. Susan Sevilla MD Primary Care Provider Active Team Status: Inactive Member Role/Relationship Status Dates Dr. Susan Sevilla MD Primary Care Provider Active Start: December 09, 2024 End: December 09, 2024 Dr. Makenzie Gary MD Emergency Provider Active S tart: December 09, 2024 End: December 09, 2024 Lead Investigator Relationship Specialty Start Date End Date Susan Sevilla MD [address] [place], [place] [phone] PCP - General Family Medicine 03/26/17 Neal Gomez APRN.DECISION SCIENCE ANALYST [address] [place], [place] [phone] [employer] Family Medicine 03/21/24 INFORMATION SOURCE (unrecogn ized section and content) DATE CREATED AUTHOR 06/30/2023 [facility] DATE CREATED AUTHOR AUTHOR'S ORGANIZ ATION 11/25/2024 [facility] DATE CREATED AUTHOR AUTHOR'S ORGANIZ ATION 12/01/2024 [facility] DATE CREATED AUTHOR AUTHOR'S ORGANIZ ATION 12/11/2024 [facility] Continuous Active and Recently Administ ered Medications (unrecognized section and content) Medication Order 03/08/2024 03/09/2024 03/10/2024 sodium chloride 0.9 % infusion 50 mL/hr, IntraVENous, Continuous, Starting on Wed03/10/24 at 0930, Preprocedure 0955 ([facility] ider: Blair Adan RN) PRN Medication Order [...] BE BASED ON THE PRIMARY CLINICAL RECORDS. [facility] provides no warranty or guarantee of the accuracy or completeness of information in this document.
[2024-12-11] MEDS: Lidocaine 1% (20 ml mdv) 20 ML Vial INFILT (23:17)
[2024-12-11 23:32] LABS: Hematocrit 40.8 % (37-47); Hemoglobin 13.4 g/dL (12.0-15.0); Immature Granulocytes Count 0.040 X10^3/uL (0.0-0.0); Mean Corp Hgb Conc 32.8 g/dL (32-36); Mean Corpuscular Volume 88.1 fL (81-99); Mean Platelet Vol. 9.8 fl (6.2-12.0); NRBC Flagged by Analyzer 0 % (0-5); Platelet Count 271 K/mm3 (150-450); RBC Distribution Width CV 13.1 % (11.6-14.6); RBC Distribution Width SD 41.8 fl (35.1-43.9); Red Blood Count 4.63 M/mm3 (4.2-5.4); White Blood Count 7.9 K/mm3 (4.4-11.0)
[2024-12-11] MEDS: Vancomycin HCl 2,000 MG in 0.9% Normal Saline (500mL Bag) 500 ML 250 MG IV (23:38)
[2024-12-11 23:48] VITALS: BP 136/65; PULSE 96; RESP 20; TEMP 36.7; O2SAT 100
[2024-12-11 23:57] LABS: Anion Gap 15 (5-15); BUN 13 mg/dL (4-19); BUN/Creat Ratio 11.9 RATIO (10-20); Calcium,Total 9.5 mg/dL (7.6-11.0); Carbon Dioxide 24.0 mmol/L (21.0-32.0); Chloride 104 mmol/L (98-108); Estimated Creatinine Clearance 79.85 ml/min (50-250); Glucose 99 mg/dL (70-99); Potassium 3.7 mmol/L (3.3-5.1)
[2024-12-12] VITALS (9 sets, daily range): BP systolic 109–135; BP diastolic 46–83; PULSE 73–96; RESP 18–20; TEMP 36.6–37; O2SAT 97–100
[2024-12-12] MEDS: 0.9% Normal Saline (1000mL) 1,000 ML 150 ML IV (00:22)
== END 2024-12-12 03:16 | disposition home or self-care (01) ==
PROVIDERS: Emergency Provider Emergency Medicine; PCP Family Medicine; Visit Provider Emergency Medicine
DX: L02.211 Cutaneous abscess of abdominal wall (principal); I10 Essential (primary) hypertension; Z90.710 Acquired absence of both cervix and uterus; R53.81 Other malaise; R53.83 Other fatigue; Z86.14 Personal history of Methicillin resistant Staphylococcus aureus infection; Z90.49 Acquired absence of other specified parts of digestive tract; E66.9 Obesity, unspecified
CPT/HCPCS: 10060; 80048; 83605; 85025; 87040; 99152; 99283; A4216